=== PATIENT | female | born 1935 | race Caucasian/White ===

== ENCOUNTER → 2018-06-16 14:43 | Outpatient (CLI) | payer MEDICARE, SELFPAY ==
[2018-06-23 20:09] LABS: QNTFERON TB Ag Minus Nil Value < 0 IU/mL (.); QNTFERON TB Ag Value 0.05 IU/mL (.); QNTFERON TB Mitogen Value > 10.00 IU/mL (.); QNTFERON TB Nil Value 0.07 IU/mL (.)
[2018-06-24 11:32] LABS: QNTIFERON TB Gold Negative (Negative)
== END ==
PROVIDERS: Family Provider Internal Medicine; PCP Internal Medicine; Visit Provider Nurse Practitioner Family
DX: L40.0 Psoriasis vulgaris (principal); Z79.899 Other long term (current) drug therapy
CPT/HCPCS: 36415; 86480

== ENCOUNTER → 2020-09-06 10:15 | Outpatient (CLI) | payer MEDICARE, SELFPAY ==
[2020-09-06 12:19] LABS: Erythrocyte Sedimentation Rate 29 mm/hr (0-30)
[2020-09-06 12:22] LABS: Absolute Lymphocyte Count 2.05 X10^3/uL (0.83-4.51); Absolute Neutrophil Count 5.8 X10^3/uL (2.0-7.7); Basophil# 0.03 X10^3/uL; Basophil% 0.3 % (0-1); Eosinophils% 2.2 % (0-5); Hematocrit 39.9 % (37-47); Hemoglobin 12.1 g/dL (12.0-15.0); Lymphocyte # 2.05 X10^3/ul (4.0); Lymphocyte % 22.7 % (19-41); Mean Corp Hgb Conc 30.3 g/dL (32-36); Mean Corpuscular Hgb 28.1 pg (27.0-32.0); Mean Corpuscular Volume 92.8 fL (81-99); Mean Platelet Vol. 10.1 fl (6.2-12.0); Monocyte# 0.97 X10^3/uL; Monocyte% 10.8 % (0-10); NRBC Flagged by Analyzer 0 % (0-5); Neutrophil # 5.75 X10^3/uL (2.7-7.7); Neutrophil % 63.8 % (47-70); Platelet Count 338 K/mm3 (150-450); RBC Distribution Width CV 13.8 % (11.6-14.6); RBC Distribution Width SD 46.5 fl (35.1-43.9)
[2020-09-06 12:31] LABS: ALB/GLOB Ratio 0.7 RATIO (0.9-2.4); AST(SGOT) 11 U/L (15-37); Alanine Aminotransfer ALT/SGPT 15 U/L (13-56); Albumin, Serum 3.4 g/dL (3.2-5.0); Alkaline Phosphatase 86 U/L (45-117); Anion Gap 6 (5-15); BUN 16 mg/dL (7-18); BUN/Creat Ratio 21.1 RATIO (10-20); Chloride 98 mmol/L (98-107); Creatinine, Serum 0.76 mg/dL (0.55-1.02); EST Glomerular Filtration Rate 77 mL/min (>60); Est Glom Filt Rate - Afr Amer 93 mL/min (>60); Globulin 4.6 g/dL (2.2-4.2); Glucose 127 mg/dL (74-106); Potassium 4.5 mmol/L (3.5-5.1); Rheumatoid Factor < 10.0 IU/mL (<15); Sodium Level 133 mmol/L (136-145)
[2020-09-06 13:15] LABS: Hepatitis B Surface Antibody Non-Reactive; Hepatitis B Surface Antigen Non-Reactive (Nonreactive); Hepatitis C Antibody Non-Reactive (Nonreactive)
[2020-09-09 10:48] LABS: CCP IgG Antibodies 3 units (0-19); Hepatitis B Core AB IgM Negative (Negative)
[2020-09-09 12:51] LABS: ANTINUCLEAR ANTIBODIES DIRECT Negative (Negative)
== END ==
PROVIDERS: PCP Internal Medicine; Referring Provider Internal Medicine Rheumatology; Visit Provider Internal Medicine Rheumatology
DX: L40.59 Other psoriatic arthropathy (principal); L40.8 Other psoriasis; M19.041 Primary osteoarthritis, right hand; M21.41 Flat foot [pes planus] (acquired), right foot; I10 Essential (primary) hypertension; E11.9 Type 2 diabetes mellitus without complications; E78.5 Hyperlipidemia, unspecified
CPT/HCPCS: 36415; 80053; 85025; 85652; 86038; 86140; 86200; 86431; 86705; 86706; 86803; 87340

== ENCOUNTER → 2020-09-09 17:00 | Outpatient (CLI) | payer MEDICARE, SELFPAY ==
[2020-09-10 11:36] LABS: Pathologist Comment May follow
[2020-09-10 11:43] LABS: Synovial Fld Mononuclear WBC % 16.7 %; Synovial Fld Polynuclear WBC # 15.732 10^3/uL; Synovial Fld Polynuclear WBC % 83.3 %
[2020-09-10 11:51] LABS: RBC /Synovial Fluid 0.003 10^6/uL (0)
[2020-09-10 11:52] LABS: AUTO B FLUID DILUENT BKGD CT WBC <0.1 RBC <0.01 (W<.1,R<.01)
[2020-09-10 11:53] LABS: Appearance /Synovial Fluid Sl Cl (CLEAR); Color / Synovial Fluid Yellow (Pale Yellow); Source / Synovial Fluid KNEE; Source- Body Fluid SYNOVIAL
[2020-09-10 11:54] LABS: Lymph 2 %; Neutrophil 73 % (0-25); Other Cell /Synovial Fluid 25 %
[2020-09-11 13:38] LABS: Pathologist Review Reviewed
== END ==
PROVIDERS: PCP Internal Medicine; Visit Provider Internal Medicine Rheumatology
DX: L40.59 Other psoriatic arthropathy (principal); L40.8 Other psoriasis; M19.041 Primary osteoarthritis, right hand; M25.562 Pain in left knee; M17.0 Bilateral primary osteoarthritis of knee; M21.41 Flat foot [pes planus] (acquired), right foot; I10 Essential (primary) hypertension; E11.9 Type 2 diabetes mellitus without complications; E78.5 Hyperlipidemia, unspecified
CPT/HCPCS: 87070; 87075; 87205; 89050; 89051; 89060

== ENCOUNTER → 2020-11-05 12:22 | Outpatient (CLI) | payer MEDICARE, SELFPAY ==
[2020-11-05 15:32] LABS: Absolute Lymphocyte Count 2.07 X10^3/uL (0.83-4.51); Absolute Neutrophil Count 4.2 X10^3/uL (2.0-7.7); Basophil# 0.03 X10^3/uL; Basophil% 0.4 % (0-1); Eosinophil# 0.23 X10^3/uL; Eosinophils% 3.2 % (0-5); Hematocrit 37.7 % (37-47); Hemoglobin 11.5 g/dL (12.0-15.0); Lymphocyte # 2.07 X10^3/ul (4.0); Lymphocyte % 28.4 % (19-41); Mean Corp Hgb Conc 30.5 g/dL (32-36); Mean Corpuscular Hgb 28.3 pg (27.0-32.0); Mean Corpuscular Volume 92.9 fL (81-99); Mean Platelet Vol. 10.2 fl (6.2-12.0); Monocyte# 0.74 X10^3/uL; Monocyte% 10.2 % (0-10); NRBC Flagged by Analyzer 0 % (0-5); Neutrophil # 4.18 X10^3/uL (2.7-7.7); Neutrophil % 57.4 % (47-70); Platelet Count 335 K/mm3 (150-450); RBC Distribution Width CV 15.6 % (11.6-14.6); RBC Distribution Width SD 52.1 fl (35.1-43.9); Red Blood Count 4.06 M/mm3 (4.2-5.4); White Blood Count 7.3 K/mm3 (4.4-11.0)
[2020-11-05 15:43] LABS: ALB/GLOB Ratio 0.8 RATIO (0.9-2.4); AST(SGOT) 10 U/L (15-37); Alanine Aminotransfer ALT/SGPT 18 U/L (13-56); Albumin, Serum 3.4 g/dL (3.2-5.0); Alkaline Phosphatase 80 U/L (45-117); Anion Gap 2 (5-15); BUN 17 mg/dL (7-18); BUN/Creat Ratio 24.1 RATIO (10-20); Calcium,Total 10.2 mg/dL (8.5-10.1); Chloride 103 mmol/L (98-107); Creatinine, Serum 0.71 mg/dL (0.55-1.02); EST Glomerular Filtration Rate 84 mL/min (>60); Est Glom Filt Rate - Afr Amer 101 mL/min (>60); Globulin 4.3 g/dL (2.2-4.2); Glucose 69 mg/dL (74-106); Potassium 3.9 mmol/L (3.5-5.1); Protein, Total 7.7 g/dL (6.4-8.2); Sodium Level 136 mmol/L (136-145)
== END ==
PROVIDERS: PCP Internal Medicine; Referring Provider Internal Medicine Rheumatology; Visit Provider Internal Medicine Rheumatology
DX: L40.59 Other psoriatic arthropathy (principal); L40.8 Other psoriasis; M19.041 Primary osteoarthritis, right hand; M25.562 Pain in left knee; M17.0 Bilateral primary osteoarthritis of knee; M21.41 Flat foot [pes planus] (acquired), right foot; I10 Essential (primary) hypertension; E11.9 Type 2 diabetes mellitus without complications; E78.5 Hyperlipidemia, unspecified; Z79.899 Other long term (current) drug therapy
CPT/HCPCS: 36415; 80053; 85025

== ENCOUNTER → 2021-01-31 13:31 | Outpatient (CLI) | payer MEDICARE, SELFPAY ==
[2021-01-31 15:25] LABS: Absolute Lymphocyte Count 1.59 X10^3/uL (0.83-4.51); Absolute Neutrophil Count 4.5 X10^3/uL (2.0-7.7); Basophil# 0.03 X10^3/uL; Basophil% 0.4 % (0-1); Eosinophil# 0.18 X10^3/uL; Eosinophils% 2.7 % (0-5); Hematocrit 38.1 % (37-47); Hemoglobin 11.3 g/dL (12.0-15.0); Lymphocyte # 1.59 X10^3/ul (4.0); Lymphocyte % 23.8 % (19-41); Mean Corp Hgb Conc 29.7 g/dL (32-36); Mean Corpuscular Hgb 28.5 pg (27.0-32.0); Mean Corpuscular Volume 96.2 fL (81-99); Mean Platelet Vol. 9.9 fl (6.2-12.0); Monocyte# 0.37 X10^3/uL; Monocyte% 5.5 % (0-10); NRBC Flagged by Analyzer 0 % (0-5); Neutrophil # 4.48 X10^3/uL (2.7-7.7); Neutrophil % 67.3 % (47-70); Platelet Count 385 K/mm3 (150-450); RBC Distribution Width CV 14.6 % (11.6-14.6); RBC Distribution Width SD 51.4 fl (35.1-43.9); Red Blood Count 3.96 M/mm3 (4.2-5.4); White Blood Count 6.7 K/mm3 (4.4-11.0)
[2021-01-31 15:40] LABS: ALB/GLOB Ratio 0.8 RATIO (0.9-2.4); AST(SGOT) 13 U/L (15-37); Alanine Aminotransfer ALT/SGPT 17 U/L (13-56); Albumin, Serum 3.4 g/dL (3.2-5.0); Alkaline Phosphatase 88 U/L (45-117); Anion Gap 7 (5-15); BUN 16 mg/dL (7-18); BUN/Creat Ratio 20.5 RATIO (10-20); Calcium,Total 9.8 mg/dL (8.5-10.1); Chloride 99 mmol/L (98-107); Creatinine, Serum 0.78 mg/dL (0.55-1.02); EST Glomerular Filtration Rate 75 mL/min (>60); Est Glom Filt Rate - Afr Amer 90 mL/min (>60); Globulin 4.3 g/dL (2.2-4.2); Glucose 156 mg/dL (74-106); Potassium 3.9 mmol/L (3.5-5.1); Protein, Total 7.7 g/dL (6.4-8.2); Sodium Level 135 mmol/L (136-145)
== END ==
PROVIDERS: PCP Internal Medicine; Referring Provider Internal Medicine Rheumatology; Visit Provider Internal Medicine Rheumatology
DX: L40.59 Other psoriatic arthropathy (principal); L40.8 Other psoriasis; M19.041 Primary osteoarthritis, right hand; M17.0 Bilateral primary osteoarthritis of knee; M21.41 Flat foot [pes planus] (acquired), right foot; I10 Essential (primary) hypertension; E11.9 Type 2 diabetes mellitus without complications; E78.5 Hyperlipidemia, unspecified; Z79.899 Other long term (current) drug therapy
CPT/HCPCS: 36415; 80053; 85025

== ENCOUNTER → 2021-04-01 14:05 | Outpatient (CLI) | payer MEDICARE, SELFPAY ==
[2021-04-01 15:27] LABS: Absolute Lymphocyte Count 1.99 X10^3/uL (0.83-4.51); Absolute Neutrophil Count 3.5 X10^3/uL (2.0-7.7); Basophil# 0.03 X10^3/uL; Basophil% 0.4 % (0-1); Eosinophil# 0.31 X10^3/uL; Eosinophils% 4.6 % (0-5); Hematocrit 37.1 % (37-47); Hemoglobin 11.3 g/dL (12.0-15.0); Lymphocyte # 1.99 X10^3/ul (0.83-4.51); Lymphocyte % 29.4 % (19-41); Mean Corp Hgb Conc 30.5 g/dL (32-36); Mean Corpuscular Volume 95.1 fL (81-99); Mean Platelet Vol. 10.3 fl (6.2-12.0); Monocyte% 13.3 % (0-10); NRBC Flagged by Analyzer 0 % (0-5); Neutrophil # 3.53 X10^3/uL (2.7-7.7); Platelet Count 318 K/mm3 (150-450); RBC Distribution Width CV 14.9 % (11.6-14.6); RBC Distribution Width SD 50.6 fl (35.1-43.9); White Blood Count 6.8 K/mm3 (4.4-11.0)
[2021-04-01 16:08] LABS: ALB/GLOB Ratio 0.8 RATIO (0.9-2.4); AST(SGOT) 13 U/L (15-37); Alanine Aminotransfer ALT/SGPT 18 U/L (13-56); Albumin, Serum 3.4 g/dL (3.2-5.0); Alkaline Phosphatase 77 U/L (45-117); Anion Gap 6 (5-15); BUN 18 mg/dL (7-18); Chloride 101 mmol/L (98-107); Creatinine, Serum 0.78 mg/dL (0.55-1.02); EST Glomerular Filtration Rate 74 mL/min (>60); Est Glom Filt Rate - Afr Amer 90 mL/min (>60); Globulin 4.4 g/dL (2.2-4.2); Glucose 79 mg/dL (74-106); Potassium 4.4 mmol/L (3.5-5.1); Protein, Total 7.8 g/dL (6.4-8.2); Sodium Level 134 mmol/L (136-145)
== END ==
PROVIDERS: PCP Internal Medicine; Referring Provider Internal Medicine Rheumatology; Visit Provider Internal Medicine Rheumatology
DX: L40.59 Other psoriatic arthropathy (principal); L40.8 Other psoriasis; M19.041 Primary osteoarthritis, right hand; M17.0 Bilateral primary osteoarthritis of knee; M21.41 Flat foot [pes planus] (acquired), right foot; I10 Essential (primary) hypertension; E11.9 Type 2 diabetes mellitus without complications; E78.5 Hyperlipidemia, unspecified; Z79.899 Other long term (current) drug therapy
CPT/HCPCS: 36415; 80053; 85025

== ENCOUNTER → 2021-06-17 14:41 | Outpatient (CLI) | payer MEDICARE, SELFPAY ==
[2021-06-17 17:49] LABS: Absolute Lymphocyte Count 1.94 X10^3/uL (0.83-4.51); Absolute Neutrophil Count 2.9 X10^3/uL (2.0-7.7); Basophil# 0.04 X10^3/uL; Basophil% 0.7 % (0-1); Eosinophil# 0.17 X10^3/uL; Hematocrit 35.3 % (37-47); Hemoglobin 10.7 g/dL (12.0-15.0); Lymphocyte # 1.94 X10^3/ul (0.83-4.51); Lymphocyte % 34.6 % (19-41); Mean Corp Hgb Conc 30.3 g/dL (32-36); Mean Corpuscular Hgb 29.2 pg (27.0-32.0); Mean Corpuscular Volume 96.4 fL (81-99); Mean Platelet Vol. 9.8 fl (6.2-12.0); Monocyte# 0.59 X10^3/uL; Monocyte% 10.5 % (0-10); NRBC Flagged by Analyzer 0 % (0-5); Neutrophil # 2.85 X10^3/uL (2.7-7.7); Platelet Count 321 K/mm3 (150-450); RBC Distribution Width CV 15.6 % (11.6-14.6); RBC Distribution Width SD 55.2 fl (35.1-43.9); Red Blood Count 3.66 M/mm3 (4.2-5.4); White Blood Count 5.6 K/mm3 (4.4-11.0)
[2021-06-17 18:28] LABS: ALB/GLOB Ratio 0.9 RATIO (0.9-2.4); AST(SGOT) 21 U/L (15-37); Alanine Aminotransfer ALT/SGPT 26 U/L (13-56); Albumin, Serum 3.5 g/dL (3.2-5.0); Alkaline Phosphatase 66 U/L (45-117); Anion Gap 6 (5-15); BUN 19 mg/dL (7-18); Calcium,Total 9.9 mg/dL (8.5-10.1); Chloride 102 mmol/L (98-107); Creatinine, Serum 0.76 mg/dL (0.55-1.02); EST Glomerular Filtration Rate 77 mL/min (>60); Est Glom Filt Rate - Afr Amer 93 mL/min (>60); Globulin 3.7 g/dL (2.2-4.2); Glucose 95 mg/dL (74-106); Potassium 4.1 mmol/L (3.5-5.1); Protein, Total 7.2 g/dL (6.4-8.2); Sodium Level 137 mmol/L (136-145)
== END ==
PROVIDERS: PCP Internal Medicine; Referring Provider Internal Medicine Rheumatology; Visit Provider Internal Medicine Rheumatology
DX: L40.59 Other psoriatic arthropathy (principal); L40.8 Other psoriasis; M19.041 Primary osteoarthritis, right hand; M17.0 Bilateral primary osteoarthritis of knee; M21.41 Flat foot [pes planus] (acquired), right foot; Z79.899 Other long term (current) drug therapy
CPT/HCPCS: 36415; 80053; 85025

== ENCOUNTER → 2021-09-26 12:15 | Outpatient (CLI) | payer MEDICARE, SELFPAY ==
[2021-09-26 15:03] LABS: Absolute Lymphocyte Count 1.72 X10^3/uL (0.83-4.51); Absolute Neutrophil Count 4.7 X10^3/uL (2.0-7.7); Basophil# 0.02 X10^3/uL; Basophil% 0.3 % (0-1); Eosinophil# 0.13 X10^3/uL; Eosinophils% 1.8 % (0-5); Hematocrit 36.5 % (37-47); Hemoglobin 10.9 g/dL (12.0-15.0); Lymphocyte # 1.72 X10^3/ul (0.83-4.51); Lymphocyte % 23.2 % (19-41); Mean Corp Hgb Conc 29.9 g/dL (32-36); Mean Corpuscular Hgb 28.9 pg (27.0-32.0); Mean Corpuscular Volume 96.8 fL (81-99); Mean Platelet Vol. 10.8 fl (6.2-12.0); Monocyte# 0.79 X10^3/uL; Monocyte% 10.7 % (0-10); NRBC Flagged by Analyzer 0 % (0-5); Neutrophil # 4.72 X10^3/uL (2.7-7.7); Neutrophil % 63.7 % (47-70); POSITIVE COUNT YES; Platelet Count 200 K/mm3 (150-450); RBC Distribution Width CV 14.8 % (11.6-14.6); RBC Distribution Width SD 51.2 fl (35.1-43.9); Red Blood Count 3.77 M/mm3 (4.2-5.4); White Blood Count 7.4 K/mm3 (4.4-11.0)
[2021-09-26 15:15] LABS: ALB/GLOB Ratio 0.7 RATIO (0.9-2.4); AST(SGOT) 15 U/L (15-37); Alanine Aminotransfer ALT/SGPT 17 U/L (13-56); Alkaline Phosphatase 74 U/L (45-117); Anion Gap 4 (5-15); BUN 23 mg/dL (7-18); BUN/Creat Ratio 28.3 RATIO (10-20); Calcium,Total 9.6 mg/dL (8.5-10.1); Chloride 101 mmol/L (98-107); Creatinine, Serum 0.81 mg/dL (0.55-1.02); EST Glomerular Filtration Rate 71 mL/min (>60); Est Glom Filt Rate - Afr Amer 86 mL/min (>60); Globulin 4.1 g/dL (2.2-4.2); Glucose 119 mg/dL (74-106); Potassium 4.6 mmol/L (3.5-5.1); Protein, Total 7.1 g/dL (6.4-8.2); Sodium Level 132 mmol/L (136-145)
[2021-09-26 15:25] LABS: Differential Indicated SCAN CRITERIA MET
[2021-09-26 15:26] LABS: Platelet Estimate ADEQUATE (ADEQ); Red Cell Morphology NORM C+C NORMAL (NORM C&C)
== END ==
PROVIDERS: PCP Internal Medicine; Referring Provider Internal Medicine Rheumatology; Visit Provider Internal Medicine Rheumatology
DX: L40.59 Other psoriatic arthropathy (principal); L40.8 Other psoriasis; M19.041 Primary osteoarthritis, right hand; M17.0 Bilateral primary osteoarthritis of knee; M21.41 Flat foot [pes planus] (acquired), right foot; I10 Essential (primary) hypertension; E11.9 Type 2 diabetes mellitus without complications; E78.5 Hyperlipidemia, unspecified; Z79.899 Other long term (current) drug therapy
CPT/HCPCS: 36415; 80053; 85025

== ENCOUNTER 2021-12-05 14:29 | Outpatient (CLI) | payer MEDICARE, SELFPAY ==
[2021-12-05 17:27] LABS: Absolute Lymphocyte Count 1.59 X10^3/uL (0.83-4.51); Absolute Neutrophil Count 2.2 X10^3/uL (2.0-7.7); Basophil# 0.03 X10^3/uL; Basophil% 0.6 % (0-1); Eosinophil# 0.13 X10^3/uL; Eosinophils% 2.7 % (0-5); Hematocrit 42.6 % (37-47); Hemoglobin 12.9 g/dL (12.0-15.0); Lymphocyte # 1.59 X10^3/ul (0.83-4.51); Lymphocyte % 33.1 % (19-41); Mean Corp Hgb Conc 30.3 g/dL (32-36); Mean Corpuscular Hgb 29.2 pg (27.0-32.0); Mean Corpuscular Volume 96.4 fL (81-99); Mean Platelet Vol. 10.1 fl (6.2-12.0); Monocyte# 0.81 X10^3/uL; Monocyte% 16.8 % (0-10); NRBC Flagged by Analyzer 0 % (0-5); Neutrophil # 2.23 X10^3/uL (2.7-7.7); Neutrophil % 46.4 % (47-70); Platelet Count 305 K/mm3 (150-450); RBC Distribution Width CV 14.8 % (11.6-14.6); RBC Distribution Width SD 52.3 fl (35.1-43.9); Red Blood Count 4.42 M/mm3 (4.2-5.4); White Blood Count 4.8 K/mm3 (4.4-11.0)
[2021-12-05 17:45] LABS: ALB/GLOB Ratio 0.8 RATIO (0.9-2.4); AST(SGOT) 15 U/L (15-37); Alanine Aminotransfer ALT/SGPT 17 U/L (13-56); Albumin, Serum 3.7 g/dL (3.2-5.0); Alkaline Phosphatase 85 U/L (45-117); Anion Gap 5 (5-15); BUN 20 mg/dL (7-18); BUN/Creat Ratio 25.2 RATIO (10-20); Calcium,Total 10.3 mg/dL (8.5-10.1); Chloride 101 mmol/L (98-107); Creatinine, Serum 0.79 mg/dL (0.55-1.02); EST Glomerular Filtration Rate 73 mL/min (>60); Est Glom Filt Rate - Afr Amer 88 mL/min (>60); Globulin 4.4 g/dL (2.2-4.2); Glucose 79 mg/dL (74-106); Potassium 4.5 mmol/L (3.5-5.1); Protein, Total 8.1 g/dL (6.4-8.2); Sodium Level 133 mmol/L (136-145)
== END 2021-12-05 23:59 | disposition short-term general hospital (02) ==
LOC: MTLAB 14:30
PROVIDERS: PCP Internal Medicine; Referring Provider Internal Medicine Rheumatology; Visit Provider Internal Medicine Rheumatology
DX: L40.59 Other psoriatic arthropathy (principal); E11.9 Type 2 diabetes mellitus without complications; L40.8 Other psoriasis; M19.041 Primary osteoarthritis, right hand; M17.0 Bilateral primary osteoarthritis of knee; M21.41 Flat foot [pes planus] (acquired), right foot; M21.42 Flat foot [pes planus] (acquired), left foot; I10 Essential (primary) hypertension; E78.5 Hyperlipidemia, unspecified; Z79.899 Other long term (current) drug therapy
CPT/HCPCS: 36415; 80053; 85025

== ENCOUNTER 2022-02-23 12:34 | Outpatient (CLI) | payer MEDICARE, SELFPAY ==
[2022-02-23 15:00] LABS: Absolute Lymphocyte Count 1.94 X10^3/uL (0.83-4.51); Absolute Neutrophil Count 3.7 X10^3/uL (2.0-7.7); Basophil# 0.04 X10^3/uL; Basophil% 0.6 % (0-1); Eosinophil# 0.14 X10^3/uL; Eosinophils% 2.2 % (0-5); Hematocrit 37.6 % (37-47); Hemoglobin 11.8 g/dL (12.0-15.0); Lymphocyte # 1.94 X10^3/ul (0.83-4.51); Lymphocyte % 29.8 % (19-41); Mean Corp Hgb Conc 31.4 g/dL (32-36); Mean Corpuscular Hgb 30.6 pg (27.0-32.0); Mean Corpuscular Volume 97.4 fL (81-99); Mean Platelet Vol. 9.9 fl (6.2-12.0); Monocyte# 0.66 X10^3/uL; Monocyte% 10.1 % (0-10); NRBC Flagged by Analyzer 0 % (0-5); Neutrophil # 3.71 X10^3/uL (2.7-7.7); Platelet Count 260 K/mm3 (150-450); RBC Distribution Width CV 15.3 % (11.6-14.6); RBC Distribution Width SD 54.6 fl (35.1-43.9); Red Blood Count 3.86 M/mm3 (4.2-5.4); White Blood Count 6.5 K/mm3 (4.4-11.0)
[2022-02-23 15:46] LABS: AST(SGOT) 14 U/L (15-37); Alanine Aminotransfer ALT/SGPT 20 U/L (13-56); Albumin, Serum 3.7 g/dL (3.2-5.0); Alkaline Phosphatase 76 U/L (45-117); Anion Gap 4 (5-15); BUN 22 mg/dL (7-18); BUN/Creat Ratio 28.4 RATIO (10-20); Calcium,Total 9.5 mg/dL (8.5-10.1); Chloride 101 mmol/L (98-107); Creatinine, Serum 0.78 mg/dL (0.55-1.02); EST Glomerular Filtration Rate 75 mL/min (>60); Est Glom Filt Rate - Afr Amer 91 mL/min (>60); Globulin 3.8 g/dL (2.2-4.2); Glucose 86 mg/dL (74-106); Potassium 4.4 mmol/L (3.5-5.1); Protein, Total 7.5 g/dL (6.4-8.2); Sodium Level 135 mmol/L (136-145)
== END 2022-02-23 23:59 | disposition home or self-care (01) ==
LOC: MTLAB 12:35
PROVIDERS: PCP Internal Medicine; Referring Provider Internal Medicine Rheumatology; Visit Provider Internal Medicine Rheumatology
DX: L40.59 Other psoriatic arthropathy (principal); E11.9 Type 2 diabetes mellitus without complications; L40.8 Other psoriasis; M19.041 Primary osteoarthritis, right hand; M17.0 Bilateral primary osteoarthritis of knee; M21.41 Flat foot [pes planus] (acquired), right foot; I10 Essential (primary) hypertension; Z79.899 Other long term (current) drug therapy
CPT/HCPCS: 36415; 80053; 85025

== ENCOUNTER → 2022-05-27 | Outpatient (CLI) | payer MEDICARE, SELFPAY ==
[2022-05-27 15:25] LABS: Absolute Lymphocyte Count 1.43 X10^3/uL (0.83-4.51); Absolute Neutrophil Count 4.3 X10^3/uL (2.0-7.7); Basophil# 0.03 X10^3/uL; Basophil% 0.4 % (0-1); Eosinophil# 0.15 X10^3/uL; Eosinophils% 2.2 % (0-5); Hematocrit 37.8 % (37-47); Hemoglobin 11.6 g/dL (12.0-15.0); Lymphocyte # 1.43 X10^3/ul (0.83-4.51); Lymphocyte % 21.1 % (19-41); Mean Corp Hgb Conc 30.7 g/dL (32-36); Mean Corpuscular Hgb 31.9 pg (27.0-32.0); Mean Corpuscular Volume 103.8 fL (81-99); Mean Platelet Vol. 10.2 fl (6.2-12.0); Monocyte# 0.81 X10^3/uL; NRBC Flagged by Analyzer 0 % (0-5); Neutrophil # 4.33 X10^3/uL (2.7-7.7); Platelet Count 255 K/mm3 (150-450); RBC Distribution Width CV 13.4 % (11.6-14.6); RBC Distribution Width SD 51.5 fl (35.1-43.9); Red Blood Count 3.64 M/mm3 (4.2-5.4); White Blood Count 6.8 K/mm3 (4.4-11.0)
[2022-05-27 16:04] LABS: AST(SGOT) 14 U/L (15-37); Alanine Aminotransfer ALT/SGPT 17 U/L (13-56); Albumin, Serum 3.6 g/dL (3.2-5.0); Alkaline Phosphatase 91 U/L (45-117); Anion Gap 4 (5-15); BUN 14 mg/dL (7-18); BUN/Creat Ratio 18.3 RATIO (10-20); Calcium,Total 9.7 mg/dL (8.5-10.1); Chloride 101 mmol/L (98-107); Creatinine, Serum 0.76 mg/dL (0.55-1.02); EST Glomerular Filtration Rate 76 mL/min (>60); Est Glom Filt Rate - Afr Amer 92 mL/min (>60); Globulin 3.6 g/dL (2.2-4.2); Glucose 81 mg/dL (74-106); Potassium 4.4 mmol/L (3.5-5.1); Protein, Total 7.2 g/dL (6.4-8.2); Sodium Level 133 mmol/L (136-145)
== END | disposition home or self-care (01) ==
LOC: MTLAB 13:26
PROVIDERS: PCP Internal Medicine; Referring Provider Internal Medicine Rheumatology; Visit Provider Internal Medicine Rheumatology
DX: L40.59 Other psoriatic arthropathy (principal); E11.9 Type 2 diabetes mellitus without complications; L40.8 Other psoriasis; M19.041 Primary osteoarthritis, right hand; M17.0 Bilateral primary osteoarthritis of knee; M21.41 Flat foot [pes planus] (acquired), right foot; I10 Essential (primary) hypertension; E78.5 Hyperlipidemia, unspecified; Z79.899 Other long term (current) drug therapy
CPT/HCPCS: 36415; 80053; 85025

== ENCOUNTER → 2022-06-01 | Outpatient (CLI) | payer MEDICARE, SELFPAY ==
[2022-06-01 19:06] LABS: Vitamin B12 215 pg/mL (211-911)
[2022-06-01 21:39] LABS: Ferritin 67 ng/mL (8-252); Iron 58 ug/dL (50-170); Thyroid Stim Hormone (TSH) 2.34 uIU/mL (0.358-3.74)
[2022-06-01 23:31] LABS: Folates, (Folic Acid) > 100.00 ng/mL (3.1-55.4)
[2022-06-05 07:56] LABS: Vitamin D 1,25-Dihydroxy 61.5 pg/mL (24.8-81.5)
[2022-06-08 07:07] LABS: Vitamin B1, Thiamine 112.2 nmol/L (66.5-200.0)
[2022-06-08 08:32] LABS: KEPPRA (LEVETIRACETAM) <1.0 ug/mL (10.0-40.0)
== END | disposition home or self-care (01) ==
PROVIDERS: PCP Internal Medicine; Referring Provider Psychiatry & Neurology Neurology; Visit Provider Psychiatry & Neurology Neurology
DX: Z86.2 Personal history of diseases of the blood and blood-forming organs and certain disorders involving the immune mechanism (principal); E55.9 Vitamin D deficiency, unspecified; G62.9 Polyneuropathy, unspecified
CPT/HCPCS: 36415; 80177; 82607; 82652; 82728; 82746; 83540; 84425; 84443

== ENCOUNTER → 2022-06-12 | Outpatient (CLI) | payer MEDICARE, SELFPAY ==
--- NOTE | 2022-06-12 15:28 | MRI_ITS ---
STUDY: MRI BRAIN WITH AND WITHOUT CONTRAST REASON FOR EXAM: Female, 86 years old. Evaluate for normal pressure hydrocephalus TECHNIQUE: Standardized multiplanar fat and water weighted pulse sequences were obtained. 13CC IV DOTAREM was administered for the contrast portion of the examination. COMPARISON: None. FINDINGS: No intracranial mass, mass effect or midline shift. No hemorrhage, territorial infarct or acute ischemia. There is mild cerebral atrophy with widening of the extra-axial spaces and ventricular dilatation. There are a limited number of small white matter hyperintensities, distributed throughout the deep white matter tracts of the cerebral hemispheres, consistent with mild chronic white matter ischemic changes. Normal bilateral basal ganglia. Normal thalami. There is no extra-axial fluid accumulation. Normal flow voids within the major intracranial circulation suggesting patency by spin echo criteria. There is no enhancing intra-axial or extra-axial abnormality. Normal sella turcica, pituitary gland, infundibular stalk, optic chiasm and hypothalamus. Normal midbrain, olga lidia and medulla. Normal cerebellum. Normal basal cisterns. Normal bilateral temporal bones. Normal bilateral internal auditory canals. Mild mucosal thickening in the maxillary sinuses. Normal calvarium and skull base. Normal visualized soft tissue structures. MRI/Brain W/WO Contrast IMPRESSION: No acute findings. No evidence of normal pressure hydrocephalus. Mild microvascular ischemic changes. Involutional changes consistent with the patient''s age. Electronically Signed: Kasandra Howard MD at 23:34 EDT Reading Location ID and State: [id number] / Tel , Service support ,
== END | disposition home or self-care (01) ==
LOC: MRI 15:28
PROVIDERS: PCP Internal Medicine; Visit Provider Psychiatry & Neurology Neurology
DX: R26.9 Unspecified abnormalities of gait and mobility (principal); G31.84 Mild cognitive impairment of uncertain or unknown etiology
CPT/HCPCS: 70553; A9575

== ENCOUNTER → 2022-08-24 | Outpatient (CLI) | payer MEDICARE, SELFPAY ==
[2022-08-24 15:44] LABS: Absolute Lymphocyte Count 1.68 X10^3/uL (0.83-4.51); Absolute Neutrophil Count 2.9 X10^3/uL (2.0-7.7); Basophil# 0.02 X10^3/uL; Basophil% 0.4 % (0-1); Hematocrit 37.8 % (37-47); Hemoglobin 11.6 g/dL (12.0-15.0); Lymphocyte # 1.68 X10^3/ul (0.83-4.51); Mean Corp Hgb Conc 30.7 g/dL (32-36); Mean Corpuscular Hgb 31.3 pg (27.0-32.0); Mean Corpuscular Volume 101.9 fL (81-99); Mean Platelet Vol. 9.9 fl (6.2-12.0); Monocyte# 0.42 X10^3/uL; Monocyte% 8.3 % (0-10); NRBC Flagged by Analyzer 0 % (0-5); Neutrophil # 2.86 X10^3/uL (2.7-7.7); Neutrophil % 56.1 % (47-70); Platelet Count 278 K/mm3 (150-450); RBC Distribution Width CV 14.4 % (11.6-14.6); RBC Distribution Width SD 51.7 fl (35.1-43.9); Red Blood Count 3.71 M/mm3 (4.2-5.4); White Blood Count 5.1 K/mm3 (4.4-11.0)
[2022-08-24 16:48] LABS: ALB/GLOB Ratio 0.9 RATIO (0.9-2.4); AST(SGOT) 37 U/L (15-37); Alanine Aminotransfer ALT/SGPT 39 U/L (13-56); Albumin, Serum 3.7 g/dL (3.2-5.0); Alkaline Phosphatase 82 U/L (45-117); Anion Gap 4 (5-15); BUN 17 mg/dL (7-18); BUN/Creat Ratio 23.6 RATIO (10-20); Calcium,Total 11.1 mg/dL (8.5-10.1); Chloride 102 mmol/L (98-107); Creatinine, Serum 0.72 mg/dL (0.55-1.02); EST Glomerular Filtration Rate 82 mL/min (>60); Est Glom Filt Rate - Afr Amer 99 mL/min (>60); Globulin 3.9 g/dL (2.2-4.2); Glucose 86 mg/dL (74-106); Potassium 4.1 mmol/L (3.5-5.1); Protein, Total 7.6 g/dL (6.4-8.2); Sodium Level 135 mmol/L (136-145)
== END | disposition home or self-care (01) ==
LOC: MTLAB 13:29
PROVIDERS: PCP Internal Medicine; Referring Provider Internal Medicine Rheumatology; Visit Provider Internal Medicine Rheumatology
DX: L40.59 Other psoriatic arthropathy (principal); E11.9 Type 2 diabetes mellitus without complications; L40.8 Other psoriasis; M19.041 Primary osteoarthritis, right hand; M17.0 Bilateral primary osteoarthritis of knee; M21.41 Flat foot [pes planus] (acquired), right foot; I10 Essential (primary) hypertension; E78.5 Hyperlipidemia, unspecified; Z79.899 Other long term (current) drug therapy
CPT/HCPCS: 36415; 80053; 85025

== ENCOUNTER → 2022-12-24 | Outpatient (CLI) | payer MEDICARE, SELFPAY ==
[2022-12-24 15:17] LABS: Absolute Neutrophil Count 3.6 X10^3/uL (2.0-7.7); Basophil# 0.04 X10^3/uL; Basophil% 0.6 % (0-1); Eosinophil# 0.12 X10^3/uL; Eosinophils% 1.9 % (0-5); Hematocrit 41.4 % (37-47); Hemoglobin 12.8 g/dL (12.0-15.0); Lymphocyte % 28.4 % (19-41); Mean Corp Hgb Conc 30.9 g/dL (32-36); Mean Corpuscular Hgb 31.1 pg (27.0-32.0); Mean Corpuscular Volume 100.5 fL (81-99); Mean Platelet Vol. 10.6 fl (6.2-12.0); Monocyte# 0.75 X10^3/uL; Monocyte% 11.8 % (0-10); NRBC Flagged by Analyzer 0 % (0-5); Neutrophil # 3.61 X10^3/uL (2.7-7.7); Neutrophil % 57.1 % (47-70); Platelet Count 275 K/mm3 (150-450); RBC Distribution Width CV 12.7 % (11.6-14.6); RBC Distribution Width SD 46.7 fl (35.1-43.9); Red Blood Count 4.12 M/mm3 (4.2-5.4); White Blood Count 6.3 K/mm3 (4.4-11.0)
[2022-12-24 15:44] LABS: AST(SGOT) 17 U/L (15-37); Alanine Aminotransfer ALT/SGPT 15 U/L (13-56); Albumin, Serum 3.8 g/dL (3.2-5.0); Alkaline Phosphatase 86 U/L (45-117); Anion Gap 7 (5-15); BUN 23 mg/dL (7-18); BUN/Creat Ratio 28.3 RATIO (10-20); Calcium,Total 9.9 mg/dL (8.5-10.1); Chloride 100 mmol/L (98-107); Creatinine, Serum 0.81 mg/dL (0.55-1.02); EST Glomerular Filtration Rate 71 mL/min (>60); Est Glom Filt Rate - Afr Amer 86 mL/min (>60); Globulin 3.7 g/dL (2.2-4.2); Glucose 91 mg/dL (74-106); Potassium 4.3 mmol/L (3.5-5.1); Protein, Total 7.5 g/dL (6.4-8.2); Sodium Level 135 mmol/L (136-145)
== END | disposition home or self-care (01) ==
LOC: MTLAB 12:54
PROVIDERS: PCP Internal Medicine; Referring Provider Internal Medicine Rheumatology; Visit Provider Internal Medicine Rheumatology
DX: L40.59 Other psoriatic arthropathy (principal); E11.9 Type 2 diabetes mellitus without complications; I10 Essential (primary) hypertension; E78.5 Hyperlipidemia, unspecified; Z79.899 Other long term (current) drug therapy
CPT/HCPCS: 36415; 80053; 85025

== ENCOUNTER → 2023-02-02 | Outpatient (CLI) | payer MEDICARE, SELFPAY ==
[2023-02-04 17:07] LABS: Free Kappa Light Chains 49.4 mg/L (3.3-19.4)
== END | disposition home or self-care (01) ==
LOC: MTLAB 16:21
PROVIDERS: PCP Internal Medicine; Referring Provider Psychiatry & Neurology Neurology; Visit Provider Psychiatry & Neurology Neurology
DX: G62.9 Polyneuropathy, unspecified (principal)
CPT/HCPCS: 36415; 83883

== ENCOUNTER → 2023-03-15 | Outpatient (CLI) | payer MEDICARE, SELFPAY ==
[2023-03-15 15:14] LABS: Absolute Lymphocyte Count 1.76 X10^3/uL (0.83-4.51); Absolute Neutrophil Count 2.9 X10^3/uL (2.0-7.7); Basophil# 0.04 X10^3/uL; Basophil% 0.7 % (0-1); Eosinophil# 0.15 X10^3/uL; Eosinophils% 2.7 % (0-5); Hematocrit 40.1 % (37-47); Hemoglobin 12.4 g/dL (12.0-15.0); Lymphocyte # 1.76 X10^3/ul (0.83-4.51); Lymphocyte % 32.2 % (19-41); Mean Corp Hgb Conc 30.9 g/dL (32-36); Mean Corpuscular Hgb 31.2 pg (27.0-32.0); Mean Platelet Vol. 10.3 fl (6.2-12.0); Monocyte# 0.62 X10^3/uL; Monocyte% 11.4 % (0-10); NRBC Flagged by Analyzer 0 % (0-5); Neutrophil # 2.88 X10^3/uL (2.7-7.7); Neutrophil % 52.8 % (47-70); Platelet Count 235 K/mm3 (150-450); RBC Distribution Width CV 13.6 % (11.6-14.6); RBC Distribution Width SD 49.8 fl (35.1-43.9); Red Blood Count 3.97 M/mm3 (4.2-5.4); White Blood Count 5.5 K/mm3 (4.4-11.0)
[2023-03-15 15:35] LABS: ALB/GLOB Ratio 0.9 RATIO (0.9-2.4); AST(SGOT) 18 U/L (15-37); Alanine Aminotransfer ALT/SGPT 17 U/L (13-56); Albumin, Serum 3.5 g/dL (3.2-5.0); Alkaline Phosphatase 84 U/L (45-117); Anion Gap 5 (5-15); BUN 18 mg/dL (7-18); BUN/Creat Ratio 24.4 RATIO (10-20); Calcium,Total 9.8 mg/dL (8.5-10.1); Chloride 103 mmol/L (98-107); Creatinine, Serum 0.74 mg/dL (0.55-1.02); EST Glomerular Filtration Rate 79 mL/min (>60); Est Glom Filt Rate - Afr Amer 96 mL/min (>60); Globulin 3.7 g/dL (2.2-4.2); Glucose 91 mg/dL (74-106); Potassium 4.5 mmol/L (3.5-5.1); Protein, Total 7.2 g/dL (6.4-8.2); Sodium Level 135 mmol/L (136-145)
== END | disposition home or self-care (01) ==
LOC: MTLAB 12:45
PROVIDERS: PCP Internal Medicine; Referring Provider Internal Medicine Rheumatology; Visit Provider Internal Medicine Rheumatology
DX: L40.59 Other psoriatic arthropathy (principal); Z79.899 Other long term (current) drug therapy
CPT/HCPCS: 36415; 80053; 85025

== ENCOUNTER → 2023-06-08 | Outpatient (CLI) | payer MEDICARE, SELFPAY ==
[2023-06-11 10:09] LABS: Alpha-1-Globulins 0.2 g/dL (0.0-0.4); Alpha-2-Globulins 0.9 g/dL (0.4-1.0); Gamma Globulin 1.2 g/dL (0.4-1.8); Immunoglobulin A 204 mg/dL (64-422); Immunoglobulin G 1225 mg/dL (586-1602); Immunoglobulin M 120 mg/dL (26-217); PROEL- TOTAL PROTEIN 7.1 g/dL (6.0-8.5)
== END | disposition home or self-care (01) ==
LOC: MTLAB 14:46
PROVIDERS: PCP Internal Medicine; Referring Provider Psychiatry & Neurology Neurology; Visit Provider Psychiatry & Neurology Neurology
DX: G62.9 Polyneuropathy, unspecified (principal)
CPT/HCPCS: 36415; 82784; 84165; 86334; 86335

== ENCOUNTER → 2023-07-16 | Outpatient (CLI) | payer MEDICARE, SELFPAY ==
[2023-07-16 15:07] LABS: Absolute Lymphocyte Count 1.94 X10^3/uL (0.83-4.51); Absolute Neutrophil Count 3.5 X10^3/uL (2.0-7.7); Basophil# 0.05 X10^3/uL; Basophil% 0.8 % (0-1); Eosinophils% 3.1 % (0-5); Hemoglobin 13.1 g/dL (12.0-15.0); Lymphocyte # 1.94 X10^3/ul (0.83-4.51); Mean Corp Hgb Conc 30.5 g/dL (32-36); Mean Corpuscular Hgb 30.5 pg (27.0-32.0); Mean Platelet Vol. 10.4 fl (6.2-12.0); Monocyte# 0.79 X10^3/uL; Monocyte% 12.2 % (0-10); NRBC Flagged by Analyzer 0 % (0-5); Neutrophil # 3.45 X10^3/uL (2.7-7.7); Neutrophil % 53.4 % (47-70); Platelet Count 298 K/mm3 (150-450); RBC Distribution Width SD 47.9 fl (35.1-43.9); White Blood Count 6.5 K/mm3 (4.4-11.0)
[2023-07-16 15:22] LABS: AST(SGOT) 16 U/L (15-37); Alanine Aminotransfer ALT/SGPT 21 U/L (13-56); Albumin, Serum 3.9 g/dL (3.2-5.0); Alkaline Phosphatase 86 U/L (45-117); Anion Gap 4 (5-15); BUN 20 mg/dL (7-18); BUN/Creat Ratio 25.3 RATIO (10-20); Calcium,Total 10.1 mg/dL (8.5-10.1); Chloride 100 mmol/L (98-107); Creatinine, Serum 0.79 mg/dL (0.55-1.02); EST Glomerular Filtration Rate 73 mL/min (>60); Est Glom Filt Rate - Afr Amer 89 mL/min (>60); Glucose 97 mg/dL (74-106); Potassium 5.1 mmol/L (3.5-5.1); Protein, Total 7.9 g/dL (6.4-8.2); Sodium Level 133 mmol/L (136-145)
== END | disposition home or self-care (01) ==
LOC: MTLAB 12:34
PROVIDERS: PCP Internal Medicine; Referring Provider Internal Medicine Rheumatology; Visit Provider Internal Medicine Rheumatology
DX: L40.59 Other psoriatic arthropathy (principal); Z79.899 Other long term (current) drug therapy
CPT/HCPCS: 36415; 80053; 85025

== ENCOUNTER → 2023-10-14 | Outpatient (CLI) | payer MEDICARE, SELFPAY ==
[2023-10-14 15:26] LABS: Absolute Lymphocyte Count 1.79 X10^3/uL (0.83-4.51); Absolute Neutrophil Count 4.8 X10^3/uL (2.0-7.7); Basophil# 0.04 X10^3/uL; Basophil% 0.5 % (0-1); Eosinophils% 2.6 % (0-5); Hematocrit 40.5 % (37-47); Hemoglobin 12.4 g/dL (12.0-15.0); Lymphocyte # 1.79 X10^3/ul (0.83-4.51); Lymphocyte % 23.5 % (19-41); Mean Corp Hgb Conc 30.6 g/dL (32-36); Mean Corpuscular Hgb 30.5 pg (27.0-32.0); Mean Corpuscular Volume 99.5 fL (81-99); Mean Platelet Vol. 10.2 fl (6.2-12.0); Monocyte# 0.83 X10^3/uL; Monocyte% 10.9 % (0-10); NRBC Flagged by Analyzer 0 % (0-5); Neutrophil # 4.75 X10^3/uL (2.7-7.7); Neutrophil % 62.2 % (47-70); Platelet Count 259 K/mm3 (150-450); RBC Distribution Width CV 14.1 % (11.6-14.6); RBC Distribution Width SD 51.2 fl (35.1-43.9); Red Blood Count 4.07 M/mm3 (4.2-5.4); White Blood Count 7.6 K/mm3 (4.4-11.0)
[2023-10-14 15:41] LABS: ALB/GLOB Ratio 0.9 RATIO (0.9-2.4); AST(SGOT) 19 U/L (15-37); Alanine Aminotransfer ALT/SGPT 24 U/L (13-56); Albumin, Serum 3.7 g/dL (3.2-5.0); Alkaline Phosphatase 74 U/L (45-117); Anion Gap 7 (5-15); BUN 21 mg/dL (7-18); BUN/Creat Ratio 25.9 RATIO (10-20); Calcium,Total 9.4 mg/dL (8.5-10.1); Chloride 102 mmol/L (98-107); Creatinine, Serum 0.81 mg/dL (0.55-1.02); EST Glomerular Filtration Rate 71 mL/min (>60); Est Glom Filt Rate - Afr Amer 86 mL/min (>60); Globulin 3.9 g/dL (2.2-4.2); Glucose 94 mg/dL (74-106); Potassium 4.6 mmol/L (3.5-5.1); Protein, Total 7.6 g/dL (6.4-8.2); Sodium Level 137 mmol/L (136-145)
== END | disposition home or self-care (01) ==
LOC: MTLAB 12:35
PROVIDERS: PCP Internal Medicine; Visit Provider Internal Medicine Rheumatology
DX: L40.59 Other psoriatic arthropathy (principal); L40.8 Other psoriasis; Z79.899 Other long term (current) drug therapy
CPT/HCPCS: 36415; 80053; 85025

== ENCOUNTER → 2024-01-20 | Outpatient (CLI) | payer MEDICARE, SELFPAY ==
[2024-01-20 15:35] LABS: Absolute Lymphocyte Count 1.92 X10^3/uL (0.83-4.51); Basophil# 0.04 X10^3/uL; Basophil% 0.6 % (0-1); Eosinophil# 0.15 X10^3/uL; Eosinophils% 2.2 % (0-5); Hemoglobin 12.2 g/dL (12.0-15.0); Lymphocyte # 1.92 X10^3/ul (0.83-4.51); Lymphocyte % 27.6 % (19-41); Mean Corp Hgb Conc 30.5 g/dL (32-36); Mean Corpuscular Hgb 30.7 pg (27.0-32.0); Mean Corpuscular Volume 100.8 fL (81-99); Mean Platelet Vol. 10.5 fl (6.2-12.0); Monocyte# 0.87 X10^3/uL; Monocyte% 12.5 % (0-10); NRBC Flagged by Analyzer 0 % (0-5); Neutrophil # 3.96 X10^3/uL (2.7-7.7); Neutrophil % 56.8 % (47-70); Platelet Count 270 K/mm3 (150-450); RBC Distribution Width CV 13.2 % (11.6-14.6); RBC Distribution Width SD 48.4 fl (35.1-43.9); Red Blood Count 3.97 M/mm3 (4.2-5.4)
[2024-01-20 16:04] LABS: AST(SGOT) 15 U/L (15-37); Alanine Aminotransfer ALT/SGPT 22 U/L (13-56); Albumin, Serum 3.7 g/dL (3.2-5.0); Alkaline Phosphatase 72 U/L (45-117); Anion Gap 6 (5-15); BUN 24 mg/dL (7-18); BUN/Creat Ratio 28.8 RATIO (10-20); Calcium,Total 9.9 mg/dL (8.5-10.1); Chloride 101 mmol/L (98-107); Creatinine, Serum 0.83 mg/dL (0.55-1.02); EST Glomerular Filtration Rate 69 mL/min (>60); Est Glom Filt Rate - Afr Amer 83 mL/min (>60); Globulin 3.7 g/dL (2.2-4.2); Glucose 96 mg/dL (74-106); Protein, Total 7.4 g/dL (6.4-8.2); Sodium Level 135 mmol/L (136-145)
== END | disposition home or self-care (01) ==
LOC: MTLAB 12:42
PROVIDERS: PCP Internal Medicine; Referring Provider Internal Medicine Rheumatology; Visit Provider Internal Medicine Rheumatology
DX: L40.59 Other psoriatic arthropathy (principal); Z79.899 Other long term (current) drug therapy
CPT/HCPCS: 36415; 80053; 85025

== ENCOUNTER → 2024-05-05 | Outpatient (CLI) | payer MEDICARE, SELFPAY ==
[2024-05-05 15:16] LABS: Absolute Lymphocyte Count 1.66 X10^3/uL (0.83-4.51); Absolute Neutrophil Count 4.3 X10^3/uL (2.0-7.7); Basophil# 0.03 X10^3/uL; Basophil% 0.4 % (0-1); Eosinophil# 0.13 X10^3/uL; Eosinophils% 1.9 % (0-5); Hematocrit 38.8 % (37-47); Lymphocyte # 1.66 X10^3/ul (0.83-4.51); Lymphocyte % 24.6 % (19-41); Mean Corp Hgb Conc 30.9 g/dL (32-36); Mean Corpuscular Hgb 30.6 pg (27.0-32.0); Mean Platelet Vol. 10.2 fl (6.2-12.0); Monocyte# 0.66 X10^3/uL; Monocyte% 9.8 % (0-10); NRBC Flagged by Analyzer 0 % (0-5); Neutrophil # 4.25 X10^3/uL (2.7-7.7); Neutrophil % 63.2 % (47-70); Platelet Count 290 K/mm3 (150-450); RBC Distribution Width CV 13.6 % (11.6-14.6); RBC Distribution Width SD 48.4 fl (35.1-43.9); Red Blood Count 3.92 M/mm3 (4.2-5.4); White Blood Count 6.7 K/mm3 (4.4-11.0)
[2024-05-05 15:59] LABS: ALB/GLOB Ratio 0.9 RATIO (0.9-2.4); AST(SGOT) 21 U/L (15-37); Alanine Aminotransfer ALT/SGPT 24 U/L (13-56); Albumin, Serum 3.7 g/dL (3.2-5.0); Alkaline Phosphatase 76 U/L (45-117); Anion Gap 9 (5-15); BUN 19 mg/dL (7-18); BUN/Creat Ratio 24.6 RATIO (10-20); Calcium,Total 9.7 mg/dL (8.5-10.1); Chloride 97 mmol/L (98-107); Creatinine, Serum 0.77 mg/dL (0.55-1.02); EST Glomerular Filtration Rate 75 mL/min (>60); Est Glom Filt Rate - Afr Amer 91 mL/min (>60); Globulin 3.9 g/dL (2.2-4.2); Glucose 99 mg/dL (74-106); Potassium 4.2 mmol/L (3.5-5.1); Protein, Total 7.6 g/dL (6.4-8.2); Sodium Level 133 mmol/L (136-145)
== END | disposition home or self-care (01) ==
LOC: MTLAB 13:42
PROVIDERS: PCP Internal Medicine; Referring Provider Internal Medicine Rheumatology; Visit Provider Internal Medicine Rheumatology
DX: L40.59 Other psoriatic arthropathy (principal); Z79.899 Other long term (current) drug therapy
CPT/HCPCS: 36415; 80053; 85025

== ENCOUNTER → 2024-08-02 | Outpatient (CLI) | payer MEDICARE, SELFPAY ==
[2024-08-02 17:39] LABS: Absolute Lymphocyte Count 1.94 X10^3/uL (0.83-4.51); Absolute Neutrophil Count 3.4 X10^3/uL (2.0-7.7); Basophil# 0.04 X10^3/uL; Basophil% 0.6 % (0-1); Eosinophil# 0.21 X10^3/uL; Eosinophils% 3.3 % (0-5); Hematocrit 38.7 % (37-47); Hemoglobin 11.9 g/dL (12.0-15.0); Lymphocyte # 1.94 X10^3/ul (0.83-4.51); Lymphocyte % 30.6 % (19-41); Mean Corp Hgb Conc 30.7 g/dL (32-36); Mean Corpuscular Hgb 30.4 pg (27.0-32.0); Mean Platelet Vol. 10.1 fl (6.2-12.0); Monocyte# 0.78 X10^3/uL; Monocyte% 12.3 % (0-10); NRBC Flagged by Analyzer 0 % (0-5); Neutrophil # 3.35 X10^3/uL (2.7-7.7); Neutrophil % 52.7 % (47-70); Platelet Count 266 K/mm3 (150-450); RBC Distribution Width CV 14.2 % (11.6-14.6); RBC Distribution Width SD 50.8 fl (35.1-43.9); Red Blood Count 3.91 M/mm3 (4.2-5.4); White Blood Count 6.4 K/mm3 (4.4-11.0)
[2024-08-02 17:55] LABS: AST(SGOT) 16 U/L (15-37); Alanine Aminotransfer ALT/SGPT 19 U/L (13-56); Albumin, Serum 3.7 g/dL (3.2-5.0); Alkaline Phosphatase 76 U/L (45-117); Anion Gap 6 (5-15); BUN 16 mg/dL (7-18); BUN/Creat Ratio 20.1 RATIO (10-20); Calcium,Total 9.9 mg/dL (8.5-10.1); Chloride 98 mmol/L (98-107); EST Glomerular Filtration Rate 72 mL/min (>60); Est Glom Filt Rate - Afr Amer 87 mL/min (>60); Globulin 3.6 g/dL (2.2-4.2); Glucose 63 mg/dL (74-106); Protein, Total 7.3 g/dL (6.4-8.2); Sodium Level 131 mmol/L (136-145)
== END | disposition home or self-care (01) ==
LOC: MTLAB 14:15
PROVIDERS: PCP Internal Medicine; Referring Provider Internal Medicine Rheumatology; Visit Provider Internal Medicine Rheumatology
DX: L40.59 Other psoriatic arthropathy (principal); Z79.899 Other long term (current) drug therapy
CPT/HCPCS: 36415; 80053; 85025

== ENCOUNTER → 2024-10-17 | Outpatient (CLI) | payer MEDICARE, SELFPAY ==
[2024-10-17 15:31] LABS: Absolute Lymphocyte Count 1.73 X10^3/uL (0.83-4.51); Absolute Neutrophil Count 3.7 X10^3/uL (2.0-7.7); Basophil# 0.04 X10^3/uL; Basophil% 0.6 % (0-1); Hematocrit 39.6 % (37-47); Lymphocyte # 1.73 X10^3/ul (0.83-4.51); Mean Corp Hgb Conc 30.3 g/dL (32-36); Mean Corpuscular Hgb 29.9 pg (27.0-32.0); Mean Corpuscular Volume 98.8 fL (81-99); Mean Platelet Vol. 10.3 fl (6.2-12.0); Monocyte# 0.93 X10^3/uL; NRBC Flagged by Analyzer 0 % (0-5); Neutrophil # 3.74 X10^3/uL (2.7-7.7); Neutrophil % 56.1 % (47-70); Platelet Count 316 K/mm3 (150-450); RBC Distribution Width CV 13.6 % (11.6-14.6); RBC Distribution Width SD 48.4 fl (35.1-43.9); Red Blood Count 4.01 M/mm3 (4.2-5.4); White Blood Count 6.7 K/mm3 (4.4-11.0)
[2024-10-17 15:50] LABS: ALB/GLOB Ratio 0.9 RATIO (0.9-2.4); AST(SGOT) 13 U/L (15-37); Alanine Aminotransfer ALT/SGPT 19 U/L (13-56); Albumin, Serum 3.6 g/dL (3.2-5.0); Alkaline Phosphatase 90 U/L (45-117); Anion Gap 7 (5-15); BUN 19 mg/dL (7-18); BUN/Creat Ratio 24.7 RATIO (10-20); Calcium,Total 10.1 mg/dL (8.5-10.1); Chloride 97 mmol/L (98-107); Creatinine, Serum 0.77 mg/dL (0.55-1.02); EST Glomerular Filtration Rate 75 mL/min (>60); Est Glom Filt Rate - Afr Amer 91 mL/min (>60); Globulin 4.2 g/dL (2.2-4.2); Glucose 84 mg/dL (74-106); Potassium 4.2 mmol/L (3.5-5.1); Protein, Total 7.8 g/dL (6.4-8.2); Sodium Level 130 mmol/L (136-145)
== END | disposition home or self-care (01) ==
LOC: MTLAB 12:34
PROVIDERS: PCP Internal Medicine; Referring Provider Internal Medicine Rheumatology; Visit Provider Internal Medicine Rheumatology
DX: L40.59 Other psoriatic arthropathy (principal); Z79.899 Other long term (current) drug therapy
CPT/HCPCS: 36415; 80053; 85025

== ENCOUNTER → 2025-01-19 | Outpatient (CLI) | payer MEDICARE, SELFPAY ==
[2025-01-19 15:39] LABS: Absolute Lymphocyte Count 1.63 X10^3/uL (0.83-4.51); Absolute Neutrophil Count 4.3 X10^3/uL (2.0-7.7); Basophil# 0.03 X10^3/uL; Basophil% 0.4 % (0-1); Eosinophil# 0.12 X10^3/uL; Eosinophils% 1.7 % (0-5); Hematocrit 38.7 % (37-47); Lymphocyte # 1.63 X10^3/ul (0.83-4.51); Lymphocyte % 23.7 % (19-41); Mean Corpuscular Hgb 30.9 pg (27.0-32.0); Mean Corpuscular Volume 99.7 fL (81-99); Mean Platelet Vol. 10.5 fl (6.2-12.0); Monocyte# 0.74 X10^3/uL; Monocyte% 10.8 % (0-10); NRBC Flagged by Analyzer 0 % (0-5); Neutrophil # 4.33 X10^3/uL (2.7-7.7); Platelet Count 294 K/mm3 (150-450); RBC Distribution Width CV 13.7 % (11.6-14.6); RBC Distribution Width SD 49.4 fl (35.1-43.9); Red Blood Count 3.88 M/mm3 (4.2-5.4); White Blood Count 6.9 K/mm3 (4.4-11.0)
[2025-01-19 16:19] LABS: ALB/GLOB Ratio 1.3 RATIO (0.9-2.4); AST(SGOT) 21 U/L (<=31); Alanine Aminotransfer ALT/SGPT 10 U/L (<=34); Albumin, Serum 4.1 g/dL (3.4-4.8); Alkaline Phosphatase 90 U/L (35-104); Anion Gap 11 (5-15); BUN 18 mg/dL (4-19); BUN/Creat Ratio 23.5 RATIO (10-20); Carbon Dioxide 23.6 mmol/L (21.0-32.0); Chloride 96 mmol/L (98-108); Creatinine, Serum 0.76 mg/dL (0.70-1.20); EST Glomerular Filtration Rate 75 (>60); Globulin 3.1 g/dL (2.2-4.2); Glucose 110 mg/dL (70-99); Potassium 4.2 mmol/L (3.3-5.1); Protein, Total 7.2 g/dL (5.9-8.4); Sodium Level 131 mmol/L (133-145); Total Bilirubin 0.35 mg/dL (0.00-1.30)
== END | disposition home or self-care (01) ==
LOC: MTLAB 12:49
PROVIDERS: PCP Internal Medicine; Referring Provider Internal Medicine Rheumatology; Visit Provider Internal Medicine Rheumatology
DX: L40.59 Other psoriatic arthropathy (principal); L40.8 Other psoriasis; Z79.899 Other long term (current) drug therapy
CPT/HCPCS: 36415; 80053; 85025

== ENCOUNTER → 2025-04-17 | Outpatient (CLI) | payer MEDICARE, SELFPAY ==
[2025-04-17 17:48] LABS: Absolute Neutrophil Count 3.4 X10^3/uL (2.0-7.7); Basophil# 0.04 X10^3/uL; Basophil% 0.7 % (0-1); Eosinophil# 0.15 X10^3/uL; Eosinophils% 2.6 % (0-5); Hematocrit 38.3 % (37-47); Lymphocyte % 27.9 % (19-41); Mean Corp Hgb Conc 31.3 g/dL (32-36); Mean Corpuscular Hgb 31.4 pg (27.0-32.0); Mean Corpuscular Volume 100.3 fL (81-99); Mean Platelet Vol. 10.5 fl (6.2-12.0); Monocyte# 0.58 X10^3/uL; Monocyte% 10.1 % (0-10); NRBC Flagged by Analyzer 0 % (0-5); Neutrophil # 3.35 X10^3/uL (2.7-7.7); Neutrophil % 58.5 % (47-70); Platelet Count 250 K/mm3 (150-450); RBC Distribution Width CV 13.9 % (11.6-14.6); RBC Distribution Width SD 50.2 fl (35.1-43.9); Red Blood Count 3.82 M/mm3 (4.2-5.4); White Blood Count 5.7 K/mm3 (4.4-11.0)
[2025-04-17 18:29] LABS: ALB/GLOB Ratio 1.3 RATIO (0.9-2.4); AST(SGOT) 20 U/L (<=31); Alanine Aminotransfer ALT/SGPT 12 U/L (<=34); Alkaline Phosphatase 78 U/L (35-104); Anion Gap 11 (5-15); BUN 22 mg/dL (4-19); BUN/Creat Ratio 27.9 RATIO (10-20); Carbon Dioxide 21.9 mmol/L (21.0-32.0); Chloride 99 mmol/L (98-108); Creatinine, Serum 0.79 mg/dL (0.70-1.20); EST Glomerular Filtration Rate 71 (>60); Globulin 3.2 g/dL (2.2-4.2); Glucose 122 mg/dL (70-99); Potassium 4.4 mmol/L (3.3-5.1); Protein, Total 7.2 g/dL (5.9-8.4); Sodium Level 131 mmol/L (133-145); Total Bilirubin 0.24 mg/dL (0.00-1.30)
== END | disposition home or self-care (01) ==
LOC: MTLAB 14:33
PROVIDERS: PCP Internal Medicine; Referring Provider Internal Medicine Rheumatology; Visit Provider Internal Medicine Rheumatology
DX: L40.59 Other psoriatic arthropathy (principal); L40.8 Other psoriasis; Z79.899 Other long term (current) drug therapy
CPT/HCPCS: 36415; 80053; 85025

== ENCOUNTER 2025-05-10 17:35 | Inpatient (IN) | payer MEDICARE, SELFPAY ==
[2025-05-10] VITALS (8 sets, daily range): BP systolic 108–145; BP diastolic 44–78; PULSE 75–96; RESP 16–24; TEMP 36.9–37.2; O2SAT 93–100; BMI 23.8; BMI 23.9
[2025-05-10 18:40] LABS: Absolute Lymphocyte Count 0.74 X10^3/uL (0.83-4.51); Absolute Neutrophil Count 13.2 X10^3/uL (2.0-7.7); Basophil# 0.02 X10^3/uL; Basophil% 0.1 % (0-1); Eosinophil# 0.01 X10^3/uL; Eosinophils% 0.1 % (0-5); Hematocrit 37.4 % (37-47); Hemoglobin 12.1 g/dL (12.0-15.0); Lymphocyte # 0.74 X10^3/ul (0.83-4.51); Mean Corp Hgb Conc 32.4 g/dL (32-36); Mean Corpuscular Hgb 31.7 pg (27.0-32.0); Mean Corpuscular Volume 97.9 fL (81-99); Mean Platelet Vol. 10.1 fl (6.2-12.0); Monocyte# 0.81 X10^3/uL; Monocyte% 5.4 % (0-10); NRBC Flagged by Analyzer 0 % (0-5); Neutrophil # 13.24 X10^3/uL (2.7-7.7); Neutrophil % 88.8 % (47-70); Platelet Count 226 K/mm3 (150-450); RBC Distribution Width CV 13.9 % (11.6-14.6); RBC Distribution Width SD 48.8 fl (35.1-43.9); Red Blood Count 3.82 M/mm3 (4.2-5.4); White Blood Count 14.9 K/mm3 (4.4-11.0)
--- NOTE | 2025-05-10 18:45 | RAD_ITS ---
EXAM: XR Chest, 2 Views CLINICAL INDICATION: WEAKNESS TECHNIQUE: Frontal and lateral views of the chest. COMPARISON: No relevant prior studies available. FINDINGS: LUNGS AND PLEURAL SPACES: Unremarkable. No consolidation. No pneumothorax. HEART: Unremarkable. No cardiomegaly. MEDIASTINUM: Unremarkable. Normal mediastinal contour. BONES/JOINTS: Unremarkable. No acute fracture. RAD/Chest PA and Lateral IMPRESSION: No acute cardiopulmonary process. Reading Location: [id number]
[2025-05-10 18:47] LABS: ALB/GLOB Ratio 1.3 RATIO (0.9-2.4); AST(SGOT) 19 U/L (<=31); Alanine Aminotransfer ALT/SGPT 14 U/L (<=34); Albumin, Serum 4.2 g/dL (3.4-4.8); Alkaline Phosphatase 74 U/L (35-104); Anion Gap 14 (5-15); BUN 20 mg/dL (4-19); BUN/Creat Ratio 22.7 RATIO (10-20); Carbon Dioxide 21.6 mmol/L (21.0-32.0); Chloride 94 mmol/L (98-108); Creatinine, Serum 0.89 mg/dL (0.70-1.20); EST Glomerular Filtration Rate 62 (>60); Globulin 3.3 g/dL (2.2-4.2); Glucose 201 mg/dL (70-99); Potassium 4.2 mmol/L (3.3-5.1); Protein, Total 7.5 g/dL (5.9-8.4); Sodium Level 129 mmol/L (133-145); Total Bilirubin 0.71 mg/dL (0.00-1.30)
[2025-05-10 19:00] LABS: Lactic Acid 1.9 mmol/L (0.0-2.0)
--- NOTE | 2025-05-10 19:06 | EX.ED.VISEXT ---
HPI History of Present Illness Chief Complaint: Bite Informant: patient and family Narrative Narrative: Patient is an 89-year-old female with a history of mild cognitive impairment and polyneuropathy presenting with family for nausea, vomiting, weakness in the setting of a cat bite that occurred yesterday. They have an outdoor cat and the patient accidentally stepped on the cat's tail yesterday. The cat bit and scratched her right leg (bite wounds of the right calf). They went to urgent care and she was started on Augmentin. She took 2 doses but has been vomiting. She is not able to keep it down. She is having worsening redness and no streaking going up the leg. No report of any fevers. She currently denies any abdominal pain. She was at home alone (does live with family members who are at the bedside) when she threw up and then lowered her self to the ground in the kitchen. Family states she was on the ground for at least an hour. Patient states that she did not hit her head. Patient is acting appropriately and does not any signs of head trauma. She is on methotrexate weekly and does have a history of diabetes as well. States that she is been having her regular bowel movements. Denies any urinary symptoms. No other complaints or concerns at this time. [facility] ED Constitutional Constitutional ED: Denies chills or fever(s) Respiratory/Chest Respiratory/Chest: Reports dyspnea and other Details: Patient has chronic shortness of breath and there is on exertion, unchanged ; Denies cough Gastrointestinal Gastrointestinal: Reports nausea and vomiting; Denies abdominal pain or diarrhea Genitourinary Genitourinary ED: Denies dysuria Musculoskeletal Musculoskeletal: Reports other Details: Right calf and lower leg pain ; Denies arthralgias Integumentary Reports Abrasions, rash and other Details: Cat bite to the left lower leg Psychiatric Psychiatric: Denies anxiety Hematologic/Lymphatic Hematologic/Lymphatic: Denies easy bleeding or easy bruising [facility] Medical History Hypercalcemia Vision problem Irritable bowel syndrome (IBS) Hives High triglycerides High cholesterol History of high blood pressure Migraines Headache Glaucoma Diabetes mellitus Cataracts, bilateral Arthritis Home Medications ?Medication ?Instructions ?Recorded ?Last Taken ?Type aspirin 81 mg tablet,delayed 81 mg PO DAILY 06/01/22 Unknown History release (Adult Low Dose Aspirin) atorvastatin 10 mg tablet 10 mg PO QHS 06/01/22 Unknown History metformin 500 mg tablet 500 mg PO BID 06/01/22 Unknown History ferrous sulfate 27 mg iron tablet 65 mg PO DAILY 10/29/22 Unknown History folic acid 1 mg tablet 1 mg PO DAILY 10/29/22 Unknown History glipizide 2.5 mg tablet, extended 2.5 mg PO DAILY 10/29/22 Unknown History release 24 hr losartan 25 mg tablet 25 mg PO DAILY 10/29/22 Unknown History methotrexate sodium 2.5 mg tablet 2.5 mg PO QWEEK 10/29/22 Unknown History cyanocobalamin (vitamin B-12) 1,000 mcg PO DAILY #30 tabs 06/08/24 Unknown Rx 1,000 mcg tablet mirabegron 25 mg tablet,extended 25 mg PO QHS #30 tabs 04/17/25 Unknown Rx release 24 hr (Myrbetriq) Allergy/AdvReac Type Severity Reaction Status Date / Time Sulfa (Sulfonamide AdvReac Intermediate Hives Verified 05/10/25 17:38 Antibiotics) Family History Father Gallstones Surgical History History of bladder repair surgery Social History Smoking Status: Former smoker alcohol intake: never substance use type: does not use caffeine: Yes Type: coffee Number of servings: 1 what type of physical activity do you participate in: none rancho/catholic: Sabianist seatbelt use: always EXAM Physical Exam Const Vital Signs: 05/10/25 17:37 05/10/25 17:43 05/10/25 18:43 Temperature 98.5 F 98.5 F 98.5 F Temperature Source Oral Oral Oral Pulse Rate 96 95 90 Respiratory Rate 16 19 H 16 Blood Pressure 108/44 L 108/44 L 128/61 H Blood Pressure Mean 65 65 83 Pulse Ox 99 96 100 Oxygen Delivery Method Room Air Room Air Room Air Positive well nourished and well developed General Appearance ED: well developed and NAD HEENT Reports moist mucous membranes Neck full ROM Resp normal respiratory effort and clear to auscultation bilaterally Cardio regular rate, regular rhythm and no murmurs Cardio Narrative: 2+ DP pulses, 2+ radial pulses GI non-tender and non-distended Inspection: Negative for abdominal distention Auscultation: normoactive bowel sounds Palpation: soft; Negative for tender Extremity Extremity Narrative: Nonpitting edema of the right lower extremity with associated erythema centered around the mid calf. She has what appears to be 4 puncture wounds on the posterior right calf consistent with a cat bite. No associated fluctuance. In addition she has some scattered skin tears consistent with cat scratches. There is lymphangitic streaking of skin of the anterior aspect of the leg just past the knee. No associated crepitus. No pain on proportion or significant tenderness. Compartments are soft. Neuro oriented x3 Sensorium / Orientation: alert Motor Exam: muscle tone normal throughout Psych mental status grossly normal and thought process normal Skin Skin Narrative: Scattered abrasions and cat bite with surrounding erythema, warmth and lymphangitic streaking to the right lower leg consistent with an infected cat bite. No area of fluctuance or purulence appreciated MDM MDM MDM Narrative Medical decision making narrative: Patient evaluated for nausea and vomiting after being started on Augmentin for cat bite to her right lower leg. Patient appears to have cellulitis secondary to this on exam with associated lymphangitic streaking. Sepsis workup obtained. In addition she was on the ground for at least an hour or so differential is also include rhabdomyolysis. She is not currently having nausea, vomiting or abdominal pain. Low suspicion for acute pancreatitis or acute biliary pathology but will obtain belly labs. Sepsis workup is obtained. Patient is a leukocytosis of 14.9. Hemoglobin is normal. CMP shows a mild hyponatremia with a sodium of 129, normal anion gap, normal BUN and creatinine and normal liver enzymes. Lactate is normal at 1.9. She has a significantly elevated CRP of 163. Chest x-ray viewed by myself as well as radiology due to her report of shortness of breath is negative. The shortness of breath is more chronic. I do not appreciate crepitus and low suspicion for necrotizing fasciitis of the leg. This is highly consistent with infection I do not think this is a PE/DVT. Patient is on IV Unasyn. Is given gentle IV fluids. Cultures are pending. Will discuss admission with hospitalist. Tetanus is also ordered. Patient is hyponatremic and start on gentle IV fluids in the emergency room. History & Record Review Discussion w/independent historian: Patient and Family Lab Data Attestation: I reviewed the patient's lab results. Labs: Laboratory Results - last 24 hr 05/10/25 05/10/25 17:45 18:20 WBC 14.9 H RBC 3.82 L Hgb 12.1 Hct 37.4 MCV 97.9 MCH 31.7 MCHC 32.4 RDW Std Deviation 48.8 H RDW Coeff of Swapnil 13.9 Plt Count 226 MPV 10.1 Immature Gran % (Auto) 0.600 Neut % (Auto) 88.8 H Lymph % (Auto) 5.0 L [place] % (Auto) 5.4 Eos % (Auto) 0.1 Baso % (Auto) 0.1 Absolute Neuts (auto) 13.2 H Absolute Lymphs (auto) 0.74 L Nucleated RBC % 0 Sodium 129 L Potassium 4.2 Chloride 94 L Carbon Dioxide 21.6 Anion Gap 14 BUN 20 H Creatinine 0.89 Estim Creat Clear Calc 37.00 L Est GFR (MDRD) Non-Af 62 BUN/Creatinine Ratio 22.7 H Glucose 201 H Lactic Acid 1.9 Calcium 10.0 Total Bilirubin 0.71 AST 19 ALT 14 Alkaline Phosphatase 74 C-React Prot Ext Range 163.00 H Total Protein 7.5 Albumin 4.2 Globulin 3.3 Albumin/Globulin Ratio 1.3 Radiography Chest X-Ray - ED: 2 View, Read by ED Physician, Read by Radiologist and No Acute Disease Diagnostic Testing: Clinical Impression(s) from Imaging Studies Chest X-Ray 05/10/25 18:45 IMPRESSION: No acute cardiopulmonary process. Reading Location: [facility] Rhythm Strip Rhythm Strip: Sinus Rhythm Rate: 86 Ectopy: None EKG Initial EKG: Attestation: I personally reviewed and interpreted this EKG as follows: Interpretation: Sinus Rhythm Comments: Normal sinus rhythm at a rate of 86 bpm Normal axis Normal intervals Normal ST segments Management Discussion w/another healthcare provider: Hospitalist Discharge Plan Triage Chief Complaint: Bite Other Complaint: Nausea/Vomiting ED Provider: Josseline Araujo Dx/Rx/DC Orders Clinical Impression: Cat bite of right lower leg with infection, Fatigue, Cellulitis, Nausea and vomiting, Leukocytosis, Acute hyponatremia Prescriptions: No Action aspirin [Adult Low Dose Aspirin] 81 mg tablet,delayed release (DR/EC) 81 mg PO DAILY atorvastatin 10 mg tablet 10 mg PO QHS metformin 500 mg tablet 500 mg PO BID ferrous sulfate 27 mg iron tablet 65 mg PO DAILY losartan 25 mg tablet 25 mg PO DAILY methotrexate sodium 2.5 mg tablet 2.5 mg PO QWEEK glipizide 2.5 mg tablet extended release 24hr 2.5 mg PO DAILY folic acid 1 mg tablet 1 mg PO DAILY mirabegron [Myrbetriq] 25 mg tablet extended release 24 hr 25 mg PO QHS Qty: 30 6RF cyanocobalamin (vitamin B-12) 1,000 mcg tablet 1,000 mcg PO DAILY Qty: 30 10RF Primary Care Provider: Fitz Walters Referrals: Fitz Walters MD [Primary Care Provider] - Print Language: Wolof Disposition Disposition: Acute Care Hospital [facility]
--- NOTE | 2025-05-10 19:17 | PCM.HP.STD ---
HPI - General General Date of Service: 05/10/25 Chief Complaint: Worsening cat bite appearance, N/V HPI Narrative The patient is an 89 y/o F w/ PMHx: Glaucoma of unclear type, IBS, HTN, HLD, Diabetes mellitus type II with chronic neuropathy, Chronic Fe deficiency anemia, RA, Former tobacco use, Chronic cognitive impairment who presents to the [facility] ED on 05/10/25 with history of fatigue, malaise, recent onset of nausea and emesis following a cat bite that occurred the day prior noted to be an outdoor cat and unfortunately she had stepped on its tail prompting her to scratch and bite her to the right calf with urgent care evaluation placed on Augmentin with administration of 2 doses however she since then she has been having issues with nausea and emesis unable to even to keep her medications down with worsening redness to the right calf but no streaking and no fevers or chills eventually prompting ED evaluation. Patient had also of note in her kitchen and became very weak and fatigued when she was throwing up lowering her self to the ground with no loss of consciousness or head trauma. She notes the RLE has become more uncomfortable primarily with ambulation, aching, 3-4/10 in severity with notable increased swelling. Workup in the ED included T98.5, heart rate 96, BP 108/44, respiratory rate 16, 99% on room air with most recent repeat vitals T90.5, heart 90, BP 120/61, respiratory rate 16, 100% on room air, CBC with WBC 14.9, hemoglobin 12.1, platelet 226 with left shift and lymphopenia, CMP with sodium 129, chloride 94, BUN/creat 20/0.9, GFR 62, glucose 201, lactic acid 1.9, hepatic profile not marked appearing, CRP 163, chest x-ray with no acute cardiopulmonary findings. In the ED patient ministered maintenance IV fluids, Unasyn 1500 g IV x 1, tetanus update. [facility] Medical History (Updated 05/10/25 @ 19:[address] Misty Blanco MD) Rheumatoid arthritis Former tobacco use HTN (hypertension) HLD (hyperlipidemia) Irritable bowel syndrome (IBS) Hives High triglycerides Migraines Glaucoma Diabetes mellitus Cataracts, bilateral Arthritis Home Medications ?Medication ?Instructions ?Recorded ?Last Taken ?Type aspirin 81 mg tablet,delayed 81 mg PO DAILY 06/01/22 05/10/25 History release (Adult Low Dose Aspirin) atorvastatin 10 mg tablet 10 mg PO DAILY 06/01/22 05/10/25 History metformin 500 mg tablet 500 mg PO BID 06/01/22 05/10/25 History ferrous sulfate 27 mg iron tablet 65 mg PO DAILY 10/29/22 05/10/25 History folic acid 1 mg tablet 2 mg PO DAILY 10/29/22 05/10/25 History losartan 25 mg tablet 25 mg PO DAILY 10/29/22 05/10/25 History methotrexate sodium 2.5 mg tablet 15 mg PO QWEEK 10/29/22 05/09/25 History cyanocobalamin (vitamin B-12) 1,000 mcg PO DAILY #30 tabs 06/08/24 05/10/25 Rx 1,000 mcg tablet mirabegron 25 mg tablet,extended 25 mg PO QHS #30 tabs 04/17/25 05/09/25 Rx release 24 hr (Myrbetriq) amoxicillin 875 mg-potassium 1 tab PO BID 05/10/25 05/10/25 History clavulanate 125 mg tablet dorzolamide 22.3 mg-timolol 6.8 1 drp ophthalmic (eye) BID 05/10/25 05/10/25 History mg/mL eye drops netarsudil 0.02 %-latanoprost 1 drp ophthalmic (eye) QHS 05/10/25 05/09/25 History 0.005 % eye drops (Rocklatan) Allergy/AdvReac Type Severity Reaction Status Date / Time Sulfa (Sulfonamide AdvReac Intermediate Hives Verified 05/10/25 17:38 Antibiotics) Family History (Updated 05/10/25 @ 20:[address] Misty Blanco MD) Father Gallstones BPH (benign prostatic hyperplasia) Mother Alzheimer dementia Surgical History (Updated 05/10/25 @ 19:[address] Misty Blanco MD) History of bilateral tubal ligation History of bladder repair surgery Social History (Updated 05/10/25 @ 19:[address] Misty Blanco MD) household members: family Smoking Status: Former smoker how long ago did patient quit smoking: Smoked 40 years, started 19 until quit, ~ 1 ppd. alcohol intake: never substance use type: does not use caffeine: Yes Type: coffee Number of servings: 1 what type of physical activity do you participate in: none rancho/sikhism: Bahai seatbelt use: always ROS ROS Narrative Admission Review of Systems: CONSTITUTIONAL: No weight loss, fever, chills, + weakness or fatigue. HEENT: Eyes: No visual loss, blurred vision, double vision or yellow sclerae. Ears, Nose, Throat: No hearing loss, sneezing, congestion, runny nose or sore throat. SKIN: No rash or itching, lesions except + significant right lower extremity cat bites with erythema with no induration or drainage, associated right lower extremity swelling, occasional stage ecchymoses, abrasion. CARDIOVASCULAR: No chest pain, chest pressure or chest discomfort, palpitations, edema, orthopnea, syncopal events. RESPIRATORY: No shortness of breath, cough or sputum, wheezing, hemoptysis. GASTROINTESTINAL: + anorexia, nausea, vomiting, chronic IBS history. No persistent diarrhea, abdominal pain, melena, BRBPR. GENITOURINARY: No dysuria, frequency, urgency or retention. NEUROLOGICAL: + General debility/weakness. No headache, dizziness, syncope, paralysis, ataxia, numbness or tingling in the extremities, focal weakness, change in bowel or bladder control, seizure. MUSCULOSKELETAL: + muscle, back pain, joint pain or stiffness. HEMATOLOGIC: + Chronic anemia, easy bleeding/bruising. LYMPHATICS: No enlarged nodes. No history of splenectomy. PSYCHIATRIC: No history of depression or anxiety. ENDOCRINOLOGIC: No reports of sweating, cold or heat intolerance. No polyuria or polydipsia. ALLERGIES: + History of hives. Vital Signs Vital Signs Vital Signs: 05/10/25 17:37 05/10/25 17:43 05/10/25 18:43 Temperature 98.5 F 98.5 F 98.5 F Temperature Source Oral Oral Oral Pulse Rate 96 95 90 Respiratory Rate 16 19 H 16 Blood Pressure 108/44 L 108/44 L 128/61 H Blood Pressure Mean 65 65 83 Pulse Ox 99 96 100 Oxygen Delivery Method Room Air Room Air Room Air Weight Weight: 139 lb Body Mass Index (BMI) 23.8 Physical Exam Narrative Physical Examination: General: Awake, alert, oriented x 3, significantly hard of hearing but is longer standing closely patient appropriately understanding, currently given she is off her right lower extremity and not ambulating denies any severe pain. Skin: Normal color, normal turgor, no icterus, no cyanosis except notable right lower extremity various cat bites with no induration or specific drainage but notable erythema around the bites as well as significant swelling primarily to the right foot/ankle up to the proximal calf, occasional very stage ecchymoses, abrasion. HEENT: AT/NC, EOMI, PERRLA, mildly dry MM, no carotid bruits or JVD noted. Lungs: Mildly diminished, greater bases, poor effort, no rales, ronchi or wheezing. Heart: Regular rate and rhythm; no gallop, rub audible. Abdomen: Soft, NTTP, ND, mildly hyperactive BS, no HSM. Extremities: No cyanosis, no clubbing, noted right lower extremity swelling with associated cat bite, see skin. Neurological: Patient awake, alert, oriented as noted, hard of hearing, cognitive function decreased baseline with underlying cognitive impairment but currently baseline intact per family; pupils equally reactive to light and accommodation, cranial nerves grossly normal, moving all 4 extremities, no focal deficits, strength moderately to severely globally decreased Psychiatric: Affect appears fatigued otherwise normal, no acute evidence of depressive or anxiety feelings. Results Lab / Micro Data 05/10/25 17:45 05/10/25 17:45 Labs: Laboratory Results - last 24 hr 05/10/25 17:45: WBC 14.9 H, RBC 3.82 L, Hgb 12.1, Hct 37.4, MCV 97.9, MCH 31.7, MCHC 32.4, RDW Std Deviation 48.8 H, RDW Coeff of Swapnil 13.9, Plt Count 226, MPV 10.1, Immature Gran % (Auto) 0.600, Neut % (Auto) 88.8 H, Lymph % (Auto) 5.0 L, Monona % (Auto) 5.4, Eos % (Auto) 0.1, Baso % (Auto) 0.1, Absolute Neuts (auto) 13.2 H, Absolute Lymphs (auto) 0.74 L, Nucleated RBC % 0, Sodium 129 L, Potassium 4.2, Chloride 94 L, Carbon Dioxide 21.6, Anion Gap 14, BUN 20 H, Creatinine 0.89, Estim Creat Clear Calc 37.00 L, Est GFR (MDRD) Non-Af 62, BUN/Creatinine Ratio 22.7 H, Glucose 201 H, Calcium 10.0, Total Bilirubin 0.71, AST 19, ALT 14, Alkaline Phosphatase 74, C-React Prot Ext Range 163.00 H, Total Protein 7.5, Albumin 4.2, Globulin 3.3, Albumin/Globulin Ratio 1.3 05/10/25 18:20: Lactic Acid 1.9 Rhythm Strip Rhythm Strip: Sinus Rhythm Rate: 86 Ectopy: None Imaging Radiology Impression Chest X-Ray 05/10/25 18:45 IMPRESSION: No acute cardiopulmonary process. Reading Location: [facility] Assessment & Plan Assessment/Plan (1) Cellulitis: (2) Cat bite of right lower leg with infection: PLAN: Plan The patient is an 89 y/o F w/ PMHx: Glaucoma of unclear type, IBS, HTN, HLD, Diabetes mellitus type II with chronic neuropathy, Chronic Fe deficiency anemia, RA, Former tobacco use, Chronic cognitive impairment who presents to the [facility] ED on 05/10/25 with history of fatigue, malaise, recent onset of nausea and emesis following a cat bite that occurred the day prior noted to be an outdoor cat and unfortunately she had stepped on its tail prompting her to scratch and bite her to the right calf with urgent care evaluation placed on Augmentin with administration of 2 doses however she since then she has been having issues with nausea and emesis unable to even to keep her medications down with worsening redness to the right calf but no streaking and no fevers or chills eventually prompting ED evaluation. #1. Intractable nausea, emesis, debility with adult failure to thrive secondary to acutely infected feline bite with right lower extremity cellulitis, several Bite wounds with no obvious current abscess, failed outpatient antibiotic therapies: Will admit to [facility] given stable vital signs, maintain on IV Unasyn, wound RN consulted, continue dry dressings to the region, plan repeat CBC in AM, continue affected extremity elevation above heart when seated and in bed, monitor erythema outline with VS checks, low threshold to obtain duplex US to assure no DVT concurrently if persistent swelling despite treatment of infection as noted. Will maintain on clear liquids with Accu-Cheks every 6 hours until patient has resolution of nausea and there is no episodes of emesis with IV PPI. PT/OT/case management consulted for discharge planning. #2. Acute hyponatremia, hypochloremia, suspected hypovolemic presentation given GI losses as noted associate with #1: Admission sodium 129, chloride 94, will continue judicious hydration and repeat CMP in AM. #3. Possible Chronic Kidney Disease Stage III, unclear subtype however no comparisons thus uncertain: Admission BUN/Cr 20/0.89, GFR 37, baseline renal function unknown, will repeat CMP in a.m. to further elucidate. #4. Chronic cognitive impairments: Possibly confounded also by significant hearing deficits, living with family and per their report doing rather well until current presentation, will maintain on fall precautions, PT/OT/case management consult for discharge planning. #5. #2. Diabetes mellitus type II with chronic neuropathy: Hold oral home regimen, given intractable nausea and emesis with #1 will temporarily maintain on clears, while on clears will maintain every 6 hours accu checks w/ ISS. Will transition diet once clinically improving. #6. Rheumatoid arthritis: Following with rheumatology in [place] [facility], on methotrexate with folic acid supplementation, will temporarily hold while inpatient, encourage continued follow-up outpatient with rheumatology as previously arranged. #7. Chronic iron deficiency anemia: Admission CBC with hemoglobin 12.1, MCV 97.9, baseline hemoglobin primarily 11-12, stable, will continue to trend CBC, continue iron supplementation. #8. Glaucoma, unclear type: Will continue patient home eyedrop regimen. #9. Hypertension: Continue home regimen including losartan with hold parameters as needed, PRN hydralazine. #10. Hyperlipidemia: Will continue patient on statin therapy. #11. Former tobacco use: Encourage continued tobacco cessation. #12. DVT prophylaxis: Lovenox. #13. CODE status: Patient MATTIE is her daughter who is present and living will is currently in place. Discussed CODE status at length including difference between FULL code, DNR-CCA and DNR-CC status. Following discussions about the differences in these status, requested DNR CCA with allowance of short-term intubation. Discussed several different scenarios to assure DNR-CCA allowance of short-term intubation status and confirmed. Advanced Care Planning Face to Face Time: 16 minutes. Charges/Coding Visit Charges Inpatient E&M: 48688 Init Hosp L3 Procedures Hospitalists Procedures: 72954 Advncd Care Plan 30 Min
[2025-05-10 19:33] LABS: Mucous, Urine 0 SEEN /hpf (<or=2+)
[2025-05-10] MEDS: Ampicillin/Sulbactam 1,500 MG in 0.9% Normal Saline (50mL MB+) 50 ML 100 MG IV (19:36)
[2025-05-10] MEDS: 0.9% Normal Saline (1000mL) 1,000 ML 100 ML IV (19:36)
[2025-05-10 19:50] LABS: Color, Urine Straw (Yellow); Glucose, Dipstick 50 mg/dl (Normal); Ketone-Dipstick 15 mg/dl (Negative); Leukocyte Esterase-Dipstick 500 /ul (Negative); Nitrite-Dipstick Negative (Negative); Occult Blood-Urine 150 /ul (Negative); Protein-Dipstick 30 mg/dl (Negative); Specific Gravity, Urine 1.015 (1.002-1.030); Urine Bilirubin Dipstick Negative (Negative); Urine Clarity Cloudy (Clear); Urine Urobilinogen 1 mg/dl (Normal); Urine pH 6.5 (5.0 - 8.0)
[2025-05-10 20:00] LABS: Bacteria 1+ /hpf (None Seen); Red Blood Cells-Urine 0-5 SEEN /hpf (0-5); Squamous Epithelial Cells - UA 0-5 SEEN /hpf (5-10); White Blood Cells 25-50 SEEN /hpf (0-5)
[2025-05-10 20:01] LABS: Amorphous Sediment 1+
[2025-05-10] MEDS: Acetaminophen 325 MG Tablet 650 MG PO (22:07)
--- OUTSIDE RECORDS SUMMARY | 2025-05-10 22:12 | XMS RPT_ITS | CCD ---
Author Organization [facility] Care Team Providers Care Rough Patcher Name Role Phone Fitz Walters MD Primary Care Provider Dr. Fitz Walters Primary Care Provider Dr. Fitz Walters Referring Provider Alondra, Dr. Schwarz Attending Provider Fitz Walters MD Primary Care Provider Fitz Walters MD Primary Care Provider Dr. Fitz Walters Primary Care Provider Dr. Fitz Walters Referring Provider Dr. Chong Cantu Attending Provider Dr. Chong Cantu Referring Provider Dr. Fitz Walters Referring Provider Dr. Liban Leiva Attending Provider Dr. Fitz Walters Primary Care Provider Dr. Chong Cantu Attending Provider Dr. Chong Cantu Referring Provider Dr. Fitz Walters Primary Care Provider Dr. Fitz Walters Referring Provider Alondra, Dr. Schwarz Attending Provider Fitz Walters MD Primary Care Provider Corin MANAGEMENT DEVELOPMENT SPECIALIST.MEDICAL RESEARCH ASSISTANT, Sandra M Unavailable WALTERS, KAREN Primary Care Unavailable TESTRAKE, ANGELINA Referring Unavailable TESTRAKE, ANGELINA Attending Unavailable WALTERS, KAREN Primary Care Unavailable SELF Referring Unavailable TESTRAKE, ANGELINA Attending Unavailable WALTERS, KAREN Primary Care Unavailable CORIN, SANDRA M Referring Unavailable CORIN, SANDRA M Attending Unavailable WALTERS, KAREN Primary Care Unavailable WALTERS, KAREN Referring Unavailable WALTERS, KAREN Attending Unavailable WALTERS, KAREN Primary Care Unavailable Romeo RITCHIE, Dr. Byrnes Primary Care Provider Lizet RITCHIE, Dr. Dang Attending Provider Lizet RITCHIE, Dr. Dang Referring Provider Romeo RITCHIE, Dr. Byrnes Primary Care Provider Lizet RITCHIE, Dr. Dang Attending Provider Lizet RITCHIE, Dr. Dang Referring Provider Romeo RITCHIE, Dr. Byrnes Referring Provider [phone] Alondra RITCHIE, Dr. Schwarz Attending Provider Lizet, Laurence Referring Unavailable Vellanki, Laurence Attending Unavailable Walters, Fizt Primary Care Unavailable Walters, Fitz Primary Care Unavailable Chong Cantu Attending Unavailable Walters, Fitz Referring Unavailable Walters, Fitz Primary Care Unavailable Vellanki, Laurence Attending Unavailable Vellanki, Laurence Referring Unavailable Vellanki, Laurence Referring Unavailable Vellanki, Laurence Attending Unavailable Walters, Fitz Primary Care Unavailable Vellanki, Laurence Attending Unavailable Vellanki, Laurence Referring Unavailable Walters, Fitz Primary Care Unavailable Vellanki, Laurence Attending Unavailable Vellanki, Laurence Referring Unavailable Walters, Fitz Primary Care Unavailable Allergies Allergy Classification Reported Allergen(s) Allergy Type Date of Onset Reaction(s) Facility Sulfur (1 source) Sulfur Drug Allergy 7 [facility] (20 sources) Sulfur; Translations: [SULFUR] Drug Allergy 7 [facility] (12 sources) Sulfonamides (Antibiotic); Translations: [Sulfa (Sulfonamide Antibiotics)] Propensity to adverse reactions 2 [facility] Medications Current Medications Medication Drug Class(es) Dates Sig (Normalized) Sig (Original) aspirin 81 mg delayed release oral tablet (20 sources) Platelet Aggregation Inhibitor, Nonsteroidal Anti-inflammatory Drug Start: 06-01-2022 Aspirin (Adult Low Dose Aspirin) 81 mg tablet,delayed release (DR/EC) Active 81 mg PO DAILY June 01, 2022 12:00am Start: 08-10-2006 ASPIRIN 81 MG TAB Indications: Type II or unspecified type diabetes mellitus without mention of complication, not stated as uncontrolled Take one (1) tablet daily . 0 08/10/2006 Active Comment on above: Take one (1) tablet daily . atorvastatin 10 mg oral tablet (20 sources) HMG-CoA Reductase Inhibitor Start: 2 End: 5 take 1 tablet by mouth at bedtime Atorvastatin 10 mg tablet Active 10 mg PO AT BEDTIME June 01, 2022 12:00am Comment on above: Take 1 tablet by annette th once daily. cyanocobalamin, vitamin B-12, (VITAMIN B12 ORAL) (11 sources) take 1 tablet by mouth once daily cyanocobalamin, vitamin B-12, (VITAMIN B12 ORAL) Take 1 tablet by mouth once daily. Active cyanocobalamin, vitamin B-12, (VITAMIN B12 ORAL) Take by mouth. Active cyanocobalamin, vitamin B-12, (VITAMIN B12 ORAL) Take by mouth. 0 Active Comment on above: Take by mouth. dorzolamide 20 mg/ml / timolol 5 mg/ml ophthalmic solution (15 sources) Carbonic Anhydrase Inhibitor, beta-Adrenergic Shalonda Start: 02-23-2023 take 1 drop(s) into the eye(s) twice daily dorzolamide-timolol (COSOPT) 22.3-6.8 mg/mL ophthalmic solution Use 1 Drop in both eyes twice daily. 02/23/2023 Active Start: 02-23-2023 take 1 drop(s) into the eye(s) twice daily dorzolamide-timolol (COSOPT) 22.3-6.8 mg/mL ophthalmic solution Use 1 Drop in both eyes twice daily. 0 02/23/2023 Active Comment on above: Use 1 Drop in both e yes twice daily. ferrous sulfate 134 mg oral tablet (20 sources) Start: 10-29-2022 Ferrous Sulfate 27 mg iron tablet Active 65 mg PO DAILY October 29, 2022 1:00am Start: 10-29-2022 take 65 mg by mouth once daily Ferrous Sulfate Active 65 MG PO DAILY October 29, 2022 1:00am Start: 10-31-2021 take 1 tablet by annette th once daily at breakfast ferrous sulfate 325 mg (65 mg iron) tablet Take 1 tablet by mouth daily with breakfast. 10/31/2021 Active Comment on above: Take 1 tablet by annette th daily with breakfast. folic acid 1 mg oral tablet (20 sources) Start: 10-29-2022 take 1 tablet by mouth once daily Folic Acid 1 mg tablet Active 1 mg PO DAILY October 29, 2022 1:00am take 2 tablets by mouth once zack ly folic acid 1 mg tablet Take 2 mg by mouth once daily. Active Comment on above: Take 2 mg by mouth o nce daily. glipiZIDE er 2.5 mg 24 hr extended release oral tablet (20 sources) Sulfonylurea Start: 01-20-20 End: 11-27-19 take 1 tablet by mouth once daily Glipizide 2.5 mg tablet extended release 24hr Active 2.5 mg PO DAILY October 29, 2022 1:00am Comment on above: Take 1 tablet by annette th daily with breakfast. latanoprost 0.05 mg/ml / netarsudil 0.2 mg/ml ophthalmic solution (4 sources) Prostaglandin Analog, Rho Kinase Inhibitor Start: 11-25-19 take 1 drop(s) into the eye(s) once daily at bedtime ROCKLATAN 0.02-0.005 % ophthalmic solution Use 1 Drop in both eyes daily at bedtime. 11/25/2024 Active losartan potassium 25 mg oral tablet (20 sources) Angiotensin 2 Receptor Shalonda Start: 01-20-20 End: 04-17-20 take 1 tablet by mouth once daily Losartan 25 mg tablet Active 25 mg PO DAILY October 29, 2022 1:00am Comment on above: Take 1 tablet by annette th once daily. For high blood pressure. metFORMIN hydrochloride 500 mg oral tablet (20 sources) Biguanide Start: 01-20-20 End: 02-06-20 take 1 tablet by mouth twice daily Metformin 500 mg tablet Active 500 mg PO TWICE A DAY June 01, 2022 12:00am Comment on above: Take 1 tablet by annette th twice daily with meals. Take 1 tablet by annette th two times a day with meals. methotrexate 2.5 mg oral tablet (20 sources) Folate Analog Metabolic Inhibitor Start: 10-29-20 take 1 tablet by mouth every week Methotrexate Sodium 2.5 mg tablet Active 2.5 mg PO EVERY WEEK October 29, 2022 1:00am Start: 10-31-2021 methotrexate 2 .5 mg tablet 6 tabs once weekly 10/31/2021 Active Comment on above: 6 tabs once weekly 24 hr mirabegron 25 mg extended release oral tablet (2 sources) beta3-Adrenergic Agonist Start: take 1 tablet by mouth every twenty-four hours at bedtime Mirabegron (Myrbetriq) 25 mg tablet extended release 24 hr Active 25 mg PO AT BEDTIME April 17, 2025 12:00am nitrofurantoin, macrocrystals 25 mg / nitrofurantoin, monohydrate 75 mg oral capsule (4 sources) Nitrofuran Antibacterial Start: 023 End: 023 take 1 capsule by mouth twice daily at mealtime nitrofurantoin monohydrate and macrocrystal (MACROBID) 100 mg capsule Take 1 capsule by mouth twice daily with meals for 7 days. 14 capsule 0 05/22/2023 05/29/2023 Active Start: 02-10-2023 End: 02-17-2023 take 1 capsule by mouth twice daily at mealtime nitrofurantoin monohydrate and macrocrystal (MACROBID) 100 mg capsule Take 1 capsule by mouth twice daily with meals for 7 days. 14 capsule 0 02/10/2023 02/17/2023 Active Start: 07-16-2022 End: 07-23-2022 take 1 capsule by mouth twice daily at mealtime nitrofurantoin monohydrate and macrocrystal (MACROBID) 100 mg capsule Indications: Dysuria Take 1 capsule by mouth twice daily with meals for 7 days. 14 capsule 0 07/16/2022 07/23/2022 Active Comment on above: Take 1 capsule by mo [facility] twice daily with meals for 7 days. tacrolimus 0.001 mg/mg topical ointment (20 sources) Calcineurin Inhibitor Immunosuppressant Start: 05-03-2014 tacrolimus (PROTOPIC) 0.1 % ointment Apply 1 application to affected area as needed. 05/03/2014 Active Comment on above: Apply 1 application to affected area as needed. Completed/Discontinued Medications Medication Drug Class(es) Dates Sig (Normalized) Sig (Original) calcium carbonate 600 mg / cholecalciferol 125 unt oral tablet (4 sources) Vitamin D Start: 12-10-2016 End: 05-07-2022 take 1 tablet by mouth twice daily Calcium-Cholecalc iferol, D3, (CALCIUM 600 + D) 600-125 mg-unit tab Take 1 tablet by mouth twice daily. For bone health. 180 tablet 3 12/10/2016 05/07/2022 Discontinued Comment on above: Take 1 tablet by annette twice daily. For bone health. doxycycline hyclate 100 mg oral capsule (4 sources) Tetracycline-class Drug Start: 01-15-2022 End: 05-07-2022 take 1 capsule by mouth twice daily doxycycline hyclate (VIBRAMYCIN) 100 mg capsule Indications: Diabetic ulcer of left midfoot associated with type 2 diabetes mellitus, 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) Take 1 capsule by mouth twice daily. 14 capsule 0 01/15/2022 05/07/2022 Discontinued Comment on above: Take 1 capsule by mo [facility] twice daily. latanoprost 0.05 mg/ml ophthalmic solution (12 sources) Prostaglandin Analog Start: 02-23-2023 End: 11-27-2024 take 1 drop(s) into the eye(s) once daily latanoprost (XALATAN) 0.005 % ophthalmic solution Use 1 Drop in both eyes once daily. 02/23/2023 11/27/2024 Discontinued Start: 02-23-2023 take 1 drop(s) into the eye(s) once daily latanoprost (XALATAN) 0.005 % ophthalmic solution Use 1 Drop in both eyes once daily. 0 02/23/2023 Active Comment on above: Use 1 Drop in both e yes once daily. lisinopril 10 mg oral tablet (11 sources) Angiotensin Converting Enzyme Inhibitor Start: 2 End: 2 take 1 tablet by mouth once daily Lisinopril 10 mg tablet Discontinued 10 mg PO DAILY June 01, 2022 12:00am October 29, 2022 5:41pm solifenacin succinate 10 mg oral tablet (7 sources) Cholinergic Muscarinic Antagonist Start: 2 End: 2 take 1 tablet by mouth once daily solifenacin 10 mg tablet Indications: Urge incontinence of urine , Nocturia Take 1 tablet by mouth once daily. 90 tablet 1 06/03/2022 07/09/2022 Discontinued (Side Effects) Start: 05-07-2022 End: 06-06-2022 take 1 tablet by mouth once daily solifenacin (VESICARE) 5 mg tablet Indications: Urge incontinence of urine , Nocturia Take 1 tablet by mouth once daily. 30 tablet 0 05/07/2022 06/03/2022 Discontinued Comment on above: Take 1 tablet by annette th once daily. tamsulosin hydrochloride 0.4 mg oral capsule (15 sources) alpha-Adrenergic Shalonda Start: 3 End: 3 take 1 capsule by mouth at bedtime Tamsulosin 0.4 mg capsule Discontinued 0.4 mg PO AT BEDTIME February 02, 2023 12:00am February 16, 2023 3:27pm Comment on above: Take by mouth. 12 hr timolol 5 mg/ml ophthalmic solution (20 sources) beta-Adrenergic Shalonda Start: 4 timolol maleate (TIMOPTIC) 0.5 % ophthalmic solution Use 1 Drop in both eyes twice daily. 0 10/09/2014 Active Start: 10-09-2014 timolol maleat e (TIMOPTIC) 0.5 % ophthalmic solution Use 1 Drop in both eyes twice daily. 0 10/09/2014 Active Comment on above: Use 1 Drop in both e yes twice daily. vitamin b12 1 mg oral tablet (15 sources) Vitamin B12 Start: 02-02-2023 End: 06-08-2024 take 1 tablet by mouth once daily Cyanocobalamin (Vitamin B-12) 1,000 mcg tablet Discontinued 1000 ug PO DAILY August 16, 2023 5:41pm June 08, 2024 4:31pm Problems Active Problems Problem Classification Problem Date Documented Date Episodic/Chronic Acquired foot deformities (1 source) Hammer toe; Translations: [Other hammer toe(s) (acquired), right foot] Chronic Complications of surgical procedures or medical care (1 source) Drug therapy finding; Translations: [Unspecified adverse effect of drug or medicament, initial encounter] Episodic Deficiency and other anemia (11 sources) Anemia; Translations: [Anemia, unspecified] 06-01-2022 Episodic Deficiency and other anemia (2 sources) Anemia, unspecified; Translations: [Anemia, unspecified] Episodic Diabetes mellitus with complications (20 sources) Type 2 diabetes mellitus; Translations: [Type 2 diabetes mellitus with diabetic polyneuropathy] Onset: 10-23-2010 Resolved: 11-01-2013 09-11-2015 Chronic Disorders of lipid metabolism (20 sources) Hyperlipidemia; Translations: [Hyperlipidemia, unspecified] Onset: 07-13-2007 03-12-2016 Chronic Essential hypertension (20 sources) Essential hypertension; Translations: [Essential (primary) hypertension] Onset: 09-11-2015 09-11-2015 Chronic Fluid and electrolyte disorders (1 source) Hyperkalemia; Translations: [Hyperkalemia] Episodic Genitourinary symptoms and ill-defined conditions (20 sources) Urge incontinence of urine; Translations: [Urge incontinence] Onset: 08-10-2006 Resolved: 09-11-2015 06-16-2016 Chronic Genitourinary symptoms and ill-defined conditions (20 sources) Nocturia; Translations: [Nocturia] Onset: 03-12-2016 03-12-2016 Episodic Glaucoma (5 sources) Glaucoma; Translations: [Unspecified glaucoma] Onset: 02-23-2023 05-25-2024 Chronic Immunizations and screening for infectious disease (4 sources) Vaccination needed; Translations: [Encounter for immunization] Onset: 11-27-2024 Episodic Malaise and fatigue (12 sources) Fatigue; Translations: [Other fatigue] 02-02-2023 Episodic Nutritional deficiencies (20 sources) Vitamin D deficiency; Translations: [Vitamin D deficiency, unspecified] Onset: 03-27-2011 03-27-2011 Chronic Osteoarthritis (20 sources) Degenerative joint disease involving multiple joints; Translations: [Polyosteoarthritis, unspecified] Onset: 05-20-2004 Resolved: 11-01-2013 03-12-2016 Chronic Other congenital anomalies (20 sources) Congenital pes planus; Translations: [Congenital pes planus, unspecified foot] Onset: 10-23-2010 10-23-2010 Chronic Other connective tissue disease (4 sources) Pain of toe of right foot; Translations: [Pain in right toe(s)] Episodic Other connective tissue disease (4 sources) Pain of toe of left foot; Translations: [Pain in left toe(s)] Episodic Other connective tissue disease (2 sources) Dysfunction of posterior tibial tendon of right foot; Translations: [Posterior tibial tendinitis, right leg] Episodic Other hereditary and degenerative nervous system conditions (13 sources) Impaired cognition; Translations: [Mild cognitive impairment, so stated] 06-01-2022 Chronic Other hereditary and degenerative nervous system conditions (4 sources) Mild cognitive impairment, so stated; Translations: [Mild cognitive impairment, so stated] Chronic Other inflammatory condition of skin (20 sources) Psoriasis; Translations: [Other psoriasis] 09-08-2005 Chronic Other inflammatory condition of skin (1 source) Other psoriatic arthropathy; Translations: [Other psoriatic arthropathy] Onset: 04-20-2025 Chronic Other nervous system disorders (13 sources) Polyneuropathy; Translations: [Polyneuropathy, unspecified] 06-01-2022 Chronic Other nervous system disorders (8 sources) Polyneuropathy, unspecified; Translations: [Unspecified hereditary and idiopathic peripheral neuropathy] Chronic Other nervous system disorders (14 sources) Abnormal gait; Translations: [Unsteadiness on feet] Episodic Other nervous system disorders (6 sources) Unspecified abnormalities of gait and mobility; Translations: [Abnormality of gait] Episodic Other nutritional; endocrine; and metabolic disorders (10 sources) Hypercalcemia; Translations: [Hypercalcemia] Chronic Other nutritional; endocrine; and metabolic disorders (2 sources) Hypercalcemia; Translations: [Hypercalcemia] 02-16-2023 Chronic Other skin disorders (2 sources) Foot callus; Translations: [Corns and callosities] 01-13-2024 Episodic Retinal detachments; defects; vascular occlusion; and retinopathy (6 sources) Exudative age-related macular degeneration; Translations: [Exudative age-related macular degeneration, bilateral, with active choroidal neovascularization] Onset: 2023 05-25-2024 Chronic Urinary tract infections (1 source) Acute cystitis; Translations: [Acute cystitis with hematuria] Episodic Past or Other Problems Problem Classification Problem Date Documented Da te Episodic/Chronic Acquired foot deformities (12 sources) Acquired deformity of toe; Translations: [Other deformities of toe(s) (acquired), unspecified foot] Onset: 0 Resolved: 5 11-01-2013 Episodic Adjustment disorders (6 sources) 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ssed mood; Translations: [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ssed mood] Onset: 6 Resolved: 1 10-31-2021 Chronic Gastrointestinal hemorrhage (6 sources) Lower gastrointestinal hemorrhage; Translations: [Gastrointestinal hemorrhage, unspecified] Onset: 4 Resolved: 5 09-11-2015 Episodic Mycoses (20 sources) Onychomycosis due to dermatophyte ; Translations: [Tinea unguium] Onset: 1 09-07-2011 Episodic Other connective tissue disease (6 sources) Pain in limb; Translations: [Pain in unspecified limb] Onset: 5 Resolved: 6 08-10-2006 Episodic Other connective tissue disease (6 sources) Nontraumatic rupture of extensor tendon of hand and wrist; Translations: [Spontaneous rupture of extensor tendons, unspecified hand] Onset: 5 Resolved: 6 08-10-2006 Episodic Other ear and sense organ disorders (6 sources) Tinnitus; Translations: [Tinnitus] Onset: 7 Resolved: 2 04-07-2012 Episodic Other nervous system disorders (6 sources) Neuropathy; Translations: [Polyneuropathy, unspecified] Onset: 0 Resolved: 5 09-11-2015 Chronic Skin and subcutaneous tissue infections (6 sources) Cellulitis and abscess of toe; Translations: [Cellulitis of unspecified toe] Onset: 1 Resolved: 1 10-06-2011 Episodic Results Test Name Value Interpretation Reference Range Facility Absolute lymphocyte countOrd ered By: Laurence Hinds on 04-17-2025 Lymphocytes Auto (Unsp spec) [#/Vol] 1.60 10*3/uL 0.83-4.51 [facility] Absolute neutrophil countOrd ered By: Laurence Hinds on 04-17-2025 Neutrophils (Bld) [#/Vol] 3.4 10*3/uL 2.0-7.7 [facility] Anion gap in Serum or Plasma Ordered By: Laurence Hinds on 04-17-2025 Anion gap [Moles/Vol] 11 mmol/L 5- [facility] Automated lymphocyte count a s percentage of total leukocytesOrdered By: Laurence Hinds on 04-17-2025 Lymphocytes/100 WBC Auto (Unsp spec) 27.9 % 19- [facility] BUN/creatinine ratioOrdered By: Laurence Hinds on 04-17-2025 Urea nitrogen/Creatinine [Mass ratio] 27.9 mg/mg High 10- [facility] Basophil percentageOrdered B y: Laurence Hinds on 04-17-2025 Basophils/100 WBC (Bld) 0.7 % 0-1 [facility] Bilirubin, totalOrdered By: Laurence Hinds on 04-17-2025 Bilirubin [Mass/Vol] 0.24 mg/dL 0.00-1.30 [facility] CBC W/Diff, Automatedon Absolute Lymph 1.60 X10 3/uL Normal 0.83-4.51 [facility] Comment on above: Performed By: #### L 100.0100, L500.4050 #### [facility] [address] [place], [address] Absolute Neut 3.4 X10 3/uL Normal 2.0-7.7 [facility] Comment on above: Performed By: #### L 100.0100, [id number] #### [facility] [address] [place], [address] Basophils/100 WBC (Bld) 0.7 % Normal 0-1 [facility] Comment on above: Performed By: #### L 100.0100, [id number] #### [facility] [address] [place], [address] Eosinophils/100 WBC (Bld) 2.6 % Normal 0-5 [facility] Comment on above: Performed By: #### L 100.0100, [id number] #### [facility] [address] [place], [address] Erythrocyte distribution width (RBC) [Ratio] 13.9 % Normal 11.6-14.6 [facility] Comment on above: Performed By: #### L 100.0100, [id number] #### [facility] [address] [place], [address] Hematocrit (Bld) [Volume fraction] 38.3 % Normal 37-47 [facility] Comment on above: Performed By: #### L 100.0100, [id number] #### [facility] [address] [place], [address] Hemoglobin (Bld) [Mass/Vol] 12.0 g/dL Normal 12.0-15.0 [facility] Comment on above: Performed By: #### L 100.0100, [id number] #### [facility] [address] [place], [address] IG% 0.200 Normal 0.0-0.9 [facility] Comment on above: Result Comment: IG% - Immature Granulocytes (promyelocytes, myelocytes and metamyelocytes) > 1% indicates that a LEFT SHIFT is Present. Performed By: #### L 100.0100, [id number] #### [facility] [address] [place], [address] Lymphocytes/100 WBC (Bld) 27.9 % Normal 19-41 [facility] Comment on above: Performed By: #### L 100.0100, [id number] #### [facility] [address] [place], [address] MCH (RBC) [Entitic mass] 31.4 pg Normal 27.0-32.0 [facility] Comment on above: Performed By: #### L 100.0100, [id number] #### [facility] [address] [place], [address] MCHC (RBC) [Mass/Vol] 31.3 g/dL Low 32-36 [facility] Comment on above: Performed By: #### L 100.0100, [id number] #### [facility] [address] [place], [address] MCV (RBC) [Entitic vol] 100.3 fL High 81-99 [facility] Comment on above: Performed By: #### L 100.0100, [id number] #### [facility] [address] [place], [address] Monocytes/100 WBC (Bld) 10.1 % High 0-10 [facility] Comment on above: Performed By: #### L 100.0100, [id number] #### [facility] [address] [place], [address] Neutrophils/100 WBC (Bld) 58.5 % Normal 47-70 [facility] Comment on above: Performed By: #### L 100.0100, [id number] #### [facility] [address] [place], [address] Nucleated RBC (Bld) [#/Vol] 0 10*3/uL Normal 0-5 [facility] Comment on above: Performed By: #### L 100.0100, [id number] #### [facility] [address] [place], [address] Platelet mean volume (Bld) [Entitic vol] 10.5 fL Normal 6.2-12.0 [facility] Comment on above: Performed By: #### L 100.0100, [id number] #### [facility] [address] [place], [address] Platelets (Bld) [#/Vol] 250 10*3/uL Normal 150-450 [facility] Comment on above: Performed By: #### L 100.0100, [id number] #### [facility] [address] [place], [address] RBC (Bld) [#/Vol] 3.82 10*6/uL Low 4.2-5.4 [facility] Comment on above: Performed By: #### L 100.0100, [id number] #### [facility] [address] [place], [address] RDW SD 50.2 fl High 35.1-43.9 [facility] Comment on above: Performed By: #### L 100.0100, [id number] #### [facility] [address] [place], [address] WBC (Bld) [#/Vol] 5.7 10*3/uL Normal 4.4-11.0 [facility] Comment on above: Performed By: #### L 100.0100, [id number] #### [facility] [address] [place], [address] Carbon dioxide, total [Moles /volume] in Central venous bloodOrdered By: Laurence Hinds on 04-17-2025 CO2 [Moles/Vol] 21.9 mmol/L 21.0-32.0 [facility] Chloride assayOrdered By: Lucien Hinds on 04-17-2025 Chloride [Moles/Vol] 99 mmol/L 98-108 [facility] Comprehensive Metabolic Prof ilon 04-17-2025 Albumin [Mass/Vol] 4.0 g/dL Normal 3.4-4.8 [facility] Comment on above: Performed By: #### L 500.4050, L100.0100 #### [facility] [address] [place], [address] Albumin/Globulin [Mass ratio] 1.3 {ratio} Normal 0.9-2.4 [facility] Comment on above: Performed By: #### L 500.4050, L100.0100 #### [facility] [address] [place], [address] ALK PHOS 78 U/L Normal 35-104 [facility] Comment on above: Performed By: #### L 500.4050, L100.0100 #### [facility] [address] [place], [address] ALT [Catalytic activity/Vol] 12 U/L Normal <=34 [facility] Comment on above: Performed By: #### L 500.4050, L100.0100 #### [facility] [address] [place], [address] AST [Catalytic activity/Vol] 20 U/L Normal <=31 [facility] Comment on above: Performed By: #### L 500.4050, L100.0100 #### [facility] [address] [place], [address] Bilirubin [Mass/Vol] 0.24 mg/dL Normal 0.00-1.30 [facility] Comment on above: Performed By: #### L 500.4050, L100.0100 #### [facility] [address] [place], [address] BUN/CRE 27.9 RATIO High 10-20 [facility] Comment on above: Performed By: #### L 500.4050, L100.0100 #### [facility] [address] [place], [address] Calcium [Mass/Vol] 10.0 mg/dL Normal 7.6-11.0 [facility] Comment on above: Performed By: #### L 500.4050, L100.0100 #### [facility] [address] [place], [address] Chloride [Moles/Vol] 99 mmol/L Normal 98-108 [facility] Comment on above: Performed By: #### L 500.4050, L100.0100 #### [facility] [address] [place], [address] CO2 [Moles/Vol] 21.9 mmol/L Normal 21.0-32.0 [facility] Comment on above: Performed By: #### L 500.4050, L100.0100 #### [facility] [address] [place], [address] Creatinine [Mass/Vol] 0.79 mg/dL Normal 0.70-1.20 [facility] Comment on above: Performed By: #### L 500.4050, L100.0100 #### [facility] [address] [place], [address] GAP 11 Normal 5-15 [facility] Comment on above: Performed By: #### L 500.4050, L100.0100 #### [facility] [address] [place], [address] GFR/1.73 sq M.predicted among non-blacks MDRD (S/P/Bld) [Vol rate/Area] 71 mL/min/{1.73_m2} Normal >60 [facility] Comment on above: Result Comment: mL/m in/1.73m2 CKD-EPI Creatinine Equation (2020) Performed By: #### L 500.4050, L100.0100 #### [facility] [address] [place], [address] Globulin (S) [Mass/Vol] 3.2 g/dL Normal 2.2-4.2 [facility] Comment on above: Performed By: #### L 500.4050, L100.0100 #### [facility] [address] [place], [address] Glucose [Mass/Vol] 122 mg/dL High 70-99 [facility] Comment on above: Performed By: #### L 500.4050, L100.0100 #### [facility] [address] [place], [address] Potassium [Moles/Vol] 4.4 mmol/L Normal 3.3-5.1 [facility] Comment on above: Performed By: #### L 500.4050, L100.0100 #### [facility] [address] [place], [address] Sodium [Moles/Vol] 131 mmol/L Low 133-145 [facility] Comment on above: Performed By: #### L 500.4050, L100.0100 #### [facility] [address] [place], [address] T PROT 7.2 g/dL Normal 5.9-8.4 [facility] Comment on above: Performed By: #### L 500.4050, L100.0100 #### [facility] [address] [place], [address] Urea nitrogen [Mass/Vol] 22 mg/dL High 4-19 [facility] Comment on above: Performed By: #### L 500.4050, L100.0100 #### [facility] [address] [place], [address] Eosinophil percentageOrdered By: Laurence Hinds on 04-17-2025 Eosinophils/100 WBC (Bld) 2.6 % 0-5 [facility] Erythrocyte distribution wid th ratioOrdered By: Laurence Hinds on 04-17-2025 Erythrocyte distribution width (RBC) [Ratio] 13.9 % 11.6-14.6 [facility] Erythrocyte distribution wid th standard deviationOrdered By: Laurence Hinds on 04-17-2025 Erythrocyte distribution width (RBC) [Ratio] 50.2 fl High 35.1-43.9 [facility] Glomerular filtration rate ( GFR) estimation/1.73 sq m using serum, plasma, or whole bOrdered By: Laurence Hinds on 04-17-2025 GFR/1.73 sq M.predicted among non-blacks MDRD (S/P/Bld) [Vol rate/Area] 71 mL/min/{1.73_m2} >60 [facility] Comment on above: mL/min/1.73m2 CKD-EP I Creatinine Equation (2020) Hematocrit Auto (Bld) [Volum e fraction]Ordered By: Laurence Hinds on 04-17-2025 Hematocrit (Bld) [Volume fraction] 38.3 % 37-47 [facility] Hemoglobin measurementOrdere d By: Laurence Hinds on 04-17-2025 Hemoglobin (Bld) [Mass/Vol] 12.0 g/dL 12.0-15.0 [facility] Immature granulocytes/100 WB C Auto (Bld)Ordered By: Laurenceshelley Hinds on 04-17-2025 Immature granulocytes/100 WBC (Bld) 0.200 % 0.0-0.9 [facility] Comment on above: IG% - Immature Granu locytes (promyelocytes, myelocytes and metamyelocytes) > 1% indicates that a LEFT SHIFT is Present. Laboratory - Chemistry and C hemistry - challengeOrdered By: Laurence Hinds on 04-17-2025 AST [Catalytic activity/Vol] 20 U/L <32 [facility] MCV (mean corpuscular volume ) determinationOrdered By: Laurence Hinds on 04-17-2025 MCV (RBC) [Entitic vol] 100.3 fL High 81-99 [facility] Mean corpuscular hemoglobin (MCH) determinationOrdered By: Laurence Hinds on 04-17-2025 MCH (RBC) [Entitic mass] 31.4 pg 27.0-32.0 [facility] Mean corpuscular hemoglobin concentration (MCHC) determinationOrdered By: Laurence Hinds on 04-17-2025 MCHC (RBC) [Mass/Vol] 31.3 g/dL Low 32-36 [facility] Mean platelet volume determi nationOrdered By: Laurence Hinds on 04-17-2025 Platelet mean volume (Bld) [Entitic vol] 10.5 fL 6.2-12.0 [facility] Monocyte percentageOrdered B y: Laurence Hinds on 04-17-2025 Monocytes/100 WBC (Bld) 10.1 % High 0-10 [facility] Neurology Visit Reporton Neurology Visit Report [facility] [address], [address] [place] [address] OFFICE VISIT Date of Service: 04/17/25 MR#: [id number] Acct: [id number] Name: YANN ADAIR Rep #: [id number] : 1935 Provider: Dr. Chong cordova MD Age/Sex: 89/F Location: [facility]. Status: Signed [facility] Chief Complaint: Details: Interim History: Yann returns for follow-up visit. She has a history of hypertension, diabetes mellitus, psoriatic arthritis and hyperlipidemia. She has been having gait imbalance since the beginning of 2021. Her gait has become slow and unsteady and her steps have become shorter. Her gait unsteadiness has slightly worsened further over the past year. She, at times, needs furniture support to ambulate but generally is able to ambulate independently. She uses a walking stick when walking on uneven surfaces, such as outdoors or in her barn. She denied having focal weakness in the lower extremities or upper extremities. She has numbness and mild tingling pain in the feet. She denies having neck pain or low back pain. She has some blurring of vision and has had bilateral cataract surgery and is being treated for glaucoma. She has chronic hearing loss. She denied having tinnitus. She denied having lightheadedness or dizziness. She presents to the office alone today. She denies having any significant memory difficulty. She is independent in her daily activities. Records indicate a history of vitamin D deficiency. She has been prescribed methotrexate for psoriatic arthritis. She has taken a folate supplement. Vesicare and tamsulosin were not of benefit for her urinary frequency/incontinenc e. The patient's mother had Alzheimer's disease. Mini-Mental status exam score was 24/30 in May 2022. She denied having fatigue. Her B12 level was near the low end of the normal range. A B12 injection was not of benefit for fatigue. Laboratory evaluation for polyneuropathy revealed an abnormal serum free light chains. A subsequent serum protein electrophoresis, serum immunofixation and urine immunofixation were unremarkable. Physical Exam: Neuro: The patient is awake; she responds appropriately; motor strength is 5/5 in the quadriceps bilaterally and foot dorsiflexors bilaterally; gait is mildly slow; she is able to ambulate independently; she is able to subtract 7 from 100; she is able to spell world backwards; she is disoriented to day of the week; visual shin are full in the right eye; she exhibits a nasal visual field cut in the left eye Neck: No bruits Heart: Regular rate and rhythm On prior examination, she exhibited a nasal visual field cut in the left eye and a left afferent pupillary defect Supplemental Info CBC, CMP (05/27/2022): Hemoglobin 11.6, MCV 103.8, sodium 133 Thiamine, B12, folate, vitamin D, TSH, iron ferritin (06/01/22):???B12 215 (near low end of normal range).??? Head MRI with and without contrast (06/12/2022): FINDINGS: No intracranial mass, mass effect or midline shift. No hemorrhage, territorial infarct or acute ischemia. There is mild cerebral atrophy with widening of the extra-axial spaces and ventricular dilatation. There are a limited number of small white matter hyperintensities, distributed throughout the deep white matter tracts of the cerebral hemispheres, consistent with mild chronic white matter ischemic changes. Normal bilateral basal ganglia. Normal thalami. There is no extra-axial fluid accumulation. Normal flow voids within the major intracranial circulation suggesting patency by spin echo criteria. There is no enhancing intra-axial or extra-axial abnormality. Normal sella turcica, pituitary gland, infundibular stalk, optic chiasm and hypothalamus. Normal midbrain, olga lidia and medulla. Normal cerebellum. Normal basal cisterns. Normal bilateral temporal bones. Normal bilateral internal auditory canals. Mild mucosal thickening in the maxillary sinuses. Normal calvarium and skull base. Normal visualized soft tissue structures. IMPRESSION: No acute findings. No evidence of normal pressure hydrocephalus. Mild microvascular ischemic changes. Involutional changes consistent with the patient''s age. Available noncontrast images were reviewed on 02/02/2023.??? Moderate diffuse cerebral atrophy is noted.??? Mild to moderate bilateral periventricular chronic small vessel ischemic disease is noted. Mild mucosal thickening is noted in both maxillary sinuses. CBC, CMP (08/24/22):???hemoglo bin 11.6 (high), MCV 101.9 (high), sodium 135 (low), calcium 11.1 (high) CBC, CMP (12/24/2022): MCV 100.5 (high), sodium 135 (low), BUN 23 (high), BUN/creatinine ratio 28.3 (high) calcium 9.9 (normal) Serum free light chains (02/02/2023): Free kappa light chains 49.1 (high), free kappa/lambda ratio 2.25 (high) CMP, CBC (03/15/2023): BUN/creatinine ratio 24.4 (high), sodium 135 (low), MCV 101 (high) S (more content not included)... Normal [facility] Neutrophil percentageOrdered By: Laurence Hinds on 04-17-2025 Neutrophils/100 WBC (Bld) 58.5 % 47-70 [facility] Nucleated red blood cell per centageOrdered By: Laurence Hinds on 04-17-2025 Nucleated RBC/100 WBC (Bld) [Ratio] 0 % 0-5 [facility] Platelet countOrdered By: Lucien Hinds on 04-17-2025 Platelets (Bld) [#/Vol] 250 10*3/uL 150-450 [facility] Potassium measurement (mass/ volume)Ordered By: Laurence Hinds on 04-17-2025 Potassium (Unsp spec) [Mass/Vol] 4.4 mmol/L 3.3-5.1 [facility] RBC Auto (Bld) [#/Vol]Ordere d By: Laurence Hinds on 04-17-2025 RBC (Bld) [#/Vol] 3.82 10*6/uL Low 4.2-5.4 [facility] Serum creatinine measurement (mass/volume)Ordered By: Laurence Hinds on 04-17-2025 Creatinine [Mass/Vol] 0.79 mg/dL 0.70-1.20 [facility] Serum globulin measurementOr dered By: Laurence Hinds on 04-17-2025 Globulin (S) [Mass/Vol] 3.2 g/dL 2.2-4.2 [facility] Serum glucose measurement (m ass/volume)Ordered By: Laurence Hinds on 04-17-2025 Glucose [Mass/Vol] 122 mg/dL High 70-99 [facility] Serum or plasma alanine meza otransferase (ALT) measurementOrdered By: Laurence Hinds on 04-17-2025 ALT [Catalytic activity/Vol] 12 U/L <35 [facility] Serum or plasma albumin rhonda urement (mass/volume)Ordered By: Laurence Hinds on 04-17-2025 Albumin [Mass/Vol] 4.0 g/dL 3.4-4.8 [facility] Serum or plasma albumin/glob ulin mass ratioOrdered By: Laurence Hinds on 04-17-2025 Albumin/Globulin [Mass ratio] 1.3 {ratio} 0.9-2.4 [facility] Serum or plasma alkaline yosvany sphatase measurementOrdered By: Laurence Hinds on 04-17-2025 ALP [Catalytic activity/Vol] 78 U/L 35-104 [facility] Serum or plasma calcium rhonda urement (mass/volume)Ordered By: Laurence Hinds on 04-17-2025 Calcium [Mass/Vol] 10.0 mg/dL 7.6-11.0 [facility] Serum or plasma urea nitroge n measurement (mass/volume)Ordered By: Laurence Hinds on 04-17-2025 Urea nitrogen [Mass/Vol] 22 mg/dL High 4-19 [facility] Sodium levelOrdered By: Lesa Hinds on 04-17-2025 Sodium [Moles/Vol] 131 mmol/L Low 133-145 [facility] Total proteinOrdered By: Sergio Hinds on 04-17-2025 Protein [Mass/Vol] 7.2 g/dL 5.9-8.4 [facility] White blood cell (WBC) count Ordered By: Laurence Hinds on 04-17-2025 WBC (Bld) [#/Vol] 5.7 10*3/uL 4.4-11.0 [facility] Absolute lymphocyte countOrd ered By: Laurence Hinds on 01-19-2025 Lymphocytes Auto (Unsp spec) [#/Vol] 1.63 10*3/uL 0.83-4.51 [facility] Absolute neutrophil countOrd ered By: Laurence Hinds on 01-19-2025 Neutrophils (Bld) [#/Vol] 4.3 10*3/uL 2.0-7.7 [facility] Anion gap in Serum or Plasma Ordered By: Laurence Hinds on 01-19-2025 Anion gap [Moles/Vol] 11 mmol/L 5-15 [facility] Automated lymphocyte count a s percentage of total leukocytesOrdered By: Laurenceshelley Hinds on 01-19-2025 Lymphocytes/100 WBC Auto (Unsp spec) 23.7 % 19- [facility] BUN/creatinine ratioOrdered By: Laurenceshelley Hinds on 01-19-2025 Urea nitrogen/Creatinine [Mass ratio] 23.5 mg/mg High 10-20 [facility] Basophil percentageOrdered B y: Laurence Hinds on 01-19-2025 Basophils/100 WBC (Bld) 0.4 % 0-1 [facility] Bilirubin, totalOrdered By: Laurence Hinds on 01-19-2025 Bilirubin [Mass/Vol] 0.35 mg/dL 0.00-1.30 [facility] CBC W/Diff, Automatedon Absolute Lymph 1.63 X10 3/uL Normal 0.83-4.51 [facility] Comment on above: Performed By: #### L 500.4050, L100.0100 #### [facility] [address] [place], [address] Absolute Neut 4.3 X10 3/uL Normal 2.0-7.7 [facility] Comment on above: Performed By: #### L 500.4050, L100.0100 #### [facility] [address] [place], [address] Basophils/100 WBC (Bld) 0.4 % Normal 0-1 [facility] Comment on above: Performed By: #### L 500.4050, L100.0100 #### [facility] [address] [place], [address] Eosinophils/100 WBC (Bld) 1.7 % Normal 0-5 [facility] Comment on above: Performed By: #### L 500.4050, L100.0100 #### [facility] [address] [place], [address] Erythrocyte distribution width (RBC) [Ratio] 13.7 % Normal 11.6-14.6 [facility] Comment on above: Performed By: #### L 500.4050, L100.0100 #### [facility] [address] [place], [address] Hematocrit (Bld) [Volume fraction] 38.7 % Normal 37-47 [facility] Comment on above: Performed By: #### L 500.4050, L100.0100 #### [facility] [address] [place], [address] Hemoglobin (Bld) [Mass/Vol] 12.0 g/dL Normal 12.0-15.0 [facility] Comment on above: Performed By: #### L 500.4050, L100.0100 #### [facility] [address] [place], [address] IG% 0.400 Normal 0.0-0.9 [facility] Comment on above: Result Comment: IG% - Immature Granulocytes (promyelocytes, myelocytes and metamyelocytes) > 1% indicates that a LEFT SHIFT is Present. Performed By: #### L 500.4050, L100.0100 #### [facility] [address] [place], [address] Lymphocytes/100 WBC (Bld) 23.7 % Normal 19-41 [facility] Comment on above: Performed By: #### L 500.4050, L100.0100 #### [facility] [address] [place], [address] MCH (RBC) [Entitic mass] 30.9 pg Normal 27.0-32.0 [facility] Comment on above: Performed By: #### L 500.4050, L100.0100 #### [facility] [address] [place], [address] MCHC (RBC) [Mass/Vol] 31.0 g/dL Low 32-36 [facility] Comment on above: Performed By: #### L 500.4050, L100.0100 #### [facility] [address] [place], [address] MCV (RBC) [Entitic vol] 99.7 fL High 81-99 [facility] Comment on above: Performed By: #### L 500.4050, L100.0100 #### [facility] [address] [place], [address] Monocytes/100 WBC (Bld) 10.8 % High 0-10 [facility] Comment on above: Performed By: #### L 500.4050, L100.0100 #### [facility] [address] [place], [address] Neutrophils/100 WBC (Bld) 63.0 % Normal 47-70 [facility] Comment on above: Performed By: #### L 500.4050, L100.0100 #### [facility] [address] [place], [address] Nucleated RBC (Bld) [#/Vol] 0 10*3/uL Normal 0-5 [facility] Comment on above: Performed By: #### L 500.4050, L100.0100 #### [facility] [address] [place], [address] Platelet mean volume (Bld) [Entitic vol] 10.5 fL Normal 6.2-12.0 [facility] Comment on above: Performed By: #### L 500.4050, L100.0100 #### [facility] [address] [place], [address] Platelets (Bld) [#/Vol] 294 10*3/uL Normal 150-450 [facility] Comment on above: Performed By: #### L 500.4050, L100.0100 #### [facility] [address] [place], [address] RBC (Bld) [#/Vol] 3.88 10*6/uL Low 4.2-5.4 [facility] Comment on above: Performed By: #### L 500.4050, L100.0100 #### [facility] [address] [place], [address] RDW SD 49.4 fl High 35.1-43.9 [facility] Comment on above: Performed By: #### L 500.4050, L100.0100 #### [facility] [address] [place], [address] WBC (Bld) [#/Vol] 6.9 10*3/uL Normal 4.4-11.0 [facility] Comment on above: Performed By: #### L 500.4050, L100.0100 #### [facility] [address] [place], [address] Carbon dioxide, total [Moles /volume] in Central venous bloodOrdered By: Laurence Hinds on 01-19-2025 CO2 [Moles/Vol] 23.6 mmol/L 21.0-32.0 [facility] Chloride assayOrdered By: Lucien Hinds on 01-19-2025 Chloride [Moles/Vol] 96 mmol/L Low 98-108 [facility] Comprehensive Metabolic Prof ilon 01-19-2025 Albumin [Mass/Vol] 4.1 g/dL Normal 3.4-4.8 [facility] Comment on above: Performed By: #### L 500.4050, L100.0100 #### [facility] [address] [place], [address] Albumin/Globulin [Mass ratio] 1.3 {ratio} Normal 0.9-2.4 [facility] Comment on above: Performed By: #### L 500.4050, L100.0100 #### [facility] [address] [place], [address] ALK PHOS 90 U/L Normal 35-104 [facility] Comment on above: Performed By: #### L 500.4050, L100.0100 #### [facility] [address] [place], [address] ALT [Catalytic activity/Vol] 10 U/L Normal <=34 [facility] Comment on above: Performed By: #### L 500.4050, L100.0100 #### [facility] [address] [place], [address] AST [Catalytic activity/Vol] 21 U/L Normal <=31 [facility] Comment on above: Performed By: #### L 500.4050, L100.0100 #### [facility] [address] [place], [address] Bilirubin [Mass/Vol] 0.35 mg/dL Normal 0.00-1.30 [facility] Comment on above: Performed By: #### L 500.4050, L100.0100 #### [facility] [address] [place], [address] BUN/CRE 23.5 RATIO High 10-20 [facility] Comment on above: Performed By: #### L 500.4050, L100.0100 #### [facility] [address] [place], [address] Calcium [Mass/Vol] 10.0 mg/dL Normal 7.6-11.0 [facility] Comment on above: Performed By: #### L 500.4050, L100.0100 #### [facility] [address] [place], [address] Chloride [Moles/Vol] 96 mmol/L Low 98-108 [facility] Comment on above: Performed By: #### L 500.4050, L100.0100 #### [facility] [address] [place], [address] CO2 [Moles/Vol] 23.6 mmol/L Normal 21.0-32.0 [facility] Comment on above: Performed By: #### L 500.4050, L100.0100 #### [facility] [address] [place], [address] Creatinine [Mass/Vol] 0.76 mg/dL Normal 0.70-1.20 [facility] Comment on above: Performed By: #### L 500.4050, L100.0100 #### [facility] [address] [place], [address] GAP 11 Normal 5-15 [facility] Comment on above: Performed By: #### L 500.4050, L100.0100 #### [facility] [address] [place], [address] GFR/1.73 sq M.predicted among non-blacks MDRD (S/P/Bld) [Vol rate/Area] 75 mL/min/{1.73_m2} Normal >60 [facility] Comment on above: Result Comment: mL/m in/1.73m2 CKD-EPI Creatinine Equation (2020) Performed By: #### L 500.4050, L100.0100 #### [facility] [address] [place], [address] Globulin (S) [Mass/Vol] 3.1 g/dL Normal 2.2-4.2 [facility] Comment on above: Performed By: #### L 500.4050, L100.0100 #### [facility] [address] [place], [address] Glucose [Mass/Vol] 110 mg/dL High 70-99 [facility] Comment on above: Performed By: #### L 500.4050, L100.0100 #### [facility] [address] [place], [address] Potassium [Moles/Vol] 4.2 mmol/L Normal 3.3-5.1 [facility] Comment on above: Performed By: #### L 500.4050, L100.0100 #### [facility] [address] [place], [address] Sodium [Moles/Vol] 131 mmol/L Low 133-145 [facility] Comment on above: Performed By: #### L 500.4050, L100.0100 #### [facility] [address] [place], [address] T PROT 7.2 g/dL Normal 5.9-8.4 [facility] Comment on above: Performed By: #### L 500.4050, L100.0100 #### [facility] [address] [place], [address] Urea nitrogen [Mass/Vol] 18 mg/dL Normal 4-19 [facility] Comment on above: Performed By: #### L 500.4050, L100.0100 #### [facility] [address] [place], [address] Eosinophil percentageOrdered By: Laurence Hinds on 01-19-2025 Eosinophils/100 WBC (Bld) 1.7 % 0-5 [facility] Erythrocyte distribution wid th ratioOrdered By: Laurence Hinds on 01-19-2025 Erythrocyte distribution width (RBC) [Ratio] 13.7 % 11.6-14.6 [facility] Erythrocyte distribution wid th standard deviationOrdered By: Laurence Hinds on 01-19-2025 Erythrocyte distribution width (RBC) [Entitic vol] 49.4 fL High 35.1-43.9 [facility] Erythrocyte distribution width (RBC) [Ratio] 49.4 fl High 35.1-43.9 [facility] GFR/1.73 sq M.predicted ortiz g non-blacks MDRD (S/P/Bld) [Vol rate/Area]Ordered By: Laurence Hinds on 01-19-2025 Estimated GFR (MDRD) Non-Af Amer 75 >60 [facility] Comment on above: mL/min/1.73m2 CKD-EP I Creatinine Equation (2020) Glomerular filtration rate ( GFR) estimation/1.73 sq m using serum, plasma, or whole bOrdered By: Laurence Hinds on 01-19-2025 GFR/1.73 sq M.predicted among non-blacks MDRD (S/P/Bld) [Vol rate/Area] 75 mL/min/{1.73_m2} >60 [facility] Comment on above: mL/min/1.73m2 CKD-EP I Creatinine Equation (2020) Hematocrit Auto (Bld) [Volum e fraction]Ordered By: Laurence Hinds on 01-19-2025 Hematocrit (Bld) [Volume fraction] 38.7 % 37-47 [facility] Hemoglobin measurementOrdere d By: Laurence Hinds on 01-19-2025 Hemoglobin (Bld) [Mass/Vol] 12.0 g/dL 12.0-15.0 [facility] Immature granulocytes/100 WB C Auto (Bld)Ordered By: Laurence Hinds on 01-19-2025 Immature granulocytes/100 WBC (Bld) 0.400 % 0.0-0.9 [facility] Comment on above: IG% - Immature Granu locytes (promyelocytes, myelocytes and metamyelocytes) > 1% indicates that a LEFT SHIFT is Present. Laboratory - Chemistry and C hemistry - challengeOrdered By: Laurence Hinds on 01-19-2025 AST [Catalytic activity/Vol] 21 U/L <32 [facility] Lymphocytes Auto (Unsp spec) [#/Vol]Ordered By: Laurence Hinds on 01-19-2025 Lymphocytes (Bld) [#/Vol] 1.63 10*3/uL 0.83-4.5 1 [facility] Lymphocytes/100 WBC Auto (Un sp spec)Ordered By: Laurence Hinds on 01-19-2025 Lymphocytes/100 WBC (Bld) 23.7 % 19-41 [facility] MCV (mean corpuscular volume ) determinationOrdered By: Laurence Hinds on 01-19-2025 MCV (RBC) [Entitic vol] 99.7 fL High 81-99 [facility] Mean corpuscular hemoglobin (MCH) determinationOrdered By: Laurence Hinds on 01-19-2025 MCH (RBC) [Entitic mass] 30.9 pg 27.0-32.0 [facility] Mean corpuscular hemoglobin concentration (MCHC) determinationOrdered By: Laurence Hinds on 01-19-2025 MCHC (RBC) [Mass/Vol] 31.0 g/dL Low 32-36 [facility] Mean platelet volume determi nationOrdered By: Laurence Hinds on 01-19-2025 Platelet mean volume (Bld) [Entitic vol] 10.5 fL 6.2-12.0 [facility] Monocyte percentageOrdered B y: Laurence Hinds on 01-19-2025 Monocytes/100 WBC (Bld) 10.8 % High 0-10 [facility] Neutrophil percentageOrdered By: Laurence Hinds on 01-19-2025 Neutrophils/100 WBC (Bld) 63.0 % 47-70 [facility] Nucleated red blood cell per centageOrdered By: Laurence Hinds on 01-19-2025 Nucleated RBC/100 WBC (Bld) [Ratio] 0 % 0-5 [facility] Platelet countOrdered By: Lucien Hinds on 01-19-2025 Platelets (Bld) [#/Vol] 294 10*3/uL 150-450 [facility] Potassium (Unsp spec) [Mass/ Vol]Ordered By: Laurence Hinds on 01-19-2025 Potassium [Moles/Vol] 4.2 mmol/L 3.3-5.1 [facility] Potassium measurement (mass/ volume)Ordered By: Laurence Hinds on 01-19-2025 Potassium (Unsp spec) [Mass/Vol] 4.2 mmol/L 3.3-5.1 [facility] RBC Auto (Bld) [#/Vol]Ordere d By: Laurence Hinds on 01-19-2025 RBC (Bld) [#/Vol] 3.88 10*6/uL Low 4.2-5.4 [facility] Serum creatinine measurement (mass/volume)Ordered By: Laurence Hinds on 01-19-2025 Creatinine [Mass/Vol] 0.76 mg/dL 0.70-1.20 [facility] Serum globulin measurementOr dered By: Laurence Hinds on 01-19-2025 Globulin (S) [Mass/Vol] 3.1 g/dL 2.2-4.2 [facility] Serum glucose measurement (m ass/volume)Ordered By: Laurence Hinds on 01-19-2025 Glucose [Mass/Vol] 110 mg/dL High 70-99 [facility] Serum or plasma alanine meza otransferase (ALT) measurementOrdered By: Laurence Hinds on 01-19-2025 ALT [Catalytic activity/Vol] 10 U/L <35 [facility] Serum or plasma albumin rhonda urement (mass/volume)Ordered By: Laurence Hinds on 01-19-2025 Albumin [Mass/Vol] 4.1 g/dL 3.4-4.8 [facility] Serum or plasma albumin/glob ulin mass ratioOrdered By: Laurence Hinds on 01-19-2025 Albumin/Globulin [Mass ratio] 1.3 {ratio} 0.9-2.4 [facility] Serum or plasma alkaline yosvany sphatase measurementOrdered By: Laurenec Hinds on 01-19-2025 ALP [Catalytic activity/Vol] 90 U/L 35-104 [facility] Serum or plasma calcium rhonda urement (mass/volume)Ordered By: Laurence Hinds on 01-19-2025 Calcium [Mass/Vol] 10.0 mg/dL 7.6-11.0 [facility] Serum or plasma urea nitroge n measurement (mass/volume)Ordered By: Laurence Hinds on 01-19-2025 Urea nitrogen [Mass/Vol] 18 mg/dL 4-19 [facility] Sodium levelOrdered By: Lesa Hinds on 01-19-2025 Sodium [Moles/Vol] 131 mmol/L Low 133-145 [facility] Total proteinOrdered By: Sergio Hinds on 01-19-2025 Protein [Mass/Vol] 7.2 g/dL 5.9-8.4 [facility] White blood cell (WBC) count Ordered By: Laurence Hinds on 01-19-2025 WBC (Bld) [#/Vol] 6.9 10*3/uL 4.4-11.0 [facility] CNOVon 12-01-2024 CNOV Office Visit (PODIWS ) YANN ADAIR ([id number]) 1935 F Date Time Provider Department 12/01/24 1:40 PM ANGELINA GODWIN PODIWS During your visit today, we recorded the following information about you: Bernice Eason LPN 12/01/2024 1:47 PM Signed Patient presents with: Right Foot - Established Patient, Pain: Nail Care Left Foot - Established Patient, Pain: Nail Care ALMAS Levy Matthew 12/01/2024 1:31 PM Signed Diabetes Foot Care Instructions When you have diabetes, proper foot care is very important. Poor foot care may lead to amputation of a foot or leg. As a person with diabetes, you are more vulnerable to foot problems, because diabetes can damage your nerves and reduce blood flow to your feet. Here are some diabetes foot care tips to follow: Wash and Dry Your Feet Daily Use mild soaps Use warm water Pat your skin dry; do not rub. Thoroughly dry your feet. After washing, use lotion on your feet to prevent cracking. Do not put lotion between your toes. Examine Your Feet Each Day Check the tops and bottoms of your feet. Have someone else look at your feet if you cannot see them. Check for dry, cracked skin. Look for blisters, cuts, scratches, or other sores. Check for redness, increased warmth, or tenderness when touching any area of your feet. Check for ingrown toenails, corns, and calluses. If you get a blister or sore from your shoes, do not pop it. Apply a bandage and wear a different pair of shoes. Take Care of Your Toenails Cut toenails after bathing, when they are soft. Cut toenails straight across and smooth with a nail file. Avoid cutting into the corners of toes. Do not cut cuticles. If you have neuropathy (or decreased sensation in your feet) a transit vehicle inspector should always cut your toenails. Be Careful When Exercising Walk and exercise in comfortable shoes. Do not exercise when you have open sores on your feet. Protect Your Feet With Shoes and Socks Never go barefoot. Always protect your feet by wearing shoes or hard-soled slippers or footwear. Avoid shoes with high heels and pointed toes. Avoid shoes that expose your toes or heels (such as open-toed shoes or sandals). These types of shoes increase your risk for injury and potential infections. Try on new footwear with the type of socks you usually wear. Do not wear new shoes for more than an hour at a time. Change your socks daily. Look and feel inside your shoes before putting them on to make sure there are no foreign objects or rough areas. Avoid tight socks. Wear natural-fiber socks (cotton, wool, or a cotton-wool blend). Wear special shoes if your health care provider recommends them. Wear shoes/boots that will protect your feet from various weather conditions (cold, moisture, etc.). Make sure your shoes fit properly. If you have neuropathy (nerve damage), you may not notice that your shoes are too tight. Perform the footwear test described below. Footwear Test Use this simple test to see if your shoes fit correctly: Stand on a piece of paper. (Make sure you are standing and not sitting, because your foot changes shape when you stand.) Trace the outline of your foot. Trace the outline of your shoe. Compare the tracings: Is the shoe too narrow? Is your foot crammed into the shoe? The shoe should be at least 1/2 inch longer than your longest toe and as wide as your foot. Proper Shoe Choices The following types of shoes are best for people with diabetes Closed toes and heels Leather uppers without a seam inside At least 1/2 inch extra space at the end of your longest toe Inside of shoe should be soft with no rough areas Outer sole should be made of stiff material Shoes should be at least as wide as your feet Tips for Foot Care in Diabetes Don't wait to treat a minor foot problem if you have diabetes. Follow your health care provider's guidelines and first aid guidelines. Report foot injuries and infections to your health care provider immediately. Check water temperature with your elbow, not your foot. Do not use a heating pad on your feet. Do not cross your legs. Do not self-treat your corns, calluses, or other foot problems. Go to your health care provider or transit vehicle inspector to treat these conditions. Angelina Godwin 12/01/2024 1:47 PM Signed Last saw pcp: 11/27/24 Subjective: Patient presents to clinic c/o painful toenails. They state that the nails are especially painful with shoe gear and pressure. Patient states that nails 1-5 b/l are painful. Patient admits to being diabetic. No other pedal complaints at this time. Patient states no change in medications or medical history since last visit. Objective: Patient presents to clinic ambulating in clogs Vasc: DP and PT pulses are nonpalpable bilateral. CFT is less than 5 seconds bilateral. Skin temperature is warm (more content not included)... Normal [facility] CNOVon 11-27-2024 CNOV Office Visit (INTMWS ) YANN ADAIR ([id number]) 1935 F Date Time Provider Department 11/27/24 2:00 PM SANDRA SIGALA INTMWS During your visit today, we recorded the following information about you: Pulse Blood pressure Weight Height 72/minute 110/62 65.9 kg 1.568 m Sandra Sigala APRN.CNP 11/28/2024 11:38 AM Signed Yann Martha Adair is a 89 year old female here for a Medicare wellness visit. Medicare Health Risk Assessment General Health Very good Exercise: Minutes/Day 0 min Exercise: Days/Week 0 days Alcohol: Daily Use Never Alcohol: Drinks/Day Patient does not drink Alcohol: 6 or more drinks Never Feel off balance Yes Concerns: Teeth/Dentures No Concerns: Sexual function No Troubled by feelings None of the above Frequency: Eating healthy diet Nearly every day ADLs requiring help Driving Safety precautions in home/vehicle Yes Smoke, vape, chews tobacco No Difficulty hearing Yes Difficulty seeing Yes Current Providers Specialists: I have reviewed specialist-related care of the patient in the medical record. Current care team: Patient Care Team: Fitz Walters MD as PCP - General Sandra Sigala APRN.CNP as Media Professional (Internal Medicine) Retinal specialist- [facility] Dr. Gould-neurologist Dr. Godwin-transit vehicle inspector Dr. Hinds-rheumatologi st Medical/Family history review Reviewed and updated problem list, medical/surgical/fami ly/social history, medications, and allergies. Opioid use review Opioid Medications (last 90 days) No data to display Anxiety/Depression screening Recommendation: no further intervention at this time Cognitive screening Mini Cog Score: 4 Cognitive screening reviewed and No further action needed (score 3-5). Functional Observation Was the patient's Timed Up AND Go test unsteady or >= 12 seconds? No Advance Care Planning Surrogate decision maker documented and/or advance directives scanned in chart Measurements BP 110/62 Pulse 72 Ht 156.8 cm (5' 1.75) Wt 65.9 kg (145 lb 4.5 oz) SpO2 98% BMI 26.79 kg/m? Vision Screening: Follows with optometry/ophthalmolo gy Assessment/Plan Medicare annual wellness visit, subsequent (Z00.00) - Counseled on healthy diet and regular exercise - Fall avoidance information provided - Personalized prevention plan provided Additional Concerns The following concerns were also discussed with the patient: She is taking medications as prescribed, denies side effects. She does not check her blood sugars at home. She has been feeling like her blood sugar drops a few days a week, symptoms resolve with eating. She does not check her BP at home. PHYSICAL EXAM BP 110/62 Pulse 72 Ht 156.8 cm (5' 1.75) Wt 65.9 kg (145 lb 4.5 oz) SpO2 98% BMI 26.79 kg/m? GENERAL: well appearing, alert, in no acute distress CARDIOVASCULAR: regular rate and rhythm. No murmur, rubs or gallops. PULMONARY: clear to auscultation, no wheezing, rhonchi, or crackles ASSESSMENT/PLAN: 1. Medicare annual wellness visit, subsequent - ICD9: V70.0, ICD10: Z00.00 (primary diagnosis) See medicare wellness plan 2. Type 2 diabetes, controlled, with peripheral neuropathy (HCC) - ICD9: 250.60, 357.2, ICD10: E11.42 - Controlled - Stop glipizide due to frequent hypoglycemic symptoms - continue with Metformin - follow-up in 6 months with labs - ALBUMIN/CREATININE RATIO, URINE - HEMOGLOBIN A1C 3. Essential hypertension - ICD9: 401.9, ICD10: I10 - Controlled - Continue current medications - Recommend home blood pressure monitoring, to bring results to next visit - Encouraged sodium restriction, DASH or Mediterranean diet 4. Hyperlipidemia, unspecified hyperlipidemia type - ICD9: 272.4, ICD10: E78.5 - Controlled - Continue current medications 5. Encounter for immunization - ICD9: V03.89, ICD10: Z23 - INFLUENZA VACCINE, PRSV FREE, AGE 65+ YR, HIGH DOSE, TRIVALENT (FLUZONE HIGH-DOSE) - [employer] COVID-19 VACCINE AGE 12+ YR (COMIRNATY) Sandra Sigala APRN.Sandra Orourke APRN.JAIME 11/27/2024 2:13 PM Addendum Screening schedule The following prevention plan is recommended: RSV Vaccine(1 - 1-dose 75+ series) Never done WHAT YOU CAN DO TO PREVENT FALLS Many falls can be prevented. By making some changes, you can lower your chances of falling. Four things YOU can do to prevent falls for you* and your caregiver 1. Begin a regular exercise program Exercise is one of the most important ways to lower your chances of falling. It makes you stronger and helps you feel better. Exercises that improve balance and coordination (like Fabricio Chi) are the most helpful. Lack of exercise leads to weakness and increases your chances of falling. Ask your doctor or health care provider about the best type of exercise program for you. 2. H (more content not included)... Normal [facility] Basic metabolic 2000 panelon 11-22-2024 Anion gap [Moles/Vol] 9 mmol/L Normal 8-15 [facility] Comment on above: Order Comment: Speci men Type: BLOOD SPECIMEN Ordering Facility: [facility] Address: [address] [place] [address] Performed By: #### 2 432-2, 13210-4 #### [facility] CLIA [id number] [address] [place] [address] [place] Calcium [Mass/Vol] 10.3 mg/dL High 8.5-10.2 [facility] Comment on above: Order Comment: Speci men Type: BLOOD SPECIMEN Ordering Facility: [facility] Address: [address] [place] [address] Performed By: #### 2 432-2, 62443-9 #### [facility] CLIA [id number] [address] [place] [address] [place] Chloride [Moles/Vol] 99 mmol/L Normal 98-[address] [facility] Comment on above: Order Comment: Speci men Type: BLOOD SPECIMEN Ordering Facility: [facility] Address: [address] [place] [address] Performed By: #### 2 432-2, 04957-1 #### [facility] CLIA [id number] [address] [place] [address] [place] CO2 [Moles/Vol] 26 mmol/L Normal 22-30 [facility] Comment on above: Order Comment: Speci men Type: BLOOD SPECIMEN Ordering Facility: [facility] Address: [address] [place] [address] Performed By: #### 2 4321-2, 29452-2 #### [facility] CLIA [id number] [address] [place] [address] [place] Creatinine [Mass/Vol] 0.78 mg/dL Normal 0.58-0.96 [facility] Comment on above: Order Comment: Speci men Type: BLOOD SPECIMEN Ordering Facility: [facility] Address: [address] [place] [address] Performed By: #### 2 432-2, #### [facility] CLIA [id number] [address] [place] [address] [place] Creatinine and Glomerular filtration rate.predicted panel (S/P/Bld) 73 mL/min/1.73m??? Normal >=60 [facility] Comment on above: Order Comment: Speci men Type: BLOOD SPECIMEN Ordering Facility: [facility] Address: [address] [place] [address] Result Comment: Zoila mated Glomerular Filtration Rate (eGFR) is calculated using the 2020 CKD-EPI creatinine equation. This equation utilizes serum creatinine, sex, and age as parameters. The creatinine assay has traceable calibration to isotope dilution-mass spectrometry. Refer to KDIGO guidelines for clinical interpretation. In patients with unstable renal function, e.g. those with acute kidney injury, the eGFR may not accurately reflect actual GFR. Performed By: #### 2 4321-2, 65385-0 #### [facility] CLIA [id number] [address] [place] [address] [place] Glucose [Mass/Vol] 107 mg/dL High 74-99 [facility] Comment on above: Order Comment: Speci men Type: BLOOD SPECIMEN Ordering Facility: [facility] Address: [address] [place] [address] Result Comment: The [place] Diabetes Association (ADA) provides guidance for cutoff values for fasting glucose and random glucose. The ADA defines fasting as no caloric intake for at least 8 hours. Fasting plasma glucose results between 100 to 125 mg/dL indicate increased risk for diabetes (prediabetes). Fasting plasma glucose results greater than or equal to 126 mg/dL meet the criteria for diagnosis of diabetes. In the absence of unequivocal hyperglycemia, results should be confirmed by repeat testing. In a patient with classic symptoms of hyperglycemia or hyperglycemic crisis, random plasma glucose results greater than or equal to 200 mg/dL meet the criteria for diagnosis of diabetes. Reference: Standards of Medical Care in Diabetes 2016, [place] Diabetes Association. Diabetes Care. 2016.39(Suppl 1). Performed By: #### 2 4321-2, 22882-4 #### [facility] CLIA [id number] [address] [place] [address] [place] Potassium [Moles/Vol] 4.6 mmol/L Normal 3.7-5.1 [facility] Comment on above: Order Comment: Speci men Type: BLOOD SPECIMEN Ordering Facility: [facility] Address: [address] [place] [address] Performed By: #### 2 4321-2, 26596-7 #### [facility] CLIA [id number] [address] [place] [address] [place] Sodium [Moles/Vol] 134 mmol/L Low 136-144 [facility] Comment on above: Order Comment: Speci men Type: BLOOD SPECIMEN Ordering Facility: [facility] Address: [address] [place] [address] Performed By: #### 2 4321-2, 52458-1 #### [facility] CLIA [id number] [address] [place] [address] [place] Urea nitrogen [Mass/Vol] 18 mg/dL Normal 7-21 [facility] Comment on above: Order Comment: Speci men Type: BLOOD SPECIMEN Ordering Facility: [facility] Address: [address] [place] [address] Performed By: #### 2 4321-2, 83319-9 #### [facility] CLIA [id number] [address] [place] [address] OF [facility] HbA1c (Bld)on 11-22-2024 Average glucose Estimated from glycated hemoglobin (Bld) [Mass/Vol] 105 mg/dL Normal [facility] Comment on above: Order Comment: Maria Luisa esquivel Type: BLOOD SPECIMEN Ordering Facility: [facility] Address: [address] [place] [address] Result Comment: eAG: (Estimated average glucose) is a calculated value from HgbA1c and is telephone claims representative of the average blood glucose level in the last 2-3 month period. Performed By: #### 5 5454-3 #### [facility] CLIA [id number] [address] [place] [address] HbA1c (Bld) [Mass fraction] 5.3 % Normal 4.3-5.6 [facility] Comment on above: Order Comment: Maria Luisa esquivel Type: BLOOD SPECIMEN Ordering Facility: [facility] Address: [address] [place] [address] Result Comment: [place] Diabetes Association guidelines indicate that patients with HgbA1c in the range 5.7-6.4% are at increased risk for development of diabetes, and intervention by lifestyle modification may be beneficial. HgbA1c greater or equal to 6.5% is considered diagnostic of diabetes. Performed By: #### 5 5454-3 #### [facility] CLIA [id number] [address] [place] [address] [place] Lipid 1996 panelon 5 Cholesterol [Mass/Vol] 132 mg/dL Normal <200 [facility] Comment on above: Order Comment: Maria Luisa esquivel Type: BLOOD SPECIMEN Ordering Facility: [facility] Address: [address] [place] [address] Result Comment: <200 mg/dL, Desirable 200-239 mg/dL, Borderline high >239 mg/dL, High Performed By: #### 2 4321-2, 44065-3 #### [facility] CLIA [id number] [address] [place] Cholesterol in HDL [Mass/Vol] 48 mg/dL Normal >39 [facility] Comment on above: Order Comment: Maria Luisa esquivel Type: BLOOD SPECIMEN Ordering Facility: [facility] Address: [address] [place] [address] Result Comment: 40-5 9 mg/dL, Acceptable >59 mg/dL, High: Negative risk factor for coronary heart disease <40 mg/dL, Low: Positive risk factor for coronary heart disease Performed By: #### 2 4321-2, 69006-3 #### [facility] CLIA [id number] [address] [place] [address] [place] [facility] Cholesterol in LDL [Mass/Vol] 69 mg/dL Normal <100 [facility] Comment on above: Order Comment: Maria Luisa esquivel Type: BLOOD SPECIMEN Ordering Facility: [facility] Address: [address] [place] [address] Result Comment: <100 mg/dL, Optimal 100-129 mg/dL, Near optimal/above optimal 130-159 mg/dL, Borderline high 160-189 mg/dL, High >189 mg/dL, Very high Secondary prevention optimal LDL Cholesterol levels are recommended to be < 70 mg/dL Performed By: #### 2 4321-2, 36325-6 #### [facility] CLIA [id number] [address] [place] [address] OF [facility] Cholesterol in LDL/Cholesterol in HDL [Mass ratio] 1.44 {ratio} Normal <2.54 [facility] Comment on above: Order Comment: Maria Luisa sierra Type: BLOOD SPECIMEN Ordering Facility: [facility] Address: [address] [place] [address] Result Comment: Abdelrahman day: 1. National Cholesterol Education Program ATP III Guideline At-A-Glance Quick Desk Reference: National Heart, Lung, and Blood Heartwell. National Institutes of Health. 2001: NIH Publication No. 01-3305. 2. An International Atherosclerosis Society position paper: global recommendations for the management of dyslipidemia: executive summary, Atherosclerosis. 2014: 232(2):410-413. Performed By: #### 2 4321-2, 11130-5 #### [facility] CLIA [id number] [address] [place] [address] [place] Cholesterol in VLDL [Mass/Vol] 15 mg/dL Normal <30 [facility] Comment on above: Order Comment: Speci men Type: BLOOD SPECIMEN Ordering Facility: [facility] Address: [address] [place] [address] Performed By: #### 2 4321-2, 75253-5 #### [facility] CLIA [id number] [address] [place] [address] [place] Cholesterol non HDL [Mass/Vol] 84 mg/dL Normal <130 [facility] Comment on above: Order Comment: Speci men Type: BLOOD SPECIMEN Ordering Facility: [facility] Address: [address] [place] [address] Result Comment: <130 mg/dL, Optimal 130-159 mg/dL, Near optimal/above optimal 160-189 mg/dL, Borderline high 190-219 mg/dL, High >219 mg/dL, Very high Secondary prevention optimal non HDL Cholesterol levels are recommended to be <100 mg/dL Performed By: #### 2 4321-2, 66610-8 #### [facility] CLIA [id number] [address] [place] [address] [place] Cholesterol.total/Cholest lisa in HDL [Mass ratio] 2.75 {ratio} Normal <5.10 [facility] Comment on above: Order Comment: Speci men Type: BLOOD SPECIMEN Ordering Facility: [facility] Address: [address] [place] [address] Performed By: #### 2 4321-2, 18022-0 #### [facility] CLIA [id number] [address] [place] [address] [place] FASTING TIME 12 hrs Normal [facility] Comment on above: Order Comment: Speci men Type: BLOOD SPECIMEN Ordering Facility: [facility] Address: [address] [place] [address] Performed By: #### 2 4321-2, 40603-0 #### [facility] CLIA [id number] [address] [place] [address] [place] Triglyceride [Mass/Vol] 77 mg/dL Normal <150 [facility] Comment on above: Order Comment: Speci men Type: BLOOD SPECIMEN Ordering Facility: [facility] Address: [address] [place] [address] Result Comment: <150 mg/dL, Normal 150-199 mg/dL, Borderline high 200-499 mg/dL, High >499 mg/dL, Very high Performed By: #### 2 4321-2, 85737-4 #### [facility] CLIA [id number] [address] [place] [address] [place] Absolute neutrophil countOrd ered By: Laurence Hinds on 10-17-2024 Neutrophils (Bld) [#/Vol] 3.7 10*3/uL 2.0-7.7 [facility] Albumin to globulin ratioOrd ered By: Laurence Hinds on 10-17-2024 Albumin/Globulin [Mass ratio] 0.9 {ratio} 0.9-2.4 [facility] Basophil percentageOrdered B y: Laurence Hinds on 10-17-2024 Basophils/100 WBC (Bld) 0.6 % 0-1 [facility] Bilirubin, totalOrdered By: Laurence Hinds on 10-17-2024 Bilirubin [Mass/Vol] 0.50 mg/dL 0.20-1.00 [facility] Comment on above: For patients on eltr ombopag therapy, use of Dimension [place] TBIL is not recommended. Blood urea nitrogen (BUN)/cr eatinine ratioOrdered By: Laurence Hinds on 10-17-2024 Urea nitrogen/Creatinine [Mass ratio] 24.7 mg/mg High 10-20 [facility] CBC W/Diff, Automatedon 12 Absolute Lymph 1.73 X10 3/uL Normal 0.83-4.51 [facility] Comment on above: Performed By: #### L 100.0100, L500.4050 #### [facility] [address] [place], [address] Absolute Neut 3.7 X10 3/uL Normal 2.0-7.7 [facility] Comment on above: Performed By: #### L 100.0100, L500.4050 #### [facility] [address] [place], [address] Basophils/100 WBC (Bld) 0.6 % Normal 0-1 [facility] Comment on above: Performed By: #### L 100.0100, L500.4050 #### [facility] [address] [place], [address] Eosinophils/100 WBC (Bld) 3.0 % Normal 0-5 [facility] Comment on above: Performed By: #### L 100.0100, L500.4050 #### [facility] [address] [place], [address] Erythrocyte distribution width (RBC) [Ratio] 13.6 % Normal 11.6-14.6 [facility] Comment on above: Performed By: #### L 100.0100, L500.4050 #### [facility] [address] [place], [address] Hematocrit (Bld) [Volume fraction] 39.6 % Normal 37-47 [facility] Comment on above: Performed By: #### L 100.0100, L500.4050 #### [facility] [address] [place], [address] Hemoglobin (Bld) [Mass/Vol] 12.0 g/dL Normal 12.0-15.0 [facility] Comment on above: Performed By: #### L 100.0100, L500.4050 #### [facility] [address] [place], [address] IG% 0.300 Normal 0.0-0.9 [facility] Comment on above: Result Comment: IG% - Immature Granulocytes (promyelocytes, myelocytes and metamyelocytes) > 1% indicates that a LEFT SHIFT is Present. Performed By: #### L 100.0100, L500.4050 #### [facility] [address] [place], [address] Lymphocytes/100 WBC (Bld) 26.0 % Normal 19-41 [facility] Comment on above: Performed By: #### L 100.0100, L500.4050 #### [facility] [address] [place], [address] MCH (RBC) [Entitic mass] 29.9 pg Normal 27.0-32.0 [facility] Comment on above: Performed By: #### L 100.0100, L500.4050 #### [facility] [address] [place], [address] MCHC (RBC) [Mass/Vol] 30.3 g/dL Low 32-36 [facility] Comment on above: Performed By: #### L 100.0100, L500.4050 #### [facility] [address] [place], [address] MCV (RBC) [Entitic vol] 98.8 fL Normal 81-99 [facility] Comment on above: Performed By: #### L 100.0100, L500.4050 #### [facility] [address] [place], [address] Monocytes/100 WBC (Bld) 14.0 % High 0-10 [facility] Comment on above: Performed By: #### L 100.0100, L500.4050 #### [facility] [address] [place], [address] Neutrophils/100 WBC (Bld) 56.1 % Normal 47-70 [facility] Comment on above: Performed By: #### L 100.0100, L500.4050 #### [facility] [address] [place], [address] Nucleated RBC (Bld) [#/Vol] 0 10*3/uL Normal 0-5 [facility] Comment on above: Performed By: #### L 100.0100, L500.4050 #### [facility] [address] [place], [address] Platelet mean volume (Bld) [Entitic vol] 10.3 fL Normal 6.2-12.0 [facility] Comment on above: Performed By: #### L 100.0100, L500.4050 #### [facility] [address] [place], [address] Platelets (Bld) [#/Vol] 316 10*3/uL Normal 150-450 [facility] Comment on above: Performed By: #### L 100.0100, L500.4050 #### [facility] [address] [place], [address] RBC (Bld) [#/Vol] 4.01 10*6/uL Low 4.2-5.4 [facility] Comment on above: Performed By: #### L 100.0100, L500.4050 #### [facility] [address] [place], [address] RDW SD 48.4 fl High 35.1-43.9 [facility] Comment on above: Performed By: #### L 100.0100, L500.4050 #### [facility] [address] [place], [address] WBC (Bld) [#/Vol] 6.7 10*3/uL Normal 4.4-11.0 [facility] Comment on above: Performed By: #### L 100.0100, L500.4050 #### [facility] [address] [place], [address] Carbon dioxide measurementOr dered By: Laurence Hinds on 10-17-2024 CO2 [Moles/Vol] 26.0 mmol/L 21.0-32.0 [facility] Chloride measurementOrdered By: Laurence Hinds on 10-17-2024 Chloride [Moles/Vol] 97 mmol/L Low 98-107 [facility] Comprehensive Metabolic Prof ilon 10-17-2024 Albumin [Mass/Vol] 3.6 g/dL Normal 3.2-5.0 [facility] Comment on above: Performed By: #### L 100.0100, L500.4050 #### [facility] [address] [place], [address] Albumin/Globulin [Mass ratio] 0.9 {ratio} Normal 0.9-2.4 [facility] Comment on above: Performed By: #### L 100.0100, L500.4050 #### [facility] [address] [place], [address] ALK P 90 U/L Normal 45-117 [facility] Comment on above: Performed By: #### L 100.0100, L500.4050 #### [facility] [address] [place], [address] ALT [Catalytic activity/Vol] 19 U/L Normal 13-56 [facility] Comment on above: Performed By: #### L 100.0100, L500.4050 #### [facility] [address] [place], [address] AST [Catalytic activity/Vol] 13 U/L Low 15-37 [facility] Comment on above: Performed By: #### L 100.0100, L500.4050 #### [facility] [address] [place], [address] Bilirubin [Mass/Vol] 0.50 mg/dL Normal 0.20-1.00 [facility] Comment on above: Result Comment: For patients on eltrombopag therapy, use of Dimension [place] TBIL is not recommended. Performed By: #### L 100.0100, L500.4050 #### [facility] [address] [place], [address] BUN/CRE 24.7 RATIO High 10-20 [facility] Comment on above: Performed By: #### L 100.0100, L500.4050 #### [facility] [address] [place], [address] CA,Total 10.1 mg/dL Normal 8.5-10.1 [facility] Comment on above: Performed By: #### L 100.0100, L500.4050 #### [facility] [address] [place], [address] Chloride [Moles/Vol] 97 mmol/L Low 98-107 [facility] Comment on above: Performed By: #### L 100.0100, L500.4050 #### [facility] [address], [address] CO2 [Moles/Vol] 26.0 mmol/L Normal 21.0-32.0 [facility] Comment on above: Performed By: #### L 100.0100, L500.4050 #### [facility] [address] [place], [address] Creatinine [Mass/Vol] 0.77 mg/dL Normal 0.55-1.02 [facility] Comment on above: Result Comment: The validity of the calculated GFR GFRAA in patients over 70 years has not been determined. Clinical correlation is essential. Performed By: #### L 100.0100, L500.4050 #### [facility] [address] [place], [address] EST GFR - AA 91 mL/min Normal >60 [facility] Comment on above: Result Comment: Afri can [place] GFR Calc Performed By: #### L 100.0100, L500.4050 #### [facility] [address] [place], [address] GAP 7 Normal 5-15 [facility] Comment on above: Performed By: #### L 100.0100, L500.4050 #### [facility] [address] [place], [address] GFR/1.73 sq M.predicted among non-blacks MDRD (S/P/Bld) [Vol rate/Area] 75 mL/min/{1.73_m2} Normal >60 [facility] Comment on above: Result Comment: Non- GFR Calc Performed By: #### L 100.0100, L500.4050 #### [facility] [address] [place], [address] Globulin (S) [Mass/Vol] 4.2 g/dL Normal 2.2-4.2 [facility] Comment on above: Performed By: #### L 100.0100, L500.4050 #### [facility] [address] [place], [address] Glucose [Mass/Vol] 84 mg/dL Normal 74-106 [facility] Comment on above: Performed By: #### L 100.0100, L500.4050 #### [facility] [address] [place], [address] Potassium [Moles/Vol] 4.2 mmol/L Normal 3.5-5.1 [facility] Comment on above: Performed By: #### L 100.0100, L500.4050 #### [facility] [address] [place], [address] Sodium [Moles/Vol] 130 mmol/L Low 136-145 [facility] Comment on above: Performed By: #### L 100.0100, L500.4050 #### [facility] [address] [place], [address] T PROT 7.8 g/dL Normal 6.4-8.2 [facility] Comment on above: Performed By: #### L 100.0100, L500.4050 #### [facility] [address] [place], [address] Urea nitrogen [Mass/Vol] 19 mg/dL High 7-18 [facility] Comment on above: Performed By: #### L 100.0100, L500.4050 #### [facility] [address] [place], [address] Eosinophil percentageOrdered By: Laurence Hinds on 10-17-2024 Eosinophils/100 WBC (Bld) 3.0 % 0-5 [facility] Erythrocyte distribution wid th ratioOrdered By: Laurence Hinds on 10-17-2024 Erythrocyte distribution width (RBC) [Ratio] 13.6 % 11.6-14.6 [facility] Erythrocyte distribution wid th standard deviationOrdered By: Laurence Hinds on 10-17-2024 Erythrocyte distribution width (RBC) [Entitic vol] 48.4 fL High 35.1-43.9 [facility] Estimated glomerular filtrat ion rate (GFR) AmericanOrdered By: Laurence Hinds on 10-17-2024 Estimated GFR (MDRD) Amer 91 mL/min >60 [facility] Comment on above: GFR Calc Glomerular filtration rate ( GFR) estimationOrdered By: Laurence Hinds on 10-17-2024 Estimated GFR (MDRD) Non-Af Amer 75 mL/min >60 [facility] Comment on above: Non- GFR Calc Glucose measurementOrdered B y: Laurence Hinds on 10-17-2024 Glucose [Mass/Vol] 84 mg/dL 74-106 [facility] Hematocrit Auto (Bld) [Volum e fraction]Ordered By: Laurence Hinds on 10-17-2024 Hematocrit (Bld) [Volume fraction] 39.6 % 37-47 [facility] Hemoglobin measurementOrdere d By: Laurence Hinds on 10-17-2024 Hemoglobin (Bld) [Mass/Vol] 12.0 g/dL 12.0-15.0 [facility] Immature granulocytes/100 WB C Auto (Bld)Ordered By: Laurence Hinds on 10-17-2024 Immature granulocytes/100 WBC (Bld) 0.300 % 0.0-0.9 [facility] Comment on above: IG% - Immature Granu locytes (promyelocytes, myelocytes and metamyelocytes) > 1% indicates that a LEFT SHIFT is Present. Laboratory - Chemistry and C hemistry - challengeOrdered By: Laurence Hinds on 10-17-2024 AST [Catalytic activity/Vol] 13 U/L Low 15-37 [facility] Lymphocytes Auto (Unsp spec) [#/Vol]Ordered By: Laurence Hinds on 10-17-2024 Lymphocytes (Bld) [#/Vol] 1.73 10*3/uL 0.83-4.5 1 [facility] Lymphocytes/100 WBC Auto (Un sp spec)Ordered By: Laurence Hinds on 10-17-2024 Lymphocytes/100 WBC (Bld) 26.0 % 19-41 [facility] MCV (mean corpuscular volume ) determinationOrdered By: Laurence Hinds on 10-17-2024 MCV (RBC) [Entitic vol] 98.8 fL 81-99 [facility] Mean corpuscular hemoglobin (MCH) determinationOrdered By: Laurence Hinds on 10-17-2024 MCH (RBC) [Entitic mass] 29.9 pg 27.0-32.0 [facility] Mean corpuscular hemoglobin concentration (MCHC) determinationOrdered By: Laurence Hinds on 10-17-2024 MCHC (RBC) [Mass/Vol] 30.3 g/dL Low 32-36 [facility] Mean platelet volume determi nationOrdered By: Laurence Hinds on 10-17-2024 Platelet mean volume (Bld) [Entitic vol] 10.3 fL 6.2-12.0 [facility] Monocyte percentageOrdered B y: Laurence Hinds on 10-17-2024 Monocytes/100 WBC (Bld) 14.0 % High 0-10 [facility] Neutrophil percentageOrdered By: Laurence Hinds on 10-17-2024 Neutrophils/100 WBC (Bld) 56.1 % 47-70 [facility] Nucleated red blood cell per centageOrdered By: Laurence Hinds on 10-17-2024 Nucleated RBC/100 WBC (Bld) [Ratio] 0 % 0-5 [facility] Platelet countOrdered By: Lcuien Hinds on 10-17-2024 Platelets (Bld) [#/Vol] 316 10*3/uL 150-450 [facility] Potassium measurementOrdered By: Laurence Hinds on 10-17-2024 Potassium [Moles/Vol] 4.2 mmol/L 3.5-5.1 [facility] RBC Auto (Bld) [#/Vol]Ordere d By: Laurence Hinds on 10-17-2024 RBC (Bld) [#/Vol] 4.01 10*6/uL Low 4.2-5.4 [facility] Serum anion gap measurementO rdered By: Laurence Hinds on 10-17-2024 Anion gap [Moles/Vol] 7 mmol/L 5-15 [facility] Serum globulin measurementOr dered By: Laurence Hinds on 10-17-2024 Globulin (S) [Mass/Vol] 4.2 g/dL 2.2-4.2 [facility] Serum or plasma alanine meza otransferase (ALT) measurementOrdered By: Laurence Hinds on 10-17-2024 ALT [Catalytic activity/Vol] 19 U/L 13-56 [facility] Serum or plasma albumin rhonda urement (mass/volume)Ordered By: Laurence Hinds on 10-17-2024 Albumin [Mass/Vol] 3.6 g/dL 3.2-5.0 [facility] Serum or plasma alkaline yosvany sphatase measurementOrdered By: Laurence Hinds on 10-17-2024 ALP [Catalytic activity/Vol] 90 U/L 45-117 [facility] Serum or plasma calcium rhonda urement (mass/volume)Ordered By: Laurence Hinds on 10-17-2024 Calcium [Mass/Vol] 10.1 mg/dL 8.5-10.1 [facility] Serum or plasma creatinine m easurement (mass/volume)Ordered By: Laurence Hinds on 10-17-2024 Creatinine [Mass/Vol] 0.77 mg/dL 0.55-1.02 [facility] Comment on above: The validity of the calculated GFR & GFRAA in patients over 70 years has not been determined. Clinical correlation is essential. Serum or plasma urea nitroge n measurement (mass/volume)Ordered By: Laurence Hinds on 10-17-2024 Urea nitrogen [Mass/Vol] 19 mg/dL High 7-18 [facility] Sodium levelOrdered By: Lesa Hinds on 10-17-2024 Sodium [Moles/Vol] 130 mmol/L Low 136-145 [facility] Total proteinOrdered By: Sergio Hinds on 10-17-2024 Protein [Mass/Vol] 7.8 g/dL 6.4-8.2 [facility] White blood cell (WBC) count Ordered By: Laurence Hinds on 10-17-2024 WBC (Bld) [#/Vol] 6.7 10*3/uL 4.4-11.0 [facility] CBC W/Diff, Automatedon 07-16 Absolute Lymph 1.94 X10 3/uL Normal 0.83-4.51 [facility] Comment on above: Performed By: #### L 500.4050, L100.0100 #### [facility] [address] [place], [address] Absolute Neut 3.4 X10 3/uL Normal 2.0-7.7 [facility] Comment on above: Performed By: #### L 500.4050, L100.0100 #### [facility] [address] [place], [address] Basophils/100 WBC (Bld) 0.6 % Normal 0-1 [facility] Comment on above: Performed By: #### L 500.4050, L100.0100 #### [facility] [address] [place], [address] Eosinophils/100 WBC (Bld) 3.3 % Normal 0-5 [facility] Comment on above: Performed By: #### L 500.4050, L100.0100 #### [facility] [address] [place], [address] Erythrocyte distribution width (RBC) [Ratio] 14.2 % Normal 11.6-14.6 [facility] Comment on above: Performed By: #### L 500.4050, L100.0100 #### [facility] [address] [place], [address] Hematocrit (Bld) [Volume fraction] 38.7 % Normal 37-47 [facility] Comment on above: Performed By: #### L 500.4050, L100.0100 #### [facility] [address] [place], [address] Hemoglobin (Bld) [Mass/Vol] 11.9 g/dL Low 12.0-15.0 [facility] Comment on above: Performed By: #### L 500.4050, L100.0100 #### [facility] [address] [place], [address] IG% 0.500 Normal 0.0-0.9 [facility] Comment on above: Result Comment: IG% - Immature Granulocytes (promyelocytes, myelocytes and metamyelocytes) > 1% indicates that a LEFT SHIFT is Present. Performed By: #### L 500.4050, L100.0100 #### [facility] [address] [place], [address] Lymphocytes/100 WBC (Bld) 30.6 % Normal 19-41 [facility] Comment on above: Performed By: #### L 500.4050, L100.0100 #### [facility] [address] [place], [address] MCH (RBC) [Entitic mass] 30.4 pg Normal 27.0-32.0 [facility] Comment on above: Performed By: #### L 500.4050, L100.0100 #### [facility] [address] [place], [address] MCHC (RBC) [Mass/Vol] 30.7 g/dL Low 32-36 [facility] Comment on above: Performed By: #### L 500.4050, L100.0100 #### [facility] [address] [place], [address] MCV (RBC) [Entitic vol] 99.0 fL Normal 81-99 [facility] Comment on above: Performed By: #### L 500.4050, L100.0100 #### [facility] [address] [place], [address] Monocytes/100 WBC (Bld) 12.3 % High 0-10 [facility] Comment on above: Performed By: #### L 500.4050, L100.0100 #### [facility] [address] [place], [address] Neutrophils/100 WBC (Bld) 52.7 % Normal 47-70 [facility] Comment on above: Performed By: #### L 500.4050, L100.0100 #### [facility] [address] [place], [address] Nucleated RBC (Bld) [#/Vol] 0 10*3/uL Normal 0-5 [facility] Comment on above: Performed By: #### L 500.4050, L100.0100 #### [facility] [address] [place], [address] Platelet mean volume (Bld) [Entitic vol] 10.1 fL Normal 6.2-12.0 [facility] Comment on above: Performed By: #### L 500.4050, L100.0100 #### [facility] [address] [place], [address] Platelets (Bld) [#/Vol] 266 10*3/uL Normal 150-450 [facility] Comment on above: Performed By: #### L 500.4050, L100.0100 #### [facility] [address] [place], [address] RBC (Bld) [#/Vol] 3.91 10*6/uL Low 4.2-5.4 [facility] Comment on above: Performed By: #### L 500.4050, L100.0100 #### [facility] [address] [place], [address] RDW SD 50.8 fl High 35.1-43.9 [facility] Comment on above: Performed By: #### L 500.4050, L100.0100 #### [facility] [address] [place], [address] WBC (Bld) [#/Vol] 6.4 10*3/uL Normal 4.4-11.0 [facility] Comment on above: Performed By: #### L 500.4050, L100.0100 #### [facility] [address] [place], [address] Comprehensive Metabolic [facility] 08-02-2024 Albumin [Mass/Vol] 3.7 g/dL Normal 3.2-5.0 [facility] Comment on above: Performed By: #### L 500.4050, L100.0100 #### [facility] [address] [place], [address] Albumin/Globulin [Mass ratio] 1.0 {ratio} Normal 0.9-2.4 [facility] Comment on above: Performed By: #### L 500.4050, L100.0100 #### [facility] [address] [place], [address] ALK P 76 U/L Normal 45-117 [facility] Comment on above: Performed By: #### L 500.4050, L100.0100 #### [facility] [address] [place], [address] ALT [Catalytic activity/Vol] 19 U/L Normal 13-56 [facility] Comment on above: Performed By: #### L 500.4050, L100.0100 #### [facility] [address] [place], [address] AST [Catalytic activity/Vol] 16 U/L Normal 15-37 [facility] Comment on above: Performed By: #### L 500.4050, L100.0100 #### [facility] [address] [place], [address] Bilirubin [Mass/Vol] 0.40 mg/dL Normal 0.20-1.00 [facility] Comment on above: Result Comment: For patients on eltrombopag therapy, use of Dimension [place] TBIL is not recommended. Performed By: #### L 500.4050, L100.0100 #### [facility] [address] [place], [address] BUN/CRE 20.1 RATIO High 10-20 [facility] Comment on above: Performed By: #### L 500.4050, L100.0100 #### [facility] [address] [place], [address] CA,Total 9.9 mg/dL Normal 8.5-10.1 [facility] Comment on above: Performed By: #### L 500.4050, L100.0100 #### [facility] [address] [place], [address] Chloride [Moles/Vol] 98 mmol/L Normal 98-107 [facility] Comment on above: Performed By: #### L 500.4050, L100.0100 #### [facility] [address] [place], [address] CO2 [Moles/Vol] 27.0 mmol/L Normal 21.0-32.0 [facility] Comment on above: Performed By: #### L 500.4050, L100.0100 #### [facility] [address] [place], [address] Creatinine [Mass/Vol] 0.80 mg/dL Normal 0.55-1.02 [facility] Comment on above: Result Comment: The validity of the calculated GFR GFRAA in patients over 70 years has not been determined. Clinical correlation is essential. Performed By: #### L 500.4050, L100.0100 #### [facility] [address] [place], [address] EST GFR - AA 87 mL/min Normal >60 [facility] Comment on above: Result Comment: Afri can [place] GFR Calc Performed By: #### L 500.4050, L100.0100 #### [facility] [address] [place], [address] GAP 6 Normal 5-15 [facility] Comment on above: Performed By: #### L 500.4050, L100.0100 #### [facility] [address] [place], [address] GFR/1.73 sq M.predicted among non-blacks MDRD (S/P/Bld) [Vol rate/Area] 72 mL/min/{1.73_m2} Normal >60 [facility] Comment on above: Result Comment: Non- GFR Calc Performed By: #### L 500.4050, L100.0100 #### [facility] [address] [place], [address] Globulin (S) [Mass/Vol] 3.6 g/dL Normal 2.2-4.2 [facility] Comment on above: Performed By: #### L 500.4050, L100.0100 #### [facility] [address] [place], [address] Glucose [Mass/Vol] 63 mg/dL Low 74-106 [facility] Comment on above: Performed By: #### L 500.4050, L100.0100 #### [facility] [address] [place], [address] Potassium [Moles/Vol] 4.0 mmol/L Normal 3.5-5.1 [facility] Comment on above: Performed By: #### L 500.4050, L100.0100 #### [facility] [address] [place], [address] Sodium [Moles/Vol] 131 mmol/L Low 136-145 [facility] Comment on above: Performed By: #### L 500.4050, L100.0100 #### [facility] [address] [place], [address] T PROT 7.3 g/dL Normal 6.4-8.2 [facility] Comment on above: Performed By: #### L 500.4050, L100.0100 #### [facility] [address] [place], [address] Urea nitrogen [Mass/Vol] 16 mg/dL Normal 7-18 [facility] Comment on above: Performed By: #### L 500.4050, L100.0100 #### [facility] [address] [place], [address] CNOVon 05-25-2024 CNOV Office Visit (INTMWS ) YANN ADAIR ([id number]) 1935 F Date Time Provider Department 05/25/24 2:40 PM FITZ WALTERS INTMWS During your visit today, we recorded the following information about you: Temperature Pulse Respiration Blood pressure 97.4 degrees 72/minute 20/minute 126/76 Weight 67.1 kg Fitz Walters MD 05/25/2024 3:19 PM Signed This note was created using [employer]. Subjective Yann Adair is a 88 year old female. Her vision had deteriorated more recently, and she was having difficulty with pills that are similar (methotrexate and folic acid). Hypertension and diabetes mellitus were controlled. Review of Systems Constitutional: Negative for fatigue. Eyes: Positive for visual disturbance. Respiratory: Negative for shortness of breath. Cardiovascular: Negative for chest pain. Gastrointestinal: Negative for abdominal pain. Musculoskeletal: Positive for arthralgias. Neurological: Negative. ACTIVE PROBLEM LIST Generalized Osteoarthrosis Essential Hypertension Type 2 Diabetes, Controlled, With Peripheral Neuropathy (Hcc) Other Psoriasis Hyperlipidemia Congenital Pes Planus Vitamin D Deficiency Dermatophytosis of Nail Arthritis, Midfoot Nocturia Urge Incontinence of Urine Social History Tobacco Use Smoking status: Former Packs/day: 1.00 Years: 15.00 Additional pack years: 0.00 Total pack years: 15.00 Types: Cigarettes Quit date: 09/02/1990 Years since quittin.7 Smokeless tobacco: Never Vaping Use Vaping Use: Never used Substance Use Topics Alcohol use: No Comment: Wine on few occasions a year. Drug use: No Current Outpatient Medications Medication Sig losartan (COZAAR) 25 mg tablet Take 1 tablet by mouth once daily. For high blood pressure. glipiZIDE (GLUCOTROL XL) 2.5 mg 24 hr tablet Take 1 tablet by mouth daily with breakfast. atorvastatin (LIPITOR) 10 mg tablet Take 1 tablet by mouth once daily. metFORMIN (GLUCOPHAGE) 500 mg tablet Take 1 tablet by mouth two times a day with meals. cyanocobalamin, vitamin B-12, (VITAMIN B12 ORAL) Take by mouth. dorzolamide-timolol (COSOPT) 22.3-6.8 mg/mL ophthalmic solution Use 1 Drop in both eyes twice daily. latanoprost (XALATAN) 0.005 % ophthalmic solution Use 1 Drop in both eyes once daily. methotrexate 2.5 mg tablet 6 tabs once weekly ferrous sulfate 325 mg (65 mg iron) tablet Take 1 tablet by mouth daily with breakfast. Lancets (ONETOUCH ULTRASOFT LANCETS) lancets Test blood sugar(s) 1 times daily. Dx: Other DM Code E11.42 , Insulin: No blood sugar diagnostic (ONETOUCH ULTRA TEST) test strip Test blood sugar once daily. Dx: E11.42. Insulin: No. folic acid 1 mg tablet Take 2 mg by mouth once daily. tacrolimus (PROTOPIC) 0.1 % ointment Apply 1 application to affected area as needed. ASPIRIN 81 MG TAB Take one (1) tablet daily . No current facility-administered medications for this visit. Objective BP 126/76 (BP Site: Left Arm, BP Position: Sitting, BP Cuff Size: Large Adult) Pulse 72 Temp 36.3 ?C (97.4 ?F) (Temporal) Resp 20 Wt 67.1 kg (148 lb) BMI 27.07 kg/m? Physical Exam Constitutional: General: She is not in acute distress. Appearance: She is not ill-appearing. Cardiovascular: Rate and Rhythm: Normal rate and regular rhythm. Heart sounds: No murmur heard. No gallop. Pulmonary: Breath sounds: Normal breath sounds. Musculoskeletal: Right lower leg: No edema. Left lower leg: No edema. Neurological: General: No focal deficit present. Mental Status: She is alert. Comments: Ambulatory with cane. Psychiatric: Mood and Affect: Mood normal. Behavioral Health Screening PHQ-2 Score: 0 (Lower risk for depression) YAEL-2 Score: 0 (Lower risk for anxiety) Recommendation: no further intervention at this time Assessment and Plan 1. Type 2 diabetes, controlled, with peripheral neuropathy (HCC) - ICD9: 250.60, 357.2, ICD10: E11.42 (primary diagnosis) - Controlled - Continue current medications - HEMOGLOBIN A1C (POC) - ALBUMIN/CREATININE RATIO, URINE - HEMOGLOBIN A1C - BASIC METABOLIC PANEL 2. Essential hypertension - ICD9: 401.9, ICD10: I10 - Controlled. - Continue current medications 3. Hyperlipidemia, unspecified hyperlipidemia type - ICD9: 272.4, ICD10: E78.5 - Controlled - Continue current medications - LIPID PANEL BASIC 4. 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 Fitz Walters MD Allergies As of Date: 05/25/2024 Noted Allergy Reaction SULFUR 11/07/2007 4 - Hives Date Reviewed: 05/25/2024 Reviewed by: Alee Brown LPN - Fully Assessed Reason for Visit: F/U 6 months [1177] P (more content not included)... Normal [facility] HEMOGLOBIN A1C (POC)on 05-25 HbA1c (Bld) [Mass fraction] 5.6 % 4.3 - 5.6 % [facility] Comment on above: Location:[address], [address] Point of care (POC) Hemoglobin A1c (HGBA1C) testing is intended to assess glucose control and provide a management tool for patients known to have diabetes and their healthcare providers. Target HGBA1C levels may depend on specific clinical circumstances. POC HGBA1C is not intended for use as a diagnostic or screening test; laboratory-based testing should be used for diagnostic purposes. The following information is supplemental and may not be applicable to specific diabetes management situations: The POC device service writer provides a normal range of 4.2% to 6.5% for the HGBA1C POC test. However, the [place] [employer] guidelines indicate that patients with HGBA1C in the range of 5.7% to 6.4% are at increased risk for development of diabetes and that intervention by lifestyle modification may be beneficial. A HGBA1C level greater than or equal to 6.5% is considered diagnostic of diabetes, pending confirmatory testing. Use of HGBA1C testing to evaluate glucose control may not be appropriate for patients with hemoglobin variants or other conditions (e.g. anemia) that alter red blood cell lifespan. [facility] CBC W/Diff, Automatedon 06-2 Absolute Lymph 1.66 X10 3/uL Normal 0.83-4.51 [facility] Comment on above: Performed By: #### L 500.4050, L100.0100 #### [facility] [address] [place], [address] Absolute Neut 4.3 X10 3/uL Normal 2.0-7.7 [facility] Comment on above: Performed By: #### L 500.4050, L100.0100 #### [facility] [address] [place], [address] Basophils/100 WBC (Bld) 0.4 % Normal 0-1 [facility] Comment on above: Performed By: #### L 500.4050, L100.0100 #### [facility] [address] [place], [address] Eosinophils/100 WBC (Bld) 1.9 % Normal 0-5 [facility] Comment on above: Performed By: #### L 500.4050, L100.0100 #### [facility] [address] [place], [address] Erythrocyte distribution width (RBC) [Ratio] 13.6 % Normal 11.6-14.6 [facility] Comment on above: Performed By: #### L 500.4050, L100.0100 #### [facility] [address] [place], [address] Hematocrit (Bld) [Volume fraction] 38.8 % Normal 37-47 [facility] Comment on above: Performed By: #### L 500.4050, L100.0100 #### [facility] [address] [place], [address] Hemoglobin (Bld) [Mass/Vol] 12.0 g/dL Normal 12.0-15.0 [facility] Comment on above: Performed By: #### L 500.4050, L100.0100 #### [facility] [address] [place], [address] IG% 0.100 Normal 0.0-0.9 [facility] Comment on above: Result Comment: IG% - Immature Granulocytes (promyelocytes, myelocytes and metamyelocytes) > 1% indicates that a LEFT SHIFT is Present. Performed By: #### L 500.4050, L100.0100 #### [facility] [address] [place], [address] Lymphocytes/100 WBC (Bld) 24.6 % Normal 19-41 [facility] Comment on above: Performed By: #### L 500.4050, L100.0100 #### [facility] [address] [place], [address] MCH (RBC) [Entitic mass] 30.6 pg Normal 27.0-32.0 [facility] Comment on above: Performed By: #### L 500.4050, L100.0100 #### [facility] [address] [place], [address] MCHC (RBC) [Mass/Vol] 30.9 g/dL Low 32-36 [facility] Comment on above: Performed By: #### L 500.4050, L100.0100 #### [facility] [address] [place], [address] MCV (RBC) [Entitic vol] 99.0 fL Normal 81-99 [facility] Comment on above: Performed By: #### L 500.4050, L100.0100 #### [facility] [address] [place], [address] Monocytes/100 WBC (Bld) 9.8 % Normal 0-10 [facility] Comment on above: Performed By: #### L 500.4050, L100.0100 #### [facility] [address] [place], [address] Neutrophils/100 WBC (Bld) 63.2 % Normal 47-70 [facility] Comment on above: Performed By: #### L 500.4050, L100.0100 #### [facility] [address] [place], [address] Nucleated RBC (Bld) [#/Vol] 0 10*3/uL Normal 0-5 [facility] Comment on above: Performed By: #### L 500.4050, L100.0100 #### [facility] [address] [place], [address] Platelet mean volume (Bld) [Entitic vol] 10.2 fL Normal 6.2-12.0 [facility] Comment on above: Performed By: #### L 500.4050, L100.0100 #### [facility] [address] [place], [address] Platelets (Bld) [#/Vol] 290 10*3/uL Normal 150-450 [facility] Comment on above: Performed By: #### L 500.4050, L100.0100 #### [facility] [address] [place], [address] RBC (Bld) [#/Vol] 3.92 10*6/uL Low 4.2-5.4 [facility] Comment on above: Performed By: #### L 500.4050, L100.0100 #### [facility] [address] [place], [address] RDW SD 48.4 fl High 35.1-43.9 [facility] Comment on above: Performed By: #### L 500.4050, L100.0100 #### [facility] [address] [place], [address] WBC (Bld) [#/Vol] 6.7 10*3/uL Normal 4.4-11.0 [facility] Comment on above: Performed By: #### L 500.4050, L100.0100 #### [facility] [address] [place], [address] Comprehensive Metabolic Prof ilon 05-05-2024 Albumin [Mass/Vol] 3.7 g/dL Normal 3.2-5.0 [facility] Comment on above: Order Comment: C Performed By: #### L 500.4050, L100.0100 #### [facility] [address] [place], [address] Albumin/Globulin [Mass ratio] 0.9 {ratio} Normal 0.9-2.4 [facility] Comment on above: Order Comment: C Performed By: #### L 500.4050, L100.0100 #### [facility] [address] [place], [address] ALK P 76 U/L Normal 45-117 [facility] Comment on above: Order Comment: C Performed By: #### L 500.4050, L100.0100 #### [facility] [address] [place], [address] ALT [Catalytic activity/Vol] 24 U/L Normal 13-56 [facility] Comment on above: Order Comment: C Performed By: #### L 500.4050, L100.0100 #### [facility] [address] [place], [address] AST [Catalytic activity/Vol] 21 U/L Normal 15-37 [facility] Comment on above: Order Comment: C Performed By: #### L 500.4050, L100.0100 #### [facility] [address] [place], [address] Bilirubin [Mass/Vol] 0.40 mg/dL Normal 0.20-1.00 [facility] Comment on above: Order Comment: C Result Comment: For patients on eltrombopag therapy, use of Dimension [place] TBIL is not recommended. Performed By: #### L 500.4050, L100.0100 #### [facility] [address] [place], [address] BUN/CRE 24.6 RATIO High 10-20 [facility] Comment on above: Order Comment: C Performed By: #### L 500.4050, L100.0100 #### [facility] [address] [place], [address] CA,Total 9.7 mg/dL Normal 8.5-10.1 [facility] Comment on above: Order Comment: C Performed By: #### L 500.4050, L100.0100 #### [facility] [address] [place], [address] Chloride [Moles/Vol] 97 mmol/L Low 98-107 [facility] Comment on above: Order Comment: C Performed By: #### L 500.4050, L100.0100 #### [facility] [address] [place], [address] CO2 [Moles/Vol] 27.0 mmol/L Normal 21.0-32.0 [facility] Comment on above: Order Comment: C Performed By: #### L 500.4050, L100.0100 #### [facility] [address] [place], [address] Creatinine [Mass/Vol] 0.77 mg/dL Normal 0.55-1.02 [facility] Comment on above: Order Comment: C Result Comment: The validity of the calculated GFR GFRAA in patients over 70 years has not been determined. Clinical correlation is essential. Performed By: #### L 500.4050, L100.0100 #### [facility] [address] [place], [address] EST GFR - AA 91 mL/min Normal >60 [facility] Comment on above: Order Comment: C Result Comment: Afri can [place] GFR Calc Performed By: #### L 500.4050, L100.0100 #### [facility] [address], [address] GAP 9 Normal 5-15 [facility] Comment on above: Order Comment: C Performed By: #### L 500.4050, L100.0100 #### [facility] [address] [place], [address] GFR/1.73 sq M.predicted among non-blacks MDRD (S/P/Bld) [Vol rate/Area] 75 mL/min/{1.73_m2} Normal >60 [facility] Comment on above: Order Comment: C Result Comment: Non- GFR Calc Performed By: #### L 500.4050, L100.0100 #### [facility] [address] [place], [address] Globulin (S) [Mass/Vol] 3.9 g/dL Normal 2.2-4.2 [facility] Comment on above: Order Comment: C Performed By: #### L 500.4050, L100.0100 #### [facility] [address] [place], [address] Glucose [Mass/Vol] 99 mg/dL Normal 74-106 [facility] Comment on above: Order Comment: C Performed By: #### L 500.4050, L100.0100 #### [facility] [address] [place], [address] Potassium [Moles/Vol] 4.2 mmol/L Normal 3.5-5.1 [facility] Comment on above: Order Comment: C Performed By: #### L 500.4050, L100.0100 #### [facility] [address] [place], [address] Sodium [Moles/Vol] 133 mmol/L Low 136-145 [facility] Comment on above: Order Comment: C Performed By: #### L 500.4050, L100.0100 #### [facility] [address] [place], [address] T PROT 7.6 g/dL Normal 6.4-8.2 [facility] Comment on above: Order Comment: C Performed By: #### L 500.4050, L100.0100 #### [facility] [address] [place], [address] Urea nitrogen [Mass/Vol] 19 mg/dL High 7-18 [facility] Comment on above: Order Comment: C Performed By: #### L 500.4050, L100.0100 #### [facility] [address] [place], [address] Absolute lymphocyte countOrd ered By: Laurence Hinds on 01-20-2024 Lymphocytes Auto (Unsp spec) [#/Vol] 1.92 10*3/uL 0.83-4.51 [facility] Automated lymphocyte count a s percentage of total leukocytesOrdered By: Laurence Hinds on 01-20-2024 Lymphocytes/100 WBC Auto (Unsp spec) 27.6 % 19-41 [facility] Basophil percentageOrdered B y: Laurence Hinds on 01-20-2024 Basophils/100 WBC (Bld) 0.6 % 0-1 [facility] Bilirubin [Mass/Vol] 0.30 mg/dL 0.20-1.00 [facility] Comment on above: For patients on eltr ombopag therapy, use of Dimension [place] TBIL is not recommended. Chloride [Moles/Vol] 101 mmol/L 98-107 [facility] Eosinophils/100 WBC (Bld) 2.2 % 0-5 [facility] Glucose [Mass/Vol] 96 mg/dL 74-106 [facility] Hemoglobin (Bld) [Mass/Vol] 12.2 g/dL 12.0-15.0 [facility] Monocytes/100 WBC (Bld) 12.5 % 0-10 [facility] Neutrophils (Bld) [#/Vol] 4.0 10*3/uL 2.0-7.7 [facility] Neutrophils/100 WBC (Bld) 56.8 % 47-70 [facility] Potassium [Moles/Vol] 4.0 mmol/L 3.5-5.1 [facility] Protein [Mass/Vol] 7.4 g/dL 6.4-8.2 [facility] Sodium [Moles/Vol] 135 mmol/L 136-145 [facility] WBC (Bld) [#/Vol] 7.0 10*3/uL 4.4-11.0 [facility] Determination of erythrocyte mean corpuscular volume (MCV)Ordered By: Laurence Hinds on 01-20-2024 MCV (RBC) [Entitic vol] 100.8 fL 81-99 [facility] Erythrocyte distribution wid th ratioOrdered By: Laurence Hinds on 01-20-2024 Erythrocyte distribution width (RBC) [Ratio] 13.2 % 11.6-14.6 [facility] Erythrocyte distribution wid th standard deviationOrdered By: Laurence Hinds on 01-20-2024 Erythrocyte distribution width (RBC) [Entitic vol] 48.4 fL 35.1-43.9 [facility] Hematocrit Auto (Bld) [Volum e fraction]Ordered By: Laurence Hinds on 01-20-2024 Hematocrit (Bld) [Volume fraction] 40.0 % 37-47 [facility] Immature granulocytes/100 WB C Auto (Bld)Ordered By: Laurence Hinds on 01-20-2024 Immature granulocytes/100 WBC (Bld) 0.300 % 0.0-0.9 [facility] Comment on above: IG% - Immature Granu locytes (promyelocytes, myelocytes and metamyelocytes) > 1% indicates that a LEFT SHIFT is Present. Laboratory - Chemistry and C hemistry - challengeOrdered By: Laurence Hinds on 01-20-2024 Albumin/Globulin [Mass ratio] 1.0 {ratio} 0.9-2.4 [facility] ALP [Catalytic activity/Vol] 72 U/L 45-117 [facility] ALT [Catalytic activity/Vol] 22 U/L 13-56 [facility] CO2 [Moles/Vol] 28.0 mmol/L 21.0-32.0 [facility] Globulin (S) [Mass/Vol] 3.7 g/dL 2.2-4.2 [facility] Urea nitrogen/Creatinine [Mass ratio] 28.8 mg/mg 10-20 [facility] - Hematology and Cell countsOrdered By: Laurence Hinds on 01-20-2024 MCH (RBC) [Entitic mass] 30.7 pg 27.0-32.0 [facility] MCHC (RBC) [Mass/Vol] 30.5 g/dL 32-36 [facility] [facility] Nucleated RBC/100 WBC (Bld) [Ratio] 0 % 0-5 [facility] Platelet mean volume (Bld) [Entitic vol] 10.5 fL 6.2-12.0 [facility] Platelets (Bld) [#/Vol] 270 10*3/uL 150-450 [facility] No Panel InformationOrdered By: Laurence Hinds on 01-20-2024 Estimated GFR (MDRD) Amer 83 mL/min >60 [facility] Comment on above: GFR Calc Estimated GFR (MDRD) Non-Af Amer 69 mL/min >60 [facility] Comment on above: Non- GFR Calc RBC Auto (Bld) [#/Vol]Ordere d By: Laurence Hinds on 01-20-2024 RBC (Bld) [#/Vol] 3.97 10*6/uL 4.2-5.4 [facility] Serum or plasma calcium rhonda urement (mass/volume)Ordered By: Laurence Hinds on 01-20-2024 Calcium [Mass/Vol] 9.9 mg/dL 8.5-10.1 [facility] Serum or plasma creatinine m easurement (mass/volume)Ordered By: Laurence Hinds on 01-20-2024 Creatinine [Mass/Vol] 0.83 mg/dL 0.55-1.02 [facility] Comment on above: The validity of the calculated GFR & GFRAA in patients over 70 years has not been determined. Clinical correlation is essential. Serum or plasma urea nitroge n measurement (mass/volume)Ordered By: Laurence Hinds on 03-07-2024 Urea nitrogen [Mass/Vol] 24 mg/dL 7-18 [facility] Thin prep Papanicolaou smear with manual screeningOrdered By: Laurence Hinds on 01-20-2024 Thin prep Papanicolaou smear with manual screening 3.7 g/dL 3.2-5.0 [facility] Thin prep Papanicolaou smear with manual screening 15 U/L 15-37 [facility] Thin prep Papanicolaou smear with manual screening 6 5-15 [facility] CNOVon 01-13-2024 CNOV Office Visit (PODIWS ) YANN ADAIR ([id number]) 1935 F Date Time Provider Department 01/13/24 2:00 PM ANGELINA GODWIN PODIWS During your visit today, we recorded the following information about you: Angelina Godwin 01/13/2024 2:23 PM Signed Last saw pcp: 11/23/23 Subjective: Patient presents to clinic c/o painful toenails. They state that the nails are especially painful with shoe gear and pressure. Patient states that nails 1-5 b/l are painful. Patient admits to being diabetic. No other pedal complaints at this time. Patient states no change in medications or medical history since last visit. Objective: Patient presents to clinic ambulating in [facility] Vasc: DP and PT pulses are faintly palpable bilateral. CFT is less than 5 seconds bilateral. Skin temperature is warm to cool proximal to distal bilateral. There is moderate edema or varicosities noted. Neuro: Protective sensation is decreased to the foot and toes when tested with the 5.07 SWM bilateral. Vibratory sensation is absent at the hallux IPJ bilateral. The hallux is downgoing bilateral. Derm: Nails 1-5 b/l are painful, discolored-yellow, thick, crumbly, dystrophic and with subungal debris. Skin is of normal turgor, texture and hair growth is absent bilateral. There are callus to left medial arch. No ulcerations, scars, verruca or other lesions noted. Ortho: Muscle strength is 5/5 for all pedal groups tested. Ankle joint DF is decreased with the knee extended with no pain or crepitus noted. 1st MPJ ROM is decreased bilateral. Assessment: (B35.1) Onychomycosis (primary encounter diagnosis) (M79.674) Pain in toe of right foot (M79.675) Pain in toe of left foot (E11.42) Type 2 diabetes, controlled, with peripheral neuropathy (HCC) (L84) Callus of foot Plan: Patient was seen and evaluated. Nails 1-5 bilateral were debrided in length and thickness. Small bleed to left 2nd toe. Callus of left medial arch reduced with dremmel. Continue with lambs wool between toes. Patient was instructed on the continued importance of diabetic foot care along with proper diet and keeping their blood sugar under control to prevent complications. Patient is to RTC in 3-4 months. Angelina Godwin DPM Referring Provider: ANGELINA GODWIN [[id number]] Allergies As of Date: 01/13/2024 Noted Allergy Reaction SULFUR 11/07/2007 4 - Hives Date Reviewed: 01/13/2024 Reviewed by: Angie Verdugo RN - Fully Assessed Reason for Visit: Established Patient [175] Diabetic Foot Care [916] Established Patient [175] Diabetic Foot Care [916] Primary Visit Diagnosis:Onychomycos is [B35.1] Other Visit Diagnoses:Pain in toe of right foot [M79.674] Pain in toe of left foot [M79.675] Type 2 diabetes, controlled, with peripheral neuropathy (HCC) [E11.42] Callus of foot [L84] Prescriptions as of 01/13/2024 - cyanocobalamin, vitamin B-12, (VITAMIN B12 ORAL) Take by mouth. - glipiZIDE (GLUCOTROL XL) 2.5 mg 24 hr tablet Take 1 tablet by mouth daily with breakfast. - losartan (COZAAR) 25 mg tablet Take 1 tablet by mouth once daily. For high blood pressure. - atorvastatin (LIPITOR) 10 mg tablet Take 1 tablet by mouth once daily. - dorzolamide-timolol (COSOPT) 22.3-6.8 mg/mL ophthalmic solution Use 1 Drop in both eyes twice daily. - latanoprost (XALATAN) 0.005 % ophthalmic solution Use 1 Drop in both eyes once daily. - metFORMIN (GLUCOPHAGE) 500 mg tablet Take 1 tablet by mouth twice daily with meals. - methotrexate 2.5 mg tablet 6 tabs once weekly - ferrous sulfate 325 mg (65 mg iron) tablet Take 1 tablet by mouth daily with breakfast. - Lancets (ONETOUCH ULTRASOFT LANCETS) lancets Test blood sugar(s) 1 times daily. Dx: Other DM Code E11.42 , Insulin: No - blood sugar diagnostic (ONETOUCH ULTRA TEST) test strip Test blood sugar once daily. Dx: E11.42. Insulin: No. - folic acid 1 mg tablet Take 2 mg by mouth once daily. - tacrolimus (PROTOPIC) 0.1 % ointment Apply 1 application to affected area as needed. - ASPIRIN 81 MG TAB Take one (1) tablet daily . 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 Normal [facility] Absolute lymphocyte countOrd ered By: Laurence Hinds on 10-14-2023 Lymphocytes Auto (Unsp spec) [#/Vol] 1.79 10*3/uL 0.83-4.51 [facility] Basophil percentageOrdered B y: Laurence Hinds on 10-14-2023 Basophils/100 WBC (Bld) 0.5 % 0-1 [facility] Bilirubin [Mass/Vol] 0.40 mg/dL 0.20-1.00 [facility] Comment on above: For patients on eltr ombopag therapy, use of Dimension [place] TBIL is not recommended. Chloride [Moles/Vol] 102 mmol/L 98-107 [facility] Eosinophils/100 WBC (Bld) 2.6 % 0-5 [facility] Glucose [Mass/Vol] 94 mg/dL 74-106 [facility] Neutrophils (Bld) [#/Vol] 4.8 10*3/uL 2.0-7.7 [facility] Neutrophils/100 WBC (Bld) 62.2 % 47-70 [facility] Potassium [Moles/Vol] 4.6 mmol/L 3.5-5.1 [facility] Protein [Mass/Vol] 7.6 g/dL 6.4-8.2 [facility] Sodium [Moles/Vol] 137 mmol/L 136-145 [facility] WBC (Bld) [#/Vol] 7.6 10*3/uL 4.4-11.0 [facility] Blood erythrocytes count (nu mber/volume)Ordered By: Laurence Hinds on 10-14-2023 RBC (Bld) [#/Vol] 4.07 10*6/uL 4.2-5.4 [facility] Blood hemoglobin measurement (mass/volume)Ordered By: Laurence Hinds on 10-14-2023 Hemoglobin (Bld) [Mass/Vol] 12.4 g/dL 12.0-15.0 [facility] Blood lymphocytes/100 leukoc ytesOrdered By: Laurence Hinds on 10-14-2023 Lymphocytes/100 WBC (Bld) 23.5 % 19-41 [facility] Blood monocytes/100 leukocyt esOrdered By: Laurence Hinds on 10-14-2023 Monocytes/100 WBC (Bld) 10.9 % 0-10 [facility] Blood platelet mean volumeOr dered By: Laurence Hinds on 10-14-2023 Platelet mean volume (Bld) [Entitic vol] 10.2 fL 6.2-12.0 [facility] Determination of erythrocyte mean corpuscular volume (MCV)Ordered By: Laurence Hinds on 10-14-2023 MCV (RBC) [Entitic vol] 99.5 fL 81-99 [facility] Hematocrit Auto (Bld) [Volum e fraction]Ordered By: [facility] Lizet on 10-14-2023 Hematocrit (Bld) [Volume fraction] 40.5 % 37-47 [facility] Laboratory - Chemistry and C hemistry - challengeOrdered By: [facility] Lizet on 10-14-2023 ALP [Catalytic activity/Vol] 74 U/L 45-117 [facility] ALT [Catalytic activity/Vol] 24 U/L 13-56 [facility] CO2 [Moles/Vol] 28.0 mmol/L 21.0-32.0 [facility] Globulin (S) [Mass/Vol] 3.9 g/dL 2.2-4.2 [facility] Urea nitrogen/Creatinine [Mass ratio] 25.9 mg/mg 10-20 [facility] Laboratory - Hematology and Cell countsOrdered By: [facility] on 10-14-2023 Erythrocyte distribution width (RBC) [Entitic vol] 51.2 fL 35.1-43.9 [facility] Erythrocyte distribution width (RBC) [Ratio] 14.1 % 11.6-14.6 [facility] Immature granulocytes/100 WBC (Bld) 0.300 % 0.0-0.9 [facility] Comment on above: IG% - Immature Granu locytes (promyelocytes, myelocytes and metamyelocytes) > 1% indicates that a LEFT SHIFT is Present. MCH (RBC) [Entitic mass] 30.5 pg 27.0-32.0 [facility] Nucleated RBC/100 WBC (Bld) [Ratio] 0 % 0-5 [facility] MCHC Auto (RBC) [Mass/Vol]Or dered By: Laurenceshelley Hinds on 10-14-2023 MCHC (RBC) [Mass/Vol] 30.6 g/dL 32-36 [facility] No Panel InformationOrdered By: Laurence Hinds on 10-14-2023 Estimated GFR (MDRD) Amer 86 mL/min >60 [facility] Comment on above: GFR Calc Estimated GFR (MDRD) Non-Af Amer 71 mL/min >60 [facility] Comment on above: Non- GFR Calc Platelets bldOrdered By: Sergio Hinds on 10-14-2023 Platelets (Bld) [#/Vol] 259 10*3/uL 150-450 [facility] Serum or plasma albumin rhonda urement (mass/volume)Ordered By: Laurence Hinds on 10-14-2023 Albumin [Mass/Vol] 3.7 g/dL 3.2-5.0 [facility] Serum or plasma albumin/glob ulin mass ratioOrdered By: Laurence Hinds on 10-14-2023 Albumin/Globulin [Mass ratio] 0.9 {ratio} 0.9-2.4 [facility] Serum or plasma calcium rhonda urement (mass/volume)Ordered By: Laurence Hinds on 10-14-2023 Calcium [Mass/Vol] 9.4 mg/dL 8.5-10.1 [facility] Serum or plasma creatinine m easurement (mass/volume)Ordered By: Laurence Hinds on 10-14-2023 Creatinine [Mass/Vol] 0.81 mg/dL 0.55-1.02 [facility] Comment on above: The validity of the calculated GFR & GFRAA in patients over 70 years has not been determined. Clinical correlation is essential. Serum or plasma urea nitroge n measurement (mass/volume)Ordered By: Laurence Hinds on 10-14-2023 Urea nitrogen [Mass/Vol] 21 mg/dL 7-18 [facility] Thin prep Papanicolaou smear with manual screeningOrdered By: Laurence Hinds on 10-14-2023 Thin prep Papanicolaou smear with manual screening 19 U/L 15-37 [facility] Thin prep Papanicolaou smear with manual screening 7 5-15 [facility] Absolute lymphocyte countOrd ered By: Laurence Hinds on 07-16-2023 Lymphocytes Auto (Unsp spec) [#/Vol] 1.94 10*3/uL 0.83-4.51 [facility] Basophil percentageOrdered B y: Laurence Hinds on 07-16-2023 Basophils/100 WBC (Bld) 0.8 % 0-1 [facility] Bilirubin [Mass/Vol] 0.40 mg/dL 0.20-1.00 [facility] Comment on above: For patients on eltr ombopag therapy, use of Dimension [place] TBIL is not recommended. Chloride [Moles/Vol] 100 mmol/L 98-107 [facility] Eosinophils/100 WBC (Bld) 3.1 % 0-5 [facility] Glucose [Mass/Vol] 97 mg/dL 74-106 [facility] Neutrophils (Bld) [#/Vol] 3.5 10*3/uL 2.0-7.7 [facility] Neutrophils/100 WBC (Bld) 53.4 % 47-70 [facility] Potassium [Moles/Vol] 5.1 mmol/L 3.5-5.1 [facility] Protein [Mass/Vol] 7.9 g/dL 6.4-8.2 [facility] Sodium [Moles/Vol] 133 mmol/L 136-145 [facility] WBC (Bld) [#/Vol] 6.5 10*3/uL 4.4-11.0 [facility] Blood erythrocytes count (nu mber/volume)Ordered By: Laurence Hinds on 07-16-2023 RBC (Bld) [#/Vol] 4.30 10*6/uL 4.2-5.4 [facility] Blood hemoglobin measurement (mass/volume)Ordered By: Laurence Hinds on 07-16-2023 Hemoglobin (Bld) [Mass/Vol] 13.1 g/dL 12.0-15.0 [facility] Blood lymphocytes/100 leukoc ytesOrdered By: Laurence Hinds on 07-16-2023 Lymphocytes/100 WBC (Bld) 30.0 % 19-41 [facility] Blood monocytes/100 leukocyt esOrdered By: Laurence Hinds on 07-16-2023 Monocytes/100 WBC (Bld) 12.2 % 0-10 [facility] Blood platelet mean volumeOr dered By: Laurence Hinds on 07-16-2023 Platelet mean volume (Bld) [Entitic vol] 10.4 fL 6.2-12.0 [facility] Determination of erythrocyte mean corpuscular volume (MCV)Ordered By: Laurence Hinds on 07-16-2023 MCV (RBC) [Entitic vol] 100.0 fL 81-99 [facility] Hematocrit Auto (Bld) [Volum e fraction]Ordered By: Laurence Hinds on 07-16-2023 Hematocrit (Bld) [Volume fraction] 43.0 % 37-47 [facility] Laboratory - Chemistry and C hemistry - challengeOrdered By: Laurence Hinds on 07-16-2023 ALP [Catalytic activity/Vol] 86 U/L 45-117 [facility] ALT [Catalytic activity/Vol] 21 U/L 13-56 [facility] CO2 [Moles/Vol] 29.0 mmol/L 21.0-32.0 [facility] Globulin (S) [Mass/Vol] 4.0 g/dL 2.2-4.2 [facility] Urea nitrogen/Creatinine [Mass ratio] 25.3 mg/mg 10-20 [facility] Laboratory - Hematology and Cell countsOrdered By: Laurence Hinds on 07-16-2023 Erythrocyte distribution width (RBC) [Entitic vol] 47.9 fL 35.1-43.9 [facility] Erythrocyte distribution width (RBC) [Ratio] 13.0 % 11.6-14.6 [facility] Immature granulocytes/100 WBC (Bld) 0.500 % 0.0-0.9 [facility] Comment on above: IG% - Immature Granu locytes (promyelocytes, myelocytes and metamyelocytes) > 1% indicates that a LEFT SHIFT is Present. MCH (RBC) [Entitic mass] 30.5 pg 27.0-32.0 [facility] Nucleated RBC/100 WBC (Bld) [Ratio] 0 % 0-5 [facility] MCHC Auto (RBC) [Mass/Vol]Or dered By: Laurenceshelley Hinds on 07-16-2023 MCHC (RBC) [Mass/Vol] 30.5 g/dL 32-36 [facility] No Panel InformationOrdered By: Laurence Hinds on 07-16-2023 Estimated GFR (MDRD) Amer 89 mL/min >60 [facility] Comment on above: GFR Calc Estimated GFR (MDRD) Non-Af Amer 73 mL/min >60 [facility] Comment on above: Non- GFR Calc Platelets bldOrdered By: Sergio Hinds on 07-16-2023 Platelets (Bld) [#/Vol] 298 10*3/uL 150-450 [facility] Serum or plasma albumin rhonda urement (mass/volume)Ordered By: Laurence Hinds on 07-16-2023 Albumin [Mass/Vol] 3.9 g/dL 3.2-5.0 [facility] Serum or plasma albumin/glob ulin mass ratioOrdered By: Laurence Hinds on 07-16-2023 Albumin/Globulin [Mass ratio] 1.0 {ratio} 0.9-2.4 [facility] Serum or plasma calcium rhonda urement (mass/volume)Ordered By: Laurence Hinds on 07-16-2023 Calcium [Mass/Vol] 10.1 mg/dL 8.5-10.1 [facility] Serum or plasma creatinine m easurement (mass/volume)Ordered By: Laurence Hinds on 07-16-2023 Creatinine [Mass/Vol] 0.79 mg/dL 0.55-1.02 [facility] Comment on above: The validity of the calculated GFR & GFRAA in patients over 70 years has not been determined. Clinical correlation is essential. Serum or plasma urea nitroge n measurement (mass/volume)Ordered By: Laurence Hinds on 07-16-2023 Urea nitrogen [Mass/Vol] 20 mg/dL 7-18 [facility] Thin prep Papanicolaou smear with manual screeningOrdered By: Laurence Hinds on 07-16-2023 Thin prep Papanicolaou smear with manual screening 16 U/L 15-37 [facility] Thin prep Papanicolaou smear with manual screening 4 5-15 [facility] Albumin Elph [Mass/Vol]Order ed By: Chong Cantu on 07-25-2023 Albumin [Mass/Vol] 4.0 g/dL 2.9-4.4 [facility] Basophil percentageOrdered B y: Chong Cantu on 06-08-2023 Basophil percentage Comment . [facility] Comment on above: No monoclonality det ected.Performed at: [facility] [id number] [place], [place] [id number] Director: Rodrigo Hawley PhD, Phone: [phone] Interpretation of serum or p lasma protein pattern by immunofixation (narrative resultOrdered By: Chong Cantu on 06-08-2023 Protein Fractions Immunofixation Devendra [Interp] See comment [facility] Comment on above: Result: Not Observed No Panel InformationOrdered By: Chong Cantu on 06-08-2023 Addendum Document Comment . [facility] Comment on above: Protein electrophore sis scan will follow via computer,mail, or linen room custodian delivery. Serum [id number] measu rement by electrophoresisOrdered By: Chong Cantu on 06-08-2023 Alpha 1 globulin Elph [Mass/Vol] 0.2 g/dL 0.0-0.4 [facility] Alpha 1 globulin Elph [Mass/Vol] 0.9 g/dL 0.4-1.0 [facility] Serum globulin measurement ( mass/volume)Ordered By: Chong Cantu on 06-08-2023 Globulin (S) [Mass/Vol] 3.1 g/dL 2.2-3.9 [facility] Serum or plasma IgA measurem ent (mass/volume)Ordered By: Chong Cantu on 06-08-2023 IgA [Mass/Vol] 204 mg/dL 64-422 [facility] Serum or plasma IgG measurem ent (mass/volume)Ordered By: Chong Cantu on 06-08-2023 IgG [Mass/Vol] 1225 mg/dL [id number] [facility] Serum or plasma IgM measurem ent (mass/volume)Ordered By: Chong Cantu on 06-08-2023 IgM [Mass/Vol] 120 mg/dL 26-217 [facility] Serum or plasma beta globuli n measurement by electrophoresis (mass/volume)Ordered By: Chong Cantu on 06-08-2023 Beta globulin Elph [Mass/Vol] 0.9 g/dL 0.7-1.3 [facility] Serum or plasma gamma globul in measurement by electrophoresis (mass/volume)Ordered By: Chong Robmiguel ángel on 06-08-2023 Gamma globulin Elph [Mass/Vol] 1.2 g/dL 0.4-1.8 [facility] Serum or plasma immunoelectr ophoresis interpretation (nominal result)Ordered By: Chong Cantu on 06-08-2023 Interpretation IEP [Interp] Comment . [facility] Comment on above: No monoclonality det ected. Thin prep Papanicolaou smear with manual screeningOrdered By: Chong Cantu on 06-08-2023 Thin prep Papanicolaou smear with manual screening 1.3 0.7-1.7 [facility] Total protein bloodOrdered B y: Chong Cantu on 06-08-2023 Protein [Mass/Vol] 7.1 g/dL 6.0-8.5 [facility] UA DIP, URINE (POC)on 2022 BILIRUBIN UA (POCT) Negative Negative [facility] CLARITY UA (POCT) Clear [facility] COLOR UA (POCT) Light yellow [facility] GLUCOSE UA (POCT) Negative Negative mg/dL [facility] HEMOGLOBIN/BLOOD UA (POCT) Small Abnormal Negative [facility] KETONE UA (POCT) Negative Negative mg/dL [facility] LEUKOCYTES UA (POCT) Small Abnormal Negative [facility] NITRITE UA (POCT) Negative Negative [facility] PH UA (POCT) 5.5 4.5 - 8.0 [facility] Protein Ql (U) Negative Negative mg/dL [facility] SPECIFIC GRAVITY UA (POCT) 1.015 1.005 - 1.030 [facility] UROBILINOGEN UA (POCT) 0.2 E.U./dL Radha l E.U./dL [facility] Absolute lymphocyte countOrd ered By: Dr. Hinds on 03-15-2023 Lymphocytes Auto (Unsp spec) [#/Vol] 1.76 10*3/uL 0.83-4.51 [facility] Basophil percentageOrdered B y: Dr. Hinds on 03-15-2023 Basophils/100 WBC (Bld) 0.7 % 0-1 [facility] Bilirubin [Mass/Vol] 0.30 mg/dL 0.20-1.00 [facility] Comment on above: For patients on eltr ombopag therapy, use of Dimension [place] TBIL is not recommended. Chloride [Moles/Vol] 103 mmol/L 98-107 [facility] Eosinophils/100 WBC (Bld) 2.7 % 0-5 [facility] Glucose [Mass/Vol] 91 mg/dL 74-106 [facility] Neutrophils (Bld) [#/Vol] 2.9 10*3/uL 2.0-7.7 [facility] Neutrophils/100 WBC (Bld) 52.8 % 47-70 [facility] Potassium [Moles/Vol] 4.5 mmol/L 3.5-5.1 [facility] Protein [Mass/Vol] 7.2 g/dL 6.4-8.2 [facility] Sodium [Moles/Vol] 135 mmol/L 136-145 [facility] WBC (Bld) [#/Vol] 5.5 10*3/uL 4.4-11.0 [facility] Blood erythrocytes count (nu mber/volume)Ordered By: Dr. Hinds on 03-15-2023 RBC (Bld) [#/Vol] 3.97 10*6/uL 4.2-5.4 [facility] Blood hemoglobin measurement (mass/volume)Ordered By: Dr. Hinds on 03-15-2023 Hemoglobin (Bld) [Mass/Vol] 12.4 g/dL 12.0-15.0 [facility] Blood lymphocytes/100 leukoc ytesOrdered By: Dr. Hinds on 03-15-2023 Lymphocytes/100 WBC (Bld) 32.2 % 19-41 [facility] Blood monocytes/100 leukocyt esOrdered By: Dr. Hinds on 03-15-2023 Monocytes/100 WBC (Bld) 11.4 % 0-10 [facility] Blood platelet mean volumeOr dered By: Dr. Hinds on 03-15-2023 Platelet mean volume (Bld) [Entitic vol] 10.3 fL 6.2-12.0 [facility] Determination of erythrocyte mean corpuscular volume (MCV)Ordered By: Dr. Hinds on 03-15-2023 MCV (RBC) [Entitic vol] 101.0 fL 81-99 [facility] Hematocrit Auto (Bld) [Volum e fraction]Ordered By: Dr. Hinds on 03-15-2023 Hematocrit (Bld) [Volume fraction] 40.1 % 37-47 [facility] Laboratory - Chemistry and C hemistry - challengeOrdered By: Dr. Hinds on 03-15-2023 ALP [Catalytic activity/Vol] 84 U/L 45-117 [facility] ALT [Catalytic activity/Vol] 17 U/L 13-56 [facility] CO2 [Moles/Vol] 27.0 mmol/L 21.0-32.0 [facility] Globulin (S) [Mass/Vol] 3.7 g/dL 2.2-4.2 [facility] Urea nitrogen/Creatinine [Mass ratio] 24.4 mg/mg 10-20 [facility] Laboratory - Hematology and Cell countsOrdered By: Dr. Hinds on 03-15-2023 Erythrocyte distribution width (RBC) [Entitic vol] 49.8 fL 35.1-43.9 [facility] Erythrocyte distribution width (RBC) [Ratio] 13.6 % 11.6-14.6 [facility] Immature granulocytes/100 WBC (Bld) 0.200 % 0.0-0.9 [facility] Comment on above: IG% - Immature Granu locytes (promyelocytes, myelocytes and metamyelocytes) > 1% indicates that a LEFT SHIFT is Present. MCH (RBC) [Entitic mass] 31.2 pg 27.0-32.0 [facility] Nucleated RBC/100 WBC (Bld) [Ratio] 0 % 0-5 [facility] MCHC Auto (RBC) [Mass/Vol]Or dered By: Dr. Hinds on 03-15-2023 MCHC (RBC) [Mass/Vol] 30.9 g/dL 32-36 [facility] No Panel InformationOrdered By: Dr. Hinds on 03-15-2023 Estimated GFR (MDRD) Amer 96 mL/min >60 [facility] Comment on above: GFR Calc Estimated GFR (MDRD) Non-Af Amer 79 mL/min >60 [facility] Comment on above: Non- GFR Calc Platelets bldOrdered By: Dr. Hinds on 03-15-2023 Platelets (Bld) [#/Vol] 235 10*3/uL 150-450 [facility] Serum or plasma albumin rhonda urement (mass/volume)Ordered By: Dr. Hinds on 03-15-2023 Albumin [Mass/Vol] 3.5 g/dL 3.2-5.0 [facility] Serum or plasma albumin/glob ulin mass ratioOrdered By: Dr. Hinds on 03-15-2023 Albumin/Globulin [Mass ratio] 0.9 {ratio} 0.9-2.4 [facility] Serum or plasma calcium rhonda urement (mass/volume)Ordered By: Dr. Hinds on 03-15-2023 Calcium [Mass/Vol] 9.8 mg/dL 8.5-10.1 [facility] Serum or plasma creatinine m easurement (mass/volume)Ordered By: Dr. Hinds on 03-15-2023 Creatinine [Mass/Vol] 0.74 mg/dL 0.55-1.02 [facility] Comment on above: The validity of the calculated GFR & GFRAA in patients over 70 years has not been determined. Clinical correlation is essential. Serum or plasma urea nitroge n measurement (mass/volume)Ordered By: Dr. Hinds on 03-15-2023 Urea nitrogen [Mass/Vol] 18 mg/dL 7-18 [facility] Thin prep Papanicolaou smear with manual screeningOrdered By: Dr. Hinds on 03-15-2023 Thin prep Papanicolaou smear with manual screening 18 U/L 15-37 [facility] Thin prep Papanicolaou smear with manual screening 5 5-15 [facility] UA DIP, URINE (POC)on 2022 BILIRUBIN UA (POCT) Negative Negative [facility] CLARITY UA (POCT) Slightly Cloudy Cl [facility] COLOR UA (POCT) Yellow [facility] GLUCOSE UA (POCT) Negative Negative mg/dL [facility] HEMOGLOBIN/BLOOD UA (POCT) Moderate Abnormal Negative [facility] KETONE UA (POCT) Negative Negative mg/dL [facility] LEUKOCYTES UA (POCT) Small Abnormal Negative [facility] NITRITE UA (POCT) Negative Negative [facility] PH UA (POCT) 6.5 4.5 - 8.0 [facility] Protein Ql (U) Negative Negative mg/dL [facility] SPECIFIC GRAVITY UA (POCT) 1.015 1.005 - 1.030 [facility] UROBILINOGEN UA (POCT) 0.2 E.U./dL Radha l E.U./dL [facility] No Panel InformationOrdered By: Dr. Cantu on 02-02-2023 Free Lambda Light Chains, Quant 22.0 mg/L 5.7-26.3 [facility] Serum immunoglobulin kappa l ight chains/immunoglobulin lambda light chains mass ratioOrdered By: Dr. Cantu on 02-02-2023 Immunoglobulin light chains.kappa/Immunoglobul in light chains.lambda (S) [Mass ratio] 2.25 0.26-1.65 [facility] Comment on above: Performed at: [place] [id number] Director: Rodrigo Hawley PhD, Phone: [phone] Serum or plasma immunoglobul in kappa light chains measurement (mass/volume)Ordered By: Dr. Cantu on 02-02-2023 Immunoglobulin light chains.kappa [Mass/Vol] 49.4 mg/L 3.3-19.4 [facility] Absolute lymphocyte countOrd ered By: Dr. Hinds on 12-24-2022 Lymphocytes Auto (Unsp spec) [#/Vol] 1.80 10*3/uL 0.83-4.51 [facility] Basophil percentageOrdered B y: Dr. Hinds on 12-24-2022 Basophils/100 WBC (Bld) 0.6 % 0-1 [facility] Bilirubin [Mass/Vol] 0.40 mg/dL 0.20-1.00 [facility] Comment on above: For patients on eltr ombopag therapy, use of [place]ension [place] TBIL is not recommended. Chloride [Moles/Vol] 100 mmol/L 98-107 [facility] Eosinophils/100 WBC (Bld) 1.9 % 0-5 [facility] Glucose [Mass/Vol] 91 mg/dL 74-106 [facility] Neutrophils (Bld) [#/Vol] 3.6 10*3/uL 2.0-7.7 [facility] Neutrophils/100 WBC (Bld) 57.1 % 47-70 [facility] Potassium [Moles/Vol] 4.3 mmol/L 3.5-5.1 [facility] Protein [Mass/Vol] 7.5 g/dL 6.4-8.2 [facility] Sodium [Moles/Vol] 135 mmol/L 136-145 [facility] WBC (Bld) [#/Vol] 6.3 10*3/uL 4.4-11.0 [facility] Blood erythrocytes count (nu mber/volume)Ordered By: Dr. Hinds on 12-24-2022 RBC (Bld) [#/Vol] 4.12 10*6/uL 4.2-5.4 [facility] Blood hemoglobin measurement (mass/volume)Ordered By: Dr. Hinds on 12-24-2022 Hemoglobin (Bld) [Mass/Vol] 12.8 g/dL 12.0-15.0 [facility] Blood lymphocytes/100 leukoc ytesOrdered By: Dr. Hinds on 12-24-2022 Lymphocytes/100 WBC (Bld) 28.4 % 19-41 [facility] Blood monocytes/100 leukocyt esOrdered By: Dr. Hinds on 12-24-2022 Monocytes/100 WBC (Bld) 11.8 % 0-10 [facility] Blood platelet mean volumeOr dered By: Dr. Hinds on 12-24-2022 Platelet mean volume (Bld) [Entitic vol] 10.6 fL 6.2-12.0 [facility] Determination of erythrocyte mean corpuscular volume (MCV)Ordered By: Dr. Hinds on 12-24-2022 MCV (RBC) [Entitic vol] 100.5 fL 81-99 [facility] Hematocrit Auto (Bld) [Volum e fraction]Ordered By: Dr. Hinds on 02-09-2023 Hematocrit (Bld) [Volume fraction] 41.4 % 37-47 [facility] Laboratory - Chemistry and C hemistry - challengeOrdered By: Dr. Hinds on 12-24-2022 ALP [Catalytic activity/Vol] 86 U/L 45-117 [facility] ALT [Catalytic activity/Vol] 15 U/L 13-56 [facility] CO2 [Moles/Vol] 28.0 mmol/L 21.0-32.0 [facility] Globulin (S) [Mass/Vol] 3.7 g/dL 2.2-4.2 [facility] Urea nitrogen/Creatinine [Mass ratio] 28.3 mg/mg 10-20 [facility] Laboratory - Hematology and Cell countsOrdered By: Dr. Hinds on 12-24-2022 Erythrocyte distribution width (RBC) [Entitic vol] 46.7 fL 35.1-43.9 [facility] Erythrocyte distribution width (RBC) [Ratio] 12.7 % 11.6-14.6 [facility] Immature granulocytes/100 WBC (Bld) 0.200 % 0.0-0.9 [facility] Comment on above: IG% - Immature Granu locytes (promyelocytes, myelocytes and metamyelocytes) > 1% indicates that a LEFT SHIFT is Present. MCH (RBC) [Entitic mass] 31.1 pg 27.0-32.0 [facility] Nucleated RBC/100 WBC (Bld) [Ratio] 0 % 0-5 [facility] MCHC Auto (RBC) [Mass/Vol]Or dered By: Dr. Hinds on 12-24-2022 MCHC (RBC) [Mass/Vol] 30.9 g/dL 32-36 [facility] No Panel InformationOrdered By: Dr. Hinds on 12-24-2022 Estimated GFR (MDRD) Amer 86 mL/min >60 [facility] Comment on above: GFR Calc Estimated GFR (MDRD) Non-Af Amer 71 mL/min >60 [facility] Comment on above: Non- GFR Calc Platelets bldOrdered By: Dr. Hinds on 12-24-2022 Platelets (Bld) [#/Vol] 275 10*3/uL 150-450 [facility] Serum or plasma albumin rhonda urement (mass/volume)Ordered By: Dr. Hinds on 12-24-2022 Albumin [Mass/Vol] 3.8 g/dL 3.2-5.0 [facility] Serum or plasma albumin/glob ulin mass ratioOrdered By: Dr. Hinds on 12-24-2022 Albumin/Globulin [Mass ratio] 1.0 {ratio} 0.9-2.4 [facility] Serum or plasma calcium rhonda urement (mass/volume)Ordered By: Dr. Hinds on 12-24-2022 Calcium [Mass/Vol] 9.9 mg/dL 8.5-10.1 [facility] Serum or plasma creatinine m easurement (mass/volume)Ordered By: Dr. Hinds on 12-24-2022 Creatinine [Mass/Vol] 0.81 mg/dL 0.55-1.02 [facility] Comment on above: The validity of the calculated GFR & GFRAA in patients over 70 years has not been determined. Clinical correlation is essential. Serum or plasma urea nitroge n measurement (mass/volume)Ordered By: Dr. Hinds on 12-24-2022 Urea nitrogen [Mass/Vol] 23 mg/dL 7-18 [facility] Thin prep Papanicolaou smear with manual screeningOrdered By: Dr. Hinds on 12-24-2022 Thin prep Papanicolaou smear with manual screening 17 U/L 15-37 [facility] Thin prep Papanicolaou smear with manual screening 7 5-15 [facility] Absolute lymphocyte counton 08-24-2022 Lymphocytes Auto (Unsp spec) [#/Vol] 1.68 10*3/uL 0.83-4.51 [facility] Work Phone: Basophil percentageon 2021 Basophils/100 WBC (Bld) 0.4 % 0-1 [facility] Work Phone: Bilirubin [Mass/Vol] 0.40 mg/dL 0.20-1.00 [facility] Work Phone: Comment on above: For patients on eltr ombopag therapy, use of [place]ension [place] TBIL is not recommended. Chloride [Moles/Vol] 102 mmol/L 98-107 [facility] Work Phone: Eosinophils/100 WBC (Bld) 2.0 % 0-5 [facility] Work Phone: Glucose [Mass/Vol] 86 mg/dL 74-106 [facility] Work Phone: Neutrophils (Bld) [#/Vol] 2.9 10*3/uL 2.0-7.7 [facility] Work Phone: Neutrophils/100 WBC (Bld) 56.1 % 47-70 [facility] Work Phone: Potassium [Moles/Vol] 4.1 mmol/L 3.5-5.1 [facility] Work Phone: Protein [Mass/Vol] 7.6 g/dL 6.4-8.2 [facility] Work Phone: Sodium [Moles/Vol] 135 mmol/L 136-145 [facility] Work Phone: WBC (Bld) [#/Vol] 5.1 10*3/uL 4.4-11.0 [facility] Work Phone: Blood erythrocytes count (nu mber/volume)on 08-24-2022 RBC (Bld) [#/Vol] 3.71 10*6/uL 4.2-5.4 [facility] Work Phone: Blood hemoglobin measurement (mass/volume)on 08-24-2022 Hemoglobin (Bld) [Mass/Vol] 11.6 g/dL 12.0-15.0 [facility] Work Phone: Blood lymphocytes/100 leukoc yteson 08-24-2022 Lymphocytes/100 WBC (Bld) 33.0 % 19-41 [facility] Work Phone: Blood monocytes/100 leukocyt eson 08-24-2022 Monocytes/100 WBC (Bld) 8.3 % 0-10 [facility] Work Phone: Blood platelet mean volumeon 08-24-2022 Platelet mean volume (Bld) [Entitic vol] 9.9 fL 6.2-12.0 [facility] Work Phone: [phone] Determination of erythrocyte mean corpuscular volume (MCV)on 08-24-2022 MCV (RBC) [Entitic vol] 101.9 fL 81-99 [facility] Work Phone: [phone] Hematocrit Auto (Bld) [Volum e fraction]on 08-24-2022 Hematocrit (Bld) [Volume fraction] 37.8 % 37-47 [facility] Work Phone: Laboratory - Chemistry and C hemistry - challengeon 08-24-2022 ALP [Catalytic activity/Vol] 82 U/L 45-117 [facility] Work Phone: [phone] ALT [Catalytic activity/Vol] 39 U/L 13-56 [facility] Work Phone: [phone] CO2 [Moles/Vol] 29.0 mmol/L 21.0-32.0 [facility] Work Phone: [phone] Globulin (S) [Mass/Vol] 3.9 g/dL 2.2-4.2 [facility] Work Phone: [phone] Urea nitrogen/Creatinine [Mass ratio] 23.6 mg/mg 10-20 [facility] Work Phone: [phone] Laboratory - Hematology and Cell countson 08-24-2022 Erythrocyte distribution width (RBC) [Entitic vol] 51.7 fL 35.1-43.9 [facility] Work Phone: [phone] Erythrocyte distribution width (RBC) [Ratio] 14.4 % 11.6-14.6 [facility] Work Phone: [phone] Immature granulocytes/100 WBC (Bld) 0.200 % 0.0-0.9 [facility] Work Phone: [phone] Comment on above: IG% - Immature Granu locytes (promyelocytes, myelocytes and metamyelocytes) > 1% indicates that a LEFT SHIFT is Present. MCH (RBC) [Entitic mass] 31.3 pg 27.0-32.0 [facility] Work Phone: Nucleated RBC/100 WBC (Bld) [Ratio] 0 % 0-5 [facility] Work Phone: MCHC Auto (RBC) [Mass/Vol]on 08-24-2022 MCHC (RBC) [Mass/Vol] 30.7 g/dL 32-36 [facility] Work Phone: No Panel Informationon 08-24 Estimated GFR (MDRD) Amer 99 mL/min >60 [facility] Work Phone: Comment on above: GFR Calc Estimated GFR (MDRD) Non-Af Amer 82 mL/min >60 [facility] Work Phone: Comment on above: Non- GFR Calc Platelets bldon 08-24-2022 Platelets (Bld) [#/Vol] 278 10*3/uL 150-450 [facility] Work Phone: Serum or plasma albumin rhonda urement (mass/volume)on 08-24-2022 Albumin [Mass/Vol] 3.7 g/dL 3.2-5.0 [facility] Work Phone: Serum or plasma albumin/glob ulin mass ratioon 08-24-2022 Albumin/Globulin [Mass ratio] 0.9 {ratio} 0.9-2.4 [facility] Work Phone: Serum or plasma calcium rhonda urement (mass/volume)on 08-24-2022 Calcium [Mass/Vol] 11.1 mg/dL 8.5-10.1 [facility] Work Phone: Serum or plasma creatinine m easurement (mass/volume)on 08-24-2022 Creatinine [Mass/Vol] 0.72 mg/dL 0.55-1.02 [facility] Work Phone: Comment on above: The validity of the calculated GFR & GFRAA in patients over 70 years has not been determined. Clinical correlation is essential. Serum or plasma urea nitroge n measurement (mass/volume)on 08-24-2022 Urea nitrogen [Mass/Vol] 17 mg/dL 7-18 [facility] Work Phone: [phone] Thin prep Papanicolaou smear with manual screeningon 08-24-2022 Thin prep Papanicolaou smear with manual screening 37 U/L 15-37 [facility] Work Phone: [phone] Thin prep Papanicolaou smear with manual screening 4 5-15 [facility] Work Phone: [phone] UA DIP, URINE (POC)on 2021 BILIRUBIN UA (POCT) Negative Negative [facility] CLARITY UA (POCT) [facility] COLOR UA (POCT) Light yellow [facility] GLUCOSE UA (POCT) Negative Negative mg/dL [facility] HEMOGLOBIN/BLOOD UA (POCT) Small Abnormal Negative [facility] KETONE UA (POCT) Negative Negative mg/dL [facility] LEUKOCYTES UA (POCT) Moderate Abnormal Negative [facility] NITRITE UA (POCT) Positive Abnormal Negative [facility] PH UA (POCT) 6.5 4.5 - 8.0 [facility] Protein Ql (U) Negative Negative mg/dL [facility] SPECIFIC GRAVITY UA (POCT) 1.020 1.005 - 1.030 [facility] UROBILINOGEN UA (POCT) 0.2 E.U./dL Radha l E.U./dL [facility] Iron measurement (mass/mass) on 06-01-2022 Iron (Unsp spec) [Mass/Mass] 58 ug/dL 50-170 [facility] Work Phone: [phone] Laboratory - Chemistry and C hemistry - challengeon 06-01-2022 Cobalamin (Vitamin B12) [Mass/Vol] 215 pg/mL 211-911 [facility] Work Phone: [phone] Panel Informationon 06-01 Levetiracetam (Keppra) Level <1.0 ug/mL 10.0-40.0 [facility] Work Phone: [phone] Comment on above: Performed at: [address] [id number] Director: Panda Johnson MD, Phone: [phone] Thyroid Stimulating Hormone (TSH) 2.34 uIU/mL 0.358-3.74 [facility] Work Phone: Whole Blood Vitamin B1 Level 112.2 nmol/L 66.5-200.0 [facility] Work Phone: [phone] Serum or plasma calcitriol m easurement (mass/volume)on 06-01-2022 1,25-dihydroxyvitamin D3 [Mass/Vol] 61.5 pg/mL 24.8-81.5 [facility] Work Phone: Comment on above: Please note refere nce interval changePerformed at: [facility] [id number] Director: Panda Johnson MD, Phone: [phone] Serum or plasma ferritin savana surement (mass/volume)on 06-01-2022 Ferritin [Mass/Vol] 67 ng/mL 8-252 [facility] Work Phone: [phone] Serum or plasma folate measu rement (mass/volume)on 06-01-2022 Folate [Mass/Vol] ng/mL 3.1-55.4 [facility] Work Phone: [phone] Absolute lymphocyte counton 05-27-2022 Lymphocytes Auto (Unsp spec) [#/Vol] 1.43 10*3/uL 0.83-4.51 [facility] Work Phone: [phone] Basophil percentageon 2021 Basophils/100 WBC (Bld) 0.4 % 0-1 [facility] Work Phone: [phone] Bilirubin [Mass/Vol] 0.30 mg/dL 0.20-1.00 [facility] Work Phone: [phone] Comment on above: For patients on eltr ombopag therapy, use of [place]ension [place] TBIL is not recommended. Chloride [Moles/Vol] 101 mmol/L 98-107 [facility] Work Phone: Eosinophils/100 WBC (Bld) 2.2 % 0-5 [facility] Work Phone: [phone] Glucose [Mass/Vol] 81 mg/dL 74-106 [facility] Work Phone: Neutrophils (Bld) [#/Vol] 4.3 10*3/uL 2.0-7.7 [facility] Work Phone: Neutrophils/100 WBC (Bld) 64.0 % 47-70 [facility] Work Phone: Potassium [Moles/Vol] 4.4 mmol/L 3.5-5.1 [facility] Work Phone: Protein [Mass/Vol] 7.2 g/dL 6.4-8.2 [facility] Work Phone: Sodium [Moles/Vol] 133 mmol/L 136-145 [facility] Work Phone: WBC (Bld) [#/Vol] 6.8 10*3/uL 4.4-11.0 [facility] Work Phone: Blood erythrocytes count (nu mber/volume)on 05-27-2022 RBC (Bld) [#/Vol] 3.64 10*6/uL 4.2-5.4 [facility] Work Phone: Blood hemoglobin measurement (mass/volume)on 05-27-2022 Hemoglobin (Bld) [Mass/Vol] 11.6 g/dL 12.0-15.0 [facility] Work Phone: Blood lymphocytes/100 leukoc yteson 05-27-2022 Lymphocytes/100 WBC (Bld) 21.1 % 19-41 [facility] Work Phone: Blood monocytes/100 leukocyt eson 05-27-2022 Monocytes/100 WBC (Bld) 12.0 % 0-10 [facility] Work Phone: Blood platelet mean volumeon 05-27-2022 Platelet mean volume (Bld) [Entitic vol] 10.2 fL 6.2-12.0 [facility] Work Phone: Determination of erythrocyte mean corpuscular volume (MCV)on 05-27-2022 MCV (RBC) [Entitic vol] 103.8 fL 81-99 [facility] Work Phone: [phone] Hematocrit Auto (Bld) [Volum e fraction]on 05-27-2022 Hematocrit (Bld) [Volume fraction] 37.8 % 37-47 [facility] Work Phone: [phone] Laboratory - Chemistry and C hemistry - challengeon 05-27-2022 ALP [Catalytic activity/Vol] 91 U/L 45-117 [facility] Work Phone: [phone] ALT [Catalytic activity/Vol] 17 U/L 13-56 [facility] Work Phone: [phone] CO2 [Moles/Vol] 28.0 mmol/L 21.0-32.0 [facility] Work Phone: [phone] Globulin (S) [Mass/Vol] 3.6 g/dL 2.2-4.2 [facility] Work Phone: [phone] Urea nitrogen/Creatinine [Mass ratio] 18.3 mg/mg 10-20 [facility] Work Phone: [phone] Laboratory - Hematology and Cell countson 05-27-2022 Erythrocyte distribution width (RBC) [Entitic vol] 51.5 fL 35.1-43.9 [facility] Work Phone: [phone] Erythrocyte distribution width (RBC) [Ratio] 13.4 % 11.6-14.6 [facility] Work Phone: [phone] Immature granulocytes/100 WBC (Bld) 0.300 % 0.0-0.9 [facility] Work Phone: [phone] Comment on above: IG% - Immature Granu locytes (promyelocytes, myelocytes and metamyelocytes) > 1% indicates that a LEFT SHIFT is Present. MCH (RBC) [Entitic mass] 31.9 pg 27.0-32.0 [facility] Work Phone: [phone] Nucleated RBC/100 WBC (Bld) [Ratio] 0 % 0-5 [facility] Work Phone: [phone] MCHC Auto (RBC) [Mass/Vol]on 05-27-2022 MCHC (RBC) [Mass/Vol] 30.7 g/dL 32-36 [facility] Work Phone: No Panel Informationon 05-27 Estimated GFR (MDRD) Amer 92 mL/min >60 [facility] Work Phone: Comment on above: GFR Calc Estimated GFR (MDRD) Non-Af Amer 76 mL/min >60 [facility] Work Phone: Comment on above: Non- GFR Calc Platelets bldon 05-27-2022 Platelets (Bld) [#/Vol] 255 10*3/uL 150-450 [facility] Work Phone: Serum or plasma albumin rhonda urement (mass/volume)on 05-27-2022 Albumin [Mass/Vol] 3.6 g/dL 3.2-5.0 [facility] Work Phone: Serum or plasma albumin/glob ulin mass ratioon 05-27-2022 Albumin/Globulin [Mass ratio] 1.0 {ratio} 0.9-2.4 [facility] Work Phone: Serum or plasma calcium rhonda urement (mass/volume)on 05-27-2022 Calcium [Mass/Vol] 9.7 mg/dL 8.5-10.1 [facility] Work Phone: Serum or plasma creatinine m easurement (mass/volume)on 05-27-2022 Creatinine [Mass/Vol] 0.76 mg/dL 0.55-1.02 [facility] Work Phone: Comment on above: The validity of the calculated GFR & GFRAA in patients over 70 years has not been determined. Clinical correlation is essential. Serum or plasma urea nitroge n measurement (mass/volume)on 05-27-2022 Urea nitrogen [Mass/Vol] 14 mg/dL 7-18 [facility] Work Phone: Thin prep Papanicolaou smear with manual screeningon 05-27-2022 Thin prep Papanicolaou smear with manual screening 14 U/L 15-37 [facility] Work Phone: Thin prep Papanicolaou smear with manual screening 4 5-15 [facility] Work Phone: Absolute lymphocyte counton 02-23-2022 Lymphocytes Auto (Unsp spec) [#/Vol] 1.94 10*3/uL 0.83-4.51 [facility] Work Phone: Basophil percentageon 2021 Basophils/100 WBC (Bld) 0.6 % 0-1 [facility] Work Phone: Bilirubin [Mass/Vol] 0.40 mg/dL 0.20-1.00 [facility] Work Phone: Comment on above: For patients on eltr ombopag therapy, use of Dimension [place] TBIL is not recommended. Chloride [Moles/Vol] 101 mmol/L 98-107 [facility] Work Phone: Eosinophils/100 WBC (Bld) 2.2 % 0-5 [facility] Work Phone: Glucose [Mass/Vol] 86 mg/dL 74-106 [facility] Work Phone: Neutrophils (Bld) [#/Vol] 3.7 10*3/uL 2.0-7.7 [facility] Work Phone: Neutrophils/100 WBC (Bld) 57.0 % 47-70 [facility] Work Phone: Potassium [Moles/Vol] 4.4 mmol/L 3.5-5.1 [facility] Work Phone: Protein [Mass/Vol] 7.5 g/dL 6.4-8.2 [facility] Work Phone: Sodium [Moles/Vol] 135 mmol/L 136-145 [facility] Work Phone: WBC (Bld) [#/Vol] 6.5 10*3/uL 4.4-11.0 [facility] Work Phone: Blood erythrocytes count (nu mber/volume)on 02-23-2022 RBC (Bld) [#/Vol] 3.86 10*6/uL 4.2-5.4 [facility] Work Phone: [phone] Blood hemoglobin measurement (mass/volume)on 02-23-2022 Hemoglobin (Bld) [Mass/Vol] 11.8 g/dL 12.0-15.0 [facility] Work Phone: [phone] Blood lymphocytes/100 leukoc yteson 02-23-2022 Lymphocytes/100 WBC (Bld) 29.8 % 19-41 [facility] Work Phone: [phone] Blood monocytes/100 leukocyt eson 02-23-2022 Monocytes/100 WBC (Bld) 10.1 % 0-10 [facility] Work Phone: [phone] Blood platelet mean volumeon 02-23-2022 Platelet mean volume (Bld) [Entitic vol] 9.9 fL 6.2-12.0 [facility] Work Phone: [phone] Determination of erythrocyte mean corpuscular volume (MCV)on 02-23-2022 MCV (RBC) [Entitic vol] 97.4 fL 81-99 [facility] Work Phone: [phone] Hematocrit Auto (Bld) [Volum e fraction]on 02-23-2022 Hematocrit (Bld) [Volume fraction] 37.6 % 37-47 [facility] Work Phone: [phone] Laboratory - Chemistry and C hemistry - challengeon 02-23-2022 ALP [Catalytic activity/Vol] 76 U/L 45-117 [facility] Work Phone: [phone] ALT [Catalytic activity/Vol] 20 U/L 13-56 [facility] Work Phone: [phone] CO2 [Moles/Vol] 30.0 mmol/L 21.0-32.0 [facility] Work Phone: [phone] Globulin (S) [Mass/Vol] 3.8 g/dL 2.2-4.2 [facility] Work Phone: [phone] Urea nitrogen/Creatinine [Mass ratio] 28.4 mg/mg 10-20 [facility] Work Phone: [phone] Laboratory - Hematology and Cell countson 02-23-2022 Erythrocyte distribution width (RBC) [Entitic vol] 54.6 fL 35.1-43.9 [facility] Work Phone: [phone] Erythrocyte distribution width (RBC) [Ratio] 15.3 % 11.6-14.6 [facility] Work Phone: [phone] Immature granulocytes/100 WBC (Bld) 0.300 % 0.0-0.9 [facility] Work Phone: [phone] Comment on above: IG% - Immature Granu locytes (promyelocytes, myelocytes and metamyelocytes) > 1% indicates that a LEFT SHIFT is Present. MCH (RBC) [Entitic mass] 30.6 pg 27.0-32.0 [facility] Work Phone: [phone] Nucleated RBC/100 WBC (Bld) [Ratio] 0 % 0-5 [facility] Work Phone: [phone] MCHC Auto (RBC) [Mass/Vol]on 02-23-2022 MCHC (RBC) [Mass/Vol] 31.4 g/dL 32-36 [facility] Work Phone: [phone] Panel Informationon 02-23 Estimated GFR (MDRD) Amer 91 mL/min >60 [facility] Work Phone: [phone] Comment on above: GFR Calc Estimated GFR (MDRD) Non-Af Amer 75 mL/min >60 [facility] Work Phone: [phone] Comment on above: Non- GFR Calc Platelets bldon 02-23-2022 Platelets (Bld) [#/Vol] 260 10*3/uL 150-450 [facility] Work Phone: [phone] Serum or plasma albumin rhonda urement (mass/volume)on 02-23-2022 Albumin [Mass/Vol] 3.7 g/dL 3.2-5.0 [facility] Work Phone: [phone] Serum or plasma albumin/glob ulin mass ratioon 02-23-2022 Albumin/Globulin [Mass ratio] 1.0 {ratio} 0.9-2.4 [facility] Work Phone: Serum or plasma calcium rhonda urement (mass/volume)on 02-23-2022 Calcium [Mass/Vol] 9.5 mg/dL 8.5-10.1 [facility] Work Phone: Serum or plasma creatinine m easurement (mass/volume)on 02-23-2022 Creatinine [Mass/Vol] 0.78 mg/dL 0.55-1.02 [facility] Work Phone: Comment on above: The validity of the calculated GFR & GFRAA in patients over 70 years has not been determined. Clinical correlation is essential. Serum or plasma urea nitroge n measurement (mass/volume)on 02-23-2022 Urea nitrogen [Mass/Vol] 22 mg/dL 7-18 [facility] Work Phone: Thin prep Papanicolaou smear with manual screeningon 02-23-2022 Thin prep Papanicolaou smear with manual screening 14 U/L 15-37 [facility] Work Phone: Thin prep Papanicolaou smear with manual screening 4 5-15 [facility] Work Phone: Vital Signs Date Time Vital Sign Value Performing Clinician Faci lity 04-17-2025 13:55-0400 Body temperature 97.8 [degF] Dr. Fitz Walters MD Work Phone: [facility] 04-17-2025 13:55-0400 Body weight 64.[address] Fitz Walters MD Work Phone: [facility] 04-17-2025 13:55-0400 Diastolic blood pressure 70 mm[Hg] Dr. Fitz Walters MD Work Phone: [facility] 04-17-2025 13:55-0400 Heart rate 80 /min Dr. Fitz Walters MD Work Phone: [facility] 04-17-2025 13:55-0400 Respiratory rate 17 /min Dr. Fitz Walters MD Work Phone: [facility] 04-17-2025 13:55-0400 SaO2% (BldA) [Mass fraction] 96 % Dr. Fitz Walters MD Work Phone: [facility] 04-17-2025 13:55-0400 Systolic blood pressure 122 mm[Hg] Dr. Fitz Walters MD Work Phone: [facility] 11-27-2024 13:35-0500 Body height 156.8 cm Sandra Corin MANAGEMENT DEVELOPMENT SPECIALIST.MEDICAL RESEARCH ASSISTANT Work Phone: [facility] 11-27-2024 13:35-0500 Body mass index (BMI) [Ratio] 26.79 kg/m2 Sandra Corin MANAGEMENT DEVELOPMENT SPECIALIST.MEDICAL RESEARCH ASSISTANT Work Phone: [facility] 11-27-2024 13:35-0500 Body weight 65.9 kg Sandra Corin MANAGEMENT DEVELOPMENT SPECIALIST.MEDICAL RESEARCH ASSISTANT Work Phone: [facility] 11-27-2024 13:35-0500 Diastolic blood pressure 62 mm[Hg] Sandra Corin MANAGEMENT DEVELOPMENT SPECIALIST.MEDICAL RESEARCH ASSISTANT Work Phone: [facility] 11-27-2024 13:35-0500 Heart rate 72 /min Sandra Corin MANAGEMENT DEVELOPMENT SPECIALIST.MEDICAL RESEARCH ASSISTANT Work Phone: [facility] 11-27-2024 13:35-0500 SaO2% (BldA) [Mass fraction] 98 % Sandra Corin MANAGEMENT DEVELOPMENT SPECIALIST.MEDICAL RESEARCH ASSISTANT Work Phone: [facility] 11-27-2024 13:35-0500 Systolic blood pressure 110 mm[Hg] Sandra Corin MANAGEMENT DEVELOPMENT SPECIALIST.MEDICAL RESEARCH ASSISTANT Work Phone: [facility] 05-25-2024 14:42-0400 Body mass index (BMI) [Ratio] 27.07 kg/m2 Fitz Walters MD Work Phone: [facility] 05-25-2024 14:42-0400 Body temperature 97.39 [degF] Fitz Walters MD Work Phone: [facility] 05-25-2024 14:42-0400 Body weight 67.13 kg Fitz Walters MD Work Phone: [facility] 05-25-2024 14:42-0400 Diastolic blood pressure 76 mm[Hg] Fitz Walters MD Work Phone: [facility] 05-25-2024 14:42-0400 Heart rate 72 /min Fitz Walters MD Work Phone: [facility] 05-25-2024 14:42-0400 Respiratory rate 20 /min Fitz Walters MD Work Phone: [facility] 05-25-2024 14:42-0400 Systolic blood pressure 126 mm[Hg] Fitz Walters MD Work Phone: [facility] 06-08-2023 13:43-0400 Body height 162.[address] Fitz Walters Work Phone: [facility] 06-08-2023 13:43-0400 Body mass index (BMI) [Ratio] 25.4 kg/m2 Dr. Fitz Walters Work Phone: 6(025)035-601264 [place] [address] 06-08-2023 13:43-0400 Body temperature 97.9 [degF] Dr. Fitz Walters Work Phone: 0(974)419-437064 [place] [address] 06-08-2023 13:43-0400 Body weight 67.[address] Fitz Walters Work Phone: [facility] 06-08-2023 13:43-0400 Diastolic blood pressure 78 mm[Hg] Dr. Fitz Walters Work Phone: [facility] 06-08-2023 13:43-0400 Heart rate 68 /min Dr. Fitz Walters Work Phone: [facility] 06-08-2023 13:43-0400 Respiratory rate 16 /min Dr. Fitz Walters Work Phone: [facility] 06-08-2023 13:43-0400 SaO2% (BldA) [Mass fraction] 99 % Dr. Fitz Walters Work Phone: [facility] 06-08-2023 13:43-0400 Systolic blood pressure 112 mm[Hg] Dr. Fitz Walters Work Phone: [facility] 05-17-2023 14:44-0400 Body weight 66.22 kg Fitz Walters MD Work Phone: [facility] 05-17-2023 14:44-0400 Diastolic blood pressure 68 mm[Hg] Fitz Walters MD Work Phone: [facility] 05-17-2023 14:44-0400 Heart rate 64 /min Fitz Walters MD Work Phone: [facility] 05-17-2023 14:44-0400 Respiratory rate 18 /min Fitz Walters MD Work Phone: [facility] 05-17-2023 14:44-0400 Systolic blood pressure 126 mm[Hg] Fitz Walters MD Work Phone: [facility] 03-08-2023 13:13-0400 Body height 162.[address] Fitz Walters Work Phone: [facility] 03-08-2023 13:13-0400 Body mass index (BMI) [Ratio] 24.9 kg/m2 Dr. Fitz Walters Work Phone: [facility] 03-08-2023 13:13-0400 Body temperature 98 [degF] Dr. Fitz Walters Work Phone: 5(848)492-672464 [place] [address] 03-08-2023 13:13-0400 Body weight 65.[address] Fitz Walters Work Phone: [facility] 03-08-2023 13:13-0400 Diastolic blood pressure 70 mm[Hg] Dr. Fitz Walters Work Phone: 3(866)452-955864 [place] [address] 03-08-2023 13:13-0400 Heart rate 61 /min Dr. Fitz Walters Work Phone: 0(955)955-899464 [place] [address] 03-08-2023 13:13-0400 Respiratory rate 17 /min Dr. Fitz Walters Work Phone: 6(559)357-223664 [place] [address] 03-08-2023 13:13-0400 SaO2% (BldA) [Mass fraction] 99 % Dr. Fitz Walters Work Phone: 8(155)445-697164 [place] [address] 03-08-2023 13:13-0400 Systolic blood pressure 128 mm[Hg] Dr. Fitz Walters Work Phone: 0(640)783-752397 [place] [address] 02-16-2023 15:18-0400 Body mass index (BMI) [Ratio] 24.5 kg/m2 Dr. Fitz Walters Work Phone: 5(641)015-560497 [place] [address] 02-16-2023 15:18-0400 Body temperature 98.2 [degF] Dr. Fitz Walters Work Phone: 3(132)021-784597 [place] [address] 02-16-2023 15:18-0400 Body weight 64.[address] Fitz Walters Work Phone: 5(413)403-068797 [place] [address] 02-16-2023 15:18-0400 Diastolic blood pressure 81 mm[Hg] Dr. Fitz Walters Work Phone: 9(639)823-511897 [place] [address] 02-16-2023 15:18-0400 Heart rate 67 /min Dr. Fitz Walters Work Phone: 5(133)124-056364 [place] [address] 02-16-2023 15:18-0400 Respiratory rate 20 /min Dr. Fitz Walters Work Phone: 7(094)438-041097 [place] [address] 02-16-2023 15:18-0400 SaO2% (BldA) [Mass fraction] 94 % Dr. Fitz Walters Work Phone: 4(593)185-810264 [place] [address] 02-16-2023 15:18-0400 Systolic blood pressure 129 mm[Hg] Dr. Fitz Walters Work Phone: 1(131)424-631397 [place] [address] 02-10-2023 11:54-0400 Body temperature 98.01 [degF] Milagros Sidney MANAGEMENT DEVELOPMENT SPECIALIST.MEDICAL RESEARCH ASSISTANT Work Phone: [facility] 02-10-2023 11:54-0400 Body weight 64.14 kg Milagros Sidney MANAGEMENT DEVELOPMENT SPECIALIST.MEDICAL RESEARCH ASSISTANT Work Phone: [facility] 02-10-2023 11:54-0400 Diastolic blood pressure 64 mm[Hg] Milagros Sidney MANAGEMENT DEVELOPMENT SPECIALIST.MEDICAL RESEARCH ASSISTANT Work Phone: [facility] 02-10-2023 11:54-0400 Heart rate 65 /min Milagros Sidney MANAGEMENT DEVELOPMENT SPECIALIST.MEDICAL RESEARCH ASSISTANT Work Phone: [facility] 02-10-2023 11:54-0400 Respiratory rate 18 /min Milagros Sidney MANAGEMENT DEVELOPMENT SPECIALIST.MEDICAL RESEARCH ASSISTANT Work Phone: [facility] 02-10-2023 11:54-0400 SaO2% (BldA) [Mass fraction] 96 % Milagros Sidney MANAGEMENT DEVELOPMENT SPECIALIST.MEDICAL RESEARCH ASSISTANT Work Phone: [facility] 02-10-2023 11:54-0400 Systolic blood pressure 128 mm[Hg] Milagros Avila MANAGEMENT DEVELOPMENT SPECIALIST.MEDICAL RESEARCH ASSISTANT Work Phone: [facility] 02-02-2023 15:18-0400 Body height 162.[address] Fitz Walters Work Phone: [facility] 02-02-2023 15:18-0400 Body mass index (BMI) [Ratio] 24.7 kg/m2 Dr. Fitz Walters Work Phone: [facility] 02-02-2023 15:18-0400 Body temperature 98 [degF] Dr. Fitz Walters Work Phone: [facility] 02-02-2023 15:18-0400 Body weight 65.[address] Fitz Walters Work Phone: [facility] 02-02-2023 15:18-0400 Diastolic blood pressure 80 mm[Hg] Dr. Fitz Walters Work Phone: [facility] 02-02-2023 15:18-0400 Heart rate 75 /min Dr. Fitz Walters Work Phone: [facility] 02-02-2023 15:18-0400 Respiratory rate 16 /min Dr. Fitz Walters Work Phone: [facility] 02-02-2023 15:18-0400 SaO2% (BldA) [Mass fraction] 98 % Dr. Fitz Walters Work Phone: [facility] 02-02-2023 15:18-0400 Systolic blood pressure 124 mm[Hg] Dr. Fitz Walters Work Phone: [facility] 11-10-2022 13:12-0500 Body height 159.4 cm Sandra Older MANAGEMENT DEVELOPMENT SPECIALIST.MEDICAL RESEARCH ASSISTANT Work Phone: [facility] 11-10-2022 13:12-0500 Body weight 64.41 kg Sandra Older MANAGEMENT DEVELOPMENT SPECIALIST.MEDICAL RESEARCH ASSISTANT Work Phone: [facility] 11-10-2022 13:12-0500 Diastolic blood pressure 79 mm[Hg] Sandra Older MANAGEMENT DEVELOPMENT SPECIALIST.MEDICAL RESEARCH ASSISTANT Work Phone: [facility] 11-10-2022 13:12-0500 Heart rate 81 /min Sandra Older MANAGEMENT DEVELOPMENT SPECIALIST.MEDICAL RESEARCH ASSISTANT Work Phone: [facility] 11-10-2022 13:12-0500 Respiratory rate 18 /min Sandra Older MANAGEMENT DEVELOPMENT SPECIALIST.MEDICAL RESEARCH ASSISTANT Work Phone: [facility] 11-10-2022 13:12-0500 Systolic blood pressure 123 mm[Hg] Sandra Older MANAGEMENT DEVELOPMENT SPECIALIST.MEDICAL RESEARCH ASSISTANT Work Phone: [facility] 07-09-2022 14:02-0400 Body temperature 96.8 [degF] Fitz Walters MD Work Phone: [facility] 07-09-2022 14:02-0400 Body weight 63.96 kg Fitz Walters MD Work Phone: [facility] 07-09-2022 14:02-0400 Diastolic blood pressure 73 mm[Hg] Fitz Walters MD Work Phone: [facility] 07-09-2022 14:02-0400 Heart rate 68 /min Fitz Walters MD Work Phone: [facility] 07-09-2022 14:02-0400 Respiratory rate 20 /min Fitz Walters MD Work Phone: [facility] 07-09-2022 14:02-0400 Systolic blood pressure 118 mm[Hg] Fitz Walters MD Work Phone: [facility] 06-01-2022 11:28-0400 Body height 162.[address] Fitz Walters Work Phone: [facility] Work Phone: 06-01-2022 11:28-0400 Diastolic blood pressure 81 mm[Hg] Dr. Fitz Walters Work Phone: [facility] Work Phone: 06-01-2022 11:28-0400 Respiratory rate 16 /min Dr. Fitz Walters Work Phone: [facility] Work Phone: 06-01-2022 11:28-0400 Systolic blood pressure 130 mm[Hg] Dr. Fitz Walters Work Phone: [facility] Work Phone: 06-01-2022 10:07-0400 Body mass index (BMI) [Ratio] 24.7 kg/m2 Dr. Fitz Walters Work Phone: [facility] Work Phone: 06-01-2022 10:07-0400 Body temperature 98.2 [degF] Dr. Fitz Walters Work Phone: [facility] Work Phone: 06-01-2022 10:07-0400 Body weight 65.[address] Fitz Walters Work Phone: [facility] Work Phone: 06-01-2022 10:07-0400 Heart rate 64 /min Dr. Fitz Walters Work Phone: [facility] Work Phone: 06-01-2022 10:07-0400 SaO2% (BldA) [Mass fraction] 97 % Dr. Fitz Walters Work Phone: [facility] Work Phone: 05-07-2022 13:41-0400 Body temperature 96.91 [degF] Fitz Walters MD Work Phone: [facility] 05-07-2022 13:41-0400 Body weight 65.32 kg Fitz Walters MD Work Phone: [facility] 05-07-2022 13:41-0400 Diastolic blood pressure 58 mm[Hg] Fitz Walters MD Work Phone: [facility] 05-07-2022 13:41-0400 Heart rate 68 /min Fitz Walters MD Work Phone: [facility] 05-07-2022 13:41-0400 Respiratory rate 12 /min Fitz Walters MD Work Phone: [facility] 05-07-2022 13:41-0400 Systolic blood pressure 110 mm[Hg] Fitz Walters MD Work Phone: [facility] Encounters Encounter Date Encounter Type Care Provider Facility Start: 04-17-2025 End: 04-17-[address] Chong Cantu MD [facility] Work Phone: Start: 04-17-2025 End: 04-17-[address] Fitz Walters MD Work Phone: [facility] Work Phone: Start: 04-17-2025 End: 04-17-2025 ambulatory Fitz Walters Facility:[facility] Start: 04-02-2025 End: 04-02-2025 Refill Sandra Sigala APRN.MEDICAL RESEARCH ASSISTANT Work Phone: [facility] [place] Comment on above: Refill Request Start: 02-05-2025 End: 02-05-2025 Refill Fitz Walters MD Work Phone: [facility] [place] Comment on above: Refill Request Start: 01-19-2025 End: 01-19-[address] Fitz Walters MD Work Phone: [facility] Work Phone: Start: 01-19-2025 End: 01-19-[address] Laurence Hinds MD -Laboratory, [place] Work Phone: Start: 01-19-2025 End: 01-19-2025 ambulatory Laurence Hinds Facility:[facility] Start: 12-01-2024 End: 12-01-2024 ambulatory FITZ WALTERS Facility:[facility] Start: 12-01-2024 End: 12-01-2024 Patient encounter procedure Angelina Godwin Work Phone: Podiatry Comment on above: Onychomycosis (Prima ry Dx); Pain in toe of right foot; Pain in toe of left foot; Type 2 diabetes, controlled, with peripheral neuropathy (HCC); Callus of foot Start: 11-27-2024 End: 11-27-2024 ambulatory FITZ WALTERS Facility:[facility] Start: 11-27-2024 End: 11-27-2024 Patient encounter procedure Sandra Sigala APRN.MEDICAL RESEARCH ASSISTANT Work Phone: [facility] [place] Comment on above: Medicare annual well ness visit, subsequent (Primary Dx); Type 2 diabetes, controlled, with peripheral neuropathy (HCC); Essential hypertension; Hyperlipidemia, unspecified hyperlipidemia type; Encounter for immunization Start: 11-22-2024 End: 11-22-2024 ambulatory FITZ WALTERS Facility:[facility] Start: 10-17-2024 End: 10-17-[address] Laurence Hinds MD -Labor[facility], [place] Work Phone: Start: 10-17-2024 End: 10-17-2024 ambulatory [facility] Facility:[facility] Start: 08-02-2024 End: 08-02-2024 ambulatory [facility] Facility:[facility] Start: 05-25-2024 End: 05-25-2024 ambulatory FITZ WALTERS Facility:[facility] Start: 05-25-2024 End: 05-25-2024 Office outpatient visit 15 minutes Fitz Walters MD Work Phone: [facility] [place] Comment on above: Type 2 diabetes, con trolled, with peripheral neuropathy (HCC) (Primary Dx); Essential hypertension; Hyperlipidemia, unspecified hyperlipidemia type; 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) Start: 05-05-2024 End: 05-05-2024 ambulatory [facility] Facility:[facility] Start: 04-17-2024 Refill Fitz ham MD Work Phone: [facility] [place] Comment on above: Refill Request Start: 02-24-2024 Refill Fitz ham MD Work Phone: [facility] [place] Comment on above: Refill Request Start: 02-18-2024 Refill Fitz ham MD Work Phone: [facility] [place] Comment on above: Refill Request Start: 01-20-2024 End: 01-20-2024 ambulatory [facility] Work Phone: Start: 01-20-2024 End: 01-20-2024 Patient encounter procedure [facility] [place] Work Phone: Start: 01-13-2024 End: 01-13-2024 ambulatory FITZ WALTERS Facility:[facility] Start: 01-13-2024 End: 01-13-2024 Patient encounter procedure Angelina Godwin Work Phone: Podiatry Comment on above: Onychomycosis (Prima ry Dx); Pain in toe of right foot; Pain in toe of left foot; Type 2 diabetes, controlled, with peripheral neuropathy (HCC); Callus of foot Start: 01-03-2024 ambulatory Fitz ham MD Work Phone: [facility] [place] Comment on above: Epistaxis Start: 10-14-2023 End: 10-14-2023 Patient encounter procedure [facility] Work Phone: Start: 09-17-2023 End: 09-17-2023 Patient encounter procedure Angelina Godwin Work Phone: Podiatry Comment on above: Onychomycosis (Prima ry Dx); Pain in toe of right foot; Pain in toe of left foot; Type 2 diabetes, controlled, with peripheral neuropathy (HCC) Start: 07-16-2023 End: 07-16-[address] Fitz Walters Work Phone: [facility] Work Phone: Start: 07-16-2023 End: 07-16-[address] Fitz Walters Work Phone: [facility] Work Phone: Start: 06-08-2023 End: 06-08-[address] Fitz Walters Work Phone: [facility] Work Phone: Start: 06-08-2023 End: 06-08-[address] Fitz Walters Work Phone: [facility] Work Phone: Start: 06-08-2023 End: 06-08-[address] Fitz Walters Work Phone: [facility] Work Phone: Start: 05-24-2023 Telephone encounter Fitz stephens MD Work Phone: [facility] [place] Comment on above: Results Start: 05-17-2023 End: 05-17-2023 Patient encounter procedure Fitz Walters MD Work Phone: [facility] [place] Comment on above: Type 2 diabetes, con trolled, with peripheral neuropathy (HCC) (Primary Dx); Essential hypertension; Dysuria; Generalized osteoarthrosis Start: 05-05-2023 Telephone encounter Fitz stephens MD Work Phone: [facility] [place] Comment on above: Orders Start: 04-14-2023 Refill Fitz ham MD Work Phone: [facility] [place] Comment on above: Refill Request Start: 03-15-2023 End: 03-15-[address] Fitz Walters Work Phone: [facility] Work Phone: Start: 03-15-2023 End: 03-15-[address] Fitz Walters Work Phone: [facility] Start: 03-08-2023 End: 03-08-[address] Fitz Walters Work Phone: [facility] Start: 02-16-2023 End: 02-16-[address] Fitz Walters Work Phone: [facility] Start: 02-12-2023 Telephone encounter Lisa [place] APRN.MEDICAL RESEARCH ASSISTANT Work Phone: [facility] Comment on above: Results Start: 02-10-2023 End: 02-10-2023 Patient encounter procedure Milagros Gramajo APRN.MEDICAL RESEARCH ASSISTANT Work Phone: [facility] Comment on above: Urinary frequency (P rimary Dx); Acute cystitis with hematuria Start: 02-09-2023 Telephone encounter Fitz stephens MD Work Phone: [facility] [place] Comment on above: Patient Update Start: 02-03-2023 Refill Fitz ham MD Work Phone: [facility] Comment on above: Refill Request Start: 02-02-2023 End: 02-02-[address] Fitz Walters Work Phone: [facility] Work Phone: Start: 02-02-2023 End: 02-02-[address] Fitz Walters Work Phone: [facility] Start: 02-02-2023 End: 02-02-[address] Fitz Walters Work Phone: [facility] Start: 12-24-2022 End: 12-24-2022 ambulatory [facility] Work Phone: Start: 12-24-2022 End: 12-24-2022 Patient encounter procedure [facility] Start: 11-10-2022 End: 11-10-2022 Patient encounter procedure Sandra Older MANAGEMENT DEVELOPMENT SPECIALIST.MEDICAL RESEARCH ASSISTANT Work Phone: [facility] [place] Comment on above: Medicare annual well ness visit, subsequent (Primary Dx); Encounter for immunization Start: 09-17-2022 Telephone encounter Fitz stephens MD Work Phone: [facility] [place] Comment on above: [facility] requesting records Start: 09-14-2022 Telephone encounter Sandra Older MANAGEMENT DEVELOPMENT SPECIALIST.MEDICAL RESEARCH ASSISTANT Work Phone: [facility] [place] Comment on above: Results Start: 08-28-2022 Telephone encounter Sandra Older MANAGEMENT DEVELOPMENT SPECIALIST.MEDICAL RESEARCH ASSISTANT Work Phone: [facility] [place] Comment on above: Results Start: 08-25-2022 Telephone encounter Fitz stephens MD Work Phone: [facility] [place] Comment on above: Results Start: 08-24-2022 End: 08-24-[address] Fitz Walters Work Phone: [facility] Work Phone: Start: 08-24-2022 End: 08-24-[address] Fitz Walters Work Phone: [facility] Start: 08-10-2022 Orders Only Angelina del angel Work Phone: Podiatry Comment on above: Type 2 diabetes, con trolled, with peripheral neuropathy (HCC) (Primary Dx); Posterior tibial tendon dysfunction (PTTD) of right lower extremity Start: 07-31-2022 End: 07-31-2022 Patient encounter procedure Angelina Godwin Work Phone: Podiatry Comment on above: Onychomycosis (Prima ry Dx); Type 2 diabetes, controlled, with peripheral neuropathy (HCC); Pain in toe of right foot; Pain in toe of left foot; Posterior tibial tendon dysfunction (PTTD) of right lower extremity; Diabetic ulcer of left midfoot associated with type 2 diabetes mellitus, 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); Hammer toes of both feet Start: 07-16-2022 Telephone encounter Fitz stephens MD Work Phone: [facility] [place] Comment on above: urine culture result s Start: 07-09-2022 End: 07-09-2022 Patient encounter procedure Fitz Walters MD Work Phone: [facility] [place] Comment on above: Urge incontinence of urine (Primary Dx); Nocturia; Medication side effects; Dysuria; Need for COVID-19 vaccine Start: 07-08-2022 ambulatory Fitz ham MD Work Phone: [facility] [place] Comment on above: Medication Problem Start: 06-12-2022 End: 06-12-[address] Fitz Walters Work Phone: [facility] Start: 06-05-2022 Telephone encounter Fitz stephens MD Work Phone: [facility] [place] Comment on above: Insurance Authorizat ion Start: 06-03-2022 Refill Fitz ham MD Work Phone: Internal [facility] [place] Comment on above: Refill Request Start: 06-01-2022 Telephone encounter Fitz stephens MD Work Phone: [facility] [place] Comment on above: patient information Start: 06-01-2022 End: 06-01-[address] Fitz Walters Work Phone: [facility] Start: 06-01-2022 End: 06-01-[address] Fitz Walters Work Phone: [facility] Start: 05-27-2022 End: 05-27-2022 Patient encounter procedure [facility] Start: 05-07-2022 End: 05-07-2022 Patient encounter procedure Fitz Walters MD Work Phone: [facility] [place] Comment on above: Type 2 diabetes, con trolled, with peripheral neuropathy (HCC) (Primary Dx); Unsteady gait; Urge incontinence of urine; Nocturia; Hyperkalemia Start: 04-15-2022 Refill Fitz ham MD Work Phone: [facility] [place] Comment on above: Prescription Refills Start: 03-17-2022 Telephone encounter Fitz stephens MD Work Phone: [facility] [place] Comment on above: Opened In Error Start: 03-11-2022 Telephone encounter Sandra Mahoney APRN.MEDICAL RESEARCH ASSISTANT Work Phone: [facility] [place] Comment on above: Patient Question Start: 02-23-2022 End: 02-23-2022 Patient encounter procedure [facility] Procedures Date Procedure Procedure Detail Performing Clinician Start: 11-27-2024 PFIZER-TXCOM COVI D-19 VACCINE AGE 12+ YR (COMIRNATY) Sandra Sigala APRN.CNP Work Phone: Start: 05-25-2024 Hemoglobin A1c/Hemoglobin.total in Blood Fitz Walters MD Work Phone: Start: 05-25-2024 Adult depression scr eening assessment Sandra Sigala MANAGEMENT DEVELOPMENT SPECIALIST.MEDICAL RESEARCH ASSISTANT Work Phone: Start: 05-17-2023 Urnls dip stick/tabl et rgnt auto w/o microscopy Fitz Walters MD Work Phone: Start: 02-10-2023 Urnls dip stick/tabl et rgnt auto w/o microscopy Ashley Dawkins MANAGEMENT DEVELOPMENT SPECIALIST.MEDICAL RESEARCH ASSISTANT Work Phone: Start: 11-10-2022 INFLUENZA SEASONAL QUADRIVALENT HIGH DOSE AGE 65+ Sandra Older MANAGEMENT DEVELOPMENT SPECIALIST.MEDICAL RESEARCH ASSISTANT Work Phone: Start: 11-10-2022 PFIZER-BIONTECH COVI D-19 BIVALENT BOOSTER VACCINE, AGE 12+ YR Sandra Older MANAGEMENT DEVELOPMENT SPECIALIST.MEDICAL RESEARCH ASSISTANT Work Phone: Start: 07-09-2022 PFIZER-BIONTECH COVI D-19 VACCINE, AGE 12+ YR (REYES TOP) Fitz Walters MD Work Phone: Start: 07-09-2022 Urnls dip stick/tabl et rgnt auto w/o microscopy Fitz Walters MD Work Phone: Start: 06-12-2022 MRI of brain with contrast Dr. Fitz Walters Work Phone: Plan of Treatment Date Care Activity Detail Author Start: 02-06-2026 Glaucoma screening Dilated Retinal E xam [facility] Start: 11-28-2025 End: 11-28-2025 Patient encounter procedure 11/28/2025 1:00 PM EST Office Visit [facility] [place] [address] [place], [place] [id number] Sandra Sigala M, MANAGEMENT DEVELOPMENT SPECIALIST.MEDICAL RESEARCH ASSISTANT [address] [facility] [place] [id number] Medicare Wellness Exam [facility] [place] Comment on above: Medicare Wellness Ex am Start: 11-27-2025 RSV Vaccine (1 - 1-d ose 75+ series) RSV Vaccine (1 - 1-dose 75+ series) [facility] Comment on above: Postponed from 11/19 (Declined at this time) Start: 11-22-2025 Hepatitis B surface antibody level LDL Cholesterol [facility] Start: 09-12-2025 Urine microalbumin profile [facility] Comment on above: Postponed from 09/12 (Postponed To Appropriate Date) Start: 05-27-2025 Covid-19 Vaccine (7 - Pfizer risk ) Covid-19 Vaccine (7 - Pfizer risk ) [facility] Start: 05-27-2025 End: 08-26-2025 Hemoglobin A1c in Blood HEMOGLOBIN A1C Lab Routine Type 2 diabetes, controlled, with peripheral neuropathy (HCC) Expected: 05/27/2025 (Approximate), Expires: 08/26/2025 [facility] Comment on above: Expected: 05/27/2025 (Approximate), Expires: 08/26/2025 Start: 05-27-2025 End: 08-26-2025 Microalbumin/Creatinine [Mass Ratio] in Urine ALBUMIN/CREATININE RATIO, URINE Lab Routine Type 2 diabetes, controlled, with peripheral neuropathy (HCC) Expected: 05/27/2025 (Approximate), Expires: 08/26/2025 [facility] Work Phone: Comment on above: Expected: 05/27/2025 (Approximate), Expires: 08/26/2025 Start: 05-25-2025 Anxiety Screening Anxiety Screening [facility] Start: 05-25-2025 Depression Screening Depression Scre [facility] Start: 05-24-2025 End: 05-24-2025 Patient encounter procedure 05/24/2025 3:20 PM EDT Office Visit [facility] [address] [place], [place] [id number] Fitz Walters MD [address] [place], [place] [address] 6 month follow-up [facility] Comment on above: 6 month follow-up Start: 05-22-2025 Hemoglobin A1c measurement HbA1C [facility] Start: 03-02-2025 End: 03-02-2025 Patient encounter procedure Podiatry Comment on above: 3 month follow up na nm care Start: 02-14-2025 Glaucoma screening Dilated Retinal E xam [facility] Start: 01-22-2025 Covid-19 Vaccine ( season) Covid-19 Vaccine () [facility] Start: 01-12-2025 Diabetic foot examination Diabetic F oot Exam [facility] Start: 12-01-2024 End: 12-01-2024 Patient encounter procedure 12/01/2024 1:40 PM EST Office Visit Podiatry [address] [place] [address] Angelina Godwin [address] [address] [facility] F[facility]U Podiatry Comment on above: NAILCARE F/U Start: 11-27-2024 End: 11-27-2024 Patient encounter procedure 11/27/2024 2:00 PM EST Office Visit [facility] [address] [place], [place] [id number] Sandra Sigala, MANAGEMENT DEVELOPMENT SPECIALIST.MEDICAL RESEARCH ASSISTANT [address] [place] [address] Annual Medicare Wellness/6 month follow-up [facility] [place] Comment on above: Annual Medicare Well ness/6 month follow-up Start: 11-25-2024 End: 02-24-2025 Basic metabolic 2000 panel - Serum or Plasma BASIC METABOLIC PANEL Lab Routine Type 2 diabetes, controlled, with peripheral neuropathy (HCC) Expected: 11/25/2024, Expires: 02/24/2025 [facility] Comment on above: Expected: 11/25/2024 , Expires: 02/24/2025 Start: 11-25-2024 End: 02-24-2025 Hemoglobin A1c in Blood HEMOGLOBIN A1C Lab Routine Type 2 diabetes, controlled, with peripheral neuropathy (HCC) Expected: 11/25/2024, Expires: 02/24/2025 [facility] Comment on above: Expected: 11/25/2024 , Expires: 02/24/2025 Start: 11-25-2024 Hemoglobin A1c measurement HbA1C [facility] Start: 11-25-2024 End: 02-24-2025 Lipid 1996 panel - Serum or Plasma LIPID PANEL BASIC Lab Routine Hyperlipidemia, unspecified hyperlipidemia type Expected: 11/25/2024, Expires: 02/24/2025 [facility] Comment on above: Expected: 11/25/2024 , Expires: 02/24/2025 Start: 11-23-2024 Covid-19 Vaccine () Covid-19 Vaccine () [facility] Comment on above: Postponed from 11/16 (Declined at this time) Start: 11-23-2024 RSV Vaccine (1 - 1-d ose 60+ series) RSV Vaccine (1 - 1-dose 60+ series) [facility] Comment on above: Postponed from 11/19 (Declined at this time) Start: 2024 Hepatitis B surface antibody level LDL Cholesterol [facility] Start: 09-17-2024 3 comp foot exam completed Diabetic Foot Exam [facility] Start: 09-17-2024 Diabetic foot examination Diabetic F oot Exam [facility] Start: 07-16-2024 Influenza vaccination Influenza Vacc ine (#1) [facility] Start: 05-25-2024 End: 05-25-2024 Patient encounter procedure 05/25/2024 2:40 PM EDT Office Visit [facility] [address] [place], [place] [id number] Fitz Walters MD [address] [place], [place] [phone] 6 month follow-up [facility] Comment on above: 6 month follow-up Start: 05-25-2024 End: 08-24-2024 Microalbumin/Creatinine [Mass Ratio] in Urine ALBUMIN/CREATININE RATIO, URINE Lab Routine Type 2 diabetes, controlled, with peripheral neuropathy (HCC) Expected: 05/25/2024, Expires: 08/24/2024 [facility] Work Phone: Comment on above: Expected: 05/25/2024 , Expires: 08/24/2024 Start: 05-19-2024 Hemoglobin A1c measurement HbA1C [facility] Start: 04-28-2024 End: 04-28-2024 Patient encounter procedure 04/28/2024 1:00 PM EDT Office Visit Podiatry [address] [place] [address] Angelina Godwin [address] [place] [address] 3 MONTH FOLLOW UP [facility] Podiatry Comment on above: [address] [facility] Start: 01-20-2024 Glaucoma screening Dilated Retinal E xam [facility] Start: 01-20-2024 Hepatitis C antibody , confirmatory test DILATED RETINAL EXAM [facility] Start: 11-17-2023 End: 01-17-2024 ALBUMIN/CREAT RATIO RND UR ALBUMIN/CREAT RATIO RND UR Lab Routine Type 2 diabetes, controlled, with peripheral neuropathy (HCC) Expected: 11/17/2023, Expires: 01/17/2024 [facility] Work Phone: Comment on above: Expected: 11/17/2023 , Expires: 01/17/2024 Start: 11-17-2023 End: 01-17-2024 Comprehensive metabolic 2000 panel - Serum or Plasma COMP METABOLIC PANEL Lab Routine Type 2 diabetes, controlled, with peripheral neuropathy (HCC) Expected: 11/17/2023, Expires: 01/17/2024 [facility] Work Phone: Comment on above: Expected: 11/17/2023 , Expires: 01/17/2024 Start: 11-17-2023 End: 01-17-2024 Hemoglobin A1c in Blood HGB A1C Lab Routine Type 2 diabetes, controlled, with peripheral neuropathy (HCC) Expected: 11/17/2023, Expires: 01/17/2024 [facility] Work Phone: Comment on above: Expected: 11/17/2023 , Expires: 01/17/2024 Start: 11-17-2023 End: 01-17-2024 Lipid 1996 panel - Serum or Plasma LIPID PANEL BASIC Lab Routine Type 2 diabetes, controlled, with peripheral neuropathy (HCC) Expected: 11/17/2023, Expires: 01/17/2024 [facility] Work Phone: Comment on above: Expected: 11/17/2023 , Expires: 01/17/2024 Start: 11-15-2023 Behavioral Health Screening Behavioral Health Screening [facility] Start: 11-13-2023 Hemoglobin A1c/Hemoglobin.total in Blood HBA1C [facility] Start: 10-29-2023 Hepatitis B screening URINE ALBUMIN:CREATININE RATIO [facility] Start: 10-29-2023 Hepatitis B surface antibody level LDL CHOLESTEROL [facility] Start: 07-29-2023 3 comp foot exam completed DIABETIC FOOT EXAM [facility] Start: 07-16-2023 Covid-19 Vaccine () Covid-19 Vaccine () [facility] Start: 07-16-2023 Influenza vaccination C [facility] Start: 05-21-2023 Hepatitis C antibody , confirmatory test DILATED RETINAL EXAM [facility] Start: 05-05-2023 End: 07-05-2023 Hemoglobin A1c in Blood HGB A1C Lab Routine Type 2 diabetes, controlled, with peripheral neuropathy (HCC) Expected: 05/05/2023, Expires: 07/05/2023 [facility] Work Phone: Comment on above: Expected: 05/05/2023 , Expires: 07/05/2023 Start: 04-29-2023 Hemoglobin A1c/Hemoglobin.total in Blood HBA1C [facility] Start: 11-15-2022 ADVANCE DIRECTIVE DISCUSSION ADVANCE DIRECTIVE DISCUSSION [facility] Start: 11-15-2022 DEPRESSION ASSESSMENT DEPRESSION ASS ESSMENT [facility] Start: 11-06-2022 End: 01-06-2023 ALBUMIN/CREAT RATIO RND UR ALBUMIN/CREAT RATIO RND UR Lab Routine Type 2 diabetes, controlled, with peripheral neuropathy (HCC) Expected: 11/06/2022, Expires: 01/06/2023 [facility] Work Phone: Comment on above: Expected: 11/06/2022 , Expires: 01/06/2023 Start: 11-06-2022 End: 01-06-2023 Comprehensive metabolic 2000 panel - Serum or Plasma COMP METABOLIC PANEL Lab Routine Type 2 diabetes, controlled, with peripheral neuropathy (HCC) Expected: 11/06/2022, Expires: 01/06/2023 [facility] Work Phone: Comment on above: Expected: 11/06/2022 , Expires: 01/06/2023 Start: 11-06-2022 End: 01-06-2023 Hemoglobin A1c in Blood HGB A1C Lab Routine Type 2 diabetes, controlled, with peripheral neuropathy (HCC) Expected: 11/06/2022, Expires: 01/06/2023 [facility] Work Phone: Comment on above: Expected: 11/06/2022 , Expires: 01/06/2023 Start: 11-06-2022 End: 01-06-2023 Lipid 1996 panel - Serum or Plasma LIPID PANEL BASIC Lab Routine Type 2 diabetes, controlled, with peripheral neuropathy (HCC) Expected: 11/06/2022, Expires: 01/06/2023 [facility] Work Phone: Comment on above: Expected: 11/06/2022 , Expires: 01/06/2023 Start: 10-31-2022 3 comp foot exam completed DIABETIC FOOT EXAM [facility] Start: 10-30-2022 Hemoglobin A1c/Hemoglobin.total in Blood HBA1C [facility] Start: 10-28-2022 Hepatitis B screening URINE ALBUMIN:CREATININE RATIO [facility] Start: 10-28-2022 Hepatitis B surface antibody level LDL CHOLESTEROL [facility] Start: 10-01-2022 COVID-19 VACCINE (4 - Booster for Pfizer series) COVID-19 VACCINE (4 - Booster for Pfizer series) [facility] Start: 09-03-2022 COVID-19 VACCINE (4 - Booster for Pfizer series) COVID-19 VACCINE (4 - Booster for Pfizer series) [facility] Start: 08-28-2022 End: 10-28-2022 25-hydroxyvitamin D3 [Mass/volume] in Serum or Plasma VITAMIN D 25 HYDROXY Lab Routine Hypercalcemia Expected: 08/28/2022, Expires: 10/28/2022 [facility] Work Phone: Comment on above: Expected: 08/28/2022 , Expires: 10/28/2022 Start: 08-28-2022 End: 10-28-2022 Calcium.ionized [Moles/volume] in Blood CALCIUM IONIZED BLOOD Lab Routine Hypercalcemia Expected: 08/28/2022, Expires: 10/28/2022 [facility] Work Phone: Comment on above: Expected: 08/28/2022 , Expires: 10/28/2022 Start: 08-28-2022 End: 10-28-2022 Parathyrin.intact [Mass/volume] in Serum or Plasma PTH INTACT BLD Lab Routine Hypercalcemia Expected: 08/28/2022, Expires: 10/28/2022 [facility] Work Phone: Comment on above: Expected: 08/28/2022 , Expires: 10/28/2022 Start: 08-25-2022 End: 10-25-2022 Calcium.ionized [Moles/volume] in Blood CALCIUM IONIZED BLOOD Lab Routine Hypercalcemia Expected: 08/25/2022, Expires: 10/25/2022 [facility] Work Phone: Comment on above: Expected: 08/25/2022 , Expires: 10/25/2022 Start: 08-25-2022 End: 10-25-2022 Parathyrin.intact [Mass/volume] in Serum or Plasma PTH INTACT BLD Lab Routine Hypercalcemia Expected: 08/25/2022, Expires: 10/25/2022 [facility] Work Phone: Comment on above: Expected: 08/25/2022 , Expires: 10/25/2022 Start: 07-16-2022 Influenza vaccination INFLUENZA (#1) [facility] Start: 07-01-2022 Hepatitis C antibody , confirmatory test DILATED RETINAL EXAM [facility] Start: 06-01-2022 Measurement of substance [facility] Work Phone: Start: 06-01-2022 Thiamine measurement [facility] Work Phone: Start: 06-01-2022 Vitamin D, 1,25-dihy droxy measurement [facility] Work Phone: Start: 04-28-2022 Hemoglobin A1c/Hemoglobin.total in Blood HBA1C [facility] Start: 11-15-2021 ADVANCE DIRECTIVE DISCUSSION ADVANCE DIRECTIVE DISCUSSION [facility] Start: 11-15-2021 DEPRESSION ASSESSMENT DEPRESSION ASS ESSMENT [facility] Start: 04-24-2021 COVID-19 VACCINE (3 - Pfizer risk 4-dose series) [facility] Start: 04-24-2021 COVID-19 VACCINE (3 - Pfizer risk series) COVID-19 VACCINE (3 - Pfizer risk series) [facility] Start: 1995 Hepatitis B Vaccine (1 of 3 - Risk 3-dose series) Hepatitis B Vaccine (1 of 3 - Risk 3-dose series) [facility] Start: 1995 RSV Vaccine (1 - 1-d ose 60+ series) RSV Vaccine (1 - 1-dose 60+ series) [facility] Alanine aminotransfe rase [Enzymatic activity/volume] in Serum or Plasma [facility] Albumin [Mass/volume ] in Serum or Plasma [facility] Alkaline phosphatase [Enzymatic activity/volume] in Serum or Plasma [facility] Anion gap in Serum o r Plasma [facility] Bacteria identified in Urine by Culture URINE CULTURE Microbiology Routine Dysuria 07/09/2022 4:03 PM EDT [facility] Work Phone: Bacteria identified in Urine by Culture URINE CULTURE Microbiology Routine Urinary frequency Ordered: 02/10/2023 [facility] Work Phone: Comment on above: Ordered: 02/10/2023 Bacteria identified in Urine by Culture URINE CULTURE Microbiology Routine Dysuria 05/17/2023 3:39 PM EDT [facility] Work Phone: Bilirubin, total measurement [facility] BUN/Creatinine ratio [facility] Calcium [Mass/volume ] in Serum or Plasma [facility] Carbon dioxide, tota l [Moles/volume] in Central venous blood [facility] Creatinine [Mass/vol ume] in Serum or Plasma [facility] Erythrocyte mean corpuscular volume determination [facility] Glucose [Mass/volume ] in Serum or Plasma [facility] Hematocrit [Volume Fraction] of Blood [facility] Hemoglobin [Mass/vol ume] in Blood [facility] [place] and lambda lig ht chains [facility] Work Phone: Leukocytes [#/volume ] in Blood [facility] Mean corpuscular hemoglobin concentration determination [facility] Mean corpuscular hemoglobin determination [facility] Measurement of renal function [facility] Measurement of substance [facility] Work Phone: MR Brain WO and W co ntrast IV [facility] Work Phone: Neutrophil count [facility] Neutrophil percent differential count [facility] Platelets [#/volume] in Blood [facility] Potassium measurement [facility] Red blood cell count [facility] Red cell distributio n width determination [facility] Serum chloride measurement [facility] Sodium measurement [facility] Thiamine measurement [facility] Work Phone: Total protein measurement [facility] Urea nitrogen [Mass/volume] in Serum or Plasma [facility] Vitamin D, 1,25-dihy droxy measurement [facility] Work Phone: [facility] Immunizations Immunization Date Immunization Notes Care Provider [facility] 11-27-2024 COVID-19 vaccine, ag e 12+ yr (PFIZER-BIONTECH COMIRNATY) Sandra Sigala MANAGEMENT DEVELOPMENT SPECIALIST.MEDICAL RESEARCH ASSISTANT Work Phone: [facility] 11-27-2024 influenza, high dose seasonal, preservative-free Sandra Sigala MANAGEMENT DEVELOPMENT SPECIALIST.MEDICAL RESEARCH ASSISTANT Work Phone: [facility] 09-21-2023 COVID-19 vaccine, ag e 12+ yr, bivalent (PFIZER-BIONTECH) Fitz Walters MD Work Phone: [facility] Work Phone: 09-21-2023 influenza, high dose seasonal, preservative-free Fitz Walters MD Work Phone: [facility] Work Phone: 09-21-2023 influenza virus vaccine, unspecified formulation Fitz Walters MD Work Phone: [facility] 11-10-2022 COVID-19 booster vaccine, age 12+ yr, bivalent (PFIZER-BIONTECH) Sandra Older MANAGEMENT DEVELOPMENT SPECIALIST.MEDICAL RESEARCH ASSISTANT Work Phone: [facility] 11-10-2022 influenza, high-dose , quadrivalent vaccine (FLUZONE HIGH DOSE QUADRIVALENT) Sandra Older MANAGEMENT DEVELOPMENT SPECIALIST.MEDICAL RESEARCH ASSISTANT Work Phone: [facility] 11-10-2022 influenza virus vaccine, unspecified formulation Angelina Arnoldmer Work Phone: [facility] 07-09-2022 COVID-19 vaccine, ag e 12+ yr (PFIZER-BIONTECH - REYES TOP) Fitz Walters MD Work Phone: [facility] Work Phone: 09-29-2021 influenza, high-dose , quadrivalent vaccine (FLUZONE HIGH DOSE QUADRIVALENT) Sandra Older MANAGEMENT DEVELOPMENT SPECIALIST.MEDICAL RESEARCH ASSISTANT Work Phone: [facility] Work Phone: 07-31-2020 influenza, high-dose , quadrivalent vaccine (FLUZONE HIGH DOSE QUADRIVALENT) Sandra Older MANAGEMENT DEVELOPMENT SPECIALIST.MEDICAL RESEARCH ASSISTANT Work Phone: [facility] Work Phone: 06-29-2020 zoster vaccine recombinant Sandra Older MANAGEMENT DEVELOPMENT SPECIALIST.MEDICAL RESEARCH ASSISTANT Work Phone: [facility] Work Phone: 09-25-2019 zoster vaccine recombinant Sandra Older MANAGEMENT DEVELOPMENT SPECIALIST.MEDICAL RESEARCH ASSISTANT Work Phone: [facility] Work Phone: 09-13-2019 influenza, high dose seasonal, preservative-free Sandra Older MANAGEMENT DEVELOPMENT SPECIALIST.MEDICAL RESEARCH ASSISTANT Work Phone: [facility] Work Phone: 09-13-2019 pneumococcal polysaccharide vaccine, 23 valent Sandra Older MANAGEMENT DEVELOPMENT SPECIALIST.MEDICAL RESEARCH ASSISTANT Work Phone: [facility] Work Phone: 09-08-2018 influenza, high dose seasonal, preservative-free Sandra Older MANAGEMENT DEVELOPMENT SPECIALIST.MEDICAL RESEARCH ASSISTANT Work Phone: [facility] 10-28-2017 influenza, seasonal, injectable Sandra Older MANAGEMENT DEVELOPMENT SPECIALIST.MEDICAL RESEARCH ASSISTANT Work Phone: [facility] Work Phone: 10-20-2016 influenza, high dose seasonal, preservative-free Sandra Older MANAGEMENT DEVELOPMENT SPECIALIST.MEDICAL RESEARCH ASSISTANT Work Phone: [facility] 11-02-2015 pneumococcal conjuga te vaccine, 13 valent Sandra Older MANAGEMENT DEVELOPMENT SPECIALIST.MEDICAL RESEARCH ASSISTANT Work Phone: [facility] Work Phone: 10-08-2015 zoster vaccine, live Sandra Old er MANAGEMENT DEVELOPMENT SPECIALIST.MEDICAL RESEARCH ASSISTANT Work Phone: [facility] 09-11-2015 influenza, high dose seasonal, preservative-free Sandra Older MANAGEMENT DEVELOPMENT SPECIALIST.MEDICAL RESEARCH ASSISTANT Work Phone: [facility] 09-11-2015 tetanus and diphther ia toxoids, adsorbed, preservative free, for adult use (5 Lf of tetanus toxoid and 2 Lf of diphtheria toxoid) Sandra Older MANAGEMENT DEVELOPMENT SPECIALIST.MEDICAL RESEARCH ASSISTANT Work Phone: [facility] 09-04-2014 influenza, seasonal, injectable Sandra Older MANAGEMENT DEVELOPMENT SPECIALIST.MEDICAL RESEARCH ASSISTANT Work Phone: [facility] 11-01-2013 influenza virus vaccine, unspecified formulation Sandra Older MANAGEMENT DEVELOPMENT SPECIALIST.MEDICAL RESEARCH ASSISTANT Work Phone: [facility] 10-28-2012 influenza virus vaccine, unspecified formulation Sandra Older MANAGEMENT DEVELOPMENT SPECIALIST.MEDICAL RESEARCH ASSISTANT Work Phone: [facility] Work Phone: 10-06-2011 influenza virus vaccine, unspecified formulation Sandra Older MANAGEMENT DEVELOPMENT SPECIALIST.MEDICAL RESEARCH ASSISTANT Work Phone: [facility] Work Phone: 03-31-2011 tuberculin skin test ; purified protein derivative solution, intradermal Sandra Corin MANAGEMENT DEVELOPMENT SPECIALIST.MEDICAL RESEARCH ASSISTANT Work Phone: [facility] 09-25-2010 influenza virus vaccine, unspecified formulation Sandra Older MANAGEMENT DEVELOPMENT SPECIALIST.MEDICAL RESEARCH ASSISTANT Work Phone: [facility] Work Phone: 07-22-2010 tuberculin skin test ; purified protein derivative solution, intradermal Sandra Corin MANAGEMENT DEVELOPMENT SPECIALIST.MEDICAL RESEARCH ASSISTANT Work Phone: [facility] Work Phone: 10-08-2009 influenza virus vaccine, unspecified formulation Sandra Older MANAGEMENT DEVELOPMENT SPECIALIST.MEDICAL RESEARCH ASSISTANT Work Phone: [facility] Work Phone: 09-20-2007 influenza virus vaccine, unspecified formulation Sandra Older MANAGEMENT DEVELOPMENT SPECIALIST.MEDICAL RESEARCH ASSISTANT Work Phone: [facility] Work Phone: 09-08-2005 influenza virus vaccine, unspecified formulation Sandra Older MANAGEMENT DEVELOPMENT SPECIALIST.MEDICAL RESEARCH ASSISTANT Work Phone: [facility] Work Phone: Payers Date Payer Category Payer Self-pay [id number] 2006 Medicare [employer] [facility]ICARE [facility] [place] [id number] 2006-Present [phone] [address] [place] [address] [facility] [place] [id number] 2006 Medicare [employer]AN MEDICARE [facility] [place] [id number] 2006-Present [phone] [address] [place] [address] [facility] [place] [id number] 2006 Medicare (Managed Care) THP SECU RECARE [facility] [place] [facility] [place] Address: [address] [place] [address] [id number] 2006 Medicare [id number] Unknown [id number] Unknown [id number] Unknown [id number] Unknown [id number] Unknown [id number] Unknown [id number] Social History Date Type Detail Facility Start: 05-11-2013 End: 03-08-2023 Tobacco smoking status NHIS Ex-smoker [facility] Work Phone: Start: 09-02-1975 End: 09-02-1990 History of tobacco use Current smoker [facility] Work Phone: Start: 01-29-2022 End: 11-27-2024 Alcohol intake Current non-drinker of alcohol (finding) [facility] Start: 05-11-2013 History SDOH Alcohol Comment Wine on few occasions a year. [facility] Start: 1935 Sex Assigned At Female [facility] Start: 04-27-2022 End: 07-31-2022 Exposure to SARS-CoV-2 (event) Not sure [facility] Work Phone: Start: 06-01-2022 End: 03-08-2023 Tobacco smoking status GAIS Unknown if ever smoked [facility] Start: 09-02-1975 End: 09-02-1990 History of tobacco use Cigarette Smoker [facility] Work Phone: Start: 05-11-2013 End: 05-17-2023 Cigarettes smoked current (pack per day) - Reported 1 [facility] Work Phone: Start: 05-11-2013 End: 11-27-2024 Tobacco use and exposure Smokeless tobacco non-user [facility] Work Phone: Start: 05-17-2023 End: 11-27-2024 Tobacco use panel [facility] Work Phone: Adult Depression Screening Assessment 0 [facility] Work Phone: Start: 07-08-2020 Gender identity Identifies as female gender (finding) [facility] Start: 07-08-2020 Sexual orientation Heterosexual (fin ding) [facility] How often to you hav e a drink containing alcohol? Never [facility] Work Phone: Start: 12-01-2024 Alcoholic beverage intake Ex-drinker (finding) [facility] Start: 02-01-2025 Sex Female (finding) [facility] Equipment Procedure Code Equipment Code Equipment Origin al Text Equipment Identifier Dates [id number], [id number] Start: 10-31-2021 Comment on above: Test blood sugar onc e daily. Dx: E11.42. Insulin: No. Test blood sugar(s) 1 times daily. Dx: Other DM Code E11.42 , Insulin: No Functional Status Date Assessment Result Facility 06-05-2015 Are you deaf, or do you have serious difficulty hearing No 06/05/2015 2:35 PM Valerie cMkinney RN [facility] 06-05-2015 Are you blind, or do you have serious difficulty seeing, even when wearing glasses No 06/05/2015 2:35 PM Valerie Mckinney RN No [facility] 06-05-2015 Do you have serious difficulty walking or climbing stairs No 06/05/2015 2:35 PM Valerie Mckinney RN No [facility] 06-05-2015 Do you have difficul ty dressing or bathing No 06/05/2015 2:35 PM Valerie Mckinney RN No [facility] 06-05-2015 Because of a physica l, mental, or emotional condition, do you have difficulty doing errands alone such as visiting a physician's office or shopping No 06/05/2015 2:35 PM Valerie Mckinney RN No [facility] Mental Status Date Assessment Result Facility 06-05-2015 Because of a physica l, mental, or emotional condition, do you have serious difficulty concentrating, remembering, or making decisions No 06/05/2015 2:35 PM EDT Valerie Godwin RN No [facility] Clinical Notes 03-12-2016 to 04-17-2025 Note Date & Type Note Facility 04-17-2025 Evaluation note Diagnosis Onset Date Resolution Abnormality of gait and mobility chronic April 17, 2025 1:52pm Mild cognitive impairment chronic April 17, 2025 1:52pm Polyneuropathy chronic April 17, 2025 1:52pm Urinary frequency chronic April 1:52pm [facility] Work Phone: [phone] 549-440905-19-2025 Telephone encounter Note* Telephone Encounter - Alee Brown LPN - 04/02/2025 12:37 PM EDT Patient notified, she has refills remaining for Atorvastatin (Lipitor), written 01/16/2025 at [facility]. Alee Brown LPN [facility]05-19-2025 Miscellaneous Notes* Telephone Encounter - Alee Brown LPN - 04/02/2025 12:37 PM EDT Patient notified, she has refills remaining for Atorvastatin (Lipitor), written 01/16/2025 at [facility]. Alee Brown LPN documented [facility] Telephone encounter Note * Telephone Encounter - Yany Bush - 02/05/2025 9:14 AM EDT Prescription Refill Information The patient has been identified by name and date of : Yes Caregiver verified no other encounters exist for this prescription request: Yes Caregiver confirmed with patient/requestor that no other refills are due, in the near future, with this provider at this time: Yes The last office visit in the department: 11/27/24 Does the patient have a future office visit with this provider/department: Yes Requested Prescriptions Pending Prescriptions Disp Refills atorvastatin (LIPITOR) 10 mg tablet 90 tablet 3 Sig: Take 1 tablet by mouth once daily. metFORMIN (GLUCOPHAGE) 500 mg tablet 180 tablet 3 Sig: Take 1 tablet by mouth two times a day with meals. Yany Segovia [facility] February 05, 2025 9:14 AM [facility]03-24-2025 Miscellaneous Notes* Telephone Encounter - [place] Yany Matamoros - 02/05/2025 9:14 AM EDT Prescription Refill Information The patient has been identified by name and date of : Yes Caregiver verified no other encounters exist for this prescription request: Yes Caregiver confirmed with patient/requestor that no other refills are due, in the near future, with this provider at this time: Yes The last office visit in the department: 11/27/24 Does the patient have a future office visit with this provider/department: Yes Requested Prescriptions Pending Prescriptions Disp Refills atorvastatin (LIPITOR) 10 mg tablet 90 tablet 3 Sig: Take 1 tablet by mouth once daily. metFORMIN (GLUCOPHAGE) 500 mg tablet 180 tablet 3 Sig: Take 1 tablet by mouth two times a day with meals. Yany Segovia [facility] February 05, 2025 9:14 AM documented in this encounterRiver[facility] Institute01-17-2025 NoteHNO ID: [id number] Author: ANGELINA GODWIN, ? Service: ? Author Type: Physician Type: Progress Notes Filed: 12/01/2024 13:47 Note Text: Last saw pcp: 11/27/24 Subjective: Patient presents to clinic c/o painful toenails. They state that the nails are especially painful with shoe gear and pressure. Patient states that nails 1-5 b/l are painful. Patient admits to being diabetic. No other pedal complaints at this time. Patient states no change in medications or medical history since last visit. Objective: Patient presents to clinic ambulating in clogs Vasc: DP and PT pulses are nonpalpable bilateral. CFT is less than 5 seconds bilateral. Skin temperature is warm to cool proximal to distal bilateral. There is no edema or varicosities noted. Neuro: Protective sensation is intact to the foot and toes when tested with the 5.07 SWM bilateral. Vibratory sensation is absent at the hallux IPJ bilateral. The hallux is downgoing bilateral. Derm: Nails 1-5 b/l are painful, discolored-yellow, thick, crumbly, dystrophic and with subungal debris. Skin is of normal turgor, texture and hair growth is present bilateral. There are callus to left medial instep and left 5th toe. No ulcerations, scars, verruca or other lesions noted. Ortho: Muscle strength is 5/5 for all pedal groups tested. Ankle joint DF is decreased with the knee extended with no pain or crepitus noted. 1st MPJ ROM is decreased bilateral. Hammertoes are presetn 2-5 b/l. Flatfoot is noted b/l L>R Assessment: (B35.1) Onychomycosis (primary encounter diagnosis) (M79.674) Pain in toe of right foot (M79.675) Pain in toe of left foot (E11.42) Type 2 diabetes, controlled, with peripheral neuropathy (HCC) (L84) Callus of foot Plan: Patient was seen and evaluated. Nails 1-5 bilateral were debrided in length and thickness. Callus reduced with dremmel to left 5th toe and left medial instep Patient was instructed on the continued importance of diabetic foot care along with proper diet and keeping their blood sugar under control to prevent complications. Patient recommended to wear good supportive shoes, avoid barefoot walking and to inspect her feet for any open sores. 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 Angelina Godwin [facility]01-17-2025 History of Present illness Narrative* Angelina Godwin - 12/01/2024 1:31 PM EST Last saw pcp: 11/27/24 Subjective: Patient presents to clinic c/o painful toenails. They state that the nails are especially painful with shoe gear and pressure. Patient states that nails 1-5 b/l are painful. Patient admits to being diabetic. No other pedal complaints at this time. Patient states no change in medications or medical history since last visit. Objective: Patient presents to clinic ambulating in clogs Vasc: DP and PT pulses are nonpalpable bilateral. CFT is less than 5 seconds bilateral. Skin temperature is warm to cool proximal to distal bilateral. There is no edema or varicosities noted. Neuro: Protective sensation is intact to the foot and toes when tested with the 5.07 SWM bilateral.Vibratory sensation is absent at the hallux IPJ bilateral. The hallux is downgoing bilateral. Derm: Nails 1-5 b/l are painful, discolored-yellow, thick, crumbly, dystrophic and with subungal debris. Skin is of normal turgor, texture and hair growth is present bilateral. There are callus to left medial instep and left 5th toe. No ulcerations, scars, verruca or other lesions noted. Ortho: Muscle strength is 5/5 for all pedal groups tested. Ankle joint DF is decreased with the knee extended with no pain or crepitus noted. 1st MPJ ROM is decreased bilateral. Hammertoes are presetn 2-5 b/l. Flatfoot is noted b/l L>R Assessment: (B35.1) Onychomycosis (primary encounter diagnosis) (M79.674) Pain in toe of right foot (M79.675) Pain in toe of left foot (E11.42) Type 2 diabetes, controlled, with peripheral neuropathy (HCC) (L84) Callus of foot Plan: Patient was seen and evaluated. Nails 1-5 bilateral were debrided in length and thickness. Callus reduced with dremmel to left 5th toe and left medial instep Patient was instructed on the continued importance of diabetic foot care along with proper diet andkeeping their blood sugar under control to prevent complications. Patient recommended to wear good supportive shoes, avoid barefoot walking and to inspect her feet for any open sores. 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 Angelina Godwin DPM * Bernice Eason LPN - 12/01/2024 1:20 PM EST Patient presents with: Right Foot - Established Patient, Pain: Nail Care Left Foot - Established Patient, Pain: Nail Care Bernice Eason LPN documented in this encounterRiver[facility] Institute01-17-2025 Instructions* Patient Instructions* Angelina Godwin - 12/01/2024 1:31 PM EST Diabetes Foot Care Instructions When you have diabetes, proper foot care is very important. Poor foot care may lead to amputation of a foot or leg. As a person with diabetes, you are more vulnerable to foot problems, because diabetes can damage your nerves and reduce blood flow to your feet. Here are some diabetes foot care tips to follow: Wash and Dry Your Feet Daily Use mild soaps Use warm water Pat your skin dry; do not rub. Thoroughly dry your feet. After washing, use lotion on your feet to prevent cracking. Do not put lotion between your toes. Examine Your Feet Each Day Check the tops and bottoms of your feet. Have someone else look at your feet if you cannot see them. Check for dry, cracked skin. Look for blisters, cuts, scratches, or other sores. Check for redness, increased warmth, or tenderness when touching any area of your feet. Check for ingrown toenails, corns, and calluses. If you get a blister or sore from your shoes, do not pop it. Apply a bandage and wear a differentpair of shoes. Take Care of Your Toenails Cut toenails after bathing, when they are soft. Cut toenails straight across and smooth with a nail file. Avoid cutting into the corners of toes. Do not cut cuticles. If you have neuropathy (or decreased sensation in your feet) a transit vehicle inspector should always cut your toenails. Be Careful When Exercising Walk and exercise in comfortable shoes. Do not exercise when you have open sores on your feet. Protect Your Feet With Shoes and Socks Never go barefoot. Always protect your feet by wearing shoes or hard-soled slippers or footwear. Avoid shoes with high heels and pointed toes. Avoid shoes that expose your toes or heels (such as open-toed shoes or sandals). These types of shoes increase your risk for injury and potential infections. Try on new footwear with the type of socks you usually wear. Do not wear new shoes for more than an hour at a time. Change your socks daily. Look and feel inside your shoes before putting them on to make sure there are no foreign objects orrough areas. Avoid tight socks. Wear natural-fiber socks (cotton, wool, or a cotton-wool blend). Wear special shoes if your health care provider recommends them. Wear shoes/boots that will protect your feet from various weather conditions (cold, moisture, etc.). Make sure your shoes fit properly. If you have neuropathy (nerve damage), you may not notice that your shoes are too tight. Perform the footwear test described below. Footwear Test Use this simple test to see if your shoes fit correctly: Stand on a piece of paper. (Make sure you are standing and not sitting, because your foot changes shape when you stand.) Trace the outline of your foot. Trace the outline of your shoe. Compare the tracings: Is the shoe too narrow? Is your foot crammed into the shoe? The shoe should be at least 1/2 inch longer than your longest toe and as wide as your foot. Proper Shoe Choices The following types of shoes are best for people with diabetes Closed toes and heels Leather uppers without a seam inside At least 1/2 inch extra space at the end of your longest toe Inside of shoe should be soft with no rough areas Outer sole should be made of stiff material Shoes should be at least as wide as your feet Tips for Foot Care in Diabetes Don't wait to treat a minor foot problem if you have diabetes. Follow your health care provider's guidelines and first aid guidelines. Report foot injuries and infections to your health care provider immediately. Check water temperature with your elbow, not your foot. Do not use a heating pad on your feet. Do not cross your legs. Do not self-treat your corns, calluses, or other foot problems. Go to your health care provider or transit vehicle inspector to treat these conditions. documented in this encounterRiverview Health Institute01-17-2025 NoteHNO ID: [id number] Author: BERNICE EASON LPN Service: ? Author Type: LICENSED NURSE Type: Progress Notes Filed: 12/01/2024 13:47 Note Text: Patient presents with: Right Foot - Established Patient, Pain: Nail Care Left Foot - Established Patient, Pain: Nail Care [facility] Instructions* Patient Instructions* Sandra Sigala, RO.MEDICAL RESEARCH ASSISTANT - 11/27/2024 2:05 PM EST Screening schedule The following prevention plan is recommended: RSV Vaccine(1 - 1-dose 75+ series) Never done WHAT YOU CAN DO TO PREVENT FALLS Many falls can be prevented. By making some changes, you can lower your chances of falling. Four things YOU can do to prevent falls for you* and your caregiver 1. Begin a regular exercise program Exercise is one of the most important ways to lower your chances of falling. It makes you stronger and helps you feel better. Exercises that improve balance and coordination (like Fabricio Chi) are the most helpful. Lack of exercise leads to weakness and increases your chances of falling. Ask your doctor or health care provider about the best type of exercise program for you. 2. Have your health care provider review your medicines Have your doctor or pharmacist review all the medicines you take, even [id number] medicines. As you get older, the way medicines work in your body can change. Some medicines, or combinations of medicines, can make you sleepy or dizzy andcan cause you to fall. 3. Have your vision checked Have your eyes checked by an eye doctor at least once a year. You may be wearing the wrong glasses or have a condition like glaucoma or cataracts that limits your vision. Poor vision can increase your chances of falling. 4. Make your home safer About half of all falls happen at home. To make your home safer: Remove things you can trip over (like papers, books, clothes, and shoes) from stairs and places where you walk. Remove small throw rugs or use double-sided tape to keep the rugs from slipping. Keep items you use often in cabinets you can reach easily without using a step stool. Have grab bars put in next to your toilet and in the tub or shower. Use non-slip mats in the bathtub and on shower floors. Improve the lighting in your home. As you get older, you need brighter lights to see well. Hang light-weight curtains or shades to reduce glare. Have handrails and lights put in on all staircases. Wear shoes both inside and outside the house. Avoid going barefoot or wearing slippers. For more information, contact: Centers for Disease Control and Prevention www.cdc.gov/injury * This information may not apply if you have certain medical conditions. documented in this encounterRiverview Health Institute01-13-2025 NoteHNO ID: [id number] Author: SANDRA SIGALA APRN.CNP Service: ? Author Type: Nurse Practitioner Type: Progress Notes Filed: 11/28/2024 11:38 Note Text: Yann Adair is a 89 year old female here for a Medicare wellness visit. Medicare Health Risk Assessment General Health Very good Exercise: Minutes/Day 0 min Exercise: Days/Week 0 days Alcohol: Daily Use Never Alcohol: Drinks/Day Patient does not drink Alcohol: 6 or more drinks Never Feel off balance Yes Concerns: Teeth/Dentures No Concerns: Sexual function No Troubled by feelings None of the above Frequency: Eating healthy diet Nearly every day ADLs requiring help Driving Safety precautions in home/vehicle Yes Smoke, vape, chews tobacco No Difficulty hearing Yes Difficulty seeing Yes Current Providers Specialists: I have reviewed specialist-related care of the patient in the medical record. Current care team: Patient Care Team: Fitz Walters MD as PCP - General Sandra Sigala APRN.CNP as Media Professional (Internal Medicine) Retinal specialist- [facility] Dr. Gould-neurologist Dr. Godwin-transit vehicle inspector Dr. Hinds-textile colorist dyer Medical/Family history review Reviewed and updated problem list, medical/surgical/family/social history, medications, and allergies. Opioid use review Opioid Medications (last 90 days) No data to display Anxiety/Depression screening Recommendation: no further intervention at this time Cognitive screening Mini Cog Score: 4 Cognitive screening reviewed and No further action needed (score 3-5). Functional Observation Was the patient's Timed Up AND Go test unsteady or >= 12 seconds? No Advance Care Planning Surrogate decision maker documented and/or advance directives scanned in chart Measurements BP 110/62 Pulse 72 Ht 156.8 cm (5' 1.75) Wt 65.9 kg (145 lb 4.5 oz) SpO2 98% BMI 26.79 kg/m? Vision Screening: Follows with optometry/ophthalmology Assessment/Plan Medicare annual wellness visit, subsequent () - Counseled on healthy diet and regular exercise - Fall avoidance information provided - Personalized prevention plan provided Additional Concerns The following concerns were also discussed with the patient: She is taking medications as prescribed, denies side effects. She does not check her blood sugars at home. She has been feeling like her blood sugar drops a few days a week, symptoms resolve with eating. She does not check her BP at home. PHYSICAL EXAM BP 110/62 Pulse 72 Ht 156.8 cm (5' 1.75) Wt 65.9 kg (145 lb 4.5 oz) SpO2 98% BMI 26.79 kg/m? GENERAL: well appearing, alert, in no acute distress CARDIOVASCULAR: regular rate and rhythm. No murmur, rubs or gallops. PULMONARY: clear to auscultation, no wheezing, rhonchi, or crackles ASSESSMENT/PLAN: 1. Medicare annual wellness visit, subsequent - ICD9: V70.0, ICD10: Z00.00 (primary diagnosis) See medicare wellness plan 2. Type 2 diabetes, controlled, with peripheral neuropathy (HCC) - ICD9: 250.60, 357.2, ICD10: E11.42 - Controlled - Stop glipizide due to frequent hypoglycemic symptoms - continue with Metformin - follow-up in 6 months with labs - ALBUMIN/CREATININE RATIO, URINE - HEMOGLOBIN A1C 3. Essential hypertension - ICD9: 401.9, ICD10: I10 - Controlled - Continue current medications - Recommend home blood pressure monitoring, to bring results to next visit - Encouraged sodium restriction, DASH or Mediterranean diet 4. Hyperlipidemia, unspecified hyperlipidemia type - ICD9: 272.4, ICD10: E78.5 - Controlled - Continue current medications 5. Encounter for immunization - ICD9: V03.89, ICD10: Z23 - INFLUENZA VACCINE, PRSV FREE, AGE 65+ YR, HIGH DOSE, TRIVALENT (FLUZONE HIGH-DOSE) - PFIZER-TXCOM COVID-19 VACCINE AGE 12+ YR (COMIRNATY) Sandra Sigala [facility] History of Present illness Narrative* Sandra Sigala APRN.JAIME - 11/27/2024 1:59 PM EST Images from the original note were not included. Yann Adair is a 89 year old female here for a Medicare wellness visit. Medicare Health Risk Assessment General Health Very good Exercise: Minutes/Day 0 min Exercise: Days/Week 0 days Alcohol: Daily Use Never Alcohol: Drinks/Day Patient does not drink Alcohol: 6 or more drinks Never Feel off balance Yes Concerns: Teeth/Dentures No Concerns: Sexual function No Troubled by feelings None of the above Frequency: Eating healthy diet Nearly every day ADLs requiring help Driving Safety precautions in home/vehicle Yes Smoke, vape, chews tobacco No Difficulty hearing Yes Difficulty seeing Yes Current Providers Specialists: I have reviewed specialist-related care of the patient in the medical record. Current care team: Patient Care Team: Fitz Walters MD as PCP - General Sandra Sigala APRN.CNP as Media Professional (Internal Medicine) Retinal specialist- [facility] Dr. Gould-neurologist Dr. Godwin-transit vehicle inspector Dr. Hinds-textile colorist dyer Medical/Family history review Reviewed and updated problem list, medical/surgical/family/social history, medications, and allergies. Opioid use review Opioid Medications (last 90 days) No data to display Anxiety/Depression screening Recommendation: no further intervention at this time Cognitive screening Mini Cog Score: 4 Cognitive screening reviewed and No further action needed (score 3-5). Functional Observation Was the patient's Timed Up & Go test unsteady or >= 12 seconds? No Advance Care Planning Surrogate decision maker documented and/or advance directives scanned in chart Measurements BP 110/62 Pulse 72 Ht 156.8 cm (5' 1.75) Wt 65.9 kg (145 lb 4.5 oz) SpO2 98% BMI 26.79 kg/m Vision Screening: Follows with optometry/ophthalmology Assessment/Plan Medicare annual wellness visit, subsequent (Z00.00) - Counseled on healthy diet and regular exercise - Fall avoidance information provided - Personalized prevention plan provided Additional Concerns The following concerns were also discussed with the patient: She is taking medications as prescribed, denies side effects. She does not check her blood sugars at home. She has been feeling like her blood sugar drops a few days a week, symptoms resolve with eating. She does not check her BP at home. PHYSICAL EXAM BP 110/62 Pulse 72 Ht 156.8 cm (5' 1.75) Wt 65.9 kg (145 lb 4.5 oz) SpO2 98% BMI 26.79 kg/m GENERAL: well appearing, alert, in no acute distress CARDIOVASCULAR: regular rate and rhythm. No murmur, rubs or gallops. PULMONARY: clear to auscultation, no wheezing, rhonchi, or crackles ASSESSMENT/PLAN: 1. Medicare annual wellness visit, subsequent - ICD9: V70.0, ICD10: Z00.00 (primary diagnosis) See medicare wellness plan 2. Type 2 diabetes, controlled, with peripheral neuropathy (HCC) - ICD9: 250.60, 357.2, ICD10: E11.42 - Controlled - Stop glipizide due to frequent hypoglycemic symptoms - continue with Metformin - follow-up in 6 months with labs - ALBUMIN/CREATININE RATIO, URINE - HEMOGLOBIN A1C 3. Essential hypertension - ICD9: 401.9, ICD10: I10 - Controlled - Continue current medications - Recommend home blood pressure monitoring, to bring results to next visit - Encouraged sodium restriction, DASH or Mediterranean diet 4. Hyperlipidemia, unspecified hyperlipidemia type - ICD9: 272.4, ICD10: E78.5 - Controlled - Continue current medications 5. Encounter for immunization - ICD9: V03.89, ICD10: Z23 - INFLUENZA VACCINE, PRSV FREE, AGE 65+ YR, HIGH DOSE, TRIVALENT (FLUZONE HIGH-DOSE) - [employer] COVID-19 VACCINE AGE 12+ YR (COM[place]NAT[place]) Sandra Sigala APRN.MEDICAL RESEARCH ASSISTANT documented in this encounterRiverview Health Institute07-11-2024 NoteHNO ID: [id number] Author: FITZ WALTERS MD Service: ? Author Type: Physician Type: Progress Notes Filed: 05/25/2024 15:19 Note Text: This note was created using [email or web address]. Subjective Yann Adair is a 88 year old female. Her vision had deteriorated more recently, and she was having difficulty with pills that are similar (methotrexate and folic acid). Hypertension and diabetes mellitus were controlled. Review of Systems Constitutional: Negative for fatigue. Eyes: Positive for visual disturbance. Respiratory: Negative for shortness of breath. Cardiovascular: Negative for chest pain. Gastrointestinal: Negative for abdominal pain. Musculoskeletal: Positive for arthralgias. Neurological: Negative. ACTIVE PROBLEM LIST Generalized Osteoarthrosis Essential Hypertension Type 2 Diabetes, Controlled, With Peripheral Neuropathy (Hcc) Other Psoriasis Hyperlipidemia Congenital Pes Planus Vitamin D Deficiency Dermatophytosis of Nail Arthritis, Midfoot Nocturia Urge Incontinence of Urine Social History Tobacco Use Smoking status: Former Packs/day: 1.00 Years: 15.00 Additional pack years: 0.00 Total pack years: 15.00 Types: Cigarettes Quit date: 09/02/1990 Years since quittin.7 Smokeless tobacco: Never Vaping Use Vaping Use: Never used Substance Use Topics Alcohol use: No Comment: Wine on few occasions a year. Drug use: No Current Outpatient Medications Medication Sig losartan (COZAAR) 25 mg tablet Take 1 tablet by mouth once daily. For high blood pressure. glipiZIDE (GLUCOTROL XL) 2.5 mg 24 hr tablet Take 1 tablet by mouth daily with breakfast. atorvastatin (LIPITOR) 10 mg tablet Take 1 tablet by mouth once daily. metFORMIN (GLUCOPHAGE) 500 mg tablet Take 1 tablet by mouth two times a day with meals. cyanocobalamin, vitamin B-12, (VITAMIN B12 ORAL) Take by mouth. dorzolamide-timolol (COSOPT) 22.3-6.8 mg/mL ophthalmic solution Use 1 Drop in both eyes twice daily. latanoprost (XALATAN) 0.005 % ophthalmic solution Use 1 Drop in both eyes once daily. methotrexate 2.5 mg tablet 6 tabs once weekly ferrous sulfate 325 mg (65 mg iron) tablet Take 1 tablet by mouth daily with breakfast. Lancets ([employer] ULTRASOFT LANCETS) lancets Test blood sugar(s) 1 times daily. Dx: Other DM Code E11.42 , Insulin: No blood sugar diagnostic (ONETOUCH ULTRA TEST) test strip Test blood sugar once daily. Dx: E11.42. Insulin: No. folic acid 1 mg tablet Take 2 mg by mouth once daily. tacrolimus (PROTOPIC) 0.1 % ointment Apply 1 application to affected area as needed. ASPIRIN 81 MG TAB Take one (1) tablet daily . No current facility-administered medications for this visit. Objective BP 126/76 (BP Site: Left Arm, BP Position: Sitting, BP Cuff Size: Large Adult) Pulse 72 Temp 36.3 ?C (97.4 ?F) (Temporal) Resp 20 Wt 67.1 kg (148 lb) BMI 27.07 kg/m? Physical Exam Constitutional: General: She is not in acute distress. Appearance: She is not ill-appearing. Cardiovascular: Rate and Rhythm: Normal rate and regular rhythm. Heart sounds: No murmur heard. No gallop. Pulmonary: Breath sounds: Normal breath sounds. Musculoskeletal: Right lower leg: No edema. Left lower leg: No edema. Neurological: General: No focal deficit present. Mental Status: She is alert. Comments: Ambulatory with cane. Psychiatric: Mood and Affect: Mood normal. Behavioral Health Screening PHQ-2 Score: 0 (Lower risk for depression) YAEL-2 Score: 0 (Lower risk for anxiety) Recommendation: no further intervention at this time Assessment and Plan 1. Type 2 diabetes, controlled, with peripheral neuropathy (HCC) - ICD9: 250.60, 357.2, ICD10: E11.42 (primary diagnosis) - Controlled - Continue current medications - HEMOGLOBIN A1C (POC) - ALBUMIN/CREATININE RATIO, URINE - HEMOGLOBIN A1C - BASIC METABOLIC PANEL 2. Essential hypertension - ICD9: 401.9, ICD10: I10 - Controlled. - Continue current medications 3. Hyperlipidemia, unspecified hyperlipidemia type - ICD9: 272.4, ICD10: E78.5 - Controlled - Continue current medications - LIPID PANEL BASIC 4. 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 Fitz Walters, [facility]07-11-2024 History of Present illness Narrative* Fitz Walters MD - 05/25/2024 2:57 PM EDT This note was created using [email or web address]. Subjective Yann Adair is a 88 year old female. Her vision had deteriorated more recently, and she was having difficulty with pills that are similar (methotrexate and folic acid). Hypertension and diabetes mellitus were controlled. Review of Systems Constitutional: Negative for fatigue. Eyes: Positive for visual disturbance. Respiratory: Negative for shortness of breath. Cardiovascular: Negative for chest pain. Gastrointestinal: Negative for abdominal pain. Musculoskeletal: Positive for arthralgias. Neurological: Negative. ACTIVE PROBLEM LIST Generalized Osteoarthrosis Essential Hypertension Type 2 Diabetes, Controlled, With Peripheral Neuropathy (Hcc) Other Psoriasis Hyperlipidemia Congenital Pes Planus Vitamin D Deficiency Dermatophytosis of Nail Arthritis, Midfoot Nocturia Urge Incontinence of Urine Social History Tobacco Use Smoking status: Former Packs/day: 1.00 Years: 15.00 Additional pack years: 0.00 Total pack years: 15.00 Types: Cigarettes Quit date: 09/02/1990 Years since quittin.7 Smokeless tobacco: Never Vaping Use Vaping Use: Never used Substance Use Topics Alcohol use: No Comment: Wine on few occasions a year. Drug use: No Current Outpatient Medications Medication Sig losartan (COZAAR) 25 mg tablet Take 1 tablet by mouth once daily. For high blood pressure. glipiZIDE (GLUCOTROL XL) 2.5 mg 24 hr tablet Take 1 tablet by mouth daily with breakfast. atorvastatin (LIPITOR) 10 mg tablet Take 1 tablet by mouth once daily. metFORMIN (GLUCOPHAGE) 500 mg tablet Take 1 tablet by mouth two times a day with meals. cyanocobalamin, vitamin B-12, (VITAMIN B12 ORAL) Take by mouth. dorzolamide-timolol (COSOPT) 22.3-6.8 mg/mL ophthalmic solution Use 1 Drop in both eyes twice daily. latanoprost (XALATAN) 0.005 % ophthalmic solution Use 1 Drop in both eyes once daily. methotrexate 2.5 mg tablet 6 tabs once weekly ferrous sulfate 325 mg (65 mg iron) tablet Take 1 tablet by mouth daily with breakfast. Lancets ([employer] ULTRASOFT LANCETS) lancets Test blood sugar(s) 1 times daily. Dx: Other DM Code E11.42 , Insulin: No blood sugar diagnostic (ONETOUCH ULTRA TEST) test strip Test blood sugar once daily. Dx: E11.42. Insulin: No. folic acid 1 mg tablet Take 2 mg by mouth once daily. tacrolimus (PROTOPIC) 0.1 % ointment Apply 1 application to affected area as needed. ASPIRIN 81 MG TAB Take one (1) tablet daily . No current facility-administered medications for this visit. Objective BP 126/76 (BP Site: Left Arm, BP Position: Sitting, BP Cuff Size: Large Adult) Pulse 72 Temp 36.3 C (97.4 F) (Temporal) Resp 20 Wt 67.1 kg (148 lb) BMI 27.07 kg/m Physical Exam Constitutional: General: She is not in acute distress. Appearance: She is not ill-appearing. Cardiovascular: Rate and Rhythm: Normal rate and regular rhythm. Heart sounds: No murmur heard. No gallop. Pulmonary: Breath sounds: Normal breath sounds. Musculoskeletal: Right lower leg: No edema. Left lower leg: No edema. Neurological: General: No focal deficit present. Mental Status: She is alert. Comments: Ambulatory with cane. Psychiatric: Mood and Affect: Mood normal. Behavioral Health Screening PHQ-2 Score: 0 (Lower risk for depression) YAEL-2 Score: 0 (Lower risk for anxiety) Recommendation: no further intervention at this time Assessment and Plan 1. Type 2 diabetes, controlled, with peripheral neuropathy (HCC) - ICD9: 250.60, 357.2, ICD10: E11.42 (primary diagnosis) - Controlled - Continue current medications - HEMOGLOBIN A1C (POC) - ALBUMIN/CREATININE RATIO, URINE - HEMOGLOBIN A1C - BASIC METABOLIC PANEL 2. Essential hypertension - ICD9: 401.9, ICD10: I10 - Controlled. - Continue current medications 3. Hyperlipidemia, unspecified hyperlipidemia type - ICD9: 272.4, ICD10: E78.5 - Controlled - Continue current medications - LIPID PANEL BASIC 4. 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 Fitz Walters MD documented in this encounterRiver[facility] Institute06-03-2024 Telephone encounter Note * Telephone Encounter - Karolina Smith LPN - 04/17/2024 11:08 AM EDT Patient has been identified by name and date of : Yes, Patient phones for refill(s): Requested Prescriptions Pending Prescriptions Disp Refills losartan (COZAAR) 25 mg tablet 90 tablet 3 Sig: Take 1 tablet by mouth once daily. For high blood pressure. glipiZIDE XL (GLUCOTROL XL) 2.5 mg 24 hr tablet 90 tablet 3 Sig: Take 1 tablet by mouth daily with breakfast. Date of last office visit in primary care: 11/23/2023 Date of next office visit in primary care: 05/25/2024 Please advise. Thank you. Karolina Smith LPN. [facility]06-03-2024 Miscellaneous Notes* Telephone Encounter - Karolina Smith LPN - 04/17/2024 11:08 AM EDT Patient has been identified by name and date of : Yes, Patient phones for refill(s): Requested Prescriptions Pending Prescriptions Disp Refills losartan (COZAAR) 25 mg tablet 90 tablet 3 Sig: Take 1 tablet by mouth once daily. For high blood pressure. glipiZIDE XL (GLUCOTROL XL) 2.5 mg 24 hr tablet 90 tablet 3 Sig: Take 1 tablet by mouth daily with breakfast. Date of last office visit in primary care: 11/23/2023 Date of next office visit in primary care: 05/25/2024 Please advise. Thank you. Karolina Smith LPN. documented in this encounterRiverview [facility] Institute04-11-2024 Miscellaneous Notes* Telephone Encounter - Alee Brown LPN - 02/24/2024 2:56 PM EDT Patient has been identified by name and date of : Yes Patient phones for refill(s): Requested Prescriptions Pending Prescriptions Disp Refills atorvastatin (LIPITOR) 10 mg tablet 90 tablet 3 Sig: Take 1 tablet by mouth once daily. Date of last office visit in primary care: 11/23/2023 Date of next office visit in primary care: 05/25/2024 Please advise. Thank you. Alee Brown LPN. * Telephone Encounter - Shavon Flannery - 02/24/2024 2:37 PM EDT Patient has been identified by name and date of : Yes Requested Prescriptions Pending Prescriptions Disp Refills atorvastatin (LIPITOR) 10 mg tablet 90 tablet 3 Sig: Take 1 tablet by mouth once daily. RX INSTRUCTIONS: Patient aware RX will be sent to pharmacy. No need to notify patient. Shavon Flannery documented in this encounterRiverview [facility] Institute04-05-2024 Miscellaneous Notes* Telephone Encounter - Linda Roque - 02/18/2024 3:04 PM EDT Patient has been identified by name and date of : Yes, Patient phones for refill(s): Requested Prescriptions Pending Prescriptions Disp Refills metFORMIN (GLUCOPHAGE) 500 mg tablet 180 tablet 3 Sig: Take 1 tablet by mouth two times a day with meals. Date of last office visit in primary care: 11/23/2023 Date of next office visit in primary care: 05/25/2024 Please advise. Thank you. Linda Roque. documented in this encounterRiverview Health Institute02-29-2024 NoteHNO ID: [id number] Author: ANGELINA GODWIN, ? Service: ? Author Type: Physician Type: Progress Notes Filed: 01/13/2024 14:23 Note Text: Last saw pcp: 11/23/23 Subjective: Patient presents to clinic c/o painful toenails. They state that the nails are especially painful with shoe gear and pressure. Patient states that nails 1-5 b/l are painful. Patient admits to being diabetic. No other pedal complaints at this time. Patient states no change in medications or medical history since last visit. Objective: Patient presents to clinic ambulating in [facility] Vasc: DP and PT pulses are faintly palpable bilateral. CFT is less than 5 seconds bilateral. Skin temperature is warm to cool proximal to distal bilateral. There is moderate edema or varicosities noted. Neuro: Protective sensation is decreased to the foot and toes when tested with the 5.07 SWM bilateral. Vibratory sensation is absent at the hallux IPJ bilateral. The hallux is downgoing bilateral. Derm: Nails 1-5 b/l are painful, discolored-yellow, thick, crumbly, dystrophic and with subungal debris. Skin is of normal turgor, texture and hair growth is absent bilateral. There are callus to left medial arch. No ulcerations, scars, verruca or other lesions noted. Ortho: Muscle strength is 5/5 for all pedal groups tested. Ankle joint DF is decreased with the knee extended with no pain or crepitus noted. 1st MPJ ROM is decreased bilateral. Assessment: (B35.1) Onychomycosis (primary encounter diagnosis) (M79.674) Pain in toe of right foot (M79.675) Pain in toe of left foot (E11.42) Type 2 diabetes, controlled, with peripheral neuropathy (HCC) (L84) Callus of foot Plan: Patient was seen and evaluated. Nails 1-5 bilateral were debrided in length and thickness. Small bleed to left 2nd toe. Callus of left medial arch reduced with dremmel. Continue with lambs wool between toes. Patient was instructed on the continued importance of diabetic foot care along with proper diet and keeping their blood sugar under control to prevent complications. Patient is to RTC in 3-4 months. Angelina Godwin [facility]02-29-2024 History of Present illness Narrative* Angelina Godwin - 01/13/2024 2:11 PM EST Last saw pcp: 11/23/23 Subjective: Patient presents to clinic c/o painful toenails. They state that the nails are especially painful with shoe gear and pressure. Patient states that nails 1-5 b/l are painful. Patient admits to being diabetic. No other pedal complaints at this time. Patient states no change in medications or medical history since last visit. Objective: Patient presents to clinic ambulating in [facility] Vasc: DP and PT pulses are faintly palpable bilateral. CFT is less than 5 seconds bilateral. Skin temperature is warm to cool proximal to distal bilateral. There is moderate edema or varicosities noted. Neuro: Protective sensation is decreased to the foot and toes when tested with the 5.07 SWM bilateral. Vibratory sensation is absent at the hallux IPJ bilateral. The hallux is downgoing bilateral. Derm: Nails 1-5 b/l are painful, discolored-yellow, thick, crumbly, dystrophic and with subungal debris. Skin is of normal turgor, texture and hair growth is absent bilateral. There are callus to left medial arch. No ulcerations, scars, verruca or other lesions noted. Ortho: Muscle strength is 5/5 for all pedal groups tested. Ankle joint DF is decreased with the knee extended with no pain or crepitus noted. 1st MPJ ROM is decreased bilateral. Assessment: (B35.1) Onychomycosis (primary encounter diagnosis) (M79.674) Pain in toe of right foot (M79.675) Pain in toe of left foot (E11.42) Type 2 diabetes, controlled, with peripheral neuropathy (HCC) (L84) Callus of foot Plan: Patient was seen and evaluated. Nails 1-5 bilateral were debrided in length and thickness. Small bleed to left 2nd toe. Callus of left medial arch reduced with dremmel. Continue with lambs wool between toes. Patient was instructed on the continued importance of diabetic foot care along with proper diet andkeeping their blood sugar under control to prevent complications. Patient is to RTC in 3-4 months. Angelina Godwin DPM documented in this encounterRiverview [facility] Institute02-19-2024 Miscellaneous Notes* Telephone Encounter - Beverley Nick RN - 01/03/2024 3:26 PM EST Patient calls to report 3 nose bleeds in approximately a month. Nurse triage completed. Protocol recommends home care. Reviewed care advice. Patient to try care advice and call back if any further problems. Reason for Disposition [1] Mild-moderate nosebleed AND [2] bleeding stopped now Answer Assessment - Initial Assessment Questions 1. AMOUNT OF BLEEDING: - MODERATE: needed many tissues 2. ONSET: Patient reports three in the last month 3. FREQUENCY: One in the past 24 hours 4. RECURRENT SYMPTOMS: Patient reports in the last month a few nose bleeds that take between 3-5 minutes to stop the bleeding. 5. CAUSE: Patient not certain. She does report that air in home is dry. 6. LOCAL FACTORS: No cold symptoms and no rubbing or picking. 7. SYSTEMIC FACTORS: HX of HTN. BP controlled. 8. BLOOD THINNERS: A Baby Aspirin every day 9. OTHER SYMPTOMS:Denies light-headedness Protocols used: [id number] documented in this encounterRiverview Health Institute11-03-2023 History of Present illness Narrative* Lonnie Angelina - 09/17/2023 2:42 PM EDT Last saw pcp: 05/17/23 Subjective: Patient presents to clinic c/o painful toenails. They state that the nails are especially painful with shoe gear and pressure. Patient states that nails 1-5 b/l are painful. Patient admits to being diabetic . No other pedal complaints at this time. Patient states no change in medications or medical history since last visit. Objective: Patient presents to clinic ambulating in read tennis shoes Vasc: DP and PT pulses are nonpalpable bilateral. CFT is less than 5 seconds bilateral. Skin temperature is warm to cool proximal to distal bilateral. There is mild edema or varicosities noted. Neuro: Protective sensation is intact to the foot and toes when tested with the 5.07 SWM bilateral.Vibratory sensation is absent at the hallux IPJ bilateral. The hallux is downgoing bilateral. Derm: Nails 1-5 b/l are painful, discolored-yellow, thick, crumbly, dystrophic and with subungal debris. Skin is of normal turgor, texture and hair growth is absent bilateral. There are callus to medial instep of left foot. no ulcerations, scars, verruca or other lesions noted. Ortho: Muscle strength is 5/5 for all pedal groups tested. Ankle joint DF is decreased with the knee extended with no pain or crepitus noted. 1st MPJ ROM is decreased bilateral. Severe flatfoot is noted b/l. Assessment: (B35.1) Onychomycosis (primary encounter diagnosis) (M79.674) Pain in toe of right foot (M79.675) Pain in toe of left foot (E11.42) Type 2 diabetes, controlled, with peripheral neuropathy (HCC) callus Plan: Patient was seen and evaluated. Nails 1-5 bilateral were debrided in length and thickness. Callus to left foot was filed down with shekharmmel Continue with good supportive shoes for flatfoot Patient was instructed on the continued importance of diabetic foot care along with proper diet andkeeping their blood sugar under control to prevent complications. Patient is to RTC in 3-4 months. Angelina Godwin DPM * SHELLEY Sousa Laurie - 09/17/2023 2:09 PM EDT AMB ROOMING INTAKE FLOWSHEET DATA Nail care. No specific issues. Diabetic foot check. documented in this encounterRiverview Health Institute11-03-2023 Instructions* Patient Instructions* Angelina Godwin - 09/17/2023 2:42 PM EDT Diabetes Foot Care Instructions When you have diabetes, proper foot care is very important. Poor foot care may lead to amputation of a foot or leg. As a person with diabetes, you are more vulnerable to foot problems, because diabetes can damage your nerves and reduce blood flow to your feet. Here are some diabetes foot care tips to follow: Wash and Dry Your Feet Daily Use mild soaps Use warm water Pat your skin dry; do not rub. Thoroughly dry your feet. After washing, use lotion on your feet to prevent cracking. Do not put lotion between your toes. Examine Your Feet Each Day Check the tops and bottoms of your feet. Have someone else look at your feet if you cannot see them. Check for dry, cracked skin. Look for blisters, cuts, scratches, or other sores. Check for redness, increased warmth, or tenderness when touching any area of your feet. Check for ingrown toenails, corns, and calluses. If you get a blister or sore from your shoes, do not pop it. Apply a bandage and wear a differentpair of shoes. Take Care of Your Toenails Cut toenails after bathing, when they are soft. Cut toenails straight across and smooth with a nail file. Avoid cutting into the corners of toes. Do not cut cuticles. If you have neuropathy (or decreased sensation in your feet) a transit vehicle inspector should always cut your toenails. Be Careful When Exercising Walk and exercise in comfortable shoes. Do not exercise when you have open sores on your feet. Protect Your Feet With Shoes and Socks Never go barefoot. Always protect your feet by wearing shoes or hard-soled slippers or footwear. Avoid shoes with high heels and pointed toes. Avoid shoes that expose your toes or heels (such as open-toed shoes or sandals). These types of shoes increase your risk for injury and potential infections. Try on new footwear with the type of socks you usually wear. Do not wear new shoes for more than an hour at a time. Change your socks daily. Look and feel inside your shoes before putting them on to make sure there are no foreign objects orrough areas. Avoid tight socks. Wear natural-fiber socks (cotton, wool, or a cotton-wool blend). Wear special shoes if your health care provider recommends them. Wear shoes/boots that will protect your feet from various weather conditions (cold, moisture, etc.). Make sure your shoes fit properly. If you have neuropathy (nerve damage), you may not notice that your shoes are too tight. Perform the footwear test described below. Footwear Test Use this simple test to see if your shoes fit correctly: Stand on a piece of paper. (Make sure you are standing and not sitting, because your foot changes shape when you stand.) Trace the outline of your foot. Trace the outline of your shoe. Compare the tracings: Is the shoe too narrow? Is your foot crammed into the shoe? The shoe should be at least 1/2 inch longer than your longest toe and as wide as your foot. Proper Shoe Choices The following types of shoes are best for people with diabetes Closed toes and heels Leather uppers without a seam inside At least 1/2 inch extra space at the end of your longest toe Inside of shoe should be soft with no rough areas Outer sole should be made of stiff material Shoes should be at least as wide as your feet Tips for Foot Care in Diabetes Don't wait to treat a minor foot problem if you have diabetes. Follow your health care provider's guidelines and first aid guidelines. Report foot injuries and infections to your health care provider immediately. Check water temperature with your elbow, not your foot. Do not use a heating pad on your feet. Do not cross your legs. Do not self-treat your corns, calluses, or other foot problems. Go to your health care provider or transit vehicle inspector to treat these conditions. documented in this encounterRiver[facility] Institute07-10-2023 Miscellaneous Notes* Telephone Encounter - Alee Brown LPN - 05/24/2023 6:35 PM EDT Patient notified of below results/recommendation. Alee Brown LPN * Telephone Encounter - Liban Wu Ma - 05/24/2023 4:16 PM EDT Left message to call office. 05/24/2023 4:16 PM * Telephone Encounter - Liban Wu Ma - 05/24/2023 4:16 PM EDT ----- Message from Fitz Walters MD sent at 05/22/2023 1:12 PM EDT ----- urinary tract infection. Macrobid Take one(1) tablet two(2) times daily x 7 days sent. Fluids. documented in this encounterRiverview Health Institute07-03-2023 Instructions* Patient Instructions* Fitz Walters MD - 05/17/2023 3:37 PM EDT WE WILL CALL WITH URINE CULTURE RESULTS IN 2-3 DAYS. FASTING BLOOD WORK IN 6 MONTHS. documented in this encounterRiverview Health Institute07-03-2023 History of Present illness Narrative* Fitz Walters MD - 05/17/2023 3:16 PM EDT This note was created using [employer]. Subjective Yann Adair is a 87 year old female. She had urinary tract infection 3 months ago. She continued with intermittent dysuria for which shedrank fluids and cranberry juice. Symptoms started again 1 week ago, and seemed to be resolving. Her osteoarthritis was impairing her mobility and she requested handicap parking. She still kept busy caring for 8 horses, and they have helped her deal with being 18 months ago. Hypertensionand diabetes mellitus were controlled. Review of Systems Constitutional: Negative for appetite change, chills and fever. HENT: Negative for trouble swallowing. Respiratory: Negative for cough and shortness of breath. Cardiovascular: Negative for chest pain, palpitations and leg swelling. Gastrointestinal: Negative for abdominal pain, nausea and vomiting. Genitourinary: Positive for dysuria. Negative for hematuria. ACTIVE PROBLEM LIST Generalized Osteoarthrosis Essential Hypertension Type 2 Diabetes, Controlled, With Peripheral Neuropathy (Hcc) Other Psoriasis Hyperlipidemia Congenital Pes Planus Vitamin D Deficiency Dermatophytosis of Nail Arthritis, Midfoot Nocturia Urge Incontinence of Urine Current Outpatient Medications Medication Sig glipiZIDE (GLUCOTROL XL) 2.5 mg 24 hr tablet Take 1 tablet by mouth daily with breakfast. losartan (COZAAR) 25 mg tablet Take 1 tablet by mouth once daily. For high blood pressure. atorvastatin (LIPITOR) 10 mg tablet Take 1 tablet by mouth once daily. dorzolamide-timolol (COSOPT) 22.3-6.8 mg/mL ophthalmic solution Use 1 Drop in both eyes twice daily. latanoprost (XALATAN) 0.005 % ophthalmic solution Use 1 Drop in both eyes once daily. metFORMIN (GLUCOPHAGE) 500 mg tablet Take 1 tablet by mouth twice daily with meals. methotrexate 2.5 mg tablet 6 tabs once weekly ferrous sulfate 325 mg (65 mg iron) tablet Take 1 tablet by mouth daily with breakfast. folic acid 1 mg tablet Take 2 mg by mouth once daily. timolol maleate (TIMOPTIC) 0.5 % ophthalmic solution Use 1 Drop in both eyes twice daily. tacrolimus (PROTOPIC) 0.1 % ointment Apply 1 application to affected area as needed. ASPIRIN 81 MG TAB Take one (1) tablet daily . tamsulosin (FLOMAX) 0.4 mg Take by mouth. (Patient not taking: No sig reported) Lancets (ONETOUCH ULTRASOFT LANCETS) lancets Test blood sugar(s) 1 times daily. Dx: Other DM Code E11.42 , Insulin: No (Patient not taking: Reported on 05/17/2023) blood sugar diagnostic (ONETOUCH ULTRA TEST) test strip Test blood sugar once daily. Dx: E11.42. Insulin: No. (Patient not taking: Reported on 05/17/2023) No current facility-administered medications for this visit. Objective BP 126/68 (BP Site: Left Arm, BP Position: Sitting, BP Cuff Size: Large Adult) Pulse 64 Resp 18 Wt 66.2 kg (146 lb) BMI 26.07 kg/m Physical Exam Cardiovascular: Rate and Rhythm: Normal rate and regular rhythm. Heart sounds: No murmur heard. No gallop. Pulmonary: Breath sounds: Normal breath sounds. Abdominal: Palpations: Abdomen is soft. Tenderness: There is no abdominal tenderness. There is no right CVA tenderness or left CVA tenderness. Musculoskeletal: Right lower leg: No edema. Left lower leg: No edema. Neurological: Mental Status: She is alert. Gait: Gait normal. Psychiatric: Mood and Affect: Mood normal. Component Latest Ref Rng & Units 05/14/2023 Hemoglobin A1C 4.3 - 5.6 % 5.4 Estimated Average Glucose mg/dL 108 Component Latest Ref Rng & Units 05/17/2023 GLUCOSE UA (POCT) Negative mg/dL Negative BILIRUBIN UA (POCT) Negative Negative KETONE UA (POCT) Negative mg/dL Negative SPECIFIC GRAVITY UA (POCT) 1.005 - 1.030 1.015 HEMOGLOBIN/BLOOD UA (POCT) Negative Small (A) PH UA (POCT) 4.5 - 8.0 5.5 PROTEIN UA (POCT) Negative mg/dL Negative UROBILINOGEN UA (POCT) Normal E.U./dL 0.2 NITRITE UA (POCT) Negative Negative LEUKOCYTES UA (POCT) Negative Small (A) COLOR UA (POCT) Light yellow CLARITY UA (POCT) Clear Assessment and Plan 1. Type 2 diabetes, controlled, with peripheral neuropathy (HCC) - ICD9: 250.60, 357.2, ICD10: E11.42 (primary diagnosis) - Controlled - Continue current medications - COMP METABOLIC PANEL - LIPID PANEL BASIC - HGB A1C - ALBUMIN/CREAT RATIO RND UR 2. Essential hypertension - ICD9: 401.9, ICD10: I10 - Controlled - Continue current medications 3. Dysuria - ICD9: 788.1, ICD10: R30.0 recurrent - Patient education for prevention given. Further recommendations will be made with culture resultsin 2-3 days. - UA DIP, URINE (POC) - URINE CULTURE 4. Generalized osteoarthrosis - ICD9: 715.00, ICD10: M15.9 Handicap parking. Fitz Walters MD documented in this encounterRiverview [facility] Institute06-21-2023 Miscellaneous Notes* Telephone Encounter - Dhara Jimenez RN - 05/05/2023 12:52 PM EDT Pt called and is notified of providers instructions. Pt voices understanding. Dhara Jimenez RN * Telephone Encounter - Angela Saucedo Pss - 05/05/2023 10:15 AM EDT Patient calling askng if she needs labs drawn prior to May 17 office visit. Please advise and call patient. documented in this encounterRiverview Health Institute05-31-2023 Miscellaneous Notes* Telephone Encounter - Alee Brown LPN - 04/14/2023 11:41 AM EDT Patient has been identified by name and date of : Yes, Patient phones for refill(s): Requested Prescriptions Pending Prescriptions Disp Refills glipiZIDE XL (GLUCOTROL XL) 2.5 mg 24 hr tablet 90 tablet 3 Sig: Take 1 tablet by mouth daily with breakfast. losartan (COZAAR) 25 mg tablet 90 tablet 3 Sig: Take 1 tablet by mouth once daily. For high blood pressure. Date of last office visit in primary care: 02/02/2023 6 month follow-up: 05/07/2023 Last 2 Encounter Wt Readings: Date: Wt: 02/10/2023 64.1 kg (141 lb 6.4 oz) 11/10/2022 64.4 kg (142 lb) Previous labs/tests for medication: Diabetes: Hemoglobin A1C (%) Date Value 10/29/2022 5.1 04/30/2022 5.7 10/28/2021 5.9 07/09/2020 6.4 Hemoglobin A1C (POCT) (%) Date Value 01/16/2021 5.9 Blood Pressure: BUN (mg/dL) Date Value 10/29/2022 18 10/28/2021 19 Sodium (mmol/L) Date Value 10/29/2022 133 10/28/2021 134 Last 1 Encounter BP Readings: Date: BP: 02/10/2023 128/64 Please advise. Thank you. Alee Brown LPN * Telephone Encounter - Eli Cornell Pss - 04/14/2023 11:00 AM EDT Patient has been identified by name and date of : Yes Requested Prescriptions Pending Prescriptions Disp Refills glipiZIDE XL (GLUCOTROL XL) 2.5 mg 24 hr tablet 90 tablet 3 Sig: Take 1 tablet by mouth daily with breakfast. losartan (COZAAR) 25 mg tablet 90 tablet 3 Sig: Take 1 tablet by mouth once daily. For high blood pressure. RX INSTRUCTIONS: Patient aware RX will be sent to pharmacy. No need to notify patient. Eli Cornell Pss documented in this encounterRiverview Health Institute03-31-2023 Miscellaneous Notes* Telephone Encounter - Lynette Kennedy MA - 02/12/2023 10:31 AM EDT All listed contact unavailable with boxes full, will send letter to listed address today. Lynette Kennedy MA * Telephone Encounter - Lynette Kennedy MA - 02/12/2023 10:30 AM EDT ----- Message from Lisa Wilson APRN.CNP sent at 02/11/2023 6:19 PM EDT ----- Urine culture did not show clear evidence of infection. She may continue to take antibiotic if it has been helpful. Recommend follow up with PCP to ensure hematuria has resolved. Lisa Wilson CNP documented in this encounterRiverview Health Institute03-29-2023 History of Present illness Narrative* Milagros Gramajo APRN.CNP - 02/10/2023 12:02 PM EDT This note was created using [email or web address]. Subjective Yann Adair is a 87 year old female. HPI pt states that she started with burning, frequency, and urgency with some incontinence. She denies seeing any blood in the urine or fevers. Review of Systems Genitourinary: Positive for dysuria, frequency and urgency. Objective BP 128/64 Pulse 65 Temp 36.7 C (98 F) Resp 18 Wt 64.1 kg (141 lb 6.4 oz) SpO2 96% BMI 25.25 kg/m Physical Exam Pulmonary: Effort: Pulmonary effort is normal. Neurological: Mental Status: She is alert. ASSESSMENT/PLAN: 1. Urinary frequency - ICD9: 788.41, ICD10: R35.0 (primary diagnosis) acute - UA positive for neri esterase and hematuria - Send urine for culture - Begin treatment with Macrobid 100 mg BID for 7 days - Patient education for prevention given - UA DIP, URINE (POC) - URINE CULTURE 2. Acute cystitis with hematuria - ICD9: 595.0, ICD10: N30.01 Milagros Gramajo APRN.CNP Medical Decision Making: Problems: Low: Acute, uncomplicated illness or injury Data: Unique test(s) ordered: 2 Risk: Low: Low risk from testing/treatment Moderate: Drug management Medical Decision Making Level: 3 - Low documented in this encounterRiverview Health Institute03-28-2023 Miscellaneous Notes* Telephone Encounter - Sandra Mahoney APRN.CNP - 02/09/2023 3:01 PM EDT Noted and agree Sandra Mahoney APRN.CNP * Telephone Encounter - Evelyne Moe RN - 02/09/2023 2:07 PM EDT Patient calls and states that she has been seen Dr. Cantu for urinary frequency at night and dribbling when she urinates. Patient states that on 02/02/2023 Dr. Cantu had prescribed Tamsulosin 04 mg for patient. Patient reports that medication opened her up and she was going too much. Patient reports that yesterday she started having burning with urination. Patient states that she started drinking apple juice to help with this since she does not have any cranberry juice. Patient reports that she had a glob of mucous on her pad today.. Patient reports that she called Dr. Cantu's office due to not wanting to take medication anymore and to report her symptom of burning with urination. Patient states that office had told her to callher PCP about symptoms. Patient reports that she does not have anymore burning with urination so that she really does not think she has a urinary tract infection. Advised patient that if she has urinary symptoms that she needs to come into office to be evaluatedor she could go to express care to be evaluated. Patient voiced understanding. Evelyne Moe RN documented in this encounterRiverview Health Institute03-22-2023 Miscellaneous Notes* Telephone Encounter - Felecia Cruz LPN - 02/03/2023 3:44 PM EDT Pt last seen 11/10/22. Next appt with pcp in April. * Telephone Encounter - Magnolia [facility] - 02/03/2023 1:01 PM EDT Patient has been identified by name and date of : Yes Requested Prescriptions Pending Prescriptions Disp Refills metFORMIN (GLUCOPHAGE) 500 mg tablet 180 tablet 3 Sig: Take 1 tablet by mouth twice daily with meals. RX INSTRUCTIONS: Patient aware RX will be sent to pharmacy. No need to notify patient. [facility] [employer] [facility] documented in this encounterRiverview Health Institute12-27-2022 History of Present illness Narrative* Sandra Mahoney APRN.JAIME - 11/10/2022 1:19 PM EST Yann Adair is a 86 year old female here for a Medicare Subsequent Annual Wellness Visit Health Risk Assessment In general, health is: Very good Concerns with balance:Not at all Concerns with teeth or dentures:Not at all Concerns with sexual function:na Brady anxious, stressed, angry, irritable, lonely, isolated, or had thoughts of hurting themself: Not at all Has little interest or pleasure in doing things: Not at all Bothered by feeling down, depressed, or hopeless: Not at all Needs help with grocery shopping, cooking, housework, bathing, grooming, dressing, eating, sitting or standing, walking, using the toilet, handling finances, taking medications, using the telephone, or driving: No Following safety precautions in the home environment and vehicle: removed throw rugs from floors, installed grab bars in the bathroom, handrails in stairwells, having adequate lighting, wearing seatbelt at all times?: Yes Smokes cigarettes, vapes, or chew tobacco: No Eats healthy foods including fruits, vegetables, whole grains, and fiber-rich foods: Nearly every day Number of days per week engages in exercise: denies regular aerobic exercise however 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 Current care team: Patient Care Team: Fitz Walters MD as PCP - General Dr. Godwin- Podiatry Outside specialists seen: Neurologist- Dr. Cantu Caustic Plant Worker- Dr. Hinds Welding Machine Operator Electro Gas- Dr. Liban Leiva Automation Lead- Dr. Finley Medical/Family history review Reviewed and updated problem list, medical/surgical/family/social history, medications, and allergies. Opioid use review Patient is not currently using opioids. Depression screening Depression Screening PHQ-2 Score 11/10/2022 0 Depression screening tool completed and reviewed. Based on score and interview, patient is not at risk for depression. Screening tool discussed with patient, and I recommended no further interventionat this time. Cognitive screening Mini Cog Score: 4 Cognitive screening reviewed and no further action needed (score 3-5) Functional Observation Was the patient's timed Up & Go test unsteady or ? 12 seconds? No Advance Care Planning End of Life planning discussed, including patient's advanced directive wishes: Yes Measurements BP 123/79 Pulse 81 Resp 18 Ht 5' 2.75 (1.59m) Wt 142 lb (64.4kg) BMI 25.35 kg/(m^2). Visual acuity (required for Welcome to Medicare): follows with optometry/ophthalmology Hearing Evaluation: hard of hearing ASSESSMENT/PLAN: 1. Medicare annual wellness visit, subsequent - ICD9: V70.0, ICD10: Z00.00 (primary diagnosis) The following prevention plan was discussed during the office visit and provided to the patient: - fall risk reduction - Counseled on healthy diet and regular exercise - Calcium intake with supplements or by diet of 1000 mg/day for under 50, 1200- 1500 mg/day for 50+ - Depression screening tool completed and reviewed with patient. Based on score and interview, patient is not at risk for depression and recommended no further intervention at this time. - Patient was counseled [id number] by myself (the billing provider) for the following immunizations and vaccine components, including side effects: COVID-19 and Influenza. Patient consents for immunization and understands risks and benefits. A VIS sheet on each immunization was given to the patient. - follow-up for medicare annual exam in one year 2. Encounter for immunization - ICD9: V03.89, ICD10: Z23 - PFIZER-BIONTECH COVID-19 BIVALENT BOOSTER VACCINE, AGE 12+ YR - INFLUENZA SEASONAL QUADRIVALENT HIGH DOSE AGE 65+ Sandra Mahoney APRN.CNP documented in this encounterRiverview Health Institute12-27-2022 Instructions* Patient Instructions* Sandra Mahoney APRN.CNP - 11/10/2022 1:19 PM EST Screening schedule The following prevention plan is recommended: ADVANCE DIRECTIVE DISCUSSION Never done DEPRESSION ASSESSMENT Never done INFLUENZA(1) due on 07/16/2022 COVID-19 VACCINE(4 - Booster for Pfizer series) due on 09/03/2022 DIABETIC FOOT EXAM due on 10/31/2022 WHAT YOU CAN DO TO PREVENT FALLS Many falls can be prevented. By making some changes, you can lower your chances of falling. Four things YOU can do to prevent falls for you* and your caregiver 1. Begin a regular exercise program Exercise is one of the most important ways to lower your chances of falling. It makes you stronger and helps you feel better. Exercises that improve balance and coordination (like Fabricio Chi) are the most helpful. Lack of exercise leads to weakness and increases your chances of falling. Ask your doctor or health care provider about the best type of exercise program for you. 2. Have your health care provider review your medicines Have your doctor or pharmacist review all the medicines you take, even [id number] medicines. As you get older, the way medicines work in your body can change. Some medicines, or combinations of medicines, can make you sleepy or dizzy andcan cause you to fall. 3. Have your vision checked Have your eyes checked by an eye doctor at least once a year. You may be wearing the wrong glasses or have a condition like glaucoma or cataracts that limits your vision. Poor vision can increase your chances of falling. 4. Make your home safer About half of all falls happen at home. To make your home safer: Remove things you can trip over (like papers, books, clothes, and shoes) from stairs and places where you walk. Remove small throw rugs or use double-sided tape to keep the rugs from slipping. Keep items you use often in cabinets you can reach easily without using a step stool. Have grab bars put in next to your toilet and in the tub or shower. Use non-slip mats in the bathtub and on shower floors. Improve the lighting in your home. As you get older, you need brighter lights to see well. Hang light-weight curtains or shades to reduce glare. Have handrails and lights put in on all staircases. Wear shoes both inside and outside the house. Avoid going barefoot or wearing slippers. For more information, contact: Centers for Disease Control and Prevention www.cdc.gov/injury * This information may not apply if you have certain medical conditions. documented in this encounterRiverview Health Institute11-03-2022 Miscellaneous Notes* Telephone Encounter - Ne Shen LPN - 09/17/2022 2:53 PM EDT Gail from [facility] calling asking for copy of patients bone density be faxed to [phone]. Printed from 04/2013 and faxed as requested. documented in this encounterRiverview Health Institute11-01-2022 Miscellaneous Notes* Telephone Encounter - Liban Wu Ma - 09/15/2022 1:11 PM EDT Patient notified, verbalized understanding and transferred to camp nurse. * Telephone Encounter - Liban Wu Ma - 09/14/2022 11:45 AM EDT Left message to call office. 09/14/2022 11:45 AM * Telephone Encounter - Sandra Mahoney APRN.CNP - 09/14/2022 8:45 AM EDT Calcium is still elevated, patient needs to see endocrinology Sandra Mahoney APRN.CNP documented in this encounterRiverview Health Institute10-14-2022 Miscellaneous Notes* Telephone Encounter - Liban Wu Ma - 08/28/2022 2:52 PM EDT Patient notified, verbalized understanding. * Telephone Encounter - Sandra Mahoney APRN.CNP - 08/28/2022 2:15 PM EDT Please let the patient know the lab test showed minimal elevation. Recommend rechecking in a coupleweeks and if it is still elevated will refer her to mutuel department manager. In the meantime make sure she is not taking any calcium supplements. She does not need to limit the calcium in her diet however. Sandra Mahoney APRN.CNP documented in this encounterRiverview Health Institute10-11-2022 Miscellaneous Notes* Telephone Encounter - Marlene Austin LPN - 08/25/2022 3:10 PM EDT Patient notified of providers message and verbalized understanding. * Telephone Encounter - Sandra Mahoney APRN.CNP - 08/25/2022 2:56 PM EDT Needs further evaluation with more blood work. Come in at her convenience to have done. Sandra Mahoney APRN.CNP * Telephone Encounter - Alee Brown LPN - 08/25/2022 1:44 PM EDT Lab results printed from [facility], given to SCHOOL BUS DISPATCHER. Alee Brown LPN * Telephone Encounter - Sandra Mahoney APRN.CNP - 08/25/2022 12:35 PM EDT Please get lab results from [facility] Sandra Mahoney APRN.CNP * Telephone Encounter - Evelyne Moe RN - 08/25/2022 9:53 AM EDT Patient calls and states that she had labs done at Dr. Hinds's office yesterday. Patient states that she was told that her calcium was 11. Patient states that she was suppose to call PCP in regards to this. Please review and advise, Evelyne Moe RN documented in this encounterRiverview Health Institute09-16-2022 History of Present illness Narrative* Angelina Godwin - 07/31/2022 1:27 PM EDT Last saw Dr. Walters: 07/09/22 Subjective: Patient presents to clinic c/o painful toenails. They state that the nails are especially painful with shoe gear and pressure. Patient states that nails 1-5 b/l are painful. No other pedal complaints at this time. Patient states no change in medications or medical history since last visit. Objective: Patient presents to clinic ambulating in dress shoes Vasc: DP and PT pulses are faintly palpable bilateral. CFT is less than 5 seconds bilateral. Skin temperature is warm to cool proximal to distal bilateral. There is no edema or varicosities noted. Neuro: Protective sensation is intact to the foot and toes when tested with the 5.07 SWM bilateral.Vibratory sensation is absent at the hallux IPJ bilateral. The hallux is downgoing bilateral. Derm: Nails 1-5 b/l are painful, discolored-yellow, thick, crumbly, dystrophic and with subungal debris. Skin is of normal turgor, texture and hair growth is decreased bilateral. There are callus to left 3rd and left 4th toe dorsally and along the plantar arch left foot. Dry blood eschar of left medial arch but no ulcerations, scars, verruca or other lesions noted. Ortho: Muscle strength is 5/5 for all pedal groups tested. Ankle joint DF is decreased with the knee extended with no pain or crepitus noted. 1st MPJ ROM is decreased bilateral. Hammertoes are present 2-5 b/l. Flatfoot is present b/l. Assessment: (B35.1) Onychomycosis (primary encounter diagnosis) (E11.42) Type 2 diabetes, controlled, with peripheral neuropathy (HCC (M79.674) Pain in toe of right foot (M79.675) Pain in toe of left foot (M76.821) Posterior tibial tendon dysfunction (PTTD) of right lower extremity (E11.621, L97.421) Diabetic ulcer of left midfoot associated with type 2 diabetes mellitus, limitedto breakdown of skin (HCC) (M20.41, M20.42) Hammer toes of both feet Plan: Patient was seen and evaluated. Nails 1-5 bilateral were debrided in length and thickness. Bleeding present to b/l 2nd toe. Band aide applied. Callus reduced with dremmel to left 3rd and 4th toe. Small blood blister debrided to left medial arch. No ulceration present. In order to perform a complete physical exam, limited shaving of callus area was performed. This incidental service is integral to the evaluation and management visit in order to appropriately manage and treat the patient (for their complaint or for this visit). Diabetic shoes ordered Recommend lambs wool for hammertoes Patient was instructed on the continued importance of diabetic foot care along with proper diet andkeeping their blood sugar under control to prevent complications. Patient is to RTC in 3-4 months. Angelina Godwin DPM * Hilary Skaggs LPN - 07/31/2022 1:06 PM EDT AMB ROOMING INTAKE FLOWSHEET DATA Risk Screening Do you have concerns about personal safety or safety in the home?: No Patient presents with: Left Foot - Established Patient, Follow Up, Diabetic Foot Care Right Foot - Established Patient, Follow Up, Diabetic Foot Care Hilary Skaggs LPN documented in this encounterRiverview Health Institute09-16-2022 Instructions* Patient Instructions* Angelina Godwin - 07/31/2022 1:27 PM EDT Diabetes Foot Care Instructions When you have diabetes, proper foot care is very important. Poor foot care may lead to amputation of a foot or leg. As a person with diabetes, you are more vulnerable to foot problems, because diabetes can damage your nerves and reduce blood flow to your feet. Here are some diabetes foot care tips to follow: Wash and Dry Your Feet Daily Use mild soaps Use warm water Pat your skin dry; do not rub. Thoroughly dry your feet. After washing, use lotion on your feet to prevent cracking. Do not put lotion between your toes. Examine Your Feet Each Day Check the tops and bottoms of your feet. Have someone else look at your feet if you cannot see them. Check for dry, cracked skin. Look for blisters, cuts, scratches, or other sores. Check for redness, increased warmth, or tenderness when touching any area of your feet. Check for ingrown toenails, corns, and calluses. If you get a blister or sore from your shoes, do not pop it. Apply a bandage and wear a differentpair of shoes. Take Care of Your Toenails Cut toenails after bathing, when they are soft. Cut toenails straight across and smooth with a nail file. Avoid cutting into the corners of toes. Do not cut cuticles. If you have neuropathy (or decreased sensation in your feet) a transit vehicle inspector should always cut your toenails. Be Careful When Exercising Walk and exercise in comfortable shoes. Do not exercise when you have open sores on your feet. Protect Your Feet With Shoes and Socks Never go barefoot. Always protect your feet by wearing shoes or hard-soled slippers or footwear. Avoid shoes with high heels and pointed toes. Avoid shoes that expose your toes or heels (such as open-toed shoes or sandals). These types of shoes increase your risk for injury and potential infections. Try on new footwear with the type of socks you usually wear. Do not wear new shoes for more than an hour at a time. Change your socks daily. Look and feel inside your shoes before putting them on to make sure there are no foreign objects orrough areas. Avoid tight socks. Wear natural-fiber socks (cotton, wool, or a cotton-wool blend). Wear special shoes if your health care provider recommends them. Wear shoes/boots that will protect your feet from various weather conditions (cold, moisture, etc.). Make sure your shoes fit properly. If you have neuropathy (nerve damage), you may not notice that your shoes are too tight. Perform the footwear test described below. Footwear Test Use this simple test to see if your shoes fit correctly: Stand on a piece of paper. (Make sure you are standing and not sitting, because your foot changes shape when you stand.) Trace the outline of your foot. Trace the outline of your shoe. Compare the tracings: Is the shoe too narrow? Is your foot crammed into the shoe? The shoe should be at least 1/2 inch longer than your longest toe and as wide as your foot. Proper Shoe Choices The following types of shoes are best for people with diabetes Closed toes and heels Leather uppers without a seam inside At least 1/2 inch extra space at the end of your longest toe Inside of shoe should be soft with no rough areas Outer sole should be made of stiff material Shoes should be at least as wide as your feet Tips for Foot Care in Diabetes Don't wait to treat a minor foot problem if you have diabetes. Follow your health care provider's guidelines and first aid guidelines. Report foot injuries and infections to your health care provider immediately. Check water temperature with your elbow, not your foot. Do not use a heating pad on your feet. Do not cross your legs. Do not self-treat your corns, calluses, or other foot problems. Go to your health care provider or transit vehicle inspector to treat these conditions. documented in this encounterRiver[facility] Institute09-01-2022 Miscellaneous Notes* Telephone Encounter - Miley Paredes RN - 07/16/2022 7:04 PM EDT Spoke with patient. Given message from provider's office. Patient verbalizes understanding. Miley Paredes RN * Telephone Encounter - Fitz Walters MD - 07/16/2022 6:58 PM EDT urinary tract infection. Stress fluids. Take antibiotic. Requested Prescriptions Signed Prescriptions Disp Refills nitrofurantoin monohydrate and macrocrystal (MACROBID) 100 mg capsule 14 capsule 0 Sig: Take 1 capsule by mouth twice daily with meals for 7 days. Authorizing Provider: FITZ WALTERS Order entered - please phone pharmacy and notify patient. Fitz Walters MD * Telephone Encounter - Evelyne Moe RN - 07/16/2022 1:09 PM EDT Patient calls and is asking about her urine culture results. Patient's pharmacy is [facility]. Please review and advise, Evelyne Moe RN documented in this encounterRiverview Health Institute08-25-2022 Instructions* Patient Instructions* Fitz Walters MD - 07/09/2022 2:56 PM EDT STOP VESICARE. URINE CULTURE SENT AND WILL DETERMINE IF ANTIBIOTIC IS NEEDED. documented in this encounterRiverview Health Institute08-25-2022 History of Present illness Narrative* Fitz Walters MD - 07/09/2022 2:23 PM EDT This note was created using [email or web address]. Subjective Yann Adair is a 86 year old female here with her daughter. We started a trial of Vesicare 5 mgdaily. She did not feel benefit so she called for a dose increase 2 months ago. Since the dose increase, she noted hoarseness, dry mouth, dysphagia, blurry vision as indicated in the package insert. She called here with concerns and was scheduled today. She stopped the medication yesterday. Review of Systems Constitutional: Negative for appetite change, chills and fever. HENT: Positive for trouble swallowing. Eyes: Positive for visual disturbance. Respiratory: Negative. Gastrointestinal: Negative. Genitourinary: Positive for dysuria, frequency and urgency. ACTIVE PROBLEM LIST Generalized Osteoarthrosis Essential Hypertension Type 2 Diabetes, Controlled, With Peripheral Neuropathy (Hcc) Other Psoriasis Hyperlipidemia Congenital Pes Planus Vitamin D Deficiency Dermatophytosis of Nail Arthritis, Midfoot Nocturia Urge Incontinence of Urine Current Outpatient Medications Medication Sig atorvastatin (LIPITOR) 10 mg tablet Take 1 tablet by mouth once daily. glipiZIDE (GLUCOTROL XL) 2.5 mg 24 hr tablet Take 1 tablet by mouth daily with breakfast. losartan (COZAAR) 25 mg tablet Take 1 tablet by mouth once daily. For high blood pressure. metFORMIN (GLUCOPHAGE) 500 mg tablet Take 1 tablet by mouth twice daily with meals. methotrexate 2.5 mg tablet 6 tabs once weekly ferrous sulfate 325 mg (65 mg iron) tablet Take 1 tablet by mouth daily with breakfast. Lancets (ONETOUCH ULTRASOFT LANCETS) lancets Test blood sugar(s) 1 times daily. Dx: Other DM Code E11.42 , Insulin: No blood sugar diagnostic (ONETOUCH ULTRA TEST) test strip Test blood sugar once daily. Dx: E11.42. Insulin: No. folic acid 1 mg tablet Take 2 mg by mouth once daily. timolol maleate (TIMOPTIC) 0.5 % ophthalmic solution Use 1 Drop in both eyes twice daily. tacrolimus (PROTOPIC) 0.1 % ointment Apply 1 application to affected area as needed. ASPIRIN 81 MG TAB Take one (1) tablet daily . solifenacin 10 mg tablet Take 1 tablet by mouth once daily. (Patient not taking: Reported on 07/09/2022) No current facility-administered medications for this visit. Objective BP 118/73 (BP Site: Right Arm, BP Position: Sitting, BP Cuff Size: Large Adult) Pulse 68 Temp 36 C (96.8 F) (Temporal) Resp 20 Wt 64 kg (141 lb) BMI 24.20 kg/m Physical Exam Constitutional: General: She is not in acute distress. Appearance: She is not ill-appearing. HENT: Mouth/Throat: Mouth: Mucous membranes are moist. Pharynx: Oropharynx is clear. Eyes: Extraocular Movements: Extraocular movements intact. Conjunctiva/sclera: Conjunctivae normal. Cardiovascular: Rate and Rhythm: Normal rate and regular rhythm. Pulmonary: Breath sounds: Normal breath sounds. Abdominal: Tenderness: There is no abdominal tenderness. Lymphadenopathy: Cervical: No cervical adenopathy. Neurological: General: No focal deficit present. Mental Status: She is alert. Assessment and Plan 1. Urge incontinence of urine - ICD9: 788.31, ICD10: N39.41 (primary diagnosis) Discontinue medication Vesicare. Other medications had been tried previously. No other medication for now. 2. Nocturia - ICD9: 788.43, ICD10: R35.1 See #1. 3. Medication side effects - ICD9: 995.20, ICD10: T88.7XXA Expect improvement. 4. Dysuria - ICD9: 788.1, ICD10: R30.0 - UA DIP, URINE (POC) - URINE CULTURE 5. Need for COVID-19 vaccine - ICD9: V04.89, ICD10: Z23 - PFIZER-BIONTECH COVID-19 VACCINE, AGE 12+ YR ([place]) Fitz Walters MD documented in this encounterRiverview [facility] Institute08-24-2022 Miscellaneous Notes* Telephone Encounter - Dhara Jimenez RN - 07/08/2022 1:01 PM EDT Pt called and is notified of providers message and instructions. Pt voices understanding. Dhara Jimenez RN * Telephone Encounter - Fitz Walters MD - 07/08/2022 12:14 PM EDT Hold solifenacin till evaluated. * Telephone Encounter - Thi Ash RN - 07/08/2022 11:19 AM EDT Protocol Recommends: Call PCP now. Patient unable to get transportation to appt today and does not prefer to go to ER if needed. Appt made with Dr. Walters for 2pm tomorrow. Please call patient if other advise is advised. Thank you. Reason for Disposition [1] Caller has URGENT medicine question about med that PCP or specialist prescribed AND [2] triagerunable to answer question Answer Assessment - Initial Assessment Questions 1. NAME of MEDICATION: solifenacin 10 mg daily 2. QUESTION: Patient states shortly after medication was increased she started to experience multiple symptoms and believes it may be from the medication 3. PRESCRIBING HCP: Sandra Mahoney 4. SYMPTOMS: Reports about 10-15 days ago she started to experience a tightness in her throat. States it feels like she has a lump in her throat and if eats a bit too much she feels like she's going to vomit. Also experiencing dry mouth, urinary frequency and burning with urination. She states she has other symptoms that she does not think are related to the medication which include blurred vision and thinks it's from her bifocals. Also states has been more unsteady on her feet and forgetful attimes. 5. SEVERITY: Mild-states it's not that bad. Does not want to go to ER. 6. : no Protocols used: Medication Question [id number] documented in this encounterRiverview Health Institute07-23-2022 Miscellaneous Notes* Telephone Encounter - Felecia Anthony COBURN - 06/06/2022 8:42 AM EDT Images from the original note were not included. Prior authorization approved Payer: [employer] [phone] CaseId:[id number];Status:Approved;Review Type:Prior Auth;Coverage Start Date:05/22/2022;Coverage End Date:06/05/2023; Approval Details Authorized from May 22, 2022 to June 05, 2023 Pharmacy notified. * Telephone Encounter - Felecia Cruz LPN - 06/05/2022 2:41 PM EDT Electronic PA completed for solifenacin. documented in this encounterRiverview Health Institute07-20-2022 Miscellaneous Notes* Telephone Encounter - Alee Brown LPN - 06/03/2022 10:52 AM EDT Per Yann, she is still getting up every 90 minutes through the night, she is wanting to increase to see if it will help. Alee Brown LPN * Telephone Encounter - Sandra Mahoney APRN.CNP - 06/03/2022 10:[address] Walters note 05/07/22: Urge incontinence of urine - ICD9: 788.31, ICD10: N39.41 Shared medical decision making was done. Discussed medication dosage, usage, goals of therapy, and side effects. If effective, call for 10 MG daily. - SOLIFENACIN 5 MG TABLET Please ask patient if okay to increase to 10 mg daily Sandra Mahoney APRN.CNP * Telephone Encounter - Alee Brown LPN - 06/03/2022 10:31 AM EDT Patient has been identified by name and date of : Yes Patient phones for refill(s): Pending Prescriptions Disp Refills SOLIFENACIN 5 MG TABLET 30 tablet 5 Sig: Take 1 tablet by mouth once daily. FADUMO: No Date of last office visit in primary care: 05/07/2022 Annual Medicare: 11/10/2022 Last 2 Encounter Wt Readings: Date: Wt: 05/07/2022 65.3 kg (144 lb) 10/31/2021 65.9 kg (145 lb 3.2 oz) Previous labs/tests for medication: Not applicable Please advise. Thank you. Alee Brown LPN * Telephone Encounter - Shavon Flannery - 06/03/2022 10:03 AM EDT Patient has been identified by name and date of : Yes Pending Prescriptions Disp Refills SOLIFENACIN 5 MG TABLET 30 tablet 0 Sig: Take 1 tablet by mouth once daily. FADUMO: No RX INSTRUCTIONS: Patient aware RX will be sent to pharmacy Shavon Flannery documented in this encounterRiverview [facility] Institute07-18-2022 Miscellaneous Notes* Telephone Encounter - Patsy Guthrie LPN - 06/01/2022 10:25 AM EDT [facility] calls to request pt's last OV notes to confirm why pt is requesting an appt with their office. OV notes faxed to: [phone] as requested. Patsy Guthrie LPN documented in this encounterRiverview Health Institute06-23-2022 History of Present illness Narrative* Fitz Walters MD - 05/07/2022 2:06 PM EDT This note was created using [email or web address]. Subjective Yann Adair is a 86 year old female. She was getting more unsteady on her feet. She self referred to a neuropathy doctor (Dr. Cantu?). Diabetes was controlled. Her main complaint was urinary frequency, urgency, and nocturia. Review of Systems Constitutional: Negative. Respiratory: Negative. Cardiovascular: Negative. Gastrointestinal: Negative. Genitourinary: Negative for difficulty urinating and dysuria. Neurological: Positive for weakness and numbness. ACTIVE PROBLEM LIST Generalized Osteoarthrosis Essential Hypertension Type 2 Diabetes, Controlled, With Peripheral Neuropathy (Hcc) Other Psoriasis Hyperlipidemia Congenital Pes Planus Vitamin D Deficiency Dermatophytosis of Nail Arthritis, Midfoot Nocturia Urge Incontinence of Urine Current Outpatient Medications Medication Sig atorvastatin (LIPITOR) 10 mg tablet Take 1 tablet by mouth once daily. glipiZIDE (GLUCOTROL XL) 2.5 mg 24 hr tablet Take 1 tablet by mouth daily with breakfast. losartan (COZAAR) 25 mg tablet Take 1 tablet by mouth once daily. For high blood pressure. metFORMIN (GLUCOPHAGE) 500 mg tablet Take 1 tablet by mouth twice daily with meals. methotrexate 2.5 mg tablet 6 tabs once weekly ferrous sulfate 325 mg (65 mg iron) tablet Take 1 tablet by mouth daily with breakfast. Lancets (GlomeraTOUCH ULTRASOFT LANCETS) lancets Test blood sugar(s) 1 times daily. Dx: Other DM Code E11.42 , Insulin: No blood sugar diagnostic (ONETOUCH ULTRA TEST) test strip Test blood sugar once daily. Dx: E11.42. Insulin: No. folic acid 1 mg tablet Take 2 mg by mouth once daily. timolol maleate (TIMOPTIC) 0.5 % ophthalmic solution Use 1 Drop in both eyes twice daily. tacrolimus (PROTOPIC) 0.1 % ointment Apply 1 application to affected area as needed. ASPIRIN 81 MG TAB Take one (1) tablet daily . No current facility-administered medications for this visit. Objective BP 110/58 (BP Site: Right Arm, BP Position: Sitting, BP Cuff Size: Large Adult) Pulse 68 Temp 36.1 C (96.9 F) (Temporal Artery) Resp 12 Wt 65.3 kg (144 lb) BMI 24.72 kg/m Physical Exam Constitutional: General: She is not in acute distress. Cardiovascular: Rate and Rhythm: Normal rate and regular rhythm. Heart sounds: No murmur heard. No gallop. Pulmonary: Breath sounds: Normal breath sounds. Abdominal: Palpations: Abdomen is soft. Tenderness: There is no abdominal tenderness. Musculoskeletal: Right lower leg: No edema. Left lower leg: No edema. Neurological: General: No focal deficit present. Mental Status: She is alert. Motor: Weakness present. Gait: Gait abnormal. Comments: Proximal leg weakness. Psychiatric: Mood and Affect: Mood normal. Component Latest Ref Rng & Units 04/30/2022 Glucose 74 - 99 mg/dL 90 BUN 7 - 21 mg/dL 21 Creatinine 0.58 - 0.96 mg/dL 0.80 Sodium 136 - 144 mmol/L 134 (L) Potassium 3.7 - 5.1 mmol/L 5.4 (H) Chloride 97 - 105 mmol/L 98 CO2 22 - 30 mmol/L 24 Anion Gap 9 - 18 mmol/L 12 Calcium 8.5 - 10.2 mg/dL 10.7 (H) eGFR >=60 mL/min/1.73m 72 Hemoglobin A1C 4.3 - 5.6 % 5.7 (H) Estimated Average Glucose mg/dL 117 Assessment and Plan 1. Type 2 diabetes, controlled, with peripheral neuropathy (HCC) - ICD9: 250.60, 357.2, ICD10: E11.42 (primary diagnosis) Controlled. - Continue current medications - COMP METABOLIC PANEL - LIPID PANEL BASIC - HGB A1C - ALBUMIN/CREAT RATIO RND UR 2. Unsteady gait - ICD9: 781.2, ICD10: R26.81 I offered referral for PT. She preferred to see NEUROLOGY first. 3. Urge incontinence of urine - ICD9: 788.31, ICD10: N39.41 Shared medical decision making was done. Discussed medication dosage, usage, goals of therapy, and side effects. If effective, call for 10 MG daily. - SOLIFENACIN 5 MG TABLET 4. Nocturia - ICD9: 788.43, ICD10: R35.1 See above. - SOLIFENACIN 5 MG TABLET 5. Hyperkalemia - ICD9: 276.7, ICD10: E87.5 We reviewed her dietary measures. Her renal function was normal. Fitz Walters MD documented in this encounterRiverview Health Institute06-01-2022 Miscellaneous Notes* Telephone Encounter - Alee Brown LPN - 04/15/2022 1:00 PM EDT Spoke to Patient, meds were escripted to [facility] 01/19/2022 for 1 year. Patient will check with pharmacy. Alee Brown LPN * Telephone Encounter - Eli Cornell Pss - 04/15/2022 11:30 AM EDT Patient has been identified by name and date of : Yes Pending Prescriptions Disp Refills METFORMIN 500 MG TABLET 180 tablet 3 Sig: Take 1 tablet by mouth twice daily with meals. FADUMO: No LOSARTAN 25 MG TABLET 90 tablet 3 Sig: Take 1 tablet by mouth once daily. For high blood pressure. FADUMO: No ATORVASTATIN 10 MG TABLET 90 tablet 3 Sig: Take 1 tablet by mouth once daily. FADUMO: No GLIPIZIDE ER 2.5 MG TABLET, EXTENDED RELEASE 24 HR 90 tablet 3 Sig: Take 1 tablet by mouth daily with breakfast. FADUMO: No RX INSTRUCTIONS: Patient requesting a call when RX is approved and sent to the pharmacy. Please call patient at: [phone]. Eli Cornell Pss documented in this encounterRiverview Health Institute04-27-2022 Miscellaneous Notes* Telephone Encounter - Liban Wu Ma - 03/11/2022 2:21 PM EDT Patient notified. Verbalized understanding. Liban Wu Ma * Telephone Encounter - Sandra Mahoney APRN.CNP - 03/11/2022 1:59 PM EDT She can try Tylenol or NSAID. If the pain doesn't improve with this or worsens she will need to be evaluated Sandra Mahoney APRN.JAIME * Telephone Encounter - Ne Shen LPN - 03/11/2022 11:25 AM EDT Patient calling having right hip pain radiates down her right leg. Patient said pain has been getting worse past several days. Patient daughter is out of town until Wednesday evening, no transportation to come in to urgent care. Patient asking what can she take for pain to help? She is aware can not get stronger pill rx unless she is seen. Patient said she has to lay down to take the pressure off the right hip, leg. Please advise documented in this encounterRiverview Health Institute04-28-2016 History of Past illness Narrative* Problem Noted Date Resolved Date 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 ssed mood 03/12/2016 10/31/2021 Pes planus of both feet 06/23/2015 06/23/20 15 LGI bleed 10/24/2014 09/11/2015 Cellulitis and abscess of toe, unspecified 09/0710/06/2011 Other acquired deformity of toe 10/23/2010 11/01/2013 Type II or unspecified type diabetes mellitus with neurological manifestations, not stated as uncontrolled(250.60) 10/23/2010 11/01/2013 Neuropathy 09/25/2010 09/11/2015 Tinnitus 07/20/2007 04/07/2012 Unspecified urinary incontinence 08/10/2006 09/11/2015 Pain in limb 10/05/2005 08/10/2006 Generalized osteoarthrosis, involving hand 10/0511/01/2013 Nontraumatic rupture of extensor tendons of hand and wrist 10/05/2005 08/10/2006 documented as of this encounter (statuses as of 03/11/2022) [facility]04[facility] History of Past illness Narrative* Problem Noted Date Resolved Date 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 ssed mood 03/12/2016 10/31/2021 Pes planus of both feet 06/23/2015 06/23/20 15 LGI bleed 10/24/2014 09/11/2015 Cellulitis and abscess of toe, unspecified 09/0710/06/2011 Other acquired deformity of toe 10/23/2010 11/01/2013 Type II or unspecified type diabetes mellitus with neurological manifestations, not stated as uncontrolled(250.60) 10/23/2010 11/01/2013 Neuropathy 09/25/2010 09/11/2015 Tinnitus 07/20/2007 04/07/2012 Unspecified urinary incontinence 08/10/2006 09/11/2015 Pain in limb 10/05/2005 08/10/2006 Generalized osteoarthrosis, involving hand 10/0511/01/2013 Nontraumatic rupture of extensor tendons of hand and wrist 10/05/2005 08/10/2006 documented as of this encounter (statuses as of 03/17/2022) [facility] of Past illness Narrative* Problem Noted Date Resolved Date 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 ssed mood 03/12/2016 10/31/2021 Pes planus of both feet 06/23/2015 06/23/20 15 LGI bleed 10/24/2014 09/11/2015 Cellulitis and abscess of toe, unspecified 09/0710/06/2011 Other acquired deformity of toe 10/23/2010 11/01/2013 Type II or unspecified type diabetes mellitus with neurological manifestations, not stated as uncontrolled(250.60) 10/23/2010 11/01/2013 Neuropathy 09/25/2010 09/11/2015 Tinnitus 07/20/2007 04/07/2012 Unspecified urinary incontinence 08/10/2006 09/11/2015 Pain in limb 10/05/2005 08/10/2006 Generalized osteoarthrosis, involving hand 10/0511/01/2013 Nontraumatic rupture of extensor tendons of hand and wrist 10/05/2005 08/10/2006 documented as of this encounter (statuses as of 04/15/2022) [facility] of Past illness Narrative* Problem Noted Date Resolved Date 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 ssed mood 03/12/2016 10/31/2021 Pes planus of both feet 06/23/2015 06/23/20 15 LGI bleed 10/24/2014 09/11/2015 Cellulitis and abscess of toe, unspecified 09/0710/06/2011 Other acquired deformity of toe 10/23/2010 11/01/2013 Type II or unspecified type diabetes mellitus with neurological manifestations, not stated as uncontrolled(250.60) 10/23/2010 11/01/2013 Neuropathy 09/25/2010 09/11/2015 Tinnitus 07/20/2007 04/07/2012 Unspecified urinary incontinence 08/10/2006 09/11/2015 Pain in limb 10/05/2005 08/10/2006 Generalized osteoarthrosis, involving hand 10/0511/01/2013 Nontraumatic rupture of extensor tendons of hand and wrist 10/05/2005 08/10/2006 documented as of this encounter (statuses as of 05/07/2022) [facility] of Past illness Narrative* Problem Noted Date Resolved Date 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 ssed mood 03/12/2016 10/31/2021 Pes planus of both feet 06/23/2015 06/23/20 15 LGI bleed 10/24/2014 09/11/2015 Cellulitis and abscess of toe, unspecified 09/0710/06/2011 Other acquired deformity of toe 10/23/2010 11/01/2013 Type II or unspecified type diabetes mellitus with neurological manifestations, not stated as uncontrolled(250.60) 10/23/2010 11/01/2013 Neuropathy 09/25/2010 09/11/2015 Tinnitus 07/20/2007 04/07/2012 Unspecified urinary incontinence 08/10/2006 09/11/2015 Pain in limb 10/05/2005 08/10/2006 Generalized osteoarthrosis, involving hand 10/0511/01/2013 Nontraumatic rupture of extensor tendons of hand and wrist 10/05/2005 08/10/2006 documented as of this encounter (statuses as of 06/01/2022) [facility] of Past illness Narrative* Problem Noted Date Resolved Date 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 ssed mood 03/12/2016 10/31/2021 Pes planus of both feet 06/23/2015 06/23/20 15 LGI bleed 10/24/2014 09/11/2015 Cellulitis and abscess of toe, unspecified 09/0710/06/2011 Other acquired deformity of toe 10/23/2010 11/01/2013 Type II or unspecified type diabetes mellitus with neurological manifestations, not stated as uncontrolled(250.60) 10/23/2010 11/01/2013 Neuropathy 09/25/2010 09/11/2015 Tinnitus 07/20/2007 04/07/2012 Unspecified urinary incontinence 08/10/2006 09/11/2015 Pain in limb 10/05/2005 08/10/2006 Generalized osteoarthrosis, involving hand 10/0511/01/2013 Nontraumatic rupture of extensor tendons of hand and wrist 10/05/2005 08/10/2006 documented as of this encounter (statuses as of 06/03/2022) [facility] illness Narrative* Problem Noted Date Resolved Date 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 ssed mood 03/12/2016 10/31/2021 Pes planus of both feet 06/23/2015 06/23/20 15 LGI bleed 10/24/2014 09/11/2015 Cellulitis and abscess of toe, unspecified 09/0710/06/2011 Other acquired deformity of toe 10/23/2010 11/01/2013 Type II or unspecified type diabetes mellitus with neurological manifestations, not stated as uncontrolled(250.60) 10/23/2010 11/01/2013 Neuropathy 09/25/2010 09/11/2015 Tinnitus 07/20/2007 04/07/2012 Unspecified urinary incontinence 08/10/2006 09/11/2015 Pain in limb 10/05/2005 08/10/2006 Generalized osteoarthrosis, involving hand 10/0511/01/2013 Nontraumatic rupture of extensor tendons of hand and wrist 10/05/2005 08/10/2006 documented as of this encounter (statuses as of 06/06/2022) [facility] History of Past illness Narrative* Problem Noted Date Resolved Date 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 ssed mood 03/12/2016 10/31/2021 Pes planus of both feet 06/23/2015 06/23/20 15 LGI bleed 10/24/2014 09/11/2015 Cellulitis and abscess of toe, unspecified 09/0710/06/2011 Other acquired deformity of toe 10/23/2010 11/01/2013 Type II or unspecified type diabetes mellitus with neurological manifestations, not stated as uncontrolled(250.60) 10/23/2010 11/01/2013 Neuropathy 09/25/2010 09/11/2015 Tinnitus 07/20/2007 04/07/2012 Unspecified urinary incontinence 08/10/2006 09/11/2015 Pain in limb 10/05/2005 08/10/2006 Generalized osteoarthrosis, involving hand 10/0511/01/2013 Nontraumatic rupture of extensor tendons of hand and wrist 10/05/2005 08/10/2006 documented as of this encounter (statuses as of 07/08/2022) [facility] History of Past illness Narrative* Problem Noted Date Resolved Date 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 ssed mood 03/12/2016 10/31/2021 Pes planus of both feet 06/23/2015 06/23/20 15 LGI bleed 10/24/2014 09/11/2015 Cellulitis and abscess of toe, unspecified 09/0710/06/2011 Other acquired deformity of toe 10/23/2010 11/01/2013 Type II or unspecified type diabetes mellitus with neurological manifestations, not stated as uncontrolled(250.60) 10/23/2010 11/01/2013 Neuropathy 09/25/2010 09/11/2015 Tinnitus 07/20/2007 04/07/2012 Unspecified urinary incontinence 08/10/2006 09/11/2015 Pain in limb 10/05/2005 08/10/2006 Generalized osteoarthrosis, involving hand 10/0511/01/2013 Nontraumatic rupture of extensor tendons of hand and wrist 10/05/2005 08/10/2006 documented as of this encounter (statuses as of 07/09/2022) [facility] History of Past illness Narrative* Problem Noted Date Resolved Date 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 ssed mood 03/12/2016 10/31/2021 Pes planus of both feet 06/23/2015 06/23/20 15 LGI bleed 10/24/2014 09/11/2015 Cellulitis and abscess of toe, unspecified 09/0710/06/2011 Other acquired deformity of toe 10/23/2010 11/01/2013 Type II or unspecified type diabetes mellitus with neurological manifestations, not stated as uncontrolled(250.60) 10/23/2010 11/01/2013 Neuropathy 09/25/2010 09/11/2015 Tinnitus 07/20/2007 04/07/2012 Unspecified urinary incontinence 08/10/2006 09/11/2015 Pain in limb 10/05/2005 08/10/2006 Generalized osteoarthrosis, involving hand 10/0511/01/2013 Nontraumatic rupture of extensor tendons of hand and wrist 10/05/2005 08/10/2006 documented as of this encounter (statuses as of 07/16/2022) [facility] History of Past illness Narrative* Problem Noted Date Resolved Date 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 ssed mood 03/12/2016 10/31/2021 Pes planus of both feet 06/23/2015 06/23/20 15 LGI bleed 10/24/2014 09/11/2015 Cellulitis and abscess of toe, unspecified 09/0710/06/2011 Other acquired deformity of toe 10/23/2010 11/01/2013 Type II or unspecified type diabetes mellitus with neurological manifestations, not stated as uncontrolled(250.60) 10/23/2010 11/01/2013 Neuropathy 09/25/2010 09/11/2015 Tinnitus 07/20/2007 04/07/2012 Unspecified urinary incontinence 08/10/2006 09/11/2015 Pain in limb 10/05/2005 08/10/2006 Generalized osteoarthrosis, involving hand 10/0511/01/2013 Nontraumatic rupture of extensor tendons of hand and wrist 10/05/2005 08/10/2006 documented as of this encounter (statuses as of 07/31/2022) [facility] History of Past illness Narrative* Problem Noted Date Resolved Date 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 ssed mood 03/12/2016 10/31/2021 Pes planus of both feet 06/23/2015 06/23/20 15 LGI bleed 10/24/2014 09/11/2015 Cellulitis and abscess of toe, unspecified 09/0710/06/2011 Other acquired deformity of toe 10/23/2010 11/01/2013 Type II or unspecified type diabetes mellitus with neurological manifestations, not stated as uncontrolled(250.60) 10/23/2010 11/01/2013 Neuropathy 09/25/2010 09/11/2015 Tinnitus 07/20/2007 04/07/2012 Unspecified urinary incontinence 08/10/2006 09/11/2015 Pain in limb 10/05/2005 08/10/2006 Generalized osteoarthrosis, involving hand 10/0511/01/2013 Nontraumatic rupture of extensor tendons of hand and wrist 10/05/2005 08/10/2006 documented as of this encounter (statuses as of 08/10/2022) [facility] History of Past illness Narrative* Problem Noted Date Resolved Date 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 ssed mood 03/12/2016 10/31/2021 Pes planus of both feet 06/23/2015 06/23/20 15 LGI bleed 10/24/2014 09/11/2015 Cellulitis and abscess of toe, unspecified 09/0710/06/2011 Other acquired deformity of toe 10/23/2010 11/01/2013 Type II or unspecified type diabetes mellitus with neurological manifestations, not stated as uncontrolled(250.60) 10/23/2010 11/01/2013 Neuropathy 09/25/2010 09/11/2015 Tinnitus 07/20/2007 04/07/2012 Unspecified urinary incontinence 08/10/2006 09/11/2015 Pain in limb 10/05/2005 08/10/2006 Generalized osteoarthrosis, involving hand 10/0511/01/2013 Nontraumatic rupture of extensor tendons of hand and wrist 10/05/2005 08/10/2006 documented as of this encounter (statuses as of 08/25/2022) [facility] History of Past illness Narrative* Problem Noted Date Resolved Date 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 ssed mood 03/12/2016 10/31/2021 Pes planus of both feet 06/23/2015 06/23/20 15 LGI bleed 10/24/2014 09/11/2015 Cellulitis and abscess of toe, unspecified 09/0710/06/2011 Other acquired deformity of toe 10/23/2010 11/01/2013 Type II or unspecified type diabetes mellitus with neurological manifestations, not stated as uncontrolled(250.60) 10/23/2010 11/01/2013 Neuropathy 09/25/2010 09/11/2015 Tinnitus 07/20/2007 04/07/2012 Unspecified urinary incontinence 08/10/2006 09/11/2015 Pain in limb 10/05/2005 08/10/2006 Generalized osteoarthrosis, involving hand 10/0511/01/2013 Nontraumatic rupture of extensor tendons of hand and wrist 10/05/2005 08/10/2006 documented as of this encounter (statuses as of 08/28/2022) [place] [id number] History of Past illness Narrative* Problem Noted Date Resolved Date 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 ssed mood 03/12/2016 10/31/2021 Pes planus of both feet 06/23/2015 06/23/20 15 LGI bleed 10/24/2014 09/11/2015 Cellulitis and abscess of toe, unspecified 09/0710/06/2011 Other acquired deformity of toe 10/23/2010 11/01/2013 Type II or unspecified type diabetes mellitus with neurological manifestations, not stated as uncontrolled(250.60) 10/23/2010 11/01/2013 Neuropathy 09/25/2010 09/11/2015 Tinnitus 07/20/2007 04/07/2012 Unspecified urinary incontinence 08/10/2006 09/11/2015 Pain in limb 10/05/2005 08/10/2006 Generalized osteoarthrosis, involving hand 10/0511/01/2013 Nontraumatic rupture of extensor tendons of hand and wrist 10/05/2005 08/10/2006 documented as of this encounter (statuses as of 09/15/2022) [facility] History of Past illness Narrative* Problem Noted Date Resolved Date 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 ssed mood 03/12/2016 10/31/2021 Pes planus of both feet 06/23/2015 06/23/20 15 LGI bleed 10/24/2014 09/11/2015 Cellulitis and abscess of toe, unspecified 09/0710/06/2011 Other acquired deformity of toe 10/23/2010 11/01/2013 Type II or unspecified type diabetes mellitus with neurological manifestations, not stated as uncontrolled(250.60) 10/23/2010 11/01/2013 Neuropathy 09/25/2010 09/11/2015 Tinnitus 07/20/2007 04/07/2012 Unspecified urinary incontinence 08/10/2006 09/11/2015 Pain in limb 10/05/2005 08/10/2006 Generalized osteoarthrosis, involving hand 10/0511/01/2013 Nontraumatic rupture of extensor tendons of hand and wrist 10/05/2005 08/10/2006 documented as of this encounter (statuses as of 09/17/2022) [facility] History of Past illness Narrative* Problem Noted Date Resolved Date 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 ssed mood 03/12/2016 10/31/2021 Pes planus of both feet 06/23/2015 06/23/20 15 LGI bleed 10/24/2014 09/11/2015 Cellulitis and abscess of toe, unspecified 09/0710/06/2011 Other acquired deformity of toe 10/23/2010 11/01/2013 Type II or unspecified type diabetes mellitus with neurological manifestations, not stated as uncontrolled(250.60) 10/23/2010 11/01/2013 Neuropathy 09/25/2010 09/11/2015 Tinnitus 07/20/2007 04/07/2012 Unspecified urinary incontinence 08/10/2006 09/11/2015 Pain in limb 10/05/2005 08/10/2006 Generalized osteoarthrosis, involving hand 10/0511/01/2013 Nontraumatic rupture of extensor tendons of hand and wrist 10/05/2005 08/10/2006 documented as of this encounter (statuses as of 11/16/2022) [facility] History of Past illness Narrative* Problem Noted Date Resolved Date 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 ssed mood 03/12/2016 10/31/2021 Pes planus of both feet 06/23/2015 06/23/20 15 LGI bleed 10/24/2014 09/11/2015 Cellulitis and abscess of toe, unspecified 09/0710/06/2011 Other acquired deformity of toe 10/23/2010 11/01/2013 Type II or unspecified type diabetes mellitus with neurological manifestations, not stated as uncontrolled(250.60) 10/23/2010 11/01/2013 Neuropathy 09/25/2010 09/11/2015 Tinnitus 07/20/2007 04/07/2012 Unspecified urinary incontinence 08/10/2006 09/11/2015 Pain in limb 10/05/2005 08/10/2006 Generalized osteoarthrosis, involving hand 10/0511/01/2013 Nontraumatic rupture of extensor tendons of hand and wrist 10/05/2005 08/10/2006 documented as of this encounter (statuses as of 02/04/2023) [facility] History of Past illness Narrative* Problem Noted Date Resolved Date 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 ssed mood 03/12/2016 10/31/2021 Pes planus of both feet 06/23/2015 06/23/20 15 LGI bleed 10/24/2014 09/11/2015 Cellulitis and abscess of toe, unspecified 09/0710/06/2011 Other acquired deformity of toe 10/23/2010 11/01/2013 Type II or unspecified type diabetes mellitus with neurological manifestations, not stated as uncontrolled(250.60) 10/23/2010 11/01/2013 Neuropathy 09/25/2010 09/11/2015 Tinnitus 07/20/2007 04/07/2012 Unspecified urinary incontinence 08/10/2006 09/11/2015 Pain in limb 10/05/2005 08/10/2006 Generalized osteoarthrosis, involving hand 10/0511/01/2013 Nontraumatic rupture of extensor tendons of hand and wrist 10/05/2005 08/10/2006 documented as of this encounter (statuses as of 02/09/2023) [facility] History of Past illness Narrative* Problem Noted Date Resolved Date 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 ssed mood 03/12/2016 10/31/2021 Pes planus of both feet 06/23/2015 06/23/20 15 LGI bleed 10/24/2014 09/11/2015 Cellulitis and abscess of toe, unspecified 09/0710/06/2011 Other acquired deformity of toe 10/23/2010 11/01/2013 Type II or unspecified type diabetes mellitus with neurological manifestations, not stated as uncontrolled(250.60) 10/23/2010 11/01/2013 Neuropathy 09/25/2010 09/11/2015 Tinnitus 07/20/2007 04/07/2012 Unspecified urinary incontinence 08/10/2006 09/11/2015 Pain in limb 10/05/2005 08/10/2006 Generalized osteoarthrosis, involving hand 10/0511/01/2013 Nontraumatic rupture of extensor tendons of hand and wrist 10/05/2005 08/10/2006 documented as of this encounter (statuses as of 02/10/2023) [facility] History of Past illness Narrative* Problem Noted Date Resolved Date 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 ssed mood 03/12/2016 10/31/2021 Pes planus of both feet 06/23/2015 06/23/20 15 LGI bleed 10/24/2014 09/11/2015 Cellulitis and abscess of toe, unspecified 09/0710/06/2011 Other acquired deformity of toe 10/23/2010 11/01/2013 Type II or unspecified type diabetes mellitus with neurological manifestations, not stated as uncontrolled(250.60) 10/23/2010 11/01/2013 Neuropathy 09/25/2010 09/11/2015 Tinnitus 07/20/2007 04/07/2012 Unspecified urinary incontinence 08/10/2006 09/11/2015 Pain in limb 10/05/2005 08/10/2006 Generalized osteoarthrosis, involving hand 10/0511/01/2013 Nontraumatic rupture of extensor tendons of hand and wrist 10/05/2005 08/10/2006 documented as of this encounter (statuses as of 02/12/2023) [facility] History of Past illness Narrative* Problem Noted Date Resolved Date 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 ssed mood 03/12/2016 10/31/2021 Pes planus of both feet 06/23/2015 06/23/20 15 LGI bleed 10/24/2014 09/11/2015 Cellulitis and abscess of toe, unspecified 09/0710/06/2011 Other acquired deformity of toe 10/23/2010 11/01/2013 Type II or unspecified type diabetes mellitus with neurological manifestations, not stated as uncontrolled(250.60) 10/23/2010 11/01/2013 Neuropathy 09/25/2010 09/11/2015 Tinnitus 07/20/2007 04/07/2012 Unspecified urinary incontinence 08/10/2006 09/11/2015 Pain in limb 10/05/2005 08/10/2006 Generalized osteoarthrosis, involving hand 10/0511/01/2013 Nontraumatic rupture of extensor tendons of hand and wrist 10/05/2005 08/10/2006 documented as of this encounter (statuses as of 04/14/2023) [facility] History of Past illness Narrative* Problem Noted Date Resolved Date 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 ssed mood 03/12/2016 10/31/2021 Pes planus of both feet 06/23/2015 06/23/20 15 LGI bleed 10/24/2014 09/11/2015 Cellulitis and abscess of toe, unspecified 09/0710/06/2011 Other acquired deformity of toe 10/23/2010 11/01/2013 Type II or unspecified type diabetes mellitus with neurological manifestations, not stated as uncontrolled(250.60) 10/23/2010 11/01/2013 Neuropathy 09/25/2010 09/11/2015 Tinnitus 07/20/2007 04/07/2012 Unspecified urinary incontinence 08/10/2006 09/11/2015 Pain in limb 10/05/2005 08/10/2006 Generalized osteoarthrosis, involving hand 10/0511/01/2013 Nontraumatic rupture of extensor tendons of hand and wrist 10/05/2005 08/10/2006 documented as of this encounter (statuses as of 05/05/2023) [facility] History of Past illness Narrative* Problem Noted Date Resolved Date 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 ssed mood 03/12/2016 10/31/2021 Pes planus of both feet 06/23/2015 06/23/20 15 LGI bleed 10/24/2014 09/11/2015 Cellulitis and abscess of toe, unspecified 09/0710/06/2011 Other acquired deformity of toe 10/23/2010 11/01/2013 Type II or unspecified type diabetes mellitus with neurological manifestations, not stated as uncontrolled(250.60) 10/23/2010 11/01/2013 Neuropathy 09/25/2010 09/11/2015 Tinnitus 07/20/2007 04/07/2012 Unspecified urinary incontinence 08/10/2006 09/11/2015 Pain in limb 10/05/2005 08/10/2006 Generalized osteoarthrosis, involving hand 10/0511/01/2013 Nontraumatic rupture of extensor tendons of hand and wrist 10/05/2005 08/10/2006 documented as of this encounter (statuses as of 05/18/2023) [facility] History of Past illness Narrative* Problem Noted Date Diagnosed Date Resolved Date Adjustment disorder with mix ed anxiety and depressed mood 03/12/2016 10/31/2021 Pes planus of both feet 06/23/2015 08/07/2015 LGI bleed 10/24/2014 09/11/2015 Cellulitis and abscess of toe, unspecified 09/07/2011 10/06/2011 Other acquired deformity of toe 10/23/2010 11/01/2013 Type II or unspecified type diabetes mellitus with neurological manifestations, not stated as uncontrolled(250.60) 10/23/2010 11/01/2013 Neuropathy 09/25/2010 09/11/2015 Tinnitus 07/20/2007 04/07/2012 Unspecified urinary incontinence 08/10/2006 09/11/2015 Pain in limb 10/05/2005 08/10/2006 Generalized osteoarthrosis, involving hand 10/05/2005 11/01/2013 Nontraumatic rupture of exte nsor tendons of hand and wrist 10/05/2005 08/10/2006 documented as of this encounter (statuses as of 05/25/2023) [facility] History of Past illness Narrative* Problem Noted Date Diagnosed Date Resolved Date Adjustment disorder with mix ed anxiety and depressed mood 03/12/2016 10/31/2021 Pes planus of both feet 06/23/20150 07/2015 LGI bleed 10/24/2014 09/11/2015 Cellulitis and abscess of toe, unspecified 09/07/2011 10/06/2011 Other acquired deformity of toe 10/23/2010 11/01/2013 Type II or unspecified type diabetes mellitus with neurological manifestations, not stated as uncontrolled(250.60) 10/23/2010 11/01/2013 Neuropathy 09/25/2010 09/11/2015 Tinnitus 07/20/2007 04/07/2012 Unspecified urinary incontinence 08/10/2006 09/11/2015 Pain in limb 10/05/2005 08/10/2006 Generalized osteoarthrosis, involving hand 10/05/2005 11/01/2013 Nontraumatic rupture of exte nsor tendons of hand and wrist 10/05/2005 08/10/2006 documented as of this encounter (statuses as of 09/18/2023) [facility] History of Past illness Narrative* Problem Noted Date Diagnosed Date Resolved Date Adjustment disorder with mix ed anxiety and depressed mood 03/12/2016 10/31/2021 Pes planus of both feet 06/23/2015 08/0 07/2015 LGI bleed 10/24/2014 09/11/2015 Cellulitis and abscess of toe, unspecified 09/07/2011 10/06/2011 Other acquired deformity of toe 10/23/2010 11/01/2013 Type II or unspecified type diabetes mellitus with neurological manifestations, not stated as uncontrolled(250.60) 10/23/2010 11/01/2013 Neuropathy 09/25/2010 09/11/2015 Tinnitus 07/20/2007 04/07/2012 Unspecified urinary incontinence 08/10/2006 09/11/2015 Pain in limb 10/05/2005 08/10/2006 Generalized osteoarthrosis, involving hand 10/05/2005 11/01/2013 Nontraumatic rupture of exte nsor tendons of hand and wrist 10/05/2005 08/10/2006 documented as of this encounter (statuses as of 01/03/2024) [facility] History of Past illness Narrative* Problem Noted Date Diagnosed Date Resolved Date Adjustment disorder with mix ed anxiety and depressed mood 03/12/2016 10/31/2021 Pes planus of both feet 06/23/2015 080 07/2015 LGI bleed 10/24/2014 09/11/2015 Cellulitis and abscess of toe, unspecified 09/07/2011 10/06/2011 Other acquired deformity of toe 10/23/2010 11/01/2013 Type II or unspecified type diabetes mellitus with neurological manifestations, not stated as uncontrolled(250.60) 10/23/2010 11/01/2013 Neuropathy 09/25/2010 09/11/2015 Tinnitus 07/20/2007 04/07/2012 Unspecified urinary incontinence 08/10/2006 09/11/2015 Pain in limb 10/05/2005 08/10/2006 Generalized osteoarthrosis, involving hand 10/05/2005 11/01/2013 Nontraumatic rupture of exte nsor tendons of hand and wrist 10/05/2005 08/10/2006 documented as of this encounter (statuses as of 01/14/2024) [facility] History of Past illness Narrative* Problem Noted Date Diagnosed Date Resolved Date Adjustment disorder with mix ed anxiety and depressed mood 03/12/2016 10/31/2021 Pes planus of both feet 06/23/2015 08/0 07/2015 LGI bleed 10/24/2014 09/11/2015 Cellulitis and abscess of toe, unspecified 09/07/2011 10/06/2011 Other acquired deformity of toe 10/23/2010 11/01/2013 Type II or unspecified type diabetes mellitus with neurological manifestations, not stated as uncontrolled(250.60) 10/23/2010 11/01/2013 Neuropathy 09/25/2010 09/11/2015 Tinnitus 07/20/2007 04/07/2012 Unspecified urinary incontinence 08/10/2006 09/11/2015 Pain in limb 10/05/2005 08/10/2006 Generalized osteoarthrosis, involving hand 10/05/2005 11/01/2013 Nontraumatic rupture of exte nsor tendons of hand and wrist 10/05/2005 08/10/2006 documented as of this encounter (statuses as of 02/19/2024) [facility] History of Past illness Narrative* Problem Noted Date Diagnosed Date Resolved Date Adjustment disorder with mix ed anxiety and depressed mood 03/12/2016 10/31/2021 Pes planus of both feet 06/23/2015 08/0 07/2015 LGI bleed 10/24/2014 09/11/2015 Cellulitis and abscess of toe, unspecified 09/07/2011 10/06/2011 Other acquired deformity of toe 10/23/2010 11/01/2013 Type II or unspecified type diabetes mellitus with neurological manifestations, not stated as uncontrolled(250.60) 10/23/2010 11/01/2013 Neuropathy 09/25/2010 09/11/2015 Tinnitus 07/20/2007 04/07/2012 Unspecified urinary incontinence 08/10/2006 09/11/2015 Pain in limb 10/05/2005 08/10/2006 Generalized osteoarthrosis, involving hand 10/05/2005 11/01/2013 Nontraumatic rupture of exte nsor tendons of hand and wrist 10/05/2005 08/10/2006 documented as of this encounter (statuses as of 02/25/2024) [facility] Type 2 diabetes, controlled, with peripheral neuropathy (HCC) Type II or unspecified type diabetes mellitus with neurological manifestations, not stated as uncontrolled Essential hypertension Unspecified essential hypertension Hyperlipidemia, unspecified hyperlipidemia type [facility] in this encounter [facility] Diagnosis Type 2 diabetes, controlled, with peripheral neuropathy (HCC)- Primary Type II or unspecified type diabetes mellitus with neurological manifestations, not stated as uncontrolled Unsteady gait Abnormality of gait Urge incontinence of urine Urge incontinence Nocturia Hyperkalemia Hyperpotassemia documented in this encounter [facility] noteNo assessment information availableWTriHealth [facility] Work Phone: Evaluation note* Diagnosis Onset Date Resolution Status Abnormality of gait and mobility chronic Anemia chronic Mild cognitive impairment ch ronic Polyneuropathy chronic Vitamin d deficiency chronic Neuropathy noneactive [facility] Work Phone: Evaluation note* Diagnosis Urge incontinence of urine Urge incontinence Nocturia [facility] Diagnosis Urge incontinence of urine- Primary Urge incontinence Nocturia Medication side effects Unspecified adverse effect of unspecified drug, medicinal and biological substance Dysuria Need for COVID-19 vaccine documented in this encounter [facility]* Diagnosis Hyperlipidemia, unspecified hyperlipidemia type Dysuria documented in this [facility]* Diagnosis Onychomycosis- Primary Dermatophytosis of nail Type 2 diabetes, controlled, with peripheral neuropathy (HCC) Type II or unspecified type diabetes mellitus with neurological manifestations, not stated as uncontrolled Pain in toe of right foot Pain in limb Pain in toe of left foot Pain in limb Posterior tibial tendon dysfunction (PTTD) of right lower extremity Diabetic ulcer of left midfoot associated with type 2 diabetes mellitus, 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) Hammer toes of both feet documented [facility] this [facility]* Diagnosis Type 2 diabetes, controlled, with peripheral neuropathy (HCC)- Primary Type II or unspecified type diabetes mellitus with neurological manifestations, not stated as uncontrolled Posterior tibial tendon dysfunction (PTTD) of right lower extremity [facility]* Diagnosis Hypercalcemia- Primary [facility]* Diagnosis Hypercalcemia- Primary [facility]* Diagnosis Hypercalcemia- Primary [facility]* Diagnosis Medicare annual wellness visit, subsequent- Primary Routine general medical examination at a health care facility Encounter for immunization Need for other specified prophylactic vaccination against single bacterial disease [facility] Diagnosis Type 2 diabetes, controlled, with peripheral neuropathy (HCC) Type II or unspecified type diabetes mellitus with neurological manifestations, not stated as uncontrolled [facility]* Diagnosis Onset Date Resolution Status Fatigue acute Abnormality of gait and mobility chronic Mild cognitive impairment ch ronic Polyneuropathy chronic Urinary frequency chronic [facility] Work Phone: Evaluation note* Diagnosis Urinary frequency- Primary Acute cystitis with hematuria Acute cystitis [facility] Diagnosis Onset Date Resolution Status Fatigue acute Abnormality of gait and mobility chronic Mild cognitive impairment ch ronic Polyneuropathy chronic Urinary frequency chronic Hypercalcemia acute Fatigue acute [facility] Work Phone: Evaluation note* Diagnosis Type 2 diabetes, controlled, with peripheral neuropathy (HCC) Type II or unspecified type diabetes mellitus with neurological manifestations, not stated as uncontrolled Essential hypertension Unspecified essential hypertension [facility]* Diagnosis Type 2 diabetes, controlled, with peripheral neuropathy (HCC)- Primary Type II or unspecified type diabetes mellitus with neurological manifestations, not stated as uncontrolled [facility] Diagnosis Type 2 diabetes, controlled, with peripheral neuropathy (HCC)- Primary Type II or unspecified type diabetes mellitus with neurological manifestations, not stated as uncontrolled Essential hypertension Unspecified essential hypertension Dysuria Generalized osteoarthrosis Generalized osteoarthrosis, unspecified site [facility] Diagnosis Onset Date Resolution Status Hypercalcemia acute Fatigue acute Abnormality of gait and mobility chronic Polyneuropathy chronic [facility] Work Phone: Evaluation note* Diagnosis Onset Date Resolution Status Abnormality of gait and mobility chronic Polyneuropathy chronic [facility] Work Phone: Evaluation note* Diagnosis Onychomycosis- Primary Dermatophytosis of nail Pain in toe of right foot Pain in limb Pain in toe of left foot Pain in limb Type 2 diabetes, controlled, with peripheral neuropathy (HCC) Type II or unspecified type diabetes mellitus with neurological manifestations, not stated as uncontrolled [facility]* Diagnosis Onychomycosis- Primary Dermatophytosis of nail Pain in toe of right foot Pain in limb Pain in toe of left foot Pain in limb Type 2 diabetes, controlled, with peripheral neuropathy (HCC) Type II or unspecified type diabetes mellitus with neurological manifestations, not stated as uncontrolled Callus of foot Corns and callosities documented in this encounter [facility] note* Diagnosis Type 2 diabetes, controlled, with peripheral neuropathy (HCC) Type II or unspecified type diabetes mellitus with neurological manifestations, not stated as uncontrolled [facility]* Diagnosis Hyperlipidemia, unspecified hyperlipidemia type [facility]* Diagnosis Essential hypertension Unspecified essential hypertension Type 2 diabetes, controlled, with peripheral neuropathy (HCC) Type II or unspecified type diabetes mellitus with neurological manifestations, not stated as uncontrolled [facility]* Diagnosis Type 2 diabetes, controlled, with peripheral neuropathy (HCC)- Primary Type II or unspecified type diabetes mellitus with neurological manifestations, not stated as uncontrolled Essential hypertension Unspecified essential hypertension Hyperlipidemia, unspecified hyperlipidemia type 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) documented [facility]* Diagnosis Medicare annual wellness visit, subsequent- Primary Routine general medical examination at a health care facility Type 2 diabetes, controlled, with peripheral neuropathy (HCC) Type II or unspecified type diabetes mellitus with neurological manifestations, not stated as uncontrolled Essential hypertension Unspecified essential hypertension Hyperlipidemia, unspecified hyperlipidemia type Encounter for immunization Need for other specified prophylactic vaccination against single bacterial disease [facility]* Diagnosis Onychomycosis- Primary Dermatophytosis of nail Pain in toe of right foot Pain in limb Pain in toe of left foot Pain in limb Type 2 diabetes, controlled, with peripheral neuropathy (HCC) Type II or unspecified type diabetes mellitus with neurological manifestations, not stated as uncontrolled Callus of foot Corns and callosities [facility]* Diagnosis Hyperlipidemia, unspecified hyperlipidemia type Type 2 diabetes, controlled, with peripheral neuropathy (HCC) Type II or unspecified type diabetes mellitus with neurological manifestations, not stated as uncontrolled [facility]* Diagnosis Hyperlipidemia, unspecified hyperlipidemia type [facility]* Diagnosis Onset Date Resolution Status Admit Date Abnormality of gait and mobility chr onic April 17, 2025 1:52pm Mild cognitive impairment chronic April 17, 2025 1:52pm Polyneuropathy chronic April 17, 2025 1:52pm [facility] Work Phone: Reason for referral (narrative)No reason for referral [facility]: Advance Directives Documents on File Type Date Recorded Patient Printing Grey Cloth Tender Expl anation Advance Directive(s) 01/09/2015 10:48 AM Advance Directive(s) 01/09/2015 10:52 AM Documents on File Type Date Recorded Patient Printing Grey Cloth Tender Expl anation Advance Directive(s) 01/09/2015 10:48 AM Advance Directive(s) 01/09/2015 10:52 AM Documents on File Type Date Recorded Patient Printing Grey Cloth Tender Expl anation Advance Directive(s) 01/09/2015 10:52 AM Advance Directive(s) 01/09/2015 10:48 AM Chief Complaint and Reason for Visit Chief Complaint PAIN- COPY PCP Chief Complaint PAIN- COPY PCP Neuropathy EORDER Reason for Visit Abnormality of gait and mobility Anemia Mild cognitive impairment Polyneuropathy Vitamin d deficiency Neuropathy Chief Complaint PAIN- COPY PCP Neuropathy EORDER MILD CONGNITIVE IMPAIRMENT Reason for Visit Abnormality of gait and mobility Anemia Mild cognitive impairment Polyneuropathy Vitamin d deficiency Neuropathy Chief Complaint PAIN- COPY PCP 4 M FU EORDER Reason for Visit Fatigue Abnormality of gait and mobility Mild cognitive impairment Polyneuropathy Urinary frequency Chief Complaint PAIN- COPY PCP 4 M FU EORDER Hypercalcemia B12 inject PAIN- COPY PCP Reason for Visit Fatigue Abnormality of gait and mobility Mild cognitive impairment Polyneuropathy Urinary frequency Hypercalcemia Fatigue Chief Complaint Hypercalcemia B12 inject PAIN- COPY PCP 4 M FU EORDER Reason for Visit Hypercalcemia Fatigue Abnormality of gait and mobility Polyneuropathy Chief Complaint 4 M FU EORDER PAIN- COPY PCP Reason for Visit Abnormality of gait and mobility Polyneuropathy Chief Complaint LABWORK PAIN- COPY PCP Chief Complaint Admit Date PAIN- COPY PCP October 17, 2024 1 2:33pm PAIN- COPY PCP January 19, 2025 12:4 7pm Chief Complaint Admit Date PAIN- COPY PCP January 19, 2025 12:4 7pm 1 Y FU April 17, 2025 1:52p m Reason for Visit Admit Date Abnormality of gait and mobility April 1:52pm Mild cognitive impairment April 17, 2025 1:52pm Polyneuropathy April 17, 2025 1:52p m Urinary frequency April 17, 2025 1:52p m Reason for Visit Admit Date Abnormality of gait and mobility April 1:52pm Mild cognitive impairment April 17, 2025 1:52pm Polyneuropathy April 17, 2025 1:52p m Reason for Referral Specialty Diagnoses / Procedures Referred By Contac t Referred To Contact Endocrinology Diagnoses Hypercalcemia Procedures CONSULT TO ENDOCRINOLOGY OFFICE/OUTPATIENT NEW HIGH MDM 60-74 MINUTES Older, Sandra, MANAGEMENT DEVELOPMENT SPECIALIST.MEDICAL RESEARCH ASSISTANT [address] [place] [address] Referral ID Status Reason Start Date Expiration Date Visits Requested Visits Authorized [id number] Authorized PCP Requested Referral 2 09/14/2023 1 1 Summary Purpose Family History No Family History Records Found Additional Source Comments Source Comments (unrecognize d section and content) In the event this informatio n is protected by the Federal Confidentiality of Alcohol and Drug Abuse Patient Records regulations: The Federal rules restrict any use of the information to criminally investigate or prosecute any alcohol or drug abuse patient.[facility] event this information is protected by the Federal Confidentiality of Alcohol and Drug Abuse Patient Records regulations: The Federal rules restrict any use of the information to criminally investigate or prosecute any alcohol or drug abuse patient.[facility] the event this information is protected by the Federal Confidentiality of Alcohol and Drug Abuse Patient Records regulations: The Federal rules restrict any use of the information to criminally investigate or prosecute any alcohol or drug abuse patient.[facility] the event this information is protected by the Federal Confidentiality of Alcohol and Drug Abuse Patient Records regulations: The Federal rules restrict any use of the information to criminally investigate or prosecute any alcohol or drug abuse patient.[facility] the event this information is protected by the Federal Confidentiality of Alcohol and Drug Abuse Patient Records regulations: The Federal rules restrict any use of the information to criminally investigate or prosecute any alcohol or drug abuse patient.[facility] the event this information is protected by the Federal Confidentiality of Alcohol and Drug Abuse Patient Records regulations: The Federal rules restrict any use of the information to criminally investigate or prosecute any alcohol or drug abuse patient.[facility] the event this information is protected by the Federal Confidentiality of Alcohol and Drug Abuse Patient Records regulations: The Federal rules restrict any use of the information to criminally investigate or prosecute any alcohol or drug abuse patient.[facility] the event this information is protected by the Federal Confidentiality of Alcohol and Drug Abuse Patient Records regulations: The Federal rules restrict any use of the information to criminally investigate or prosecute any alcohol or drug abuse patient.[facility] the event this information is protected by the Federal Confidentiality of Alcohol and Drug Abuse Patient Records regulations: The Federal rules restrict any use of the information to criminally investigate or prosecute any alcohol or drug abuse patient.[facility] the event this information is protected by the Federal Confidentiality of Alcohol and Drug Abuse Patient Records regulations: The Federal rules restrict any use of the information to criminally investigate or prosecute any alcohol or drug abuse patient.[facility] the event this information is protected by the Federal Confidentiality of Alcohol and Drug Abuse Patient Records regulations: The Federal rules restrict any use of the information to criminally investigate or prosecute any alcohol or drug abuse patient.[facility] the event this information is protected by the Federal Confidentiality of Alcohol and Drug Abuse Patient Records regulations: The Federal rules restrict any use of the information to criminally investigate or prosecute any alcohol or drug abuse patient.[facility] the event this information is protected by the Federal Confidentiality of Alcohol and Drug Abuse Patient Records regulations: The Federal rules restrict any use of the information to criminally investigate or prosecute any alcohol or drug abuse patient.[facility] the event this information is protected by the Federal Confidentiality of Alcohol and Drug Abuse Patient Records regulations: The Federal rules restrict any use of the information to criminally investigate or prosecute any alcohol or drug abuse patient.[facility] the event this information is protected by the Federal Confidentiality of Alcohol and Drug Abuse Patient Records regulations: The Federal rules restrict any use of the information to criminally investigate or prosecute any alcohol or drug abuse patient.[facility] the event this information is protected by the Federal Confidentiality of Alcohol and Drug Abuse Patient Records regulations: The Federal rules restrict any use of the information to criminally investigate or prosecute any alcohol or drug abuse patient.[facility] the event this information is protected by the Federal Confidentiality of Alcohol and Drug Abuse Patient Records regulations: The Federal rules restrict any use of the information to criminally investigate or prosecute any alcohol or drug abuse patient.[facility] the event this information is protected by the Federal Confidentiality of Alcohol and Drug Abuse Patient Records regulations: The Federal rules restrict any use of the information to criminally investigate or prosecute any alcohol or drug abuse patient.[facility] the event this information is protected by the Federal Confidentiality of Alcohol and Drug Abuse Patient Records regulations: The Federal rules restrict any use of the information to criminally investigate or prosecute any alcohol or drug abuse patient.[facility] the event this information is protected by the Federal Confidentiality of Alcohol and Drug Abuse Patient Records regulations: The Federal rules restrict any use of the information to criminally investigate or prosecute any alcohol or drug abuse patient.[facility] the event this information is protected by the Federal Confidentiality of Alcohol and Drug Abuse Patient Records regulations: The Federal rules restrict any use of the information to criminally investigate or prosecute any alcohol or drug abuse patient.[facility] the event this information is protected by the Federal Confidentiality of Alcohol and Drug Abuse Patient Records regulations: The Federal rules restrict any use of the information to criminally investigate or prosecute any alcohol or drug abuse patient.[facility] Institute[facility] the event this information is protected by the Federal Confidentiality of Alcohol and Drug Abuse Patient Records regulations: The Federal rules restrict any use of the information to criminally investigate or prosecute any alcohol or drug abuse patient.[facility] the event this information is protected by the Federal Confidentiality of Alcohol and Drug Abuse Patient Records regulations: The Federal rules restrict any use of the information to criminally investigate or prosecute any alcohol or drug abuse patient.[facility] Institute[facility] the event this information is protected by the Federal Confidentiality of Alcohol and Drug Abuse Patient Records regulations: The Federal rules restrict any use of the information to criminally investigate or prosecute any alcohol or drug abuse patient.[facility] InstituteIn the event this information is protected by the Federal Confidentiality of Alcohol and Drug Abuse Patient Records regulations: The Federal rules restrict any use of the information to criminally investigate or prosecute any alcohol or drug abuse patient.[facility] the event this information is protected by the Federal Confidentiality of Alcohol and Drug Abuse Patient Records regulations: The Federal rules restrict any use of the information to criminally investigate or prosecute any alcohol or drug abuse patient.[facility] InstituteIn the event this information is protected by the Federal Confidentiality of Alcohol and Drug Abuse Patient Records regulations: The Federal rules restrict any use of the information to criminally investigate or prosecute any alcohol or drug abuse patient.[facility] InstituteIn the event this information is protected by the Federal Confidentiality of Alcohol and Drug Abuse Patient Records regulations: The Federal rules restrict any use of the information to criminally investigate or prosecute any alcohol or drug abuse patient.[facility] InstituteIn the event this information is protected by the Federal Confidentiality of Alcohol and Drug Abuse Patient Records regulations: The Federal rules restrict any use of the information to criminally investigate or prosecute any alcohol or drug abuse patient.[facility] InstituteIn the event this information is protected by the Federal Confidentiality of Alcohol and Drug Abuse Patient Records regulations: The Federal rules restrict any use of the information to criminally investigate or prosecute any alcohol or drug abuse patient.[facility] InstituteIn the event this information is protected by the Federal Confidentiality of Alcohol and Drug Abuse Patient Records regulations: The Federal rules restrict any use of the information to criminally investigate or prosecute any alcohol or drug abuse patient.[facility]In the event this information is protected by the Federal Confidentiality of Alcohol and Drug Abuse Patient Records regulations: The Federal rules restrict any use of the information to criminally investigate or prosecute any alcohol or drug abuse patient.[facility]In the event this information is protected by the Federal Confidentiality of Alcohol and Drug Abuse Patient Records regulations: The Federal rules restrict any use of the information to criminally investigate or prosecute any alcohol or drug abuse patient.[facility] InstituteIn the event this information is protected by the Federal Confidentiality of Alcohol and Drug Abuse Patient Records regulations: The Federal rules restrict any use of the information to criminally investigate or prosecute any alcohol or drug abuse patient.[facility] InstituteIn the event this information is protected by the Federal Confidentiality of Alcohol and Drug Abuse Patient Records regulations: The Federal rules restrict any use of the information to criminally investigate or prosecute any alcohol or drug abuse patient.[facility] Reason for Visit (unrecogniz ed section and content) Reason Comments Patient Question Reason Comments Opened In Error Reason Comments Prescription Refills Reason Comments F/U 6 months Reason Comments patient information Reason Onset Date Comments Refill Request 06/03/2022 Reason Comments Insurance Authorization Reason Comments Medication Problem Reason Comments Medication Follow-up Reason Comments urine culture results Reason Comments Established Patient Follow Up Diabetic Foot Care Reason Comments Results Reason Comments Results Reason Comments Beauty Endocrinology requesting rec ords Reason Comments Medicare Wellness Exam Specialty Diagnoses / Procedures Referred By Contac t Referred To Contact Internal Medicine / INTERNAL MEDICINE Diagnoses Follow-up exam, 3-6 months since previous exam Annual Medicare Wellness w/6 month follow-up Procedures OFFICE/OUTPATIENT ESTABLISHED MOD MDM 30-39 MIN 4C EST WELL Fitz Walters MD [address] [place] [address] Sandra Mahoney, MANAGEMENT DEVELOPMENT SPECIALIST.MEDICAL RESEARCH ASSISTANT [address] [place] [address] Referral ID Status Reason Start Date Expiration Date V isits Requested Visits Authorized [id number] Authorized 11/10/2022 02/08/2023 3 3 Reason Comments Refill Request Reason Comments Patient Update Reason Comments Urinary Frequency With burning x2 days Reason Comments Orders Reason Comments Follow Up Nail care Diabetic Foot Check Reason Comments Epistaxis Reason Comments Established Patient Diabetic Foot Care Reason Onset Date Comments Refill Request 02/18/2024 Reason Onset Date Comments Refill Request 02/24/2024 Reason Onset Date Comments Refill Request 04/17/2024 Reason Comments Medicare Wellness Exam F/U 6 months Specialty Diagnoses / Procedures Referred By Lucille vasquez Referred To Contact Internal Medicine / INTERNAL MEDICINE Diagnoses Follow-up exam, 3-6 months since previous exam Annual Medicare Wellness/6 month follow-up Procedures OFFICE/OUTPATIENT ESTABLISHED HIGH MDM 40 MIN 4C EST WELL Sandra Sigala, MANAGEMENT DEVELOPMENT SPECIALIST.MEDICAL RESEARCH ASSISTANT [address] [place] [address] Sandra Sigala, MANAGEMENT DEVELOPMENT SPECIALIST.MEDICAL RESEARCH ASSISTANT [address] [place] [address] Referral ID Status Reason Start Date Expiration Date V isits Requested Visits Authorized [id number] Authorized 11/14/2024 11/14/2025 99 99 Reason Comments Established Patient Nail Care Pain Nail Care Reason Onset Date Comments Refill Request 02/05/2025 Reason Onset Date Comments Refill Request 04/02/2025 Care Teams (unrecognized sec tion and content) Rough Patcher Relationship Specialty Start Date End Date Fitz Walters MD [address] [place] [address] PCP - General 09/08/02 Rough Patcher Relationship Specialty Start Date End Date Fitz Walters MD [address] [place] [id number] PCP - General 09/08/02 Rough Patcher Relationship Specialty Start Date End Date Fitz Walters MD [address] [place] [address] PCP - General 09/08/02 Rough Patcher Relationship Specialty Start Date End Date Fitz Walters MD [address] [place] [address] PCP - General 09/08/02 Rough Patcher Relationship Specialty Start Date End Date Fitz Walters MD [address] [place] [address] PCP - General 09/08/02 Rough Patcher Relationship Specialty Start Date End Date Fitz Walters MD [address] [place] [address], [place] [address] PCP - General 09/08/02 Rough Patcher Relationship Specialty Start Date End Date Fitz Walters MD [address] [place] [address], [place] [address] PCP - General 09/08/02 Rough Patcher Relationship Specialty Start Date End Date Fitz Walters MD [facility] [place] [address] PCP - General 09/08/02 Rough Patcher Relationship Specialty Start Date End Date Fitz Walters MD [address] [place] [address] [place] [address] PCP - General 09/08/02 Rough Patcher Relationship Specialty Start Date End Date Fitz Walters MD [facility] [place] [address] PCP - General 09/08/02 Rough Patcher Relationship Specialty Start Date End Date Fitz Walters MD [address] [place] [address], [place] [address] PCP - General 09/08/02 Rough Patcher Relationship Specialty Start Date End Date Fitz Walters MD [address] [place] [address], [place] [address] PCP - General 09/08/02 Team Status: Active Member Role Status Dates Dr. Fitz Walters MD Family Provider Active Dr. Fitz Walters MD Primary Care Provider Active Team Status: Inactive Member Role Status Dates Dr. Fitz Walters MD Primary Care Provider Active Dr. Laurence Hinds MD Attending Provider, Referring Provider Active Team Status: Inactive Member Role Status Dates Dr. Fitz Walters MD Primary Care Provider, Refer ring Provider Active Dr. Chong Cantu MD Attending Provider Active Team Status: Inactive Member Role Status Dates Dr. Fitz Walters MD Primary Care Provider Active Dr. Chong Cantu MD Attending Provider, Referring Provider Active Rough Patcher Relationship Specialty Start Date End Date Fitz Walters MD [address] [place] [address] PCP - General 09/08/02 Team Status: Inactive Member Role Status Dates Dr. Fitz Walters MD Primary Care Provider, Refer ring Provider Active Dr. Liban Leiva MD Attending Provider Active Rough Patcher Relationship Specialty Start Date End Date Fitz Walters MD [address] [place] [address] PCP - General 09/08/02 Rough Patcher Relationship Specialty Start Date End Date Fitz Walters MD [address] [place] [address] PCP - General 09/08/02 Rough Patcher Relationship Specialty Start Date End Date Fitz Walters MD [address] [place] [address] PCP - General 09/08/02 Rough Patcher Relationship Specialty Start Date End Date Fitz Walters MD [address] [place] [address] PCP - General 09/08/02 Rough Patcher Relationship Specialty Start Date End Date Fitz Walters MD [address] [place] [address] PCP - General 09/08/02 Rough Patcher Relationship Specialty Start Date End Date Fitz Walters MD [address] [place] [address] PCP - General 09/08/02 Team Status: Inactive Member Role Status Dates Dr. Fitz Walters MD Primary Care Provider Active Dr. Laurence Hinds MD Attending Provider Active Rough Patcher Relationship Specialty Start Date End Date Fitz Walters MD [address] [place] [address] PCP - General 09/08/02 Rough Patcher Relationship Specialty Start Date End Date Fitz Walters MD [address] [place] [address] PCP - General 09/08/02 Rough Patcher Relationship Specialty Start Date End Date Fitz Walters MD [address] [place] [address] PCP - General 09/08/02 Rough Patcher Relationship Specialty Start Date End Date Fitz Walters MD [address] [facility] [place] [address] PCP - General 09/08/02 Sandra Sigala, MANAGEMENT DEVELOPMENT SPECIALIST.MEDICAL RESEARCH ASSISTANT [address] [facility] [place] [address] [employer] [facility] 10/23/24 Rough Patcher Relationship Specialty Start Date End Date Fitz Walters MD [address] [facility] [place], [place] [id number] PCP - General 09/08/02 Sandra Sigala, MANAGEMENT DEVELOPMENT SPECIALIST.MEDICAL RESEARCH ASSISTANT [address] [facility] [place], [place] [id number] [employer] [facility] 10/23/24 Rough Patcher Relationship Specialty Start Date End Date Fitz Walters MD [address] [facility] [place], [place] [address] PCP - General 09/08/02 Sandra Sigala, MANAGEMENT DEVELOPMENT SPECIALIST.MEDICAL RESEARCH ASSISTANT [address] [facility] [place], [place] [address] [facility] Internal Medicine 10/23/24 Team Status: Inactive Member Role Status Dates Dr. Fitz Walters MD Primary Care Provider Active Start: October 17, 2024 End: October 17, 2024 Dr. Laurence Hinds MD Attending Provider Active Start: October 17, 2024 End: October 17, 2024 Dr. Laurence Hinds MD Referring Provider Active Start: October 17, 2024 End: October 17, 2024 Team Status: Inactive Member Role Status Dates Dr. Fitz Walters MD Primary Care Provider Active Start: January 19, 2025 End: January 19, 2025 Dr. Laurence Hinds MD Attending Provider Active Start: January 19, 2025 End: January 19, 2025 Dr. Laurence Hinds MD Referring Provider Active Start: January 19, 2025 End: January 19, 2025 Rough Patcher Relationship Specialty Start Date End Date Fitz Walters MD [address] [facility] [place], [place] [address] PCP - General 09/08/02 Sandra Sigala, MANAGEMENT DEVELOPMENT SPECIALIST.MEDICAL RESEARCH ASSISTANT [address] [place] [address] [employer] [facility] 10/23/24 Team Status: Active Member Role Status Dates Dr. Fitz Walters MD Primary Care Provider Active Team Status: Inactive Member Role Status Dates Dr. Fitz Walters MD Primary Care Provider Active Start: April 17, 2025 End: April 17, 2025 Dr. Fitz Walters MD Referring Provider Active Start: April 17, 2025 End: April 17, 2025 Dr. Chong Cantu MD Attending Provider Active Start: April 17, 2025 End: April 17, 2025 Team Status: Inactive Member Role Status Dates Dr. Fitz Walters MD Primary Care Provider Active Start: April 17, 2025 End: April 17, 2025 Dr. Laurence Hinds MD Attending Provider Active Start: April 17, 2025 End: April 17, 2025 Dr. Laurence Hinds MD Referring Provider Active Start: April 17, 2025 End: April 17, 2025 Team Status: Active Member Role Status Dates Dr. Fitz Walters MD Primary Care Provider Active Start: April 17, 2025 Dr. Laurence Hinds MD Attending Provider Active Start: April 17, 2025 Dr. Laurence Hinds MD Referring Provider Active Start: April 17, 2025 Goals (unrecognized section and content) Goals may be documented in a n alternate sectionGoals may be documented in an alternate sectionGoals may be documented in an alternate sectionGoals may be documented in an alternate sectionGoals may be documented in an alternate sectionGoals may be documented in an alternate sectionGoals may be documented in an alternate sectionGoals may be documented in an alternate sectionGoals may be documented in an alternate sectionGoals may be documented in an alternate sectionGoals may be documented in an alternate sectionGoals may be documented in an alternate section INFORMATION SOURCE (unrecogn ized section and content) DATE CREATED AUTHOR 12/01/2024 [facility] DATE CREATED AUTHOR AUTHOR'S DEL RAMAN 04/21/2025 [facility] FOR RECORDS PERTAINING TO PATIENTS WHO ARE OR HAVE BEEN ENROLLED IN A CHEMICAL DEPENDENCY/SUBSTANCEABUSE PROGRAM, SOME INFORMATION MAY BE OMITTED. This clinical summary was aggregated from multiple sources. Caution should be exercised in using it in the provision of clinical care. This summary normalizes information from multiple sources, and as a consequence, information in this document may materially change the coding, format and clinical context of patient data. In addition, data may be omitted in some cases. CLINICAL DECISIONS SHOULD BE BASED ON THE PRIMARY CLINICAL RECORDS. [employer] [facility]. provides no warranty or guarantee of the accuracy or completeness of information in this document.
--- OUTSIDE RECORDS SUMMARY | 2025-05-10 22:29 | XMS RPT_ITS | CCD ---
Author Organization [facility] Care Team Providers Care Glove Tagger Name Role Phone Fitz Walters MD Primary [...] Fitz Walters MD Primary Care Provider Corin CRIMINOLOGY TEACHER.BOBBIN SORTER, Sandra M Unavailable WALTERS, KAREN Primary Care Unavailable TESTRAKE, ANGELINA Referring Unavailable TESTRAKE, ANGELINA Attending Unavailable WALTERS, KAREN Primary Care Unavailable SELF Referring Unavailable TESTRAKE, ANGELINA Attending Unavailable WALTERS, KAREN Primary Care Unavailable CORIN, SNADRA M Referring Unavailable CORIN, SANDRA M Attending [...] Romeo RITCHIE, Dr. Byrnes Referring Provider [phone] Alondra RITCHIE, Dr. Schwarz Attending Provider Lizet, Laurence Referring Unavailable Vellanki, Laurence Attending Unavailable Walters, Fitz Primary Care Unavailable Walters, Fitz Primary Care Unavailable Chong Cantu Attending Unavailable Walters, Fitz Referring Unavailable Walters, Fitz Primary Care Unavailable Vellanki, Laurence Attending Unavailable Vellanki, Laurence Referring Unavailable Vellanki, Laurence Referring Unavailable Vellanki, Luarence Attending Unavailable Walters, Fitz Primary Care Unavailable Vellanki, Laurence Attending Unavailable Vellanki, Laurence Referring Unavailable Walters, Fitz Primary Care Unavailable Vellanki, Laurence Attending Unavailable Vellanki, Laurence Referring Unavailable Walters, Fitz Primary Care Unavailable Allergies Allergy Classification Reported Allergen(s) Allergy Type Date of Onset Reaction(s) Facility Sulfur (1 source) Sulfur Drug Allergy 7 [facility] (20 sources) Sulfur; Translations: [SULFUR] Drug Allergy 7 [facility] (12 sources) Sulfonamides (Antibiotic); Translations: [Sulfa (Sulfonamide Antibiotics)] Propensity to adverse reactions 2 [facility] Medications Current Medications Medication Drug Class(es) Dates [...] on above: Take 1 capsule by mo [facility] twice daily with meals for 7 days. [...] on above: Take 1 capsule by mo [facility] twice daily. latanoprost 0.05 mg/ml ophthalmic solution [...] Auto (Unsp spec) [#/Vol] 1.60 10*3/uL 0.83-4.51 [facility] Absolute neutrophil countOrd ered By: Laurence Hinds on 04-17-2025 Neutrophils (Bld) [#/Vol] 3.4 10*3/uL 2.0-7.7 [facility] Anion gap in Serum or Plasma Ordered By: Laurence Hinds on 04-17-2025 Anion gap [Moles/Vol] 11 mmol/L 5- [facility] Automated lymphocyte count a s percentage of total leukocytesOrdered By: Laurence Hinds on 04-17-2025 Lymphocytes/100 WBC Auto (Unsp spec) 27.9 % 19- [facility] BUN/creatinine ratioOrdered By: Laurence Hinds on 04-17-2025 Urea nitrogen/Creatinine [Mass ratio] 27.9 mg/mg High 10- [facility] Basophil percentageOrdered B y: Laurence Hinds on 04-17-2025 Basophils/100 WBC (Bld) 0.7 % 0-1 [facility] Bilirubin, totalOrdered By: Laurence Hinds on 04-17-2025 Bilirubin [Mass/Vol] 0.24 mg/dL 0.00-1.30 [facility] CBC W/Diff, Automatedon Absolute Lymph 1.60 X10 3/uL Normal 0.83-4.51 [facility] Comment on above: Performed By: #### L 100.0100, L500.4050 #### [facility] Laboratory [address] [place], [address] Absolute Neut 3.4 X10 3/uL Normal 2.0-7.7 [facility] Comment on above: Performed By: #### L 100.0100, L500.4050 #### [facility] Laboratory [address] [place], [address] Basophils/100 WBC (Bld) 0.7 % Normal 0-1 [facility] Comment on above: Performed By: #### L 100.0100, L500.4050 #### [facility] Laboratory [address] [place], [address] Eosinophils/100 WBC (Bld) 2.6 % Normal 0-5 [facility] Comment on above: Performed By: #### L 100.0100, L500.4050 #### [facility] Laboratory [address] [place], [address] Erythrocyte distribution width (RBC) [Ratio] 13.9 % Normal 11.6-14.6 [facility] Comment on above: Performed By: #### L 100.0100, L500.4050 #### [facility] Laboratory [address] [place], [address] Hematocrit (Bld) [Volume fraction] 38.3 % Normal 37-47 [facility] Comment on above: Performed By: #### L 100.0100, L500.4050 #### [facility] [address] [place], [address] Hemoglobin (Bld) [Mass/Vol] 12.0 g/dL Normal 12.0-15.0 [facility] Comment on above: Performed By: #### L 100.0100, L500.4050 #### [facility] Laboratory [address] [place], [address] IG% 0.200 Normal 0.0-0.9 [facility] Comment on above: Result Comment: IG% - Immature Granulocytes (promyelocytes, myelocytes and metamyelocytes) > 1% indicates that a LEFT SHIFT is Present. Performed By: #### L 100.0100, L500.4050 #### [facility] [address] [place], [address] Lymphocytes/100 WBC (Bld) 27.9 % Normal 19-41 [facility] Comment on above: Performed By: #### L 100.0100, L500.4050 #### [facility] [address] [place], [address] MCH (RBC) [Entitic mass] 31.4 pg Normal 27.0-32.0 [facility] Comment on above: Performed By: #### L 100.0100, L500.4050 #### [facility] [address] [place], [address] MCHC (RBC) [Mass/Vol] 31.3 g/dL Low 32-36 [facility] Comment on above: Performed By: #### L 100.0100, L500.4050 #### [facility] [address] [place], [address] MCV (RBC) [Entitic vol] 100.3 fL High 81-99 [facility] Comment on above: Performed By: #### L 100.0100, L500.4050 #### [facility] [address] [place], [address] Monocytes/100 WBC (Bld) 10.1 % High 0-10 [facility] Comment on above: Performed By: #### L 100.0100, L500.4050 #### [facility] [address] [place], [address] Neutrophils/100 WBC (Bld) 58.5 % Normal 47-70 [facility] Comment on above: Performed By: #### L 100.0100, L500.4050 #### [facility] Laboratory [address] [place], [address] Nucleated RBC (Bld) [#/Vol] 0 10*3/uL Normal 0-5 [facility] Comment on above: Performed By: #### L 100.0100, L500.4050 #### [facility] [address] [place], [address] Platelet mean volume (Bld) [Entitic vol] 10.5 fL Normal 6.2-12.0 [facility] Comment on above: Performed By: #### L 100.0100, L500.4050 #### [facility] Laboratory [address] [place], [address] Platelets (Bld) [#/Vol] 250 10*3/uL Normal 150-450 [facility] Comment on above: Performed By: #### L 100.0100, L500.4050 #### [facility] [address] [place], [address] RBC (Bld) [#/Vol] 3.82 10*6/uL Low 4.2-5.4 [facility] Comment on above: Performed By: #### L 100.0100, L500.4050 #### [facility] Laboratory [address] [place], [address] RDW SD 50.2 fl High 35.1-43.9 [facility] Comment on above: Performed By: #### L 100.0100, L500.4050 #### [facility] Laboratory [address] [place], [address] WBC (Bld) [#/Vol] 5.7 10*3/uL Normal 4.4-11.0 [facility] Comment on above: Performed By: #### L 100.0100, L500.4050 #### [facility] [address] [place], [address] Carbon dioxide, total [Moles /volume] in Central venous bloodOrdered By: Laurence Hinds on 04-17-2025 CO2 [Moles/Vol] 21.9 mmol/L 21.0-32.0 [facility] Chloride assayOrdered By: Lucien Hinds on 04-17-2025 Chloride [Moles/Vol] 99 mmol/L 98-108 [facility] Comprehensive Metabolic Prof ilon 04-17-2025 Albumin [Mass/Vol] 4.0 g/dL Normal 3.4-4.8 [facility] Comment on above: Performed By: #### L 500.4050, L100.0100 #### [facility] Laboratory [address] [place], [address] Albumin/Globulin [Mass ratio] 1.3 {ratio} Normal 0.9-2.4 [facility] Comment on above: Performed By: #### L 500.4050, L100.0100 #### [facility] Laboratory [address] [place], [address] ALK PHOS 78 U/L Normal 35-104 [facility] Comment on above: Performed By: #### L 500.4050, L100.0100 #### [facility] Laboratory [address] [place], [address] ALT [Catalytic activity/Vol] 12 U/L Normal <=34 [facility] Comment on above: Performed By: #### L 500.4050, L100.0100 #### [facility] Laboratory [address] [place], [address] AST [Catalytic activity/Vol] 20 U/L Normal <=31 [facility] Comment on above: Performed By: #### L 500.4050, L100.0100 #### [facility] Laboratory [address] [place], [address] Bilirubin [Mass/Vol] 0.24 mg/dL Normal 0.00-1.30 [facility] Comment on above: Performed By: #### L 500.4050, L100.0100 #### [facility] [address] [place], [address] BUN/CRE 27.9 RATIO High 10-20 [facility] Comment on above: Performed By: #### L 500.4050, L100.0100 #### [facility] Laboratory [address] [place], [address] Calcium [Mass/Vol] 10.0 mg/dL Normal 7.6-11.0 [facility] Comment on above: Performed By: #### L 500.4050, L100.0100 #### [facility] Laboratory [address] [place], [address] Chloride [Moles/Vol] 99 mmol/L Normal 98-108 [facility] Comment on above: Performed By: #### L 500.4050, L100.0100 #### [facility] Laboratory [address] [place], [address] CO2 [Moles/Vol] 21.9 mmol/L Normal 21.0-32.0 [facility] Comment on above: Performed By: #### L 500.4050, L100.0100 #### [facility] Laboratory [address] [place], [address] Creatinine [Mass/Vol] 0.79 mg/dL Normal 0.70-1.20 [facility] Comment on above: Performed By: #### L 500.4050, L100.0100 #### [facility] [address] [place], [address] GAP 11 Normal 5-15 [facility] Comment on above: Performed By: #### L 500.4050, L100.0100 #### [facility] Laboratory [address] [place], [address] GFR/1.73 sq M.predicted among non-blacks MDRD (S/P/Bld) [Vol rate/Area] 71 mL/min/{1.73_m2} Normal >60 [facility] Comment on above: Result Comment: mL/m in/1.73m2 CKD-EPI Creatinine Equation (2020) Performed By: #### L 500.4050, L100.0100 #### [facility] Laboratory [address] [place], [address] Globulin (S) [Mass/Vol] 3.2 g/dL Normal 2.2-4.2 [facility] Comment on above: Performed By: #### L 500.4050, L100.0100 #### [facility] Laboratory [address] [place], [address] Glucose [Mass/Vol] 122 mg/dL High 70-99 [facility] Comment on above: Performed By: #### L 500.4050, L100.0100 #### [facility] Laboratory [address] [place], [address] Potassium [Moles/Vol] 4.4 mmol/L Normal 3.3-5.1 [facility] Comment on above: Performed By: #### L 500.4050, L100.0100 #### [facility] [address] [place], [address] Sodium [Moles/Vol] 131 mmol/L Low 133-145 [facility] Comment on above: Performed By: #### L 500.4050, L100.0100 #### [facility] [address] [place], [address] T PROT 7.2 g/dL Normal 5.9-8.4 [facility] Comment on above: Performed By: #### L 500.4050, L100.0100 #### [facility] Laboratory [address] [place], [address] Urea nitrogen [Mass/Vol] 22 mg/dL High 4-19 [facility] Comment on above: Performed By: #### L 500.4050, L100.0100 #### [facility] Laboratory [address] [place], [address] Eosinophil percentageOrdered By: Laurence Hinds on 04-17-2025 Eosinophils/100 WBC (Bld) 2.6 % 0-5 [facility] Erythrocyte distribution wid th ratioOrdered By: Laurence Hinds on 04-17-2025 Erythrocyte distribution width (RBC) [Ratio] 13.9 % 11.6-14.6 [facility] Erythrocyte distribution wid th standard deviationOrdered By: Laurence Hinds on 04-17-2025 Erythrocyte distribution width (RBC) [Ratio] 50.2 fl High 35.1-43.9 [facility] Glomerular filtration rate ( GFR) estimation/1.73 sq m using serum, plasma, or whole bOrdered By: Laurence Hinds on 04-17-2025 GFR/1.73 sq M.predicted among non-blacks MDRD (S/P/Bld) [Vol rate/Area] 71 mL/min/{1.73_m2} >60 [facility] Comment on above: mL/min/1.73m2 CKD-EP I Creatinine Equation (2020) Hematocrit Auto (Bld) [Volum e fraction]Ordered By: Laurence Hinds on 04-17-2025 Hematocrit (Bld) [Volume fraction] 38.3 % 37-47 [facility] Hemoglobin measurementOrdere d By: Laurence Hinds on 04-17-2025 Hemoglobin (Bld) [Mass/Vol] 12.0 g/dL 12.0-15.0 [facility] Immature granulocytes/100 WB C Auto (Bld)Ordered By: Laurenceshelley Hinds on 04-17-2025 Immature granulocytes/100 WBC (Bld) 0.200 % 0.0-0.9 [facility] Comment on above: IG% - Immature Granu locytes (promyelocytes, myelocytes and metamyelocytes) > 1% indicates that a LEFT SHIFT is Present. Laboratory - Chemistry and C hemistry - challengeOrdered By: Laurence Hinds on 04-17-2025 AST [Catalytic activity/Vol] 20 U/L <32 [facility] MCV (mean corpuscular volume ) determinationOrdered By: Laurence Hinds on 04-17-2025 MCV (RBC) [Entitic vol] 100.3 fL High 81-99 [facility] Mean corpuscular hemoglobin (MCH) determinationOrdered By: Laurence Hinds on 04-17-2025 MCH (RBC) [Entitic mass] 31.4 pg 27.0-32.0 [facility] Mean corpuscular hemoglobin concentration (MCHC) determinationOrdered By: Laurence Hinds on 04-17-2025 MCHC (RBC) [Mass/Vol] 31.3 g/dL Low 32-36 [facility] Mean platelet volume determi nationOrdered By: Laurence Hinds on 04-17-2025 Platelet mean volume (Bld) [Entitic vol] 10.5 fL 6.2-12.0 [facility] Monocyte percentageOrdered B y: Laurence Hinds on 04-17-2025 Monocytes/100 WBC (Bld) 10.1 % High 0-10 [facility] Neurology Visit Reporton Neurology Visit Report [facility] [address] [place] [address] OFFICE VISIT Date of Service: 04/17/25 MR#: [id number] Acct: [id number] Name: YANN ADAIR Rep #: [id number] : 1935 Provider: Dr. Chong cordova MD Age/Sex: 89/F [place] [facility] [place] Signed [facility] Chief Complaint: Details: Interim History: Yann [...] (high) S (more content not included)... Normal [facility] Neutrophil percentageOrdered By: Laurence Hinds on 04-17-2025 Neutrophils/100 WBC (Bld) 58.5 % 47-70 [facility] Nucleated red blood cell per centageOrdered By: Laurence Hinds on 04-17-2025 Nucleated RBC/100 WBC (Bld) [Ratio] 0 % 0-5 [facility] Platelet countOrdered By: Lucien Hinds on 04-17-2025 Platelets (Bld) [#/Vol] 250 10*3/uL 150-450 [facility] Potassium measurement (mass/ volume)Ordered By: Laurence Hinds on 04-17-2025 Potassium (Unsp spec) [Mass/Vol] 4.4 mmol/L 3.3-5.1 [facility] RBC Auto (Bld) [#/Vol]Ordere d By: Laurence Hinds on 04-17-2025 RBC (Bld) [#/Vol] 3.82 10*6/uL Low 4.2-5.4 [facility] Serum creatinine measurement (mass/volume)Ordered By: Laurence Hinds on 04-17-2025 Creatinine [Mass/Vol] 0.79 mg/dL 0.70-1.20 [facility] Serum globulin measurementOr dered By: Laurence Hinds on 04-17-2025 Globulin (S) [Mass/Vol] 3.2 g/dL 2.2-4.2 [facility] Serum glucose measurement (m ass/volume)Ordered By: Laurence Hinds on 04-17-2025 Glucose [Mass/Vol] 122 mg/dL High 70-99 [facility] Serum or plasma alanine meza otransferase (ALT) measurementOrdered By: Laurence Hinds on 04-17-2025 ALT [Catalytic activity/Vol] 12 U/L <35 [facility] Serum or plasma albumin rhonda urement (mass/volume)Ordered By: Laurence Hinds on 04-17-2025 Albumin [Mass/Vol] 4.0 g/dL 3.4-4.8 [facility] Serum or plasma albumin/glob ulin mass ratioOrdered By: Laurence Hinds on 04-17-2025 Albumin/Globulin [Mass ratio] 1.3 {ratio} 0.9-2.4 [facility] Serum or plasma alkaline yosvany sphatase measurementOrdered By: Laurence Hinds on 04-17-2025 ALP [Catalytic activity/Vol] 78 U/L 35-104 [facility] Serum or plasma calcium rhonda urement (mass/volume)Ordered By: Laurence Hinds on 04-17-2025 Calcium [Mass/Vol] 10.0 mg/dL 7.6-11.0 [facility] Serum or plasma urea nitroge n measurement (mass/volume)Ordered By: Laurence Hinds on 04-17-2025 Urea nitrogen [Mass/Vol] 22 mg/dL High 4-19 [facility] Sodium levelOrdered By: Lesa Hinds on 04-17-2025 Sodium [Moles/Vol] 131 mmol/L Low 133-145 [facility] Total proteinOrdered By: Sergio Hinds on 04-17-2025 Protein [Mass/Vol] 7.2 g/dL 5.9-8.4 [facility] White blood cell (WBC) count Ordered By: Laurence Hinds on 04-17-2025 WBC (Bld) [#/Vol] 5.7 10*3/uL 4.4-11.0 [facility] Absolute lymphocyte countOrd ered By: Laurence Hinds on 01-19-2025 Lymphocytes Auto (Unsp spec) [#/Vol] 1.63 10*3/uL 0.83-4.51 [facility] Absolute neutrophil countOrd ered By: Laurence Hinds on 01-19-2025 Neutrophils (Bld) [#/Vol] 4.3 10*3/uL 2.0-7.7 [facility] Anion gap in Serum or Plasma Ordered By: Laurence Hinds on 01-19-2025 Anion gap [Moles/Vol] 11 mmol/L 5-15 [facility] Automated lymphocyte count a s percentage of total leukocytesOrdered By: Laurenceshelley Hinds on 01-19-2025 Lymphocytes/100 WBC Auto (Unsp spec) 23.7 % 19- [facility] BUN/creatinine ratioOrdered By: Laurenceshelley Hinds on 01-19-2025 Urea nitrogen/Creatinine [Mass ratio] 23.5 mg/mg High 10-20 [facility] Basophil percentageOrdered B y: Laurence Hinds on 01-19-2025 Basophils/100 WBC (Bld) 0.4 % 0-1 [facility] Bilirubin, totalOrdered By: Laurence Hinds on 01-19-2025 Bilirubin [Mass/Vol] 0.35 mg/dL 0.00-1.30 [facility] CBC W/Diff, Automatedon Absolute Lymph 1.63 X10 3/uL Normal 0.83-4.51 [facility] Comment on above: Performed By: #### L 500.4050, L100.0100 #### [facility] Laboratory [address] [place], [address] Absolute Neut 4.3 X10 3/uL Normal 2.0-7.7 [facility] Comment on above: Performed By: #### L 500.4050, L100.0100 #### [facility] [address] [place], [address] Basophils/100 WBC (Bld) 0.4 % Normal 0-1 [facility] Comment on above: Performed By: #### L 500.4050, L100.0100 #### [facility] [address] [place], [address] Eosinophils/100 WBC (Bld) 1.7 % Normal 0-5 [facility] Comment on above: Performed By: #### L 500.4050, L100.0100 #### [facility] [address] [place], [address] Erythrocyte distribution width (RBC) [Ratio] 13.7 % Normal 11.6-14.6 [facility] Comment on above: Performed By: #### L 500.4050, L100.0100 #### [facility] [address] [place], [address] Hematocrit (Bld) [Volume fraction] 38.7 % Normal 37-47 [facility] Comment on above: Performed By: #### L 500.4050, L100.0100 #### [facility] [address] [place], [address] Hemoglobin (Bld) [Mass/Vol] 12.0 g/dL Normal 12.0-15.0 [facility] Comment on above: Performed By: #### L 500.4050, L100.0100 #### [facility] [address] [place], [address] IG% 0.400 Normal 0.0-0.9 [facility] Comment on above: Result Comment: IG% - Immature Granulocytes (promyelocytes, myelocytes and metamyelocytes) > 1% indicates that a LEFT SHIFT is Present. Performed By: #### L 500.4050, L100.0100 #### [facility] [address] [place], [address] Lymphocytes/100 WBC (Bld) 23.7 % Normal 19-41 [facility] Comment on above: Performed By: #### L 500.4050, L100.0100 #### [facility] Laboratory [address] [place], [address] MCH (RBC) [Entitic mass] 30.9 pg Normal 27.0-32.0 [facility] Comment on above: Performed By: #### L 500.4050, L100.0100 #### [facility] [address] [place], [address] MCHC (RBC) [Mass/Vol] 31.0 g/dL Low 32-36 [facility] Comment on above: Performed By: #### L 500.4050, L100.0100 #### [facility] [address] [place], [address] MCV (RBC) [Entitic vol] 99.7 fL High 81-99 [facility] Comment on above: Performed By: #### L 500.4050, L100.0100 #### [facility] [address] [place], [address] Monocytes/100 WBC (Bld) 10.8 % High 0-10 [facility] Comment on above: Performed By: #### L 500.4050, L100.0100 #### [facility] [address] [place], [address] Neutrophils/100 WBC (Bld) 63.0 % Normal 47-70 [facility] Comment on above: Performed By: #### L 500.4050, L100.0100 #### [facility] [address] [place], [address] Nucleated RBC (Bld) [#/Vol] 0 10*3/uL Normal 0-5 [facility] Comment on above: Performed By: #### L 500.4050, L100.0100 #### [facility] [address] [place], [address] Platelet mean volume (Bld) [Entitic vol] 10.5 fL Normal 6.2-12.0 [facility] Comment on above: Performed By: #### L 500.4050, L100.0100 #### [facility] [address] [place], [address] Platelets (Bld) [#/Vol] 294 10*3/uL Normal 150-450 [facility] Comment on above: Performed By: #### L 500.4050, L100.0100 #### [facility] [address] [place], [address] RBC (Bld) [#/Vol] 3.88 10*6/uL Low 4.2-5.4 [facility] Comment on above: Performed By: #### L 500.4050, L100.0100 #### [facility] [address] [place], [address] RDW SD 49.4 fl High 35.1-43.9 [facility] Comment on above: Performed By: #### L 500.4050, L100.0100 #### [facility] [address] [place], [address] WBC (Bld) [#/Vol] 6.9 10*3/uL Normal 4.4-11.0 [facility] Comment on above: Performed By: #### L 500.4050, L100.0100 #### [facility] [address] [place], [address] Carbon dioxide, total [Moles /volume] in Central venous bloodOrdered By: Laurence Hinds on 01-19-2025 CO2 [Moles/Vol] 23.6 mmol/L 21.0-32.0 [facility] Chloride assayOrdered By: Lucien Hinds on 01-19-2025 Chloride [Moles/Vol] 96 mmol/L Low 98-108 [facility] Comprehensive Metabolic Prof ilon 01-19-2025 Albumin [Mass/Vol] 4.1 g/dL Normal 3.4-4.8 [facility] Comment on above: Performed By: #### L 500.4050, L100.0100 #### [facility] [address] [place], [address] Albumin/Globulin [Mass ratio] 1.3 {ratio} Normal 0.9-2.4 [facility] Comment on above: Performed By: #### L 500.4050, L100.0100 #### [facility] [address] [place], [address] ALK PHOS 90 U/L Normal 35-104 [facility] Comment on above: Performed By: #### L 500.4050, L100.0100 #### [facility] [address] [place], [address] ALT [Catalytic activity/Vol] 10 U/L Normal <=34 [facility] Comment on above: Performed By: #### L 500.4050, L100.0100 #### [facility] [address] [place], [address] AST [Catalytic activity/Vol] 21 U/L Normal <=31 [facility] Comment on above: Performed By: #### L 500.4050, L100.0100 #### [facility] [address] [place], [address] Bilirubin [Mass/Vol] 0.35 mg/dL Normal 0.00-1.30 [facility] Comment on above: Performed By: #### L 500.4050, L100.0100 #### [facility] [address] [place], [address] BUN/CRE 23.5 RATIO High 10-20 [facility] Comment on above: Performed By: #### L 500.4050, L100.0100 #### [facility] [address] [place], [address] Calcium [Mass/Vol] 10.0 mg/dL Normal 7.6-11.0 [facility] Comment on above: Performed By: #### L 500.4050, L100.0100 #### [facility] [address] [place], [address] Chloride [Moles/Vol] 96 mmol/L Low 98-108 [facility] Comment on above: Performed By: #### L 500.4050, L100.0100 #### [facility] [address] [place], [address] CO2 [Moles/Vol] 23.6 mmol/L Normal 21.0-32.0 [facility] Comment on above: Performed By: #### L 500.4050, L100.0100 #### [facility] [address] [place], [address] Creatinine [Mass/Vol] 0.76 mg/dL Normal 0.70-1.20 [facility] Comment on above: Performed By: #### L 500.4050, L100.0100 #### [facility] [address] [place], [address] GAP 11 Normal 5-15 [facility] Comment on above: Performed By: #### L 500.4050, L100.0100 #### [facility] [address] [place], [address] GFR/1.73 sq M.predicted among non-blacks MDRD (S/P/Bld) [Vol rate/Area] 75 mL/min/{1.73_m2} Normal >60 [facility] Comment on above: Result Comment: mL/m in/1.73m2 CKD-EPI Creatinine Equation (2020) Performed By: #### L 500.4050, L100.0100 #### [facility] [address] [place], [address] Globulin (S) [Mass/Vol] 3.1 g/dL Normal 2.2-4.2 [facility] Comment on above: Performed By: #### L 500.4050, L100.0100 #### [facility] [address] [place], [address] Glucose [Mass/Vol] 110 mg/dL High 70-99 [facility] Comment on above: Performed By: #### L 500.4050, L100.0100 #### [facility] [address] [place], [address] Potassium [Moles/Vol] 4.2 mmol/L Normal 3.3-5.1 [facility] Comment on above: Performed By: #### L 500.4050, L100.0100 #### [facility] [address] [place], [address] Sodium [Moles/Vol] 131 mmol/L Low 133-145 [facility] Comment on above: Performed By: #### L 500.4050, L100.0100 #### [facility] [address] [place], [address] T PROT 7.2 g/dL Normal 5.9-8.4 [facility] Comment on above: Performed By: #### L 500.4050, L100.0100 #### [facility] [address] [place], [address] Urea nitrogen [Mass/Vol] 18 mg/dL Normal 4-19 [facility] Comment on above: Performed By: #### L 500.4050, L100.0100 #### [facility] [address] [place], [address] Eosinophil percentageOrdered By: Laurence Hinds on 01-19-2025 Eosinophils/100 WBC (Bld) 1.7 % 0-5 [facility] Erythrocyte distribution wid th ratioOrdered By: Laurence Hinds on 01-19-2025 Erythrocyte distribution width (RBC) [Ratio] 13.7 % 11.6-14.6 [facility] Erythrocyte distribution wid th standard deviationOrdered By: Laurence Hinds on 01-19-2025 Erythrocyte distribution width (RBC) [Entitic vol] 49.4 fL High 35.1-43.9 [facility] Erythrocyte distribution width (RBC) [Ratio] 49.4 fl High 35.1-43.9 [facility] GFR/1.73 sq M.predicted ortiz g non-blacks MDRD (S/P/Bld) [Vol rate/Area]Ordered By: Laurence Hinds on 01-19-2025 Estimated GFR (MDRD) Non-Af Amer 75 >60 [facility] Comment on above: mL/min/1.73m2 CKD-EP I Creatinine Equation (2020) Glomerular filtration rate ( GFR) estimation/1.73 sq m using serum, plasma, or whole bOrdered By: Laurence Hinds on 01-19-2025 GFR/1.73 sq M.predicted among non-blacks MDRD (S/P/Bld) [Vol rate/Area] 75 mL/min/{1.73_m2} >60 [facility] Comment on above: mL/min/1.73m2 CKD-EP I Creatinine Equation (2020) Hematocrit Auto (Bld) [Volum e fraction]Ordered By: Laurence Hinds on 01-19-2025 Hematocrit (Bld) [Volume fraction] 38.7 % 37-47 [facility] Hemoglobin measurementOrdere d By: Laurence Hinds on 01-19-2025 Hemoglobin (Bld) [Mass/Vol] 12.0 g/dL 12.0-15.0 [facility] Immature granulocytes/100 WB C Auto (Bld)Ordered By: Laurence Hinds on 01-19-2025 Immature granulocytes/100 WBC (Bld) 0.400 % 0.0-0.9 [facility] Comment on above: IG% - Immature Granu locytes (promyelocytes, myelocytes and metamyelocytes) > 1% indicates that a LEFT SHIFT is Present. Laboratory - Chemistry and C hemistry - challengeOrdered By: Laurence Hinds on 01-19-2025 AST [Catalytic activity/Vol] 21 U/L <32 [facility] Lymphocytes Auto (Unsp spec) [#/Vol]Ordered By: Laurence Hinds on 01-19-2025 Lymphocytes (Bld) [#/Vol] 1.63 10*3/uL 0.83-4.5 1 [facility] Lymphocytes/100 WBC Auto (Un sp spec)Ordered By: Laurence Hinds on 01-19-2025 Lymphocytes/100 WBC (Bld) 23.7 % 19-41 [facility] MCV (mean corpuscular volume ) determinationOrdered By: Laurence Hinds on 01-19-2025 MCV (RBC) [Entitic vol] 99.7 fL High 81-99 [facility] Mean corpuscular hemoglobin (MCH) determinationOrdered By: Laurence Hinds on 01-19-2025 MCH (RBC) [Entitic mass] 30.9 pg 27.0-32.0 [facility] Mean corpuscular hemoglobin concentration (MCHC) determinationOrdered By: Laurence Hinds on 01-19-2025 MCHC (RBC) [Mass/Vol] 31.0 g/dL Low 32-36 [facility] Mean platelet volume determi nationOrdered By: Laurence Hinds on 01-19-2025 Platelet mean volume (Bld) [Entitic vol] 10.5 fL 6.2-12.0 [facility] Monocyte percentageOrdered B y: Laurence Hinds on 01-19-2025 Monocytes/100 WBC (Bld) 10.8 % High 0-10 [facility] Neutrophil percentageOrdered By: Laurence Hinds on 01-19-2025 Neutrophils/100 WBC (Bld) 63.0 % 47-70 [facility] Nucleated red blood cell per centageOrdered By: Laurence Hinds on 01-19-2025 Nucleated RBC/100 WBC (Bld) [Ratio] 0 % 0-5 [facility] Platelet countOrdered By: Lucien Hinds on 01-19-2025 Platelets (Bld) [#/Vol] 294 10*3/uL 150-450 [facility] Potassium (Unsp spec) [Mass/ Vol]Ordered By: Laurence Hinds on 01-19-2025 Potassium [Moles/Vol] 4.2 mmol/L 3.3-5.1 [facility] Potassium measurement (mass/ volume)Ordered By: Laurence Hinds on 01-19-2025 Potassium (Unsp spec) [Mass/Vol] 4.2 mmol/L 3.3-5.1 [facility] RBC Auto (Bld) [#/Vol]Ordere d By: Laurence Hinds on 01-19-2025 RBC (Bld) [#/Vol] 3.88 10*6/uL Low 4.2-5.4 [facility] Serum creatinine measurement (mass/volume)Ordered By: Laurence Hinds on 01-19-2025 Creatinine [Mass/Vol] 0.76 mg/dL 0.70-1.20 [facility] Serum globulin measurementOr dered By: Laurence Hinds on 01-19-2025 Globulin (S) [Mass/Vol] 3.1 g/dL 2.2-4.2 [facility] Serum glucose measurement (m ass/volume)Ordered By: Laurence Hinds on 01-19-2025 Glucose [Mass/Vol] 110 mg/dL High 70-99 [facility] Serum or plasma alanine meza otransferase (ALT) measurementOrdered By: Laurence Hinds on 01-19-2025 ALT [Catalytic activity/Vol] 10 U/L <35 [facility] Serum or plasma albumin rhonda urement (mass/volume)Ordered By: Laurence Hinds on 01-19-2025 Albumin [Mass/Vol] 4.1 g/dL 3.4-4.8 [facility] Serum or plasma albumin/glob ulin mass ratioOrdered By: Laurence Hinds on 01-19-2025 Albumin/Globulin [Mass ratio] 1.3 {ratio} 0.9-2.4 [facility] Serum or plasma alkaline yosvany sphatase measurementOrdered By: Laurence Hinds on 01-19-2025 ALP [Catalytic activity/Vol] 90 U/L 35-104 [facility] Serum or plasma calcium rhonda urement (mass/volume)Ordered By: Laurence Hinds on 01-19-2025 Calcium [Mass/Vol] 10.0 mg/dL 7.6-11.0 [facility] Serum or plasma urea nitroge n measurement (mass/volume)Ordered By: Laurence Hinds on 01-19-2025 Urea nitrogen [Mass/Vol] 18 mg/dL 4-19 [facility] Sodium levelOrdered By: Lesa Hinds on 01-19-2025 Sodium [Moles/Vol] 131 mmol/L Low 133-145 [facility] Total proteinOrdered By: Sergio Hinds on 01-19-2025 Protein [Mass/Vol] 7.2 g/dL 5.9-8.4 [facility] White blood cell (WBC) count Ordered By: Laurence Hinds on 01-19-2025 WBC (Bld) [#/Vol] 6.9 10*3/uL 4.4-11.0 [facility] CNOVon 12-01-2024 CNOV Office Visit (PODIWS ) YANN ADAIR ([id number]) 1935 F Date Time Provider Department 12/01/24 [...] (or decreased sensation in your feet) a quarter supervisor should always cut your toenails. Be Careful [...] Go to your health care provider or quarter supervisor to treat these conditions. Angelina Godwin 12/01/2024 [...] is warm (more content not included)... Normal [facility] CNOVon 11-27-2024 CNOV Office Visit (INTMWS ) YANN ADAIR ([id number]) 1935 F Date Time Provider Department 11/27/24 [...] PCP - General Sandra Sigala APRN.CNP as Icu Rn (Internal Medicine) Retinal specialist- [facility] Dr. Gould-neurologist Dr. Godwin-quarter supervisor Dr. Hinds-rheumatologi st Medical/Family history review Reviewed [...] YR, HIGH DOSE, TRIVALENT (FLUZONE HIGH-DOSE) - Fin [employer]iver COVID-19 VACCINE AGE 12+ YR (COMIRNATY) Sandra [...] 2. H (more content not included)... Normal [facility] Basic metabolic 2000 panelon 11-22-2024 Anion gap [Moles/Vol] 9 mmol/L Normal 8-15 [facility] Comment on above: Order Comment: Speci men Type: BLOOD SPECIMEN Ordering Facility: [facility] Address: [address] [place] [address] Performed By: #### 2 432-2, 28446-0 #### [facility] CLIA [id number] [address] [place] [address] [place] Calcium [Mass/Vol] 10.3 mg/dL High 8.5-10.2 [facility] Comment on above: Order Comment: Speci men Type: BLOOD SPECIMEN Ordering Facility: [facility] Address: [address] [place] [address] Performed By: #### 2 432-2, 38127-0 #### [facility] CLIA [id number] [address] [place] [address] [place] Chloride [Moles/Vol] 99 mmol/L Normal 98-107 [facility] Comment on above: Order Comment: Speci men Type: BLOOD SPECIMEN Ordering Facility: [facility] Address: [address] [place] [address] Performed By: #### 2 432-2, 71685-5 #### [facility] CLIA [id number] [address] [place] [address] [place] CO2 [Moles/Vol] 26 mmol/L Normal 22-30 [facility] Comment on above: Order Comment: Speci men Type: BLOOD SPECIMEN Ordering Facility: [facility] Address: [address] [place] [address] Performed By: #### 2 4321-2, 23369-9 #### [facility] CLIA [id number] [address] [place] [address] [place] Creatinine [Mass/Vol] 0.78 mg/dL Normal 0.58-0.96 [facility] Comment on above: Order Comment: Speci men Type: BLOOD SPECIMEN Ordering Facility: [facility] Address: [address] [place] [address] Performed By: #### 2 432-2, #### [facility] CLIA [id number] [address] [place] [address] [place] Creatinine and Glomerular filtration rate.predicted panel (S/P/Bld) 73 mL/min/1.73m??? Normal >=60 [facility] Comment on above: Order Comment: Speci men Type: BLOOD SPECIMEN Ordering Facility: [facility] Address: [address] [place] [address] Result Comment: Zoila mated Glomerular Filtration Rate [...] actual GFR. Performed By: #### 2 4321-2, 02402-3 #### [facility] CLIA [id number] [address] [place] [address] [place] Glucose [Mass/Vol] 107 mg/dL High 74-99 [facility] Comment on above: Order Comment: Speci men Type: BLOOD SPECIMEN Ordering Facility: [facility] Address: [address] [place] [address] Result Comment: The [place] Diabetes Association (ADA) provides guidance for cutoff [...] Standards of Medical Care in Diabetes 2016, [place] [employer] Association. Diabetes Care. 2016.39(Suppl 1). Performed By: #### 2 4321-2, 07832-7 #### [facility] CLIA [id number] [address] [place] [address] [place] Potassium [Moles/Vol] 4.6 mmol/L Normal 3.7-5.1 [facility] Comment on above: Order Comment: Speci men Type: BLOOD SPECIMEN Ordering Facility: [facility] Address: [address] [place] [address] Performed By: #### 2 4321-2, 73778-5 #### [facility] CLIA [id number] [address] [place] [address] [place] Sodium [Moles/Vol] 134 mmol/L Low 136-144 [facility] Comment on above: Order Comment: Speci men Type: BLOOD SPECIMEN Ordering Facility: [facility] Address: [address] [place] [address] Performed By: #### 2 4321-2, 29163-7 #### [facility] CLIA [id number] [address] [place] [address] [place] Urea nitrogen [Mass/Vol] 18 mg/dL Normal 7-21 [facility] Comment on above: Order Comment: Speci men Type: BLOOD SPECIMEN Ordering Facility: [facility] Address: [address] [place] [address] Performed By: #### 2 4321-2, 14544-0 #### [facility] CLIA [id number] [address] [place] [address] OF [facility] HbA1c (Bld)on 11-22-2024 Average glucose Estimated from glycated hemoglobin (Bld) [Mass/Vol] 105 mg/dL Normal [facility] Comment on above: Order Comment: Maria Luisa esquivel Type: BLOOD SPECIMEN Ordering Facility: [facility] Address: [address] [place] [address] Result Comment: eAG: (Estimated average glucose) is a calculated value from HgbA1c and is loan servicing representative of the average blood glucose level in the last 2-3 month period. Performed By: #### 5 5454-3 #### [facility] CLIA [id number] [address] [place] [address] HbA1c (Bld) [Mass fraction] 5.3 % Normal 4.3-5.6 [facility] Comment on above: Order Comment: Maria Luisa esquivel Type: BLOOD SPECIMEN Ordering Facility: [facility] Address: [address] [place] [address] Result Comment: [place] Diabetes Association guidelines indicate that patients with HgbA1c in the range 5.7-6.4% are at increased risk for development of diabetes, and intervention by lifestyle modification may be beneficial. HgbA1c greater or equal to 6.5% is considered diagnostic of diabetes. Performed By: #### 5 5454-3 #### [facility] CLIA [id number] [address] [place] [address] [place] Lipid 1996 panelon 5 Cholesterol [Mass/Vol] 132 mg/dL Normal <200 [facility] Comment on above: Order Comment: Maria Luisa esquivel Type: BLOOD SPECIMEN Ordering Facility: [facility] Address: [address] [place] [address] Result Comment: <200 mg/dL, Desirable 200-239 mg/dL, Borderline high >239 mg/dL, High Performed By: #### 2 4321-2, 78956-7 #### [facility] CLIA [id number] [address] [place] Cholesterol in HDL [Mass/Vol] 48 mg/dL Normal >39 [facility] Comment on above: Order Comment: Maria Luisa esquivel Type: BLOOD SPECIMEN Ordering Facility: [facility] Address: [address] [place] [address] Result Comment: 40-5 9 mg/dL, Acceptable >59 mg/dL, High: Negative risk factor for coronary heart disease <40 mg/dL, Low: Positive risk factor for coronary heart disease Performed By: #### 2 4321-2, 59094-1 #### [facility] CLIA [id number] [address] [place] [address] [place] [facility] Cholesterol in LDL [Mass/Vol] 69 mg/dL Normal <100 [facility] Comment on above: Order Comment: Maria Luisa esquivel Type: BLOOD SPECIMEN Ordering Facility: [facility] Address: [address] [place] [address] Result Comment: <100 mg/dL, Optimal 100-129 mg/dL, Near optimal/above optimal 130-159 mg/dL, Borderline high 160-189 mg/dL, High >189 mg/dL, Very high Secondary prevention optimal LDL Cholesterol levels are recommended to be < 70 mg/dL Performed By: #### 2 4321-2, 86617-5 #### [facility] CLIA [id number] [address] [place] [address] OF [facility] Cholesterol in LDL/Cholesterol in HDL [Mass ratio] 1.44 {ratio} Normal <2.54 [facility] Comment on above: Order Comment: Maria Luisa sierra Type: BLOOD SPECIMEN Ordering Facility: [facility] Address: [address] [place] [address] Result Comment: Abdelrahman day: 1. National Cholesterol Education Program ATP III Guideline At-A-Glance Quick Desk Reference: National Heart, Lung, and Blood [place]. National Institutes of Health. 2001: NIH Publication No. 01-3305. 2. An International Atherosclerosis Society position paper: global recommendations for the management of dyslipidemia: executive summary, Atherosclerosis. 2014: 232(2):410-413. Performed By: #### 2 4321-2, 52972-9 #### [facility] CLIA [id number] [address] [place] [address] [place] Cholesterol in VLDL [Mass/Vol] 15 mg/dL Normal <30 [facility] Comment on above: Order Comment: Speci men Type: BLOOD SPECIMEN Ordering Facility: [facility] Address: [address] [place] [address] Performed By: #### 2 4321-2, 55177-2 #### [facility] CLIA [id number] [address] [place] [address] [place] Cholesterol non HDL [Mass/Vol] 84 mg/dL Normal <130 [facility] Comment on above: Order Comment: Speci men Type: BLOOD SPECIMEN Ordering Facility: [facility] Address: [address] [place] [address] Result Comment: <130 mg/dL, Optimal 130-159 mg/dL, Near optimal/above optimal 160-189 mg/dL, Borderline high 190-219 mg/dL, High >219 mg/dL, Very high Secondary prevention optimal non HDL Cholesterol levels are recommended to be <100 mg/dL Performed By: #### 2 4321-2, 22146-8 #### [facility] CLIA [id number] [address] [place] [address] [place] Cholesterol.total/Cholest lisa in HDL [Mass ratio] 2.75 {ratio} Normal <5.10 [facility] Comment on above: Order Comment: Speci men Type: BLOOD SPECIMEN Ordering Facility: [facility] Address: [address] [place] [address] Performed By: #### 2 4321-2, 47756-2 #### [facility] CLIA [id number] [address] [place] [address] [place] FASTING TIME 12 hrs Normal [facility] Comment on above: Order Comment: Speci men Type: BLOOD SPECIMEN Ordering Facility: [facility] Address: [address] [place] [address] Performed By: #### 2 4321-2, 79566-9 #### [facility] CLIA [id number] [address] [place] [address] [place] Triglyceride [Mass/Vol] 77 mg/dL Normal <150 [facility] Comment on above: Order Comment: Speci men Type: BLOOD SPECIMEN Ordering Facility: [facility] Address: [address] [place] [address] Result Comment: <150 mg/dL, Normal 150-199 mg/dL, Borderline high 200-499 mg/dL, High >499 mg/dL, Very high Performed By: #### 2 4321-2, 84356-0 #### [facility] CLIA [id number] [address] [place] [address] [place] Absolute neutrophil countOrd ered By: Laurence Hinds on 10-17-2024 Neutrophils (Bld) [#/Vol] 3.7 10*3/uL 2.0-7.7 [facility] Albumin to globulin ratioOrd ered By: Laurence Hinds on 10-17-2024 Albumin/Globulin [Mass ratio] 0.9 {ratio} 0.9-2.4 [facility] Basophil percentageOrdered B y: Laurence Hinds on 10-17-2024 Basophils/100 WBC (Bld) 0.6 % 0-1 [facility] Bilirubin, totalOrdered By: Laurence Hinds on 10-17-2024 Bilirubin [Mass/Vol] 0.50 mg/dL 0.20-1.00 [facility] Comment on above: For patients on eltr ombopag therapy, use of Dimension [place] TBIL is not recommended. Blood urea nitrogen (BUN)/cr eatinine ratioOrdered By: Laurence Hinds on 10-17-2024 Urea nitrogen/Creatinine [Mass ratio] 24.7 mg/mg High 10-20 [facility] CBC W/Diff, Automatedon 12 Absolute Lymph 1.73 X10 3/uL Normal 0.83-4.51 [facility] Comment on above: Performed By: #### L 100.0100, L500.4050 #### [facility] [address] [place], [address] Absolute Neut 3.7 X10 3/uL Normal 2.0-7.7 [facility] Comment on above: Performed By: #### L 100.0100, L500.4050 #### [facility] [address] [place], [address] Basophils/100 WBC (Bld) 0.6 % Normal 0-1 [facility] Comment on above: Performed By: #### L 100.0100, L500.4050 #### [facility] [address] [place], [address] Eosinophils/100 WBC (Bld) 3.0 % Normal 0-5 [facility] Comment on above: Performed By: #### L 100.0100, L500.4050 #### [facility] [address] [place], [address] Erythrocyte distribution width (RBC) [Ratio] 13.6 % Normal 11.6-14.6 [facility] Comment on above: Performed By: #### L 100.0100, L500.4050 #### [facility] [address] [place], [address] Hematocrit (Bld) [Volume fraction] 39.6 % Normal 37-47 [facility] Comment on above: Performed By: #### L 100.0100, L500.4050 #### [facility] [address] [place], [address] Hemoglobin (Bld) [Mass/Vol] 12.0 g/dL Normal 12.0-15.0 [facility] Comment on above: Performed By: #### L 100.0100, L500.4050 #### [facility] [address] [place], [address] IG% 0.300 Normal 0.0-0.9 [facility] Comment on above: Result Comment: IG% - Immature Granulocytes (promyelocytes, myelocytes and metamyelocytes) > 1% indicates that a LEFT SHIFT is Present. Performed By: #### L 100.0100, L500.4050 #### [facility] [address] [place], [address] Lymphocytes/100 WBC (Bld) 26.0 % Normal 19-41 [facility] Comment on above: Performed By: #### L 100.0100, L500.4050 #### [facility] [address] [place], [address] MCH (RBC) [Entitic mass] 29.9 pg Normal 27.0-32.0 [facility] Comment on above: Performed By: #### L 100.0100, L500.4050 #### [facility] [address] [place], [address] MCHC (RBC) [Mass/Vol] 30.3 g/dL Low 32-36 [facility] Comment on above: Performed By: #### L 100.0100, L500.4050 #### [facility] [address] [place], [address] MCV (RBC) [Entitic vol] 98.8 fL Normal 81-99 [facility] Comment on above: Performed By: #### L 100.0100, L500.4050 #### [facility] [address] [place], [address] Monocytes/100 WBC (Bld) 14.0 % High 0-10 [facility] Comment on above: Performed By: #### L 100.0100, L500.4050 #### [facility] [address] [place], [address] Neutrophils/100 WBC (Bld) 56.1 % Normal 47-70 [facility] Comment on above: Performed By: #### L 100.0100, L500.4050 #### [facility] [address] [place], [address] Nucleated RBC (Bld) [#/Vol] 0 10*3/uL Normal 0-5 [facility] Comment on above: Performed By: #### L 100.0100, L500.4050 #### [facility] [address] [place], [address] Platelet mean volume (Bld) [Entitic vol] 10.3 fL Normal 6.2-12.0 [facility] Comment on above: Performed By: #### L 100.0100, L500.4050 #### [facility] [address] [place], [address] Platelets (Bld) [#/Vol] 316 10*3/uL Normal 150-450 [facility] Comment on above: Performed By: #### L 100.0100, L500.4050 #### [facility] [address] [place], [address] RBC (Bld) [#/Vol] 4.01 10*6/uL Low 4.2-5.4 [facility] Comment on above: Performed By: #### L 100.0100, L500.4050 #### [facility] [address] [place], [address] RDW SD 48.4 fl High 35.1-43.9 [facility] Comment on above: Performed By: #### L 100.0100, L500.4050 #### [facility] [address] [place], [address] WBC (Bld) [#/Vol] 6.7 10*3/uL Normal 4.4-11.0 [facility] Comment on above: Performed By: #### L 100.0100, L500.4050 #### [facility] [address] [place], [address] Carbon dioxide measurementOr dered By: Laurence Hinds on 10-17-2024 CO2 [Moles/Vol] 26.0 mmol/L 21.0-32.0 [facility] Chloride measurementOrdered By: Laurence Hinds on 10-17-2024 Chloride [Moles/Vol] 97 mmol/L Low 98-107 [facility] Comprehensive Metabolic Prof ilon 10-17-2024 Albumin [Mass/Vol] 3.6 g/dL Normal 3.2-5.0 [facility] Comment on above: Performed By: #### L 100.0100, L500.4050 #### [facility] [address] [place], [address] Albumin/Globulin [Mass ratio] 0.9 {ratio} Normal 0.9-2.4 [facility] Comment on above: Performed By: #### L 100.0100, L500.4050 #### [facility] [address] [place], [address] ALK P 90 U/L Normal 45-117 [facility] Comment on above: Performed By: #### L 100.0100, L500.4050 #### [facility] [address] [place], [address] ALT [Catalytic activity/Vol] 19 U/L Normal 13-56 [facility] Comment on above: Performed By: #### L 100.0100, L500.4050 #### [facility] [address] [place], [address] AST [Catalytic activity/Vol] 13 U/L Low 15-37 [facility] Comment on above: Performed By: #### L 100.0100, L500.4050 #### [facility] [address] [place], [address] Bilirubin [Mass/Vol] 0.50 mg/dL Normal 0.20-1.00 [facility] Comment on above: Result Comment: For patients on eltrombopag therapy, use of Dimension [place] TBIL is not recommended. Performed By: #### L 100.0100, L500.4050 #### [facility] [address] [place], [address] BUN/CRE 24.7 RATIO High 10-20 [facility] Comment on above: Performed By: #### L 100.0100, L500.4050 #### [facility] [address] [place], [address] CA,Total 10.1 mg/dL Normal 8.5-10.1 [facility] Comment on above: Performed By: #### L 100.0100, L500.4050 #### [facility] [address] [place], [address] Chloride [Moles/Vol] 97 mmol/L Low 98-107 [facility] Comment on above: Performed By: #### L 100.0100, L500.4050 #### [facility] [address] [place], [address] CO2 [Moles/Vol] 26.0 mmol/L Normal 21.0-32.0 [facility] Comment on above: Performed By: #### L 100.0100, L500.4050 #### [facility] [address] [place], [address] Creatinine [Mass/Vol] 0.77 mg/dL Normal 0.55-1.02 [facility] Comment on above: Result Comment: The validity of the calculated GFR GFRAA in patients over 70 years has not been determined. Clinical correlation is essential. Performed By: #### L 100.0100, L500.4050 #### [facility] [address] [place], [address] EST GFR - AA 91 mL/min Normal >60 [facility] Comment on above: Result Comment: Afri can Bangl[place] GFR Calc Performed By: #### L 100.0100, L500.4050 #### [facility] [address] [place], [address] GAP 7 Normal 5-15 [facility] Comment on above: Performed By: #### L 100.0100, L500.4050 #### [facility] [address] [place], [address] GFR/1.73 sq M.predicted among non-blacks MDRD (S/P/Bld) [Vol rate/Area] 75 mL/min/{1.73_m2} Normal >60 [facility] Comment on above: Result Comment: Non- GFR Calc Performed By: #### L 100.0100, L500.4050 #### [facility] [address] [place], [address] Globulin (S) [Mass/Vol] 4.2 g/dL Normal 2.2-4.2 [facility] Comment on above: Performed By: #### L 100.0100, L500.4050 #### [facility] [address] [place], [address] Glucose [Mass/Vol] 84 mg/dL Normal 74-106 [facility] Comment on above: Performed By: #### L 100.0100, L500.4050 #### [facility] [address] [place], [address] Potassium [Moles/Vol] 4.2 mmol/L Normal 3.5-5.1 [facility] Comment on above: Performed By: #### L 100.0100, L500.4050 #### [facility] [address] [place], [address] Sodium [Moles/Vol] 130 mmol/L Low 136-145 [facility] Comment on above: Performed By: #### L 100.0100, L500.4050 #### [facility] [address] [place], [address] T PROT 7.8 g/dL Normal 6.4-8.2 [facility] Comment on above: Performed By: #### L 100.0100, L500.4050 #### [facility] [address] [place], [address] Urea nitrogen [Mass/Vol] 19 mg/dL High 7-18 [facility] Comment on above: Performed By: #### L 100.0100, L500.4050 #### [facility] [address] [place], [address] Eosinophil percentageOrdered By: Laurence Hinds on 10-17-2024 Eosinophils/100 WBC (Bld) 3.0 % 0-5 [facility] Erythrocyte distribution wid th ratioOrdered By: Laurence Hinds on 10-17-2024 Erythrocyte distribution width (RBC) [Ratio] 13.6 % 11.6-14.6 [facility] Erythrocyte distribution wid th standard deviationOrdered By: Laurence Hinds on 10-17-2024 Erythrocyte distribution width (RBC) [Entitic vol] 48.4 fL High 35.1-43.9 [facility] Estimated glomerular filtrat ion rate (GFR) AmericanOrdered By: Laurence Hinds on 10-17-2024 Estimated GFR (MDRD) Amer 91 mL/min >60 [facility] Comment on above: GFR Calc Glomerular filtration rate ( GFR) estimationOrdered By: Laurence Hinds on 10-17-2024 Estimated GFR (MDRD) Non-Af Amer 75 mL/min >60 [facility] Comment on above: Non- GFR Calc Glucose measurementOrdered B y: Laurence Hinds on 10-17-2024 Glucose [Mass/Vol] 84 mg/dL 74-106 [facility] Hematocrit Auto (Bld) [Volum e fraction]Ordered By: Laurence Hinds on 10-17-2024 Hematocrit (Bld) [Volume fraction] 39.6 % 37-47 [facility] Hemoglobin measurementOrdere d By: Laurence Hinds on 10-17-2024 Hemoglobin (Bld) [Mass/Vol] 12.0 g/dL 12.0-15.0 [facility] Immature granulocytes/100 WB C Auto (Bld)Ordered By: Laurence Hinds on 10-17-2024 Immature granulocytes/100 WBC (Bld) 0.300 % 0.0-0.9 [facility] Comment on above: IG% - Immature Granu locytes (promyelocytes, myelocytes and metamyelocytes) > 1% indicates that a LEFT SHIFT is Present. Laboratory - Chemistry and C hemistry - challengeOrdered By: Laurence Hinds on 10-17-2024 AST [Catalytic activity/Vol] 13 U/L Low 15-37 [facility] Lymphocytes Auto (Unsp spec) [#/Vol]Ordered By: Laurence Hinds on 10-17-2024 Lymphocytes (Bld) [#/Vol] 1.73 10*3/uL 0.83-4.5 1 [facility] Lymphocytes/100 WBC Auto (Un sp spec)Ordered By: Laurence Hinds on 10-17-2024 Lymphocytes/100 WBC (Bld) 26.0 % 19-41 [facility] MCV (mean corpuscular volume ) determinationOrdered By: Laurence Hinds on 10-17-2024 MCV (RBC) [Entitic vol] 98.8 fL 81-99 [facility] Mean corpuscular hemoglobin (MCH) determinationOrdered By: Laurence Hinds on 10-17-2024 MCH (RBC) [Entitic mass] 29.9 pg 27.0-32.0 [facility] Mean corpuscular hemoglobin concentration (MCHC) determinationOrdered By: Laurence Hinds on 10-17-2024 MCHC (RBC) [Mass/Vol] 30.3 g/dL Low 32-36 [facility] Mean platelet volume determi nationOrdered By: Laurence Hinds on 10-17-2024 Platelet mean volume (Bld) [Entitic vol] 10.3 fL 6.2-12.0 [facility] Monocyte percentageOrdered B y: Laurence Hinds on 10-17-2024 Monocytes/100 WBC (Bld) 14.0 % High 0-10 [facility] Neutrophil percentageOrdered By: Laurence Hinds on 10-17-2024 Neutrophils/100 WBC (Bld) 56.1 % 47-70 [facility] Nucleated red blood cell per centageOrdered By: Laurence Hinds on 10-17-2024 Nucleated RBC/100 WBC (Bld) [Ratio] 0 % 0-5 [facility] Platelet countOrdered By: Lucien Hinds on 10-17-2024 Platelets (Bld) [#/Vol] 316 10*3/uL 150-450 [facility] Potassium measurementOrdered By: Laurence Hinds on 10-17-2024 Potassium [Moles/Vol] 4.2 mmol/L 3.5-5.1 [facility] RBC Auto (Bld) [#/Vol]Ordere d By: Laurence Hinds on 10-17-2024 RBC (Bld) [#/Vol] 4.01 10*6/uL Low 4.2-5.4 [facility] Serum anion gap measurementO rdered By: Laurence Hinds on 10-17-2024 Anion gap [Moles/Vol] 7 mmol/L 5-15 [facility] Serum globulin measurementOr dered By: Laurence Hinds on 10-17-2024 Globulin (S) [Mass/Vol] 4.2 g/dL 2.2-4.2 [facility] Serum or plasma alanine meza otransferase (ALT) measurementOrdered By: Laurence Hinds on 10-17-2024 ALT [Catalytic activity/Vol] 19 U/L 13-56 [facility] Serum or plasma albumin rhonda urement (mass/volume)Ordered By: Laurence Hinds on 10-17-2024 Albumin [Mass/Vol] 3.6 g/dL 3.2-5.0 [facility] Serum or plasma alkaline yosvany sphatase measurementOrdered By: Laurence Hinds on 10-17-2024 ALP [Catalytic activity/Vol] 90 U/L 45-117 [facility] Serum or plasma calcium rhonda urement (mass/volume)Ordered By: Laurence Hinds on 10-17-2024 Calcium [Mass/Vol] 10.1 mg/dL 8.5-10.1 [facility] Serum or plasma creatinine m easurement (mass/volume)Ordered By: Laurence Hinds on 10-17-2024 Creatinine [Mass/Vol] 0.77 mg/dL 0.55-1.02 [facility] Comment on above: The validity of the calculated GFR & GFRAA in patients over 70 years has not been determined. Clinical correlation is essential. Serum or plasma urea nitroge n measurement (mass/volume)Ordered By: Laurence Hinds on 10-17-2024 Urea nitrogen [Mass/Vol] 19 mg/dL High 7-18 [facility] Sodium levelOrdered By: Lesa Hinds on 10-17-2024 Sodium [Moles/Vol] 130 mmol/L Low 136-145 [facility] Total proteinOrdered By: Sergio Hinds on 10-17-2024 Protein [Mass/Vol] 7.8 g/dL 6.4-8.2 [facility] White blood cell (WBC) count Ordered By: Laurence Hinds on 10-17-2024 WBC (Bld) [#/Vol] 6.7 10*3/uL 4.4-11.0 [facility] CBC W/Diff, Automatedon 07-16 Absolute Lymph 1.94 X10 3/uL Normal 0.83-4.51 [facility] Comment on above: Performed By: #### L 500.4050, L100.0100 #### [facility] [address] [place], [address] Absolute Neut 3.4 X10 3/uL Normal 2.0-7.7 [facility] Comment on above: Performed By: #### L 500.4050, L100.0100 #### [facility] [address] [place], [address] Basophils/100 WBC (Bld) 0.6 % Normal 0-1 [facility] Comment on above: Performed By: #### L 500.4050, L100.0100 #### [facility] [address] [place], [address] Eosinophils/100 WBC (Bld) 3.3 % Normal 0-5 [facility] Comment on above: Performed By: #### L 500.4050, L100.0100 #### [facility] [address] [place], [address] Erythrocyte distribution width (RBC) [Ratio] 14.2 % Normal 11.6-14.6 [facility] Comment on above: Performed By: #### L 500.4050, L100.0100 #### [facility] [address], [address] Hematocrit (Bld) [Volume fraction] 38.7 % Normal 37-47 [facility] Comment on above: Performed By: #### L 500.4050, L100.0100 #### [facility] [address] [place], [address] Hemoglobin (Bld) [Mass/Vol] 11.9 g/dL Low 12.0-15.0 [facility] Comment on above: Performed By: #### L 500.4050, L100.0100 #### [facility] [address] [place], [address] IG% 0.500 Normal 0.0-0.9 [facility] Comment on above: Result Comment: IG% - Immature Granulocytes (promyelocytes, myelocytes and metamyelocytes) > 1% indicates that a LEFT SHIFT is Present. Performed By: #### L 500.4050, L100.0100 #### [facility] [address] [place], [address] Lymphocytes/100 WBC (Bld) 30.6 % Normal 19-41 [facility] Comment on above: Performed By: #### L 500.4050, L100.0100 #### [facility] [address] [place], [address] MCH (RBC) [Entitic mass] 30.4 pg Normal 27.0-32.0 [facility] Comment on above: Performed By: #### L 500.4050, L100.0100 #### [facility] [address] [place], [address] MCHC (RBC) [Mass/Vol] 30.7 g/dL Low 32-36 [facility] Comment on above: Performed By: #### L 500.4050, L100.0100 #### [facility] [address] [place], [address] MCV (RBC) [Entitic vol] 99.0 fL Normal 81-99 [facility] Comment on above: Performed By: #### L 500.4050, L100.0100 #### [facility] [address] [place], [address] Monocytes/100 WBC (Bld) 12.3 % High 0-10 [facility] Comment on above: Performed By: #### L 500.4050, L100.0100 #### [facility] [address] [place], [address] Neutrophils/100 WBC (Bld) 52.7 % Normal 47-70 [facility] Comment on above: Performed By: #### L 500.4050, L100.0100 #### [facility] [address] [place], [address] Nucleated RBC (Bld) [#/Vol] 0 10*3/uL Normal 0-5 [facility] Comment on above: Performed By: #### L 500.4050, L100.0100 #### [facility] [address] [place], [address] Platelet mean volume (Bld) [Entitic vol] 10.1 fL Normal 6.2-12.0 [facility] Comment on above: Performed By: #### L 500.4050, L100.0100 #### [facility] [address] [place], [address] Platelets (Bld) [#/Vol] 266 10*3/uL Normal 150-450 [facility] Comment on above: Performed By: #### L 500.4050, L100.0100 #### [facility] [address] [place], [address] RBC (Bld) [#/Vol] 3.91 10*6/uL Low 4.2-5.4 [facility] Comment on above: Performed By: #### L 500.4050, L100.0100 #### [facility] [address] [place], [address] RDW SD 50.8 fl High 35.1-43.9 [facility] Comment on above: Performed By: #### L 500.4050, L100.0100 #### [facility] [address] [place], [address] WBC (Bld) [#/Vol] 6.4 10*3/uL Normal 4.4-11.0 [facility] Comment on above: Performed By: #### L 500.4050, L100.0100 #### [facility] [address] [place], [address] Comprehensive Metabolic [facility] 08-02-2024 Albumin [Mass/Vol] 3.7 g/dL Normal 3.2-5.0 [facility] Comment on above: Performed By: #### L 500.4050, L100.0100 #### [facility] [address] [place], [address] Albumin/Globulin [Mass ratio] 1.0 {ratio} Normal 0.9-2.4 [facility] Comment on above: Performed By: #### L 500.4050, L100.0100 #### [facility] [address] [place], [address] ALK P 76 U/L Normal 45-117 [facility] - [facility] Comment on above: Performed By: #### L 500.4050, L100.0100 #### [facility] [address] [place], [address] ALT [Catalytic activity/Vol] 19 U/L Normal 13-56 [facility] Comment on above: Performed By: #### L 500.4050, L100.0100 #### [facility] [address] [place], [address] AST [Catalytic activity/Vol] 16 U/L Normal 15-37 [facility] Comment on above: Performed By: #### L 500.4050, L100.0100 #### [facility] [address] [place], [address] Bilirubin [Mass/Vol] 0.40 mg/dL Normal 0.20-1.00 [facility] Comment on above: Result Comment: For patients on eltrombopag therapy, use of Dimension [place] TBIL is not recommended. Performed By: #### L 500.4050, L100.0100 #### [facility] [address] [place], [address] BUN/CRE 20.1 RATIO High 10-20 [facility] Comment on above: Performed By: #### L 500.4050, L100.0100 #### [facility] [address] [place], [address] CA,Total 9.9 mg/dL Normal 8.5-10.1 [facility] Comment on above: Performed By: #### L 500.4050, L100.0100 #### [facility] [address] [place], [address] Chloride [Moles/Vol] 98 mmol/L Normal 98-107 [facility] Comment on above: Performed By: #### L 500.4050, L100.0100 #### [facility] [address] [place], [address] CO2 [Moles/Vol] 27.0 mmol/L Normal 21.0-32.0 [facility] Comment on above: Performed By: #### L 500.4050, L100.0100 #### [facility] [address] [place], [address] Creatinine [Mass/Vol] 0.80 mg/dL Normal 0.55-1.02 [facility] Comment on above: Result Comment: The validity of the calculated GFR GFRAA in patients over 70 years has not been determined. Clinical correlation is essential. Performed By: #### L 500.4050, L100.0100 #### [facility] [address] [place], [address] EST GFR - AA 87 mL/min Normal >60 [facility] Comment on above: Result Comment: Afri can Bangladeshi GFR Calc Performed By: #### L 500.4050, L100.0100 #### [facility] [address] [place], [address] GAP 6 Normal 5-15 [facility] Comment on above: Performed By: #### L 500.4050, L100.0100 #### [facility] [address] [place], [address] GFR/1.73 sq M.predicted among non-blacks MDRD (S/P/Bld) [Vol rate/Area] 72 mL/min/{1.73_m2} Normal >60 [facility] Comment on above: Result Comment: Non- GFR Calc Performed By: #### L 500.4050, L100.0100 #### [facility] [address] [place], [address] Globulin (S) [Mass/Vol] 3.6 g/dL Normal 2.2-4.2 [facility] Comment on above: Performed By: #### L 500.4050, L100.0100 #### [facility] [address] [place], [address] Glucose [Mass/Vol] 63 mg/dL Low 74-106 [facility] Comment on above: Performed By: #### L 500.4050, L100.0100 #### [facility] [address] [place], [address] Potassium [Moles/Vol] 4.0 mmol/L Normal 3.5-5.1 [facility] Comment on above: Performed By: #### L 500.4050, L100.0100 #### [facility] [address] [place], [address] Sodium [Moles/Vol] 131 mmol/L Low 136-145 [facility] Comment on above: Performed By: #### L 500.4050, L100.0100 #### [facility] [address] [place], [address] T PROT 7.3 g/dL Normal 6.4-8.2 [facility] Comment on above: Performed By: #### L 500.4050, L100.0100 #### [facility] [address] [place], [address] Urea nitrogen [Mass/Vol] 16 mg/dL Normal 7-18 [facility] Comment on above: Performed By: #### L 500.4050, L100.0100 #### [facility] [address] [place], [address] CNOVon 05-25-2024 CNOV Office Visit (INTMWS ) YANN ADAIR ([id number]) 1935 F Date Time Provider Department 05/25/24 2:40 PM FITZ WALTERS INTMWS During your visit today, we recorded the following information about you: Temperature Pulse Respiration Blood pressure 97.4 degrees 72/minute 20/minute 126/76 Weight 67.1 kg Fitz Walters MD 05/25/2024 3:19 PM Signed This note was created using [employer]. Subjective Yann Adair is a 88 year [...] [1177] P (more content not included)... Normal [facility] HEMOGLOBIN A1C (POC)on 05-25 HbA1c (Bld) [Mass fraction] 5.6 % 4.3 - 5.6 % [facility] Comment on above: Location:[address], [address] Point of care (POC) Hemoglobin A1c (HGBA1C) [...] specific diabetes management situations: The POC device cafeteria monitor provides a normal range of 4.2% to 6.5% for the HGBA1C POC test. However, the [place] [employer] guidelines indicate that patients with [...] anemia) that alter red blood cell lifespan. [facility] CBC W/Diff, Automatedon 06-2 Absolute Lymph 1.66 X10 3/uL Normal 0.83-4.51 [facility] Comment on above: Performed By: #### L 500.4050, L100.0100 #### [facility] [address] [place], [address] Absolute Neut 4.3 X10 3/uL Normal 2.0-7.7 [facility] Comment on above: Performed By: #### L 500.4050, L100.0100 #### [facility] [address] [place], [address] Basophils/100 WBC (Bld) 0.4 % Normal 0-1 [facility] Comment on above: Performed By: #### L 500.4050, L100.0100 #### [facility] [address] [place], [address] Eosinophils/100 WBC (Bld) 1.9 % Normal 0-5 [facility] Comment on above: Performed By: #### L 500.4050, L100.0100 #### [facility] [address] [place], [address] Erythrocyte distribution width (RBC) [Ratio] 13.6 % Normal 11.6-14.6 [facility] Comment on above: Performed By: #### L 500.4050, L100.0100 #### [facility] [address] [place], [address] Hematocrit (Bld) [Volume fraction] 38.8 % Normal 37-47 [facility] Comment on above: Performed By: #### L 500.4050, L100.0100 #### [facility] [address] [place], [address] Hemoglobin (Bld) [Mass/Vol] 12.0 g/dL Normal 12.0-15.0 [facility] Comment on above: Performed By: #### L 500.4050, L100.0100 #### [facility] [address] [place], [address] IG% 0.100 Normal 0.0-0.9 [facility] Comment on above: Result Comment: IG% - Immature Granulocytes (promyelocytes, myelocytes and metamyelocytes) > 1% indicates that a LEFT SHIFT is Present. Performed By: #### L 500.4050, L100.0100 #### [facility] [address] [place], [address] Lymphocytes/100 WBC (Bld) 24.6 % Normal 19-41 [facility] Comment on above: Performed By: #### L 500.4050, L100.0100 #### [facility] [address] [place], [address] MCH (RBC) [Entitic mass] 30.6 pg Normal 27.0-32.0 [facility] Comment on above: Performed By: #### L 500.4050, L100.0100 #### [facility] [address] [place], [address] MCHC (RBC) [Mass/Vol] 30.9 g/dL Low 32-36 [facility] Comment on above: Performed By: #### L 500.4050, L100.0100 #### [facility] [address] [place], [address] MCV (RBC) [Entitic vol] 99.0 fL Normal 81-99 [facility] Comment on above: Performed By: #### L 500.4050, L100.0100 #### [facility] [address] [place], [address] Monocytes/100 WBC (Bld) 9.8 % Normal 0-10 [facility] Comment on above: Performed By: #### L 500.4050, L100.0100 #### [facility] [address] [place], [address] Neutrophils/100 WBC (Bld) 63.2 % Normal 47-70 [facility] Comment on above: Performed By: #### L 500.4050, L100.0100 #### [facility] [address] [place], [address] Nucleated RBC (Bld) [#/Vol] 0 10*3/uL Normal 0-5 [facility] Comment on above: Performed By: #### L 500.4050, L100.0100 #### [facility] [address] [place], [address] Platelet mean volume (Bld) [Entitic vol] 10.2 fL Normal 6.2-12.0 [facility] Comment on above: Performed By: #### L 500.4050, L100.0100 #### [facility] [address] [place], [address] Platelets (Bld) [#/Vol] 290 10*3/uL Normal 150-450 [facility] Comment on above: Performed By: #### L 500.4050, L100.0100 #### [facility] [address] [place], [address] RBC (Bld) [#/Vol] 3.92 10*6/uL Low 4.2-5.4 [facility] Comment on above: Performed By: #### L 500.4050, L100.0100 #### [facility] [address] [place], [address] RDW SD 48.4 fl High 35.1-43.9 [facility] Comment on above: Performed By: #### L 500.4050, L100.0100 #### [facility] [address] [place], [address] WBC (Bld) [#/Vol] 6.7 10*3/uL Normal 4.4-11.0 [facility] Comment on above: Performed By: #### L 500.4050, L100.0100 #### [facility] [address] [place], [address] Comprehensive Metabolic Prof ilon 05-05-2024 Albumin [Mass/Vol] 3.7 g/dL Normal 3.2-5.0 [facility] Comment on above: Order Comment: C Performed By: #### L 500.4050, L100.0100 #### [facility] [address] [place], [address] Albumin/Globulin [Mass ratio] 0.9 {ratio} Normal 0.9-2.4 [facility] Comment on above: Order Comment: C Performed By: #### L 500.4050, L100.0100 #### [facility] [address] [place], [address] ALK P 76 U/L Normal 45-117 [facility] Comment on above: Order Comment: C Performed By: #### L 500.4050, L100.0100 #### [facility] [address] [place], [address] ALT [Catalytic activity/Vol] 24 U/L Normal 13-56 [facility] Comment on above: Order Comment: C Performed By: #### L 500.4050, L100.0100 #### [facility] [address] [place], [address] AST [Catalytic activity/Vol] 21 U/L Normal 15-37 [facility] Comment on above: Order Comment: C Performed By: #### L 500.4050, L100.0100 #### [facility] [address] [place], [address] Bilirubin [Mass/Vol] 0.40 mg/dL Normal 0.20-1.00 [facility] Comment on above: Order Comment: C Result Comment: For patients on eltrombopag therapy, use of Dimension [place] TBIL is not recommended. Performed By: #### L 500.4050, L100.0100 #### [facility] [address] [place], [address] BUN/CRE 24.6 RATIO High 10-20 [facility] Comment on above: Order Comment: C Performed By: #### L 500.4050, L100.0100 #### [facility] [address] [place], [address] CA,Total 9.7 mg/dL Normal 8.5-10.1 [facility] Comment on above: Order Comment: C Performed By: #### L 500.4050, L100.0100 #### [facility] [address] [place], [address] Chloride [Moles/Vol] 97 mmol/L Low 98-107 [facility] Comment on above: Order Comment: C Performed By: #### L 500.4050, L100.0100 #### [facility] [address] [place], [address] CO2 [Moles/Vol] 27.0 mmol/L Normal 21.0-32.0 [facility] Comment on above: Order Comment: C Performed By: #### L 500.4050, L100.0100 #### [facility] [address] [place], [address] Creatinine [Mass/Vol] 0.77 mg/dL Normal 0.55-1.02 [facility] Comment on above: Order Comment: C Result Comment: The validity of the calculated GFR GFRAA in patients over 70 years has not been determined. Clinical correlation is essential. Performed By: #### L 500.4050, L100.0100 #### [facility] [address] [place], [address] EST GFR - AA 91 mL/min Normal >60 [facility] Comment on above: Order Comment: C Result Comment: Afri can Bangl[place] GFR Calc Performed By: #### L 500.4050, L100.0100 #### [facility] [address] [place], [address] GAP 9 Normal 5-15 [facility] Comment on above: Order Comment: C Performed By: #### L 500.4050, L100.0100 #### [facility] [address] [place], [address] GFR/1.73 sq M.predicted among non-blacks MDRD (S/P/Bld) [Vol rate/Area] 75 mL/min/{1.73_m2} Normal >60 [facility] Comment on above: Order Comment: C Result Comment: Non- GFR Calc Performed By: #### L 500.4050, L100.0100 #### [facility] [address] [place], [address] Globulin (S) [Mass/Vol] 3.9 g/dL Normal 2.2-4.2 [facility] Comment on above: Order Comment: C Performed By: #### L 500.4050, L100.0100 #### [facility] [address] [place], [address] Glucose [Mass/Vol] 99 mg/dL Normal 74-106 [facility] Comment on above: Order Comment: C Performed By: #### L 500.4050, L100.0100 #### [facility] [address] [place], [address] Potassium [Moles/Vol] 4.2 mmol/L Normal 3.5-5.1 [facility] Comment on above: Order Comment: C Performed By: #### L 500.4050, L100.0100 #### [facility] [address] [place], [address] Sodium [Moles/Vol] 133 mmol/L Low 136-145 [facility] Comment on above: Order Comment: C Performed By: #### L 500.4050, L100.0100 #### [facility] [address] [place], [address] T PROT 7.6 g/dL Normal 6.4-8.2 [facility] Comment on above: Order Comment: C Performed By: #### L 500.4050, L100.0100 #### [facility] [address] [place], [address] Urea nitrogen [Mass/Vol] 19 mg/dL High 7-18 [facility] Comment on above: Order Comment: C Performed By: #### L 500.4050, L100.0100 #### [facility] [address] [place], [address] Absolute lymphocyte countOrd ered By: Laurence Hinds on 01-20-2024 Lymphocytes Auto (Unsp spec) [#/Vol] 1.92 10*3/uL 0.83-4.51 [facility] Automated lymphocyte count a s percentage of total leukocytesOrdered By: Laurence Hinds on 01-20-2024 Lymphocytes/100 WBC Auto (Unsp spec) 27.6 % 19-41 [facility] Basophil percentageOrdered B y: Laurence Hinds on 01-20-2024 Basophils/100 WBC (Bld) 0.6 % 0-1 [facility] Bilirubin [Mass/Vol] 0.30 mg/dL 0.20-1.00 [facility] Comment on above: For patients on eltr ombopag therapy, use of Dimension [place] TBIL is not recommended. Chloride [Moles/Vol] 101 mmol/L 98-107 [facility] Eosinophils/100 WBC (Bld) 2.2 % 0-5 [facility] Glucose [Mass/Vol] 96 mg/dL 74-106 [facility] Hemoglobin (Bld) [Mass/Vol] 12.2 g/dL 12.0-15.0 [facility] Monocytes/100 WBC (Bld) 12.5 % 0-10 [facility] Neutrophils (Bld) [#/Vol] 4.0 10*3/uL 2.0-7.7 [facility] Neutrophils/100 WBC (Bld) 56.8 % 47-70 [facility] Potassium [Moles/Vol] 4.0 mmol/L 3.5-5.1 [facility] Protein [Mass/Vol] 7.4 g/dL 6.4-8.2 [facility] Sodium [Moles/Vol] 135 mmol/L 136-145 [facility] WBC (Bld) [#/Vol] 7.0 10*3/uL 4.4-11.0 [facility] Determination of erythrocyte mean corpuscular volume (MCV)Ordered By: Laurence Hinds on 01-20-2024 MCV (RBC) [Entitic vol] 100.8 fL 81-99 [facility] Erythrocyte distribution wid th ratioOrdered By: Laurence Hinds on 01-20-2024 Erythrocyte distribution width (RBC) [Ratio] 13.2 % 11.6-14.6 [facility] Erythrocyte distribution wid th standard deviationOrdered By: Laurence Hinds on 01-20-2024 Erythrocyte distribution width (RBC) [Entitic vol] 48.4 fL 35.1-43.9 [facility] Hematocrit Auto (Bld) [Volum e fraction]Ordered By: Laurence Hinds on 01-20-2024 Hematocrit (Bld) [Volume fraction] 40.0 % 37-47 [facility] Immature granulocytes/100 WB C Auto (Bld)Ordered By: Laurence Hinds on 01-20-2024 Immature granulocytes/100 WBC (Bld) 0.300 % 0.0-0.9 [facility] Comment on above: IG% - Immature Granu locytes (promyelocytes, myelocytes and metamyelocytes) > 1% indicates that a LEFT SHIFT is Present. Laboratory - Chemistry and C hemistry - challengeOrdered By: Laurence Hinds on 01-20-2024 Albumin/Globulin [Mass ratio] 1.0 {ratio} 0.9-2.4 [facility] ALP [Catalytic activity/Vol] 72 U/L 45-117 [facility] ALT [Catalytic activity/Vol] 22 U/L 13-56 [facility] CO2 [Moles/Vol] 28.0 mmol/L 21.0-32.0 [facility] Globulin (S) [Mass/Vol] 3.7 g/dL 2.2-4.2 [facility] Urea nitrogen/Creatinine [Mass ratio] 28.8 mg/mg 10-20 [facility] - Hematology and Cell countsOrdered By: Laurence Hinds on 01-20-2024 MCH (RBC) [Entitic mass] 30.7 pg 27.0-32.0 [facility] MCHC (RBC) [Mass/Vol] 30.5 g/dL 32-36 [facility] Nucleated RBC/100 WBC (Bld) [Ratio] 0 % 0-5 [facility] Platelet mean volume (Bld) [Entitic vol] 10.5 fL 6.2-12.0 [facility] Platelets (Bld) [#/Vol] 270 10*3/uL 150-450 [facility] No Panel InformationOrdered By: Laurence Hinds on 01-20-2024 Estimated GFR (MDRD) Amer 83 mL/min >60 [facility] Comment on above: GFR Calc Estimated GFR (MDRD) Non-Af Amer 69 mL/min >60 [facility] Comment on above: Non- GFR Calc RBC Auto (Bld) [#/Vol]Ordere d By: Laurence Hinds on 01-20-2024 RBC (Bld) [#/Vol] 3.97 10*6/uL 4.2-5.4 [facility] Serum or plasma calcium rhonda urement (mass/volume)Ordered By: Laurence Hinds on 01-20-2024 Calcium [Mass/Vol] 9.9 mg/dL 8.5-10.1 [facility] Serum or plasma creatinine m easurement (mass/volume)Ordered By: Laurence Hinds on 01-20-2024 Creatinine [Mass/Vol] 0.83 mg/dL 0.55-1.02 [facility] Comment on above: The validity of the calculated GFR & GFRAA in patients over 70 years has not been determined. Clinical correlation is essential. Serum or plasma urea nitroge n measurement (mass/volume)Ordered By: Laurence Hinds on 03-07-2024 Urea nitrogen [Mass/Vol] 24 mg/dL 7-18 [facility] Thin prep Papanicolaou smear with manual screeningOrdered By: Laurence Hidns on 01-20-2024 Thin prep Papanicolaou smear with manual screening 3.7 g/dL 3.2-5.0 [facility] Thin prep Papanicolaou smear with manual screening 15 U/L 15-37 [facility] Thin prep Papanicolaou smear with manual screening 6 5-15 [facility] CNOVon 01-13-2024 CNOV Office Visit (PODIWS ) YANN ADAIR ([id number]) 1935 F Date Time Provider Department 01/13/24 [...] Objective: Patient presents to clinic ambulating in [facility] Vasc: DP and PT pulses [...] Angelina Godwin DPM Referring Provider: ANGELINA GODWIN [[id number]] Allergies As of Date: 01/13/2024 Noted Allergy [...] D deficiency (more content not included)... Normal [facility] Absolute lymphocyte countOrd ered By: Laurence Hinds on 10-14-2023 Lymphocytes Auto (Unsp spec) [#/Vol] 1.79 10*3/uL 0.83-4.51 [facility] Basophil percentageOrdered B y: Laurence Hinds on 10-14-2023 Basophils/100 WBC (Bld) 0.5 % 0-1 [facility] Bilirubin [Mass/Vol] 0.40 mg/dL 0.20-1.00 [facility] Comment on above: For patients on eltr ombopag therapy, use of Dimension [place] TBIL is not recommended. Chloride [Moles/Vol] 102 mmol/L 98-107 [facility] Eosinophils/100 WBC (Bld) 2.6 % 0-5 [facility] Glucose [Mass/Vol] 94 mg/dL 74-106 [facility] Neutrophils (Bld) [#/Vol] 4.8 10*3/uL 2.0-7.7 [facility] Neutrophils/100 WBC (Bld) 62.2 % 47-70 [facility] Potassium [Moles/Vol] 4.6 mmol/L 3.5-5.1 [facility] Protein [Mass/Vol] 7.6 g/dL 6.4-8.2 [facility] Sodium [Moles/Vol] 137 mmol/L 136-145 [facility] WBC (Bld) [#/Vol] 7.6 10*3/uL 4.4-11.0 [facility] Blood erythrocytes count (nu mber/volume)Ordered By: Laurence Hinds on 10-14-2023 RBC (Bld) [#/Vol] 4.07 10*6/uL 4.2-5.4 [facility] Blood hemoglobin measurement (mass/volume)Ordered By: Laurence Hinds on 10-14-2023 Hemoglobin (Bld) [Mass/Vol] 12.4 g/dL 12.0-15.0 [facility] Blood lymphocytes/100 leukoc ytesOrdered By: Laurence Hinds on 10-14-2023 Lymphocytes/100 WBC (Bld) 23.5 % 19-41 [facility] Blood monocytes/100 leukocyt esOrdered By: Laurence Hinds on 10-14-2023 Monocytes/100 WBC (Bld) 10.9 % 0-10 [facility] Blood platelet mean volumeOr dered By: Laurence Hinds on 10-14-2023 Platelet mean volume (Bld) [Entitic vol] 10.2 fL 6.2-12.0 [facility] Determination of erythrocyte mean corpuscular volume (MCV)Ordered By: Laurence Hinds on 10-14-2023 MCV (RBC) [Entitic vol] 99.5 fL 81-99 [facility] Hematocrit Auto (Bld) [Volum e fraction]Ordered By: [facility] Lizet on 10-14-2023 Hematocrit (Bld) [Volume fraction] 40.5 % 37-47 [facility] Laboratory - Chemistry and C hemistry - challengeOrdered By: [facility] Lizet on 10-14-2023 ALP [Catalytic activity/Vol] 74 U/L 45-117 [facility] ALT [Catalytic activity/Vol] 24 U/L 13-56 [facility] CO2 [Moles/Vol] 28.0 mmol/L 21.0-32.0 [facility] Globulin (S) [Mass/Vol] 3.9 g/dL 2.2-4.2 [facility] Urea nitrogen/Creatinine [Mass ratio] 25.9 mg/mg 10-20 [facility] Laboratory - Hematology and Cell countsOrdered By: [facility] Lizet on 10-14-2023 Erythrocyte distribution width (RBC) [Entitic vol] 51.2 fL 35.1-43.9 [facility] Erythrocyte distribution width (RBC) [Ratio] 14.1 % 11.6-14.6 [facility] Immature granulocytes/100 WBC (Bld) 0.300 % 0.0-0.9 [facility] Comment on above: IG% - Immature Granu locytes (promyelocytes, myelocytes and metamyelocytes) > 1% indicates that a LEFT SHIFT is Present. MCH (RBC) [Entitic mass] 30.5 pg 27.0-32.0 [facility] Nucleated RBC/100 WBC (Bld) [Ratio] 0 % 0-5 [facility] MCHC Auto (RBC) [Mass/Vol]Or dered By: Laurenceshelley Hinds on 10-14-2023 MCHC (RBC) [Mass/Vol] 30.6 g/dL 32-36 [facility] No Panel InformationOrdered By: Laurence Hinds on 10-14-2023 Estimated GFR (MDRD) Amer 86 mL/min >60 [facility] Comment on above: GFR Calc Estimated GFR (MDRD) Non-Af Amer 71 mL/min >60 [facility] Comment on above: Non- GFR Calc Platelets bldOrdered By: Sergio Hinds on 10-14-2023 Platelets (Bld) [#/Vol] 259 10*3/uL 150-450 [facility] Serum or plasma albumin rhonda urement (mass/volume)Ordered By: Laurence Hinds on 10-14-2023 Albumin [Mass/Vol] 3.7 g/dL 3.2-5.0 [facility] Serum or plasma albumin/glob ulin mass ratioOrdered By: Laurence Hinds on 10-14-2023 Albumin/Globulin [Mass ratio] 0.9 {ratio} 0.9-2.4 [facility] Serum or plasma calcium rhonda urement (mass/volume)Ordered By: Laurence Hinds on 10-14-2023 Calcium [Mass/Vol] 9.4 mg/dL 8.5-10.1 [facility] Serum or plasma creatinine m easurement (mass/volume)Ordered By: Laurence Hinds on 10-14-2023 Creatinine [Mass/Vol] 0.81 mg/dL 0.55-1.02 [facility] Comment on above: The validity of the calculated GFR & GFRAA in patients over 70 years has not been determined. Clinical correlation is essential. Serum or plasma urea nitroge n measurement (mass/volume)Ordered By: Laurence Hinds on 10-14-2023 Urea nitrogen [Mass/Vol] 21 mg/dL 7-18 [facility] Thin prep Papanicolaou smear with manual screeningOrdered By: Laurence Hinds on 10-14-2023 Thin prep Papanicolaou smear with manual screening 19 U/L 15-37 [facility] Thin prep Papanicolaou smear with manual screening 7 5-15 [facility] Absolute lymphocyte countOrd ered By: Laurence Hinds on 07-16-2023 Lymphocytes Auto (Unsp spec) [#/Vol] 1.94 10*3/uL 0.83-4.51 [facility] Basophil percentageOrdered B y: Laurence Hinds on 07-16-2023 Basophils/100 WBC (Bld) 0.8 % 0-1 [facility] Bilirubin [Mass/Vol] 0.40 mg/dL 0.20-1.00 [facility] Comment on above: For patients on eltr ombopag therapy, use of Dimension [place] TBIL is not recommended. Chloride [Moles/Vol] 100 mmol/L 98-107 [facility] Eosinophils/100 WBC (Bld) 3.1 % 0-5 [facility] Glucose [Mass/Vol] 97 mg/dL 74-106 [facility] Neutrophils (Bld) [#/Vol] 3.5 10*3/uL 2.0-7.7 [facility] Neutrophils/100 WBC (Bld) 53.4 % 47-70 [facility] Potassium [Moles/Vol] 5.1 mmol/L 3.5-5.1 [facility] Protein [Mass/Vol] 7.9 g/dL 6.4-8.2 [facility] Sodium [Moles/Vol] 133 mmol/L 136-145 [facility] WBC (Bld) [#/Vol] 6.5 10*3/uL 4.4-11.0 [facility] Blood erythrocytes count (nu mber/volume)Ordered By: Laurence Hinds on 07-16-2023 RBC (Bld) [#/Vol] 4.30 10*6/uL 4.2-5.4 [facility] Blood hemoglobin measurement (mass/volume)Ordered By: Laurence Hinds on 07-16-2023 Hemoglobin (Bld) [Mass/Vol] 13.1 g/dL 12.0-15.0 [facility] Blood lymphocytes/100 leukoc ytesOrdered By: Laurence Hinds on 07-16-2023 Lymphocytes/100 WBC (Bld) 30.0 % 19-41 [facility] Blood monocytes/100 leukocyt esOrdered By: Laurence Hinds on 07-16-2023 Monocytes/100 WBC (Bld) 12.2 % 0-10 [facility] Blood platelet mean volumeOr dered By: Laurence Hinds on 07-16-2023 Platelet mean volume (Bld) [Entitic vol] 10.4 fL 6.2-12.0 [facility] Determination of erythrocyte mean corpuscular volume (MCV)Ordered By: Laurence Hinds on 07-16-2023 MCV (RBC) [Entitic vol] 100.0 fL 81-99 [facility] Hematocrit Auto (Bld) [Volum e fraction]Ordered By: Laurence Hinds on 07-16-2023 Hematocrit (Bld) [Volume fraction] 43.0 % 37-47 [facility] Laboratory - Chemistry and C hemistry - challengeOrdered By: Laurence Hinds on 07-16-2023 ALP [Catalytic activity/Vol] 86 U/L 45-117 [facility] ALT [Catalytic activity/Vol] 21 U/L 13-56 [facility] CO2 [Moles/Vol] 29.0 mmol/L 21.0-32.0 [facility] Globulin (S) [Mass/Vol] 4.0 g/dL 2.2-4.2 [facility] Urea nitrogen/Creatinine [Mass ratio] 25.3 mg/mg 10-20 [facility] Laboratory - Hematology and Cell countsOrdered By: Laurence Hinds on 07-16-2023 Erythrocyte distribution width (RBC) [Entitic vol] 47.9 fL 35.1-43.9 [facility] Erythrocyte distribution width (RBC) [Ratio] 13.0 % 11.6-14.6 [facility] Immature granulocytes/100 WBC (Bld) 0.500 % 0.0-0.9 [facility] Comment on above: IG% - Immature Granu locytes (promyelocytes, myelocytes and metamyelocytes) > 1% indicates that a LEFT SHIFT is Present. MCH (RBC) [Entitic mass] 30.5 pg 27.0-32.0 [facility] Nucleated RBC/100 WBC (Bld) [Ratio] 0 % 0-5 [facility] MCHC Auto (RBC) [Mass/Vol]Or dered By: Laurenceshelley Hinds on 07-16-2023 MCHC (RBC) [Mass/Vol] 30.5 g/dL 32-36 [facility] No Panel InformationOrdered By: Laurence Hinds on 07-16-2023 Estimated GFR (MDRD) Amer 89 mL/min >60 [facility] Comment on above: GFR Calc Estimated GFR (MDRD) Non-Af Amer 73 mL/min >60 [facility] Comment on above: Non- GFR Calc Platelets bldOrdered By: Sergio Hinds on 07-16-2023 Platelets (Bld) [#/Vol] 298 10*3/uL 150-450 [facility] Serum or plasma albumin rhonda urement (mass/volume)Ordered By: Laurence Hinds on 07-16-2023 Albumin [Mass/Vol] 3.9 g/dL 3.2-5.0 [facility] Serum or plasma albumin/glob ulin mass ratioOrdered By: Laurence Hinds on 07-16-2023 Albumin/Globulin [Mass ratio] 1.0 {ratio} 0.9-2.4 [facility] Serum or plasma calcium rhonda urement (mass/volume)Ordered By: Laurence Hinds on 07-16-2023 Calcium [Mass/Vol] 10.1 mg/dL 8.5-10.1 [facility] Serum or plasma creatinine m easurement (mass/volume)Ordered By: Laurence Hinds on 07-16-2023 Creatinine [Mass/Vol] 0.79 mg/dL 0.55-1.02 [facility] Comment on above: The validity of the calculated GFR & GFRAA in patients over 70 years has not been determined. Clinical correlation is essential. Serum or plasma urea nitroge n measurement (mass/volume)Ordered By: Laurence Hinds on 07-16-2023 Urea nitrogen [Mass/Vol] 20 mg/dL 7-18 [facility] Thin prep Papanicolaou smear with manual screeningOrdered By: Laurence Hinds on 07-16-2023 Thin prep Papanicolaou smear with manual screening 16 U/L 15-37 [facility] Thin prep Papanicolaou smear with manual screening 4 5-15 [facility] Albumin Elph [Mass/Vol]Order ed By: Chong Cantu on 07-25-2023 Albumin [Mass/Vol] 4.0 g/dL 2.9-4.4 [facility] Basophil percentageOrdered B y: Chong Cantu on 06-08-2023 Basophil percentage Comment . [facility] Comment on above: No monoclonality det ected.Performed at: [facility] [id number] [place], [place] [id number] Director: Rodrigo Hawley PhD, Phone: [phone] Interpretation of serum or p lasma protein pattern by immunofixation (narrative resultOrdered By: Chong Cantu on 06-08-2023 Protein Fractions Immunofixation Devendra [Interp] See comment [facility] Comment on above: Result: Not Observed No Panel InformationOrdered By: Chong Cantu on 06-08-2023 Addendum Document Comment . [facility] Comment on above: Protein electrophore sis scan will follow via computer,mail, or mapping editor delivery. Serum [id number] measu rement by electrophoresisOrdered By: Chong Cantu on 06-08-2023 Alpha 1 globulin Elph [Mass/Vol] 0.2 g/dL 0.0-0.4 [facility] Alpha 1 globulin Elph [Mass/Vol] 0.9 g/dL 0.4-1.0 [facility] Serum globulin measurement ( mass/volume)Ordered By: Chong Cantu on 06-08-2023 Globulin (S) [Mass/Vol] 3.1 g/dL 2.2-3.9 [facility] Serum or plasma IgA measurem ent (mass/volume)Ordered By: Chong Cantu on 06-08-2023 IgA [Mass/Vol] 204 mg/dL 64-422 [facility] Serum or plasma IgG measurem ent (mass/volume)Ordered By: Chong Cantu on 06-08-2023 IgG [Mass/Vol] 1225 mg/dL [phone] [facility] Serum or plasma IgM measurem ent (mass/volume)Ordered By: Chong Cantu on 06-08-2023 IgM [Mass/Vol] 120 mg/dL 26-217 [facility] Serum or plasma beta globuli n measurement by electrophoresis (mass/volume)Ordered By: Chong Cantu on 06-08-2023 Beta globulin Elph [Mass/Vol] 0.9 g/dL 0.7-1.3 [facility] Serum or plasma gamma globul in measurement by electrophoresis (mass/volume)Ordered By: Chong Robmiguel ángel on 06-08-2023 Gamma globulin Elph [Mass/Vol] 1.2 g/dL 0.4-1.8 [facility] Serum or plasma immunoelectr ophoresis interpretation (nominal result)Ordered By: Chong Cantu on 06-08-2023 Interpretation IEP [Interp] Comment . [facility] Comment on above: No monoclonality det ected. Thin prep Papanicolaou smear with manual screeningOrdered By: Chong Cantu on 06-08-2023 Thin prep Papanicolaou smear with manual screening 1.3 0.7-1.7 [facility] Total protein bloodOrdered B y: Chong Cantu on 06-08-2023 Protein [Mass/Vol] 7.1 g/dL 6.0-8.5 [facility] UA DIP, URINE (POC)on 2022 BILIRUBIN UA (POCT) Negative Negative [facility] CLARITY UA (POCT) Clear [facility] COLOR UA (POCT) Light yellow [facility] GLUCOSE UA (POCT) Negative Negative mg/dL [facility] HEMOGLOBIN/BLOOD UA (POCT) Small Abnormal Negative [facility] KETONE UA (POCT) Negative Negative mg/dL [facility] LEUKOCYTES UA (POCT) Small Abnormal Negative [facility] NITRITE UA (POCT) Negative Negative [facility] [place] PH UA (POCT) 5.5 4.5 - 8.0 [facility] Protein Ql (U) Negative Negative mg/dL [facility] SPECIFIC GRAVITY UA (POCT) 1.015 1.005 - 1.030 [facility] UROBILINOGEN UA (POCT) 0.2 E.U./dL Radha l E.U./dL [facility] Absolute lymphocyte countOrd ered By: Dr. Hinds on 03-15-2023 Lymphocytes Auto (Unsp spec) [#/Vol] 1.76 10*3/uL 0.83-4.51 [facility] Basophil percentageOrdered B y: Dr. Hinds on 03-15-2023 Basophils/100 WBC (Bld) 0.7 % 0-1 [facility] Bilirubin [Mass/Vol] 0.30 mg/dL 0.20-1.00 [facility] Comment on above: For patients on eltr ombopag therapy, use of Dimension [place] TBIL is not recommended. Chloride [Moles/Vol] 103 mmol/L 98-107 [facility] Eosinophils/100 WBC (Bld) 2.7 % 0-5 [facility] Glucose [Mass/Vol] 91 mg/dL 74-106 [facility] Neutrophils (Bld) [#/Vol] 2.9 10*3/uL 2.0-7.7 [facility] Neutrophils/100 WBC (Bld) 52.8 % 47-70 [facility] Potassium [Moles/Vol] 4.5 mmol/L 3.5-5.1 [facility] Protein [Mass/Vol] 7.2 g/dL 6.4-8.2 [facility] Sodium [Moles/Vol] 135 mmol/L 136-145 [facility] WBC (Bld) [#/Vol] 5.5 10*3/uL 4.4-11.0 [facility] Blood erythrocytes count (nu mber/volume)Ordered By: Dr. Hinds on 03-15-2023 RBC (Bld) [#/Vol] 3.97 10*6/uL 4.2-5.4 [facility] Blood hemoglobin measurement (mass/volume)Ordered By: Dr. Hinds on 03-15-2023 Hemoglobin (Bld) [Mass/Vol] 12.4 g/dL 12.0-15.0 [facility] Blood lymphocytes/100 leukoc ytesOrdered By: Dr. Hinds on 03-15-2023 Lymphocytes/100 WBC (Bld) 32.2 % 19-41 [facility] Blood monocytes/100 leukocyt esOrdered By: Dr. Hidns on 03-15-2023 Monocytes/100 WBC (Bld) 11.4 % 0-10 [facility] Blood platelet mean volumeOr dered By: Dr. Hinds on 03-15-2023 Platelet mean volume (Bld) [Entitic vol] 10.3 fL 6.2-12.0 [facility] Determination of erythrocyte mean corpuscular volume (MCV)Ordered By: Dr. Hinds on 03-15-2023 MCV (RBC) [Entitic vol] 101.0 fL 81-99 [facility] Hematocrit Auto (Bld) [Volum e fraction]Ordered By: Dr. Hinds on 03-15-2023 Hematocrit (Bld) [Volume fraction] 40.1 % 37-47 [facility] Laboratory - Chemistry and C hemistry - challengeOrdered By: Dr. Hinds on 03-15-2023 ALP [Catalytic activity/Vol] 84 U/L 45-117 [facility] ALT [Catalytic activity/Vol] 17 U/L 13-56 [facility] CO2 [Moles/Vol] 27.0 mmol/L 21.0-32.0 [facility] Globulin (S) [Mass/Vol] 3.7 g/dL 2.2-4.2 [facility] Urea nitrogen/Creatinine [Mass ratio] 24.4 mg/mg 10-20 [facility] Laboratory - Hematology and Cell countsOrdered By: Dr. Hinds on 03-15-2023 Erythrocyte distribution width (RBC) [Entitic vol] 49.8 fL 35.1-43.9 [facility] Erythrocyte distribution width (RBC) [Ratio] 13.6 % 11.6-14.6 [facility] Immature granulocytes/100 WBC (Bld) 0.200 % 0.0-0.9 [facility] Comment on above: IG% - Immature Granu locytes (promyelocytes, myelocytes and metamyelocytes) > 1% indicates that a LEFT SHIFT is Present. MCH (RBC) [Entitic mass] 31.2 pg 27.0-32.0 [facility] Nucleated RBC/100 WBC (Bld) [Ratio] 0 % 0-5 [facility] MCHC Auto (RBC) [Mass/Vol]Or dered By: Dr. Hinds on 03-15-2023 MCHC (RBC) [Mass/Vol] 30.9 g/dL 32-36 [facility] No Panel InformationOrdered By: Dr. Hinds on 03-15-2023 Estimated GFR (MDRD) Amer 96 mL/min >60 [facility] Comment on above: GFR Calc Estimated GFR (MDRD) Non-Af Amer 79 mL/min >60 [facility] Comment on above: Non- GFR Calc Platelets bldOrdered By: Dr. Hinds on 03-15-2023 Platelets (Bld) [#/Vol] 235 10*3/uL 150-450 [facility] Serum or plasma albumin rhonda urement (mass/volume)Ordered By: Dr. Hidns on 03-15-2023 Albumin [Mass/Vol] 3.5 g/dL 3.2-5.0 [facility] Serum or plasma albumin/glob ulin mass ratioOrdered By: Dr. Hinds on 03-15-2023 Albumin/Globulin [Mass ratio] 0.9 {ratio} 0.9-2.4 [facility] Serum or plasma calcium rhonda urement (mass/volume)Ordered By: Dr. Hinds on 03-15-2023 Calcium [Mass/Vol] 9.8 mg/dL 8.5-10.1 [facility] Serum or plasma creatinine m easurement (mass/volume)Ordered By: Dr. Hinds on 03-15-2023 Creatinine [Mass/Vol] 0.74 mg/dL 0.55-1.02 [facility] Comment on above: The validity of the calculated GFR & GFRAA in patients over 70 years has not been determined. Clinical correlation is essential. Serum or plasma urea nitroge n measurement (mass/volume)Ordered By: Dr. Hinds on 03-15-2023 Urea nitrogen [Mass/Vol] 18 mg/dL 7-18 [facility] Thin prep Papanicolaou smear with manual screeningOrdered By: Dr. Hinds on 03-15-2023 Thin prep Papanicolaou smear with manual screening 18 U/L 15-37 [facility] Thin prep Papanicolaou smear with manual screening 5 5-15 [facility] UA DIP, URINE (POC)on 2022 BILIRUBIN UA (POCT) Negative Negative [facility] CLARITY UA (POCT) Slightly Cloudy Cl [facility] COLOR UA (POCT) Yellow [facility] GLUCOSE UA (POCT) Negative Negative mg/dL [facility] HEMOGLOBIN/BLOOD UA (POCT) Moderate Abnormal Negative [facility] KETONE UA (POCT) Negative Negative mg/dL [facility] LEUKOCYTES UA (POCT) Small Abnormal [facility] NITRITE UA (POCT) Negative [facility] PH UA (POCT) 6.5 4.5 - 8.0 [facility] Protein Ql (U) Negative Negative mg/dL [facility] SPECIFIC GRAVITY UA (POCT) 1.015 1.005 - 1.030 [facility] UROBILINOGEN UA (POCT) 0.2 E.U./dL Radha l E.U./dL [facility] No Panel InformationOrdered By: Dr. Cantu on 02-02-2023 Free Lambda Light Chains, Quant 22.0 mg/L 5.7-26.3 [facility] Serum immunoglobulin kappa l ight chains/immunoglobulin lambda light chains mass ratioOrdered By: Dr. Cantu on 02-02-2023 Immunoglobulin light chains.kappa/Immunoglobul in light chains.lambda (S) [Mass ratio] 2.25 0.26-1.65 [facility] Comment on above: Performed at: [place] [id number] Director: Rodrigo Hawley PhD, Phone: [phone] Serum or plasma immunoglobul in kappa light chains measurement (mass/volume)Ordered By: Dr. Cantu on 02-02-2023 Immunoglobulin light chains.kappa [Mass/Vol] 49.4 mg/L 3.3-19.4 [facility] Absolute lymphocyte countOrd ered By: Dr. Hinds on 12-24-2022 Lymphocytes Auto (Unsp spec) [#/Vol] 1.80 10*3/uL 0.83-4.51 [facility] Basophil percentageOrdered B y: Dr. Hinds on 12-24-2022 Basophils/100 WBC (Bld) 0.6 % 0-1 [facility] Bilirubin [Mass/Vol] 0.40 mg/dL 0.20-1.00 [facility] Comment on above: For patients on eltr ombopag therapy, use of Dimension [place] TBIL is not recommended. Chloride [Moles/Vol] 100 mmol/L 98-107 [facility] Eosinophils/100 WBC (Bld) 1.9 % 0-5 [facility] Glucose [Mass/Vol] 91 mg/dL 74-106 [facility] Neutrophils (Bld) [#/Vol] 3.6 10*3/uL 2.0-7.7 [facility] Neutrophils/100 WBC (Bld) 57.1 % 47-70 [facility] Potassium [Moles/Vol] 4.3 mmol/L 3.5-5.1 [facility] Protein [Mass/Vol] 7.5 g/dL 6.4-8.2 [facility] Sodium [Moles/Vol] 135 mmol/L 136-145 [facility] WBC (Bld) [#/Vol] 6.3 10*3/uL 4.4-11.0 [facility] Blood erythrocytes count (nu mber/volume)Ordered By: Dr. Hinds on 12-24-2022 RBC (Bld) [#/Vol] 4.12 10*6/uL 4.2-5.4 [facility] Blood hemoglobin measurement (mass/volume)Ordered By: Dr. Hinds on 12-24-2022 Hemoglobin (Bld) [Mass/Vol] 12.8 g/dL 12.0-15.0 [facility] Blood lymphocytes/100 leukoc ytesOrdered By: Dr. Hinds on 12-24-2022 Lymphocytes/100 WBC (Bld) 28.4 % 19-41 [facility] Blood monocytes/100 leukocyt esOrdered By: Dr. Hinds on 12-24-2022 Monocytes/100 WBC (Bld) 11.8 % 0-10 [facility] Blood platelet mean volumeOr dered By: Dr. Hinds on 12-24-2022 Platelet mean volume (Bld) [Entitic vol] 10.6 fL 6.2-12.0 [facility] Determination of erythrocyte mean corpuscular volume (MCV)Ordered By: Dr. Hinds on 12-24-2022 MCV (RBC) [Entitic vol] 100.5 fL 81-99 [facility] Hematocrit Auto (Bld) [Volum e fraction]Ordered By: Dr. Hinds on 02-09-2023 Hematocrit (Bld) [Volume fraction] 41.4 % 37-47 [facility] Laboratory - Chemistry and C hemistry - challengeOrdered By: Dr. Hinds on 12-24-2022 ALP [Catalytic activity/Vol] 86 U/L 45-117 [facility] ALT [Catalytic activity/Vol] 15 U/L 13-56 [facility] CO2 [Moles/Vol] 28.0 mmol/L 21.0-32.0 [facility] Globulin (S) [Mass/Vol] 3.7 g/dL 2.2-4.2 [facility] Urea nitrogen/Creatinine [Mass ratio] 28.3 mg/mg 10-20 [facility] Laboratory - Hematology and Cell countsOrdered By: Dr. Hinds on 12-24-2022 Erythrocyte distribution width (RBC) [Entitic vol] 46.7 fL 35.1-43.9 [facility] Erythrocyte distribution width (RBC) [Ratio] 12.7 % 11.6-14.6 [facility] Immature granulocytes/100 WBC (Bld) 0.200 % 0.0-0.9 [facility] Comment on above: IG% - Immature Granu locytes (promyelocytes, myelocytes and metamyelocytes) > 1% indicates that a LEFT SHIFT is Present. MCH (RBC) [Entitic mass] 31.1 pg 27.0-32.0 [facility] Nucleated RBC/100 WBC (Bld) [Ratio] 0 % 0-5 [facility] MCHC Auto (RBC) [Mass/Vol]Or dered By: Dr. Hinds on 12-24-2022 MCHC (RBC) [Mass/Vol] 30.9 g/dL 32-36 [facility] No Panel InformationOrdered By: Dr. Hinds on 12-24-2022 Estimated GFR (MDRD) Amer 86 mL/min >60 [facility] Comment on above: GFR Calc Estimated GFR (MDRD) Non-Af Amer 71 mL/min >60 [facility] Comment on above: Non- GFR Calc Platelets bldOrdered By: Dr. Hinds on 12-24-2022 Platelets (Bld) [#/Vol] 275 10*3/uL 150-450 [facility] Serum or plasma albumin rhonda urement (mass/volume)Ordered By: Dr. Hinds on 12-24-2022 Albumin [Mass/Vol] 3.8 g/dL 3.2-5.0 [facility] Serum or plasma albumin/glob ulin mass ratioOrdered By: Dr. Hinds on 12-24-2022 Albumin/Globulin [Mass ratio] 1.0 {ratio} 0.9-2.4 [facility] Serum or plasma calcium rhonda urement (mass/volume)Ordered By: Dr. Hinds on 12-24-2022 Calcium [Mass/Vol] 9.9 mg/dL 8.5-10.1 [facility] Serum or plasma creatinine m easurement (mass/volume)Ordered By: Dr. Hinds on 12-24-2022 Creatinine [Mass/Vol] 0.81 mg/dL 0.55-1.02 [facility] Comment on above: The validity of the calculated GFR & GFRAA in patients over 70 years has not been determined. Clinical correlation is essential. Serum or plasma urea nitroge n measurement (mass/volume)Ordered By: Dr. Hinds on 12-24-2022 Urea nitrogen [Mass/Vol] 23 mg/dL 7-18 [facility] Thin prep Papanicolaou smear with manual screeningOrdered By: Dr. Hinds on 12-24-2022 Thin prep Papanicolaou smear with manual screening 17 U/L 15-37 [facility] Thin prep Papanicolaou smear with manual screening 7 5-15 [facility] Absolute lymphocyte counton 08-24-2022 Lymphocytes Auto (Unsp spec) [#/Vol] 1.68 10*3/uL 0.83-4.51 [facility] Work Phone: Basophil percentageon 2021 Basophils/100 WBC (Bld) 0.4 % 0-1 [facility] Work Phone: Bilirubin [Mass/Vol] 0.40 mg/dL 0.20-1.00 [facility] Work Phone: Comment on above: For patients on eltr ombopag therapy, use of Dimension [place] TBIL is not recommended. Chloride [Moles/Vol] 102 mmol/L 98-107 [facility]: Eosinophils/100 WBC (Bld) 2.0 % 0-5 [facility] Work Phone: Glucose [Mass/Vol] 86 mg/dL 74-106 [facility] Work Phone: Neutrophils (Bld) [#/Vol] 2.9 10*3/uL 2.0-7.7 [facility] Work Phone: Neutrophils/100 WBC (Bld) 56.1 % 47-70 [facility] Work Phone: Potassium [Moles/Vol] 4.1 mmol/L 3.5-5.1 [facility] Work Phone: Protein [Mass/Vol] 7.6 g/dL 6.4-8.2 [facility] Work Phone: Sodium [Moles/Vol] 135 mmol/L 136-145 [facility] Work Phone: WBC (Bld) [#/Vol] 5.1 10*3/uL 4.4-11.0 [facility] Work Phone: Blood erythrocytes count (nu mber/volume)on 08-24-2022 RBC (Bld) [#/Vol] 3.71 10*6/uL 4.2-5.4 [facility] Work Phone: Blood hemoglobin measurement (mass/volume)on 08-24-2022 Hemoglobin (Bld) [Mass/Vol] 11.6 g/dL 12.0-15.0 [facility] Work Phone: Blood lymphocytes/100 leukoc yteson 08-24-2022 Lymphocytes/100 WBC (Bld) 33.0 % 19-41 [facility] Work Phone: Blood monocytes/100 leukocyt eson 08-24-2022 Monocytes/100 WBC (Bld) 8.3 % 0-10 [facility] Work Phone: Blood platelet mean volumeon 08-24-2022 Platelet mean volume (Bld) [Entitic vol] 9.9 fL 6.2-12.0 [facility] Work Phone: [phone] Determination of erythrocyte mean corpuscular volume (MCV)on 08-24-2022 MCV (RBC) [Entitic vol] 101.9 fL 81-99 [facility] Work Phone: [phone] Hematocrit Auto (Bld) [Volum e fraction]on 08-24-2022 Hematocrit (Bld) [Volume fraction] 37.8 % 37-47 [facility] Work Phone: Laboratory - Chemistry and C hemistry - challengeon 08-24-2022 ALP [Catalytic activity/Vol] 82 U/L 45-117 [facility] Work Phone: [phone] ALT [Catalytic activity/Vol] 39 U/L 13-56 [facility] Work Phone: [phone] CO2 [Moles/Vol] 29.0 mmol/L 21.0-32.0 [facility] Work Phone: [phone] Globulin (S) [Mass/Vol] 3.9 g/dL 2.2-4.2 [facility] Work Phone: [phone] Urea nitrogen/Creatinine [Mass ratio] 23.6 mg/mg 10-20 [facility] Work Phone: [phone] Laboratory - Hematology and Cell countson 08-24-2022 Erythrocyte distribution width (RBC) [Entitic vol] 51.7 fL 35.1-43.9 [facility] Work Phone: [phone] Erythrocyte distribution width (RBC) [Ratio] 14.4 % 11.6-14.6 [facility] Work Phone: [phone] Immature granulocytes/100 WBC (Bld) 0.200 % 0.0-0.9 [facility] Work Phone: [phone] Comment on above: IG% - Immature Granu locytes (promyelocytes, myelocytes and metamyelocytes) > 1% indicates that a LEFT SHIFT is Present. MCH (RBC) [Entitic mass] 31.3 pg 27.0-32.0 [facility] Work Phone: Nucleated RBC/100 WBC (Bld) [Ratio] 0 % 0-5 [facility] Work Phone: MCHC Auto (RBC) [Mass/Vol]on 08-24-2022 MCHC (RBC) [Mass/Vol] 30.7 g/dL 32-36 [facility] Work Phone: No Panel Informationon 08-24 Estimated GFR (MDRD) Amer 99 mL/min >60 [facility] Work Phone: Comment on above: GFR Calc Estimated GFR (MDRD) Non-Af Amer 82 mL/min >60 [facility] Work Phone: Comment on above: Non- GFR Calc Platelets bldon 08-24-2022 Platelets (Bld) [#/Vol] 278 10*3/uL 150-450 [facility] Work Phone: Serum or plasma albumin rhonda urement (mass/volume)on 08-24-2022 Albumin [Mass/Vol] 3.7 g/dL 3.2-5.0 [facility] Work Phone: Serum or plasma albumin/glob ulin mass ratioon 08-24-2022 Albumin/Globulin [Mass ratio] 0.9 {ratio} 0.9-2.4 [facility] Work Phone: Serum or plasma calcium rhonda urement (mass/volume)on 08-24-2022 Calcium [Mass/Vol] 11.1 mg/dL 8.5-10.1 [facility] Work Phone: Serum or plasma creatinine m easurement (mass/volume)on 08-24-2022 Creatinine [Mass/Vol] 0.72 mg/dL 0.55-1.02 [facility] Work Phone: Comment on above: The validity of the calculated GFR & GFRAA in patients over 70 years has not been determined. Clinical correlation is essential. Serum or plasma urea nitroge n measurement (mass/volume)on 08-24-2022 Urea nitrogen [Mass/Vol] 17 mg/dL 7-18 [facility] Work Phone: [phone] Thin prep Papanicolaou smear with manual screeningon 08-24-2022 Thin prep Papanicolaou smear with manual screening 37 U/L 15-37 [facility] Work Phone: [phone] Thin prep Papanicolaou smear with manual screening 4 5-15 [facility] Work Phone: [phone] UA DIP, URINE (POC)on 2021 BILIRUBIN UA (POCT) Negative Negative [facility] CLARITY UA (POCT) Cloudy [facility] COLOR UA (POCT) Light yellow [facility] GLUCOSE UA (POCT) Negative Negative mg/dL [facility] HEMOGLOBIN/BLOOD UA (POCT) Small Abnormal Negative [facility] KETONE UA (POCT) Negative Negative mg/dL [facility] LEUKOCYTES UA (POCT) Moderate Abnormal Negative [facility] NITRITE UA (POCT) Positive Abnormal Negative [facility] PH UA (POCT) 6.5 4.5 - 8.0 [facility] Protein Ql (U) Negative Negative mg/dL [facility] SPECIFIC GRAVITY UA (POCT) 1.020 1.005 - 1.030 [facility] UROBILINOGEN UA (POCT) 0.2 E.U./dL Radha l E.U./dL [facility] Iron measurement (mass/mass) on 06-01-2022 Iron (Unsp spec) [Mass/Mass] 58 ug/dL 50-170 [facility] Work Phone: [phone] Laboratory - Chemistry and C hemistry - challengeon 06-01-2022 Cobalamin (Vitamin B12) [Mass/Vol] 215 pg/mL 211-911 [facility] Work Phone: [phone] Panel Informationon 06-01 Levetiracetam (Keppra) Level <1.0 ug/mL 10.0-40.0 [facility] Work Phone: [phone] Comment on above: Performed at: [address] [id number] Director: Panda Johnson MD, Phone: [phone] Thyroid Stimulating Hormone (TSH) 2.34 uIU/mL 0.358-3.74 [facility] Work Phone: Whole Blood Vitamin B1 Level 112.2 nmol/L 66.5-200.0 [facility] Work Phone: [phone] Serum or plasma calcitriol m easurement (mass/volume)on 06-01-2022 1,25-dihydroxyvitamin D3 [Mass/Vol] 61.5 pg/mL 24.8-81.5 [facility] Work Phone: Comment on above: Please note refere nce interval changePerformed at: [employer] [facility] [id number] Director: Panda Johnson MD, Phone: [phone] Serum or plasma ferritin savana surement (mass/volume)on 06-01-2022 Ferritin [Mass/Vol] 67 ng/mL 8-252 [facility] Work Phone: [phone] Serum or plasma folate measu rement (mass/volume)on 06-01-2022 Folate [Mass/Vol] ng/mL 3.1-55.4 [facility] Work Phone: [phone] Absolute lymphocyte counton 05-27-2022 Lymphocytes Auto (Unsp spec) [#/Vol] 1.43 10*3/uL 0.83-4.51 [facility] Work Phone: [phone] Basophil percentageon 2021 Basophils/100 WBC (Bld) 0.4 % 0-1 [facility] Work Phone: [phone] Bilirubin [Mass/Vol] 0.30 mg/dL 0.20-1.00 [facility] Work Phone: [phone] Comment on above: For patients on eltr ombopag therapy, use of Dimension [place] TBIL is not recommended. Chloride [Moles/Vol] 101 mmol/L 98-107 [facility] Work Phone: Eosinophils/100 WBC (Bld) 2.2 % 0-5 [facility] Work Phone: [phone] Glucose [Mass/Vol] 81 mg/dL 74-106 [facility] Work Phone: Neutrophils (Bld) [#/Vol] 4.3 10*3/uL 2.0-7.7 [facility] Work Phone: Neutrophils/100 WBC (Bld) 64.0 % 47-70 [facility] Work Phone: Potassium [Moles/Vol] 4.4 mmol/L 3.5-5.1 [facility] Work Phone: Protein [Mass/Vol] 7.2 g/dL 6.4-8.2 [facility] Work Phone: Sodium [Moles/Vol] 133 mmol/L 136-145 [facility] Work Phone: WBC (Bld) [#/Vol] 6.8 10*3/uL 4.4-11.0 [facility] Work Phone: Blood erythrocytes count (nu mber/volume)on 05-27-2022 RBC (Bld) [#/Vol] 3.64 10*6/uL 4.2-5.4 [facility] Work Phone: Blood hemoglobin measurement (mass/volume)on 05-27-2022 Hemoglobin (Bld) [Mass/Vol] 11.6 g/dL 12.0-15.0 [facility] Work Phone: Blood lymphocytes/100 leukoc yteson 05-27-2022 Lymphocytes/100 WBC (Bld) 21.1 % 19-41 [facility] Work Phone: Blood monocytes/100 leukocyt eson 05-27-2022 Monocytes/100 WBC (Bld) 12.0 % 0-10 [facility] Work Phone: Blood platelet mean volumeon 05-27-2022 Platelet mean volume (Bld) [Entitic vol] 10.2 fL 6.2-12.0 [facility] Work Phone: Determination of erythrocyte mean corpuscular volume (MCV)on 05-27-2022 MCV (RBC) [Entitic vol] 103.8 fL 81-99 [facility] Work Phone: [phone] Hematocrit Auto (Bld) [Volum e fraction]on 05-27-2022 Hematocrit (Bld) [Volume fraction] 37.8 % 37-47 [facility] Work Phone: [phone] Laboratory - Chemistry and C hemistry - challengeon 05-27-2022 ALP [Catalytic activity/Vol] 91 U/L 45-117 [facility] Work Phone: [phone] ALT [Catalytic activity/Vol] 17 U/L 13-56 [facility] Work Phone: [phone] CO2 [Moles/Vol] 28.0 mmol/L 21.0-32.0 [facility] Work Phone: [phone] Globulin (S) [Mass/Vol] 3.6 g/dL 2.2-4.2 [facility] Work Phone: [phone] Urea nitrogen/Creatinine [Mass ratio] 18.3 mg/mg 10-20 [facility] Work Phone: [phone] Laboratory - Hematology and Cell countson 05-27-2022 Erythrocyte distribution width (RBC) [Entitic vol] 51.5 fL 35.1-43.9 [facility] Work Phone: [phone] Erythrocyte distribution width (RBC) [Ratio] 13.4 % 11.6-14.6 [facility] Work Phone: [phone] Immature granulocytes/100 WBC (Bld) 0.300 % 0.0-0.9 [facility] Work Phone: [phone] Comment on above: IG% - Immature Granu locytes (promyelocytes, myelocytes and metamyelocytes) > 1% indicates that a LEFT SHIFT is Present. MCH (RBC) [Entitic mass] 31.9 pg 27.0-32.0 [facility] Work Phone: [phone] Nucleated RBC/100 WBC (Bld) [Ratio] 0 % 0-5 [facility] Work Phone: [phone] MCHC Auto (RBC) [Mass/Vol]on 05-27-2022 MCHC (RBC) [Mass/Vol] 30.7 g/dL 32-36 [facility] Work Phone: No Panel Informationon 05-27 Estimated GFR (MDRD) Amer 92 mL/min >60 [facility] Work Phone: Comment on above: GFR Calc Estimated GFR (MDRD) Non-Af Amer 76 mL/min >60 [facility] Work Phone: Comment on above: Non- GFR Calc Platelets bldon 05-27-2022 Platelets (Bld) [#/Vol] 255 10*3/uL 150-450 [facility] Work Phone: Serum or plasma albumin rhonda urement (mass/volume)on 05-27-2022 Albumin [Mass/Vol] 3.6 g/dL 3.2-5.0 [facility] Work Phone: Serum or plasma albumin/glob ulin mass ratioon 05-27-2022 Albumin/Globulin [Mass ratio] 1.0 {ratio} 0.9-2.4 [facility] Work Phone: Serum or plasma calcium rhonda urement (mass/volume)on 05-27-2022 Calcium [Mass/Vol] 9.7 mg/dL 8.5-10.1 [facility] Work Phone: Serum or plasma creatinine m easurement (mass/volume)on 05-27-2022 Creatinine [Mass/Vol] 0.76 mg/dL 0.55-1.02 [facility] Work Phone: Comment on above: The validity of the calculated GFR & GFRAA in patients over 70 years has not been determined. Clinical correlation is essential. Serum or plasma urea nitroge n measurement (mass/volume)on 05-27-2022 Urea nitrogen [Mass/Vol] 14 mg/dL 7-18 [facility] Work Phone: Thin prep Papanicolaou smear with manual screeningon 05-27-2022 Thin prep Papanicolaou smear with manual screening 14 U/L 15-37 [facility] Work Phone: Thin prep Papanicolaou smear with manual screening 4 5-15 [facility] Work Phone: Absolute lymphocyte counton 02-23-2022 Lymphocytes Auto (Unsp spec) [#/Vol] 1.94 10*3/uL 0.83-4.51 [facility] Work Phone: Basophil percentageon 2021 Basophils/100 WBC (Bld) 0.6 % 0-1 [facility] Work Phone: Bilirubin [Mass/Vol] 0.40 mg/dL 0.20-1.00 [facility] Work Phone: Comment on above: For patients on eltr ombopag therapy, use of Dimension [place] TBIL is not recommended. Chloride [Moles/Vol] 101 mmol/L 98-107 [facility] Work Phone: Eosinophils/100 WBC (Bld) 2.2 % 0-5 [facility] Work Phone: Glucose [Mass/Vol] 86 mg/dL 74-106 [facility] Work Phone: Neutrophils (Bld) [#/Vol] 3.7 10*3/uL 2.0-7.7 [facility] Work Phone: Neutrophils/100 WBC (Bld) 57.0 % 47-70 [facility] Work Phone: Potassium [Moles/Vol] 4.4 mmol/L 3.5-5.1 [facility] Work Phone: Protein [Mass/Vol] 7.5 g/dL 6.4-8.2 [facility] Work Phone: Sodium [Moles/Vol] 135 mmol/L 136-145 [facility] Work Phone: WBC (Bld) [#/Vol] 6.5 10*3/uL 4.4-11.0 [facility] Work Phone: Blood erythrocytes count (nu mber/volume)on 02-23-2022 RBC (Bld) [#/Vol] 3.86 10*6/uL 4.2-5.4 [facility] Work Phone: [phone] Blood hemoglobin measurement (mass/volume)on 02-23-2022 Hemoglobin (Bld) [Mass/Vol] 11.8 g/dL 12.0-15.0 [facility] Work Phone: [phone] Blood lymphocytes/100 leukoc yteson 02-23-2022 Lymphocytes/100 WBC (Bld) 29.8 % 19-41 [facility] Work Phone: [phone] Blood monocytes/100 leukocyt eson 02-23-2022 Monocytes/100 WBC (Bld) 10.1 % 0-10 [facility] Work Phone: [phone] Blood platelet mean volumeon 02-23-2022 Platelet mean volume (Bld) [Entitic vol] 9.9 fL 6.2-12.0 [facility] Work Phone: [phone] Determination of erythrocyte mean corpuscular volume (MCV)on 02-23-2022 MCV (RBC) [Entitic vol] 97.4 fL 81-99 [facility] Work Phone: [phone] Hematocrit Auto (Bld) [Volum e fraction]on 02-23-2022 Hematocrit (Bld) [Volume fraction] 37.6 % 37-47 [facility] Work Phone: [phone] Laboratory - Chemistry and C hemistry - challengeon 02-23-2022 ALP [Catalytic activity/Vol] 76 U/L 45-117 [facility] Work Phone: [phone] ALT [Catalytic activity/Vol] 20 U/L 13-56 [facility] Work Phone: [phone] CO2 [Moles/Vol] 30.0 mmol/L 21.0-32.0 [facility] Work Phone: [phone] Globulin (S) [Mass/Vol] 3.8 g/dL 2.2-4.2 [facility] Work Phone: [phone] Urea nitrogen/Creatinine [Mass ratio] 28.4 mg/mg 10-20 [facility] Work Phone: [phone] Laboratory - Hematology and Cell countson 02-23-2022 Erythrocyte distribution width (RBC) [Entitic vol] 54.6 fL 35.1-43.9 [facility] Work Phone: [phone] Erythrocyte distribution width (RBC) [Ratio] 15.3 % 11.6-14.6 [facility] Work Phone: [phone] Immature granulocytes/100 WBC (Bld) 0.300 % 0.0-0.9 [facility] Work Phone: [phone] Comment on above: IG% - Immature Granu locytes (promyelocytes, myelocytes and metamyelocytes) > 1% indicates that a LEFT SHIFT is Present. MCH (RBC) [Entitic mass] 30.6 pg 27.0-32.0 [facility] Work Phone: [phone] Nucleated RBC/100 WBC (Bld) [Ratio] 0 % 0-5 [facility] Work Phone: [phone] MCHC Auto (RBC) [Mass/Vol]on 02-23-2022 MCHC (RBC) [Mass/Vol] 31.4 g/dL 32-36 [facility] Work Phone: [phone] No Panel Informationon 02-23 Estimated GFR (MDRD) Amer 91 mL/min >60 [facility] Work Phone: [phone] Comment on above: GFR Calc Estimated GFR (MDRD) Non-Af Amer 75 mL/min >60 [facility] Work Phone: [phone] Comment on above: Non- GFR Calc Platelets bldon 02-23-2022 Platelets (Bld) [#/Vol] 260 10*3/uL 150-450 [facility] Work Phone: [phone] Serum or plasma albumin rhonda urement (mass/volume)on 02-23-2022 Albumin [Mass/Vol] 3.7 g/dL 3.2-5.0 [facility] Work Phone: [phone] Serum or plasma albumin/glob ulin mass ratioon 02-23-2022 Albumin/Globulin [Mass ratio] 1.0 {ratio} 0.9-2.4 [facility] Work Phone: Serum or plasma calcium rhonda urement (mass/volume)on 02-23-2022 Calcium [Mass/Vol] 9.5 mg/dL 8.5-10.1 [facility] Work Phone: Serum or plasma creatinine m easurement (mass/volume)on 02-23-2022 Creatinine [Mass/Vol] 0.78 mg/dL 0.55-1.02 [facility] Work Phone: Comment on above: The validity of the calculated GFR & GFRAA in patients over 70 years has not been determined. Clinical correlation is essential. Serum or plasma urea nitroge n measurement (mass/volume)on 02-23-2022 Urea nitrogen [Mass/Vol] 22 mg/dL 7-18 [facility] Work Phone: Thin prep Papanicolaou smear with manual screeningon 02-23-2022 Thin prep Papanicolaou smear with manual screening 14 U/L 15-37 [facility] Work Phone: Thin prep Papanicolaou smear with manual screening 4 5-15 [facility] Work Phone: Vital Signs Date Time Vital Sign Value Performing Clinician Faci lity 04-17-2025 13:55-0400 Body temperature 97.8 [degF] Dr. Fitz Walters MD Work Phone: [facility] 04-17-2025 13:55-0400 Body weight 64.[address] Fizt Walters MD Work Phone: [facility] 04-17-2025 13:55-0400 Diastolic blood pressure 70 mm[Hg] Dr. Fitz Walters MD Work Phone: [facility] 04-17-2025 13:55-0400 Heart rate 80 /min Dr. Fitz Walters MD Work Phone: [facility] 04-17-2025 13:55-0400 Respiratory rate 17 /min Dr. Fitz Walters MD Work Phone: [facility] 04-17-2025 13:55-0400 SaO2% (BldA) [Mass fraction] 96 % Dr. Fitz Walters MD Work Phone: [facility] 04-17-2025 13:55-0400 Systolic blood pressure 122 mm[Hg] Dr. Fitz Walters MD Work Phone: [facility] 11-27-2024 13:35-0500 Body height 156.8 cm Sandra Corin CRIMINOLOGY TEACHER.BOBBIN SORTER Work Phone: [facility] 11-27-2024 13:35-0500 Body mass index (BMI) [Ratio] 26.79 kg/m2 Sandra Corin CRIMINOLOGY TEACHER.BOBBIN SORTER Work Phone: [facility] 11-27-2024 13:35-0500 Body weight 65.9 kg Sandra Corin CRIMINOLOGY TEACHER.BOBBIN SORTER Work Phone: [facility] 11-27-2024 13:35-0500 Diastolic blood pressure 62 mm[Hg] Sandra Corin CRIMINOLOGY TEACHER.BOBBIN SORTER Work Phone: [facility] 11-27-2024 13:35-0500 Heart rate 72 /min Sandra Corin CRIMINOLOGY TEACHER.BOBBIN SORTER Work Phone: [facility] 11-27-2024 13:35-0500 SaO2% (BldA) [Mass fraction] 98 % Sandra Corin CRIMINOLOGY TEACHER.BOBBIN SORTER Work Phone: [facility] 11-27-2024 13:35-0500 Systolic blood pressure 110 mm[Hg] Sandra Corin CRIMINOLOGY TEACHER.BOBBIN SORTER Work Phone: [facility] 05-25-2024 14:42-0400 Body mass index (BMI) [Ratio] 27.07 kg/m2 Fitz Walters MD Work Phone: [facility] 05-25-2024 14:42-0400 Body temperature 97.39 [degF] Fitz Walters MD Work Phone: [facility] 05-25-2024 14:42-0400 Body weight 67.13 kg Fitz Walters MD Work Phone: [facility] 05-25-2024 14:42-0400 Diastolic blood pressure 76 mm[Hg] Fitz Walters MD Work Phone: [facility] 05-25-2024 14:42-0400 Heart rate 72 /min Fitz Walters MD Work Phone: [facility] 05-25-2024 14:42-0400 Respiratory rate 20 /min Fitz Walters MD Work Phone: [facility] [facility]24 14:42-0400 Systolic blood pressure 126 mm[Hg] Fitz Walters MD Work Phone: [facility] 06-08-2023 13:43-0400 Body height 162.[address] Fitz Walters Work Phone: [facility] 06-08-2023 13:43-0400 Body mass index (BMI) [Ratio] 25.4 kg/m2 Dr. Fitz Walters Work Phone: 9(615)226-384782 [place] [address] 06-08-2023 13:43-0400 Body temperature 97.9 [degF] Dr. Fitz Walters Work Phone: 8(822)497-299782 [place] [address] 06-08-2023 13:43-0400 Body weight 67.[address] Fitz Walters Work Phone: [facility] 06-08-2023 13:43-0400 Diastolic blood pressure 78 mm[Hg] Dr. Fitz Walters Work Phone: [facility] 06-08-2023 13:43-0400 Heart rate 68 /min Dr. Fitz Walters Work Phone: [facility] 06-08-2023 13:43-0400 Respiratory rate 16 /min Dr. Fitz Walters Work Phone: [facility] 06-08-2023 13:43-0400 SaO2% (BldA) [Mass fraction] 99 % Dr. Fitz Walters Work Phone: [facility] 06-08-2023 13:43-0400 Systolic blood pressure 112 mm[Hg] Dr. Fitz Walters Work Phone: [facility] 05-17-2023 14:44-0400 Body weight 66.22 kg Fitz Walters MD Work Phone: [facility] 05-17-2023 14:44-0400 Diastolic blood pressure 68 mm[Hg] Fitz Walters MD Work Phone: [facility] 05-17-2023 14:44-0400 Heart rate 64 /min Fitz Walters MD Work Phone: [facility] 05-17-2023 14:44-0400 Respiratory rate 18 /min Fitz Walters MD Work Phone: [facility] 05-17-2023 14:44-0400 Systolic blood pressure 126 mm[Hg] Fitz Walters MD Work Phone: [facility] 03-08-2023 13:13-0400 Body height 162.[address] Fitz Walters Work Phone: [facility] 03-08-2023 13:13-0400 Body mass index (BMI) [Ratio] 24.9 kg/m2 Dr. Fitz Walters Work Phone: [facility] 03-08-2023 13:13-0400 Body temperature 98 [degF] Dr. Fitz Walters Work Phone: 9(780)190-284682 [place] [address] 03-08-2023 13:13-0400 Body weight 65.[address] Fitz Walters Work Phone: [facility] 03-08-2023 13:13-0400 Diastolic blood pressure 70 mm[Hg] Dr. Fitz Walters Work Phone: 0(523)452-882282 [place] [address] 03-08-2023 13:13-0400 Heart rate 61 /min Dr. Fitz Walters Work Phone: 8(618)897-845482 [place] [address] 03-08-2023 13:13-0400 Respiratory rate 17 /min Dr. Fitz Walters Work Phone: 3(345)449-908482 [place] [address] 03-08-2023 13:13-0400 SaO2% (BldA) [Mass fraction] 99 % Dr. Fitz Walters Work Phone: 0(964)294-104182 [place] [address] 03-08-2023 13:13-0400 Systolic blood pressure 128 mm[Hg] Dr. Fitz Walters Work Phone: 0(422)034-176358 [place] [address] 02-16-2023 15:18-0400 Body mass index (BMI) [Ratio] 24.5 kg/m2 Dr. Fitz Walters Work Phone: 7(754)075-323658 [place] [address] 02-16-2023 15:18-0400 Body temperature 98.2 [degF] Dr. Fitz Walters Work Phone: 7(494)950-158358 [place] [address] 02-16-2023 15:18-0400 Body weight 64.[address] Fitz Walters Work Phone: 0(660)111-048558 [place] [address] 02-16-2023 15:18-0400 Diastolic blood pressure 81 mm[Hg] Dr. Fitz Walters Work Phone: 8(612)439-813958 [place] [address] 02-16-2023 15:18-0400 Heart rate 67 /min Dr. Fitz Walters Work Phone: 8(509)828-821382 [place] [address] 02-16-2023 15:18-0400 Respiratory rate 20 /min Dr. Fitz Walters Work Phone: 9(341)604-055958 [place] [address] 02-16-2023 15:18-0400 SaO2% (BldA) [Mass fraction] 94 % Dr. Fitz Walters Work Phone: 1(859)021-627682 [place] [address] 02-16-2023 15:18-0400 Systolic blood pressure 129 mm[Hg] Dr. Fitz Walters Work Phone: 4(272)250-974758 [place] [address] 02-10-2023 11:54-0400 Body temperature 98.01 [degF] Milagros Annawan CRIMINOLOGY TEACHER.BOBBIN SORTER Work Phone: [facility] 02-10-2023 11:54-0400 Body weight 64.14 kg Milagros Annawan CRIMINOLOGY TEACHER.BOBBIN SORTER Work Phone: [facility] 02-10-2023 11:54-0400 Diastolic blood pressure 64 mm[Hg] Milagros Annawan CRIMINOLOGY TEACHER.BOBBIN SORTER Work Phone: [facility] 02-10-2023 11:54-0400 Heart rate 65 /min Milagros Annawan CRIMINOLOGY TEACHER.BOBBIN SORTER Work Phone: [facility] 02-10-2023 11:54-0400 Respiratory rate 18 /min Milagros Annawan CRIMINOLOGY TEACHER.BOBBIN SORTER Work Phone: [facility] 02-10-2023 11:54-0400 SaO2% (BldA) [Mass fraction] 96 % Milagros Annawan CRIMINOLOGY TEACHER.BOBBIN SORTER Work Phone: [facility] 02-10-2023 11:54-0400 Systolic blood pressure 128 mm[Hg] Milagros Avila CRIMINOLOGY TEACHER.BOBBIN SORTER Work Phone: [facility] 02-02-2023 15:18-0400 Body height 162.[address] Fitz Walters Work Phone: [facility] 02-02-2023 15:18-0400 Body mass index (BMI) [Ratio] 24.7 kg/m2 Dr. Fitz Walters Work Phone: [facility] 02-02-2023 15:18-0400 Body temperature 98 [degF] Dr. Fitz Walters Work Phone: [facility] 02-02-2023 15:18-0400 Body weight 65.[address] Fitz Walters Work Phone: [facility] 02-02-2023 15:18-0400 Diastolic blood pressure 80 mm[Hg] Dr. Fitz Walters Work Phone: [facility] 02-02-2023 15:18-0400 Heart rate 75 /min Dr. Fitz Walters Work Phone: [facility] 02-02-2023 15:18-0400 Respiratory rate 16 /min Dr. Fitz Walters Work Phone: [facility] 02-02-2023 15:18-0400 SaO2% (BldA) [Mass fraction] 98 % Dr. Fitz Walters Work Phone: [facility] 02-02-2023 15:18-0400 Systolic blood pressure 124 mm[Hg] Dr. Fitz Walters Work Phone: [facility] 11-10-2022 13:12-0500 Body height 159.4 cm Sandra Older CRIMINOLOGY TEACHER.BOBBIN SORTER Work Phone: [facility] 11-10-2022 13:12-0500 Body weight 64.41 kg Sandra Older CRIMINOLOGY TEACHER.BOBBIN SORTER Work Phone: [facility] 11-10-2022 13:12-0500 Diastolic blood pressure 79 mm[Hg] Sandra Older CRIMINOLOGY TEACHER.BOBBIN SORTER Work Phone: [facility] 11-10-2022 13:12-0500 Heart rate 81 /min Sandra Older CRIMINOLOGY TEACHER.BOBBIN SORTER Work Phone: [facility] 11-10-2022 13:12-0500 Respiratory rate 18 /min Sandra Older CRIMINOLOGY TEACHER.BOBBIN SORTER Work Phone: [facility] 11-10-2022 13:12-0500 Systolic blood pressure 123 mm[Hg] Sandra Older CRIMINOLOGY TEACHER.BOBBIN SORTER Work Phone: [facility] 07-09-2022 14:02-0400 Body temperature 96.8 [degF] Fitz Walters MD Work Phone: [facility] 07-09-2022 14:02-0400 Body weight 63.96 kg Fitz Walters MD Work Phone: [facility] 07-09-2022 14:02-0400 Diastolic blood pressure 73 mm[Hg] Fitz Walters MD Work Phone: [facility] 07-09-2022 14:02-0400 Heart rate 68 /min Fitz Walters MD Work Phone: [facility] 07-09-2022 14:02-0400 Respiratory rate 20 /min Fitz Walters MD Work Phone: [facility] 07-09-2022 14:02-0400 Systolic blood pressure 118 mm[Hg] Fitz Walters MD Work Phone: [facility] 06-01-2022 11:28-0400 Body height 162.[address] Fitz Walters Work Phone: [facility] Work Phone: 06-01-2022 11:28-0400 Diastolic blood pressure 81 mm[Hg] Dr. Fitz Walters Work Phone: [facility] Work Phone: 06-01-2022 11:28-0400 Respiratory rate 16 /min Dr. Fitz Walters Work Phone: [facility] Work Phone: 06-01-2022 11:28-0400 Systolic blood pressure 130 mm[Hg] Dr. Fitz Walters Work Phone: [facility] Work Phone: 06-01-2022 10:07-0400 Body mass index (BMI) [Ratio] 24.7 kg/m2 Dr. Fitz Walters Work Phone: [facility] Work Phone: 06-01-2022 10:07-0400 Body temperature 98.2 [degF] Dr. Fitz Walters Work Phone: [facility] Work Phone: 06-01-2022 10:07-0400 Body weight 65.[address] Fitz Walters Work Phone: [facility] Work Phone: 06-01-2022 10:07-0400 Heart rate 64 /min Dr. Fitz Walters Work Phone: [facility] Work Phone: 06-01-2022 10:07-0400 SaO2% (BldA) [Mass fraction] 97 % Dr. Fitz Walters Work Phone: [facility] Work Phone: 05-07-2022 13:41-0400 Body temperature 96.91 [degF] Fitz Walters MD Work Phone: [facility] 05-07-2022 13:41-0400 Body weight 65.32 kg Fitz Walters MD Work Phone: [facility] 05-07-2022 13:41-0400 Diastolic blood pressure 58 mm[Hg] Fitz Walters MD Work Phone: [facility] 05-07-2022 13:41-0400 Heart rate 68 /min Fitz Walters MD Work Phone: [facility] 05-07-2022 13:41-0400 Respiratory rate 12 /min Fitz Walters MD Work Phone: [facility] 05-07-2022 13:41-0400 Systolic blood pressure 110 mm[Hg] Fitz Walters MD Work Phone: [facility] Encounters Encounter Date Encounter Type Care Provider Facility Start: 04-17-2025 End: 04-17-[address] Chong Cantu MD -[facility] Work Phone: Start: 04-17-2025 End: 04-17-[address] Fitz Walters MD Work Phone: [facility] Work Phone: Start: 04-17-2025 End: 04-17-2025 ambulatory Fitz Walters Facility:[facility] Start: 04-02-2025 End: 04-02-2025 Refill Sandra Sigala APRN.BOBBIN SORTER Work Phone: [facility] Comment on above: Refill Request Start: 02-05-2025 End: 02-05-2025 Refill Fitz Walters MD Work Phone: [facility] Comment on above: Refill Request Start: 01-19-2025 End: 01-19-[address] Fitz Walters MD Work Phone: [facility] Work Phone: Start: 01-19-2025 End: 01-19-[address] Laurence Hinds MD -[facility] [place] Work Phone: Start: 01-19-2025 End: 01-19-2025 ambulatory Laurence Hinds Facility:[facility] Start: 12-01-2024 End: 12-01-2024 ambulatory FITZ WALTERS Facility:[facility] Start: 12-01-2024 End: 12-01-2024 Patient encounter procedure Angelina Godwin Work Phone: Podiatry Comment on above: Onychomycosis (Prima ry Dx); Pain in toe of right foot; Pain in toe of left foot; Type 2 diabetes, controlled, with peripheral neuropathy (HCC); Callus of foot Start: 11-27-2024 End: 11-27-2024 ambulatory FITZ WALTERS Facility:[facility] Start: 11-27-2024 End: 11-27-2024 Patient encounter procedure Sandra Sigala APRN.BOBBIN SORTER Work Phone: [facility] Comment on above: Medicare annual well ness visit, subsequent (Primary Dx); Type 2 diabetes, controlled, with peripheral neuropathy (HCC); Essential hypertension; Hyperlipidemia, unspecified hyperlipidemia type; Encounter for immunization Start: 11-22-2024 End: 11-22-2024 ambulatory FITZ WALTERS Facility:[facility] Start: 10-17-2024 End: 10-17-[address] Laurence Hinds MD -[facility], [place] Work Phone: Start: 10-17-2024 End: 10-17-2024 [facility] Start: 08-02-2024 End: 08-02-2024 ambulatory [facility] Facility:[facility] Start: 05-25-2024 End: 05-25-2024 ambulatory FITZ WALTERS Facility:[facility] Start: 05-25-2024 End: 05-25-2024 Office outpatient visit 15 minutes Fitz Walters MD Work Phone: [facility] Comment on above: Type 2 diabetes, con trolled, with peripheral neuropathy (HCC) (Primary Dx); Essential hypertension; Hyperlipidemia, unspecified hyperlipidemia type; 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) Start: 05-05-2024 End: 05-05-2024 ambulatory [facility] Facility:[facility] Start: 04-17-2024 Refill Fitz ham MD Work Phone: [facility] Comment on above: Refill Request Start: 02-24-2024 Refill Fitz ham MD Work Phone: [facility] Comment on above: Refill Request Start: 02-18-2024 Refill Fitz ham MD Work Phone: [facility] Comment on above: Refill Request Start: 01-20-2024 End: 01-20-2024 ambulatory [facility] Work Phone: Start: 01-20-2024 End: 01-20-[address] [facility] [place] Work Phone: Start: 01-13-2024 End: 01-13-2024 ambulatory FITZ WALTERS Facility:[facility] Start: 01-13-2024 End: 01-13-2024 Patient encounter procedure Angelina Godwin Work Phone: Podiatry Comment on above: Onychomycosis (Prima ry Dx); Pain in toe of right foot; Pain in toe of left foot; Type 2 diabetes, controlled, with peripheral neuropathy (HCC); Callus of foot Start: 01-03-2024 ambulatory Fitz ham MD Work Phone: [facility] Comment on above: Epistaxis Start: 10-14-2023 End: 10-14-2023 Patient encounter procedure [facility] Work Phone: Start: 09-17-2023 End: 09-17-2023 Patient encounter procedure Angelina Godwin Work Phone: Podiatry Comment on above: Onychomycosis (Prima ry Dx); Pain in toe of right foot; Pain in toe of left foot; Type 2 diabetes, controlled, with peripheral neuropathy (HCC) Start: 07-16-2023 End: 07-16-[address] Fitz Walters Work Phone: [facility] Work Phone: Start: 07-16-2023 End: 07-16-[address] Fitz Walters Work Phone: [facility] Work Phone: Start: 06-08-2023 End: 06-08-[address] Fitz Walters Work Phone: [facility] Work Phone: Start: 06-08-2023 End: 06-08-[address] Fitz Walters Work Phone: [facility] Work Phone: Start: 06-08-2023 End: 06-08-[address] Fitz Walters Work Phone: [facility] Work Phone: Start: 05-24-2023 Telephone encounter Fitz stephens MD Work Phone: [facility] Comment on above: Results Start: 05-17-2023 End: 05-17-2023 Patient encounter procedure Fitz Walters MD Work Phone: [facility] Comment on above: Type 2 diabetes, con trolled, with peripheral neuropathy (HCC) (Primary Dx); Essential hypertension; Dysuria; Generalized osteoarthrosis Start: 05-05-2023 Telephone encounter Fitz stephens MD Work Phone: [facility] Comment on above: Orders Start: 04-14-2023 Refill Fitz ham MD Work Phone: [facility] Comment on above: Refill Request Start: 03-15-2023 End: 03-15-[address] Fitz Walters Work Phone: [facility] Work Phone: Start: 03-15-2023 End: 03-15-[address] Fitz Walters Work Phone: [facility] Start: 03-08-2023 End: 03-08-[address] Fitz Walters Work Phone: [facility] Start: 02-16-2023 End: 02-16-[address] Fitz Walters Work Phone: [facility] Start: 02-12-2023 Telephone encounter Lisa Jackson APRN.BOBBIN SORTER Work Phone: [facility] Comment on above: Results Start: 02-10-2023 End: 02-10-2023 Patient encounter procedure Milagros Gramajo APRN.BOBBIN SORTER Work Phone: [facility] Comment on above: Urinary frequency (P rimary Dx); Acute cystitis with hematuria Start: 02-09-2023 Telephone encounter Fitz stephens MD Work Phone: [facility] Comment on above: Patient Update Start: 02-03-2023 Refill Fitz ham MD Work Phone: [facility] Comment on above: Refill Request Start: 02-02-2023 End: 02-02-[address] Fitz Walters Work Phone: [facility] Work Phone: Start: 02-02-2023 End: 02-02-[address] Fitz Walters Work Phone: [facility] Start: 02-02-2023 End: 02-02-[address] Fitz Walters Work Phone: [facility] Start: 12-24-2022 End: 12-24-2022 ambulatory [facility] Work Phone: Start: 12-24-2022 End: 12-24-2022 Patient encounter procedure [facility] Start: 11-10-2022 End: 11-10-2022 Patient encounter procedure Sandra Older CRIMINOLOGY TEACHER.BOBBIN SORTER Work Phone: [facility] Comment on above: Medicare annual well ness visit, subsequent (Primary Dx); Encounter for immunization Start: 09-17-2022 Telephone encounter Fitz stephens MD Work Phone: [facility] Comment on above: [facility] requesting records Start: 09-14-2022 Telephone encounter Sandra Older CRIMINOLOGY TEACHER.BOBBIN SORTER Work Phone: [facility] Comment on above: Results Start: 08-28-2022 Telephone encounter Sandra Older CRIMINOLOGY TEACHER.BOBBIN SORTER Work Phone: [facility] Comment on above: Results Start: 08-25-2022 Telephone encounter Fitz stephens MD Work Phone: [facility] Comment on above: Results Start: 08-24-2022 End: 08-24-[address] Fitz Walters Work Phone: [facility] Work Phone: Start: 08-24-2022 End: 08-24-[address] Fitz Walters Work Phone: [facility] Start: 08-10-2022 Orders Only Angelina del angel [...] Fitz stephens MD Work Phone: [facility] Comment on above: urine culture result s Start: 07-09-2022 End: 07-09-2022 Patient encounter procedure Fitz Walters MD Work Phone: [facility] Comment on above: Urge incontinence of urine (Primary Dx); Nocturia; Medication side effects; Dysuria; Need for COVID-19 vaccine Start: 07-08-2022 ambulatory Fitz ham MD Work Phone: [facility] Comment on above: Medication Problem Start: 06-12-2022 End: 06-12-[address] Fitz Walters Work Phone: [facility] Start: 06-05-2022 Telephone encounter Fitz stephens MD Work Phone: [facility] Comment on above: Insurance Authorizat ion Start: 06-03-2022 Refill Fitz ham MD Work Phone: [facility] Comment on above: Refill Request Start: 06-01-2022 Telephone encounter Fitz stephens MD Work Phone: [facility] Comment on above: patient information Start: 06-01-2022 End: 06-01-[address] Fitz Walters Work Phone: [facility] Start: 06-01-2022 End: 06-01-[address] Fitz Walters Work Phone: [facility] Start: 05-27-2022 End: 05-27-2022 Patient encounter procedure [facility] Start: 05-07-2022 End: 05-07-2022 Patient encounter procedure Fitz Walters MD Work Phone: [facility] Comment on above: Type 2 diabetes, con trolled, with peripheral neuropathy (HCC) (Primary Dx); Unsteady gait; Urge incontinence of urine; Nocturia; Hyperkalemia Start: 04-15-2022 Refill Fitz ham MD Work Phone: [facility] Comment on above: Prescription Refills Start: 03-17-2022 Telephone encounter Fitz stephens MD Work Phone: [facility] Comment on above: Opened In Error Start: 03-11-2022 Telephone encounter Sandra Mhaoney APRN.BOBBIN SORTER Work Phone: [facility] Comment on above: Patient Question Start: 02-23-2022 End: 02-23-2022 Patient encounter procedure [facility] Procedures Date Procedure Procedure Detail Performing Clinician Start: 11-27-2024 [email or web address] COVI D-19 VACCINE AGE 12+ YR (COMIRNATY) Sandra Sigala APRN.CNP Work Phone: Start: 05-25-2024 Hemoglobin A1c/Hemoglobin.total in Blood Fitz Walters MD Work Phone: Start: 05-25-2024 Adult depression scr eening assessment Sandra Sigala CRIMINOLOGY TEACHER.BOBBIN SORTER Work Phone: Start: 05-17-2023 Urnls dip stick/tabl et rgnt auto w/o microscopy Fitz Walters MD Work Phone: Start: 02-10-2023 Urnls dip stick/tabl et rgnt auto w/o microscopy Ashley Dawkins CRIMINOLOGY TEACHER.BOBBIN SORTER Work Phone: Start: 11-10-2022 INFLUENZA SEASONAL QUADRIVALENT HIGH DOSE AGE 65+ Sandra Older CRIMINOLOGY TEACHER.BOBBIN SORTER Work Phone: Start: 11-10-2022 [employer] COVI D-19 BIVALENT BOOSTER VACCINE, AGE 12+ YR Sandra Older CRIMINOLOGY TEACHER.BOBBIN SORTER Work Phone: Start: 07-09-2022 [employer] COVI D-19 VACCINE, AGE 12+ YR (REYES TOP) Fitz Walters MD Work Phone: Start: 07-09-2022 Urnls dip stick/tabl et rgnt auto w/o microscopy iFtz Walters MD Work Phone: Start: 06-12-2022 MRI of brain with contrast Dr. Fitz Walters Work Phone: Plan of Treatment Date Care Activity Detail Author Start: 02-06-2026 Glaucoma screening Dilated Retinal E xam [facility] Start: 11-28-2025 End: 11-28-2025 Patient encounter procedure 11/28/2025 1:00 PM EST Office Visit [facility] [address] [place], [place] [id number] Sandra Sigala M, CRIMINOLOGY TEACHER.BOBBIN SORTER [address] [facility] [place] [id number] Medicare Wellness Exam [facility] Comment on above: Medicare Wellness Ex am Start: 11-27-2025 RSV Vaccine (1 - 1-d ose 75+ series) RSV Vaccine (1 - 1-dose 75+ series) [facility] Comment on above: Postponed from 11/19 (Declined at this time) Start: 11-22-2025 Hepatitis B surface antibody level LDL Cholesterol [facility] Start: 09-12-[address] [facility] Comment on above: Postponed from 09/12 (Postponed To Appropriate Date) Start: 05-27-2025 Covid-19 Vaccine (7 - Pfizer risk ) Covid-19 Vaccine (7 - Pfizer risk ) [facility] Start: 05-27-2025 End: 08-26-2025 Hemoglobin A1c in Blood HEMOGLOBIN A1C Lab Routine Type 2 diabetes, controlled, with peripheral neuropathy (HCC) Expected: 05/27/2025 (Approximate), Expires: 08/26/2025 [facility] Comment on above: Expected: 05/27/2025 (Approximate), Expires: 08/26/2025 Start: 05-27-2025 End: 08-26-2025 Microalbumin/Creatinine [Mass Ratio] in Urine ALBUMIN/CREATININE RATIO, URINE Lab Routine Type 2 diabetes, controlled, with peripheral neuropathy (HCC) Expected: 05/27/2025 (Approximate), Expires: 08/26/[address] [facility] Work Phone: Comment on above: Expected: 05/27/2025 (Approximate), Expires: 08/26/2025 Start: 05-25-2025 Anxiety Screening Anxiety Screening [facility] Start: 05-25-2025 Depression Screening Depression Scre [facility] Start: 05-24-2025 End: 05-24-2025 Patient encounter procedure 05/24/2025 3:20 PM EDT Office Visit [facility] [address] [place], [place] [id number] Fitz Walters MD [address] [place], [place] [id number] 6 month follow-up [facility] Comment on above: 6 month follow-up Start: 05-22-2025 Hemoglobin A1c measurement HbA1C [facility] Start: 03-02-2025 End: 03-02-2025 Patient encounter procedure Podiatry Comment on above: 3 month follow up [facility] Start: 02-14-2025 Glaucoma screening Dilated Retinal E xam [facility] Start: 01-22-2025 Covid-19 Vaccine ( season) Covid-19 Vaccine () [facility] [facility] Start: 01-12-2025 Diabetic foot examination Diabetic F oot Exam [facility] Start: 12-01-2024 End: 12-01-2024 Patient encounter procedure 12/01/2024 1:40 PM EST Office Visit Podiatry [address] [place] [address] Angelina Godwin [address] [address] [facility] Podiat[facility] Comment on above: [facility] F/U Start: 11-27-2024 End: 11-27-2024 Patient encounter procedure 11/27/2024 2:00 PM EST Office Visit Internal Medicine [facility] [address] [place], [place] [id number] Sandra Sigala, CRIMINOLOGY TEACHER.BOBBIN SORTER [address] [place] [address] Annual Medicare Wellness/6 month follow-up Internal Medicine [facility] Comment on above: Annual Medicare Well ness/6 month follow-up Start: 11-25-2024 End: 02-24-2025 Basic metabolic 2000 panel - Serum or Plasma BASIC METABOLIC PANEL Lab Routine Type 2 diabetes, controlled, with peripheral neuropathy (HCC) Expected: 11/25/2024, Expires: 02/24/2025 [facility] Comment on above: Expected: 11/25/2024 , Expires: 02/24/2025 Start: 11-25-2024 End: 02-24-2025 Hemoglobin A1c in Blood HEMOGLOBIN A1C Lab Routine Type 2 diabetes, controlled, with peripheral neuropathy (HCC) Expected: 11/25/2024, Expires: 02/24/2025 [facility] Comment on above: Expected: 11/25/2024 , Expires: 02/24/2025 Start: 11-25-2024 Hemoglobin A1c measurement HbA1C [facility] Start: 11-25-2024 End: 02-24-2025 Lipid 1996 panel - Serum or Plasma LIPID PANEL BASIC Lab Routine Hyperlipidemia, unspecified hyperlipidemia type Expected: 11/25/2024, Expires: 02/24/2025 [facility] Comment on above: Expected: 11/25/2024 , Expires: 02/24/2025 Start: 11-23-2024 Covid-19 Vaccine () Covid-19 Vaccine () [facility] Comment on above: Postponed from 11/16 (Declined at this time) Start: 11-23-2024 RSV Vaccine (1 - 1-d ose 60+ series) RSV Vaccine (1 - 1-dose 60+ series) [facility] Comment on above: Postponed from 11/19 (Declined at this time) Start: 2024 Hepatitis B surface antibody level LDL Cholesterol [facility] Start: 09-17-2024 3 comp foot exam completed Diabetic Foot Exam [facility] Start: 09-17-2024 Diabetic foot examination Diabetic F oot Exam [facility] Start: 07-16-2024 Influenza vaccination Influenza Vacc ine (#1) [facility] Start: 05-25-2024 End: 05-25-2024 Patient encounter procedure 05/25/2024 2:40 PM EDT Office Visit Internal Medicine [facility] [address] [place], [place] [id number] Fitz Walters MD [address] [place], [place] [address] 6 month follow-up [facility] Comment on above: 6 month follow-up Start: 05-25-2024 End: 08-24-2024 Microalbumin/Creatinine [Mass Ratio] in Urine ALBUMIN/CREATININE RATIO, URINE Lab Routine Type 2 diabetes, controlled, with peripheral neuropathy (HCC) Expected: 05/25/2024, Expires: 08/24/[address] [facility] Work Phone: Comment on above: Expected: 05/25/2024 , Expires: 08/24/2024 Start: 05-19-2024 Hemoglobin A1c measurement HbA1C [facility] Start: 04-28-2024 End: 04-28-2024 Patient encounter procedure 04/28/2024 1:00 PM EDT Office Visit Podiatry [address] [place] [address] Angelina Godwin [address] [place] [address] 3 MONTH FOLLOW UP [facility] Podiatry Comment on above: 3 MONTH FOLLOW UP NA [facility] Start: 01-20-2024 Glaucoma screening Dilated Retinal E xam [facility] Start: 01-20-2024 Hepatitis C antibody , confirmatory test DILATED RETINAL EXAM [facility] Start: 11-17-2023 End: 01-17-2024 ALBUMIN/CREAT RATIO RND UR ALBUMIN/CREAT RATIO RND UR Lab Routine Type 2 diabetes, controlled, with peripheral neuropathy (HCC) Expected: 11/17/2023, Expires: 01/17/[address] [facility] Work Phone: Comment on above: Expected: 11/17/2023 , Expires: 01/17/2024 Start: 11-17-2023 End: 01-17-2024 Comprehensive metabolic 2000 panel - Serum or Plasma COMP METABOLIC PANEL Lab Routine Type 2 diabetes, controlled, with peripheral neuropathy (HCC) Expected: 11/17/2023, Expires: 01/17/[address] [facility] Work Phone: Comment on above: Expected: 11/17/2023 , Expires: 01/17/2024 Start: 11-17-2023 End: 01-17-2024 Hemoglobin A1c in Blood HGB A1C Lab Routine Type 2 diabetes, controlled, with peripheral neuropathy (HCC) Expected: 11/17/2023, Expires: 01/17/[address] [facility] Work Phone: Comment on above: Expected: 11/17/2023 , Expires: 01/17/2024 Start: 11-17-2023 End: 01-17-2024 Lipid 1996 panel - Serum or Plasma LIPID PANEL BASIC Lab Routine Type 2 diabetes, controlled, with peripheral neuropathy (HCC) Expected: 11/17/2023, Expires: 01/17/[address] [facility] Work Phone: Comment on above: Expected: 11/17/2023 , Expires: 01/17/2024 Start: 11-15-2023 Behavioral Health Screening Behavioral Health Screening [facility] Start: 11-13-2023 Hemoglobin A1c/Hemoglobin.total in Blood HBA1C [facility] Start: 10-29-2023 Hepatitis B screening URINE ALBUMIN:CREATININE RATIO [facility] Start: 10-29-2023 Hepatitis B surface antibody level LDL CHOLESTEROL [facility] Start: 07-29-2023 3 comp foot exam completed DIABETIC FOOT EXAM [facility] Start: 07-16-2023 Covid-19 Vaccine () Covid-19 Vaccine () [facility] Start: 07-16-2023 Influenza vaccination [facility] Start: 05-21-2023 Hepatitis C antibody , confirmatory test DILATED RETINAL EXAM [facility] Start: 05-05-2023 End: 07-05-2023 Hemoglobin A1c in Blood HGB A1C Lab Routine Type 2 diabetes, controlled, with peripheral neuropathy (HCC) Expected: 05/05/2023, Expires: 07/05/[address] [facility] Work Phone: Comment on above: Expected: 05/05/2023 , Expires: 07/05/2023 Start: 04-29-2023 Hemoglobin A1c/Hemoglobin.total in Blood HBA1C [facility] Start: 11-15-2022 ADVANCE DIRECTIVE DISCUSSION ADVANCE DIRECTIVE DISCUSSION [facility] Start: 11-15-2022 DEPRESSION ASSESSMENT DEPRESSION ASS ESSMENT [facility] Start: 11-06-2022 End: 01-06-2023 ALBUMIN/CREAT RATIO RND UR ALBUMIN/CREAT RATIO RND UR Lab Routine Type 2 diabetes, controlled, with peripheral neuropathy (HCC) Expected: 11/06/2022, Expires: 01/06/[address] [facility] Work Phone: Comment on above: Expected: 11/06/2022 , Expires: 01/06/2023 Start: 11-06-2022 End: 01-06-2023 Comprehensive metabolic 2000 panel - Serum or Plasma COMP METABOLIC PANEL Lab Routine Type 2 diabetes, controlled, with peripheral neuropathy (HCC) Expected: 11/06/2022, Expires: 01/06/[address] [facility] Work Phone: Comment on above: Expected: 11/06/2022 , Expires: 01/06/2023 Start: 11-06-2022 End: 01-06-2023 Hemoglobin A1c in Blood HGB A1C Lab Routine Type 2 diabetes, controlled, with peripheral neuropathy (HCC) Expected: 11/06/2022, Expires: 01/06/[address] [facility] Work Phone: Comment on above: Expected: 11/06/2022 , Expires: 01/06/2023 Start: 11-06-2022 End: 01-06-2023 Lipid 1996 panel - Serum or Plasma LIPID PANEL BASIC Lab Routine Type 2 diabetes, controlled, with peripheral neuropathy (HCC) Expected: 11/06/2022, Expires: 01/06/[address] [facility] Work Phone: Comment on above: Expected: 11/06/2022 , Expires: 01/06/2023 Start: 10-31-2022 3 comp foot exam completed DIABETIC FOOT EXAM [facility] Start: 10-30-2022 Hemoglobin A1c/Hemoglobin.total in Blood HBA1C [facility] Start: 10-28-2022 Hepatitis B screening URINE ALBUMIN:CREATININE RATIO [facility] Start: 10-28-2022 Hepatitis B surface antibody level LDL CHOLESTEROL [facility] Start: 10-01-2022 COVID-19 VACCINE (4 - Booster for Pfizer series) COVID-19 VACCINE (4 - Booster for Pfizer series) [facility] Start: 09-03-2022 COVID-19 VACCINE (4 - Booster for Pfizer series) COVID-19 VACCINE (4 - Booster for Pfizer series) [facility] Start: 08-28-2022 End: 10-28-2022 25-hydroxyvitamin D3 [Mass/volume] in Serum or Plasma VITAMIN D 25 HYDROXY Lab Routine Hypercalcemia Expected: 08/28/2022, Expires: 10/28/[address] [facility] Work Phone: Comment on above: Expected: 08/28/2022 , Expires: 10/28/2022 Start: 08-28-2022 End: 10-28-2022 Calcium.ionized [Moles/volume] in Blood CALCIUM IONIZED BLOOD Lab Routine Hypercalcemia Expected: 08/28/2022, Expires: 10/28/[address] [facility] Work Phone: Comment on above: Expected: 08/28/2022 , Expires: 10/28/2022 Start: 08-28-2022 End: 10-28-2022 Parathyrin.intact [Mass/volume] in Serum or Plasma PTH INTACT BLD Lab Routine Hypercalcemia Expected: 08/28/2022, Expires: 10/28/[address] [facility] Work Phone: Comment on above: Expected: 08/28/2022 , Expires: 10/28/2022 Start: 08-25-2022 End: 10-25-2022 Calcium.ionized [Moles/volume] in Blood CALCIUM IONIZED BLOOD Lab Routine Hypercalcemia Expected: 08/25/2022, Expires: 10/25/[address] [facility] Work Phone: Comment on above: Expected: 08/25/2022 , Expires: 10/25/2022 Start: 08-25-2022 End: 10-25-2022 Parathyrin.intact [Mass/volume] in Serum or Plasma PTH INTACT BLD Lab Routine Hypercalcemia Expected: 08/25/2022, Expires: 10/25/[address] [facility] Work Phone: Comment on above: Expected: 08/25/2022 , Expires: 10/25/2022 Start: 07-16-2022 Influenza vaccination INFLUENZA (#1) [facility] Start: 07-01-2022 Hepatitis C antibody , confirmatory test DILATED RETINAL EXAM [facility] Start: 06-01-2022 Measurement of substance [facility] Work Phone: Start: 06-01-2022 Thiamine measurement [facility] Work Phone: Start: 06-01-2022 Vitamin D, 1,25-dihy droxy measurement [facility] Work Phone: Start: 04-28-2022 Hemoglobin A1c/Hemoglobin.total in Blood HBA1C [facility] Start: 11-15-2021 ADVANCE DIRECTIVE DISCUSSION ADVANCE DIRECTIVE DISCUSSION [facility] Start: 11-15-2021 DEPRESSION ASSESSMENT DEPRESSION ASS ESSMENT [facility] Start: 04-24-2021 COVID-19 VACCINE (3 - Pfizer risk 4-dose series) [facility] Start: 04-24-2021 COVID-19 VACCINE (3 - Pfizer risk series) COVID-19 VACCINE (3 - Pfizer risk series) [facility] Start: 1995 Hepatitis B Vaccine (1 of 3 - Risk 3-dose series) Hepatitis B Vaccine (1 of 3 - Risk 3-dose series) [facility] Start: 1995 RSV Vaccine (1 - 1-d ose 60+ series) RSV Vaccine (1 - 1-dose 60+ series) [facility] Alanine aminotransfe rase [Enzymatic activity/volume] in Serum or Plasma [facility] Albumin [Mass/volume ] in Serum or Plasma [facility] Alkaline phosphatase [Enzymatic activity/volume] in Serum or Plasma [facility] Anion gap in Serum o r Plasma [facility] Bacteria identified in Urine by Culture URINE CULTURE Microbiology Routine Dysuria 07/09/2022 4:03 PM EDT [facility] Work Phone: Bacteria identified in Urine by Culture URINE CULTURE Microbiology Routine Urinary frequency Ordered: 02/10/[address] [facility] Work Phone: Comment on above: Ordered: 02/10/2023 Bacteria identified in Urine by Culture URINE CULTURE Microbiology Routine Dysuria 05/17/2023 3:39 PM EDT [facility] Work Phone: Bilirubin, total measurement [facility] BUN/Creatinine ratio [facility] Calcium [Mass/volume ] in Serum or Plasma [facility] Carbon dioxide, tota l [Moles/volume] in Central venous blood [facility] Creatinine [Mass/vol ume] in Serum or Plasma [facility] Erythrocyte mean corpuscular volume determination [facility] Glucose [Mass/volume ] in Serum or Plasma [facility] Hematocrit [Volume Fraction] of Blood [facility] Hemoglobin [Mass/vol ume] in Blood [facility] Sturgeon and lambda lig ht chains [facility] Work Phone: Leukocytes [#/volume ] in Blood [facility] Mean corpuscular hemoglobin concentration determination [facility] Mean corpuscular hemoglobin determination [facility] Measurement of renal function [facility] Measurement of substance [facility] Work Phone: MR Brain WO and W co ntrast IV [facility] Work Phone: Neutrophil count [facility] Neutrophil percent differential count [facility] Platelets [#/volume] in Blood [facility] Potassium measurement [facility] Red blood cell count [facility] Red cell distributio n width determination [facility] Serum chloride measurement [facility] Sodium measurement [facility] Thiamine measurement [facility] Work Phone: Total protein measurement [facility] Urea nitrogen [Mass/volume] in Serum or Plasma [facility] Vitamin D, 1,25-dihy droxy measurement [facility] Work Phone: [facility] Immunizations Immunization Date Immunization Notes Care Provider [facility] 11-27-2024 COVID-19 vaccine, ag e 12+ yr (PFIZER-BIONTECH COMIRNATY) Sandra Sigala CRIMINOLOGY TEACHER.BOBBIN SORTER Work Phone: [facility] 11-27-2024 influenza, high dose seasonal, preservative-free Sandra Sigala CRIMINOLOGY TEACHER.BOBBIN SORTER Work Phone: [facility] 09-21-2023 COVID-19 vaccine, ag e 12+ yr, bivalent (PFIZER-BIONTECH) Fitz Walters MD Work Phone: [facility] Work Phone: 09-21-2023 influenza, high dose seasonal, preservative-free Fitz Walters MD Work Phone: [facility] Work Phone: 09-21-2023 influenza virus vaccine, unspecified formulation Fitz Walters MD Work Phone: [facility] 11-10-2022 COVID-19 booster vaccine, age 12+ yr, bivalent (PFIZER-BIONTECH) Sandra Older CRIMINOLOGY TEACHER.BOBBIN SORTER Work Phone: [facility] 11-10-2022 influenza, high-dose , quadrivalent vaccine (FLUZONE HIGH DOSE QUADRIVALENT) Sandra Older CRIMINOLOGY TEACHER.BOBBIN SORTER Work Phone: [facility] 11-10-2022 influenza virus vaccine, unspecified formulation Angelina Arnoldmer Work Phone: [facility] 07-09-2022 COVID-19 vaccine, ag e 12+ yr (PFIZER-BIONTECH - REYES TOP) Fitz Walters MD Work Phone: [facility] Work Phone: 09-29-2021 influenza, high-dose , quadrivalent vaccine (FLUZONE HIGH DOSE QUADRIVALENT) Sandra Older CRIMINOLOGY TEACHER.BOBBIN SORTER Work Phone: [facility] Work Phone: 07-31-2020 influenza, high-dose , quadrivalent vaccine (FLUZONE HIGH DOSE QUADRIVALENT) Sandra Older CRIMINOLOGY TEACHER.BOBBIN SORTER Work Phone: [facility] Work Phone: 06-29-2020 zoster vaccine recombinant Sandra Older CRIMINOLOGY TEACHER.BOBBIN SORTER Work Phone: [facility] Work Phone: 09-25-2019 zoster vaccine recombinant Sandra Older CRIMINOLOGY TEACHER.BOBBIN SORTER Work Phone: [facility] Work Phone: 09-13-2019 influenza, high dose seasonal, preservative-free Sandra Older CRIMINOLOGY TEACHER.BOBBIN SORTER Work Phone: [facility] Work Phone: 09-13-2019 pneumococcal polysaccharide vaccine, 23 valent Sandra Older CRIMINOLOGY TEACHER.BOBBIN SORTER Work Phone: [facility] Work Phone: 09-08-2018 influenza, high dose seasonal, preservative-free Sandra Older CRIMINOLOGY TEACHER.BOBBIN SORTER Work Phone: [facility] 10-28-2017 influenza, seasonal, injectable Sandra Older CRIMINOLOGY TEACHER.BOBBIN SORTER Work Phone: [facility] Work Phone: 10-20-2016 influenza, high dose seasonal, preservative-free Sandra Older CRIMINOLOGY TEACHER.BOBBIN SORTER Work Phone: [facility] 11-02-2015 pneumococcal conjuga te vaccine, 13 valent Sandra Older CRIMINOLOGY TEACHER.BOBBIN SORTER Work Phone: [facility] Work Phone: 10-08-2015 zoster vaccine, live Sandra Old er CRIMINOLOGY TEACHER.BOBBIN SORTER Work Phone: [facility] 09-11-2015 influenza, high dose seasonal, preservative-free Sandra Older CRIMINOLOGY TEACHER.BOBBIN SORTER Work Phone: [facility] 09-11-2015 tetanus and diphther ia toxoids, adsorbed, preservative free, for adult use (5 Lf of tetanus toxoid and 2 Lf of diphtheria toxoid) Sandra Older CRIMINOLOGY TEACHER.BOBBIN SORTER Work Phone: [facility] 09-04-2014 influenza, seasonal, injectable Sandra Older CRIMINOLOGY TEACHER.BOBBIN SORTER Work Phone: [facility] 11-01-2013 influenza virus vaccine, unspecified formulation Sandra Older CRIMINOLOGY TEACHER.BOBBIN SORTER Work Phone: [facility] 10-28-2012 influenza virus vaccine, unspecified formulation Sandra Older CRIMINOLOGY TEACHER.BOBBIN SORTER Work Phone: [facility] Work Phone: 10-06-2011 influenza virus vaccine, unspecified formulation Sandra Older CRIMINOLOGY TEACHER.BOBBIN SORTER Work Phone: [facility] Work Phone: 03-31-2011 tuberculin skin test ; purified protein derivative solution, intradermal Sandra Corin CRIMINOLOGY TEACHER.BOBBIN SORTER Work Phone: [facility] 09-25-2010 influenza virus vaccine, unspecified formulation Sandra Older CRIMINOLOGY TEACHER.BOBBIN SORTER Work Phone: [facility] Work Phone: 07-22-2010 tuberculin skin test ; purified protein derivative solution, intradermal Sandra Corin CRIMINOLOGY TEACHER.BOBBIN SORTER Work Phone: [facility] Work Phone: 10-08-2009 influenza virus vaccine, unspecified formulation Sandra Older CRIMINOLOGY TEACHER.BOBBIN SORTER Work Phone: [facility] Work Phone: 09-20-2007 influenza virus vaccine, unspecified formulation Sandra Older CRIMINOLOGY TEACHER.BOBBIN SORTER Work Phone: [facility] Work Phone: 09-08-2005 influenza virus vaccine, unspecified formulation Sandra Older CRIMINOLOGY TEACHER.BOBBIN SORTER Work Phone: [facility] Work Phone: Payers Date Payer Category Payer Self-pay [id number] 2006 Medicare [employer] MEDICARE THP [facility] [id number] 2006-Present [phone] [id number] [place] [address] [facility] [id number] 2006 Medicare [employer] MEDICARE THP [facility] O [id number] 2006-Present [phone] [address] [place] [address] [facility] [id number] 2006 Medicare (Managed Care) THP [facility] [id number] 2006 Medicare [id number] Unknown [id number] Unknown [id number] Unknown [id number] Unknown [id number] Unknown [id number] Unknown [id number] Social History Date Type Detail Facility Start: 05-11-2013 End: 03-08-2023 Tobacco smoking status NHIS Ex-smoker [facility] Work Phone: Start: 09-02-1975 End: 09-02-1990 History of tobacco use Current smoker [facility] Work Phone: Start: 01-29-2022 End: 11-27-2024 Alcohol intake Current non-drinker of alcohol (finding) [facility] Start: 05-11-2013 History SDOH Alcohol Comment Wine on few occasions a year. [facility] Start: 1935 Sex Assigned At Female [facility] Start: 04-27-2022 End: 07-31-2022 Exposure to SARS-CoV-2 (event) Not sure [facility] Work Phone: Start: 06-01-2022 End: 03-08-2023 Tobacco smoking status WIIS Unknown if ever smoked [facility] Start: 09-02-1975 End: 09-02-1990 History of tobacco use Cigarette Smoker [facility] Work Phone: Start: 05-11-2013 End: 05-17-2023 Cigarettes smoked current (pack per day) - Reported 1 [facility] Work Phone: Start: 05-11-2013 End: 11-27-2024 Tobacco use and exposure Smokeless tobacco non-user [facility] Work Phone: Start: 05-17-2023 End: 11-27-[address] [facility] Work Phone: Adult Depression Screening Assessment 0 [facility] Work Phone: Start: 07-08-2020 Gender identity Identifies as female gender (finding) [facility] Start: 07-08-2020 Sexual orientation Heterosexual (fin ding) [facility] How often to you hav e a drink containing alcohol? Never [facility] Work Phone: Start: 12-01-2024 Alcoholic beverage intake Ex-drinker (finding) [facility] Start: 02-01-2025 Sex Female (finding) Dominic r [facility] Medical Equipment Procedure Code Equipment Code Equipment Origin al Text Equipment Identifier Dates [id number], [id number] Start: 10-31-2021 Comment on above: Test blood sugar onc e daily. Dx: E11.42. Insulin: No. Test blood sugar(s) 1 times daily. Dx: Other DM Code E11.42 , Insulin: No Functional Status Date Assessment Result Facility 06-05-2015 Are you deaf, or do you have serious difficulty hearing No 06/05/2015 2:35 PM Valerie Mckinney RN [facility] 06-05-2015 Are you blind, or do you have serious difficulty seeing, even when wearing glasses No 06/05/2015 2:35 PM Valerie Mckinney RN No [facility] 06-05-2015 Do you have serious difficulty walking or climbing stairs No 06/05/2015 2:35 PM Valerie Mckinney RN No [facility] 06-05-2015 Do you have difficul ty dressing or bathing No 06/05/2015 2:35 PM Valerie Mckinney RN No [facility] 06-05-2015 Because of a physica l, mental, or emotional condition, do you have difficulty doing errands alone such as visiting a physician's office or shopping No 06/05/2015 2:35 PM Valerie Mckinney RN No [facility] Mental Status Date Assessment Result Facility 06-05-2015 Because of a physica l, mental, or emotional condition, do you have serious difficulty concentrating, remembering, or making decisions No 06/05/2015 2:35 PM EDT Valerie Godwin RN No [facility] Clinical Notes 03-12-2016 to 04-17-2025 Note Date & Type Note Facility 04-17-2025 Evaluation note Diagnosis Onset Date Resolution Abnormality of gait and mobility chronic April 17, 2025 1:52pm Mild cognitive impairment chronic April 17, 2025 1:52pm Polyneuropathy chronic April 17, 2025 1:52pm Urinary frequency chronic April 1:52pm [facility] Work Phone: [phone] 496-449705-19-2025 Telephone encounter Note* Telephone Encounter - Alee Brown LPN - 04/02/2025 12:37 PM EDT Patient notified, she has refills remaining for Atorvastatin (Lipitor), written 01/16/2025 at [facility]. Alee Brown LPN [facility]05-19-2025 Miscellaneous Notes* Telephone Encounter - Alee Brown LPN - 04/02/2025 12:37 PM EDT Patient notified, she has refills remaining for Atorvastatin (Lipitor), written 01/16/2025 at [facility]. Alee Brown LPN documented in this encounterSt. Mary'S [facility]03-24-2025 Telephone encounter Note * Telephone Encounter - [...] times a day with meals. Yany Segovia [facility] February 05, 2025 9:[address] [facility]03-24-[facility]25 Miscellaneous Notes* Telephone Encounter - Keller Yany Matamoros - 02/05/2025 9:14 AM EDT [...] times a day with meals. Yany Segovia [facility] February 05, 2025 9:14 AM documented in this encounterSt. Mary'S Medical Center01-17-2025 NoteHNO ID: [id number] Author: ANGELINA GODWIN, ? Service: ? Author [...] Care Bernice Eason LPN documented in this encounterSt. Mary'S Medical Center01-17-2025 Instructions* Patient Instructions* Angelina Godwin - 12/01/2024 [...] (or decreased sensation in your feet) a quarter supervisor should always cut your toenails. Be Careful [...] Go to your health care provider or quarter supervisor to treat these conditions. documented in this encounterSt. Mary'S Medical Center01-17-2025 NoteHNO ID: [id number] Author: BERNICE EASON LPN Service: ? Author Type: LICENSED NURSE Type: Progress Notes Filed: 12/01/2024 13:47 Note Text: Patient presents with: Right Foot - Established Patient, Pain: Nail Care Left Foot - Established Patient, Pain: Nail Care BRA[facility] Instructions* Patient Instructions* Sandra Sigala, RO.BOBBIN SORTER - 11/27/2024 2:05 PM EST Screening schedule [...] review all the medicines you take, even wahp-zid-hexdnuf medicines. As you get older, the way [...] have certain medical conditions. documented in this encounterSt. Mary'S Medical Center01-13-2025 NoteHNO ID: [id number] Author: SANDRA SIGALA APRN.CNP Service: ? Author [...] PCP - General Sandra Sigala APRN.CNP as Icu Rn (Internal Medicine) Retinal specialist- [facility] Dr. Gould-neurologist Dr. Godwin-quarter supervisor Dr. Hinds-property investor Medical/Family history review Reviewed and updated problem [...] YR, HIGH DOSE, TRIVALENT (FLUZONE HIGH-DOSE) - [email or web address] COVID-19 VACCINE AGE 12+ YR (COMIRNATY) Sandra Sigala [facility] History of Present illness Narrative* Sandra [...] PCP - General Sandra Sigala APRN.CNP as Icu Rn (Internal Medicine) Retinal specialist- [facility] Dr. Gould-neurologist Dr. Godwin-quarter supervisor Dr. Hinds-property investor Medical/Family history review Reviewed and updated problem [...] YR, HIGH DOSE, TRIVALENT (FLUZONE HIGH-DOSE) - Fin [employer] COVID-19 VACCINE AGE 12+ YR (COMIRNATY) Sandra Sigala APRN.BOBBIN SORTER documented in this encounterSt. Mary'S Medical Center07-11-2024 NoteHNO ID: [id number] Author: FITZ WALTERS MD Service: ? Author Type: Physician Type: Progress Notes Filed: 05/25/2024 15:19 Note Text: This note was created using Playcezriter. Subjective Yann Adair is a 88 year [...] tablet by mouth daily with breakfast. Lancets (GlucoTec ULTRASOFT LANCETS) lancets Test blood sugar(s) 1 [...] about pharmacy pre packaging medications. Fitz Walters, [facility]07-11-2024 History of Present illness Narrative* Fitz Walters MD - 05/25/2024 2:57 PM EDT This note was created using Playcezriter. Subjective Yann Adair is a 88 year [...] tablet by mouth daily with breakfast. Lancets (Movius InteractiveUCH ULTRASOFT LANCETS) lancets Test blood sugar(s) 1 [...] medications. Fitz Walters MD documented in this encounterSt. Mary'S Medical Center06-03-2024 Telephone encounter Note * Telephone Encounter - [...] Please advise. Thank you. Karolina Smith LPN. [facility]06-03-2024 Miscellaneous Notes* Telephone Encounter - Karolina Smith [...] you. Karolina Smith LPN. documented in this encounterSt. Mary'S Medical Center04-11-2024 Miscellaneous Notes* Telephone Encounter - Alee Brown [...] notify patient. Shavon Flannery documented in this encounterSt. Mary'S Medical Center04-05-2024 Miscellaneous Notes* Telephone Encounter - Linda Roque [...] Thank you. Linda Roque. documented in this encounterSt. Mary'S Medical Center02-29-2024 NoteHNO ID: [id number] Author: ANGELINA GODWIN, ? Service: ? Author [...] Objective: Patient presents to clinic ambulating in [facility] Vasc: DP and PT pulses [...] Objective: Patient presents to clinic ambulating in [facility] Vasc: DP and PT pulses [...] months. Angelina Godwin DPM documented in this encounterSt. Mary'S Medical Center02-19-2024 Miscellaneous Notes* Telephone Encounter - Beverley Nick [...] day 9. OTHER SYMPTOMS:Denies light-headedness Protocols used: [id number] documented in this encounterSt. Mary'S Medical Center11-03-2023 History of Present illness Narrative* Lonnie Angelina [...] issues. Diabetic foot check. documented in this encounterSt. Mary'S Medical Center11-03-2023 Instructions* Patient Instructions* Angelina Godwin - 09/17/2023 [...] (or decreased sensation in your feet) a quarter supervisor should always cut your toenails. Be Careful [...] Go to your health care provider or quarter supervisor to treat these conditions. documented in this encounterSt. Mary'S Medical Center07-10-2023 Miscellaneous Notes* Telephone Encounter - Alee Brown [...] 7 days sent. Fluids. documented in this encounterSt. Mary'S Medical Center07-03-2023 Instructions* Patient Instructions* Fitz Walters MD - 05/17/2023 3:37 PM EDT WE WILL CALL WITH URINE CULTURE RESULTS IN 2-3 DAYS. FASTING BLOOD WORK IN 6 MONTHS. documented in this encounterSt. Mary'S Medical Center07-03-2023 History of Present illness Narrative* Fitz Walters MD - 05/17/2023 3:16 PM EDT This note was created using Bigvest. Subjective Yann Adair is a 87 year [...] parking. Fitz Walters MD documented in this encounterSt. Mary'S Medical Center06-21-2023 Miscellaneous Notes* Telephone Encounter - Dhara Jimenez RN - 05/05/2023 12:52 PM EDT Pt called and is notified of providers instructions. Pt voices understanding. Dhara Jimenez RN * Telephone Encounter - Angela Saucedo Pss - 05/05/2023 10:15 AM EDT Patient calling askng if she needs labs drawn prior to May 17 office visit. Please advise and call patient. documented in this encounterSt. Mary'S Medical Center05-31-2023 Miscellaneous Notes* Telephone Encounter - Alee Brown [...] patient. Eli Cornell Pss documented in this encounterSt. Mary'S Medical Center03-31-2023 Miscellaneous Notes* Telephone Encounter - Lynette Kennedy [...] resolved. Lisa Wilson CNP documented in this encounterSt. Mary'S Medical Center03-29-2023 History of Present illness Narrative* Milagros Gramajo APRN.CNP - 02/10/2023 12:02 PM EDT This note was created using Playcezriter. Subjective Yann Adair is a 87 year [...] Level: 3 - Low documented in this encounterSt. Mary'S Medical Center03-28-2023 Miscellaneous Notes* Telephone Encounter - Sandra Mahoney [...] understanding. Evelyne Moe RN documented in this encounterSt. Mary'S Medical Center03-22-2023 Miscellaneous Notes* Telephone Encounter - Felecia Cruz [...] pharmacy. No need to notify patient. [employer] documented in this encounterSt. Mary'S Medical Center12-27-2022 History of Present illness Narrative* Sandra Mahoney APRN.JAIME - 11/10/2022 1:19 PM EST Yann Adair is a 86 year old female here for a Medicare Subsequent Annual Wellness Visit Health Risk Assessment In general, health is: Very good Concerns with balance:Not at all Concerns with teeth or dentures:Not at all Concerns with sexual function:na [place] anxious, stressed, angry, irritable, lonely, isolated, or [...] Podiatry Outside specialists seen: Neurologist- Dr. Cantu Shop Coordinator- Dr. Hinds Die Sinking Machine Operator- Dr. Liban Leiva Counter Professional- Dr. Finley Medical/Family history review Reviewed and [...] at this time. - Patient was counseled ruon-pk-qqaf by myself (the billing provider) for the [...] 65+ Sandra Mahoney APRN.CNP documented in this encounterSt. Mary'S Medical Center12-27-2022 Instructions* Patient Instructions* Sandra Mahoney APRN.CNP - [...] review all the medicines you take, even sjjm-nfp-qisbagp medicines. As you get older, the way [...] have certain medical conditions. documented in this encounterSt. Mary'S Medical Center11-03-2022 Miscellaneous Notes* Telephone Encounter - Ne Shen LPN - 09/17/2022 2:53 PM EDT Gail from [facility] calling asking for copy of patients bone density be faxed to [phone]. Printed from 04/2013 and faxed as requested. documented in this encounterSt. Mary'S Medical Center11-01-2022 Miscellaneous Notes* Telephone Encounter - Liban Wu Ma - 09/15/2022 1:11 PM EDT Patient notified, verbalized understanding and transferred to top and seat cover fitter. * Telephone Encounter - Liban Wu Ma - 09/14/2022 11:45 AM EDT Left message to call office. 09/14/2022 11:45 AM * Telephone Encounter - Sandra Mahoney APRN.CNP - 09/14/2022 8:45 AM EDT Calcium is still elevated, patient needs to see endocrinology Sandra Mahoney APRN.CNP documented in this encounterSt. Mary'S Medical Center10-14-2022 Miscellaneous Notes* Telephone Encounter - Liban Wu Ma - 08/28/2022 2:52 PM EDT Patient notified, verbalized understanding. * Telephone Encounter - Sandra Mahoney APRN.CNP - 08/28/2022 2:15 PM EDT Please let the patient know the lab test showed minimal elevation. Recommend rechecking in a coupleweeks and if it is still elevated will refer her to dust box worker. In the meantime make sure she is not taking any calcium supplements. She does not need to limit the calcium in her diet however. Sandra Mahoney APRN.CNP documented in this encounterSt. Mary'S Medical Center10-11-2022 Miscellaneous Notes* Telephone Encounter - Marlene Austin [...] 1:44 PM EDT Lab results printed from [employer], given to [employer]EL[employer] FIRST [employer]. Alee Brown LPN * Telephone Encounter - Sandra Mahoney APRN.CNP - 08/25/2022 12:35 PM EDT Please get lab results from [employer] Sandra Mahoney APRN.CNP * Telephone Encounter - Evelyne Moe RN - 08/25/2022 9:53 AM EDT Patient calls and states that she had labs done at Dr. Hinds's office yesterday. Patient states that she was told that her calcium was 11. Patient states that she was suppose to call PCP in regards to this. Please review and advise, Evelyne Moe RN documented in this encounterSt. Mary'S Medical Center09-16-2022 History of Present illness Narrative* Angelina Godwin [...] Care Hilary Skaggs LPN documented in this encounterSt. Mary'S Medical Center09-16-2022 Instructions* Patient Instructions* Angelina Godwin - 07/31/2022 [...] (or decreased sensation in your feet) a quarter supervisor should always cut your toenails. Be Careful [...] Go to your health care provider or quarter supervisor to treat these conditions. documented in this encounterSt. Mary'S Medical Center09-01-2022 Miscellaneous Notes* Telephone Encounter - Miley Paredes [...] her urine culture results. Patient's pharmacy is [facility]. Please review and advise, Evelyne Moe RN documented in this encounterSt. Mary'S Medical Center08-25-2022 Instructions* Patient Instructions* Fitz Walters MD - 07/09/2022 2:56 PM EDT STOP [facility]. URINE CULTURE SENT AND WILL DETERMINE IF ANTIBIOTIC IS NEEDED. documented in this encounterSt. Mary'S Medical Center08-25-2022 History of Present illness Narrative* Fitz Walters MD - 07/09/2022 2:23 PM EDT This note was created using Playcezriter. Subjective Yann Adair is a 86 year [...] TOP) Fitz Walters MD documented in this encounterSt. Mary'S Medical Center08-24-2022 Miscellaneous Notes* Telephone Encounter - Dhara Jimenez [...] 6. : no Protocols used: Medication Question [id number] documented in this encounterSt. Mary'S Medical Center07-23-2022 Miscellaneous Notes* Telephone Encounter - Felecia Anthony COBURN - 06/06/2022 8:42 AM EDT Images from the original note were not included. Prior authorization approved Payer: [employer]IVERY [phone] CaseId:[id number];Status:Approved;Review Type:Prior Auth;Coverage Start Date:05/22/2022;Coverage End Date:06/05/2023; Approval Details Authorized from May 22, 2022 to June 05, 2023 Pharmacy notified. * Telephone Encounter - Felecia Cruz LPN - 06/05/2022 2:41 PM EDT Electronic PA completed for solifenacin. documented in this encounterSt. Mary'S Medical Center07-20-2022 Miscellaneous Notes* Telephone Encounter - Alee Brown [...] to pharmacy Shavon Flannery documented in this encounterSt. Mary'S Medical Center07-18-2022 Miscellaneous Notes* Telephone Encounter - Patsy Guthrie LPN - 06/01/2022 10:25 AM EDT Summer with [facility] calls to request pt's last OV notes to confirm why pt is requesting an appt with their office. OV notes faxed to: [phone] as requested. Patsy Guthrie LPN documented in this encounterSt. Mary'S Medical Center06-23-2022 History of Present illness Narrative* Fitz Walters MD - 05/07/2022 2:06 PM EDT This note was created using Playcezriter. Subjective Yann Adair is a 86 year [...] tablet by mouth daily with breakfast. Lancets (Synapse BiomedicalTOUCH ULTRASOFT LANCETS) lancets Test blood sugar(s) 1 [...] normal. Fitz Walters MD documented in this encounterSt. Mary'S Medical Center06-01-2022 Miscellaneous Notes* Telephone Encounter - Alee Brown LPN - 04/15/2022 1:00 PM EDT Spoke to Patient, meds were escripted to [facility], 01/19/2022 for 1 year. Patient will check [...] to the pharmacy. Please call patient at: [phone]. Eli Cornell Pss documented in this encounterSt. Mary'S Medical Center04-27-2022 Miscellaneous Notes* Telephone Encounter - Liban Wu [...] hip, leg. Please advise documented in this encounterSt. Mary'S Medical Center04-28-2016 History of Past illness Narrative* Problem Noted [...] of this encounter (statuses as of 03/11/2022) [facility] of Past illness Narrative* Problem Noted [...] of this encounter (statuses as of 03/17/2022) [facility] illness Narrative* Problem Noted [...] of this encounter (statuses as of 04/15/2022) [facility] of Past illness Narrative* Problem Noted [...] of this encounter (statuses as of 05/07/2022) [facility] Past illness Narrative* Problem Noted [...] of this encounter (statuses as of 06/01/2022) [facility] of Past illness Narrative* Problem Noted [...] of this encounter (statuses as of 06/03/2022) [facility] Narrative* Problem Noted [...] of this encounter (statuses as of 06/06/2022) [facility] Narrative* Problem Noted [...] of this encounter (statuses as of 07/08/2022) [facility] Narrative* Problem Noted [...] of this encounter (statuses as of 07/09/2022) [facility] Narrative* Problem Noted [...] of this encounter (statuses as of 07/16/2022) [facility] Narrative* Problem Noted [...] of this encounter (statuses as of 07/31/2022) [facility] Narrative* Problem Noted [...] of this encounter (statuses as of 08/10/2022) [facility] Narrative* Problem Noted [...] of this encounter (statuses as of 08/25/2022) [facility] Narrative* Problem Noted [...] of this encounter (statuses as of 08/28/2022) [place] [id number] History of Past illness Narrative* Problem Noted [...] of this encounter (statuses as of 09/15/2022) [facility] Narrative* Problem Noted [...] of this encounter (statuses as of 09/17/2022) [facility] Narrative* Problem Noted [...] of this encounter (statuses as of 11/16/2022) [facility] Narrative* Problem Noted [...] of this encounter (statuses as of 02/04/2023) [facility] Narrative* Problem Noted [...] of this encounter (statuses as of 02/09/2023) [facility] Narrative* Problem Noted [...] of this encounter (statuses as of 02/10/2023) [facility] Narrative* Problem Noted [...] of this encounter (statuses as of 02/12/2023) [facility] Narrative* Problem Noted [...] of this encounter (statuses as of 04/14/2023) [facility] Narrative* Problem Noted [...] of this encounter (statuses as of 05/05/2023) [facility] Narrative* Problem Noted [...] of this encounter (statuses as of 05/18/2023) [facility] Narrative* Problem Noted [...] of this encounter (statuses as of 05/25/2023) [facility] Narrative* Problem Noted [...] of this encounter (statuses as of 09/18/2023) [facility] Narrative* Problem Noted [...] of this encounter (statuses as of 01/03/2024) [facility] Narrative* Problem Noted [...] of this encounter (statuses as of 01/14/2024) [facility] N[facility]* Problem Noted [...] of this encounter (statuses as of 02/19/2024) [facility] Narrative* Problem Noted [...] of this encounter (statuses as of 02/25/2024) [facility]* Diagnosis Type 2 diabetes, controlled, with peripheral neuropathy (HCC) Type II or unspecified type diabetes mellitus with neurological manifestations, not stated as uncontrolled Essential hypertension Unspecified essential hypertension Hyperlipidemia, unspecified hyperlipidemia type [facility] this [facility]* Diagnosis Type 2 diabetes, controlled, with peripheral neuropathy (HCC)- Primary Type II or unspecified type diabetes mellitus with neurological manifestations, not stated as uncontrolled Unsteady gait Abnormality of gait Urge incontinence of urine Urge incontinence Nocturia Hyperkalemia Hyperpotassemia documented [facility] this encounter [facility] CenterEvalum[facility] noteNo assessment information availableWCommunity Memorial Hospital Work Phone: Evaluation note* Diagnosis Onset Date Resolution Status Abnormality of gait and mobility chronic Anemia chronic Mild cognitive impairment ch ronic Polyneuropathy chronic Vitamin d deficiency chronic Neuropathy noneactive [facility] Work Phone: Evaluation note* Diagnosis Urge incontinence of urine Urge incontinence Nocturia documented [facility]* Diagnosis Urge incontinence of urine- Primary Urge incontinence Nocturia Medication side effects Unspecified adverse effect of unspecified drug, medicinal and biological substance Dysuria Need for COVID-19 vaccine documented [facility] this [facility]* Diagnosis Hyperlipidemia, unspecified hyperlipidemia type Dysuria documented in this [facility]* Diagnosis Onychomycosis- Primary Dermatophytosis of nail [...] of both feet documented [facility] this [facility]* Diagnosis Type 2 diabetes, controlled, with peripheral neuropathy (HCC)- Primary Type II or unspecified type diabetes mellitus with neurological manifestations, not stated as uncontrolled Posterior tibial tendon dysfunction (PTTD) of right lower extremity documented [facility] this [facility]* Diagnosis Hypercalcemia- Primary documented in this [facility]* Diagnosis Hypercalcemia- Primary documented in this [facility]* Diagnosis Hypercalcemia- Primary documented in this [facility]* Diagnosis Medicare annual wellness visit, subsequent- Primary Routine general medical examination at a health care facility Encounter for immunization Need for other specified prophylactic vaccination against single bacterial disease documented [facility] this [facility]* Diagnosis Type 2 diabetes, controlled, with peripheral neuropathy (HCC) Type II or unspecified type diabetes mellitus with neurological manifestations, not stated as uncontrolled documented [facility] this [facility]* Diagnosis Onset Date Resolution Status Fatigue acute Abnormality of gait and mobility chronic Mild cognitive impairment ch ronic Polyneuropathy chronic Urinary frequency chronic [facility] Work Phone: Evaluation note* Diagnosis Urinary frequency- Primary Acute cystitis with hematuria Acute cystitis [facility]* Diagnosis Onset Date Resolution Status Fatigue acute Abnormality of gait and mobility chronic Mild cognitive impairment ch ronic Polyneuropathy chronic Urinary frequency chronic Hypercalcemia acute Fatigue acute [facility] Work Phone: Evaluation note* Diagnosis Type 2 diabetes, controlled, with peripheral neuropathy (HCC) Type II or unspecified type diabetes mellitus with neurological manifestations, not stated as uncontrolled Essential hypertension Unspecified essential hypertension documented [facility] this [facility]* Diagnosis Type 2 diabetes, controlled, with peripheral neuropathy (HCC)- Primary Type II or unspecified type diabetes mellitus with neurological manifestations, not stated as uncontrolled [facility] this [facility]* Diagnosis Type 2 diabetes, controlled, with peripheral neuropathy (HCC)- Primary Type II or unspecified type diabetes mellitus with neurological manifestations, not stated as uncontrolled Essential hypertension Unspecified essential hypertension Dysuria Generalized osteoarthrosis Generalized osteoarthrosis, unspecified site [facility] this [facility]* Diagnosis Onset Date Resolution Status Hypercalcemia acute Fatigue acute Abnormality of gait and mobility chronic Polyneuropathy chronic [facility] Work Phone: Evaluation note* Diagnosis Onset Date Resolution Status Abnormality of gait and mobility chronic Polyneuropathy chronic [facility] Work Phone: Evaluation note* Diagnosis Onychomycosis- Primary Dermatophytosis of nail Pain in toe of right foot Pain in limb Pain in toe of left foot Pain in limb Type 2 diabetes, controlled, with peripheral neuropathy (HCC) Type II or unspecified type diabetes mellitus with neurological manifestations, not stated as uncontrolled [facility] this [facility]* Diagnosis Onychomycosis- Primary Dermatophytosis of nail Pain in toe of right foot Pain in limb Pain in toe of left foot Pain in limb Type 2 diabetes, controlled, with peripheral neuropathy (HCC) Type II or unspecified type diabetes mellitus with neurological manifestations, not stated as uncontrolled Callus of foot Corns and callosities documented in this encounter [facility] note* Diagnosis Type 2 diabetes, controlled, with peripheral neuropathy (HCC) Type II or unspecified type diabetes mellitus with neurological manifestations, not stated as uncontrolled [facility] Diagnosis Hyperlipidemia, unspecified hyperlipidemia type [facility] Diagnosis Essential hypertension Unspecified essential hypertension Type 2 diabetes, controlled, with peripheral neuropathy (HCC) Type II or unspecified type diabetes mellitus with neurological manifestations, not stated as uncontrolled 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 Diagnosis Medicare annual wellness visit, subsequent- [...] single bacterial disease [facility]* Diagnosis Onychomycosis- Primary Dermatophytosis of nail Pain in toe of right foot Pain in limb Pain in toe of left foot Pain in limb Type 2 diabetes, controlled, with peripheral neuropathy (HCC) Type II or unspecified type diabetes mellitus with neurological manifestations, not stated as uncontrolled Callus of foot Corns and callosities [facility] Diagnosis Hyperlipidemia, unspecified hyperlipidemia type Type 2 diabetes, controlled, with peripheral neuropathy (HCC) Type II or unspecified type diabetes mellitus with neurological manifestations, not stated as uncontrolled documented [facility] Diagnosis Hyperlipidemia, unspecified hyperlipidemia type 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 Advance Directive(s) 01/09/2015 10:48 AM Advance Directive(s) 01/09/2015 10:52 AM Documents on File Type Date Recorded Patient Window Cleaner Expl anation Advance Directive(s) 01/09/2015 10:48 AM Advance Directive(s) 01/09/2015 10:52 AM Documents on File Type Date Recorded Patient Window 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 the event this information is protected by the Federal Confidentiality of Alcohol and Drug Abuse Patient Records regulations: The Federal rules restrict any use of the information to criminally investigate or prosecute any alcohol or drug abuse patient.[facility] the event this information is protected by the Federal Confidentiality of Alcohol and Drug Abuse Patient Records regulations: The Federal rules restrict any use of the information to criminally investigate or prosecute any alcohol or drug abuse patient.[facility] the event this information is protected by the Federal Confidentiality of Alcohol and Drug Abuse Patient Records regulations: The Federal rules restrict any use of the information to criminally investigate or prosecute any alcohol or drug abuse patient.[facility] the event this information is protected by the Federal Confidentiality of Alcohol and Drug Abuse Patient Records regulations: The Federal rules restrict any use of the information to criminally investigate or prosecute any alcohol or drug abuse patient.[facility] the event this information is protected by the Federal Confidentiality of Alcohol and Drug Abuse Patient Records regulations: The Federal rules restrict any use of the information to criminally investigate or prosecute any alcohol or drug abuse patient.[facility] the event this information is protected by the Federal Confidentiality of Alcohol and Drug Abuse Patient Records regulations: The Federal rules restrict any use of the information to criminally investigate or prosecute any alcohol or drug abuse patient.[facility] Center[facility] the event this information is protected by the Federal Confidentiality of Alcohol and Drug Abuse Patient Records regulations: The Federal rules restrict any use of the information to criminally investigate or prosecute any alcohol or drug abuse patient.[facility] Center[facility] the event this information is protected by the Federal Confidentiality of Alcohol and Drug Abuse Patient Records regulations: The Federal rules restrict any use of the information to criminally investigate or prosecute any alcohol or drug abuse patient.[facility] Center[facility] the event this information is protected by the Federal Confidentiality of Alcohol and Drug Abuse Patient Records regulations: The Federal rules restrict any use of the information to criminally investigate or prosecute any alcohol or drug abuse patient.[facility] Center[facility] the event this information is protected by the Federal Confidentiality of Alcohol and Drug Abuse Patient Records regulations: The Federal rules restrict any use of the information to criminally investigate or prosecute any alcohol or drug abuse patient.[facility] Center[facility] the event this information is protected by the Federal Confidentiality of Alcohol and Drug Abuse Patient Records regulations: The Federal rules restrict any use of the information to criminally investigate or prosecute any alcohol or drug abuse patient.[facility] Center[facility] the event this information is protected by the Federal Confidentiality of Alcohol and Drug Abuse Patient Records regulations: The Federal rules restrict any use of the information to criminally investigate or prosecute any alcohol or drug abuse patient.[facility] the event this information is protected by the Federal Confidentiality of Alcohol and Drug Abuse Patient Records regulations: The Federal rules restrict any use of the information to criminally investigate or prosecute any alcohol or drug abuse patient.[facility] Center[facility] the event this information is protected by the Federal Confidentiality of Alcohol and Drug Abuse Patient Records regulations: The Federal rules restrict any use of the information to criminally investigate or prosecute any alcohol or drug abuse patient.[facility] Center[facility] the event this information is protected by the Federal Confidentiality of Alcohol and Drug Abuse Patient Records regulations: The Federal rules restrict any use of the information to criminally investigate or prosecute any alcohol or drug abuse patient.[facility] CenterIn the event this information is protected by the Federal Confidentiality of Alcohol and Drug Abuse Patient Records regulations: The Federal rules restrict any use of the information to criminally investigate or prosecute any alcohol or drug abuse patient.[facility] CenterIn the event this information is protected by the Federal Confidentiality of Alcohol and Drug Abuse Patient Records regulations: The Federal rules restrict any use of the information to criminally investigate or prosecute any alcohol or drug abuse patient.[facility] CenterIn the event this information is protected by the Federal Confidentiality of Alcohol and Drug Abuse Patient Records regulations: The Federal rules restrict any use of the information to criminally investigate or prosecute any alcohol or drug abuse patient.[facility] CenterIn the event this information is protected by the Federal Confidentiality of Alcohol and Drug Abuse Patient Records regulations: The Federal rules restrict any use of the information to criminally investigate or prosecute any alcohol or drug abuse patient.[facility] Center[facility] the event this information is protected by the Federal Confidentiality of Alcohol and Drug Abuse Patient Records regulations: The Federal rules restrict any use of the information to criminally investigate or prosecute any alcohol or drug abuse patient.[facility] CenterIn the event this information is protected by the Federal Confidentiality of Alcohol and Drug Abuse Patient Records regulations: The Federal rules restrict any use of the information to criminally investigate or prosecute any alcohol or drug abuse patient.[facility] CenterIn the event this information is protected by the Federal Confidentiality of Alcohol and Drug Abuse Patient Records regulations: The Federal rules restrict any use of the information to criminally investigate or prosecute any alcohol or drug abuse patient.[facility] CenterIn the event this information is protected by the Federal Confidentiality of Alcohol and Drug Abuse Patient Records regulations: The Federal rules restrict any use of the information to criminally investigate or prosecute any alcohol or drug abuse patient.[facility] CenterIn the event this information is protected by the Federal Confidentiality of Alcohol and Drug Abuse Patient Records regulations: The Federal rules restrict any use of the information to criminally investigate or prosecute any alcohol or drug abuse patient.[facility] Center[facility] the event this information is protected by the Federal Confidentiality of Alcohol and Drug Abuse Patient Records regulations: The Federal rules restrict any use of the information to criminally investigate or prosecute any alcohol or drug abuse patient.[facility] CenterIn the event this information is protected by the Federal Confidentiality of Alcohol and Drug Abuse Patient Records regulations: The Federal rules restrict any use of the information to criminally investigate or prosecute any alcohol or drug abuse patient.[facility] CenterIn the event this information is protected by the Federal Confidentiality of Alcohol and Drug Abuse Patient Records regulations: The Federal rules restrict any use of the information to criminally investigate or prosecute any alcohol or drug abuse patient.[facility] CenterIn the event this information is protected by the Federal Confidentiality of Alcohol and Drug Abuse Patient Records regulations: The Federal rules restrict any use of the information to criminally investigate or prosecute any alcohol or drug abuse patient.[facility] CenterIn the event this information is protected by the Federal Confidentiality of Alcohol and Drug Abuse Patient Records regulations: The Federal rules restrict any use of the information to criminally investigate or prosecute any alcohol or drug abuse patient.[facility] CenterIn the event this information is protected by the Federal Confidentiality of Alcohol and Drug Abuse Patient Records regulations: The Federal rules restrict any use of the information to criminally investigate or prosecute any alcohol or drug abuse patient.[facility] CenterIn the event this information is protected by the Federal Confidentiality of Alcohol and Drug Abuse Patient Records regulations: The Federal rules restrict any use of the information to criminally investigate or prosecute any alcohol or drug abuse patient.[facility] CenterIn the event this information is protected by the Federal Confidentiality of Alcohol and Drug Abuse Patient Records regulations: The Federal rules restrict any use of the information to criminally investigate or prosecute any alcohol or drug abuse patient.[facility] CenterIn the event this information is protected by the Federal Confidentiality of Alcohol and Drug Abuse Patient Records regulations: The Federal rules restrict any use of the information to criminally investigate or prosecute any alcohol or drug abuse patient.[facility] CenterIn the event this information is protected by the Federal Confidentiality of Alcohol and Drug Abuse Patient Records regulations: The Federal rules restrict any use of the information to criminally investigate or prosecute any alcohol or drug abuse patient.[facility] CenterIn the event this information is protected by the Federal Confidentiality of Alcohol and Drug Abuse Patient Records regulations: The Federal rules restrict any use of the information to criminally investigate or prosecute any alcohol or drug abuse patient.[facility] Reason for Visit (unrecogniz ed section and [...] Comments Results Reason Comments Results Reason Comments [facility] requesting rec ords Reason Comments Medicare Wellness Exam Specialty Diagnoses / Procedures Referred By Contac t Referred To Contact Internal Medicine / INTERNAL MEDICINE Diagnoses Follow-up exam, 3-6 months since previous exam Annual Medicare Wellness w/6 month follow-up Procedures OFFICE/OUTPATIENT ESTABLISHED MOD MDM 30-39 MIN 4C EST WELL Fitz Walters MD [address] [place] [address] Sandra Mahoney, CRIMINOLOGY TEACHER.BOBBIN SORTER [address] [place] [address] Referral ID Status Reason Start Date Expiration Date V isits Requested Visits Authorized [id number] Authorized 11/10/2022 02/08/2023 3 3 Reason Comments [...] 40 MIN 4C EST WELL Sandra Sigala, CRIMINOLOGY TEACHER.BOBBIN SORTER [address] [place] [address] Sandra Sigala, CRIMINOLOGY TEACHER.BOBBIN SORTER [address] [place] [address] Referral ID Status Reason Start Date Expiration Date V isits Requested Visits Authorized [id number] Authorized 11/14/2024 11/14/2025 99 99 Reason Comments Established Patient Nail Care Pain Nail Care Reason Onset Date Comments Refill Request 02/05/2025 Reason Onset Date Comments Refill Request 04/02/2025 Care Teams (unrecognized sec tion and content) Glove Tagger Relationship Specialty Start Date End Date Fitz Walters MD [address] [place] [address] PCP - General 09/08/02 Glove Tagger Relationship Specialty Start Date End Date Fitz Walters MD [address] [place] [address] PCP - General 09/08/02 Glove Tagger Relationship Specialty Start Date End Date Fitz Walters MD [address] [place] [address] PCP - General 09/08/02 Glove Tagger Relationship Specialty Start Date End Date Fitz Walters MD [address] [facility] [place] [address] PCP - General 09/08/02 Glove Tagger Relationship Specialty Start Date End Date Fitz Walters MD [address] [facility] [place] [address] PCP - General 09/08/02 Glove Tagger Relationship Specialty Start Date End Date Fitz Walters MD [address] [place] [address], [place] [address] PCP - General 09/08/02 Glove Tagger Relationship Specialty Start Date End Date Fitz Walters MD [address] [place] [address], [place] [address] PCP - General 09/08/02 Glove Tagger Relationship Specialty Start Date End Date Fitz Walters MD [facility] [place] [address] PCP - General 09/08/02 Glove Tagger Relationship Specialty Start Date End Date Fitz Walters MD [address] [place] [address] [place] [address] PCP - General 09/08/02 Glove Tagger Relationship Specialty Start Date End Date Fitz Walters MD [facility] [place] [address] PCP - General 09/08/02 Glove Tagger Relationship Specialty Start Date End Date Fitz Walters MD [address] [place] [address], [place] [address] PCP - General 09/08/02 Glove Tagger Relationship Specialty Start Date End Date Fitz Walters MD [address] [place] [address], [place] [address] PCP - General 09/08/02 Team Status: Active [...] Cantu MD Attending Provider, Referring Provider Active Glove Tagger Relationship Specialty Start Date End Date Fitz Walters MD [address] [place] [address] PCP - General 09/08/02 Team Status: Inactive Member Role Status Dates Dr. Fitz Walters MD Primary Care Provider, Refer ring Provider Active Dr. Liban Leiva MD Attending Provider Active Glove Tagger Relationship Specialty Start Date End Date Fitz Walters MD [address] [place] [address] PCP - General 09/08/02 Glove Tagger Relationship Specialty Start Date End Date Fitz Walters MD [address] [place] [address] PCP - General 09/08/02 Glove Tagger Relationship Specialty Start Date End Date Fitz Walters MD [address] [place] [address] PCP - General 09/08/02 Glove Tagger Relationship Specialty Start Date End Date Fitz Walters MD [address] [place] [address] PCP - General 09/08/02 Glove Tagger Relationship Specialty Start Date End Date Fitz Walters MD [address] [facility] [place] [address] PCP - General 09/08/02 Glove Tagger Relationship Specialty Start Date End Date Fitz Walters MD [address] [place] [address] PCP - General 09/08/02 Team Status: Inactive Member Role Status Dates Dr. Fitz Walters MD Primary Care Provider Active Dr. Laurence Hinds MD Attending Provider Active Glove Tagger Relationship Specialty Start Date End Date Fitz Walters MD [address] [place] [address] PCP - General 09/08/02 Glove Tagger Relationship Specialty Start Date End Date Fitz Walters MD [address] [place] [address] PCP - General 09/08/02 Glove Tagger Relationship Specialty Start Date End Date Fitz Walters MD [address] [place] [address] PCP - General 09/08/02 Glove Tagger Relationship Specialty Start Date End Date Fitz Walters MD [address] [facility] [place] [address] PCP - General 09/08/02 Sandra Sigala, CRIMINOLOGY TEACHER.BOBBIN SORTER [address] [facility] [place] [address] Icu Rn Internal Medicine 10/23/24 Glove Tagger Relationship Specialty Start Date End Date Fitz Walters MD [address] [facility] [place], [place] [address] PCP - General 09/08/02 Sandra Sigala, CRIMINOLOGY TEACHER.BOBBIN SORTER [address] [facility] [place], [place] [address] Icu Rn Internal Medicine 10/23/24 Glove Tagger Relationship Specialty Start Date End Date Fitz Walters MD [address] [facility] [place], [place] [address] PCP - General 09/08/02 Sandra Sigala, CRIMINOLOGY TEACHER.BOBBIN SORTER [address] [facility] [place], [place] [address] [facility] Internal Medicine 10/23/24 Team Status: Inactive Member Role Status Dates Dr. Fitz Walters MD Primary Care Provider Active Start: October 17, 2024 End: October 17, 2024 Dr. Laurence Hinds MD Attending Provider Active Start: October 17, 2024 End: October 17, 2024 Dr. Laurenec Hinds MD Referring Provider Active Start: October [...] January 19, 2025 End: January 19, 2025 Glove Tagger Relationship Specialty Start Date End Date Fitz Walters MD [address] [facility] [place], [place] [address] PCP - General 09/08/02 Sandra Sigala, CRIMINOLOGY TEACHER.BOBBIN SORTER [address] [facility] [place] [address] Icu Rn Internal Medicine 10/23/24 Team Status: Active Member [...] section and content) DATE CREATED AUTHOR 12/01/2024 [facility] DATE CREATED AUTHOR AUTHOR'S DEL RAMAN 04/21/2025 [facility] FOR RECORDS PERTAINING TO PATIENTS WHO ARE [...] BE BASED ON THE PRIMARY CLINICAL RECORDS. [facility]. provides no warranty or guarantee of the accuracy or completeness of information in this document.
[2025-05-11] MEDS: Pantoprazole Sodium 40 MG in 0.9% Normal Saline (100mL MB+) 100 ML 330 MG IV (00:49)
[2025-05-11] MEDS: Vibegron 75 MG TABLET PO ×2 (00:50→21:34)
[2025-05-11] MEDS: Ampicillin/Sulbactam 3 GM in 0.9% Normal Saline (100mL MB+) 100 ML IV ×4 (00:50→18:25)
[2025-05-11] MEDS: Atorvastatin Calcium 10 MG Tablet PO ×2 (00:50→21:34)
[2025-05-11] MEDS: Insulin Lispro 100 UNIT/ML INSULN.PEN SC ×3 (00:59→21:35)
[2025-05-11 01:12] LABS: Bedside Glucose 209 mg/dL (74-106)
[2025-05-11 06:23] VITALS: BP 125/77; PULSE 88; RESP 16; TEMP 36.2; O2SAT 94
[2025-05-11 06:48] LABS: Bedside Glucose 125 mg/dL (74-106)
[2025-05-11 06:48] LABS: Absolute Lymphocyte Count 1.12 X10^3/uL (0.83-4.51); Absolute Neutrophil Count 7.5 X10^3/uL (2.0-7.7); Basophil# 0.02 X10^3/uL; Basophil% 0.2 % (0-1); Eosinophil# 0.05 X10^3/uL; Eosinophils% 0.5 % (0-5); Hematocrit 34.4 % (37-47); Hemoglobin 10.9 g/dL (12.0-15.0); Lymphocyte # 1.12 X10^3/ul (0.83-4.51); Lymphocyte % 12.1 % (19-41); Mean Corp Hgb Conc 31.7 g/dL (32-36); Mean Corpuscular Hgb 31.2 pg (27.0-32.0); Mean Corpuscular Volume 98.6 fL (81-99); Mean Platelet Vol. 10.2 fl (6.2-12.0); Monocyte% 5.4 % (0-10); NRBC Flagged by Analyzer 0 % (0-5); Neutrophil % 81.3 % (47-70); Platelet Count 201 K/mm3 (150-450); RBC Distribution Width CV 13.9 % (11.6-14.6); RBC Distribution Width SD 48.8 fl (35.1-43.9); Red Blood Count 3.49 M/mm3 (4.2-5.4); White Blood Count 9.2 K/mm3 (4.4-11.0)
[2025-05-11 07:24] LABS: ALB/GLOB Ratio 1.2 RATIO (0.9-2.4); AST(SGOT) 18 U/L (<=31); Alanine Aminotransfer ALT/SGPT 13 U/L (<=34); Albumin, Serum 3.7 g/dL (3.4-4.8); Alkaline Phosphatase 75 U/L (35-104); Anion Gap 11 (5-15); BUN 15 mg/dL (4-19); BUN/Creat Ratio 20.9 RATIO (10-20); Calcium,Total 9.6 mg/dL (7.6-11.0); Carbon Dioxide 22.7 mmol/L (21.0-32.0); Chloride 101 mmol/L (98-108); Creatinine, Serum 0.71 mg/dL (0.70-1.20); EST Glomerular Filtration Rate 81 (>60); Globulin 3.1 g/dL (2.2-4.2); Glucose 134 mg/dL (70-99); Potassium 3.8 mmol/L (3.3-5.1); Protein, Total 6.8 g/dL (5.9-8.4); Sodium Level 135 mmol/L (133-145); Total Bilirubin 0.66 mg/dL (0.00-1.30)
[2025-05-11 08:44] VITALS: BP 146/59; PULSE 74; RESP 18; TEMP 37.1; O2SAT 97
[2025-05-11] MEDS: Ferrous Sulfate 325 MG Tablet PO (08:46)
[2025-05-11] MEDS: Losartan Potassium 25 MG Tablet PO (08:46)
[2025-05-11] MEDS: Folic Acid 1 MG Tablet PO (08:47)
[2025-05-11] MEDS: Enoxaparin 40 MG/0.4 ML Syringe SC (08:47)
[2025-05-11] MEDS: Menthol/Lanolin/Calamine/Znox 113 GM Tube 1 APPLIC TOPICAL ×2 (08:47→21:30)
[2025-05-11] MEDS: Nystatin Powder 15gm Bottle 1 APPLIC TOPICAL ×2 (08:47→21:32)
[2025-05-11] MEDS: Aspirin E.C. 81 MG Tablet PO (08:47)
--- NOTE | 2025-05-11 10:31 | CASEMGMT ---
KEREN BLANCA Assessment Face to Face with patient for initial transition planning/care coordination assessment. KEREN BLANCA introduced self and role at [facility], pt voices understanding. Pt is A&Ox4 and is resting comfortably in bed and is calm. Care providers, pharmacy, and demographics verified. Admitting dx: Infected Feline Bite, Intractable N/V LACE Strata: 1 PCP: Fitz Walters Specialists: Lizet (Rheumatology), Lonnie (Podiatry), data modeling specialist in [place] (Cannot recall name) Preferred Pharmacy: [facility] Insurance: [employer] Secure Prescription Benefit: Yes LNOK: Elzbieta (Daughter) Living Arrangements: Pt lives with her daughter and VIOLETA in a 2 story home with 2 steps to enter. Pt reports that her bedroom is located in the upper portion of the house and that there is a stair lift to access the upper level. ADLs/IADLs: Pt states that she is indep. Pt daughter and VIOLETA are available to support as needed Transportation: Daughter, VIOLETA DME: Stair lift, grab bars, shower chair, cane, fww HHC/SNF: Denies hx of Pt?s goal: Home Plan: Home with pt daughter and VIOLETA, anticipate no further needs at this time. Pt states that she feels safe returning home with her family @ the time of DC and denies the need for HH or OP Tx. Pt denies further concerns at this time. Report given to RUBINA VELIZ CM. Karla Carter RN, CM
[2025-05-11] MEDS: 0.9% Saline Lock 10 ML Syringe IV ×2 (11:41→23:59)
[2025-05-11 12:02] LABS: Bedside Glucose 157 mg/dL (74-106)
[2025-05-11 14:49] VITALS: BP 127/65; PULSE 79; RESP 18; TEMP 36.9; O2SAT 95
--- NOTE | 2025-05-11 15:13 | CHAPLAIN ---
Type of Pastoral Visit _x__ Initial Visit ___ Follow-up Visit ___ On-call Visit ___ General Patient Visit ___ Spiritual Assessment ___ Family Conference ___ Bereavement ___ Rapid Response ___ Code Blue ___ Other (describe below) Pastoral Care Referral From _x__ Patient ___ Family ___ Nurse ___ Physician ___ Head Mva Reactor Operator ___ Pipeline Controller ___ Other (describe below) Sacrament/Intervention _x__ Active listening ___ Anointing ___ Christian ___ Bereavement ___ Communion ___ Anahi exploration ___ _x__ Life review _x__ Prayer ___ Reconciliation ___ Sacrament of Sick ___ Supportive presence ___ Wedding ___ Other (describe below) Pastoral Comments patient is understanding and being patient at the admission to hospital; pt recognizes what happened with the cat; pt lives with other family members; pt speaks of her living [place] where horses are trained and boarded but also where she feeds many cats and has a special dog; pt is a member of a local baptism and welcomes prayer support
[2025-05-11 16:46] LABS: Bedside Glucose 116 mg/dL (74-106)
--- NOTE | 2025-05-11 18:14 | PCM.PN.HOSP ---
Reason for Visit Reason for Visit: Diagnoses Cellulitis, unspecified (05/10/25) Local infection of the skin and subcutaneous tissue, unspecified (05/10/25) Open bite, right lower leg, initial encounter (05/10/25) Bitten by cat, initial encounter (05/10/25) Subjective Subjective Patient was seen and examined today, her right leg has faint redness today and it is warm to the touch, patient does not appear to be in any distress. Objective Data Objective Data Vital Signs: Vital Signs Temp Pulse Resp BP Pulse Ox O2 Del Method 98.4 F 79 18 127/65 H 95 Room Air 05/11/25 14:49 05/11/25 14:49 05/11/25 14:49 05/11/25 14:49 05/11/25 14:49 05/11/25 14:49 Oxygen Delivery Method Room Air Weight: 65.317 kg Body Mass Index (BMI) 23.9 Intake & Output: Intake and Output for Last 24 Hours 05/09/25 05/10/25 05/11/25 23:59 23:59 23:59 Intake Total 50 / 50 901.67 / 901.67 Output Total 1000 / 1000 Balance 50 / 50 -98.33 / -98.33 Lab / Micro Data 05/11/25 05:29 05/11/25 05:29 Labs: Laboratory Results - last 24 hr 05/10/25 17:45: WBC 14.9 H, RBC 3.82 L, Hgb 12.1, Hct 37.4, MCV 97.9, MCH 31.7, MCHC 32.4, RDW Std Deviation 48.8 H, RDW Coeff of Swapnil 13.9, Plt Count 226, MPV 10.1, Immature Gran % (Auto) 0.600, Neut % (Auto) 88.8 H, Lymph % (Auto) 5.0 L, [place] % (Auto) 5.4, Eos % (Auto) 0.1, Baso % (Auto) 0.1, Absolute Neuts (auto) 13.2 H, Absolute Lymphs (auto) 0.74 L, Nucleated RBC % 0, Sodium 129 L, Potassium 4.2, Chloride 94 L, Carbon Dioxide 21.6, Anion Gap 14, BUN 20 H, Creatinine 0.89, Estim Creat Clear Calc 37.00 L, Est GFR (MDRD) Non-Af 62, BUN/Creatinine Ratio 22.7 H, Glucose 201 H, Calcium 10.0, Total Bilirubin 0.71, AST 19, ALT 14, Alkaline Phosphatase 74, C-React Prot Ext Range 163.00 H, Total Protein 7.5, Albumin 4.2, Globulin 3.3, Albumin/Globulin Ratio 1.3 05/10/25 18:20: Lactic Acid 1.9 05/10/25 19:25: Urine Color Straw 05/10/25 19:25: Urine Color Cancelled, Urine Clarity Cloudy 05/10/25 19:25: Urine Clarity Cancelled, Urine pH 6.5 05/10/25 19:25: Urine pH Cancelled, Ur Specific [place] 1.015 05/10/25 19:25: Ur Specific [place] Cancelled, U Specif Grav (Refrac) Cancelled, Urine Protein 30 H 05/10/25 19:25: Urine Protein Cancelled, Urine Glucose (UA) 50 H 05/10/25 19:25: Urine Glucose (UA) Cancelled, Urine Ketones 15 H 05/10/25 19:25: Urine Ketones Cancelled, Urine Occult Blood 150 H 05/10/25 19:25: Urine Occult Blood Cancelled, Urine Nitrite Negative 05/10/25 19:25: Urine Nitrite Cancelled, Urine Bilirubin Negative 05/10/25 19:25: Urine Bilirubin Cancelled, Urine Urobilinogen 1 H 05/10/25 19:25: Urine Urobilinogen Cancelled, Ur Leukocyte Esterase 500 H 05/10/25 19:25: Ur Leukocyte Esterase Cancelled, Urine RBC 0-5 SEEN 05/10/25 19:25: Urine RBC Cancelled, Urine WBC 25-50 SEEN 05/10/25 19:25: Urine WBC Cancelled, Ur Squamous Epith Cells 0-5 SEEN 05/10/25 19:25: Ur Squamous Epith Cells Cancelled, Ur Transition Epith Cell Cancelled, Ur Renal Epithelial Cell Cancelled, Calcium Oxalate Crystal Cancelled, Uric Acid Crystals Cancelled, Triple Phos Crystals Cancelled, Other Crystals Cancelled, Amorphous Sediment 1+ 05/10/25 19:25: Amorphous Sediment Cancelled, Urine Bacteria 1+ 05/10/25 19:25: Urine Bacteria Cancelled, Hyaline Casts Cancelled, Fine Granular Casts Cancelled, Coarse Granular Casts Cancelled, Waxy Casts Cancelled, RBC Casts Cancelled, WBC Casts Cancelled, Urine Mucus 0 SEEN 05/10/25 19:25: Urine Mucus Cancelled, Urine Trichomonas Cancelled, Urine Yeast Cancelled 05/11/25 00:54: POC Glucose 209 H 05/11/25 05:29: WBC 9.2, RBC 3.49 L, Hgb 10.9 L, Hct 34.4 L, MCV 98.6, MCH 31.2, MCHC 31.7 L, RDW Std Deviation 48.8 H, RDW Coeff of Swapnil 13.9, Plt Count 201, MPV 10.2, Immature Gran % (Auto) 0.500, Neut % (Auto) 81.3 H, Lymph % (Auto) 12.1 L, [place] % (Auto) 5.4, Eos % (Auto) 0.5, Baso % (Auto) 0.2, Absolute Neuts (auto) 7.5, Absolute Lymphs (auto) 1.12, Nucleated RBC % 0, Sodium 135, Potassium 3.8, Chloride 101, Carbon Dioxide 22.7, Anion Gap 11, BUN 15, Creatinine 0.71, Estim Creat Clear Calc 42.90 L, Est GFR (MDRD) Non-Af 81, BUN/Creatinine Ratio 20.9 H, Glucose 134 H, Calcium 9.6, Total Bilirubin 0.66, AST 18, ALT 13, Alkaline Phosphatase 75, Total Protein 6.8, Albumin 3.7, Globulin 3.1, Albumin/Globulin Ratio 1.2 05/11/25 06:21: POC Glucose 125 H 05/11/25 11:35: POC Glucose 157 H 05/11/25 16:27: POC Glucose 116 H Radiography Diagnostic Testing: Radiology Impression Chest X-Ray 05/10/25 18:45 IMPRESSION: No acute cardiopulmonary process. Reading Location: [facility] Rhythm Strip Rhythm Strip: Sinus Rhythm Rate: 86 Ectopy: None Physical Exam Const alert and no apparent distress General Appearance: cooperative, well kempt and well developed Orientation / Consciousness: awake, oriented to person and oriented to place HEENT normocephalic, head/scalp atraumatic and moist oral mucous membranes Eyes PERRL, EOMs intact bilaterally and conjunctivae normal Neck supple, no JVD, thyroid normal and no carotid bruits General: trachea midline Resp normal respiratory effort, no retractions, no use of accessory muscles and clear to auscultation bilaterally Auscultation: Negative for rales, rhonchi or wheezes Cardio regular rate, regular rhythm, S1 normal heart sound, S2 normal heart sound, no murmurs, no rub and no gallops GI normal to inspection, nondistended, normoactive bowel sounds, soft to palpation, non-tender and non-distended Extremity no clubbing, cyanosis or edema Skin Skin Narrative: There is redness noted over the patient's right leg in the area of the right knee and just below the right knee and above the right knee. This area is warm to the touch also Neuro CN's II-XII intact bilaterally, moves all extremities, no focal motor deficits and no sensory deficits noted Sensorium / Orientation: awake, alert, oriented to person and oriented to place Speech: speech normal Psych affect normal Assessment & Plan Assessment/Plan (1) Cat bite of right lower leg with infection: PLAN: Plan 1. Cellulitis of the right leg secondary to cat bite-this area appears improved over the appearance on admission according to what was written in the medical record. Continue Unasyn #2 nausea and vomiting-I suspect this may have been due to the Augmentin she was given for her cat bite infection, patient does not appear nauseous at this time, she is on an 1800-calorie ADA diet #3 chronic cognitive impairment-complicates care, management, recovery, and prognosis #4 type 2 diabetes-patient is on sliding scale insulin and fingerstick blood sugars. #5 hyponatremia-corrected at this time #6 essential hypertension-patient is on losartan Total clinical time spent by myself addressing the patient's medical issues, reviewing all of her data, and collaborating with the patient's care team: 35 minutes Charges/Coding Visit Charges Inpatient E&M: 25579 Subs Hosp L2
[2025-05-11 20:00] VITALS: BP 124/68; PULSE 89; RESP 16; TEMP 37.1; O2SAT 99
[2025-05-11 22:11] LABS: Bedside Glucose 153 mg/dL (74-106)
[2025-05-12] MEDS: Ampicillin/Sulbactam 3 GM in 0.9% Normal Saline (100mL MB+) 100 ML IV ×3 (00:05→12:05)
[2025-05-12] MEDS: Acetaminophen 325 MG Tablet 650 MG PO (01:57)
[2025-05-12] MEDS: 0.9% Saline Lock 10 ML Syringe IV ×3 (02:06→12:05)
[2025-05-12] MEDS: Ondansetron 4 MG/2 ML Vial IV (02:06)
[2025-05-12 02:38] VITALS: BP 135/80; PULSE 80; RESP 16; TEMP 37.1; O2SAT 95
[2025-05-12 02:52] VITALS: O2SAT 95
[2025-05-12 06:00] VITALS: BMI 24.0
[2025-05-12] MEDS: Insulin Lispro 100 UNIT/ML INSULN.PEN SC ×2 (06:26→11:59)
[2025-05-12 06:46] LABS: Bedside Glucose 157 mg/dL (74-106)
[2025-05-12 08:00] VITALS: BP 114/64; PULSE 85; RESP 16; TEMP 36.7; O2SAT 97
[2025-05-12 08:04] VITALS: O2SAT 93
[2025-05-12] MEDS: Losartan Potassium 25 MG Tablet PO (08:10)
[2025-05-12] MEDS: Folic Acid 1 MG Tablet PO (08:10)
[2025-05-12] MEDS: Ferrous Sulfate 325 MG Tablet PO (08:10)
[2025-05-12] MEDS: Enoxaparin 40 MG/0.4 ML Syringe SC (08:11)
[2025-05-12] MEDS: Aspirin E.C. 81 MG Tablet PO (08:11)
[2025-05-12] MEDS: Menthol/Lanolin/Calamine/Znox 113 GM Tube 1 APPLIC TOPICAL (08:12)
[2025-05-12] MEDS: Nystatin Powder 15gm Bottle 1 APPLIC TOPICAL (08:12)
[2025-05-12] MEDS: Senna/Docusate Sodium 1 Tablet 2 TABLET PO (08:17)
--- NOTE | 2025-05-12 10:32 | DCINST_ITS ---
Discharge Instructions Diet Discharge Diet: No restrictions DC O2, CPAP, BIPAP needs Home O2 Discharge instructions: No Dressing / Incision Discharge Activity: Return to Normal Activity Weight Bearing Status: Full weight bearing Follow Up Care Test Results: Test results from this visit will be discussed in further detail at your follow- up appointment, if applicable. Discharge Plan Admission Admit Date/Time: 05/10/25 19:18 Primary Reason for Your Visit: Cellulitis secondary to cat bite Attending Provider: Benny Junior Primary Care Provider: Fitz Walters Consulting Providers: Misty Blanco Discharge Orders/Prescriptions Prescriptions: New cefdinir 300 mg capsule 300 mg PO BID Qty: 10 0RF metronidazole 250 mg tablet 250 mg PO TID Qty: 15 0RF Continued aspirin [Adult Low Dose Aspirin] 81 mg tablet,delayed release (DR/EC) 81 mg PO DAILY atorvastatin 10 mg tablet 10 mg PO DAILY metformin 500 mg tablet 500 mg PO BID ferrous sulfate 27 mg iron tablet 65 mg PO DAILY losartan 25 mg tablet 25 mg PO DAILY methotrexate sodium 2.5 mg tablet 15 mg PO QWEEK Rx Instructions: PT TAKES ON WEDNESDAYS folic acid 1 mg tablet 2 mg PO DAILY mirabegron [Myrbetriq] 25 mg tablet extended release 24 hr 25 mg PO QHS Qty: 30 6RF dorzolamide-timolol 22.3-6.8 mg/mL drops 1 drp ophthalmic (eye) BID [place]lat[place] 0.02-0.005 % drops 1 drp ophthalmic (eye) QHS cyanocobalamin (vitamin B-12) 1,000 mcg tablet 1,000 mcg PO DAILY Qty: 30 10RF Discontinued amoxicillin-pot clavulanate 875-125 mg tablet 1 tab PO BID Patient Comments: PT TOOK TODAY, BUT THIS MADE HER SICK. Referrals / Follow Up: Fitz Walters MD [Primary Care Provider] - In 1 Week Disposition Disposition (needs filled in before D/C Order can be placed): Home, Self Care
--- NOTE | 2025-05-12 10:36 | DS.PCM_ITS ---
Providers Date of Admission: 05/10/25 Date of Discharge: 05/12/25 Primary Care Physician: Dr. Fitz Walters MD Reason For Visit: INFECTED FELINE BITE, INTRACTABLE N/V Diagnosis Discharge Diagnosis (1) Cat bite of right lower leg with infection: Status: Acute Code(s): S81.851A - Open bite, right lower leg, initial encounter; L08.9 - Local infection of the skin and subcutaneous tissue, unspecified; W55.01XA - Bitten by cat, initial encounter Plan 1. Cellulitis of the right leg secondary to cat bite-this area appears improved over the appearance on admission according to what was written in the medical record. Continue Unasyn #2 nausea and vomiting-I suspect this may have been due to the Augmentin she was given for her cat bite infection, patient does not appear nauseous at this time, she is on an 1800-calorie ADA diet #3 chronic cognitive impairment-complicates care, management, recovery, and prognosis #4 type 2 diabetes-patient is on sliding scale insulin and fingerstick blood sugars. #5 hyponatremia-corrected at this time #6 essential hypertension-patient is on losartan Total clinical time spent by myself addressing the patient's medical issues, reviewing all of her data, and collaborating with the patient's care team: 35 minutes Medications at Discharge Home Medications aspirin 81 mg tablet,delayed release (Adult Low Dose Aspirin) 81 mg PO DAILY 06/01/22 atorvastatin 10 mg tablet 10 mg PO DAILY 06/01/22 metformin 500 mg tablet 500 mg PO BID 06/01/22 ferrous sulfate 27 mg iron tablet 65 mg PO DAILY 10/29/22 folic acid 1 mg tablet 2 mg PO DAILY 10/29/22 losartan 25 mg tablet 25 mg PO DAILY 10/29/22 methotrexate sodium 2.5 mg tablet 15 mg PO QWEEK 10/29/22 cyanocobalamin (vitamin B-12) 1,000 mcg tablet 1,000 mcg PO DAILY #30 tabs 06/08/24 mirabegron 25 mg tablet,extended release 24 hr (Myrbetriq) 25 mg PO QHS #30 tabs 04/17/25 dorzolamide 22.3 mg-timolol 6.8 mg/mL eye drops 1 drp ophthalmic (eye) BID 05/10/25 netarsudil 0.02 %-latanoprost 0.005 % eye drops ([facility]) 1 drp ophthalmic (eye) QHS 05/10/25 cefdinir 300 mg capsule 300 mg PO BID #10 caps 05/12/25 metronidazole 250 mg tablet 250 mg PO TID #15 tabs 05/12/25 Hospital Course Operations None Procedures None Summary of Care Provided Minutes Spent on Discharge: 32 Hospital Course: This 89-year-old white female was seen in the emergency room at [facility] with complaints of right leg redness from a cat bite to the area which occurred the day before. Patient also complained of nausea, vomiting, and weakness. The family took the patient to urgent care the day before and she was started on Augmentin, she did take 2 doses but then had vomiting. Examination of the patient's right calf revealed a reddened area which was warm to the touch, patient's white blood cell count was 14.9, sodium was 129, the remainder of the chemistry profile was unremarkable. Patient was admitted to [place] [id number] for cellulitis due to a cat bite on her right calf, the redness of the area improved during the patient's hospitalization. On 05/12/2025, patient was seen and examined:alert and no apparent distress General Appearance: cooperative, well kempt and well developed Orientation / Consciousness: awake, oriented to person and oriented to place HEENT normocephalic, head/scalp atraumatic and moist oral mucous membranes Eyes PERRL, EOMs intact bilaterally and conjunctivae normal Neck supple, no JVD, thyroid normal and no carotid bruits General: trachea midline Resp normal respiratory effort, no retractions, no use of accessory muscles and clear to auscultation bilaterally Auscultation: Negative for rales, rhonchi or wheezes Cardio regular rate, regular rhythm, S1 normal heart sound, S2 normal heart sound, no murmurs, no rub and no gallops GI normal to inspection, nondistended, normoactive bowel sounds, soft to palpation, non-tender and non-distended Extremity no clubbing, cyanosis or edema Skin Skin Narrative: There is redness noted over the patient's right leg in the area of the right knee and just below the right knee and above the right knee. This area is warm to the touch also Neuro CN's II-XII intact bilaterally, moves all extremities, no focal motor deficits and no sensory deficits noted Sensorium / Orientation: awake, alert, oriented to person and oriented to place Speech: speech normal Psych affect normal On 05/12/2025, patient was seen and examined and felt to be in stable condition for discharge home. 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 05/10/25 19:10 Blood Culture (Wb) - Left Forearm Blood Culture - Preliminary No growth in 48 hours. D/C Instructions Discharge Diet: No restrictions Weight Bearing Status: Full weight bearing DC O2, CPAP, BIPAP Needs Home O2 Discharge instructions: No Meaningful Use Info Meaningful Use Meaningful Use Diagnoses (Choose all that apply): None applicable Ischemic Stroke Statin Dosing Therapy Reference: STATIN DOSE THERAPY REFERENCE: * Patients > 75 years receive moderate or high dose statin therapy. * Patients 75 years or YOUNGER should receive HIGH intensity statin dose unless contraindicated. You will be required to document reason for non-treatment if statin daily dose does not meet guidelines. HIGH DOSE STATIN THERAPY DAILY Atorvastatin > than or = to 40 mg Rosuvastatin > than or = to 20 mg Amlodipine + Atorvastatin > than or = to 2.5/40 mg Ezetimibe + Simvastatin 10/80 mg Simvastatin 80mg Discharge Plan Admission Admit Date/Time: 05/10/25 19:18 Primary Reason for Your Visit: Cellulitis secondary to cat bite Attending Provider: Benny Junior Primary Care Provider: Fitz Walters Consulting Providers: Misty Blanco Discharge Orders/Prescriptions Prescriptions: New cefdinir 300 mg capsule 300 mg PO BID Qty: 10 0RF metronidazole 250 mg tablet 250 mg PO TID Qty: 15 0RF Continued aspirin [Adult Low Dose Aspirin] 81 mg tablet,delayed release (DR/EC) 81 mg PO DAILY atorvastatin 10 mg tablet 10 mg PO DAILY metformin 500 mg tablet 500 mg PO BID ferrous sulfate 27 mg iron tablet 65 mg PO DAILY losartan 25 mg tablet 25 mg PO DAILY methotrexate sodium 2.5 mg tablet 15 mg PO QWEEK Rx Instructions: PT TAKES ON WEDNESDAYS folic acid 1 mg tablet 2 mg PO DAILY mirabegron [Myrbetriq] 25 mg tablet extended release 24 hr 25 mg PO QHS Qty: 30 6RF dorzolamide-timolol 22.3-6.8 mg/mL drops 1 drp ophthalmic (eye) BID [place]lat[place] 0.02-0.005 % drops 1 drp ophthalmic (eye) QHS cyanocobalamin (vitamin B-12) 1,000 mcg tablet 1,000 mcg PO DAILY Qty: 30 10RF Discontinued amoxicillin-pot clavulanate 875-125 mg tablet 1 tab PO BID Patient Comments: PT TOOK TODAY, BUT THIS MADE HER SICK. Referrals / Follow Up: Fitz Walters MD [Primary Care Provider] - In 1 Week Disposition Disposition (needs filled in before D/C Order can be placed): Home, Self Care Charges/Coding Visit Charges Inpatient E&M: 57721 Disch Hosp >30min
[2025-05-12 14:00] VITALS: BP 129/57; PULSE 76; RESP 14; TEMP 37; O2SAT 99
[2025-05-12 15:28] LABS: Bedside Glucose 171 mg/dL (74-106)
[2025-05-12 17:01] LABS: Bedside Glucose 135 mg/dL (74-106)
== END 2025-05-12 18:03 | disposition home or self-care (01) | DRG 603 ==
LOC: ED 19:25 → MS3 22:23
PROVIDERS: Admitting Provider Family Medicine; Emergency Provider Emergency Medicine; PCP Internal Medicine; Referring Provider Emergency Medicine; Visit Provider Internal Medicine
DX: L03.115 Cellulitis of right lower limb (principal); E87.1 Hypo-osmolality and hyponatremia; E11.22 Type 2 diabetes mellitus with diabetic chronic kidney disease; D50.9 Iron deficiency anemia, unspecified; S81.851A Open bite, right lower leg, initial encounter; E11.40 Type 2 diabetes mellitus with diabetic neuropathy, unspecified; Z66 Do not resuscitate; N18.30 Chronic kidney disease, stage 3 unspecified; M06.9 Rheumatoid arthritis, unspecified; I12.9 Hypertensive chronic kidney disease with stage 1 through stage 4 chronic kidney disease, or unspecified chronic kidney disease; E78.5 Hyperlipidemia, unspecified; R53.81 Other malaise; H40.9 Unspecified glaucoma; Z79.82 Long term (current) use of aspirin; Z79.899 Other long term (current) drug therapy; Z79.84 Long term (current) use of oral hypoglycemic drugs; Z87.891 Personal history of nicotine dependence; W55.01XA Bitten by cat, initial encounter
CPT/HCPCS: 36415; 71046; 80053; 81001; 82962; 83605; 85025; 86140; 87040; 87086; 87088; 93005; 94668; 97166; 99285; A4216; J0295; J2405

== ENCOUNTER → 2025-07-03 | Outpatient (CLI) | payer MEDICARE, SELFPAY ==
[2025-07-03 15:30] LABS: AST(SGOT) 17 U/L (<=31); Alanine Aminotransfer ALT/SGPT 11 U/L (<=34); Albumin, Serum 4.1 g/dL (3.4-4.8); Alkaline Phosphatase 76 U/L (35-104); Anion Gap 12 (5-15); BUN 21 mg/dL (4-19); BUN/Creat Ratio 30.4 RATIO (10-20); Calcium,Total 10.1 mg/dL (7.6-11.0); Carbon Dioxide 20.6 mmol/L (21.0-32.0); Chloride 98 mmol/L (98-108); Globulin 2.9 g/dL (2.2-4.2); Glucose 110 mg/dL (70-99); Potassium 4.5 mmol/L (3.3-5.1)
[2025-07-03 15:31] LABS: Hematocrit 35.0 % (37-47); Hemoglobin 11.3 g/dL (12.0-15.0); Immature Granulocytes Count 0.020 X10^3/uL (0.0-0.0); Mean Corp Hgb Conc 32.3 g/dL (32-36); Mean Corpuscular Volume 98.3 fL (81-99); Mean Platelet Vol. 10.6 fl (6.2-12.0); NRBC Flagged by Analyzer 0 % (0-5); Platelet Count 222 K/mm3 (150-450); RBC Distribution Width CV 13.2 % (11.6-14.6); RBC Distribution Width SD 47.0 fl (35.1-43.9); Red Blood Count 3.56 M/mm3 (4.2-5.4); White Blood Count 7.4 K/mm3 (4.4-11.0)
== END | disposition home or self-care (01) ==
LOC: MTLAB 12:35
PROVIDERS: PCP Internal Medicine; Referring Provider Internal Medicine Rheumatology; Visit Provider Internal Medicine Rheumatology
DX: L40.59 Other psoriatic arthropathy (principal); L40.8 Other psoriasis; M19.041 Primary osteoarthritis, right hand; M17.0 Bilateral primary osteoarthritis of knee; Z79.899 Other long term (current) drug therapy
CPT/HCPCS: 36415; 80053; 85025

== ENCOUNTER 2025-09-15 09:17 | Emergency (ER) | payer MEDICARE, SELFPAY ==
[2025-09-15 09:17] VITALS: BP 106/62; RESP 20; TEMP 36.5
[2025-09-15 09:19] VITALS: BMI 22.1
--- NOTE | 2025-09-15 09:41 | EX.ED.DYSGE1 ---
HPI History of Present Illness Chief Complaint: Nosebleed Narrative Narrative: Patient is a 89-year-old female presents to the emergency department for an episode of epistaxis. Patient has a past medical history of fatigue, issues with mobility, polyneuropathy, anemia. Patient states she woke up this morning and around 7 AM she started to have bleeding out of her left naris. She is on baby aspirin daily, no oral anticoagulation. Patient states that she does not get frequent nosebleeds. Daughter used Afrin in her nares to try to help stop the bleeding. Denies any lightheadedness, dizziness, shortness of breath. On arrival here patient states that the nosebleed has stopped. [facility] Medical History Campylobacter gastroenteritis Gastritis Enteritis Colitis Hypomagnesemia Acute metabolic encephalopathy Fever Dehydration Hyponatremia Nausea and vomiting Mild cognitive impairment Acute hyponatremia Cellulitis Cat bite of right lower leg with infection Rheumatoid arthritis Former tobacco use HTN (hypertension) HLD (hyperlipidemia) Irritable bowel syndrome (IBS) Hives High triglycerides Migraines Glaucoma Diabetes mellitus Cataracts, bilateral Arthritis Home Medications ?Medication ?Instructions ?Recorded ?Last Taken ?Type aspirin 81 mg tablet,delayed 81 mg PO DAILY heart health 06/01/22 05/10/25 History release (Adult Low Dose Aspirin) atorvastatin 10 mg tablet 10 mg PO DAILY cholesterol 06/01/22 05/10/25 History metformin 500 mg tablet 500 mg PO BID diabetes 06/01/22 05/10/25 History ferrous sulfate 27 mg iron tablet 65 mg PO DAILY supplement 10/29/22 05/10/25 History folic acid 1 mg tablet 2 mg PO DAILY supplement 10/29/22 05/10/25 History losartan 25 mg tablet 25 mg PO DAILY blood pressure 10/29/22 05/10/25 History methotrexate sodium 2.5 mg tablet 15 mg PO QWEEK 10/29/22 05/09/25 History mirabegron 25 mg tablet,extended 25 mg PO QHS bladder #30 tabs 04/17/25 05/09/25 Rx release 24 hr (Myrbetriq) dorzolamide 22.3 mg-timolol 6.8 1 drp ophthalmic (eye) BID eye 05/10/25 05/10/25 History mg/mL eye drops health netarsudil 0.02 %-latanoprost 1 drp ophthalmic (eye) Q eye 05/10/25 05/09/25 History 0.005 % eye drops ([facility]) health cyanocobalamin (vitamin B-12) 1,000 mcg PO DAILY vitamin #30 tabs 07/09/25 Unknown Rx 1,000 mcg tablet pantoprazole 40 mg tablet,delayed 40 mg PO DAILY #30 tabs 07/18/25 Unknown Rx release (Protonix) sodium chloride 1,000 mg soluble 1,000 mg PO TID #90 tabs 07/18/25 Unknown Rx tablet Allergy/AdvReac Type Severity Reaction Status Date / Time Sulfa (Sulfonamide AdvReac Intermediate Hives Verified 09/15/25 09:19 Antibiotics) Family History Father Gallstones BPH (benign prostatic hyperplasia) Mother Alzheimer dementia Surgical History History of bilateral tubal ligation History of bladder repair surgery Social History household members: family Smoking Status: Former smoker how long ago did patient quit smoking: Smoked 40 years, started 19 until quit, ~ 1 ppd. alcohol intake: never substance use type: does not use caffeine: Yes Type: coffee Number of servings: 1 what type of physical activity do you participate in: none rancho/baptist: Zoroastrianism seatbelt use: always ROS ROS ED ROS Narrative see HPI EXAM Physical Exam Narrative Exam Narrative: Vital signs: Reviewed General: Alert and oriented x 3. No acute distress. Hard of hearing. HEENT: Head is normocephalic and atraumatic, sinuses nontender, pupils equal round and reactive. Nares are patent. No septal hematoma. No active bleeding from nares. Oropharynx and throat exams normal. No blood in posterior oropharynx noted. Neck: Supple without lymphadenopathy nontender Cardiovascular: Regular rate and rhythm, no murmurs. No rubs or gallops. Normal S1 and S2 Respiratory: Clear to auscultation bilaterally. No wheezes, rales, rhonchi Abdominal: Soft and nontender. Normal bowel sounds. No guarding or rebound. Nonsurgical abdomen Extremities: No tenderness. No bruising. Normal range of motion. Normal sensation. Skin: No rash or redness. The rest of the physical exam is unremarkable Const Vital Signs: 09/15/25 09:17 Temperature 97.7 F L Temperature Source Oral Respiratory Rate 20 H Blood Pressure 106/62 Blood Pressure Mean 76 Oxygen Delivery Method Room Air MDM MDM MDM Narrative Medical decision making narrative: Patient is a 89-year-old female presenting to the emergency department for an episode of epistaxis. Patient was seen and examined. Vitals are stable. Patient resting in bed comfortably no acute distress. She has no active bleeding on exam. No bleeding from the anterior nares. No blood in the posterior oropharynx. No blood on tissue that was inserted in the left naris. Patient and daughter at bedside were educated on using a humidifier at home in her bedroom or applying Vaseline to her nares to help with moisture during the cold weather. Was also instructed to use Afrin and provided a nose clip if she develops another nosebleed at home. They were instructed to try these measures at home first if she develops another nosebleed and to return to the emergency department if it is unable to be stopped with these measures. Patient discharged from the Emergency Department. I do not feel that the patient's evaluation reveals any acute reason for admission at this time. I instructed them to either follow-up with their primary care physician or promptly return to the Emergency Department for reevaluation should symptoms worsen or new symptoms develop. I explained what symptoms would indicate the need to return to the emergency department. Shared decision making was used. The patient voiced understanding of the treatment plan and is agreeable with it. Clinical impression Epistaxis History & Record Review Discussion w/independent historian: Family Discharge Plan Triage Chief Complaint: Nosebleed ED Provider: Jessica Maharaj Dx/Rx/DC Orders Clinical Impression: Epistaxis Instructions: ED Epistaxis (Adult) Prescriptions: No Action aspirin [Adult Low Dose Aspirin] 81 mg tablet,delayed release (DR/EC) 81 mg PO DAILY atorvastatin 10 mg tablet 10 mg PO DAILY metformin 500 mg tablet 500 mg PO BID ferrous sulfate 27 mg iron tablet 65 mg PO DAILY losartan 25 mg tablet 25 mg PO DAILY methotrexate sodium 2.5 mg tablet 15 mg PO QWEEK Rx Instructions: PT TAKES ON WEDNESDAYS folic acid 1 mg tablet 2 mg PO DAILY mirabegron [Myrbetriq] 25 mg tablet extended release 24 hr 25 mg PO QHS Qty: 30 6RF sodium chloride 1,000 mg Tablet,Soluble 1,000 mg PO TID Qty: 90 0RF pantoprazole [Protonix] 40 mg tablet,delayed release (DR/EC) 40 mg PO DAILY Qty: 30 0RF dorzolamide-timolol 22.3-6.8 mg/mL drops 1 drp ophthalmic (eye) BID Rocklatan 0.02-0.005 % drops 1 drp ophthalmic (eye) QHS cyanocobalamin (vitamin B-12) 1,000 mcg tablet 1,000 mcg PO DAILY Qty: 30 10RF Primary Care Provider: Fitz Walters Referrals: Fitz Walters MD [Primary Care Provider, Internal Medicine] - As soon as possible Activity Restrictions/Additional Instructions: If your nosebleed reoccurs try using 2 squirts of Afrin in your nose and placing a nose clip on the bridge of the nose as discussed. If this does not stop your nosebleed after 20 minutes you need to return to the emergency department immediately. You can try a humidifier for your bedroom at night and try putting Vaseline in the very outer mucosa of your nose to help protect it during the dry cold weather. Your evaluation in the Emergency Department did not reveal any acute reason for admission. However, I want to emphasize that you may be early in the course of a disease process or illness even if it is not present. For this reason you should follow-up within 24 hours for reevaluation with either your primary care physician or if necessary back here in the Emergency Department. You should return to the Emergency Department immediately if your symptoms worsen or new symptoms develop. Print Language: Brazilian Disposition Disposition: Home, Self Care
[2025-09-15 09:50] VITALS: BP 102/71; PULSE 98; RESP 17; TEMP 36.3; O2SAT 92
== END 2025-09-15 09:59 | disposition home or self-care (01) ==
LOC: ED 09:44
PROVIDERS: Emergency Provider Student in an Organized Health Care Education/Training Program; PCP Internal Medicine; Visit Provider Student in an Organized Health Care Education/Training Program
DX: R04.0 Epistaxis (principal); E11.42 Type 2 diabetes mellitus with diabetic polyneuropathy; I10 Essential (primary) hypertension; E78.5 Hyperlipidemia, unspecified; Z79.82 Long term (current) use of aspirin; Z79.84 Long term (current) use of oral hypoglycemic drugs; Z79.899 Other long term (current) drug therapy; Z87.891 Personal history of nicotine dependence
CPT/HCPCS: 99282

== ENCOUNTER 2025-09-17 10:57 | Inpatient (IN) | payer MEDICARE, SELFPAY ==
[2025-09-17] VITALS (22 sets, daily range): BP systolic 99–151; BP diastolic 45–109; PULSE 62–96; RESP 18–24; TEMP 36.1–36.9; O2SAT 85–100; BMI 23.1; BMI 22.6
--- NOTE | 2025-09-17 12:03 | EKG12_ITS ---
Test Reason : SOB
--- NOTE | 2025-09-17 12:03 | RAD_ITS ---
PROCEDURE: RAD/Chest 1 View (Portable)
--- NOTE | 2025-09-17 12:05 | ED.VIS.DYS ---
HPI History of Present Illness Chief Complaint: Shortness of Breath Informant: patient and spouse/S.O. Narrative Narrative: 89-year-old female presenting to the emergency room with chief complaint of dyspnea. Patient states she was seen on Wednesday for epistaxis that had resolved. Family states that she had bled heavily for about 3 hours. Has not had any bleeding since. Patient however has developed dyspnea with exertion. Family states she has a history of anemia. They wonder if she is anemic now. No significant cough or leg swelling. No chest pain. No reported fevers. [facility] Medical History Campylobacter gastroenteritis Gastritis Enteritis Colitis Hypomagnesemia Acute metabolic encephalopathy Fever Dehydration Hyponatremia Nausea and vomiting Mild cognitive impairment Acute hyponatremia Cellulitis Cat bite of right lower leg with infection Rheumatoid arthritis Former tobacco use HTN (hypertension) HLD (hyperlipidemia) Irritable bowel syndrome (IBS) Hives High triglycerides Migraines Glaucoma Diabetes mellitus Cataracts, bilateral Arthritis Home Medications ?Medication ?Instructions ?Recorded ?Last Taken ?Type aspirin 81 mg tablet,delayed 81 mg PO DAILY heart health 06/01/22 05/10/25 History release (Adult Low Dose Aspirin) atorvastatin 10 mg tablet 10 mg PO DAILY cholesterol 06/01/22 05/10/25 History metformin 500 mg tablet 500 mg PO BID diabetes 06/01/22 05/10/25 History ferrous sulfate 27 mg iron tablet 65 mg PO DAILY supplement 10/29/22 05/10/25 History folic acid 1 mg tablet 2 mg PO DAILY supplement 10/29/22 05/10/25 History losartan 25 mg tablet 25 mg PO DAILY blood pressure 10/29/22 05/10/25 History methotrexate sodium 2.5 mg tablet 15 mg PO QWEEK 10/29/22 05/09/25 History mirabegron 25 mg tablet,extended 25 mg PO QHS bladder #30 tabs 04/17/25 05/09/25 Rx release 24 hr (Myrbetriq) dorzolamide 22.3 mg-timolol 6.8 1 drp ophthalmic (eye) BID eye 05/10/25 05/10/25 History mg/mL eye drops health netarsudil 0.02 %-latanoprost 1 drp ophthalmic (eye) QHS eye 05/10/25 05/09/25 History 0.005 % eye drops (RocklatanVitalTrax cyanocobalamin (vitamin B-12) 1,000 mcg PO DAILY vitamin #30 tabs 07/09/25 Unknown Rx 1,000 mcg tablet pantoprazole 40 mg tablet,delayed 40 mg PO DAILY #30 tabs 07/18/25 Unknown Rx release (Protonix) sodium chloride 1,000 mg soluble 1,000 mg PO TID #90 tabs 07/18/25 Unknown Rx tablet Allergy/AdvReac Type Severity Reaction Status Date / Time Sulfa (Sulfonamide AdvReac Intermediate Hives Verified 09/17/25 10:58 Antibiotics) Family History Father Gallstones BPH (benign prostatic hyperplasia) Mother Alzheimer dementia Surgical History History of bilateral tubal ligation History of bladder repair surgery Social History household members: family Smoking Status: Former smoker how long ago did patient quit smoking: Smoked 40 years, started 19 until quit, ~ 1 ppd. alcohol intake: never substance use type: does not use caffeine: Yes Type: coffee Number of servings: 1 what type of physical activity do you participate in: none rancho/zoroastrian: Yazidism seatbelt use: always ROS ROS ED Constitutional Constitutional ED: Denies chills, fever(s) or weight loss Eyes Eyes: Denies change in vision or diplopia ENT ENT ED: Reports other Details: Epistaxis ; Denies ear pain, rhinorrhea or sore throat Cardiovascular Cardiovascular: Denies chest pain, orthopnea, palpitations or racing heartbeat Respiratory/Chest Respiratory/Chest: Reports dyspnea on exertion; Denies cough, dyspnea or orthopnea Gastrointestinal Gastrointestinal: Denies abdominal pain, diarrhea, nausea or vomiting Genitourinary Genitourinary ED: Denies dysuria, hematuria or urinary frequency Musculoskeletal Musculoskeletal: Denies arthralgias or myalgias Integumentary Denies abscess or rash Neurologic Neurologic: Denies headache(s) or weakness Psychiatric Psychiatric: Denies anxiety, depression, suicidal ideation or suicidal thoughts Endocrine Endocrinology: Denies polydipsia, polyphagia or polyuria Allergic/Immunologic Allergic/Immunologic ED: Denies mouth swelling, tongue swelling or urticaria EXAM Physical Exam Const Vital Signs: 09/17/25 10:58 09/17/25 12:53 09/17/25 12:56 Temperature 97.8 F Temperature Source Oral Pulse Rate 62 87 Respiratory Rate 20 H 20 H Respiratory Effort Short of Breath Blood Pressure 113/60 114/55 L Blood Pressure Mean 77 74 Pulse Ox 85 96 Oxygen Delivery Method Room Air Nasal Cannula Nasal Cannula Oxygen Flow Rate (L/min) 2 2 Positive well nourished and well developed General Appearance ED: well developed HEENT Reports normocephalic, head/scalp atraumatic and moist mucous membranes Eyes PERRL and EOMs intact bilaterally General Eye ED: Yes pale conjunctiva Neck no lymphadenopathy, supple and no JVD Resp normal respiratory effort and clear to auscultation bilaterally Cardio regular rate, regular rhythm and no murmurs GI normal to inspection, nondistended, normoactive bowel sounds and non-tender Palpation: soft Back/Spine no CVA tenderness and normal ROM Extremity normal to inspection General Extremety ED: Negative for edema General Extremity: Negative for edema Neuro oriented x3 and CN's II-XII intact bilaterally Sensorium / Orientation: alert Motor Exam: strength 5/5 throughout Psych mental status grossly normal Mood & Affect: Negative for depressed or tearful Skin no rashes or lesions noted and no wounds MDM MDM MDM Narrative Medical decision making narrative: Differential diagnosis includes anemia requiring transfusion acute blood loss anemia dehydration acute kidney injury pleural effusions CHF pneumonia bronchospasm cardiac dysrhythmia EKG on the monitor appears regular this could be sinus with frequent PACs. She is hemodynamically stable. CBC reveals a pancytopenia with a white count of 2.1 hemoglobin of 4.7 and platelet count of 7. BMP shows a glucose of 108 troponin 13. Patient was typed and crossed for 3 units. We will plan on hospitalization. History & Record Review Discussion w/independent historian: Patient and Family Additional record(s) reviewed:: Prior ED visit and Prior labs Lab Data Attestation: I reviewed the patient's lab results. Labs: Laboratory Results - last 24 hr 09/17/25 12:01 WBC 2.1 L RBC 1.56 L Hgb 4.7 L* Hct 14.5 L MCV 92.9 MCH 30.1 MCHC 32.4 RDW Std Deviation 44.7 H RDW Coeff of Swapnil 13.2 Plt Count 7 L* MPV 11.9 Immature Gran % (Auto) 1.400 H Neut % (Auto) 51.4 Lymph % (Auto) 36.4 [place] % (Auto) 10.3 H Eos % (Auto) 0.0 Baso % (Auto) 0.5 Absolute Neuts (auto) 1.1 L Absolute Lymphs (auto) 0.78 L Nucleated RBC % 0 Differential Comment COMMENT Platelet Estimate MKD DEC Sodium 133 Potassium 4.8 Chloride 102 Carbon Dioxide 21.2 Anion Gap 10 BUN 25 H Creatinine 0.72 Estim Creat Clear Calc 44.63 L Est GFR (MDRD) Non-Af 79 BUN/Creatinine Ratio 34.0 H Glucose 108 H Calcium 9.7 Troponin T High Sens 13 D EKG Initial EKG: Attestation: I personally reviewed and interpreted this EKG as follows: Comments: Possible A-fib versus sinus with frequent PACs at a rate of 80 bpm Management Discussion w/another healthcare provider: Hospitalist Discharge Plan Dx/Rx/DC Orders Clinical Impression: Pancytopenia, Acute dyspnea Disposition Disposition: Acute Care [facility]
[2025-09-17 12:12] LABS: Hematocrit 14.5 % (37-47); Immature Granulocytes Count 0.030 X10^3/uL (0.0-0.0); Mean Corp Hgb Conc 32.4 g/dL (32-36); Mean Corpuscular Volume 92.9 fL (81-99); Mean Platelet Vol. 11.9 fl (6.2-12.0); NRBC Flagged by Analyzer 0 % (0-5); POSITIVE COUNT YES; RBC Distribution Width CV 13.2 % (11.6-14.6); RBC Distribution Width SD 44.7 fl (35.1-43.9); Red Blood Count 1.56 M/mm3 (4.2-5.4); White Blood Count 2.1 K/mm3 (4.4-11.0)
[2025-09-17 12:23] LABS: Differential Indicated SCAN CRITERIA MET; Hemoglobin 4.7 g/dL (12.0-15.0); Platelet Count 7 K/mm3 (150-450)
--- NOTE | 2025-09-17 12:23 | ED.RN ---
Critical hgb of 4.7 [address] platelets of 7[address] Awan notified.
[2025-09-17 12:47] LABS: Anion Gap 10 (5-15); BUN 25 mg/dL (4-19); BUN/Creat Ratio 34.0 RATIO (10-20); Calcium,Total 9.7 mg/dL (7.6-11.0); Carbon Dioxide 21.2 mmol/L (21.0-32.0); Chloride 102 mmol/L (98-108); Estimated Creatinine Clearance 44.63 ml/min (50-250); Glucose 108 mg/dL (70-99); Potassium 4.8 mmol/L (3.3-5.1); Troponin T High Sensitivity 13 ng/L (<=14)
--- NOTE | 2025-09-17 13:32 | PCM.HP.STD ---
[facility] - General General Date of Service: 09/17/25 Chief Complaint: weakness. [facility] Narrative YANN BELTRAN, is a 89 F who presents with weakness. Noted by family to be very pale. Was seen here on the first for epistaxis and that resolved spontaneously and was sent home. Presented here due to weakness and it was noted that her white count was 2.1, hemoglobin 4.7 and platelets 7000, and on July 18 (last time we had labs in our system on (, white count was 6.4, hemoglobin 10 and platelets 183,000. Other than that. Epistaxis, patient's had no further bleeding. Patient does kind of bounced off walters when she walks and daughters noted some bruising on her arms. Patient was ordered 3 units of packed red blood cells and the hospital service was contacted for admission. [ ] [facility] Medical History Campylobacter gastroenteritis Gastritis Enteritis Colitis Hypomagnesemia Acute metabolic encephalopathy Fever Dehydration Hyponatremia Nausea and vomiting Mild cognitive impairment Acute hyponatremia Cellulitis Cat bite of right lower leg with infection Rheumatoid arthritis Former tobacco use HTN (hypertension) HLD (hyperlipidemia) Irritable bowel syndrome (IBS) Hives High triglycerides Migraines Glaucoma Diabetes mellitus Cataracts, bilateral Arthritis Home Medications ?Medication ?Instructions ?Recorded ?Last Taken ?Type aspirin 81 mg tablet,delayed 81 mg PO DAILY heart health 06/01/22 05/10/25 History release (Adult Low Dose Aspirin) atorvastatin 10 mg tablet 10 mg PO DAILY cholesterol 06/01/22 05/10/25 History metformin 500 mg tablet 500 mg PO BID diabetes 06/01/22 05/10/25 History ferrous sulfate 27 mg iron tablet 65 mg PO DAILY supplement 10/29/22 05/10/25 History folic acid 1 mg tablet 2 mg PO DAILY supplement 10/29/22 05/10/25 History losartan 25 mg tablet 25 mg PO DAILY blood pressure 10/29/22 05/10/25 History methotrexate sodium 2.5 mg tablet 15 mg PO QWEEK 10/29/22 05/09/25 History mirabegron 25 mg tablet,extended 25 mg PO QHS bladder #30 tabs 04/17/25 05/09/25 Rx release 24 hr (Myrbetriq) dorzolamide 22.3 mg-timolol 6.8 1 drp ophthalmic (eye) BID eye 05/10/25 05/10/25 History mg/mL eye drops health netarsudil 0.02 %-latanoprost 1 drp ophthalmic (eye) QHS eye 05/10/25 05/09/25 History 0.005 % eye drops (Rocklatan) health cyanocobalamin (vitamin B-12) 1,000 mcg PO DAILY vitamin #30 tabs 07/09/25 Unknown Rx 1,000 mcg tablet pantoprazole 40 mg tablet,delayed 40 mg PO DAILY #30 tabs 07/18/25 Unknown Rx release (Protonix) sodium chloride 1,000 mg soluble 1,000 mg PO TID #90 tabs 07/18/25 Unknown Rx tablet Allergy/AdvReac Type Severity Reaction Status Date / Time Sulfa (Sulfonamide AdvReac Intermediate Hives Verified 09/17/25 10:58 Antibiotics) Family History Father Gallstones BPH (benign prostatic hyperplasia) Mother Alzheimer dementia Surgical History History of bilateral tubal ligation History of bladder repair surgery Social History household members: family Smoking Status: Former smoker how long ago did patient quit smoking: Smoked 40 years, started 19 until quit, ~ 1 ppd. alcohol intake: never substance use type: does not use caffeine: Yes Type: coffee Number of servings: 1 what type of physical activity do you participate in: none rancho/muslim: Jehovah'S Witness seatbelt use: always ROS ROS Narrative Chronically blind. Denies melena, hematochezia, hematemesis. Has had infrequent episodes of epistaxis. All review of systems were negative except as mentioned above in the history of present illness and the other review of systems. Vital Signs Vital Signs Vital Signs: 09/17/25 10:58 09/17/25 12:53 09/17/25 12:56 Temperature 36.6 C Temperature Source Oral Pulse Rate 62 87 Respiratory Rate 20 H 20 H Respiratory Effort Short of Breath Blood Pressure 113/60 114/55 L Blood Pressure Mean 77 74 Pulse Ox 85 96 Oxygen Delivery Method Room Air Nasal Cannula Nasal Cannula Oxygen Flow Rate (L/min) 2 2 09/17/25 13:00 Temperature Temperature Source Pulse Rate 88 Respiratory Rate 20 H Respiratory Effort Blood Pressure 115/46 L Blood Pressure Mean 69 Pulse Ox 100 Oxygen Delivery Method Oxygen Flow Rate (L/min) Weight Weight: 64.864 kg Body Mass Index (BMI) 23.1 Physical Exam Const Constitutional Narrative: Pale. Hard of hearing. No respiratory stress. No conversational dyspnea. HEENT normocephalic, head/scalp atraumatic, hearing grossly normal bilaterally and moist oral mucous membranes Resp normal respiratory effort, no retractions, no use of accessory muscles and clear to auscultation bilaterally Cardio regular rate, regular rhythm, S1 normal heart sound and S2 normal heart sound GI normal to inspection, nondistended, normoactive bowel sounds, soft to palpation, non-tender and non-distended Extremity normal to inspection and full ROM Neuro Sensorium / Orientation: awake and alert Results Lab / Micro Data 09/17/25 12:01 09/17/25 12:01 Labs: Laboratory Results - last 24 hr 09/17/25 12:01: WBC 2.1 L, RBC 1.56 L, Hgb 4.7 L*, Hct 14.5 L, MCV 92.9, MCH 30.1, MCHC 32.4, RDW Std Deviation 44.7 H, RDW Coeff of Swapnil 13.2, Plt Count 7 L*, MPV 11.9, Immature Gran % (Auto) 1.400 H, Neut % (Auto) 51.4, Lymph % (Auto) 36.4, [place] % (Auto) 10.3 H, Eos % (Auto) 0.0, Baso % (Auto) 0.5, Absolute Neuts (auto) 1.1 L, Absolute Lymphs (auto) 0.78 L, Nucleated RBC % 0, Differential Comment COMMENT, Platelet Estimate MKD DEC, Sodium 133, Potassium 4.8, Chloride 102, Carbon Dioxide 21.2, Anion Gap 10, BUN 25 H, Creatinine 0.72, Estim Creat Clear Calc 44.63 L, Est GFR (MDRD) Non-Af 79, BUN/Creatinine Ratio 34.0 H, Glucose 108 H, Calcium 9.7, Troponin T High Sens 13 D 09/17/25 13:00: Crossmatch See Detail Imaging Radiology Impression Chest X-Ray 09/17/25 12:03 IMPRESSION: No acute abnormality is seen. Reading Location: [id number] Assessment & Plan Assessment/Plan (1) Pancytopenia: PLAN: Patient was mildly anemic back in July with hemoglobin of 10 but white count and platelets at that time were normal. Now all parameters are low. Unclear as to the cause of this. The patient does take methotrexate baseline so this could be possibly related with bone marrow suppression from methotrexate. Patient ordered 3 units packed red blood cells in the emergency room and will administer 2 units of platelets and evaluate. Patient will need to have routine blood work upon discharge and then have follow-up with hematology. I did attempt to reach out to Dr. Linares, but he was unavailable at that time. Check TSH, B12, folic acid, iron studies PLAN: Plan Hypertension: Continue with medications once is been reconciled Glaucoma: Continue with eyedrops. Rheumatoid arthritis: Hold methotrexate VTE prophylaxis: Low risk observation status and also contraindicated given her anemia and thrombocytopenia. Charges/Coding Visit Charges Inpatient E&M: 29960 Init Hosp L2
[2025-09-17 16:08] LABS: Ferritin 553 ng/mL (22-378); Vitamin B12 799 pg/mL (180-914)
[2025-09-17 16:21] LABS: Iron 225 ug/dL (50-170); Iron Binding Capacity,Unsat < 17 ug/dL (228-428)
[2025-09-17 16:33] LABS: Troponin T High Sens 2 HR 13 ng/L (<=14)
[2025-09-17 17:31] LABS: FOLATES,SERUM (FOLIC ACID) > 40.00 ng/mL (4.60-34.80)
--- NOTE | 2025-09-17 23:52 | NURSING ---
This RN verified platelets with KEREN Mirza at bedside. Platelets hung by gravity and started at 2345 in RAC IV.
[2025-09-18] MEDS: WATER IV ×4 (00:03→17:39)
[2025-09-18] MEDS: LEUCOVORIN IV ×4 (00:03→17:39)
[2025-09-18] MEDS: DEXTROSE 5% IV ×4 (00:03→17:39)
[2025-09-18 05:00] VITALS: BP 137/73; PULSE 75; RESP 16; TEMP 36.6; O2SAT 100
[2025-09-18] MEDS: 0.9% Saline Lock 10 ML Syringe IV (05:14)
[2025-09-18 05:25] LABS: Hematocrit 23.7 % (37-47); Hemoglobin 8.1 g/dL (12.0-15.0); Immature Granulocytes Count 0.020 X10^3/uL (0.0-0.0); Mean Corp Hgb Conc 34.2 g/dL (32-36); Mean Corpuscular Volume 84.9 fL (81-99); Mean Platelet Vol. 8.8 fl (6.2-12.0); NRBC Flagged by Analyzer 0 % (0-5); POSITIVE COUNT YES; RBC Distribution Width CV 15.6 % (11.6-14.6); RBC Distribution Width SD 48.2 fl (35.1-43.9); Red Blood Count 2.79 M/mm3 (4.2-5.4); White Blood Count 2.7 K/mm3 (4.4-11.0)
[2025-09-18 05:29] LABS: Platelet Count 41 K/mm3 (150-450)
[2025-09-18 05:44] LABS: AST(SGOT) 15 U/L (<=31); Alanine Aminotransfer ALT/SGPT 10 U/L (<=34); Albumin, Serum 3.6 g/dL (3.4-4.8); Alkaline Phosphatase 75 U/L (35-104); Anion Gap 9 (5-15); BUN 19 mg/dL (4-19); BUN/Creat Ratio 26.9 RATIO (10-20); Calcium,Total 8.8 mg/dL (7.6-11.0); Carbon Dioxide 23.3 mmol/L (21.0-32.0); Chloride 102 mmol/L (98-108); Estimated Creatinine Clearance 42.90 ml/min (50-250); Globulin 2.0 g/dL (2.2-4.2); Glucose 125 mg/dL (70-99); Potassium 4.0 mmol/L (3.3-5.1)
[2025-09-18 07:37] VITALS: BP 147/80; PULSE 79; RESP 21; TEMP 36.6; O2SAT 100
--- NOTE | 2025-09-18 07:51 | PN.HOSP_ITS ---
Reason for Visit
--- NOTE | 2025-09-18 07:51 | PCM.PN.HOSP ---
Reason for Visit Chief Complaint: weakness. Subjective Subjective Feeling better. Objective Data Objective Data Vital Signs: Vital Signs Temp Pulse Resp BP Pulse Ox O2 Del Method O2 Flow Rate 36.6 C 75 16 137/73 H 100 Room Air 1 09/18/25 05:00 09/18/25 05:00 09/18/25 05:00 09/18/25 05:00 09/18/25 05:00 09/18/25 05:00 09/17/25 23:00 Oxygen Flow Rate (L/min) 1 Oxygen Delivery Method Room Air Weight: 61.643 kg Body Mass Index (BMI) 22.6 Intake & Output: Intake and Output for Last 24 Hours 09/16/25 09/17/25 09/18/25 22:59 23:59 23:59 Intake Total 1440 / 1540 310 / 310 Output Total 200 / 200 550 / 550 Balance 1240 / 1340 -240 / -240 Lab / Micro Data 09/18/25 05:15 09/18/25 05:15 Labs: Laboratory Results - last 24 hr 09/17/25 12:01: WBC 2.1 L, RBC 1.56 L, Hgb 4.7 L*, Hct 14.5 L, MCV 92.9, MCH 30.1, MCHC 32.4, RDW Std Deviation 44.7 H, RDW Coeff of Swapnil 13.2, Plt Count 7 L*, MPV 11.9, Immature Gran % (Auto) 1.400 H, Neut % (Auto) 51.4, Lymph % (Auto) 36.4, [place] % (Auto) 10.3 H, Eos % (Auto) 0.0, Baso % (Auto) 0.5, Absolute Neuts (auto) 1.1 L, Absolute Lymphs (auto) 0.78 L, Nucleated RBC % 0, Differential Comment COMMENT, Platelet Estimate MKD DEC, Sodium 133, Potassium 4.8, Chloride 102, Carbon Dioxide 21.2, Anion Gap 10, BUN 25 H, Creatinine 0.72, Estim Creat Clear Calc 44.63 L, Est GFR (MDRD) Non-Af 79, BUN/Creatinine Ratio 34.0 H, Glucose 108 H, Calcium 9.7, Troponin T High Sens 13 D 09/17/25 13:00: Blood Type B POSITIVE, Antibody Screen NEGATIVE, Crossmatch See Detail 09/17/25 15:10: Iron 225 H, TIBC TNP, Iron Saturation TNP, Unsaturated IBC < 17 L, Ferritin 553 H, Troponin T Hi Sens 2 Hr 13, Vitamin B12 799, Serum Folate > 40.00 H, TSH 2.830 09/18/25 05:15: WBC 2.7 L, RBC 2.79 L, Hgb 8.1 L, Hct 23.7 L, MCV 84.9 D, MCH 29.0, MCHC 34.2 D, RDW Std Deviation 48.2 H, RDW Coeff of Swapnil 15.6 H, Plt Count 41 L*, MPV 8.8, Immature Gran % (Auto) 0.800, Neut % (Auto) 48.8, Lymph % (Auto) 37.2, [place] % (Auto) 12.4 H, Eos % (Auto) 0.4, Baso % (Auto) 0.4, Absolute Neuts (auto) 1.3 L, Absolute Lymphs (auto) 0.99, Nucleated RBC % 0, Sodium 134, Potassium 4.0, Chloride 102, Carbon Dioxide 23.3, Anion Gap 9, BUN 19, Creatinine 0.71, Estim Creat Clear Calc 42.90 L, Est GFR (MDRD) Non-Af 81, BUN/Creatinine Ratio 26.9 H, Glucose 125 H, Calcium 8.8, Total Bilirubin 0.66, AST 15, ALT 10, Alkaline Phosphatase 75, Total Protein 5.7 L, Albumin 3.6, Globulin 2.0 L, Albumin/Globulin Ratio 1.8 Radiography Diagnostic Testing: Radiology Impression Chest X-Ray 09/17/25 12:03 IMPRESSION: No acute abnormality is seen. Reading Location: [facility] Physical Exam Const alert and no apparent distress Constitutional Narrative: up in bed. less pale. HEENT head/scalp atraumatic and moist oral mucous membranes Resp normal respiratory effort, no retractions, no use of accessory muscles and clear to auscultation bilaterally Cardio regular rate, regular rhythm, S1 normal heart sound and S2 normal heart sound GI normal to inspection, nondistended, normoactive bowel sounds, soft to palpation, non-tender and non-distended Extremity normal to inspection, full ROM and no clubbing, cyanosis or edema Neuro Sensorium / Orientation: awake, alert, oriented to person and oriented to place Psych affect normal Assessment & Plan Assessment/Plan (1) Pancytopenia: PLAN: Symptomatic with shortness of breath due to the anemia and spontaneous epistaxis due to thrombocytopenia (this is suspected as labs were not performed during a period of epistaxis) patient was mildly anemic back in July with hemoglobin of 10 but white count and platelets at that time were normal. Now all parameters are low. Unclear as to the cause of this. The patient does take methotrexate baseline so this could be possibly related with bone marrow suppression from methotrexate. Hemoglobin increased to 8.1 after 3 units of packed red blood cells and platelets up to 41 after units of platelets. Patient ordered 3 units packed red blood cells in the emergency room and will administer 2 units of platelets and evaluate. Patient will need to have routine blood work upon discharge and then have follow-up with hematology. I did attempt to reach out to Dr. Linares, but he was unavailable at that time. B12 799, folate greater than 40, TSH 2.8, iron 225, ferritin 553. Still waiting on methotrexate level. Per discussion with Dr. Linares 09/17, concern for methotrexate toxicity and patient has been started on leucovorin 50 mg 4 times daily with plan to continue 20 mg p.o. 4 times daily upon discharge and follow-up with hematology. Will continue leucovorin for another day and monitor labs, if remains stable, should be medically ready for discharge. PLAN: Plan Hypertension: Continue with medications once is been reconciled Glaucoma: Continue with eyedrops. Rheumatoid arthritis: Hold methotrexate VTE prophylaxis: Low risk observation status and also contraindicated given her anemia and thrombocytopenia. Dispositoin: to home pending medically stable. Charges/Coding Visit Charges Inpatient E&M: 59337 Subs Hosp L2
[2025-09-18 07:58] VITALS: O2SAT 94
--- NOTE | 2025-09-18 09:43 | CASEMGMT ---
KEREN BLANCA Assessment Face to Face with patient for initial transition planning/care coordination assessment. KEREN BLANCA introduced self and role at [facility], pt voices understanding. Pt is A&Ox4 and is resting comfortably in the chair and is calm. Care providers, pharmacy, and demographics verified. Admitting dx: Pancytopenia LACE Strata: 3 PCP: Fitz Walters Specialists: Lizet (Rheumatology), Lonnie (Podiatry), water resource specialist in [place] (Cannot recall name), [facility] [place] (Dr Renee) Preferred Pharmacy: [facility] Insurance: [employer] Secure Prescription Benefit: Yes LNOK: Elzbieta (Daughter) Living Arrangements: Pt lives with her daughter and VIOLETA in a 2 story home with 2 steps to enter. Pt reports that her bedroom is located in the upper portion of the house and that there is a stair lift to access the upper level. ADLs/IADLs: Pt states that she is indep at baseline. PT is ordered and pending. Pt daughter and VIOLETA are available to support as needed Transportation: Daughter, VIOLETA DME: Stair lift, grab bars, shower chair, cane, fww, pulse ox. Pt states that she has a POC leftover from the pt's . HHC/SNF: Denies hx of or needs at this time Pt?s goal: Home Plan: Home with pt daughter and VIOLETA, anticipate no further needs at this time. Pt states that she feels safe returning home with her family @ the time of DC and denies the need for HH or OP Tx. However, pt informed that PT will evaluate the pt to see if this is safe. Pt states understanding denies further concerns at this time. Karla Carter RN, CM
--- NOTE | 2025-09-18 10:39 | NURSING ---
Rosa M Ruff( daughter) Stated that she will bring in a current medication list and will bring POA papers. Will follow up
[2025-09-18 12:29] LABS: Hematocrit 27.1 % (37-47); Hemoglobin 9.3 g/dL (12.0-15.0); Immature Granulocytes Count 0.010 X10^3/uL (0.0-0.0); Mean Corp Hgb Conc 34.3 g/dL (32-36); Mean Corpuscular Volume 85.8 fL (81-99); Mean Platelet Vol. 10.2 fl (6.2-12.0); NRBC Flagged by Analyzer 0 % (0-5); POSITIVE COUNT YES; POSITIVE MORPHOLOGY YES; RBC Distribution Width CV 15.9 % (11.6-14.6); RBC Distribution Width SD 49.1 fl (35.1-43.9); Red Blood Count 3.16 M/mm3 (4.2-5.4); White Blood Count 2.4 K/mm3 (4.4-11.0)
[2025-09-18 12:31] LABS: Differential Indicated SCAN CRITERIA MET; Platelet Count 40 K/mm3 (150-450)
[2025-09-18 12:54] LABS: Differential Comment SCANNED
[2025-09-18 12:55] VITALS: BP 143/81; PULSE 76; RESP 16; TEMP 36.4; O2SAT 98
--- NOTE | 2025-09-18 15:54 | CHAPLAIN ---
Type of Pastoral Visit _x__ Initial Visit ___ Follow-up Visit ___ On-call Visit ___ General Patient Visit ___ Spiritual Assessment ___ Family Conference ___ Bereavement ___ Rapid Response ___ Code Blue ___ Other (describe below) Pastoral Care Referral From _x__ Patient ___ Family ___ Nurse ___ Physician ___ X Ray Control Equipment Repairer ___ Traveling Passenger Agent ___ Other (describe below) Sacrament/Intervention _x__ Active listening ___ Anointing ___ Synagogue ___ Bereavement ___ Communion ___ Anahi exploration ___ ___ Life review _x__ Prayer ___ Reconciliation ___ Sacrament of Sick _x__ Supportive presence ___ Wedding ___ Other (describe below) Pastoral Comments
[2025-09-18 17:54] VITALS: BP 148/80; PULSE 79; RESP 16; TEMP 36.4; O2SAT 94
[2025-09-18 21:49] VITALS: BP 151/75; PULSE 72; RESP 18; TEMP 36.5; O2SAT 98
[2025-09-18] MEDS: 0.9% Normal Saline (250mL Bag) 250 ML 15 ML IV (22:38)
[2025-09-19] MEDS: LEUCOVORIN IV ×3 (00:54→11:57)
[2025-09-19] MEDS: WATER IV ×3 (00:54→11:57)
[2025-09-19] MEDS: DEXTROSE 5% IV ×3 (00:54→11:57)
[2025-09-19] MEDS: 0.9% Saline Lock 10 ML Syringe IV ×3 (00:58→11:57)
[2025-09-19 03:37] LABS: Hematocrit 25.6 % (37-47); Hemoglobin 8.8 g/dL (12.0-15.0); Immature Granulocytes Count 0.010 X10^3/uL (0.0-0.0); Mean Corp Hgb Conc 34.4 g/dL (32-36); Mean Corpuscular Volume 86.5 fL (81-99); Mean Platelet Vol. 11.3 fl (6.2-12.0); NRBC Flagged by Analyzer 0 % (0-5); POSITIVE COUNT YES; POSITIVE DIFFERENTIAL YES; RBC Distribution Width CV 15.7 % (11.6-14.6); RBC Distribution Width SD 49.1 fl (35.1-43.9); Red Blood Count 2.96 M/mm3 (4.2-5.4); White Blood Count 2.4 K/mm3 (4.4-11.0)
[2025-09-19 03:41] LABS: Differential Indicated SCAN CRITERIA MET; Platelet Count 25 K/mm3 (150-450)
[2025-09-19 03:57] VITALS: BP 135/79; PULSE 71; RESP 18; TEMP 36.4; O2SAT 94
[2025-09-19 04:02] LABS: Anion Gap 9 (5-15); BUN 17 mg/dL (4-19); BUN/Creat Ratio 25.0 RATIO (10-20); Calcium,Total 9.2 mg/dL (7.6-11.0); Carbon Dioxide 22.5 mmol/L (21.0-32.0); Chloride 103 mmol/L (98-108); Estimated Creatinine Clearance 42.90 ml/min (50-250); Glucose 105 mg/dL (70-99); Potassium 4.5 mmol/L (3.3-5.1)
[2025-09-19 04:06] LABS: Differential Comment SCANNED
[2025-09-19 06:53] VITALS: O2SAT 94
[2025-09-19 08:00] VITALS: BP 136/89; PULSE 63; RESP 14; TEMP 36.6; O2SAT 93
--- NOTE | 2025-09-19 08:01 | PN.HOSP_ITS ---
Reason for Visit
--- NOTE | 2025-09-19 08:01 | PCM.PN.HOSP ---
Reason for Visit Chief Complaint: weakness. Subjective Subjective I had restless legs overnight that impeded her sleep. Otherwise feeling well. Objective Data Objective Data Vital Signs: Vital Signs Temp Pulse Resp BP Pulse Ox O2 Del Method O2 Flow Rate 36.4 C L 71 18 135/79 H 94 Room Air 1 09/19/25 03:57 09/19/25 03:57 09/19/25 03:57 09/19/25 03:57 09/19/25 06:53 09/19/25 06:53 09/17/25 23:00 Oxygen Flow Rate (L/min) 1 Oxygen Delivery Method Room Air Weight: 61.643 kg Body Mass Index (BMI) 22.6 Intake & Output: Intake and Output for Last 24 Hours 09/17/25 09/18/25 09/19/25 23:59 23:59 23:59 Intake Total 1440 / 1540 700.25 / 1020.25 535.75 / 535.75 Output Total 200 / 200 1000 / 1650 650 / 650 Balance 1240 / 1340 -299.75 / -629.75 -114.25 / -114.25 Lab / Micro Data 09/19/25 03:09 09/19/25 03:09 Labs: Laboratory Results - last 24 hr 09/18/25 12:04: WBC 2.4 L, RBC 3.16 L, Hgb 9.3 L, Hct 27.1 L, MCV 85.8, MCH 29.4, MCHC 34.3, RDW Std Deviation 49.1 H, RDW Coeff of Swapnil 15.9 H, Plt Count 40 L*, MPV 10.2, Immature Gran % (Auto) 0.400, Neut % (Auto) 49.0, Lymph % (Auto) 38.1, Ward % (Auto) 12.1 H, Eos % (Auto) 0.4, Baso % (Auto) 0.0, Absolute Neuts (auto) 1.2 L, Absolute Lymphs (auto) 0.91, Nucleated RBC % 0, Differential Comment SCANNED, Platelet Estimate MKD DEC 09/19/25 03:09: WBC 2.4 L, RBC 2.96 L, Hgb 8.8 L, Hct 25.6 L, MCV 86.5, MCH 29.7, MCHC 34.4, RDW Std Deviation 49.1 H, RDW Coeff of Swapnil 15.7 H, Plt Count 25 L*, MPV 11.3, Immature Gran % (Auto) 0.400, Neut % (Auto) 34.1 L, Lymph % (Auto) 50.6 H, Ward % (Auto) 13.6 H, Eos % (Auto) 0.9, Baso % (Auto) 0.4, Absolute Neuts (auto) 0.8 L, Absolute Lymphs (auto) 1.19, Nucleated RBC % 0, Differential Comment SCANNED, Platelet Estimate MKD DEC, Sodium 135, Potassium 4.5, Chloride 103, Carbon Dioxide 22.5, Anion Gap 9, BUN 17, Creatinine 0.66 L, Estim Creat Clear Calc 42.90 L, Est GFR (MDRD) Non-Af 84, BUN/Creatinine Ratio 25.0 H, Glucose 105 H, Calcium 9.2 Physical Exam Const alert and no apparent distress Constitutional Narrative: Blind. Hard of hearing. Pleasant and nontoxic. HEENT head/scalp atraumatic and moist oral mucous membranes Assessment & Plan Assessment/Plan (1) Pancytopenia: PLAN: Symptomatic with shortness of breath due to the anemia and spontaneous epistaxis due to thrombocytopenia (this is suspected as labs were not performed during a period of epistaxis) patient was mildly anemic back in July with hemoglobin of 10 but white count and platelets at that time were normal. Now all parameters are low. Unclear as to the cause of this. The patient does take methotrexate baseline so this could be possibly related with bone marrow suppression from methotrexate. Hemoglobin increased to 8.1 after 3 units of packed red blood cells and platelets up to 41 after units of platelets. Patient ordered 3 units packed red blood cells in the emergency room and will administer 2 units of platelets and evaluate. Patient will need to have routine blood work upon discharge and then have follow-up with hematology. I did attempt to reach out to Dr. Linares, but he was unavailable at that time. B12 799, folate greater than 40, TSH 2.8, iron 225, ferritin 553. Still waiting on methotrexate level. Per discussion with Dr. Linares 09/17, concern for methotrexate toxicity and patient has been started on leucovorin 50 mg 4 times daily with plan to continue 20 mg p.o. 4 times daily upon discharge and follow-up with hematology. Hg down slightyl as well as platelets. Continue leucovorin and have follow up labs and hematology follow up. PLAN: Plan Hypertension: Continue with medications once is been reconciled Glaucoma: Continue with eyedrops. Rheumatoid arthritis: Hold methotrexate VTE prophylaxis: Low risk observation status and also contraindicated given her anemia and thrombocytopenia. Dispositoin: to home
--- NOTE | 2025-09-19 09:34 | PCM.DC.SUM ---
Providers Date of Admission: 09/17/25 Primary Care Physician: Dr. Fitz Walters MD Reason For Visit: PANCYTOPENIA Diagnosis Discharge Diagnosis (1) Pancytopenia: Status: Acute Code(s): D61.818 - Other pancytopenia Plan: Symptomatic with shortness of breath due to the anemia and spontaneous epistaxis due to thrombocytopenia (this is suspected as labs were not performed during a period of epistaxis) patient was mildly anemic back in July with hemoglobin of 10 but white count and platelets at that time were normal. Now all parameters are low. Unclear as to the cause of this. The patient does take methotrexate baseline so this could be possibly related with bone marrow suppression from methotrexate. Hemoglobin increased to 8.1 after 3 units of packed red blood cells and platelets up to 41 after units of platelets. Patient ordered 3 units packed red blood cells in the emergency room and will administer 2 units of platelets and evaluate. Patient will need to have routine blood work upon discharge and then have follow-up with hematology. I did attempt to reach out to Dr. Linares, but he was unavailable at that time. B12 799, folate greater than 40, TSH 2.8, iron 225, ferritin 553. Still waiting on methotrexate level. Per discussion with Dr. Linares 09/17, concern for methotrexate toxicity and patient has been started on leucovorin 50 mg 4 times daily with plan to continue 20 mg p.o. 4 times daily upon discharge and follow-up with hematology. Hg down slightyl as well as platelets. Continue leucovorin and have follow up labs and hematology follow up. Plan Hypertension: Continue with medications once is been reconciled Glaucoma: Continue with eyedrops. Rheumatoid arthritis: Hold methotrexate VTE prophylaxis: Low risk observation status and also contraindicated given her anemia and thrombocytopenia. Dispositoin: to home Medications at Discharge Home Medications atorvastatin 10 mg tablet 10 mg PO DAILY cholesterol 06/01/22 metformin 500 mg tablet 500 mg PO BID diabetes 06/01/22 ferrous sulfate 27 mg iron tablet 65 mg PO DAILY supplement 10/29/22 folic acid 1 mg tablet 1 mg PO BID supplement 10/29/22 losartan 25 mg tablet 25 mg PO DAILY blood pressure 10/29/22 dorzolamide 22.3 mg-timolol 6.8 mg/mL eye drops 1 drp ophthalmic (eye) BID eye health 05/10/25 netarsudil 0.02 %-latanoprost 0.005 % eye drops (Rocklatan) 1 drp ophthalmic (eye) [facility] eye health 05/10/25 cyanocobalamin (vitamin B-12) 1,000 mcg tablet 1,000 mcg PO DAILY vitamin #30 tabs 07/09/25 leucovorin calcium 10 mg tablet 20 mg (2 x 10 mg) PO Q6H 30 days #240 tabs 09/19/25 Hospital Course Operations None Procedures None Summary of Care Provided Hospital Course: Greater than 30 minutes spent on discharge. Patient presents with shortness of breath and weakness. Patient was found to be significantly anemic with hemoglobin of 4.7. I been seen 2 days prior for spontaneous epistaxis that resolved spontaneously. Blood work was not performed but her blood work 2 days later showed a platelet count of 7000. Presumably it is felt that she may have had severe thrombocytopenia leading to that spontaneous epistaxis. The patient was transfused 3 units of packed red blood cells and 2 units of platelets while she was here. Hemoglobin has responded appropriately with hemoglobin that went up to 9.3 but currently at 8.8 and platelets peaked at 41,000 and are currently 25,000. No further bleeding. No need for further transfusions at this time. Case was discussed with Dr. Linares, of hematology, who felt that the symptoms may be methotrexate bone marrow suppression and recommended leucovorin, while inpatient 50 mg 4 times daily IV and then upon discharge 20 mg 4 times daily in the follow-up with hematology. Patient need to also have follow-up CBC to see how her counts are doing. Patient overall feels better after the transfusions. Weight / BMI Weight Weight: 61.643 kg Body Mass Index (BMI) 22.6 ABG / Lab / Microbiology Data 09/19/25 03:09 09/19/25 03:09 Laboratory: Laboratory Results - last 24 hr 09/18/25 12:04: WBC 2.4 L, RBC 3.16 L, Hgb 9.3 L, Hct 27.1 L, MCV 85.8, MCH 29.4, MCHC 34.3, RDW Std Deviation 49.1 H, RDW Coeff of Swapnil 15.9 H, Plt Count 40 L*, MPV 10.2, Immature Gran % (Auto) 0.400, Neut % (Auto) 49.0, Lymph % (Auto) 38.1, Edgar % (Auto) 12.1 H, Eos % (Auto) 0.4, Baso % (Auto) 0.0, Absolute Neuts (auto) 1.2 L, Absolute Lymphs (auto) 0.91, Nucleated RBC % 0, Differential Comment SCANNED, Platelet Estimate MKD 09/19/25 03:09: WBC 2.4 L, RBC 2.96 L, Hgb 8.8 L, Hct 25.6 L, MCV 86.5, MCH 29.7, MCHC 34.4, RDW Std Deviation 49.1 H, RDW Coeff of Swapnil 15.7 H, Plt Count 25 L*, MPV 11.3, Immature Gran % (Auto) 0.400, Neut % (Auto) 34.1 L, Lymph % (Auto) 50.6 H, Edgar % (Auto) 13.6 H, Eos % (Auto) 0.9, Baso % (Auto) 0.4, Absolute Neuts (auto) 0.8 L, Absolute Lymphs (auto) 1.19, Nucleated RBC % 0, Differential Comment SCANNED, Platelet Estimate MKD OCT, Sodium 135, Potassium 4.5, Chloride 103, Carbon Dioxide 22.5, Anion Gap 9, BUN 17, Creatinine 0.66 L, Estim Creat Clear Calc 42.90 L, Est GFR (MDRD) Non-Af 84, BUN/Creatinine Ratio 25.0 H, Glucose 105 H, Calcium 9.2 D/C Instructions DC O2, CPAP, BIPAP Needs Home O2 Discharge instructions: No Meaningful Use Info Meaningful Use Meaningful Use Diagnoses (Choose all that apply): None applicable Discharge Plan Admission Admit Date/Time: 09/17/25 14:44 Primary Reason for Your Visit: Pancytopenia Attending Provider: Luke Smith Primary Care Provider: Fitz Walters Instructions Additional Instructions / Restrictions: You had pancytopenia, which is counts that are low with your white blood cells, blood count and platelets. It is concerning that this may be related with methotrexate which has been held and you been started on medication called leucovorin. You will continue with leucovorin until you follow-up with medical writer. It is also very important that you do have some outpatient labs if you are unable to get into hematology soon to follow-up your primary care doctor so that you may have blood counts performed later this week or early next week. If you continue to feel weak and have more shortness of breath, notify your physician or return to the emergency room. Discharge Orders/Prescriptions Prescriptions: New leucovorin calcium 10 mg tablet 20 mg PO Q6H 30 Days Qty: 240 0RF Continued atorvastatin 10 mg tablet 10 mg PO DAILY metformin 500 mg tablet 500 mg PO BID ferrous sulfate 27 mg iron tablet 65 mg PO DAILY losartan 25 mg tablet 25 mg PO DAILY folic acid 1 mg tablet 1 mg PO BID dorzolamide-timolol 22.3-6.8 mg/mL drops 1 drp ophthalmic (eye) BID Rocklatan 0.02-0.005 % drops 1 drp ophthalmic (eye) [facility] cyanocobalamin (vitamin B-12) 1,000 mcg tablet 1,000 mcg PO DAILY Qty: 30 10RF Discontinued aspirin [Adult Low Dose Aspirin] 81 mg tablet,delayed release (DR/EC) 81 mg PO DAILY methotrexate sodium 2.5 mg tablet 15 mg PO QWEEK Rx Instructions: PT TAKES ON WEDNESDAYS mirabegron [Myrbetriq] 25 mg tablet extended release 24 hr 25 mg PO QHS Qty: 30 6RF Referrals / Follow Up: *[facility] [Provider Group] - Within 1 Week Fitz Walters MD [Primary Care Provider, Internal Medicine] - Within 1 Week Disposition Disposition (needs filled in before D/C Order can be placed): Home, Self Care Charges/Coding Visit Charges Inpatient E&M: 26281 Disch Hosp >30min
[2025-09-19 15:15] VITALS: BP 108/78; PULSE 75; RESP 15; TEMP 36.4; O2SAT 92
--- NOTE | 2025-09-19 17:05 | PHA.DC_ITS ---
Pharmacy [place] Med Reconciliation
--- NOTE | 2025-09-19 17:05 | PHA.DC.MR.R ---
Pharmacy [place] Med Reconciliation Pharmacy Service has performed discharge medication reconciliation for this patient. The patient's discharge medication list was reviewed for discrepancies and discrepancies were resolved. Medications at Discharge Home Medications atorvastatin 10 mg tablet 10 mg PO DAILY cholesterol 06/01/22 metformin 500 mg tablet 500 mg PO BID diabetes 06/01/22 ferrous sulfate 27 mg iron tablet 65 mg PO DAILY supplement 10/29/22 folic acid 1 mg tablet 1 mg PO BID supplement 10/29/22 losartan 25 mg tablet 25 mg PO DAILY blood pressure 10/29/22 dorzolamide 22.3 mg-timolol 6.8 mg/mL eye drops 1 drp ophthalmic (eye) BID eye health 05/10/25 netarsudil 0.02 %-latanoprost 0.005 % eye drops ([facility]) 1 drp ophthalmic (eye) [facility] eye health 05/10/25 cyanocobalamin (vitamin B-12) 1,000 mcg tablet 1,000 mcg PO DAILY vitamin #30 tabs 07/09/25 leucovorin calcium 10 mg tablet 20 mg (2 x 10 mg) PO Q6H 30 days #240 tabs 09/19/25
== END 2025-09-19 20:57 | disposition home or self-care (01) | DRG 810 ==
LOC: ED 13:05 → ICU 13:34 → MS3 09-18 18:23
PROVIDERS: Emergency Provider Emergency Medicine; PCP Internal Medicine
DX: D61.818 Other pancytopenia (principal); E11.39 Type 2 diabetes mellitus with other diabetic ophthalmic complication; M06.9 Rheumatoid arthritis, unspecified; I10 Essential (primary) hypertension; H40.9 Unspecified glaucoma; Z79.84 Long term (current) use of oral hypoglycemic drugs; Z87.891 Personal history of nicotine dependence; Z79.899 Other long term (current) drug therapy
CPT/HCPCS: 36415; 71045; 80048; 80053; 80204; 82607; 82728; 82746; 83540; 83550; 84443; 84484; 85025; 86850; 86900; 86901; 86965; 93005; 97161; 97166; 97535; 99282; 99285; P9016; P9035; A4216; J0640

== ENCOUNTER 2025-10-02 11:44 | Inpatient (IN) | payer MEDICARE, SELFPAY ==
[2025-10-02] VITALS (51 sets, daily range): BP systolic 102–170; BP diastolic 54–131; PULSE 70–109; RESP 15–29; TEMP 36.2–36.9; O2SAT 90–100; BMI 22.6; BMI 22.4
[2025-10-02] MEDS: 0.9% Normal Saline (500mL Bag) 500 ML 1000 ML IV (12:19)
[2025-10-02] MEDS: Mixture 30 ML Bottle TOPICAL (12:21)
[2025-10-02 12:33] LABS: Hematocrit 18.4 % (37-47); Hemoglobin 6.1 g/dL (12.0-15.0); Immature Granulocytes Count 0.010 X10^3/uL (0.0-0.0); Mean Corp Hgb Conc 33.2 g/dL (32-36); Mean Corpuscular Volume 88.5 fL (81-99); Mean Platelet Vol. 8.9 fl (6.2-12.0); NRBC Flagged by Analyzer 0 % (0-5); POSITIVE COUNT YES; POSITIVE MORPHOLOGY YES; RBC Distribution Width CV 13.6 % (11.6-14.6); RBC Distribution Width SD 43.8 fl (35.1-43.9); Red Blood Count 2.08 M/mm3 (4.2-5.4); White Blood Count 2.5 K/mm3 (4.4-11.0)
[2025-10-02 12:34] LABS: Differential Indicated SCAN CRITERIA MET; Platelet Count 7 K/mm3 (150-450)
[2025-10-02 12:44] LABS: Prothrombin Time (Protime)PT. 15.8 SECONDS (11.7-14.9)
[2025-10-02 13:02] LABS: AST(SGOT) 18 U/L (<=31); Alanine Aminotransfer ALT/SGPT 11 U/L (<=34); Albumin, Serum 4.1 g/dL (3.4-4.8); Alkaline Phosphatase 89 U/L (35-104); Anion Gap 10 (5-15); BUN 21 mg/dL (4-19); BUN/Creat Ratio 28.2 RATIO (10-20); Calcium,Total 9.4 mg/dL (7.6-11.0); Carbon Dioxide 21.7 mmol/L (21.0-32.0); Chloride 101 mmol/L (98-108); Differential Comment SCANNED; Estimated Creatinine Clearance 42.90 ml/min (50-250); Globulin 2.6 g/dL (2.2-4.2); Glucose 130 mg/dL (70-99); Potassium 4.9 mmol/L (3.3-5.1)
--- NOTE | 2025-10-02 13:03 | ED.RN ---
Critical Lactic Acid received from lab of 3.0. Dr. Rees notified.
[2025-10-02 16:25] LABS: Reflex Lactate? Y
--- NOTE | 2025-10-02 17:33 | EX.ED.DYSGE1 ---
HPI History of Present Illness Chief Complaint: Weakness Detail of Chief Complaint: Epistaxis, weakness, dyspnea with conversation and dyspnea with minimal act Informant: patient and family Onset/Context/Timing Onset: Today and Yesterday Context: Sudden Onset Timing: Continuous Quality: Patient had bleeding from the left naris the entire evening. Location: Left naris Current Severity: Mild Maximum Severity: Moderate Worsened by: Patient has history of thrombocytopenia and anemia she is on no anticoagula Relieved by: Nothing Associated Symptoms Associated Symptoms: Symptomatic anemia Narrative Narrative: Patient is a an 89-year-old woman. She presents because of epistaxis. She had bleeding throughout the night. She presents now because of conversational dyspnea, dyspnea with walking, and nosebleed. She was unaware that she had petechiae lower extremity exam family is not a good informant nor is the patient. She denies headache. She denies double vision, blurred vision loss of vision. Denies ringing or ears decreased hearing. Has trouble with speech or swallowing. She has no complaint of chest pressure, tightness, heaviness or pain with breathing. She denies cough or sputum production. She denies abdominal pain. She denies nausea, vomiting or diarrhea. Denies black or maroon-colored stool. She denies dysuria, frequency, urgency or hematuria. Prior similar symptoms: Yes Recent Illness/Hospitalization: Yes [facility] Medical History Campylobacter gastroenteritis Gastritis Enteritis Colitis Hypomagnesemia Acute metabolic encephalopathy Fever Dehydration Hyponatremia Nausea and vomiting Mild cognitive impairment Acute hyponatremia Cellulitis Cat bite of right lower leg with infection Rheumatoid arthritis Former tobacco use HTN (hypertension) HLD (hyperlipidemia) Irritable bowel syndrome (IBS) Hives High triglycerides Migraines Glaucoma Diabetes mellitus Cataracts, bilateral Arthritis Home Medications Medication Instructions Recorded Last Taken Type atorvastatin 10 mg tablet 10 mg PO QHS cholesterol 06/01/22 10/01/25 History metformin 500 mg tablet 500 mg PO BID diabetes 06/01/22 10/02/25 History ferrous sulfate 27 mg iron tablet 65 mg PO DAILY supplement 10/29/22 10/02/25 History folic acid 1 mg tablet 1 mg PO BID supplement 10/29/22 10/02/25 History losartan 25 mg tablet 25 mg PO DAILY blood pressure 10/29/22 10/02/25 History dorzolamide 22.3 mg-timolol 6.8 1 drp ophthalmic (eye) BID eye 05/10/25 10/02/25 History mg/mL eye drops health netarsudil 0.02 %-latanoprost 1 drp ophthalmic (eye) QHS eye 05/10/25 10/01/25 History 0.005 % eye drops (Rocklatan) health cyanocobalamin (vitamin B-12) 1,000 mcg PO DAILY vitamin #30 tabs 07/09/25 10/02/25 Rx 1,000 mcg tablet leucovorin calcium 10 mg tablet 20 mg (2 x 10 mg) PO Q6H ANEMIA 30 09/19/25 Unknown Rx days #240 tabs amoxicillin 500 mg tablet 500 mg PO TID #15 tabs 10/02/25 Unknown Rx Allergy/AdvReac Type Severity Reaction Status Date / Time Sulfa (Sulfonamide AdvReac Intermediate Hives Verified 10/02/25 11:46 Antibiotics) Family History Father Gallstones BPH (benign prostatic hyperplasia) Mother Alzheimer dementia Surgical History History of bilateral tubal ligation History of bladder repair surgery Social History household members: family Smoking Status: Former smoker how long ago did patient quit smoking: Smoked 40 years, started 19 until quit, ~ 1 ppd. alcohol intake: never substance use type: does not use caffeine: Yes Type: coffee Number of servings: 1 what type of physical activity do you participate in: none rancho/taoist: Sikh seatbelt use: always ROS ROS ED Constitutional Constitutional ED: Denies chills, fever(s), subjective, sweats or weight loss Eyes Eyes: Denies blurry vision, change in vision or diplopia ENT ENT ED: Reports other Details: Epistaxis left naris ; Denies ear pain, rhinorrhea or sore throat Cardiovascular Cardiovascular: Denies chest pain, orthopnea, palpitations, paroxysmal nocturnal dyspnea or racing heartbeat Respiratory/Chest Respiratory/Chest: Reports dyspnea and dyspnea on exertion; Denies cough, orthopnea or paroxysmal nocturnal dyspnea Gastrointestinal Gastrointestinal: Denies abdominal pain, constipation, diarrhea, melena or vomiting Musculoskeletal Musculoskeletal: Denies arthralgias, back pain or myalgias Integumentary Denies abscess, Abrasions or rash Neurologic Neurologic: Reports weakness; Denies headache(s) or paresthesias Hematologic/Lymphatic Hematologic/Lymphatic: Reports systems reviewed and no addt'l complaints, except as documented EXAM Physical Exam Const Vital Signs: 10/02/25 11:44 10/02/25 12:08 10/02/25 12:25 Temperature 97.2 F L Temperature Source Oral Pulse Rate 79 77 Respiratory Rate 18 20 H Respiratory Effort Normal Respiratory Pattern Normal Blood Pressure 119/57 L Blood Pressure Mean 77 Blood Pressure Source Blood Pressure Location Pulse Ox 91 92 Oxygen Delivery Method Room Air 10/02/25 12:30 10/02/25 12:45 10/02/25 13:00 Temperature Temperature Source Pulse Rate 77 78 89 Respiratory Rate 16 19 H 23 H Respiratory Effort Respiratory Pattern Blood Pressure 115/75 103/76 Blood Pressure Mean 88 81 Blood Pressure Source Blood Pressure Location Pulse Ox 90 Oxygen Delivery Method 10/02/25 13:15 10/02/25 13:30 10/02/25 13:48 Temperature Temperature Source Pulse Rate 81 79 82 Respiratory Rate 23 H 17 Respiratory Effort Respiratory Pattern Blood Pressure 132/100 H Blood Pressure Mean 112 Blood Pressure Source Blood Pressure Location Pulse Ox Oxygen Delivery Method 10/02/25 13:50 10/02/25 13:52 10/02/25 14:00 Temperature 97.7 F L Temperature Source Oral Pulse Rate 79 79 78 Respiratory Rate 18 17 20 H Respiratory Effort Respiratory Pattern Blood Pressure 124/106 H 134/100 H 124/64 H Blood Pressure Mean 114 111 82 Blood Pressure Source Monitor Blood Pressure Location Right Arm Pulse Ox 100 100 Oxygen Delivery Method Room Air 10/02/25 14:00 10/02/25 14:14 10/02/25 14:15 Temperature 97.9 F Temperature Source Oral Pulse Rate 78 77 76 Respiratory Rate 19 H 21 H 20 H Respiratory Effort Respiratory Pattern Blood Pressure 124/64 H 109/54 L 109/54 L Blood Pressure Mean 84 71 72 Blood Pressure Source Monitor Blood Pressure Location Pulse Ox 100 97 Oxygen Delivery Method Room Air 10/02/25 14:15 10/02/25 14:30 10/02/25 14:45 Temperature Temperature Source Pulse Rate 78 80 74 Respiratory Rate 19 H 18 20 H Respiratory Effort Respiratory Pattern Blood Pressure 102/64 Blood Pressure Mean 75 Blood Pressure Source Blood Pressure Location Pulse Ox 100 Oxygen Delivery Method 10/02/25 15:00 10/02/25 15:15 10/02/25 15:30 Temperature Temperature Source Pulse Rate 83 86 81 Respiratory Rate 18 17 21 H Respiratory Effort Respiratory Pattern Blood Pressure 107/71 122/60 H Blood Pressure Mean 83 79 Blood Pressure Source Blood Pressure Location Pulse Ox 100 Oxygen Delivery Method 10/02/25 15:45 10/02/25 16:00 10/02/25 16:15 Temperature Temperature Source Pulse Rate 74 81 79 Respiratory Rate 21 H 21 H 24 H Respiratory Effort Respiratory Pattern Blood Pressure 119/68 Blood Pressure Mean 83 Blood Pressure Source Blood Pressure Location Pulse Ox 100 100 100 Oxygen Delivery Method 10/02/25 16:30 10/02/25 16:31 10/02/25 16:45 Temperature Temperature Source Pulse Rate 99 83 84 Respiratory Rate 18 24 H 21 H Respiratory Effort Respiratory Pattern Blood Pressure 142/89 H Blood Pressure Mean 104 Blood Pressure Source Blood Pressure Location Pulse Ox 100 100 Oxygen Delivery Method 10/02/25 16:56 10/02/25 17:03 10/02/25 17:03 Temperature 98.1 F Temperature Source Oral Pulse Rate 80 87 90 Respiratory Rate 18 21 H 23 H Respiratory Effort Respiratory Pattern Blood Pressure 133/69 H 133/69 H Blood Pressure Mean 86 90 Blood Pressure Source Monitor Blood Pressure Location Right Arm Pulse Ox 100 100 Oxygen Delivery Method Room Air Positive well nourished and well developed Constitutional Narrative: Patient appears pale. She does have conversational dyspnea. General Appearance ED: well developed, NAD and pallor HEENT HEENT Narrative: Patient noted to have bleeding left nares over Griffin box plexus. There is a clot noted at this time. Uvula is midline. There is no deviation tongue or protrusion. There is no blood noted posterior pharynx. Eyes PERRL and EOMs intact bilaterally General Eye ED: Yes pale conjunctiva; Negative for scleral icterus Neck no lymphadenopathy, supple and no JVD Neck Narrative: Trachea is midline. Resp normal respiratory effort and clear to auscultation bilaterally Cardio regular rate, regular rhythm, S1 normal heart sound, S2 normal heart sound and no murmurs GI normal to inspection, nondistended, normoactive bowel sounds, non-tender, non-distended and no masses; Negative for hepatosplenomegaly Back/Spine no CVA tenderness Extremity General Extremety ED: Yes edema; Negative for tenderness General Extremity: edema Neuro oriented x3, CN's II-XII intact bilaterally and no sensory deficits noted Sensorium / Orientation: alert Motor Exam: strength 5/5 throughout Psych mental status grossly normal Skin no rashes or lesions noted, no wounds and No skin turgor normal General Skin Exam: pallor; Negative for elasticity normal or jaundice MDM MDM MDM Narrative Medical decision making narrative: Clinically patient is anemic. She does have erythema crease of the palms. Will obtain CBC to assess H&H as well as platelet count. Concern patient has thrombocytopenia since she has petechiae lower extremities. Patient's left naris was anesthetized using Maulik solution. A pack was placed on the left side. This controlled the bleeding. Patient been observed. Blood work was obtained to assess H&H, BUN to creatinine ratio, platelet count. Lab Data Attestation: I reviewed the patient's lab results. Lab results narrative: Patient has pancytopenia. H&H was 8.8 and 25.6 on September 19. H&H today is 6.1 and 18.4. This would explain her dyspnea with activity and conversational dyspnea. Platelet count is 7000. This would explain her petechiae. PT/INR is unremarkable. Labs: Laboratory Results - last 24 hr 10/02/25 10/02/25 12:20 16:38 WBC 2.5 L RBC 2.08 L Hgb 6.1 L Hct 18.4 L MCV 88.5 MCH 29.3 MCHC 33.2 RDW Std Deviation 43.8 RDW Coeff of Swapnil 13.6 Plt Count 7 L* MPV 8.9 Immature Gran % (Auto) 0.400 Neut % (Auto) 42.0 L Lymph % (Auto) 40.0 Sherman % (Auto) 16.8 H Eos % (Auto) 0.4 Baso % (Auto) 0.4 Absolute Neuts (auto) 1.1 L Absolute Lymphs (auto) 1.00 Nucleated RBC % 0 Differential Comment SCANNED Diff Path Review N/A Platelet Estimate MKD DEC PT 15.8 H INR 1.2 Sodium 133 Potassium 4.9 Chloride 101 Carbon Dioxide 21.7 Anion Gap 10 BUN 21 H Creatinine 0.75 Estim Creat Clear Calc 42.90 L Est GFR (MDRD) Non-Af 76 BUN/Creatinine Ratio 28.2 H Glucose 130 H Lactic Acid 3.0 H* 1.4 Calcium 9.4 Total Bilirubin 0.63 AST 18 ALT 11 Alkaline Phosphatase 89 Total Protein 6.7 Albumin 4.1 Globulin 2.6 Albumin/Globulin Ratio 1.6 Blood Type B POSITIVE Antibody Screen NEGATIVE Crossmatch See Detail EKG Initial EKG: Attestation: I personally reviewed and interpreted this EKG as follows: Interpretation: Sinus Rhythm (Rate is 80. The EKG was normal. OR interval is under 50 ms. Cures duration 68 ms. QT duration 354 ms. Chancellor normal. This was obtained to assess for any ischemia.) Prior: Unchanged Treatment and Re-Evaluation :: Patient was typed and crossed for 1 unit of blood. She also was ordered 1 pack of platelets. Patient's nosebleed was controlled with anterior pack on the left. This was placed by me. Reflex lactate is pending. If this remains elevated she will need admission. Will discuss case with evening physician. If lactate is normal patient can be treated as an outpatient to follow-up with ENT. She will need to be placed on antibiotics. She has allergy to sulfa. Therefore we will write for amoxicillin. Comments:: Repeat lactate is 1.4. This is normal. Plan is to discharge after patient receives platelets. Discharge Plan Triage Chief Complaint: Weakness ED Provider: Rafa Rees Dx/Rx/DC Orders Clinical Impression: Thrombocytopenia, Petechiae, Acute anterior epistaxis, Symptomatic anemia, Signs and symptoms of anemia, Neutropenia Instructions: Thrombocytopenia, ED Anemia, Type Not Specified (Adult), ED Epistaxis (Adult) Prescriptions: New amoxicillin 500 mg tablet 500 mg PO TID Qty: 15 0RF No Action atorvastatin 10 mg tablet 10 mg PO QHS metformin 500 mg tablet 500 mg PO BID ferrous sulfate 27 mg iron tablet 65 mg PO DAILY losartan 25 mg tablet 25 mg PO DAILY folic acid 1 mg tablet 1 mg PO BID leucovorin calcium 10 mg tablet 20 mg PO Q6H 30 Days Qty: 240 0RF dorzolamide-timolol 22.3-6.8 mg/mL drops 1 drp ophthalmic (eye) BID Rocklatan 0.02-0.005 % drops 1 drp ophthalmic (eye) QHS cyanocobalamin (vitamin B-12) 1,000 mcg tablet 1,000 mcg PO DAILY Qty: 30 10RF Primary Care Provider: Fitz Walters Referrals: Cal Willingham MD [Med Staff - Active Staff, Ear Nose Throat (ENT)] - 3-5 Days Fitz Walters MD [Primary Care Provider, Internal Medicine] - 1 Week Activity Restrictions/Additional Instructions: You will need to have a repeat blood count, CBC, by Dr. Fitz Walters in 5 to 7 days. Print Language: [place] Disposition Disposition: Home, Self Care
[2025-10-02 18:09] LABS: Mucous, Urine 0 SEEN /hpf (<or=2+); Red Blood Cells-Urine 0 SEEN /hpf (0-5); Squamous Epithelial Cells - UA 0 SEEN /hpf (5-10)
[2025-10-02 18:19] LABS: Color, Urine Yellow (Yellow); Glucose, Dipstick Normal (Normal); Ketone-Dipstick Negative (Negative); Leukocyte Esterase-Dipstick 500 /ul (Negative); Nitrite-Dipstick Positive (Negative); Occult Blood-Urine 50 /ul (Negative); Protein-Dipstick 30 mg/dl (Negative); Specific Gravity, Urine 1.015 (1.002-1.030); Urine Bilirubin Dipstick Negative (Negative)
--- NOTE | 2025-10-02 20:05 | PCM.HP.STD ---
HPI - General General Date of Admission: 10/02/25 Date of Service: 10/02/25 Chief Complaint: Epistaxis HPI Narrative YANN BELTRAN, is a 89 F who presented to emergency department at [facility] on 10/02/2025 due to severe epistaxis. Patient had a recent admission here from 09/17-09/19 for the same. At that time she was found to be pancytopenic and it was felt that this was may be related to methotrexate toxicity. The admitting physician did talk to [facility] hematology/oncology and they agreed and recommended stopping the methotrexate with outpatient follow-up. It does not yet appear she has had outpatient follow-up. Today she represented to the emergency department due to recurrence of epistaxis. She had been bleeding throughout the night prior to presentation and developed conversational dyspnea, dyspnea with exertion and ongoing epistaxis. Her bleeding has now stopped. She has a Rhino Rocket in place. No specific complaints at this time. Vital signs on presentation showed a temperature of 97.2, heart rate 79, respiratory 18, blood pressure was 119/57 and pulse ox was 91% on room air. CBC showed a pancytopenia with a white count of 2.5, hemoglobin was 6.1, platelet count was 7000. Coags PT 15.8 and INR of 1.2. CMP is overtly unremarkable. Lactic acid 3.0 with a repeat of 1.4. UA is consistent with infection. CXR showed no acute abnormality. Urine culture was sent. She was transfused 1 u PRBC and a 5 pack of platelets in the ED and the case was d/w hematology who will see the patient tomorrow in consult. [facility] Medical History Campylobacter gastroenteritis Gastritis Enteritis Colitis Hypomagnesemia Acute metabolic encephalopathy Fever Dehydration Hyponatremia Nausea and vomiting Mild cognitive impairment Acute hyponatremia Cellulitis Cat bite of right lower leg with infection Rheumatoid arthritis Former tobacco use HTN (hypertension) HLD (hyperlipidemia) Irritable bowel syndrome (IBS) Hives High triglycerides Migraines Glaucoma Diabetes mellitus Cataracts, bilateral Arthritis Home Medications Medication Instructions Recorded Last Taken Type atorvastatin 10 mg tablet 10 mg PO QHS cholesterol 06/01/22 10/01/25 History metformin 500 mg tablet 500 mg PO BID diabetes 06/01/22 10/02/25 History ferrous sulfate 27 mg iron tablet 65 mg PO DAILY supplement 10/29/22 10/02/25 History folic acid 1 mg tablet 1 mg PO BID supplement 10/29/22 10/02/25 History losartan 25 mg tablet 25 mg PO DAILY blood pressure 10/29/22 10/02/25 History dorzolamide 22.3 mg-timolol 6.8 1 drp ophthalmic (eye) BID eye 05/10/25 10/02/25 History mg/mL eye drops health netarsudil 0.02 %-latanoprost 1 drp ophthalmic (eye) QHS eye 05/10/25 10/01/25 History 0.005 % eye drops ([facility]) [facility] cyanocobalamin (vitamin B-12) 1,000 mcg PO DAILY vitamin #30 tabs 07/09/25 10/02/25 Rx 1,000 mcg tablet leucovorin calcium 10 mg tablet 20 mg (2 x 10 mg) PO Q6H ANEMIA 30 09/19/25 Unknown Rx days #240 tabs amoxicillin 500 mg tablet 500 mg PO TID #15 tabs 10/02/25 Unknown Rx methotrexate sodium 2.5 mg tablet 15 mg PO WE arthritis 10/02/25 Unknown History Allergy/AdvReac Type Severity Reaction Status Date / Time Sulfa (Sulfonamide AdvReac Intermediate Hives Verified 10/02/25 11:46 Antibiotics) Family History Father Gallstones BPH (benign prostatic hyperplasia) Mother Alzheimer dementia Surgical History History of bilateral tubal ligation History of bladder repair surgery Social History household members: family Smoking Status: Former smoker how long ago did patient quit smoking: Smoked 40 years, started 19 until quit, ~ 1 ppd. alcohol intake: never substance use type: does not use caffeine: Yes Type: coffee Number of servings: 1 what type of physical activity do you participate in: none rancho/latter day: Religious seatbelt use: always ROS Constitutional Constitutional: Reports fatigue, malaise and weakness; Denies anorexia, change in weight, chills, fever(s), night sweats or other Eyes Eyes: Denies blurry vision, change in eye color, change in vision, discharge from eye(s), double vision, erythema, eye pain, loss of vision or other ENT HEENT: Denies abnormal hearing, dysphagia, ear pain, epistaxis, headache(s), hearing loss, nasal congestion, nasal discharge, post nasal drip, sinus pressure, sore throat or other Cardiovascular Cardiovascular: Reports dyspnea on exertion; Denies chest pain, claudication, edema, lightheadedness, orthopnea, palpitations, paroxysmal nocturnal dyspnea, rapid heart rate, syncope or other Respiratory/Chest Respiratory/Chest: Reports shortness of breath with exertion; Denies cough, dyspnea, excessive phlegm production, hemoptysis, productive cough, shortness of breath at rest, wheezing or other Gastrointestinal Gastrointestinal: Denies abdominal pain, coffee ground emesis, constipation, diarrhea, dyspepsia, hematemesis, hematochezia, loose stools, melena, nausea, vomiting or other Genitourinary Genitourinary: Reports dysuria and urinary frequency; Denies burning urination, difficulty urinating, hematuria, nocturia, urinary hesitancy, urinary incontinence, urinary urgency or other Musculoskeletal Musculoskeletal: Reports joint pain and joint stiffness; Denies arthralgias, back pain, joint swelling, myalgias, neck pain or other Neurologic Neurologic: Denies abnormal gait, abnormal speech, confusion, disequilibrium, dizziness, focal weakness, headache(s), numbness, paresthesias, seizure-like activity, seizures, syncope, tingling, tremor(s) or other Psychiatric Psychiatric: Denies anxiety, depression, homicidal ideation, suicidal ideation or other Endocrine Endocrinology: Denies change in body appearance, cold intolerance, excessive sweating, heat intolerance, polydipsia, polyuria or other Hematologic/Lymphatic Hematologic/Lymphatic: Reports anemia, easy bleeding and easy bruising; Denies lymphadenopathy or other Allergic/Immunologic Allergic/Immunologic: Denies rhinitis, hives, eczemia, asthma or other Vital Signs Vital Signs Vital Signs: 10/02/25 11:44 10/02/25 12:08 10/02/25 12:25 Temperature 97.2 F L Temperature Source Oral Pulse Rate 79 77 Respiratory Rate 18 20 H Respiratory Effort Normal Respiratory Pattern Normal Blood Pressure 119/57 L Blood Pressure Mean 77 Blood Pressure Source Blood Pressure Location Pulse Ox 91 92 Oxygen Delivery Method Room Air 10/02/25 12:30 10/02/25 12:45 10/02/25 13:00 Temperature Temperature Source Pulse Rate 77 78 89 Respiratory Rate 16 19 H 23 H Respiratory Effort Respiratory Pattern Blood Pressure 115/75 103/76 Blood Pressure Mean 88 81 Blood Pressure Source Blood Pressure Location Pulse Ox 90 Oxygen Delivery Method 10/02/25 13:15 10/02/25 13:30 10/02/25 13:48 Temperature Temperature Source Pulse Rate 81 79 82 Respiratory Rate 23 H 17 Respiratory Effort Respiratory Pattern Blood Pressure 132/100 H Blood Pressure Mean 112 Blood Pressure Source Blood Pressure Location Pulse Ox Oxygen Delivery Method 10/02/25 13:50 10/02/25 13:52 10/02/25 14:00 Temperature 97.7 F L Temperature Source Oral Pulse Rate 79 79 78 Respiratory Rate 18 17 20 H Respiratory Effort Respiratory Pattern Blood Pressure 124/106 H 134/100 H 124/64 H Blood Pressure Mean 114 111 82 Blood Pressure Source Monitor Blood Pressure Location Right Arm Pulse Ox 100 100 Oxygen Delivery Method Room Air 10/02/25 14:00 10/02/25 14:14 10/02/25 14:15 Temperature 97.9 F Temperature Source Oral Pulse Rate 78 77 76 Respiratory Rate 19 H 21 H 20 H Respiratory Effort Respiratory Pattern Blood Pressure 124/64 H 109/54 L 109/54 L Blood Pressure Mean 84 71 72 Blood Pressure Source Monitor Blood Pressure Location Pulse Ox 100 97 Oxygen Delivery Method Room Air 10/02/25 14:15 10/02/25 14:30 10/02/25 14:45 Temperature Temperature Source Pulse Rate 78 80 74 Respiratory Rate 19 H 18 20 H Respiratory Effort Respiratory Pattern Blood Pressure 102/64 Blood Pressure Mean 75 Blood Pressure Source Blood Pressure Location Pulse Ox 100 Oxygen Delivery Method 10/02/25 15:00 10/02/25 15:15 10/02/25 15:30 Temperature Temperature Source Pulse Rate 83 86 81 Respiratory Rate 18 17 21 H Respiratory Effort Respiratory Pattern Blood Pressure 107/71 122/60 H Blood Pressure Mean 83 79 Blood Pressure Source Blood Pressure Location Pulse Ox 100 Oxygen Delivery Method 10/02/25 15:45 10/02/25 16:00 10/02/25 16:15 Temperature Temperature Source Pulse Rate 74 81 79 Respiratory Rate 21 H 21 H 24 H Respiratory Effort Respiratory Pattern Blood Pressure 119/68 Blood Pressure Mean 83 Blood Pressure Source Blood Pressure Location Pulse Ox 100 100 100 Oxygen Delivery Method 10/02/25 16:30 10/02/25 16:31 10/02/25 16:45 Temperature Temperature Source Pulse Rate 99 83 84 Respiratory Rate 18 24 H 21 H Respiratory Effort Respiratory Pattern Blood Pressure 142/89 H Blood Pressure Mean 104 Blood Pressure Source Blood Pressure Location Pulse Ox 100 100 Oxygen Delivery Method 10/02/25 16:56 10/02/25 17:03 10/02/25 17:03 Temperature 98.1 F Temperature Source Oral Pulse Rate 80 87 90 Respiratory Rate 18 21 H 23 H Respiratory Effort Respiratory Pattern Blood Pressure 133/69 H 133/69 H Blood Pressure Mean 86 90 Blood Pressure Source Monitor Blood Pressure Location Right Arm Pulse Ox 100 100 Oxygen Delivery Method Room Air 10/02/25 17:15 10/02/25 17:30 10/02/25 17:45 Temperature Temperature Source Pulse Rate 74 70 81 Respiratory Rate 17 20 H 22 H Respiratory Effort Respiratory Pattern Blood Pressure Blood Pressure Mean Blood Pressure Source Blood Pressure Location Pulse Ox 100 100 100 Oxygen Delivery Method 10/02/25 18:04 10/02/25 18:15 10/02/25 18:30 Temperature Temperature Source Pulse Rate 85 85 80 Respiratory Rate 21 H 21 H 15 Respiratory Effort Respiratory Pattern Blood Pressure Blood Pressure Mean Blood Pressure Source Blood Pressure Location Pulse Ox 100 100 98 Oxygen Delivery Method 10/02/25 18:39 10/02/25 18:39 10/02/25 18:43 Temperature 98.4 F 98.4 F Temperature Source Oral Oral Pulse Rate 84 76 77 Respiratory Rate 18 21 H 18 Respiratory Effort Respiratory Pattern Blood Pressure 129/72 H 129/72 H 129/72 H Blood Pressure Mean 91 91 91 Blood Pressure Source Blood Pressure Location Pulse Ox 100 100 100 Oxygen Delivery Method Room Air Room Air 10/02/25 18:45 10/02/25 18:57 10/02/25 18:58 Temperature 97.9 F Temperature Source Oral Pulse Rate 82 81 88 Respiratory Rate 24 H 21 H 19 H Respiratory Effort Respiratory Pattern Blood Pressure 125/85 H 125/85 H Blood Pressure Mean 95 98 Blood Pressure Source Monitor Blood Pressure Location Pulse Ox 99 100 100 Oxygen Delivery Method Room Air 10/02/25 19:00 10/02/25 19:15 10/02/25 19:30 Temperature Temperature Source Pulse Rate 109 H 89 82 Respiratory Rate 23 H 23 H 22 H Respiratory Effort Respiratory Pattern Blood Pressure 128/68 H Blood Pressure Mean 84 Blood Pressure Source Blood Pressure Location Pulse Ox 97 100 100 Oxygen Delivery Method 10/02/25 19:41 Temperature 97.8 F Temperature Source Oral Pulse Rate 79 Respiratory Rate 19 H Respiratory Effort Respiratory Pattern Blood Pressure 121/71 H Blood Pressure Mean 87 Blood Pressure Source Monitor Blood Pressure Location Pulse Ox 100 Oxygen Delivery Method Weight Weight: 61.6 kg Body Mass Index (BMI) 22.6 Physical Exam Const alert, oriented x3, no apparent distress and average body habitus Constitutional Narrative: Elderly, white female, sitting up in bed eating dinner, daughter at bedside, appears comfortable, nontoxic appearing General Appearance: cooperative HEENT normocephalic, head/scalp atraumatic and moist oral mucous membranes; Negative for hearing grossly normal bilaterally HEENT Narrative: moderate hearing loss, dentition is poor, no thrush, Rhinorocket in L nares with dried blood around B nares Eyes EOMs intact bilaterally; Negative for conjunctivae normal Eyes Narrative: pale conjunctiva B, no scleral icterus Neck supple Neck Narrative: trachea midline, no LAD Resp normal respiratory effort, no retractions, no use of accessory muscles and No clear to auscultation bilaterally Resp Narrative: diffusely diminished, few scattered wheezes end expiratory Auscultation: wheezes; Negative for crackles or rhonchi Cardio regular rate, regular rhythm, S1 normal heart sound, S2 normal heart sound, no murmurs, no rub, no gallops and no clicks GI normal to inspection, nondistended, normoactive bowel sounds, soft to palpation and non-tender Extremity no clubbing, cyanosis or edema Extremity Narrative: 2+ pedal pulses Skin no rashes or lesions noted, no wounds, skin turgor normal, no jaundice, No no petechiae and no mottling Skin Narrative: petechiae B UE and LE Neuro oriented x3, moves all extremities and no focal motor deficits Neuro Narrative: generalized weakness noted but no focal deficits Speech: speech normal Psych affect normal Psych Narrative: very pleasant, eye contact is good Results Lab / Micro Data 10/02/25 12:20 10/02/25 12:20 Labs: Laboratory Results - last 24 hr 10/02/25 12:20: WBC 2.5 L, RBC 2.08 L, Hgb 6.1 L, Hct 18.4 L, MCV 88.5, MCH 29.3, MCHC 33.2, RDW Std Deviation 43.8, RDW Coeff of Sw[place] 13.6, Plt Count 7 L*, MPV 8.9, Immature Gran % (Auto) 0.400, Neut % (Auto) 42.0 L, Lymph % (Auto) 40.0, [place] % (Auto) 16.8 H, Eos % (Auto) 0.4, Baso % (Auto) 0.4, Absolute Neuts (auto) 1.1 L, Absolute Lymphs (auto) 1.00, Nucleated RBC % 0, Differential Comment SCANNED, Diff Path Review N/A, Platelet Estimate MKD DEC, PT 15.8 H, INR 1.2, Sodium 133, Potassium 4.9, Chloride 101, Carbon Dioxide 21.7, Anion Gap 10, BUN 21 H, Creatinine 0.75, Estim Creat Clear Calc 42.90 L, Est GFR (MDRD) Non-Af 76, BUN/Creatinine Ratio 28.2 H, Glucose 130 H, Lactic Acid 3.0 H*, Calcium 9.4, Total Bilirubin 0.63, AST 18, ALT 11, Alkaline Phosphatase 89, Total Protein 6.7, Albumin 4.1, Globulin 2.6, Albumin/Globulin Ratio 1.6, Blood Type B POSITIVE, Antibody Screen NEGATIVE, Crossmatch See Detail 10/02/25 16:38: Lactic Acid 1.4 10/02/25 18:05: Urine Color Yellow, Urine Clarity Cloudy, Urine pH 6.0, Ur Specific [place] 1.015, Urine Protein 30 H, Urine Glucose (UA) Normal, Urine Ketones Negative, Urine Occult Blood 50 H, Urine Nitrite Positive H, Urine Bilirubin Negative, Urine Urobilinogen 1 H, Ur Leukocyte Esterase 500 H, Urine RBC 0 SEEN, Urine WBC >100 SEEN, Ur Squamous Epith Cells 0 SEEN, Urine Bacteria 0 SEEN, Urine Mucus 0 SEEN Assessment & Plan Assessment/Plan (1) Epistaxis: (2) Lactic acidosis: (3) Abnormal finding on urinalysis: (4) Generalized weakness: PLAN: Plan Epistaxis - resolved at the time of admission - Rhinorocket in place--> L nares - suspect manifestation of thrombocytopenia - continue to monitor closely - may need ENT after d/c for cautery Severe Pancytopenia - lab in 08/09 was WNL and first noted to be abnormal on 09/17/2025 in ED here when she presented for epistaxis - was felt to be related to methotrexate toxicity at last admission-->09/17-09/19 - Methotrexate has been on hold - doubt all a manifestation of ABLA from above - concerned about MFD/MDS - perismear ordered - check BMAB - transfuse 5 pack of plts and 2 U of blood - repeat counts in am - Continue leucovorin for now -Continue iron supplementation - check ESR/CRP - Consult Heme Suspected UTI - pt with dysuria and abnormal UA - culture sent and pending - start CTX 1 gm q 24 hrs--> previous cx reviewed and no noted resistance patterns Lactic acidosis -likely related to profound anemia 3.0-->1.4 on repeat -resolved quickly -no reason to follow further Generalized weakness - Likely related to pancytopenia with profound anemia - 2 units packed red blood cells pending - Should improve generalized weakness overall - PT/OT consultation - Case management/social work consultation for assistance with discharge planning in the event patient would need home health for placement History of gastritis - Patient had recent EGD on 07/18/2025 - Negative for H. pylori - Monitor clinically as patient takes nothing for this at this time Essential hypertension - Continue home losartan - As needed hydralazine for systolic blood pressure greater than 160 - Blood pressure control is essential as this will also help reduce epistaxis Hyperlipidemia/triglyceridemia - Continue home atorvastatin DM-2 - Patient on metformin will hold while hospitalized - SSI with Accu-Cheks as ordered - Regular diet as patient seems to be somewhat malnourished RA - Methotrexate on hold - Continue folic acid - outpt follow-up Glaucoma - Continue eyedrops History of SIADH - Sodium is currently stable - Trend with labs History of tobacco abuse - Remote next-no current use DVT prophylaxis - Hold chemoprophylaxis for now given severe thrombocytopenia and anemia - SCDs CODE STATUS - DNR CCA okay for short-term intubation per discussion with patient and daughter on admission Charges/Coding Visit Charges Inpatient E&M: 72101 Init Hosp L3
--- OUTSIDE RECORDS SUMMARY | 2025-10-02 21:18 | XMS RPT_ITS | CCD ---
Author Organization [facility] Care Team Providers Care Bass String Winder Name Role Phone Fitz Walters MD Primary [...] Fitz Walters MD Primary Care Provider Corin TURN LASTER.FLAGSETTER, Sandra M Unavailable Romeo RITCHIE, Dr. Byrnes Primary Care Provider Lizet RITCHIE, Dr. Dang Attending Provider Lizet RITCHIE, Dr. Dang Referring Provider Romeo RITCHIE, Dr. Byrnes Primary Care Provider Lizet RITCHIE, Dr. Dang Attending Provider Lizet RITCHIE, Dr. Dang Referring Provider Romeo RITCHIE, Dr. Byrnes Referring Provider Alondra RITCHIE, Dr. Schwarz Attending Provider Van MIGUEL, Dr. Manjarrez Referring Provider Van MIGUEL, Dr. Manjarrez Emergency Provider Bella RITCHIE, Dr. Misty Guerrero Attending Provider Bella RITCHIE, Dr. Misty uGerrero Admit Provider Bella RITCHIE, Dr. Misty Guerrero Other Provider Vernon MIGUEL, Dr. Zapata Attending Provider Vernon MIGUEL, Dr. Zapata Other Provider Romeo RITCHIE, Dr. Byrnes Primary Care Provider Lizet RITCHIE, Dr. Dang Attending Provider Lizet RITCHIE, Dr. Dang Referring Provider Dr. Josseline Araujo DO Referring Provider Nestor MIGUEL, Dr. Butler Emergency Provider de Nathanael MIGUEL, Dr. Rey Admit Provider Unavail able de Nathanael MIGUEL, Dr. Rey Attending Provider Unav ailable Dr. Luke Baez DO Emergency Provider de Nathanael MIGUEL, Dr. Rey Admit Provider Unavail able de Nathanael MIGUEL, Dr. Rey Other Provider Unavail able Bladimir RITCHIE, Dr. Salgado Other Provider Dr. Steve Alvarez DO Other Provider Kenny RITCHIE, Dr. Sanchez Other Provider [phone] Dr. Adrian Hanson DO Other Provider Bishnu NEWS COPY EDITOR-CMarbella Other Provider Gaurang NEWS COPY EDITOR-CLaurence Other Provider Catarina Schwarz Other Provider Kim MIGUEL, Dr. Wilson Attending Provider Gaurang NEWS COPY EDITOR-CLaurence Attending Provider Valentin MIGUEL, Dr. Campbell Attending Provider SANDRA COOMBS Attending Unavailable WALTERS, KAREN Primary Care Unavailable CORINSANDRA ARORA Referring Unavailable WALTERS, KAREN Primary Care Unavailable WALTERS, KAREN Attending Unavailable WALTERS, KAREN Primary Care Unavailable WALTERS, KAREN Referring Unavailable WALTERS, KAREN Primary Care Unavailable TESTANGELINA RAZA Attending Unavailable TESTRAANGELINA DEL ANGEL Referring Unavailable WALTERS, KAREN Primary Care Unavailable WALTERS, KAREN Primary Care Unavailable KENZIE ANAYA Attending Unavailable WALTERS, KAREN Primary Care Unavailable CAL SHELDON Attending Unavailable WALTERS, KAREN Referring Unavailable WALTERS, KAREN Primary Care Unavailable CORINSANDRA BARKER Attending Unavailable CORINSANDRA BARKER Referring Unavailable WALTERS, KAREN Primary Care Unavailable TESTANGELINA RAZA Attending Unavailable SELF Referring Unavailable WALTERS, KAREN Primary Care Unavailable Adrian Hanson Attending Unavailable Walters, Fitz Primary Care Unavailable Benny Junior Referring Unavailable VellanLaurence monique Attending Unavailable Laurence Hinds Referring Unavailable Walters, Fitz Primary Care Unavailable Candido Quiroga Consulting Unavailable Adrian Hanson Referring Unavailable Laurence Merlos Attending Unavailable Candido Quiroga Admitting Unavailable Walters, Fitz Primary Care Unavailable Damian Garrison Consulting Unavailable Steve Alvarez Consulting Unavailable Daniel Cox Consulting Unavailable Adrian Hanson Consulting Unavailable aMrbella Goetz Consulting Unavailable Laurence Merlos Consulting Unavailable Catarina Ruggiero Consulting Unavailable Benny Junior Consulting Unavailable Candido Quiroga Attending Unavailable Luke Baez Referring Unavailable Godman, Josseline Referring Unavailable White, Misty L Consulting Unavailable Walters, Fitz Primary Care Unavailable Bella Misty L Admitting Unavailable Benny Junior Attending Unavailable Candido Quiroga Consulting Unavailable Walters, Fitz Primary Care Unavailable Candido Quiroga Admitting Unavailable Benny Junior Attending Unavailable Damian Garrison Consulting Unavailable Steve Alvarez Consulting Unavailable Daniel Cox Consulting Unavailable Adrian Hanson Consulting Unavailable Marbella Goetz Consulting Unavailable Laurence Merlos Consulting Unavailable Catarina Ruggiero Consulting Unavailable Raymundolanki, Laurence Attending Unavailable Walters, Fitz Primary Care Unavailable Vellanki, Laurence Referring Unavailable Walters, Fitz Primary Care Unavailable Jessica Maharaj Attending Unavailable Candido Quiroga Referring Unavailable Kenzie Nathan Attending Unavailable Walters, Fitz Primary Care Unavailable Steve Alvarez Attending Unavailable Luke Smith Attending Unavailable Sarah Luke Consulting Unavailable Jopperi, Luke Admitting Unavailable Walters, Fitz Primary Care Unavailable Luke Smith Attending Unavailable Jopperi, Luke Consulting Unavailable Jopperi, Luke Admitting Unavailable Walters, Fitz Primary Care Unavailable Walters, Fitz Primary Care Unavailable Chong Cantu Attending Unavailable Walters, Fitz Referring Unavailable Godman, Josseline Referring Unavailable WhiteMisty Attending Unavailable Walters, Fitz Primary Care Unavailable Godman, Josseline Referring Unavailable White, Misty L Admitting Unavailable White, Misty L Consulting Unavailable Walters, Fitz Primary Care Unavailable Benny Junior Attending Unavailable Benny Junior Consulting Unavailable Benny Junior Attending Unavailable Vellanki, Laurence Attending Unavailable Vellanki, Laurence Referring Unavailable Walters, Fitz Primary Care Unavailable Jopperi, Luke Admitting Unavailable Jopperi, Luke Attending Unavailable Walters, Fitz Primary Care Unavailable Joe Banegas Attending Unavailable Vellanki, Laurence Attending Unavailable Vellanki, Laurence Referring Unavailable Walters, Fitz Primary Care Unavailable Allergies Allergy Classification Reported Allergen(s) Allergy Type Date of Onset Reaction(s) Facility Sulfur (1 source) Sulfur Drug Allergy 12-24-200 7 [facility] (20 sources) Sulfur; Translations: [SULFUR] Drug Allergy 7 [facility] (17 sources) Sulfonamides (Antibiotic); Translations: [Sulfa (Sulfonamide Antibiotics)] Propensity to adverse reactions 2 [facility] Medications Current Medications Medication Drug Class(es) Dates Sig (Normalized) Sig (Original) aspirin 81 mg delayed release oral tablet (20 sources) Platelet Aggregation Inhibitor, Nonsteroidal Anti-inflammatory Drug Start: 06-01-2022 Aspirin (Adult Low Dose Aspirin) 81 mg tablet,delayed release (DR/EC) Active 81 mg PO DAILY June 01, 2022 12:00am heart health Start: 08-10-2006 ASPIRIN 81 MG TAB Indications: Type II or unspecified type diabetes mellitus without mention of complication, not stated as uncontrolled Take one (1) tablet daily . 0 08/10/2006 Active Comment on above: Take one (1) tablet daily . atorvastatin 10 mg oral tablet (20 sources) HMG-CoA Reductase Inhibitor Start: 2 End: 5 take 1 tablet by mouth once daily atorvastatin (LIPITOR) 10 mg tablet Indications: Hyperlipidemia, unspecified hyperlipidemia type Take 1 tablet by mouth once daily. 90 tablet 3 02/05/2025 Active Comment on above: Take 1 tablet by annette once daily. cyanocobalamin, vitamin B-12, (VITAMIN B12 ORAL) (16 sources) take 1 tablet by mouth once daily cyanocobalamin, vitamin B-12, (VITAMIN B12 ORAL) Take 1 tablet by mouth once daily. Active cyanocobalamin, vitamin B-12, (VITAMIN B12 ORAL) Take by mouth. Active cyanocobalamin, vitamin B-12, (VITAMIN B12 ORAL) Take by mouth. 0 Active Comment on above: Take by mouth. dorzolamide 20 mg/ml / timolol 5 mg/ml ophthalmic solution (20 sources) Carbonic Anhydrase Inhibitor, beta-Adrenergic Shalonda Start: 05-10-2025 Dorzolamide-Timolol 22.3-6.8 mg/mL drops Active 1 NMA OPHTHALMIC TWICE A DAY May 10, 2025 12:00am eye health Start: 02-23-2023 take 1 drop(s) into the [...] mg PO DAILY October 29, 2022 1:00am supplement Start: 10-29-2022 take 65 mg by mouth [...] oral tablet (20 sources) Start: 10-29-2022 take 2 tablets by mouth once daily Folic Acid 1 mg tablet Active 2 mg PO DAILY October 29, 2022 1:00am supplement Start: 10-29-2022 take 1 tablet by mouth once da estrella Folic Acid 1 mg tablet Active 1 mg PO DAILY October 29, 2022 1:00am Comment on above: Take 2 mg by mouth o nce daily. latanoprost 0.05 mg/ml / netarsudil 0.2 mg/ml ophthalmic solution (14 sources) Prostaglandin Analog, Rho Kinase Inhibitor Start: 05-10-2025 Netarsudil-Latanoprost (Rocklatan) 0.02-0.005 % drops Active 1 NMA OPHTHALMIC AT BEDTIME May 10, 2025 12:00am eye health Start: 11-25-2024 take 1 drop(s) into the eye(s) once daily at bedtime ROCKLATAN 0.02-0.005 % ophthalmic solution Use 1 Drop in both eyes daily at bedtime. 11/25/2024 Active losartan potassium 25 mg oral tablet (20 sources) Angiotensin 2 Receptor Shalonda Start: 04-04-2025 take 1 tablet by mouth once daily for hypertension losartan (COZAAR) 25 mg tablet Indications: Essential hypertension Take 1 tablet by mouth once daily. For high blood pressure. 90 tablet 3 04/04/2025 Active Start: 01-19-2022 End: 04-17-2024 take 1 tablet by mouth once daily Losartan 25 mg table t Active 25 mg PO DAILY October 29, 2022 1:00am blood pressure Comment on above: Take 1 tablet by annette once daily. For high blood pressure. metFORMIN hydrochloride 500 mg oral tablet (20 sources) Biguanide Start: End: take 1 tablet by mouth twice daily at mealtime metFORMIN (GLUCOPHAGE) 500 mg tablet Indications: Type 2 diabetes, controlled, with peripheral neuropathy (HCC) Take 1 tablet by mouth two times a day with meals. 180 tablet 3 02/05/2025 Active Comment on above: Take 1 tablet by annette th twice daily with meals. Take 1 tablet by annette th two times a day with meals. methotrexate 2.5 mg oral tablet (20 sources) Folate Analog Metabolic Inhibitor Start: Methotrexate Sodium 2.5 mg tablet Active 15 mg PO EVERY WEEK October 29, 2022 1:00am PT TAKES ON WEDNESDAYS Start: 10-29-2022 take 1 tablet by annette th every week Methotrexate Sodium 2.5 mg tablet Active 2.5 mg PO EVERY WEEK October 29, 2022 1:00am Start: 10-31-2021 methotrexate 2 .5 mg tablet 6 tabs once weekly 10/31/2021 Active Comment on above: 6 tabs once weekly 24 hr mirabegron 25 mg extended release oral tablet (12 sources) beta3-Adrenergic Agonist Start: 04-17-2025 mirabegron (MYRBETRIQ) 25 mg Tb24 daily at bedtime. 04/17/2025 Active Start: 04-17-2025 take 1 tablet by annette th every twenty-four hours at bedtime Mirabegron (Myrbetriq) 25 mg tablet extended release 24 hr Active 25 mg PO AT BEDTIME 30 April 17, 2025 12:00am bladder nitrofurantoin, macrocrystals 25 mg / nitrofurantoin, monohydrate 75 mg oral capsule (4 sources) Nitrofuran Antibacterial Start: 05-22-2023 End: 05-29-2023 take 1 capsule by mouth twice daily [...] Comment on above: Take 1 capsule by [facility] twice daily with meals for 7 days. pantoprazole 40 mg delayed release oral tablet (4 sources) Proton Pump Inhibitor Start: take 1 tablet by mouth once daily pantoprazole DR (PROTONIX) 40 mg tablet Take 1 tablet by mouth once daily. 07/18/2025 Active sodium chloride 1000 mg oral tablet (4 sources) Start: sodium chloride soluble tablet 1 g Indications: Hyponatremia 1 g three times a day. 07/18/2025 Active Start: 07-18-20[address] [facility] three times daily Sodium Chloride 1,000 mg Tablet,Soluble Active 1000 mg PO THREE TIMES A DAY 90 0 July 18, 2025 12:00am tacrolimus 0.001 mg/mg topical ointment (20 sources) Calcineurin Inhibitor Immunosuppressant Start: 05-03-2014 tacrolimus (PROTOPIC) 0.1 % ointment Apply 1 application to affected area as needed. 05/03/2014 Active Comment on above: Apply 1 application to affected area as needed. Completed/Discontinued Medications Medication Drug Class(es) Dates Sig (Normalized) Sig (Original) amoxicillin 875 mg / clavulanate 125 mg oral tablet (5 sources) Penicillin-class Antibacterial Start: 05-10-2025 End: 05-12-2025 Amoxicillin-Pot Clavulanate 875-125 mg tablet Discontinued 1 {tbl} PO TWICE A DAY May 10, 2025 12:00am May 12, 2025 10:33am calcium carbonate 600 mg / cholecalciferol 125 [...] by annette twice daily. For bone health. cefdinir 300 mg oral capsule (5 sources) Cephalosporin Antibacterial Start: 05-12-2025 End: 07-13-2025 take 1 capsule by mouth twice daily Cefdinir 300 mg capsule Discontinued 300 mg PO TWICE A DAY 10 0 May 12, 2025 12:00am July 13, 2025 11:14pm doxycycline hyclate 100 mg oral capsule (4 [...] on above: Take 1 capsule by mo [facility] twice daily. glipiZIDE er 2.5 mg 24 hr extended release oral tablet (20 sources) Sulfonylurea Start: 01-19-2022 End: 05-10-2025 take 1 tablet by mouth once daily Glipizide 2.5 mg tablet extended release 24hr Discontinued 2.5 mg PO DAILY October 29, 2022 1:00am May 10, 2025 7:31pm Comment on above: Take 1 tablet by annette daily with breakfast. latanoprost 0.05 mg/ml ophthalmic solution (12 sources) [...] once daily. lisinopril 10 mg oral tablet (16 sources) Angiotensin Converting Enzyme Inhibitor Start: 06-01-20 End: 10-29-20 take 1 tablet by mouth once daily Lisinopril 10 mg tablet Discontinued 10 mg PO DAILY June 01, 2022 12:00am October 29, 2022 5:41pm metroNIDAZOLE 250 mg oral tablet (5 sources) Nitroimidazole Antimicrobial Start: 05-12-20 End: 07-13-20 take 1 tablet by mouth three times daily Metronidazole 250 mg tablet Discontinued 250 mg PO THREE TIMES A DAY 15 May 12, 2025 12:00am July 13, 2025 11:15pm solifenacin succinate 10 mg oral tablet (7 sources) Cholinergic Muscarinic Antagonist Start: 06-03-20 End: 07-09-20 take 1 tablet by mouth once daily [...] on above: Take 1 tablet by annette once daily. tamsulosin hydrochloride 0.4 mg oral capsule (20 sources) alpha-Adrenergic Shalonda Start: 3 End: take 1 capsule by mouth at bedtime Tamsulosin 0.4 mg capsule Discontinued 0.4 mg PO AT BEDTIME 30 7 February 02, 2023 12:00am February 16, 2023 [...] daily. vitamin b12 1 mg oral tablet (20 sources) Vitamin B12 Start: 02-02-2023 End: 07-09-2025 take 1 tablet by mouth once daily Cyanocobalamin (Vitamin B-12) 1,000 mcg tablet Discontinued 1000 ug PO DAILY 30 June 08, 2024 4:30pm July 09, 2025 12:54pm Problems Active Problems Problem Classification Problem Date Documented Da te Episodic/Chronic Acquired foot deformities (1 source) Hammer toe; Translations: [Other hammer toe(s) (acquired), right foot] Chronic Chronic ulcer of skin (2 sources) Pressure ulcer of sacral region, stage 1; Translations: [Pressure ulcer, lower back] Onset: 5 07-23-2025 Chronic Complications of surgical procedures or medical care (1 source) Drug therapy finding; Translations: [Unspecified adverse effect of drug or medicament, initial encounter] Episodic Deficiency and other anemia (2 sources) Other pancytopenia; Translations: [Other pancytopenia] Onset: 5 Chronic Deficiency and other anemia (16 sources) Anemia; Translations: [Anemia, unspecified] 06-01-2022 Episodic Deficiency and other anemia (2 sources) Anemia, unspecified; Translations: [Anemia, unspecified] Episodic Diabetes mellitus with complications (20 sources) Type 2 diabetes mellitus; Translations: [Type 2 diabetes mellitus with diabetic polyneuropathy] Onset: 0 Resolved: 3 09-11-2015 Chronic Diseases of white blood cells (5 sources) Leukocytosis; Translations: [Elevated white blood cell count, unspecified] 05-10-2025 Chronic Disorders of lipid metabolism (20 sources) Hyperlipidemia; Translations: [Hyperlipidemia, unspecified] Onset: 7 03-12-2016 Chronic Essential hypertension (20 sources) Essential hypertension; Translations: [Essential (primary) hypertension] Onset: 5 09-11-2015 Chronic Fever of unknown origin (5 sources) Fever; Translations: [Fever, unspecified] Onset: 5 07-14-2025 Episodic Fluid and electrolyte disorders (20 sources) Hyperkalemia; Translations: [Hyperkalemia] Onset: Episodic Gastritis and duodenitis (3 sources) Gastritis; Translations: [Gastritis, unspecified, without bleeding] Onset: 5 07-14-2025 Episodic Genitourinary symptoms and ill-defined conditions (20 sources) Urge incontinence of urine; Translations: [Urge incontinence] Onset: 6 Resolved: 5 06-16-2016 Chronic Genitourinary symptoms and ill-defined conditions (20 sources) Nocturia; Translations: [Nocturia] Onset: 6 03-12-2016 Episodic Glaucoma (10 sources) Glaucoma; Translations: [Unspecified glaucoma] Onset: 3 05-25-2024 Chronic Immunizations and screening for infectious disease (5 sources) Vaccination needed; Translations: [Encounter for immunization] Onset: Episodic Intestinal infection (4 sources) Infectious gastroenteritis; Translations: [Campylobacter enteritis] Onset: 5 07-14-2025 Episodic Malaise and fatigue (17 sources) Fatigue; Translations: [Other fatigue] 02-02-2023 Episodic Mycoses (20 sources) Onychomycosis due to dermatophyte ; Translations: [Tinea unguium] Onset: 1 09-07-2011 Episodic Nausea and vomiting (7 sources) Nausea and vomiting; Translations: [Nausea with vomiting, unspecified] Onset: 5 05-10-2025 Episodic Noninfectious gastroenteritis (5 sources) Colitis; Translations: [Noninfective gastroenteritis and colitis, unspecified] Onset: 5 07-14-2025 Episodic Nutritional deficiencies (20 sources) Vitamin D deficiency; Translations: [Vitamin D deficiency, unspecified] Onset: 1 03-27-2011 Chronic Osteoarthritis (20 sources) Degenerative joint disease involving multiple joints; Translations: [Polyosteoarthritis, unspecified] Onset: 4 Resolved: 3 03-12-2016 Chronic Other congenital anomalies (20 sources) Congenital pes planus; Translations: [Congenital pes planus, unspecified foot] Onset: 0 10-23-2010 Chronic Other connective tissue disease (5 sources) Pain of toe of right foot; Translations: [Pain in right toe(s)] Episodic Other connective tissue disease (5 sources) Pain of toe of left foot; Translations: [Pain in left toe(s)] Episodic Other connective tissue disease (2 sources) Dysfunction of posterior tibial tendon of right foot; Translations: [Posterior tibial tendinitis, right leg] Episodic Other connective tissue disease (2 sources) Muscle weakness; Translations: [Muscle weakness (generalized)] 07-23-2025 Episodic Other connective tissue disease (1 source) Pain in right toe(s); Translations: [Pain in toe of right foot] Onset: 5 Episodic Other connective tissue disease (1 source) Pain in left toe(s); Translations: [Pain in toe of left foot] Onset: 5 Episodic Other connective tissue disease (1 source) Muscle weakness (generalized); Translations: [Muscular weakness] Onset: 5 Episodic Other gastrointestinal disorders (1 source) H/O: gastrointestinal disease; Translations: [Personal history of other diseases of the digestive system] 07-23-2025 Episodic Other gastrointestinal disorders (1 source) Personal history of other diseases of the digestive system; Translations: [History of gastroenteritis] Onset: 5 Episodic Other hereditary and degenerative nervous system conditions (20 sources) Impaired cognition; Translations: [Mild cognitive impairment, so stated] 06-01-2022 Chronic Other hereditary and degenerative nervous system conditions (5 sources) Mild cognitive impairment, so stated; Translations: [Mild cognitive impairment, so stated] Onset: 5 Chronic Other inflammatory condition of skin (20 sources) Psoriasis; Translations: [Other psoriasis] 09-08-2005 Chronic Other inflammatory condition of skin (1 source) Other psoriatic arthropathy; Translations: [Other psoriatic arthropathy] Onset: 5 Chronic Other lower respiratory disease (1 source) Other forms of dyspnea; Translations: [ORTEGA (dyspnea on exertion)] Onset: 5 Episodic Other nervous system disorders (20 sources) Polyneuropathy; Translations: [Polyneuropathy, unspecified] 06-01-2022 Chronic Other nervous system disorders (8 sources) Polyneuropathy, unspecified; Translations: [Unspecified hereditary and idiopathic peripheral neuropathy] Chronic Other nervous system disorders (4 sources) Metabolic encephalopathy; Translations: [Metabolic encephalopathy] 07-14-2025 Chronic Other nervous system disorders (1 source) Metabolic encephalopathy; Translations: [Metabolic encephalopathy] Onset: Chronic Other nervous system disorders (20 sources) Abnormal gait; Translations: [Unsteadiness on feet] Episodic Other nervous system disorders (6 sources) Unspecified abnormalities of gait and mobility; Translations: [Abnormality of gait] Episodic Other nervous system disorders (1 source) H/O: brain disorder; Translations: [Personal history of other diseases of the nervous system and sense organs] 07-23-2025 Episodic Other nervous system disorders (1 source) Personal history of other diseases of the nervous system and sense organs; Translations: [History of encephalopathy] Onset: Episodic Other nutritional; endocrine; and metabolic disorders (15 sources) Hypercalcemia; Translations: [Hypercalcemia] Chronic Other nutritional; endocrine; and metabolic disorders (2 sources) Hypercalcemia; Translations: [Hypercalcemia] 02-16-2023 Chronic Other nutritional; endocrine; and metabolic disorders (3 sources) Hypomagnesemia; Translations: [Hypomagnesemia] 07-14-2025 Chronic Other nutritional; endocrine; and metabolic disorders (2 sources) Hypomagnesemia; Translations: [Hypomagnesemia] Onset: Chronic Other skin disorders (3 sources) Foot callus; Translations: [Corns and callosities] 01-13-2024 Episodic Other skin disorders (1 source) Corns and callosities; Translations: [Callus of foot] Onset: Episodic Other upper respiratory disease (1 source) Epistaxis; Translations: [Epistaxis] Onset: Episodic Residual codes; unclassified (2 sources) Altered mental status; Translations: [Altered mental status, unspecified] 07-13-2025 Episodic Residual codes; unclassified (1 source) Bilateral lower limb edema; Translations: [Localized edema] 07-23-2025 Episodic Residual codes; unclassified (1 source) Localized edema; Translations: [Edema of both legs] Onset: 5 Episodic Residual codes; unclassified (1 source) Altered mental status, unspecified; Translations: [Altered mental status, unspecified] Onset: 5 Episodic Retinal detachments; defects; vascular occlusion; and retinopathy (11 sources) Exudative age-related macular degeneration; Translations: [Exudative age-related macular degeneration, bilateral, with active choroidal neovascularization] Onset: 4 05-25-2024 Chronic Skin and subcutaneous tissue infections (20 sources) Cellulitis and abscess of toe; Translations: [Cellulitis of unspecified toe] Onset: 1 Resolved: 1 10-06-2011 Episodic Unclassified (1 source) Have your PCP recheck your sodium Unclassified (1 source) Hospital F/U Onset: 5 Urinary tract infections (2 sources) Acute cystitis; Translations: [Acute cystitis with hematuria] Onset: 5 Episodic Past or Other Problems Problem Classification Problem Date Documented Da te Episodic/Chronic Acquired foot deformities (20 sources) Acquired deformity of toe; Translations: [Other deformities of toe(s) (acquired), unspecified foot] Onset: 0 Resolved: 5 11-01-2013 Episodic Adjustment disorders (11 sources) 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ssed mood; Translations: [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ssed mood] Onset: 6 Resolved: 1 10-31-2021 Chronic E Codes: Natural/environment (1 source) Bitten by cat, initial encounter; Translations: [Bitten by cat, initial encounter] Onset: 5 Episodic Gastrointestinal hemorrhage (11 sources) Lower gastrointestinal hemorrhage; Translations: [Gastrointestinal hemorrhage, unspecified] Onset: 4 Resolved: 5 09-11-2015 Episodic Open wounds of extremities (12 sources) Cat bite - wound; Translations: [Open bite, right lower leg, initial encounter] Onset: 5 05-10-2025 Episodic Other connective tissue disease (11 sources) Pain in limb; Translations: [Pain in unspecified limb] Onset: 5 Resolved: 6 08-10-2006 Episodic Other connective tissue disease (11 sources) Nontraumatic rupture of extensor tendon of hand and wrist; Translations: [Spontaneous rupture of extensor tendons, unspecified hand] Onset: 5 Resolved: 6 08-10-2006 Episodic Other ear and sense organ disorders (11 sources) Tinnitus; Translations: [Tinnitus] Onset: 7 Resolved: 2 04-07-2012 Episodic Other nervous system disorders (11 sources) Neuropathy; Translations: [Polyneuropathy, unspecified] Onset: 0 Resolved: 5 09-11-2015 Chronic Results Test Name Value Interpretation Reference Range Facility L3300.3400on 09-21-2025 Methotrexate < 0.02 Low 0.02-5.00 [facility] Comment on above: Result Comment: Pote ntially Toxic Ranges: After 24hr >5.00 After 48hr >0.50 After 72hr >0.05 Detection Limit = 0.02 This test was developed and its performance characteristics determined by [facility]. It has not been cleared or approved by the Food and Drug Administration.Performed at: [address] [id number] Director: Panda Johnson MD, Phone: [phone] Performed By: #### L 3300.3400 ####[facility] [address] [place], [address] Basic Metabolic Profile (BMP )on 09-19-2025 BUN/CRE 25.0 RATIO High 10-20 [facility] Comment on above: Performed By: #### L 500.2500, L100.0100 ####[facility] [address] [place], [place], [address] Calcium [Mass/Vol] 9.2 mg/dL Normal 7.6-11.0 [facility] Comment on above: Performed By: #### L 500.2500, L100.0100 ####[facility] [address] [place], [address] Chloride [Moles/Vol] 103 mmol/L Normal 98-108 [facility] Comment on above: Performed By: #### L 500.2500, L100.0100 ####[facility] [address] [place], [address] CO2 [Moles/Vol] 22.5 mmol/L Normal 21.0-32.0 [facility] Comment on above: Performed By: #### L 500.2500, L100.0100 ####[facility] [address] [place], [address] Creatinine [Mass/Vol] 0.66 mg/dL Low 0.70-1.20 [facility] Comment on above: Performed By: #### L 500.2500, L100.0100 ####[facility] [address] [place], [address] ECRCL 42.90 ml/min Low 50-250 [facility] Comment on above: Performed By: #### L 500.2500, L100.0100 ####[facility] [address] [place], [address] GAP 9 Normal 5-15 [facility] Comment on above: Performed By: #### L 500.2500, L100.0100 ####[facility] [address] [place], [address] GFR/1.73 sq M.predicted among non-blacks MDRD (S/P/Bld) [Vol rate/Area] 84 mL/min/{1.73_m2} Normal >60 [facility] Comment on above: Result Comment: mL/m in/1.73m2 CKD-EPI Creatinine Equation (2020) Performed By: #### L 500.2500, L100.0100 ####[facility] [address] [place], [address] Glucose [Mass/Vol] 105 mg/dL High 70-99 [facility] Comment on above: Performed By: #### L 500.2500, L100.0100 ####[facility] [address] [place], [address] Potassium [Moles/Vol] 4.5 mmol/L Normal 3.3-5.1 [facility] Comment on above: Performed By: #### L 500.2500, L100.0100 ####[facility] [address] [place], [address] Sodium [Moles/Vol] 135 mmol/L Normal 133-145 [facility] Comment on above: Performed By: #### L 500.2500, L100.0100 ####[facility] [address] [place], [address] Urea nitrogen [Mass/Vol] 17 mg/dL Normal 4-19 [facility] Comment on above: Performed By: #### L 500.2500, L100.0100 ####[facility] [address] [place], [address] CBC W/Diff, Automatedon 11-0 PLT EST MKD DEC Normal [facility] Comment on above: Performed By: #### L 500.2500, L100.0100 ####[facility] [address] [place], [address] SMEAR COMMENT SCANNED Normal [facility] Comment on above: Result Comment: NEUT ROPENIA PRESENT Performed By: #### L 500.2500, L100.0100 ####[facility] [address] [place], [address] CBC W/Diff, Automatedon 11-0 PLT EST MKD DEC Normal [facility] Comment on above: Performed By: #### L 100.0100 ####[facility] [address] [place], [address] SMEAR COMMENT SCANNED Normal [facility] Comment on above: Performed By: #### L 100.0100 ####[facility] [address] [place], [address] Platelets (Bld) [#/Vol] 41 10*3/uL Invalid Interpretation Code 150-450 [facility] Comment on above: Result Comment: CRIT ICAL VALUE CALLED TO BOUBACAR STOKES09/18/25 0528 Claudia Floyd.RESULTS READ BACK BY SAME. Performed By: #### L 500.4050, L100.0100 ####[facility] [address] [place], [address] Absolute Lymph 0.99 X10 3/uL Normal 0.83-4.51 [facility] Comment on above: Performed By: #### L 500.4050, L100.0100 ####[facility] [address] [place], [address] Absolute Neut 1.3 X10 3/uL Low 2.0-7.7 [facility] Comment on above: Performed By: #### L 500.4050, L100.0100 ####[facility] [address] [place], [address] Basophils/100 WBC (Bld) 0.4 % Normal 0-1 [facility] Comment on above: Performed By: #### L 500.4050, L100.0100 ####[facility] [address] [place], [address] Eosinophils/100 WBC (Bld) 0.4 % Normal 0-5 [facility] Comment on above: Performed By: #### L 500.4050, L100.0100 ####[facility] [address] [place], [address] Erythrocyte distribution width (RBC) [Ratio] 15.6 % High 11.6-14.6 [facility] Comment on above: Performed By: #### L 500.4050, L100.0100 ####[facility] [address] [place], [address] Hematocrit (Bld) [Volume fraction] 23.7 % Low 37-47 [facility] Comment on above: Performed By: #### L 500.4050, L100.0100 ####[facility] [address] [place], [address] Hemoglobin (Bld) [Mass/Vol] 8.1 g/dL Low 12.0-15.0 [facility] Comment on above: Performed By: #### L 500.4050, L100.0100 ####[facility] [address] [place], [address] IG% 0.800 Normal 0.0-0.9 [facility] Comment on above: Result Comment: IG% - Immature Granulocytes (promyelocytes, myelocytes andmetamyelocytes) > 1% indicates that a LEFT SHIFT is Present. Performed By: #### L 500.4050, L100.0100 ####[facility] [address] [place], [address] Lymphocytes/100 WBC (Bld) 37.2 % Normal 19-41 [facility] Comment on above: Performed By: #### L 500.4050, L100.0100 ####[facility] [address] [place], [address] MCH (RBC) [Entitic mass] 29.0 pg Normal 27.0-32.0 [facility] Comment on above: Performed By: #### L 500.4050, L100.0100 ####[facility] [address] [place], [address] MCHC (RBC) [Mass/Vol] 34.2 g/dL Normal 32-36 [facility] Comment on above: Performed By: #### L 500.4050, L100.0100 ####[facility] [address] [place], [address] MCV (RBC) [Entitic vol] 84.9 fL Normal 81-99 [facility] Comment on above: Performed By: #### L 500.4050, L100.0100 ####[facility] [address] [place], [address] Monocytes/100 WBC (Bld) 12.4 % High 0-10 [facility] Comment on above: Performed By: #### L 500.4050, L100.0100 ####[facility] [address] [place], [address] Neutrophils/100 WBC (Bld) 48.8 % Normal 47-70 [facility] Comment on above: Performed By: #### L 500.4050, L100.0100 ####[facility] [address] [place], [address] Nucleated RBC (Bld) [#/Vol] 0 10*3/uL Normal 0-5 [facility] Comment on above: Performed By: #### L 500.4050, L100.0100 ####[facility] [address] [place], [address] Platelet mean volume (Bld) [Entitic vol] 8.8 fL Normal 6.2-12.0 [facility] Comment on above: Performed By: #### L 500.4050, L100.0100 ####[facility] [address] [place], [address] RBC (Bld) [#/Vol] 2.79 10*6/uL Low 4.2-5.4 [facility] Comment on above: Performed By: #### L 500.4050, L100.0100 ####[facility] [address] [place], [address] RDW SD 48.2 fl High 35.1-43.9 [facility] Comment on above: Performed By: #### L 500.4050, L100.0100 ####[facility] [address] [place], [address] WBC (Bld) [#/Vol] 2.7 10*3/uL Low 4.4-11.0 [facility] Comment on above: Performed By: #### L 500.4050, L100.0100 ####[facility] [address] [place], [address] Comprehensive Metabolic Prof ilon 09-18-2025 Albumin [Mass/Vol] 3.6 g/dL Normal 3.4-4.8 [facility] Comment on above: Performed By: #### L 500.4050, L100.0100 ####[facility] [address] [place], [address] Albumin/Globulin [Mass ratio] 1.8 {ratio} Normal 0.9-2.4 [facility] Comment on above: Performed By: #### L 500.4050, L100.0100 ####[facility] [address] [place], [address] ALK PHOS 75 U/L Normal 35-104 [facility] Comment on above: Performed By: #### L 500.4050, L100.0100 ####[facility] [address] [place], [address] ALT [Catalytic activity/Vol] 10 U/L Normal <=34 [facility] Comment on above: Performed By: #### L 500.4050, L100.0100 ####[facility] [address] [place], [address] AST [Catalytic activity/Vol] 15 U/L Normal <=31 [facility] Comment on above: Performed By: #### L 500.4050, L100.0100 ####[facility] [address] [place], [address] Bilirubin [Mass/Vol] 0.66 mg/dL Normal 0.00-1.30 [facility] Comment on above: Performed By: #### L 500.4050, L100.0100 ####[facility] [address] [place], [address] BUN/CRE 26.9 RATIO High 10-20 [facility] Comment on above: Performed By: #### L 500.4050, L100.0100 ####[facility] [address] [place], [address] Calcium [Mass/Vol] 8.8 mg/dL Normal 7.6-11.0 [facility] Comment on above: Performed By: #### L 500.4050, L100.0100 ####[facility] [address] [place], [address] Chloride [Moles/Vol] 102 mmol/L Normal 98-108 [facility] Comment on above: Performed By: #### L 500.4050, L100.0100 ####[facility] [address] [place], [address] CO2 [Moles/Vol] 23.3 mmol/L Normal 21.0-32.0 [facility] Comment on above: Performed By: #### L 500.4050, L100.0100 ####[facility] [address] [place], [address] Creatinine [Mass/Vol] 0.71 mg/dL Normal 0.70-1.20 [facility] Comment on above: Performed By: #### L 500.4050, L100.0100 ####[facility] [address] [place], [address] ECRCL 42.90 ml/min Low 50-250 [facility] Comment on above: Performed By: #### L 500.4050, L100.0100 ####[facility] [address] [place], [address] GAP 9 Normal 5-15 [facility] Comment on above: Performed By: #### L 500.4050, L100.0100 ####[facility] [address] [place], [address] GFR/1.73 sq M.predicted among non-blacks MDRD (S/P/Bld) [Vol rate/Area] 81 mL/min/{1.73_m2} Normal >60 [facility] Comment on above: Result Comment: mL/m in/1.73m2 CKD-EPI Creatinine Equation (2020) Performed By: #### L 500.4050, L100.0100 ####[facility] [address] [place], [address] Globulin (S) [Mass/Vol] 2.0 g/dL Low 2.2-4.2 [facility] Comment on above: Performed By: #### L 500.4050, L100.0100 ####[facility] [address] [place], [address] Glucose [Mass/Vol] 125 mg/dL High 70-99 [facility] Comment on above: Performed By: #### L 500.4050, L100.0100 ####[facility] [address] [place], [address] Potassium [Moles/Vol] 4.0 mmol/L Normal 3.3-5.1 [facility] Comment on above: Performed By: #### L 500.4050, L100.0100 ####[facility] [address] [place], [address] Sodium [Moles/Vol] 134 mmol/L Normal 133-145 [facility] Comment on above: Performed By: #### L 500.4050, L100.0100 ####[facility] [address] [place], [address] T PROT 5.7 g/dL Low 5.9-8.4 [facility] Comment on above: Performed By: #### L 500.4050, L100.0100 ####[facility] [address] [place], [address] Urea nitrogen [Mass/Vol] 19 mg/dL Normal 4-19 [facility] Comment on above: Performed By: #### L 500.4050, L100.0100 ####[facility] [address] [place], [address] 12 Lead EKGon 09-17-2025 12 Lead EKG Normal [facility] BPPHRon 09-17-2025 PPHR Normal [facility] Comment on above: Result Comment: [id number] AP PPHR PRSMD TRFSD 09/18/25 [id number] AP PPHR PRSMD TRFSD 09/17/25 2331 Performed By: #### B PPHR ####[facility] [address] [place], [address] BRCon 09-17-2025 RC Normal [facility] Comment on above: Result Comment: [id number] OP RC TRANSFUSED 09/17/25 [id number] OP RC TRANSFUSED 09/17/25 [id number] OP RC TRANSFUSED 09/17/25 1733 Performed By: #### B TS, BRC ####[facility] [address] [place], [address] Basic Metabolic Profile (BMP )on 09-17-2025 BUN/CRE 34.0 RATIO High 10-20 [facility] Comment on above: Performed By: #### L 500.2500, L100.0100, L501.4021 ####[facility] [address] [place], [address] Calcium [Mass/Vol] 9.7 mg/dL Normal 7.6-11.0 [facility] Comment on above: Performed By: #### L 500.2500, L100.0100, L501.4021 ####[facility] [address] [place], [address] Chloride [Moles/Vol] 102 mmol/L Normal 98-108 [facility] Comment on above: Performed By: #### L 500.2500, L100.0100, L501.4021 ####[facility] [address] [place], [address] CO2 [Moles/Vol] 21.2 mmol/L Normal 21.0-32.0 [facility] Comment on above: Performed By: #### L 500.2500, L100.0100, L501.4021 ####[facility] [address] [place], [address] Creatinine [Mass/Vol] 0.72 mg/dL Normal 0.70-1.20 [facility] Comment on above: Performed By: #### L 500.2500, L100.0100, L501.4021 ####[facility] [address] [place], [address] ECRCL 44.63 ml/min Low 50-250 [facility] Comment on above: Performed By: #### L 500.2500, L100.0100, L501.4021 ####[facility] [address] [place], [address] GAP 10 Normal 5-15 [facility] Comment on above: Performed By: #### L 500.2500, L100.0100, L501.4021 ####[facility] [address] [place], [address] GFR/1.73 sq M.predicted among non-blacks MDRD (S/P/Bld) [Vol rate/Area] 79 mL/min/{1.73_m2} Normal >60 [facility] Comment on above: Result Comment: mL/m in/1.73m2 CKD-EPI Creatinine Equation (2020) Performed By: #### L 500.2500, L100.0100, L501.4021 ####[facility] [address] [place], [address] Glucose [Mass/Vol] 108 mg/dL High 70-99 [facility] Comment on above: Performed By: #### L 500.2500, L100.0100, L501.4021 ####[facility] [address] [place], [address] Potassium [Moles/Vol] 4.8 mmol/L Normal 3.3-5.1 [facility] Comment on above: Performed By: #### L 500.2500, L100.0100, L501.4021 ####[facility] [address] [place], [address] Sodium [Moles/Vol] 133 mmol/L Normal 133-145 [facility] Comment on above: Performed By: #### L 500.2500, L100.0100, L501.4021 ####[facility] [address] [place], [address] Urea nitrogen [Mass/Vol] 25 mg/dL High 4-19 [facility] Comment on above: Performed By: #### L 500.2500, L100.0100, L501.4021 ####[facility] [address] [place], [address] CBC W/Diff, Automatedon 11-0 PLT EST MKD DEC Normal ADEQ [facility] Comment on above: Performed By: #### L 500.2500, L100.0100, L501.4021 ####[facility] [address] [place], [place], [address] SMEAR COMMENT COMMENT Normal [facility] Comment on above: Result Comment: ANEM IA.THROMBOCYTOPENIA. Performed By: #### L 500.2500, L100.0100, L501.4021 ####[facility] [address] [place], [address] CNOVon 09-17-2025 CNOV Office Visit ([facility]) MANAYANN Martha ([id number]) 1935 F Date Time Provider Department 09/17/25 10:30 AM CAL SHELDON During your visit today, we recorded the following information about you: Temperature Pulse Respiration Blood pressure 97.6 degrees 75/minute 18/minute 110/68 Weight 62 kg Cal Sheldon MD 09/17/2025 10:44 AM Signed [facility] Thomas Mana is a 89 year old female. Patient presents with: Shortness of Breath: Shortness of Breath and chest congestion x 3 days Patient presents with concern for having low oxygen. She has noticed a significant decrease in her duration on exertion over the last couple days. She went to the emergency room 2 days ago with a 3-hour left sided bloody nose. Her daughter gave her Afrin and the bleeding had stopped by the time of evaluation. She was able to ambulate into the ER using her walker at her baseline and since then has worsening dyspnea. She feels short of breath at rest and has difficulty walking between rooms now. She has had no return of bloody nose. She has a cough from some phlegm in her throat but otherwise denies any significant nasal congestion, rhinorrhea, chest congestion, or fever. She denies chest pain. She feels her heart race when she tries to exert herself. Review of Systems Objective BP 110/68 Pulse 75 Temp 36.4 ?C (97.6 ?F) (Tympanic) Resp (!) 148 Wt 62 kg (136 lb 11 oz) SpO2 98% BMI 25.20 kg/m? Physical Exam Constitutional: General: She is not in acute distress. Comments: Sitting in wheelchair HENT: Right Ear: Decreased hearing noted. There is impacted cerumen. Left Ear: Tympanic membrane and ear canal normal. Decreased hearing noted. Nose: Rhinorrhea (Sniffing some rhinorrhea, no active bleeding or identified ulcerations on exam) present. No congestion. Right Sinus: No maxillary sinus tenderness or frontal sinus tenderness. Left Sinus: No maxillary sinus tenderness or frontal sinus tenderness. Mouth/Throat: Mouth: Mucous membranes are moist. Pharynx: No oropharyngeal exudate or posterior oropharyngeal erythema. Eyes: Extraocular Movements: Extraocular movements intact. Conjunctiva/sclera: Conjunctivae normal. Pupils: Pupils are equal, round, and reactive to light. Cardiovascular: Rate and Rhythm: Normal rate and regular rhythm. Heart sounds: No murmur heard. Pulmonary: Effort: No respiratory distress (Slight conversational dyspnea). Breath sounds: No wheezing, rhonchi or rales. Musculoskeletal: Cervical back: Neck supple. Lymphadenopathy: Cervical: No cervical adenopathy. Neurological: Mental Status: She is alert. {ASSESSMENT/PLAN: 1. ORTEGA (dyspnea on exertion) - ICD9: 786.09, ICD10: R06.09 No obvious source of exertional dyspnea by history or exam. Patient directed to the emergency room for further evaluation. Her daughter will take her back to [facility]. Cal Sheldon MD Differential Diagnoses - Anemia - Acute coronary syndrome - CHF - Pulmonary embolism Procedures Allergies As of Date: 09/17/2025 Noted Allergy Reaction SULFUR 11/07/2007 4 - Hives Date Reviewed: 09/17/2025 Reviewed by: Maile Benavides LPN - Fully Assessed Reason for Visit: Shortness of Breath [227] Cmt: Shortness of Breath and chest congestion x 3 days Primary Visit Diagnosis:ORTEGA (dyspnea on exertion) [R06.09] Prescriptions as of 09/17/2025 - sodium chloride soluble tablet 1 g Take 1 tablet by mouth two times a day. - pantoprazole DR (PROTONIX) 40 mg tablet Take 1 tablet by mouth once daily. - mirabegron (MYRBETRIQ) 25 mg Tb24 daily at bedtime. - losartan (COZAAR) 25 mg tablet Take 1 tablet by mouth once daily. For high blood pressure. - atorvastatin (LIPITOR) 10 mg tablet Take 1 tablet by mouth once daily. - metFORMIN (GLUCOPHAGE) 500 mg tablet Take 1 tablet by mouth two times a day with meals. - ROCKLATAN 0.02-0.005 % ophthalmic solution Use 1 Drop in both eyes daily at bedtime. - cyanocobalamin, vitamin B-12, (VITAMIN B12 ORAL) Take 1 tablet by mouth once daily. - dorzolamide-timolol (COSOPT) 22.3-6.8 mg/mL ophthalmic solution Use 1 Drop in both eyes twice daily. - methotrexate 2.5 mg tablet 6 tabs [...] TAB Take one (1) tablet daily . Problem List As Of Date 09/17/2025 Noted Resolved Generalized osteoarthrosis [M15.9] 05/20/2004 Veronica (more content not included)... Normal [facility] Chest 1 View (Portable)on Chest 1 View (Portable) Normal [facility] Emergency Department Summary on 09-17-2025 Emergency Department Summary Normal [facility] Ferritinon 09-17-2025 Ferritin [Mass/Vol] 553 ng/mL High 22-378 [facility] Comment on above: Performed By: #### L 503.6042, L506.0200, L503.0106, L503.5350, L499.0042, L501.9520 ####[facility] [address] [place], [place], [id number] Folates,Serum (Folic Acid)on 09-17-2025 FOLATES,SERUM > 40.00 High 4.60-34.80 [facility] Comment on above: Order Comment: N Result Comment: Hemo lysis, Results will be affected, Requires Recollection. Performed By: #### L 503.6030, L506.0200, L503.0106, L503.6550, L499.0042, L501.9520 ####[facility] [address] [place], [address] H AND P Exam - Hospitaliston 09-17-2025 H&P Exam - Hospitalist Normal [facility] Iron+Iron Binding Capacityon 09-17-2025 IRON SATURATION TNP Normal 13-59 [facility] Comment on above: Result Comment: UNAB LE TO CALCULATE Performed By: #### L 503.6030, L506.0200, L503.0106, L503.6550, L499.0042, L501.9520 ####[facility] [address] [place], [address] TIBC TNP Normal 250-450 [facility] Comment on above: Result Comment: UNAB LE TO CALCULATE Performed By: #### L 503.6030, L506.0200, L503.0106, L503.6550, L499.0042, L501.9520 ####[facility] [address] [place], [address] L501.4021on 09-17-2025 Trop T High Sen 13 ng/L Normal <=14 [facility] Comment on above: Performed By: #### L 500.2500, L100.0100, L501.4021 ####[facility] [address] [place], [address] Thyroid Stim Hormone (TSH)on 09-17-2025 TSH 2.830 uIU/mL Normal 0.300-4.200 [facility] Comment on above: Performed By: #### L 503.6030, L506.0200, L503.0106, L503.6550, L499.0042, L501.9520 ####[facility] [address] [place], [address] Troponin T HS 2 HRon 025 Trop T High Sen 13 ng/L Normal <=14 [facility] Comment on above: Performed By: #### L 503.6030, L506.0200, L503.0106, L503.6550, L499.0042, L501.9520 ####[facility] [address] [place], [address] Troponin T HS 4 HRon 025 Trop T High Sen Normal <=14 [facility] Comment on above: Result Comment: Canc elled via OM: Ordered Performed By: #### L 499.0043 ####[facility] [address] [place], [address] Type AND Screenon 09-17-2025 Ab SCREEN GEL Negative Normal [facility] Comment on above: Order Comment: CMV N EG? NNumber of units to transfuse: 3Is the EBL >/= 1000ml in adults or >/= 12ml/kg in children?YReason for Ordering Blood: AcuteAre the blood/blood products to be transfused? YIs the patient having/had surgery? NWjemima Dhaliwal Performed By: #### B TS, BRC ####[facility] [address] [place], [address] Vitamin B12on 09-17-2025 Cobalamin (Vitamin B12) [Mass/Vol] 799 pg/mL Normal 180-914 [facility] Comment on above: Performed By: #### L 503.6030, L506.0200, L503.0106, L503.6550, L499.0042, L501.9520 ####[facility] [address] [place], [address] Emergency Department Summary on 09-15-2025 Emergency Department Summary Normal [facility] Bacteria Ur Culton 5 Bacteria identified Cx Nom (U) CULTURE, URINE: Mixed microbiota, including predominantly: ORGANISM ID: 1 50,000-<100,000 CFU/ml Klebsiella pneumoniae ORGANISM ID: 1 (KLEBSIELLA PNEUMONIAE) ANTIBIOTIC INTERPRETATION BRYANT STATUS REFERENCE RANGE Ampicillin R F Cefazolin S <=4 F Susceptible 0-16 , Intermediate <0 or >16 , Resistant >16 For uncomplicated urinary tract infections, cefazolin results can be used to predict susceptibility or resistance to cephalexin. Ceftriaxone S <=1 F Susceptible <=1 , Intermediate >1 , Resistant >=4 Cefepime S <=1 F Susceptible <=2 , Susceptible-Dose Dependent >2 , Resistant >=16 Ertapenem S <=0.5 F Susceptible <=0.5 , Intermediate >.5 , Resistant >1 Meropenem S <=0.25 F Susceptible <=1 , Intermediate >1 , Resistant >2 Ampicillin/Sulbact S 4 F Susceptible <=8 , Intermediate >8 , Resistant >16 Piperacillin/Tazobac S <=4 F Susceptible <16 , Susceptible-Dose Dependent >=16 , Resistant >=32 Gentamicin S <=1 F Susceptible <=2 , Intermediate >2 , Resistant >=8 Tobramycin S <=1 F Susceptible <4 , Intermediate >=4 , Resistant >=8 Trimeth sulfameth S <=20 F Susceptible <=40 , Resistant >40 Ciprofloxacin S <=0.25 F Susceptible <0.5 , Intermediate >=.5 , Resistant >=1 Nitrofurantoin I 64 F Susceptible <=32 , Intermediate >32 , Resistant >64 Abnormal [facility] Comment on above: Performed By: #### 6 30-4 ####[facility] LABCLIA [id number] [place] [id number] [place] CNOVon 09-07-2025 CNOV Office Visit (WOUCA) YANN ADAIR ([id number]) 1935 F Date Time Provider Department 09/07/25 1:45 PM KENZIE ANAYA During your visit today, we recorded the following information about you: Pulse Respiration Blood pressure Weight 78/minute 18/minute 131/77 62 kg Kenzie Anaya MD 09/07/2025 2:10 PM Addendum Urinary Tract Infection Adult You have been diagnosed with a basic urinary tract infection (UTI). This means it does not involve your kidneys or areas other than your bladder. A UTI is an infection in your bladder. Your doctor diagnosed it by testing your urine. UTIs usually causes burning when you urinate (pee) or urinating often. It might make you feel like you have to urinate even when you don't. UTI is usually treated with antibiotics and medicine to help with pain. It is very important that you fill your prescription and take all of the antibiotics as directed. If a urinary tract infection goes untreated for too long, it can become a kidney infection. For Women: To reduce the risk of getting another UTI: Always urinate before and after sexual intercourse. Always wipe from front to back after urinating or having a bowel movement. Do not wipe from back to front. Drink plenty of fluids. Try to drink cranberry or blueberry juice. These juices have a chemical that stops bacteria from sticking to the bladder. Return here or go to the nearest Emergency Department immediately if: You have a fever (temperature higher than 100.4?F / 38?C) or shaking chills. You feel nauseated (sick to your stomach) or vomit (throw up). You have pain in your side or back. You don't get better after taking all of your antibiotics. You have any new symptoms or concerns. You feel worse or do not improve. If you can't follow up with your doctor, or if at any time you feel you need to be rechecked or seen again, come back here or go to the nearest emergency department. Kenzie Anaya MD 09/07/2025 2:22 PM Signed [facility] Subjective Yann Adair is a 89 year old female. Patient presents with: Urinary Tract Infection: Burning with urination x3 days Pt is here with 3 day hx of dysuria freq and urgency no abd/flank pain no fever or chills no N/V Review of Systems Constitutional: Negative for chills, fatigue and fever. Gastrointestinal: Negative for abdominal pain, nausea and vomiting. Genitourinary: Positive for dysuria, frequency and urgency. Negative for flank pain and hematuria. Objective BP 131/77 Pulse 78 Resp 18 Wt 62 kg (136 lb 11 oz) SpO2 95% BMI 25.20 kg/m? Physical Exam Vitals and nursing note reviewed. Constitutional: Appearance: Normal appearance. She is not ill-appearing. Abdominal: General: Bowel sounds are normal. Palpations: Abdomen is soft. Tenderness: There is no abdominal tenderness. There is no right CVA tenderness, left CVA tenderness, guarding or rebound. Neurological: Mental Status: She is alert and oriented to person, place, and time. Psychiatric: Mood and Affect: Mood normal. Behavior: Behavior normal. Results for orders placed or performed in visit on 09/07/25 UA DIP, URINE (POC) Result Value Ref Range GLUCOSE UA (POCT) Negative Negative mg/dL BILIRUBIN UA (POCT) Negative Negative KETONE UA (POCT) Negative Negative mg/dL SPECIFIC GRAVITY UA (POCT) 1.015 1.005 - 1.030 HEMOGLOBIN/BLOOD UA (POCT) Moderate (A) Negative PH UA (POCT) 5.5 4.5 - 8.0 PROTEIN UA (POCT) Trace (A) Negative mg/dL UROBILINOGEN UA (POCT) 1.0 Normal E.U./dL NITRITE UA (POCT) Negative Negative LEUKOCYTES UA (POCT) Moderate (A) Negative COLOR UA (POCT) Yellow CLARITY UA (POCT) Cloudy {ASSESSMENT/PLAN: 1. Burning with urination - ICD9: 788.1, ICD10: R30.0 (primary diagnosis) - UA DIP, URINE (POC - BACTERIAL CULTURE, URINE 2. Acute cystitis without hematuria - ICD9: 595.0, ICD10: N30.00 Return here as needed await culture results - CEPHALEXIN 500 MG CAPSULE Kenzie Anaya MD History and Record Review External record(s) reviewed: prior outpatient record. Differential Diagnoses - uti is more likely for the following reason(s): suggested by HANDP and consistent with laboratory studies - pyelonephritis is less likely for the following reason(s): no fever no abd/flank pain, HANDP not suggestive Disposition The patient was discharged. Procedures Allergies As of Date: 09/07/2025 Noted Allergy Reaction SULFUR 11/07/2007 4 - Hives Date Reviewed: 09/07/2025 Reviewed by: Lynette Kennedy MA - Fully Assessed Reason for Visit: Urinary Tract Infection [4236] Cmt: Burning with urination x3 days Primary Visit Diagnosis:Burning with urination [R30.0] Other Visit Diagnosis:Acute cystitis without hematuria [N30.00] Order(s):UA DIP, URINE (POC) [[id number]] Order #: [id number] #:[id number] BACTERIAL CULTURE, U (more content not included)... Normal [facility] CNOVon 07-27-2025 CNOV Office Visit (PODIWS ) YANN ADAIR ([id number]) 1935 F Date Time Provider Department 07/27/25 2:45 PM ANGELINA FLEMING PODIWS During your visit today, we recorded the following information about you: Hilary Skaggs LPN 07/28/2025 8:25 AM Signed AMB ROOMING INTAKE FLOWSHEET DATA Patient presents with: Right Foot - Established Patient, Pain: Nail Care Left Foot - Established Patient, Pain: Nail Care Hilary SkaggsALMAS Angelina Fleming 07/27/2025 3:16 PM Signed Diabetes Foot Care Instructions When [...] or sore from your shoes, do not "pop" it. Apply a bandage and wear a different pair of shoes. Take Care of Your Toenails Cut toenails after bathing, when they are soft. Cut toenails straight across and smooth with a nail file. Avoid cutting into the corners of toes. Do not cut cuticles. If you have neuropathy (or decreased sensation in your feet) a general assignment reporter should always cut your toenails. Be Careful [...] your shoes are too tight. Perform the "footwear test" described below. Footwear Test Use this simple [...] Go to your health care provider or general assignment reporter to treat these conditions. Angelina Flemnig 07/28/2025 8:25 AM Signed Last saw pcp: 07/23/25 Subjective: Patient presents to clinic c/o painful toenails. They state that the nails are especially painful with shoe gear and pressure. Patient states that nails 1-5 b/l are painful. Patient admits to being diabetic. Patient has painful callus of left medial instep. No other pedal complaints at this time. Patient states no change in medications or medical history since last visit. Objective: Patient presents to clinic ambulating in sneakers Vasc: DP and PT pulses are f (more content not included)... Normal [facility] Basic metabolic 2000 panelon 07-23-2025 Anion gap [Moles/Vol] 12 mmol/L Normal 8-15 [facility] Comment on above: Order Comment: Speci men Type: BLOOD SPECIMENOrdering Facility: [facility] Address: [address] [place] [address] Performed By: #### 1 9123-9, 64442-8 ####[facility] LABCLIA [id number] [place] [address] [place] Calcium [Mass/Vol] 9.8 mg/dL Normal 8.5-10.2 [facility] Comment on above: Order Comment: Speci men Type: BLOOD SPECIMENOrdering Facility: [facility] Address: [address] [place] [id number] Performed By: #### 1 9123-9, 65361-7 ####[facility] LABIA [id number] [place] [id number] [place] Chloride [Moles/Vol] 99 mmol/L Normal 98-107 [facility] Comment on above: Order Comment: Speci men Type: BLOOD SPECIMENOrdering Facility: [facility] Address: [address] [place] [address] Performed By: #### 1 9123-9, 53050-9 ####[facility] LABCLIA [id number] [address] [address] [place] CO2 [Moles/Vol] 23 mmol/L Normal 22-30 [facility] Comment on above: Order Comment: Speci men Type: BLOOD SPECIMENOrdering Facility: [facility] Address: [address] [place] [id number] Performed By: #### 1 9123-9, 65279-0 ####[facility] LABCLIA [id number] [place] [id number] [place] Creatinine [Mass/Vol] 0.68 mg/dL Normal 0.58-0.96 [facility] Comment on above: Order Comment: Speci men Type: BLOOD SPECIMENOrdering Facility: [facility] Address: [address] [place] [address] Performed By: #### 1 9123-9, 50056-5 ####[facility] LABIA [id number] [place] [address] [place] eGFRcr SerPlBld CKD-EPI 2020 83 mL/min/1.73m??? Normal >=60 [facility] Comment on above: Order Comment: Speci men Type: BLOOD SPECIMENOrdering Facility: [facility] Address: [address] [place] [address] Result Comment: Zoila mated Glomerular Filtration Rate [...] accurately reflect actual GFR. Performed By: #### 1 9123-9, 83430-3 ####[facility] LABIA [id number] [place] [id number] [place] Glucose [Mass/Vol] 104 mg/dL High 74-99 [facility] Comment on above: Order Comment: Speci men Type: BLOOD SPECIMENOrdering Facility: [facility] Address: [address] [place] [address] Result Comment: The [place] [employer] Association (ADA) provides guidance for [...] Standards of Medical Care in Diabetes 2016, [place] [employer]. Diabetes Care. 2016.39(Suppl 1). Performed By: #### 1 9123-9, 80846-9 ####[facility] LABCLIA [id number] [address] [address] [place] Potassium [Moles/Vol] 4.7 mmol/L Normal 3.7-5.1 [facility] Comment on above: Order Comment: Speci men Type: BLOOD SPECIMENOrdering Facility: [facility] Address: [address] [place] [address] Performed By: #### 1 91239, 04367-6 ####[facility] LABIA [id number] [address] [address] [place] Sodium [Moles/Vol] 134 mmol/L Low 136-144 [facility] Comment on above: Order Comment: Kelleni sierra Type: BLOOD SPECIMENOrdering Facility: [facility] Address: [address] [place] [address] Performed By: #### 1 9123-9, 18228-1 ####[facility] LABIA [id number] [address] [address] [place] Urea nitrogen [Mass/Vol] 14 mg/dL Normal 7-21 [facility] Comment on above: Order Comment: Speci men Type: BLOOD SPECIMENOrdering Facility: [facility] Address: [address] [place] [address] Performed By: #### 1 9123-9, 87824-0 ####[facility] LABIA [id number] [address] [address] [place] CBC panel Auto (Bld)on 07-23 Erythrocyte distribution width (RBC) [Ratio] 13.8 % 11.5 - 15.0 % [facility] Hematocrit (Bld) [Volume fraction] 34.1 % Low 36.0 - 46.0 % [facility] Hemoglobin (Bld) [Mass/Vol] 10.9 g/dL Low 11.5 - 15.5 g/dL [facility] Interpretation and review of laboratory results Abnormal [facility] MCH (RBC) [Entitic mass] 32.0 pg 26. 0 - 34.0 pg [facility] MCHC (RBC) [Mass/Vol] 32.0 g/dL 30.5 - 36.0 g/dL [facility] MCV (RBC) [Entitic vol] 100.0 fL 80.0 - 100.0 fL [facility] Nucleated RBC (Bld) [#/Vol] NINF [facility] Platelet mean volume (Bld) [Entitic vol] 9.8 fL 9.0 - 12.7 fL [facility] Platelets (Bld) [#/Vol] 310 10*3/uL [facility] RBC (Bld) [#/Vol] 3.41 10*6/uL Low 3.90 - 5.2 0 m/uL [facility] WBC (Bld) [#/Vol] 5.56 10*3/uL [facility] Erythrocyte distribution width (RBC) [Ratio] 13.8 % Normal 11.5-15.0 [facility] Comment on above: Order Comment: Speci men Type: BLOOD SPECIMENOrdering Facility: [facility] Address: [address] [place] [address] Performed By: #### 5 8410-2 ####[facility] LABIA [id number] [address] [place] Hematocrit (Bld) [Volume fraction] 34.1 % Low 36.0-46.0 [facility] Comment on above: Order Comment: Speci men Type: BLOOD SPECIMENOrdering Facility: [facility] Address: [address] [place] [address] Performed By: #### 5 8410-2 ####[facility] LABCLIA [id number] [place] [address] [place] Hemoglobin (Bld) [Mass/Vol] 10.9 g/dL Low 11.5-15.5 [facility] Comment on above: Order Comment: Speci men Type: BLOOD SPECIMENOrdering Facility: [facility] Address: [address] [place] [address] Performed By: #### 5 8410-2 ####[facility] LABIA [id number] [address] [place] MCH (RBC) [Entitic mass] 32.0 pg Normal 26.0-34.0 [facility] Comment on above: Order Comment: Speci men Type: BLOOD SPECIMENOrdering Facility: [facility] Address: [address] [place] [address] Performed By: #### 5 8410-2 ####[facility] LABIA [id number] [address] [place] MCHC (RBC) [Mass/Vol] 32.0 g/dL Normal 30.5-36.0 [facility] Comment on above: Order Comment: Speci men Type: BLOOD SPECIMENOrdering Facility: [facility] Address: [address] [place] [address] Performed By: #### 5 8410-2 ####[facility] LABIA [id number] [place] [address] [place] MCV (RBC) [Entitic vol] 100.0 fL Normal 80.0-100.0 [facility] Comment on above: Order Comment: Speci men Type: BLOOD SPECIMENOrdering Facility: [facility] Address: [address] [place] [address] Performed By: #### 5 8410-2 ####[facility] LABIA [id number] [place] [address] [place] Nucleated RBC (Bld) [#/Vol] 10*3/uL Normal <0.01 [facility] Comment on above: Order Comment: Speci men Type: BLOOD SPECIMENOrdering Facility: [facility] Address: [address] [place] [address] Performed By: #### 5 8410-2 ####[facility] LABCLIA [id number] [address] [address] [place] Platelet mean volume (Bld) [Entitic vol] 9.8 fL Normal 9.0-12.7 [facility] Comment on above: Order Comment: Speci men Type: BLOOD SPECIMENOrdering Facility: [facility] Address: [address] [place] [address] Performed By: #### 5 8410-2 ####[facility] LABIA [id number] [place] [address] [place] Platelets (Bld) [#/Vol] 310 10*3/uL Normal 150-400 [facility] Comment on above: Order Comment: Speci men Type: BLOOD SPECIMENOrdering Facility: [facility] Address: [address] [place] [address] Performed By: #### 5 8410-2 ####[facility] LABIA [id number] [place] [address] [place] RBC (Bld) [#/Vol] 3.41 10*6/uL Low 3.90-5.20 [facility] Comment on above: Order Comment: Speci men Type: BLOOD SPECIMENOrdering Facility: [facility] Address: [address] [place] [address] Performed By: #### 5 8410-2 ####[facility] LABIA [id number] [place] [address] [place] WBC (Bld) [#/Vol] 5.56 10*3/uL Normal 3.70-11.00 [facility] Comment on above: Order Comment: Speci men Type: BLOOD SPECIMENOrdering Facility: [facility] Address: [address] [place] [address] Performed By: #### 5 8410-2 ####[facility] KHUSHI [id number] [address] [place] [place] [id number] [facility] CNOVon 07-23-2025 CNOV Office Visit (INTMWS ) YANN ADAIR ([id number]) 1935 F Date Time Provider Department 07/23/25 2:20 PM FITZ WALTERS INTMWS During your visit today, we recorded the following information about you: Temperature Pulse Blood pressure Weight 98.3 degrees 80/minute 114/70 63.2 kg Fitz Walters MD 07/23/2025 5:10 PM Signed Subjective Yann Thomas Mana is a 89 year old female here with her daughter. Patient presents with: Hospital Martha/U Yann was admitted 07/14 to 07/18/25 for acute gastroenteritis, Campylobacter infection, metabolic encephalopathy, hyponatremia, hypomagnesemia and general debility. She was treated with IV azithromycin. GI was consulted and EGD was done on 07/18/25 showing gastritis. Nephrology was consulted due to hyponatremia. CT of the abdomen and pelvis was consistent with enterocolitis. 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 She was better other than ankle edema. [facility] also called that she tested + for Blastocystis hominis in the stool OANDP. However, patient was asymptomatic at this time. The history is provided by medical records, the patient and a relative. Review of Systems Constitutional: Negative for fatigue and fever. Respiratory: Negative for shortness of breath. Cardiovascular: Positive for leg swelling. Negative for chest pain and palpitations. Gastrointestinal: Positive for constipation. Negative for abdominal pain, blood in stool, diarrhea, nausea and vomiting. Genitourinary: Negative for dysuria. Skin: Positive for wound. Neurological: Positive for weakness. 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 sodium chloride soluble tablet 1 g 1 g three times a day. mirabegron (MYRBETRIQ) 25 mg Tb24 daily at bedtime. losartan (COZAAR) 25 mg tablet Take 1 tablet by mouth once daily. For high blood pressure. atorvastatin (LIPITOR) 10 mg tablet Take 1 tablet by mouth once daily. metFORMIN (GLUCOPHAGE) 500 mg tablet Take 1 tablet by mouth two times a day with meals. ROCKLATAN 0.02-0.005 % ophthalmic solution Use 1 Drop in both eyes daily at bedtime. cyanocobalamin, vitamin B-12, (VITAMIN B12 ORAL) Take 1 tablet by mouth once daily. dorzolamide-timolol (COSOPT) 22.3-6.8 mg/mL ophthalmic solution Use 1 Drop in both eyes twice daily. methotrexate 2.5 mg tablet 6 tabs [...] facility-administered medications for this visit. Objective BP 114/70 (BP Site: Right Arm, BP Position: Sitting, BP Cuff Size: Large Adult) Pulse 80 Temp 36.8 ?C (98.3 ?F) (Left Tympanic) Wt 63.2 kg (139 lb 5.3 oz) BMI 25.69 kg/m? Physical Exam Constitutional: General: She is not in acute distress. HENT: Head: Normocephalic. Nose: No rhinorrhea. Eyes: General: No scleral icterus. Conjunctiva/sclera: Conjunctivae normal. Cardiovascular: Rate and Rhythm: Normal rate and regular rhythm. Heart sounds: No murmur heard. No gallop. Pulmonary: Effort: No respiratory distress. Breath sounds: No wheezing or rales. Abdominal: General: There is no distension. Palpations: Abdomen is soft. Tenderness: There is no abdominal tenderness. Musculoskeletal: Right lower le+ Pitting Edema present. Left lower le+ Pitting Edema present. Skin: Comments: 2-3 small areas of dried sacral decubiti. Neurological: General: No focal deficit present. Mental Status: She is alert. Motor: Weakness (legs weak.) present. Gait: Gait abnormal. Comments: Rollator dependent. ASSESSMENT/PLAN: 1. History of gastroenteritis - ICD9: V12.79, ICD10: Z87.19 (primary diagnosis) - Resolved. - COMPLETE BLOOD COUNT 2. Encounter for immunization - ICD9: V03.89, ICD10: Z23 - INFLUENZA VACCINE, PRSV FREE, AGE 65+ YR, HIGH DOSE, TRIVALENT (FLUZONE HIGH-DOSE) 3. History of encephalopathy - ICD9: V12.49, ICD10: Z86.69 - Resolved. 4. Hyponatremia - ICD9: 27 (more content not included)... [facility] (INTMWS) YANN ADAIR ([id number]) 1935 F Date Time Provider Department 07/23/25 FITZ WALTERS INTWS During your visit today, we recorded the following information about you: Evelyne Moura, KEREN 07/23/2025 8:57 AM Signed Marilia from [facility] Lab calls and reports that patient was seen at [facility] hospital. Patient had testing done on stool. Patient was positive for OVA parasite. Marilia is faxing over results to office. Patient has hospital follow up scheduled with Dr. Walters today. Evelyne Moura RN Allergies As of Date: 07/23/2025 Noted Allergy Reaction SULFUR 11/07/2007 4 - Hives Date Reviewed: 07/23/2025 Reviewed by: Alee Brown LPN - Fully Assessed Reason for Visit: Results [95] Prescriptions as of 07/23/2025 - pantoprazole DR (PROTONIX) 40 mg tablet Take 1 tablet by mouth once daily. - sodium chloride soluble tablet 1 g 1 g three times a day. - mirabegron (MYRBETRIQ) 25 mg Tb24 daily at bedtime. - losartan (COZAAR) 25 mg tablet Take 1 tablet by mouth once daily. For high blood pressure. - atorvastatin (LIPITOR) 10 mg tablet Take 1 tablet by mouth once daily. - metFORMIN (GLUCOPHAGE) 500 mg tablet Take 1 tablet by mouth two times a day with meals. - ROCKLATAN 0.02-0.005 % ophthalmic solution Use 1 Drop in both eyes daily at bedtime. - cyanocobalamin, vitamin B-12, (VITAMIN B12 ORAL) Take 1 tablet by mouth once daily. - dorzolamide-timolol (COSOPT) 22.3-6.8 mg/mL ophthalmic solution Use 1 Drop in both eyes twice daily. - methotrexate 2.5 mg tablet 6 tabs [...] of 04/10/2010: Problem List As Of Date 07/23/2025 Noted Resolved Generalized osteoarthrosis [M15.9] 05/20/2004 Essential [...] pes planus [Q66.50] 10/23/2010 Vitamin D deficiency [E55.9] 03/27/2011 Cellulitis and abscess of toe, unspecified [L03*09/07/2011 10/06/2011 Dermatophytosis of nail [B35.1] 09/07/2011 LGI bleed [K92.2] 10/24/2014 09/11/2015 Pes planus of both feet [M21.41, M21.42] 06/23/2015 06/23/2015 Arthritis, midfoot [M19.079] 06/23/2015 Nocturia [R35.1] 03/12/2016 Adjustment disorder with mixed anxiety and depr*03/12/2016 10/31/2021 Urge incontinence of urine [N39.41] 06/16/2016 Exudative age-related macular degeneration of b*2023 Glaucoma [H40.9] 02/23/2023 Encounter Status:Closed by EVELYNE MOURA on 07/23/25 Normal [facility] Magnesium SerPl-mCncon 07-23 Magnesium [Mass/Vol] 1.6 mg/dL Low 1.7-2.3 [facility] Comment on above: Order Comment: Speci men Type: BLOOD SPECIMENOrdering Facility: [facility] Address: [address] [place] [address] [place] [address] Performed By: #### 1 9123-9, 20379-3 ####[facility] LABCLIA [id number] [place] [address] [place] Ova and Parasites 8623on OP Normal [facility] Comment on above: Performed By: #### M 600.5000 ####[facility] [address] [place], [address] 12 Lead EKGon 07-18-2025 12 Lead EKG Normal [facility] Absolute lymphocyte countOrd ered By: Benny Junior on 07-18-2025 Lymphocytes Auto (Unsp spec) [#/Vol] 1.69 10*3/uL 0.83-4.51 [facility] Absolute neutrophil countOrd ered By: Benny Junior on 07-18-2025 Neutrophils (Bld) [#/Vol] 3.4 10*3/uL 2.0-7.7 [facility] Anion gap in Serum or Plasma Ordered By: Benny Junior on 07-18-2025 Anion gap [Moles/Vol] 8 mmol/L 5-15 [facility] Automated lymphocyte count a s percentage of total leukocytesOrdered By: Benny Junior on 07-18-2025 Lymphocytes/100 WBC Auto (Unsp spec) 26.6 % 19-41 [facility] BUN/creatinine ratioOrdered By: Benny Junior on 07-18-2025 Urea nitrogen/Creatinine [Mass ratio] 25.0 mg/mg High 10- [facility] Basic Metabolic Profile (BMP )on 07-18-2025 BUN/CRE 25.0 RATIO High 10- [facility] Comment on above: Performed By: #### L 500.2500, L100.0100 ####[facility] [address] [place], [address] Calcium [Mass/Vol] 9.3 mg/dL Normal 7.6-11.0 [facility] Comment on above: Performed By: #### L 500.2500, L100.0100 ####[facility] [address] [place], [address] Chloride [Moles/Vol] 100 mmol/L Normal 98-108 [facility] Comment on above: Performed By: #### L 500.2500, L100.0100 ####[facility] [address] [place], [address] CO2 [Moles/Vol] 24.1 mmol/L Normal 21.0-32.0 [facility] Comment on above: Performed By: #### L 500.2500, L100.0100 ####[facility] [address] [place], [address] Creatinine [Mass/Vol] 0.67 mg/dL Low 0.70-1.20 [facility] Comment on above: Performed By: #### L 500.2500, L100.0100 ####[facility] [address] [place], [address] ECRCL 44.63 ml/min Low 50-250 [facility] Comment on above: Performed By: #### L 500.2500, L100.0100 ####[facility] [address] [place], [address] GAP 8 Normal 5-15 [facility] Comment on above: Performed By: #### L 500.2500, L100.0100 ####[facility] [address] [place], [address] GFR/1.73 sq M.predicted among non-blacks MDRD (S/P/Bld) [Vol rate/Area] 84 mL/min/{1.73_m2} Normal >60 [facility] Comment on above: Result Comment: mL/m in/1.73m2 CKD-EPI Creatinine Equation (2020) Performed By: #### L 500.2500, L100.0100 ####[facility] [address] [place], [address] Glucose [Mass/Vol] 117 mg/dL High 70-99 [facility] Comment on above: Performed By: #### L 500.2500, L100.0100 ####[facility] [address] [place], [address] Potassium [Moles/Vol] 4.2 mmol/L Normal 3.3-5.1 [facility] Comment on above: Performed By: #### L 500.2500, L100.0100 ####[facility] [address] [place], [address] Sodium [Moles/Vol] 132 mmol/L Low 133-145 [facility] Comment on above: Performed By: #### L 500.2500, L100.0100 ####[facility] [address] [place], [address] Urea nitrogen [Mass/Vol] 17 mg/dL Normal 4-19 [facility] Comment on above: Performed By: #### L 500.2500, L100.0100 ####[facility] [address] [place], [address] Basophil percentageOrdered B y: Benny Taylorarikriss on 07-18-2025 Basophils/100 WBC (Bld) 0.2 % 0-1 [facility] Bedside Glucoseon 07-18-2025 FINGERSTICK GLU 99 mg/dL Normal 74-106 [facility] Comment on above: Result Comment: CARLOS ODONNELL OF PATIENT CARE PER NURSING PROTOCOL Performed By: #### L 501.080 ####[facility] [address] [place], [address] FINGERSTICK GLU 84 mg/dL Normal 74-106 [facility] Comment on above: Result Comment: CARLOS GUYENT OF PATIENT CARE PER NURSING PROTOCOL Performed By: #### L 501.080 ####[facility] [address] [place], [address] CBC W/Diff, Automatedon Absolute Lymph 1.69 X10 3/uL Normal 0.83-4.51 [facility] Comment on above: Performed By: #### L 500.2500, L100.0100 ####[facility] [address] [place], [address] Absolute Neut 3.4 X10 3/uL Normal 2.0-7.7 [facility] Comment on above: Performed By: #### L 500.2500, L100.0100 ####[facility] [address] [place], [address] Basophils/100 WBC (Bld) 0.2 % Normal 0-1 [facility] Comment on above: Performed By: #### L 500.2500, L100.0100 ####[facility] [address] [place], [address] Eosinophils/100 WBC (Bld) 1.4 % Normal 0-5 [facility] Comment on above: Performed By: #### L 500.2500, L100.0100 ####[facility] [address] [place], [address] Erythrocyte distribution width (RBC) [Ratio] 13.6 % Normal 11.6-14.6 [facility] Comment on above: Performed By: #### L 500.2500, L100.0100 ####[facility] [address] [place], [address] Hematocrit (Bld) [Volume fraction] 30.0 % Low 37-47 [facility] Comment on above: Performed By: #### L 500.2500, L100.0100 ####[facility] [address] [place], [address] Hemoglobin (Bld) [Mass/Vol] 10.0 g/dL Low 12.0-15.0 [facility] Comment on above: Performed By: #### L 500.2500, L100.0100 ####[facility] [address] [place], [address] IG% 0.500 Normal 0.0-0.9 [facility] Comment on above: Result Comment: IG% - Immature Granulocytes (promyelocytes, myelocytes andmetamyelocytes) > 1% indicates that a LEFT SHIFT is Present. Performed By: #### L 500.2500, L100.0100 ####[facility] [address] [place], [address] Lymphocytes/100 WBC (Bld) 26.6 % Normal 19-41 [facility] Comment on above: Performed By: #### L 500.2500, L100.0100 ####[facility] [address] [place], [address] MCH (RBC) [Entitic mass] 31.8 pg Normal 27.0-32.0 [facility] Comment on above: Performed By: #### L 500.2500, L100.0100 ####[facility] [address] [place], [address] MCHC (RBC) [Mass/Vol] 33.3 g/dL Normal 32-36 [facility] Comment on above: Performed By: #### L 500.2500, L100.0100 ####[facility] [address] [place], [address] MCV (RBC) [Entitic vol] 95.5 fL Normal 81-99 [facility] Comment on above: Performed By: #### L 500.2500, L100.0100 ####[facility] [address] [place], [address] Monocytes/100 WBC (Bld) 18.4 % High 0-10 [facility] Comment on above: Performed By: #### L 500.2500, L100.0100 ####[facility] [address] [place], [address] Neutrophils/100 WBC (Bld) 52.9 % Normal 47-70 [facility] Comment on above: Performed By: #### L 500.2500, L100.0100 ####[facility] [address] [place], [address] Nucleated RBC (Bld) [#/Vol] 0 10*3/uL Normal 0-5 [facility] Comment on above: Performed By: #### L 500.2500, L100.0100 ####[facility] [address] [place], [address] Platelet mean volume (Bld) [Entitic vol] 9.9 fL Normal 6.2-12.0 [facility] Comment on above: Performed By: #### L 500.2500, L100.0100 ####[facility] [address] [place], [address] Platelets (Bld) [#/Vol] 183 10*3/uL Normal 150-450 [facility] Comment on above: Performed By: #### L 500.2500, L100.0100 ####[facility] [address] [place], [address] RBC (Bld) [#/Vol] 3.14 10*6/uL Low 4.2-5.4 [facility] Comment on above: Performed By: #### L 500.2500, L100.0100 ####[facility] [address] [place], [address] RDW SD 46.3 fl High 35.1-43.9 [facility] Comment on above: Performed By: #### L 500.2500, L100.0100 ####[facility] [address] [place], [address] WBC (Bld) [#/Vol] 6.4 10*3/uL Normal 4.4-11.0 [facility] Comment on above: Performed By: #### L 500.2500, L100.0100 ####[facility] [address] [place], [address] Carbon dioxide, total [Moles /volume] in Central venous bloodOrdered By: Benny Junior on 07-18-2025 CO2 [Moles/Vol] 24.1 mmol/L 21.0-32.0 [facility] Chloride assayOrdered By: Shelley Junior on 07-18-2025 Chloride [Moles/Vol] 100 mmol/L 98-108 [facility] Discharge Instructionon 09-0 Discharge Instruction Normal [facility] EGD Reporton 07-18-2025 EGD Report Normal [facility] Electrocardiogram reportOrde red By: Kenzie Nathan on 07-18-2025 EKG study [facility] Cardiovascular Services [address] [place] [address] 12 Lead EKG 07/18/25 0604 MR#: [id number] Acct: [id number] Name: YANN ADAIR Rep #:[id number] : 1935 89 From: Kenzie tyson MD Attending Dr: Dr. Benny Junior, Status: ADM IN Ordering Dr: Benny Junior DO Date: 07/18/25 Location: [facility] Sex: F C Admitted: 07/14/25 Test Reason : AM EKG Blood Pressure : */* mmHG Vent. Rate : 69 BPM Atrial Rate : 69 BPM P-R Int : 152 ms QRS Dur : 80 ms QT Int : 382 ms P-R-T Axes : 27 18 12 degrees QTcB Int : 409 ms Sinus rhythm with Premature atrial complexes Otherwise normal ECG When compared with ECG of 14-Jul-2025 21:41, Sinus rhythm has replaced Atrial fibrillation Vent. rate has decreased by [address] no longer depressed in Anterior leads Nonspecific T wave abnormality no longer evident in Lateral leads Confirmed by Kenzie Nathan ([id number]), acquisition editor GILA TURNER ([id number]) on 07/18/2025 8:12:54 AM Referred By: Confirmed By: Kenzie Nathan 07/18/25 0813 Date _ Kenzie Nathan MD CC: Dr. Benny Junior, DO; Dr. Fitz Walters MD ~ Signed [facility] Other Phone: Eosinophil percentageOrdered By: Benny Junior on 07-18-2025 Eosinophils/100 WBC (Bld) 1.4 % 0-5 [facility] Erythrocyte distribution wid th ratioOrdered By: Benny Junior on 07-18-2025 Erythrocyte distribution width (RBC) [Ratio] 13.6 % 11.6-14.6 [facility] Erythrocyte distribution wid th standard deviationOrdered By: Benny Junior on 07-18-2025 Erythrocyte distribution width (RBC) [Ratio] 46.3 fl High 35.1-43.9 [facility] Glomerular filtration rate ( GFR) estimation/1.73 sq m using serum, plasma, or whole bOrdered By: Benny Junior on 07-18-2025 GFR/1.73 sq M.predicted among non-blacks MDRD (S/P/Bld) [Vol rate/Area] 84 mL/min/{1.73_m2} >60 [facility] Comment on above: mL/min/1.73m2 CKD-EP I Creatinine Equation (2020) [facility] de[facility]dered By: Benny Junior on 07-18-2025 Glucose [Mass/Vol] 99 mg/dL 74-106 [facility] Comment on above: MANAGEMENT OF PATIEN T CARE PER NURSING PROTOCOL Hematocrit Auto (Bld) [Volum e fraction]Ordered By: Benny Junior on 07-18-2025 Hematocrit (Bld) [Volume fraction] 30.0 % Low 37-47 [facility] Hemoglobin measurementOrdere d By: Benny Junior on 07-18-2025 Hemoglobin (Bld) [Mass/Vol] 10.0 g/dL Low 12.0-15.0 [facility] Immature granulocytes/100 WB C Auto (Bld)Ordered By: Benny Junior on 07-18-2025 Immature granulocytes/100 WBC (Bld) 0.500 % 0.0-0.9 [facility] Comment on above: IG% - Immature Granu locytes (promyelocytes, myelocytes and metamyelocytes) > 1% indicates that a LEFT SHIFT is Present. Immunohistochemical Stainson 07-18-2025 Immunohistochemical Stains Normal [facility] Comment on above: Performed By: #### P [facility] ####[facility] [address] [place], [address] MCV (mean corpuscular volume ) determinationOrdered By: Benny Junior on 07-18-2025 MCV (RBC) [Entitic vol] 95.5 fL 81-99 [facility] MR/CON.PCM.GIon 07-18-2025 MR/CON.PCM.GI Normal [facility] MR/OP.PROVATon 07-18-2025 MR/OP.PROVAT Normal [facility] MR/POSTOP.ANEon 07-18-2025 MR/POSTOP.ANE Normal [facility] MR/XNFDGJQD3ky 07-18-2025 MR/POSTOPAN2 Normal [facility] Mean corpuscular hemoglobin (MCH) determinationOrdered By: Benny Junior on 07-18-2025 MCH (RBC) [Entitic mass] 31.8 pg 27.0-32.0 [facility] Mean corpuscular hemoglobin concentration (MCHC) determinationOrdered By: Benny Junior on 07-18-2025 MCHC (RBC) [Mass/Vol] 33.3 g/dL 32-36 [facility] Mean platelet volume determi nationOrdered By: Benny Junior on 07-18-2025 Platelet mean volume (Bld) [Entitic vol] 9.9 fL 6.2-12.0 [facility] Monocyte percentageOrdered B y: Benny Junior on 07-18-2025 Monocytes/100 WBC (Bld) 18.4 % High 0-10 [facility] Neutrophil percentageOrdered By: Benny Junior on 07-18-2025 Neutrophils/100 WBC (Bld) 52.9 % 47-70 [facility] Nucleated red blood cell per centageOrdered By: Benny Junior on 07-18-2025 Nucleated RBC/100 WBC (Bld) [Ratio] 0 % 0-5 [facility] Platelet countOrdered By: Shelley Junior on 07-18-2025 Platelets (Bld) [#/Vol] 183 10*3/uL 150-450 [facility] Potassium measurement (mass/ volume)Ordered By: Benny Junior on 07-18-2025 Potassium (Unsp spec) [Mass/Vol] 4.2 mmol/L 3.3-5.1 [facility] RBC Auto (Bld) [#/Vol]Ordere d By: Benny Junior on 07-18-2025 RBC (Bld) [#/Vol] 3.14 10*6/uL Low 4.2-5.4 [facility] Serum creatinine measurement (mass/volume)Ordered By: Benny Junior on 07-18-2025 Creatinine [Mass/Vol] 0.67 mg/dL Low 0.70-1.20 [facility] Serum glucose measurement (m ass/volume)Ordered By: Benny Junior on 07-18-2025 Glucose [Mass/Vol] 117 mg/dL High 70-99 [facility] Serum or plasma calcium rhonda urement (mass/volume)Ordered By: Benny Junior on 07-18-2025 Calcium [Mass/Vol] 9.3 mg/dL 7.6-11.0 [facility] Serum or plasma urea nitroge n measurement (mass/volume)Ordered By: Benny Junior on 07-18-2025 Urea nitrogen [Mass/Vol] 17 mg/dL 4-19 [facility] Sodium levelOrdered By: Benny Junior on 07-18-2025 Sodium [Moles/Vol] 132 mmol/L Low 133-145 [facility] White blood cell (WBC) count Ordered By: Benny Junior on 07-18-2025 WBC (Bld) [#/Vol] 6.4 10*3/uL 4.4-11.0 [facility] Basic Metabolic Profile (BMP )on 07-17-2025 BUN/CRE 27.1 RATIO High 10-20 [facility] Comment on above: Performed By: #### L 500.2500 ####[facility] [address] [place], [address] Calcium [Mass/Vol] 9.2 mg/dL Normal 7.6-11.0 [facility] Comment on above: Performed By: #### L 500.2500 ####[facility] [address] [place], [address] Chloride [Moles/Vol] 99 mmol/L Normal 98-108 [facility] Comment on above: Performed By: #### L 500.2500 ####[facility] [address] [place], [address] CO2 [Moles/Vol] 24.9 mmol/L Normal 21.0-32.0 [facility] Comment on above: Performed By: #### L 500.2500 ####[facility] [address] [place], [address] Creatinine [Mass/Vol] 0.60 mg/dL Low 0.70-1.20 [facility] Comment on above: Performed By: #### L 500.2500 ####[facility] [address] [place], [address] ECRCL 44.63 ml/min Low 50-250 [facility] Comment on above: Performed By: #### L 500.2500 ####[facility] [address] [place], [address] GAP 8 Normal 5-15 [facility] Comment on above: Performed By: #### L 500.2500 ####[facility] [address] [place], [address] GFR/1.73 sq M.predicted among non-blacks MDRD (S/P/Bld) [Vol rate/Area] 86 mL/min/{1.73_m2} Normal >60 [facility] Comment on above: Result Comment: mL/m in/1.73m2 CKD-EPI Creatinine Equation (2020) Performed By: #### L 500.2500 ####[facility] [address] [place], [address] Glucose [Mass/Vol] 126 mg/dL High 70-99 [facility] Comment on above: Performed By: #### L 500.2500 ####[facility] [address] [place], [address] Potassium [Moles/Vol] 4.3 mmol/L Normal 3.3-5.1 [facility] Comment on above: Performed By: #### L 500.2500 ####[facility] [address] [place], [address] Sodium [Moles/Vol] 131 mmol/L Low 133-145 [facility] Comment on above: Performed By: #### L 500.2500 ####[facility] [address] [place], [address] Urea nitrogen [Mass/Vol] 16 mg/dL Normal 4-19 [facility] Comment on above: Performed By: #### L 500.2500 ####[facility] [address] [place], [address] Bedside Glucoseon 07-17-2025 FINGERSTICK GLU 138 mg/dL High 74-106 [facility] Comment on above: Result Comment: CARLOS GEMENT OF PATIENT CARE PER NURSING PROTOCOL Performed By: #### L 501.080 ####[facility] [address] [place], [address] FINGERSTICK GLU 115 mg/dL High 74-106 [facility] Comment on above: Result Comment: CARLOS GEMENT OF PATIENT CARE PER NURSING PROTOCOL Performed By: #### L 501.080 ####[facility] [address] [place], [address] FINGERSTICK GLU 75 mg/dL Normal 74-106 [facility] Comment on above: Result Comment: CARLOS GEMENT OF PATIENT CARE PER NURSING PROTOCOL Performed By: #### L 501.080 ####[facility] [address] [place], [address] FINGERSTICK GLU 113 mg/dL High 74-106 [facility] Comment on above: Result Comment: CARLOS ODONNELL OF PATIENT CARE PER NURSING PROTOCOL Performed By: #### L 501.080 ####[facility] [address] [place], [address] Brain without Contraston Brain without Contrast Normal [facility] Electrocardiogram reportOrde red By: Kenzie Nathan on 07-17-2025 EKG study [facility] Cardiovascular Services [address] [place] [address] 12 Lead EKG 07/14/25 2141 MR#: [id number] Acct: [id number] Name: YANN ADAIR Rep #:[id number] : 1935 89 From: Kenzie tyson MD Attending Dr: Dr. Benny Junior DO Status: ADM IN Ordering Dr: Candido Quiroga DO Date: 07/14/25 Location: [facility] Sex: F C Admitted: 07/14/25 Test Reason : TACHYCARDIA Blood Pressure : */* mmHG Vent. Rate : 127 BPM Atrial Rate : * BPM P-R Int : * ms QRS Dur : 80 ms QT Int : 314 ms P-R-T Axes : * -5 -65 degrees QTcB Int : 456 ms Atrial fibrillation with rapid ventricular response Nonspecific ST and T wave abnormality Abnormal ECG When compared with ECG of 13-Jul-2025 20:49, MANUAL COMPARISON REQUIRED DATA IS UNCONFIRMED Confirmed by Kenzie Nathan ([id number]), acquisition editor DHARA CONROY ([id number]) on 07/17/2025 11:13:33 AM Referred By: QUIROGA Confirmed By: Kenzie Nathan 07/17/25 1113 Date _ Kenzie Nathan MD CC: Dr. Candido Quiroga DO; Dr. Benny Junior DO; Dr. iFtz Walters MD~ Signed [facility] Other Phone: EKG study [facility] Cardiovascular Services [address] [place] [address] 12 Lead EKG 07/13/252048 MR#: [id number] Acct: [id number] Name: YANN ADAIR Rep #:[id number] : 1935 89 From: Kenzie tyson MD Attending Dr: Dr. Benny Junior DO Status: ADM IN Ordering Dr: Luke Baez DO Date: 07/13/25 Location: [facility] Sex: F C Admitted: 07/14/25 Test Reason : DYSRHYTHMIA Blood Pressure : */* mmHG Vent. Rate : 83 BPM Atrial Rate : 83 BPM P-R Int : 160 ms QRS Dur : 72 ms QT Int : 354 ms P-R-T Axes : 16 -7 -11 degrees QTcB Int : 415 ms Sinus rhythm with Premature atrial complexes with Aberrant conduction Low voltage QRS Borderline ECG Confirmed by Kenzie Nathan ([id number]), acquisition editor DHARA CONROY ([id number]) on 07/17/2025 10:57:43 AM Referred By: Confirmed By: Kenzie Nathan 07/17/251056 Date _ Kenzie Nathan MD CC: Dr. Luke Baez DO; Dr. Benny Junior DO; Dr. Fitz Walters MD ~ Signed [facility] Other Phone: Magnetic resonance imaging r eportOrdered By: Ottoniel Hollis on 07-17-2025 Study report [facility] Imaging Services [address] [place] [address] Brain without Contrast MR#: [id number] Acct: [id number] Name: YANN ADAIR Rep #: [id number] : 1935 F 89 From: Thien Hollis MD PCP: Dr. Fitz Walters MD Status: A DM IN Study:Brain without Contrast Date of Exam: 07/17/25 Exam# [id number] Ordering Dr: Benny Villegas DO PROCEDURE: MRI BRAIN WITHOUT CONTRAST 07/17/2025 REASON FOR EXAM: MENTAL STATUS CHANGE TECHNIQUE: Procedure Code: MRIBR Modality: MR Procedure: BRAIN WITHOUT CONTRAST Multiplanar and multisequential MRI of the brain was performed without contrast. COMPARISON: Brain MRI 06/12/2022, CT head 07/13/2025. FINDINGS: No regions of abnormal restricted diffusion to indicate recent infarct. No evidence of acute intracranial hemorrhage, extra-axial collection, mass-effect, or other acute abnormality. Moderate generalized brain parenchymal volume loss with associated ex vacuo ventricular enlargement. Minimal scattered foci of leukoaraiosis in the supratentorial white matter and within the olga lidia, less than typically expected for patient's age. Preserved major vascular flow voids. Absent sleetmute ocular lenses. Mild peripheral mucosal thickening in the paranasal sinuses. No mastoid effusions. Visualized skull base and calvarium are unremarkable in appearance. MRI/Brain without Contrast IMPRESSION: No acute intracranial abnormality; no acute infarct. Moderate generalized brain parenchymal volume loss, and minimal leukoaraiosis. Reading Location: [facility] CC: Dr. Benny Junior DO; Dr. 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, [address] Calcium [Mass/Vol] 8.9 mg/dL Normal 7.6-11.0 [facility] Comment on above: Performed By: #### L 100.0500, L500.2500 ####[facility] [address] [place], [address] Chloride [Moles/Vol] 103 mmol/L Normal 98-108 [facility] Comment on above: Performed By: #### L 100.0500, L500.2500 ####[facility] [address] [place], [address] CO2 [Moles/Vol] 21.9 mmol/L Normal 21.0-32.0 [facility] Comment on above: Performed By: #### L 100.0500, L500.2500 ####[facility] [address] [place], [address] Creatinine [Mass/Vol] 0.67 mg/dL Low 0.70-1.20 [facility] Comment on above: Performed By: #### L 100.0500, L500.2500 ####[facility] [address] [place], [address] ECRCL 44.63 ml/min Low 50-250 [facility] Comment on above: Performed By: #### L 100.0500, L500.2500 ####[facility] [address] [place], [address] GAP 8 Normal 5-15 [facility] Comment on above: Performed By: #### L 100.0500, L500.2500 ####[facility] [address] [place], [address] GFR/1.73 sq M.predicted among non-blacks MDRD (S/P/Bld) [Vol rate/Area] 84 mL/min/{1.73_m2} Normal >60 [facility] Comment on above: Result Comment: mL/m in/1.73m2 CKD-EPI Creatinine Equation (2020) Performed By: #### L 100.0500, L500.2500 ####[facility] [address] [place], [address] Glucose [Mass/Vol] 105 mg/dL High 70-99 [facility] Comment on above: Performed By: #### L 100.0500, L500.2500 ####[facility] [address] [place], [address] Potassium [Moles/Vol] 3.7 mmol/L Normal 3.3-5.1 [facility] Comment on above: Performed By: #### L 100.0500, L500.2500 ####[facility] [address] [place], [address] Sodium [Moles/Vol] 132 mmol/L Low 133-145 [facility] Comment on above: Performed By: #### L 100.0500, L500.2500 ####[facility] [address] [place], [address] Urea nitrogen [Mass/Vol] 16 mg/dL Normal 4-19 [facility] Comment on above: Performed By: #### L 100.0500, L500.2500 ####[facility] [address] [place], [address] Bedside Glucoseon 07-16-2025 FINGERSTICK GLU 121 mg/dL High 74-106 [facility] Comment on above: Result Comment: CARLOS GEMENT OF PATIENT CARE PER NURSING PROTOCOL Performed By: #### L 501.080 ####[facility] [address] [place], [address] FINGERSTICK GLU 94 mg/dL Normal 74-106 [facility] Comment on above: Result Comment: CARLOS GEMENT OF PATIENT CARE PER NURSING PROTOCOL Performed By: #### L 501.080 ####[facility] [address] [place], [address] FINGERSTICK GLU 146 mg/dL High 74-106 [facility] Comment on above: Result Comment: CARLOS GEMENT OF PATIENT CARE PER NURSING PROTOCOL Performed By: #### L 501.080 ####[facility] [address] [place], [address] FINGERSTICK GLU 100 mg/dL Normal 74-106 [facility] Comment on above: Result Comment: CARLOS GEMENT OF PATIENT CARE PER NURSING PROTOCOL Performed By: #### L 501.080 ####[facility] [address] [place], [address] CBC-Complete Blood Cnt No Di ffon 07-16-2025 Erythrocyte distribution width (RBC) [Ratio] 13.4 % Normal 11.6-14.6 [facility] Comment on above: Performed By: #### L 100.0500, L500.2500 ####[facility] [address] [place], [address] Hematocrit (Bld) [Volume fraction] 32.5 % Low 37-47 [facility] Comment on above: Performed By: #### L 100.0500, L500.2500 ####[facility] [address] [place], [address] Hemoglobin (Bld) [Mass/Vol] 10.6 g/dL Low 12.0-15.0 [facility] Comment on above: Performed By: #### L 100.0500, L500.2500 ####[facility] [address] [place], [address] MCH (RBC) [Entitic mass] 31.7 pg Normal 27.0-32.0 [facility] Comment on above: Performed By: #### L 100.0500, L500.2500 ####[facility] [address] [place], [address] MCHC (RBC) [Mass/Vol] 32.6 g/dL Normal 32-36 [facility] Comment on above: Performed By: #### L 100.0500, L500.2500 ####[facility] [address] [place], [address] MCV (RBC) [Entitic vol] 97.3 fL Normal 81-99 [facility] Comment on above: Performed By: #### L 100.0500, L500.2500 ####[facility] [address] [place], [address] Platelet mean volume (Bld) [Entitic vol] 9.7 fL Normal 6.2-12.0 [facility] Comment on above: Performed By: #### L 100.0500, L500.2500 ####[facility] [address] [place], [address] Platelets (Bld) [#/Vol] 173 10*3/uL Normal 150-450 [facility] Comment on above: Performed By: #### L 100.0500, L500.2500 ####[facility] [address] [place], [address] RBC (Bld) [#/Vol] 3.34 10*6/uL Low 4.2-5.4 [facility] Comment on above: Performed By: #### L 100.0500, L500.2500 ####[facility] [address] [place], [address] RDW SD 47.7 fl High 35.1-43.9 [facility] Comment on above: Performed By: #### L 100.0500, L500.2500 ####[facility] [address] [place], [address] WBC (Bld) [#/Vol] 4.5 10*3/uL Normal 4.4-11.0 [facility] Comment on above: Performed By: #### L 100.0500, L500.2500 ####[facility] [address] [place], [address] Basic Metabolic Profile (BMP )on 07-15-2025 BUN/CRE 24.4 RATIO High 10-20 [facility] Comment on above: Performed By: #### L 500.2500 ####[facility] [address] [place], [address] Calcium [Mass/Vol] 9.0 mg/dL Normal 7.6-11.0 [facility] Comment on above: Performed By: #### L 500.2500 ####[facility] [address] [place], [address] Chloride [Moles/Vol] 96 mmol/L Low 98-108 [facility] Comment on above: Performed By: #### L 500.2500 ####[facility] [address] [place], [address] CO2 [Moles/Vol] 21.5 mmol/L Normal 21.0-32.0 [facility] Comment on above: Performed By: #### L 500.2500 ####[facility] [address] [place], [address] Creatinine [Mass/Vol] 0.71 mg/dL Normal 0.70-1.20 [facility] Comment on above: Performed By: #### L 500.2500 ####[facility] [address] [place], [address] ECRCL 44.63 ml/min Low 50-250 [facility] Comment on above: Performed By: #### L 500.2500 ####[facility] [address] [place], [address] GAP 11 Normal 5-15 [facility] Comment on above: Performed By: #### L 500.2500 ####[facility] [address] [place], [address] GFR/1.73 sq M.predicted among non-blacks MDRD (S/P/Bld) [Vol rate/Area] 81 mL/min/{1.73_m2} Normal >60 [facility] Comment on above: Result Comment: mL/m in/1.73m2 CKD-EPI Creatinine Equation (2020) Performed By: #### L 500.2500 ####[facility] [address] [place], [address] Glucose [Mass/Vol] 137 mg/dL High 70-99 [facility] Comment on above: Performed By: #### L 500.2500 ####[facility] [address] [place], [address] Potassium [Moles/Vol] 4.1 mmol/L Normal 3.3-5.1 [facility] Comment on above: Performed By: #### L 500.2500 ####[facility] [address] [place], [address] Sodium [Moles/Vol] 128 mmol/L Low 133-145 [facility] Comment on above: Performed By: #### L 500.2500 ####[facility] [address] [place], [address] Urea nitrogen [Mass/Vol] 17 mg/dL Normal 4-19 [facility] Comment on above: Performed By: #### L 500.2500 ####[facility] [address] [place], [address] Bedside Glucoseon 07-15-2025 FINGERSTICK GLU 139 mg/dL High 74-106 [facility] Comment on above: Result Comment: CARLOS GEMENT OF PATIENT CARE PER NURSING PROTOCOL Performed By: #### L 501.080 ####[facility] [address] [place], [address] FINGERSTICK GLU 150 mg/dL High 74-106 [facility] Comment on above: Result Comment: CARLOS GEMENT OF PATIENT CARE PER NURSING PROTOCOL Performed By: #### L 501.080 ####[facility] [address] [place], [address] FINGERSTICK GLU 132 mg/dL High 74-106 [facility] Comment on above: Result Comment: CARLOS GEMENT OF PATIENT CARE PER NURSING PROTOCOL Performed By: #### L 501.080 ####[facility] [address] [place], [address] FINGERSTICK GLU 132 mg/dL High 74-106 [facility] Comment on above: Result Comment: CARLOS GEMENT OF PATIENT CARE PER NURSING PROTOCOL Performed By: #### L 501.080 ####[facility] [address] [place], [address] FINGERSTICK GLU 144 mg/dL High 74-106 [facility] Comment on above: Result Comment: CARLOS ODONNELL OF PATIENT CARE PER NURSING PROTOCOL Performed By: #### L 501.080 ####[facility] [address] [place], [address] CBC-Complete Blood Cnt No Di ffon 07-15-2025 Erythrocyte distribution width (RBC) [Ratio] 13.7 % Normal 11.6-14.6 [facility] Comment on above: Performed By: #### L 100.0500 ####[facility] [address] [place], [address] Hematocrit (Bld) [Volume fraction] 34.2 % Low 37-47 [facility] Comment on above: Performed By: #### L 100.0500 ####[facility] [address] [place], [address] Hemoglobin (Bld) [Mass/Vol] 11.3 g/dL Low 12.0-15.0 [facility] Comment on above: Performed By: #### L 100.0500 ####[facility] [address] [place], [address] MCH (RBC) [Entitic mass] 32.1 pg High 27.0-32.0 [facility] Comment on above: Performed By: #### L 100.0500 ####[facility] [address] [place], [address] MCHC (RBC) [Mass/Vol] 33.0 g/dL Normal 32-36 [facility] Comment on above: Performed By: #### L 100.0500 ####[facility] [address] [place], [address] MCV (RBC) [Entitic vol] 97.2 fL Normal 81-99 [facility] Comment on above: Performed By: #### L 100.0500 ####[facility] [address] [place], [address] Platelet mean volume (Bld) [Entitic vol] 9.9 fL Normal 6.2-12.0 [facility] Comment on above: Performed By: #### L 100.0500 ####[facility] [address] [place], [address] Platelets (Bld) [#/Vol] 184 10*3/uL Normal 150-450 [facility] Comment on above: Performed By: #### L 100.0500 ####[facility] [address] [place], [address] RBC (Bld) [#/Vol] 3.52 10*6/uL Low 4.2-5.4 [facility] Comment on above: Performed By: #### L 100.0500 ####[facility] [address] [place], [address] RDW SD 48.0 fl High 35.1-43.9 [facility] Comment on above: Performed By: #### L 100.0500 ####[facility] [address] [place], [address] WBC (Bld) [#/Vol] 4.3 10*3/uL Low 4.4-11.0 [facility] Comment on above: Performed By: #### L 100.0500 ####[facility] [address] [place], [address] Consultation - Nephrologyon 07-15-2025 Consultation - Nephrology Normal [facility] 12 Lead EKGon 07-14-2025 12 Lead EKG Normal [facility] Abdomen/Pelvis W IV Cont ONL Yon 07-14-2025 Abdomen/Pelvis W IV Cont ONLY Normal [facility] Alcohol, Blood (Medical)-Ser umon 07-14-2025 SERUM ETOH < 10.1 Normal <=10.0 [facility] Comment on above: Result Comment: This test is for medical purposes only. The legaldefinition of intoxication varies according to local law. Performed By: #### L 505.5000, L501.9100, L503.0106, L501.7300, L501.9520 ####[facility] [address] [place], [address] Basic Metabolic Profile (BMP )on 07-14-2025 BUN/CRE 27.6 RATIO High 10-20 [facility] Comment on above: Performed By: #### L 500.2500 ####[facility] [address] [place], [address] Calcium [Mass/Vol] 9.2 mg/dL Normal 7.6-11.0 [facility] Comment on above: Performed By: #### L 500.2500 ####[facility] [address] [place], [address] Chloride [Moles/Vol] 93 mmol/L Low 98-108 [facility] Comment on above: Performed By: #### L 500.2500 ####[facility] [address] [place], [address] CO2 [Moles/Vol] 18.3 mmol/L Low 21.0-32.0 [facility] Comment on above: Performed By: #### L 500.2500 ####[facility] [address] [place], [address] Creatinine [Mass/Vol] 0.70 mg/dL Normal 0.70-1.20 [facility] Comment on above: Performed By: #### L 500.2500 ####[facility] [address] [place], [address] ECRCL 44.63 ml/min Low 50-250 [facility] Comment on above: Performed By: #### L 500.2500 ####[facility] [address] [place], [address] GAP 14 Normal 5-15 [facility] Comment on above: Performed By: #### L 500.2500 ####[facility] [address] [place], [address] GFR/1.73 sq M.predicted among non-blacks MDRD (S/P/Bld) [Vol rate/Area] 83 mL/min/{1.73_m2} Normal >60 [facility] Comment on above: Result Comment: mL/m in/1.73m2 CKD-EPI Creatinine Equation (2020) Performed By: #### L 500.2500 ####[facility] [address] [place], [address] Glucose [Mass/Vol] 196 mg/dL High 70-99 [facility] Comment on above: Performed By: #### L 500.2500 ####[facility] [address] [place], [address] Potassium [Moles/Vol] 4.0 mmol/L Normal 3.3-5.1 [facility] Comment on above: Performed By: #### L 500.2500 ####[facility] [address] [place], [address] Sodium [Moles/Vol] 126 mmol/L Low 133-145 [facility] Comment on above: Performed By: #### L 500.2500 ####[facility] [address] [place], [address] Urea nitrogen [Mass/Vol] 19 mg/dL Normal 4-19 [facility] Comment on above: Performed By: #### L 500.2500 ####[facility] [address] [place], [address] Bedside Glucoseon 07-14-2025 FINGERSTICK GLU 143 mg/dL High 74-106 [facility] Comment on above: Result Comment: CARLOS GEMENT OF PATIENT CARE PER NURSING PROTOCOL Performed By: #### L 501.080 ####[facility] [address] [place], [address] FINGERSTICK GLU 156 mg/dL High 74-106 [facility] Comment on above: Result Comment: CARLOS GEMENT OF PATIENT CARE PER NURSING PROTOCOL Performed By: #### L 501.080 ####[facility] [address] [place], [address] FINGERSTICK GLU 175 mg/dL High 74-106 [facility] Comment on above: Result Comment: CARLOS GEMENT OF PATIENT CARE PER NURSING PROTOCOL Performed By: #### L 501.080 ####[facility] [address] [place], [address] FINGERSTICK GLU 161 mg/dL High -106 [facility] Comment on above: Result Comment: CARLOS GEMENT OF PATIENT CARE PER NURSING PROTOCOL Performed By: #### L 501.080 ####[facility] [address] [place], [address] Bilirubin, totalOrdered By: Candido Huffman on 07-14-2025 Bilirubin [Mass/Vol] 0.27 mg/dL 0.00-1.30 [facility] Blood manual differential co mment interpretation (narrative result)Ordered By: Candido Huffman on 07-14-2025 Manual differential comment Devendra (Bld) [Interp] SCANNED [facility] Comment on above: LYMPHOPENIA PRESENTL EFT SHIFT: BANDS PRESENT 2+ CBC W/Diff, Automatedon 06-17 SMEAR COMMENT SCANNED Normal [facility] Comment on above: Result Comment: LYMP HOPENIA PRESENTLEFT SHIFT: BANDS PRESENT 2+ Performed By: #### L 501.9985, L500.4050, L500.4100, L501.2300, L100.0100 ####[facility] [address] [place], [address] CDIFF (PCR)on 07-14-2025 CDIFF Is the patient receiving laxatives? N New/unexplained onset of 3 or more stools in past 24 hrs? Y Pending 027 027 NAP1-B1 Presumptive Negative *for epidemiolologic???use C. Diff PCR Negative- No toxigenic C. Diff Detected Normal [facility] Comment on above: Performed By: #### M 100.0605, M100.6796, M100.637 ####[facility] [address] [place], [address] Calculated very low density lipoprotein (VLDL) cholesterol measurementOrdered By: Candido Huffman on 07-14-2025 Calculated very low density lipoprotein (VLDL) cholesterol measurement 13 mg/dL 5-40 [facility] Clostridium difficile detect ion by polymerase chain reactionOrdered By: Candido Huffman on 07-14-2025 C. difficile DNA STACY+probe Ql (Unsp spec) [facility] Comprehensive Metabolic Prof ilon 07-14-2025 Albumin [Mass/Vol] 3.4 g/dL Normal 3.4-4.8 [facility] Comment on above: Performed By: #### L 501.9985, L500.4050, L500.4100, L501.2300, L100.0100 ####[facility] [address] [place], [address] Albumin/Globulin [Mass ratio] 1.3 {ratio} Normal 0.9-2.4 [facility] Comment on above: Performed By: #### L 501.9985, L500.4050, L500.4100, L501.2300, L100.0100 ####[facility] [address] [place], [address] ALK PHOS 61 U/L Normal 35-104 [facility] Comment on above: Performed By: #### L 501.9985, L500.4050, L500.4100, L501.2300, L100.0100 ####[facility] [address] [place], [address] ALT [Catalytic activity/Vol] 11 U/L Normal <=34 [facility] Comment on above: Performed By: #### L 501.9985, L500.4050, L500.4100, L501.2300, L100.0100 ####[facility] [address] [place], [address] AST [Catalytic activity/Vol] 20 U/L Normal <=31 [facility] Comment on above: Performed By: #### L 501.9985, L500.4050, L500.4100, L501.2300, L100.0100 ####[facility] [address] [place], [address] Bilirubin [Mass/Vol] 0.27 mg/dL Normal 0.00-1.30 [facility] Comment on above: Performed By: #### L 501.9985, L500.4050, L500.4100, L501.2300, L100.0100 ####[facility] [address] [place], [address] BUN/CRE 28.1 RATIO High 10-20 [facility] Comment on above: Performed By: #### L 501.9985, L500.4050, L500.4100, L501.2300, L100.0100 ####[facility] [address] [place], [address] Calcium [Mass/Vol] 8.8 mg/dL Normal 7.6-11.0 [facility] Comment on above: Performed By: #### L 501.9985, L500.4050, L500.4100, L501.2300, L100.0100 ####[facility] [address] [place], [address] Chloride [Moles/Vol] 95 mmol/L Low 98-108 [facility] Comment on above: Performed By: #### L 501.9985, L500.4050, L500.4100, L501.2300, L100.0100 ####[facility] [address] [place], [address] CO2 [Moles/Vol] 18.1 mmol/L Low 21.0-32.0 [facility] Comment on above: Performed By: #### L 501.9985, L500.4050, L500.4100, L501.2300, L100.0100 ####[facility] [address] [place], [address] Creatinine [Mass/Vol] 0.69 mg/dL Low 0.70-1.20 [facility] Comment on above: Performed By: #### L 501.9985, L500.4050, L500.4100, L501.2300, L100.0100 ####[facility] [address] [place], [address] ECRCL 44.63 ml/min Low 50-250 [facility] Comment on above: Performed By: #### L 501.9985, L500.4050, L500.4100, L501.2300, L100.0100 ####[facility] [address] [place], [address] GAP 14 Normal 5-15 [facility] Comment on above: Performed By: #### L 501.9985, L500.4050, L500.4100, L501.2300, L100.0100 ####[facility] [address] [place], [address] GFR/1.73 sq M.predicted among non-blacks MDRD (S/P/Bld) [Vol rate/Area] 83 mL/min/{1.73_m2} Normal >60 [facility] Comment on above: Result Comment: mL/m in/1.73m2 CKD-EPI Creatinine Equation (2020) Performed By: #### L 501.9985, L500.4050, L500.4100, L501.2300, L100.0100 ####[facility] [address] [place], [address] Globulin (S) [Mass/Vol] 2.6 g/dL Normal 2.2-4.2 [facility] Comment on above: Performed By: #### L 501.9985, L500.4050, L500.4100, L501.2300, L100.0100 ####[facility] [address] [place], [address] Glucose [Mass/Vol] 178 mg/dL High 70-99 [facility] Comment on above: Performed By: #### L 501.9985, L500.4050, L500.4100, L501.2300, L100.0100 ####[facility] [address] [place], [address] Potassium [Moles/Vol] 3.7 mmol/L Normal 3.3-5.1 [facility] Comment on above: Performed By: #### L 501.9985, L500.4050, L500.4100, L501.2300, L100.0100 ####[facility] [address] [place], [address] Sodium [Moles/Vol] 127 mmol/L Low 133-145 [facility] Comment on above: Performed By: #### L 501.9985, L500.4050, L500.4100, L501.2300, L100.0100 ####[facility] [address] [place], [address] T PROT 6.0 g/dL Normal 5.9-8.4 [facility] Comment on above: Performed By: #### L 501.9985, L500.4050, L500.4100, L501.2300, L100.0100 ####[facility] [address] [place], [address] Urea nitrogen [Mass/Vol] 20 mg/dL High 4-19 [facility] Comment on above: Performed By: #### L 501.9985, L500.4050, L500.4100, L501.2300, L100.0100 ####[facility] [address] [place], [address] ENTERIC PATHOGEN PANEL STOOL on 07-14-2025 EP PANEL Normal [facility] Comment on above: Performed By: #### M 100.0605, M100.6796, M100.637 ####[facility] [address] [place], [address] Folate [Mass/volume] in Seru m or PlasmaOrdered By: Candido Huffman on 07-14-2025 Folate [Mass/Vol] 16.20 ng/mL 4.60-34.80 [facility] Folates,Serum (Folic Acid)on 07-14-2025 FOLATES,SERUM 16.20 ng/mL Normal 4.60-34.80 [facility] Comment on above: Performed By: #### L 506.0200, L501.5200 ####[facility] [address] [place], [address] Hemoglobin A1con 07-14-2025 HbA1c (Bld) [Mass fraction] 5.7 % Normal <=5.6 [facility] Comment on above: Result Comment: Norm al < 5.7 % Prediabetic 5.7 - 6.4 % Diabetic >or= 6.5 % Please note range changes. Performed By: #### L 501.9985, L500.4050, L500.4100, L501.2300, L100.0100 ####[facility] [address] [place], [address] Hemoglobin A1c percentageOrd ered By: Candido Huffman on 07-14-2025 HbA1c (Bld) [Mass fraction] 5.7 % <5.7 [facility] Comment on above: Normal < 5.7 % Predi abetic 5.7 - 6.4 % Diabetic >or= 6.5 % Please note range changes. L509.6001on 07-14-2025 CORTISOL 13.90 ug/dL Normal 6.02-18.40 [facility] Comment on above: Performed By: #### L 509.6001 ####[facility] [address] [place], [address] LDL calc ser/plasOrdered By: Candido Huffman on 07-14-2025 Cholesterol in LDL [Mass/Vol] 46 mg/dL [facility] Comment on above: Kxkwtvoxku=179-941 m g/dL & Higher Pmva=905 mg/dL or greaterFriedwald Equation for LDL-C Laboratory - Chemistry and C hemistry - challengeOrdered By: Candido Huffman on 07-14-2025 AST [Catalytic activity/Vol] 20 U/L <32 [facility] Lactic Acidon 07-14-2025 Lactate [Moles/Vol] 1.4 mmol/L Normal 0.0-2.0 [facility] Comment on above: Performed By: #### L 503.6005 ####[facility] [address] [place], [place], [id number] Lactic acid measurementOrder ed By: Luke Baez on 07-14-2025 Lactate [Moles/Vol] 1.4 mmol/L 0.0-2.0 [facility] Lipid Profileon 07-14-2025 CHOL:HDL 2.44 Normal [facility] Comment on above: Performed By: #### L 501.9985, L500.4050, L500.4100, L501.2300, L100.0100 ####[facility] [address] [place], [place], [address] Cholesterol [Mass/Vol] 100 mg/dL Normal <=[address] [facility] Comment on above: Result Comment: Chol esterol level, Desirable <200 mg/dLBorderline high cholesterol 200-239 mg/dLHigh cholesterol >=240 mg/dLRecommendations of the NCEP Adult Treatment Panel for themission bay campusowing risk-cutoff thresholds for the [place] Americanpopulation. Performed By: #### L 501.9985, L500.4050, L500.4100, L501.2300, L100.0100 ####[facility] [address] [place], [address] Cholesterol in HDL [Mass/Vol] 41 mg/dL Normal [facility] Comment on above: Result Comment: Padmini onal Cholesterol Education Program (NCEP) guidelines:<40 mg/dL: Low HDL-cholesterol (major risk factor for CHD)>= 60 mg/dL: High HDL-cholesterol (negative risk factor forCHD)HDL-cholesterol is affected by a number of factors, e.g.smoking, exercise, hormones, sex and age. Performed By: #### L 501.9985, L500.4050, L500.4100, L501.2300, L100.0100 ####[facility] [address] [place], [address] Cholesterol in LDL [Mass/Vol] 46 mg/dL Normal [facility] Comment on above: Result Comment: Bord kqxmnx=537-573 mg/dL Higher Fkqr=333 mg/dL or greaterFriedwald Equation for LDL-C Performed By: #### L 501.9985, L500.4050, L500.4100, L501.2300, L100.0100 ####[facility] [address] [place], [address] Cholesterol in VLDL [Mass/Vol] 13 mg/dL Normal 5-40 [facility] Comment on above: Performed By: #### L 501.9985, L500.4050, L500.4100, L501.2300, L100.0100 ####[facility] [address] [place], [address] Triglyceride [Mass/Vol] 66 mg/dL Normal [facility] Comment on above: Result Comment: The drugs N-Acetylcysteine and Metamizole may falselydepress this assay.Normal range: <150 mg/dLBorderline High: 150-199 mg/dLHigh: 200-499 mg/dLVery High: >500 mg/dL Performed By: #### L 501.9985, L500.4050, L500.4100, L501.2300, L100.0100 ####[facility] [address] [place], [address] Magnesiumon 07-14-2025 Magnesium [Mass/Vol] 2.0 mg/dL Normal 1.5-2.2 [facility] Comment on above: Performed By: #### L 501.5200 ####[facility] [address] [place], [address] Magnesium [Mass/Vol] 1.1 mg/dL Low 1.5-2.2 [facility] Comment on above: Performed By: #### L 506.0200, L501.5200 ####[facility] [address] [place], [address] Magnesium measurement (mass/ volume)Ordered By: Candido Huffman on 07-14-2025 Magnesium (Unsp spec) [Mass/Vol] 2.0 mg/dL 1.5-2.2 [facility] Osmolality, Serumon 07-14-20 25 OSMOLALITY,SER 275 mOsm/KG Low 280-301 [facility] Comment on above: Performed By: #### L 505.5000, L501.9100, L503.0106, L501.7300, L501.9520 ####[facility] [address] [place], [address] Osmolality, Urineon 07-14-20 25 OSMOLALITY,UR 765 mOsm/KG Normal [facility] Comment on above: Result Comment: Norm al Urine Reference Ranges Random: 50 - 1200 mOsm/kg H20 depending on fluid intake Random: >850 mOsm/kg after 12 hour fluid restriction 24 hour: 300 - 900 mOsm/kg H2O Performed By: #### L 501.7400, L501.5500 ####[facility] [address] [place], [address] Phosphoruson 07-14-2025 Phosphate [Mass/Vol] 2.3 mg/dL Low 2.7-4.5 [facility] Comment on above: Performed By: #### L 501.9985, L500.4050, L500.4100, L501.2300, L100.0100 ####[facility] [address] [place], [address] RESPIRATORY PANEL MOLECULARo n 07-14-2025 RP PANEL Normal [facility] Comment on above: Performed By: #### M 100.638 ####[facility] [address] [facility] [place], [address] Respiratory pathogens detect ion panel by molecular detection methodOrdered By: Candido Huffman on 07-14-2025 Respiratory pathogens DNA and RNA panel STACY+probe (Resp) [facility] Screening total cholesterol/ high density lipoprotein (HDL) cholesterol ratioOrdered By: Candido Huffman on 07-14-2025 Cholesterol.total/Choles terol in HDL [Mass ratio] 2.44 {ratio} [facility] Serum globulin measurementOr dered By: Candido Huffman on 07-14-2025 Globulin (S) [Mass/Vol] 2.6 g/dL 2.2-4.2 [facility] Serum or plasma alanine meza otransferase (ALT) measurementOrdered By: Candido Huffman on 07-14-2025 ALT [Catalytic activity/Vol] 11 U/L <35 [facility] Serum or plasma albumin rhonda urement (mass/volume)Ordered By: Candido Huffman on 07-14-2025 Albumin [Mass/Vol] 3.4 g/dL 3.4-4.8 [facility] Serum or plasma albumin/glob ulin mass ratioOrdered By: Candido Huffman on 07-14-2025 Albumin/Globulin [Mass ratio] 1.3 {ratio} 0.9-2.4 [facility] Serum or plasma alkaline yosvany sphatase measurementOrdered By: Candido Huffman on 07-14-2025 ALP [Catalytic activity/Vol] 61 U/L 35-104 [facility] Serum or plasma cholesterol in HDL measurement (mass/volume)Ordered By: Candido Huffman on 07-14-2025 Cholesterol in HDL [Mass/Vol] 41 mg/dL >40 [facility] Comment on above: National Cholesterol Education Program (NCEP) guidelines:<40 mg/dL: Low HDL-cholesterol (major risk factor for CHD)>= 60 mg/dL: High HDL-cholesterol (negative risk factor for CHD)HDL-cholesterol is affected by a number of factors, e.g. smoking, exercise, hormones, sex and age. Serum or plasma cholesterol measurement (mass/volume)Ordered By: Candido Huffman on 07-14-2025 Cholesterol [Mass/Vol] 100 mg/dL <[address] [facility] Comment on above: Cholesterol level, D esirable <200 mg/dLBorderline high cholesterol 200-239 mg/dLHigh cholesterol >=240 mg/dLRecommendations of the NCEP Adult Treatment Panel for the following risk-cutoff thresholds for the [place] population. Serum or plasma cortisol savana surement (mass/volume)Ordered By: Steve Alvarez on 07-14-2025 Cortisol [Mass/Vol] 13.90 ug/dL 6.02-18.40 [facility] Serum or plasma ethanol rhonda urement (mass/volume)Ordered By: Candido Huffman on 07-14-2025 Ethanol [Mass/Vol] mg/dL <10.1 [facility] Comment on above: This test is for med ical purposes only. The legal definition of intoxication varies according to local law. Stool Lactoferrin/WBCon 06-17 WBCST Is the patient receiving laxatives? N New/unexplained onset of 3 or more stools in past 24 hrs? Y Normal Reference Range = Negative Fecal WBC Lactoferrin A Positive: Fecal WBC Lactoferrin present A Normal [facility] Comment on above: Performed By: #### M 100.0668, M100.7581, M100.343 ####[facility] [address] [place], [address] Stool lactoferrin detection by immunoassayOrdered By: Candido Huffman on 07-14-2025 Lactoferrin IA Ql (Stl) [facility] TSH DL <= 0.005 mIU/L QnOrde red By: Candido Huffman on 07-14-2025 TSH Qn 2.210 uIU/mL 0.300-4.200 [facility] Thyroid Stim Hormone (TSH)on 07-14-2025 TSH 2.210 uIU/mL Normal 0.300-4.200 [facility] Comment on above: Performed By: #### L 505.5000, L501.9100, L503.0106, L501.7300, L501.9520 ####[facility] [address] [place], [address] Total proteinOrdered By: Adalberto Huffman on 07-14-2025 Protein [Mass/Vol] 6.0 g/dL 5.9-8.4 [facility] Triglycerides measurementOrd ered By: Candido Huffman on 07-14-2025 Triglyceride [Mass/Vol] 66 mg/dL <199 [facility] Comment on above: The drugs N-Acetylcy steine and Metamizole may falsely depress this assay. Normal range: <150 mg/dLBorderline High: 150-199 mg/dLHigh: 200-499 mg/dLVery High: >500 mg/dL Troponin T HS 4 HRon 025 Trop T High Sen 13 ng/L Normal <=14 [facility] Comment on above: Performed By: #### L 499.0043 ####[facility] [address] [place], [place], [id number] Troponin T.cardiac [Mass/vol ume] in Serum or Plasma by High sensitivity methodOrdered By: Luke Baez on 07-14-2025 Troponin T.cardiac High sensitivity method [Mass/Vol] 13 ng/L <14 [facility] Urine Drug Screen (VISTA)on 07-14-2025 AMPHETAMINES Negative Normal <1000 ng/mL [facility] Comment on above: Performed By: #### L 505.5000, L501.9100, L503.0106, L501.7300, L501.9520 ####[facility] [address] [place], [address] BARBITIURATES Negative Normal < 200 ng/mL [facility] Comment on above: Performed By: #### L 505.5000, L501.9100, L503.0106, L501.7300, L501.9520 ####[facility] [address] [place], [place], [phone] BENZODIAZIPINE Negative Normal < 200 ng/mL [facility] Comment on above: Performed By: #### L 505.5000, L501.9100, L503.0106, L501.7300, L501.9520 ####[facility] [address] [place], [address] BUP Ur Drug Scr Negative Normal < 200 ng/mL [facility] Comment on above: Performed By: #### L 505.5000, L501.9100, L503.0106, L501.7300, L501.9520 ####[facility] [address] [place], [place], [phone] COCAINE Negative Normal < 300 ng/mL [facility] Comment on above: Performed By: #### L 505.5000, L501.9100, L503.0106, L501.7300, L501.9520 ####[facility] [address] [place], [place], [phone] Fentanyl Negative Normal <5 ng/mL [facility] Comment on above: Result Comment: CONF IRMATORY TESTING FOR ALL POSITIVE URINE DRUG SCREENRESULTS WILL ONLY BE SENT OUT UPON PHYSICIAN ORDER.Zachery Pro Urine Drug Screen methods provide only preliminaryanalytical test results. A more specific alternate chemicalmethod must be used in order to obtain a confirmedanalytical result. Gas chromatography/mass spectrometery(GC/MS) is the preferred confirmatory method. Clinicalconsideration and professional judgement should be appliedto any drug of abuse test result, particularly whenpreliminary positive results are used.Urine TCA testing must be ordered separately. Use testmnemonic: UTCA Performed By: #### L 505.5000, L501.9100, L503.0106, L501.7300, L501.9520 ####[facility] [address] [place], [address] METHADONE Negative Normal < 300 ng/mL [facility] Comment on above: Performed By: #### L 505.5000, L501.9100, L503.0106, L501.7300, L501.9520 ####[facility] [address] [place], [address] OPIATES Negative Normal < 300 ng/mL [facility] Comment on above: Performed By: #### L 505.5000, L501.9100, L503.0106, L501.7300, L501.9520 ####[facility] [address] [place], [address] OXYCODONE Negative Normal < 100 ng/mL [facility] Comment on above: Performed By: #### L 505.5000, L501.9100, L503.0106, L501.7300, L501.9520 ####[facility] [address] [place], [address] PCP Negative Normal < 25 ng/mL [facility] Comment on above: Performed By: #### L 505.5000, L501.9100, L503.0106, L501.7300, L501.9520 ####[facility] [address] [place], [address] THC Negative Normal < 50 ng/mL [facility] Comment on above: Performed By: #### L 505.5000, L501.9100, L503.0106, L501.7300, L501.9520 ####[facility] [address] [place], [address] Urine Sodiumon 08-30-2025 Sodium (U) [Moles/Vol] 131 mmol/L Normal Not Establ. [facility] Comment on above: Performed By: #### L 501.7400, L501.5500 ####[facility] [address] [place], [address] Vitamin B12on 07-14-2025 Cobalamin (Vitamin B12) [Mass/Vol] 588 pg/mL Normal 180-914 [facility] Comment on above: Performed By: #### L 505.5000, L501.9100, L503.0106, L501.7300, L501.9520 ####[facility] [address] [place], [address] Vitamin B12 ser/plasOrdered By: Candido Huffman on 07-14-2025 Cobalamin (Vitamin B12) [Mass/Vol] 588 pg/mL 180-914 [facility] 12 Lead EKGon 07-13-2025 12 Lead EKG Normal [facility] Absolute lymphocyte countOrd ered By: Luke Baez on 07-13-2025 Lymphocytes Auto (Unsp spec) [#/Vol] 0.41 10*3/uL Low 0.83-4.51 [facility] Absolute neutrophil countOrd ered By: Luke Baez on 07-13-2025 Neutrophils (Bld) [#/Vol] 5.1 10*3/uL 2.0-7.7 [facility] Activated partial thrombopla stin time (aPTT) in platelet poor plasma by coagulation aOrdered By: Luke Baez on 07-13-2025 aPTT Coag (PPP) [Time] 34.2 s 24.1-36.[address] [facility] Amphetamine detection with 1 000 ng/mL as cutoffOrdered By: Candido Huffman on 07-13-2025 Amphetamines Screen method >1000 ng/mL Ql (U) Negative < 200 ng/mL [facility] Anion gap in Serum or Plasma Ordered By: Luke Baez on 07-13-2025 Anion gap [Moles/Vol] 11 mmol/L 5-15 [facility] Automated lymphocyte count a s percentage of total leukocytesOrdered By: Luke Baez on 07-13-2025 Lymphocytes/100 WBC Auto (Unsp spec) 6.9 % Low 19-41 [facility] BUN/creatinine ratioOrdered By: Luke Baez on 07-13-2025 Urea nitrogen/Creatinine [Mass ratio] 27.8 mg/mg High 10-20 [facility] Basic Metabolic Profile (BMP )on 07-13-2025 BUN/CRE 27.8 RATIO High 10- [facility] Comment on above: Performed By: #### L 300.4310, L100.0100, L300.3900, L500.2500, L503.6005 ####[facility] [address] [place], [address] Calcium [Mass/Vol] 9.4 mg/dL Normal 7.6-11.0 [facility] Comment on above: Performed By: #### L 300.4310, L100.0100, L300.3900, L500.2500, L503.6005 ####[facility] [address] [place], [address] Chloride [Moles/Vol] 96 mmol/L Low 98-108 [facility] Comment on above: Performed By: #### L 300.4310, L100.0100, L300.3900, L500.2500, L503.6005 ####[facility] [address] [place], [address] CO2 [Moles/Vol] 21.5 mmol/L Normal 21.0-32.0 [facility] Comment on above: Performed By: #### L 300.4310, L100.0100, L300.3900, L500.2500, L503.6005 ####[facility] [address] [place], [address] Creatinine [Mass/Vol] 0.76 mg/dL Normal 0.70-1.20 [facility] Comment on above: Performed By: #### L 300.4310, L100.0100, L300.3900, L500.2500, L503.6005 ####[facility] [address] [place], [address] ECRCL 42.90 ml/min Low 50-250 [facility] Comment on above: Performed By: #### L 300.4310, L100.0100, L300.3900, L500.2500, L503.6005 ####[facility] [address] [place], [address] GAP 11 Normal 5-15 [facility] Comment on above: Performed By: #### L 300.4310, L100.0100, L300.3900, L500.2500, L503.6005 ####[facility] [address] [place], [address] GFR/1.73 sq M.predicted among non-blacks MDRD (S/P/Bld) [Vol rate/Area] 75 mL/min/{1.73_m2} Normal >60 [facility] Comment on above: Result Comment: mL/m in/1.73m2 CKD-EPI Creatinine Equation (2020) Performed By: #### L 300.4310, L100.0100, L300.3900, L500.2500, L503.6005 ####[facility] [address] [place], [address] Glucose [Mass/Vol] 175 mg/dL High 70-99 [facility] Comment on above: Performed By: #### L 300.4310, L100.0100, L300.3900, L500.2500, L503.6005 ####[facility] [address] [place], [address] Potassium [Moles/Vol] 4.2 mmol/L Normal 3.3-5.1 [facility] Comment on above: Performed By: #### L 300.4310, L100.0100, L300.3900, L500.2500, L503.6005 ####[facility] [address] [place], [address] Sodium [Moles/Vol] 128 mmol/L Low 133-145 [facility] Comment on above: Performed By: #### L 300.4310, L100.0100, L300.3900, L500.2500, L503.6005 ####[facility] [address] [place], [address] Urea nitrogen [Mass/Vol] 21 mg/dL High 4-19 [facility] Comment on above: Performed By: #### L 300.4310, L100.0100, L300.3900, L500.2500, L503.6005 ####[facility] [address] [place], [address] Basophil percentageOrdered B y: Luke Baez on 07-13-2025 Basophils/100 WBC (Bld) 0.2 % 0-1 [facility] Bilirubin Test strip Ql (U)O rdered By: Luke Baez on 07-13-2025 Bilirubin Ql (U) Negative Negative [facility] Brain/Head without Contrasto n 07-13-2025 Brain/Head without Contrast Normal [facility] CBC W/Diff, Automatedon 06-16 Absolute Lymph 0.41 X10 3/uL Low 0.83-4.51 [facility] Comment on above: Performed By: #### L 300.4310, L100.0100, L300.3900, L500.2500, L503.6005 ####[facility] [address] [place], [address] Absolute Neut 5.1 X10 3/uL Normal 2.0-7.7 [facility] Comment on above: Performed By: #### L 300.4310, L100.0100, L300.3900, L500.2500, L503.6005 ####[facility] [address] [place], [address] Basophils/100 WBC (Bld) 0.2 % Normal 0-1 [facility] Comment on above: Performed By: #### L 300.4310, L100.0100, L300.3900, L500.2500, L503.6005 ####[facility] [address] [place], [address] Eosinophils/100 WBC (Bld) 0.0 % Normal 0-5 [facility] Comment on above: Performed By: #### L 300.4310, L100.0100, L300.3900, L500.2500, L503.6005 ####[facility] [address] [place], [address] Erythrocyte distribution width (RBC) [Ratio] 13.3 % Normal 11.6-14.6 [facility] Comment on above: Performed By: #### L 300.4310, L100.0100, L300.3900, L500.2500, L503.6005 ####[facility] [address] [place], [address] Hematocrit (Bld) [Volume fraction] 35.5 % Low 37-47 [facility] Comment on above: Performed By: #### L 300.4310, L100.0100, L300.3900, L500.2500, L503.6005 ####[facility] [address] [place], [address] Hemoglobin (Bld) [Mass/Vol] 11.6 g/dL Low 12.0-15.0 [facility] Comment on above: Performed By: #### L 300.4310, L100.0100, L300.3900, L500.2500, L503.6005 ####[facility] [address] [place], [address] IG% 0.700 Normal 0.0-0.9 [facility] Comment on above: Result Comment: IG% - Immature Granulocytes (promyelocytes, myelocytes andmetamyelocytes) > 1% indicates that a LEFT SHIFT is Present. Performed By: #### L 300.4310, L100.0100, L300.3900, L500.2500, L503.6005 ####[facility] [address] [place], [address] Lymphocytes/100 WBC (Bld) 6.9 % Low 19-41 [facility] Comment on above: Performed By: #### L 300.4310, L100.0100, L300.3900, L500.2500, L503.6005 ####[facility] [address] [place], [address] MCH (RBC) [Entitic mass] 31.5 pg Normal 27.0-32.0 [facility] Comment on above: Performed By: #### L 300.4310, L100.0100, L300.3900, L500.2500, L503.6005 ####[facility] [address] [place], [address] MCHC (RBC) [Mass/Vol] 32.7 g/dL Normal 32-36 [facility] Comment on above: Performed By: #### L 300.4310, L100.0100, L300.3900, L500.2500, L503.6005 ####[facility] [address] [place], [address] MCV (RBC) [Entitic vol] 96.5 fL Normal 81-99 [facility] Comment on above: Performed By: #### L 300.4310, L100.0100, L300.3900, L500.2500, L503.6005 ####[facility] [address] [place], [address] Monocytes/100 WBC (Bld) 6.6 % Normal 0-10 [facility] Comment on above: Performed By: #### L 300.4310, L100.0100, L300.3900, L500.2500, L503.6005 ####[facility] [address] [place], [address] Neutrophils/100 WBC (Bld) 85.6 % High 47-70 [facility] Comment on above: Performed By: #### L 300.4310, L100.0100, L300.3900, L500.2500, L503.6005 ####[facility] [address] [place], [address] Nucleated RBC (Bld) [#/Vol] 0 10*3/uL Normal 0-5 [facility] Comment on above: Performed By: #### L 300.4310, L100.0100, L300.3900, L500.2500, L503.6005 ####[facility] [address] [place], [address] Platelet mean volume (Bld) [Entitic vol] 9.8 fL Normal 6.2-12.0 [facility] Comment on above: Performed By: #### L 300.4310, L100.0100, L300.3900, L500.2500, L503.6005 ####[facility] [address] [place], [address] Platelets (Bld) [#/Vol] 222 10*3/uL Normal 150-450 [facility] Comment on above: Performed By: #### L 300.4310, L100.0100, L300.3900, L500.2500, L503.6005 ####[facility] [address] [place], [address] RBC (Bld) [#/Vol] 3.68 10*6/uL Low 4.2-5.4 [facility] Comment on above: Performed By: #### L 300.4310, L100.0100, L300.3900, L500.2500, L503.6005 ####[facility] [address] [place], [address] RDW SD 47.1 fl High 35.1-43.9 [facility] Comment on above: Performed By: #### L 300.4310, L100.0100, L300.3900, L500.2500, L503.6005 ####[facility] [address] [place], [address] WBC (Bld) [#/Vol] 5.9 10*3/uL Normal 4.4-11.0 [facility] Comment on above: Performed By: #### L 300.4310, L100.0100, L300.3900, L500.2500, L503.6005 ####[facility] [address] [place], [address] Carbon dioxide, total [Moles /volume] in Central venous bloodOrdered By: Luke Baez on 07-13-2025 CO2 [Moles/Vol] 21.5 mmol/L 21.0-32.0 [facility] Chest PA and Lateralon 07-13 Chest PA and Lateral Normal [facility] Chloride assayOrdered By: Erik Baez on 07-13-2025 Chloride [Moles/Vol] 96 mmol/L Low 98-108 [facility] Emergency Department Summary on 07-13-2025 Emergency Department Summary Normal [facility] Eosinophil percentageOrdered By: Luke Baez on 07-13-2025 Eosinophils/100 WBC (Bld) 0.0 % 0-5 [facility] Erythrocyte distribution wid th ratioOrdered By: Luke Baez on 07-13-2025 Erythrocyte distribution width (RBC) [Ratio] 13.3 % 11.6-14.6 [facility] Erythrocyte distribution wid th standard deviationOrdered By: Luke Baez on 07-13-2025 Erythrocyte distribution width (RBC) [Ratio] 47.1 fl High 35.1-43.9 [facility] Glomerular filtration rate ( GFR) estimation/1.73 sq m using serum, plasma, or whole bOrdered By: Luke Baez on 07-13-2025 GFR/1.73 sq M.predicted among non-blacks MDRD (S/P/Bld) [Vol rate/Area] 75 mL/min/{1.73_m2} >60 [facility] Comment on above: mL/min/1.73m2 CKD-EP I Creatinine Equation (2020) H AND P Exam - [facility] 07-13-2025 H&P Exam - Hospitalist Normal [facility] Hematocrit Auto (Bld) [Volum e fraction]Ordered By: Luke Baez on 07-13-2025 Hematocrit (Bld) [Volume fraction] 35.5 % Low 37-47 [facility] Hemoglobin measurementOrdere d By: Luke Baez on 07-13-2025 Hemoglobin (Bld) [Mass/Vol] 11.6 g/dL Low 12.0-15.0 [facility] Hyaline casts LM.LPF (Urine sed) [#/Area]Ordered By: Luke Baez on 07-13-2025 Hyaline casts (Urine sed) [#/Area] 0 /[LPF] 0-5 [facility] Immature granulocytes/100 WB C Auto (Bld)Ordered By: Luke Baez on 07-13-2025 Immature granulocytes/100 WBC (Bld) 0.700 % 0.0-0.9 [facility] Comment on above: IG% - Immature Granu locytes (promyelocytes, myelocytes and metamyelocytes) > 1% indicates that a LEFT SHIFT is Present. International normalized rat io (INR) calculationOrdered By: Luke Baez on 07-13-2025 INR Coag (Bld) [Relative time] 1.0 {INR} [facility] Ketones Test strip Ql (U)Ord ered By: Luke Baez on 07-13-2025 Ketones Ql (U) 5 mg/dl High Negative [facility] L501.4021on 07-13-2025 Trop T High Sen 22 ng/L High <=14 [facility] Comment on above: Performed By: #### L 501.4023 ####[facility] [address] [place], [place], [address] Lactic Acidon 07-13-2025 Lactate [Moles/Vol] 2.0 mmol/L Normal 0.0-2.0 [facility] Comment on above: Order Comment: Y Result Comment: Crit ical Result(s) Called LSPARR at: 2106 by:JUAN??Results read back by same. Performed By: #### L 300.4310, L100.0100, L300.3900, L500.2500, L503.6005 ####[facility] [address] [place], [address] MCV (mean corpuscular volume ) determinationOrdered By: Luke Baez on 07-13-2025 MCV (RBC) [Entitic vol] 96.5 fL 81-99 [facility] Mean corpuscular hemoglobin (MCH) determinationOrdered By: Luke Baez on 07-13-2025 MCH (RBC) [Entitic mass] 31.5 pg 27.0-32.0 [facility] Mean corpuscular hemoglobin concentration (MCHC) determinationOrdered By: Luke Baez on 07-13-2025 MCHC (RBC) [Mass/Vol] 32.7 g/dL 32-36 [facility] Mean platelet volume determi nationOrdered By: Luke Baez on 07-13-2025 Platelet mean volume (Bld) [Entitic vol] 9.8 fL 6.2-12.0 [facility] Microscopic analysis of urin e for red blood cells (RBC)Ordered By: Luke Baez on 07-13-2025 Microscopic analysis of urine for red blood cells (RBC) 50-100 SEEN /hpf 0-5 [facility] Monocyte percentageOrdered B y: Luke Baez on 07-13-2025 Monocytes/100 WBC (Bld) 6.6 % 0-10 [facility] Mucus LM Ql (Urine sed)Order ed By: Luke Baez on 07-13-2025 Mucus Ql (Urine sed) 2+ /hpf [facility] Neutrophil percentageOrdered By: Luke Baez on 07-13-2025 Neutrophils/100 WBC (Bld) 85.6 % High 47-70 [facility] Nitrite Test strip Ql (U)Ord ered By: Luke Baez on 07-13-2025 Nitrite Ql (U) Negative Negative [facility] No Panel InformationOrdered By: Candido Huffman on 07-13-2025 Urine Buprenorphine Qualitative Negative < 200 ng/mL [facility] Urine Oxycodone Screen Negative < 100 ng/mL [facility] Nucleated red blood cell per centageOrdered By: Luke Baez on 07-13-2025 Nucleated RBC/100 WBC (Bld) [Ratio] 0 % 0-5 [facility] Osmolality urOrdered By: Almaz Alvarez on 07-13-2025 Osmolality (U) [Osmolality] 765 mOsm/KG >50 [facility] Comment on above: Normal Urine Referen ce Ranges Random: 50 - 1200 mOsm/kg H20 depending on fluid intake Random: >850 mOsm/kg after 12 hour fluid restriction 24 hour: ~300 - 900 mOsm/kg H2O Partial Thromboplast Timeon 07-13-2025 aPTT Coag (Bld) [Time] 34.2 s Normal 24.1-36.[address] [facility] Comment on above: Performed By: #### L 300.4310, L100.0100, L300.3900, L500.2500, L503.6005 ####[facility] [address] [place], [address] Platelet countOrdered By: Erik Baez on 07-13-2025 Platelets (Bld) [#/Vol] 222 10*3/uL 150-450 [facility] Potassium measurement (mass/ volume)Ordered By: Luke Baez on 07-13-2025 Potassium (Unsp spec) [Mass/Vol] 4.2 mmol/L 3.3-5.1 [facility] Protein Test strip Ql (U)Ord ered By: Luke Baez on 07-13-2025 Protein Ql (U) 30 mg/dl High Negative [facility] Prothrombin Time w/INRon INR Coag (PPP) [Relative time] 1.0 {INR} Normal [facility] Comment on above: Performed By: #### L 300.4310, L100.0100, L300.3900, L500.2500, L503.6005 ####[facility] [address] [place], [address] PT Coag (PPP) [Time] 13.6 s Normal 11.7-14.9 [facility] Comment on above: Performed By: #### L 300.4310, L100.0100, L300.3900, L500.2500, L503.6005 ####[facility] [address] [place], [address] Prothrombin timeOrdered By: Luke Baez on 07-13-2025 PT Coag (PPP) [Time] 13.6 s 11.7-14.9 [facility] Quantitative urine opiates m easurementOrdered By: Candido Huffman on 07-13-2025 Opiates Ql (U) Negative < 300 ng/mL [facility] RBC Auto (Bld) [#/Vol]Ordere d By: Luke Baez on 07-13-2025 RBC (Bld) [#/Vol] 3.68 10*6/uL Low 4.2-5.4 [facility] Screening urine fentanyl savana surementOrdered By: Candido Huffman on 07-13-2025 fentaNYL Screen Ql (U) Negative <5 ng/mL [facility] Comment on above: CONFIRMATORY TESTING FOR ALL POSITIVE URINE DRUG SCREENRESULTS WILL ONLY BE SENT OUT UPON PHYSICIAN ORDER. Zachery Pro Urine Drug Screen methods provide only preliminaryanalytical test results. A more specific alternate chemicalmethod must be used in order to obtain a confirmedanalytical result. Gas chromatography/mass spectrometery(GC/MS) is the preferred confirmatory method. Clinicalconsideration and professional judgement should be appliedto any drug of abuse test result, particularly whenpreliminary positive results are used. Urine TCA testing must be ordered separately. Use test mnemonic: INCA Serum creatinine measurement (mass/volume)Ordered By: Luke Baez on 07-13-2025 Creatinine [Mass/Vol] 0.76 mg/dL 0.70-1.20 [facility] Serum glucose measurement (m ass/volume)Ordered By: Luke Baez on 07-13-2025 Glucose [Mass/Vol] 175 mg/dL High 70-99 [facility] Serum or plasma calcium rhonda urement (mass/volume)Ordered By: Luke Baez on 07-13-2025 Calcium [Mass/Vol] 9.4 mg/dL 7.6-11.0 [facility] Serum or plasma urea nitroge n measurement (mass/volume)Ordered By: Luke Baez on 07-13-2025 Urea nitrogen [Mass/Vol] 21 mg/dL High 4-19 [facility] Sodium levelOrdered By: Luke Baez on 07-13-2025 Sodium [Moles/Vol] 128 mmol/L Low 133-145 [facility] Squamous epithelial cells de tection in urine sediment by light microscopyOrdered By: Luek Baez on 07-13-2025 Epithelial cells.squamous LM Ql (Urine sed) 0 SEEN /hpf 5-10 [facility] Troponin T HS 2 HRon 025 Trop T High Sen 11 ng/L Normal <=14 [facility] Comment on above: Performed By: #### L 499.0042 ####[facility] [address] [place], [place], [id number] Troponin T.cardiac [Mass/vol ume] in Serum or Plasma by High sensitivity methodOrdered By: Luke Baez on 07-13-2025 Troponin T.cardiac High sensitivity method [Mass/Vol] 11 ng/L <14 [facility] Troponin T.cardiac High sensitivity method [Mass/Vol] 22 ng/L High <14 [facility] Urinalysis, Completeon 07-13 BACTERIA 1+ /hpf Normal None Seen [facility] Comment on above: Order Comment: VERÓNICA TER SPECIMEN Performed By: #### L 400.0001 ####[facility] [address] [place], [place], [id number] CAST,HYALINE 0-5 SEEN Normal 0-5 [facility] Comment on above: Order Comment: VERÓNICA TER SPECIMEN Performed By: #### L 400.0001 ####[facility] [address] [place], [address] Mucus Ql (Urine sed) 2+ /hpf Normal [facility] Comment on above: Order Comment: VERÓNICA TER SPECIMEN Performed By: #### L 400.0001 ####[facility] [address] [place], [address] RBC 50-100 SEEN Normal 0-5 [facility] Comment on above: Order Comment: VERÓNICA TER SPECIMEN Performed By: #### L 400.0001 ####[facility] [address] [place], [address] WBC 0-5 SEEN Normal 0-5 [facility] Comment on above: Order Comment: VERÓNICA TER SPECIMEN Performed By: #### L 400.0001 ####[facility] [address] [place], [address] EPI,SQUAMOUS 0 SEEN Normal 5-10 [facility] Comment on above: Order Comment: VERÓNICA TER SPECIMEN Performed By: #### L 400.0001 ####[facility] [address] [place], [address] Urine benzodiazepine levelOr dered By: Candido Huffman on 07-13-2025 Benzodiazepines Ql (U) Negative < 200 ng/mL [facility] Urine clarityOrdered By: Giovanna Baez on 07-13-2025 Clarity (U) Clear Clear [facility] Urine cocaine levelOrdered B y: Candido Huffman on 07-13-2025 Cocaine Ql (U) Negative < 300 ng/mL [facility] Urine color determinationOrd ered By: Luke Baez on 07-13-2025 Color (U) Yellow Yellow [facility] Urine atpug-9-hisxgsetxjtzfl abinol (THC) measurementOrdered By: Candido Huffman on 07-13-2025 Cannabinoids Screen Ql (U) Negative < 50 ng/mL [facility] Urine glucose detectionOrder ed By: Luke Baez on 07-13-2025 Glucose Ql (U) Normal mg/dl Normal [facility] Urine leukocyte esterase det ection by dipstickOrdered By: Luke Baez on 07-13-2025 Leukocyte esterase Test strip Ql (U) Negative Negative [facility] Urine pHOrdered By: Luke hawley on 07-13-2025 pH (U) 5.0 [pH] 5.0 - 8.0 [facility] Urine phencyclidine (PCP) de tectionOrdered By: Candido Huffman on 07-13-2025 Phencyclidine Ql (U) Negative < 25 ng/mL [facility] Urine sediment bacteria coun t by microscopy (number/high power field)Ordered By: Luke Baez on 07-13-2025 Bacteria LM.HPF (Urine sed) [#/Area] 1 /[HPF] None Seen [facility] Urine sodium measurement (mo les/volume)Ordered By: Steve Alvarez on 07-13-2025 Sodium (U) [Moles/Vol] 131 mmol/L Not Establ. [facility] Urine specific gravity measu rementOrdered By: Luke Baez on 07-13-2025 Specific gravity (U) [Rel density] 1.020 1.002-1.030 [facility] Urine urobilinogen measureme ntOrdered By: Luke Baez on 07-13-2025 Urobilinogen Ql (U) Normal mg/dl Normal [facility] White blood cell (WBC) count Ordered By: Luke Baez on 07-13-2025 WBC (Bld) [#/Vol] 5.9 10*3/uL 4.4-11.0 [facility] White blood cell countOrdere d By: Luke Baez on 07-13-2025 White blood cell count 0-5 SEEN /hpf 0-5 [facility] Absolute lymphocyte countOrd ered By: Laurence Hinds on 07-03-2025 Lymphocytes Auto (Unsp spec) [#/Vol] 1.63 10*3/uL 0.83-4.51 [facility] Absolute neutrophil countOrd ered By: Laurence Hinds on 07-03-2025 Neutrophils (Bld) [#/Vol] 4.7 10*3/uL 2.0-7.7 [facility] Anion gap in Serum or Plasma Ordered By: Laurence Hinds on 07-03-2025 Anion gap [Moles/Vol] 12 mmol/L 5-15 [facility] Automated lymphocyte count a s percentage of total leukocytesOrdered By: Laurence Hinds on 07-03-2025 Lymphocytes/100 WBC Auto (Unsp spec) 21.9 % [facility] BUN/creatinine ratioOrdered By: Laurence Hinds on 07-03-2025 Urea nitrogen/Creatinine [Mass ratio] 30.4 mg/mg High 10- [facility] Basophil percentageOrdered B y: Laurence Hinds on 07-03-2025 Basophils/100 WBC (Bld) 0.3 % 0-1 [facility] Bilirubin, totalOrdered By: Laurenceshelley Hinds on 07-03-2025 Bilirubin [Mass/Vol] 0.41 mg/dL 0.00-1.30 [facility] CBC W/Diff, Automatedon 06-15 Absolute Lymph 1.63 X10 3/uL Normal 0.83-4.51 [facility] Comment on above: Performed By: #### L 500.4050, L100.0100 ####[facility] [address] [place], [address] Absolute Neut 4.7 X10 3/uL Normal 2.0-7.7 [facility] Comment on above: Performed By: #### L 500.4050, L100.0100 ####[facility] [address] [place], [address] Basophils/100 WBC (Bld) 0.3 % Normal 0-1 [facility] Comment on above: Performed By: #### L 500.4050, L100.0100 ####[facility] [address] [place], [address] Eosinophils/100 WBC (Bld) 1.5 % Normal 0-5 [facility] Comment on above: Performed By: #### L 500.4050, L100.0100 ####[facility] [address] [place], [address] Erythrocyte distribution width (RBC) [Ratio] 13.2 % Normal 11.6-14.6 [facility] Comment on above: Performed By: #### L 500.4050, L100.0100 ####[facility] [address] [place], [address] Hematocrit (Bld) [Volume fraction] 35.0 % Low 37-47 [facility] Comment on above: Performed By: #### L 500.4050, L100.0100 ####[facility] [address] [place], [address] Hemoglobin (Bld) [Mass/Vol] 11.3 g/dL Low 12.0-15.0 [facility] Comment on above: Performed By: #### L 500.4050, L100.0100 ####[facility] [address] [place], [address] IG% 0.300 Normal 0.0-0.9 [facility] Comment on above: Result Comment: IG% - Immature Granulocytes (promyelocytes, myelocytes andmetamyelocytes) > 1% indicates that a LEFT SHIFT is Present. Performed By: #### L 500.4050, L100.0100 ####[facility] [address] [place], [address] Lymphocytes/100 WBC (Bld) 21.9 % Normal 19-41 [facility] Comment on above: Performed By: #### L 500.4050, L100.0100 ####[facility] [address] [place], [address] MCH (RBC) [Entitic mass] 31.7 pg Normal 27.0-32.0 [facility] Comment on above: Performed By: #### L 500.4050, L100.0100 ####[facility] [address] [place], [address] MCHC (RBC) [Mass/Vol] 32.3 g/dL Normal 32-36 [facility] Comment on above: Performed By: #### L 500.4050, L100.0100 ####[facility] [address] [place], [address] MCV (RBC) [Entitic vol] 98.3 fL Normal 81-99 [facility] Comment on above: Performed By: #### L 500.4050, L100.0100 ####[facility] [address] [place], [address] Monocytes/100 WBC (Bld) 12.5 % High 0-10 [facility] Comment on above: Performed By: #### L 500.4050, L100.0100 ####[facility] [address] [place], [address] Neutrophils/100 WBC (Bld) 63.5 % Normal 47-70 [facility] Comment on above: Performed By: #### L 500.4050, L100.0100 ####[facility] [address] [place], [address] Nucleated RBC (Bld) [#/Vol] 0 10*3/uL Normal 0-5 [facility] Comment on above: Performed By: #### L 500.4050, L100.0100 ####[facility] [address] [place], [address] Platelet mean volume (Bld) [Entitic vol] 10.6 fL Normal 6.2-12.0 [facility] Comment on above: Performed By: #### L 500.4050, L100.0100 ####[facility] [address] [place], [address] Platelets (Bld) [#/Vol] 222 10*3/uL Normal 150-450 [facility] Comment on above: Performed By: #### L 500.4050, L100.0100 ####[facility] [address] [place], [address] RBC (Bld) [#/Vol] 3.56 10*6/uL Low 4.2-5.4 [facility] Comment on above: Performed By: #### L 500.4050, L100.0100 ####[facility] [address] [place], [address] RDW SD 47.0 fl High 35.1-43.9 [facility] Comment on above: Performed By: #### L 500.4050, L100.0100 ####[facility] [address] [place], [address] WBC (Bld) [#/Vol] 7.4 10*3/uL Normal 4.4-11.0 [facility] Comment on above: Performed By: #### L 500.4050, L100.0100 ####[facility] [address] [place], [address] Carbon dioxide, total [Moles /volume] in Central venous bloodOrdered By: Laurence Hinds on 07-03-2025 CO2 [Moles/Vol] 20.6 mmol/L Low 21.0-32.0 [facility] Chloride assayOrdered By: Evelin Hinds on 07-03-2025 Chloride [Moles/Vol] 98 mmol/L 98-108 [facility] Comprehensive Metabolic Prof ilon 07-03-2025 Albumin [Mass/Vol] 4.1 g/dL Normal 3.4-4.8 [facility] Comment on above: Performed By: #### L 500.4050, L100.0100 ####[facility] [address] [place], [address] Albumin/Globulin [Mass ratio] 1.4 {ratio} Normal 0.9-2.4 [facility] Comment on above: Performed By: #### L 500.4050, L100.0100 ####[facility] [address] [place], [address] ALK PHOS 76 U/L Normal 35-104 [facility] Comment on above: Performed By: #### L 500.4050, L100.0100 ####[facility] [address] [place], [address] ALT [Catalytic activity/Vol] 11 U/L Normal <=34 [facility] Comment on above: Performed By: #### L 500.4050, L100.0100 ####[facility] [address] [place], [address] AST [Catalytic activity/Vol] 17 U/L Normal <=31 [facility] Comment on above: Performed By: #### L 500.4050, L100.0100 ####[facility] [address] [place], [address] Bilirubin [Mass/Vol] 0.41 mg/dL Normal 0.00-1.30 [facility] Comment on above: Performed By: #### L 500.4050, L100.0100 ####[facility] [address] [place], [address] BUN/CRE 30.4 RATIO High 10-20 [facility] Comment on above: Performed By: #### L 500.4050, L100.0100 ####[facility] [address] [place], [address] Calcium [Mass/Vol] 10.1 mg/dL Normal 7.6-11.0 [facility] Comment on above: Performed By: #### L 500.4050, L100.0100 ####[facility] [address] [place], [address] Chloride [Moles/Vol] 98 mmol/L Normal 98-108 [facility] Comment on above: Performed By: #### L 500.4050, L100.0100 ####[facility] [address] [place], [address] CO2 [Moles/Vol] 20.6 mmol/L Low 21.0-32.0 [facility] Comment on above: Performed By: #### L 500.4050, L100.0100 ####[facility] [address] [place], [address] Creatinine [Mass/Vol] 0.70 mg/dL Normal 0.70-1.20 [facility] Comment on above: Performed By: #### L 500.4050, L100.0100 ####[facility] [address] [place], [address] GAP 12 Normal 5-15 [facility] Comment on above: Performed By: #### L 500.4050, L100.0100 ####[facility] [address] [place], [address] GFR/1.73 sq M.predicted among non-blacks MDRD (S/P/Bld) [Vol rate/Area] 82 mL/min/{1.73_m2} Normal >60 [facility] Comment on above: Result Comment: mL/m in/1.73m2 CKD-EPI Creatinine Equation (2020) Performed By: #### L 500.4050, L100.0100 ####[facility] [address] [place], [address] Globulin (S) [Mass/Vol] 2.9 g/dL Normal 2.2-4.2 [facility] Comment on above: Performed By: #### L 500.4050, L100.0100 ####[facility] [address] [place], [address] Glucose [Mass/Vol] 110 mg/dL High 70-99 [facility] Comment on above: Performed By: #### L 500.4050, L100.0100 ####[facility] [address] [place], [address] Potassium [Moles/Vol] 4.5 mmol/L Normal 3.3-5.1 [facility] Comment on above: Performed By: #### L 500.4050, L100.0100 ####[facility] [address] [place], [address] Sodium [Moles/Vol] 131 mmol/L Low 133-145 [facility] Comment on above: Performed By: #### L 500.4050, L100.0100 ####[facility] [address] [place], [address] T PROT 7.0 g/dL Normal 5.9-8.4 [facility] Comment on above: Performed By: #### L 500.4050, L100.0100 ####[facility] [address] [place], [address] Urea nitrogen [Mass/Vol] 21 mg/dL High 4-19 [facility] Comment on above: Performed By: #### L 500.4050, L100.0100 ####[facility] [address] [place], [address] Eosinophil percentageOrdered By: Laurence Hinds on 07-03-2025 Eosinophils/100 WBC (Bld) 1.5 % 0-5 [facility] Erythrocyte distribution wid th ratioOrdered By: Laurence Hinds on 07-03-2025 Erythrocyte distribution width (RBC) [Ratio] 13.2 % 11.6-14.6 [facility] Erythrocyte distribution wid th standard deviationOrdered By: Laurence Hinds on 07-03-2025 Erythrocyte distribution width (RBC) [Ratio] 47.0 fl High 35.1-43.9 [facility] Glomerular filtration rate ( GFR) estimation/1.73 sq m using serum, plasma, or whole bOrdered By: Laurence Hinds on 07-03-2025 GFR/1.73 sq M.predicted among non-blacks MDRD (S/P/Bld) [Vol rate/Area] 82 mL/min/{1.73_m2} >60 [facility] Comment on above: mL/min/1.73m2 CKD-EP I Creatinine Equation (2020) Hematocrit Auto (Bld) [Volum e fraction]Ordered By: Laurence Hinds on 07-03-2025 Hematocrit (Bld) [Volume fraction] 35.0 % Low 37-47 [facility] Hemoglobin measurementOrdere d By: Laurence Hinds on 07-03-2025 Hemoglobin (Bld) [Mass/Vol] 11.3 g/dL Low 12.0-15.0 [facility] Immature granulocytes/100 WB C Auto (Bld)Ordered By: Laurence Hinds on 07-03-2025 Immature granulocytes/100 WBC (Bld) 0.300 % 0.0-0.9 [facility] Comment on above: IG% - Immature Granu locytes (promyelocytes, myelocytes and metamyelocytes) > 1% indicates that a LEFT SHIFT is Present. Laboratory - Chemistry and C hemistry - challengeOrdered By: Laurence Hinds on 07-03-2025 AST [Catalytic activity/Vol] 17 U/L <32 [facility] MCV (mean corpuscular volume ) determinationOrdered By: Laurence Hinds on 07-03-2025 MCV (RBC) [Entitic vol] 98.3 fL 81-99 [facility] Mean corpuscular hemoglobin (MCH) determinationOrdered By: Laurence Hinds on 07-03-2025 MCH (RBC) [Entitic mass] 31.7 pg 27.0-32.0 [facility] Mean corpuscular hemoglobin concentration (MCHC) determinationOrdered By: Laurence Hinds on 07-03-2025 MCHC (RBC) [Mass/Vol] 32.3 g/dL 32-36 [facility] Mean platelet volume determi nationOrdered By: Laurence Hinds on 07-03-2025 Platelet mean volume (Bld) [Entitic vol] 10.6 fL 6.2-12.0 [facility] Monocyte percentageOrdered B y: Laurence Hinds on 07-03-2025 Monocytes/100 WBC (Bld) 12.5 % High 0-10 [facility] Neutrophil percentageOrdered By: Laurence Hinds on 07-03-2025 Neutrophils/100 WBC (Bld) 63.5 % 47-70 [facility] Nucleated red blood cell per centageOrdered By: Laurence Hinds on 07-03-2025 Nucleated RBC/100 WBC (Bld) [Ratio] 0 % 0-5 [facility] Platelet countOrdered By: Evelin Hinds on 07-03-2025 Platelets (Bld) [#/Vol] 222 10*3/uL 150-450 [facility] Potassium measurement (mass/ volume)Ordered By: Laurence Hinds on 07-03-2025 Potassium (Unsp spec) [Mass/Vol] 4.5 mmol/L 3.3-5.1 [facility] RBC Auto (Bld) [#/Vol]Ordere d By: Laurence Hinds on 07-03-2025 RBC (Bld) [#/Vol] 3.56 10*6/uL Low 4.2-5.4 [facility] Serum creatinine measurement (mass/volume)Ordered By: Laurence Hinds on 07-03-2025 Creatinine [Mass/Vol] 0.70 mg/dL 0.70-1.20 [facility] Serum globulin measurementOr dered By: Laurence Hinds on 07-03-2025 Globulin (S) [Mass/Vol] 2.9 g/dL 2.2-4.2 [facility] Serum glucose measurement (m ass/volume)Ordered By: Laurence Hinds on 07-03-2025 Glucose [Mass/Vol] 110 mg/dL High 70-99 [facility] Serum or plasma alanine meza otransferase (ALT) measurementOrdered By: Laurence Hinds on 07-03-2025 ALT [Catalytic activity/Vol] 11 U/L <35 [facility] Serum or plasma albumin rhonda urement (mass/volume)Ordered By: Laurence Hinds on 07-03-2025 Albumin [Mass/Vol] 4.1 g/dL 3.4-4.8 [facility] Serum or plasma albumin/glob ulin mass ratioOrdered By: Laurence Hinds on 07-03-2025 Albumin/Globulin [Mass ratio] 1.4 {ratio} 0.9-2.4 [facility] Serum or plasma alkaline yosvany sphatase measurementOrdered By: Laurence Hinds on 07-03-2025 ALP [Catalytic activity/Vol] 76 U/L 35-104 [facility] Serum or plasma calcium rhonda urement (mass/volume)Ordered By: Laurence Hinds on 07-03-2025 Calcium [Mass/Vol] 10.1 mg/dL 7.6-11.0 [facility] Serum or plasma urea nitroge n measurement (mass/volume)Ordered By: Laurence Hinds on 07-03-2025 Urea nitrogen [Mass/Vol] 21 mg/dL High 4-19 [facility] Sodium levelOrdered By: Lesa Hinds on 07-03-2025 Sodium [Moles/Vol] 131 mmol/L Low 133-145 [facility] Total proteinOrdered By: Sergio Hinds on 07-03-2025 Protein [Mass/Vol] 7.0 g/dL 5.9-8.4 [facility] White blood cell (WBC) count Ordered By: Laurence Hinds on 07-03-2025 WBC (Bld) [#/Vol] 7.4 10*3/uL 4.4-11.0 [facility] CNOVon 05-23-2025 CNOV Office Visit (INTMWS ) YANN ADAIR ([id number]) 1935 F Date Time Provider Department 05/23/25 3:00 PM SANDRA COOMBS INTMWS During your visit today, we recorded the following information about you: Temperature Pulse Respiration Blood pressure 97.2 degrees 68/minute 12/minute 114/72 Weight 63 kg Sandra Coombs, TURN LASTER.FLAGSETTER 05/23/2025 3:13 PM Signed We discussed your follow-up care for the cat bite on your right leg: - Your antibiotics (Cefdinir 300 mg twice daily and Metronidazole 250 mg three times daily) have been extended for an additional 5 days. Please continue taking them as prescribed. These have been sent to your preferred pharmacy, [facility]. - Begin using warm compresses on the affected area 2-3 times daily to help with swelling and drainage. You may soak a washcloth in warm water with dissolved Epsom salts and apply it to the area. Re-warm the washcloth as needed. - When sitting, elevate your leg to improve blood flow and reduce swelling. For example, you can place your leg on a chair while sitting at the kitchen table. - If the wound is seeping, you may use a Band-Aid or place a towel underneath to manage drainage. We discussed signs to monitor for infection: - If you develop fever, chills, flu-like symptoms, red streaking near the wound, or if the swelling worsens, please return to the emergency room immediately. Follow-up: - Please return to the office on Wednesday for a re-evaluation of your leg. If you have any questions or concerns before your next visit, please contact our office. Sandra Coombs, RO.FLAGSETTER 05/23/2025 3:29 PM Signed CC: Patient presents with: Hospital F/U: Cat bite right lower leg HPI Recording using [employer] software for draft documentation of the visit was discussed with the patient/authorized consumer sales representative; all questions welcomed and answered. Patient/authorized consumer sales representative agreed to proceed Yann Adair is a 89-year-old female presenting for follow-up after an ER visit and hospitalization due to a cat bite on the right leg. Yann was seen in the ER on 05/12 for right leg erythema following a cat bite that occurred the previous day. She initially presented to urgent care on the day of the bite and was prescribed Augmentin, but developed emesis after two doses. In the ER, her right calf was noted to be erythematous and warm. Laboratory results showed a WBC count of 14 and sodium level of 129, with the remainder of the labs being unremarkable. She was admitted for overnight observation and discharged on cefdinir 300 mg PO BID and metronidazole 250 mg PO TID for 5 days, with Augmentin being discontinued. It was suspected that the nausea and vomiting were due to the Augmentin rather than the cat bite. A few days after returning home, Yann experienced increased pain at the bite site, which was managed with Tylenol. The bite area was also noted to be "seeping" fluid. Yann applied antiseptic and used a Band-Aid to manage the drainage. The swelling, initially significant, has been improving. She completed the prescribed antibiotics without experiencing diarrhea or vomiting. She denies fever or chills. 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 Generalized osteoarthrosis, unspecified site Glaucoma 02/23/2023 Herpes zoster January2010 Left perianal, left genitalia Other psoriasis RUPT EXTEN TENDON HAND 10/05/2005 Tinnitus 07/20/2007 Type II or unspecified type diabetes mellitus without mention of complication, not stated as uncontrolled Unspecified essential hypertension URINARY INCONTINENCE, UNSPECIFIED 08/10/2006 PAST SURGICAL HISTORY Procedure Laterality Date COLONOSCOPY FLX DX W/COLLJ SPEC WHEN PFRMD 01/28/2005 Colonoscopy CYSTOURETHROSCOPY 05/2005 Cystoscopy PAST SURGICAL HISTORY OF Bilateral 2015 Cataract surgery right eye in June and left eye in July by Dr. Liang. SALPINGECTOMY 1970 bilateral, tubal preg. 1970s SLING OPER STRES INCONTINENCE 05/2005 Dr. Rodriguez ALLERGIES Sulfur MEDICATIONS mirabegron (MYRBETRIQ) 25 mg Tb24 daily at bedtime. losartan (COZAAR) 25 mg tablet Take 1 tablet by mouth once daily. For high blood pressure. atorvastatin (LIPITOR) 10 mg tablet Take 1 tablet by mouth once daily. metFORMIN (GLUCOPHAGE) 500 mg tablet Take 1 tablet by mouth two times a day with meals. ROCKLATAN 0.02-0.005 % ophthalmic solution Use 1 Drop in both eyes daily at bedtime. cyanocobalamin, vitamin B-12, (VITAMIN B12 ORAL) Take 1 tablet by mouth once daily. methotrexate 2.5 mg tablet 6 tabs once weekly ferrous sulfate 325 mg (65 mg iron) tablet Take 1 tablet by mouth daily with b (more content not included)... Normal [facility] HbA1c (Bld)on 05-23-2025 Average glucose Estimated from glycated hemoglobin (Bld) [Mass/Vol] 120 mg/dL Normal [facility] Comment on above: Order Comment: Speci men Type: BLOOD SPECIMENOrdering Facility: [facility] Address: [address] [place] [address] Result Comment: eAG: (Estimated average glucose) is a calculated value from HgbA1c and is consumer sales representative of the average blood glucose level in the last 2-3 month period. Performed By: #### 5 5454-3 ####[facility] LABCLIA [id number] [place] [address] [place] HbA1c (Bld) [Mass fraction] 5.8 % High 4.3-5.6 [facility] Comment on above: Order Comment: Speci men Type: BLOOD SPECIMENOrdering Facility: [facility] Address: [address] [place] [address] Result Comment: [place] Diabetes Association guidelines indicate that patients with HgbA1c in the range 5.7-6.4% are at increased risk for development of diabetes, and intervention by lifestyle modification may be beneficial. HgbA1c greater or equal to 6.5% is considered diagnostic of diabetes. Performed By: #### 5 5454-3 ####[facility] LABCLIA [id number] [place] Culture, Blood (WB)on 2024 CUB Blood cultures x2, f rom two different sites No growth in 5 days. Normal [facility] Comment on above: Performed By: #### M 200.1000 ####[facility] [address] [place], [place], [address] Urine Cultureon 05-13-2025 URC #1, 2 Below infectio n level. GNR lactose media coordinator [place] Count <1000 Mixed Gram Positive Organisms Mixed Gram Positive Organisms MIXC Mixed contaminants. Submit a new specimen if indicated. Normal [facility] Comment on above: Performed By: #### M 100.2200 ####[facility] [address] [place], [address] Bedside Glucoseon 05-12-2025 FINGERSTICK GLU 135 mg/dL High 74-106 [facility] Comment on above: Result Comment: CARLOS GEMENT OF PATIENT CARE PER NURSING PROTOCOL Performed By: #### L 501.080 ####[facility] [address] [facility] [address] FINGERSTICK GLU 171 mg/dL High 74-106 [facility] Comment on above: Result Comment: CARLOS GEMENT OF PATIENT CARE PER NURSING PROTOCOL Performed By: #### L 501.080 ####[facility] [address] [facility] [address] FINGERSTICK GLU 157 mg/dL High 74-106 [facility] Comment on above: Result Comment: CARLOS GEMENT OF PATIENT CARE PER NURSING PROTOCOL Performed By: #### L 501.080 ####[facility] [address] [facility] [address] Discharge Instructionon 04-16 Discharge Instruction Normal [facility] deOrdered By: Benny Junior on 05-12-2025 Glucose [Mass/Vol] 135 mg/dL High 74-106 [facility] Comment on above: MANAGEMENT OF PATIEN T CARE PER NURSING PROTOCOL Absolute lymphocyte countOrd ered By: Misty Blanco on 05-11-2025 Lymphocytes Auto (Unsp spec) [#/Vol] 1.12 10*3/uL 0.83-4.51 [facility] Absolute neutrophil countOrd ered By: Misty Bella on 05-11-2025 Neutrophils (Bld) [#/Vol] 7.5 10*3/uL 2.0-7.7 [facility] Anion gap in Serum or Plasma Ordered By: Misty Blanco on 05-11-2025 Anion gap [Moles/Vol] 11 mmol/L 5-15 [facility] Automated lymphocyte count a s percentage of total leukocytesOrdered By: Misty Blanco on 05-11-2025 Lymphocytes/100 WBC Auto (Unsp spec) 12.1 % Low 19-41 [facility] BUN/creatinine ratioOrdered By: Misty Blanco on 05-11-2025 Urea nitrogen/Creatinine [Mass ratio] 20.9 mg/mg High 10-20 [facility] Basophil percentageOrdered B y: Misty Blanco on 05-11-2025 Basophils/100 WBC (Bld) 0.2 % 0-1 [facility] Bedside Glucoseon 05-11-2025 FINGERSTICK GLU 153 mg/dL High 74-106 [facility] Comment on above: Result Comment: CARLOS GEMENT OF PATIENT CARE PER NURSING PROTOCOL Performed By: #### L 501.080 ####[facility] [address] [facility] [address] FINGERSTICK GLU 116 mg/dL High 74-106 [facility] Comment on above: Result Comment: CARLOS GEMENT OF PATIENT CARE PER NURSING PROTOCOL Performed By: #### L 501.080 ####[facility] [address] [place], [address] FINGERSTICK GLU 157 mg/dL High 74-106 [facility] Comment on above: Result Comment: CARLOS GEMENT OF PATIENT CARE PER NURSING PROTOCOL Performed By: #### L 501.080 ####[facility] [address] [place], [address] FINGERSTICK GLU 125 mg/dL High 74-106 [facility] Comment on above: Result Comment: CARLOS GEMENT OF PATIENT CARE PER NURSING PROTOCOL Performed By: #### L 501.080 ####[facility] [address] [place], [address] FINGERSTICK GLU 209 mg/dL High 74-106 [facility] Comment on above: Result Comment: CARLOS GEMENT OF PATIENT CARE PER NURSING PROTOCOL Performed By: #### L 501.080 ####[facility] [address] [place], [address] Bilirubin, totalOrdered By: Misty Blanco on 05-11-2025 Bilirubin [Mass/Vol] 0.66 mg/dL 0.00-1.30 [facility] CBC W/Diff, Automatedon 04-16 Absolute Lymph 1.12 X10 3/uL Normal 0.83-4.51 [facility] Comment on above: Performed By: #### L 100.0100, L500.4050 ####[facility] [address] [place], [address] Absolute Neut 7.5 X10 3/uL Normal 2.0-7.7 [facility] Comment on above: Performed By: #### L 100.0100, L500.4050 ####[facility] [address] [place], [address] Basophils/100 WBC (Bld) 0.2 % Normal 0-1 [facility] Comment on above: Performed By: #### L 100.0100, L500.4050 ####[facility] [address] [place], [address] Eosinophils/100 WBC (Bld) 0.5 % Normal 0-5 [facility] Comment on above: Performed By: #### L 100.0100, L500.4050 ####[facility] [address] [place], [address] Erythrocyte distribution width (RBC) [Ratio] 13.9 % Normal 11.6-14.6 [facility] Comment on above: Performed By: #### L 100.0100, L500.4050 ####[facility] [address] [place], [address] Hematocrit (Bld) [Volume fraction] 34.4 % Low 37-47 [facility] Comment on above: Performed By: #### L 100.0100, L500.4050 ####[facility] [address] [place], [address] Hemoglobin (Bld) [Mass/Vol] 10.9 g/dL Low 12.0-15.0 [facility] Comment on above: Performed By: #### L 100.0100, L500.4050 ####[facility] [address] [place], [address] IG% 0.500 Normal 0.0-0.9 [facility] Comment on above: Result Comment: IG% - Immature Granulocytes (promyelocytes, myelocytes andmetamyelocytes) > 1% indicates that a LEFT SHIFT is Present. Performed By: #### L 100.0100, L500.4050 ####[facility] [address] [place], [address] Lymphocytes/100 WBC (Bld) 12.1 % Low 19-41 [facility] Comment on above: Performed By: #### L 100.0100, L500.4050 ####[facility] [address] [place], [address] MCH (RBC) [Entitic mass] 31.2 pg Normal 27.0-32.0 [facility] Comment on above: Performed By: #### L 100.0100, L500.4050 ####[facility] [address] [place], [address] MCHC (RBC) [Mass/Vol] 31.7 g/dL Low 32-36 [facility] Comment on above: Performed By: #### L 100.0100, L500.4050 ####[facility] [address] [place], [address] MCV (RBC) [Entitic vol] 98.6 fL Normal 81-99 [facility] Comment on above: Performed By: #### L 100.0100, L500.4050 ####[facility] [address] [place], [address] Monocytes/100 WBC (Bld) 5.4 % Normal 0-10 [facility] Comment on above: Performed By: #### L 100.0100, L500.4050 ####[facility] [address] [place], [address] Neutrophils/100 WBC (Bld) 81.3 % High 47-70 [facility] Comment on above: Performed By: #### L 100.0100, L500.4050 ####[facility] [address] [place], [address] Nucleated RBC (Bld) [#/Vol] 0 10*3/uL Normal 0-5 [facility] Comment on above: Performed By: #### L 100.0100, L500.4050 ####[facility] [address] [place], [address] Platelet mean volume (Bld) [Entitic vol] 10.2 fL Normal 6.2-12.0 [facility] Comment on above: Performed By: #### L 100.0100, L500.4050 ####[facility] [address] [place], [address] Platelets (Bld) [#/Vol] 201 10*3/uL Normal 150-450 [facility] Comment on above: Performed By: #### L 100.0100, L500.4050 ####[facility] [address] [place], [address] RBC (Bld) [#/Vol] 3.49 10*6/uL Low 4.2-5.4 [facility] Comment on above: Performed By: #### L 100.0100, L500.4050 ####[facility] [address] [place], [address] RDW SD 48.8 fl High 35.1-43.9 [facility] Comment on above: Performed By: #### L 100.0100, L500.4050 ####[facility] [address] [place], [address] WBC (Bld) [#/Vol] 9.2 10*3/uL Normal 4.4-11.0 [facility] Comment on above: Performed By: #### L 100.0100, L500.4050 ####[facility] [address] [place], [address] Carbon dioxide, total [Moles /volume] in Central venous bloodOrdered By: Misty Blanco on 05-11-2025 CO2 [Moles/Vol] 22.7 mmol/L 21.0-32.0 [facility] Chloride assayOrdered By: Nancy Blanco on 05-11-2025 Chloride [Moles/Vol] 101 mmol/L 98-108 [facility] Comprehensive Metabolic Prof ilon 05-11-2025 Albumin [Mass/Vol] 3.7 g/dL Normal 3.4-4.8 [facility] Comment on above: Performed By: #### L 100.0100, L500.4050 ####[facility] [address] [place], [address] Albumin/Globulin [Mass ratio] 1.2 {ratio} Normal 0.9-2.4 [facility] Comment on above: Performed By: #### L 100.0100, L500.4050 ####[facility] [address] [place], [address] ALK PHOS 75 U/L Normal 35-104 [facility] Comment on above: Performed By: #### L 100.0100, L500.4050 ####[facility] [address] [place], [address] ALT [Catalytic activity/Vol] 13 U/L Normal <=34 [facility] Comment on above: Performed By: #### L 100.0100, L500.4050 ####[facility] [address] [place], [address] AST [Catalytic activity/Vol] 18 U/L Normal <=31 [facility] Comment on above: Performed By: #### L 100.0100, L500.4050 ####[facility] [address] [place], [address] Bilirubin [Mass/Vol] 0.66 mg/dL Normal 0.00-1.30 [facility] Comment on above: Performed By: #### L 100.0100, L500.4050 ####[facility] [address] [place], [address] BUN/CRE 20.9 RATIO High 10-20 [facility] Comment on above: Performed By: #### L 100.0100, L500.4050 ####[facility] [address] [place], [address] Calcium [Mass/Vol] 9.6 mg/dL Normal 7.6-11.0 [facility] Comment on above: Performed By: #### L 100.0100, L500.4050 ####[facility] [address] [place], [address] Chloride [Moles/Vol] 101 mmol/L Normal 98-108 [facility] Comment on above: Performed By: #### L 100.0100, L500.4050 ####[facility] [address] [place], [address] CO2 [Moles/Vol] 22.7 mmol/L Normal 21.0-32.0 [facility] Comment on above: Performed By: #### L 100.0100, L500.4050 ####[facility] [address] [place], [address] Creatinine [Mass/Vol] 0.71 mg/dL Normal 0.70-1.20 [facility] Comment on above: Performed By: #### L 100.0100, L500.4050 ####[facility] [address] [place], [address] ECRCL 42.90 ml/min Low 50-250 [facility] Comment on above: Performed By: #### L 100.0100, L500.4050 ####[facility] [address] [place], [address] GAP 11 Normal 5-15 [facility] Comment on above: Performed By: #### L 100.0100, L500.4050 ####[facility] [address] [place], [address] GFR/1.73 sq M.predicted among non-blacks MDRD (S/P/Bld) [Vol rate/Area] 81 mL/min/{1.73_m2} Normal >60 [facility] Comment on above: Result Comment: mL/m in/1.73m2 CKD-EPI Creatinine Equation (2020) Performed By: #### L 100.0100, L500.4050 ####[facility] [address] [place], [address] Globulin (S) [Mass/Vol] 3.1 g/dL Normal 2.2-4.2 [facility] Comment on above: Performed By: #### L 100.0100, L500.4050 ####[facility] [address] [place], [address] Glucose [Mass/Vol] 134 mg/dL High 70-99 [facility] Comment on above: Performed By: #### L 100.0100, L500.4050 ####[facility] [address] [place], [address] Potassium [Moles/Vol] 3.8 mmol/L Normal 3.3-5.1 [facility] Comment on above: Performed By: #### L 100.0100, L500.4050 ####[facility] [address] [place], [address] Sodium [Moles/Vol] 135 mmol/L Normal 133-145 [facility] Comment on above: Performed By: #### L 100.0100, L500.4050 ####[facility] [address] [place], [address] T PROT 6.8 g/dL Normal 5.9-8.4 [facility] Comment on above: Performed By: #### L 100.0100, L500.4050 ####[facility] [address] [place], [address] Urea nitrogen [Mass/Vol] 15 mg/dL Normal 4-19 [facility] Comment on above: Performed By: #### L 100.0100, L500.4050 ####[facility] [address] [place], [address] Eosinophil percentageOrdered By: Misty Blanco on 05-11-2025 Eosinophils/100 WBC (Bld) 0.5 % 0-5 [facility] Erythrocyte distribution wid th ratioOrdered By: Misty Blanco on 05-11-2025 Erythrocyte distribution width (RBC) [Ratio] 13.9 % 11.6-14.6 [facility] Erythrocyte distribution wid th standard deviationOrdered By: Misty Bella on 05-11-2025 Erythrocyte distribution width (RBC) [Ratio] 48.8 fl High 35.1-43.9 [facility] Glomerular filtration rate ( GFR) estimation/1.73 sq m using serum, plasma, or whole bOrdered By: Misty Blanco on 05-11-2025 GFR/1.73 sq M.predicted among non-blacks MDRD (S/P/Bld) [Vol rate/Area] 81 mL/min/{1.73_m2} >60 [facility] Comment on above: mL/min/1.73m2 CKD-EP I Creatinine Equation (2020) Hematocrit Auto (Bld) [Volum e fraction]Ordered By: Misty Blanco on 05-11-2025 Hematocrit (Bld) [Volume fraction] 34.4 % Low 37-47 [facility] Hemoglobin measurementOrdere d By: Misty Blanco on 05-11-2025 Hemoglobin (Bld) [Mass/Vol] 10.9 g/dL Low 12.0-15.0 [facility] Immature granulocytes/100 WB C Auto (Bld)Ordered By: Misty Blanco on 05-11-2025 Immature granulocytes/100 WBC (Bld) 0.500 % 0.0-0.9 [facility] Comment on above: IG% - Immature Granu locytes (promyelocytes, myelocytes and metamyelocytes) > 1% indicates that a LEFT SHIFT is Present. Laboratory - Chemistry and C hemistry - challengeOrdered By: Misty Blanco on 05-11-2025 AST [Catalytic activity/Vol] 18 U/L <32 [facility] MCV (mean corpuscular volume ) determinationOrdered By: Misty Bella on 05-11-2025 MCV (RBC) [Entitic vol] 98.6 fL 81-99 [facility] Mean corpuscular hemoglobin (MCH) determinationOrdered By: Misty Bella on 05-11-2025 MCH (RBC) [Entitic mass] 31.2 pg 27.0-32.0 [facility] Mean corpuscular hemoglobin concentration (MCHC) determinationOrdered By: Misty Blanco on 05-11-2025 MCHC (RBC) [Mass/Vol] 31.7 g/dL Low 32-36 [facility] Mean platelet volume determi nationOrdered By: Misty Bella on 05-11-2025 Platelet mean volume (Bld) [Entitic vol] 10.2 fL 6.2-12.0 [facility] Monocyte percentageOrdered B y: Misty Bella on 05-11-2025 Monocytes/100 WBC (Bld) 5.4 % 0-10 [facility] Neutrophil percentageOrdered By: Misty Bella on 05-11-2025 Neutrophils/100 WBC (Bld) 81.3 % High 47-70 [facility] Nucleated red blood cell per centageOrdered By: Misty Bella on 05-11-2025 Nucleated RBC/100 WBC (Bld) [Ratio] 0 % 0-5 [facility] Platelet countOrdered By: Nancy Blanco on 05-11-2025 Platelets (Bld) [#/Vol] 201 10*3/uL 150-450 [facility] Potassium measurement (mass/ volume)Ordered By: Misty Blanco on 05-11-2025 Potassium (Unsp spec) [Mass/Vol] 3.8 mmol/L 3.3-5.1 [facility] RBC Auto (Bld) [#/Vol]Ordere d By: Misty Blanco on 05-11-2025 RBC (Bld) [#/Vol] 3.49 10*6/uL Low 4.2-5.4 [facility] Serum creatinine measurement (mass/volume)Ordered By: Misty Blanco on 05-11-2025 Creatinine [Mass/Vol] 0.71 mg/dL 0.70-1.20 [facility] Serum globulin measurementOr dered By: Misty Blanco on 05-11-2025 Globulin (S) [Mass/Vol] 3.1 g/dL 2.2-4.2 [facility] Serum glucose measurement (m ass/volume)Ordered By: Misty Blanco on 05-11-2025 Glucose [Mass/Vol] 134 mg/dL High 70-99 [facility] Serum or plasma alanine meza otransferase (ALT) measurementOrdered By: Misty Blanco on 05-11-2025 ALT [Catalytic activity/Vol] 13 U/L <35 [facility] Serum or plasma albumin rhonda urement (mass/volume)Ordered By: Misty Blanco on 05-11-2025 Albumin [Mass/Vol] 3.7 g/dL 3.4-4.8 [facility] Serum or plasma albumin/glob ulin mass ratioOrdered By: Misty Blanco on 05-11-2025 Albumin/Globulin [Mass ratio] 1.2 {ratio} 0.9-2.4 [facility] Serum or plasma alkaline yosvany sphatase measurementOrdered By: Misty Blanco on 05-11-2025 ALP [Catalytic activity/Vol] 75 U/L 35-104 [facility] Serum or plasma calcium rhonda urement (mass/volume)Ordered By: Misty Blanco on 05-11-2025 Calcium [Mass/Vol] 9.6 mg/dL 7.6-11.0 [facility] Serum or plasma urea nitroge n measurement (mass/volume)Ordered By: Misty Blanco on 05-11-2025 Urea nitrogen [Mass/Vol] 15 mg/dL 4-19 [facility] Sodium levelOrdered By: Erickau mn Bella on 05-11-2025 Sodium [Moles/Vol] 135 mmol/L 133-145 [facility] Total proteinOrdered By: Ericka umn White on 05-11-2025 Protein [Mass/Vol] 6.8 g/dL 5.9-8.4 [facility] White blood cell (WBC) count Ordered By: Misty Blanco on 05-11-2025 WBC (Bld) [#/Vol] 9.2 10*3/uL 4.4-11.0 [facility] Absolute lymphocyte countOrd ered By: Josseline Araujo on 05-10-2025 Lymphocytes Auto (Unsp spec) [#/Vol] 0.74 10*3/uL Low 0.83-4.51 [facility] Absolute neutrophil countOrd ered By: Josseline Araujo on 05-10-2025 Neutrophils (Bld) [#/Vol] 13.2 10*3/uL High 2.0-7.7 [facility] Amorphous sediment detection in urine sediment by light microscopyOrdered By: Josseline Araujo on 05-10-2025 Amorphous sediment LM Ql (Urine sed) 1+ [facility] Anion gap in Serum or Plasma Ordered By: Josseline Araujo on 05-10-2025 Anion gap [Moles/Vol] 14 mmol/L 5-15 [facility] Automated lymphocyte count a s percentage of total leukocytesOrdered By: Josseline Araujo on 05-10-2025 Lymphocytes/100 WBC Auto (Unsp spec) 5.0 % Low 19-41 [facility] BUN/creatinine ratioOrdered By: Josseline Araujo on 05-10-2025 Urea nitrogen/Creatinine [Mass ratio] 22.7 mg/mg High 10-20 [facility] Basophil percentageOrdered B y: Josseline Araujo on 05-10-2025 Basophils/100 WBC (Bld) 0.1 % 0-1 [facility] Bilirubin Test strip Ql (U)O rdered By: Josseline Araujo on 05-10-2025 Bilirubin Ql (U) Negative Negative [facility] Bilirubin, totalOrdered By: Josseline Araujo on 05-10-2025 Bilirubin [Mass/Vol] 0.71 mg/dL 0.00-1.30 [facility] Blood cultureOrdered By: Fatimah Araujo on 05-10-2025 Bacteria identified Cx Nom (Bld) No growth in 5 days. [facility] Bacteria identified Cx Nom (Bld) No growth in 5 days. [facility] CBC W/Diff, Automatedon 06-2 -2024 Absolute Lymph 0.74 X10 3/uL Low 0.83-4.51 [facility] Comment on above: Performed By: #### L 501.6710, L100.0100, L500.4050, L503.6005 ####[facility] [address] [place], [address] Absolute Neut 13.2 X10 3/uL High 2.0-7.7 [facility] Comment on above: Performed By: #### L 501.6710, L100.0100, L500.4050, L503.6005 ####[facility] [address] [place], [address] Basophils/100 WBC (Bld) 0.1 % Normal 0-1 [facility] Comment on above: Performed By: #### L 501.6710, L100.0100, L500.4050, L503.6005 ####[facility] [address] [place], [address] Eosinophils/100 WBC (Bld) 0.1 % Normal 0-5 [facility] Comment on above: Performed By: #### L 501.6710, L100.0100, L500.4050, L503.6005 ####[facility] [address] [place], [address] Erythrocyte distribution width (RBC) [Ratio] 13.9 % Normal 11.6-14.6 [facility] Comment on above: Performed By: #### L 501.6710, L100.0100, L500.4050, L503.6005 ####[facility] [address] [place], [address] Hematocrit (Bld) [Volume fraction] 37.4 % Normal 37-47 [facility] Comment on above: Performed By: #### L 501.6710, L100.0100, L500.4050, L503.6005 ####[facility] [address] [place], [address] Hemoglobin (Bld) [Mass/Vol] 12.1 g/dL Normal 12.0-15.0 [facility] Comment on above: Performed By: #### L 501.6710, L100.0100, L500.4050, L503.6005 ####[facility] [address] [place], [address] IG% 0.600 Normal 0.0-0.9 [facility] Comment on above: Result Comment: IG% - Immature Granulocytes (promyelocytes, myelocytes andmetamyelocytes) > 1% indicates that a LEFT SHIFT is Present. Performed By: #### L 501.6710, L100.0100, L500.4050, L503.6005 ####[facility] [address] [place], [address] Lymphocytes/100 WBC (Bld) 5.0 % Low 19-41 [facility] Comment on above: Performed By: #### L 501.6710, L100.0100, L500.4050, L503.6005 ####[facility] [address] [place], [address] MCH (RBC) [Entitic mass] 31.7 pg Normal 27.0-32.0 [facility] Comment on above: Performed By: #### L 501.6710, L100.0100, L500.4050, L503.6005 ####[facility] [address] [place], [address] MCHC (RBC) [Mass/Vol] 32.4 g/dL Normal 32-36 [facility] Comment on above: Performed By: #### L 501.6710, L100.0100, L500.4050, L503.6005 ####[facility] [address] [place], [address] MCV (RBC) [Entitic vol] 97.9 fL Normal 81-99 [facility] Comment on above: Performed By: #### L 501.6710, L100.0100, L500.4050, L503.6005 ####[facility] [address] [place], [address] Monocytes/100 WBC (Bld) 5.4 % Normal 0-10 [facility] Comment on above: Performed By: #### L 501.6710, L100.0100, L500.4050, L503.6005 ####[facility] [address] [place], [address] Neutrophils/100 WBC (Bld) 88.8 % High 47-70 [facility] Comment on above: Performed By: #### L 501.6710, L100.0100, L500.4050, L503.6005 ####[facility] [address] [place], [address] Nucleated RBC (Bld) [#/Vol] 0 10*3/uL Normal 0-5 [facility] Comment on above: Performed By: #### L 501.6710, L100.0100, L500.4050, L503.6005 ####[facility] [address] [place], [address] Platelet mean volume (Bld) [Entitic vol] 10.1 fL Normal 6.2-12.0 [facility] Comment on above: Performed By: #### L 501.6710, L100.0100, L500.4050, L503.6005 ####[facility] [address] [place], [address] Platelets (Bld) [#/Vol] 226 10*3/uL Normal 150-450 [facility] Comment on above: Performed By: #### L 501.6710, L100.0100, L500.4050, L503.6005 ####[facility] [address] [place], [address] RBC (Bld) [#/Vol] 3.82 10*6/uL Low 4.2-5.4 [facility] Comment on above: Performed By: #### L 501.6710, L100.0100, L500.4050, L503.6005 ####[facility] [address] [place], [address] RDW SD 48.8 fl High 35.1-43.9 [facility] Comment on above: Performed By: #### L 501.6710, L100.0100, L500.4050, L503.6005 ####[facility] [address] [place], [address] WBC (Bld) [#/Vol] 14.9 10*3/uL High 4.4-11.0 [facility] Comment on above: Performed By: #### L 501.6710, L100.0100, L500.4050, L503.6005 ####[facility] [address] [place], [address] CRPon 05-10-2025 C-REACTIVE PROT 163.00 mg/L High 0.0-3.0 [facility] Comment on above: Performed By: #### L 501.6710, L100.0100, L500.4050, L503.6005 ####[facility] [address] [place], [address] Carbon dioxide, total [Moles /volume] in Central venous bloodOrdered By: Josseline Araujo on 05-10-2025 CO2 [Moles/Vol] 21.6 mmol/L 21.0-32.0 [facility] Chest PA and Lateralon 05-10 Chest PA and Lateral Normal [facility] Chloride assayOrdered By: Augustus Araujo on 05-10-2025 Chloride [Moles/Vol] 94 mmol/L Low 98-108 [facility] Comprehensive Metabolic Prof ilon 05-10-2025 Albumin [Mass/Vol] 4.2 g/dL Normal 3.4-4.8 [facility] Comment on above: Performed By: #### L 501.6710, L100.0100, L500.4050, L503.6005 ####[facility] [address] [place], [address] Albumin/Globulin [Mass ratio] 1.3 {ratio} Normal 0.9-2.4 [facility] Comment on above: Performed By: #### L 501.6710, L100.0100, L500.4050, L503.6005 ####[facility] [address] [place], [address] ALK PHOS 74 U/L Normal 35-104 [facility] Comment on above: Performed By: #### L 501.6710, L100.0100, L500.4050, L503.6005 ####[facility] [address] [place], [address] ALT [Catalytic activity/Vol] 14 U/L Normal <=34 [facility] Comment on above: Performed By: #### L 501.6710, L100.0100, L500.4050, L503.6005 ####[facility] [address] [place], [address] AST [Catalytic activity/Vol] 19 U/L Normal <=31 [facility] Comment on above: Performed By: #### L 501.6710, L100.0100, L500.4050, L503.6005 ####[facility] [address] [place], [address] Bilirubin [Mass/Vol] 0.71 mg/dL Normal 0.00-1.30 [facility] Comment on above: Performed By: #### L 501.6710, L100.0100, L500.4050, L503.6005 ####[facility] [address] [place], [address] BUN/CRE 22.7 RATIO High 10-20 [facility] Comment on above: Performed By: #### L 501.6710, L100.0100, L500.4050, L503.6005 ####[facility] [address] [place], [address] Calcium [Mass/Vol] 10.0 mg/dL Normal 7.6-11.0 [facility] Comment on above: Performed By: #### L 501.6710, L100.0100, L500.4050, L503.6005 ####[facility] [address] [place], [address] Chloride [Moles/Vol] 94 mmol/L Low 98-108 [facility] Comment on above: Performed By: #### L 501.6710, L100.0100, L500.4050, L503.6005 ####[facility] [address] [place], [address] CO2 [Moles/Vol] 21.6 mmol/L Normal 21.0-32.0 [facility] Comment on above: Performed By: #### L 501.6710, L100.0100, L500.4050, L503.6005 ####[facility] [address] [place], [address] Creatinine [Mass/Vol] 0.89 mg/dL Normal 0.70-1.20 [facility] Comment on above: Performed By: #### L 501.6710, L100.0100, L500.4050, L503.6005 ####[facility] [address] [place], [address] ECRCL 37.00 ml/min Low 50-250 [facility] Comment on above: Performed By: #### L 501.6710, L100.0100, L500.4050, L503.6005 ####[facility] [address] [place], [address] GAP 14 Normal 5-15 [facility] Comment on above: Performed By: #### L 501.6710, L100.0100, L500.4050, L503.6005 ####[facility] [address] [place], [address] GFR/1.73 sq M.predicted among non-blacks MDRD (S/P/Bld) [Vol rate/Area] 62 mL/min/{1.73_m2} Normal >60 [facility] Comment on above: Result Comment: mL/m in/1.73m2 CKD-EPI Creatinine Equation (2020) Performed By: #### L 501.6710, L100.0100, L500.4050, L503.6005 ####[facility] [address] [place], [address] Globulin (S) [Mass/Vol] 3.3 g/dL Normal 2.2-4.2 [facility] Comment on above: Performed By: #### L 501.6710, L100.0100, L500.4050, L503.6005 ####[facility] [address] [place], [address] Glucose [Mass/Vol] 201 mg/dL High 70-99 [facility] Comment on above: Performed By: #### L 501.6710, L100.0100, L500.4050, L503.6005 ####[facility] [address] [place], [address] Potassium [Moles/Vol] 4.2 mmol/L Normal 3.3-5.1 [facility] Comment on above: Performed By: #### L 501.6710, L100.0100, L500.4050, L503.6005 ####[facility] [address] [place], [address] Sodium [Moles/Vol] 129 mmol/L Low 133-145 [facility] Comment on above: Performed By: #### L 501.6710, L100.0100, L500.4050, L503.6005 ####[facility] [address] [place], [address] T PROT 7.5 g/dL Normal 5.9-8.4 [facility] Comment on above: Performed By: #### L 501.6710, L100.0100, L500.4050, L503.6005 ####[facility] [address] [place], [address] Urea nitrogen [Mass/Vol] 20 mg/dL High 4-19 [facility] Comment on above: Performed By: #### L 501.6710, L100.0100, L500.4050, L503.6005 ####[facility] [address] [place], [address] Emergency Department Summary on 05-10-2025 Emergency Department Summary Normal [facility] Eosinophil percentageOrdered By: Josseline Araujo on 05-10-2025 Eosinophils/100 WBC (Bld) 0.1 % 0-5 [facility] Erythrocyte distribution wid th ratioOrdered By: Josseline Araujo on 05-10-2025 Erythrocyte distribution width (RBC) [Ratio] 13.9 % 11.6-14.6 [facility] Erythrocyte distribution wid th standard deviationOrdered By: Josseline Araujo on 05-10-2025 Erythrocyte distribution width (RBC) [Ratio] 48.8 fl High 35.1-43.9 [facility] Glomerular filtration rate ( GFR) estimation/1.73 sq m using serum, plasma, or whole bOrdered By: Josseline Araujo on 05-10-2025 GFR/1.73 sq M.predicted among non-blacks MDRD (S/P/Bld) [Vol rate/Area] 62 mL/min/{1.73_m2} >60 [facility] Comment on above: mL/min/1.73m2 CKD-EP I Creatinine Equation (2020) H AND P Exam - Hospitaliston 05-10-2025 H&P Exam - Hospitalist Normal [facility] Hematocrit Auto (Bld) [Volum e fraction]Ordered By: Josseline Araujo on 05-10-2025 Hematocrit (Bld) [Volume fraction] 37.4 % 37-47 [facility] Hemoglobin measurementOrdere d By: Josseline Araujo on 05-10-2025 Hemoglobin (Bld) [Mass/Vol] 12.1 g/dL 12.0-15.0 [facility] Immature granulocytes/100 WB C Auto (Bld)Ordered By: Josseline Araujo on 05-10-2025 Immature granulocytes/100 WBC (Bld) 0.600 % 0.0-0.9 [facility] Comment on above: IG% - Immature Granu locytes (promyelocytes, myelocytes and metamyelocytes) > 1% indicates that a LEFT SHIFT is Present. Ketones Test strip Ql (U)Ord ered By: Josseline Araujo on 05-10-2025 Ketones Ql (U) 15 mg/dl High Negative [facility] Laboratory - Chemistry and C hemistry - challengeOrdered By: Josseline Araujo on 05-10-2025 AST [Catalytic activity/Vol] 19 U/L <32 [facility] Lactic acid measurementOrder ed By: Josseline Araujo on 05-10-2025 Lactate [Moles/Vol] 1.9 mmol/L Normal 0.0-2.0 [facility] Comment on above: Order Comment: Y Performed By: #### L 501.6791, L100.0100, L500.4050, L503.6008 ####[facility] [address] [place], [address] MCV (mean corpuscular volume ) determinationOrdered By: Josseline Araujo on 05-10-2025 MCV (RBC) [Entitic vol] 97.9 fL 81-99 [facility] Mean corpuscular hemoglobin (MCH) determinationOrdered By: Josseline Araujo on 05-10-2025 MCH (RBC) [Entitic mass] 31.7 pg 27.0-32.0 [facility] Mean corpuscular hemoglobin concentration (MCHC) determinationOrdered By: Josseline Araujo on 05-10-2025 MCHC (RBC) [Mass/Vol] 32.4 g/dL 32-36 [facility] Mean platelet volume determi nationOrdered By: Josseline Araujo on 05-10-2025 Platelet mean volume (Bld) [Entitic vol] 10.1 fL 6.2-12.0 [facility] Microscopic analysis of urin e for red blood cells (RBC)Ordered By: Josseline Araujo on 05-10-2025 Microscopic analysis of urine for red blood cells (RBC) 0-5 SEEN /hpf 0-5 [facility] Monocyte percentageOrdered B y: Josseline Araujo on 05-10-2025 Monocytes/100 WBC (Bld) 5.4 % 0-10 [facility] Mucus LM Ql (Urine sed)Order ed By: Josseline Araujo on 05-10-2025 Mucus Ql (Urine sed) 0 SEEN /hpf [facility] Neutrophil percentageOrdered By: Josseline Araujo on 05-10-2025 Neutrophils/100 WBC (Bld) 88.8 % High 47-70 [facility] Nitrite Test strip Ql (U)Ord ered By: Josseline Araujo on 05-10-2025 Nitrite Ql (U) Negative Negative [facility] Nucleated red blood cell per centageOrdered By: Josseline Araujo on 05-10-2025 Nucleated RBC/100 WBC (Bld) [Ratio] 0 % 0-5 [facility] Platelet countOrdered By: Augustus Araujo on 05-10-2025 Platelets (Bld) [#/Vol] 226 10*3/uL 150-450 [facility] Potassium measurement (mass/ volume)Ordered By: Josseline Araujo on 05-10-2025 Potassium (Unsp spec) [Mass/Vol] 4.2 mmol/L 3.3-5.1 [facility] Protein Test strip Ql (U)Ord ered By: Josseline Araujo on 05-10-2025 Protein Ql (U) 30 mg/dl High Negative [facility] RBC Auto (Bld) [#/Vol]Ordere d By: Josseline Araujo on 05-10-2025 RBC (Bld) [#/Vol] 3.82 10*6/uL Low 4.2-5.4 [facility] Serum creatinine measurement (mass/volume)Ordered By: Josseline Araujo on 05-10-2025 Creatinine [Mass/Vol] 0.89 mg/dL 0.70-1.20 [facility] Serum globulin measurementOr dered By: Josseline Araujo on 05-10-2025 Globulin (S) [Mass/Vol] 3.3 g/dL 2.2-4.2 [facility] Serum glucose measurement (m ass/volume)Ordered By: Josseline Araujo on 05-10-2025 Glucose [Mass/Vol] 201 mg/dL High 70-99 [facility] Serum or plasma C reactive p rotein measurement (mass/volume)Ordered By: Josseline Araujo on 05-10-2025 CRP [Mass/Vol] 163.00 mg/L High 0.0-3.0 [facility] Serum or plasma alanine meza otransferase (ALT) measurementOrdered By: Josseline Araujo on 05-10-2025 ALT [Catalytic activity/Vol] 14 U/L <35 [facility] Serum or plasma albumin rhonda urement (mass/volume)Ordered By: Josseline Araujo on 05-10-2025 Albumin [Mass/Vol] 4.2 g/dL 3.4-4.8 [facility] Serum or plasma albumin/glob ulin mass ratioOrdered By: Josseline Araujo on 05-10-2025 Albumin/Globulin [Mass ratio] 1.3 {ratio} 0.9-2.4 [facility] Serum or plasma alkaline yosvany sphatase measurementOrdered By: Josseline Araujo on 05-10-2025 ALP [Catalytic activity/Vol] 74 U/L 35-104 [facility] Serum or plasma calcium rhonda urement (mass/volume)Ordered By: Josseline Araujo on 05-10-2025 Calcium [Mass/Vol] 10.0 mg/dL 7.6-11.0 [facility] Serum or plasma urea nitroge n measurement (mass/volume)Ordered By: Josseline Araujo on 05-10-2025 Urea nitrogen [Mass/Vol] 20 mg/dL High 4-19 [facility] Sodium levelOrdered By: Nga Araujo on 05-10-2025 Sodium [Moles/Vol] 129 mmol/L Low 133-145 [facility] Squamous epithelial cells de tection in urine sediment by light microscopyOrdered By: Josseline Araujo on 05-10-2025 Epithelial cells.squamous LM Ql (Urine sed) 0-5 SEEN /hpf 5- [facility] Total proteinOrdered By: Fatimah Araujo on 05-10-2025 Protein [Mass/Vol] 7.5 g/dL 5.9-8.4 [facility] Urinalysis complete panel - Urineon 05-10-2025 Urinalysis complete panel (U) [facility] Urinalysis, Completeon 05-10 AMORPHOUS 1+ Normal [facility] Comment on above: Order Comment: CLEAN CATCH Performed By: #### L 400.0001 ####[facility] [address] [place], [address] BACTERIA 1+ /hpf Normal None Seen [facility] Comment on above: Order Comment: CLEAN CATCH Performed By: #### L 400.0001 ####[facility] [address] [place], [address] EPI,SQUAMOUS 0-5 SEEN Normal 5-10 [facility] Comment on above: Order Comment: CLEAN CATCH Performed By: #### L 400.0001 ####[facility] [address] [place], [address] RBC 0-5 SEEN Normal 0-5 [facility] Comment on above: Order Comment: CLEAN CATCH Performed By: #### L 400.0001 ####[facility] [address] [place], [address] WBC 25-50 SEEN Normal 0-5 [facility] Comment on above: Order Comment: CLEAN CATCH Performed By: #### L 400.0001 ####[facility] [address] [place], [address] BACTERIA 0 SEEN Normal None Seen [facility] Comment on above: Order Comment: COLLE CTOR TO SPECIFY Result Comment: This specimen has been REJECTED due to Laboratory criteria:Duplicate Order.NIGEL DAVISILLEN has been notified AND OKAYED CANCELLATION.05/10/251952 Emily Jamie Performed By: #### L 400.0001 ####[facility] [address] [place], [address] EPI,SQUAMOUS 0 SEEN Normal 5-10 [facility] Comment on above: Order Comment: COLLE CTOR TO SPECIFY Result Comment: This specimen has been REJECTED due to Laboratory criteria:Duplicate Order.NIGEL MILDERD has been notified AND OKAYED CANCELLATION.05/10/251952 Emily Jamie Performed By: #### L 400.0001 ####[facility] [address] [place], [address] Mucus Ql (Urine sed) 0 SEEN Normal [facility] Comment on above: Order Comment: CLEAN CATCH Performed By: #### L 400.0001 ####[facility] [address] [place], [address] Order Comment: MICHELLE CTDARA TO SPECIFY Result Comment: This specimen has been REJECTED due to Laboratory criteria:Duplicate Order.NIGEL DAVISILLEN has been notified AND OKAYED CANCELLATION.05/10/251952 Emily Jamie RBC 0 SEEN Normal 0-5 [facility] Comment on above: Order Comment: COLLE CTOR TO SPECIFY Result Comment: This specimen has been REJECTED due to Laboratory criteria:Duplicate Order.NIGELESTRELLA DAVISMILDRED has been notified AND OKAYED CANCELLATION.05/10/251952 Emily Jamie Performed By: #### L 400.0001 ####[facility] [address] [place], [address] WBC 0 SEEN Normal 0-5 [facility] Comment on above: Order Comment: COLLE CTOR TO SPECIFY Result Comment: This specimen has been REJECTED due to Laboratory criteria:Duplicate Order.NIGEL LEVY has been notified AND OKAYED CANCELLATION.05/10/251952 Emily Ayala Performed By: #### L 400.0001 ####[facility] [address] [place], [address] BILIRUBIN URINE Normal Negative [facility] Comment on above: Order Comment: COLLE CTOR TO SPECIFY Result Comment: This specimen has been REJECTED due to Laboratory criteria:Duplicate Order.NIGEL LEVY has been notified AND OKAYED CANCELLATION.05/10/251952 Emily Ayala Performed By: #### L 400.0001 ####[facility] [address] [place], [address] Clarity (U) Normal Clear [facility] Comment on above: Order Comment: COLLE CTOR TO SPECIFY Result Comment: This specimen has been REJECTED due to Laboratory criteria:Duplicate Order.NIGEL LEVY has been notified AND OKAYED CANCELLATION.05/10/251952 Emily Ayala Performed By: #### L 400.0001 ####[facility] [address] [place], [address] Color (U) Normal Yellow [facility] Comment on above: Order Comment: COLLE CTOR TO SPECIFY Result Comment: This specimen has been REJECTED due to Laboratory criteria:Duplicate Order.NIGEL LEVY has been notified AND OKAYED CANCELLATION.05/10/251952 Emily Ayala Performed By: #### L 400.0001 ####[facility] [address] [place], [address] GLUCOSE, UR Normal Normal [facility] Comment on above: Order Comment: COLLE CTOR TO SPECIFY Result Comment: This specimen has been REJECTED due to Laboratory criteria:Duplicate Order.NIGEL LEVY has been notified AND OKAYED CANCELLATION.05/10/251952 Emily Ayala Performed By: #### L 400.0001 ####[facility] [address] [place], [address] KETONE UR Normal Negative [facility] Comment on above: Order Comment: COLLE CTOR TO SPECIFY Result Comment: This specimen has been REJECTED due to Laboratory criteria:Duplicate Order.NIGEL DAVISILLEN has been notified AND OKAYED CANCELLATION.05/10/251952 Emily Ayala Performed By: #### L 400.0001 ####[facility] [address] [place], [address] LEUK ESTERASE Normal Negative [facility] Comment on above: Order Comment: COLLE CTOR TO SPECIFY Result Comment: This specimen has been REJECTED due to Laboratory criteria:Duplicate Order.NIGEL DAVISILLEN has been notified AND OKAYED CANCELLATION.05/10/251952 Emily Aayla Performed By: #### L 400.0001 ####[facility] [address] [place], [address] Nitrite Ql (U) Normal Negative [facility] Comment on above: Order Comment: COLLE CTOR TO SPECIFY Result Comment: This specimen has been REJECTED due to Laboratory criteria:Duplicate Order.NIGEL DAVISILLEN has been notified AND OKAYED CANCELLATION.05/10/251952 Emily Ayala Performed By: #### L 400.0001 ####[facility] [address] [facility] [address] OCCULT BLOOD-UR Normal Negative [facility] Comment on above: Order Comment: COLLE CTOR TO SPECIFY Result Comment: This specimen has been REJECTED due to Laboratory criteria:Duplicate Order.NIGEL DAVISILLEN has been notified AND OKAYED CANCELLATION.05/10/251952 Emily Ayala Performed By: #### L 400.0001 ####[facility] [address] [place], [place], [address](969) pH UR Normal 5.0 - 8.0 [facility] Comment on above: Order Comment: COLLE CTOR TO SPECIFY Result Comment: This specimen has been REJECTED due to Laboratory criteria:Duplicate Order.NIGEL LEVY has been notified AND OKAYED CANCELLATION.05/10/251952 Emily Jamie Performed By: #### L 400.0001 ####[facility] [address] [place], [address] PROT DIPSTX Normal Negative [facility] Comment on above: Order Comment: COLLE CTOR TO SPECIFY Result Comment: This specimen has been REJECTED due to Laboratory criteria:Duplicate Order.NIGEL LEVY has been notified AND OKAYED CANCELLATION.05/10/251952 Emily Jamie Performed By: #### L 400.0001 ####[facility] [address] [place], [address] SP.GR. DIPSTX Normal 1.002-1.030 [facility] Comment on above: Order Comment: COLLE CTOR TO SPECIFY Result Comment: This specimen has been REJECTED due to Laboratory criteria:Duplicate Order.NIGEL LEVY has been notified AND OKAYED CANCELLATION.05/10/251952 Emily Jamie Performed By: #### L 400.0001 ####[facility] [address] [place], [address] UR Preservative Normal [facility] Comment on above: Order Comment: COLLE CTOR TO SPECIFY Result Comment: This specimen has been REJECTED due to Laboratory criteria:Duplicate Order.NIGEL LEVY has been notified AND OKAYED CANCELLATION.05/10/251952 Emily Jamie Performed By: #### L 400.0001 ####[facility] [address] [place], [address] UROBILI Normal Normal [facility] Comment on above: Order Comment: COLLE CTOR TO SPECIFY Result Comment: This specimen has been REJECTED due to Laboratory criteria:Duplicate Order.NIGEL LEVY has been notified AND OKAYED CANCELLATION.05/10/251952 Emily Jamie Performed By: #### L 400.0001 ####[facility] [address] [place], [address] Urine clarityOrdered By: Fatimah Araujo on 05-10-2025 Clarity (U) Cloudy Clear [facility] Urine color determinationOrd ered By: Josseline Araujo on 05-10-2025 Color (U) Straw Yellow [facility] Urine cultureOrdered By: Fatimah Araujo on 05-10-2025 Bacteria identified Cx Nom (U) GNR lactose media coordinator Abnormal [facility] Bacteria identified Cx Nom (U) Positive Abnormal [facility] Urine glucose detectionOrder ed By: Josseline Araujo on 05-10-2025 Glucose Ql (U) 50 mg/dl High Normal [facility] Urine leukocyte esterase det ection by dipstickOrdered By: Josseline Araujo on 05-10-2025 Leukocyte esterase Test strip Ql (U) 500 /ul High Negative [facility] Urine pHOrdered By: Josseline mendoza on 05-10-2025 pH (U) 6.5 [pH] 5.0 - 8.0 [facility] Urine sediment bacteria coun t by microscopy (number/high power field)Ordered By: Josseline Araujo on 05-10-2025 Bacteria LM.HPF (Urine sed) [#/Area] 1 /[HPF] None Seen [facility] Urine specific gravity measu rementOrdered By: Josseline Araujo on 05-10-2025 Specific gravity (U) [Rel density] 1.015 1.002-1.030 [facility] Urine urobilinogen measureme ntOrdered By: Josseline Araujo on 05-10-2025 Urobilinogen Ql (U) 1 mg/dl High Normal [facility] White blood cell (WBC) count Ordered By: Josseline Araujo on 05-10-2025 WBC (Bld) [#/Vol] 14.9 10*3/uL High 4.4-11.0 [facility] White blood cell countOrdere d By: Josseline Araujo on 05-10-2025 White blood cell count 25-50 SEEN /hpf 0-5 [facility] Absolute lymphocyte countOrd ered By: Laurence Hinds on 04-17-2025 Lymphocytes Auto (Unsp spec) [#/Vol] 1.60 10*3/uL 0.83-4.51 [facility] Absolute neutrophil countOrd ered By: Laurence Hinds on 04-17-2025 Neutrophils (Bld) [#/Vol] 3.4 10*3/uL 2.0-7.7 [facility] Anion gap in Serum or Plasma Ordered By: Laurence Hinds on 04-17-2025 Anion gap [Moles/Vol] 11 mmol/L 5-15 [facility] Automated lymphocyte count a s percentage of total leukocytesOrdered By: Laurence Hinds on 04-17-2025 Lymphocytes/100 WBC Auto (Unsp spec) 27.9 % 19-41 [facility] BUN/creatinine ratioOrdered By: [facility] Lizet on 04-17-2025 Urea nitrogen/Creatinine [Mass ratio] 27.9 mg/mg High 10-20 [facility] Basophil percentageOrdered B y: Laurence Hinds on 04-17-2025 Basophils/100 WBC (Bld) 0.7 % 0-1 [facility] Bilirubin, totalOrdered By: Laurence Hinds on 04-17-2025 Bilirubin [Mass/Vol] 0.24 mg/dL 0.00-1.30 [facility] CBC W/Diff, Automatedon Absolute Lymph 1.60 X10 3/uL Normal 0.83-4.51 [facility] Comment on above: Performed By: #### L 100.0100, L500.4050 ####[facility] [address] [place], [address] Absolute Neut 3.4 X10 3/uL Normal 2.0-7.7 [facility] Comment on above: Performed By: #### L 100.0100, L500.4050 ####[facility] [address] [place], [address] Basophils/100 WBC (Bld) 0.7 % Normal 0-1 [facility] Comment on above: Performed By: #### L 100.0100, L500.4050 ####[facility] [address] [place], [address] Eosinophils/100 WBC (Bld) 2.6 % Normal 0-5 [facility] Comment on above: Performed By: #### L 100.0100, L500.4050 ####[facility] [address] [place], [address] Erythrocyte distribution width (RBC) [Ratio] 13.9 % Normal 11.6-14.6 [facility] Comment on above: Performed By: #### L 100.0100, L500.4050 ####[facility] [address] [place], [address] Hematocrit (Bld) [Volume fraction] 38.3 % Normal 37-47 [facility] Comment on above: Performed By: #### L 100.0100, L500.4050 ####[facility] [address] [place], [address] Hemoglobin (Bld) [Mass/Vol] 12.0 g/dL Normal 12.0-15.0 [facility] Comment on above: Performed By: #### L 100.0100, L500.4050 ####[facility] [address] [place], [address] IG% 0.200 Normal 0.0-0.9 [facility] Comment on above: Result Comment: IG% - Immature Granulocytes (promyelocytes, myelocytes andmetamyelocytes) > 1% indicates that a LEFT SHIFT is Present. Performed By: #### L 100.0100, L500.4050 ####[facility] [address] [place], [address] Lymphocytes/100 WBC (Bld) 27.9 % Normal 19-41 [facility] Comment on above: Performed By: #### L 100.0100, L500.4050 ####[facility] [address] [place], [address] MCH (RBC) [Entitic mass] 31.4 pg Normal 27.0-32.0 [facility] Comment on above: Performed By: #### L 100.0100, L500.4050 ####[facility] [address] [place], [address] MCHC (RBC) [Mass/Vol] 31.3 g/dL Low 32-36 [facility] Comment on above: Performed By: #### L 100.0100, L500.4050 ####[facility] [address] [place], [address] MCV (RBC) [Entitic vol] 100.3 fL High 81-99 [facility] Comment on above: Performed By: #### L 100.0100, L500.4050 ####[facility] [address] [place], [address] Monocytes/100 WBC (Bld) 10.1 % High 0-10 [facility] Comment on above: Performed By: #### L 100.0100, L500.4050 ####[facility] [address] [place], [address] Neutrophils/100 WBC (Bld) 58.5 % Normal 47-70 [facility] Comment on above: Performed By: #### L 100.0100, L500.4050 ####[facility] [address] [place], [address] Nucleated RBC (Bld) [#/Vol] 0 10*3/uL Normal 0-5 [facility] Comment on above: Performed By: #### L 100.0100, L500.4050 ####[facility] [address] [place], [address] Platelet mean volume (Bld) [Entitic vol] 10.5 fL Normal 6.2-12.0 [facility] Comment on above: Performed By: #### L 100.0100, L500.4050 ####[facility] [address] [place], [address] Platelets (Bld) [#/Vol] 250 10*3/uL Normal 150-450 [facility] Comment on above: Performed By: #### L 100.0100, L500.4050 ####[facility] [address] [place], [address] RBC (Bld) [#/Vol] 3.82 10*6/uL Low 4.2-5.4 [facility] Comment on above: Performed By: #### L 100.0100, L500.4050 ####[facility] [address] [place], [address] RDW SD 50.2 fl High 35.1-43.9 [facility] Comment on above: Performed By: #### L 100.0100, L500.4050 ####[facility] [address] [place], [address] WBC (Bld) [#/Vol] 5.7 10*3/uL Normal 4.4-11.0 [facility] Comment on above: Performed By: #### L 100.0100, L500.4050 ####[facility] [address] [place], [address] Carbon dioxide, total [Moles /volume] in Central venous bloodOrdered By: Laurence Hinds on 04-17-2025 CO2 [Moles/Vol] 21.9 mmol/L 21.0-32.0 [facility] Chloride assayOrdered By: Evelin Hinds on 04-17-2025 Chloride [Moles/Vol] 99 mmol/L 98-108 [facility] Comprehensive Metabolic Prof ilon 04-17-2025 Albumin [Mass/Vol] 4.0 g/dL Normal 3.4-4.8 [facility] Comment on above: Performed By: #### L 100.0100, L500.4050 ####[facility] [address] [place], [address] Albumin/Globulin [Mass ratio] 1.3 {ratio} Normal 0.9-2.4 [facility] Comment on above: Performed By: #### L 100.0100, L500.4050 ####[facility] [address] [place], [address] ALK PHOS 78 U/L Normal 35-104 [facility] Comment on above: Performed By: #### L 100.0100, L500.4050 ####[facility] [address] [place], [address] ALT [Catalytic activity/Vol] 12 U/L Normal <=34 [facility] Comment on above: Performed By: #### L 100.0100, L500.4050 ####[facility] [address] [place], [address] AST [Catalytic activity/Vol] 20 U/L Normal <=31 [facility] Comment on above: Performed By: #### L 100.0100, L500.4050 ####[facility] [address] [place], [address] Bilirubin [Mass/Vol] 0.24 mg/dL Normal 0.00-1.30 [facility] Comment on above: Performed By: #### L 100.0100, L500.4050 ####[facility] [address] [place], [address] BUN/CRE 27.9 RATIO High 10-20 [facility] Comment on above: Performed By: #### L 100.0100, L500.4050 ####[facility] [address] [place], [address] Calcium [Mass/Vol] 10.0 mg/dL Normal 7.6-11.0 [facility] Comment on above: Performed By: #### L 100.0100, L500.4050 ####[facility] [address] [place], [address] Chloride [Moles/Vol] 99 mmol/L Normal 98-108 [facility] Comment on above: Performed By: #### L 100.0100, L500.4050 ####[facility] [address] [place], [address] CO2 [Moles/Vol] 21.9 mmol/L Normal 21.0-32.0 [facility] Comment on above: Performed By: #### L 100.0100, L500.4050 ####[facility] [address] [place], [address] Creatinine [Mass/Vol] 0.79 mg/dL Normal 0.70-1.20 [facility] Comment on above: Performed By: #### L 100.0100, L500.4050 ####[facility] [address] [place], [address] GAP 11 Normal 5-15 [facility] Comment on above: Performed By: #### L 100.0100, L500.4050 ####[facility] [address] [place], [address] GFR/1.73 sq M.predicted among non-blacks MDRD (S/P/Bld) [Vol rate/Area] 71 mL/min/{1.73_m2} Normal >60 [facility] Comment on above: Result Comment: mL/m in/1.73m2 CKD-EPI Creatinine Equation (2020) Performed By: #### L 100.0100, L500.4050 ####[facility] [address] [place], [address] Globulin (S) [Mass/Vol] 3.2 g/dL Normal 2.2-4.2 [facility] Comment on above: Performed By: #### L 100.0100, L500.4050 ####[facility] [address] [place], [address] Glucose [Mass/Vol] 122 mg/dL High 70-99 [facility] Comment on above: Performed By: #### L 100.0100, L500.4050 ####[facility] [address] [place], [address] Potassium [Moles/Vol] 4.4 mmol/L Normal 3.3-5.1 [facility] Comment on above: Performed By: #### L 100.0100, L500.4050 ####[facility] [address] [place], [address] Sodium [Moles/Vol] 131 mmol/L Low 133-145 [facility] Comment on above: Performed By: #### L 100.0100, L500.4050 ####[facility] [address] [place], [address] T PROT 7.2 g/dL Normal 5.9-8.4 [facility] Comment on above: Performed By: #### L 100.0100, L500.4050 ####[facility] [address] [place], [address] Urea nitrogen [Mass/Vol] 22 mg/dL High 4-19 [facility] Comment on above: Performed By: #### L 100.0100, L500.4050 ####[facility] [address] [place], [address] Eosinophil percentageOrdered By: Laurence Hinds on 04-17-2025 Eosinophils/100 WBC (Bld) 2.6 % 0-5 [facility] Erythrocyte distribution wid th ratioOrdered By: Laurence Hinds on 04-17-2025 Erythrocyte distribution width (RBC) [Ratio] 13.9 % 11.6-14.6 [facility] Erythrocyte distribution wid th standard deviationOrdered By: Laurence Hinds on 04-17-2025 Erythrocyte distribution width (RBC) [Ratio] 50.2 fl High 35.1-43.9 [facility] Glomerular filtration rate ( GFR) estimation/1.73 sq m using serum, plasma, or whole bOrdered By: Laurence Hinds on 04-17-2025 GFR/1.73 sq M.predicted among non-blacks MDRD (S/P/Bld) [Vol rate/Area] 71 mL/min/{1.73_m2} >60 [facility] Comment on above: mL/min/1.73m2 CKD-EP I Creatinine Equation (2020) Hematocrit Auto (Bld) [Volum e fraction]Ordered By: Laurence Hinds on 04-17-2025 Hematocrit (Bld) [Volume fraction] 38.3 % 37-47 [facility] Hemoglobin measurementOrdere d By: Laurence Hinds on 04-17-2025 Hemoglobin (Bld) [Mass/Vol] 12.0 g/dL 12.0-15.0 [facility] Immature granulocytes/100 WB C Auto (Bld)Ordered By: Laurence Hinds on 04-17-2025 Immature granulocytes/100 WBC (Bld) 0.200 % 0.0-0.9 [facility] Comment on above: IG% - Immature Granu locytes (promyelocytes, myelocytes and metamyelocytes) > 1% indicates that a LEFT SHIFT is Present. Laboratory - Chemistry and C hemistry - challengeOrdered By: Laurence Hinds on 04-17-2025 AST [Catalytic activity/Vol] 20 U/L <32 [facility] MCV (mean corpuscular volume ) determinationOrdered By: Laurence Hinds on 04-17-2025 MCV (RBC) [Entitic vol] 100.3 fL High 81-99 [facility] Mean corpuscular hemoglobin (MCH) determinationOrdered By: Laurence Hinds on 04-17-2025 MCH (RBC) [Entitic mass] 31.4 pg 27.0-32.0 [facility] Mean corpuscular hemoglobin concentration (MCHC) determinationOrdered By: Laurence Hinds on 04-17-2025 MCHC (RBC) [Mass/Vol] 31.3 g/dL Low 32-36 [facility] Mean platelet volume determi nationOrdered By: Laurence Hinds on 04-17-2025 Platelet mean volume (Bld) [Entitic vol] 10.5 fL 6.2-12.0 [facility] Monocyte percentageOrdered B y: Laurence Hinds on 04-17-2025 Monocytes/100 WBC (Bld) 10.1 % High 0-10 [facility] Neurology Visit Reporton Neurology Visit Report Normal Wo [facility] Neutrophil percentageOrdered By: Laurence Hinds on 04-17-2025 Neutrophils/100 WBC (Bld) 58.5 % 47-70 [facility] Nucleated red blood cell per centageOrdered By: Laurence Hinds on 04-17-2025 Nucleated RBC/100 WBC (Bld) [Ratio] 0 % 0-5 [facility] Platelet countOrdered By: Evelin Hinds on 04-17-2025 Platelets (Bld) [#/Vol] 250 10*3/uL 150-450 [facility] Potassium measurement (mass/ volume)Ordered By: Laurence Hinds on 04-17-2025 Potassium (Unsp spec) [Mass/Vol] 4.4 mmol/L 3.3-5.1 [facility] RBC Auto (Bld) [#/Vol]Ordere d By: Laurence Hinds on 04-17-2025 RBC (Bld) [#/Vol] 3.82 10*6/uL Low 4.2-5.4 [facility] Serum creatinine measurement (mass/volume)Ordered By: Laurence Hinds on 04-17-2025 Creatinine [Mass/Vol] 0.79 mg/dL 0.70-1.20 [facility] Serum globulin measurementOr dered By: Laurence Hinds on 04-17-2025 Globulin (S) [Mass/Vol] 3.2 g/dL 2.2-4.2 [facility] Serum glucose measurement (m ass/volume)Ordered By: Laurence Hinds on 04-17-2025 Glucose [Mass/Vol] 122 mg/dL High 70-99 [facility] Serum or plasma alanine meza otransferase (ALT) measurementOrdered By: Laurence Hinds on 04-17-2025 ALT [Catalytic activity/Vol] 12 U/L <35 [facility] Serum or plasma albumin rhonda urement (mass/volume)Ordered By: Laurence Hinds on 04-17-2025 Albumin [Mass/Vol] 4.0 g/dL 3.4-4.8 [facility] Serum or plasma albumin/glob ulin mass ratioOrdered By: Laurence Hinds on 04-17-2025 Albumin/Globulin [Mass ratio] 1.3 {ratio} 0.9-2.4 [facility] Serum or plasma alkaline yosvany sphatase measurementOrdered By: Laurence Hinds on 04-17-2025 ALP [Catalytic activity/Vol] 78 U/L 35-104 [facility] Serum or plasma calcium rhonda urement (mass/volume)Ordered By: Laurence Hinds on 04-17-2025 Calcium [Mass/Vol] 10.0 mg/dL 7.6-11.0 [facility] Serum or plasma urea nitroge n measurement (mass/volume)Ordered By: Laurence Hinds on 04-17-2025 Urea nitrogen [Mass/Vol] 22 mg/dL High 4-19 [facility] Sodium levelOrdered By: Lesa Hinds on 04-17-2025 Sodium [Moles/Vol] 131 mmol/L Low 133-145 [facility] Total proteinOrdered By: Sergio Hinds on 04-17-2025 Protein [Mass/Vol] 7.2 g/dL 5.9-8.4 [facility] White blood cell (WBC) count Ordered By: Laurence Hinds on 04-17-2025 WBC (Bld) [#/Vol] 5.7 10*3/uL 4.4-11.0 [facility] Absolute lymphocyte countOrd ered By: Laurence Hinds on 01-19-2025 Lymphocytes Auto (Unsp spec) [#/Vol] 1.63 10*3/uL 0.83-4.51 [facility] Absolute neutrophil countOrd ered By: Laurence Hinds on 01-19-2025 Neutrophils (Bld) [#/Vol] 4.3 10*3/uL 2.0-7.7 [facility] Anion gap in Serum or Plasma Ordered By: Laurence Hinds on 01-19-2025 Anion gap [Moles/Vol] 11 mmol/L 5-15 [facility] Automated lymphocyte count a s percentage of total leukocytesOrdered By: Laurence Hinds on 01-19-2025 Lymphocytes/100 WBC Auto (Unsp spec) 23.7 % 19-41 [facility] BUN/creatinine ratioOrdered By: Laurence Hinds on 01-19-2025 Urea nitrogen/Creatinine [Mass ratio] 23.5 mg/mg High 10-20 [facility] Basophil percentageOrdered B y: Laurence Hinds on 01-19-2025 Basophils/100 WBC (Bld) 0.4 % 0-1 [facility] Bilirubin, totalOrdered By: Laurence Hinds on 01-19-2025 Bilirubin [Mass/Vol] 0.35 mg/dL 0.00-1.30 [facility] CBC W/Diff, Automatedon Absolute Lymph 1.63 X10 3/uL Normal 0.83-4.51 [facility] Comment on above: Performed By: #### L 500.4050, L100.0100 ####[facility] [address] [facility] [place], [address] Absolute Neut 4.3 X10 3/uL Normal 2.0-7.7 [facility] Comment on above: Performed By: #### L 500.4050, L100.0100 ####[facility] [address] [place], [address] Basophils/100 WBC (Bld) 0.4 % Normal 0-1 [facility] Comment on above: Performed By: #### L 500.4050, L100.0100 ####[facility] [address] [place], [address] Eosinophils/100 WBC (Bld) 1.7 % Normal 0-5 [facility] Comment on above: Performed By: #### L 500.4050, L100.0100 ####[facility] [address] [place], [address] Erythrocyte distribution width (RBC) [Ratio] 13.7 % Normal 11.6-14.6 [facility] Comment on above: Performed By: #### L 500.4050, L100.0100 ####[facility] [address] [place], [address] Hematocrit (Bld) [Volume fraction] 38.7 % Normal 37-47 [facility] Comment on above: Performed By: #### L 500.4050, L100.0100 ####[facility] [address] [place], [address] Hemoglobin (Bld) [Mass/Vol] 12.0 g/dL Normal 12.0-15.0 [facility] Comment on above: Performed By: #### L 500.4050, L100.0100 ####[facility] [address] [place], [address] IG% 0.400 Normal 0.0-0.9 [facility] Comment on above: Result Comment: IG% - Immature Granulocytes (promyelocytes, myelocytes andmetamyelocytes) > 1% indicates that a LEFT SHIFT is Present. Performed By: #### L 500.4050, L100.0100 ####[facility] [address] [place], [address] Lymphocytes/100 WBC (Bld) 23.7 % Normal 19-41 [facility] Comment on above: Performed By: #### L 500.4050, L100.0100 ####[facility] [address] [place], [address] MCH (RBC) [Entitic mass] 30.9 pg Normal 27.0-32.0 [facility] Comment on above: Performed By: #### L 500.4050, L100.0100 ####[facility] [address] [place], [address] MCHC (RBC) [Mass/Vol] 31.0 g/dL Low 32-36 [facility] Comment on above: Performed By: #### L 500.4050, L100.0100 ####[facility] [address] [place], [address] MCV (RBC) [Entitic vol] 99.7 fL High 81-99 [facility] Comment on above: Performed By: #### L 500.4050, L100.0100 ####[facility] [address] [place], [address] Monocytes/100 WBC (Bld) 10.8 % High 0-10 [facility] Comment on above: Performed By: #### L 500.4050, L100.0100 ####[facility] [address] [place], [address] Neutrophils/100 WBC (Bld) 63.0 % Normal 47-70 [facility] Comment on above: Performed By: #### L 500.4050, L100.0100 ####[facility] [address] [place], [address] Nucleated RBC (Bld) [#/Vol] 0 10*3/uL Normal 0-5 [facility] Comment on above: Performed By: #### L 500.4050, L100.0100 ####[facility] [address] [place], [address] Platelet mean volume (Bld) [Entitic vol] 10.5 fL Normal 6.2-12.0 [facility] Comment on above: Performed By: #### L 500.4050, L100.0100 ####[facility] [address] [place], [address] Platelets (Bld) [#/Vol] 294 10*3/uL Normal 150-450 [facility] Comment on above: Performed By: #### L 500.4050, L100.0100 ####[facility] [address] [place], [address] RBC (Bld) [#/Vol] 3.88 10*6/uL Low 4.2-5.4 [facility] Comment on above: Performed By: #### L 500.4050, L100.0100 ####[facility] [address] [place], [address] RDW SD 49.4 fl High 35.1-43.9 [facility] Comment on above: Performed By: #### L 500.4050, L100.0100 ####[facility] [address] [place], [address] WBC (Bld) [#/Vol] 6.9 10*3/uL Normal 4.4-11.0 [facility] Comment on above: Performed By: #### L 500.4050, L100.0100 ####[facility] [address] [place], [address] Carbon dioxide, total [Moles /volume] in Central venous bloodOrdered By: Laurence Hinds on 01-19-2025 CO2 [Moles/Vol] 23.6 mmol/L 21.0-32.0 [facility] Chloride assayOrdered By: Evelin Hinds on 01-19-2025 Chloride [Moles/Vol] 96 mmol/L Low 98-108 [facility] Comprehensive Metabolic Prof ilon 01-19-2025 Albumin [Mass/Vol] 4.1 g/dL Normal 3.4-4.8 [facility] Comment on above: Performed By: #### L 500.4050, L100.0100 ####[facility] [address] [place], [address] Albumin/Globulin [Mass ratio] 1.3 {ratio} Normal 0.9-2.4 [facility] Comment on above: Performed By: #### L 500.4050, L100.0100 ####[facility] [address] [place], [address] ALK PHOS 90 U/L Normal 35-104 [facility] Comment on above: Performed By: #### L 500.4050, L100.0100 ####[facility] [address] [place], [address] ALT [Catalytic activity/Vol] 10 U/L Normal <=34 [facility] Comment on above: Performed By: #### L 500.4050, L100.0100 ####[facility] [address] [place], [address] AST [Catalytic activity/Vol] 21 U/L Normal <=31 [facility] Comment on above: Performed By: #### L 500.4050, L100.0100 ####[facility] [address] [place], [address] Bilirubin [Mass/Vol] 0.35 mg/dL Normal 0.00-1.30 [facility] Comment on above: Performed By: #### L 500.4050, L100.0100 ####[facility] [address] [place], [address] BUN/CRE 23.5 RATIO High 10-20 [facility] Comment on above: Performed By: #### L 500.4050, L100.0100 ####[facility] [address] [place], [address] Calcium [Mass/Vol] 10.0 mg/dL Normal 7.6-11.0 [facility] Comment on above: Performed By: #### L 500.4050, L100.0100 ####[facility] [address] [place], [address] Chloride [Moles/Vol] 96 mmol/L Low 98-108 [facility] Comment on above: Performed By: #### L 500.4050, L100.0100 ####[facility] [address] [place], [address] CO2 [Moles/Vol] 23.6 mmol/L Normal 21.0-32.0 [facility] Comment on above: Performed By: #### L 500.4050, L100.0100 ####[facility] [address] [place], [address] Creatinine [Mass/Vol] 0.76 mg/dL Normal 0.70-1.20 [facility] Comment on above: Performed By: #### L 500.4050, L100.0100 ####[facility] [address] [place], [address] GAP 11 Normal 5-15 [facility] Comment on above: Performed By: #### L 500.4050, L100.0100 ####[facility] [address] [place], [address] GFR/1.73 sq M.predicted among non-blacks MDRD (S/P/Bld) [Vol rate/Area] 75 mL/min/{1.73_m2} Normal >60 [facility] Comment on above: Result Comment: mL/m in/1.73m2 CKD-EPI Creatinine Equation (2020) Performed By: #### L 500.4050, L100.0100 ####[facility] [address] [place], [address] Globulin (S) [Mass/Vol] 3.1 g/dL Normal 2.2-4.2 [facility] Comment on above: Performed By: #### L 500.4050, L100.0100 ####[facility] [address] [place], [address] Glucose [Mass/Vol] 110 mg/dL High 70-99 [facility] Comment on above: Performed By: #### L 500.4050, L100.0100 ####[facility] [address] [place], [address] Potassium [Moles/Vol] 4.2 mmol/L Normal 3.3-5.1 [facility] Comment on above: Performed By: #### L 500.4050, L100.0100 ####[facility] [address] [place], [address] Sodium [Moles/Vol] 131 mmol/L Low 133-145 [facility] Comment on above: Performed By: #### L 500.4050, L100.0100 ####[facility] [address] [place], [address] T PROT 7.2 g/dL Normal 5.9-8.4 [facility] Comment on above: Performed By: #### L 500.4050, L100.0100 ####[facility] [address] [place], [address] Urea nitrogen [Mass/Vol] 18 mg/dL Normal 4-19 [facility] Comment on above: Performed By: #### L 500.4050, L100.0100 ####[facility] [address] [place], [address] Eosinophil percentageOrdered By: Laurence Hinds on 01-19-2025 Eosinophils/100 WBC (Bld) 1.7 % 0-5 [facility] Erythrocyte distribution wid th ratioOrdered By: Laurence Hinds on 01-19-2025 Erythrocyte distribution width (RBC) [Ratio] 13.7 % 11.6-14.6 [facility] Erythrocyte distribution wid th standard deviationOrdered By: Laurence Hinds on 01-19-2025 Erythrocyte distribution width (RBC) [Entitic vol] 49.4 fL High 35.1-43.9 [facility] Erythrocyte distribution width (RBC) [Ratio] 49.4 fl High 35.1-43.9 [facility] GFR/1.73 sq M.predicted ortiz g non-blacks MDRD (S/P/Bld) [Vol rate/Area]Ordered By: Laurence Hinds on 01-19-2025 Estimated GFR (MDRD) Non-Af Amer 75 >60 [facility] Comment on above: mL/min/1.73m2 CKD-EP I Creatinine Equation (2020) Glomerular filtration rate ( GFR) estimation/1.73 sq m using serum, plasma, or whole bOrdered By: Laurence Hinds on 01-19-2025 GFR/1.73 sq M.predicted among non-blacks MDRD (S/P/Bld) [Vol rate/Area] 75 mL/min/{1.73_m2} >60 [facility] Comment on above: mL/min/1.73m2 CKD-EP I Creatinine Equation (2020) Hematocrit Auto (Bld) [Volum e fraction]Ordered By: Laurence Hinds on 01-19-2025 Hematocrit (Bld) [Volume fraction] 38.7 % 37-47 [facility] Hemoglobin measurementOrdere d By: Laurence Hinds on 01-19-2025 Hemoglobin (Bld) [Mass/Vol] 12.0 g/dL 12.0-15.0 [facility] Immature granulocytes/100 WB C Auto (Bld)Ordered By: Laurence Hinds on 01-19-2025 Immature granulocytes/100 WBC (Bld) 0.400 % 0.0-0.9 [facility] Comment on above: IG% - Immature Granu locytes (promyelocytes, myelocytes and metamyelocytes) > 1% indicates that a LEFT SHIFT is Present. Laboratory - Chemistry and C hemistry - challengeOrdered By: Laurence Hinds on 01-19-2025 AST [Catalytic activity/Vol] 21 U/L <32 [facility] Lymphocytes Auto (Unsp spec) [#/Vol]Ordered By: Laurence Hinds on 01-19-2025 Lymphocytes (Bld) [#/Vol] 1.63 10*3/uL 0.83-4.51 [facility] Lymphocytes/100 WBC Auto (Un sp spec)Ordered By: Laurence Hinds on 01-19-2025 Lymphocytes/100 WBC (Bld) 23.7 % 19-41 [facility] MCV (mean corpuscular volume ) determinationOrdered By: Laurence Hinds on 01-19-2025 MCV (RBC) [Entitic vol] 99.7 fL High 81-99 [facility] Mean corpuscular hemoglobin (MCH) determinationOrdered By: Laurence Hinds on 01-19-2025 MCH (RBC) [Entitic mass] 30.9 pg 27.0-32.0 [facility] Mean corpuscular hemoglobin concentration (MCHC) determinationOrdered By: Laurence Hinds on 01-19-2025 MCHC (RBC) [Mass/Vol] 31.0 g/dL Low 32-36 [facility] Mean platelet volume determi nationOrdered By: Laurence Hinds on 01-19-2025 Platelet mean volume (Bld) [Entitic vol] 10.5 fL 6.2-12.0 [facility] Monocyte percentageOrdered B y: Laurence Hinds on 01-19-2025 Monocytes/100 WBC (Bld) 10.8 % High 0-10 [facility] Neutrophil percentageOrdered By: Laurence Hinds on 01-19-2025 Neutrophils/100 WBC (Bld) 63.0 % 47-70 [facility] Nucleated red blood cell per centageOrdered By: Laurence Hinds on 01-19-2025 Nucleated RBC/100 WBC (Bld) [Ratio] 0 % 0-5 [facility] Platelet countOrdered By: Evelin Hinds on 01-19-2025 Platelets (Bld) [#/Vol] 294 10*3/uL 150-450 [facility] Potassium (Unsp spec) [Mass/ Vol]Ordered By: Laurence Hinds on 01-19-2025 Potassium [Moles/Vol] 4.2 mmol/L 3.3-5.1 [facility] Potassium measurement (mass/ volume)Ordered By: Laurence Hinds on 01-19-2025 Potassium (Unsp spec) [Mass/Vol] 4.2 mmol/L 3.3-5.1 [facility] RBC Auto (Bld) [#/Vol]Ordere d By: Laurence Hinds on 01-19-2025 RBC (Bld) [#/Vol] 3.88 10*6/uL Low 4.2-5.4 [facility] Serum creatinine measurement (mass/volume)Ordered By: Laurence Hinds on 01-19-2025 Creatinine [Mass/Vol] 0.76 mg/dL 0.70-1.20 [facility] Serum globulin measurementOr dered By: Laurence Hinds on 01-19-2025 Globulin (S) [Mass/Vol] 3.1 g/dL 2.2-4.2 [facility] Serum glucose measurement (m ass/volume)Ordered By: Laurence Hinds on 01-19-2025 Glucose [Mass/Vol] 110 mg/dL High 70-99 [facility] Serum or plasma alanine meza otransferase (ALT) measurementOrdered By: Laurence Hinds on 01-19-2025 ALT [Catalytic activity/Vol] 10 U/L <35 [facility] Serum or plasma albumin rhonda urement (mass/volume)Ordered By: Laurence Hinds on 01-19-2025 Albumin [Mass/Vol] 4.1 g/dL 3.4-4.8 [facility] Serum or plasma albumin/glob ulin mass ratioOrdered By: Laurence Hinds on 01-19-2025 Albumin/Globulin [Mass ratio] 1.3 {ratio} 0.9-2.4 [facility] Serum or plasma alkaline yosvany sphatase measurementOrdered By: Laurence Hinds on 01-19-2025 ALP [Catalytic activity/Vol] 90 U/L 35-104 [facility] Serum or plasma calcium rhonda urement (mass/volume)Ordered By: Laurence Hinds on 01-19-2025 Calcium [Mass/Vol] 10.0 mg/dL 7.6-11.0 [facility] Serum or plasma urea nitroge n measurement (mass/volume)Ordered By: Laurence Hinds on 01-19-2025 Urea nitrogen [Mass/Vol] 18 mg/dL 4-19 [facility] Sodium levelOrdered By: Lesa Hinds on 01-19-2025 Sodium [Moles/Vol] 131 mmol/L Low 133-145 [facility] Total proteinOrdered By: Sergio Hinds on 01-19-2025 Protein [Mass/Vol] 7.2 g/dL 5.9-8.4 [facility] White blood cell (WBC) count Ordered By: Laurence Lizet on 01-19-2025 WBC (Bld) [#/Vol] 6.9 10*3/uL 4.4-11.0 [facility] CNOVon 12-01-2024 CNOV Office Visit (PODIWS ) YANN ADAIR ([id number]) 1935 F Date Time Provider Department 12/01/24 1:40 PM ANGELINA FLEMING PODIWS During your visit today, we recorded [...] or sore from your shoes, do not "pop" it. Apply a bandage and wear a different pair of shoes. Take Care of Your Toenails Cut toenails after bathing, when they are soft. Cut toenails straight across and smooth with a nail file. Avoid cutting into the corners of toes. Do not cut cuticles. If you have neuropathy (or decreased sensation in your feet) a general assignment reporter should always cut your toenails. Be Careful [...] your shoes are too tight. Perform the "footwear test" described below. Footwear Test Use this simple [...] Go to your health care provider or general assignment reporter to treat these conditions. Angelina Fleming 12/01/2024 1:47 PM Signed Last saw pcp: [...] is warm (more content not included)... Normal [facility] CNOVon 11-27-2024 CNOV Office Visit (INTMWS ) YANN ADAIR ([id number]) 1935 F Date Time Provider Department 11/27/24 2:00 PM SANDRA COOMBS INTMWS During your visit today, we recorded the following information about you: Pulse Blood pressure Weight Height 72/minute 110/62 65.9 kg 1.568 m Sandra Coombs APRN.CNP 11/28/2024 11:38 AM Signed Yann Adair is a 89 year old [...] Walters MD as PCP - General Sandra Coombs APRN.CNP as Disc Inspector (Internal Medicine) Retinal specialist- [facility] Dr. Gould-neurologist Dr. Fleming-general assignment reporter Dr. Hinds-city planning teacher Medical/Family history review Reviewed and updated problem list, medical/surgical/family /social history, medications, and allergies. Opioid use review [...] 110/62 Pulse 72 Ht 156.8 cm (5' 1.75") Wt 65.9 kg (145 lb 4.5 oz) [...] 110/62 Pulse 72 Ht 156.8 cm (5' 1.75") Wt 65.9 kg (145 lb 4.5 oz) [...] YR, HIGH DOSE, TRIVALENT (FLUZONE HIGH-DOSE) - Swoopo-Talisma COVID-19 VACCINE AGE 12+ YR (COMIRNATY) Sandra Coombs APRN.Sandra Orourke, RO.JAIME 11/27/2024 2:13 PM Addendum Screening schedule The [...] 2. H (more content not included)... Normal [facility] Basic metabolic 2000 panelon 11-22-2024 Anion gap [Moles/Vol] 9 mmol/L Normal 8-15 [facility] Comment on above: Order Comment: Speci men Type: BLOOD SPECIMENOrdering Facility: [facility] Address: [address] [place] [address] Performed By: #### 2 4331-1, 63318-1 ####[facility] LABCLIA [id number] [place] [address] [place] Calcium [Mass/Vol] 10.3 mg/dL High 8.5-10.2 [facility] Comment on above: Order Comment: Speci men Type: BLOOD SPECIMENOrdering Facility: [facility] Address: [address] [place] [address] Performed By: #### 2 4331-, 54684-6 ####[facility] LABCLIA [id number] [place] [address] [place] Chloride [Moles/Vol] 99 mmol/L Normal 98-107 [facility] Comment on above: Order Comment: Speci men Type: BLOOD SPECIMENOrdering Facility: [facility] Address: [address] [place] [address] Performed By: #### 2 433-1, 93003-5 ####[facility] LABCLIA [id number] [place] [id number] [place] CO2 [Moles/Vol] 26 mmol/L Normal 22-30 [facility] Comment on above: Order Comment: Speci men Type: BLOOD SPECIMENOrdering Facility: [facility] Address: [address] [place] [address] Performed By: #### 2 433-1, 23292-3 ####[facility] LABCLIA [id number] [place] [address] [place] Creatinine [Mass/Vol] 0.78 mg/dL Normal 0.58-0.96 [facility] Comment on above: Order Comment: Maria Luisa esquivel Type: BLOOD SPECIMENOrdering Facility: [facility] Address: [address] [place] [address] Performed By: #### 2 4331-1, 65695-2 ####[facility] [id number] [place] [address] [place] Creatinine and Glomerular filtration rate.predicted panel (S/P/Bld) 73 mL/min/1.73m??? Normal >=60 [facility] Comment on above: Order Comment: Maria Luisa esquivel Type: BLOOD SPECIMENOrdering Facility: [facility] Address: [address] [place] [address] Result Comment: Zoila mated Glomerular Filtration Rate [...] reflect actual GFR. Performed By: #### 2 4331-1, 93445-4 ####[facility] LABIA [id number] [place] [address] [place] Glucose [Mass/Vol] 107 mg/dL High 74-99 [facility] Comment on above: Order Comment: Maria Luisa esquivel Type: BLOOD SPECIMENOrdering Facility: [facility] Address: [address] [place] [address] Result Comment: The [place] Diabetes Association (ADA) provides guidance for [...] Standards of Medical Care in Diabetes 2016, [place] Diabetes Association. Diabetes Care. 2016.39(Suppl 1). Performed By: #### 2 4331-1, 83804-2 ####[facility] LABCLIA [id number] [place] [address] [place] Potassium [Moles/Vol] 4.6 mmol/L Normal 3.7-5.1 [facility] Comment on above: Order Comment: Maria Luisa esquivel Type: BLOOD SPECIMENOrdering Facility: [facility] Address: [address] [place] [address] Performed By: #### 2 4331-1, 73091-1 ####[facility] LABCLIA [id number] [place] [address] [place] Sodium [Moles/Vol] 134 mmol/L Low 136-144 [facility] Comment on above: Order Comment: Maria Luisa esquivel Type: BLOOD SPECIMENOrdering Facility: [facility] Address: [address] [place] [address] Performed By: #### 2 4331-, 50276-2 ####[facility] LABCLIA [id number] [place] [address] [place] Urea nitrogen [Mass/Vol] 18 mg/dL Normal 7-21 [facility] Comment on above: Order Comment: Maria Luisa esquivel Type: BLOOD SPECIMENOrdering Facility: [facility] Address: [address] [place] [place] [address] Performed By: #### 2 4331-1, 81560-1 ####[facility] LABCLIA [id number] [place] [id number] [place] HbA1c (Bld)on 11-22-2024 Average glucose Estimated from glycated hemoglobin (Bld) [Mass/Vol] 105 mg/dL Normal [facility] Comment on above: Order Comment: Kelleni men Type: BLOOD SPECIMENOrdering Facility: [facility] Address: [address] [place] [address] Result Comment: eAG: (Estimated average glucose) is a calculated value from HgbA1c and is consumer sales representative of the average blood glucose level in the last 2-3 month period. Performed By: #### 5 5454-3 ####[facility] LABCLIA [id number] [place] [address] [place] HbA1c (Bld) [Mass fraction] 5.3 % Normal 4.3-5.6 [facility] Comment on above: Order Comment: Maria Luisa men Type: BLOOD SPECIMENOrdering Facility: [facility] Address: [address] [place] [address] Result Comment: [place] Diabetes Association guidelines indicate that patients with HgbA1c in the range 5.7-6.4% are at increased risk for development of diabetes, and intervention by lifestyle modification may be beneficial. HgbA1c greater or equal to 6.5% is considered diagnostic of diabetes. Performed By: #### 5 5454-3 ####[facility] LABCLIA [id number] [place] [address] [place] Lipid 1996 panelon 5 Cholesterol [Mass/Vol] 132 mg/dL Normal <200 [facility] Comment on above: Order Comment: Maria Luisa men Type: BLOOD SPECIMENOrdering Facility: [facility] Address: [address] [place] [place] [address] Result Comment: <200 mg/dL, Desirable 200-239 mg/dL, Borderline high >239 mg/dL, High Performed By: #### 2 4331-1, 02340-8 ####[facility] LABIA [id number] [address] [place] Cholesterol in HDL [Mass/Vol] 48 mg/dL Normal >39 [facility] Comment on above: Order Comment: Kelleni men Type: BLOOD SPECIMENOrdering Facility: [facility] Address: [address] [place] [address] Result Comment: 40-5 9 mg/dL, Acceptable >59 mg/dL, High: Negative risk factor for coronary heart disease <40 mg/dL, Low: Positive risk factor for coronary heart disease Performed By: #### 2 4331-1, 51788-6 ####[facility] LABCLIA [id number] [place] [address] [place] Cholesterol in LDL [Mass/Vol] 69 mg/dL Normal <100 [facility] Comment on above: Order Comment: Speci men Type: BLOOD SPECIMENOrdering Facility: [facility] Address: [address] [place] [address] Result Comment: <100 mg/dL, Optimal 100-129 mg/dL, Near optimal/above optimal 130-159 mg/dL, Borderline high 160-189 mg/dL, High >189 mg/dL, Very high Secondary prevention optimal LDL Cholesterol levels are recommended to be < 70 mg/dL Performed By: #### 2 4331-1, 82208-2 ####[facility] LABCLIA [id number] [place] [address] [place] Cholesterol in LDL/Cholesterol in HDL [Mass ratio] 1.44 {ratio} Normal <2.54 [facility] Comment on above: Order Comment: Speci men Type: BLOOD SPECIMENOrdering Facility: [facility] Address: [address] [place] [address] Result Comment: Abdelrahman day: 1. National Cholesterol Education Program ATP III Guideline At-A-Glance Quick Desk Reference: National Heart, Lung, and Blood Crawford. National Institutes of Health. 2001: NIH Publication No. 01-3305. 2. An International Atherosclerosis Society position paper: global recommendations for the management of dyslipidemia: executive summary, Atherosclerosis. 2014: 232(2):410-413. Performed By: #### 2 4331-1, 18875-8 ####[facility] LABCLIA [id number] [place] [address] [place] Cholesterol in VLDL [Mass/Vol] 15 mg/dL Normal <30 [facility] Comment on above: Order Comment: Speci men Type: BLOOD SPECIMENOrdering Facility: [facility] Address: [address] [address] Performed By: #### 2 4331-1, 17808-7 ####[facility] LABCLIA [id number] [address] [address] [place] Cholesterol non HDL [Mass/Vol] 84 mg/dL Normal <130 [facility] Comment on above: Order Comment: Speci men Type: BLOOD SPECIMENOrdering Facility: [facility] Address: [address] [place] [address] Result Comment: <130 mg/dL, Optimal 130-159 mg/dL, Near optimal/above optimal 160-189 mg/dL, Borderline high 190-219 mg/dL, High >219 mg/dL, Very high Secondary prevention optimal non HDL Cholesterol levels are recommended to be <100 mg/dL Performed By: #### 2 433-, 06318-3 ####[facility] LABCLIA [id number] [place] [address] [place] Cholesterol.total/Choles terol in HDL [Mass ratio] 2.75 {ratio} Normal <5.10 [facility] Comment on above: Order Comment: Speci men Type: BLOOD SPECIMENOrdering Facility: [facility] Address: [address] [place] [address] Performed By: #### 2 433-, 58794-3 ####[facility] LABCLIA [id number] [place] [id number] [place] FASTING TIME 12 hrs Normal [facility] Comment on above: Order Comment: Speci men Type: BLOOD SPECIMENOrdering Facility: [facility] Address: [address] [place] [address] Performed By: #### 2 4331-1, 58682-2 ####[facility] LABCLIA [id number] [place] [address] [place] Triglyceride [Mass/Vol] 77 mg/dL Normal <150 [facility] Comment on above: Order Comment: Speci men Type: BLOOD SPECIMENOrdering Facility: [facility] Address: [address] [place] [address] Result Comment: <150 mg/dL, Normal 150-199 mg/dL, Borderline high 200-499 mg/dL, High >499 mg/dL, Very high Performed By: #### 2 4331-1, 43891-3 ####[facility] LABCLIA [id number] [address] [place] [address] [place] Absolute neutrophil countOrd ered By: Laurence Hinds on 10-17-2024 Neutrophils (Bld) [#/Vol] 3.7 10*3/uL 2.0-7.7 [facility] Albumin to globulin ratioOrd ered By: Laurence Hinds on 10-17-2024 Albumin/Globulin [Mass ratio] 0.9 {ratio} 0.9-2.4 [facility] Basophil percentageOrdered B y: Laurence Hinds on 10-17-2024 Basophils/100 WBC (Bld) 0.6 % 0-1 [facility] Bilirubin, totalOrdered By: Laurence Hinds on 10-17-2024 Bilirubin [Mass/Vol] 0.50 mg/dL 0.20-1.00 [facility] Comment on above: For patients on eltr ombopag therapy, use of Dimension Mead TBIL is not recommended. Blood urea nitrogen (BUN)/cr eatinine ratioOrdered By: Laurence Hinds on 10-17-2024 Urea nitrogen/Creatinine [Mass ratio] 24.7 mg/mg High 10-20 [facility] CBC W/Diff, Automatedon Absolute Lymph 1.73 X10 3/uL Normal 0.83-4.51 [facility] Comment on above: Performed By: #### L 100.0100, L500.4050 ####[facility] [address] [place], [address] Absolute Neut 3.7 X10 3/uL Normal 2.0-7.7 [facility] Comment on above: Performed By: #### L 100.0100, L500.4050 ####[facility] [address] [place], [address] Basophils/100 WBC (Bld) 0.6 % Normal 0-1 [facility] Comment on above: Performed By: #### L 100.0100, L500.4050 ####[facility] [address] [place], [address] Eosinophils/100 WBC (Bld) 3.0 % Normal 0-5 [facility] Comment on above: Performed By: #### L 100.0100, L500.4050 ####[facility] [address] [place], [address] Erythrocyte distribution width (RBC) [Ratio] 13.6 % Normal 11.6-14.6 [facility] Comment on above: Performed By: #### L 100.0100, L500.4050 ####[facility] [address] [place], [address] Hematocrit (Bld) [Volume fraction] 39.6 % Normal 37-47 [facility] Comment on above: Performed By: #### L 100.0100, L500.4050 ####[facility] [address] [place], [address] Hemoglobin (Bld) [Mass/Vol] 12.0 g/dL Normal 12.0-15.0 [facility] Comment on above: Performed By: #### L 100.0100, L500.4050 ####[facility] [address] [place], [address] IG% 0.300 Normal 0.0-0.9 [facility] Comment on above: Result Comment: IG% - Immature Granulocytes (promyelocytes, myelocytes andmetamyelocytes) > 1% indicates that a LEFT SHIFT is Present. Performed By: #### L 100.0100, L500.4050 ####[facility] [address] [place], [address] Lymphocytes/100 WBC (Bld) 26.0 % Normal 19-41 [facility] Comment on above: Performed By: #### L 100.0100, L500.4050 ####[facility] [address] [place], [address] MCH (RBC) [Entitic mass] 29.9 pg Normal 27.0-32.0 [facility] Comment on above: Performed By: #### L 100.0100, L500.4050 ####[facility] [address] [place], [address] MCHC (RBC) [Mass/Vol] 30.3 g/dL Low 32-36 [facility] Comment on above: Performed By: #### L 100.0100, L500.4050 ####[facility] [address] [place], [address] MCV (RBC) [Entitic vol] 98.8 fL Normal 81-99 [facility] Comment on above: Performed By: #### L 100.0100, L500.4050 ####[facility] [address] [place], [address] Monocytes/100 WBC (Bld) 14.0 % High 0-10 [facility] Comment on above: Performed By: #### L 100.0100, L500.4050 ####[facility] [address] [place], [address] Neutrophils/100 WBC (Bld) 56.1 % Normal 47-70 [facility] Comment on above: Performed By: #### L 100.0100, L500.4050 ####[facility] [address] [place], [address] Nucleated RBC (Bld) [#/Vol] 0 10*3/uL Normal 0-5 [facility] Comment on above: Performed By: #### L 100.0100, L500.4050 ####[facility] [address] [place], [address] Platelet mean volume (Bld) [Entitic vol] 10.3 fL Normal 6.2-12.0 [facility] Comment on above: Performed By: #### L 100.0100, L500.4050 ####[facility] [address] [place], [address] Platelets (Bld) [#/Vol] 316 10*3/uL Normal 150-450 [facility] Comment on above: Performed By: #### L 100.0100, L500.4050 ####[facility] [address] [place], [address] RBC (Bld) [#/Vol] 4.01 10*6/uL Low 4.2-5.4 [facility] Comment on above: Performed By: #### L 100.0100, L500.4050 ####[facility] [address] [place], [address] RDW SD 48.4 fl High 35.1-43.9 [facility] Comment on above: Performed By: #### L 100.0100, L500.4050 ####[facility] [address] [place], [address] WBC (Bld) [#/Vol] 6.7 10*3/uL Normal 4.4-11.0 [facility] Comment on above: Performed By: #### L 100.0100, L500.4050 ####[facility] [address] [place], [address] Carbon dioxide measurementOr dered By: Laurence Hinds on 10-17-2024 CO2 [Moles/Vol] 26.0 mmol/L 21.0-32.0 [facility] Chloride measurementOrdered By: Laurence Hinds on 10-17-2024 Chloride [Moles/Vol] 97 mmol/L Low 98-107 [facility] Comprehensive Metabolic Prof ilon 10-17-2024 Albumin [Mass/Vol] 3.6 g/dL Normal 3.2-5.0 [facility] Comment on above: Performed By: #### L 100.0100, L500.4050 ####[facility] [address] [place], [address] Albumin/Globulin [Mass ratio] 0.9 {ratio} Normal 0.9-2.4 [facility] Comment on above: Performed By: #### L 100.0100, L500.4050 ####[facility] [address] [place], [address] ALK P 90 U/L Normal 45-117 [facility] Comment on above: Performed By: #### L 100.0100, L500.4050 ####[facility] [address] [place], [address] ALT [Catalytic activity/Vol] 19 U/L Normal 13-56 [facility] Comment on above: Performed By: #### L 100.0100, L500.4050 ####[facility] [address] [place], [address] AST [Catalytic activity/Vol] 13 U/L Low 15-37 [facility] Comment on above: Performed By: #### L 100.0100, L500.4050 ####[facility] [address] [place], [address] Bilirubin [Mass/Vol] 0.50 mg/dL Normal 0.20-1.00 [facility] Comment on above: Result Comment: For patients on eltrombopag therapy, use of Dimension Mead TBIL is not recommended. Performed By: #### L 100.0100, L500.4050 ####[facility] [address] [place], [address] BUN/CRE 24.7 RATIO High 10-20 [facility] Comment on above: Performed By: #### L 100.0100, L500.4050 ####[facility] [address] [place], [address] CA,Total 10.1 mg/dL Normal 8.5-10.1 [facility] Comment on above: Performed By: #### L 100.0100, L500.4050 ####[facility] [address] [place], [address] Chloride [Moles/Vol] 97 mmol/L Low 98-107 [facility] Comment on above: Performed By: #### L 100.0100, L500.4050 ####[facility] [address] [place], [address] CO2 [Moles/Vol] 26.0 mmol/L Normal 21.0-32.0 [facility] Comment on above: Performed By: #### L 100.0100, L500.4050 ####[facility] [address] [place], [address] Creatinine [Mass/Vol] 0.77 mg/dL Normal 0.55-1.02 [facility] Comment on above: Result Comment: The validity of the calculated GFR GFRAA in patients over70 years has not been determined. Clinical correlation isessential. Performed By: #### L 100.0100, L500.4050 ####[facility] [address] [place], [address] EST GFR - AA 91 mL/min Normal >60 [facility] Comment on above: Result Comment: Afri can [place] GFR Calc Performed By: #### L 100.0100, L500.4050 ####[facility] [address] [place], [address] GAP 7 Normal 5-15 [facility] Comment on above: Performed By: #### L 100.0100, L500.4050 ####[facility] [address] [place], [address] GFR/1.73 sq M.predicted among non-blacks MDRD (S/P/Bld) [Vol rate/Area] 75 mL/min/{1.73_m2} Normal >60 [facility] Comment on above: Result Comment: Non- GFR Calc Performed By: #### L 100.0100, L500.4050 ####[facility] [address] [place], [address] Globulin (S) [Mass/Vol] 4.2 g/dL Normal 2.2-4.2 [facility] Comment on above: Performed By: #### L 100.0100, L500.4050 ####[facility] [address] [place], [address] Glucose [Mass/Vol] 84 mg/dL Normal 74-106 [facility] Comment on above: Performed By: #### L 100.0100, L500.4050 ####[facility] [address] [place], [address] Potassium [Moles/Vol] 4.2 mmol/L Normal 3.5-5.1 [facility] Comment on above: Performed By: #### L 100.0100, L500.4050 ####[facility] [address] [place], [address] Sodium [Moles/Vol] 130 mmol/L Low 136-145 [facility] Comment on above: Performed By: #### L 100.0100, L500.4050 ####[facility] [address] [place], [address] T PROT 7.8 g/dL Normal 6.4-8.2 [facility] Comment on above: Performed By: #### L 100.0100, L500.4050 ####[facility] [address] [place], [place], [address] Urea nitrogen [Mass/Vol] 19 mg/dL High 7-18 [facility] Comment on above: Performed By: #### L 100.0100, L500.4050 ####[facility] [address] [place], [address] Eosinophil percentageOrdered By: Laurence Hinds on 10-17-2024 Eosinophils/100 WBC (Bld) 3.0 % 0-5 [facility] Erythrocyte distribution wid th ratioOrdered By: Laurence Hinds on 10-17-2024 Erythrocyte distribution width (RBC) [Ratio] 13.6 % 11.6-14.6 [facility] Erythrocyte distribution wid th standard deviationOrdered By: Laurence Hinds on 10-17-2024 Erythrocyte distribution width (RBC) [Entitic vol] 48.4 fL High 35.1-43.9 [facility] Estimated glomerular filtrat ion rate (GFR) AmericanOrdered By: Laurence Hinds on 10-17-2024 Estimated GFR (MDRD) Amer 91 mL/min >60 [facility] Comment on above: GFR Calc Glomerular filtration rate ( GFR) estimationOrdered By: Laurence Hinds on 10-17-2024 Estimated GFR (MDRD) Non-Af Amer 75 mL/min >60 [facility] Comment on above: Non- GFR Calc Glucose measurementOrdered B y: Laurence Hinds on 10-17-2024 Glucose [Mass/Vol] 84 mg/dL 74-106 [facility] Hematocrit Auto (Bld) [Volum e fraction]Ordered By: Laurence Hinds on 10-17-2024 Hematocrit (Bld) [Volume fraction] 39.6 % 37-47 [facility] Hemoglobin measurementOrdere d By: Laurence Hinds on 10-17-2024 Hemoglobin (Bld) [Mass/Vol] 12.0 g/dL 12.0-15.0 [facility] Immature granulocytes/100 WB C Auto (Bld)Ordered By: Laurence Hinds on 10-17-2024 Immature granulocytes/100 WBC (Bld) 0.300 % 0.0-0.9 [facility] Comment on above: IG% - Immature Granu locytes (promyelocytes, myelocytes and metamyelocytes) > 1% indicates that a LEFT SHIFT is Present. Laboratory - Chemistry and C hemistry - challengeOrdered By: Laurence Hinds on 10-17-2024 AST [Catalytic activity/Vol] 13 U/L Low 15-37 [facility] Lymphocytes Auto (Unsp spec) [#/Vol]Ordered By: Laurence Hinds on 10-17-2024 Lymphocytes (Bld) [#/Vol] 1.73 10*3/uL 0.83-4.51 [facility] Lymphocytes/100 WBC Auto (Un sp spec)Ordered By: Laurence Hinds on 10-17-2024 Lymphocytes/100 WBC (Bld) 26.0 % 19-41 [facility] MCV (mean corpuscular volume ) determinationOrdered By: Laurence Hinds on 10-17-2024 MCV (RBC) [Entitic vol] 98.8 fL 81-99 [facility] Mean corpuscular hemoglobin (MCH) determinationOrdered By: Laurence Hinds on 10-17-2024 MCH (RBC) [Entitic mass] 29.9 pg 27.0-32.0 [facility] Mean corpuscular hemoglobin concentration (MCHC) determinationOrdered By: Laurence Hinds on 10-17-2024 MCHC (RBC) [Mass/Vol] 30.3 g/dL Low 32-36 [facility] Mean platelet volume determi nationOrdered By: Laurence Hinds on 10-17-2024 Platelet mean volume (Bld) [Entitic vol] 10.3 fL 6.2-12.0 [facility] Monocyte percentageOrdered B y: Laurence Hinds on 10-17-2024 Monocytes/100 WBC (Bld) 14.0 % High 0-10 [facility] Neutrophil percentageOrdered By: Laurence Hinds on 10-17-2024 Neutrophils/100 WBC (Bld) 56.1 % 47-70 [facility] Nucleated red blood cell per centageOrdered By: Laurence Hinds on 10-17-2024 Nucleated RBC/100 WBC (Bld) [Ratio] 0 % 0-5 [facility] Platelet countOrdered By: Evelin Hinds on 10-17-2024 Platelets (Bld) [#/Vol] 316 10*3/uL 150-450 [facility] Potassium measurementOrdered By: Laurence Hinds on 10-17-2024 Potassium [Moles/Vol] 4.2 mmol/L 3.5-5.1 [facility] RBC Auto (Bld) [#/Vol]Ordere d By: Laurence Hinds on 10-17-2024 RBC (Bld) [#/Vol] 4.01 10*6/uL Low 4.2-5.4 [facility] Serum anion gap measurementO rdered By: Laurence Hinds on 10-17-2024 Anion gap [Moles/Vol] 7 mmol/L 5-15 [facility] Serum globulin measurementOr dered By: Laurence Hinds on 10-17-2024 Globulin (S) [Mass/Vol] 4.2 g/dL 2.2-4.2 [facility] Serum or plasma alanine meza otransferase (ALT) measurementOrdered By: Laurence Hinds on 10-17-2024 ALT [Catalytic activity/Vol] 19 U/L 13-56 [facility] Serum or plasma albumin rhonda urement (mass/volume)Ordered By: Laurence Hinds on 10-17-2024 Albumin [Mass/Vol] 3.6 g/dL 3.2-5.0 [facility] Serum or plasma alkaline yosvany sphatase measurementOrdered By: Laurence Hinds on 10-17-2024 ALP [Catalytic activity/Vol] 90 U/L 45-117 [facility] Serum or plasma calcium rhonda urement (mass/volume)Ordered By: Laurence Hinds on 10-17-2024 Calcium [Mass/Vol] 10.1 mg/dL 8.5-10.1 [facility] Serum or plasma creatinine m easurement (mass/volume)Ordered By: Laurence Hinds on 10-17-2024 Creatinine [Mass/Vol] 0.77 mg/dL 0.55-1.02 [facility] Comment on above: The validity of the calculated GFR & GFRAA in patients over 70 years has not been determined. Clinical correlation is essential. Serum or plasma urea nitroge n measurement (mass/volume)Ordered By: Laurence Hinds on 10-17-2024 Urea nitrogen [Mass/Vol] 19 mg/dL High 7-18 [facility] Sodium levelOrdered By: Lesa Hinds on 10-17-2024 Sodium [Moles/Vol] 130 mmol/L Low 136-145 [facility] Total proteinOrdered By: Sergio Hinds on 10-17-2024 Protein [Mass/Vol] 7.8 g/dL 6.4-8.2 [facility] White blood cell (WBC) count Ordered By: Laurence Hinds on 10-17-2024 WBC (Bld) [#/Vol] 6.7 10*3/uL 4.4-11.0 [facility] HEMOGLOBIN A1C (POC)on 05-25 HbA1c (Bld) [Mass fraction] 5.6 % 4.3 - 5.6 % [facility] Comment on above: Location:[facility], [address] [place] [address], [place], [address] Point of care (POC) Hemoglobin A1c (HGBA1C) [...] specific diabetes management situations: The POC device senior marketing associate provides a normal range of 4.2% to 6.5% for the HGBA1C POC test. However, the [place] [employer] guidelines indicate that patients [...] anemia) that alter red blood cell lifespan. [facility] Absolute lymphocyte countOrd ered By: Laurence Hinds on 01-20-2024 Lymphocytes Auto (Unsp spec) [#/Vol] 1.92 10*3/uL 0.83-4.51 [facility] Automated lymphocyte count a s percentage of total leukocytesOrdered By: Laurence Hinds on 01-20-2024 Lymphocytes/100 WBC Auto (Unsp spec) 27.6 % 19-41 [facility] Basophil percentageOrdered B y: Laurence Hinds on 01-20-2024 Basophils/100 WBC (Bld) 0.6 % 0-1 [facility] Bilirubin [Mass/Vol] 0.30 mg/dL 0.20-1.00 [facility] Comment on above: For patients on eltr ombopag therapy, use of Dimension [employer] TBIL is not recommended. Chloride [Moles/Vol] 101 mmol/L 98-107 [facility] Eosinophils/100 WBC (Bld) 2.2 % 0-5 [facility] Glucose [Mass/Vol] 96 mg/dL 74-106 [facility] Hemoglobin (Bld) [Mass/Vol] 12.2 g/dL 12.0-15.0 [facility] Monocytes/100 WBC (Bld) 12.5 % 0-10 [facility] Neutrophils (Bld) [#/Vol] 4.0 10*3/uL 2.0-7.7 [facility] Neutrophils/100 WBC (Bld) 56.8 % 47-70 [facility] Potassium [Moles/Vol] 4.0 mmol/L 3.5-5.1 [facility] Protein [Mass/Vol] 7.4 g/dL 6.4-8.2 [facility] Sodium [Moles/Vol] 135 mmol/L 136-145 [facility] WBC (Bld) [#/Vol] 7.0 10*3/uL 4.4-11.0 [facility] Determination of erythrocyte mean corpuscular volume (MCV)Ordered By: Laurence Hinds on 01-20-2024 MCV (RBC) [Entitic vol] 100.8 fL 81-99 [facility] Erythrocyte distribution wid th ratioOrdered By: [facility] on 01-20-2024 Erythrocyte distribution width (RBC) [Ratio] 13.2 % 11.6-14.6 [facility] Erythrocyte distribution wid th standard deviationOrdered By: [facility] on 01-20-2024 Erythrocyte distribution width (RBC) [Entitic vol] 48.4 fL 35.1-43.9 [facility] Hematocrit Auto (Bld) [Volum e fraction]Ordered By: [facility] Lizet on 01-20-2024 Hematocrit (Bld) [Volume fraction] 40.0 % 37-47 [facility] Immature granulocytes/100 WB C Auto (Bld)Or[facility]: [facility] 01-[facility]-2024 Immature granulocytes/100 WBC (Bld) 0.300 % 0.0-0.9 [facility] Comment on above: IG% - Immature Granu locytes (promyelocytes, myelocytes and metamyelocytes) > 1% indicates that a LEFT SHIFT is Present. Laboratory - Chemistry and C hemistry - challengeOrdered By: [facility] on 01-20-2024 Albumin/Globulin [Mass ratio] 1.0 {ratio} 0.9-2.4 [facility] ALP [Catalytic activity/Vol] 72 U/L 45-117 [facility] ALT [Catalytic activity/Vol] 22 U/L 13-56 [facility] CO2 [Moles/Vol] 28.0 mmol/L 21.0-32.0 [facility] Globulin (S) [Mass/Vol] 3.7 g/dL 2.2-4.2 [facility] Urea nitrogen/Creatinine [Mass ratio] 28.8 mg/mg 10-20 [facility] Laboratory - Hematology and Cell countsOrdered By: [facility] on 01-20-2024 MCH (RBC) [Entitic mass] 30.7 pg 27.0-32.0 [facility] MCHC (RBC) [Mass/Vol] 30.5 g/dL 32-36 [facility] Nucleated RBC/100 WBC (Bld) [Ratio] 0 % 0-5 [facility] Platelet mean volume (Bld) [Entitic vol] 10.5 fL 6.2-12.0 [facility] Platelets (Bld) [#/Vol] 270 10*3/uL 150-450 [facility] No Panel InformationOrdered By: Laurence Hinds on 01-20-2024 Estimated GFR (MDRD) Amer 83 mL/min >60 [facility] Comment on above: GFR Calc Estimated GFR (MDRD) Non-Af Amer 69 mL/min >60 [facility] Comment on above: Non- GFR Calc RBC Auto (Bld) [#/Vol]Ordere d By: Laurence Hinds on 01-20-2024 RBC (Bld) [#/Vol] 3.97 10*6/uL 4.2-5.4 [facility] Serum or plasma calcium rhonda urement (mass/volume)Ordered By: Laurence Hinds on 01-20-2024 Calcium [Mass/Vol] 9.9 mg/dL 8.5-10.1 [facility] Serum or plasma creatinine m easurement (mass/volume)Ordered By: Laurence Hinds on 01-20-2024 Creatinine [Mass/Vol] 0.83 mg/dL 0.55-1.02 [facility] Comment on above: The validity of the calculated GFR & GFRAA in patients over 70 years has not been determined. Clinical correlation is essential. Serum or plasma urea nitroge n measurement (mass/volume)Ordered By: Laurence Hinds on 01-20-2024 Urea nitrogen [Mass/Vol] 24 mg/dL 7-18 [facility] Thin prep Papanicolaou smear with manual screeningOrdered By: Laurence Hinds on 01-20-2024 Thin prep Papanicolaou smear with manual screening 3.7 g/dL 3.2-5.0 [facility] Thin prep Papanicolaou smear with manual screening 15 U/L 15-37 [facility] Thin prep Papanicolaou smear with manual screening 6 5-15 [facility] Absolute lymphocyte countOrd ered By: Laurence Hinds on 10-14-2023 Lymphocytes Auto (Unsp spec) [#/Vol] 1.79 10*3/uL 0.83-4.51 [facility] Basophil percentageOrdered B y: Laurence Hinds on 10-14-2023 Basophils/100 WBC (Bld) 0.5 % 0-1 [facility] Bilirubin [Mass/Vol] 0.40 mg/dL 0.20-1.00 [facility] Comment on above: For patients on eltr ombopag therapy, use of Dimension [employer] TBIL is not recommended. Chloride [Moles/Vol] 102 mmol/L 98-107 [facility] Eosinophils/100 WBC (Bld) 2.6 % 0-5 [facility] Glucose [Mass/Vol] 94 mg/dL 74-106 [facility] Neutrophils (Bld) [#/Vol] 4.8 10*3/uL 2.0-7.7 [facility] Neutrophils/100 WBC (Bld) 62.2 % 47-70 [facility] Potassium [Moles/Vol] 4.6 mmol/L 3.5-5.1 [facility] Protein [Mass/Vol] 7.6 g/dL 6.4-8.2 [facility] Sodium [Moles/Vol] 137 mmol/L 136-145 [facility] WBC (Bld) [#/Vol] 7.6 10*3/uL 4.4-11.0 [facility] Blood erythrocytes count (nu mber/volume)Ordered By: Laurence Hinds on 10-14-2023 RBC (Bld) [#/Vol] 4.07 10*6/uL 4.2-5.4 [facility] Blood hemoglobin measurement (mass/volume)Ordered By: Laurence Hinds on 10-14-2023 Hemoglobin (Bld) [Mass/Vol] 12.4 g/dL 12.0-15.0 [facility] Blood lymphocytes/100 leukoc ytesOrdered By: Laurence Hinds on 10-14-2023 Lymphocytes/100 WBC (Bld) 23.5 % 19-41 [facility] Blood monocytes/100 leukocyt esOrdered By: Laurence Hinds on 10-14-2023 Monocytes/100 WBC (Bld) 10.9 % 0-10 [facility] Blood platelet mean volumeOr dered By: Laurence Hinds on 10-14-2023 Platelet mean volume (Bld) [Entitic vol] 10.2 fL 6.2-12.0 [facility] Determination of erythrocyte mean corpuscular volume (MCV)Ordered By: Laurence Hinds on 10-14-2023 MCV (RBC) [Entitic vol] 99.5 fL 81-99 [facility] Hematocrit Auto (Bld) [Volum e fraction]Ordered By: Laurenceshelley Hinds on 10-14-2023 Hematocrit (Bld) [Volume fraction] 40.5 % 37-47 [facility] Laboratory - Chemistry and C hemistry - challengeOrdered By: Laurenceshelley Hinds on 10-14-2023 ALP [Catalytic activity/Vol] 74 U/L 45-117 [facility] ALT [Catalytic activity/Vol] 24 U/L 13-56 [facility] CO2 [Moles/Vol] 28.0 mmol/L 21.0-32.0 [facility] Globulin (S) [Mass/Vol] 3.9 g/dL 2.2-4.2 [facility] Urea nitrogen/Creatinine [Mass ratio] 25.9 mg/mg 10-20 [facility] Laboratory - Hematology and Cell countsOrdered By: Laurenceshelley Hinds on 10-14-2023 Erythrocyte distribution width (RBC) [Entitic vol] 51.2 fL 35.1-43.9 [facility] Erythrocyte distribution width (RBC) [Ratio] 14.1 % 11.6-14.6 [facility] Immature granulocytes/100 WBC (Bld) 0.300 % 0.0-0.9 [facility] Comment on above: IG% - Immature Granu locytes (promyelocytes, myelocytes and metamyelocytes) > 1% indicates that a LEFT SHIFT is Present. MCH (RBC) [Entitic mass] 30.5 pg 27.0-32.0 [facility] Nucleated RBC/100 WBC (Bld) [Ratio] 0 % 0-5 [facility] MCHC Auto (RBC) [Mass/Vol]Or dered By: Laurenceshelley Hinds on 10-14-2023 MCHC (RBC) [Mass/Vol] 30.6 g/dL 32-36 [facility] No Panel InformationOrdered By: Laurenceshelley Hinds on 10-14-2023 Estimated GFR (MDRD) Amer 86 mL/min >60 [facility] Comment on above: GFR Calc Estimated GFR (MDRD) Non-Af Amer 71 mL/min >60 [facility] Comment on above: Non- GFR Calc Platelets bldOrdered By: Sergio Hinds on 10-14-2023 Platelets (Bld) [#/Vol] 259 10*3/uL 150-450 [facility] Serum or plasma albumin rhonda urement (mass/volume)Ordered By: Laurence Hinds on 10-14-2023 Albumin [Mass/Vol] 3.7 g/dL 3.2-5.0 [facility] Serum or plasma albumin/glob ulin mass ratioOrdered By: Laurenceshelley Hinds on 10-14-2023 Albumin/Globulin [Mass ratio] 0.9 {ratio} 0.9-2.4 [facility] Serum or plasma calcium rhonda urement (mass/volume)Ordered By: Laurence Hinds on 10-14-2023 Calcium [Mass/Vol] 9.4 mg/dL 8.5-10.1 [facility] Serum or plasma creatinine m easurement (mass/volume)Ordered By: Laurence Hinds on 10-14-2023 Creatinine [Mass/Vol] 0.81 mg/dL 0.55-1.02 [facility] Comment on above: The validity of the calculated GFR & GFRAA in patients over 70 years has not been determined. Clinical correlation is essential. Serum or plasma urea nitroge n measurement (mass/volume)Ordered By: Laurence Hinds on 10-14-2023 Urea nitrogen [Mass/Vol] 21 mg/dL 7-18 [facility] Thin prep Papanicolaou smear with manual screeningOrdered By: Laurence Hinds on 10-14-2023 Thin prep Papanicolaou smear with manual screening 19 U/L 15-37 [facility] Thin prep Papanicolaou smear with manual screening 7 5-15 [facility] Absolute lymphocyte countOrd ered By: Laurence Hinds on 07-16-2023 Lymphocytes Auto (Unsp spec) [#/Vol] 1.94 10*3/uL 0.83-4.51 [facility] Basophil percentageOrdered B y: Laurence Hinds on 07-16-2023 Basophils/100 WBC (Bld) 0.8 % 0-1 [facility] Bilirubin [Mass/Vol] 0.40 mg/dL 0.20-1.00 [facility] Comment on above: For patients on eltr ombopag therapy, use of Dimension [employer] TBIL is not recommended. Chloride [Moles/Vol] 100 mmol/L 98-107 [facility] Eosinophils/100 WBC (Bld) 3.1 % 0-5 [facility] Glucose [Mass/Vol] 97 mg/dL 74-106 [facility] Neutrophils (Bld) [#/Vol] 3.5 10*3/uL 2.0-7.7 [facility] Neutrophils/100 WBC (Bld) 53.4 % 47-70 [facility] Potassium [Moles/Vol] 5.1 mmol/L 3.5-5.1 [facility] Protein [Mass/Vol] 7.9 g/dL 6.4-8.2 [facility] Sodium [Moles/Vol] 133 mmol/L 136-145 [facility] WBC (Bld) [#/Vol] 6.5 10*3/uL 4.4-11.0 [facility] Blood erythrocytes count (nu mber/volume)Ordered By: Laurence Hinds on 07-16-2023 RBC (Bld) [#/Vol] 4.30 10*6/uL 4.2-5.4 [facility] Blood hemoglobin measurement (mass/volume)Ordered By: Laurence Hinds on 07-16-2023 Hemoglobin (Bld) [Mass/Vol] 13.1 g/dL 12.0-15.0 [facility] Blood lymphocytes/100 leukoc ytesOrdered By: Laurence Hinds on 07-16-2023 Lymphocytes/100 WBC (Bld) 30.0 % 19-41 [facility] Blood monocytes/100 leukocyt esOrdered By: Laurence Hinds on 07-16-2023 Monocytes/100 WBC (Bld) 12.2 % 0-10 [facility] Blood platelet mean volumeOr dered By: Laurence Hinds on 07-16-2023 Platelet mean volume (Bld) [Entitic vol] 10.4 fL 6.2-12.0 [facility] Determination of erythrocyte mean corpuscular volume (MCV)Ordered By: Laurence Hinds on 07-16-2023 MCV (RBC) [Entitic vol] 100.0 fL 81-99 [facility] Hematocrit Auto (Bld) [Volum e fraction]Ordered By: Laurence Hinds on 07-16-2023 Hematocrit (Bld) [Volume fraction] 43.0 % 37-47 [facility] Laboratory - Chemistry and C hemistry - challengeOrdered By: Laurence Hinds on 07-16-2023 ALP [Catalytic activity/Vol] 86 U/L 45-117 [facility] ALT [Catalytic activity/Vol] 21 U/L 13-56 [facility] CO2 [Moles/Vol] 29.0 mmol/L 21.0-32.0 [facility] Globulin (S) [Mass/Vol] 4.0 g/dL 2.2-4.2 [facility] Urea nitrogen/Creatinine [Mass ratio] 25.3 mg/mg 10-20 [facility] Laboratory - Hematology and Cell countsOrdered By: Laurenceshelley Hinds on 07-16-2023 Erythrocyte distribution width (RBC) [Entitic vol] 47.9 fL 35.1-43.9 [facility] Erythrocyte distribution width (RBC) [Ratio] 13.0 % 11.6-14.6 [facility] Immature granulocytes/100 WBC (Bld) 0.500 % 0.0-0.9 [facility] Comment on above: IG% - Immature Granu locytes (promyelocytes, myelocytes and metamyelocytes) > 1% indicates that a LEFT SHIFT is Present. MCH (RBC) [Entitic mass] 30.5 pg 27.0-32.0 [facility] Nucleated RBC/100 WBC (Bld) [Ratio] 0 % 0-5 [facility] MCHC Auto (RBC) [Mass/Vol]Or dered By: Laurence Hinds on 07-16-2023 MCHC (RBC) [Mass/Vol] 30.5 g/dL 32-36 [facility] No Panel InformationOrdered By: Laurenceshelley Hinds on 07-16-2023 Estimated GFR (MDRD) Amer 89 mL/min >60 [facility] Comment on above: GFR Calc Estimated GFR (MDRD) Non-Af Amer 73 mL/min >60 [facility] Comment on above: Non- GFR Calc Platelets bldOrdered By: Sergio Hinds on 07-16-2023 Platelets (Bld) [#/Vol] 298 10*3/uL 150-450 [facility] Serum or plasma albumin rhonda urement (mass/volume)Ordered By: Laurence Hinds on 07-16-2023 Albumin [Mass/Vol] 3.9 g/dL 3.2-5.0 [facility] Serum or plasma albumin/glob ulin mass ratioOrdered By: Laurence Hinds on 07-16-2023 Albumin/Globulin [Mass ratio] 1.0 {ratio} 0.9-2.4 [facility] Serum or plasma calcium rhonda urement (mass/volume)Ordered By: Laurence Hinds on 07-16-2023 Calcium [Mass/Vol] 10.1 mg/dL 8.5-10.1 [facility] Serum or plasma creatinine m easurement (mass/volume)Ordered By: Laurence Hinds on 07-16-2023 Creatinine [Mass/Vol] 0.79 mg/dL 0.55-1.02 [facility] Comment on above: The validity of the calculated GFR & GFRAA in patients over 70 years has not been determined. Clinical correlation is essential. Serum or plasma urea nitroge n measurement (mass/volume)Ordered By: Laurence Hinds on 07-16-2023 Urea nitrogen [Mass/Vol] 20 mg/dL 7-18 [facility] Thin prep Papanicolaou smear with manual screeningOrdered By: Laurence Hinds on 07-16-2023 Thin prep Papanicolaou smear with manual screening 16 U/L 15-37 [facility] Thin prep Papanicolaou smear with manual screening 4 5-15 [facility] Albumin Elph [Mass/Vol]Order ed By: Chong Cantu on 06-08-2023 Albumin [Mass/Vol] 4.0 g/dL 2.9-4.4 [facility] Basophil percentageOrdered B y: Chong Cantu on 06-08-2023 Basophil percentage Comment . [facility] Comment on above: No monoclonality det ected.Performed at: - [facility] [id number] [place], [place] [id number] Director: Rodrigo Hawley PhD, Phone: [phone] Interpretation of serum or p lasma protein pattern by immunofixation (narrative resultOrdered By: Chong Cantu on 06-08-2023 Protein Fractions Immunofixation Devendra [Interp] See comment [facility] Comment on above: Result: Not Observed No Panel InformationOrdered By: Chong Cantu on 06-08-2023 Addendum Document Comment . [facility] Comment on above: Protein electrophore sis scan will follow via computer,mail, or lease administration supervisor delivery. Serum [id number] measu rement by electrophoresisOrdered By: Chong Cantu on 06-08-2023 Alpha 1 globulin Elph [Mass/Vol] 0.2 g/dL 0.0-0.4 [facility] Alpha 1 globulin Elph [Mass/Vol] 0.9 g/dL 0.4-1.0 [facility] Serum globulin measurement ( mass/volume)Ordered By: Chong Cantu on 06-08-2023 Globulin (S) [Mass/Vol] 3.1 g/dL 2.2-3.9 [facility] Serum or plasma IgA measurem ent (mass/volume)Ordered By: Chong Cantu on 06-08-2023 IgA [Mass/Vol] 204 mg/dL 64-422 [facility] Serum or plasma IgG measurem ent (mass/volume)Ordered By: Chong Cantu on 06-08-2023 IgG [Mass/Vol] 1225 mg/dL [id number] [facility] Serum or plasma IgM measurem ent (mass/volume)Ordered By: Chong Cantu on 06-08-2023 IgM [Mass/Vol] 120 mg/dL 26-217 [facility] Serum or plasma beta globuli n measurement by electrophoresis (mass/volume)Ordered By: Chong Cantu on 06-08-2023 Beta globulin Elph [Mass/Vol] 0.9 g/dL 0.7-1.3 [facility] Serum or plasma gamma globul in measurement by electrophoresis (mass/volume)Ordered By: Chong Cantu on 06-08-2023 Gamma globulin Elph [Mass/Vol] 1.2 g/dL 0.4-1.8 [facility] Serum or plasma immunoelectr ophoresis interpretation (nominal result)Ordered By: Chong Robmiguel ángel on 06-08-2023 Interpretation IEP [Interp] Comment . [facility] Comment on above: No monoclonality det ected. Thin prep Papanicolaou smear with manual screeningOrdered By: Chong Alondra on 06-08-2023 Thin prep Papanicolaou smear with manual screening 1.3 0.7-1.7 [facility] Total protein bloodOrdered B y: Chong Alondra on 06-08-2023 Protein [Mass/Vol] 7.1 g/dL 6.0-8.5 [facility] UA DIP, URINE (POC)on 2022 BILIRUBIN UA (POCT) Negative Negative [facility] CLARITY UA (POCT) Clear [facility] COLOR UA (POCT) Light yellow [facility] GLUCOSE UA (POCT) Negative Negative mg/dL [facility] HEMOGLOBIN/BLOOD UA (POCT) Small Abnormal Negative [facility] KETONE UA (POCT) Negative Negative mg/dL [facility] LEUKOCYTES UA (POCT) Small Abnormal Negative [facility] NITRITE UA (POCT) Negative Negative [facility] PH UA (POCT) 5.5 4.5 - 8.0 [facility] Protein Ql (U) Negative Negative mg/dL [facility] SPECIFIC GRAVITY UA (POCT) 1.015 1.005 - 1.030 [facility] UROBILINOGEN UA (POCT) 0.2 E.U./dL Radha l E.U./dL [facility] Absolute lymphocyte countOrd ered By: Dr. Hinds on 03-15-2023 Lymphocytes Auto (Unsp spec) [#/Vol] 1.76 10*3/uL 0.83-4.51 [facility] Basophil percentageOrdered B y: Dr. Hinds on 03-15-2023 Basophils/100 WBC (Bld) 0.7 % 0-1 [facility] Bilirubin [Mass/Vol] 0.30 mg/dL 0.20-1.00 [facility] Comment on above: For patients on eltr ombopag therapy, use of [employer] TBIL is not recommended. Chloride [Moles/Vol] 103 mmol/L 98-107 [facility] Eosinophils/100 WBC (Bld) 2.7 % 0-5 [facility] Glucose [Mass/Vol] 91 mg/dL 74-106 [facility] Neutrophils (Bld) [#/Vol] 2.9 10*3/uL 2.0-7.7 [facility] Neutrophils/100 WBC (Bld) 52.8 % 47-70 [facility] Potassium [Moles/Vol] 4.5 mmol/L 3.5-5.1 [facility] Protein [Mass/Vol] 7.2 g/dL 6.4-8.2 [facility] Sodium [Moles/Vol] 135 mmol/L 136-145 [facility] WBC (Bld) [#/Vol] 5.5 10*3/uL 4.4-11.0 [facility] Blood erythrocytes count (nu mber/volume)Ordered By: Dr. Hinds on 03-15-2023 RBC (Bld) [#/Vol] 3.97 10*6/uL 4.2-5.4 [facility] Blood hemoglobin measurement (mass/volume)Ordered By: Dr. Hinds on 03-15-2023 Hemoglobin (Bld) [Mass/Vol] 12.4 g/dL 12.0-15.0 [facility] Blood lymphocytes/100 leukoc ytesOrdered By: Dr. Hinds on 03-15-2023 Lymphocytes/100 WBC (Bld) 32.2 % 19-41 [facility] Blood monocytes/100 leukocyt esOrdered By: Dr. Hinds on 03-15-2023 Monocytes/100 WBC (Bld) 11.4 % 0-10 [facility] Blood platelet mean volumeOr dered By: Dr. Hinds on 03-15-2023 Platelet mean volume (Bld) [Entitic vol] 10.3 fL 6.2-12.0 [facility] Determination of erythrocyte mean corpuscular volume (MCV)Ordered By: Dr. Hinds on 03-15-2023 MCV (RBC) [Entitic vol] 101.0 fL 81-99 [facility] Hematocrit Auto (Bld) [Volum e fraction]Ordered By: Dr. Hinds on 03-15-2023 Hematocrit (Bld) [Volume fraction] 40.1 % 37-47 [facility] Laboratory - Chemistry and C hemistry - challengeOrdered By: Dr. Hinds on 03-15-2023 ALP [Catalytic activity/Vol] 84 U/L 45-117 [facility] ALT [Catalytic activity/Vol] 17 U/L 13-56 [facility] CO2 [Moles/Vol] 27.0 mmol/L 21.0-32.0 [facility] Globulin (S) [Mass/Vol] 3.7 g/dL 2.2-4.2 [facility] Urea nitrogen/Creatinine [Mass ratio] 24.4 mg/mg 10-20 [facility] Laboratory - Hematology and Cell countsOrdered By: Dr. Hinds on 03-15-2023 Erythrocyte distribution width (RBC) [Entitic vol] 49.8 fL 35.1-43.9 [facility] Erythrocyte distribution width (RBC) [Ratio] 13.6 % 11.6-14.6 [facility] Immature granulocytes/100 WBC (Bld) 0.200 % 0.0-0.9 [facility] Comment on above: IG% - Immature Granu locytes (promyelocytes, myelocytes and metamyelocytes) > 1% indicates that a LEFT SHIFT is Present. MCH (RBC) [Entitic mass] 31.2 pg 27.0-32.0 [facility] Nucleated RBC/100 WBC (Bld) [Ratio] 0 % 0-5 [facility] MCHC Auto (RBC) [Mass/Vol]Or dered By: Dr. Hinds on 03-15-2023 MCHC (RBC) [Mass/Vol] 30.9 g/dL 32-36 [facility] No Panel InformationOrdered By: Dr. Hinds on 03-15-2023 Estimated GFR (MDRD) Amer 96 mL/min >60 [facility] Comment on above: GFR Calc Estimated GFR (MDRD) Non-Af Amer 79 mL/min >60 [facility] Comment on above: Non- GFR Calc Platelets bldOrdered By: Dr. Hinds on 03-15-2023 Platelets (Bld) [#/Vol] 235 10*3/uL 150-450 [facility] Serum or plasma albumin rhonda urement (mass/volume)Ordered By: Dr. Hinds on 03-15-2023 Albumin [Mass/Vol] 3.5 g/dL 3.2-5.0 [facility] Serum or plasma albumin/glob ulin mass ratioOrdered By: Dr. Hinds on 03-15-2023 Albumin/Globulin [Mass ratio] 0.9 {ratio} 0.9-2.4 [facility] Serum or plasma calcium rhonda urement (mass/volume)Ordered By: Dr. Hinds on 03-15-2023 Calcium [Mass/Vol] 9.8 mg/dL 8.5-10.1 [facility] Serum or plasma creatinine m easurement (mass/volume)Ordered By: Dr. Hinds on 03-15-2023 Creatinine [Mass/Vol] 0.74 mg/dL 0.55-1.02 [facility] Comment on above: The validity of the calculated GFR & GFRAA in patients over 70 years has not been determined. Clinical correlation is essential. Serum or plasma urea nitroge n measurement (mass/volume)Ordered By: Dr. Hinds on 03-15-2023 Urea nitrogen [Mass/Vol] 18 mg/dL 7-18 [facility] Thin prep Papanicolaou smear with manual screeningOrdered By: Dr. Hinds on 03-15-2023 Thin prep Papanicolaou smear with manual screening 18 U/L 15-37 [facility] Thin prep Papanicolaou smear with manual screening 5 5-15 [facility] UA DIP, URINE (POC)on 2022 BILIRUBIN UA (POCT) Negative Negative [facility] CLARITY UA (POCT) Slightly Cloudy Cl [facility] COLOR UA (POCT) Yellow [facility] GLUCOSE UA (POCT) Negative Negative mg/dL [facility] HEMOGLOBIN/BLOOD UA (POCT) Moderate Abnormal Negative [facility] KETONE UA (POCT) Negative Negative [facility] LEUKOC[facility]TES UA (POCT) Small Abnormal Negative [facility] NITRITE UA (POCT) Negative Negative [facility] PH UA (POCT) 6.5 4.5 - 8.0 [facility] Protein Ql (U) Negative Negative mg/dL [facility] SPECIFIC GRAVITY UA (POCT) 1.015 1.005 - 1.030 [facility] UROBILINOGEN UA (POCT) 0.2 E.U./dL Radha l E.U./dL [facility] No Panel InformationOrdered By: Dr. Cantu on 02-02-2023 Free Lambda Light Chains, Quant 22.0 mg/L 5.7-26.3 [facility] Serum immunoglobulin kappa l ight chains/immunoglobulin lambda light chains mass ratioOrdered By: Dr. Cantu on 02-02-2023 Immunoglobulin light chains.kappa/Immunoglobu yaron light chains.lambda (S) [Mass ratio] 2.25 0.26-1.65 [facility] Comment on above: Performed at: [place] [id number] Director: Rodrigo Hawley PhD, Phone: [phone] Serum or plasma immunoglobul in kappa light chains measurement (mass/volume)Ordered By: Dr. Cantu on 02-02-2023 Immunoglobulin light chains.kappa [Mass/Vol] 49.4 mg/L 3.3-19.4 [facility] Absolute lymphocyte countOrd ered By: Dr. Hinds on 12-24-2022 Lymphocytes Auto (Unsp spec) [#/Vol] 1.80 10*3/uL 0.83-4.51 [facility] Basophil percentageOrdered B y: Dr. Hinds on 12-24-2022 Basophils/100 WBC (Bld) 0.6 % 0-1 [facility] Bilirubin [Mass/Vol] 0.40 mg/dL 0.20-1.00 [facility] Comment on above: For patients on eltr ombopag therapy, use of [employer] TBIL is not recommended. Chloride [Moles/Vol] 100 mmol/L 98-107 [facility] Eosinophils/100 WBC (Bld) 1.9 % 0-5 [facility] Glucose [Mass/Vol] 91 mg/dL 74-106 [facility] Neutrophils (Bld) [#/Vol] 3.6 10*3/uL 2.0-7.7 [facility] Neutrophils/100 WBC (Bld) 57.1 % 47-70 [facility] Potassium [Moles/Vol] 4.3 mmol/L 3.5-5.1 [facility] Protein [Mass/Vol] 7.5 g/dL 6.4-8.2 [facility] Sodium [Moles/Vol] 135 mmol/L 136-145 [facility] WBC (Bld) [#/Vol] 6.3 10*3/uL 4.4-11.0 [facility] Blood erythrocytes count (nu mber/volume)Ordered By: Dr. Hinds on 12-24-2022 RBC (Bld) [#/Vol] 4.12 10*6/uL 4.2-5.4 [facility] Blood hemoglobin measurement (mass/volume)Ordered By: Dr. Hinds on 12-24-2022 Hemoglobin (Bld) [Mass/Vol] 12.8 g/dL 12.0-15.0 [facility] Blood lymphocytes/100 leukoc ytesOrdered By: Dr. Hinds on 12-24-2022 Lymphocytes/100 WBC (Bld) 28.4 % 19-41 [facility] Blood monocytes/100 leukocyt esOrdered By: Dr. Hinds on 12-24-2022 Monocytes/100 WBC (Bld) 11.8 % 0-10 [facility] Blood platelet mean volumeOr dered By: Dr. Hinds on 12-24-2022 Platelet mean volume (Bld) [Entitic vol] 10.6 fL 6.2-12.0 [facility] Determination of erythrocyte mean corpuscular volume (MCV)Ordered By: Dr. Hinds on 12-24-2022 MCV (RBC) [Entitic vol] 100.5 fL 81-99 [facility] Hematocrit Auto (Bld) [Volum e fraction]Ordered By: Dr. Hinds on 12-24-2022 Hematocrit (Bld) [Volume fraction] 41.4 % 37-47 [facility] Laboratory - Chemistry and C hemistry - challengeOrdered By: Dr. iHnds on 12-24-2022 ALP [Catalytic activity/Vol] 86 U/L 45-117 [facility] ALT [Catalytic activity/Vol] 15 U/L 13-56 [facility] CO2 [Moles/Vol] 28.0 mmol/L 21.0-32.0 [facility] Globulin (S) [Mass/Vol] 3.7 g/dL 2.2-4.2 [facility] Urea nitrogen/Creatinine [Mass ratio] 28.3 mg/mg 10-20 [facility] Laboratory - Hematology and Cell countsOrdered By: Dr. Hinds on 12-24-2022 Erythrocyte distribution width (RBC) [Entitic vol] 46.7 fL 35.1-43.9 [facility] Erythrocyte distribution width (RBC) [Ratio] 12.7 % 11.6-14.6 [facility] Immature granulocytes/100 WBC (Bld) 0.200 % 0.0-0.9 [facility] Comment on above: IG% - Immature Granu locytes (promyelocytes, myelocytes and metamyelocytes) > 1% indicates that a LEFT SHIFT is Present. MCH (RBC) [Entitic mass] 31.1 pg 27.0-32.0 [facility] Nucleated RBC/100 WBC (Bld) [Ratio] 0 % 0-5 [facility] MCHC Auto (RBC) [Mass/Vol]Or dered By: Dr. Hinds on 12-24-2022 MCHC (RBC) [Mass/Vol] 30.9 g/dL 32-36 [facility] No Panel InformationOrdered By: Dr. Hinds on 12-24-2022 Estimated GFR (MDRD) Amer 86 mL/min >60 [facility] Comment on above: GFR Calc Estimated GFR (MDRD) Non-Af Amer 71 mL/min >60 [facility] Comment on above: Non- GFR Calc Platelets bldOrdered By: Dr. Hinds on 12-24-2022 Platelets (Bld) [#/Vol] 275 10*3/uL 150-450 [facility] Serum or plasma albumin rhonda urement (mass/volume)Ordered By: Dr. Hinds on 12-24-2022 Albumin [Mass/Vol] 3.8 g/dL 3.2-5.0 [facility] Serum or plasma albumin/glob ulin mass ratioOrdered By: Dr. Hinds on 12-24-2022 Albumin/Globulin [Mass ratio] 1.0 {ratio} 0.9-2.4 [facility] Serum or plasma calcium rhonda urement (mass/volume)Ordered By: Dr. Hinds on 12-24-2022 Calcium [Mass/Vol] 9.9 mg/dL 8.5-10.1 [facility] Serum or plasma creatinine m easurement (mass/volume)Ordered By: Dr. Hinds on 12-24-2022 Creatinine [Mass/Vol] 0.81 mg/dL 0.55-1.02 [facility] Comment on above: The validity of the calculated GFR & GFRAA in patients over 70 years has not been determined. Clinical correlation is essential. Serum or plasma urea nitroge n measurement (mass/volume)Ordered By: Dr. Hinds on 12-24-2022 Urea nitrogen [Mass/Vol] 23 mg/dL 7-18 [facility] Thin prep Papanicolaou smear with manual screeningOrdered By: Dr. Hinds on 12-24-2022 Thin prep Papanicolaou smear with manual screening 17 U/L 15-37 [facility] Thin prep Papanicolaou smear with manual screening 7 5-15 [facility] Absolute lymphocyte counton 08-24-2022 Lymphocytes Auto (Unsp spec) [#/Vol] 1.68 10*3/uL 0.83-4.51 [facility] Work Phone: Basophil percentageon 2021 Basophils/100 WBC (Bld) 0.4 % 0-1 [facility] Work Phone: [phone] Bilirubin [Mass/Vol] 0.40 mg/dL 0.20-1.00 [facility] Work Phone: Comment on above: For patients on eltr ombopag therapy, use of [employer] TBIL is not recommended. Chloride [Moles/Vol] 102 mmol/L 98-107 [facility] Work Phone: [phone] Eosinophils/100 WBC (Bld) 2.0 % 0-5 [facility] Work Phone: Glucose [Mass/Vol] 86 mg/dL 74-106 [facility] Work Phone: [phone] Neutrophils (Bld) [#/Vol] 2.9 10*3/uL 2.0-7.7 [facility] Work Phone: [phone] Neutrophils/100 WBC (Bld) 56.1 % 47-70 [facility] Work Phone: Potassium [Moles/Vol] 4.1 mmol/L 3.5-5.1 [facility] Work [facility]: Protein [Mass/Vol] 7.6 g/dL 6.4-8.2 [facility] Work [facility]: Sodium [Moles/Vol] 135 mmol/L 136-145 [facility] Work Phone: [phone] WBC (Bld) [#/Vol] 5.1 10*3/uL 4.4-11.0 [facility] Work Phone: Blood erythrocytes count (nu mber/volume)on 08-24-2022 RBC (Bld) [#/Vol] 3.71 10*6/uL 4.2-5.[facility]: [phone] Blood hemoglobin measurement (mass/volume)on 08-24-2022 Hemoglobin (Bld) [Mass/Vol] 11.6 g/dL 12.0-15.0 [facility] Work Phone: Blood lymphocytes/100 leukoc yteson 08-24-2022 Lymphocytes/100 WBC (Bld) 33.0 % 19-41 [facility] Work Phone: Blood monocytes/100 leukocyt eson 08-24-2022 Monocytes/100 WBC (Bld) 8.3 % 0-10 [facility] Work Phone: Blood platelet mean volumeon 08-24-2022 Platelet mean volume (Bld) [Entitic vol] 9.9 fL 6.2-12.0 [facility] Work Phone: Determination of erythrocyte mean corpuscular volume (MCV)on 08-24-2022 MCV (RBC) [Entitic vol] 101.9 fL 81-99 [facility] Work Phone: Hematocrit Auto (Bld) [Volum e fraction]on 08-24-2022 Hematocrit (Bld) [Volume fraction] 37.8 % 37-47 [facility] Work Phone: Laboratory - Chemistry and C hemistry - challengeon 08-24-2022 ALP [Catalytic activity/Vol] 82 U/L 45-117 [facility] Work Phone: ALT [Catalytic activity/Vol] 39 U/L 13-56 [facility] Work Phone: CO2 [Moles/Vol] 29.0 mmol/L 21.0-32.0 [facility] Work Phone: Globulin (S) [Mass/Vol] 3.9 g/dL 2.2-4.2 [facility] Work Phone: Urea nitrogen/Creatinine [Mass ratio] 23.6 mg/mg 10-20 [facility] Work Phone: Laboratory - Hematology and Cell countson 08-24-2022 Erythrocyte distribution width (RBC) [Entitic vol] 51.7 fL 35.1-43.9 [facility] Work Phone: Erythrocyte distribution width (RBC) [Ratio] 14.4 % 11.6-14.6 [facility] Work Phone: Immature granulocytes/100 WBC (Bld) 0.200 % 0.0-0.9 [facility] Work Phone: Comment on above: IG% - Immature Granu locytes (promyelocytes, myelocytes and metamyelocytes) > 1% indicates that a LEFT SHIFT is Present. MCH (RBC) [Entitic mass] 31.3 pg 27.0-32.0 [facility] Work Phone: Nucleated RBC/100 WBC (Bld) [Ratio] 0 % 0-5 [facility] Work Phone: MCHC Auto (RBC) [Mass/Vol]on 08-24-2022 MCHC (RBC) [Mass/Vol] 30.7 g/dL 32-36 [facility] Work Phone: No Panel Informationon 08-24 Estimated GFR (MDRD) Amer 99 mL/min >60 [facility] Work Phone: Comment on above: GFR Calc Estimated GFR (MDRD) Non-Af Amer 82 mL/min >60 [facility] Work Phone: Comment on above: Non- GFR Calc Platelets bldon 08-24-2022 Platelets (Bld) [#/Vol] 278 10*3/uL 150-450 [facility] Work Phone: Serum or plasma albumin rhonda urement (mass/volume)on 08-24-2022 Albumin [Mass/Vol] 3.7 g/dL 3.2-5.0 [facility] Work Phone: Serum or plasma albumin/glob ulin mass ratioon 08-24-2022 Albumin/Globulin [Mass ratio] 0.9 {ratio} 0.9-2.4 [facility] Work Phone: Serum or plasma calcium rhonda urement (mass/volume)on 08-24-2022 Calcium [Mass/Vol] 11.1 mg/dL 8.5-10.1 [facility] Work Phone: Serum or plasma creatinine m easurement (mass/volume)on 08-24-2022 Creatinine [Mass/Vol] 0.72 mg/dL 0.55-1.02 [facility] Work Phone: Comment on above: The validity of the calculated GFR & GFRAA in patients over 70 years has not been determined. Clinical correlation is essential. Serum or plasma urea nitroge n measurement (mass/volume)on 08-24-2022 Urea nitrogen [Mass/Vol] 17 mg/dL 7-18 [facility] Work Phone: Thin prep Papanicolaou smear with manual screeningon 08-24-2022 Thin prep Papanicolaou smear with manual screening 37 U/L 15-37 [facility] Work Phone: Thin prep Papanicolaou smear with manual screening 4 5-15 [facility] Work Phone: UA DIP, URINE (POC)on 2021 BILIRUBIN UA (POCT) Negative Negative [facility] CLARITY UA (POCT) Cloudy [facility] COLOR UA (POCT) Light yellow [facility] GLUCOSE UA (POCT) Negative Negative mg/dL [facility] HEMOGLOBIN/BLOOD UA (POCT) Small Abnormal Negative [facility] KETONE UA (POCT) Negative Negative mg/dL [facility] LEUKOCYTES UA (POCT) Moderate Abnormal Negative [facility] N[facility]A (POCT) Positive Abnormal Negative [facility] PH UA (POCT) 6.5 4.5 - 8.0 [facility] Protein Ql (U) Negative Negative mg/dL [facility] SPECIFIC GRAVITY UA (POCT) 1.020 1.005 - 1.030 [facility] UROBILINOGEN UA (POCT) 0.2 E.U./dL Radha l E.U./dL [facility] Iron measurement (mass/mass) on 06-01-2022 Iron (Unsp spec) [Mass/Mass] 58 ug/dL 50-170 [facility] Work Phone: Laboratory - Chemistry and C hemistry - challengeon 06-01-2022 Cobalamin (Vitamin B12) [Mass/Vol] 215 pg/mL 211-911 [facility] Work Phone: No Panel Informationon 06-01 Levetiracetam (Keppra) Level <1.0 ug/mL 10.0-40.0 [facility] Work Phone: Comment on above: Performed at: [facility] [address] [id number] Director: Panda Johnson MD, Phone: [phone] Thyroid Stimulating Hormone (TSH) 2.34 uIU/mL 0.358-3.74 [facility] Work Phone: Whole Blood Vitamin B1 Level 112.2 nmol/L 66.5-200.0 [facility] Work Phone: Serum or plasma calcitriol m easurement (mass/volume)on 06-01-2022 1,25-dihydroxyvitamin D3 [Mass/Vol] 61.5 pg/mL 24.8-81.5 [facility] Work Phone: Comment on above: Please note refere nce interval changePerformed at: - [facility] [id number] Director: Panda Johnson MD, Phone: [phone] Serum or plasma ferritin savana surement (mass/volume)on 06-01-2022 Ferritin [Mass/Vol] 67 ng/mL 8-[address] [facility] Work Phone: Serum or plasma folate measu rement (mass/volume)on 06-01-2022 Folate [Mass/Vol] ng/mL 3.1-55.4 [facility] Work Phone: Absolute lymphocyte counton 05-27-2022 Lymphocytes Auto (Unsp spec) [#/Vol] 1.43 10*3/uL 0.83-4.51 [facility] Work Phone: Basophil percentageon 2021 Basophils/100 WBC (Bld) 0.4 % 0-1 [facility] Work Phone: Bilirubin [Mass/Vol] 0.30 mg/dL 0.20-1.00 [facility] Work Phone: Comment on above: For patients on eltr ombopag therapy, use of [employer] TBIL is not recommended. Chloride [Moles/Vol] 101 mmol/L 98-107 [facility] Work Phone: Eosinophils/100 WBC (Bld) 2.2 % 0-5 [facility] Work Phone: Glucose [Mass/Vol] 81 mg/dL 74-106 [facility] Work Phone: Neutrophils (Bld) [#/Vol] 4.3 10*3/uL 2.0-7.7 [facility] Work Phone: Neutrophils/100 WBC (Bld) 64.0 % 47-70 [facility] Work Phone: Potassium [Moles/Vol] 4.4 mmol/L 3.5-5.1 [facility] Work Phone: Protein [Mass/Vol] 7.2 g/dL 6.4-8.2 [facility] Work Phone: Sodium [Moles/Vol] 133 mmol/L 136-145 [facility] Work Phone: WBC (Bld) [#/Vol] 6.8 10*3/uL 4.4-11.0 [facility] Work Phone: Blood erythrocytes count (nu mber/volume)on 05-27-2022 RBC (Bld) [#/Vol] 3.64 10*6/uL 4.2-5.4 [facility] Work [facility]: Blood hemoglobin measurement (mass/volume)on 05-27-2022 Hemoglobin (Bld) [Mass/Vol] 11.6 g/dL 12.0-15.0 [facility] Work Phone: Blood lymphocytes/100 leukoc yteson 05-27-2022 Lymphocytes/100 WBC (Bld) 21.1 % 19-41 [facility] Work Phone: Blood monocytes/100 leukocyt eson 05-27-2022 Monocytes/100 WBC (Bld) 12.0 % 0-10 [facility] Work Phone: Blood platelet mean volumeon 05-27-2022 Platelet mean volume (Bld) [Entitic vol] 10.2 fL 6.2-12.0 [facility] Work Phone: Determination of erythrocyte mean corpuscular volume (MCV)on 05-27-2022 MCV (RBC) [Entitic vol] 103.8 fL 81-99 [facility] Work Phone: Hematocrit Auto (Bld) [Volum e fraction]on 05-27-2022 Hematocrit (Bld) [Volume fraction] 37.8 % 37-47 [facility] Work Phone: Laboratory - Chemistry and C hemistry - challengeon 05-27-2022 ALP [Catalytic activity/Vol] 91 U/L 45-117 [facility] Work Phone: ALT [Catalytic activity/Vol] 17 U/L 13-56 [facility] Work Phone: CO2 [Moles/Vol] 28.0 mmol/L 21.0-32.0 [facility] Work Phone: Globulin (S) [Mass/Vol] 3.6 g/dL 2.2-4.2 [facility] Work Phone: Urea nitrogen/Creatinine [Mass ratio] 18.3 mg/mg 10-20 [facility] Work Phone: Laboratory - Hematology and Cell countson 05-27-2022 Erythrocyte distribution width (RBC) [Entitic vol] 51.5 fL 35.1-43.9 [facility] Work Phone: Erythrocyte distribution width (RBC) [Ratio] 13.4 % 11.6-14.6 [facility] Work Phone: Immature granulocytes/100 WBC (Bld) 0.300 % 0.0-0.9 [facility] Work Phone: Comment on above: IG% - Immature Granu locytes (promyelocytes, myelocytes and metamyelocytes) > 1% indicates that a LEFT SHIFT is Present. MCH (RBC) [Entitic mass] 31.9 pg 27.0-32.0 [facility] Work Phone: Nucleated RBC/100 WBC (Bld) [Ratio] 0 % 0-5 [facility] Work Phone: MCHC Auto (RBC) [Mass/Vol]on 05-27-2022 MCHC (RBC) [Mass/Vol] 30.7 g/dL 32-36 [facility] Work Phone: No Panel Informationon 05-27 Estimated GFR (MDRD) Amer 92 mL/min >60 [facility] Work Phone: Comment on above: GFR Calc Estimated GFR (MDRD) Non-Af Amer 76 mL/min >60 [facility] Work Phone: Comment on above: Non- GFR Calc Platelets bldon 05-27-2022 Platelets (Bld) [#/Vol] 255 10*3/uL 150-450 [facility] Work Phone: Serum or plasma albumin rhonda urement (mass/volume)on 05-27-2022 Albumin [Mass/Vol] 3.6 g/dL 3.2-5.0 [facility] Work Phone: Serum or plasma albumin/glob ulin mass ratioon 05-27-2022 Albumin/Globulin [Mass ratio] 1.0 {ratio} 0.9-2.4 [facility] Work Phone: Serum or plasma calcium rhonda urement (mass/volume)on 05-27-2022 Calcium [Mass/Vol] 9.7 mg/dL 8.5-10.1 [facility] Work Phone: Serum or plasma creatinine m easurement (mass/volume)on 05-27-2022 Creatinine [Mass/Vol] 0.76 mg/dL 0.55-1.02 [facility] Work Phone: Comment on above: The validity of the calculated GFR & GFRAA in patients over 70 years has not been determined. Clinical correlation is essential. Serum or plasma urea nitroge n measurement (mass/volume)on 05-27-2022 Urea nitrogen [Mass/Vol] 14 mg/dL 7-18 [facility] Work Phone: Thin prep Papanicolaou smear with manual screeningon 05-27-2022 Thin prep Papanicolaou smear with manual screening 14 U/L 15-37 [facility] Work Phone: Thin prep Papanicolaou smear with manual screening 4 5-15 [facility] Work Phone: Absolute lymphocyte counton 02-23-2022 Lymphocytes Auto (Unsp spec) [#/Vol] 1.94 10*3/uL 0.83-4.51 [facility] Work Phone: Basophil percentageon 2021 Basophils/100 WBC (Bld) 0.6 % 0-1 [facility] Work Phone: Bilirubin [Mass/Vol] 0.40 mg/dL 0.20-1.00 [facility] Work Phone: [phone] Comment on above: For patients on eltr ombopag therapy, use of [employer] TBIL is not recommended. Chloride [Moles/Vol] 101 mmol/L 98-107 [facility] Work Phone: Eosinophils/100 WBC (Bld) 2.2 % 0-5 [facility] Work Phone: Glucose [Mass/Vol] 86 mg/dL 74-106 [facility] Work Phone: Neutrophils (Bld) [#/Vol] 3.7 10*3/uL 2.0-7.7 [facility] Work Phone: [phone] Neutrophils/100 WBC (Bld) 57.0 % 47-70 [facility] Work Phone: [phone] Potassium [Moles/Vol] 4.4 mmol/L 3.5-5.1 [facility] Work Phone: [phone] Protein [Mass/Vol] 7.5 g/dL 6.4-8.2 [facility] Work Phone: Sodium [Moles/Vol] 135 mmol/L 136-145 [facility] Work Phone: WBC (Bld) [#/Vol] 6.5 10*3/uL 4.4-11.0 [facility] Work Phone: Blood erythrocytes count (nu mber/volume)on 02-23-2022 RBC (Bld) [#/Vol] 3.86 10*6/uL 4.2-5.4 [facility] Work Phone: [phone] Blood hemoglobin measurement (mass/volume)on 02-23-2022 Hemoglobin (Bld) [Mass/Vol] 11.8 g/dL 12.0-15.0 [facility] Work Phone: Blood lymphocytes/100 leukoc yteson 02-23-2022 Lymphocytes/100 WBC (Bld) 29.8 % 19-41 [facility] Work Phone: Blood monocytes/100 leukocyt eson 02-23-2022 Monocytes/100 WBC (Bld) 10.1 % 0-10 [facility] Work Phone: Blood platelet mean volumeon 02-23-2022 Platelet mean volume (Bld) [Entitic vol] 9.9 fL 6.2-12.0 [facility] Work Phone: Determination of erythrocyte mean corpuscular volume (MCV)on 02-23-2022 MCV (RBC) [Entitic vol] 97.4 fL 81-99 [facility] Work Phone: Hematocrit Auto (Bld) [Volum e fraction]on 02-23-2022 Hematocrit (Bld) [Volume fraction] 37.6 % 37-47 [facility] Work Phone: Laboratory - Chemistry and C hemistry - challengeon 02-23-2022 ALP [Catalytic activity/Vol] 76 U/L 45-117 [facility] Work Phone: ALT [Catalytic activity/Vol] 20 U/L 13-56 [facility] Work Phone: CO2 [Moles/Vol] 30.0 mmol/L 21.0-32.0 [facility] Work Phone: Globulin (S) [Mass/Vol] 3.8 g/dL 2.2-4.2 [facility] Work Phone: Urea nitrogen/Creatinine [Mass ratio] 28.4 mg/mg 10-20 [facility] Work Phone: Laboratory - Hematology and Cell countson 02-23-2022 Erythrocyte distribution width (RBC) [Entitic vol] 54.6 fL 35.1-43.9 [facility] Work Phone: Erythrocyte distribution width (RBC) [Ratio] 15.3 % 11.6-14.6 [facility] Work Phone: Immature granulocytes/100 WBC (Bld) 0.300 % 0.0-0.9 [facility] Work Phone: Comment on above: IG% - Immature Granu locytes (promyelocytes, myelocytes and metamyelocytes) > 1% indicates that a LEFT SHIFT is Present. MCH (RBC) [Entitic mass] 30.6 pg 27.0-32.0 [facility] Work Phone: Nucleated RBC/100 WBC (Bld) [Ratio] 0 % 0-5 [facility] Work Phone: MCHC Auto (RBC) [Mass/Vol]on 02-23-2022 MCHC (RBC) [Mass/Vol] 31.4 g/dL 32-36 [facility] Work Phone: No Panel Informationon 02-23 Estimated GFR (MDRD) Amer 91 mL/min >60 [facility] Work Phone: Comment on above: GFR Calc Estimated GFR (MDRD) Non-Af Amer 75 mL/min >60 [facility] Work Phone: Comment on above: Non- GFR Calc Platelets bldon 02-23-2022 Platelets (Bld) [#/Vol] 260 10*3/uL 150-450 [facility] Work Phone: Serum or plasma albumin rhonda urement (mass/volume)on 02-23-2022 Albumin [Mass/Vol] 3.7 g/dL 3.2-5.0 [facility] Work Phone: Serum or plasma albumin/glob ulin mass ratioon 02-23-2022 Albumin/Globulin [Mass ratio] 1.0 {ratio} 0.9-2.4 [facility] Work Phone: Serum or plasma calcium rhonda urement (mass/volume)on 02-23-2022 Calcium [Mass/Vol] 9.5 mg/dL 8.5-10.1 [facility] Work Phone: Serum or plasma creatinine m easurement (mass/volume)on 02-23-2022 Creatinine [Mass/Vol] 0.78 mg/dL 0.55-1.02 [facility] Work Phone: Comment on above: The validity of the calculated GFR & GFRAA in patients over 70 years has not been determined. Clinical correlation is essential. Serum or plasma urea nitroge n measurement (mass/volume)on 02-23-2022 Urea nitrogen [Mass/Vol] 22 mg/dL 7-18 [facility] Work Phone: Thin prep Papanicolaou smear with manual screeningon 02-23-2022 Thin prep Papanicolaou smear with manual screening 14 U/L 15-37 [facility] Work Phone: Thin prep Papanicolaou smear with manual screening 4 5-15 [facility] Work Phone: Vital Signs Date Time Vital Sign Value Performing Clinician Faci lity 07-23-2025 14:17-0400 Body mass index (BMI) [Ratio] 25.69 kg/m2 Fitz Walters MD Work Phone: [facility] 07-23-2025 14:17-0400 Body temperature 98.29 [degF] Fitz Walters MD Work Phone: [facility] 07-23-2025 14:17-0400 Body weight 63.2 kg Fitz Walters MD Work Phone: [facility] 07-23-2025 14:17-0400 Diastolic blood pressure 70 mm[Hg] Fitz Walters MD Work Phone: [facility] 07-23-2025 14:17-0400 Heart rate 80 /min Fitz Walters MD Work Phone: [facility] 07-23-2025 14:17-0400 Systolic blood pressure 114 mm[Hg] Fitz Walters MD Work Phone: [facility] 07-18-2025 17:00-0400 Body temperature 98.4 [degF] Dr. Fitz Walters MD Work Phone: [phone] [place] [address] 07-18-2025 17:00-0400 Diastolic blood pressure 62 mm[Hg] Dr. Fitz Walters MD Work Phone: [phone] [place] [address] 07-18-2025 17:00-0400 Heart rate 77 /min Dr. Fitz Walters MD Work Phone: [phone] [place] [address] 07-18-2025 17:00-0400 Respiratory rate 16 /min Dr. Fitz Walters MD Work Phone: [phone] [place] [address] 07-18-2025 17:00-0400 SaO2% (BldA) [Mass fraction] 94 % Dr. Fitz Walters MD Work Phone: [phone] [place] [address] 07-18-2025 17:00-0400 Systolic blood pressure 113 mm[Hg] Dr. Fitz Walters MD Work Phone: [phone] [place] [address] 07-18-2025 08:39-0400 Body height 167.[address] Fitz Walters MD Work Phone: 3(270)255-238111 [place] [address] 07-18-2025 08:39-0400 Body mass index (BMI) [Ratio] 22.8 kg/m2 Dr. Fitz Walters MD Work Phone: 1(694)434-831811 [place] [address] 07-18-2025 08:39-0400 Body weight 64.[address] Fitz Walters MD Work Phone: 2(365)264-644011 [place] [address] 07-14-2025 00:17-0400 Diastolic blood pressure 76 mm[Hg] Dr. Fitz Walters MD Work Phone: 3(141)871-292711 [place] [address] 07-14-2025 00:17-0400 Heart rate 104 /min Dr. Fitz Walters MD Work Phone: 0(435)201-976911 [place] [address] 07-14-2025 00:17-0400 Respiratory rate 18 /min Dr. Fitz Walters MD Work Phone: [facility] 07-14-2025 00:17-0400 SaO2% (BldA) [Mass fraction] 94 % Dr. Fitz Walters MD Work Phone: [facility] 07-14-2025 00:17-0400 Systolic blood pressure 121 mm[Hg] Dr. Fitz Walters MD Work Phone: 6(164)510-528919 [place] [address] 07-13-2025 23:12-0400 Body temperature 99.9 [degF] Dr. Fitz Walters MD Work Phone: 4(704)045-517119 [place] [address] 07-13-2025 19:38-0400 Body height 165.[address] Fitz Walters MD Work Phone: 7(165)136-072419 [place] [address] 07-13-2025 19:38-0400 Body mass index (BMI) [Ratio] 23.7 kg/m2 Dr. Fitz Walters MD Work Phone: 8(973)939-756219 [place] [address] 07-13-2025 19:38-0400 Body weight 64.[address] Fitz Walters MD Work Phone: 2(479)817-684819 [place] [address] 05-23-2025 14:53-0400 Body mass index (BMI) [Ratio] 25.61 kg/m2 Sandra Coombs APRN.FLAGSETTER Work Phone: [facility] 05-23-2025 14:53-0400 Body temperature 97.2 [degF] Sandra Coombs TURN LASTER.FLAGSETTER Work Phone: [facility] 05-23-2025 14:53-0400 Body weight 63 kg Sandra Coombs TURN LASTER.FLAGSETTER Work Phone: [facility] 05-23-2025 14:53-0400 Diastolic blood pressure 72 mm[Hg] Sandra Coomsb TURN LASTER.FLAGSETTER Work Phone: [facility] 05-23-2025 14:53-0400 Heart rate 68 /min Sandra Coombs TURN LASTER.FLAGSETTER Work Phone: [facility] 05-23-2025 14:53-0400 Respiratory rate 12 /min Sandra Corin TURN LASTER.FLAGSETTER Work Phone: [facility] 05-23-2025 14:53-0400 SaO2% (BldA) [Mass fraction] 94 % Sandrakarmen Coombs TURN LASTER.FLAGSETTER Work Phone: [facility] 05-23-2025 14:53-0400 Systolic blood pressure 114 mm[Hg] Snadra Coombs TURN LASTER.FLAGSETTER Work Phone: [facility] 05-12-2025 14:00-0400 Body temperature 98.6 [degF] Dr. Fitz Walters MD Work Phone: 0(262)225-501319 [place] [address] 05-12-2025 14:00-0400 Diastolic blood pressure 57 mm[Hg] Dr. Fitz Walters MD Work Phone: 2(044)327-059219 [place] [address] 05-12-2025 14:00-0400 Heart rate 76 /min Dr. Fitz Walters MD Work Phone: 4(974)416-618619 [place] [address] 05-12-2025 14:00-0400 Respiratory rate 14 /min Dr. Fitz Walters MD Work Phone: 7(612)880-652919 [place] [address] 05-12-2025 14:00-0400 SaO2% (BldA) [Mass fraction] 99 % Dr. Fitz Walters MD Work Phone: 6(944)412-173019 [place] [address] 05-12-2025 14:00-0400 Systolic blood pressure 129 mm[Hg] Dr. Fitz Walters MD Work Phone: 8(861)974-809519 [place] [address] 05-12-2025 06:00-0400 Body mass index (BMI) [Ratio] 24 kg/m2 Dr. Fitz Walters MD Work Phone: 9(945)788-875119 [place] [address] 05-12-2025 06:00-0400 Body weight 65.[address] Fitz Walters MD Work Phone: 7(729)228-363919 [place] [address] 05-10-2025 23:17-0400 Body height 165.[address] Fitz Walters MD Work Phone: 8(948)784-351511 [place] [address] 05-10-2025 22:00-0400 Body temperature 98.9 [degF] Dr. Fitz Walters MD Work Phone: 9(030)604-449111 [place] [address] 05-10-2025 22:00-0400 Diastolic blood pressure 78 mm[Hg] Dr. Fitz Walters MD Work Phone: 4(561)212-431311 [place] [address] 05-10-2025 22:00-0400 Heart rate 92 /min Dr. Fitz Walters MD Work Phone: 6(412)447-893111 [place] [address] 05-10-2025 22:00-0400 Respiratory rate 22 /min Dr. Fitz Walters MD Work Phone: 0(746)843-122411 [place] [address] 05-10-2025 22:00-0400 SaO2% (BldA) [Mass fraction] 100 % Dr. Fitz Walters MD Work Phone: 2(070)006-832511 [place] [address] 05-10-2025 22:00-0400 Systolic blood pressure 145 mm[Hg] Dr. Fitz Walters MD Work Phone: 3(193)481-543411 [place] [address] 05-10-2025 17:37-0400 Body height 162.[address] Fitz Walters MD Work Phone: 1(149)456-442211 [place] [address] 05-10-2025 17:37-0400 Body mass index (BMI) [Ratio] 23.8 kg/m2 Dr. Fitz Walters MD Work Phone: 0(046)124-791311 [place] [address] 05-10-2025 17:37-0400 Body weight 63.[address] Fitz Walters MD Work Phone: 8(712)035-976511 [place] [address] 04-17-2025 13:55-0400 Body temperature 97.8 [degF] Dr. Fitz Walters MD Work Phone: 6(696)248-618811 [place] [address] 04-17-2025 13:55-0400 Body weight 64.[address] Fitz Walters MD Work Phone: 0(458)623-612211 [place] [address] 04-17-2025 13:55-0400 Diastolic blood pressure 70 mm[Hg] Dr. Fitz Walters MD Work Phone: [facility] 04-17-2025 13:55-0400 Heart rate 80 /min Dr. Fitz Walters MD Work Phone: 6(730)596-072619 [place] [address] 04-17-2025 13:55-0400 Respiratory rate 17 /min Dr. Fitz Walters MD Work Phone: 4(841)336-339219 [place] [address] 04-17-2025 13:55-0400 SaO2% (BldA) [Mass fraction] 96 % Dr. Fitz Walters MD Work Phone: 4(578)441-570919 [place] [address] 04-17-2025 13:55-0400 Systolic blood pressure 122 mm[Hg] Dr. Fitz Walters MD Work Phone: 0(547)210-373919 [place] [address] 11-27-2024 13:35-0500 Body height 156.8 cm Sandra Coombs APRN.FLAGSETTER Work Phone: [facility] 11-27-2024 13:35-0500 Body mass index (BMI) [Ratio] 26.79 kg/m2 Sandra Coombs TURN LASTER.FLAGSETTER Work Phone: [facility] 11-27-2024 13:35-0500 Body weight 65.9 kg Sandra Coombs APRN.FLAGSETTER Work Phone: [facility] 11-27-2024 13:35-0500 Diastolic blood pressure 62 mm[Hg] Sandra Coombs TURN LASTER.FLAGSETTER Work Phone: [facility] 11-27-2024 13:35-0500 Heart rate 72 /min Sandra Coombs APRN.FLAGSETTER Work Phone: [facility] 11-27-2024 13:35-0500 SaO2% (BldA) [Mass fraction] 98 % Sandra Coombs APRN.FLAGSETTER Work Phone: [facility] 11-27-2024 13:35-0500 Systolic blood pressure 110 mm[Hg] Sandra Coombs APRN.CNP Work Phone: [facility] 05-25-2024 14:42-0400 Body mass index (BMI) [Ratio] 27.07 kg/m2 Fitz Walters MD Work Phone: [facility] 05-25-2024 14:42-0400 Body temperature 97.39 [degF] Fitz Walters MD Work Phone: [facility] 05-25-2024 14:42-0400 Body weight 67.13 kg Fitz Walters MD Work Phone: [facility] 05-25-2024 14:42-0400 Diastolic blood pressure 76 mm[Hg] Fitz Walters MD Work Phone: [facility] 05-25-2024 14:42-0400 Heart rate 72 /min Fitz Walters MD Work Phone: [facility] 05-25-2024 14:42-0400 Respiratory rate 20 /min Fitz Walters MD Work Phone: [facility] 05-25-2024 14:42-0400 Systolic blood pressure 126 mm[Hg] Fitz Walters MD Work Phone: [facility] 06-08-2023 13:43-0400 Body height 162.[address] Fitz Walters Work Phone: [facility] 06-08-2023 13:43-0400 Body mass index (BMI) [Ratio] 25.4 kg/m2 Dr. Fitz Walters Work Phone: [facility] 06-08-2023 13:43-0400 Body temperature 97.9 [degF] Dr. Fitz Walters Work Phone: [facility] 06-08-2023 13:43-0400 Body weight 67.[address] Fitz Walters Work Phone: [facility] 06-08-2023 13:43-0400 Diastolic blood pressure 78 mm[Hg] Dr. Fitz Walters Work Phone: [facility] 06-08-2023 13:43-0400 Heart rate 68 /min Dr. Fitz Walters Work Phone: [facility] 06-08-2023 13:43-0400 Respiratory rate 16 /min Dr. Fitz Walters Work Phone: [facility] 06-08-2023 13:43-0400 SaO2% (BldA) [Mass fraction] 99 % Dr. Fitz Walters Work Phone: [facility] 06-08-2023 13:43-0400 Systolic blood pressure 112 mm[Hg] Dr. Fitz Walters Work Phone: [facility] 05-17-2023 14:44-0400 Body weight 66.22 kg Fitz Walters MD Work Phone: [facility] 05-17-2023 14:44-0400 Diastolic blood pressure 68 mm[Hg] Fitz Walters MD Work Phone: [facility] 05-17-2023 14:44-0400 Heart rate 64 /min Fitz Walters MD Work Phone: [facility] 05-17-2023 14:44-0400 Respiratory rate 18 /min Fitz Walters MD Work Phone: [facility] 05-17-2023 14:44-0400 Systolic blood pressure 126 mm[Hg] Fitz Walters MD Work Phone: [facility] 03-08-2023 13:13-0400 Body height 162.[address] Fitz Walters Work Phone: [facility] 03-08-2023 13:13-0400 Body mass index (BMI) [Ratio] 24.9 kg/m2 Dr. Fitz Walters Work Phone: [facility] 03-08-2023 13:13-0400 Body temperature 98 [degF] Dr. Fitz Walters Work Phone: [facility] 03-08-2023 13:13-0400 Body weight 65.[address] Fitz Walters Work Phone: 0(026)738-861719 [place] [address] 03-08-2023 13:13-0400 Diastolic blood pressure 70 mm[Hg] Dr. Fitz Walters Work Phone: 2(254)175-512311 [place] [address] 03-08-2023 13:13-0400 Heart rate 61 /min Dr. Fitz Walters Work Phone: 2(063)939-878211 [place] [address] 03-08-2023 13:13-0400 Respiratory rate 17 /min Dr. Fitz Walters Work Phone: 7(156)708-949311 [place] [address] 03-08-2023 13:13-0400 SaO2% (BldA) [Mass fraction] 99 % Dr. Fitz Walters Work Phone: 0(500)460-287111 [place] [address] 03-08-2023 13:13-0400 Systolic blood pressure 128 mm[Hg] Dr. Fitz Walters Work Phone: 5(541)502-162511 [place] [address] 02-16-2023 15:18-0400 Body mass index (BMI) [Ratio] 24.5 kg/m2 Dr. Fitz Walters Work Phone: 7(105)105-697411 [place] [address] 02-16-2023 15:18-0400 Body temperature 98.2 [degF] Dr. Fitz Walters Work Phone: 7(184)236-252211 [place] [address] 02-16-2023 15:18-0400 Body weight 64.[address] Fitz Walters Work Phone: 3(563)676-044611 [place] [address] 02-16-2023 15:18-0400 Diastolic blood pressure 81 mm[Hg] Dr. Fitz Walters Work Phone: 9(149)774-556511 [place] [address] 02-16-2023 15:18-0400 Heart rate 67 /min Dr. Fitz Walters Work Phone: 8(454)634-059011 [place] [address] 02-16-2023 15:18-0400 Respiratory rate 20 /min Dr. Fitz Walters Work Phone: [facility] 02-16-2023 15:18-0400 SaO2% (BldA) [Mass fraction] 94 % Dr. Fitz Walters Work Phone: [facility] 02-16-2023 15:18-0400 Systolic blood pressure 129 mm[Hg] Dr. Fitz Walters Work Phone: [facility] 02-10-2023 11:54-0400 Body temperature 98.01 [degF] Milagros Avila TURN LASTER.FLAGSETTER Work Phone: [facility] 02-10-2023 11:54-0400 Body weight 64.14 kg Milagros Pound TURN LASTER.FLAGSETTER Work Phone: [facility] 02-10-2023 11:54-0400 Diastolic blood pressure 64 mm[Hg] Milagros Avila TURN LASTER.FLAGSETTER Work Phone: [facility] 02-10-2023 11:54-0400 Heart rate 65 /min Milagros Pound TURN LASTER.FLAGSETTER Work Phone: [facility] 02-10-2023 11:54-0400 Respiratory rate 18 /min Milagros Pound TURN LASTER.FLAGSETTER Work Phone: [facility] 02-10-2023 11:54-0400 SaO2% (BldA) [Mass fraction] 96 % Milagros Avila TURN LASTER.FLAGSETTER Work Phone: [facility] 02-10-2023 11:54-0400 Systolic blood pressure 128 mm[Hg] Milagros Pound TURN LASTER.FLAGSETTER Work Phone: [facility] 02-02-2023 15:18-0400 Body height 162.[address] Fitz Walters Work Phone: [facility] 02-02-2023 15:18-0400 Body mass index (BMI) [Ratio] 24.7 kg/m2 Dr. Fitz Walters Work Phone: [facility] 02-02-2023 15:18-0400 Body temperature 98 [degF] Dr. Fitz Walters Work Phone: [facility] 02-02-2023 15:18-0400 Body weight 65.[address] Fitz Walters Work Phone: [facility] 02-02-2023 15:18-0400 Diastolic blood pressure 80 mm[Hg] Dr. Fitz Walters Work Phone: [facility] 02-02-2023 15:18-0400 Heart rate 75 /min Dr. Fitz Walters Work Phone: 2(391)157-364619 [place] [address] 02-02-2023 15:18-0400 Respiratory rate 16 /min Dr. Fitz Walters Work Phone: 3(226)501-300019 [place] [address] 02-02-2023 15:18-0400 SaO2% (BldA) [Mass fraction] 98 % Dr. Fitz Walters Work Phone: 0(025)972-975319 [place] [address] 02-02-2023 15:18-0400 Systolic blood pressure 124 mm[Hg] Dr. Fitz Walters Work Phone: 3(446)351-765819 [place] [address] 11-10-2022 13:12-0500 Body height 159.4 cm Sandra Older TURN LASTER.FLAGSETTER Work Phone: [facility] 11-10-2022 13:12-0500 Body weight 64.41 kg Sandra Older TURN LASTER.FLAGSETTER Work Phone: [facility] 11-10-2022 13:12-0500 Diastolic blood pressure 79 mm[Hg] Sandra Older TURN LASTER.FLAGSETTER Work Phone: [facility] 11-10-2022 13:12-0500 Heart rate 81 /min Sandra Older TURN LASTER.FLAGSETTER Work Phone: [facility] 11-10-2022 13:12-0500 Respiratory rate 18 /min Sandra Older TURN LASTER.FLAGSETTER Work Phone: [facility] 11-10-2022 13:12-0500 Systolic blood pressure 123 mm[Hg] Sandra Older TURN LASTER.FLAGSETTER Work Phone: [facility] 07-09-2022 14:02-0400 Body temperature 96.8 [degF] Fitz Walters MD Work Phone: [facility] 07-09-2022 14:02-0400 Body weight 63.96 kg Fitz Walters MD Work Phone: [facility] 07-09-2022 14:02-0400 Diastolic blood pressure 73 mm[Hg] Fitz Walters MD Work Phone: [facility] 07-09-2022 14:02-0400 Heart rate 68 /min Fitz Walters MD Work Phone: [facility] 07-09-2022 14:02-0400 Respiratory rate 20 /min Fitz Walters MD Work Phone: [facility] 07-09-2022 14:02-0400 Systolic blood pressure 118 mm[Hg] Fitz Walters MD Work Phone: [facility] 06-01-2022 11:28-0400 Body height 162.[address] Fitz Walters Work Phone: [facility] Work Phone: 06-01-2022 11:28-0400 Diastolic blood pressure 81 mm[Hg] Dr. Fitz Walters Work Phone: [facility] Work Phone: 06-01-2022 11:28-0400 Respiratory rate 16 /min Dr. Fitz Walters Work Phone: [facility] Work Phone: 06-01-2022 11:28-0400 Systolic blood pressure 130 mm[Hg] Dr. Fitz Walters Work Phone: [facility] Work Phone: 06-01-2022 10:07-0400 Body mass index (BMI) [Ratio] 24.7 kg/m2 Dr. Fitz Walters Work Phone: [facility] Work Phone: 06-01-2022 10:07-0400 Body temperature 98.2 [degF] Dr. Fitz Walters Work Phone: [facility] Work Phone: 06-01-2022 10:07-0400 Body weight 65.[address] Fitz Walters Work Phone: [facility] Work Phone: 06-01-2022 10:07-0400 Heart rate 64 /min Dr. Fitz Walters Work Phone: [facility] Work Phone: 06-01-2022 10:07-0400 SaO2% (BldA) [Mass fraction] 97 % Dr. Fitz Walters Work Phone: [facility] Work Phone: 05-07-2022 13:41-0400 Body temperature 96.91 [degF] Fitz Walters MD Work Phone: [facility] 05-07-2022 13:41-0400 Body weight 65.32 kg Fitz Walters MD Work Phone: [facility] 05-07-2022 13:41-0400 Diastolic blood pressure 58 mm[Hg] Fitz Walters MD Work Phone: [facility] 05-07-2022 13:41-0400 Heart rate 68 /min Fitz Walters MD Work Phone: [facility] 05-07-2022 13:41-0400 Respiratory rate 12 /min Fitz Walters MD Work Phone: [facility] 05-07-2022 13:41-0400 Systolic blood pressure 110 mm[Hg] Fitz Walters MD Work Phone: [facility] Encounters Encounter Date Encounter Type Care Provider Facility Start: 09-17-2025 ambulatory Luke Smith Facility:[facility] Start: 09-17-2025 End: 09-19-2025 Evaluation and management of inpatient Luke Smith Facility:[facility] Start: 09-17-2025 ambulatory Luke Smith Facility:[facility] Start: 09-17-2025 End: 09-17-2025 ambulatory KAREN ROMEO Facility:[facility] Start: 09-15-2025 End: 09-15-2025 Emergency department patient visit Fitz Walters Facility:[facility] Start: 09-07-2025 End: 09-07-2025 ambulatory KAREN ROMEO Facility:[facility] Start: 07-27-2025 End: 07-27-2025 Patient encounter procedure Angelina Fleming Work Phone: Podiatry Comment on above: Onychomycosis (Prima ry Dx); Pain in toe of right foot; Pain in toe of left foot; Type 2 diabetes, controlled, with peripheral neuropathy (HCC); Callus of foot Start: 07-27-2025 End: 07-27-2025 ambulatory ANGELINA FLEMING Facility:[facility] Start: 07-23-2025 End: 07-23-2025 ambulatory FITZ WALTERS Facility:[facility] Start: 07-23-2025 End: 07-23-2025 Office outpatient visit 25 minutes Fitz Walters MD Work Phone: [facility] [place] Comment on above: History of gastroent eritis (Primary Dx); Encounter for immunization; History of encephalopathy; Hyponatremia; Hypomagnesemia; Essential hypertension; Edema of both legs; Pressure injury of sacral region, stage 1; Muscular weakness; Type 2 diabetes, controlled, with peripheral neuropathy (HCC); Blastocystis hominis Start: 07-23-2025 End: 07-23-2025 ambulatory FITZ WALTERS Facility:[facility] Start: 07-23-2025 End: 07-23-2025 Telephone encounter Fitz Walters MD Work Phone: [facility] [place] Comment on above: Results Start: 07-18-2025 ambulatory Adrian Hanson Facility :[facility] Start: 07-18-2025 Non-patient / Non-visit Adrian Price nd DO -[facility] Start: 07-18-2025 Non-patient / Non-visit Deonte Merlos NP-C -[facility] Start: 07-16-2025 Non-patient / [facility] Work Phone: Start: 07-15-2025 Non-patient / Non-visit [facility]. Harley [facility] Work Phone: Start: 07-14-2025 ambulatory Candido Murray ty:[facility] Start: 07-14-2025 Non-patient / Non-visit [facility]. Harley [facility] Work Phone: Start: 07-14-2025 ambulatory Candido Murray ty:[facility] Start: 07-14-2025 End: 07-18-2025 Evaluation and management of inpatient Dr. Candido Quiroga DO [facility] Work Phone: Start: 07-03-2025 End: 07-03-[address] Fitz Walters MD Work Phone: -[facility] Start: 07-03-2025 End: 07-03-[address] Laurence Hinds MD -Laboratory [place] Work Phone: Start: 07-03-2025 End: 07-03-2025 ambulatory Laurence Hinds Facility:[facility] Start: 05-28-2025 End: 07-28-2025 Follow-up encounter Sandra Coombs APRN.FLAGSETTER Work Phone: [facility] [place] Start: 05-23-2025 End: 05-23-2025 Office outpatient visit 25 minutes Sandra Coombs APRN.FLAGSETTER Work Phone: [facility] [place] Comment on above: Cellulitis of right lower extremity (Primary Dx); Cat bite of right lower leg, initial encounter Start: 05-23-2025 End: 05-23-2025 ambulatory SANDRA COOMBS Facility:[facility] Start: 05-12-2025 Non-patient / Non-visit Dr. Shelley Junior DO -[facility] Work Phone: Start: 05-11-2025 Non-patient / Non-visit Dr. Shelley Junior [facility] Work Phone: Start: 05-10-2025 End: 05-12-2025 Evaluation and management of inpatient Dr. Misty Blanco MD -[facility] 3 Work Phone: Start: 05-10-2025 ambulatory Josseline [facility] Facility: [facility] Start: 05-10-2025 Non-patient / Non-visit Dr. Nancy Blanco MD -[facility] Work Phone: Start: 04-17-2025 End: 04-17-[address] Chong Cantu MD -[facility] Work Phone: Start: 04-17-2025 End: 04-17-[address] Fitz Walters MD Work Phone: [facility] Work Phone: Start: 04-17-2025 End: 04-17-2025 ambulatory [facility] Facility:[facility] Start: 04-02-2025 End: 04-02-2025 Refill Sandra Coombs APRN.CNP Work Phone: [facility] [place] Comment on above: Refill Request Start: 02-05-2025 End: 02-05-2025 Refill Fitz Walters MD Work Phone: [facility] [place] Comment on above: Refill Request Start: 01-19-2025 End: 01-19-[address] Fitz Walters MD Work Phone: [facility] Work Phone: Start: 01-19-2025 End: 01-19-[address] Laurence Hinds MD -[facility] Work Phone: Start: 01-19-2025 End: 01-19-2025 ambulatory [facility] Facility:[facility] Start: 12-01-2024 End: 12-01-2024 ambulatory ANGELINA FLEMING Facility:[facility] Start: 12-01-2024 End: 12-01-2024 Patient encounter procedure Angelina Arnoldag Work Phone: Podiatry Comment on above: Onychomycosis (Prima ry Dx); Pain in toe of right foot; Pain in toe of left foot; Type 2 diabetes, controlled, with peripheral neuropathy (HCC); Callus of foot Start: 11-27-2024 End: 11-27-2024 ambulatory SANDRA COOMBS Facility:[facility] Start: 11-27-2024 End: 11-27-2024 Patient encounter procedure Sandra Coombs APRN.FLAGSETTER Work Phone: [facility] [place] Comment on above: Medicare annual well ness visit, subsequent (Primary Dx); Type 2 diabetes, controlled, with peripheral neuropathy (HCC); Essential hypertension; Hyperlipidemia, unspecified hyperlipidemia type; Encounter for immunization Start: 11-22-2024 End: 11-22-2024 ambulatory FITZ WALTERS Facility:[facility] Start: 10-17-2024 End: 10-17-[address] 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) Start: 04-17-2024 Refill Fitz ham MD Work Phone: [facility] [place] Comment on above: Refill Request Start: 02-24-2024 Refill Fitz ham MD Work Phone: [facility] [place] Comment on above: Refill Request Start: 02-18-2024 Refill Fitz ham MD Work Phone: [facility] [place] Comment on above: Refill Request Start: 01-20-2024 End: 01-20-2024 ambulatory [facility] Work Phone: Start: 01-20-2024 End: 01-20-2024 Patient encounter procedure [facility] Work Phone: Start: 01-13-2024 End: 01-13-2024 Patient encounter procedure Angelina Lonnie Work Phone: Podiatry Comment on above: Onychomycosis (Prima ry Dx); Pain in toe of right foot; Pain in toe of left foot; Type 2 diabetes, controlled, with peripheral neuropathy (HCC); Callus of foot Start: 01-03-2024 ambulatory Fitz ham MD Work Phone: [facility] [place] Comment on above: Epistaxis Start: 10-14-2023 End: 10-14-2023 Patient encounter procedure [facility] Work Phone: Start: 09-17-2023 End: 09-17-2023 Patient encounter procedure Angelina Lonnie Work Phone: Podiatry Comment on above: Onychomycosis (Prima ry Dx); Pain in toe of right foot; Pain in toe of left foot; Type 2 diabetes, controlled, with peripheral neuropathy (HCC) Start: 07-16-2023 End: 07-16-[address] Fitz Walters Work Phone: [facility] Work Phone: Start: 07-16-2023 End: 07-16-[address] Fitz Walters Work Phone: [facility] Work Phone: Start: 06-08-2023 End: 06-08-[address] Fitz Walters Work Phone: [facility] [facility] Work Phone: Start: 06-08-2023 End: 06-08-[address] Fitz Walters Work Phone: [facility] Work Phone: Start: 06-08-2023 End: 06-08-[address] Fitz Walters Work Phone: [facility] Neurology Work Phone: Start: 05-24-2023 Telephone encounter Fitz stephens MD Work Phone: [facility] [place] Comment on above: Results Start: 05-17-2023 End: 05-17-2023 Patient encounter procedure Fitz Walters MD Work Phone: [facility] [place] Comment on above: Type 2 diabetes, con trolled, with peripheral neuropathy (HCC) (Primary Dx); Essential hypertension; Dysuria; Generalized osteoarthrosis Start: 05-05-2023 Telephone encounter Fitz stephens MD Work Phone: [facility] [place] Comment on above: Orders Start: 04-14-2023 Refill Fitz ham MD Work Phone: [facility] [place] Comment on above: Refill Request Start: 03-15-2023 End: 03-15-[address] Fitz Walters Work Phone: [facility] Work Phone: Start: 03-15-2023 End: 03-15-[address] Fitz Walters Work Phone: [facility] Start: 03-08-2023 End: 03-08-[address] Fitz Walters Work Phone: [facility] Neurology Start: 02-16-2023 End: 02-16-[address] Fitz Walters Work Phone: [facility] Endocrinology Start: 02-12-2023 Telephone encounter Lisa Nellie Jackson APRN.FLAGSETTER Work Phone: [facility] Comment on above: Results Start: 02-10-2023 End: 02-10-2023 Patient encounter procedure Milagros Gramajo TURN LASTER.FLAGSETTER Work Phone: [facility] Comment on above: Urinary frequency (P rimary Dx); Acute cystitis with hematuria Start: 02-09-2023 Telephone encounter Fitz stephens MD Work Phone: [facility] [place] Comment on above: Patient Update Start: 02-03-2023 Refill Fitz ham MD Work Phone: [facility] Comment on above: Refill Request Start: 02-02-2023 End: 02-02-[address] Fitz Walters Work Phone: [facility] Work Phone: Start: 02-02-2023 End: 02-02-[address] Fitz Walters Work Phone: [facility] Start: 02-02-2023 End: 02-02-[address] Fitz Walters Work Phone: [facility] Neurology Start: 12-24-2022 End: 12-24-2022 ambulatory [facility] Work Phone: Start: 12-24-2022 End: 12-24-2022 Patient encounter procedure [facility] Start: 11-10-2022 End: 11-10-2022 Patient encounter procedure Sandra Mahoney APRN.FLAGSETTER Work Phone: [facility] [place] Comment on above: Medicare annual well ness visit, subsequent (Primary Dx); Encounter for immunization Start: 09-17-2022 Telephone encounter Fitz stephens MD Work Phone: [facility] [place] Comment on above: [facility] requesting records Start: 09-14-2022 Telephone encounter Sandra Older TURN LASTER.FLAGSETTER Work Phone: [facility] [place] Comment on above: Results Start: 08-28-2022 Telephone encounter Sandra Older TURN LASTER.FLAGSETTER Work Phone: [facility] [place] Comment on above: Results Start: 08-25-2022 Telephone encounter Fitz stephens MD Work Phone: [facility] [place] Comment on above: Results Start: 08-24-2022 End: 08-24-[address] Fitz Walters Work Phone: [facility] Work Phone: Start: 08-24-2022 End: 08-24-[address] Fitz Walters Work Phone: [facility] Start: 08-10-2022 Orders Only Angelina del angel Work Phone: Podiatry Comment on above: Type 2 diabetes, con trolled, with peripheral neuropathy (HCC) (Primary Dx); Posterior tibial tendon dysfunction (PTTD) of right lower extremity Start: 07-31-2022 End: 07-31-2022 Patient encounter procedure Angelina Fleming Work Phone: Podiatry Comment on above: Onychomycosis [...] Fitz stephens MD Work Phone: [facility] [place] Comment on above: urine culture result s Start: 07-09-2022 End: 07-09-2022 Patient encounter procedure Fitz Walters MD Work Phone: [facility] [place] Comment on above: Urge incontinence of urine (Primary Dx); Nocturia; Medication side effects; Dysuria; Need for COVID-19 vaccine Start: 07-08-2022 ambulatory Fitz ham MD Work Phone: [facility] [place] Comment on above: Medication Problem Start: 06-12-2022 End: 06-12-[address] Fitz Walters Work Phone: [facility] Start: 06-05-2022 Telephone encounter Fitz stephens MD Work Phone: [facility] [place] Comment on above: Insurance Authorizat ion Start: 06-03-2022 Refill Fitz ham MD Work Phone: [facility] [place] Comment on above: Refill Request Start: 06-01-2022 Telephone encounter Fitz stephens MD Work Phone: [facility] [place] Comment on above: patient information Start: 06-01-2022 End: 06-01-[address] Fitz Walters Work Phone: [facility] Start: 06-01-2022 End: 06-01-[address] Fitz Walters Work Phone: [facility] Neurology Start: 05-27-2022 End: 05-27-2022 Patient encounter procedure [facility] Start: 05-07-2022 End: 05-07-2022 Patient encounter procedure Fitz Walters MD Work Phone: [facility] [place] Comment on above: Type 2 diabetes, con trolled, with peripheral neuropathy (HCC) (Primary Dx); Unsteady gait; Urge incontinence of urine; Nocturia; Hyperkalemia Start: 04-15-2022 Refill Fitz ham MD Work Phone: [facility] [place] Comment on above: Prescription Refills Start: 03-17-2022 Telephone encounter Fitz stephens MD Work Phone: [facility] [place] Comment on above: Opened In Error Start: 03-11-2022 Telephone encounter Sandra Mahoney APRN.CNP Work Phone: [facility] [place] Comment on above: Patient Question Start: 02-23-2022 End: 02-23-2022 Patient encounter procedure [facility] [place] Procedures Date Procedure Procedure Detail Performing Clinician Start: 07-18-[address] Fitz peterson MD Work Phone: Start: 07-18-[address] Edward Walters MD Work Phone: Start: 07-17-2025 MRI of brain without contrast Dr. Fitz Walters MD Work Phone: Start: 07-14-[address] Andrez Walters MD Work Phone: Start: 07-14-[address] Fitz ham MD Work Phone: Start: 07-14-[address] Fitz Walters MD Work Phone: Start: 07-14-2025 Iadna-dna/rna gi pthgn multiplex probe tq 6-11 Dr. Fitz Walters MD Work Phone: Start: 07-14-2025 Serum inorganic phosphate measurement Dr. Fitz Walters MD Work Phone: Start: 07-14-2025 Osmolality measurement, serum Dr. Fitz Walters MD Work Phone: Start: 07-14-2025 Computed tomography of abdomen and pelvis with intravenous contrast Dr. Fitz Walters MD Work Phone: Start: 07-13-2025 Methadone measurement, urine Dr. Fitz Walters MD Work Phone: Start: 07-13-2025 Urnls dip stick/tablet reagent auto microscopy Dr. Fitz Walters MD Work Phone: Start: 07-13-2025 X-ray of chest, PA and lateral views Dr. Fitz Walters MD Work Phone: Start: 07-13-[address] Edward Walters MD Work Phone: Start: 07-13-2025 CT of head without contrast Dr. Fitz stephens MD Work Phone: Start: 05-11-[address] Edward Walters MD Work Phone: Start: 05-10-2025 Urnls dip stick/tablet reagent auto microscopy Dr. Fitz Walters MD Work Phone: Start: 05-10-2025 X-ray of chest, PA and lateral views Dr. Fitz Walters MD Work Phone: Start: 05-10-[address] Edward Walters MD Work Phone: Start: 05-10-[address] Fitz Walters MD Work Phone: Start: 05-10-[address] Fitz Walters MD Work Phone: Start: 11-27-2024 [employer] COVID-19 VACCINE AGE 12+ YR (COMIRNATY) Sandra Coombs TURN LASTER.FLAGSETTER Work Phone: Start: 05-25-2024 Hemoglobin A1c/Hemoglobin.total in Blood Fitz Walters MD Work Phone: Start: 05-25-2024 Adult depression screening assessment Sandra Corin TURN LASTER.FLAGSETTER Work Phone: Start: 05-17-2023 Urnls dip stick/tablet rgnt auto w/o microscopy Fitz Walters MD Work Phone: Start: 02-10-2023 Urnls dip stick/tablet rgnt auto w/o microscopy Ashley Dawkins TURN LASTER.FLAGSETTER Work Phone: Start: 11-10-2022 INFLUENZA SEASONAL QUADRIVALENT HIGH DOSE AGE 65+ Sandra Older TURN LASTER.FLAGSETTER Work Phone: Start: 11-10-2022 [employer] COVID-19 BIVALENT BOOSTER VACCINE, AGE 12+ YR Sandra Older TURN LASTER.FLAGSETTER Work Phone: Start: 07-09-2022 [employer] COVID-19 VACCINE, AGE 12+ YR (REYES TOP) Fitz Walters MD Work Phone: Start: 07-09-2022 Urnls dip stick/tablet rgnt auto w/o microscopy Fitz Walters MD Work Phone: Start: 06-12-2022 MRI of brain with contrast Dr. Fitz peterson Work Phone: Plan of Treatment Date Care Activity Detail Author Start: 02-06-2026 Glaucoma screening Dilated Retinal Exam [facility] Start: 11-28-2025 End: 11-28-2025 Patient encounter procedure 11/28/2025 1:00 PM EST Office Visit [facility] [place] [address] [place], [place] [id number] Sandra Coombs M, TURN LASTER.FLAGSETTER [address] [place] [id number] Medicare Wellness Exam [facility] [place] Comment on above: Medicare Wellness Exam Start: 11-27-2025 RSV Vaccine (1 - 1-dose 75+ series) RSV Vaccine (1 - 1-dose 75+ series) [facility] Comment on above: Postponed from 2010 (Declined at t his time) Start: 11-23-2025 Hemoglobin A1c [facility] Start: 11-22-2025 Hepatitis B surface antibody level LDL Cholesterol [facility] Start: 10-30-2025 End: 10-30-2025 Patient encounter procedure 10/30/2025 2:00 PM EST Office Visit Podiatry [address] [place], [place] [id number] Angelina Fleming [address] [place], [place] [id number] 3 month follow up nail care Podiatry Comment on above: 3 month follow up nail care Start: 09-12-2025 Urine microalbumin profile [facility] Comment on above: Postponed from 09/12/2015 (Postponed To Appropriate Date) Start: 08-13-2025 End: 08-13-2025 ambulatory 08/13/2025 2:00 PM EDT OT/PT/Speech Visit [facility] [address] [place] [address] Babatunde Granados PT Muscular weakness [M62.81] [facility] Comment on above: Muscular weakness [M62.81] Start: 08-03-2025 End: 08-03-2025 Patient encounter procedure 08/03/2025 2:00 PM EDT Office Visit Podiatry [address] [place] [address] Angelina Fleming [address] [place] [address] 3 month follow up nail care Podiatry Comment on above: 3 month follow up nail care Start: 07-27-2025 End: 07-27-2025 Patient encounter procedure 07/27/2025 3:40 PM EDT Office Visit Podiatry [address] [place] [address] Angelina Fleming [address] [place] [address] 3 month follow up nail care Podiatry Comment on above: 3 month follow up nail care Start: 07-23-2025 End: 10-22-2025 Basic metabolic 2000 panel - Serum or Plasma [facility] Work Phone: Comment on above: Expected: 07/23/2025, Expires: Start: 07-23-2025 End: 10-22-2025 Magnesium [Mass/volume] in Serum or Plasma [facility] Comment on above: Expected: 07/23/2025, Expires: Start: 07-23-2025 End: 10-22-2025 Microalbumin/Creatinine [Mass Ratio] in Urine ALBUMIN/CREATININE RATIO, URINE Lab Routine Type 2 diabetes, controlled, with peripheral neuropathy (HCC) Expected: 07/23/2025, Expires: 10/22/2025 [facility] Comment on above: Expected: 07/23/2025, Expires: Start: 07-18-2025 Patient discharge [facility] Start: 07-17-2025 [facility] Start: 07-17-2025 Referral to gastroenterology service [facility] Start: 07-16-2025 Influenza vaccination Influenza Vaccine (#1) [facility] Start: 07-15-2025 Speech therapy assessment [facility] Start: 07-15-2025 [facility] Start: 07-14-2025 Application of intermittent pneumatic compression device [facility] Start: 07-14-2025 Ova and Parasites Ova and Parasites [facility] Start: 07-14-2025 Referral to curtain cutter [facility] Start: 07-14-2025 Serum inorganic phosphate measurement [facility] Start: 07-14-2025 Following clinical pathway protocol [facility] Start: 07-14-2025 Aspiration precautions [facility] Start: 07-14-2025 Assessment of risk of venous thromboembolism [facility] Start: 07-14-2025 Care regimes management [facility] Start: 07-14-2025 Incentive spirometry [facility] Start: 07-14-2025 Insertion of catheter into peripheral vein [facility] Start: 07-14-2025 Measuring intake and output [facility] Start: 07-14-2025 Notification of physician [facility] Start: 07-14-2025 Osmolality measurement, serum [facility] Start: 07-14-2025 Osmolality of Urine [facility] Start: 07-14-2025 Oxygen therapy [facility] Start: 07-14-2025 Providing care according to standard [facility] Start: 07-14-2025 Provision of activity privileges [facility] Start: 07-14-2025 Referral to occupational therapist [facility] Start: 07-14-2025 Referral to service [facility] Start: 07-14-2025 Taking nasal swab [facility] Start: 07-14-2025 Thyroid stimulating hormone measurement [facility] Start: 07-14-2025 Vitamin B12 measurement [facility] Start: 07-14-2025 End: 07-14-2025 [facility] Start: 07-14-2025 Respiratory pathogens DNA and RNA panel - Respiratory specimen by STACY with probe detection [facility] Start: 07-14-2025 Verification routine [facility] Start: 07-14-2025 Admission procedure [facility] Start: 07-13-2025 Abdomen/Pelvis W IV Cont ONLY Abdomen/Pelvis W IV Cont ONLY [facility] Start: 07-13-2025 CT Abdomen and Pelvis W contrast IV [facility] Start: 07-13-2025 Brain/Head without Contrast Brain/Head without Contrast [facility] Start: 07-13-2025 Chest PA and Lateral Chest PA and Lateral [facility] Start: 07-13-2025 CT Unspecified body region WO contrast [facility] Start: 07-13-2025 Electrocardiographic procedure [facility] Start: 07-13-2025 XR Chest PA and Lateral [facility] Start: 07-13-2025 [facility] Start: 05-29-2025 End: 05-29-2025 Patient encounter procedure 05/29/2025 1:00 PM EDT Office Visit [facility] [place] [address] [place] [address] Sandra Coombs, TURN LASTER.FLAGSETTER [address] [place] [address] 6 month follow-up/ cat bite check right lower leg [facility] [place] Comment on above: 6 month follow-up/ cat bite check right lower leg Start: 05-27-2025 Covid-19 Vaccine (7 - Pfizer risk season) Covid-19 Vaccine (7 - Pfizer risk ) [facility] Start: 05-27-2025 End: 08-26-2025 Hemoglobin A1c in Blood HEMOGLOBIN A1C Lab Routine Type 2 diabetes, controlled, with peripheral neuropathy (HCC) Expected: 05/27/2025 (Approximate), Expires: 08/26/2025 [facility] Comment on above: Expected: 05/27/2025 (Approximate), Expi res: 08/26/2025 Start: 05-27-2025 End: 08-26-2025 Microalbumin/Creatinine [Mass Ratio] in Urine ALBUMIN/CREATININE RATIO, URINE Lab Routine Type 2 diabetes, controlled, with peripheral neuropathy (HCC) Expected: 05/27/2025 (Approximate), Expires: 08/26/2025 [facility] Work Phone: Comment on above: Expected: 05/27/2025 (Approximate), Expi res: 08/26/2025 Start: 05-25-2025 Anxiety Screening Anxiety Screening [facility] Start: 05-25-2025 Depression Screening Depression Screening [facility] Start: 05-24-2025 End: 05-24-2025 Patient encounter procedure 05/24/2025 3:20 PM EDT Office Visit [facility] [place] [address] [place], [place] [id number] Fitz Walters MD [address] [place], [place] [id number] 6 month follow-up [facility] [place] Comment on above: 6 month follow-up Start: 05-22-2025 Hemoglobin A1c measurement HbA1C [facility] Start: 05-12-2025 Patient discharge [facility] Start: 05-11-2025 [facility] Start: 05-10-2025 Following clinical pathway protocol [facility] Start: 05-10-2025 Assessment of risk of venous thromboembolism [facility] Start: 05-10-2025 Care regimes management [facility] Start: 05-10-2025 Elevation of affected extremity [facility] Start: 05-10-2025 Fall prevention [facility] Start: 05-10-2025 Incentive spirometry [facility] Start: 05-10-2025 Inhalation therapy procedure [facility] Start: 05-10-2025 Insertion of catheter into peripheral vein [facility] Start: 05-10-2025 Introduction of urinary catheter [facility] Start: 05-10-2025 Measuring intake and output [facility] Start: 05-10-2025 Notification of physician [facility] Start: 05-10-2025 Oxygen therapy [facility] Start: 05-10-2025 Providing care according to standard [facility] Start: 05-10-2025 Provision of activity privileges [facility] Start: 05-10-2025 Referral to occupational therapist [facility] Start: 05-10-2025 Referral to service [facility] Start: 05-10-2025 End: 05-10-2025 [facility] Start: 05-10-2025 Verification routine [facility] Start: 05-10-2025 End: 05-10-2025 [facility] Start: 05-10-2025 Hospital admission, emergency, from emergency room, medical nature [facility] Start: 05-10-2025 Admission procedure [facility] Start: 05-10-2025 [facility] Start: 05-10-2025 Bacteria identified in Blood by Culture Blood Culture [facility] Start: 05-10-2025 Bacteria identified in Urine by Culture Urine Culture [facility] Start: 05-10-2025 Urine culture [facility] Start: 03-02-2025 End: 03-02-2025 Patient encounter procedure Podiatry Comment on above: 3 month follow up nail care Start: 02-14-2025 Glaucoma screening Dilated Retinal Exam [facility] Start: 01-22-2025 Covid-19 Vaccine ( season) Covid-19 Vaccine ( season) [facility] Start: 01-12-2025 Diabetic foot examination Diabetic Foot Exam [facility] Start: 12-01-2024 End: 12-01-2024 Patient encounter procedure 12/01/2024 1:40 PM EST Office Visit Podiatry [address] [place] [address] Angelina Fleming [address] [address] [facility] F[facility]U Podiatry Comment on above: NAILCARE F/U Start: 11-27-2024 End: 11-27-2024 Patient encounter procedure 11/27/2024 2:00 PM EST Office Visit [facility] [place] [address] [place] [address] Sandra Coombs, TURN LASTER.FLAGSETTER [address] [place] [address] Annual Medicare Wellness/6 month follow-up [facility] [place] Comment on above: Annual Medicare Wellness/6 month follow- up Start: 11-25-2024 End: 02-24-2025 Basic metabolic 2000 panel - Serum or Plasma BASIC METABOLIC PANEL Lab Routine Type 2 diabetes, controlled, with peripheral neuropathy (HCC) Expected: 11/25/2024, Expires: 02/24/2025 [facility] Comment on above: Expected: 11/25/2024, Expires: Start: 11-25-2024 End: 02-24-2025 Hemoglobin A1c in Blood HEMOGLOBIN A1C Lab Routine Type 2 diabetes, controlled, with peripheral neuropathy (HCC) Expected: 11/25/2024, Expires: 02/24/2025 [facility] Comment on above: Expected: 11/25/2024, Expires: Start: 11-25-2024 Hemoglobin A1c measurement HbA1C [facility] Start: 11-25-2024 End: 02-24-2025 Lipid 1996 panel - Serum or Plasma LIPID PANEL BASIC Lab Routine Hyperlipidemia, unspecified hyperlipidemia type Expected: 11/25/2024, Expires: 02/24/2025 [facility] Comment on above: Expected: 11/25/2024, Expires: Start: 11-23-2024 Covid-19 Vaccine ( season) Covid-19 Vaccine ( season) [facility] Comment on above: Postponed from 11/16/2023 (Declined at t his time) Start: 11-23-2024 RSV Vaccine (1 - 1-dose 60+ series) RSV Vaccine (1 - 1-dose 60+ series) [facility] Comment on above: Postponed from 1995 (Declined at t his time) Start: 2024 Hepatitis B surface antibody level LDL Cholesterol [facility] Start: 09-17-2024 3 comp foot exam completed Diabetic Foot Exam [facility] Start: 09-17-2024 Diabetic foot examination Diabetic Foot Exam [facility] Start: 07-16-2024 Influenza vaccination Influenza Vaccine (#1) [facility] Start: 05-25-2024 End: 05-25-2024 Patient encounter procedure 05/25/2024 2:40 PM EDT Office Visit [facility] [place] [address] [place] [address] Fitz Walters MD [address] [place] [address] 6 month follow-up [facility] [place] Comment on above: 6 month follow-up Start: 05-25-2024 End: 08-24-2024 Microalbumin/Creatinine [Mass Ratio] in Urine ALBUMIN/CREATININE RATIO, URINE Lab Routine Type 2 diabetes, controlled, with peripheral neuropathy (HCC) Expected: 05/25/2024, Expires: 08/24/2024 [facility] Work Phone: Comment on above: Expected: 05/25/2024, Expires: Start: 05-19-2024 Hemoglobin A1c measurement HbA1C [facility] Start: 04-28-2024 End: 04-28-2024 Patient encounter procedure 04/28/2024 1:00 PM EDT Office Visit Podiatry [address] [place] [address] Angelina Fleming [address] [place] [address] 3 MONTH FOLLOW UP NAIL CARE Podiatry Comment on above: 3 MONTH FOLLOW UP NAIL CARE Start: 01-20-2024 Glaucoma screening Dilated Retinal Exam [facility] Start: 01-20-2024 Hepatitis C antibody, confirmatory test DILATED RETINAL EXAM [facility] Start: 11-17-2023 End: 01-17-2024 ALBUMIN/CREAT RATIO RND UR ALBUMIN/CREAT RATIO RND UR Lab Routine Type 2 diabetes, controlled, with peripheral neuropathy (HCC) Expected: 11/17/2023, Expires: 01/17/2024 [facility] Work Phone: Comment on above: Expected: 11/17/2023, Expires: Start: 11-17-2023 End: 01-17-2024 Comprehensive metabolic 2000 panel - Serum or Plasma COMP METABOLIC PANEL Lab Routine Type 2 diabetes, controlled, with peripheral neuropathy (HCC) Expected: 11/17/2023, Expires: 01/17/2024 [facility] Work Phone: Comment on above: Expected: 11/17/2023, Expires: Start: 11-17-2023 End: 01-17-2024 Hemoglobin A1c in Blood HGB A1C Lab Routine Type 2 diabetes, controlled, with peripheral neuropathy (HCC) Expected: 11/17/2023, Expires: 01/17/2024 [facility] Work Phone: Comment on above: Expected: 11/17/2023, Expires: Start: 11-17-2023 End: 01-17-2024 Lipid 1996 panel - Serum or Plasma LIPID PANEL BASIC Lab Routine Type 2 diabetes, controlled, with peripheral neuropathy (HCC) Expected: 11/17/2023, Expires: 01/17/2024 [facility] Work Phone: Comment on above: Expected: 11/17/2023, Expires: Start: 11-15-2023 Behavioral Health Screening Behavioral Health Screening [facility] Start: 11-13-2023 Hemoglobin A1c/Hemoglobin.total in Blood HBA1C [facility] Start: 10-29-2023 Hepatitis B screening URINE ALBUMIN:CREATININE RATIO [facility] Start: 10-29-2023 Hepatitis B surface antibody level LDL CHOLESTEROL [facility] Start: 07-29-2023 3 comp foot exam completed [facility] Start: 07-16-2023 Covid-19 Vaccine () Covid-19 Vaccine () [facility] Start: 07-16-2023 Influenza vaccination [facility] Start: 05-21-2023 Hepatitis C antibody, confirmatory test DILATED RETINAL EXAM [facility] Start: 05-05-2023 End: 07-05-2023 Hemoglobin A1c in Blood HGB A1C Lab Routine Type 2 diabetes, controlled, with peripheral neuropathy (HCC) Expected: 05/05/2023, Expires: 07/05/2023 [facility] Work Phone: Comment on above: Expected: 05/05/2023, Expires: 3 Start: 04-29-2023 Hemoglobin A1c/Hemoglobin.total in Blood HBA1C [facility] Start: 11-15-2022 ADVANCE DIRECTIVE DISCUSSION ADVANCE DIRECTIVE DISCUSSION [facility] Start: 11-15-2022 DEPRESSION ASSESSMENT DEPRESSION ASSESSMENT [facility] Start: 11-06-2022 End: 01-06-2023 ALBUMIN/CREAT RATIO RND UR ALBUMIN/CREAT RATIO RND UR Lab Routine Type 2 diabetes, controlled, with peripheral neuropathy (HCC) Expected: 11/06/2022, Expires: 01/06/2023 [facility] Work Phone: Comment on above: Expected: 11/06/2022, Expires: 3 Start: 11-06-2022 End: 01-06-2023 Comprehensive metabolic 2000 panel - Serum or Plasma COMP METABOLIC PANEL Lab Routine Type 2 diabetes, controlled, with peripheral neuropathy (HCC) Expected: 11/06/2022, Expires: 01/06/2023 [facility] Work Phone: Comment on above: Expected: 11/06/2022, Expires: 3 Start: 11-06-2022 End: 01-06-2023 Hemoglobin A1c in Blood HGB A1C Lab Routine Type 2 diabetes, controlled, with peripheral neuropathy (HCC) Expected: 11/06/2022, Expires: 01/06/2023 [facility] Work Phone: Comment on above: Expected: 11/06/2022, Expires: 3 Start: 11-06-2022 End: 01-06-2023 Lipid 1996 panel - Serum or Plasma LIPID PANEL BASIC Lab Routine Type 2 diabetes, controlled, with peripheral neuropathy (HCC) Expected: 11/06/2022, Expires: 01/06/2023 [facility] Work Phone: Comment on above: Expected: 11/06/2022, Expires: 3 Start: 10-31-2022 3 comp foot exam completed DIABETIC FOOT EXAM [facility] Start: 10-30-2022 Hemoglobin A1c/Hemoglobin.total in Blood HBA1C [facility] Start: 10-28-2022 Hepatitis B screening URINE ALBUMIN:CREATININE RATIO [facility] Start: 10-28-2022 Hepatitis B surface antibody level LDL CHOLESTEROL [facility] Start: 10-01-2022 COVID-19 VACCINE (4 - Booster for Pfizer series) COVID-19 VACCINE (4 - Booster for Pfizer series) [facility] Start: 09-03-2022 COVID-19 VACCINE (4 - Booster for Pfizer series) COVID-19 VACCINE (4 - Booster for Pfizer series) [facility] Start: 08-28-2022 End: 10-28-2022 25-hydroxyvitamin D3 [Mass/volume] in Serum or Plasma VITAMIN D 25 HYDROXY Lab Routine Hypercalcemia Expected: 08/28/2022, Expires: 10/28/2022 [facility] Work Phone: Comment on above: Expected: 08/28/2022, Expires: 2 Start: 08-28-2022 End: 10-28-2022 Calcium.ionized [Moles/volume] in Blood CALCIUM IONIZED BLOOD Lab Routine Hypercalcemia Expected: 08/28/2022, Expires: 10/28/2022 [facility] Work Phone: Comment on above: Expected: 08/28/2022, Expires: 2 Start: 08-28-2022 End: 10-28-2022 Parathyrin.intact [Mass/volume] in Serum or Plasma PTH INTACT BLD Lab Routine Hypercalcemia Expected: 08/28/2022, Expires: 10/28/2022 [facility] Work Phone: Comment on above: Expected: 08/28/2022, Expires: 2 Start: 08-25-2022 End: 10-25-2022 Calcium.ionized [Moles/volume] in Blood CALCIUM IONIZED BLOOD Lab Routine Hypercalcemia Expected: 08/25/2022, Expires: 10/25/2022 [facility] Work Phone: Comment on above: Expected: 08/25/2022, Expires: 2 Start: 08-25-2022 End: 10-25-2022 Parathyrin.intact [Mass/volume] in Serum or Plasma PTH INTACT BLD Lab Routine Hypercalcemia Expected: 08/25/2022, Expires: 10/25/2022 [facility] Work Phone: Comment on above: Expected: 08/25/2022, Expires: 2 Start: 07-16-2022 Influenza vaccination INFLUENZA (#1) [facility] Start: 07-01-2022 Hepatitis C antibody, confirmatory test DILATED RETINAL EXAM [facility] Start: 06-01-2022 Measurement of substance [facility] Work Phone: Start: 06-01-2022 Thiamine measurement [facility] Work Phone: Start: 06-01-2022 Vitamin D, 1,25-dihydroxy measurement [facility] Work Phone: Start: 04-28-2022 Hemoglobin A1c/Hemoglobin.total in Blood HBA1C [facility] Start: 11-15-2021 ADVANCE DIRECTIVE DISCUSSION ADVANCE DIRECTIVE DISCUSSION [facility] Start: 11-15-2021 DEPRESSION ASSESSMENT DEPRESSION ASSESSMENT [facility] Start: 04-24-2021 COVID-19 VACCINE (3 - Pfizer risk 4-dose series) [facility] Start: 04-24-2021 COVID-19 VACCINE (3 - Pfizer risk series) COVID-19 VACCINE (3 - Pfizer risk series) [facility] Start: 1995 Hepatitis B Vaccine (1 of 3 - Risk 3-dose series) Hepatitis B Vaccine (1 of 3 - Risk 3-dose series) [facility] Start: 1995 RSV Vaccine (1 - 1-dose 60+ series) RSV Vaccine (1 - 1-dose 60+ series) [facility] Alanine aminotransfe rase [Enzymatic activity/volume] in Serum or Plasma [facility] Alanine aminotransfe rase [Enzymatic activity/volume] in Serum or Plasma [facility] Albumin [Mass/volume ] in Serum or Plasma [facility] Albumin [Mass/volume ] in Serum or Plasma [facility] Alkaline phosphatase [Enzymatic activity/volume] in Serum or Plasma [facility] Alkaline phosphatase [Enzymatic activity/volume] in Serum or Plasma [facility] Amphetamines [Presen ce] in Urine by Screen method >1000 ng/mL [facility] Anion gap in Serum or Plasma [facility] Anion gap in Serum or Plasma [facility] Bacteria identified in Urine by Culture URINE CULTURE Microbiology Routine Dysuria 07/09/2022 4:03 PM EDT [facility] Work Phone: Bacteria identified in Urine by Culture URINE CULTURE Microbiology Routine Urinary frequency Ordered: 02/10/2023 [facility] Work Phone: Comment on above: Ordered: 02/10/2023 Bacteria identified in Urine by Culture URINE CULTURE Microbiology Routine Dysuria 05/17/2023 3:39 PM EDT [facility] Work Phone: Benzodiazepine measu rement, urine [facility] Bilirubin, total measurement [facility] Bilirubin, total measurement [facility] BUN/Creatinine ratio [facility] BUN/Creatinine ratio [facility] Calcium [Mass/volume ] in Serum or Plasma [facility] Calcium [Mass/volume ] in Serum or Plasma [facility] Carbon dioxide, tota l [Moles/volume] in Central venous blood [facility] Carbon dioxide, tota l [Moles/volume] in Central venous blood [facility] Cholesterol [Mass/vo lume] in Serum or Plasma [facility] Cholesterol in HDL [Mass/volume] in Serum or Plasma [facility] Cocaine measurement, urine W [facility] Creatinine [Mass/vol ume] in Serum or Plasma [facility] Creatinine [Mass/vol ume] in Serum or Plasma [facility] Erythrocyte mean cor puscular volume determination [facility] Erythrocyte mean cor puscular volume determination [facility] Ethanol [Mass/volume ] in Serum or Plasma [facility] fentaNYL [Presence] in Urine by Screen method [facility] Folate [Moles/volume ] in Serum or Plasma [facility] Glucose [Mass/volume ] in Serum or Plasma [facility] Glucose [Mass/volume ] in Serum or Plasma [facility] Hematocrit [Volume F raction] of Blood [facility] Hematocrit [Volume F raction] of Blood [facility] Hemoglobin [Mass/vol ume] in Blood [facility] Hemoglobin [Mass/vol ume] in Blood [facility] Hemoglobin A1c/Hemoglobin.total in Blood [facility] [place] and lambda light chains [facility] Work Phone: Leukocytes [#/volume ] in Blood [facility] Leukocytes [#/volume ] in Blood [facility] Low density lipoprot ein cholesterol measurement [facility] Magnesium measurement [facility] Mean corpuscular hem oglobin concentration determination [facility] Mean corpuscular hem oglobin concentration determination [facility] Mean corpuscular hem oglobin determination [facility] Mean corpuscular hem oglobin determination [facility] Measurement of renal function [facility] Measurement of renal function [facility] Measurement of substance [facility] Work Phone: Methadone measurement, urine [facility] MR Brain WO and W contrast IV [facility] Work Phone: Neutrophil count [facility] Neutrophil count [facility] Neutrophil percent differential count [facility] Neutrophil percent differential count [facility] Ova OR parasites identification [facility] Patient referral [facility] Work Phone: Phencyclidine [Prese nce] in Urine [facility] Platelets [#/volume] in Blood [facility] Platelets [#/volume] in Blood [facility] Potassium measurement [facility] Potassium measurement [facility] Red blood cell count [facility] Red blood cell count [facility] Red cell distributio n width determination [facility] Red cell distributio n width determination [facility] Serum chloride measurement [facility] Serum chloride measurement [facility] Sodium measurement [facility] Sodium measurement [facility] Thiamine measurement [facility] Work Phone: Total cholesterol:HD L ratio measurement [facility] Total protein measurement [facility] Total protein measurement [facility] Triglycerides measurement [facility] Urea nitrogen [Mass/ volume] in Serum or Plasma [facility] Urea nitrogen [Mass/ volume] in Serum or Plasma [facility] Urine cannabinoid measurement [facility] Urine opiate measurement [facility] Vitamin D, 1,25-dihy droxy measurement [facility] Work Phone: VLDL cholesterol measurement [facility] Immunizations Immunization Date Immunization Notes Care Provider [facility] 07-23-2025 influenza, high dose seasonal, preservative-free Fitz Walters MD Work Phone: [facility] 11-27-2024 COVID-19 vaccine, ag e 12+ yr (PFIZER-BIONTECH COMIRNATY) Sandra Coombs [employer] Work Phone: [facility] 11-27-2024 influenza, high dose seasonal, preservative-free Sandra Coombs [employer] Work Phone: [facility] 11-27-2024 influenza virus vaccine, unspecified formulation Sandra Coombs [employer] Work Phone: [facility] 09-21-2023 COVID-19 vaccine, ag e 12+ yr, bivalent (PFIZER-BIONTECH) Fitz Walters MD Work Phone: [facility] Work Phone: 09-21-2023 Influenza High-Dose Quadrivalent Dr. Fitz Walters MD Work Phone: [facility] 09-21-2023 influenza, high dose seasonal, preservative-free Fitz Walters MD Work Phone: [facility] Work Phone: 09-21-2023 Pfizer Covid-19 (Comirnaty) Dr. Fitz Walters MD Work Phone: [facility] 09-21-2023 influenza virus vaccine, unspecified formulation Fitz Walters MD Work Phone: [facility] 11-10-2022 COVID-19 booster vaccine, age 12+ yr, bivalent (PFIZER-BIONTECH) Sandra Older [employer] Work Phone: [facility] 11-10-2022 influenza, high-dose , quadrivalent vaccine (FLUZONE HIGH DOSE QUADRIVALENT) Sandra Older [employer] Work Phone: [facility] 11-10-2022 influenza virus vaccine, unspecified formulation Angelina Fleming Work Phone: [facility] 07-09-2022 Covid (Pfizer) Dr. Fitz peterson MD Work Phone: [facility] 07-09-2022 COVID-19 vaccine, ag e 12+ yr (PFIZER-BIONTECH - [facility]) Fitz Walters MD Work Phone: [facility] Work Phone: 09-29-2021 influenza, high-dose , quadrivalent vaccine (FLUZONE HIGH DOSE QUADRIVALENT) Sandra Older [employer] Work Phone: [facility] Work Phone: 03-27-2021 Covid (Pfizer) Dr. Fitz peterson MD Work Phone: [facility] 03-03-2021 Covid (Pfizer) Dr. Fitz peterson MD Work Phone: [facility] 07-31-2020 influenza, high-dose , quadrivalent vaccine (FLUZONE HIGH DOSE QUADRIVALENT) Sandra Older [employer] Work Phone: [facility] Work Phone: 06-29-2020 zoster vaccine recombinant Sandra Older [employer] Work Phone: [facility] Work Phone: 09-25-2019 zoster vaccine recombinant Sandra Older [employer] Work Phone: [facility] Work Phone: 09-13-2019 influenza, high dose seasonal, preservative-free Sandra Older [employer] Work Phone: [facility] Work Phone: 09-13-2019 pneumococcal polysaccharide vaccine, 23 valent Sandra Older [employer] Work Phone: [facility] Work Phone: 09-08-2018 influenza, high dose seasonal, preservative-free Sandra Older [employer] Work Phone: [facility] 10-28-2017 influenza, seasonal, injectable Sandra Older [employer] Work Phone: [facility] Work Phone: 10-28-2017 influenza, seasonal, injectable, preservative free Dr. Fitz Walters MD Work Phone: [facility] 10-20-2016 influenza, high dose seasonal, preservative-free Sandra Older [employer] Work Phone: [facility] 11-02-2015 pneumococcal conjuga te vaccine, 13 valent Sandra Older [employer] Work Phone: [facility] Work Phone: 10-08-2015 zoster vaccine, live Sandra Old er [employer] Work Phone: [facility] 09-11-2015 influenza, high dose seasonal, preservative-free Sandra Older [employer] Work Phone: [facility] 09-11-2015 tetanus and diphther ia toxoids, adsorbed, preservative free, for adult use (2 Lf of tetanus toxoid and 2 Lf of diphtheria toxoid) Dr. Fitz Walters MD Work Phone: [facility] 09-11-2015 tetanus and diphther ia toxoids, adsorbed, preservative free, for adult use (5 Lf of tetanus toxoid and 2 Lf of diphtheria toxoid) Sandra Older [employer] Work Phone: [facility] 09-04-2014 influenza, injectabl e, quadrivalent, preservative free Dr. Fitz Walters MD Work Phone: [facility] 09-04-2014 influenza, seasonal, injectable Sandra Older [employer] Work Phone: [facility] 11-01-2013 influenza virus vaccine, unspecified formulation Sandra Older [employer] Work Phone: [facility] 10-28-2012 influenza virus vaccine, unspecified formulation Sandra Older [employer] Work Phone: [facility] Work Phone: 10-06-2011 influenza virus vaccine, unspecified formulation Sandra Older [employer] Work Phone: [facility] Work Phone: 03-31-2011 tuberculin skin test ; purified protein derivative solution, intradermal Sandra Corin [employer] Work Phone: [facility] 09-25-2010 influenza virus vaccine, unspecified formulation Sandra Older [employer] Work Phone: [facility] Work Phone: 07-22-2010 tuberculin skin test ; purified protein derivative solution, intradermal Sandra Corin [employer] Work Phone: [facility] Work Phone: 10-08-2009 influenza virus vaccine, unspecified formulation Sandra Older [facility] [employer] Work Phone: [facility] Work Phone: 09-20-2007 influenza virus vaccine, unspecified formulation Sandra Older [employer] Work Phone: [facility] Work Phone: 09-08-2005 influenza virus vaccine, unspecified formulation Sandra Older [employer] Work Phone: [facility] Work Phone: Payers Date Payer Category Payer Self-pay [id number] 2006 Medicare [employer] THP [employer] MDCR HMO [id number] 2006-Present [phone] [place] [id number] [facility] [id number] 01-13-2006 Medicare [employer] MEDICARE THP SECURECARE MDCR O [id number] 01/13/2006-Present [phone] [place] [id number] [id number] 01-13-2006 Medicare (Managed Care) THP SECU RECARE MDCR O [id number] 01-13-2006 Medicare [id number] Unknown [id number] .2.462 Unknown [id number] 2.840.1.937970.3.579 .2.462 Unknown [id number] 2.840.1.439711.3.579 .2.462 Unknown [id number] 2.16840.1.778818.3.579 .2.462 Unknown [id number] 2.16840.1.216503.3.579 .2.462 Unknown [id number] 2.16840.1.065709.3.579 .2.462 Unknown [id number] 2.16840.1.900293.3.579 .2.462 Unknown [id number] 2.16840.1.745464.3.579 .2.462 Unknown [id number] 2.16.840.1.926713.3.579 .2.462 Unknown [id number] 2.16.840.1.284671.3.579 .2.462 Unknown [id number] 2.16.840.1.677341.3.579 .2.462 Unknown [id number] 2.16.840.1.098029.3.579 .2.462 Unknown [id number] 2.16.840.1.385944.3.579 .2.462 Unknown [id number] 2.840.1.464836.3.579 .2.462 Unknown [id number] 2.16840.1.268786.3.579 .2.462 Unknown [id number] 2.840.1.803471.3.579 .2.462 Unknown [id number] 2.840.1.969227.3.579 .2.462 Unknown [id number] 2.840.1.003091.3.579 .2.462 Unknown [id number] 2.840.1.264125.3.579 .2.462 Unknown [id number] 2.16840.1.960642.3.579 .2.462 Unknown [id number] 2.840.1.638247.3.579 .2.462 Unknown [id number] 2.840.1.315470.3.579 .2.462 Unknown [id number] 2.840.1.967381.3.579 .2.462 Unknown [id number] 2.840.1.455077.3.579 .2.462 Unknown [id number] 2.840.1.410310.3.579 .2.462 Social History Date Type Detail Facility Start: 05-11-2013 End: 11-27-2024 Tobacco smoking status [facility] Ex-smoker [facility] Work Phone: Start: 09-02-1975 End: 09-02-1990 History of tobacco use Current smoker [facility] Work Phone: Start: 01-29-2022 End: 11-27-2024 Alcohol intake Current non-drinker of alcohol (finding) [facility] Start: 05-11-2013 History SDOH Alcohol Comment Wine on few occasions a year. [facility] Start: 1935 Sex Assigned At Female [facility] Start: 04-27-2022 End: 07-31-2022 Exposure to SARS-CoV-2 (event) Not sure [facility] Work Phone: Start: 06-01-2022 End: 03-08-2023 Tobacco smoking status PRIS Unknown if ever smoked [facility] Start: 09-02-1975 End: 09-02-1990 History of tobacco use Cigarette Smoker [facility] Work Phone: Start: 05-11-2013 End: 05-17-2023 Cigarettes smoked current (pack per day) - Reported 1 [facility] Work Phone: Start: 05-11-2013 End: 11-27-2024 Tobacco use and exposure Smokeless tobacco non-user [facility] Work Phone: Start: 05-17-2023 End: 11-27-2024 Tobacco use panel [facility] Work Phone: Start: 10-16-2012 Adult Depression Screening Assessment 0 [facility] Work Phone: Start: 07-08-2020 Gender identity Identifies as female gender (finding) [facility] Start: 07-08-2020 Sexual orientation Heterosexual (fin ding) [facility] How often to you hav e a drink containing alcohol? Never [facility] Work Phone: Start: 12-01-2024 End: 05-23-2025 Alcoholic beverage intake Ex-drinker (finding) [facility] Start: 02-01-2025 Sex Female (finding) [facility] Medical Equipment Procedure Code Equipment Code Equipment Origin al Text Equipment Identifier Dates [id number], [id number] Start: 12-17-2021 Comment on above: Test blood sugar onc e daily. Dx: E11.42. Insulin: No. Test blood sugar(s) 1 times daily. Dx: Other DM Code E11.42 , Insulin: No Goals Date Patient Goal Desired Activity /State Functional Status Date Assessment Result Facility 07-18-2025 Functional status Bathroom Privilege [facility] Work Phone: 05-12-2025 Functional status Ambulates [facility] Work Phone: 05-11-2025 Functional status Tolerates Activity Well [facility] Work Phone: 06-05-2015 Are you deaf, or do you have serious difficulty hearing No 06/05/2015 2:35 PM Valerie Mckinney RN No [facility] 06-05-2015 Are you blind, or do you have serious difficulty seeing, even when wearing glasses No 06/05/2015 2:35 PM Valerie Mckinney RN [facility] 06-05-2015 Do you have serious difficulty walking or climbing stairs No 06/05/2015 2:35 PM Valerie Mckinney RN No [facility] 06-05-2015 Do you have difficul ty dressing or bathing No 06/05/2015 2:35 PM Valerie Mckinney RN [facility] 06-05-2015 Because of a physica l, mental, or emotional condition, do you have difficulty doing errands alone such as visiting a physician's office or shopping No 06/05/2015 2:35 PM Valerie Mckinney RN No [facility] Mental Status Date Assessment Result Facility 07-18-2025 Cognitive function Voice/Name [facility] Work Phone: 07-13-2025 Cognitive function Voice/Name [facility] Work Phone: 05-12-2025 Cognitive function Voice/Name [facility] Work Phone: 06-05-2015 Because of a physica l, mental, or emotional condition, do you have serious difficulty concentrating, remembering, or making decisions No 06/05/2015 2:35 PM Valerie Mckinney RN No [facility] Clinical Notes 03-12-2016 to 09-19-2025 Angelina Fleming - 07/27/2025 3:16 PM EDTSHilary brower LPN - 07/27/2025 2:40 PM EDTPatient Fitz Johnston MD - 07/23/2025 2:53 PM EDT Note Date & Type Note Facility 09-19-2025 Note [facility] 09-17-2025 Note HNO ID: [id number] Author: CAL SHELDON MD Service: ? Author Type: Physician Type: Progress Notes Filed: 09/17/2025 10:44 Note Text: URGENT CARE [facility] Yann Adair is a 89 year old female. Patient presents with: Shortness of Breath: Shortness of Breath and chest congestion x 3 days Patient presents with concern for having low oxygen. She has noticed a significant decrease in her duration on exertion over the last couple days. She went to the emergency room 2 days ago with a 3-hour left sided bloody nose. Her daughter gave her Afrin and the bleeding had stopped by the time of evaluation. She was able to ambulate into the ER using her walker at her baseline and since then has worsening dyspnea. She feels short of breath at rest and has difficulty walking between rooms now. She has had no return of bloody nose. She has a cough from some phlegm in her throat but otherwise denies any significant nasal congestion, rhinorrhea, chest congestion, or fever. She denies chest pain. She feels her heart race when she tries to exert herself. Review of Systems Objective BP 110/68 Pulse 75 Temp 36.4 ?C (97.6 ?F) (Tympanic) Resp (!) 148 Wt 62 kg (136 lb 11 oz) SpO2 98% BMI 25.20 kg/m? Physical Exam Constitutional: General: She is not in acute distress. Comments: Sitting in wheelchair HENT: Right Ear: Decreased hearing noted. There is impacted cerumen. Left Ear: Tympanic membrane and ear canal normal. Decreased hearing noted. Nose: Rhinorrhea (Sniffing some rhinorrhea, no active bleeding or identified ulcerations on exam) present. No congestion. Right Sinus: No maxillary sinus tenderness or frontal sinus tenderness. Left Sinus: No maxillary sinus tenderness or frontal sinus tenderness. Mouth/Throat: Mouth: Mucous membranes are moist. Pharynx: No oropharyngeal exudate or posterior oropharyngeal erythema. Eyes: Extraocular Movements: Extraocular movements intact. Conjunctiva/sclera: Conjunctivae normal. Pupils: Pupils are equal, round, and reactive to light. Cardiovascular: Rate and Rhythm: Normal rate and regular rhythm. Heart sounds: No murmur heard. Pulmonary: Effort: No respiratory distress (Slight conversational dyspnea). Breath sounds: No wheezing, rhonchi or rales. Musculoskeletal: Cervical back: Neck supple. Lymphadenopathy: Cervical: No cervical adenopathy. Neurological: Mental Status: She is alert. {ASSESSMENT/PLAN: 1. ORTEGA (dyspnea on exertion) - ICD9: 786.09, ICD10: R06.09 No obvious source of exertional dyspnea by history or exam. Patient directed to the emergency room for further evaluation. Her daughter will take her back to [facility]. Cal Sheldon MD Differential Diagnoses - Anemia - Acute coronary syndrome - CHF - Pulmonary embolism Procedures [facility] 09-07-2025 Note HNO ID: [id number] Author: KENZIE ANAYA MD Service: ? Author Type: Physician Type: Progress Notes Filed: 09/07/2025 14:22 Note Text: URGENT CARE DAVID Luther Adair is a 89 year old female. Patient presents with: Urinary Tract Infection: Burning with urination x3 days Pt is here with 3 day hx of dysuria freq and urgency no abd/flank pain no fever or chills no N/V Review of Systems Constitutional: Negative for chills, fatigue and fever. Gastrointestinal: Negative for abdominal pain, nausea and vomiting. Genitourinary: Positive for dysuria, frequency and urgency. Negative for flank pain and hematuria. Objective BP 131/77 Pulse 78 Resp 18 Wt 62 kg (136 lb 11 oz) SpO2 95% BMI 25.20 kg/m? Physical Exam Vitals and nursing note reviewed. Constitutional: Appearance: Normal appearance. She is not ill-appearing. Abdominal: General: Bowel sounds are normal. Palpations: Abdomen is soft. Tenderness: There is no abdominal tenderness. There is no right CVA tenderness, left CVA tenderness, guarding or rebound. Neurological: Mental Status: She is alert and oriented to person, place, and time. Psychiatric: Mood and Affect: Mood normal. Behavior: Behavior normal. Results for orders placed or performed in visit on 09/07/25 UA DIP, URINE (POC) Result Value Ref Range GLUCOSE UA (POCT) Negative Negative mg/dL BILIRUBIN UA (POCT) Negative Negative KETONE UA (POCT) Negative Negative mg/dL SPECIFIC GRAVITY UA (POCT) 1.015 1.005 - 1.030 HEMOGLOBIN/BLOOD UA (POCT) Moderate (A) Negative PH UA (POCT) 5.5 4.5 - 8.0 PROTEIN UA (POCT) Trace (A) Negative mg/dL UROBILINOGEN UA (POCT) 1.0 Normal E.U./dL NITRITE UA (POCT) Negative Negative LEUKOCYTES UA (POCT) Moderate (A) Negative COLOR UA (POCT) Yellow CLARITY UA (POCT) Cloudy {ASSESSMENT/PLAN: 1. Burning with urination - ICD9: 788.1, ICD10: R30.0 (primary diagnosis) - UA DIP, URINE (POC - BACTERIAL CULTURE, URINE 2. Acute cystitis without hematuria - ICD9: 595.0, ICD10: N30.00 Return here as needed await culture results - CEPHALEXIN 500 MG CAPSULE Kenzie Anaya MD History and Record Review External record(s) reviewed: prior outpatient record. Differential Diagnoses - uti is more likely for the following reason(s): suggested by HANDP and consistent with laboratory studies - pyelonephritis is less likely for the following reason(s): no fever no abd/flank pain, HANDP not suggestive Disposition The patient was discharged. Procedures [facility] 07-27-2025 Note HNO ID: [id number] Author: ANGELINA FLEMING, ? Service: ? Author Type: Physician Type: Progress Notes Filed: 07/28/2025 08:25 Note Text: Last saw pcp: 07/23/25 Subjective: Patient presents to clinic c/o painful toenails. They state that the nails are especially painful with shoe gear and pressure. Patient states that nails 1-5 b/l are painful. Patient admits to being diabetic. Patient has painful callus of left medial instep. No other pedal complaints at this time. Patient states no change in medications or medical history since last visit. Objective: Patient presents to clinic ambulating in sneakers Vasc: DP and PT pulses are faintly [...] growth is absent bilateral. There are callus ot left medial instep. no ulcerations, scars, verruca or other lesions noted. Ortho: Muscle strength is 5/5 for all pedal groups tested. Ankle joint DF is decreased with the knee extended with no pain or crepitus noted. 1st MPJ ROM is decreased bilateral. Flatfoot is noted to b/l feet Assessment: (B35.1) Onychomycosis (primary encounter diagnosis) (M79.674) Pain in toe of right foot (M79.675) Pain in toe of left foot (E11.42) Type 2 diabetes, controlled, with peripheral neuropathy (HCC) (L84) Callus of foot Plan: Patient was seen and evaluated. Nails 1-5 bilateral were debrided in length and thickness. Callus reduced to left foot with dremmel and 15 blade. Gel padding dispensed for callus. Patient was instructed on the continued importance of diabetic foot care along with proper diet and keeping their blood sugar under control to prevent complications. I stressed the importance of avoiding barefoot walking, wearing good shoes and inspection of feet. Patient is to RTC in 3-4 months. Angelina Fleming DPM [facility] 07-27-2025 History of Present illness Narrative Last saw pcp: 07/23/25 Subjective: Patient presents to clinic c/o painful toenails. They state that the nails are especially painful with shoe gear and pressure. Patient states that nails 1-5 b/l are painful. Patient admits to being diabetic. Patient has painful callus of left medial instep. No other pedal complaints at this time. Patient states no change in medications or medical history since last visit. Objective: Patient presents to clinic ambulating in [facility] Vasc: DP and PT pulses are faintly [...] growth is absent bilateral. There are callus ot left medial instep. no ulcerations, scars, verruca or other lesions noted. Ortho: Muscle strength is 5/5 for all pedal groups tested. Ankle joint DF is decreased with the knee extended with no pain or crepitus noted. 1st MPJ ROM is decreased bilateral. Flatfoot is noted to b/l feet Assessment: (B35.1) Onychomycosis (primary encounter diagnosis) (M79.674) Pain in toe of right foot (M79.675) Pain in toe of left foot (E11.42) Type 2 diabetes, controlled, with peripheral neuropathy (HCC) (L84) Callus of foot Plan: Patient was seen and evaluated. Nails 1-5 bilateral were debrided in length and thickness. Callus reduced to left foot with dremmel and 15 blade. Gel padding dispensed for callus. Patient was instructed on the continued importance of diabetic foot care along with proper diet and keeping their blood sugar under control to prevent complications. I stressed the importance of avoiding barefoot walking, wearing good shoes and inspection of feet. Patient is to RTC in 3-4 months. nAgelina Fleming DPM AMB ROOMING INTAKE FLOWSHEET DATA Patient presents with: Right Foot - Established Patient, Pain: Nail Care Left Foot - Established Patient, Pain: Nail Care Hilary Skaggs LPN documented in this encounter [facility] 09-12-2025 Instructions Angelina Fleming - 07/27/2025 3:16 PM EDT Diabetes Foot Care Instructions When [...] or sore from your shoes, do not "pop" it. Apply a bandage and wear a different pair of shoes. Take Care of Your Toenails Cut toenails after bathing, when they are soft. Cut toenails straight across and smooth with a nail file. Avoid cutting into the corners of toes. Do not cut cuticles. If you have neuropathy (or decreased sensation in your feet) a general assignment reporter should always cut your toenails. Be Careful [...] your shoes are too tight. Perform the "footwear test" described below. Footwear Test Use this simple [...] Go to your health care provider or general assignment reporter to treat these conditions. documented in this encounter [facility] 07-27-2025 Note HNO ID: [id number] Author: HILARY SKAGGS LPN Service: ? Author Type: Licensed Nurse Type: Progress Notes Filed: 07/28/2025 08:25 Note Text: AMB ROOMING INTAKE FLOWSHEET DATA Patient presents with: Right Foot - Established Patient, Pain: Nail Care Left Foot - Established Patient, Pain: Nail Care Hilary ALMAS Skaggs [facility] 07-23-2025 Note HNO ID: [id number] Author: FITZ WALTERS MD Service: ? Author Type: Physician Type: Progress Notes Filed: 07/23/2025 17:10 Note Text: Subjective Yann Adair is a 89 year old female here with her daughter. Patient presents with: Hospital F/U Yann was admitted 07/14 to 07/18/25 for acute gastroenteritis, Campylobacter infection, metabolic encephalopathy, hyponatremia, hypomagnesemia and general debility. She was treated with IV azithromycin. GI was consulted and EGD was done on 07/18/25 showing gastritis. Nephrology was consulted due to hyponatremia. CT of the abdomen and pelvis was consistent with enterocolitis. 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 She was better other than ankle edema. [facility] also called that she tested + for Blastocystis hominis in the stool OANDP. However, patient was asymptomatic at this time. The history is provided by medical records, the patient and a relative. Review of Systems Constitutional: Negative for fatigue and fever. Respiratory: Negative for shortness of breath. Cardiovascular: Positive for leg swelling. Negative for chest pain and palpitations. Gastrointestinal: Positive for constipation. Negative for abdominal pain, blood in stool, diarrhea, nausea and vomiting. Genitourinary: Negative for dysuria. Skin: Positive for wound. Neurological: Positive for weakness. 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 sodium chloride soluble tablet 1 g 1 g three times a day. mirabegron (MYRBETRIQ) 25 mg Tb24 daily at bedtime. losartan (COZAAR) 25 mg tablet Take 1 tablet by mouth once daily. For high blood pressure. atorvastatin (LIPITOR) 10 mg tablet Take 1 tablet by mouth once daily. metFORMIN (GLUCOPHAGE) 500 mg tablet Take 1 tablet by mouth two times a day with meals. ROCKLATAN 0.02-0.005 % ophthalmic solution Use 1 Drop in both eyes daily at bedtime. cyanocobalamin, vitamin B-12, (VITAMIN B12 ORAL) Take 1 tablet by mouth once daily. dorzolamide-timolol (COSOPT) 22.3-6.8 mg/mL ophthalmic solution Use 1 Drop in both eyes twice daily. methotrexate 2.5 mg tablet 6 tabs [...] facility-administered medications for this visit. Objective BP 114/70 (BP Site: Right Arm, BP Position: Sitting, BP Cuff Size: Large Adult) Pulse 80 Temp 36.8 ?C (98.3 ?F) (Left Tympanic) Wt 63.2 kg (139 lb 5.3 oz) BMI 25.69 kg/m? Physical Exam Constitutional: General: She is not in acute distress. HENT: Head: Normocephalic. Nose: No rhinorrhea. Eyes: General: No scleral icterus. Conjunctiva/sclera: Conjunctivae normal. Cardiovascular: Rate and Rhythm: Normal rate and regular rhythm. Heart sounds: No murmur heard. No gallop. Pulmonary: Effort: No respiratory distress. Breath sounds: No wheezing or rales. Abdominal: General: There is no distension. Palpations: Abdomen is soft. Tenderness: There is no abdominal tenderness. Musculoskeletal: Right lower le+ Pitting Edema present. Left lower le+ Pitting Edema present. Skin: Comments: 2-3 small areas of dried sacral decubiti. Neurological: General: No focal deficit present. Mental Status: She is alert. Motor: Weakness (legs weak.) present. Gait: Gait abnormal. Comments: Rollator dependent. ASSESSMENT/PLAN: 1. History of gastroenteritis - ICD9: V12.79, ICD10: Z87.19 (primary diagnosis) - Resolved. - COMPLETE BLOOD COUNT 2. Encounter for immunization - ICD9: V03.89, ICD10: Z23 - INFLUENZA VACCINE, PRSV FREE, AGE 65+ YR, HIGH DOSE, TRIVALENT (FLUZONE HIGH-DOSE) 3. History of encephalopathy - ICD9: V12.49, ICD10: Z86.69 - Resolved. 4. Hyponatremia - ICD9: 276.1, ICD10: E87.1 - Recheck and review need for sodium tablets. - SODIUM CHLORIDE 1,000 MG SOLUBLE TABLET. Take one(1) tablet three times daily. - BASIC METABOLIC PANEL 5. Hypomagnesemia - ICD9: 275.2, ICD10: E83.42 - Recheck. - MAGNESIUM 6. Essential hypertensio (more content not included)... [facility] 07-23-2025 History of Present illness Narrative Subjective Yann Adair is a 89 year old female here with her daughter. Patient presents with: [facility] F/U Yann was admitted 07/14 to 07/18/25 for acute gastroenteritis, Campylobacter infection, metabolic encephalopathy, hyponatremia, hypomagnesemia and general debility. She was treated with IV azithromycin. GI was consulted and EGD was done on 07/18/25 showing gastritis. Nephrology was consulted due to hyponatremia. CT of the abdomen and pelvis was consistent with enterocolitis. 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 She was better other than ankle edema. [facility] also called that she tested + for Blastocystis hominis in the stool O&P. However, patient was asymptomatic at this time. The history is provided by medical records, the patient and a relative. Review of Systems Constitutional: Negative for fatigue and fever. Respiratory: Negative for shortness of breath. Cardiovascular: Positive for leg swelling. Negative for chest pain and palpitations. Gastrointestinal: Positive for constipation. Negative for abdominal pain, blood in stool, diarrhea, nausea and vomiting. Genitourinary: Negative for dysuria. Skin: Positive for wound. Neurological: Positive for weakness. 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 sodium chloride soluble tablet 1 g 1 g three times a day. mirabegron (MYRBETRIQ) 25 mg Tb24 daily at bedtime. losartan (COZAAR) 25 mg tablet Take 1 tablet by mouth once daily. For high blood pressure. atorvastatin (LIPITOR) 10 mg tablet Take 1 tablet by mouth once daily. metFORMIN (GLUCOPHAGE) 500 mg tablet Take 1 tablet by mouth two times a day with meals. ROCKLATAN 0.02-0.005 % ophthalmic solution Use 1 Drop in both eyes daily at bedtime. cyanocobalamin, vitamin B-12, (VITAMIN B12 ORAL) Take 1 tablet by mouth once daily. dorzolamide-timolol (COSOPT) 22.3-6.8 mg/mL ophthalmic solution Use 1 Drop in both eyes twice daily. methotrexate 2.5 mg tablet 6 tabs [...] facility-administered medications for this visit. Objective BP 114/70 (BP Site: Right Arm, BP Position: Sitting, BP Cuff Size: Large Adult) Pulse 80 Temp 36.8 C (98.3 F) (Left Tympanic) Wt 63.2 kg (139 lb 5.3 oz) BMI 25.69 kg/m Physical Exam Constitutional: General: She is not in acute distress. HENT: Head: Normocephalic. Nose: No rhinorrhea. Eyes: General: No scleral icterus. Conjunctiva/sclera: Conjunctivae normal. Cardiovascular: Rate and Rhythm: Normal rate and regular rhythm. Heart sounds: No murmur heard. No gallop. Pulmonary: Effort: No respiratory distress. Breath sounds: No wheezing or rales. Abdominal: General: There is no distension. Palpations: Abdomen is soft. Tenderness: There is no abdominal tenderness. Musculoskeletal: Right lower le+ Pitting Edema present. Left lower le+ Pitting Edema present. Skin: Comments: 2-3 small areas of dried sacral decubiti. Neurological: General: No focal deficit present. Mental Status: She is alert. Motor: Weakness (legs weak.) present. Gait: Gait abnormal. Comments: Rollator dependent. ASSESSMENT/PLAN: 1. History of gastroenteritis - ICD9: V12.79, ICD10: Z87.19 (primary diagnosis) - Resolved. - COMPLETE BLOOD COUNT 2. Encounter for immunization - ICD9: V03.89, ICD10: Z23 - INFLUENZA VACCINE, PRSV FREE, AGE 65+ YR, HIGH DOSE, TRIVALENT (FLUZONE HIGH-DOSE) 3. History of encephalopathy - ICD9: V12.49, ICD10: Z86.69 - Resolved. 4. Hyponatremia - ICD9: 276.1, ICD10: E87.1 - Recheck and review need for sodium tablets. - SODIUM CHLORIDE 1,000 MG SOLUBLE TABLET. Take one(1) tablet three times daily. - BASIC METABOLIC PANEL 5. Hypomagnesemia - ICD9: 275.2, ICD10: E83.42 - Recheck. - MAGNESIUM 6. Essential hypertension - ICD9: 401.9, ICD10: I10 - Controlled - Continue current medications 7. Edema of both legs - ICD9: 782.3, ICD10: R60.0 - Likely from sodium tablets. Further recommendations with lab results. 8. Pressure injury of sacral region, stage 1 - ICD9: 707.03, 707.21, ICD10: L89.151 - Healed. Decubiti precautions. 9. Muscular weakness - ICD9: 728.87, ICD10: M62.81 - CONSULT TO PHYSICAL THERAPY 10. Type 2 diabetes, controlled, with peripheral neuropathy (HCC) - ICD9: 250.60, 357.2, ICD10: E11.42 - Controlled - Continue current medications - ALBUMIN/CREATININE RATIO, URINE 11. Blastocystis hominis - ICD9: 007.2, ICD10: A07.8 - Likely commensal. Symptoms resolved. No treatment recommended. Fitz Walters MD documented in this encounter [facility] 07-23-2025 Telephone encounter Note Marilia from [facility] Lab calls and reports that patient was seen at [facility]. Patient had testing done on stool. Patient was positive for OVA parasite. Marilia is faxing over results to office. Patient has hospital follow up scheduled with Dr. Walters today. Evelyne Moura RN [facility] 07-23-2025 Miscellaneous Notes Marilia from [facility] Lab calls and reports that patient was seen at [facility]. Patient had testing done on stool. Patient was positive for OVA parasite. Marilia is faxing over results to office. Patient has hospital follow up scheduled with Dr. Walters today. Evelyne Moura RN documented in this encounter [facility] 07-18-2025 Consult note [facility] 07-18-2025 Consult note Note Date/Time July 18, 2025 3:05pm [facility] Medical Records Department [address] [place] [id number] Counseling Note - Pharmacy 07/18/25 1503 MR#: [id number] Acct: [id number] Name: YANN ADAIR Rep #:[id number] : 1935 89 From: Matt hussein PCP: Dr. Fitz Walters MD Status:A DM IN Y Location: [place] [id number] has performed discharge medication counseling for this patient. The patient was counseled on the following discharge medications and changes in medications for homegoing review. - Pantoprazole, sodium chloride tablets The Reason for Use, instructions for use, and potential side effects were reviewed for all new medications. The patient's questions regarding all of their medications were answered. The patient was able to verbally demonstrate an understanding of their dischargemedications. - Medication information papers were left in her folder for her daughter. Medications at Discharge Home Medications aspirin 81 mg tablet,delayed release (Adult Low Dose Aspirin) 81 mg PO DAILY heart health 06/01/22 atorvastatin 10 mg tablet 10 mg PO DAILY cholesterol 06/01/22 metformin 500 mg tablet 500 mg PO BID diabetes 06/01/22 ferrous sulfate 27 mg iron tablet 65 mg PO DAILY supplement 10/29/22 folic acid 1 mg tablet 2 mg PO DAILY supplement 10/29/22 losartan 25 mg tablet 25 mg PO DAILY blood pressure 10/29/22 methotrexate sodium 2.5 mg tablet 15 mg PO QWEEK 10/29/22 mirabegron 25 mg tablet,extended release 24 hr (Myrbetriq) 25 mg PO QHS bladder #30 tabs 04/17/25 dorzolamide 22.3 mg-timolol 6.8 mg/mL eye drops 1 drp ophthalmic (eye) BID eye health 05/10/25 netarsudil 0.02 %-latanoprost 0.005 % eye drops (Rocklatan) 1 drp ophthalmic (eye) QHS eye health 05/10/25 cyanocobalamin (vitamin B-12) 1,000 mcg tablet 1,000 mcg PO DAILY vitamin #30 tabs 07/09/25 pantoprazole 40 mg tablet,delayed release (Protonix) 40 mg PO DAILY #30 tabs 07/18/25 sodium chloride 1,000 mg soluble tablet 1,000 mg PO TID #90 tabs 07/18/25 07/18/25 1505 <Electronically signed by Matt Stratton> Date _ Matt Waite Signature (if applicable): Date CC: ~ Signed [facility] Work Phone: 1(880) 272-322609-03-2025 Discharge summary Author Benny Junior [facility] Note Date/Time July 18, 2025 1:38pm [facility] Medical Records Department [address] [place] [address] Instructions for Home/Discharge Instructions 07/18/25 1321 MR#: [id number] Acct: [id number] Name: YANN ADAIR Rep #:[id number] : 1935 89 From: Benny Junior DO PCP: Dr. Fitz Walters MD Status:A DM IN Discharge Instructions DC O2, CPAP, BIPAP needs Home O2 Discharge instructions: No Dressing / Incision Discharge Activity: Return to Normal Activity Weight Bearing Status: Full weight bearing Follow Up Care Test Results: Test results from this visit will be discussed in further detail at your follow- up appointment, if applicable. Discharge Plan Admission Admit Date/Time: 07/14/25 00:52 Primary Reason for Your Visit: Gastroenteritis, low sodium Attending Provider: Benny Junior Primary Care Provider: Fitz Walters Consulting Providers: Candido Quiroga; Damian Garrison; Steve Alvarez; Daniel Cox; Adrian aHnson; Marbella Goetz; Laurence Merlos; Catarina Ruggiero Discharge Orders/Prescriptions Prescriptions: New sodium chloride 1,000 mg Tablet,Soluble 1,000 mg PO TID Qty: 90 0RF pantoprazole [Protonix] 40 mg tablet,delayed release (DR/EC) 40 mg PO DAILY Qty: 30 0RF Continued aspirin [Adult Low Dose Aspirin] 81 mg tablet,delayed release (DR/EC) 81 mg PO DAILY atorvastatin 10 mg tablet 10 mg PO DAILY metformin 500 mg tablet 500 mg PO BID ferrous sulfate 27 mg iron tablet 65 mg PO DAILY losartan 25 mg tablet 25 mg PO DAILY methotrexate sodium 2.5 mg tablet 15 mg PO QWEEK Rx Instructions: PT TAKES ON WEDNESDAYS folic acid 1 mg tablet 2 mg PO DAILY mirabegron [Myrbetriq] 25 mg tablet extended release 24 hr 25 mg PO QHS Qty: 30 6RF dorzolamide-timolol 22.3-6.8 mg/mL drops 1 drp ophthalmic (eye) BID Rocklatan 0.02-0.005 % drops 1 drp ophthalmic (eye) QHS cyanocobalamin (vitamin B-12) 1,000 mcg tablet 1,000 mcg PO DAILY Qty: 30 10RF Referrals / Follow Up: Fitz Walters MD [Primary Care Provider] - Within 2 Weeks (Have your PCP recheck your sodium) Disposition Disposition (needs filled in before D/C Order can be placed): Home, Self Care 07/18/25 4978<Electronically signed by Benny Junior DO>Benny Junior DO CC: NEWS COPY EDITORMustapha Goetz; NEWS COPY EDITOR-Nida Merlos; Dr. Steve Alvarez DO; Dr. Candido Quiroga DO; Dr. Damian Garrison MD; Dr. Daniel Cox MD; Dr. Fitz Walters MD; EVELIN Hebert; Adrian Hanson, ~ Signed [facility] Work Phone: 1(514) 862-135009-03-2025 Consult note [facility] Medical Records Department [address] [place] [id number] Counseling Note - Pharmacy 07/18/25 1503 MR#: [id number] Acct: [id number] Name: YANN ADAIR Rep #:[id number] : 1935 89 From: Matt hussein PCP: Dr. Fitz Walters MD Status:A DM IN Y Location: [place] [address] Pharmacy [facility] has performed discharge medication counseling for this patient. The patient was counseled on the following discharge medications and changes in medications for homegoing review. - Pantoprazole, sodium chloride tablets The Reason for Use, instructions for use, and potential side effects were reviewed for all new medications. The patient's questions regarding all of their medications were answered. The patient was able to verbally demonstrate an understanding of their dischargemedications. - Medication information papers were left in her folder for her daughter. Medications at Discharge Home Medications aspirin 81 mg tablet,delayed release (Adult Low Dose Aspirin) 81 mg PO DAILY heart health 06/01/22 atorvastatin 10 mg tablet 10 mg PO DAILY cholesterol 06/01/22 metformin 500 mg tablet 500 mg PO BID diabetes 06/01/22 ferrous sulfate 27 mg iron tablet 65 mg PO DAILY supplement 10/29/22 folic acid 1 mg tablet 2 mg PO DAILY supplement 10/29/22 losartan 25 mg tablet 25 mg PO DAILY blood pressure 10/29/22 methotrexate sodium 2.5 mg tablet 15 mg PO QWEEK 10/29/22 mirabegron 25 mg tablet,extended release 24 hr (Myrbetriq) 25 mg PO QHS bladder #30 tabs 04/17/25 dorzolamide 22.3 mg-timolol 6.8 mg/mL eye drops 1 drp ophthalmic (eye) BID eye health 05/10/25 netarsudil 0.02 %-latanoprost 0.005 % eye drops (Rocklatan) 1 drp ophthalmic (eye) QHS eye health 05/10/25 cyanocobalamin (vitamin B-12) 1,000 mcg tablet 1,000 mcg PO DAILY vitamin #30 tabs 07/09/25 pantoprazole 40 mg tablet,delayed release (Protonix) 40 mg PO DAILY #30 tabs 07/18/25 sodium chloride 1,000 mg soluble tablet 1,000 mg PO TID #90 tabs 07/18/25 07/18/25 1505 ebly> Date _ Matt Waite Signature (if applicable): Date CC: ~ Signed [facility]09-03-2025 Progress note Author Damian Garrison [facility] Note Date/Time July 18, 2025 1:04pm [facility] Medical Records Department [address] [place] [address] Progress Note - Nephrology 07/18/25 1303 MR#: [id number] Acct: [id number] Name: YANN ADAIR Rep #:[id number] : 1935 89 From: Damian george MD PCP: Dr. Fitz Walters MD Status:A DM IN Location: [facility] [id number] Subjective Subjective no new events Objective Data Objective Data Vital Signs: Vital Signs Temp Pulse Resp BP Pulse Ox O2 Del Method 98.2 F 74 16 120/72 95 Room Air 07/18/25 12:40 07/18/25 12:40 07/18/25 12:40 07/18/25 12:40 07/18/25 12:40 07/18/25 12:40 Oxygen Delivery Method Room Air Weight: 64.1 kg Body Mass Index (BMI) 22.8 Intake & Output: Intake and Output for Last 24 Hours 07/16/25 07/17/25 07/18/25 23:59 23:59 23:59 Intake Total 795 / 1295 1620 / 1620 Output Total 2175 / 2175 Balance -1380 / -880 1620 / 1620 -1 Lab / Micro Data 07/18/25 04:45 07/18/25 04:45 Labs: Laboratory Results - last 24 hr 07/17/25 16:38: POC Glucose 115 H 07/17/25 21:22: POC Glucose 138 H 07/18/25 04:45: WBC 6.4, RBC 3.14 L, Hgb 10.0 L, Hct 30.0 L, MCV 95.5, MCH 31.8,MCHC 33.3, RDW Std Deviation 46.3 H, RDW Coeff of Swapnil 13.6, Plt Count 183, MPV 9.9, Immature Gran % (Auto) 0.500, Neut % (Auto) 52.9, Lymph % (Auto) 26.6, Wells% (Auto) 18.4 H, Eos % (Auto) 1.4, Baso % (Auto) 0.2, Absolute Neuts (auto) 3.4,Absolute Lymphs (auto) 1.69, Nucleated RBC % 0, Sodium 132 L, Potassium 4.2, Chloride 100, Carbon Dioxide 24.1, Anion Gap 8, BUN 17, Creatinine 0.67 L, EstimCreat Clear Calc 44.63 L, Est GFR (MDRD) Non-Af 84, BUN/Creatinine Ratio 25.0 H,Glucose 117 H, Calcium 9.3 07/18/25 06:15: POC Glucose 84 07/18/25 10:25: POC Glucose 99 Micro: Microbiology 08/30/25 06:04 Stool Stool Lactoferrin - Final 07/14/25 06:04 Stool Enteric Bacteriology - Final Campylobacter species 07/14/25 06:04 Stool Clostridioides difficile (PCR) - Final 07/14/25 03:05 Mucosa - Nasopharyngeal Respiratory Panel (PCR) - Final Radiography Diagnostic Testing: Radiology Impression Brain MRI 07/17/25 15:24 IMPRESSION: No acute intracranial abnormality; no acute infarct. Moderate generalized brain parenchymal volume loss, and minimal leukoaraiosis. Reading Location: [facility] Physical Exam Narrative no obvious distress no pallor no icterus no JVD s1s2 no murmurs lungs clear abdomen soft no organomegaly no edema Assessment & Plan Assessment/Plan (1) Hyponatremia: PLAN: Urine sodium more than 20, urine osmolality more than 300. 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 On review of previous labs, she had borderline hyponatremia before. TSH and cortisol are okay.Currently on salt tablets. 1 g 3 times daily. Sodium is better around 131 and 132. Volume status looks okay. 07/18/25 1304 <Electronically signed by Damian Garrison MD> Cosigner Signature (if applicable): CC: ~ Signed [facility] Work Phone: 1(970) 291-848609-03-2025 Consult note Author Michelet Venturaawaja [facility] Note Date/Time July 18, 2025 5:28pm [facility] Medical Records Department [address] [place] [address] Anesthesia Postop Eval II 07/18/25 1245 MR#: [id number] Acct: [id number] Name: YANN ADAIR Rep #:[id number] : 1935 89 From: Michelet Worthy MD PCP: Dr. Fitz Walters MD Status:A DM IN Y Race: C Location: [place] [address] 4-1 Anesthesia Postop Eval I Sum Postop Eval Completion status Anesthesia document: Postop Eval 1 completed: Yes Anesthesia Postop Eval I Summary Anesthesia Postop Eval I Summary: Anesthesia Postop Eval I: Assessment Summary 3 Airway patent Yes 07/18/25 12:07 [email or web address] Spontaneous unlabored Yes 07/18/25 12:07 [email or web address] respirations Mental status Awake,Calm 07/18/25 12:07 [email or web address] nausea No 07/18/25 12:07 [email or web address] Vomiting No 07/18/25 12:07 [email or web address] Anesthesia Postop Eval I: Fluid Summary Crystalloid volume administer 300 07/18/25 12:07 [email or web address] (ml) Colloids volume administered ( ml) Blood Product volume administered (ml) Total IV fluid infused 300 07/18/25 12:07 [email or web address] Anesthesia Postop Eval I: Summary Notes Anesthesia Complication No 07/18/25 12:07 [email or web address] Anesthesia Complication Comment: Post-operative progress note Anesthesia: Postop Eval II Evaluation Mental status: Awake Pain Level: 0 nausea: No Vomiting: No Complications Anesthesia Complication: No 07/18/25 1245 <Electronically signed by Michelet Worthy MD> Date _ Michelet Worthy MD Cosigner Signature: Date CC: ~ Signed [facility] Work Phone: 1(673) 847-699509-03-2025 Consult note Author Pietro Cunha [facility] Note Date/Time July 18, 2025 12:07pm [facility] Medical Records Department [address] [place] [address] Anesthesia Postop Eval I 07/18/25 1206 MR#: [id number] Acct: [id number] Name: YANN ADAIR Rep #:[id number] : 1935 89 From: Pietro Cunha PCP: Dr. Fitz Walters MD Status:A DM IN Y Race: C Location: [address] Anesthesia: Postop Eval I Current Vital Signs Temperature: 97.3 F Pulse Rate: 87 Blood Pressure: 79/59 Respiratory Rate: 16 Pulse Ox: 97 Oxygen Delivery Method: Room Air Assessment Airway patent: Yes Spontaneous unlabored respirations: Yes Mental status: Awake and Calm nausea: No Vomiting: No Anesthesia Complication: No Fluid Hydration Crystalloid volume administer (ml): 300 Total IV fluid infused: 300 Progress Note Anesthesia document: Postop Eval 1 completed: Yes 07/18/25 1207 <Electronically signed by Pietro Cunha > Date _ Pietro Menjivarignerik Signature: Date CC: ~ Signed [facility] Work Phone: 1(210) 453-818609-03-2025 Hospital Discharge instructionsAdditional Instructions Date of Discharge: 07/18/25[facility] Work Phone: [phone]) 572-698109-03-2025 Discharge summary [facility] Medical Records Department [address] [place] [address] Instructions for Home/Discharge Instructions 07/18/25 1321 MR#: [id number] Acct: [id number] Name: YANN ADAIR Rep #:[id number] : 1935 89 From: Benny Junior DO PCP: Dr. Fitz Walters MD Status:A DM IN Discharge Instructions DC O2, CPAP, BIPAP needs Home O2 Discharge instructions: No Dressing / Incision Discharge Activity: Return to Normal Activity Weight Bearing Status: Full weight bearing Follow Up Care Test Results: Test results from this visit will be discussed in further detail at your follow- up appointment, if applicable. Discharge Plan Admission Admit Date/Time: 07/14/25 00:52 Primary Reason for Your Visit: Gastroenteritis, low sodium Attending Provider: Benny Junior Primary Care Provider: Fitz Walters Consulting Providers: Candido Quiroga; Damian Garrison; Steve Alvarez; Daniel Cox; Adrian Hanson; Marbella Goetz; Laurence Merlos; Catarina Ruggiero Discharge Orders/Prescriptions Prescriptions: New sodium chloride 1,000 mg Tablet,Soluble 1,000 mg PO TID Qty: 90 0RF pantoprazole [Protonix] 40 mg tablet,delayed release (DR/EC) 40 mg PO DAILY Qty: 30 0RF Continued aspirin [Adult Low Dose Aspirin] 81 mg tablet,delayed release (DR/EC) 81 mg PO DAILY atorvastatin 10 mg tablet 10 mg PO DAILY metformin 500 mg tablet 500 mg PO BID ferrous sulfate 27 mg iron tablet 65 mg PO DAILY losartan 25 mg tablet 25 mg PO DAILY methotrexate sodium 2.5 mg tablet 15 mg PO QWEEK Rx Instructions: PT TAKES ON WEDNESDAYS folic acid 1 mg tablet 2 mg PO DAILY mirabegron [Myrbetriq] 25 mg tablet extended release 24 hr 25 mg PO QHS Qty: 30 6RF dorzolamide-timolol 22.3-6.8 mg/mL drops 1 drp ophthalmic (eye) BID Rocklatan 0.02-0.005 % drops 1 drp ophthalmic (eye) QHS cyanocobalamin (vitamin B-12) 1,000 mcg tablet 1,000 mcg PO DAILY Qty: 30 10RF Referrals / Follow Up: Fitz Walters MD [Primary Care Provider] - Within 2 Weeks (Have your PCP recheck your sodium) Disposition Disposition (needs filled in before D/C Order can be placed): Home, Self Care 07/18/25 1338[facility] CC: NEWS COPY EDITOR-C Marbella Goetz; NEWS COPY EDITOR-C Laurence Merlos; Dr. Steve Alvarez DO; Dr. Candido Quiroga DO; Dr. Damian Garrison MD; Dr. Daniel Cox MD; Dr. Fitz Walters MD; EVELIN Hebert;Adrian Hanson DO ~ Signed [facility]09-03-2025 [facility]09-03-2025 Consult note Author Michelet Worthy [facility] Note Date/Time July 18, 2025 11:31am [facility] Medical Records Department [address] [place] [address] Pre-Anesthesia Evaluation 07/18/25 1121 MR#: [id number] Acct: [id number] Name: YANN ADAIR Rep #:[id number] : 1935 89 From: Michelet Worthy MD PCP: Dr. Fitz Walters MD Status:A DM IN Y Race: C Location: [place] [address] ASA Classification* ASA Classification ASA Classification: 3 (Hyponatremia, recent fall, mental status changes, CKD3) Assessment & Plan Anesthesia* Anesthesia Assessment Anesthesia Assessment: Discussed sedation and/or anesthesia options, risks, benefits, and alternatives with patient/parents/legal guardian/POA. Questions invited. The patient/parents/legal guardian/POA seems to understand and agrees to proceedwith anesthesia plan. Reviewed the physical assessment, medical history, allergy history and patient home medications list prior to surgery/procedure/anesthetic and documented any changes. Performed airway and anesthesia risk assessments. The patient upon my examination was A&Ox3, and had capacity to make her own medical decisions. The patient was able to articulate the procedure she was having, and why she was having it done. I believe there was a history of mental status changes previously, however the patient is of sound mind and reasoning today to proceed with this procedure. The opportunity for questions was invited;patient had no questions. Anesthesia Type Anesthesia Type: MAC History Source History Obtained from:: Patient and Chart Anesthesia Focused Assessment* Temperature: 97.7 F Pulse Rate: 73 Blood Pressure: 120/68 Respiratory Rate: 20 Pulse Ox: 100 Oxygen Delivery Method: Room Air Airway Assessment Mouth opens: >3 cm Mallampati Score: II Teeth Condition: Dentures Neck Range of motion (ROM): Full ROM Labs Anesthesia Preop lab: CBC WBC 6.4 K/mm3 (4.4-11.0) 07/18/25 04:45 07/18/25 RBC 3.14 M/mm3 (4.2-5.4) L 07/18/25 04:45 07/18/25 Hgb 10.0 g/dL (12.0-15.0) L 07/18/25 04:45 5 Hct 30.0 % (37-47) L 07/18/25 04:45 07/18/25 Plt Count 183 K/mm3 (150-450) 07/18/25 04:45 07/18/25 CHEMISTRY Potassium 4.2 mmol/L (3.3-5.1) 07/18/25 04:45 07/18/25 Sodium 132 mmol/L (133-145) L 07/18/25 04:45 07/18/25 Magnesium 2.0 mg/dL (1.5-2.2) 07/14/25 12:04 07/14/25 Phosphorus 2.3 mg/dL (2.7-4.5) L 07/14/25 04:26 07/14/25 BUN 17 mg/dL (4-19) 07/18/25 04:45 07/18/25 Creatinine 0.67 mg/dL (0.70-1.20) L 07/18/25 04:45 Glucose 117 mg/dL (70-99) H 07/18/25 04:45 07/18/25 POC Glucose 99 mg/dL (74-106) 07/18/25 10:25 07/18/25 TSH 2.210 uIU/mL (0.300-4.200) 07/14/25 01:34 08 COAG PT 13.6 SECONDS (11.7-14.9) 07/13/25 20:10 Pre-Assessment Diagnosis/Proposed Procedure Planned Operative Procedure(s): EGD Anesthesia History Anesthesia History - 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 When Was Last Pacemaker Check QUESTION #4 FULL TEXT: You/Your Family Experience fever (hyperthermia) with Anesthesia Last Oral Intake Last Oral intake: Last Oral Intake NPO since 00:00 07/18/25 08:39 Meds taken in AM with sips of water? Meds patient instructed to take am of surgery PONV PONV - senior business objects developer: PONV - senior business objects developer Female HX of Motion Sickness HX of N/V After Surgery Non-Smoker Duration of Surgery greater than 60 minutes Number of Risk Factors PONV Score Height & Weight Height & Weight: Anesthesia: Height & Weight Height 5 ft 6 in 07/18/25 08:39 Weight: 64.1 kg 07/18/25 08:39 Body Mass Index (BMI) 22.8 07/18/25 08:39 Respiratory Assessment Respiratory Assessment - senior business objects developer: Respiratory Tract Infection Hx - senior business objects developer Hx Respiratory Tract Infection No 07/18/25 08:32 STOP Sleep Apnea STOP Sleep Apnea - senior business objects developer: STOP Sleep Apnea - senior business objects developer Hx Hypertension Yes 07/14/25 10:30 Hx Sleep Apnea No 07/14/25 01:56 CPAP BIPAP Do you snore loudly (louder No 07/14/25 01:56 than talking or can be heard Do you often feel tired/ No 07/14/25 01:56 fatigued/ sleepy during daytime? Has anyone observed you stop No 07/14/25 01:56 breathing during sleep? STOP Results Negative 07/14/25 01:56 QUESTION #5 FULL TEXT : Do you snore loudly (louder than talking or can be heard through closed doors)? Tobacco Use History Tobacco Use History - senior business objects developer: Tobacco Use History - senior business objects developer Tobacco Use Smoking Status Former smoker 07/14/25 01:56 Hx Tobacco Use No 07/14/25 01:56 Years Smoking Packs Smoked per Day Smoking Cessation Date was No - quit smoking greater 07/14/25 01:56 within the last 15 years than 15 years ago Hx Smoking Cessation Date 05/10/70 07/14/25 01:56 Hx Smoking Cessation Counseling Hematologic Medial History Hematologic Hx - senior business objects developer: Hematologic Medical Hx - broommaker Hx of Blood Transfusion No 07/14/25 01:56 Hx of Transfusion in last 3 No 07/14/25 01:56 Months Date of Last Transfusion (if within last 3 months) Ever experience any problems No 07/14/25 01:56 with transfusion(s)? Specify any problems Hx of Preganancy in last 3 No 07/14/25 01:56 Months Nurse Filling Out Transfusion MGROVE 07/14/25 01:56 & Questions: Date: 07/14/25 07/14/25 01:56 Time: 01:58 07/14/25 01:56 Patient unable to answer at this time (ie. confused, unrespo /Reproduction History /Reproductive History - senior business objects developer: /Reproductive Hx- senior business objects developer Hx Now No 07/18/25 08:32 Gestational Age (in weeks): EDC: Hx Hx Para Hx Section SAB No 07/18/25 08:32 Active Medications Active Medications: Current Medications Generic Name Dose Route Start Last Admin Trade Name Freq PRN Reason Stop Dose Admin Acetaminophen 650 mg 07/14/25 01:38 07/17/25 14:24 Acetaminophen 325 Mg Tablet PO 650 mg Q6H PRN PRN Administration Pain 1-10 or Fever Aspirin 81 mg 07/14/25 08:00 07/17/25 09:21 Aspirin E.C. 81 Mg Tablet PO 81 mg BREAKFAST SHLOMO Administration Atorvastatin Calcium 10 mg 07/14/25 22:00 07/17/25 21:24 Atorvastatin Calcium 10 Mg Tablet PO 10 mg 2200 SHLOMO Administration Azithromycin 500 mg 07/17/25 10:00 07/17/25 09:22 Azithromycin 250 Mg Tablet PO 500 mg Q24 SHLOMO Administration Cyanocobalamin 1,000 mcg 07/14/25 10:00 07/17/25 09:22 Cyanocobalamin 500 Mcg Tablet PO 1,000 mcg DAILY SHLOMO Administration Dorzolamide/Timolol 1 drp 07/14/25 10:00 07/17/25 21:24 Dorzolamide Hcl/Timolol 10 Ml Bottle OPHTHALMIC 1 drp BID SHLOMO Administration Enoxaparin Sodium 30 mg 07/14/25 10:00 07/17/25 09:22 Enoxaparin 30 Mg/0.3 Ml Syringe SC 30 mg DAILY SHLOMO Administration Ferrous Sulfate 325 mg 07/14/25 08:00 07/17/25 09:21 Ferrous Sulfate 325 Mg Tablet PO 325 mg DAILYCM SHLOMO Administration Folic Acid 2 mg 07/14/25 08:00 07/17/25 09:21 Folic Acid 1 Mg Tablet PO 2 mg DAILYCM SHLOMO Administration Glucagon 1 mg 07/14/25 01:38 Glucagon 1 Mg/Ml Syringe IM X1 PRN HYPOGLYCEMIA Protocol Dextrose 250 mls @ 0 mls/hr 07/14/25 01:38 Dextrose 10%-Water IV .Q0M PRN HYPOGLYCEMIA Protocol As Directed Sodium Chloride 250 mls @ 15 mls/hr 07/14/25 01:39 IV .[id number] PRN Saline Flush Sodium Chloride 250 mls @ 15 mls/hr 07/14/25 01:39 IV .[id number] PRN Additional IVPB Infusion Insulin Human Lispro 0 unit 07/14/25 07:00 07/18/25 06:40 Insulin Lispro 100 Unit/Ml Insuln.Pen SC Not Given ACHS SHLOMO Protocol Latanoprost 1 drp 07/15/25 22:00 07/17/25 21:25 Latanoprost 0.005% 1 Bottle OPHTHALMIC 1 drp QHS SHLOMO Administration Loperamide HCl 2 mg 07/16/25 22:36 07/16/25 22:50 Loperamide 2 Mg Capsule PO 2 mg Q4H PRN PRN Administration DIARRHEA/LOOSE STOOLS Losartan Potassium 25 mg 07/14/25 10:00 07/17/25 09:21 Losartan Potassium 25 Mg Tablet PO 25 mg DAILY SHLOMO Administration Protocol Melatonin 3 mg 07/14/25 01:38 Melatonin 3 Mg Tablet PO QHS PRN PRN INSOMNIA Nutritional Formula (Lactose Free) 120 ml 07/14/25 08:00 07/17/25 18:17 Ensure Plus High Protein 120 Ml Liquid PO 120 ml TIDCM SHLOMO Administration Ondansetron HCl 4 mg 07/14/25 01:38 07/15/25 06:52 Ondansetron 4 Mg/2 Ml Vial IV 4 mg Q8H PRN PRN Administration NAUSEA/VOMITING Sodium Chloride 10 - 40 ml 07/14/25 01:39 07/17/25 21:33 0.9% Saline Lock 10 Ml Syringe IV 10 ml UD PRN Administration SALINE FLUSH Sodium Chloride 1 gm 07/14/25 16:00 07/18/25 05:29 Sodium Chloride 1 Gm Tablet PO Not Given TID SHLOMO PFSH Medical History Acute hyponatremia Cellulitis Cat bite of right lower leg with infection Rheumatoid arthritis Former tobacco use HTN (hypertension) HLD (hyperlipidemia) Irritable bowel syndrome (IBS) Hives High triglycerides Migraines Glaucoma Diabetes mellitus Cataracts, bilateral Arthritis Home Medications ?Medication ?Instructions ?Recorded ?Last Taken ?Type aspirin 81 mg tablet,delayed 81 mg PO DAILY 06/01/22 0 05/10/25 History release (Adult Low Dose Aspirin) atorvastatin 10 mg tablet 10 mg PO DAILY 06/01/2204/16 History metformin 500 mg tablet 500 mg PO BID 06/01/2205/10 History ferrous sulfate 27 mg iron tablet 65 mg PO DAILY 10/2905/10/25 History folic acid 1 mg tablet 2 mg PO DAILY 10/29/2205/10 History losartan 25 mg tablet 25 mg PO DAILY 10/29/2204/16 History methotrexate sodium 2.5 mg tablet 15 mg PO QWEEK 10/2905/09/25 History mirabegron 25 mg tablet,extended 25 mg PO QHS #30 tabs 04/17/25 05/09/25 Rx release 24 hr (Myrbetriq) dorzolamide 22.3 mg-timolol 6.8 1 drp ophthalmic (eye) BID 05/10/25 05/10/25 History mg/mL eye drops netarsudil 0.02 %-latanoprost 1 drp ophthalmic (eye) Q HS 05/10/25 05/09/25 History 0.005 % eye drops (Rocklatan) cyanocobalamin (vitamin B-12) 1,000 mcg PO DAILY #30 t abs 07/09/25 Unknown Rx 1,000 mcg tablet Allergy/AdvReac Type Severity Reaction Status Date / Time Sulfa (Sulfonamide AdvReac Intermediate Hives Verified 07/13/25 20:07 Antibiotics) Family History Father Gallstones BPH (benign prostatic hyperplasia) Mother Alzheimer dementia Surgical History History of bilateral tubal ligation History of bladder repair surgery Social History household members: family Smoking Status: Former smoker how long ago did patient quit smoking: Smoked 40 years, started 19 until quit, ~ 1 ppd. alcohol intake: never substance use type: does not use caffeine: Yes Type: coffee Number of servings: 1 what type of physical activity do you participate in: none rancho/temple: Jew seatbelt use: always Review of Systems (Anesthesia) ROS Narrative System reviewed and no additional complaints, except as documented. Physical Exam Const alert, oriented x3 and average body habitus Resp normal respiratory effort, normal air movement and clear to auscultation bilaterally Cardio regular rate, regular rhythm and no murmurs 07/18/25 1131 <Electronically signed by Michelet Worthy MD> Date _ Michelet Worthy MD Cosigner Signature: Date CC: ~ Signed [facility] Work Phone: 1(710) 668-824309-03-2025 Consult note Author Laurence Merlos [facility] Note Date/Time July 18, 2025 11:30am [facility] Medical Records Department [address] [place] [address] Consultation - GI 07/18/25 0953 MR#: [id number] Acct: [id number] Name: YANN ADAIR Rep #:[id number] : 1935 89 From: Laurence najera NEWS COPY EDITOR-C PCP: Dr. Fitz Walters MD Status:A DM IN Location: [place] [address] ADDENDUM by Adrian Hanson DO on 07/18/25 at 1130 Addendum Patient seen and examined and agree with above recommendations. 07/18/25 1130<Electronically signed by Adrian Hanson DO> Cosigner Signature (if applicable): cc: Dr. Fitz Walters MD ~* Signed HPI Consult Data Date of Consult: 07/18/25 HPI Narrative Reason for Consultation: nausea and vomiting HPI Narrative: YANN ADAIR, is a 89 F sitting up in chair at bedside, pleasant, [place], visually impaired - presently NPO - denies any pain, N/V, diarrhea - A&Ox3 - denies any bleeding - reports weight loss of 3lbs in past month - hungry - denies any emesis in 2 days - lives with daughter and son-in-law - denies dysphagia, odynophagia - dentures - reports good fit - reports eating slow - denies any prior EGD - h/o colon x2 negative per patient PFSH Medical History Acute hyponatremia Cellulitis Cat bite of right lower leg with infection Rheumatoid arthritis Former tobacco use HTN (hypertension) HLD (hyperlipidemia) Irritable bowel syndrome (IBS) Hives High triglycerides Migraines Glaucoma Diabetes mellitus Cataracts, bilateral Arthritis Home Medications ?Medication ?Instructions ?Recorded ?Last Taken ?Type aspirin 81 mg tablet,delayed 81 mg PO DAILY 06/01/22 0 05/10/25 History release (Adult Low Dose Aspirin) atorvastatin 10 mg tablet 10 mg PO DAILY 06/01/2204/16 History metformin 500 mg tablet 500 mg PO BID 06/01/2205/10 History ferrous sulfate 27 mg iron tablet 65 mg PO DAILY 10/2905/10/25 History folic acid 1 mg tablet 2 mg PO DAILY 10/29/2205/10 History losartan 25 mg tablet 25 mg PO DAILY 10/29/2204/16 History methotrexate sodium 2.5 mg tablet 15 mg PO QWEEK 10/2905/09/25 History mirabegron 25 mg tablet,extended 25 mg PO QHS #30 tabs 04/17/25 05/09/25 Rx release 24 hr (Myrbetriq) dorzolamide 22.3 mg-timolol 6.8 1 drp ophthalmic (eye) BID 05/10/25 05/10/25 History mg/mL eye drops netarsudil 0.02 %-latanoprost 1 drp ophthalmic (eye) Q HS 05/10/25 05/09/25 History 0.005 % eye drops (Rocklatan) cyanocobalamin (vitamin B-12) 1,000 mcg PO DAILY #30 t abs 07/09/25 Unknown Rx 1,000 mcg tablet Allergy/AdvReac Type Severity Reaction Status Date / Time Sulfa (Sulfonamide AdvReac Intermediate Hives Verified 07/13/25 20:07 Antibiotics) Family History Father Gallstones BPH (benign prostatic hyperplasia) Mother Alzheimer dementia Surgical History History of bilateral tubal ligation History of bladder repair surgery Social History household members: family Smoking Status: Former smoker how long ago did patient quit smoking: Smoked 40 years, started 19 until quit, ~ 1 ppd. alcohol intake: never substance use type: does not use caffeine: Yes Type: coffee Number of servings: 1 what type of physical activity do you participate in: none rancho/temple: Jew seatbelt use: always ROS Constitutional Constitutional: Reports as per HPI Eyes Eyes: Reports loss of vision Respiratory/Chest Respiratory/Chest: Denies dyspnea on exertion, mouth breathing, productive cough, shortness of breath at rest or shortness of breath with exertion Gastrointestinal Gastrointestinal: Reports as per HPI Musculoskeletal Musculoskeletal: Reports abnormal gait Physical Exam Narrative [place], upper and lower dentures Const no apparent distress General Appearance: well developed Orientation / Consciousness: oriented to person, oriented to place and oriented to time Eyes Eyes Narrative: Blind Sclera: sclera normal Neck full ROM General: normal visual inspection Resp Effort and Inspection: able to speak in complete sentences and symmetric chest movement Auscultation: clear to auscultation bilaterally Cardio regular rate and regular rhythm GI GI Narrative: ABD soft, non-tended, no distension, BS+x4 Extremity Extremity Narrative: 1+ LLE pedal edema Peripheral Pulses: Yes pulses 2+ throughout Skin Skin Narrative: healing abrasion with crusting noted on right knee, no erythema, warmth, or drainage noted Lab / Micro Data Attestation: I reviewed the patient's lab results. 07/18/25 04:45 07/18/25 04:45 Labs: Laboratory Results - last 24 hr 07/17/25 10:15: Sodium 131 L, Potassium 4.3, Chloride 99, Carbon Dioxide 24.9, Anion Gap 8, BUN 16, Creatinine 0.60 L, Estim Creat Clear Calc 44.63 L, Est GFR (MDRD) Non-Af 86, BUN/Creatinine Ratio 27.1 H, Glucose 126 H, Calcium 9.2 07/17/25 11:27: POC Glucose 75 07/17/25 16:38: POC Glucose 115 H 07/17/25 21:22: POC Glucose 138 H 07/18/25 04:45: WBC 6.4, RBC 3.14 L, Hgb 10.0 L, Hct 30.0 L, MCV 95.5, MCH 31.8,MCHC 33.3, RDW Std Deviation 46.3 H, RDW Coeff of Swapnil 13.6, Plt Count 183, MPV 9.9, Immature Gran % (Auto) 0.500, Neut % (Auto) 52.9, Lymph % (Auto) 26.6, Wells% (Auto) 18.4 H, Eos % (Auto) 1.4, Baso % (Auto) 0.2, Absolute Neuts (auto) 3.4,Absolute Lymphs (auto) 1.69, Nucleated RBC % 0, Sodium 132 L, Potassium 4.2, Chloride 100, Carbon Dioxide 24.1, Anion Gap 8, BUN 17, Creatinine 0.67 L, EstimCreat Clear Calc 44.63 L, Est GFR (MDRD) Non-Af 84, BUN/Creatinine Ratio 25.0 H,Glucose 117 H, Calcium 9.3 07/18/25 06:15: POC Glucose 84 Imaging Radiology Impression Brain MRI 07/17/25 15:24 IMPRESSION: No acute intracranial abnormality; no acute infarct. Moderate generalized brain parenchymal volume loss, and minimal leukoaraiosis. Reading Location: [facility] Assessment & Plan Assessment/Plan (1) Campylobacter gastroenteritis: (2) Nausea and vomiting: PLAN: Plan 89y/o female initially presented to the ED on 07/13/2025 after a fall with associated SOB and confusion. CT head was negative for acute intracranial process. CT A&P demonstrated diffuse gastric wall thickening suggestive of gastritis, fluid- filled colon likely secondary to colitis/enterocolitis, and mild SB thickening w/o evidence of perforation or pneumatosis. Stool testing waspositive for Campylobacter and lactoferrin, negative for C. Diff. On admission she was noted to have mild anemia with HGB 11.6, and today her HGB has mildly decreased to 10. Hyponatremia is improving (128 -> 132). She denies hematemesis,melena, or hematochezia. She reports a 3lb weight loss over the past month but endorses a good appetite, eats slowly, denies dysphagia and odynophagia. Upper and lower dentures, reporting good fit. She is afebrile, denies abdominal pain, bleeding, N/V. Last episode of emesis per patient was 2d ago, though her daughter remains concerned about N/V. Plan to proceed with EGD today to further evaluate gastric wall thickening seen on CT and r/o PUD, malignancy, or other structural pathology. No overt GIB noted; etiology of Hgb decline may be multifactoral including volume status and nutritional factors, but will evaluate further with EGD as planned. Continue azithromycin to complete a 7d course for Campylobacter enterocolitis. 07/18/25 1017 <Electronically signed by Laurence CUNNINGHAM> Cosigner Signature (if applicable): CC: Dr. Fitz Walters MD~ Signed [facility] Work Phone: [phone] 784-391509-03-[address] [facility] Medical Records Department [address] [place] [address] Progress Note - Nephrology 07/18/25 1303 MR#: [id number] Acct: [id number] Name: YANN ADAIR Rep #:[id number] : 1935 89 From: Damian george MD PCP: Dr. Fitz Walters MD Status:A DM IN Location: [place] [address] Subjective Subjective no new events Objective Data Objective Data Vital Signs: Vital Signs Temp Pulse Resp BP Pulse Ox O2 Del Method 98.2 F 74 16 120/72 95 Room Air 07/18/25 12:40 07/18/25 12:40 07/18/25 12:40 07/18/25 12:40 07/18/25 12:40 07/18/25 12:40 Oxygen Delivery Method Room Air Weight: 64.1 kg Body Mass Index (BMI) 22.8 Intake & Output: Intake and Output for Last 24 Hours 07/16/25 07/17/25 07/18/25 23:59 23:59 23:59 Intake Total 795 / 1295 1620 / 1620 Output Total 2175 / 2175 Balance -1380 / -880 1620 / 1620 -1 / -1 Lab / Micro Data 07/18/25 04:45 07/18/25 04:45 Labs: Laboratory Results - last 24 hr 07/17/25 16:38: POC Glucose 115 H 07/17/25 21:22: POC Glucose 138 H 07/18/25 04:45: WBC 6.4, RBC 3.14 L, Hgb 10.0 L, Hct 30.0 L, MCV 95.5, MCH 31.8,MCHC 33.3, RDW Std Deviation 46.3 H, RDW Coeff of Swapnil 13.6, Plt Count 183, MPV 9.9, Immature Gran % (Auto) 0.500, Neut % (Auto) 52.9, Lymph % (Auto) 26.6, Wells% (Auto) 18.4 H, Eos % (Auto) 1.4, Baso % (Auto) 0.2, Absolute Neuts (auto) 3.4,Absolute Lymphs (auto) 1.69, Nucleated RBC % 0, Sodium 132 L, Potassium 4.2, Chloride 100, Carbon Dioxide 24.1, Anion Gap 8, BUN 17, Creatinine 0.67 L, EstimCreat Clear Calc 44.63 L, Est GFR (MDRD) Non-Af 84, BUN/Creatinine Ratio 25.0 H,Glucose 117 H, Calcium 9.3 07/18/25 06:15: POC Glucose 84 07/18/25 10:25: POC Glucose 99 Micro: Microbiology 07/14/25 06:04 Stool Stool Lactoferrin - Final 07/14/25 06:04 Stool Enteric Bacteriology - Final Campylobacter species 07/14/25 06:04 Stool Clostridioides difficile (PCR) - Final 07/14/25 03:05 Mucosa - Nasopharyngeal Respiratory Panel (PCR) - Final Radiography Diagnostic Testing: Radiology Impression Brain MRI 07/17/25 15:24 IMPRESSION: No acute intracranial abnormality; no acute infarct. Moderate generalized brain parenchymal volume loss, and minimal leukoaraiosis. Reading Location: [facility] Physical Exam Narrative no obvious distress no pallor no icterus no JVD s1s2 no murmurs lungs clear abdomen soft no organomegaly no edema Assessment & Plan Assessment/Plan (1) Hyponatremia: PLAN: Urine sodium more than 20, urine osmolality more than 300. 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 Onreview of previous labs, she had borderline hyponatremia before. TSH and cortisol are okay.Currently on salt tablets. 1 g 3 times daily. Sodium is better around 131 and 132. Volume status looks okay. 07/18/25 1304 Cosigner Signature (if applicable): CC: ~ Signed [facility]09-03-2025 Consult note [facility] Medical Records Department [address] [place] [address] Anesthesia Postop Eval I 07/18/25 1206 MR#: [id number] Acct: [id number] Name: YANN ADAIR Rep #:[id number] : 1935 89 From: Pietro Cunha PCP: Dr. Fitz Walters MD Status:A DM IN Y Race: C Location: [place] [address] Anesthesia: Postop Eval I Current Vital Signs Temperature: 97.3 F Pulse Rate: 87 Blood Pressure: 79/59 Respiratory Rate: 16 Pulse Ox: 97 Oxygen Delivery Method: Room Air Assessment Airway patent: Yes Spontaneous unlabored respirations: Yes Mental status: Awake and Calm nausea: No Vomiting: No Anesthesia Complication: No Fluid Hydration Crystalloid volume administer (ml): 300 Total IV fluid infused: 300 Progress Note Anesthesia document: Postop Eval 1 completed: Yes 07/18/25 1207 > Date _ Pietro Waite Signature: Date CC: ~ Signed [facility]09-03-2025 Procedure note [facility] Medical Records Department [address] [place] [address] EGD Report MR#: [id number] Acct: [id number] Name: YANN ADAIR Rep #:[id number] : 1935 89 From: Adrian Hanson DO PCP: Dr. Fitz Walters MD Status:A DM IN Patient Name: Yann Adair Procedure Date: 07/18/2025 11:26 AM Date of : 1935 Age: 89 Procedure: Upper GI endoscopy Indications: Epigastric abdominal pain Providers: Adrian Hanson DO Medicines: Monitored Anesthesia Care Patient Profile: This is an 89 year old female. Refer to note in patient chart for documentation of history and physical. Patient has symptoms of acute nausea and acute vomiting. Complications: No immediate complications. Procedure: Pre-Anesthesia Assessment: - Prior to the procedure, a History and Physical was performed, and patient medications and allergies were reviewed. The patient is competent. The risks and benefits of the procedure and the sedation options and risks were discussed with the patient. All questions were answered and informed consent was obtained. Patient identification and proposed procedure were verified by the physician in the pre-procedure area. Mental Status Examination: alert and oriented. Airway Examination: normal oropharyngeal airway and neck mobility. Respiratory Examination: clear to auscultation. CV Examination: normal. Prophylactic Antibiotics: The patient does not require prophylactic antibiotics. Prior Anticoagulants: The patient has taken no anticoagulant or antiplatelet agents. ASA Grade Assessment: II - A patient with mild systemic disease. After reviewing the risks and benefits, the patient was deemed in satisfactory condition to undergo the procedure. The anesthesia plan was to use monitored anesthesia care (MAC). Immediately prior to administration of medications, the patient was re-assessed for adequacy to receive sedatives. The heart rate, respiratory rate, oxygen saturations, blood pressure, adequacy of pulmonary ventilation, and response to care were monitored throughout the procedure. The physical status of the patient was re-assessed after the procedure. After obtaining informed consent, the endoscope was passed under direct vision. Throughout the procedure, the patient's blood pressure, pulse, and oxygen saturations were monitored continuously. The gastroscope was introduced through the mouth, and advanced to the third part of the duodenum. Small bowel enteroscopy was deemed necessary. The upper GI endoscopy was accomplished without difficulty. The patient tolerated the procedure well. Scope In: 11:44:47 AM Scope Out: 11:48:12 AM Total Procedure Duration Time 0 hours 3 minutes 25 seconds Findings: LA Grade A (one or more mucosal breaks less than 5 mm, not extending between tops of 2 mucosal folds) esophagitis with no bleeding was found 35 to 38 cm from the incisors. Diffuse moderate inflammation characterized by congestion (edema), erythema and friability was found in the gastric body and in the gastric antrum. Biopsies were taken with a cold forceps for histology. Verification of patient identification for the specimen was done. Estimated blood loss was minimal. Biopsies were taken with a cold forceps for Helicobacter pylori testing. Verification of patient identification for the specimen was done. Estimated blood loss was minimal. No gross lesions were noted in the entire examined duodenum. Impression: - LA Grade A erosive esophagitis with no bleeding. - Acute gastritis. Biopsied. - No gross lesions in the entire examined duodenum. Recommendation: - Discharge patient to home. - Resume previous diet. - Continue present medications. - Await pathology results. Procedure Code(s): --- Professional --- 58924, Small intestinal endoscopy, enteroscopy beyond second portion of duodenum, not including ileum; with biopsy, single or multiple CPT copyright 2021 [employer]. All rights reserved. The codes documented in this report are preliminary and upon registered nurse fetal review may be revised to meet current compliance requirements. Adrian Hanson DO 07/18/2025 11:52:48 AM This report has been signed electronically. Number of Addenda: 0 Note Initiated On: 07/18/2025 11:26 AM 07/18/25 1153 Date _ Ardian Hanson DO Cosigner Signature: Date (if indicated) CC: Dr. Fitz Walters MD; Adrian Hanson DO ~ Date Dictated: 07/18/25 1126 Date Transcribed: Welding Pantograph Machine Operator: RF Signed [facility]09-03-2025 Procedure note [facility] Medical Records Department [address] [place] [address] Provation Physician Letter MR#: [id number] Acct: [id number] Name: YANN ADAIR Rep #:[id number] : 1935 89 From: Adrian Hanson DO PCP: Dr. Fitz Walters MD Status:A DM IN 07/18/2025 Fitz Walters [address] [place] [address] Re : Upper GI endoscopy procedure for Yann Adair Dear Dr. Walters This procedure was performed on Wednesday, July 18, 2025. My impressions and recommendations are as follows: Impressions : - LA Grade A erosive esophagitis with no bleeding. - Acute gastritis. Biopsied. - No gross lesions in the entire examined duodenum. Recommendations : - Discharge patient to home. - Resume previous diet. - Continue present medications. - Await pathology results. My findings are described in the full procedure note, which is enclosed. If I can be of further assistance, please feel free to contact me at . Sincerely, Adrian Hanson DO 07/18/2025 11:52:48 AM This report has been signed electronically. 07/18/25 1153 Date _ Adrian Hanson DO Cosigner Signature: Date (if indicated) CC: MARISA Goetz; MARISA Merlos; Dr. Steve Alvarez DO; Dr. Candido Quiroga DO; Dr. Damian Garrison MD; Dr. Benny Junior DO; Dr. Daniel Cox MD; Dr. Fitz Walters MD; EVELIN Hebert; Adrian Hanson DO ~ Date Dictated: 07/18/25 1126 Date Transcribed: Welding Pantograph Machine Operator: RF Signed [facility]09-03-2025 Consult note [facility] Medical Records Department [address] [place] [address] Pre-Anesthesia Evaluation 07/18/25 1121 MR#: [id number] Acct: [id number] Name: YANN ADAIR Rep #:[id number] : 1935 89 From: Michelet Worthy MD PCP: Dr. Fitz Walters MD Status:A DM IN Y Race: C Location: [place] [address] ASA Classification* ASA Classification ASA Classification: 3 (Hyponatremia, recent fall, mental status changes, CKD3) Assessment & Plan Anesthesia* Anesthesia Assessment Anesthesia Assessment: Discussed sedation and/or anesthesia options, risks, benefits, and alternatives with patient/parents/legal guardian/POA. Questions invited. The patient/parents/legal guardian/POA seems to understand and agrees to proceedwith anesthesia plan. Reviewed the physical assessment, medical history, allergy history and patient home medications list prior to surgery/procedure/anesthetic and documented any changes. Performed airway and anesthesia risk assessments. The patient upon my examination was A&Ox3, and had capacity to make her own medical decisions. The patient was able to articulate the procedure she was having, and why she was having it done. I believe there was a history of mental status changes previously, however the patient is of sound mindand reasoning today to proceed with this procedure. The opportunity for questions was invited;patient had no questions. Anesthesia Type Anesthesia Type: MAC History Source History Obtained from:: Patient and Chart Anesthesia Focused Assessment* Temperature: 97.7 F Pulse Rate: 73 Blood Pressure: 120/68 Respiratory Rate: 20 Pulse Ox: 100 Oxygen Delivery Method: Room Air Airway Assessment Mouth opens: >3 cm Mallampati Score: II Teeth Condition: Dentures Neck Range of motion (ROM): Full ROM Labs Anesthesia Preop lab: CBC WBC 6.4 K/mm3 (4.4-11.0) 07/18/25 04:45 07/18/25 RBC 3.14 M/mm3 (4.2-5.4) L 07/18/25 04:45 07/18/25 Hgb 10.0 g/dL (12.0-15.0) L 07/18/25 04:45 5 Hct 30.0 % (37-47) L 07/18/25 04:45 07/18/25 Plt Count 183 K/mm3 (150-450) 07/18/25 04:45 07/18/25 CHEMISTRY Potassium 4.2 mmol/L (3.3-5.1) 07/18/25 04:45 07/18/25 Sodium 132 mmol/L (133-145) L 07/18/25 04:45 07/18/25 Magnesium 2.0 mg/dL (1.5-2.2) 07/14/25 12:04 07/14/25 Phosphorus 2.3 mg/dL (2.7-4.5) L 07/14/25 04:26 07/14/25 BUN 17 mg/dL (4-19) 07/18/25 04:45 07/18/25 Creatinine 0.67 mg/dL (0.70-1.20) L 07/18/25 04:45 Glucose 117 mg/dL (70-99) H 07/18/25 04:45 07/18/25 POC Glucose 99 mg/dL (74-106) 07/18/25 10:25 07/18/25 TSH 2.210 uIU/mL (0.300-4.200) 07/14/25 01:34 06/17 COAG PT 13.6 SECONDS (11.7-14.9) 07/13/25 20:10 Pre-Assessment Diagnosis/Proposed Procedure Planned Operative Procedure(s): EGD Anesthesia History Anesthesia History - 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 When Was Last Pacemaker Check QUESTION #4 FULL TEXT: You/Your Family Experience fever (hyperthermia) with Anesthesia Last Oral Intake Last Oral intake: Last Oral Intake NPO since 00:00 07/18/25 08:39 Meds taken in AM with sips of water? Meds patient instructed to take am of surgery PONV PONV - senior business objects developer: PONV - senior business objects developer Female HX of Motion Sickness HX of N/V After Surgery Non-Smoker Duration of Surgery greater than 60 minutes Number of Risk Factors PONV Score Height & Weight Height & Weight: Anesthesia: Height & Weight Height 5 ft 6 in 07/18/25 08:39 Weight: 64.1 kg 07/18/25 08:39 Body Mass Index (BMI) 22.8 07/18/25 08:39 Respiratory Assessment Respiratory Assessment - senior business objects developer: Respiratory Tract Infection Hx - senior business objects developer Hx Respiratory Tract Infection No 07/18/25 08:32 STOP Sleep Apnea STOP Sleep Apnea - senior business objects developer: STOP Sleep Apnea - senior business objects developer Hx Hypertension Yes 07/14/25 10:30 Hx Sleep Apnea No 07/14/25 01:56 CPAP BIPAP Do you snore loudly (louder No 07/14/25 01:56 than talking or can be heard Do you often feel tired/ No 07/14/25 01:56 fatigued/ sleepy during daytime? Has anyone observed you stop No 07/14/25 01:56 breathing during sleep? STOP Results Negative 07/14/25 01:56 QUESTION #5 FULL TEXT : Do you snore loudly (louder than talking or can be heard through closeddoors)? Tobacco Use History Tobacco Use History - senior business objects developer: Tobacco Use History - senior business objects developer Tobacco Use Smoking Status Former smoker 07/14/25 01:56 Hx Tobacco Use No 07/14/25 01:56 Years Smoking Packs Smoked per Day Smoking Cessation Date was No - quit smoking greater 07/14/25 01:56 within the last 15 years than 15 years ago Hx Smoking Cessation Date 05/10/70 07/14/25 01:56 Hx Smoking Cessation Counseling Hematologic Medial History Hematologic Hx - senior business objects developer: Hematologic Medical Hx - broommaker Hx of Blood Transfusion No 07/14/25 01:56 Hx of Transfusion in last 3 No 07/14/25 01:56 Months Date of Last Transfusion (if within last 3 months) Ever experience any problems No 07/14/25 01:56 with transfusion(s)? Specify any problems Hx of Preganancy in last 3 No 07/14/25 01:56 Months Nurse Filling Out Transfusion MGROVE 07/14/25 01:56 & Questions: Date: 07/14/25 07/14/25 01:56 Time: 01:58 07/14/25 01:56 Patient unable to answer at this time (ie. confused, unrespo /Reproduction History /Reproductive History - senior business objects developer: /Reproductive Hx- senior business objects developer Hx Now No 07/18/25 08:32 Gestational Age (in weeks): EDC: Hx Hx Para Hx Section SAB No 07/18/25 08:32 Active Medications Active Medications: Current Medications Generic Name Dose Route Start Last Admin Trade Name Freq PRN Reason Stop Dose Admin Acetaminophen 650 mg 07/14/25 01:38 07/17/25 14:24 Acetaminophen 325 Mg Tablet PO 650 mg Q6H PRN PRN Administration Pain 1-10 or Fever Aspirin 81 mg 07/14/25 08:00 07/17/25 09:21 Aspirin E.C. 81 Mg Tablet PO 81 mg BREAKFAST SHLOMO Administration Atorvastatin Calcium 10 mg 07/14/25 22:00 07/17/25 21:24 Atorvastatin Calcium 10 Mg Tablet PO 10 mg 2200 SHLOMO Administration Azithromycin 500 mg 07/17/25 10:00 07/17/25 09:22 Azithromycin 250 Mg Tablet PO 500 mg Q24 SHLOMO Administration Cyanocobalamin 1,000 mcg 07/14/25 10:00 07/17/25 09:22 Cyanocobalamin 500 Mcg Tablet PO 1,000 mcg DAILY SHLOMO Administration Dorzolamide/Timolol 1 drp 07/14/25 10:00 07/17/25 21:24 Dorzolamide Hcl/Timolol 10 Ml Bottle OPHTHALMIC 1 drp BID SHLOMO Administration Enoxaparin Sodium 30 mg 07/14/25 10:00 07/17/25 09:22 Enoxaparin 30 Mg/0.3 Ml Syringe SC 30 mg DAILY SHLOMO Administration Ferrous Sulfate 325 mg 07/14/25 08:00 07/17/25 09:21 Ferrous Sulfate 325 Mg Tablet PO 325 mg DAILYCM SHLOMO Administration Folic Acid 2 mg 07/14/25 08:00 07/17/25 09:21 Folic Acid 1 Mg Tablet PO 2 mg DAILYCM SHLOMO Administration Glucagon 1 mg 07/14/25 01:38 Glucagon 1 Mg/Ml Syringe IM X1 PRN HYPOGLYCEMIA Protocol Dextrose 250 mls @ 0 mls/hr 07/14/25 01:38 Dextrose 10%-Water IV .Q0M PRN HYPOGLYCEMIA Protocol As Directed Sodium Chloride 250 mls @ 15 mls/hr 07/14/25 01:39 IV .[id number] PRN Saline Flush Sodium Chloride 250 mls @ 15 mls/hr 07/14/25 01:39 IV .[id number] PRN Additional IVPB Infusion Insulin Human Lispro 0 unit 07/14/25 07:00 07/18/25 06:40 Insulin Lispro 100 Unit/Ml Insuln.Pen SC Not Given ACHS SHLOMO Protocol Latanoprost 1 drp 07/15/25 22:00 07/17/25 21:25 Latanoprost 0.005% 1 Bottle OPHTHALMIC 1 drp QHS SHLOMO Administration Loperamide HCl 2 mg 07/16/25 22:36 07/16/25 22:50 Loperamide 2 Mg Capsule PO 2 mg Q4H PRN PRN Administration DIARRHEA/LOOSE STOOLS Losartan Potassium 25 mg 07/14/25 10:00 07/17/25 09:21 Losartan Potassium 25 Mg Tablet PO 25 mg DAILY SHLOMO Administration Protocol Melatonin 3 mg 07/14/25 01:38 Melatonin 3 Mg Tablet PO QHS PRN PRN INSOMNIA Nutritional Formula (Lactose Free) 120 ml 07/14/25 08:00 07/17/25 18:17 Ensure Plus High Protein 120 Ml Liquid PO 120 ml TIDCM SHLOMO Administration Ondansetron HCl 4 mg 07/14/25 01:38 07/15/25 06:52 Ondansetron 4 Mg/2 Ml Vial IV 4 mg Q8H PRN PRN Administration NAUSEA/VOMITING Sodium Chloride 10 - 40 ml 07/14/25 01:39 07/17/25 21:33 0.9% Saline Lock 10 Ml Syringe IV 10 ml UD PRN Administration SALINE FLUSH Sodium Chloride 1 gm 07/14/25 16:00 07/18/25 05:29 Sodium Chloride 1 Gm Tablet PO Not Given TID SHLOMO PFSH Medical History Acute hyponatremia Cellulitis Cat bite of right lower leg with infection Rheumatoid arthritis Former tobacco use HTN (hypertension) HLD (hyperlipidemia) Irritable bowel syndrome (IBS) Hives High triglycerides Migraines Glaucoma Diabetes mellitus Cataracts, bilateral Arthritis Home Medications ?Medication ?Instructions ?Recorded ?Last Taken ?Type aspirin 81 mg tablet,delayed 81 mg PO DAILY 06/01/22 0 05/10/25 History release (Adult Low Dose Aspirin) atorvastatin 10 mg tablet 10 mg PO DAILY 06/01/2204/16 History metformin 500 mg tablet 500 mg PO BID 06/01/2205/10 History ferrous sulfate 27 mg iron tablet 65 mg PO DAILY 10/2905/10/25 History folic acid 1 mg tablet 2 mg PO DAILY 10/29/2205/10 History losartan 25 mg tablet 25 mg PO DAILY 10/29/2204/16 History methotrexate sodium 2.5 mg tablet 15 mg PO QWEEK 10/2905/09/25 History mirabegron 25 mg tablet,extended 25 mg PO QHS #30 tabs 04/17/25 05/09/25 Rx release 24 hr (Myrbetriq) dorzolamide 22.3 mg-timolol 6.8 1 drp ophthalmic (eye) BID 05/10/25 05/10/25 History mg/mL eye drops netarsudil 0.02 %-latanoprost 1 drp ophthalmic (eye) Q HS 05/10/25 05/09/25 History 0.005 % eye drops (Rocklatan) cyanocobalamin (vitamin B-12) 1,000 mcg PO DAILY #30 t abs 07/09/25 Unknown Rx 1,000 mcg tablet Allergy/AdvReac Type Severity Reaction Status Date / Time Sulfa (Sulfonamide AdvReac Intermediate Hives Verified 07/13/25 20:07 Antibiotics) Family History Father Gallstones BPH (benign prostatic hyperplasia) Mother Alzheimer dementia Surgical History History of bilateral tubal ligation History of bladder repair surgery Social History household members: family Smoking Status: Former smoker how long ago did patient quit smoking: Smoked 40 years, started 19 until quit, ~ 1 ppd. alcohol intake: never substance use type: does not use caffeine: Yes Type: coffee Number of servings: 1 what type of physical activity do you participate in: none rancho/temple: Jew seatbelt use: always Review of Systems (Anesthesia) ROS Narrative System reviewed and no additional complaints, except as documented. Physical Exam Const alert, oriented x3 and average body habitus Resp normal respiratory effort, normal air movement and clear to auscultation bilaterally Cardio regular rate, regular rhythm and no murmurs 07/18/25 1131 MD> Date _ Michelet Worthy MD Cosigner Signature: Date CC: ~ Signed [facility]09-03-2025 Consult note [facility] Medical Records Department [address] [place] [address] Consultation - GI 07/18/25 0953 MR#: [id number] Acct: [id number] Name: YANN ADAIR Rep #:[id number] : 1935 89 From: Laurence najera NEWS COPY EDITOR-C PCP: Dr. Fitz Walters MD Status:A DM IN Location: [place] [address] ADDENDUM by Adrian Hanson DO on 07/18/25 at 1130 Addendum Patient seen and examined and agree with above recommendations. 07/18/25 1130 Cosigner Signature (if applicable): cc: Dr. Fitz Walters MD ~* Signed HPI Consult Data Date of Consult: 07/18/25 HPI Narrative Reason for Consultation: nausea and vomiting HPI Narrative: YANN ADAIR, is a 89 F sitting up in chair at bedside, pleasant, [place], visually impaired - presently NPO - denies any pain, N/V, diarrhea - A&Ox3 - denies any bleeding - reports weight loss of 3lbs in past month - hungry - denies any emesis in 2 days - lives with daughter and son-in-law - denies dysphagia, odynophagia - dentures - reports good fit - reports eating slow - denies any prior EGD - h/o colon x2 negative per patient PFSH Medical History Acute hyponatremia Cellulitis Cat bite of right lower leg with infection Rheumatoid arthritis Former tobacco use HTN (hypertension) HLD (hyperlipidemia) Irritable bowel syndrome (IBS) Hives High triglycerides Migraines Glaucoma Diabetes mellitus Cataracts, bilateral Arthritis Home Medications ?Medication ?Instructions ?Recorded ?Last Taken ?Type aspirin 81 mg tablet,delayed 81 mg PO DAILY 06/01/22 0 05/10/25 History release (Adult Low Dose Aspirin) atorvastatin 10 mg tablet 10 mg PO DAILY 06/01/2204/16 History metformin 500 mg tablet 500 mg PO BID 06/01/2205/10 History ferrous sulfate 27 mg iron tablet 65 mg PO DAILY 10/2905/10/25 History folic acid 1 mg tablet 2 mg PO DAILY 10/29/2205/10 History losartan 25 mg tablet 25 mg PO DAILY 10/29/2204/16 History methotrexate sodium 2.5 mg tablet 15 mg PO QWEEK 10/2905/09/25 History mirabegron 25 mg tablet,extended 25 mg PO QHS #30 tabs 04/17/25 05/09/25 Rx release 24 hr (Myrbetriq) dorzolamide 22.3 mg-timolol 6.8 1 drp ophthalmic (eye) BID 05/10/25 05/10/25 History mg/mL eye drops netarsudil 0.02 %-latanoprost 1 drp ophthalmic (eye) Q HS 05/10/25 05/09/25 History 0.005 % eye drops (Rocklatan) cyanocobalamin (vitamin B-12) 1,000 mcg PO DAILY #30 t abs 07/09/25 Unknown Rx 1,000 mcg tablet Allergy/AdvReac Type Severity Reaction Status Date / Time Sulfa (Sulfonamide AdvReac Intermediate Hives Verified 07/13/25 20:07 Antibiotics) Family History Father Gallstones BPH (benign prostatic hyperplasia) Mother Alzheimer dementia Surgical History History of bilateral tubal ligation History of bladder repair surgery Social History household members: family Smoking Status: Former smoker how long ago did patient quit smoking: Smoked 40 years, started 19 until quit, ~ 1 ppd. alcohol intake: never substance use type: does not use caffeine: Yes Type: coffee Number of servings: 1 what type of physical activity do you participate in: none rancho/temple: Jew seatbelt use: always ROS Constitutional Constitutional: Reports as per HPI Eyes Eyes: Reports loss of vision Respiratory/Chest Respiratory/Chest: Denies dyspnea on exertion, mouth breathing, productive cough, shortness of breath at rest or shortness of breath with exertion Gastrointestinal Gastrointestinal: Reports as per HPI Musculoskeletal Musculoskeletal: Reports abnormal gait Physical Exam Narrative [place], upper and lower dentures Const no apparent distress General Appearance: well developed Orientation / Consciousness: oriented to person, oriented to place and oriented to time Eyes Eyes Narrative: Blind Sclera: sclera normal Neck full ROM General: normal visual inspection Resp Effort and Inspection: able to speak in complete sentences and symmetric chest movement Auscultation: clear to auscultation bilaterally Cardio regular rate and regular rhythm GI GI Narrative: ABD soft, non-tended, no distension, BS+x4 Extremity Extremity Narrative: 1+ LLE pedal edema Peripheral Pulses: Yes pulses 2+ throughout Skin Skin Narrative: healing abrasion with crusting noted on right knee, no erythema, warmth, or drainage noted Lab / Micro Data Attestation: I reviewed the patient's lab results. 07/18/25 04:45 07/18/25 04:45 Labs: Laboratory Results - last 24 hr 07/17/25 10:15: Sodium 131 L, Potassium 4.3, Chloride 99, Carbon Dioxide 24.9, Anion Gap 8, BUN 16,Creatinine 0.60 L, Estim Creat Clear Calc 44.63 L, Est GFR (MDRD) Non-Af 86, BUN/Creatinine Ratio 27.1 H, Glucose 126 H, Calcium 9.2 07/17/25 11:27: POC Glucose 75 07/17/25 16:38: POC Glucose 115 H 07/17/25 21:22: POC Glucose 138 H 07/18/25 04:45: WBC 6.4, RBC 3.14 L, Hgb 10.0 L, Hct 30.0 L, MCV 95.5, MCH 31.8,MCHC 33.3, RDW Std Deviation 46.3 H, RDW Coeff of Swapnil 13.6, Plt Count 183, MPV 9.9, Immature Gran % (Auto) 0.500, Neut % (Auto) 52.9, Lymph % (Auto) 26.6, Wells% (Auto) 18.4 H, Eos % (Auto) 1.4, Baso % (Auto) 0.2, Absolute Neuts (auto) 3.4,Absolute Lymphs (auto) 1.69, Nucleated RBC % 0, Sodium 132 L, Potassium 4.2, Chloride 100, Carbon Dioxide 24.1, Anion Gap 8, BUN 17, Creatinine 0.67 L, EstimCreat Clear Calc 44.63 L, Est GFR (MDRD) Non-Af 84, BUN/Creatinine Ratio 25.0 H,Glucose 117 H, Calcium 9.3 07/18/25 06:15: POC Glucose 84 Imaging Radiology Impression Brain MRI 07/17/25 15:24 IMPRESSION: No acute intracranial abnormality; no acute infarct. Moderate generalized brain parenchymal volume loss, and minimal leukoaraiosis. Reading Location: [id number] Assessment & Plan Assessment/Plan (1) Campylobacter gastroenteritis: (2) Nausea and vomiting: PLAN: Plan 89y/o female initially presented to the ED on 07/13/2025 after a fall with associated SOB and confusion. CT head was negative for acute intracranial process. CT A&P demonstrated diffuse gastric wall thickening suggestive of gastritis, fluid-filled colon likely secondary to colitis/enterocolitis,and mild SB thickening w/o evidence of perforation or pneumatosis. Stool testing waspositive for Campylobacter and lactoferrin, negative for C. Diff. On admission she was noted to have mild anemia with HGB 11.6, and today her HGB has mildly decreased to 10. Hyponatremia is improving (128 -> 132). She denies hematemesis,melena, or hematochezia. She reports a 3lb weight loss over the past month but endorses a good appetite, eats slowly, denies dysphagia and odynophagia. Upper and lower dentures, reporting good fit. She is afebrile, denies abdominal pain, bleeding, N/V. Last episode of emesisper patient was 2d ago, though her daughter remains concerned about N/V. Plan to proceed with EGD today to further evaluate gastric wall thickening seen on CT and r/o PUD, malignancy, or other structural pathology. No overt GIB noted; etiology of Hgb decline may be multifactoral including volume status and nutritional factors, but will evaluate further with EGD as planned. Continue azithromycin to complete a 7d course for Campylobacter enterocolitis. 07/18/25 1017 Cosigner Signature (if applicable): CC: Dr. Fitz Walters MD~ Signed [facility]09-02-2025 Progress note Author Damian Garrison [facility] Note Date/Time July 17, 2025 12:10pm [facility] Medical Records Department [address] [place] [address] Progress Note - Nephrology 07/17/25 1209 MR#: [id number] Acct: [id number] Name: YANN ADAIR Rep #:[id number] : 1935 89 From: Damian george MD PCP: Dr. Fitz Walters MD Status:A DM IN Location: [place] [address] Subjective Subjective Denies any new complaints. Some nausea associated with salt tablets otherwise no GI issues. No diarrhea. No significant lower extremity edema. Objective Data Objective Data Vital Signs: Vital Signs Temp Pulse Resp BP Pulse Ox O2 Del Method 98.1 F 73 14 124/74 H 100 Room Air 07/17/25 09:15 07/17/25 09:15 07/17/25 09:15 07/17/25 09:15 07/17/25 09:15 07/17/25 09:15 Oxygen Delivery Method Room Air Weight: 64.3 kg Body Mass Index (BMI) 22.8 Intake & Output: Intake and Output for Last 24 Hours 07/15/25 07/16/25 07/17/25 23:59 23:59 23:59 Intake Total 655 / 855 795 / 1295 800 / 800 Output Total 2175 / 2175 Balance 655 / -20 -1380 / -880 800 / 800 Lab / Micro Data 07/16/25 06:52 07/17/25 10:15 Labs: Laboratory Results - last 24 hr 07/16/25 16:32: POC Glucose 94 07/16/25 20:33: POC Glucose 121 H 07/17/25 06:13: POC Glucose 113 H 07/17/25 10:15: Sodium 131 L, Potassium 4.3, Chloride 99, Carbon Dioxide 24.9, Anion Gap 8, BUN 16, Creatinine 0.60 L, Estim Creat Clear Calc 44.63 L, Est GFR (MDRD) Non-Af 86, BUN/Creatinine Ratio 27.1 H, Glucose 126 H, Calcium 9.2 07/17/25 11:27: POC Glucose 75 Micro: Microbiology 07/14/25 06:04 Stool Stool Lactoferrin - Final 07/14/25 06:04 Stool Enteric Bacteriology - Final Campylobacter species 07/14/25 06:04 Stool Clostridioides difficile (PCR) - Final 07/14/25 03:05 Mucosa - Nasopharyngeal Respiratory Panel (PCR) - Final Physical Exam Narrative no obvious distress no pallor no icterus no JVD s1s2 no murmurs lungs clear abdomen soft no organomegaly no edema Assessment & Plan Assessment/Plan (1) Hyponatremia: PLAN: Urine sodium more than 20, urine osmolality more than 300. 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 On review of previous labs, she had borderline hyponatremia before. TSH and cortisol are okay.Currently on salt tablets. 1 g 3 times daily. Sodium is better around 131 and 132. Volume status looks okay. She says there is some nausea associated with salt tablets. Only other option is urea, outpatient this may be expensive. If she continues to need salt tablets as outpatient, we will try to get those. 07/17/25 1210 <Electronically signed by Damian Garrison MD> Cosigner Signature (if applicable): CC: ~ Signed [facility] Work Phone: 1(607) 443-633009-02-[address] [facility] Medical Records Department [address] [place] [address] Progress Note - Nephrology 07/17/25 1209 MR#: [id number] Acct: [id number] Name: YANN ADAIR Rep #:[id number] : 1935 89 From: Damian george MD PCP: Dr. Fitz Walters MD Status:A DM IN Location: [place] [id number]- 1 Subjective Subjective Denies any new complaints. Some nausea associated with salt tablets otherwise no GI issues. No diarrhea. No significant lower extremity edema. Objective Data Objective Data Vital Signs: Vital Signs Temp Pulse Resp BP Pulse Ox O2 Del Method 98.1 F 73 14 124/74 H 100 Room Air 07/17/25 09:15 07/17/25 09:15 07/17/25 09:15 07/17/25 09:15 07/17/25 09:15 07/17/25 09:15 Oxygen Delivery Method Room Air Weight: 64.3 kg Body Mass Index (BMI) 22.8 Intake & Output: Intake and Output for Last 24 Hours 07/15/25 07/16/25 07/17/25 23:59 23:59 23:59 Intake Total 655 / 855 795 / 1295 800 / 800 Output Total 2175 / 2175 Balance 655 / -20 -1380 / -880 800 / 800 Lab / Micro Data 07/16/25 06:52 07/17/25 10:15 Labs: Laboratory Results - last 24 hr 07/16/25 16:32: POC Glucose 94 07/16/25 20:33: POC Glucose 121 H 07/17/25 06:13: POC Glucose 113 H 07/17/25 10:15: Sodium 131 L, Potassium 4.3, Chloride 99, Carbon Dioxide 24.9, Anion Gap 8, BUN 16,Creatinine 0.60 L, Estim Creat Clear Calc 44.63 L, Est GFR (MDRD) Non-Af 86, BUN/Creatinine Ratio 27.1 H, Glucose 126 H, Calcium 9.2 07/17/25 11:27: POC Glucose 75 Micro: Microbiology 07/14/25 06:04 Stool Stool Lactoferrin - Final 07/14/25 06:04 Stool Enteric Bacteriology - Final Campylobacter species 07/14/25 06:04 Stool Clostridioides difficile (PCR) - Final 07/14/25 03:05 Mucosa - Nasopharyngeal Respiratory Panel (PCR) - Final Physical Exam Narrative no obvious distress no pallor no icterus no JVD s1s2 no murmurs lungs clear abdomen soft no organomegaly no edema Assessment & Plan Assessment/Plan (1) Hyponatremia: PLAN: Urine sodium more than 20, urine osmolality more than 300. 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 Onreview of previous labs, she had borderline hyponatremia before. TSH and cortisol are okay.Currently on salt tablets. 1 g 3 times daily. Sodium is better around 131 and 132. Volume status looks okay.She says there is some nausea associated with salt tablets. Only other option is urea, outpatient this may be expensive. If she continues to need salt tablets as outpatient, we will try to get those. 07/17/25 1210 Cosigner Signature (if applicable): CC: ~ Signed [facility]09-02-2025 Progress note Author Marbella Goetz [facility] Note Date/Time July 16, 2025 10:44pm [facility] Medical Records Department [address] [place] [address] Progress Note - Hospitalist 07/16/252237 MR#: [id number] Acct: [id number] Name: SEHRYL ADAIRYANN Martha Rep #:[id number] : 1935 89 From: Marbella Marin PCP: Dr. Fitz Walters MD Status:A DM IN Location: [place] [address] Reason for Visit Chief Complaint: Fever and Confusion. Subjective Subjective Admitted with gastroenteritis, negative c.diff PCR, positive Campylobacter without fevers or bloody stools. Nursing reports several loose BMs since 1900 tonight, pt asking for anti-diarrheal. Objective Data Objective Data Vital Signs: Vital Signs Temp Pulse Resp BP Pulse Ox O2 Del Method 98.0 F 72 17 113/61 94 Room Air 07/16/25 17:02 07/16/25 17:02 07/16/25 17:02 07/16/25 17:02 07/16/25 17:02 07/16/25 11:13 Oxygen Delivery Method Room Air Weight: 140 lb 14.006 oz Body Mass Index (BMI) 22.7 Intake & Output: Intake and Output for Last 24 Hours 07/14/25 07/15/25 07/16/25 23:59 23:59 23:59 Intake Total 655 / 855 795 / 795 Output Total 217 / 217 Balance 655 / -20 -1380 / -1380 Lab / Micro Data 07/16/25 06:52 07/16/25 06:52 Labs: Laboratory Results - last 24 hr 07/16/25 06:29: POC Glucose 100 07/16/25 06:52: WBC 4.5, RBC 3.34 L, Hgb 10.6 L, Hct 32.5 L, MCV 97.3, MCH 31.7,MCHC 32.6, RDW Std Deviation 47.7 H, RDW Coeff of Swapnil 13.4, Plt Count 173, MPV 9.7, Sodium 132 L, Potassium 3.7, Chloride 103, Carbon Dioxide 21.9, Anion Gap 8, BUN 16, Creatinine 0.67 L, Estim Creat Clear Calc 44.63 L, Est GFR (MDRD) Non-Af 84, BUN/Creatinine Ratio 23.7 H, Glucose 105 H, Calcium 8.9 07/16/25 11:24: POC Glucose 146 H 07/16/25 16:32: POC Glucose 94 07/16/25 20:33: POC Glucose 121 H Micro: Microbiology 07/14/25 06:04 Stool Stool Lactoferrin - Final 07/14/25 06:04 Stool Enteric Bacteriology - Final Campylobacter species 07/14/25 06:04 Stool Clostridioides difficile (PCR) - Final 07/14/25 03:05 Mucosa - Nasopharyngeal Respiratory Panel (PCR) - Final Assessment & Plan Assessment/Plan (1) Campylobacter gastroenteritis: PLAN: * monitor for fevers and bloody stools * loperamide 2mg PO Q4h PRN loose stools * encourage PO fluids 07/16/254 <Electronically signed by Marbella CUNNINGHAM> Cosigner Signature (if applicable): CC: ~ Signed [facility] Work Phone: 1(940) 978-923509-01-[address] [facility] Medical Records Department [address] [place] [address] Progress Note - Hospitalist 07/16/252237 MR#: [id number] Acct: [id number] Name: YANN ADAIR Rep #:[id number] : 1935 89 From: Marbella Marin PCP: Dr. Fitz Walters MD Status:A DM IN Location: [place] [address] Reason for Visit Chief Complaint: Fever and Confusion. Subjective Subjective Admitted with gastroenteritis, negative c.diff PCR, positive Campylobacter without fevers or bloodystools. Nursing reports several loose BMs since 1900 tonight, pt asking for anti-diarrheal. Objective Data Objective Data Vital Signs: Vital Signs Temp Pulse Resp BP Pulse Ox O2 Del Method 98.0 F 72 17 113/61 94 Room Air 07/16/25 17:02 07/16/25 17:02 07/16/25 17:02 07/16/25 17:02 07/16/25 17:02 07/16/25 11:13 Oxygen Delivery Method Room Air Weight: 140 lb 14.006 oz Body Mass Index (BMI) 22.7 Intake & Output: Intake and Output for Last 24 Hours 07/14/25 07/15/25 07/16/25 23:59 23:59 23:59 Intake Total 655 / 855 795 / 795 Output Total 2175 / 217 Balance 655 / -20 -1380 / -1380 Lab / Micro Data 07/16/25 06:52 07/16/25 06:52 Labs: Laboratory Results - last 24 hr 07/16/25 06:29: POC Glucose 100 07/16/25 06:52: WBC 4.5, RBC 3.34 L, Hgb 10.6 L, Hct 32.5 L, MCV 97.3, MCH 31.7,MCHC 32.6, RDW Std Deviation 47.7 H, RDW Coeff of Swapnil 13.4, Plt Count 173, MPV 9.7, Sodium 132 L, Potassium 3.7, Chloride 103, Carbon Dioxide 21.9, Anion Gap 8, BUN 16, Creatinine 0.67 L, Estim Creat Clear Calc 44.63 L,Est GFR (MDRD) Non-Af 84, BUN/Creatinine Ratio 23.7 H, Glucose 105 H, Calcium 8.9 07/16/25 11:24: POC Glucose 146 H 07/16/25 16:32: POC Glucose 94 07/16/25 20:33: POC Glucose 121 H Micro: Microbiology 07/14/25 06:04 Stool Stool Lactoferrin - Final 07/14/25 06:04 Stool Enteric Bacteriology - Final Campylobacter species 07/14/25 06:04 Stool Clostridioides difficile (PCR) - Final 07/14/25 03:05 Mucosa - Nasopharyngeal Respiratory Panel (PCR) - Final Assessment & Plan Assessment/Plan (1) Campylobacter gastroenteritis: PLAN: * monitor for fevers and bloody stools * loperamide 2mg PO Q4h PRN loose stools * encourage PO fluids 07/16/25 2244 Cosigner Signature (if applicable): CC: ~ Signed [facility]09-01-2025 Progress note Author Benny Junior [facility] Note Date/Time July 16, 2025 4:45pm [facility] Medical Records Department [address] [place] [address] Progress Note - Hospitalist 07/16/25 1639 MR#: [id number] Acct: [id number] Name: YANN ADAIR Rep #:[id number] : 1935 89 From: Benny Junior DO PCP: Dr. Fitz Walters MD Status:A DM IN Location: [place] [address] Reason for Visit Chief Complaint: Fever and Confusion. Subjective Subjective Patient was seen and examined today, she does not appear to be in any distress. Patient's sodium today was 132. Objective Data Objective Data Vital Signs: Vital Signs Temp Pulse Resp BP Pulse Ox O2 Del Method 98.0 F 67 17 114/60 94 Room Air 07/16/25 11:13 07/16/25 11:13 07/16/25 11:13 07/16/25 11:13 07/16/25 11:13 07/16/25 11:13 Oxygen Delivery Method Room Air Weight: 63.9 kg Body Mass Index (BMI) 22.7 Intake & Output: Intake and Output for Last 24 Hours 07/14/25 07/15/25 07/16/25 23:59 23:59 23:59 Intake Total 655 / 855 795 / 795 Output Total 1775 / 1775 Balance 655 / -20 -980 / -980 Lab / Micro Data 07/16/25 06:52 07/16/25 06:52 Labs: Laboratory Results - last 24 hr 07/15/25 10:31: POC Glucose 132 H 07/15/25 16:59: POC Glucose 150 H 07/15/25 20:51: POC Glucose 139 H 07/16/25 06:29: POC Glucose 100 07/16/25 06:52: WBC 4.5, RBC 3.34 L, Hgb 10.6 L, Hct 32.5 L, MCV 97.3, MCH 31.7,MCHC 32.6, RDW Std Deviation 47.7 H, RDW Coeff of Swapnil 13.4, Plt Count 173, MPV 9.7, Sodium 132 L, Potassium 3.7, Chloride 103, Carbon Dioxide 21.9, Anion Gap 8, BUN 16, Creatinine 0.67 L, Estim Creat Clear Calc 44.63 L, Est GFR (MDRD) Non-Af 84, BUN/Creatinine Ratio 23.7 H, Glucose 105 H, Calcium 8.9 07/16/25 11:24: POC Glucose 146 H Micro: Microbiology 07/14/25 06:04 Stool Stool Lactoferrin - Final 07/14/25 06:04 Stool Enteric Bacteriology - Final Campylobacter species 07/14/25 06:04 Stool Clostridioides difficile (PCR) - Final 07/14/25 03:05 Mucosa - Nasopharyngeal Respiratory Panel (PCR) - Final Physical Exam Const alert, no apparent distress and healthy appearing General Appearance: cooperative, well kempt and well developed Orientation / Consciousness: awake, oriented to person and oriented to place HEENT normocephalic, head/scalp atraumatic and moist oral mucous membranes Eyes PERRL, EOMs intact bilaterally and conjunctivae normal Neck supple, no JVD, thyroid normal and no carotid bruits General: trachea midline Resp normal respiratory effort, no retractions, no use of accessory muscles and clearto auscultation bilaterally Auscultation: Negative for rales, rhonchi or wheezes Cardio regular rate, regular rhythm, S1 normal heart sound, S2 normal heart sound, no murmurs, no rub and no gallops GI normal to inspection, nondistended, normoactive bowel sounds, soft to palpation,non-tender and non-distended Extremity no clubbing, cyanosis or edema Skin no rashes or lesions noted General Skin Exam: no breakdown Neuro CN's II-XII intact bilaterally, moves all extremities, no focal motor deficits and no sensory deficits noted Sensorium / Orientation: awake, alert, oriented to person and oriented to place Speech: speech normal Psych affect normal Assessment & Plan Assessment/Plan (1) Campylobacter gastroenteritis: PLAN: Plan 1. 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-patient's sodium is almost corrected at this time, BMP will be repeated tomorrow #4 hypomagnesemia-corrected at this time #5 essential hypertension-patient will remain on her present medication #6 hyperlipidemia-patient is on a statin #7 generalized debility secondary to advanced age and multiple medical problems- PT and OT continue to work with the patient Total clinical time spent by myself addressing the patient's medical issues, reviewing all of her data, and collaborating with the patient's care team: 35 minutes Charges/Coding Visit Charges Inpatient E&M: 57285 Subs Hosp L2 07/16/25 1645 <Electronically signed by Benny Junior DO> Cosigner Signature (if applicable): CC: ~ Signed [facility] Work Phone: 1(930) 839-950109-01-[address] [facility] Medical Records Department [address] [place] [address] Progress Note - Hospitalist 07/16/25 1639 MR#: [id number] Acct: [id number] Name: YANN ADAIR Rep #:[id number] : 1935 89 From: Benny Junior DO PCP: Dr. Fitz Walters MD Status:A DM IN Location: [place] [address] Reason for Visit Chief Complaint: Fever and Confusion. Subjective Subjective Patient was seen and examined today, she does not appear to be in any distress. Patient's sodium today was 132. Objective Data Objective Data Vital Signs: Vital Signs Temp Pulse Resp BP Pulse Ox O2 Del Method 98.0 F 67 17 114/60 94 Room Air 07/16/25 11:13 07/16/25 11:13 07/16/25 11:13 07/16/25 11:13 07/16/25 11:13 07/16/25 11:13 Oxygen Delivery Method Room Air Weight: 63.9 kg Body Mass Index (BMI) 22.7 Intake & Output: Intake and Output for Last 24 Hours 07/14/25 07/15/25 07/16/25 23:59 23:59 23:59 Intake Total 655 / 855 795 / 795 Output Total 1775 / 1775 Balance 655 / -20 -980 / -980 Lab / Micro Data 07/16/25 06:52 07/16/25 06:52 Labs: Laboratory Results - last 24 hr 07/15/25 10:31: POC Glucose 132 H 07/15/25 16:59: POC Glucose 150 H 07/15/25 20:51: POC Glucose 139 H 07/16/25 06:29: POC Glucose 100 07/16/25 06:52: WBC 4.5, RBC 3.34 L, Hgb 10.6 L, Hct 32.5 L, MCV 97.3, MCH 31.7,MCHC 32.6, RDW Std Deviation 47.7 H, RDW Coeff of Swapnil 13.4, Plt Count 173, MPV 9.7, Sodium 132 L, Potassium 3.7, Chloride 103, Carbon Dioxide 21.9, Anion Gap 8, BUN 16, Creatinine 0.67 L, Estim Creat Clear Calc 44.63 L,Est GFR (MDRD) Non-Af 84, BUN/Creatinine Ratio 23.7 H, Glucose 105 H, Calcium 8.9 07/16/25 11:24: POC Glucose 146 H Micro: Microbiology 07/14/25 06:04 Stool Stool Lactoferrin - Final 07/14/25 06:04 Stool Enteric Bacteriology - Final Campylobacter species 07/14/25 06:04 Stool Clostridioides difficile (PCR) - Final 07/14/25 03:05 Mucosa - Nasopharyngeal Respiratory Panel (PCR) - Final Physical Exam Const alert, no apparent distress and healthy appearing General Appearance: cooperative, well kempt and well developed Orientation / Consciousness: awake, oriented to person and oriented to place HEENT normocephalic, head/scalp atraumatic and moist oral mucous membranes Eyes PERRL, EOMs intact bilaterally and conjunctivae normal Neck supple, no JVD, thyroid normal and no carotid bruits General: trachea midline Resp normal respiratory effort, no retractions, no use of accessory muscles and clearto auscultation bilaterally Auscultation: Negative for rales, rhonchi or wheezes Cardio regular rate, regular rhythm, S1 normal heart sound, S2 normal heart sound, no murmurs, no rub and no gallops GI normal to inspection, nondistended, normoactive bowel sounds, soft to palpation,non-tender and non-distended Extremity no clubbing, cyanosis or edema Skin no rashes or lesions noted General Skin Exam: no breakdown Neuro CN's II-XII intact bilaterally, moves all extremities, no focal motor deficits and no sensory deficits noted Sensorium / Orientation: awake, alert, oriented to person and oriented to place Speech: speech normal Psych affect normal Assessment & Plan Assessment/Plan (1) Campylobacter gastroenteritis: PLAN: Plan 1. 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-patient's sodium is almost corrected at this time, BMP will be repeated tomorrow #4 hypomagnesemia-corrected at this time #5 essential hypertension-patient will remain on her present medication #6 hyperlipidemia-patient is on a statin #7 generalized debility secondary to advanced age and multiple medical problems- PT and OT continue to work with the patient Total clinical time spent by myself addressing the patient's medical issues, reviewing all of her data, and collaborating with the patient's care team: 35 minutes Charges/Coding Visit Charges Inpatient E&M: 46194 Subs Hosp L2 07/16/25 1645 Cosigner Signature (if applicable): CC: ~ Signed [facility]08-31-2025 Consult note Author Damian Garrison [facility] Note Date/Time July 15, 2025 2: 40pm [facility] Medical Records Department [address] [place] [address] Consultation - Nephrology 07/15/25 1437 MR#: [id number] Acct: [id number] Name: YANN ADAIR Rep #:[id number] : 1935 89 From: Damian george MD PCP: Dr. Fitz Walters MD Status:A DM IN Location: [place] [id number] Assessment & Plan Assessment/Plan (1) Hyponatremia: PLAN: Urine sodium more than 20, urine osmolality more than 300. 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 On review of previous labs, she had borderline hyponatremia before. TSH and cortisol are okay. Add salt tablets for now. HPI Consult Data Date of Consult: 07/15/25 HPI Narrative Reason for Consultation: Hyponatremia HPI Narrative: YANN ADAIR, is a 89 F who presents to the hospital with weakness, diarrhea, confusion. Nephrology on consultation in view of hyponatremia. Sodium was around 125 on admission. So far diagnosed with Campylobacter enteritis. [facility] Medical History Acute hyponatremia Cellulitis Cat bite of right lower leg with infection Rheumatoid arthritis Former tobacco use HTN (hypertension) HLD (hyperlipidemia) Irritable bowel syndrome (IBS) Hives High triglycerides Migraines Glaucoma Diabetes mellitus Cataracts, bilateral Arthritis Home Medications ?Medication ?Instructions ?Recorded ?Last Taken ?Type aspirin 81 mg tablet,delayed 81 mg PO DAILY 06/01/22 0 05/10/25 History release (Adult Low Dose Aspirin) atorvastatin 10 mg tablet 10 mg PO DAILY 06/01/2204/16 History metformin 500 mg tablet 500 mg PO BID 06/01/2205/10 History ferrous sulfate 27 mg iron tablet 65 mg PO DAILY 10/2905/10/25 History folic acid 1 mg tablet 2 mg PO DAILY 10/29/2205/10 History losartan 25 mg tablet 25 mg PO DAILY 10/29/2204/16 History methotrexate sodium 2.5 mg tablet 15 mg PO QWEEK 10/2905/09/25 History mirabegron 25 mg tablet,extended 25 mg PO QHS #30 tabs 04/17/25 05/09/25 Rx release 24 hr (Myrbetriq) dorzolamide 22.3 mg-timolol 6.8 1 drp ophthalmic (eye) BID 05/10/25 05/10/25 History mg/mL eye drops netarsudil 0.02 %-latanoprost 1 drp ophthalmic (eye) Q HS 05/10/25 05/09/25 History 0.005 % eye drops (Rocklatan) cyanocobalamin (vitamin B-12) 1,000 mcg PO DAILY #30 t abs 07/09/25 Unknown Rx 1,000 mcg tablet Allergy/AdvReac Type Severity Reaction Status Date / Time Sulfa (Sulfonamide AdvReac Intermediate Hives Verified 07/13/25 20:07 Antibiotics) Family History Father Gallstones BPH (benign prostatic hyperplasia) Mother Alzheimer dementia Surgical History History of bilateral tubal ligation History of bladder repair surgery Social History household members: family Smoking Status: Former smoker how long ago did patient quit smoking: Smoked 40 years, started 19 until quit, ~ 1 ppd. alcohol intake: never substance use type: does not use caffeine: Yes Type: coffee Number of servings: 1 what type of physical activity do you participate in: none rancho/temple: Jew seatbelt use: always ROS ROS Narrative Negative except history Physical Exam Narrative Alert awake oriented x 3 no obvious distress no pallor no icterus no JVD s1s2 no murmurs lungs clear abdomen soft no organomegaly no edema Lab / Micro Data 07/15/25 05:35 07/15/25 05:35 Labs: Laboratory Results - last 24 hr 07/14/25 17:08: POC Glucose 156 H 07/14/25 21:11: POC Glucose 143 H 07/15/25 02:17: POC Glucose 144 H 07/15/25 05:35: WBC 4.3 L, RBC 3.52 L, Hgb 11.3 L, Hct 34.2 L, MCV 97.2, MCH 32.1 H, MCHC 33.0, RDW Std Deviation 48.0 H, RDW Coeff of Swapnil 13.7, Plt Count 184, MPV 9.9, Sodium 128 L, Potassium 4.1, Chloride 96 L, Carbon Dioxide 21.5, Anion Gap 11, BUN 17, Creatinine 0.71, Estim Creat Clear Calc 44.63 L, Est GFR (MDRD) Non-Af 81, BUN/Creatinine Ratio 24.4 H, Glucose 137 H, Calcium 9.0 07/15/25 06:04: POC Glucose 132 H 07/15/25 1440 <Electronically signed by Damian Garrison MD> Cosigner Signature (if applicable): CC: Dr. Fitz Walters MD~ Signed [facility] Work Phone: 1(286) 997-315108-31-[address] [facility] Medical Records Department [address] [place] [address] Consultation - Nephrology 07/15/25 1437 MR#: [id number] Acct: [id number] Name: YANN ADAIR Rep #:[id number] : 1935 89 From: Damian george MD PCP: Dr. Fitz Walters MD Status:A DM IN Location: [place] [address] Assessment & Plan Assessment/Plan (1) Hyponatremia: PLAN: Urine sodium more than 20, urine osmolality more than 300. 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 Onreview of previous labs, she had borderline hyponatremia before. TSH and cortisol are okay. Add salt tablets for now. HPI Consult Data Date of Consult: 07/15/25 HPI Narrative Reason for Consultation: Hyponatremia HPI Narrative: YANN ADAIR, is a 89 F who presents to the hospital with weakness, diarrhea, confusion. Nephrology on consultation in view of hyponatremia. Sodium was around 125 on admission. So far diagnosed withCampylobacter enteritis. [facility] Medical History Acute hyponatremia Cellulitis Cat bite of right lower leg with infection Rheumatoid arthritis Former tobacco use HTN (hypertension) HLD (hyperlipidemia) Irritable bowel syndrome (IBS) Hives High triglycerides Migraines Glaucoma Diabetes mellitus Cataracts, bilateral Arthritis Home Medications ?Medication ?Instructions ?Recorded ?Last Taken ?Type aspirin 81 mg tablet,delayed 81 mg PO DAILY 06/01/22 0 05/10/25 History release (Adult Low Dose Aspirin) atorvastatin 10 mg tablet 10 mg PO DAILY 06/01/22 06/2 05/09 History metformin 500 mg tablet 500 mg PO BID 06/01/2205/10 History ferrous sulfate 27 mg iron tablet 65 mg PO DAILY 10/2905/10/25 History folic acid 1 mg tablet 2 mg PO DAILY 10/29/2205/10 History losartan 25 mg tablet 25 mg PO DAILY 10/29/2204/16 History methotrexate sodium 2.5 mg tablet 15 mg PO QWEEK 10/2905/09/25 History mirabegron 25 mg tablet,extended 25 mg PO QHS #30 tabs 04/17/25 05/09/25 Rx release 24 hr (Myrbetriq) dorzolamide 22.3 mg-timolol 6.8 1 drp ophthalmic (eye) BID 05/10/25 05/10/25 History mg/mL eye drops netarsudil 0.02 %-latanoprost 1 drp ophthalmic (eye) Q HS 05/10/25 05/09/25 History 0.005 % eye drops (Rocklatan) cyanocobalamin (vitamin B-12) 1,000 mcg PO DAILY #30 t abs 07/09/25 Unknown Rx 1,000 mcg tablet Allergy/AdvReac Type Severity Reaction Status Date / Time Sulfa (Sulfonamide AdvReac Intermediate Hives Verified 07/13/25 20:07 Antibiotics) Family History Father Gallstones BPH (benign prostatic hyperplasia) Mother Alzheimer dementia Surgical History History of bilateral tubal ligation History of bladder repair surgery Social History household members: family Smoking Status: Former smoker how long ago did patient quit smoking: Smoked 40 years, started 19 until quit, ~ 1 ppd. alcohol intake: never substance use type: does not use caffeine: Yes Type: coffee Number of servings: 1 what type of physical activity do you participate in: none rancho/temple: Jew seatbelt use: always ROS ROS Narrative Negative except history Physical Exam Narrative Alert awake oriented x 3 no obvious distress no pallor no icterus no JVD s1s2 no murmurs lungs clear abdomen soft no organomegaly no edema Lab / Micro Data 07/15/25 05:35 07/15/25 05:35 Labs: Laboratory Results - last 24 hr 07/14/25 17:08: POC Glucose 156 H 07/14/25 21:11: POC Glucose 143 H 07/15/25 02:17: POC Glucose 144 H 07/15/25 05:35: WBC 4.3 L, RBC 3.52 L, Hgb 11.3 L, Hct 34.2 L, MCV 97.2, MCH 32.1 H, MCHC 33.0, RDWStd Deviation 48.0 H, RDW Coeff of Swapnil 13.7, Plt Count 184, MPV 9.9, Sodium 128 L, Potassium 4.1, Chloride 96 L, Carbon Dioxide 21.5, Anion Gap 11, BUN 17, Creatinine 0.71, Estim Creat Clear Calc 44.63 L, Est GFR (MDRD) Non-Af 81, BUN/Creatinine Ratio 24.4 H, Glucose 137 H, Calcium 9.0 07/15/25 06:04: POC Glucose 132 H 07/15/25 1440 Cosigner Signature (if applicable): CC: Dr. Fitz Walters MD~ Signed [facility]08-31-2025 Progress note Author Steve [facility] Note Date/Time July 15, 2025 11 :07am [facility] Medical Records Department [address] [place] [address] Progress Note - Hospitalist 07/15/25 0912 MR#: [id number] Acct: [id number] Name: YANN ADAIR Rep #:[id number] : 1935 89 From: Steve Barba [facility] PCP: Dr. Fitz Walters MD Status:A DM IN Location: [place] [id number]- [id number] Reason for Visit Chief Complaint: Fever and Confusion. Subjective Subjective Saw patient at bedside this morning. Patient appeared similar today to yesterday, was mildly fatigued appearing but otherwise sitting back comfortably in bed and in no acute distress. She again was alert to person and place but not time today. She was about to try to eat breakfast when I saw her; noted that she had some abdominal discomfort and dry heaving after eating crackers earlier this morning, but she was feeling hungry and wanted to try to eat breakfast. No other acute concerns this morning. Of note, discussed patient's care over the phone with her daughter late afternoon yesterday. Daughter noted that patient appeared slightly improved yesterday afternoon compared to on admission but was still more confused than her normal. She noted that the patient has had worsening diarrhea over the pastseveral days and decreased p.o. intake due to nausea and vomiting, so she was happy to hear that a GI bug had been isolated to explain this. Daughter did note she was concerned about a stroke for the patient. I noted that patient's CT brain on admit was normal and she has had no focal deficits, so her confusionis much more likely due to her active infection and hyponatremia. Noted that ifshe continues to be confused with improvement in hyponatremia and infectious symptoms, an MRI brain could always be considered for further evaluation. Objective Data Objective Data Vital Signs: Vital Signs Temp Pulse Resp BP Pulse Ox O2 Del Method 98.3 F 67 18 101/63 98 Room Air 07/15/25 02:07/15/25 02:07/15/25 02:25 07/15/25 02:25 07/15/25 02:07/15/25 02:32 Oxygen Delivery Method Room Air Weight: 62.913 kg Body Mass Index (BMI) 22.4 Intake & Output: Intake and Output for Last 24 Hours 07/13/25 07/14/25 07/15/25 23:59 23:59 23:59 Intake Total 1000 / 1000 100 / 100 Balance 1000 / 1000 100 / 100 Lab / Micro Data 07/15/25 05:35 07/15/25 05:35 Labs: Laboratory Results - last 24 hr 07/14/25 04:26: Cortisol AM Sample 13.90 07/14/25 11:05: POC Glucose 175 H 07/14/25 12:04: Sodium 126 L, Potassium 4.0, Chloride 93 L, Carbon Dioxide 18.3 L, Anion Gap 14, BUN 19, Creatinine 0.70, Estim Creat Clear Calc 44.63 L, Est GFR (MDRD) Non-Af 83, BUN/Creatinine Ratio 27.6 H, Glucose 196 H, Calcium 9.2, Magnesium 2.0 07/14/25 17:08: POC Glucose 156 H 07/14/25 21:11: POC Glucose 143 H 07/15/25 02:17: POC Glucose 144 H 07/15/25 05:35: WBC 4.3 L, RBC 3.52 L, Hgb 11.3 L, Hct 34.2 L, MCV 97.2, MCH 32.1 H, MCHC 33.0, RDW Std Deviation 48.0 H, RDW Coeff of Swapnil 13.7, Plt Count 184, MPV 9.9, Sodium 128 L, Potassium 4.1, Chloride 96 L, Carbon Dioxide 21.5, Anion Gap 11, BUN 17, Creatinine 0.71, Estim Creat Clear Calc 44.63 L, Est GFR (MDRD) Non-Af 81, BUN/Creatinine Ratio 24.4 H, Glucose 137 H, Calcium 9.0 07/15/25 06:04: POC Glucose 132 H Micro: Microbiology 07/14/25 06:04 Stool Stool Lactoferrin - Final 07/14/25 06:04 Stool Enteric Bacteriology - Final Campylobacter species 07/14/25 06:04 Stool Clostridioides difficile (PCR) - Final 07/14/25 03:05 Mucosa - Nasopharyngeal Respiratory Panel (PCR) - Final Physical Exam Const alert, no apparent distress and average body habitus Constitutional Narrative: Elderly female, pleasantly confused, alert and oriented to person and place but not time, mildly fatigued appearing but otherwise sitting back comfortably in bed and in no acute distress. Stable. General Appearance: cooperative and comfortable Orientation / Consciousness: confused HEENT normocephalic, head/scalp atraumatic, hearing grossly normal bilaterally, nasal mucous membranes and turbinates normal and moist oral mucous membranes Eyes PERRL, EOMs intact bilaterally and conjunctivae normal Neck full ROM Chest inspection of chest normal Resp normal respiratory effort, normal air movement, no use of accessory muscles and clear to auscultation bilaterally Cardio regular rate, regular rhythm, no murmurs and peripheral pulses 2+ throughout GI normal to inspection, nondistended, normoactive bowel sounds, soft to palpation,non-tender and non-distended Back/Spine normal ROM Extremity normal to inspection, full ROM and no pedal edema Skin no rashes or lesions noted Assessment & Plan Assessment/Plan (1) Campylobacter gastroenteritis: (2) Hyponatremia: PLAN: Plan Patient is an 89-year-old female who presented to [facility] ED on 07/13/2025 with low-grade fever and confusion. 1. Acute gastroenteritis due to Campylobacter infection ? Presented with nausea/vomiting/diarrhea and low-grade fever. Stool PCR positive for Campylobacter. CT abdomen pelvis showed diffuse thickening of the stomach suggestive of gastritis, and fluid-filled colon probably secondary to diarrhea/enterocolitis. No bloody stools noted. Hemoglobin stable at baseline around 11. Patient with no evidence of severe disease (blood stools, high fever, extraintestinal infectious symptoms), but given her age, treating with IVazithromycin and planning for 7- day course of antibiotics total. Given IV fluidresuscitation on admit but given concern for SIADH as below, holding on further IV fluids for now. Okay for regular diet as tolerated. 2. Acute metabolic encephalopathy in setting of mild cognitive impairment ? CT brain on admit unremarkable. Patient alert and oriented to person and place but not time since admission. She is pleasantly confused with conversation. Per family, she is more confused than her baseline at this point but suspect she may not be too far from baseline. May have some degree of confusion due to active infection and hyponatremia. Daughter noted concern for stroke but given no focal neurologic issues, have low concern for stroke at thistime. 3. Hyponatremia with concern for SIADH ? Nephrology consulted. Sodium 128 on admit. Given 1 L of IV normal saline on admit, with repeat sodium 127 on 07/14. Urine sodium high at 131 and urine osmolality high as well. TSH and a.m. cortisol normal. Highest concern is for some degree of SIADH. Sodium decreased to 126 on afternoon of 07/14. Held on further IV fluids and started 1500 mL fluid restriction. Most recent sodium 128on 07/15. Appreciate nephrology recommendations. 4. Hematuria ? Patient noted to have hematuria in the ED. UA showed 150 occult blood and 50- 100 RBCs. Importantly, hemoglobin stable at baseline, platelet count normal andno HALLIE noted so no concern for hemolytic uremic syndrome due Campylobacter infection at this time. Monitor. 5. Hypomagnesemia ? Magnesium 1.1 on admit. Presume secondary to GI losses. Repleted on admission. Chronic medical conditions: ? Hypertension/hyperlipidemia: Continue home aspirin, statin, losartan. ? Mild chronic iron deficiency anemia: Hemoglobin stable baseline around 11. Continue home iron supplement. ? Overactive bladder: Continue home mirabegron. ? Type 2 diabetes mellitus: A1c 5.7% on admit. Treating with sliding scale insulin with meals while inpatient. Hold home metformin. ? Glaucoma: Continue home eyedrops. ? RA: Stable, not in acute exacerbation. Holding methotrexate for now in setting of active infection; can likely resume on discharge. Total clinical time spent by myself addressing the patient's medical issues, reviewing all the data, and collaborating with patient's care team: 35 minutes. Charges/Coding Visit Charges Inpatient E&M: 95011 Subs Hosp L2 07/15/25 1107 <Electronically signed by Steve Alvarez DO> Cosigner Signature (if applicable): CC: ~ Signed [facility] Work Phone: 1(649) 429-630408-31-2025 Progress note [facility] Medical Records Department [address] [place] [address] Progress Note - Hospitalist 07/15/25911 MR#: [id number] Acct: [id number] Name: YANN ADAIR Rep #:[id number] : 1935 89 From: Steve williamson DO PCP: Dr. Fitz Walters MD Status:A DM IN Location: [place] [address] Reason for Visit Chief Complaint: Fever and Confusion. Subjective Subjective Saw patient at bedside this morning. Patient appeared similar today to yesterday, was mildly fatigued appearing but otherwise sitting back comfortably in bed and in no acute distress. She again was alert to person and place but not time today. She was about to try to eat breakfast when I saw her; noted that she had some abdominal discomfort and dry heaving after eating crackers earlier this morning, but she was feeling hungry and wanted to try to eat breakfast. No other acute concerns this morning. Of note, discussed patient's care over the phone with her daughter late afternoon yesterday. Daughter noted that patient appeared slightly improved yesterday afternoon compared to on admission but was still more confused than her normal. She noted that the patient has had worsening diarrhea over the pastseveral days and decreased p.o. intake due to nausea and vomiting, so she was happy to hear that a GI bug had been isolated to explain this. Daughter did note she was concerned about a stroke for the patient. I noted that patient's CT brain on admit was normal and she has had no focal deficits, so her confusionis much more likely due to her active infection and hyponatremia. Noted that eric continues to be confused with improvement in hyponatremia and infectious symptoms, an MRI brain could always be considered for further evaluation. Objective Data Objective Data Vital Signs: Vital Signs Temp Pulse Resp BP Pulse Ox O2 Del Method 98.3 F 67 18 101/63 98 Room Air 07/15/25 02:07/15/25 02:07/15/25 02:07/15/25 02:07/15/25 02:07/15/25 02:32 Oxygen Delivery Method Room Air Weight: 62.913 kg Body Mass Index (BMI) 22.4 Intake & Output: Intake and Output for Last 24 Hours 07/13/25 07/14/25 07/15/25 23:59 23:59 23:59 Intake Total 1000 / 1000 100 / 100 Balance 1000 / 1000 100 / 100 Lab / Micro Data 07/15/25 05:35 07/15/25 05:35 Labs: Laboratory Results - last 24 hr 07/14/25 04:26: Cortisol AM Sample 13.90 07/14/25 11:05: POC Glucose 175 H 07/14/25 12:04: Sodium 126 L, Potassium 4.0, Chloride 93 L, Carbon Dioxide 18.3 L, Anion Gap 14, BUN 19, Creatinine 0.70, Estim Creat Clear Calc 44.63 L, Est GFR (MDRD) Non-Af 83, BUN/Creatinine Ratio 27.6 H, Glucose 196 H, Calcium 9.2, Magnesium 2.0 07/14/25 17:08: POC Glucose 156 H 07/14/25 21:11: POC Glucose 143 H 07/15/25 02:17: POC Glucose 144 H 07/15/25 05:35: WBC 4.3 L, RBC 3.52 L, Hgb 11.3 L, Hct 34.2 L, MCV 97.2, MCH 32.1 H, MCHC 33.0, RDWStd Deviation 48.0 H, RDW Coeff of Swapnil 13.7, Plt Count 184, MPV 9.9, Sodium 128 L, Potassium 4.1, Chloride 96 L, Carbon Dioxide 21.5, Anion Gap 11, BUN 17, Creatinine 0.71, Estim Creat Clear Calc 44.63 L, Est GFR (MDRD) Non-Af 81, BUN/Creatinine Ratio 24.4 H, Glucose 137 H, Calcium 9.0 07/15/25 06:04: POC Glucose 132 H Micro: Microbiology 07/14/25 06:04 Stool Stool Lactoferrin - Final 07/14/25 06:04 Stool Enteric Bacteriology - Final Campylobacter species 07/14/25 06:04 Stool Clostridioides difficile (PCR) - Final 07/14/25 03:05 Mucosa - Nasopharyngeal Respiratory Panel (PCR) - Final Physical Exam Const alert, no apparent distress and average body habitus Constitutional Narrative: Elderly female, pleasantly confused, alert and oriented to person and place but not time, mildly fatigued appearing but otherwise sitting back comfortably in bed and in no acute distress. Stable. General Appearance: cooperative and comfortable Orientation / Consciousness: confused HEENT normocephalic, head/scalp atraumatic, hearing grossly normal bilaterally, nasal mucous membranes and turbinates normal and moist oral mucous membranes Eyes PERRL, EOMs intact bilaterally and conjunctivae normal Neck full ROM Chest inspection of chest normal Resp normal respiratory effort, normal air movement, no use of accessory muscles and clear to auscultation bilaterally Cardio regular rate, regular rhythm, no murmurs and peripheral pulses 2+ throughout GI normal to inspection, nondistended, normoactive bowel sounds, soft to palpation,non-tender and non-distended Back/Spine normal ROM Extremity normal to inspection, full ROM and no pedal edema Skin no rashes or lesions noted Assessment & Plan Assessment/Plan (1) Campylobacter gastroenteritis: (2) Hyponatremia: PLAN: Plan Patient is an 89-year-old female who presented to [facility] ED on 07/13/2025 with low-grade fever and confusion. 1. Acute gastroenteritis due to Campylobacter infection ? Presented with nausea/vomiting/diarrhea and low-grade fever. Stool PCR positive for Campylobacter. CT abdomen pelvis showed diffuse thickening of the stomach suggestive of gastritis, and fluid-filled colon probably secondary to diarrhea/enterocolitis. No bloody stools noted. Hemoglobin stable at baseline around 11. Patient with no evidence of severe disease (blood stools, high fever, extraintestinal infectious symptoms), but given her age, treating with IVazithromycin and planning for 7-day course of antibiotics total. Given IV fluidresuscitation on admit but given concern for SIADH as below, holding on further IV fluids for now. Okay for regular diet as tolerated. 2. Acute metabolic encephalopathy in setting of mild cognitive impairment ? CT brain on admit unremarkable. Patient alert and oriented to person and place but not time sinceadmission. She is pleasantly confused with conversation. Per family, she is more confused than her baseline at this point but suspect she may not be too far from baseline. May have some degree of confusion due to active infection and hyponatremia. Daughter noted concern for stroke but given no focal neurologic issues, have low concern for stroke at thistime. 3. Hyponatremia with concern for SIADH ? Nephrology consulted. Sodium 128 on admit. Given 1 L of IV normal saline on admit, with repeat sodium 127 on 07/14. Urine sodium high at 131 and urine osmolality high as well. TSH and a.m. cortisol normal. Highest concern is for some degree of SIADH. Sodium decreased to 126 on afternoon of 07/14. Held on further IV fluids and started 1500 mL fluid restriction. Most recent sodium 128on 07/15. Appreciate nephrology recommendations. 4. Hematuria ? Patient noted to have hematuria in the ED. UA showed 150 occult blood and 50- 100 RBCs. Importantly, hemoglobin stable at baseline, platelet count normal andno HALLIE noted so no concern for hemolytic uremic syndrome due Campylobacter infection at this time. Monitor. 5. Hypomagnesemia ? Magnesium 1.1 on admit. Presume secondary to GI losses. Repleted on admission. Chronic medical conditions: ? Hypertension/hyperlipidemia: Continue home aspirin, statin, losartan. ? Mild chronic iron deficiency anemia: Hemoglobin stable baseline around 11. Continue home iron supplement. ? Overactive bladder: Continue home mirabegron. ? Type 2 diabetes mellitus: A1c 5.7% on admit. Treating with sliding scale insulin with meals whileinpatient. Hold home metformin. ? Glaucoma: Continue home eyedrops. ? RA: Stable, not in acute exacerbation. Holding methotrexate for now in setting of active infection; can likely resume on discharge. Total clinical time spent by myself addressing the patient's medical issues, reviewing all the data, and collaborating with patient's care team: 35 minutes. Charges/Coding Visit Charges Inpatient E&M: 33897 Subs Hosp L2 07/15/25 1105 Cosigner Signature (if applicable): CC: ~ Signed [facility]08-30-2025 Progress note Author Steve Alvarez [facility] Note Date/Time July 14, 2025 1: 27pm [facility] Medical Records Department [address] [place] [address] Progress Note - Hospitalist 07/14/25919 MR#: [id number] Acct: [id number] Name: YANN ADAIR Rep #:[id number] : 1935 89 From: Steve williamson DO PCP: Dr. Fitz Walters MD Status:A DM IN Location: [place] [address] Reason for Visit Chief Complaint: Fever and Confusion. Subjective Subjective Saw patient at bedside this morning. Patient was fatigued appearing but was otherwise sitting back comfortably in bed. She knew her name and that she was at [facility], but she did not know the month or year. She denied any acute pain or discomfort currently. She denied having any bowel movement this morning. No other acute concerns currently. Objective Data Objective Data Vital Signs: Vital Signs Temp Pulse Resp BP Pulse Ox O2 Del Method 99.0 F 79 16 125/81 H 96 Room Air 07/14/25 06:30 07/14/25 06:30 07/14/25 06:30 07/14/25 06:30 07/14/25 06:30 07/14/25 06:30 Oxygen Delivery Method Room Air Weight: 63.9 kg Body Mass Index (BMI) 22.7 Intake & Output: Intake and Output for Last 24 Hours 07/12/25 07/13/25 07/14/25 23:59 23:59 23:59 Intake Total 1000 / 1000 420 / 420 Balance 1000 / 1000 420 / 420 Lab / Micro Data 07/14/25 04:26 07/14/25 04:26 Labs: Laboratory Results - last 24 hr 07/13/25 20:10: WBC 5.9, RBC 3.68 L, Hgb 11.6 L, Hct 35.5 L, MCV 96.5, MCH 31.5,MCHC 32.7, RDW Std Deviation 47.1 H, RDW Coeff of Swapnil 13.3, Plt Count 222, MPV 9.8, Immature Gran % (Auto) 0.700, Neut % (Auto) 85.6 H, Lymph % (Auto) 6.9 L, Wells % (Auto) 6.6, Eos % (Auto) 0.0, Baso % (Auto) 0.2, Absolute Neuts (auto) 5.1, Absolute Lymphs (auto) 0.41 L, Nucleated RBC % 0, PT 13.6, INR 1.0, APTT 34.2, Sodium 128 L, Potassium 4.2, Chloride 96 L, Carbon Dioxide 21.5, Anion Gap11, BUN 21 H, Creatinine 0.76, Estim Creat Clear Calc 42.90 L, Est GFR (MDRD) Non-Af 75, BUN/Creatinine Ratio 27.8 H, Glucose 175 H, Lactic Acid 2.0, Calcium 9.4, Troponin T High Sens 22 H 07/13/25 21:21: Urine Color Yellow, Urine Clarity Clear, Urine pH 5.0, Ur Specific [place] 1.020, Urine Protein 30 H, Urine Glucose (UA) Normal, Urine Ketones 5 H, Urine Occult Blood 150 H, Urine Nitrite Negative, Urine Bilirubin Negative, Urine Urobilinogen Normal, Ur Leukocyte Esterase Negative, Urine RBC 50-100 SEEN, Urine WBC 0-5 SEEN, Ur Squamous Epith Cells 0 SEEN, Urine Bacteria 1+, Hyaline Casts 0-5 SEEN, Urine Mucus 2+, Urine Osmolality 765, Ur Random Sodium 131, Urine Opiates Screen NEGATIVE, U Buprenorphine Qual NEGATIVE, Ur Oxycodone Screen NEGATIVE, Urine Methadone Screen NEGATIVE, Urine Fentanyl Screen NEGATIVE, Ur Barbiturates Screen NEGATIVE, Ur Phencyclidine Scrn NEGATIVE, Ur Amphetamines Screen NEGATIVE, U Benzodiazepines Scrn NEGATIVE, Urine Cocaine Screen NEGATIVE, U Cannabinoids Screen NEGATIVE 07/13/25 22:10: Troponin T Hi Sens 2 Hr 11 07/14/25 00:30: Lactic Acid 1.4, Magnesium 1.1 L, Troponin T Hi Sens 4Hr 13 07/14/25 01:34: Serum Osmolality 275 L, Vitamin B12 588, Serum Folate 16.20, TSH2.210, Ethyl Alcohol < 10.1 07/14/25 04:26: WBC 5.0, RBC 3.39 L, Hgb 10.8 L, Hct 32.9 L, MCV 97.1, MCH 31.9,MCHC 32.8, RDW Std Deviation 47.0 H, RDW Coeff of Swapnil 13.3, Plt Count 198, MPV 9.6, Immature Gran % (Auto) 0.600, Neut % (Auto) 78.4 H, Lymph % (Auto) 11.3 L, Wells % (Auto) 9.5, Eos % (Auto) 0.0, Baso % (Auto) 0.2, Absolute Neuts (auto) 3.9, Absolute Lymphs (auto) 0.56 L, Nucleated RBC % 0, Differential Comment SCANNED, Sodium 127 L, Potassium 3.7, Chloride 95 L, Carbon Dioxide 18.1 L, Anion Gap 14, BUN 20 H, Creatinine 0.69 L, Estim Creat Clear Calc 44.63 L, Est GFR (MDRD) Non-Af 83, BUN/Creatinine Ratio 28.1 H, Glucose 178 H, Hemoglobin A1c5.7, Calcium 8.8, Phosphorus 2.3 L, Total Bilirubin 0.27, AST 20, ALT 11, Alkaline Phosphatase 61, Total Protein 6.0, Albumin 3.4, Globulin 2.6, Albumin/Globulin Ratio 1.3, Triglycerides 66, Cholesterol 100, LDL Cholesterol, Calc 46, VLDL Cholesterol 13, HDL Cholesterol 41, Cholesterol/HDL Ratio 2.44 07/14/25 05:54: POC Glucose 161 H Micro: Microbiology 07/14/25 03:05 Mucosa - Nasopharyngeal Respiratory Panel (PCR) - Final 07/14/25 06:04 Stool Stool Lactoferrin - Final 07/14/25 06:04 Stool Clostridioides difficile (PCR) - Final Radiography Diagnostic Testing: Radiology Impression Brain CT 07/13/25 20:05 IMPRESSION: No acute intracranial abnormality. Reading Location: [facility] Chest X-Ray 07/13/25 20:35 IMPRESSION: No acute cardiopulmonary disease. Reading Location: [facility] Abdomen/Pelvis CT 07/14/25 00:00 IMPRESSION: Small sliding hiatal hernia. Diffuse thickening of the stomach suggestive of gastritis. Fluid-filled colon, probably secondary to diarrhea/enterocolitis. Scattered right renal simple cysts with the largest measuring 1.7 cm. Mild calcified atheromatous plaques of the aorta. Mild multifocal thickening of the small bowel suggestive of enteritis. No evidence of perforation or pneumatosis intestinalis. Cholelithiasis without acute cholecystitis. Osteopenia. Moderate diffuse spondylosis. Grade 1 anterolisthesis of L4 on L5. Reading Location: [place] [address] Physical Exam Const alert, no apparent distress and average body habitus Constitutional Narrative: Elderly female, pleasantly confused, alert and oriented to person and place but not time, mildly fatigued appearing but otherwise sitting back comfortably in bed and in no acute distress. General Appearance: cooperative and comfortable Orientation / Consciousness: confused HEENT normocephalic, head/scalp atraumatic, hearing grossly normal bilaterally, nasal mucous membranes and turbinates normal and moist oral mucous membranes Eyes PERRL, EOMs intact bilaterally and conjunctivae normal Neck full ROM Chest inspection of chest normal Resp normal respiratory effort, normal air movement, no use of accessory muscles and clear to auscultation bilaterally Cardio regular rate, regular rhythm, no murmurs and peripheral pulses 2+ throughout GI normal to inspection, nondistended, normoactive bowel sounds, soft to palpation,non-tender and non-distended Back/Spine normal ROM Extremity normal to inspection, full ROM and no pedal edema Skin no rashes or lesions noted Assessment & Plan Assessment/Plan (1) Campylobacter gastroenteritis: (2) Hyponatremia: PLAN: Plan Patient is an 89-year-old female who presented to [facility] ED on 07/13/2025 with low-grade fever and confusion. 1. Acute gastroenteritis due to Campylobacter infection ? Presented with nausea/vomiting/diarrhea and low-grade fever. Stool PCR positive for Campylobacter. CT abdomen pelvis showed diffuse thickening of the stomach suggestive of gastritis, and fluid-filled colon probably secondary to diarrhea/enterocolitis. No bloody stools noted. Hemoglobin stable at baseline around 11. Patient with no evidence of severe disease (blood stools, high fever, extraintestinal infectious symptoms), but given her age will treat with IV azithromycin and plan for 7-day course of antibiotics total. Given IV fluid resuscitation on admit but given concern for SIADH as below, holding on further IV fluids for now. Okay for regular diet as tolerated. 2. Acute metabolic encephalopathy in setting of mild cognitive impairment ? Patient alert and oriented to person and place but not time since admission. She is pleasantly confused with conversation. Per family, she is more confused than her baseline at this point but suspect she may not be too far from baseline. May have some degree of confusion due to active infection as above. Continue to monitor and avoid sedating medications as able. 3. Hyponatremia with concern for SIADH ? Nephrology consulted. Sodium 128 on admit. Given 1 L of IV normal saline on admit, with repeat sodium 127 on 07/14. Urine sodium high at 131 and urine osmolality high as well. TSH and a.m. cortisol normal. Highest concern is for some degree of SIADH. Will hold on further IV fluids at this time and start 1500 mL fluid restriction. Repeat BMP ordered for this afternoon. Appreciate nephrology recommendations. 4. Hematuria ? Patient noted to have hematuria in the ED. UA showed 150 occult blood and 50- 100 RBCs. Importantly, hemoglobin stable at baseline, platelet count normal andno HALLIE noted so no concern for hemolytic uremic syndrome due Campylobacter infection at this time. Monitor. 5. Hypomagnesemia ? Magnesium 1.1 on admit. Presume secondary to GI losses. Repleted on admission. Chronic medical conditions: ? Hypertension/hyperlipidemia: Continue home aspirin, statin, losartan. ? Mild chronic iron deficiency anemia: Hemoglobin stable baseline around 11. Continue home iron supplement. ? Overactive bladder: Continue home mirabegron. ? Type 2 diabetes mellitus: A1c 5.7% on admit. Treating with sliding scale insulin with meals while inpatient. Hold home metformin. ? Glaucoma: Continue home eyedrops. ? RA: Stable, not in acute exacerbation. Holding methotrexate for now in setting of active infection; can likely resume on discharge. Total clinical time spent by myself addressing the patient's medical issues, reviewing all the data, and collaborating with patient's care team: 35 minutes. Charges/Coding Visit Charges Inpatient E&M: 68015 Subs Hosp L2 07/14/25 1327 <Electronically signed by Steve Alvarez DO> Cosigner Signature (if applicable): CC: ~ Signed [facility] Work Phone: [phone] 397-646508-30-[address] [facility] Medical Records Department [address] [place] [address] Progress Note - Hospitalist 07/14/25 0920 MR#: [id number] Acct: [id number] Name: YANN ADAIR Rep #:[id number] : 1935 89 From: Steve williamson DO PCP: Dr. Fitz Walters MD Status:A DM IN Location: [place] [id number] Reason for Visit Chief Complaint: Fever and Confusion. Subjective Subjective Saw patient at bedside this morning. Patient was fatigued appearing but was otherwise sitting back comfortably in bed. She knew her name and that she was at [facility], but she did not know the month or year. She denied any acute pain or discomfort currently. She denied having any bowel movement this morning. No other acute concerns currently. Objective Data Objective Data Vital Signs: Vital Signs Temp Pulse Resp BP Pulse Ox O2 Del Method 99.0 F 79 16 125/81 H 96 Room Air 07/14/25 06:30 07/14/25 06:30 07/14/25 06:30 07/14/25 06:30 07/14/25 06:30 07/14/25 06:30 Oxygen Delivery Method Room Air Weight: 63.9 kg Body Mass Index (BMI) 22.7 Intake & Output: Intake and Output for Last 24 Hours 07/12/25 07/13/25 07/14/25 23:59 23:59 23:59 Intake Total 1000 / 1000 420 / 420 Balance 1000 / 1000 420 / 420 Lab / Micro Data 07/14/25 04:26 07/14/25 04:26 Labs: Laboratory Results - last 24 hr 07/13/25 20:10: WBC 5.9, RBC 3.68 L, Hgb 11.6 L, Hct 35.5 L, MCV 96.5, MCH 31.5,MCHC 32.7, RDW Std Deviation 47.1 H, RDW Coeff of Swapnil 13.3, Plt Count 222, MPV 9.8, Immature Gran % (Auto) 0.700, Neut % (Auto) 85.6 H, Lymph % (Auto) 6.9 L, Wells % (Auto) 6.6, Eos % (Auto) 0.0, Baso % (Auto) 0.2, Absolute Neuts (auto) 5.1, Absolute Lymphs (auto) 0.41 L, Nucleated RBC % 0, PT 13.6, INR 1.0, APTT 34.2,Sodium 128 L, Potassium 4.2, Chloride 96 L, Carbon Dioxide 21.5, Anion Gap11, BUN 21 H, Creatinine 0.76, Estim Creat Clear Calc 42.90 L, Est GFR (MDRD) Non-Af 75, BUN/Creatinine Ratio 27.8 H, Nypwspf993 H, Lactic Acid 2.0, Calcium 9.4, Troponin T High Sens 22 H 07/13/25 21:21: Urine Color Yellow, Urine Clarity Clear, Urine pH 5.0, Ur Specific [place] 1.020, Urine Protein 30 H, Urine Glucose (UA) Normal, Urine Ketones 5 H, Urine Occult Blood 150 H, Urine Nitrite Negative, Urine Bilirubin Negative, Urine Urobilinogen Normal, Ur Leukocyte Esterase Negative, Urine RBC 50-100 SEEN, Urine WBC 0-5 SEEN, Ur Squamous Epith Cells 0 SEEN, Urine Bacteria 1+, Hyaline Casts 0-5 SEEN, Urine Mucus 2+, Urine Osmolality 765, Ur Random Sodium 131, Urine Opiates Screen NEGATIVE, U Buprenorphine Qual NEGATIVE, Ur Oxycodone Screen NEGATIVE, Urine Methadone Screen NEGATIVE, Urine Fentanyl Screen NEGATIVE, Ur Barbiturates Screen NEGATIVE, Ur Phencyclidine Scrn NEGATIVE, Ur Amphetamines Screen NEGATIVE, U Benzodiazepines Scrn NEGATIVE, Urine Cocaine Screen NEGATIVE, U Cannabinoids Screen NEGATIVE 07/13/25 22:10: Troponin T Hi Sens 2 Hr 11 07/14/25 00:30: Lactic Acid 1.4, Magnesium 1.1 L, Troponin T Hi Sens 4Hr 13 07/14/25 01:34: Serum Osmolality 275 L, Vitamin B12 588, Serum Folate 16.20, TSH2.210, Ethyl Alcohol < 10.1 07/14/25 04:26: WBC 5.0, RBC 3.39 L, Hgb 10.8 L, Hct 32.9 L, MCV 97.1, MCH 31.9,MCHC 32.8, RDW Std Deviation 47.0 H, RDW Coeff of Swapnil 13.3, Plt Count 198, MPV 9.6, Immature Gran % (Auto) 0.600, Neut % (Auto) 78.4 H, Lymph % (Auto) 11.3 L, Wells % (Auto) 9.5, Eos % (Auto) 0.0, Baso % (Auto) 0.2, Absolute Neuts (auto) 3.9, Absolute Lymphs (auto) 0.56 L, Nucleated RBC % 0, Differential Comment SCANNED, Sodium 127 L, Potassium 3.7, Chloride 95 L, Carbon Dioxide 18.1 L, Anion Gap 14, BUN 20 H, Creatinine 0.69 L, Estim Creat Clear Calc 44.63 L, Est GFR (MDRD) Non-Af 83, BUN/Creatinine Ratio 28.1 H, Glucose 178 H, Hemoglobin A1c5.7, Calcium 8.8, Phosphorus 2.3 L, Total Bilirubin 0.27, AST 20, ALT 11, Alkaline Phosphatase 61, Total Protein 6.0, Albumin 3.4, Globulin 2.6, Albumin/Globulin Ratio 1.3, Triglycerides 66, Cholesterol 100, LDL Cholesterol, Calc 46, VLDL Cholesterol 13, HDL Cholesterol 41, Cholesterol/HDL Ratio 2.44 07/14/25 05:54: POC Glucose 161 H Micro: Microbiology 07/14/25 03:05 Mucosa - Nasopharyngeal Respiratory Panel (PCR) - Final 07/14/25 06:04 Stool Stool Lactoferrin - Final 07/14/25 06:04 Stool Clostridioides difficile (PCR) - Final Radiography Diagnostic Testing: Radiology Impression Brain CT 07/13/25 20:05 IMPRESSION: No acute intracranial abnormality. Reading Location: [facility] Chest X-Ray 07/13/25 20:35 IMPRESSION: No acute cardiopulmonary disease. Reading Location: [facility] Abdomen/Pelvis CT 07/14/25 00:00 IMPRESSION: Small sliding hiatal hernia. Diffuse thickening of the stomach suggestive of gastritis. Fluid-filled colon, probably secondary to diarrhea/enterocolitis. Scattered right renal simple cysts with the largest measuring 1.7 cm. Mild calcified atheromatous plaques of the aorta. Mild multifocal thickening of the small bowel suggestive of enteritis. No evidence of perforation or pneumatosis intestinalis. Cholelithiasis without acute cholecystitis. Osteopenia. Moderate diffuse spondylosis. Grade 1 anterolisthesis of L4 on L5. Reading Location: [place] [address] Physical Exam Const alert, no apparent distress and average body habitus Constitutional Narrative: Elderly female, pleasantly confused, alert and oriented to person and place but not time, mildly fatigued appearing but otherwise sitting back comfortably in bed and in no acute distress. General Appearance: cooperative and comfortable Orientation / Consciousness: confused HEENT normocephalic, head/scalp atraumatic, hearing grossly normal bilaterally, nasal mucous membranes and turbinates normal and moist oral mucous membranes Eyes PERRL, EOMs intact bilaterally and conjunctivae normal Neck full ROM Chest inspection of chest normal Resp normal respiratory effort, normal air movement, no use of accessory muscles and clear to auscultation bilaterally Cardio regular rate, regular rhythm, no murmurs and peripheral pulses 2+ throughout GI normal to inspection, nondistended, normoactive bowel sounds, soft to palpation,non-tender and non-distended Back/Spine normal ROM Extremity normal to inspection, full ROM and no pedal edema Skin no rashes or lesions noted Assessment & Plan Assessment/Plan (1) Campylobacter gastroenteritis: (2) Hyponatremia: PLAN: Plan Patient is an 89-year-old female who presented to [facility] ED on 07/13/2025 with low-grade fever and confusion. 1. Acute gastroenteritis due to Campylobacter infection ? Presented with nausea/vomiting/diarrhea and low-grade fever. Stool PCR positive for Campylobacter. CT abdomen pelvis showed diffuse thickening of the stomach suggestive of gastritis, and fluid-filled colon probably secondary to diarrhea/enterocolitis. No bloody stools noted. Hemoglobin stable at baseline around 11. Patient with no evidence of severe disease (blood stools, high fever, extraintestinal infectious symptoms), but given her age will treat with IV azithromycin and plan for 7-day course of antibiotics total. Given IV fluid resuscitation on admit but given concern for SIADH as below, holding on further IV fluids for now. Okay for regular diet as tolerated. 2. Acute metabolic encephalopathy in setting of mild cognitive impairment ? Patient alert and oriented to person and place but not time since admission. She is pleasantly confused with conversation. Per family, she is more confused than her baseline at this point but suspect she may not be too far from baseline. May have some degree of confusion due to active infection as above. Continue to monitor and avoid sedating medications as able. 3. Hyponatremia with concern for SIADH ? Nephrology consulted. Sodium 128 on admit. Given 1 L of IV normal saline on admit, with repeat sodium 127 on 07/14. Urine sodium high at 131 and urine osmolality high as well. TSH and a.m. cortisol normal. Highest concern is for some degree of SIADH. Will hold on further IV fluids at this time andstart 1500 mL fluid restriction. Repeat BMP ordered for this afternoon. Appreciate nephrology recommendations. 4. Hematuria ? Patient noted to have hematuria in the ED. UA showed 150 occult blood and 50- 100 RBCs. Importantly, hemoglobin stable at baseline, platelet count normal andno HALLIE noted so no concern for hemolytic uremic syndrome due Campylobacter infection at this time. Monitor. 5. Hypomagnesemia ? Magnesium 1.1 on admit. Presume secondary to GI losses. Repleted on admission. Chronic medical conditions: ? Hypertension/hyperlipidemia: Continue home aspirin, statin, losartan. ? Mild chronic iron deficiency anemia: Hemoglobin stable baseline around 11. Continue home iron supplement. ? Overactive bladder: Continue home mirabegron. ? Type 2 diabetes mellitus: A1c 5.7% on admit. Treating with sliding scale insulin with meals whileinpatient. Hold home metformin. ? Glaucoma: Continue home eyedrops. ? RA: Stable, not in acute exacerbation. Holding methotrexate for now in setting of active infection; can likely resume on discharge. Total clinical time spent by myself addressing the patient's medical issues, reviewing all the data, and collaborating with patient's care team: 35 minutes. Charges/Coding Visit Charges Inpatient E&M: 99601 Subs Hosp L2 07/14/25 1327 Cosigner Signature (if applicable): CC: ~ Signed [facility]08-30-2025 History and physical note Author Candido Huffman [facility] Note Date/Time July 14, 2025 5: 27am [facility] Medical Records Department [address] [place] [address] H&P Exam - Hospitalist 07/13/25 8428 MR#: [id number] Acct: [id number] Name: HIEU ADAIRN Martha Rep #:[id number] : 1935 89 From: Candido Gannon DO PCP: Dr. Fitz Walters MD Status:A DM IN Location: [facility] [id number] HPI - General General Date of Admission: 07/14/25 Date of Service: 07/13/25 Chief Complaint: Fever and Confusion. HPI Narrative YANN ADAIR, is a 89 F with a past medical history of essential hypertension; on losartan, hyperlipidemia; on atorvastatin, history of hypertriglyceridemia, former tobacco abuse, DM-2; of unknown control on metformin twice daily, diabetic neuropathy, chronic mild cognitive impairment, RA; on methotrexate weekly, LUIS E; on ferrous sulfate, glaucoma; on dorzolamide-timolol ophthalmic drops twice daily plus rocklatan eyedrops at bedtime, OAB; s/p bladder repair surgery on mirabegron, IBS, migraine headaches, history of cellulitis, OA and history of recent admission here from May 10, 2025 to May 12, 2025 for treatment of fatigue, nausea and vomiting following a cat bite with Right calf cellulitis mild hyponatremia of 129 who presents to [facility] ER complaining of fever and confusion. Ms. Adair is not a fully reliable historian at this time but she reports her symptoms began earlier today with the abrupt-onset of confusion and shortness ofbreath with subsequent fall due to generalized weakness. The patient's family members informed the ER physician that she has become progressively more confused throughout the day and fell a few hours prior to arrival. The patient admits to shortness of breath and nonproductive cough in addition to nausea and vomiting of bilious emesis after her fall. Her family informed the ER physicianthat she was only dry heaving. Family did not notice any focal neurologic weakness. In the ER she was noted to have a CT of the abdomen and pelvis this admission revealed fluid-filled colon probably secondary to Diarrhea/Enterocolitis with mild multifocal thickening of small bowel suggestiveof Enteritis and diffuse thickening of the stomach suggestive of Gastritis with Low-grade Fever of 99.9 ?F present on admission in addition to laboratory evidence of mild Hyponatremia of 128 mmol/L plus Dehydration; with BUN/creatinine ratio of 28.1 present on admission with corresponding CXR that revealed no acute cardiopulmonary disease and head CT without contrast that revealed no acute intracranial abnormality with UA that revealed evidence of colonization and mild hematuria but no acute infection complicated by clinical evidence of Acute Metabolic Encephalopathy in the setting of previously known Chronic Mild Cognitive Impairment she was admitted to the PCU for ongoing care for status is expected to extend beyond 2 midnights. [facility] Medical History Acute hyponatremia Cellulitis Cat bite of right lower leg with infection Rheumatoid arthritis Former tobacco use HTN (hypertension) HLD (hyperlipidemia) Irritable bowel syndrome (IBS) Hives High triglycerides Migraines Glaucoma Diabetes mellitus Cataracts, bilateral Arthritis Home Medications ?Medication ?Instructions ?Recorded ?Last Taken ?Type aspirin 81 mg tablet,delayed 81 mg PO DAILY 06/01/22 0 05/10/25 History release (Adult Low Dose Aspirin) atorvastatin 10 mg tablet 10 mg PO DAILY 06/01/2204/16 History metformin 500 mg tablet 500 mg PO BID 06/01/2205/10 History ferrous sulfate 27 mg iron tablet 65 mg PO DAILY 10/2905/10/25 History folic acid 1 mg tablet 2 mg PO DAILY 10/29/2205/10 History losartan 25 mg tablet 25 mg PO DAILY 10/29/2204/16 History methotrexate sodium 2.5 mg tablet 15 mg PO QWEEK 10/2905/09/25 History mirabegron 25 mg tablet,extended 25 mg PO QHS #30 tabs 04/17/25 05/09/25 Rx release 24 hr (Myrbetriq) dorzolamide 22.3 mg-timolol 6.8 1 drp ophthalmic (eye) BID 05/10/25 05/10/25 History mg/mL eye drops netarsudil 0.02 %-latanoprost 1 drp ophthalmic (eye) Q HS 05/10/25 05/09/25 History 0.005 % eye drops (Rocklatan) cyanocobalamin (vitamin B-12) 1,000 mcg PO DAILY #30 t abs 07/09/25 Unknown Rx 1,000 mcg tablet Allergy/AdvReac Type Severity Reaction Status Date / Time Sulfa (Sulfonamide AdvReac Intermediate Hives Verified 07/13/25 20:07 Antibiotics) Family History Father Gallstones BPH (benign prostatic hyperplasia) Mother Alzheimer dementia Surgical History History of bilateral tubal ligation History of bladder repair surgery Social History household members: family Smoking Status: Former smoker how long ago did patient quit smoking: Smoked 40 years, started 19 until quit, ~ 1 ppd. alcohol intake: never substance use type: does not use caffeine: Yes Type: coffee Number of servings: 1 what type of physical activity do you participate in: none rancho/temple: Jew seatbelt use: always ROS ROS Narrative Review of Systems: Constitutional: Patient noted to have low-grade fever in ER as noted in HPI. She denies chills. Eyes: Patient denies change in vision or discharge from eyes. ENT: Patient denies runny nose, sore throat or ear pain. Resp: Patient admits to shortness of breath and nonproductive cough as per HPI. CV: Patient denies chest pain, palpitations, heart racing or lower extremity edema. GI: Patient admits to nausea and vomiting with bilious emesis but she denies diarrhea or constipation. : Patient denies dysuria or hematuria. MSK: Patient admits to generalized weakness as per HPI. Skin: Patient denies rash, abscess, wounds or jaundice. Psych: Patient denies symptoms of uncontrolled aggression or anxiety. Neuro: Patient is obviously confused but she denies headache, paresthesias or focal neurologic weakness. Allergy: Patient denies lip swelling, tongue swelling or urticaria. Hematology: Patient denies easy bleeding or easy bruisability. Endocrinology: Patient denies polyuria, polydipsia, polyphagia or heat/cold intolerance. 14 point ROS otherwise negative except for positives noted above in HPI. Vital Signs Vital Signs Vital Signs: 07/13/25 19:38 07/13/25 20:05 07/13/25 20:46 Temperature 99.9 F H 99.7 F H 98.8 F Temperature Source Oral Oral Oral Pulse Rate 96 99 93 Respiratory Rate 22 H 26 H 16 Blood Pressure 115/92 H 116/68 127/83 H Blood Pressure Mean 99 84 97 Pulse Ox 95 95 94 Oxygen Delivery Method Room Air Room Air Room Air 07/13/25 21:00 07/13/25 22:10 07/13/25 23:12 Temperature 9.4 F L 99.9 F H 99.9 F H Temperature Source Oral Oral Pulse Rate 88 87 107 H Respiratory Rate 14 20 H 18 Blood Pressure 111/89 H 111/82 H 106/86 H Blood Pressure Mean 96 91 92 Pulse Ox 97 97 97 Oxygen Delivery Method Room Air Room Air Weight Weight: 142 lb 10.225 oz Body Mass Index (BMI) 23.7 Physical Exam Const alert, no apparent distress and average body habitus Constitutional Narrative: Patient is pleasantly confused. General Appearance: cooperative Orientation / Consciousness: confused HEENT normocephalic, head/scalp atraumatic, hearing grossly normal bilaterally and moist oral mucous membranes Eyes PERRL, EOMs intact bilaterally and conjunctivae normal Neck no lymphadenopathy, supple and no JVD Resp normal respiratory effort, no retractions, no use of accessory muscles and clearto auscultation bilaterally Cardio regular rate and regular rhythm GI normal to inspection, nondistended, normoactive bowel sounds, soft to palpation,non-tender and non-distended Extremity normal to inspection, full ROM and no clubbing, cyanosis or edema Skin Skin Narrative: Patient has evidence of rash, abscess, wounds or jaundice. Neuro CN's II-XII intact bilaterally, moves all extremities and no focal motor deficits Sensorium / Orientation: awake, alert, oriented to person and oriented to place Speech: speech normal Psych affect normal Results Medical Records Data Attestation: I reviewed the patient's medical records Lab / Micro Data Attestation: I reviewed the patient's lab results. 07/13/25 20:10 07/13/25 20:10 Labs: Laboratory Results - last 24 hr 07/13/25 20:10: WBC 5.9, RBC 3.68 L, Hgb 11.6 L, Hct 35.5 L, MCV 96.5, MCH 31.5,MCHC 32.7, RDW Std Deviation 47.1 H, RDW Coeff of Swapnil 13.3, Plt Count 222, MPV 9.8, Immature Gran % (Auto) 0.700, Neut % (Auto) 85.6 H, Lymph % (Auto) 6.9 L, Wells % (Auto) 6.6, Eos % (Auto) 0.0, Baso % (Auto) 0.2, Absolute Neuts (auto) 5.1, Absolute Lymphs (auto) 0.41 L, Nucleated RBC % 0, PT 13.6, INR 1.0, APTT 34.2, Sodium 128 L, Potassium 4.2, Chloride 96 L, Carbon Dioxide 21.5, Anion Gap11, BUN 21 H, Creatinine 0.76, Estim Creat Clear Calc 42.90 L, Est GFR (MDRD) Non-Af 75, BUN/Creatinine Ratio 27.8 H, Glucose 175 H, Lactic Acid 2.0, Calcium 9.4, Troponin T High Sens 22 H 07/13/25 21:21: Urine Color Yellow, Urine Clarity Clear, Urine pH 5.0, Ur Specific [place] 1.020, Urine Protein 30 H, Urine Glucose (UA) Normal, Urine Ketones 5 H, Urine Occult Blood 150 H, Urine Nitrite Negative, Urine Bilirubin Negative, Urine Urobilinogen Normal, Ur Leukocyte Esterase Negative, Urine RBC 50-100 SEEN, Urine WBC 0-5 SEEN, Ur Squamous Epith Cells 0 SEEN, Urine Bacteria 1+, Hyaline Casts 0-5 SEEN, Urine Mucus 2+ 07/13/25 22:10: Troponin T Hi Sens 2 Hr 11 Imaging Radiology Impression Brain CT 07/13/25 20:05 IMPRESSION: No acute intracranial abnormality. Reading Location: [id number] Chest X-Ray 07/13/25 20:35 IMPRESSION: No acute cardiopulmonary disease. Reading Location: [id number] Imaging Services [address] [place] [id number] Abdomen/Pelvis W IV Cont ONLY MR#: [id number] Acct: [id number] Name: YANN ADAIR Rep #: [id number] : 1935 F 89 From: Melo Lechuga MD PCP: Dr. Fitz Walters MD Status: ADM IN Study: Abdomen/Pelvis W IV Cont ONLY Date of Exam: 07/14/25 Exam# [id number] Ordering Dr: Luke Baez DO PROCEDURE: ABDOMEN/PELVIS W IV CONT ONLY 07/14/2025 REASON FOR EXAM: HEMATURIA TECHNIQUE: Procedure Code: CTABDPELIV Modality: CT Procedure: ABDOMEN/PELVIS W IV CONT ONLY Coronal and Sagittal reconstruction series were provided. CONTRAST: Isovue-350 VOLUME: 100 mL One or more dose reduction techniques were used (e.g., Automated exposure control, adjustment of the mA and/or kV according to patient size, use of iterative reconstruction technique. RADIATION DOSE SUMMARY: CTDlvol: 13.9 mGy DLP: 701 mGycm COMPARISON: None. FINDINGS: Small sliding hiatal hernia. Diffuse thickening of the stomach suggestive of gastritis. Fluid-filled colon, probably secondary to diarrhea/enterocolitis. Scattered right renal simple cysts with the largest measuring 1.7 cm. Mild calcified atheromatous plaques of the aorta. Mild multifocal thickening of the small bowel suggestive of enteritis. No evidence of perforation or pneumatosis intestinalis. Cholelithiasis without acute cholecystitis. Osteopenia. Moderate diffuse spondylosis. Grade 1 anterolisthesis of L4 on L5. Bilateral fat containing inguinal hernias without incarceration. The visualized lung bases are unremarkable. Normal liver. Normal extrahepatic biliary system. Normal spleen. Normal pancreas. Normal bilateral adrenal glands. Normal size of the right kidney. There is no right renal mass. There are no right renal calculi. There is no right hydronephrosis. Normal visualized right ureter. Normal size of the left kidney. There is no left renal mass. There are no leftrenal calculi. There is no left hydronephrosis. Normal visualized left ureter. The appendix is visualized and appears normal. There is no demonstrated peritoneal fluid. Mild calcified atheromatous plaques of the abdominal aorta. Normal inferior vena cava. Normal retroperitoneum. Normal urinary bladder. There is no pelvic mass lesion or lymphadenopathy. There is no pelvic fluid. CT/Abdomen/Pelvis W IV Cont ONLY IMPRESSION: Small sliding hiatal hernia. Diffuse thickening of the stomach suggestive of gastritis. Fluid-filled colon, probably secondary to diarrhea/enterocolitis. Scattered right renal simple cysts with the largest measuring 1.7 cm. Mild calcified atheromatous plaques of the aorta. Mild multifocal thickening of the small bowel suggestive of enteritis. No evidence of perforation or pneumatosis intestinalis. Cholelithiasis without acute cholecystitis. Osteopenia. Moderate diffuse spondylosis. Grade 1 anterolisthesis of L4 on L5. Reading Location: [place] [address] CC: Dr. Luke Baez DO; Dr. 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 Hyponatremia of 128 mmol/L present on admission - Admit to PCU. Continue NSIVF began in ER and recheck serum sodium in a.m. to follow trend. Check urine and serum osmolality. Urine specific gravity of 1.02 in normal range present onadmission. 2. Hypomagnesemia of 1.1 mg/dL present on admission complicating #1 - Give supplemental magnesium sulfate 2g IV once and then recheck level to confirm repletion. 3. Dehydration; with BUN/creatinine ratio of 28.1 present on admission compounding #1 & #2 - Gently volume resuscitate and then recheck renal indices in a.m. to ensure improvement. 4. CT of the abdomen and pelvis this admission revealed fluid-filled colon probably secondary to Diarrhea/Enterocolitis with mild multifocal thickening of small bowel suggestive of Enteritis and diffuse thickening of the stomach suggestive of Gastritis with Low-grade fever of 99.9 ?F present on admission likely causing #1 - #3 - Check stool studies, place on enteric precautions, start IV pantoprazole and treat supportively. Give acetaminophen as needed for pain or fever. 5. Acute Metabolic Encephalopathy in the setting of previously known Chronic Mild Cognitive Impairment due to #1 - #4 - Minimize BAKER PIE-active medications in aneffort to allow sensorium to clear. Check TSH, B12, Folate, UDS and CLARI to evaluate for potentially reversible causes of confusion. 6. Recent admission here from May 10, 2025 to May 12, 2025 for treatment of fatigue, nausea and vomiting following a cat bite with Right calf cellulitis mild hyponatremia of 129 - Noted. 7. Essential hypertension; on losartan - Continue present therapy. 8. Hyperlipidemia; on atorvastatin with history of hypertriglyceridemia - Resume statin and check Lipid Profile. 9. Former tobacco abuse - Noted. 10. DM-2; of unknown control on metformin twice daily with diabetic neuropathy - ADA diet with FSBS q. AC/HS plus SSI. Check HgbA1c to objectively evaluate quality of diabetic control. 11. RA; on methotrexate weekly - Hold methotrexate until source of potential infection identified and neutralized. 12. LUIS E; on ferrous sulfate; on ferrous sulfate - Stable with hemoglobin of 11.6 g/dL and MCV of 96.5 fL present on admission. 13. Glaucoma; on dorzolamide-timolol ophthalmic drops twice daily plus rocklatan eyedrops at bedtime - Maintain present treatment. 14. OAB; s/p bladder repair surgery on mirabegron - Continue mirabegron as before. 15. IBS - Stable. 16. Migraine headaches - Stable no complaints related to this issue at this time. 17. OA - Give acetaminophen prn for pain or fever as outlined in #4. 18. DVT prophylaxis - Enoxaparin 30 mg sq daily plus SCD's. Total time: Approximately (but not less than) 75 minutes. Charges/Coding Visit Charges Inpatient E&M: 91060 Init Hosp L3 07/14/25 2901 <Electronically signed by Candido Quiroga DO> Cosigner Signature (if applicable): CC: Dr. Candido Quiroga DO; Dr. Fitz Walters MD~ Signed [facility] Work Phone: [phone] [facility] Medical Records Department [address] [place] [address] H&P Exam - Hospitalist 07/13/25 4395 MR#: [id number] Acct: [id number] Name: YANN ADAIR Rep #:[id number] : 1935 89 From: Candido Gannon DO PCP: Dr. Fitz Walters MD Status:A DM IN [id number] - General General Date of Admission: 07/14/25 Date of Service: 07/13/25 Chief Complaint: Fever and Confusion. HPI Narrative YANN ADAIR, is a 89 F with a past medical history of essential hypertension; on losartan, hyperlipidemia; on atorvastatin, history of hypertriglyceridemia, former tobacco abuse, DM-2; of unknown control on metformin twice daily, diabetic neuropathy, chronic mild cognitive impairment, RA; on methotrexate weekly, LUIS E; on ferrous sulfate, glaucoma; on dorzolamide-timolol ophthalmic drops twice daily plus rocklatan eyedrops at bedtime, OAB; s/p bladder repair surgery on mirabegron, IBS, migraineheadaches, history of cellulitis, OA and history of recent admission here from May 10, 2025 to May 12, 2025 for treatment of fatigue, nausea and vomiting following a cat bite with Right calf cellulitis mild hyponatremia of 129 who presents to [facility] ER complaining of fever andconfusion. Ms. Adair is not a fully reliable historian at this time but she reports her symptoms began earlier today with the abrupt-onset of confusion and shortness ofbreath with subsequent fall due to generalized weakness. The patient's family members informed the ER physician that she has become progressively more confused throughout the day and fell a few hours prior to arrival. The patient admits to shortness of breath and nonproductive cough in addition to nausea and vomiting of bilious emesis after her fall. Her family informed the ER physicianthat she was only dry heaving. Family did not notice any focal neurologic weakness. In the ER she was noted to have a CT of the abdomen and pelvis this admission revealed fluid-filled colon probably secondary to Diarrhea/Enterocolitis with mild multifocalthickening of small bowel suggestiveof Enteritis and diffuse thickening of the stomach suggestive of Gastritis with Low-grade Fever of 99.9 ?F present on admission in addition to laboratory evidence of mild Hyponatremia of 128 mmol/L plus Dehydration; with BUN/creatinine ratio of 28.1 present on admission with corresponding CXR that revealed no acute cardiopulmonary disease and head CT without contrast that revealed no acute intracranial abnormality with UA that revealed evidence of colonization and mild hematuria but no acute infection complicated by clinical evidence of Acute Metabolic Encephalopathy in the setting of previously known Chronic Mild Cognitive Impairment she was admitted to the PCU for ongoing care for status is expected to extend beyond 2 midnights. [facility] History Acute hyponatremia Cellulitis Cat bite of right lower leg with infection Rheumatoid arthritis Former tobacco use HTN (hypertension) HLD (hyperlipidemia) Irritable bowel syndrome (IBS) Hives High triglycerides Migraines Glaucoma Diabetes mellitus Cataracts, bilateral Arthritis Home Medications ?Medication ?Instructions ?Recorded ?Last Taken ?Type aspirin 81 mg tablet,delayed 81 mg PO DAILY 06/01/22 0 05/10/25 History release (Adult Low Dose Aspirin) atorvastatin 10 mg tablet 10 mg PO DAILY 06/01/2204/16 History metformin 500 mg tablet 500 mg PO BID 06/01/2205/10 History ferrous sulfate 27 mg iron tablet 65 mg PO DAILY 10/2905/10/25 History folic acid 1 mg tablet 2 mg PO DAILY 10/29/2205/10 History losartan 25 mg tablet 25 mg PO DAILY 10/29/2204/16 History methotrexate sodium 2.5 mg tablet 15 mg PO QWEEK 10/2905/09/25 History mirabegron 25 mg tablet,extended 25 mg PO QHS #30 tabs 04/17/25 05/09/25 Rx release 24 hr (Myrbetriq) dorzolamide 22.3 mg-timolol 6.8 1 drp ophthalmic (eye) BID 05/10/25 05/10/25 History mg/mL eye drops netarsudil 0.02 %-latanoprost 1 drp ophthalmic (eye) Q HS 05/10/25 05/09/25 History 0.005 % eye drops (Rocklatan) cyanocobalamin (vitamin B-12) 1,000 mcg PO DAILY #30 t abs 07/09/25 Unknown Rx 1,000 mcg tablet Allergy/AdvReac Type Severity Reaction Status Date / Time Sulfa (Sulfonamide AdvReac Intermediate Hives Verified 07/13/25 20:07 Antibiotics) Family History Father Gallstones BPH (benign prostatic hyperplasia) Mother Alzheimer dementia Surgical History History of bilateral tubal ligation History of bladder repair surgery Social History household members: family Smoking Status: Former smoker how long ago did patient quit smoking: Smoked 40 years, started 19 until quit, ~ 1 ppd. alcohol intake: never substance use type: does not use caffeine: Yes Type: coffee Number of servings: 1 what type of physical activity do you participate in: none rancho/temple: Jew seatbelt use: always ROS ROS Narrative Review of Systems: Constitutional: Patient noted to have low-grade fever in ER as noted in HPI. She denies chills. Eyes: Patient denies change in vision or discharge from eyes. ENT: Patient denies runny nose, sore throat or ear pain. Resp: Patient admits to shortness of breath and nonproductive cough as per HPI. CV: Patient denies chest pain, palpitations, heart racing or lower extremity edema. GI: Patient admits to nausea and vomiting with bilious emesis but she denies diarrhea or constipation. : Patient denies dysuria or hematuria. MSK: Patient admits to generalized weakness as per HPI. Skin: Patient denies rash, abscess, wounds or jaundice. Psych: Patient denies symptoms of uncontrolled aggression or anxiety. Neuro: Patient is obviously confused but she denies headache, paresthesias or focal neurologic weakness. Allergy: Patient denies lip swelling, tongue swelling or urticaria. Hematology: Patient denies easy bleeding or easy bruisability. Endocrinology: Patient denies polyuria, polydipsia, polyphagia or heat/cold intolerance. 14 point ROS otherwise negative except for positives noted above in HPI. Vital Signs Vital Signs Vital Signs: 07/13/25 19:38 07/13/25 20:05 07/13/25 20:46 Temperature 99.9 F H 99.7 F H 98.8 F Temperature Source Oral Oral Oral Pulse Rate 96 99 93 Respiratory Rate 22 H 26 H 16 Blood Pressure 115/92 H 116/68 127/83 H Blood Pressure Mean 99 84 97 Pulse Ox 95 95 94 Oxygen Delivery Method Room Air Room Air Room Air 07/13/25 21:00 07/13/25 22:10 07/13/25 23:12 Temperature 9.4 F L 99.9 F H 99.9 F H Temperature Source Oral Oral Pulse Rate 88 87 107 H Respiratory Rate 14 20 H 18 Blood Pressure 111/89 H 111/82 H 106/86 H Blood Pressure Mean 96 91 92 Pulse Ox 97 97 97 Oxygen Delivery Method Room Air Room Air Weight Weight: 142 lb 10.225 oz Body Mass Index (BMI) 23.7 Physical Exam Const alert, no apparent distress and average body habitus Constitutional Narrative: Patient is pleasantly confused. General Appearance: cooperative Orientation / Consciousness: confused HEENT normocephalic, head/scalp atraumatic, hearing grossly normal bilaterally and moist oral mucous membranes Eyes PERRL, EOMs intact bilaterally and conjunctivae normal Neck no lymphadenopathy, supple and no JVD Resp normal respiratory effort, no retractions, no use of accessory muscles and clearto auscultation bilaterally Cardio regular rate and regular rhythm GI normal to inspection, nondistended, normoactive bowel sounds, soft to palpation,non-tender and non-distended Extremity normal to inspection, full ROM and no clubbing, cyanosis or edema Skin Skin Narrative: Patient has evidence of rash, abscess, wounds or jaundice. Neuro CN's II-XII intact bilaterally, moves all extremities and no focal motor deficits Sensorium / Orientation: awake, alert, oriented to person and oriented to place Speech: speech normal Psych affect normal Results Medical Records Data Attestation: I reviewed the patient's medical records Lab / Micro Data Attestation: I reviewed the patient's lab results. 07/13/25 20:10 07/13/25 20:10 Labs: Laboratory Results - last 24 hr 07/13/25 20:10: WBC 5.9, RBC 3.68 L, Hgb 11.6 L, Hct 35.5 L, MCV 96.5, MCH 31.5,MCHC 32.7, RDW Std Deviation 47.1 H, RDW Coeff of Swapnil 13.3, Plt Count 222, MPV 9.8, Immature Gran % (Auto) 0.700, Neut % (Auto) 85.6 H, Lymph % (Auto) 6.9 L, Wells % (Auto) 6.6, Eos % (Auto) 0.0, Baso % (Auto) 0.2, Absolute Neuts (auto) 5.1, Absolute Lymphs (auto) 0.41 L, Nucleated RBC % 0, PT 13.6, INR 1.0, APTT 34.2,Sodium 128 L, Potassium 4.2, Chloride 96 L, Carbon Dioxide 21.5, Anion Gap11, BUN 21 H, Creatinine 0.76, Estim Creat Clear Calc 42.90 L, Est GFR (MDRD) Non-Af 75, BUN/Creatinine Ratio 27.8 H, [id number] H, Lactic Acid 2.0, Calcium 9.4, Troponin T High Sens 22 H 07/13/25 21:21: Urine Color Yellow, Urine Clarity Clear, Urine pH 5.0, Ur Specific [place] 1.020, Urine Protein 30 H, Urine Glucose (UA) Normal, Urine Ketones 5 H, Urine Occult Blood 150 H, Urine Nitrite Negative, Urine Bilirubin Negative, Urine Urobilinogen Normal, Ur Leukocyte Esterase Negative, Urine RBC 50-100 SEEN, Urine WBC 0-5 SEEN, Ur Squamous Epith Cells 0 SEEN, Urine Bacteria 1+, Hyaline Casts 0-5 SEEN, Urine Mucus 2+ 07/13/25 22:10: Troponin T Hi Sens 2 Hr 11 Imaging Radiology Impression Brain CT 07/13/25 20:05 IMPRESSION: No acute intracranial abnormality. Reading Location: [id number] Chest X-Ray 07/13/25 20:35 IMPRESSION: No acute cardiopulmonary disease. Reading Location: [facility] Imaging Services [address] [place] [address] Abdomen/Pelvis W IV Cont ONLY MR#: [id number] Acct: [id number] Name: YANN ADAIR Rep #: [id number] : 1935 F 89 From: Melo Lechuga MD PCP: Dr. Fitz Walters MD Status: ADM IN Study: Abdomen/Pelvis W IV Cont ONLY Date of Exam: 07/14/25 Exam# [id number] Ordering Dr: Luke Baez DO PROCEDURE: ABDOMEN/PELVIS W IV CONT ONLY 07/14/2025 REASON FOR EXAM: HEMATURIA TECHNIQUE: Procedure Code: CTABDPELIV Modality: CT Procedure: ABDOMEN/PELVIS W IV CONT ONLY Coronal and Sagittal reconstruction series were provided. CONTRAST: Isovue-350 VOLUME: 100 mL One or more dose reduction techniques were used (e.g., Automated exposure control, adjustment of the mA and/or kV according to patient size, use of iterative reconstruction technique. RADIATION DOSE SUMMARY: CTDlvol: 13.9 mGy DLP: 701 mGycm COMPARISON: None. FINDINGS: Small sliding hiatal hernia. Diffuse thickening of the stomach suggestive of gastritis. Fluid-filled colon, probably secondary to diarrhea/enterocolitis. Scattered right renal simple cysts with the largest measuring 1.7 cm. Mild calcified atheromatous plaques of the aorta. Mild multifocal thickening of the small bowel suggestive of enteritis. No evidence of perforation or pneumatosis intestinalis. Cholelithiasis without acute cholecystitis. Osteopenia. Moderate diffuse spondylosis. Grade 1 anterolisthesis of L4 on L5. Bilateral fat containing inguinal hernias without incarceration. The visualized lung bases are unremarkable. Normal liver. Normal extrahepatic biliary system. Normal spleen. Normal pancreas. Normal bilateral adrenal glands. Normal size of the right kidney. There is no right renal mass. There are no right renal calculi. There is no right hydronephrosis. Normal visualized right ureter. Normal size of the left kidney. There is no left renal mass. There are no leftrenal calculi. There is no left hydronephrosis. Normal visualized left ureter. The appendix is visualized and appears normal. There is no demonstrated peritoneal fluid. Mild calcified atheromatous plaques of the abdominal aorta. Normal inferior vena cava. Normal retroperitoneum. Normal urinary bladder. There is no pelvic mass lesion or lymphadenopathy. There is no pelvic fluid. CT/Abdomen/Pelvis W IV Cont ONLY IMPRESSION: Small sliding hiatal hernia. Diffuse thickening of the stomach suggestive of gastritis. Fluid-filled colon, probably secondary to diarrhea/enterocolitis. Scattered right renal simple cysts with the largest measuring 1.7 cm. Mild calcified atheromatous plaques of the aorta. Mild multifocal thickening of the small bowel suggestive of enteritis. No evidence of perforation or pneumatosis intestinalis. Cholelithiasis without acute cholecystitis. Osteopenia. Moderate diffuse spondylosis. Grade 1 anterolisthesis of L4 on L5. Reading Location: [place] [address] CC: Dr. Luke Baez DO; Dr. 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 Hyponatremia of 128 mmol/L present on admission - Admit to PCU. Continue NSIVF began in ER and recheck serum sodium in a.m. to follow trend. Check urine and serum osmolality. Urine specific gravity of 1.02 in normal range present onadmission. 2. Hypomagnesemia of 1.1 mg/dL present on admission complicating #1 - Give supplemental magnesium sulfate 2g IV once and then recheck level to confirm repletion. 3. Dehydration; with BUN/creatinine ratio of 28.1 present on admission compounding #1 & #2 - Gently volume resuscitate and then recheck renal indices in a.m. to ensure improvement. 4. CT of the abdomen and pelvis this admission revealed fluid-filled colon probably secondary to Diarrhea/Enterocolitis with mild multifocal thickening of small bowel suggestive of Enteritis and diffuse thickening of the stomach suggestive of Gastritis with Low-grade fever of 99.9 ?F present on admission likely causing #1 - #3 - Check stool studies, place on enteric precautions, start IV pantoprazole and treat supportively. Give acetaminophen as needed for pain or fever. 5. Acute Metabolic Encephalopathy in the setting of previously known Chronic Mild Cognitive Impairment due to #1 - #4 - Minimize BAKER PIE-active medications in aneffort to allow sensorium to clear. Check TSH, B12, Folate, UDS and CLARI to evaluate for potentially reversible causes of confusion. 6. Recent admission here from May 10, 2025 to May 12, 2025 for treatment of fatigue, nausea and vomiting following a cat bite with Right calf cellulitis mild hyponatremia of 129 - Noted. 7. Essential hypertension; on losartan - Continue present therapy. 8. Hyperlipidemia; on atorvastatin with history of hypertriglyceridemia - Resume statin and check Lipid Profile. 9. Former tobacco abuse - Noted. 10. DM-2; of unknown control on metformin twice daily with diabetic neuropathy - ADA diet with FSBSq. AC/HS plus SSI. Check HgbA1c to objectively evaluate quality of diabetic control. 11. RA; on methotrexate weekly - Hold methotrexate until source of potential infection identified and neutralized. 12. LUIS E; on ferrous sulfate; on ferrous sulfate - Stable with hemoglobin of 11.6 g/dL and MCV of 96.5 fL present on admission. 13. Glaucoma; on dorzolamide-timolol ophthalmic drops twice daily plus rocklatan eyedrops at bedtime - Maintain present treatment. 14. OAB; s/p bladder repair surgery on mirabegron - Continue mirabegron as before. 15. IBS - Stable. 16. Migraine headaches - Stable no complaints related to this issue at this time. 17. OA - Give acetaminophen prn for pain or fever as outlined in #4. 18. DVT prophylaxis - Enoxaparin 30 mg sq daily plus SCD's. Total time: Approximately (but not less than) 75 minutes. Charges/Coding Visit Charges Inpatient E&M: 58250 Init Hosp L3 07/14/25 0949 Cosigner Signature (if applicable): CC: Dr. Candido Quiroga DO; Dr. Fitz Walters MD~ Signed [facility]08-30-2025 Discharge summary Author Luke aBez [facility] Note Date/Time July 13, 2025 11 :46pm [facility] Medical Records Department [address] [place] [address] Emergency Department Summary 07/13/25 MR#: [id number] Acct: [id number] Name: YANN ADAIR Rep #:[id number] : 1935 89 From: Luke Rojas PCP: Dr. Fitz Walters MD Status:R EG ER Location: ED HPI History of Present Illness Chief Complaint: Alt LOC Informant: patient and family Onset/Context/Timing Onset: Today Context: Gradual Onset Timing: Continuous Quality: Confusion Location: Generalized Worsened by: Nothing Relieved by: Nothing Narrative Narrative: Patient presents with confusion, shortness of breath, and a fall that began today. Family states that the patient started becoming more confused today. Family states patient fell a few hours prior to arrival. Patient admits to someshortness of breath and cough. Patient admits to some nausea and vomiting afterthe fall. Family states it was dry heaves. Family states patient was confused on the month and day. Family states that there was a calendar in front of her when they were asking her those questions. Patient denies any fevers or chills. Patient denies any chest pain. Family also noted the patient was having a tremor of her lower jaw. Family states this is not new today. Family does not notice any focal weakness. [facility] Medical History Acute hyponatremia Cellulitis Cat bite of right lower leg with infection Rheumatoid arthritis Former tobacco use HTN (hypertension) HLD (hyperlipidemia) Irritable bowel syndrome (IBS) Hives High triglycerides Migraines Glaucoma Diabetes mellitus Cataracts, bilateral Arthritis Home Medications ?Medication ?Instructions ?Recorded ?Last Taken ?Type aspirin 81 mg tablet,delayed 81 mg PO DAILY 06/01/22 0 05/10/25 History release (Adult Low Dose Aspirin) atorvastatin 10 mg tablet 10 mg PO DAILY 06/01/2204/16 History metformin 500 mg tablet 500 mg PO BID 06/01/2205/10 History ferrous sulfate 27 mg iron tablet 65 mg PO DAILY 10/2905/10/25 History folic acid 1 mg tablet 2 mg PO DAILY 10/29/2205/10 History losartan 25 mg tablet 25 mg PO DAILY 10/29/22 06/05/09 History methotrexate sodium 2.5 mg tablet 15 mg PO QWEEK 10/2905/09/25 History mirabegron 25 mg tablet,extended 25 mg PO QHS #30 tabs 04/17/25 05/09/25 Rx release 24 hr (Myrbetriq) dorzolamide 22.3 mg-timolol 6.8 1 drp ophthalmic (eye) BID 05/10/25 05/10/25 History mg/mL eye drops netarsudil 0.02 %-latanoprost 1 drp ophthalmic (eye) Q HS 05/10/25 05/09/25 History 0.005 % eye drops (Rocklatan) cyanocobalamin (vitamin B-12) 1,000 mcg PO DAILY #30 t abs 07/09/25 Unknown Rx 1,000 mcg tablet Allergy/AdvReac Type Severity Reaction Status Date / Time Sulfa (Sulfonamide AdvReac Intermediate Hives Verified 07/13/25 20:07 Antibiotics) Family History (Updated 05/10/25 @ 20:[address] Misty Blanco MD) Father Gallstones BPH (benign prostatic hyperplasia) Mother Alzheimer dementia Surgical History History of bilateral tubal ligation History of bladder repair surgery Social History household members: family Smoking Status: Former smoker how long ago did patient quit smoking: Smoked 40 years, started 19 until quit, ~ 1 ppd. alcohol intake: never substance use type: does not use caffeine: Yes Type: coffee Number of servings: 1 what type of physical activity do you participate in: none rancho/temple: Jew seatbelt use: always ROS ROS ED Constitutional Constitutional ED: Denies chills or fever(s) Eyes Eyes: Denies blurry vision or change in vision ENT ENT ED: Reports rhinorrhea; Denies sore throat Cardiovascular Cardiovascular: Denies chest pain or palpitations Respiratory/Chest Respiratory/Chest: Reports cough and dyspnea Gastrointestinal Gastrointestinal: Reports nausea and vomiting Genitourinary Genitourinary ED: Denies dysuria or hematuria Musculoskeletal Musculoskeletal: Denies back pain or neck pain Integumentary Denies abscess or rash Neurologic Neurologic: Reports weakness; Denies headache(s) Allergic/Immunologic Allergic/Immunologic ED: Denies mouth swelling or urticaria EXAM Physical Exam Const Vital Signs: 07/13/25 19:38 07/13/25 20:05 07/13/25 20:46 Temperature 99.9 F H 99.7 F H 98.8 F Temperature Source Oral Oral Oral Pulse Rate 96 99 93 Respiratory Rate 22 H 26 H 16 Blood Pressure 115/92 H 116/68 127/83 H Blood Pressure Mean 99 84 97 Pulse Ox 95 95 94 Oxygen Delivery Method Room Air Room Air Room Air 07/13/25 21:00 07/13/25 22:10 07/13/25 23:12 Temperature 9.4 F L 99.9 F H 99.9 F H Temperature Source Oral Oral Pulse Rate 88 87 107 H Respiratory Rate 14 20 H 18 Blood Pressure 111/89 H 111/82 H 106/86 H Blood Pressure Mean 96 91 92 Pulse Ox 97 97 97 Oxygen Delivery Method Room Air Room Air Positive well nourished and well developed General Appearance ED: well developed and NAD HEENT Reports moist mucous membranes Neck supple and no JVD Resp normal respiratory effort and clear to auscultation bilaterally Cardio regular rate and regular rhythm GI non-tender and non-distended Palpation: soft Neuro CN's II-XII intact bilaterally Sensorium / Orientation: alert and orientation impaired Motor Exam: strength 5/5 throughout MDM MDM MDM Narrative Medical decision making narrative: Differential diagnosis includes urinary tract infection, pneumonia, bronchitis, electrolyte abnormality, dehydration, stroke, intracranial bleeding, cardiac dysrhythmia, cardiac ischemia, and dementia. EKG will be obtained to assess forcardiac dysrhythmia and cardiac ischemia. Chest x-ray will be obtained to assess for pneumonia or bronchitis. CT scan of the brain will be obtained to assess for intracranial bleeding and stroke. CBC will be obtained to assess forleukocytosis and anemia. Basic metabolic profile will be obtained to assess forelectrolyte abnormality and renal function. High-sensitivity troponin will be obtained to assess for cardiac ischemia. 2-hour repeat high-sensitivity troponin will be obtained to assess for ongoing cardiac ischemia. Urinalysis will be obtained to assess for urinary tract infection. Lab Data Attestation: I reviewed the patient's lab results. Lab results narrative: CBC was reviewed. There is a mild anemia with a hemoglobin of 11.6 and hematocrit 35.5. The remainder is within normal limits. PT with INR and PTT were reviewed and were within normal limits. Basic metabolic profile was reviewed. Sodium was slightly low at 128 and chloride was 96. BUN was slightlyelevated at 21. Glucose was mildly elevated at 175. The remainder is within normal limits. Serum lactate was reviewed and was 2.0. High-sensitivity troponin was reviewed and was 22. 2-hour repeat high-sensitivity troponin was reviewed and was 11. Urinalysis was reviewed. Occult blood was 150 with 50-100red blood cells. Leukocyte esterase was negative. There are 0-5 white blood cells and 1+ bacteria. Labs: Laboratory Results - last 24 hr 07/13/25 07/13/25 07/13/25 20:10 21:21 22:10 WBC 5.9 RBC 3.68 L Hgb 11.6 L Hct 35.5 L MCV 96.5 MCH 31.5 MCHC 32.7 RDW Std Deviation 47.1 H RDW Coeff of Swapnil 13.3 Plt Count 222 MPV 9.8 Immature Gran % (Auto) 0.700 Neut % (Auto) 85.6 H Lymph % (Auto) 6.9 L Wells % (Auto) 6.6 Eos % (Auto) 0.0 Baso % (Auto) 0.2 Absolute Neuts (auto) 5.1 Absolute Lymphs (auto) 0.41 L Nucleated RBC % 0 PT 13.6 INR 1.0 APTT 34.2 Sodium 128 L Potassium 4.2 Chloride 96 L Carbon Dioxide 21.5 Anion Gap 11 BUN 21 H Creatinine 0.76 Estim Creat Clear Calc 42.90 L Est GFR (MDRD) Non-Af 75 BUN/Creatinine Ratio 27.8 H Glucose 175 H Lactic Acid 2.0 Calcium 9.4 Troponin T High Sens 22 H Troponin T Hi Sens 2 Hr 11 Urine Color Yellow Urine Clarity Clear Urine pH 5.0 Ur Specific [place] 1.020 Urine Protein 30 H Urine Glucose (UA) Normal Urine Ketones 5 H Urine Occult Blood 150 H Urine Nitrite Negative Urine Bilirubin Negative Urine Urobilinogen Normal Ur Leukocyte Esterase Negative Urine RBC 50-100 SEEN Urine WBC 0-5 SEEN Ur Squamous Epith Cells 0 SEEN Urine Bacteria 1+ Hyaline Casts 0-5 SEEN Urine Mucus 2+ Radiography Diagnostic Testing: Clinical Impression(s) from Imaging Studies Brain CT 07/13/25 20:05 IMPRESSION: No acute intracranial abnormality. Reading Location: [facility] Chest X-Ray 07/13/25 20:35 IMPRESSION: No acute cardiopulmonary disease. Reading Location: [facility] CT scan of the brain was obtained. There is no acute intracranial abnormality. This was interpreted by the radiologist and was also independently reviewed by myself. PA and lateral chest x-ray was obtained. There are 2 views. On my independent interpretation, lung shin are clear. There is normal cardiac silhouette. Bony thorax is normal. There is no acute process noted. Radiologist also interpreted the x-ray and agrees. EKG Initial EKG: Attestation: I personally reviewed and interpreted this EKG as follows: Interpretation: Sinus Rhythm (With occasional PACs 83) and No Acute InjuryPattern Comments: EKG was obtained. On my independent interpretation, it showed anormal sinus rhythm with occasional PACs with a rate of 83. UT interval, QRS interval, and QTc intervals were all normal. [place] was normal. There are no acute ST or T wave changes. Prior EKG tracings: available for review Prior: Unchanged (05/10/2025) Management Discussion w/another healthcare provider: Hospitalist Treatment and Re-Evaluation :: Patient was given IV fluids. Urine culture was ordered. Patient was still confused. Patient knew she was at [facility]. Patient does not know the year or month. Family states this is a change in her mental status. Because ofthis, will discuss case with the hospitalist for admission for mental status change. He recommended obtaining CT scan of the abdomen pelvis due to the hematuria. This was ordered. He will admit the patient to his service. Familyunderstands and is agreeable with the plan. All questions were answered. Discharge Plan Triage Chief Complaint: Alt LOC ED Provider: Luke Baez Dx/Rx/DC Orders Clinical Impression: Altered mental status, Hyponatremia, Anemia Prescriptions: No Action aspirin [Adult Low Dose Aspirin] 81 mg tablet,delayed release (DR/EC) 81 mg PO DAILY atorvastatin 10 mg tablet 10 mg PO DAILY metformin 500 mg tablet 500 mg PO BID ferrous sulfate 27 mg iron tablet 65 mg PO DAILY losartan 25 mg tablet 25 mg PO DAILY methotrexate sodium 2.5 mg tablet 15 mg PO QWEEK Rx Instructions: PT TAKES ON WEDNESDAYS folic acid 1 mg tablet 2 mg PO DAILY mirabegron [Myrbetriq] 25 mg tablet extended release 24 hr 25 mg PO QHS Qty: 30 6RF dorzolamide-timolol 22.3-6.8 mg/mL drops 1 drp ophthalmic (eye) BID Rocklatan 0.02-0.005 % drops 1 drp ophthalmic (eye) QHS cyanocobalamin (vitamin B-12) 1,000 mcg tablet 1,000 mcg PO DAILY Qty: 30 10RF Primary Care Provider: Fitz Walters Referrals: Fitz Walters MD [Primary Care Provider] - Print Language: Kyrgyz Disposition Disposition: Home, Self Care What to do if you have Problems For any increased pain, shortness of breath, bleeding, nausea or vomiting, chestpain, or any unexpected problems, contact your Primary Care Provider. Call [facility] ([phone]) or report to the closest Emergency Room. Call 911 if necessary. 07/13/252345 <Electronically signed by Luke Baez DO> Cosigner Signature (if applicable): CC: Dr. Fitz Walters MD ~ Signed [facility] Work Phone: [phone] Radiology Diagnostic study note [facility] Imaging Services [address] [place] [address] [id number] Abdomen/Pelvis W IV Cont ONLY MR#: [id number] Acct: [id number] Name: YANN ADAIR Rep #: [id number] : 1935 F 89 From: Yu Lechuga MD PCP: Dr. Fitz Walters MD Status: A DM IN Study:Abdomen/Pelvis W IV Cont ONLY Date of E xam: 07/14/25 Exam# [id number] Ordering Dr: Luke Baez DO PROCEDURE: ABDOMEN/PELVIS W IV CONT ONLY 07/14/2025 REASON FOR EXAM: HEMATURIA TECHNIQUE: Procedure Code: [id number] Modality: CT Procedure: ABDOMEN/PELVIS W IV CONT ONLY Coronal and Sagittal reconstruction series were provided. CONTRAST: Isovue-350 VOLUME: 100 mL One or more dose reduction techniques were used (e.g., Automated exposure control, adjustment of the mA and/or kV according to patient size, use of iterative reconstruction technique. RADIATION DOSE SUMMARY: CTDlvol: 13.9 mGy DLP: 701 mGycm COMPARISON: None. FINDINGS: Small sliding hiatal hernia. Diffuse thickening of the stomach suggestive of gastritis. Fluid-filled colon, probably secondary to diarrhea/enterocolitis. Scattered right renal simple cysts with the largest measuring 1.7 cm. Mild calcified atheromatous plaques of the aorta. Mild multifocal thickening of the small bowel suggestive of enteritis. No evidence of perforation or pneumatosis intestinalis. Cholelithiasis without acute cholecystitis. Osteopenia. Moderate diffuse spondylosis. Grade 1 anterolisthesis of L4 on L5. Bilateral fat containing inguinal hernias without incarceration. The visualized lung bases are unremarkable. Normal liver. Normal extrahepatic biliary system. Normal spleen. Normal pancreas. Normal bilateral adrenal glands. Normal size of the right kidney. There is no right renal mass. There are no right renal calculi. There is no right hydronephrosis. Normal visualized right ureter. Normal size of the left kidney. There is no left renal mass. There are no leftrenal calculi. There is no left hydronephrosis. Normal visualized left ureter. The appendix is visualized and appears normal. There is no demonstrated peritoneal fluid. Mild calcified atheromatous plaques of the abdominal aorta. Normal inferior vena cava. Normal retroperitoneum. Normal urinary bladder. There is no pelvic mass lesion or lymphadenopathy. There is no pelvic fluid. CT/Abdomen/Pelvis W IV Cont ONLY IMPRESSION: Small sliding hiatal hernia. Diffuse thickening of the stomach suggestive of gastritis. Fluid-filled colon, probably secondary to diarrhea/enterocolitis. Scattered right renal simple cysts with the largest measuring 1.7 cm. Mild calcified atheromatous plaques of the aorta. Mild multifocal thickening of the small bowel suggestive of enteritis. No evidence of perforation or pneumatosis intestinalis. Cholelithiasis without acute cholecystitis. Osteopenia. Moderate diffuse spondylosis. Grade 1 anterolisthesis of L4 on L5. [facility] CC: Dr. Luke Baez, DO; Dr. 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 Medical Records Department [address] [place] [address] Emergency Department Summary 07/13/25 MR#: [id number] Acct: [id number] Name: YANN ADAIR Rep #:[id number] : 1935 89 From: Luke Rojas PCP: Dr. Fitz Walters MD Status:R EG ER Location: ED HPI History of Present Illness Chief Complaint: Alt LOC Informant: patient and family Onset/Context/Timing Onset: Today Context: Gradual Onset Timing: Continuous Quality: Confusion Location: Generalized Worsened by: Nothing Relieved by: Nothing Narrative Narrative: Patient presents with confusion, shortness of breath, and a fall that began today. Family states that the patient started becoming more confused today. Family states patient fell a few hours prior toarrival. Patient admits to someshortness of breath and cough. Patient admits to some nausea and vomiting afterthe fall. Family states it was dry heaves. Family states patient was confused on the month and day. Family states that there was a calendar in front of her when they were asking her those questions. Patient denies any fevers or chills. Patient denies any chest pain. Family also noted the patient was having a tremor of her lower jaw. Family states this is not new today. Family does not notice any focal weakness. [facility] Medical History Acute hyponatremia Cellulitis Cat bite of right lower leg with infection Rheumatoid arthritis Former tobacco use HTN (hypertension) HLD (hyperlipidemia) Irritable bowel syndrome (IBS) Hives High triglycerides Migraines Glaucoma Diabetes mellitus Cataracts, bilateral Arthritis Home Medications ?Medication ?Instructions ?Recorded ?Last Taken ?Type aspirin 81 mg tablet,delayed 81 mg PO DAILY 06/01/22 0 05/10/25 History release (Adult Low Dose Aspirin) atorvastatin 10 mg tablet 10 mg PO DAILY 06/01/2204/16 History metformin 500 mg tablet 500 mg PO BID 06/01/2205/10 History ferrous sulfate 27 mg iron tablet 65 mg PO DAILY 10/2905/10/25 History folic acid 1 mg tablet 2 mg PO DAILY 10/29/2205/10 History losartan 25 mg tablet 25 mg PO DAILY 10/29/2204/16 History methotrexate sodium 2.5 mg tablet 15 mg PO QWEEK 10/2905/09/25 History mirabegron 25 mg tablet,extended 25 mg PO QHS #30 tabs 04/17/25 05/09/25 Rx release 24 hr (Myrbetriq) dorzolamide 22.3 mg-timolol 6.8 1 drp ophthalmic (eye) BID 05/10/25 05/10/25 History mg/mL eye drops netarsudil 0.02 %-latanoprost 1 drp ophthalmic (eye) Q HS 05/10/25 05/09/25 History 0.005 % eye drops (Rocklatan) cyanocobalamin (vitamin B-12) 1,000 mcg PO DAILY #30 t abs 07/09/25 Unknown Rx 1,000 mcg tablet Allergy/AdvReac Type Severity Reaction Status Date / Time Sulfa (Sulfonamide AdvReac Intermediate Hives Verified 07/13/25 20:07 Antibiotics) Family History (Updated 05/10/25 @ 20:[address] Misty Blanco MD) Father Gallstones BPH (benign prostatic hyperplasia) Mother Alzheimer dementia Surgical History History of bilateral tubal ligation History of bladder repair surgery Social History household members: family Smoking Status: Former smoker how long ago did patient quit smoking: Smoked 40 years, started 19 until quit, ~ 1 ppd. alcohol intake: never substance use type: does not use caffeine: Yes Type: coffee Number of servings: 1 what type of physical activity do you participate in: none rancho/temple: Jew seatbelt use: always ROS ROS ED Constitutional Constitutional ED: Denies chills or fever(s) Eyes Eyes: Denies blurry vision or change in vision ENT ENT ED: Reports rhinorrhea; Denies sore throat Cardiovascular Cardiovascular: Denies chest pain or palpitations Respiratory/Chest Respiratory/Chest: Reports cough and dyspnea Gastrointestinal Gastrointestinal: Reports nausea and vomiting Genitourinary Genitourinary ED: Denies dysuria or hematuria Musculoskeletal Musculoskeletal: Denies back pain or neck pain Integumentary Denies abscess or rash Neurologic Neurologic: Reports weakness; Denies headache(s) Allergic/Immunologic Allergic/Immunologic ED: Denies mouth swelling or urticaria EXAM Physical Exam Const Vital Signs: 07/13/25 19:38 07/13/25 20:05 07/13/25 20:46 Temperature 99.9 F H 99.7 F H 98.8 F Temperature Source Oral Oral Oral Pulse Rate 96 99 93 Respiratory Rate 22 H 26 H 16 Blood Pressure 115/92 H 116/68 127/83 H Blood Pressure Mean 99 84 97 Pulse Ox 95 95 94 Oxygen Delivery Method Room Air Room Air Room Air 07/13/25 21:00 07/13/25 22:10 07/13/25 23:12 Temperature 9.4 F L 99.9 F H 99.9 F H Temperature Source Oral Oral Pulse Rate 88 87 107 H Respiratory Rate 14 20 H 18 Blood Pressure 111/89 H 111/82 H 106/86 H Blood Pressure Mean 96 91 92 Pulse Ox 97 97 97 Oxygen Delivery Method Room Air Room Air Positive well nourished and well developed General Appearance ED: well developed and NAD HEENT Reports moist mucous membranes Neck supple and no JVD Resp normal respiratory effort and clear to auscultation bilaterally Cardio regular rate and regular rhythm GI non-tender and non-distended Palpation: soft Neuro CN's II-XII intact bilaterally Sensorium / Orientation: alert and orientation impaired Motor Exam: strength 5/5 throughout MDM MDM MDM Narrative Medical decision making narrative: Differential diagnosis includes urinary tract infection, pneumonia, bronchitis, electrolyte abnormality, dehydration, stroke, intracranial bleeding, cardiac dysrhythmia, cardiac ischemia, and dementia. EKG will be obtained to assess forcardiac dysrhythmia and cardiac ischemia. Chest x-ray will be obtained to assess for pneumonia or bronchitis. CT scan of the brain will be obtained to assess for intracranial bleeding and stroke. CBC will be obtained to assess forleukocytosis and anemia. Basic metabolic profile will be obtained to assess forelectrolyte abnormality and renal function. High-sensitivity troponin will be obtained to assess for cardiac ischemia. 2-hour repeat high-sensitivity troponin will be obtained to assess for ongoing cardiac ischemia. Urinalysis will be obtained to assess for urinary tract infection. Lab Data Attestation: I reviewed the patient's lab results. Lab results narrative: CBC was reviewed. There is a mild anemia with a hemoglobin of 11.6 and hematocrit 35.5. The remainder is within normal limits. PT with INR and PTT were reviewed and were within normal limits. Basic metabolic profile was reviewed. Sodium was slightly low at 128 and chloride was 96. BUN was slightlyelevated at 21. Glucose was mildly elevated at 175. The remainder is within normal limits. Serum lactate was reviewed and was 2.0. High-sensitivity troponin was reviewed and was 22. 2-hour repeat high-sensitivity troponin was reviewed and was 11. Urinalysis was reviewed. Occult blood was 150 with 50-100red blood cells. Leukocyte esterase was negative. There are 0-5 white blood cells and 1+ bacteria. Labs: Laboratory Results - last 24 hr 07/13/25 07/13/25 07/13/25 20:10 21:21 22:10 WBC 5.9 RBC 3.68 L Hgb 11.6 L Hct 35.5 L MCV 96.5 MCH 31.5 MCHC 32.7 RDW Std Deviation 47.1 H RDW Coeff of Swapnil 13.3 Plt Count 222 MPV 9.8 Immature Gran % (Auto) 0.700 Neut % (Auto) 85.6 H Lymph % (Auto) 6.9 L Wells % (Auto) 6.6 Eos % (Auto) 0.0 Baso % (Auto) 0.2 Absolute Neuts (auto) 5.1 Absolute Lymphs (auto) 0.41 L Nucleated RBC % 0 PT 13.6 INR 1.0 APTT 34.2 Sodium 128 L Potassium 4.2 Chloride 96 L Carbon Dioxide 21.5 Anion Gap 11 BUN 21 H Creatinine 0.76 Estim Creat Clear Calc 42.90 L Est GFR (MDRD) Non-Af 75 BUN/Creatinine Ratio 27.8 H Glucose 175 H Lactic Acid 2.0 Calcium 9.4 Troponin T High Sens 22 H Troponin T Hi Sens 2 Hr 11 Urine Color Yellow Urine Clarity Clear Urine pH 5.0 Ur Specific [place] 1.020 Urine Protein 30 H Urine Glucose (UA) Normal Urine Ketones 5 H Urine Occult Blood 150 H Urine Nitrite Negative Urine Bilirubin Negative Urine Urobilinogen Normal Ur Leukocyte Esterase Negative Urine RBC 50-100 SEEN Urine WBC 0-5 SEEN Ur Squamous Epith Cells 0 SEEN Urine Bacteria 1+ Hyaline Casts 0-5 SEEN Urine Mucus 2+ Radiography Diagnostic Testing: Clinical Impression(s) from Imaging Studies Brain CT 07/13/25 20:05 IMPRESSION: No acute intracranial abnormality. Reading Location: [facility] Chest X-Ray 07/13/25 20:35 IMPRESSION: No acute cardiopulmonary disease. Reading Location: [facility] CT scan of the brain was obtained. There is no acute intracranial abnormality. This was interpretedby the radiologist and was also independently reviewed by myself. PA and lateral chest x-ray was obtained. There are 2 views. On my independent interpretation, lung shin are clear. There is normal cardiac silhouette. Bony thorax is normal. There is no acute process noted. Radiologist also interpreted the x-ray and agrees. EKG Initial EKG: Attestation: I personally reviewed and interpreted this EKG as follows: Interpretation: Sinus Rhythm (With occasional PACs 83) and No Acute InjuryPattern Comments: EKG was obtained. On my independent interpretation, it showed anormal sinus rhythm with occasional PACs with a rate of 83. UT interval, QRS interval, and QTc intervals were all normal. Axiswas normal. There are no acute ST or T wave changes. Prior EKG tracings: available for review Prior: Unchanged (05/10/2025) Management Discussion w/another healthcare provider: Hospitalist Treatment and Re-Evaluation :: Patient was given IV fluids. Urine culture was ordered. Patient was still confused. Patient knew she was at [facility]. Patient does not know the year or month. Family states this is a change in her mental status. Because ofthis, will discuss case with the hospitalist for admission for mentalstatus change. He recommended obtaining CT scan of the abdomen pelvis due to the hematuria. This was ordered. He will admit the patient to his service. Familyunderstands and is agreeable with the plan. All questions were answered. Discharge Plan Triage Chief Complaint: Alt LOC ED Provider: Luke Baez Dx/Rx/DC Orders Clinical Impression: Altered mental status, Hyponatremia, Anemia Prescriptions: No Action aspirin [Adult Low Dose Aspirin] 81 mg tablet,delayed release (DR/EC) 81 mg PO DAILY atorvastatin 10 mg tablet 10 mg PO DAILY metformin 500 mg tablet 500 mg PO BID ferrous sulfate 27 mg iron tablet 65 mg PO DAILY losartan 25 mg tablet 25 mg PO DAILY methotrexate sodium 2.5 mg tablet 15 mg PO QWEEK Rx Instructions: PT TAKES ON WEDNESDAYS folic acid 1 mg tablet 2 mg PO DAILY mirabegron [Myrbetriq] 25 mg tablet extended release 24 hr 25 mg PO QHS Qty: 30 6RF dorzolamide-timolol 22.3-6.8 mg/mL drops 1 drp ophthalmic (eye) BID Rocklatan 0.02-0.005 % drops 1 drp ophthalmic (eye) QHS cyanocobalamin (vitamin B-12) 1,000 mcg tablet 1,000 mcg PO DAILY Qty: 30 10RF Primary Care Provider: Fitz Walters Referrals: Fitz Walters MD [Primary Care Provider] - Print Language: Kyrgyz Disposition Disposition: Home, Self Care What to do if you have Problems For any increased pain, shortness of breath, bleeding, nausea or vomiting, chestpain, or any unexpected problems, contact your Primary Care Provider. Call [facility] ([phone]) or report tothe closest Emergency Room. Call 911 if necessary. 07/13/25 7216 Cosigner Signature (if applicable): CC: Dr. Fitz Walters MD ~ Signed [facility]08-29-2025 Radiology Diagnostic study note [facility] Imaging Services [address] [place] [address] Chest PA and Lateral MR#: [id number] Acct: [id number] Name: MANAYANN Rep #: [id number] : 1935 F 89 From: Thien Hollis MD PCP: Dr. Fitz Walters MD Status: R EG ER Study:Chest PA and Lateral Date of Exam: 07/13/25 Exam# [id number] Ordering Dr: Luke Baez DO PROCEDURE: CHEST PA AND LATERAL 07/13/2025 REASON FOR EXAM: WEAKNESS TECHNIQUE: Procedure Code: RADCXR Modality: DX Procedure: CHEST PA AND LATERAL COMPARISON: 05/10/2025 FINDINGS: Lungs/Pleura: No focal consolidation, pneumothorax or pleural effusion. Probable subcentimeter calcified granuloma in the lateral right mid lung zone. Heart/Mediastinum: Within normal limits. Tortuous and calcified thoracic aorta. Bones/Soft tissues: Degenerative changes of the spine and bilateral shoulders. RAD/Chest PA and Lateral IMPRESSION: No acute cardiopulmonary disease. Reading Location: [id number] CC: Dr. Luke Baez DO; Dr. Fitz Walters MD ~ Welding Pantograph Machine Operator: Signed [facility]08-29-2025 Radiology Diagnostic study note [facility] Imaging Services [address] [place], [place] [id number] Brain/Head without Contrast MR#: [id number] Acct: [id number] Name: YANN ADAIR Rep #: [id number] : 1935 F 89 From: Thien Hollis MD PCP: Dr. Fitz Walters MD Status: R EG ER Study:Brain/Head without Contrast Date of Exa m: 07/13/25 Exam# [id number] Ordering Dr: Luke Baez DO PROCEDURE: CT BRAIN/HEAD WITHOUT CONTRAST 07/13/2025 REASON FOR EXAM: WEAKNESS, FALL TECHNIQUE: Procedure Code: CTBR Modality: CT Procedure: BRAIN/HEAD WITHOUT CONTRAST Coronal and Sagittal reconstruction series were provided. One or more dose reduction techniques were used (e.g., Automated exposure control, adjustment of the mA and/or kV according to patient size, use of iterative reconstruction technique. RADIATION DOSE SUMMARY: CTDlvol: 44.99 mGy DLP: 796.11 mGycm COMPARISON: Brain MRI 06/12/2022. FINDINGS: No acute intracranial hemorrhage, extra-axial collection, mass effect or evidence of acute infarct. Moderate generalized brain parenchymal volume loss, and mild chronic microangiopathic changes. Absent sleetmute ocular lenses. Atherosclerotic calcification along the carotid siphons. Intact skull base and calvarium. No mastoid effusions. Mild peripheral mucosal thickening in the bilateral maxillary sinuses. Right dominik bullosa and mild left nasal septum deviation. CT/Brain/Head without Contrast IMPRESSION: No acute intracranial abnormality. Reading Location: [id number] CC: Dr. Luke Baez DO; Dr. Fitz Walters MD ~ Welding Pantograph Machine Operator: Signed [facility]08-29-2025 Discharge summary Author Luke Baez [facility] Note Date/Time July 13, 2025 11 :46pm [facility] Medical Records Department [address] [place] [address] Emergency Department Summary 07/13/25 MR#: [id number] Acct: [id number] Name: YANN ADAIR Rep #:[id number] : 1935 89 From: Luke Rojas PCP: Dr. Fitz Walters MD Status:R EG ER Location: ED HPI History of Present Illness Chief Complaint: Alt LOC Informant: patient and family Onset/Context/Timing Onset: Today Context: Gradual Onset Timing: Continuous Quality: Confusion Location: Generalized Worsened by: Nothing Relieved by: Nothing Narrative Narrative: Patient presents with confusion, shortness of breath, and a fall that began today. Family states that the patient started becoming more confused today. Family states patient fell a few hours prior to arrival. Patient admits to someshortness of breath and cough. Patient admits to some nausea and vomiting afterthe fall. Family states it was dry heaves. Family states patient was confused on the month and day. Family states that there was a calendar in front of her when they were asking her those questions. Patient denies any fevers or chills. Patient denies any chest pain. Family also noted the patient was having a tremor of her lower jaw. Family states this is not new today. Family does not notice any focal weakness. [facility] Medical History Acute hyponatremia Cellulitis Cat bite of right lower leg with infection Rheumatoid arthritis Former tobacco use HTN (hypertension) HLD (hyperlipidemia) Irritable bowel syndrome (IBS) Hives High triglycerides Migraines Glaucoma Diabetes mellitus Cataracts, bilateral Arthritis Home Medications ?Medication ?Instructions ?Recorded ?Last Taken ?Type aspirin 81 mg tablet,delayed 81 mg PO DAILY 06/01/22 0 05/10/25 History release (Adult Low Dose Aspirin) atorvastatin 10 mg tablet 10 mg PO DAILY 06/01/2204/16 History metformin 500 mg tablet 500 mg PO BID 06/01/2205/10 History ferrous sulfate 27 mg iron tablet 65 mg PO DAILY 10/2905/10/25 History folic acid 1 mg tablet 2 mg PO DAILY 10/29/2205/10 History losartan 25 mg tablet 25 mg PO DAILY 10/29/2204/16 History methotrexate sodium 2.5 mg tablet 15 mg PO QWEEK 10/2905/09/25 History mirabegron 25 mg tablet,extended 25 mg PO QHS #30 tabs 04/17/25 05/09/25 Rx release 24 hr (Myrbetriq) dorzolamide 22.3 mg-timolol 6.8 1 drp ophthalmic (eye) BID 05/10/25 05/10/25 History mg/mL eye drops netarsudil 0.02 %-latanoprost 1 drp ophthalmic (eye) Q HS 05/10/25 05/09/25 History 0.005 % eye drops (Rocklatan) cyanocobalamin (vitamin B-12) 1,000 mcg PO DAILY #30 t abs 07/09/25 Unknown Rx 1,000 mcg tablet Allergy/AdvReac Type Severity Reaction Status Date / Time Sulfa (Sulfonamide AdvReac Intermediate Hives Verified 07/13/25 20:07 Antibiotics) Family History (Updated 05/10/25 @ 20:[address] Misty Blanco MD) Father Gallstones BPH (benign prostatic hyperplasia) Mother Alzheimer dementia Surgical History History of bilateral tubal ligation History of bladder repair surgery Social History household members: family Smoking Status: Former smoker how long ago did patient quit smoking: Smoked 40 years, started 19 until quit, ~ 1 ppd. alcohol intake: never substance use type: does not use caffeine: Yes Type: coffee Number of servings: 1 what type of physical activity do you participate in: none rancho/temple: Jew seatbelt use: always ROS ROS ED Constitutional Constitutional ED: Denies chills or fever(s) Eyes Eyes: Denies blurry vision or change in vision ENT ENT ED: Reports rhinorrhea; Denies sore throat Cardiovascular Cardiovascular: Denies chest pain or palpitations Respiratory/Chest Respiratory/Chest: Reports cough and dyspnea Gastrointestinal Gastrointestinal: Reports nausea and vomiting Genitourinary Genitourinary ED: Denies dysuria or hematuria Musculoskeletal Musculoskeletal: Denies back pain or neck pain Integumentary Denies abscess or rash Neurologic Neurologic: Reports weakness; Denies headache(s) Allergic/Immunologic Allergic/Immunologic ED: Denies mouth swelling or urticaria EXAM Physical Exam Const Vital Signs: 07/13/25 19:38 07/13/25 20:05 07/13/25 20:46 Temperature 99.9 F H 99.7 F H 98.8 F Temperature Source Oral Oral Oral Pulse Rate 96 99 93 Respiratory Rate 22 H 26 H 16 Blood Pressure 115/92 H 116/68 127/83 H Blood Pressure Mean 99 84 97 Pulse Ox 95 95 94 Oxygen Delivery Method Room Air Room Air Room Air 07/13/25 21:00 07/13/25 22:10 07/13/25 23:12 Temperature 9.4 F L 99.9 F H 99.9 F H Temperature Source Oral Oral Pulse Rate 88 87 107 H Respiratory Rate 14 20 H 18 Blood Pressure 111/89 H 111/82 H 106/86 H Blood Pressure Mean 96 91 92 Pulse Ox 97 97 97 Oxygen Delivery Method Room Air Room Air Positive well nourished and well developed General Appearance ED: well developed and NAD HEENT Reports moist mucous membranes Neck supple and no JVD Resp normal respiratory effort and clear to auscultation bilaterally Cardio regular rate and regular rhythm GI non-tender and non-distended Palpation: soft Neuro CN's II-XII intact bilaterally Sensorium / Orientation: alert and orientation impaired Motor Exam: strength 5/5 throughout MDM MDM MDM Narrative Medical decision making narrative: Differential diagnosis includes urinary tract infection, pneumonia, bronchitis, electrolyte abnormality, dehydration, stroke, intracranial bleeding, cardiac dysrhythmia, cardiac ischemia, and dementia. EKG will be obtained to assess forcardiac dysrhythmia and cardiac ischemia. Chest x-ray will be obtained to assess for pneumonia or bronchitis. CT scan of the brain will be obtained to assess for intracranial bleeding and stroke. CBC will be obtained to assess forleukocytosis and anemia. Basic metabolic profile will be obtained to assess forelectrolyte abnormality and renal function. High-sensitivity troponin will be obtained to assess for cardiac ischemia. 2-hour repeat high-sensitivity troponin will be obtained to assess for ongoing cardiac ischemia. Urinalysis will be obtained to assess for urinary tract infection. Lab Data Attestation: I reviewed the patient's lab results. Lab results narrative: CBC was reviewed. There is a mild anemia with a hemoglobin of 11.6 and hematocrit 35.5. The remainder is within normal limits. PT with INR and PTT were reviewed and were within normal limits. Basic metabolic profile was reviewed. Sodium was slightly low at 128 and chloride was 96. BUN was slightlyelevated at 21. Glucose was mildly elevated at 175. The remainder is within normal limits. Serum lactate was reviewed and was 2.0. High-sensitivity troponin was reviewed and was 22. 2-hour repeat high-sensitivity troponin was reviewed and was 11. Urinalysis was reviewed. Occult blood was 150 with 50-100red blood cells. Leukocyte esterase was negative. There are 0-5 white blood cells and 1+ bacteria. Labs: Laboratory Results - last 24 hr 07/13/25 07/13/25 07/13/25 20:10 21:21 22:10 WBC 5.9 RBC 3.68 L Hgb 11.6 L Hct 35.5 L MCV 96.5 MCH 31.5 MCHC 32.7 RDW Std Deviation 47.1 H RDW Coeff of Swapnil 13.3 Plt Count 222 MPV 9.8 Immature Gran % (Auto) 0.700 Neut % (Auto) 85.6 H Lymph % (Auto) 6.9 L Wells % (Auto) 6.6 Eos % (Auto) 0.0 Baso % (Auto) 0.2 Absolute Neuts (auto) 5.1 Absolute Lymphs (auto) 0.41 L Nucleated RBC % 0 PT 13.6 INR 1.0 APTT 34.2 Sodium 128 L Potassium 4.2 Chloride 96 L Carbon Dioxide 21.5 Anion Gap 11 BUN 21 H Creatinine 0.76 Estim Creat Clear Calc 42.90 L Est GFR (MDRD) Non-Af 75 BUN/Creatinine Ratio 27.8 H Glucose 175 H Lactic Acid 2.0 Calcium 9.4 Troponin T High Sens 22 H Troponin T Hi Sens 2 Hr 11 Urine Color Yellow Urine Clarity Clear Urine pH 5.0 Ur Specific [place] 1.020 Urine Protein 30 H Urine Glucose (UA) Normal Urine Ketones 5 H Urine Occult Blood 150 H Urine Nitrite Negative Urine Bilirubin Negative Urine Urobilinogen Normal Ur Leukocyte Esterase Negative Urine RBC 50-100 SEEN Urine WBC 0-5 SEEN Ur Squamous Epith Cells 0 SEEN Urine Bacteria 1+ Hyaline Casts 0-5 SEEN Urine Mucus 2+ Radiography Diagnostic Testing: Clinical Impression(s) from Imaging Studies Brain CT 07/13/25 20:05 IMPRESSION: No acute intracranial abnormality. Reading Location: [facility] Chest X-Ray 07/13/25 20:35 IMPRESSION: No acute cardiopulmonary disease. Reading Location: [facility] CT scan of the brain was obtained. There is no acute intracranial abnormality. This was interpreted by the radiologist and was also independently reviewed by myself. PA and lateral chest x-ray was obtained. There are 2 views. On my independent interpretation, lung shin are clear. There is normal cardiac silhouette. Bony thorax is normal. There is no acute process noted. Radiologist also interpreted the x-ray and agrees. EKG Initial EKG: Attestation: I personally reviewed and interpreted this EKG as follows: Interpretation: Sinus Rhythm (With occasional PACs 83) and No Acute InjuryPattern Comments: EKG was obtained. On my independent interpretation, it showed anormal sinus rhythm with occasional PACs with a rate of 83. UT interval, QRS interval, and QTc intervals were all normal. [place] was normal. There are no acute ST or T wave changes. Prior EKG tracings: available for review Prior: Unchanged (05/10/2025) Management Discussion w/another healthcare provider: Hospitalist Treatment and Re-Evaluation :: Patient was given IV fluids. Urine culture was ordered. Patient was still confused. Patient knew she was at [facility]. Patient does not know the year or month. Family states this is a change in her mental status. Because ofthis, will discuss case with the hospitalist for admission for mental status change. He recommended obtaining CT scan of the abdomen pelvis due to the hematuria. This was ordered. He will admit the patient to his service. Familyunderstands and is agreeable with the plan. All questions were answered. Discharge Plan Triage Chief Complaint: Alt LOC ED Provider: Luke Baez Dx/Rx/DC Orders Clinical Impression: Altered mental status, Hyponatremia, Anemia Prescriptions: No Action aspirin [Adult Low Dose Aspirin] 81 mg tablet,delayed release (DR/EC) 81 mg PO DAILY atorvastatin 10 mg tablet 10 mg PO DAILY metformin 500 mg tablet 500 mg PO BID ferrous sulfate 27 mg iron tablet 65 mg PO DAILY losartan 25 mg tablet 25 mg PO DAILY methotrexate sodium 2.5 mg tablet 15 mg PO QWEEK Rx Instructions: PT TAKES ON WEDNESDAYS folic acid 1 mg tablet 2 mg PO DAILY mirabegron [Myrbetriq] 25 mg tablet extended release 24 hr 25 mg PO QHS Qty: 30 6RF dorzolamide-timolol 22.3-6.8 mg/mL drops 1 drp ophthalmic (eye) BID Rocklatan 0.02-0.005 % drops 1 drp ophthalmic (eye) QHS cyanocobalamin (vitamin B-12) 1,000 mcg tablet 1,000 mcg PO DAILY Qty: 30 10RF Primary Care Provider: Fitz Walters Referrals: Fitz Walters MD [Primary Care Provider] - Print Language: Kyrgyz Disposition Disposition: Home, Self Care What to do if you have Problems For any increased pain, shortness of breath, bleeding, nausea or vomiting, chestpain, or any unexpected problems, contact your Primary Care Provider. Call [facility] ([phone]) or report to the closest Emergency Room. Call 911 if necessary. 07/13/25 5636 <Electronically signed by Luke Baez DO> Cosigner Signature (if applicable): CC: Dr. Fitz Walters MD ~ Signed [facility] Work Phone: [phone]) 313-824507-09-2025 NoteHNO ID: [id number] Author: SANDRA COOMBS APRN.FLAGSETTER Service: ? Author Type: Nurse Practitioner Type: Progress Notes Filed: 05/23/2025 15:29 Note Text: CC: Patient presents with: Hospital F/U: Cat bite right lower leg HPI Recording using ambient TestCred software for draft documentation of the visit was discussed with the patient/authorized consumer sales representative; all questions welcomed and answered. Patient/authorized consumer sales representative agreed to proceed Yann Adair is a 89-year-old female presenting for follow-up after an ER visit and hospitalization due to a cat bite on the right leg. Yann was seen in the ER on 05/12 for right leg erythema following a cat bite that occurred the previous day. She initially presented to urgent care on the day of the bite and was prescribed Augmentin, but developed emesis after two doses. In the ER, her right calf was noted to be erythematous and warm. Laboratory results showed a WBC count of 14 and sodium level of 129, with the remainder of the labs being unremarkable. She was admitted for overnight observation and discharged on cefdinir 300 mg PO BID and metronidazole 250 mg PO TID for 5 days, with Augmentin being discontinued. It was suspected that the nausea and vomiting were due to the Augmentin rather than the cat bite. A few days after returning home, Yann experienced increased pain at the bite site, which was managed with Tylenol. The bite area was also noted to be "seeping" fluid. Yann applied antiseptic and used a Band-Aid to manage the drainage. The swelling, initially significant, has been improving. She completed the prescribed antibiotics without experiencing diarrhea or vomiting. She denies fever or chills. 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 Generalized osteoarthrosis, unspecified site Glaucoma 02/23/2023 Herpes zoster January2010 Left perianal, left genitalia Other psoriasis RUPT EXTEN TENDON HAND 10/05/2005 Tinnitus 07/20/2007 Type II or unspecified type diabetes mellitus without mention of complication, not stated as uncontrolled Unspecified essential hypertension URINARY INCONTINENCE, UNSPECIFIED 08/10/2006 PAST SURGICAL HISTORY Procedure Laterality Date COLONOSCOPY FLX DX W/COLLJ SPEC WHEN PFRMD 01/28/2005 Colonoscopy CYSTOURETHROSCOPY 05/2005 Cystoscopy PAST SURGICAL HISTORY OF Bilateral 2015 Cataract surgery right eye in June and left eye in July by Dr. Liang. SALPINGECTOMY 1970 bilateral, tubal preg. 1970s SLING OPER STRES INCONTINENCE 05/2005 Dr. Rodriguez ALLERGIES Sulfur MEDICATIONS mirabegron (MYRBETRIQ) 25 mg Tb24 daily at bedtime. losartan (COZAAR) 25 mg tablet Take 1 tablet by mouth once daily. For high blood pressure. atorvastatin (LIPITOR) 10 mg tablet Take 1 tablet by mouth once daily. metFORMIN (GLUCOPHAGE) 500 mg tablet Take 1 tablet by mouth two times a day with meals. ROCKLATAN 0.02-0.005 % ophthalmic solution Use 1 Drop in both eyes daily at bedtime. cyanocobalamin, vitamin B-12, (VITAMIN B12 ORAL) Take 1 tablet by mouth once daily. methotrexate 2.5 mg tablet 6 tabs once weekly ferrous sulfate 325 mg (65 mg iron) tablet Take 1 tablet by mouth daily with breakfast. Lancets (UrjanetTOUCH ULTRASOFT LANCETS) lancets Test blood sugar(s) 1 [...] TAB Take one (1) tablet daily . cefdinir (OMNICEF) 300 mg capsule Take 1 capsule by mouth two times a day for 5 days. metroNIDAZOLE (FLAGYL) 250 mg tablet Take 1 tablet by mouth three times a day for 5 days. dorzolamide-timolol (COSOPT) 22.3-6.8 mg/mL ophthalmic solution Use 1 Drop in both eyes twice daily. FAMILY HISTORY Problem Relation Age of Onset Alzheimer's Disease Mother Diabetes Father Diabetes Sister Cancer Sister uterine cancer other (NEUROPATHY) Sister Cancer Other Skin, bladder Diabetes Daughter Social History Tobacco Use Smoking status: Former Current packs/day: 0.00 Average packs/day: 1 pack/day for 15.0 years (15.0 ttl pk-yrs) Types: Cigarettes Start date: 09/02/1975 Quit date: 09/02/1990 Years since quittin.7 Smokeless tobacco: Never Vaping Use Vaping status: Never Used Substance Use Topics Alcohol use: Not Currently Drug use: Never BP 114/72 Pulse 68 Temp 36.2 ?C (97.2 ?F) (Temporal) Resp 12 Wt 63 kg (138 lb 14.2 oz) SpO2 94% BMI 25.61 kg/m? Physical Exam Vitals reviewed. Constitutional: Genera (more content not included)...[facility]07-09-2025 History of Present illness Narrative* Sandra Coombs, TURN LASTER.FLAGSETTER - 05/23/2025 3:23 PM EDT Images from the original note were not included. CC: Patient presents with: Hospital F/U: Cat bite right lower leg HPI Recording using ambient TestCred software for draft documentation of the visit was discussed with the patient/authorized consumer sales representative; all questions welcomed and answered. Patient/authorized consumer sales representative agreed to proceed Yann Adair is a 89-year-old female presenting for follow-up after an ER visit and hospitalization due to a cat bite on the right leg. Yann was seen in the ER on 05/12 for right leg erythema following a cat bite that occurred the previous day. She initially presented to urgent care on the day of the bite and was prescribed Augmentin, but developed emesis after two doses. In the ER, her right calf was noted to be erythematous and warm. Laboratory results showed a WBC count of 14 and sodium level of 129, with the remainder of the labs being unremarkable. She was admitted for overnight observation and discharged on cefdinir 300 mg PO BID and metronidazole 250 mg PO TID for 5 days, with Augmentin being discontinued. It was suspected that the nausea and vomiting were due to the Augmentin rather than the cat bite. A few days after returning home, Yann experienced increased pain at the bite site, which was managed with Tylenol. The bite area was also noted to be "seeping" fluid. Yann applied antiseptic and used a Band-Aid to manage the drainage. The swelling, initially significant, has been improving. She completed the prescribed antibiotics without experiencing diarrhea or vomiting. She denies fever or chills. 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 Generalized osteoarthrosis, unspecified site Glaucoma 02/23/2023 Herpes zoster January2010 Left perianal, left genitalia Other psoriasis RUPT EXTEN TENDON HAND 10/05/2005 Tinnitus 07/20/2007 Type II or unspecified type diabetes mellitus without mention of complication, not stated as uncontrolled Unspecified essential hypertension URINARY INCONTINENCE, UNSPECIFIED 08/10/2006 PAST SURGICAL HISTORY Procedure Laterality Date COLONOSCOPY FLX DX W/COLLJ SPEC WHEN PFRMD 01/28/2005 Colonoscopy CYSTOURETHROSCOPY 05/2005 Cystoscopy PAST SURGICAL HISTORY OF Bilateral 2015 Cataract surgery right eye in June and left eye in July by Dr. Liang. SALPINGECTOMY 1970 bilateral, tubal preg. 1970s SLING OPER STRES INCONTINENCE 05/2005 Dr. Rodriguez ALLERGIES Sulfur MEDICATIONS mirabegron (MYRBETRIQ) 25 mg Tb24 daily at bedtime. losartan (COZAAR) 25 mg tablet Take 1 tablet by mouth once daily. For high blood pressure. atorvastatin (LIPITOR) 10 mg tablet Take 1 tablet by mouth once daily. metFORMIN (GLUCOPHAGE) 500 mg tablet Take 1 tablet by mouth two times a day with meals. ROCKLATAN 0.02-0.005 % ophthalmic solution Use 1 Drop in both eyes daily at bedtime. cyanocobalamin, vitamin B-12, (VITAMIN B12 ORAL) Take 1 tablet by mouth once daily. methotrexate 2.5 mg tablet 6 [...] TAB Take one (1) tablet daily . cefdinir (OMNICEF) 300 mg capsule Take 1 capsule by mouth two times a day for 5 days. metroNIDAZOLE (FLAGYL) 250 mg tablet Take 1 tablet by mouth three times a day for 5 days. dorzolamide-timolol (COSOPT) 22.3-6.8 mg/mL ophthalmic solution Use 1 Drop in both eyes twice daily. FAMILY HISTORY Problem Relation Age of Onset Alzheimer's Disease Mother Diabetes Father Diabetes Sister Cancer Sister uterine cancer other (NEUROPATHY) Sister Cancer Other Skin, bladder Diabetes Daughter Social History Tobacco Use Smoking status: Former Current packs/day: 0.00 Average packs/day: 1 pack/day for 15.0 years (15.0 ttl pk-yrs) Types: Cigarettes Start date: 09/02/1975 Quit date: 09/02/1990 Years since quittin.7 Smokeless tobacco: Never Vaping Use Vaping status: Never Used Substance Use Topics Alcohol use: Not Currently Drug use: Never BP 114/72 Pulse 68 Temp 36.2 C (97.2 F) (Temporal) Resp 12 Wt 63 kg (138 lb 14.2 oz) [id number]% BMI 25.61 kg/m Physical Exam Vitals reviewed. Constitutional: General: She is not in acute distress. Appearance: Normal appearance. She is not ill-appearing or toxic-appearing. Musculoskeletal: Right lower le+ Pitting Edema present. Right foot: Normal capillary refill. Normal pulse. Legs: Neurological: Mental Status: She is alert. I have reviewed the patient s records from [facility] including diagnostic testing performed, their discharge medications, and my assessment and plan with the patient and any family members present at todays visit. Labs: (05/12) - CBC: - WBC: 14 10 / L (elevated) - Serum Electrolytes: - Sodium: 129 mmol/L (hyponatremia) - Remainder unremarkable Assessment/Plan 1. Cellulitis of right lower extremity (L03.115) Cat bite of right lower leg, initial encounter (S81.541A) Initial cat bite on right lower leg led to cellulitis, treated with Augmentin but caused nausea andvomiting. Hospitalized for observation with WBC count of 14 and sodium 129. Discharged on cefdinir 300 mg PO BID and metronidazole 250 mg TID for 5 days. Current exam shows improvement in swelling, but a blistered area with drainage remains. No adverse reactions to current antibiotics. - Extended cefdinir 300 mg PO BID and metronidazole 250 mg TID for an additional 5 days. - Recommended warm compresses 2-3 times daily, using Epsom salt in warm water to aid drainage and reduce inflammation. - Advised elevating the leg when sitting to improve circulation. - Scheduled follow-up appointment on Wednesday to reassess the wound. - Instructed to monitor for fever, chills, red streaking, or worsening symptoms and to return to the ER if these occur. - Prescriptions sent to [facility] pharmacy. Prescription instructions reviewed with patient as applicable. Potential red flag symptoms discussed with the patient. Reviewed appropriate action plan to take if red flag symptoms occur. Patient agreeable to treatment plan. Sandra Coombs APRN.CNP documented in this encounterProm[facility] Instructions* Patient Instructions* Sandra Coombs APRN.CNP - 05/23/2025 3:13 PM EDT We discussed your follow-up care for the cat bite on your right leg: - Your antibiotics (Cefdinir 300 mg twice daily and Metronidazole 250 mg three times daily) have been extended for an additional 5 days. Please continue taking them as prescribed. These have been sent to your preferred pharmacy, [facility]. - Begin using warm compresses on the affected area 2-3 times daily to help with swelling and drainage. You may soak a washcloth in warm water with dissolved Epsom salts and apply it to the area. Re-warm the washcloth as needed. - When sitting, elevate your leg to improve blood flow and reduce swelling. For example, you can place your leg on a chair while sitting at the kitchen table. - If the wound is seeping, you may use a Band-Aid or place a towel underneath to manage drainage. We discussed signs to monitor for infection: - If you develop fever, chills, flu-like symptoms, red streaking near the wound, or if the swellingworsens, please return to the emergency room immediately. Follow-up: - Please return to the office on Wednesday for a re-evaluation of your leg. If you have any questions or concerns before your next visit, please contact our office. documented in this encounterPromed[facility]06-28-2025 Hospital Discharge instructionsAdditional Instructions Date of Dis[facility]: [facility] Phone: 1(683) 972-851006-28-2025 Discharge summary Author Benny Junior [facility] Note Date/Time May 12, 2025 10:[address] [facility] Medical Records Department [facility] [place] [address] [place] [address] Instructions for Home/Discharge Instructions 05/12/25 1032 MR#: [id number] Acct: [id number] Name: YANN ADAIR Rep #:[id number] : 1935 89 From: Benny Junior DO PCP: Dr. Fitz Walters MD Status:A DM IN Discharge Instructions Diet Discharge Diet: No restrictions DC O2, CPAP, BIPAP needs Home O2 Discharge instructions: No Dressing / Incision Discharge Activity: Return to Normal Activity Weight Bearing Status: Full weight bearing Follow Up Care Test Results: Test results from this visit will be discussed in further detail at your follow- up appointment, if applicable. Discharge Plan Admission Admit Date/Time: 05/10/25 19:18 Primary Reason for Your Visit: Cellulitis secondary to cat bite Attending Provider: Benny Junior Primary Care Provider: Fitz Walters Consulting Providers: Misty Blanco Discharge Orders/Prescriptions Prescriptions: New cefdinir 300 mg capsule 300 mg PO BID Qty: 10 0RF metronidazole 250 mg tablet 250 mg PO TID Qty: 15 0RF Continued aspirin [Adult Low Dose Aspirin] 81 mg tablet,delayed release (DR/EC) 81 mg PO DAILY atorvastatin 10 mg tablet 10 mg PO DAILY metformin 500 mg tablet 500 mg PO BID ferrous sulfate 27 mg iron tablet 65 mg PO DAILY losartan 25 mg tablet 25 mg PO DAILY methotrexate sodium 2.5 mg tablet 15 mg PO QWEEK Rx Instructions: PT TAKES ON WEDNESDAYS folic acid 1 mg tablet 2 mg PO DAILY mirabegron [Myrbetriq] 25 mg tablet extended release 24 hr 25 mg PO QHS Qty: 30 6RF dorzolamide-timolol 22.3-6.8 mg/mL drops 1 drp ophthalmic (eye) BID [place] 0.02-0.005 % drops 1 drp ophthalmic (eye) QHS cyanocobalamin (vitamin B-12) 1,000 mcg tablet 1,000 mcg PO DAILY Qty: 30 10RF Discontinued amoxicillin-pot clavulanate 875-125 mg tablet 1 tab PO BID Patient Comments: PT TOOK TODAY, BUT THIS MADE HER SICK. Referrals / Follow Up: Fitz Walters MD [Primary Care Provider] - In 1 Week Disposition Disposition (needs filled in before D/C Order can be placed): Home, Self Care 05/12/25 1036<Electronically signed by Benny Junior DO>Benny Junior DO CC: Dr. Misty Blanco MD; Dr. Fitz Walters MD ~ Signed [facility] Work Phone: 1(196) 271-351006-28-2025 Discharge summary [facility] Medical Records Department [address] [place] [address] Instructions for Home/Discharge Instructions 05/12/25 1032 MR#: [id number] Acct: [id number] Name: YANN ADAIR Rep #:[id number] : 1935 89 From: Benny Junior DO PCP: Dr. Fitz Walters MD Status:A DM IN Discharge Instructions Diet Discharge Diet: No restrictions DC O2, CPAP, BIPAP needs Home O2 Discharge instructions: No Dressing / Incision Discharge Activity: Return to Normal Activity Weight Bearing Status: Full weight bearing Follow Up Care Test Results: Test results from this visit will be discussed in further detail at your follow- up appointment, if applicable. Discharge Plan Admission Admit Date/Time: 05/10/25 19:18 Primary Reason for Your Visit: Cellulitis secondary to cat bite Attending Provider: Benny Junior Primary Care Provider: Fitz Walters Consulting Providers: Misty Blanco Discharge Orders/Prescriptions Prescriptions: New cefdinir 300 mg capsule 300 mg PO BID Qty: 10 0RF metronidazole 250 mg tablet 250 mg PO TID Qty: 15 0RF Continued aspirin [Adult Low Dose Aspirin] 81 mg tablet,delayed release (DR/EC) 81 mg PO DAILY atorvastatin 10 mg tablet 10 mg PO DAILY metformin 500 mg tablet 500 mg PO BID ferrous sulfate 27 mg iron tablet 65 mg PO DAILY losartan 25 mg tablet 25 mg PO DAILY methotrexate sodium 2.5 mg tablet 15 mg PO QWEEK Rx Instructions: PT TAKES ON WEDNESDAYS folic acid 1 mg tablet 2 mg PO DAILY mirabegron [Myrbetriq] 25 mg tablet extended release 24 hr 25 mg PO QHS Qty: 30 6RF dorzolamide-timolol 22.3-6.8 mg/mL drops 1 drp ophthalmic (eye) BID [place] 0.02-0.005 % drops 1 drp ophthalmic (eye) QHS cyanocobalamin (vitamin B-12) 1,000 mcg tablet 1,000 mcg PO DAILY Qty: 30 10RF Discontinued amoxicillin-pot clavulanate 875-125 mg tablet 1 tab PO BID Patient Comments: PT TOOK TODAY, BUT THIS MADE HER SICK. Referrals / Follow Up: Fitz Walters MD [Primary Care Provider] - In 1 Week Disposition Disposition (needs filled in before D/C Order can be placed): Home, Self Care 05/12/25 1036Benny Junior DO CC: Dr. Misty Blanco MD; Dr. Fitz Walters MD ~ Signed [facility]06-28-[facility] Progress note Author Benny [facility] Note Date/Time May 11, 2025 6:[address] [facility] Medical Records Department [address] [facility] [place] [address] Progress Note - Hospitalist 05/11/251813 MR#: [id number] Acct: [id number] Name: YANN ADAIR Rep #:[id number] : 1935 89 From: Benny Junior DO PCP: Dr. Fitz Walters MD Status:A DM IN [id number] Reason for Visit Reason for Visit: Diagnoses Cellulitis, unspecified (05/10/25) Local infection of the skin and subcutaneous tissue, unspecified (05/10/25) Open bite, right lower leg, initial encounter (05/10/25) Bitten by cat, initial encounter (05/10/25) Subjective Subjective Patient was seen and examined today, her right leg has faint redness today and it is warm to the touch, patient does not appear to be in any distress. Objective Data Objective Data Vital Signs: Vital Signs Temp Pulse Resp BP Pulse Ox O2 Del Method 98.4 F 79 18 127/65 H 95 Room Air 05/11/25 14:49 05/11/25 14:49 05/11/25 14:49 05/11/25 14:49 05/11/25 14:49 05/11/25 14:49 Oxygen Delivery Method Room Air Weight: 65.317 kg Body Mass Index (BMI) 23.9 Intake & Output: Intake and Output for Last 24 Hours 05/09/25 05/10/25 05/11/25 23:59 23:59 23:59 Intake Total 50 50 901.67 / 901.67 Output Total 1000 / 1000 Balance 50 / 50 -98.33 / -98.33 Lab / Micro Data 05/11/25 05:29 05/11/25 05:29 Labs: Laboratory Results - last 24 hr 05/10/25 17:45: WBC 14.9 H, RBC 3.82 L, Hgb 12.1, Hct 37.4, MCV 97.9, MCH 31.7, MCHC 32.4, RDW Std Deviation 48.8 H, RDW Coeff of Swapnil 13.9, Plt Count 226, MPV 10.1, Immature Gran % (Auto) 0.600, Neut % (Auto) 88.8 H, Lymph % (Auto) 5.0 L, Wells % (Auto) 5.4, Eos % (Auto) 0.1, Baso % (Auto) 0.1, Absolute Neuts (auto) 13.2 H, Absolute Lymphs (auto) 0.74 L, Nucleated RBC % 0, Sodium 129 L, Potassium 4.2, Chloride 94 L, Carbon Dioxide 21.6, Anion Gap 14, BUN 20 H, Creatinine 0.89, Estim Creat Clear Calc 37.00 L, Est GFR (MDRD) Non-Af 62, BUN/Creatinine Ratio 22.7 H, Glucose 201 H, Calcium 10.0, Total Bilirubin 0.71, AST 19, ALT 14, Alkaline Phosphatase 74, C-React Prot Ext Range 163.00 H, Total Protein 7.5, Albumin 4.2, Globulin 3.3, Albumin/Globulin Ratio 1.3 05/10/25 18:20: Lactic Acid 1.9 05/10/25 19:25: Urine Color Straw 05/10/25 19:25: Urine Color Cancelled, Urine Clarity Cloudy 05/10/25 19:25: Urine Clarity Cancelled, Urine pH 6.5 05/10/25 19:25: Urine pH Cancelled, Ur Specific [place] 1.015 05/10/25 19:25: Ur Specific [place] Cancelled, U Specif Grav (Refrac) Cancelled,Urine Protein 30 H 05/10/25 19:25: Urine Protein Cancelled, Urine Glucose (UA) 50 H 05/10/25 19:25: Urine Glucose (UA) Cancelled, Urine Ketones 15 H 05/10/25 19:25: Urine Ketones Cancelled, Urine Occult Blood 150 H 05/10/25 19:25: Urine Occult Blood Cancelled, Urine Nitrite Negative 05/10/25 19:25: Urine Nitrite Cancelled, Urine Bilirubin Negative 05/10/25 19:25: Urine Bilirubin Cancelled, Urine Urobilinogen 1 H 05/10/25 19:25: Urine Urobilinogen Cancelled, Ur Leukocyte Esterase 500 H 05/10/25 19:25: Ur Leukocyte Esterase Cancelled, Urine RBC 0-5 SEEN 05/10/25 19:25: Urine RBC Cancelled, Urine WBC 25-50 SEEN 05/10/25 19:25: Urine WBC Cancelled, Ur Squamous Epith Cells 0-5 SEEN 05/10/25 19:25: Ur Squamous Epith Cells Cancelled, Ur Transition Epith Cell Cancelled, Ur Renal Epithelial Cell Cancelled, Calcium Oxalate Crystal Cancelled, Uric Acid Crystals Cancelled, Triple Phos Crystals Cancelled, Other Crystals Cancelled, Amorphous Sediment 1+ 05/10/25 19:25: Amorphous Sediment Cancelled, Urine Bacteria 1+ 05/10/25 19:25: Urine Bacteria Cancelled, Hyaline Casts Cancelled, Fine GranularCasts Cancelled, Coarse Granular Casts Cancelled, Waxy Casts Cancelled, RBC Casts Cancelled, WBC Casts Cancelled, Urine Mucus 0 SEEN 05/10/25 19:25: Urine Mucus Cancelled, Urine Trichomonas Cancelled, Urine Yeast Cancelled 05/11/25 00:54: POC Glucose 209 H 05/11/25 05:29: WBC 9.2, RBC 3.49 L, Hgb 10.9 L, Hct 34.4 L, MCV 98.6, MCH 31.2,MCHC 31.7 L, RDW Std Deviation 48.8 H, RDW Coeff of Swapnil 13.9, Plt Count 201, MPV10.2, Immature Gran % (Auto) 0.500, Neut % (Auto) 81.3 H, Lymph % (Auto) 12.1 L,Wells % (Auto) 5.4, Eos % (Auto) 0.5, Baso % (Auto) 0.2, Absolute Neuts (auto) 7.5, Absolute Lymphs (auto) 1.12, Nucleated RBC % 0, Sodium 135, Potassium 3.8, Chloride 101, Carbon Dioxide 22.7, Anion Gap 11, BUN 15, Creatinine 0.71, Estim Creat Clear Calc 42.90 L, Est GFR (MDRD) Non-Af 81, BUN/Creatinine Ratio 20.9 H,Glucose 134 H, Calcium 9.6, Total Bilirubin 0.66, AST 18, ALT 13, Alkaline Phosphatase 75, Total Protein 6.8, Albumin 3.7, Globulin 3.1, Albumin/Globulin Ratio 1.2 05/11/25 06:21: POC Glucose 125 H 05/11/25 11:35: POC Glucose 157 H 05/11/25 16:27: POC Glucose 116 H Radiography Diagnostic Testing: Radiology Impression Chest X-Ray 05/10/25 18:45 IMPRESSION: No acute cardiopulmonary process. Reading Location: [facility] Rhythm Strip Rhythm Strip: Sinus Rhythm Rate: 86 Ectopy: None Physical Exam Const alert and no apparent distress General Appearance: cooperative, well kempt and well developed Orientation / Consciousness: awake, oriented to person and oriented to place HEENT normocephalic, head/scalp atraumatic and moist oral mucous membranes Eyes PERRL, EOMs intact bilaterally and conjunctivae normal Neck supple, no JVD, thyroid normal and no carotid bruits General: trachea midline Resp normal respiratory effort, no retractions, no use of accessory muscles and clearto auscultation bilaterally Auscultation: Negative for rales, rhonchi or wheezes Cardio regular rate, regular rhythm, S1 normal heart sound, S2 normal heart sound, no murmurs, no rub and no gallops GI normal to inspection, nondistended, normoactive bowel sounds, soft to palpation,non-tender and non-distended Extremity no clubbing, cyanosis or edema Skin Skin Narrative: There is redness noted over the patient's right leg in the area of the right knee and just below the right knee and above the right knee. This area is warm to the touch also Neuro CN's II-XII intact bilaterally, moves all extremities, no focal motor deficits and no sensory deficits noted Sensorium / Orientation: awake, alert, oriented to person and oriented to place Speech: speech normal Psych affect normal Assessment & Plan Assessment/Plan (1) Cat bite of right lower leg with infection: PLAN: Plan 1. Cellulitis of the right leg secondary to cat bite-this area appears improvedover the appearance on admission according to what was written in the medical record. Continue Unasyn #2 nausea and vomiting-I suspect this may have been due to the Augmentin she wasgiven for her cat bite infection, patient does not appear nauseous at this time,she is on an 1800-calorie ADA diet #3 chronic cognitive impairment-complicates care, management, recovery, and prognosis #4 type 2 diabetes-patient is on sliding scale insulin and fingerstick blood sugars. #5 hyponatremia-corrected at this time #6 essential hypertension-patient is on losartan Total clinical time spent by myself addressing the patient's medical issues, reviewing all of her data, and collaborating with the patient's care team: 35 minutes Charges/Coding Visit Charges Inpatient E&M: 24660 Subs Hosp L2 05/11/25 1820 <Electronically signed by Benny Junior DO> Cosigner Signature (if applicable): CC: ~ Signed [facility] Work Phone: 1(554) 246-244906-27-[address] [facility] Medical Records Department [address] [place] [address] Progress Note - Hospitalist 05/11/254 MR#: [id number] Acct: [id number] Name: YANN ADAIR Rep #:[id number] : 1935 89 From: Benny Junior DO PCP: Dr. Fitz Walters MD Status:A DM IN Location: [facility] [id number] Reason for Visit Reason for Visit: Diagnoses Cellulitis, unspecified (05/10/25) Local infection of the skin and subcutaneous tissue, unspecified (05/10/25) Open bite, right lower leg, initial encounter (05/10/25) Bitten by cat, initial encounter (05/10/25) Subjective Subjective Patient was seen and examined today, her right leg has faint redness today and it is warm to the touch, patient does not appear to be in any distress. Objective Data Objective Data Vital Signs: Vital Signs Temp Pulse Resp BP Pulse Ox O2 Del Method 98.4 F 79 18 127/65 H 95 Room Air 05/11/25 14:49 05/11/25 14:49 05/11/25 14:49 05/11/25 14:49 05/11/25 14:49 05/11/25 14:49 Oxygen Delivery Method Room Air Weight: 65.317 kg Body Mass Index (BMI) 23.9 Intake & Output: Intake and Output for Last 24 Hours 05/09/25 05/10/25 05/11/25 23:59 23:59 23:59 Intake Total 50 / 50 901.67 / 901.67 Output Total 1000 / 1000 Balance 50 / 50 -98.33 / -98.33 Lab / Micro Data 05/11/25 05:29 05/11/25 05:29 Labs: Laboratory Results - last 24 hr 05/10/25 17:45: WBC 14.9 H, RBC 3.82 L, Hgb 12.1, Hct 37.4, MCV 97.9, MCH 31.7, MCHC 32.4, RDW Std Deviation 48.8 H, RDW Coeff of Swapnil 13.9, Plt Count 226, MPV 10.1, Immature Gran % (Auto) 0.600, Neut% (Auto) 88.8 H, Lymph % (Auto) 5.0 L, Wells % (Auto) 5.4, Eos % (Auto) 0.1, Baso % (Auto) 0.1, Absolute Neuts (auto) 13.2 H, Absolute Lymphs (auto) 0.74 L, Nucleated RBC % 0, Sodium 129 L, Potassium 4.2, Chloride 94 L, Carbon Dioxide 21.6, Anion Gap 14, BUN 20 H, Creatinine 0.89, Estim Creat Clear Calc 37.00 L, Est GFR (MDRD) Non-Af 62, BUN/Creatinine Ratio 22.7 H, Glucose 201 H, Calcium 10.0, Total Bilirubin 0.71, AST 19, ALT 14, Alkaline Phosphatase 74, C-React Prot Ext Range 163.00 H, Total Protein 7.5, Albumin 4.2, Globulin 3.3, Albumin/Globulin Ratio 1.3 05/10/25 18:20: Lactic Acid 1.9 05/10/25 19:25: Urine Color Straw 05/10/25 19:25: Urine Color Cancelled, Urine Clarity Cloudy 05/10/25 19:25: Urine Clarity Cancelled, Urine pH 6.5 05/10/25 19:25: Urine pH Cancelled, Ur Specific [place] 1.015 05/10/25 19:25: Ur Specific [place] Cancelled, U Specif Grav (Refrac) Cancelled,Urine Protein 30 H 05/10/25 19:25: Urine Protein Cancelled, Urine Glucose (UA) 50 H 05/10/25 19:25: Urine Glucose (UA) Cancelled, Urine Ketones 15 H 05/10/25 19:25: Urine Ketones Cancelled, Urine Occult Blood 150 H 05/10/25 19:25: Urine Occult Blood Cancelled, Urine Nitrite Negative 05/10/25 19:25: Urine Nitrite Cancelled, Urine Bilirubin Negative 05/10/25 19:25: Urine Bilirubin Cancelled, Urine Urobilinogen 1 H 05/10/25 19:25: Urine Urobilinogen Cancelled, Ur Leukocyte Esterase 500 H 05/10/25 19:25: Ur Leukocyte Esterase Cancelled, Urine RBC 0-5 SEEN 05/10/25 19:25: Urine RBC Cancelled, Urine WBC 25-50 SEEN 05/10/25 19:25: Urine WBC Cancelled, Ur Squamous Epith Cells 0-5 SEEN 05/10/25 19:25: Ur Squamous Epith Cells Cancelled, Ur Transition Epith Cell Cancelled, Ur Renal Epithelial Cell Cancelled, Calcium Oxalate Crystal Cancelled, Uric Acid Crystals Cancelled, Triple PhosCrystals Cancelled, Other Crystals Cancelled, Amorphous Sediment 1+ 05/10/25 19:25: Amorphous Sediment Cancelled, Urine Bacteria 1+ 05/10/25 19:25: Urine Bacteria Cancelled, Hyaline Casts Cancelled, Fine GranularCasts Cancelled, Coarse Granular Casts Cancelled, Waxy Casts Cancelled, RBC Casts Cancelled, WBC Casts Cancelled, UrineMucus 0 SEEN 05/10/25 19:25: Urine Mucus Cancelled, Urine Trichomonas Cancelled, Urine Yeast Cancelled 05/11/25 00:54: POC Glucose 209 H 05/11/25 05:29: WBC 9.2, RBC 3.49 L, Hgb 10.9 L, Hct 34.4 L, MCV 98.6, MCH 31.2,MCHC 31.7 L, RDW Std Deviation 48.8 H, RDW Coeff of Swapnil 13.9, Plt Count 201, MPV10.2, Immature Gran % (Auto) 0.500, Neut % (Auto) 81.3 H, Lymph % (Auto) 12.1 L,Wells % (Auto) 5.4, Eos % (Auto) 0.5, Baso % (Auto) 0.2, Absolute Neuts (auto) 7.5, Absolute Lymphs (auto) 1.12, Nucleated RBC % 0, Sodium 135, Potassium 3.8, Chloride 101, Carbon Dioxide 22.7, Anion Gap 11, BUN 15, Creatinine 0.71, Estim Creat Clear Calc 42.90 L, Est GFR (MDRD) Non-Af 81, BUN/Creatinine Ratio 20.9 H,Glucose 134 H, Calcium 9.6, Total Bilirubin 0.66, AST 18, ALT 13, Alkaline Phosphatase 75, Total Protein 6.8, Albumin 3.7, Globulin 3.1, Albumin/Globulin Ratio 1.2 05/11/25 06:21: POC Glucose 125 H 05/11/25 11:35: POC Glucose 157 H 05/11/25 16:27: POC Glucose 116 H Radiography Diagnostic Testing: Radiology Impression Chest X-Ray 05/10/25 18:45 IMPRESSION: No acute cardiopulmonary process. Reading Location: [facility] Rhythm Strip Rhythm Strip: Sinus Rhythm Rate: 86 Ectopy: None Physical Exam Const alert and no apparent distress General Appearance: cooperative, well kempt and well developed Orientation / Consciousness: awake, oriented to person and oriented to place HEENT normocephalic, head/scalp atraumatic and moist oral mucous membranes Eyes PERRL, EOMs intact bilaterally and conjunctivae normal Neck supple, no JVD, thyroid normal and no carotid bruits General: trachea midline Resp normal respiratory effort, no retractions, no use of accessory muscles and clearto auscultation bilaterally Auscultation: Negative for rales, rhonchi or wheezes Cardio regular rate, regular rhythm, S1 normal heart sound, S2 normal heart sound, no murmurs, no rub and no gallops GI normal to inspection, nondistended, normoactive bowel sounds, soft to palpation,non-tender and non-distended Extremity no clubbing, cyanosis or edema Skin Skin Narrative: There is redness noted over the patient's right leg in the area of the right knee and just below the right knee and above the right knee. This area is warm to the touch also Neuro CN's II-XII intact bilaterally, moves all extremities, no focal motor deficits and no sensory deficits noted Sensorium / Orientation: awake, alert, oriented to person and oriented to place Speech: speech normal Psych affect normal Assessment & Plan Assessment/Plan (1) Cat bite of right lower leg with infection: PLAN: Plan 1. Cellulitis of the right leg secondary to cat bite-this area appears improvedover the appearance on admission according to what was written in the medical record. Continue Unasyn #2 nausea and vomiting-I suspect this may have been due to the Augmentin she wasgiven for her cat bite infection, patient does not appear nauseous at this time,she is on an 1800-calorie ADA diet #3 chronic cognitive impairment-complicates care, management, recovery, and prognosis #4 type 2 diabetes-patient is on sliding scale insulin and fingerstick blood sugars. #5 hyponatremia-corrected at this time #6 essential hypertension-patient is on losartan Total clinical time spent by myself addressing the patient's medical issues, reviewing all of her data, and collaborating with the patient's care team: 35 minutes Charges/Coding Visit Charges Inpatient E&M: 50921 Subs Hosp L2 05/11/25 1820 Cosigner Signature (if applicable): CC: ~ Signed [facility]06-26-2025 History and physical note Author Misty Blanco [facility] Note Date/Time May 10, 2025 8:04 pm [facility] Medical Records Department [address] [place] [address] H&P Exam - Hospitalist 05/10/251916 MR#: [id number] Acct: [id number] Name: YANN ADAIR Rep #:[id number] : 1935 89 From: Misty Blanco MD PCP: Dr. Fitz Walters MD Status:R EG ER Location: ED HPI - General General Date of Service: 05/10/25 Chief Complaint: Worsening cat bite appearance, N/V HPI Narrative The patient is an 89 y/o F w/ PMHx: Glaucoma of unclear type, IBS, HTN, HLD, Diabetes mellitus type II with chronic neuropathy, Chronic Fe deficiency anemia,RA, Former tobacco use, Chronic cognitive impairment who presents to the [facility] ED on 05/10/25 with history of fatigue, malaise, recent onset of nausea and emesis following a cat bite that occurred the day prior noted to be an outdoor cat and unfortunately she had stepped on its tail prompting her to scratch and bite her to the right calf with urgent care evaluation placed on Augmentin with administration of 2 doses however she since then she has been having issues withnausea and emesis unable to even to keep her medications down with worsening redness to the right calf but no streaking and no fevers or chills eventually prompting ED evaluation. Patient had also of note in her kitchen and became very weak and fatigued when she was throwing up lowering her self to the ground with no loss of consciousness or head trauma. She notes the RLE has become more uncomfortable primarily with ambulation, aching, 3-4/10 in severity with notableincreased swelling. Workup in the ED included T98.5, heart rate 96, BP 108/44, respiratory rate 16, 99% on room air with most recent repeat vitals T90.5, heart90, BP 120/61, respiratory rate 16, 100% on room air, CBC with WBC 14.9, hemoglobin 12.1, platelet 226 with left shift and lymphopenia, CMP with sodium 129, chloride 94, BUN/creat 20/0.9, GFR 62, glucose 201, lactic acid 1.9, hepatic profile not marked appearing, CRP 163, chest x-ray with no acute cardiopulmonary findings. In the ED patient ministered maintenance IV fluids, Unasyn 1500 g IV x 1, tetanus update. [facility] Medical History (Updated 05/10/25 @ 19:[address] Misty Blanco MD) Rheumatoid arthritis Former tobacco use HTN (hypertension) HLD (hyperlipidemia) Irritable bowel syndrome (IBS) Hives High triglycerides Migraines Glaucoma Diabetes mellitus Cataracts, bilateral Arthritis Home Medications ?Medication ?Instructions ?Recorded ?Last Taken ?Type aspirin 81 mg tablet,delayed 81 mg PO DAILY 06/01/22 0 05/10/25 History release (Adult Low Dose Aspirin) atorvastatin 10 mg tablet 10 mg PO DAILY 06/01/22/05/09 History metformin 500 mg tablet 500 mg PO BID 06/01/2205/10 History ferrous sulfate 27 mg iron tablet 65 mg PO DAILY 10/2905/10/25 History folic acid 1 mg tablet 2 mg PO DAILY 10/29/2205/10 History losartan 25 mg tablet 25 mg PO DAILY 10/29/22/05/09 History methotrexate sodium 2.5 mg tablet 15 mg PO QWEEK 10/2905/09/25 History cyanocobalamin (vitamin B-12) 1,000 mcg PO DAILY #30 t abs 06/08/24 05/10/25 Rx 1,000 mcg tablet mirabegron 25 mg tablet,extended 25 mg PO QHS #30 tabs 04/17/25 05/09/25 Rx release 24 hr (Myrbetriq) amoxicillin 875 mg-potassium 1 tab PO BID 05/10/25 History clavulanate 125 mg tablet dorzolamide 22.3 mg-timolol 6.8 1 drp ophthalmic (eye) BID 05/10/25 05/10/25 History mg/mL eye drops netarsudil 0.02 %-latanoprost 1 drp ophthalmic (eye) Q HS 05/10/25 05/09/25 History 0.005 % eye drops (Rocklatan) Allergy/AdvReac Type Severity Reaction Status Date / Time Sulfa (Sulfonamide AdvReac Intermediate Hives Verified 05/10/25 17:38 Antibiotics) Family History (Updated 05/10/25 @ 20:[address] Misty Blanco MD) Father Gallstones BPH (benign prostatic hyperplasia) Mother Alzheimer dementia Surgical History (Updated 05/10/25 @ 19:[address] Misty Blanco MD) History of bilateral tubal ligation History of bladder repair surgery Social History (Updated 05/10/25 @ 19:[address] Misty Blanco MD) household members: family Smoking Status: Former smoker how long ago did patient quit smoking: Smoked 40 years, started 19 until quit, ~ 1 ppd. alcohol intake: never substance use type: does not use caffeine: Yes Type: coffee Number of servings: 1 what type of physical activity do you participate in: none rancho/temple: Jew seatbelt use: always ROS ROS Narrative Admission Review of Systems: CONSTITUTIONAL: No weight loss, fever, chills, + weakness or fatigue. HEENT: Eyes: No visual loss, blurred vision, double vision or yellow sclerae. Ears, Nose, Throat: No hearing loss, sneezing, congestion, runny nose or sore throat. SKIN: No rash or itching, lesions except + significant right lower extremity catbites with erythema with no induration or drainage, associated right lower extremity swelling, occasional stage ecchymoses, abrasion. CARDIOVASCULAR: No chest pain, chest pressure or chest discomfort, palpitations,edema, orthopnea, syncopal events. RESPIRATORY: No shortness of breath, cough or sputum, wheezing, hemoptysis. GASTROINTESTINAL: + anorexia, nausea, vomiting, chronic IBS history. No persistent diarrhea, abdominal pain, melena, BRBPR. GENITOURINARY: No dysuria, frequency, urgency or retention. NEUROLOGICAL: + General debility/weakness. No headache, dizziness, syncope, paralysis, ataxia, numbness or tingling in the extremities, focal weakness, change in bowel or bladder control, seizure. MUSCULOSKELETAL: + muscle, back pain, joint pain or stiffness. HEMATOLOGIC: + Chronic anemia, easy bleeding/bruising. LYMPHATICS: No enlarged nodes. No history of splenectomy. PSYCHIATRIC: No history of depression or anxiety. ENDOCRINOLOGIC: No reports of sweating, cold or heat intolerance. No polyuria orpolydipsia. ALLERGIES: + History of hives. Vital Signs Vital Signs Vital Signs: 05/10/25 17:37 05/10/25 17:43 05/10/25 18:43 Temperature 98.5 F 98.5 F 98.5 F Temperature Source Oral Oral Oral Pulse Rate 96 95 90 Respiratory Rate 16 19 H 16 Blood Pressure 108/44 L 108/44 L 128/61 H Blood Pressure Mean 65 65 83 Pulse Ox 99 96 100 Oxygen Delivery Method Room Air Room Air Room Air Weight Weight: 139 lb Body Mass Index (BMI) 23.8 Physical Exam Narrative Physical Examination: General: Awake, alert, oriented x 3, significantly hard of hearing but is longerstanding closely patient appropriately understanding, currently given she is offher right lower extremity and not ambulating denies any severe pain. Skin: Normal color, normal turgor, no icterus, no cyanosis except notable right lower extremity various cat bites with no induration or specific drainage but notable erythema around the bites as well as significant swelling primarily to the right foot/ankle up to the proximal calf, occasional very stage ecchymoses, abrasion. HEENT: AT/NC, EOMI, PERRLA, mildly dry MM, no carotid bruits or JVD noted. Lungs: Mildly diminished, greater bases, poor effort, no rales, ronchi or wheezing. Heart: Regular rate and rhythm; no gallop, rub audible. Abdomen: Soft, NTTP, ND, mildly hyperactive BS, no HSM. Extremities: No cyanosis, no clubbing, noted right lower extremity swelling withassociated cat bite, see skin. Neurological: Patient awake, alert, oriented as noted, hard of hearing, cognitive function decreased baseline with underlying cognitive impairment but currently baseline intact per family; pupils equally reactive to light and accommodation, cranial nerves grossly normal, moving all 4 extremities, no focaldeficits, strength moderately to severely globally decreased Psychiatric: Affect appears fatigued otherwise normal, no acute evidence of depressive or anxiety feelings. Results Lab / Micro Data 05/10/25 17:45 05/10/25 17:45 Labs: Laboratory Results - last 24 hr 05/10/25 17:45: WBC 14.9 H, RBC 3.82 L, Hgb 12.1, Hct 37.4, MCV 97.9, MCH 31.7, MCHC 32.4, RDW Std Deviation 48.8 H, RDW Coeff of Swapnil 13.9, Plt Count 226, MPV 10.1, Immature Gran % (Auto) 0.600, Neut % (Auto) 88.8 H, Lymph % (Auto) 5.0 L, Wells % (Auto) 5.4, Eos % (Auto) 0.1, Baso % (Auto) 0.1, Absolute Neuts (auto) 13.2 H, Absolute Lymphs (auto) 0.74 L, Nucleated RBC % 0, Sodium 129 L, Potassium 4.2, Chloride 94 L, Carbon Dioxide 21.6, Anion Gap 14, BUN 20 H, Creatinine 0.89, Estim Creat Clear Calc 37.00 L, Est GFR (MDRD) Non-Af 62, BUN/Creatinine Ratio 22.7 H, Glucose 201 H, Calcium 10.0, Total Bilirubin 0.71, AST 19, ALT 14, Alkaline Phosphatase 74, C-React Prot Ext Range 163.00 H, Total Protein 7.5, Albumin 4.2, Globulin 3.3, Albumin/Globulin Ratio 1.3 05/10/25 18:20: Lactic Acid 1.9 Rhythm Strip Rhythm Strip: Sinus Rhythm Rate: 86 Ectopy: None Imaging Radiology Impression Chest X-Ray 05/10/25 18:45 IMPRESSION: No acute cardiopulmonary process. Reading Location: [facility] Assessment & Plan Assessment/Plan (1) Cellulitis: (2) Cat bite of right lower leg with infection: PLAN: Plan The patient is an 89 y/o F w/ PMHx: Glaucoma of unclear type, IBS, HTN, HLD, Diabetes mellitus type II with chronic neuropathy, Chronic Fe deficiency anemia,RA, Former tobacco use, Chronic cognitive impairment who presents to the [facility] ED on 05/10/25 with history of fatigue, malaise, recent onset of nausea and emesis following a cat bite that occurred the day prior noted to be an outdoor cat and unfortunately she had stepped on its tail prompting her to scratch and bite her to the right calf with urgent care evaluation placed on Augmentin with administration of 2 doses however she since then she has been having issues withnausea and emesis unable to even to keep her medications down with worsening redness to the right calf but no streaking and no fevers or chills eventually prompting ED evaluation. #1. Intractable nausea, emesis, debility with adult failure to thrive secondaryto acutely infected feline bite with right lower extremity cellulitis, several Bite wounds with no obvious current abscess, failed outpatient antibiotic therapies: Will admit to [facility] given stable vital signs, maintain on IV Unasyn, wound RN consulted, continue dry dressings to the region, plan repeat CBC in AM,continue affected extremity elevation above heart when seated and in bed, monitor erythema outline with VS checks, low threshold to obtain duplex US to assure no DVT concurrently if persistent swelling despite treatment of infectionas noted. Will maintain on clear liquids with Accu-Cheks every 6 hours until patient has resolution of nausea and there is no episodes of emesis with IV PPI. PT/OT/case management consulted for discharge planning. #2. Acute hyponatremia, hypochloremia, suspected hypovolemic presentation givenGI losses as noted associate with #1: Admission sodium 129, chloride 94, will continue judicious hydration and repeat CMP in AM. #3. Possible Chronic Kidney Disease Stage III, unclear subtype however no comparisons thus uncertain: Admission BUN/Cr 20/0.89, GFR 37, baseline renal function unknown, will repeat CMP in a.m. to further elucidate. #4. Chronic cognitive impairments: Possibly confounded also by significant hearing deficits, living with family and per their report doing rather well until current presentation, will maintain on fall precautions, PT/OT/case management consult for discharge planning. #5. #2. Diabetes mellitus type II with chronic neuropathy: Hold oral home regimen, given intractable nausea and emesis with #1 will temporarily maintain on clears, while on clears will maintain every 6 hours accu checks w/ ISS. Willtransition diet once clinically improving. #6. Rheumatoid arthritis: Following with rheumatology in [facility], on methotrexate with folic acid supplementation, will temporarily hold while inpatient, encourage continued follow-up outpatient with rheumatology as previously arranged. #7. Chronic iron deficiency anemia: Admission CBC with hemoglobin 12.1, MCV 97.9, baseline hemoglobin primarily 11-12, stable, will continue to trend CBC, continue iron supplementation. #8. Glaucoma, unclear type: Will continue patient home eyedrop regimen. #9. Hypertension: Continue home regimen including losartan with hold parametersas needed, PRN hydralazine. #10. Hyperlipidemia: Will continue patient on statin therapy. #11. Former tobacco use: Encourage continued tobacco cessation. #12. DVT prophylaxis: Lovenox. #13. CODE status: Patient MATTIE is her daughter who is present and living will is currently in place. Discussed CODE status at length including difference between FULL code, DNR-CCA and DNR-CC status. Following discussions about the differences in these status, requested DNR CCA with allowance of short-term intubation. Discussed several different scenarios to assure DNR-CCA allowance of short-term intubation status and confirmed. Advanced Care Planning Face to Face Time: 16 minutes. Charges/Coding Visit Charges Inpatient E&M: 44948 Init Hosp L3 Procedures Hospitalists Procedures: 55559 Advncd Care Plan 30 Min 05/10/252003 <Electronically signed by Misty Blanco MD> Cosigner Signature (if applicable): CC: Dr. Misty Blanco MD; Dr. Fitz Walters MD~ Signed [facility] Work Phone: [phone] History and physical note Author Misty Blanco [facility] Note Date/Time May 10, 2025 8:[address] [facility] Medical Records Department [address] [place] [address] H&P Exam - Hospitalist 05/10/251916 MR#: [id number] Acct: [id number] Name: YANN ADAIR Rep #:[id number] : 1935 89 From: Misty Blanco MD PCP: Dr. Fitz Walters MD Status:R EG ER Location: ED HPI - General General Date of Service: 05/10/25 Chief Complaint: Worsening cat bite appearance, N/V HPI Narrative The patient is an 89 y/o F w/ PMHx: Glaucoma of unclear type, IBS, HTN, HLD, Diabetes mellitus type II with chronic neuropathy, Chronic Fe deficiency anemia,RA, Former tobacco use, Chronic cognitive impairment who presents to the [facility] ED on 05/10/25 with history of fatigue, malaise, recent onset of nausea and emesis following a cat bite that occurred the day prior noted to be an outdoor cat and unfortunately she had stepped on its tail prompting her to scratch and bite her to the right calf with urgent care evaluation placed on Augmentin with administration of 2 doses however she since then she has been having issues withnausea and emesis unable to even to keep her medications down with worsening redness to the right calf but no streaking and no fevers or chills eventually prompting ED evaluation. Patient had also of note in her kitchen and became very weak and fatigued when she was throwing up lowering her self to the ground with no loss of consciousness or head trauma. She notes the RLE has become more uncomfortable primarily with ambulation, aching, 3-4/10 in severity with notableincreased swelling. Workup in the ED included T98.5, heart rate 96, BP 108/44, respiratory rate 16, 99% on room air with most recent repeat vitals T90.5, heart90, BP 120/61, respiratory rate 16, 100% on room air, CBC with WBC 14.9, hemoglobin 12.1, platelet 226 with left shift and lymphopenia, CMP with sodium 129, chloride 94, BUN/creat 20/0.9, GFR 62, glucose 201, lactic acid 1.9, hepatic profile not marked appearing, CRP 163, chest x-ray with no acute cardiopulmonary findings. In the ED patient ministered maintenance IV fluids, Unasyn 1500 g IV x 1, tetanus update. [facility] Medical History (Updated 05/10/25 @ 19:[address] Misty Blanco MD) Rheumatoid arthritis Former tobacco use HTN (hypertension) HLD (hyperlipidemia) Irritable bowel syndrome (IBS) Hives High triglycerides Migraines Glaucoma Diabetes mellitus Cataracts, bilateral Arthritis Home Medications ?Medication ?Instructions ?Recorded ?Last Taken ?Type aspirin 81 mg tablet,delayed 81 mg PO DAILY 06/01/22 0 05/10/25 History release (Adult Low Dose Aspirin) atorvastatin 10 mg tablet 10 mg PO DAILY 06/01/2204/16 History metformin 500 mg tablet 500 mg PO BID 06/01/2205/10 History ferrous sulfate 27 mg iron tablet 65 mg PO DAILY 10/2905/10/25 History folic acid 1 mg tablet 2 mg PO DAILY 10/29/2205/10 History losartan 25 mg tablet 25 mg PO DAILY 10/29/2204/16 History methotrexate sodium 2.5 mg tablet 15 mg PO QWEEK 10/2905/09/25 History cyanocobalamin (vitamin B-12) 1,000 mcg PO DAILY #30 t abs 06/08/24 05/10/25 Rx 1,000 mcg tablet mirabegron 25 mg tablet,extended 25 mg PO QHS #30 tabs 04/17/25 05/09/25 Rx release 24 hr (Myrbetriq) amoxicillin 875 mg-potassium 1 tab PO BID 05/10/25 History clavulanate 125 mg tablet dorzolamide 22.3 mg-timolol 6.8 1 drp ophthalmic (eye) BID 05/10/25 05/10/25 History mg/mL eye drops netarsudil 0.02 %-latanoprost 1 drp ophthalmic (eye) Q HS 05/10/25 05/09/25 History 0.005 % eye drops (Rocklatan) Allergy/AdvReac Type Severity Reaction Status Date / Time Sulfa (Sulfonamide AdvReac Intermediate Hives Verified 05/10/25 17:38 Antibiotics) Family History (Updated 05/10/25 @ 20:[address] Misty Blanco MD) Father Gallstones BPH (benign prostatic hyperplasia) Mother Alzheimer dementia Surgical History (Updated 05/10/25 @ 19:[address] Misty Blanco MD) History of bilateral tubal ligation History of bladder repair surgery Social History (Updated 05/10/25 @ 19:[address] Misty Blanco MD) household members: family Smoking Status: Former smoker how long ago did patient quit smoking: Smoked 40 years, started 19 until quit, ~ 1 ppd. alcohol intake: never substance use type: does not use caffeine: Yes Type: coffee Number of servings: 1 what type of physical activity do you participate in: none rancho/temple: Jew seatbelt use: always ROS ROS Narrative Admission Review of Systems: CONSTITUTIONAL: No weight loss, fever, chills, + weakness or fatigue. HEENT: Eyes: No visual loss, blurred vision, double vision or yellow sclerae. Ears, Nose, Throat: No hearing loss, sneezing, congestion, runny nose or sore throat. SKIN: No rash or itching, lesions except + significant right lower extremity catbites with erythema with no induration or drainage, associated right lower extremity swelling, occasional stage ecchymoses, abrasion. CARDIOVASCULAR: No chest pain, chest pressure or chest discomfort, palpitations,edema, orthopnea, syncopal events. RESPIRATORY: No shortness of breath, cough or sputum, wheezing, hemoptysis. GASTROINTESTINAL: + anorexia, nausea, vomiting, chronic IBS history. No persistent diarrhea, abdominal pain, melena, BRBPR. GENITOURINARY: No dysuria, frequency, urgency or retention. NEUROLOGICAL: + General debility/weakness. No headache, dizziness, syncope, paralysis, ataxia, numbness or tingling in the extremities, focal weakness, change in bowel or bladder control, seizure. MUSCULOSKELETAL: + muscle, back pain, joint pain or stiffness. HEMATOLOGIC: + Chronic anemia, easy bleeding/bruising. LYMPHATICS: No enlarged nodes. No history of splenectomy. PSYCHIATRIC: No history of depression or anxiety. ENDOCRINOLOGIC: No reports of sweating, cold or heat intolerance. No polyuria orpolydipsia. ALLERGIES: + History of hives. Vital Signs Vital Signs Vital Signs: 05/10/25 17:37 05/10/25 17:43 05/10/25 18:43 Temperature 98.5 F 98.5 F 98.5 F Temperature Source Oral Oral Oral Pulse Rate 96 95 90 Respiratory Rate 16 19 H 16 Blood Pressure 108/44 L 108/44 L 128/61 H Blood Pressure Mean 65 65 83 Pulse Ox 99 96 100 Oxygen Delivery Method Room Air Room Air Room Air Weight Weight: 139 lb Body Mass Index (BMI) 23.8 Physical Exam Narrative Physical Examination: General: Awake, alert, oriented x 3, significantly hard of hearing but is longerstanding closely patient appropriately understanding, currently given she is offher right lower extremity and not ambulating denies any severe pain. Skin: Normal color, normal turgor, no icterus, no cyanosis except notable right lower extremity various cat bites with no induration or specific drainage but notable erythema around the bites as well as significant swelling primarily to the right foot/ankle up to the proximal calf, occasional very stage ecchymoses, abrasion. HEENT: AT/NC, EOMI, PERRLA, mildly dry MM, no carotid bruits or JVD noted. Lungs: Mildly diminished, greater bases, poor effort, no rales, ronchi or wheezing. Heart: Regular rate and rhythm; no gallop, rub audible. Abdomen: Soft, NTTP, ND, mildly hyperactive BS, no HSM. Extremities: No cyanosis, no clubbing, noted right lower extremity swelling withassociated cat bite, see skin. Neurological: Patient awake, alert, oriented as noted, hard of hearing, cognitive function decreased baseline with underlying cognitive impairment but currently baseline intact per family; pupils equally reactive to light and accommodation, cranial nerves grossly normal, moving all 4 extremities, no focaldeficits, strength moderately to severely globally decreased Psychiatric: Affect appears fatigued otherwise normal, no acute evidence of depressive or anxiety feelings. Results Lab / Micro Data 05/10/25 17:45 05/10/25 17:45 Labs: Laboratory Results - last 24 hr 05/10/25 17:45: WBC 14.9 H, RBC 3.82 L, Hgb 12.1, Hct 37.4, MCV 97.9, MCH 31.7, MCHC 32.4, RDW Std Deviation 48.8 H, RDW Coeff of Swapnil 13.9, Plt Count 226, MPV 10.1, Immature Gran % (Auto) 0.600, Neut % (Auto) 88.8 H, Lymph % (Auto) 5.0 L, Wells % (Auto) 5.4, Eos % (Auto) 0.1, Baso % (Auto) 0.1, Absolute Neuts (auto) 13.2 H, Absolute Lymphs (auto) 0.74 L, Nucleated RBC % 0, Sodium 129 L, Potassium 4.2, Chloride 94 L, Carbon Dioxide 21.6, Anion Gap 14, BUN 20 H, Creatinine 0.89, Estim Creat Clear Calc 37.00 L, Est GFR (MDRD) Non-Af 62, BUN/Creatinine Ratio 22.7 H, Glucose 201 H, Calcium 10.0, Total Bilirubin 0.71, AST 19, ALT 14, Alkaline Phosphatase 74, C-React Prot Ext Range 163.00 H, Total Protein 7.5, Albumin 4.2, Globulin 3.3, Albumin/Globulin Ratio 1.3 05/10/25 18:20: Lactic Acid 1.9 Rhythm Strip Rhythm Strip: Sinus Rhythm Rate: 86 Ectopy: None Imaging Radiology Impression Chest X-Ray 05/10/25 18:45 IMPRESSION: No acute cardiopulmonary process. Reading Location: [facility] Assessment & Plan Assessment/Plan (1) Cellulitis: (2) Cat bite of right lower leg with infection: PLAN: Plan The patient is an 89 y/o F w/ PMHx: Glaucoma of unclear type, IBS, HTN, HLD, Diabetes mellitus type II with chronic neuropathy, Chronic Fe deficiency anemia,RA, Former tobacco use, Chronic cognitive impairment who presents to the [facility] ED on 05/10/25 with history of fatigue, malaise, recent onset of nausea and emesis following a cat bite that occurred the day prior noted to be an outdoor cat and unfortunately she had stepped on its tail prompting her to scratch and bite her to the right calf with urgent care evaluation placed on Augmentin with administration of 2 doses however she since then she has been having issues withnausea and emesis unable to even to keep her medications down with worsening redness to the right calf but no streaking and no fevers or chills eventually prompting ED evaluation. #1. Intractable nausea, emesis, debility with adult failure to thrive secondaryto acutely infected feline bite with right lower extremity cellulitis, several Bite wounds with no obvious current abscess, failed outpatient antibiotic therapies: Will admit to MS given stable vital signs, maintain on IV Unasyn, wound RN consulted, continue dry dressings to the region, plan repeat CBC in AM,continue affected extremity elevation above heart when seated and in bed, monitor erythema outline with VS checks, low threshold to obtain duplex US to assure no DVT concurrently if persistent swelling despite treatment of infectionas noted. Will maintain on clear liquids with Accu-Cheks every 6 hours until patient has resolution of nausea and there is no episodes of emesis with IV PPI. PT/OT/case management consulted for discharge planning. #2. Acute hyponatremia, hypochloremia, suspected hypovolemic presentation givenGI losses as noted associate with #1: Admission sodium 129, chloride 94, will continue judicious hydration and repeat CMP in AM. #3. Possible Chronic Kidney Disease Stage III, unclear subtype however no comparisons thus uncertain: Admission BUN/Cr 20/0.89, GFR 37, baseline renal function unknown, will repeat CMP in a.m. to further elucidate. #4. Chronic cognitive impairments: Possibly confounded also by significant hearing deficits, living with family and per their report doing rather well until current presentation, will maintain on fall precautions, PT/OT/case management consult for discharge planning. #5. #2. Diabetes mellitus type II with chronic neuropathy: Hold oral home regimen, given intractable nausea and emesis with #1 will temporarily maintain on clears, while on clears will maintain every 6 hours accu checks w/ ISS. Willtransition diet once clinically improving. #6. Rheumatoid arthritis: Following with rheumatology in [facility], on methotrexate with folic acid supplementation, will temporarily hold while inpatient, encourage continued follow-up outpatient with rheumatology as previously arranged. #7. Chronic iron deficiency anemia: Admission CBC with hemoglobin 12.1, MCV 97.9, baseline hemoglobin primarily 11-12, stable, will continue to trend CBC, continue iron supplementation. #8. Glaucoma, unclear type: Will continue patient home eyedrop regimen. #9. Hypertension: Continue home regimen including losartan with hold parametersas needed, PRN hydralazine. #10. Hyperlipidemia: Will continue patient on statin therapy. #11. Former tobacco use: Encourage continued tobacco cessation. #12. DVT prophylaxis: Lovenox. #13. CODE status: Patient HCPROMIE is her daughter who is present and living will is currently in place. Discussed CODE status at length including difference between FULL code, DNR-CCA and DNR-CC status. Following discussions about the differences in these status, requested DNR CCA with allowance of short-term intubation. Discussed several different scenarios to assure DNR-CCA allowance of short-term intubation status and confirmed. Advanced Care Planning Face to Face Time: 16 minutes. Charges/Coding Visit Charges Inpatient E&M: 00727 Init Hosp L3 Procedures Hospitalists Procedures: 37071 Advncd Care Plan 30 Min 05/10/252003 <Electronically signed by Misty Blanco MD> Cosigner Signature (if applicable): CC: Dr. Misty Blanco MD; Dr. Fitz Walters MD~ Signed [facility] Work Phone: [phone] 724-133706-26-2025 Discharge summary Author [facility] Note Date/Time May 10, 2025 7:[address] [facility] Medical Records Department [address] [place] [address] Emergency Department Summary 05/10/25 MR#: [id number] Acct: [id number] Name: YANN ADAIR Rep #:[id number] : 1935 89 From: Josseline Rojas PCP: Dr. Fitz Walters MD Status:R EG ER Location: ED HPI History of Present Illness Chief Complaint: Bite Informant: patient and family Narrative Narrative: Patient is an 89-year-old female with a history of mild cognitive impairment andpolyneuropathy presenting with family for nausea, vomiting, weakness in the setting of a cat bite that occurred yesterday. They have an outdoor cat and thepatient accidentally stepped on the cat's tail yesterday. The cat bit and scratched her right leg (bite wounds of the right calf). They went to urgent care and she was started on Augmentin. She took 2 doses but has been vomiting. She is not able to keep it down. She is having worsening redness and no streaking going up the leg. No report of any fevers. She currently denies any abdominal pain. She was at home alone (does live with family members who are atthe bedside) when she threw up and then lowered her self to the ground in the kitchen. Family states she was on the ground for at least an hour. Patient states that she did not hit her head. Patient is acting appropriately and does not any signs of head trauma. She is on methotrexate weekly and does have a history of diabetes as well. States that she is been having her regular bowel movements. Denies any urinary symptoms. No other complaints or concerns at this time. ROS [facility] ED Constitutional Constitutional ED: Denies chills or fever(s) Respiratory/Chest Respiratory/Chest: Reports dyspnea and other Details: Patient has chronic shortness of breath and there is on exertion, unchanged ; Denies cough Gastrointestinal Gastrointestinal: Reports nausea and vomiting; Denies abdominal pain or diarrhea Genitourinary Genitourinary ED: Denies dysuria Musculoskeletal Musculoskeletal: Reports other Details: Right calf and lower leg pain ; Denies arthralgias Integumentary Reports Abrasions, rash and other Details: Cat bite to the left lower leg Psychiatric Psychiatric: Denies anxiety Hematologic/Lymphatic Hematologic/Lymphatic: Denies easy bleeding or easy bruising [facility] Medical History Hypercalcemia Vision problem Irritable bowel syndrome (IBS) Hives High triglycerides High cholesterol History of high blood pressure Migraines Headache Glaucoma Diabetes mellitus Cataracts, bilateral Arthritis Home Medications ?Medication ?Instructions ?Recorded ?Last Taken ?Type aspirin 81 mg tablet,delayed 81 mg PO DAILY 06/01/22 U nknown History release (Adult Low Dose Aspirin) atorvastatin 10 mg tablet 10 mg PO QHS 06/01/22 Unknow n History metformin 500 mg tablet 500 mg PO BID 06/01/22 Unkno wn History ferrous sulfate 27 mg iron tablet 65 mg PO DAILY 10/29 Unknown History folic acid 1 mg tablet 1 mg PO DAILY 10/29/22 Unkno wn History glipizide 2.5 mg tablet, extended 2.5 mg PO DAILY 10/15 04/05 Unknown History release 24 hr losartan 25 mg tablet 25 mg PO DAILY 10/29/22 Unkn own History methotrexate sodium 2.5 mg tablet 2.5 mg PO QWEEK 10/15 04/05 Unknown History cyanocobalamin (vitamin B-12) 1,000 mcg PO DAILY #30 t abs 06/08/24 Unknown Rx 1,000 mcg tablet mirabegron 25 mg tablet,extended 25 mg PO QHS #30 tabs 04/17/25 Unknown Rx release 24 hr (Myrbetriq) Allergy/AdvReac Type Severity Reaction Status Date / Time Sulfa (Sulfonamide AdvReac Intermediate Hives Verified 05/10/25 17:38 Antibiotics) Family History Father Gallstones Surgical History History of bladder repair surgery Social History Smoking Status: Former smoker alcohol intake: never substance use type: does not use caffeine: Yes Type: coffee Number of servings: 1 what type of physical activity do you participate in: none rancho/temple: Jew seatbelt use: always EXAM Physical Exam Const Vital Signs: 05/10/25 17:37 05/10/25 17:43 05/10/25 18:43 Temperature 98.5 F 98.5 F 98.5 F Temperature Source Oral Oral Oral Pulse Rate 96 95 90 Respiratory Rate 16 19 H 16 Blood Pressure 108/44 L 108/44 L 128/61 H Blood Pressure Mean 65 65 83 Pulse Ox 99 96 100 Oxygen Delivery Method Room Air Room Air Room Air Positive well nourished and well developed General Appearance ED: well developed and NAD HEENT Reports moist mucous membranes Neck full ROM Resp normal respiratory effort and clear to auscultation bilaterally Cardio regular rate, regular rhythm and no murmurs Cardio Narrative: 2+ DP pulses, 2+ radial pulses GI non-tender and non-distended Inspection: Negative for abdominal distention Auscultation: normoactive bowel sounds Palpation: soft; Negative for tender Extremity Extremity Narrative: Nonpitting edema of the right lower extremity with associated erythema centered around the mid calf. She has what appears to be 4 puncture wounds on the posterior right calf consistent with a cat bite. No associated fluctuance. In addition she has some scattered skin tears consistent with cat scratches. Thereis lymphangitic streaking of skin of the anterior aspect of the leg just past the knee. No associated crepitus. No pain on proportion or significant tenderness. Compartments are soft. Neuro oriented x3 Sensorium / Orientation: alert Motor Exam: muscle tone normal throughout Psych mental status grossly normal and thought process normal Skin Skin Narrative: Scattered abrasions and cat bite with surrounding erythema, warmth and lymphangitic streaking to the right lower leg consistent with an infected cat bite. No area of fluctuance or purulence appreciated MDM MDM MDM Narrative Medical decision making narrative: Patient evaluated for nausea and vomiting after being started on Augmentin for cat bite to her right lower leg. Patient appears to have cellulitis secondary to this on exam with associated lymphangitic streaking. Sepsis workup obtained. In addition she was on the ground for at least an hour or so differential is also include rhabdomyolysis. She is not currently having nausea, vomiting or abdominal pain. Low suspicion for acute pancreatitis or acute biliary pathologybut will obtain belly labs. Sepsis workup is obtained. Patient is a leukocytosis of 14.9. Hemoglobin is normal. CMP shows a mild hyponatremia witha sodium of 129, normal anion gap, normal BUN and creatinine and normal liver enzymes. Lactate is normal at 1.9. She has a significantly elevated CRP of 163. Chest x-ray viewed by myself as well as radiology due to her report of shortnessof breath is negative. The shortness of breath is more chronic. I do not appreciate crepitus and low suspicion for necrotizing fasciitis of the leg. This is highly consistent with infection I do not think this is a PE/DVT. Patient is on IV Unasyn. Is given gentle IV fluids. Cultures are pending. Will discuss admission with hospitalist. Tetanus is also ordered. Patient is hyponatremic and start on gentle IV fluids in the emergency room. History & Record Review Discussion w/independent historian: Patient and Family Lab Data Attestation: I reviewed the patient's lab results. Labs: Laboratory Results - last 24 hr 05/10/25 05/10/25 17:45 18:20 WBC 14.9 H RBC 3.82 L Hgb 12.1 Hct 37.4 MCV 97.9 MCH 31.7 MCHC 32.4 RDW Std Deviation 48.8 H RDW Coeff of Swapnil 13.9 Plt Count 226 MPV 10.1 Immature Gran % (Auto) 0.600 Neut % (Auto) 88.8 H Lymph % (Auto) 5.0 L Wells % (Auto) 5.4 Eos % (Auto) 0.1 Baso % (Auto) 0.1 Absolute Neuts (auto) 13.2 H Absolute Lymphs (auto) 0.74 L Nucleated RBC % 0 Sodium 129 L Potassium 4.2 Chloride 94 L Carbon Dioxide 21.6 Anion Gap 14 BUN 20 H Creatinine 0.89 Estim Creat Clear Calc 37.00 L Est GFR (MDRD) Non-Af 62 BUN/Creatinine Ratio 22.7 H Glucose 201 H Lactic Acid 1.9 Calcium 10.0 Total Bilirubin 0.71 AST 19 ALT 14 Alkaline Phosphatase 74 C-React Prot Ext Range 163.00 H Total Protein 7.5 Albumin 4.2 Globulin 3.3 Albumin/Globulin Ratio 1.3 Radiography Chest X-Ray - ED: 2 View, Read by ED Physician, Read by Radiologist and No AcuteDisease Diagnostic Testing: Clinical Impression(s) from Imaging Studies Chest X-Ray 05/10/25 18:45 IMPRESSION: No acute cardiopulmonary process. Reading Location: [facility] Rhythm Strip Rhythm Strip: Sinus Rhythm Rate: 86 Ectopy: None EKG Initial EKG: Attestation: I personally reviewed and interpreted this EKG as follows: Interpretation: Sinus Rhythm Comments: Normal sinus rhythm at a rate of 86 bpm Normal axis Normal intervals Normal ST segments Management Discussion w/another healthcare provider: Hospitalist Discharge Plan Triage Chief Complaint: Bite Other Complaint: Nausea/Vomiting ED Provider: Josseline Araujo Dx/Rx/DC Orders Clinical Impression: Cat bite of right lower leg with infection, Fatigue, Cellulitis, Nausea and vomiting, Leukocytosis, Acute hyponatremia Prescriptions: No Action aspirin [Adult Low Dose Aspirin] 81 mg tablet,delayed release (DR/EC) 81 mg PO DAILY atorvastatin 10 mg tablet 10 mg PO QHS metformin 500 mg tablet 500 mg PO BID ferrous sulfate 27 mg iron tablet 65 mg PO DAILY losartan 25 mg tablet 25 mg PO DAILY methotrexate sodium 2.5 mg tablet 2.5 mg PO QWEEK glipizide 2.5 mg tablet extended release 24hr 2.5 mg PO DAILY folic acid 1 mg tablet 1 mg PO DAILY mirabegron [Myrbetriq] 25 mg tablet extended release 24 hr 25 mg PO QHS Qty: 30 6RF cyanocobalamin (vitamin B-12) 1,000 mcg tablet 1,000 mcg PO DAILY Qty: 30 10RF Primary Care Provider: Fitz Walters Referrals: Fitz Walters MD [Primary Care Provider] - Print Language: Kyrgyz Disposition Disposition: Acute Care Hospital [facility] What to do if you have Problems For any increased pain, shortness of breath, bleeding, nausea or vomiting, chestpain, or any unexpected problems, contact your Primary Care Provider. Call [facility] ([phone]) or report to the closest Emergency Room. Call 911 if necessary. 05/10/251924 <Electronically signed by Josseline Araujo DO> Cosigner Signature (if applicable): CC: Dr. Fitz Walters MD ~ Signed [facility] Work Phone: [phone] 113-846706-26-2025 History and physical note [facility] Medical Records Department [address] [place] [address] H&P Exam - Hospitalist 05/10/251916 MR#: [id number] Acct: [id number] Name: YANN ADAIR Rep #:[id number] : 1935 89 From: Misty Blanco MD PCP: Dr. Fitz Walters MD Status:R EG ER Location: ED HPI - General General Date of Service: 05/10/25 Chief Complaint: Worsening cat bite appearance, N/V HPI Narrative The patient is an 89 y/o F w/ PMHx: Glaucoma of unclear type, IBS, HTN, HLD, Diabetes mellitus typeII with chronic neuropathy, Chronic Fe deficiency anemia,RA, Former tobacco use, Chronic cognitive impairment who presents to the [facility] ED on 05/10/25 with history of fatigue, malaise, recent onset of nausea and emesis following a cat bite that occurred the day prior noted to be an outdoor cat and unfortunately she had stepped on its tail prompting her to scratch and bite her to the right calf with urgent care evaluation placed on Augmentin with administration of 2 doses however she since then shehas been having issues withnausea and emesis unable to even to keep her medications down with worsening redness to the right calf but no streaking and no fevers or chills eventually prompting ED evaluation. Patient had also of note in her kitchen and became very weak and fatigued when she was throwing up lowering her self to the ground with no loss of consciousness or head trauma. She notes the RLE has become more uncomfortable primarily with ambulation, aching, 3-4/10 in severity with notableincreased swelling. Workup in the ED included T98.5, heart rate 96, BP 108/44, respiratory rate 16, 99% on room air with most recent repeat vitals T90.5, heart90, BP 120/61, respiratory rate 16, 100% on room air, CBC with WBC 14.9, hemoglobin 12.1, platelet 226 with left shift and lymphopenia, CMP with sodium 129, chloride 94, BUN/creat 20/0.9, GFR 62, glucose 201, lactic acid 1.9, hepatic profile not marked appearing, CRP 163, chest x-ray with no acute cardiopulmonary findings. In the ED patientministered maintenance IV fluids, Unasyn 1500 g IV x 1, tetanus update. [facility] Medical History (Updated 05/10/25 @ 19:[address] Misty Blanco MD) Rheumatoid arthritis Former tobacco use HTN (hypertension) HLD (hyperlipidemia) Irritable bowel syndrome (IBS) Hives High triglycerides Migraines Glaucoma Diabetes mellitus Cataracts, bilateral Arthritis Home Medications ?Medication ?Instructions ?Recorded ?Last Taken ?Type aspirin 81 mg tablet,delayed 81 mg PO DAILY 06/01/22 0 05/10/25 History release (Adult Low Dose Aspirin) atorvastatin 10 mg tablet 10 mg PO DAILY 06/01/2204/16 History metformin 500 mg tablet 500 mg PO BID 06/01/2205/10 History ferrous sulfate 27 mg iron tablet 65 mg PO DAILY 10/2905/10/25 History folic acid 1 mg tablet 2 mg PO DAILY 10/29/2205/10 History losartan 25 mg tablet 25 mg PO DAILY 10/29/2204/16 History methotrexate sodium 2.5 mg tablet 15 mg PO QWEEK 10/2905/09/25 History cyanocobalamin (vitamin B-12) 1,000 mcg PO DAILY #30 t abs 06/08/24 05/10/25 Rx 1,000 mcg tablet mirabegron 25 mg tablet,extended 25 mg PO QHS #30 tabs 04/17/25 05/09/25 Rx release 24 hr (Myrbetriq) amoxicillin 875 mg-potassium 1 tab PO BID 05/10/25 History clavulanate 125 mg tablet dorzolamide 22.3 mg-timolol 6.8 1 drp ophthalmic (eye) BID 05/10/25 05/10/25 History mg/mL eye drops netarsudil 0.02 %-latanoprost 1 drp ophthalmic (eye) Q HS 05/10/25 05/09/25 History 0.005 % eye drops (Rocklatan) Allergy/AdvReac Type Severity Reaction Status Date / Time Sulfa (Sulfonamide AdvReac Intermediate Hives Verified 05/10/25 17:38 Antibiotics) Family History (Updated 05/10/25 @ 20:[address] Misty Blanco MD) Father Gallstones BPH (benign prostatic hyperplasia) Mother Alzheimer dementia Surgical History (Updated 05/10/25 @ 19:[address] Misty Blanco MD) History of bilateral tubal ligation History of bladder repair surgery Social History (Updated 05/10/25 @ 19:[address] Misty Blanco MD) household members: family Smoking Status: Former smoker how long ago did patient quit smoking: Smoked 40 years, started 19 until quit, ~ 1 ppd. alcohol intake: never substance use type: does not use caffeine: Yes Type: coffee Number of servings: 1 what type of physical activity do you participate in: none rancho/temple: Jew seatbelt use: always ROS ROS Narrative Admission Review of Systems: CONSTITUTIONAL: No weight loss, fever, chills, + weakness or fatigue. HEENT: Eyes: No visual loss, blurred vision, double vision or yellow sclerae. Ears, Nose, Throat: No hearing loss, sneezing, congestion, runny nose or sore throat. SKIN: No rash or itching, lesions except + significant right lower extremity catbites with erythemawith no induration or drainage, associated right lower extremity swelling, occasional stage ecchymoses, abrasion. CARDIOVASCULAR: No chest pain, chest pressure or chest discomfort, palpitations,edema, orthopnea, syncopal events. RESPIRATORY: No shortness of breath, cough or sputum, wheezing, hemoptysis. GASTROINTESTINAL: + anorexia, nausea, vomiting, chronic IBS history. No persistent diarrhea, abdominal pain, melena, BRBPR. GENITOURINARY: No dysuria, frequency, urgency or retention. NEUROLOGICAL: + General debility/weakness. No headache, dizziness, syncope, paralysis, ataxia, numbness or tingling in the extremities, focal weakness, change in bowel or bladder control, seizure. MUSCULOSKELETAL: + muscle, back pain, joint pain or stiffness. HEMATOLOGIC: + Chronic anemia, easy bleeding/bruising. LYMPHATICS: No enlarged nodes. No history of splenectomy. PSYCHIATRIC: No history of depression or anxiety. ENDOCRINOLOGIC: No reports of sweating, cold or heat intolerance. No polyuria orpolydipsia. ALLERGIES: + History of hives. Vital Signs Vital Signs Vital Signs: 05/10/25 17:37 05/10/25 17:43 05/10/25 18:43 Temperature 98.5 F 98.5 F 98.5 F Temperature Source Oral Oral Oral Pulse Rate 96 95 90 Respiratory Rate 16 19 H 16 Blood Pressure 108/44 L 108/44 L 128/61 H Blood Pressure Mean 65 65 83 Pulse Ox 99 96 100 Oxygen Delivery Method Room Air Room Air Room Air Weight Weight: 139 lb Body Mass Index (BMI) 23.8 Physical Exam Narrative Physical Examination: General: Awake, alert, oriented x 3, significantly hard of hearing but is longerstanding closely patient appropriately understanding, currently given she is offher right lower extremity and not ambulating denies any severe pain. Skin: Normal color, normal turgor, no icterus, no cyanosis except notable right lower extremity various cat bites with no induration or specific drainage but notable erythema around the bites as wellas significant swelling primarily to the right foot/ankle up to the proximal calf, occasional very stage ecchymoses, abrasion. HEENT: AT/NC, EOMI, PERRLA, mildly dry MM, no carotid bruits or JVD noted. Lungs: Mildly diminished, greater bases, poor effort, no rales, ronchi or wheezing. Heart: Regular rate and rhythm; no gallop, rub audible. Abdomen: Soft, NTTP, ND, mildly hyperactive BS, no HSM. Extremities: No cyanosis, no clubbing, noted right lower extremity swelling withassociated cat bite, see skin. Neurological: Patient awake, alert, oriented as noted, hard of hearing, cognitive function decreased baseline with underlying cognitive impairment but currently baseline intact per family; pupils equally reactive to light and accommodation, cranial nerves grossly normal, moving all 4 extremities, no focaldeficits, strength moderately to severely globally decreased Psychiatric: Affect appears fatigued otherwise normal, no acute evidence of depressive or anxiety feelings. Results Lab / Micro Data 05/10/25 17:45 05/10/25 17:45 Labs: Laboratory Results - last 24 hr 05/10/25 17:45: WBC 14.9 H, RBC 3.82 L, Hgb 12.1, Hct 37.4, MCV 97.9, MCH 31.7, MCHC 32.4, RDW Std Deviation 48.8 H, RDW Coeff of Swapnil 13.9, Plt Count 226, MPV 10.1, Immature Gran % (Auto) 0.600, Neut% (Auto) 88.8 H, Lymph % (Auto) 5.0 L, Wells % (Auto) 5.4, Eos % (Auto) 0.1, Baso % (Auto) 0.1, Absolute Neuts (auto) 13.2 H, Absolute Lymphs (auto) 0.74 L, Nucleated RBC % 0, Sodium 129 L, Potassium 4.2, Chloride 94 L, Carbon Dioxide 21.6, Anion Gap 14, BUN 20 H, Creatinine 0.89, Estim Creat Clear Calc 37.00 L, Est GFR (MDRD) Non-Af 62, BUN/Creatinine Ratio 22.7 H, Glucose 201 H, Calcium 10.0, Total Bilirubin 0.71, AST 19, ALT 14, Alkaline Phosphatase 74, C-React Prot Ext Range 163.00 H, Total Protein 7.5, Albumin 4.2, Globulin 3.3, Albumin/Globulin Ratio 1.3 05/10/25 18:20: Lactic Acid 1.9 Rhythm Strip Rhythm Strip: Sinus Rhythm Rate: 86 Ectopy: None Imaging Radiology Impression Chest X-Ray 05/10/25 18:45 IMPRESSION: No acute cardiopulmonary process. Reading Location: [id number] Assessment & Plan Assessment/Plan (1) Cellulitis: (2) Cat bite of right lower leg with infection: PLAN: Plan The patient is an 89 y/o F w/ PMHx: Glaucoma of unclear type, IBS, HTN, HLD, Diabetes mellitus typeII with chronic neuropathy, Chronic Fe deficiency anemia,RA, Former tobacco use, Chronic cognitive impairment who presents to the [facility] ED on 05/10/25 with history of fatigue, malaise, recent onset of nausea and emesis following a cat bite that occurred the day prior noted to be an outdoor cat and unfortunately she had stepped on its tail prompting her to scratch and bite her to the right calf with urgent care evaluation placed on Augmentin with administration of 2 doses however she since then shehas been having issues withnausea and emesis unable to even to keep her medications down with worsening redness to the right calf but no streaking and no fevers or chills eventually prompting ED evaluation. #1. Intractable nausea, emesis, debility with adult failure to thrive secondaryto acutely infected feline bite with right lower extremity cellulitis, several Bite wounds with no obvious current abscess, failed outpatient antibiotic therapies: Will admit to [facility] given stable vital signs, maintain on IV Unasyn, wound RN consulted, continue dry dressings to the region, plan repeat CBC in AM,continue affected extremity elevation above heart when seated and in bed, monitor erythema outline with VS checks, low threshold to obtain duplex US to assure no DVT concurrently if persistent swelling despite treatment of infectionas noted. Will maintain on clear liquids with Accu-Cheks every 6 hours until patient has resolution of nausea and there is no episodes of emesis with IV PPI. PT/OT/case management consulted for discharge planning. #2. Acute hyponatremia, hypochloremia, suspected hypovolemic presentation givenGI losses as noted associate with #1: Admission sodium 129, chloride 94, will continue judicious hydration and repeat CMP in AM. #3. Possible Chronic Kidney Disease Stage III, unclear subtype however no comparisons thus uncertain: Admission BUN/Cr 20/0.89, GFR 37, baseline renal function unknown, will repeat CMP in a.m. to further elucidate. #4. Chronic cognitive impairments: Possibly confounded also by significant hearing deficits, livingwith family and per their report doing rather well until current presentation, will maintain on fall precautions, PT/OT/case management consult for discharge planning. #5. #2. Diabetes mellitus type II with chronic neuropathy: Hold oral home regimen, given intractable nausea and emesis with #1 will temporarily maintain on clears, while on clears will maintain every6 hours accu checks w/ ISS. Willtransition diet once clinically improving. #6. Rheumatoid arthritis: Following with rheumatology in [facility], on methotrexate with folic acid supplementation, will temporarily hold while inpatient, encourage continued follow-up outpatient with rheumatology as previously arranged. #7. Chronic iron deficiency anemia: Admission CBC with hemoglobin 12.1, MCV 97.9, baseline hemoglobin primarily 11-12, stable, will continue to trend CBC, continue iron supplementation. #8. Glaucoma, unclear type: Will continue patient home eyedrop regimen. #9. Hypertension: Continue home regimen including losartan with hold parametersas needed, PRN hydralazine. #10. Hyperlipidemia: Will continue patient on statin therapy. #11. Former tobacco use: Encourage continued tobacco cessation. #12. DVT prophylaxis: Lovenox. #13. CODE status: Patient MATTIE is her daughter who is present and living will is currently in place. Discussed CODE status at length including difference between FULL code, DNR-CCA and DNR-CC status. Following discussions about the differences in these status, requested DNR CCA with allowance of short-term intubation. Discussed several different scenarios to assure DNR-CCA allowance of short-term intubation status and confirmed. Advanced Care Planning Face to Face Time: 16 minutes. Charges/Coding Visit Charges Inpatient E&M: 69893 Init Hosp L3 Procedures Hospitalists Procedures: 75589 Advncd Care Plan 30 Min 05/10/252003 Cosigner Signature (if applicable): CC: Dr. Misty Blanco MD; Dr. Fitz Walters MD~ Signed [facility]06-26-2025 Discharge summary [facility] Medical Records Department [address] [place] [address] Emergency Department Summary 05/10/25 MR#: [id number] Acct: [id number] Name: YANN ADAIR Rep #:[id number] : 1935 89 From: Josseline Rojas PCP: Dr. Fitz Walters MD Status:R EG ER Location: ED HPI History of Present Illness Chief Complaint: Bite Informant: patient and family Narrative Narrative: Patient is an 89-year-old female with a history of mild cognitive impairment andpolyneuropathy presenting with family for nausea, vomiting, weakness in the setting of a cat bite that occurred yesterday. They have an outdoor cat and thepatient accidentally stepped on the cat's tail yesterday. The cat bit and scratched her right leg (bite wounds of the right calf). They went to urgent care and she was started on Augmentin. She took 2 doses but has been vomiting. She is not able to keep it down. She is having worsening redness and no streaking going up the leg. No report of any fevers. She currently denies any abdominal pain. She was at home alone (does live with family members who are atthe bedside) when she threw up and then lowered her self to the ground in the kitchen. Family states she was on the ground for at least an hour. Patient states that she did not hit her head. Patient is acting appropriately and does not any signs of head trauma. She is on methotrexate weekly and does havea history of diabetes as well. States that she is been having her regular bowel movements. Denies any urinary symptoms. No other complaints or concerns at this time. ROS [facility] ED Constitutional Constitutional ED: Denies chills or fever(s) Respiratory/Chest Respiratory/Chest: Reports dyspnea and other Details: Patient has chronic shortness of breath and there is on exertion, unchanged ; Denies cough Gastrointestinal Gastrointestinal: Reports nausea and vomiting; Denies abdominal pain or diarrhea Genitourinary Genitourinary ED: Denies dysuria Musculoskeletal Musculoskeletal: Reports other Details: Right calf and lower leg pain ; Denies arthralgias Integumentary Reports Abrasions, rash and other Details: Cat bite to the left lower leg Psychiatric Psychiatric: Denies anxiety Hematologic/Lymphatic Hematologic/Lymphatic: Denies easy bleeding or easy bruising [facility] Medical History Hypercalcemia Vision problem Irritable bowel syndrome (IBS) Hives High triglycerides High cholesterol History of high blood pressure Migraines Headache Glaucoma Diabetes mellitus Cataracts, bilateral Arthritis Home Medications ?Medication ?Instructions ?Recorded ?Last Taken ?Type aspirin 81 mg tablet,delayed 81 mg PO DAILY 06/01/22 U nknown History release (Adult Low Dose Aspirin) atorvastatin 10 mg tablet 10 mg PO QHS 06/01/22 Unknow n History metformin 500 mg tablet 500 mg PO BID 06/01/22 Unkno wn History ferrous sulfate 27 mg iron tablet 65 mg PO DAILY 10/29 Unknown History folic acid 1 mg tablet 1 mg PO DAILY 10/29/22 Unkno wn History glipizide 2.5 mg tablet, extended 2.5 mg PO DAILY 10/15 04/05 Unknown History release 24 hr losartan 25 mg tablet 25 mg PO DAILY 10/29/22 Unkn own History methotrexate sodium 2.5 mg tablet 2.5 mg PO QWEEK 10/15 04/05 Unknown History cyanocobalamin (vitamin B-12) 1,000 mcg PO DAILY #30 t abs 06/08/24 Unknown Rx 1,000 mcg tablet mirabegron 25 mg tablet,extended 25 mg PO QHS #30 tabs 04/17/25 Unknown Rx release 24 hr (Myrbetriq) Allergy/AdvReac Type Severity Reaction Status Date / Time Sulfa (Sulfonamide AdvReac Intermediate Hives Verified 05/10/25 17:38 Antibiotics) Family History Father Gallstones Surgical History History of bladder repair surgery Social History Smoking Status: Former smoker alcohol intake: never substance use type: does not use caffeine: Yes Type: coffee Number of servings: 1 what type of physical activity do you participate in: none rancho/temple: Jew seatbelt use: always EXAM Physical Exam Const Vital Signs: 05/10/25 17:37 05/10/25 17:43 05/10/25 18:43 Temperature 98.5 F 98.5 F 98.5 F Temperature Source Oral Oral Oral Pulse Rate 96 95 90 Respiratory Rate 16 19 H 16 Blood Pressure 108/44 L 108/44 L 128/61 H Blood Pressure Mean 65 65 83 Pulse Ox 99 96 100 Oxygen Delivery Method Room Air Room Air Room Air Positive well nourished and well developed General Appearance ED: well developed and NAD HEENT Reports moist mucous membranes Neck full ROM Resp normal respiratory effort and clear to auscultation bilaterally Cardio regular rate, regular rhythm and no murmurs Cardio Narrative: 2+ DP pulses, 2+ radial pulses GI non-tender and non-distended Inspection: Negative for abdominal distention Auscultation: normoactive bowel sounds Palpation: soft; Negative for tender Extremity Extremity Narrative: Nonpitting edema of the right lower extremity with associated erythema centered around the mid calf. She has what appears to be 4 puncture wounds on the posterior right calf consistent with a cat bite. No associated fluctuance. In addition she has some scattered skin tears consistent with cat scratches. Thereis lymphangitic streaking of skin of the anterior aspect of the leg just past the knee. No associated crepitus. No pain on proportion or significant tenderness. Compartments are soft. Neuro oriented x3 Sensorium / Orientation: alert Motor Exam: muscle tone normal throughout Psych mental status grossly normal and thought process normal Skin Skin Narrative: Scattered abrasions and cat bite with surrounding erythema, warmth and lymphangitic streaking to the right lower leg consistent with an infected cat bite. No area of fluctuance or purulence appreciated MDM MDM MDM Narrative Medical decision making narrative: Patient evaluated for nausea and vomiting after being started on Augmentin for cat bite to her right lower leg. Patient appears to have cellulitis secondary to this on exam with associated lymphangitic streaking. Sepsis workup obtained. In addition she was on the ground for at least an hour or so differential is also include rhabdomyolysis. She is not currently having nausea, vomiting or abdominal pain. Low suspicion for acute pancreatitis or acute biliary pathologybut will obtain belly labs. Sepsis workup is obtained. Patient is a leukocytosis of 14.9. Hemoglobin is normal. CMP shows a mild hyponatremia witha sodium of 129, normal anion gap, normal BUN and creatinine and normal liver enzymes. Lactate is normal at 1.9. She has a significantly elevated CRP of 163. Chest x-ray viewed by myself as well as radiology due to her report of shortnessof breath is negative. The shortness of breath is more chronic. I do not appreciate crepitus and low suspicion for necrotizing fasciitis of the leg. This is highly consistent with infection I do not think this is a PE/DVT. Patient is on IV Unasyn. Is given gentle IV fluids. Cultures are pending. Will discuss admission with hospitalist. Tetanus is also ordered. Patient is hyponatremic and start on gentle IV fluids in the emergency room. History & Record Review Discussion w/independent historian: Patient and Family Lab Data Attestation: I reviewed the patient's lab results. Labs: Laboratory Results - last 24 hr 05/10/25 05/10/25 17:45 18:20 WBC 14.9 H RBC 3.82 L Hgb 12.1 Hct 37.4 MCV 97.9 MCH 31.7 MCHC 32.4 RDW Std Deviation 48.8 H RDW Coeff of Swapnil 13.9 Plt Count 226 MPV 10.1 Immature Gran % (Auto) 0.600 Neut % (Auto) 88.8 H Lymph % (Auto) 5.0 L Wells % (Auto) 5.4 Eos % (Auto) 0.1 Baso % (Auto) 0.1 Absolute Neuts (auto) 13.2 H Absolute Lymphs (auto) 0.74 L Nucleated RBC % 0 Sodium 129 L Potassium 4.2 Chloride 94 L Carbon Dioxide 21.6 Anion Gap 14 BUN 20 H Creatinine 0.89 Estim Creat Clear Calc 37.00 L Est GFR (MDRD) Non-Af 62 BUN/Creatinine Ratio 22.7 H Glucose 201 H Lactic Acid 1.9 Calcium 10.0 Total Bilirubin 0.71 AST 19 ALT 14 Alkaline Phosphatase 74 C-React Prot Ext Range 163.00 H Total Protein 7.5 Albumin 4.2 Globulin 3.3 Albumin/Globulin Ratio 1.3 Radiography Chest X-Ray - ED: 2 View, Read by ED Physician, Read by Radiologist and No AcuteDisease Diagnostic Testing: Clinical Impression(s) from Imaging Studies Chest X-Ray 05/10/25 18:45 IMPRESSION: No acute cardiopulmonary process. Reading Location: [facility] Rhythm Strip Rhythm Strip: Sinus Rhythm Rate: 86 Ectopy: None EKG Initial EKG: Attestation: I personally reviewed and interpreted this EKG as follows: Interpretation: Sinus Rhythm Comments: Normal sinus rhythm at a rate of 86 bpm Normal axis Normal intervals Normal ST segments Management Discussion w/another healthcare provider: Hospitalist Discharge Plan Triage Chief Complaint: Bite Other Complaint: Nausea/Vomiting ED Provider: Josselien Araujo Dx/Rx/DC Orders Clinical Impression: Cat bite of right lower leg with infection, Fatigue, Cellulitis, Nausea and vomiting, Leukocytosis,Acute hyponatremia Prescriptions: No Action aspirin [Adult Low Dose Aspirin] 81 mg tablet,delayed release (DR/EC) 81 mg PO DAILY atorvastatin 10 mg tablet 10 mg PO QHS metformin 500 mg tablet 500 mg PO BID ferrous sulfate 27 mg iron tablet 65 mg PO DAILY losartan 25 mg tablet 25 mg PO DAILY methotrexate sodium 2.5 mg tablet 2.5 mg PO QWEEK glipizide 2.5 mg tablet extended release 24hr 2.5 mg PO DAILY folic acid 1 mg tablet 1 mg PO DAILY mirabegron [Myrbetriq] 25 mg tablet extended release 24 hr 25 mg PO QHS Qty: 30 6RF cyanocobalamin (vitamin B-12) 1,000 mcg tablet 1,000 mcg PO DAILY Qty: 30 10RF Primary Care Provider: Fitz Walters Referrals: Fitz Walters MD [Primary Care Provider] - Print Language: Kyrgyz Disposition Disposition: Acute Care Hospital [facility] What to do if you have Problems For any increased pain, shortness of breath, bleeding, nausea or vomiting, chestpain, or any unexpected problems, contact your Primary Care Provider. Call [facility] ([phone]) or report tothe closest Emergency Room. Call 911 if necessary. 05/10/251924 Cosigner Signature (if applicable): CC: Dr. Fitz Walters MD ~ Signed [facility]06-26-2025 Radiology Diagnostic study note [facility] Imaging Services [address] [place] [address] Chest PA and Lateral MR#: [id number] Acct: [id number] Name: YANN ADAIR Rep #: [id number] : 1935 F 89 From: Karina Marquez MD PCP: Dr. Fitz Walters MD Status: R ER Study:Chest PA and Lateral Date of Exam: 05/10/25 Exam# [id number] Ordering Dr: Nida Araujo DO EXAM: XR Chest, 2 Views CLINICAL INDICATION: WEAKNESS TECHNIQUE: Frontal and lateral views of the chest. COMPARISON: No relevant prior studies available. FINDINGS: LUNGS AND PLEURAL SPACES: Unremarkable. No consolidation. No pneumothorax. HEART: Unremarkable. No cardiomegaly. MEDIASTINUM: Unremarkable. Normal mediastinal contour. BONES/JOINTS: Unremarkable. No acute fracture. RAD/Chest PA and Lateral IMPRESSION: No acute cardiopulmonary process. Reading Location: [id number] CC: Dr. Josseline Araujo DO; Dr. Fitz Walters MD ~ Welding Pantograph Machine Operator: Signed [facility]06-03-2025 Evaluation note* Diagnosis Onset Date Resolution Status Admit Date Abnormality of gait and mobility chr onic April 17, 2025 1:52pm Mild cognitive impairment chronic April 17, 2025 1:52pm Polyneuropathy chronic April 17, 2025 1:52pm Urinary frequency chronic April 1:52pm [facility] Work Phone: 1(883) 239-445206-03-2025 Evaluation note* Diagnosis Onset Date Resolution Status Admit Date Abnormality of gait and mobility chr onic April 17, 2025 1:52pm Mild cognitive impairment chronic April 17, 2025 1:52pm Polyneuropathy chronic April 17, 2025 1:52pm Urinary frequency chronic April 1:52pm Acute hyponatremia acute April 162024 7:18pm Cat bite of right lower leg with infection acute May 10, 2025 7:18pm Cellulitis acute May 10 7:18pm [facility] Work Phone: 1(459) 863-483206-03-2025 Evaluation note* Diagnosis Onset Date Resolution Status Admit Date Abnormality of gait and mobility chr onic April 17, 2025 1:52pm Mild cognitive impairment chronic April 17, 2025 1:52pm Polyneuropathy chronic April 17, 2025 1:52pm Urinary frequency chronic April 1:52pm Acute hyponatremia inactive April 162024 7:18pm Cat bite of right lower leg with infection inactive May 10, 2025 7:18pm Cellulitis inactive May 10 7:18pm [facility] Work Phone: 1(807) 456-592506-03-2025 Evaluation note* Diagnosis Onset Date Resolution Status Admit Date Abnormality of gait and mobility chronic April 17, 2025 1 :52pm Mild cognitive impairment chronic April 17, 2025 1:52pm Polyneuropathy chronic April 17, 2025 1:52pm Urinary frequency chronic April 1:52pm Acute hyponatremia inactive April 162024 7:18pm Cat bite of right lower leg with infection inactive May 10, 2025 7:18pm Cellulitis inactive May 10 7:18pm Acute metabolic encephalopathy acute July 14, 2025 1:06am Dehydration acute July 14, 2025 1:06am Fever acute July 14, 2 025 1:06am Hyponatremia acute July 14, 2025 1:06am Mild cognitive impairment chronic July 14, 2025 1:06am [facility] Work Phone: 1(728) 320-754606-03-2025 Evaluation note* Diagnosis Onset Date Resolution Status Admit Date Abnormality of gait and mobility chr onic April 17, 2025 1:52pm Mild cognitive impairment chronic April 17, 2025 1:52pm Polyneuropathy chronic April 17, 2025 1:52pm Urinary frequency chronic April 1:52pm Acute hyponatremia inactive April 162024 7:18pm Cat bite of right lower leg with infection inactive May 10, 2025 7:18pm Cellulitis inactive May 10 7:18pm Acute metabolic encephalopathy acute July 14, 2025 12:52am Campylobacter gastroenteritis acute July 14, 2025 12:52am Colitis acute July 14, 2 025 12:52am Dehydration acute July 14, 2025 12:52am Enteritis acute July 14, 2 025 12:52am Fever acute July 14, 025 12:52am Gastritis acute July 14, 2 025 12:52am Hypomagnesemia acute June 12:52am Hyponatremia acute July 14, 2025 12:52am Nausea and vomiting acute Aug2024 12:52am Mild cognitive impairment chronic July 14, 2025 12:52am [facility] Work Phone: 1(517) 782-895905-19-2025 Telephone encounter Note* Telephone Encounter - Alee Brown LPN - 04/02/2025 12:37 PM EDT Patient notified, she has refills remaining for Atorvastatin (Lipitor), written 01/16/2025 at /[place]. Alee Brown LPN [facility]05-19-2025 Miscellaneous Notes* Telephone Encounter - Alee Brown LPN - 04/02/2025 12:37 PM EDT Patient notified, she has refills remaining for Atorvastatin (Lipitor), written 01/16/2025 at [facility]/[place]. Alee Brown LPN documented in this encounterPromedica [facility]03-24-[facility]25 Telephone encounter Note * Telephone Encounter - [place] Yany Matamoros - 02/05/2025 9:14 AM EDT [...] times a day with meals. Yany Segovia [facility] February 05, 2025 9:14 AM [facility]03-24-2025 Miscellaneous Notes* Telephone Encounter - [place] Yany Matamoros - 02/05/2025 9:14 AM EDT [...] two times a day with meals. Yany Matamoros February 05, 2025 9:14 AM documented in this encounterPromedica Flower [facility]01-17-2025 NoteHNO ID: [id number] Author: ANGELINA FLEMING, ? Service: ? Author Type: Physician Type: [...] is to RTC in 3-4 months. Angelina Fleming [facility]01-17-2025 History of Present illness Narrative* Angelina Fleming - 12/01/2024 1:31 PM EST Last saw [...] is to RTC in 3-4 months. Angelina Fleming DPM * Bernice Eason LPN - 12/01/2024 1:20 PM EST Patient presents with: Right Foot - Established Patient, Pain: Nail Care Left Foot - Established Patient, Pain: Nail Care Bernice Eason LPN documented in this encounterPromedica Flower Hospital01-17-2025 Instructions* Patient Instructions* Angelina Fleming - 12/01/2024 1:31 PM EST Diabetes Foot [...] or sore from your shoes, do not "pop" it. Apply a bandage and wear a differentpair of shoes. Take Care of Your Toenails Cut toenails after bathing, when they are soft. Cut toenails straight across and smooth with a nail file. Avoid cutting into the corners of toes. Do not cut cuticles. If you have neuropathy (or decreased sensation in your feet) a general assignment reporter should always cut your toenails. Be Careful [...] your shoes are too tight. Perform the "footwear test" described below. Footwear Test Use this simple [...] Go to your health care provider or general assignment reporter to treat these conditions. documented in this encounterPromedica Flower Hospital01-17-2025 NoteHNO ID: [id number] Author: BERNICE EASON LPN Service: ? Author Type: LICENSED NURSE Type: Progress Notes Filed: 12/01/2024 13:47 Note Text: Patient presents with: Right Foot - Established Patient, Pain: Nail Care Left Foot - Established Patient, Pain: Nail Care [facility] Instructions* Patient Instructions* Sandra Coombs, RO.FLAGSETTER - 11/27/2024 2:05 PM EST Screening schedule [...] review all the medicines you take, even [id number] medicines. As you get older, the way [...] have certain medical conditions. documented in this encounterPromedica Flower Hospital01-13-2025 NoteHNO ID: [id number] Author: SANDRA COOMBS APRN.CNP Service: ? Author Type: Nurse Practitioner [...] Walters MD as PCP - General Sandra Coombs APRN.JAIME as Disc Inspector (Internal Medicine) Retinal specialist- [facility] Dr. Gould-neurologist Dr. Fleming-general assignment reporter Dr. Hinds-city planning teacher Medical/Family history review Reviewed and updated problem [...] 110/62 Pulse 72 Ht 156.8 cm (5' 1.75") Wt 65.9 kg (145 lb 4.5 oz) [...] 110/62 Pulse 72 Ht 156.8 cm (5' 1.75") Wt 65.9 kg (145 lb 4.5 oz) [...] YR, HIGH DOSE, TRIVALENT (FLUZONE HIGH-DOSE) - Roomlr COVID-19 VACCINE AGE 12+ YR (COMIRNATY) Sandra Coombs APRN.[facility]01-13-2025 History of Present illness Narrative* Sandra Coombs APRN.FLAGSETTER - 11/27/2024 1:59 PM EST Images from [...] Walters MD as PCP - General Sandra Coombs APRN.JAIME as Disc Inspector (Internal Medicine) Retinal specialist- [facility] Dr. Gould-neurologist Dr. Fleming-general assignment reporter Dr. Hinds-city planning teacher Medical/Family history review Reviewed and updated problem [...] 110/62 Pulse 72 Ht 156.8 cm (5' 1.75") Wt 65.9 kg (145 lb 4.5 oz) [...] 110/62 Pulse 72 Ht 156.8 cm (5' 1.75") Wt 65.9 kg (145 lb 4.5 oz) [...] YR, HIGH DOSE, TRIVALENT (FLUZONE HIGH-DOSE) - Swoopo-Talisma COVID-19 VACCINE AGE 12+ YR (COMIRNATY) Sandra Coombs APRN.FLAGSETTER documented in this encounterPromedica Flower Hospital07-11-2024 History of Present illness Narrative* Fitz Walters MD - 05/25/2024 2:57 PM EDT This note was created using [employer]. Subjective Yann Adair is a 88 year [...] tablet by mouth daily with breakfast. Lancets (UrjanetTOUCH ULTRASOFT LANCETS) lancets Test blood sugar(s) 1 [...] medications. Fitz Walters MD documented in this encounterPromedica Flower Hospital06-03-2024 Telephone encounter Note * Telephone Encounter - [...] Please advise. Thank you. Karolina Smith LPN. [facility]06-03-2024 Miscellaneous Notes* Telephone Encounter - Karolina Smith [...] you. Karolina Smith LPN. documented in this encounterPromedica Flower Hospital04-11-2024 Miscellaneous Notes* Telephone Encounter - Alee Brown [...] notify patient. Shavon Flannery documented in this encounterPromedica Flower Hospital04-05-2024 Miscellaneous Notes* Telephone Encounter - Linda Roque [...] Thank you. Linda Roque. documented in this encounterPromedica Flower Hospital02-29-2024 History of Present illness Narrative* Angelina Fleming - 01/13/2024 2:11 PM EST Last saw [...] Objective: Patient presents to clinic ambulating in [facility] Vasc: DP and PT pulses are faintly [...] is to RTC in 3-4 months. Angelina Fleming DPM documented in this encounterPromedica Flower Hospital02-19-2024 Miscellaneous Notes* Telephone Encounter - Beverley Nick [...] day 9. OTHER SYMPTOMS:Denies light-headedness Protocols used: [id number] documented in this encounterPromedica Flower Hospital11-03-2023 History of Present illness Narrative* Angelina Fleming - 09/17/2023 2:42 PM EDT Last saw [...] to left foot was filed down with dorothy Roca with good supportive shoes for flatfoot Patient was instructed on the continued importance of diabetic foot care along with proper diet andkeeping their blood sugar under control to prevent complications. Patient is to RTC in 3-4 months. Angelina Fleming DPM * SHELLEY Sousa Laurie - 09/17/2023 2:09 PM EDT AMB ROOMING INTAKE FLOWSHEET DATA Nail care. No specific issues. Diabetic foot check. documented in this encounterPromedica Flower Hospital11-03-2023 Instructions* Patient Instructions* Angelina Fleming - 09/17/2023 2:42 PM EDT Diabetes Foot [...] or sore from your shoes, do not "pop" it. Apply a bandage and wear a differentpair of shoes. Take Care of Your Toenails Cut toenails after bathing, when they are soft. Cut toenails straight across and smooth with a nail file. Avoid cutting into the corners of toes. Do not cut cuticles. If you have neuropathy (or decreased sensation in your feet) a general assignment reporter should always cut your toenails. Be Careful [...] your shoes are too tight. Perform the "footwear test" described below. Footwear Test Use this simple [...] Go to your health care provider or general assignment reporter to treat these conditions. documented in this encounterPromedica Flower Hospital07-10-2023 Miscellaneous Notes* Telephone Encounter - Alee Brown [...] 7 days sent. Fluids. documented in this encounterPromedica Flower Hospital07-03-2023 Instructions* Patient Instructions* Fitz Walters MD - 05/17/2023 3:37 PM EDT WE WILL CALL WITH URINE CULTURE RESULTS IN 2-3 DAYS. FASTING BLOOD WORK IN 6 MONTHS. documented in this encounterPromedica Flower Hospital07-03-2023 History of Present illness Narrative* Fitz Walters MD - 05/17/2023 3:16 PM EDT This note was created using [employer]. Subjective Yann Adair is a 87 year [...] parking. Fitz Walters MD documented in this encounterPromedica Flower Hospital06-21-2023 Miscellaneous Notes* Telephone Encounter - Dhara Jimenez RN - 05/05/2023 12:52 PM EDT Pt called and is notified of providers instructions. Pt voices understanding. Dhara Jimenez RN * Telephone Encounter - Angela Saucedo Pss - 05/05/2023 10:15 AM EDT Patient calling askng if she needs labs drawn prior to May 17 office visit. Please advise and call patient. documented in this encounterPromedica Flower Hospital05-31-2023 Miscellaneous Notes* Telephone Encounter - Alee Maya Stephanie COBURN - 04/14/2023 11:41 AM EDT Patient has [...] patient. Eli Cornell Pss documented in this encounterPromedica Flower Hospital03-31-2023 Miscellaneous Notes* Telephone Encounter - Lynette Kennedy [...] resolved. Lisa Wilson CNP documented in this encounterPromedica Flower Hospital03-29-2023 History of Present illness Narrative* Milagros Gramajo APRN.CNP - 02/10/2023 12:02 PM EDT This note was created using [employer]. Subjective Yann Adair is a 87 year [...] Level: 3 - Low documented in this encounterPromedica Flower Hospital03-28-2023 Miscellaneous Notes* Telephone Encounter - Sandra Mahoney APRN.CNP - 02/09/2023 3:01 PM EDT Noted and agree Sandra Mahoney APRN.CNP * Telephone Encounter - Evelyne Moura RN - 02/09/2023 2:07 PM EDT Patient [...] to be evaluated. Patient voiced understanding. Evelyne Moura RN documented in this encounterPromedica Flower Hospital03-22-2023 Miscellaneous Notes* Telephone Encounter - Felecia Cruz LPN - 02/03/2023 3:44 PM EDT Pt last seen 11/10/22. Next appt with pcp in April. * Telephone Encounter - [facility] - 02/03/2023 1:01 PM EDT Patient has been identified by name and date of : Yes Requested Prescriptions Pending Prescriptions Disp Refills metFORMIN (GLUCOPHAGE) 500 mg tablet 180 tablet 3 Sig: Take 1 tablet by mouth twice daily with meals. RX INSTRUCTIONS: Patient aware RX will be sent to pharmacy. No need to notify patient. [facility] documented in this encounterPromedica Flower [facility]12-27-2022 History of Present illness Narrative* Sandra Older, TURN LASTER.FLAGSETTER - 11/10/2022 1:19 PM EST Yann Adair is a 86 year old female here for a Medicare Subsequent Annual Wellness Visit Health Risk Assessment In general, health is: Very good Concerns with balance:Not at all Concerns with teeth or dentures:Not at all Concerns with sexual function:na [place] anxious, stressed, angry, irritable, lonely, isolated, or [...] Walters MD as PCP - General Dr. Fleming- Podiatry Outside specialists seen: Neurologist- Dr. Cantu Research Tech- Dr. Hinds Weatherization Coordinator- Dr. Liban Leiva Water Resource Consultant- Dr. Finley Medical/Family history review Reviewed and [...] 123/79 Pulse 81 Resp 18 Ht 5' 2.75" (1.59m) Wt 142 lb (64.4kg) BMI 25.35 [...] at this time. - Patient was counseled [id number] by myself (the billing provider) for the [...] 65+ Sandra Mahoney APRN.CNP documented in this encounterPromedica Flower Hospital12-27-2022 Instructions* Patient Instructions* Sandra Mahoney APRN.CNP - [...] review all the medicines you take, even nxxn-pvw-musushy medicines. As you get older, the way [...] have certain medical conditions. documented in this encounterPromedica Flower Hospital11-03-2022 Miscellaneous Notes* Telephone Encounter - Ne Shen LPN - 09/17/2022 2:53 PM EDT Gail from [facility] calling asking for copy of patients bone density be faxed to [phone]. Printed from 04/2013 and faxed as requested. documented in this encounterPromedica Flower Hospital11-01-2022 Miscellaneous Notes* Telephone Encounter - Liban Wu Ma - 09/15/2022 1:11 PM EDT Patient notified, verbalized understanding and transferred to [facility] [employer]. * Telephone Encounter - Liban Wu Ma - 09/14/2022 11:45 AM EDT Left message to call office. 09/14/2022 11:45 AM * Telephone Encounter - Sandra Mahoney APRN.CNP - 09/14/2022 8:45 AM EDT Calcium is still elevated, patient needs to see endocrinology Sandra Mahoney APRN.CNP documented in this encounterPromedica Flower Hospital10-14-2022 Miscellaneous Notes* Telephone Encounter - Liban Wu Ma - 08/28/2022 2:52 PM EDT Patient notified, verbalized understanding. * Telephone Encounter - Sandra Mahoney APRN.CNP - 08/28/2022 2:15 PM EDT Please let the patient know the lab test showed minimal elevation. Recommend rechecking in a coupleweeks and if it is still elevated will refer her to healthcare corporate account director. In the meantime make sure she is not taking any calcium supplements. She does not need to limit the calcium in her diet however. Sandra Mahoney APRN.CNP documented in this encounterPromedica Flower Hospital10-11-2022 Miscellaneous Notes* Telephone Encounter - Marlene Austin [...] 1:44 PM EDT Lab results printed from [facility], given to NEWS COPY EDITOR. Alee Brown LPN * Telephone Encounter - Sandra Mahoney APRN.CNP - 08/25/2022 12:35 PM EDT Please get lab results from [facility] Sandra Mahoney APRN.CNP * Telephone Encounter - Evelyne Moura RN - 08/25/2022 9:53 AM EDT Patient calls and states that she had labs done at Dr. Hinds's office yesterday. Patient states that she was told that her calcium was 11. Patient states that she was suppose to call PCP in regards to this. Please review and advise, Evelyne Moura RN documented in this encounterPromedica Flower Hospital09-16-2022 History of Present illness Narrative* Angelina Fleming - 07/31/2022 1:27 PM EDT Last saw [...] is to RTC in 3-4 months. Angelina Fleming DPM * Hilary Skaggs LPN - 07/31/2022 1:06 PM EDT AMB ROOMING INTAKE FLOWSHEET DATA Risk Screening Do you have concerns about personal safety or safety in the home?: No Patient presents with: Left Foot - Established Patient, Follow Up, Diabetic Foot Care Right Foot - Established Patient, Follow Up, Diabetic Foot Care Hilary Skaggs LPN documented in this encounterPromedica Flower Hospital09-16-2022 Instructions* Patient Instructions* Angelina Fleming - 07/31/2022 1:27 PM EDT Diabetes Foot [...] or sore from your shoes, do not "pop" it. Apply a bandage and wear a differentpair of shoes. Take Care of Your Toenails Cut toenails after bathing, when they are soft. Cut toenails straight across and smooth with a nail file. Avoid cutting into the corners of toes. Do not cut cuticles. If you have neuropathy (or decreased sensation in your feet) a general assignment reporter should always cut your toenails. Be Careful [...] your shoes are too tight. Perform the "footwear test" described below. Footwear Test Use this simple [...] Go to your health care provider or general assignment reporter to treat these conditions. documented in this encounterPromedica Flower Hospital09-01-2022 Miscellaneous Notes* Telephone Encounter - Miley Paredes [...] Walters MD * Telephone Encounter - Evelyne Moura, RN - 07/16/2022 1:09 PM EDT Patient calls and is asking about her urine culture results. [facility]. Please review and advise, Evelyne Moura RN documented in this encounterPromedica Flower Hospital08-25-2022 Instructions* Patient Instructions* Fitz Walters MD - 07/09/2022 2:56 PM EDT STOP VESICARE. URINE CULTURE SENT AND WILL DETERMINE IF ANTIBIOTIC IS NEEDED. documented in this encounterPromedica Flower Hospital08-25-2022 History of Present illness Narrative* Fitz Walters MD - 07/09/2022 2:23 PM EDT This note was created using Tango Card. Subjective Yann Adair is a 86 year [...] TOP) Fitz Walters MD documented in this encounterPromedica Flower Hospital08-24-2022 Miscellaneous Notes* Telephone Encounter - Dhara Jimenez [...] feet and forgetful attimes. 5. SEVERITY: Mild-states "it's not that bad". Does not want to go to ER. 6. : no Protocols used: Medication Question [id number] documented in this encounterPromedica Flower Hospital07-23-2022 Miscellaneous Notes* Telephone Encounter - Felecia Cruz LPN - 06/06/2022 8:42 AM EDT Images from the original note were not included. Prior authorization approved Payer: [employer] [phone] CaseId:[id number];Status:Approved;Review Type:Prior Auth;Coverage Start Date:05/22/2022;Coverage End Date:06/05/2023; Approval Details Authorized from May 22, 2022 to June 05, 2023 Pharmacy notified. * Telephone Encounter - Felecia Cruz LPN - 06/05/2022 2:41 PM EDT Electronic PA completed for solifenacin. documented in this encounterPromedica Flower Hospital07-20-2022 Miscellaneous Notes* Telephone Encounter - Alee Brown [...] to pharmacy Shavon Flannery documented in this encounterPromedica Flower Hospital07-18-2022 Miscellaneous Notes* Telephone Encounter - Ptasy Guthrie LPN - 06/01/2022 10:25 AM EDT Summer with [facility] calls to request pt's last OV notes to confirm why pt is requesting an appt with their office. OV notes faxed to: [phone] as requested. Patsy Guthrie LPN documented in this encounterPromedica Flower Hospital06-23-2022 History of Present illness Narrative* Fitz Walters MD - 05/07/2022 2:06 PM EDT This note was created using Tango [employer]. Subjective Yann Adair is a 86 year [...] normal. Fitz Walters MD documented in this encounterPromedica Flower Hospital06-01-2022 Miscellaneous Notes* Telephone Encounter - Alee Brown LPN - 04/15/2022 1:00 PM EDT Spoke to Patient, meds were escripted to [facility], 01/19/2022 for 1 year. Patient will check with pharmacy. Alee Brown LPN * Telephone Encounter - Eli Matamoros - 04/15/2022 11:30 AM EDT Patient has [...] to the pharmacy. Please call patient at: [phone]. Eli Matamoros documented in this encounterPromedica Flower Hospital04-27-2022 Miscellaneous Notes* Telephone Encounter - Liban Wu Ma - 03/11/2022 2:21 PM EDT Patient notified. Verbalized understanding. Liban Wu Ma * Telephone Encounter - Sandra Mahoney APRN.CNP - 03/11/2022 1:59 PM EDT She can try Tylenol or NSAID. If the pain doesn't improve with this or worsens she will need to be evaluated Sandra Mahoney APRN.CNP * Telephone Encounter - Ne Shen LPN [...] hip, leg. Please advise documented in this encounterPromedica Flower Hospital04-28-2016 History of Past illness Narrative* Problem Noted [...] of this encounter (statuses as of 03/11/2022) [facility] of Past illness Narrative* Problem Noted [...] of this encounter (statuses as of 03/17/2022) [facility] illness Narrative* Problem Noted [...] of this encounter (statuses as of 04/15/2022) [facility] Past illness Narrative* Problem Noted [...] of this encounter (statuses as of 05/07/2022) [facility] Narrative* Problem Noted [...] of this encounter (statuses as of 06/01/2022) [facility] illness Narrative* Problem Noted [...] of this encounter (statuses as of 06/03/2022) [facility] Narrative* Problem Noted [...] of this encounter (statuses as of 06/06/2022) [facility] Narrative* Problem Noted [...] of this encounter (statuses as of 07/08/2022) [facility] Narrative* Problem Noted [...] of this encounter (statuses as of 07/09/2022) [facility] Narrative* Problem Noted [...] of this encounter (statuses as of 07/16/2022) [facility] Narrative* Problem Noted [...] of this encounter (statuses as of 07/31/2022) [facility] Narrative* Problem Noted [...] of this encounter (statuses as of 08/10/2022) [facility] Narrative* Problem Noted [...] of this encounter (statuses as of 08/25/2022) [facility] Narrative* Problem Noted [...] of this encounter (statuses as of 08/28/2022) [facility] Narrative* Problem Noted [...] of this encounter (statuses as of 09/15/2022) [facility] Narrative* Problem Noted [...] of this encounter (statuses as of 09/17/2022) [facility] Narrative* Problem Noted [...] of this encounter (statuses as of 11/16/2022) [facility] Narrative* Problem Noted [...] of this encounter (statuses as of 02/04/2023) [facility] Narrative* Problem Noted [...] of this encounter (statuses as of 02/09/2023) [facility] Narrative* Problem Noted [...] of this encounter (statuses as of 02/10/2023) [facility] N[facility]ative* Problem Noted [...] of this encounter (statuses as of 02/12/2023) [facility] Narrative* Problem Noted [...] of this encounter (statuses as of 04/14/2023) [facility] Narrative* Problem Noted [...] of this encounter (statuses as of 05/05/2023) [facility] N[facility]ative* Problem Noted [...] of this encounter (statuses as of 05/18/2023) [facility] N[facility]ative* Problem Noted Date Diagnosed Date Resolved Date Adjustment disorder with mix ed anxiety and depressed mood 03/12/2016 10/31/2021 Pes planus of both feet 06/23/201507/2015 LGI bleed 10/24/2014 09/11/2015 Cellulitis and abscess [...] of this encounter (statuses as of 05/25/2023) [facility] Narrative* Problem Noted Date Diagnosed Date Resolved Date Adjustment disorder with mix ed anxiety and depressed mood 03/12/2016 10/31/2021 Pes planus of both feet 06/23/201507/2015 LGI bleed 10/24/2014 09/11/2015 Cellulitis and abscess [...] of this encounter (statuses as of 09/18/2023) [facility] Narrative* Problem Noted Date Diagnosed Date Resolved Date Adjustment disorder with mix ed anxiety and depressed mood 03/12/2016 10/31/2021 Pes planus of both feet 06/23/201507/2015 LGI bleed 10/24/2014 09/11/2015 Cellulitis and abscess [...] of this encounter (statuses as of 01/03/2024) [facility] N[facility]ative* Problem Noted Date Diagnosed Date Resolved Date Adjustment disorder with mix ed anxiety and depressed mood 03/12/2016 10/31/2021 Pes planus of both feet 06/23/201507/2015 LGI bleed 10/24/2014 09/11/2015 Cellulitis and abscess [...] of this encounter (statuses as of 01/14/2024) [facility] Narrative* Problem Noted Date Diagnosed Date Resolved Date Adjustment disorder with mix ed anxiety and depressed mood 03/12/2016 10/31/2021 Pes planus of both feet 06/23/201507/2015 LGI bleed 10/24/2014 09/11/2015 Cellulitis and abscess [...] of this encounter (statuses as of 02/19/2024) [facility] Narrative* Problem Noted [...] of this encounter (statuses as of 02/25/2024) [facility] note* Diagnosis Type 2 diabetes, controlled, with peripheral neuropathy (HCC) Type II or unspecified type diabetes mellitus with neurological manifestations, not stated as uncontrolled Essential hypertension Unspecified essential hypertension Hyperlipidemia, unspecified hyperlipidemia type documented in this encounter [facility] note* Diagnosis Type 2 diabetes, controlled, with peripheral neuropathy (HCC)- Primary Type II or unspecified type diabetes mellitus with neurological manifestations, not stated as uncontrolled Unsteady gait Abnormality of gait Urge incontinence of urine Urge incontinence Nocturia Hyperkalemia Hyperpotassemia documented in this encounter [facility] noteNo assessment information availableWSelect [facility] Work Phone: Evaluation note* Diagnosis Onset Date Resolution Status Abnormality of gait and mobility chronic Anemia chronic Mild cognitive impairment ch ronic Polyneuropathy chronic Vitamin d deficiency chronic Neuropathy noneactive [facility] Work Phone: Evaluation note* Diagnosis Urge incontinence of urine Urge incontinence Nocturia documented in this encounter [facility] note* Diagnosis Urge incontinence of urine- Primary Urge incontinence Nocturia Medication side effects Unspecified adverse effect of unspecified drug, medicinal and biological substance Dysuria Need for COVID-19 vaccine documented in this encounter [facility] note* Diagnosis Hyperlipidemia, unspecified hyperlipidemia type Dysuria documented in this encounter [facility] note* Diagnosis Onychomycosis- Primary Dermatophytosis of nail [...] of both feet documented in this encounter [facility]* Diagnosis Type 2 diabetes, controlled, with peripheral neuropathy (HCC)- Primary Type II or unspecified type diabetes mellitus with neurological manifestations, not stated as uncontrolled Posterior tibial tendon dysfunction (PTTD) of right lower extremity documented in this encounter [facility]* Diagnosis Hypercalcemia- Primary documented in this encounter [facility]* Diagnosis Hypercalcemia- Primary documented in this encounter [facility]* Diagnosis Hypercalcemia- Primary [facility]* Diagnosis Medicare annual wellness visit, subsequent- Primary Routine general medical examination at a health care facility Encounter for immunization Need for other specified prophylactic vaccination against single bacterial disease documented in this encounter [facility]* Diagnosis Type 2 diabetes, controlled, with peripheral neuropathy (HCC) Type II or unspecified type diabetes mellitus with neurological manifestations, not stated as uncontrolled documented in this encounter [facility]* Diagnosis Onset Date Resolution Status Fatigue acute Abnormality of gait and mobility chronic Mild cognitive impairment ch ronic Polyneuropathy chronic Urinary frequency chronic [facility] Work Phone: Evaluation note* Diagnosis Urinary frequency- Primary Acute cystitis with hematuria Acute cystitis documented in this encounter [facility]* Diagnosis Onset Date Resolution Status Fatigue acute Abnormality of gait and mobility chronic Mild cognitive impairment ch ronic Polyneuropathy chronic Urinary frequency chronic Hypercalcemia acute Fatigue acute [facility] Work Phone: Evaluation note* Diagnosis Type 2 diabetes, controlled, with peripheral neuropathy (HCC) Type II or unspecified type diabetes mellitus with neurological manifestations, not stated as uncontrolled Essential hypertension Unspecified essential hypertension documented in this encounter [facility]* Diagnosis Type 2 diabetes, controlled, with peripheral neuropathy (HCC)- Primary Type II or unspecified type diabetes mellitus with neurological manifestations, not stated as uncontrolled documented in this encounter [facility]* Diagnosis Type 2 diabetes, controlled, with peripheral neuropathy (HCC)- Primary Type II or unspecified type diabetes mellitus with neurological manifestations, not stated as uncontrolled Essential hypertension Unspecified essential hypertension Dysuria Generalized osteoarthrosis Generalized osteoarthrosis, unspecified site documented in this encounter [facility]* Diagnosis Onset Date Resolution Status Hypercalcemia acute Fatigue acute Abnormality of gait and mobility chronic Polyneuropathy chronic [facility] Work Phone: Evaluation note* Diagnosis Onset Date Resolution Status Abnormality of gait and mobility chronic Polyneuropathy [facility] Work Phone: Evaluation note* Diagnosis Onychomycosis- Primary Dermatophytosis of nail Pain in toe of right foot Pain in limb Pain in toe of left foot Pain in limb Type 2 diabetes, controlled, with peripheral neuropathy (HCC) Type II or unspecified type diabetes mellitus with neurological manifestations, not stated as uncontrolled [facility] Onychomycosis- Primary Dermatophytosis of nail Pain in toe of right foot Pain in limb Pain in toe of left foot Pain in limb Type 2 diabetes, controlled, with peripheral neuropathy (HCC) Type II or unspecified type diabetes mellitus with neurological manifestations, not stated as uncontrolled Callus of foot Corns and callosities [facility]* Diagnosis Type 2 diabetes, controlled, with peripheral neuropathy (HCC) Type II or unspecified type diabetes mellitus with neurological manifestations, not stated as uncontrolled [facility]* Diagnosis Hyperlipidemia, unspecified hyperlipidemia type [facility]* Diagnosis Essential hypertension Unspecified essential hypertension Type 2 diabetes, controlled, with peripheral neuropathy (HCC) Type II or unspecified type diabetes mellitus with neurological manifestations, not stated as uncontrolled [facility] Diagnosis Type 2 diabetes, controlled, with peripheral neuropathy (HCC)- Primary Type II or unspecified type diabetes mellitus with neurological manifestations, not stated as uncontrolled Essential hypertension Unspecified essential hypertension Hyperlipidemia, unspecified hyperlipidemia type 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) [facility]* Diagnosis Medicare annual wellness visit, subsequent- [...] single bacterial disease documented in this encounter [facility]* Diagnosis Onychomycosis- Primary Dermatophytosis of nail Pain in toe of right foot Pain in limb Pain in toe of left foot Pain in limb Type 2 diabetes, controlled, with peripheral neuropathy (HCC) Type II or unspecified type diabetes mellitus with neurological manifestations, not stated as uncontrolled Callus of foot Corns and callosities documented in this encounter [facility]* Diagnosis Hyperlipidemia, unspecified hyperlipidemia type Type 2 diabetes, controlled, with peripheral neuropathy (HCC) Type II or unspecified type diabetes mellitus with neurological manifestations, not stated as uncontrolled documented in this encounter [facility] note* Diagnosis Hyperlipidemia, unspecified hyperlipidemia type documented in this encounter [facility] note* Diagnosis Onset Date Resolution Status Admit Date Abnormality of gait and mobility chr onic April 17, 2025 1:52pm Mild cognitive impairment chronic April 17, 2025 1:52pm Polyneuropathy chronic April 17, 2025 1:52pm [facility] Work Phone: Evaluation note* Diagnosis Cellulitis of right lower extremity- Primary Cellulitis and abscess of leg, except foot Cat bite of right lower leg, initial encounter documented in this encounter [facility] note* Diagnosis History of gastroenteritis- Primary Personal history of other diseases of digestive system Encounter for immunization Need for other specified prophylactic vaccination against single bacterial disease History of encephalopathy Personal history of other disorders of nervous system and sense organs Hyponatremia Hyposmolality and/or hyponatremia Hypomagnesemia Disorders of magnesium metabolism Essential hypertension Unspecified essential hypertension Edema of both legs Edema Pressure injury of sacral region, stage 1 Muscular weakness Muscle weakness (generalized) Type 2 diabetes, controlled, with peripheral neuropathy (HCC) Type II or unspecified type diabetes mellitus with neurological manifestations, not stated as uncontrolled Blastocystis hominis Coccidiosis documented in this encounter [facility] note* Diagnosis Onychomycosis- Primary Dermatophytosis of nail Pain in toe of right foot Pain in limb Pain in toe of left foot Pain in limb Type 2 diabetes, controlled, with peripheral neuropathy (HCC) Type II or unspecified type diabetes mellitus with neurological manifestations, not stated as uncontrolled Callus of foot Corns and callosities documented in this encounter [facility] (narrative)No reason for referral information availableWSelect [facility] Work Phone: Advance Directives No Advanced Directives Records FoundDocuments on File Type Date Recorded Patient Baker Pie Expl anation Advance Directive(s) 01/09/2015 10:48 AM Advance Directive(s) 01/09/2015 10:52 AM Documents on File Type Date Recorded Patient Baker Pie Expl anation Advance Directive(s) 01/09/2015 10:48 AM Advance Directive(s) 01/09/2015 10:52 AM Documents on File Type Date Recorded Patient Baker Pie Expl anation Advance Directive(s) 01/09/2015 10:52 AM Advance Directive(s) 01/09/2015 10:48 AM Advance Directive Response Recorded Date/ Time Do you have a Healthcare Power of Replacer? Yes May 10, 2025 5:43pm Advance Directive Response Recorded Date/ Time Do you have a Healthcare Power of Replacer? Yes May 10, 2025 11:11pm Advance Directive Response Recorded Date/ Time Do you have a Healthcare Power of Replacer? Yes July 13, 2025 8:07pm Name of Medical Power of Replacer lefty roche July 13, 2025 8:07pm Do you have a Healthcare Power of Replacer? Yes May 10, 2025 11:11pm Advance Directive Response Recorded Date/ Time Do you have a Healthcare Power of Replacer? Yes July 14, 2025 1:56am Name of Medical Power of Replacer lefty roche July 13, 2025 8:07pm Do you have a Healthcare Power of Replacer? Yes May 10, 2025 11:11pm Documents on File Type Date Recorded Patient Baker Pie Expl anation Advance Directive(s) 01/09/2015 10:52 AM [...] 1:52pm Polyneuropathy April 17, 2025 1:52p m Chief Complaint Admit Date PAIN- COPY PCP January 19, 2025 12:4 7pm 1 Y FU April 17, 2025 1:52p m CAT SCRATCH May 10, 2025 7:17 pm INFECTED FELINE BITE, INTRACTABLE N/V Ju ne 2024 7:18pm Reason for Visit Admit Date Abnormality of gait and mobility April 1:52pm Mild cognitive impairment April 17, 2025 1:52pm Polyneuropathy April 17, 2025 1:52p m Urinary frequency April 17, 2025 1:52p m Acute hyponatremia May 10, 2025 7:18 pm Cat bite of right lower leg with infecti on May 10, 2025 7:18pm Cellulitis May 10, 2025 7:18 pm Chief Complaint Admit Date PAIN- COPY PCP January 19, 2025 12:4 7pm 1 Y FU April 17, 2025 1:52p m CAT SCRATCH May 10, 2025 7:17 pm INFECTED FELINE BITE, INTRACTABLE N/V Ju ne 2024 7:18pm INFECTED FELINE BITE, INTRACTABLE N/V Ju ne 2024 6:14pm Chief Complaint Admit Date 1 Y FU April 17, 2025 1:52p m CAT SCRATCH May 10, 2025 7:17 pm INFECTED FELINE BITE, INTRACTABLE N/V Ju ne 2024 7:18pm INFECTED FELINE BITE, INTRACTABLE N/V Ju ne 2024 6:14pm INFECTED FELINE BITE, INTRACTABLE N/V Ju ne 2024 10:36am PAIN- COPY PCP July 03, 2025 12 :34pm Chief Complaint Admit Date 1 Y FU April 17, 2025 1:52p m CAT SCRATCH May 10, 2025 7:17 pm INFECTED FELINE BITE, INTRACTABLE N/V Ju 2024 7:18pm INFECTED FELINE BITE, INTRACTABLE N/V Ju ne 2024 6:14pm INFECTED FELINE BITE, INTRACTABLE N/V Ju ne 2024 10:36am PAIN- COPY PCP July 03, 2025 12 :34pm alt loc July 14, 2025 1: 06am Reason for Visit Admit Date Abnormality of gait and mobility April 1:52pm Mild cognitive impairment April 17, 2025 1:52pm Polyneuropathy April 17, 2025 1:52p m Urinary frequency April 17, 2025 1:52p m Acute hyponatremia May 10, 2025 7:18 pm Cat bite of right lower leg with infecti on May 10, 2025 7:18pm Cellulitis May 10, 2025 7:18 pm Acute metabolic encephalopathy July 142024 1:06am Dehydration July 14, 2025 1: 06am Fever July 14, 2025 1: 06am Hyponatremia July 14, 2025 1: 06am Mild cognitive impairment July 14, 025 1:06am Chief Complaint Admit Date 1 Y April 17, 2025 1:52p m CAT SCRATCH May 10, 2025 7:17 pm INFECTED FELINE BITE, INTRACTABLE N/V Ju 2024 7:18pm INFECTED FELINE BITE, INTRACTABLE N/V Ju 2024 6:14pm INFECTED FELINE BITE, INTRACTABLE N/V Ju 2024 10:36am PAIN- COPY PCP July 03, 2025 12 :34pm HYPONATREMIA DEHYDRATION LOW GRADE FEVER & ACUTE July 14, 2025 12:52am HYPONATREMIA DEHYDRATION LOW GRADE FEVER & ACUTE July 14, 2025 9:20am HYPONATREMIA DEHYDRATION LOW GRADE FEVER & ACUTE July 15, 2025 9:12am HYPONATREMIA DEHYDRATION LOW GRADE FEVER & ACUTE July 16, 2025 4:39pm HYPONATREMIA DEHYDRATION LOW GRADE FEVER & ACUTE July 18, 2025 9:53am Reason for Visit Admit Date Abnormality of gait and mobility April 1:52pm Mild cognitive impairment April 17, 2025 1:52pm Polyneuropathy April 17, 2025 1:52p m Urinary frequency April 17, 2025 1:52p m Acute hyponatremia May 10, 2025 7:18 pm Cat bite of right lower leg with infecti on May 10, 2025 7:18pm Cellulitis May 10, 2025 7:18 pm Acute metabolic encephalopathy July 142024 12:52am Campylobacter gastroenteritis June 12:52am Colitis July 14, 2025 12 :52am Dehydration July 14, 2025 12 :52am Enteritis July 14, 2025 12 :52am Fever July 14, 2025 12 :52am Gastritis July 14, 2025 12 :52am Hypomagnesemia July 14, 2025 12 :52am Hyponatremia July 14, 2025 12 :52am Nausea and vomiting July 14, 2025 12 :52am Mild cognitive impairment July 14, 025 12:52am Reason for Referral Specialty Diagnoses / Procedures Referred By Contac t Referred To Contact Endocrinology Diagnoses Hypercalcemia Procedures CONSULT TO ENDOCRINOLOGY OFFICE/OUTPATIENT [facility] 60-74 MINUTES Older, RO Flores.[employer] [place] [address] Referral ID Status Reason Start Date Expiration Date Visits Requested Visits Authorized [id number] Authorized PCP Requested Referral 09/14/2023 1 1 Family History No Family History Records Found Relationship Condition Age at Onset Recorded Date/T irineo father Multiple gallstones Unknown Benign prostatic hyperplasia Unknown mother Alzheimer's dementia Unknown Summary Purpose Additional Source Comments Source Comments (unrecognize d section and content) In the event this informatio n is protected by the Federal Confidentiality of Alcohol and Drug Abuse Patient Records regulations: The Federal rules restrict any use of the information to criminally investigate or prosecute any alcohol or drug abuse patient.[facility] the event this information is protected by the Federal Confidentiality of Alcohol and Drug Abuse Patient Records regulations: The Federal rules restrict any use of the information to criminally investigate or prosecute any alcohol or drug abuse patient.[facility]In the event this information is protected by the Federal Confidentiality of Alcohol and Drug Abuse Patient Records regulations: The Federal rules restrict any use of the information to criminally investigate or prosecute any alcohol or drug abuse patient.[facility]In the event this information is protected by the Federal Confidentiality of Alcohol and Drug Abuse Patient Records regulations: The Federal rules restrict any use of the information to criminally investigate or prosecute any alcohol or drug abuse patient.[facility]In the event this information is protected by the Federal Confidentiality of Alcohol and Drug Abuse Patient Records regulations: The Federal rules restrict any use of the information to criminally investigate or prosecute any alcohol or drug abuse patient.[facility]In the event this information is protected by the Federal Confidentiality of Alcohol and Drug Abuse Patient Records regulations: The Federal rules restrict any use of the information to criminally investigate or prosecute any alcohol or drug abuse patient.[facility] HospitalIn the event this information is protected by the Federal Confidentiality of Alcohol and Drug Abuse Patient Records regulations: The Federal rules restrict any use of the information to criminally investigate or prosecute any alcohol or drug abuse patient.[facility] HospitalIn the event this information is protected by the Federal Confidentiality of Alcohol and Drug Abuse Patient Records regulations: The Federal rules restrict any use of the information to criminally investigate or prosecute any alcohol or drug abuse patient.[facility] HospitalIn the event this information is protected by the Federal Confidentiality of Alcohol and Drug Abuse Patient Records regulations: The Federal rules restrict any use of the information to criminally investigate or prosecute any alcohol or drug abuse patient.[facility]In the event this information is protected by the Federal Confidentiality of Alcohol and Drug Abuse Patient Records regulations: The Federal rules restrict any use of the information to criminally investigate or prosecute any alcohol or drug abuse patient.[facility] HospitalIn the event this information is protected by the Federal Confidentiality of Alcohol and Drug Abuse Patient Records regulations: The Federal rules restrict any use of the information to criminally investigate or prosecute any alcohol or drug abuse patient.[facility] HospitalIn the event this information is protected by the Federal Confidentiality of Alcohol and Drug Abuse Patient Records regulations: The Federal rules restrict any use of the information to criminally investigate or prosecute any alcohol or drug abuse patient.[facility] HospitalIn the event this information is protected by the Federal Confidentiality of Alcohol and Drug Abuse Patient Records regulations: The Federal rules restrict any use of the information to criminally investigate or prosecute any alcohol or drug abuse patient.[facility] HospitalIn the event this information is protected by the Federal Confidentiality of Alcohol and Drug Abuse Patient Records regulations: The Federal rules restrict any use of the information to criminally investigate or prosecute any alcohol or drug abuse patient.[facility] HospitalIn the event this information is protected by the Federal Confidentiality of Alcohol and Drug Abuse Patient Records regulations: The Federal rules restrict any use of the information to criminally investigate or prosecute any alcohol or drug abuse patient.[facility] HospitalIn the event this information is protected by the Federal Confidentiality of Alcohol and Drug Abuse Patient Records regulations: The Federal rules restrict any use of the information to criminally investigate or prosecute any alcohol or drug abuse patient.[facility] HospitalIn the event this information is protected by the Federal Confidentiality of Alcohol and Drug Abuse Patient Records regulations: The Federal rules restrict any use of the information to criminally investigate or prosecute any alcohol or drug abuse patient.[facility] HospitalIn the event this information is protected by the Federal Confidentiality of Alcohol and Drug Abuse Patient Records regulations: The Federal rules restrict any use of the information to criminally investigate or prosecute any alcohol or drug abuse patient.[facility] HospitalIn the event this information is protected by the Federal Confidentiality of Alcohol and Drug Abuse Patient Records regulations: The Federal rules restrict any use of the information to criminally investigate or prosecute any alcohol or drug abuse patient.[facility] HospitalIn the event this information is protected by the Federal Confidentiality of Alcohol and Drug Abuse Patient Records regulations: The Federal rules restrict any use of the information to criminally investigate or prosecute any alcohol or drug abuse patient.[facility] HospitalIn the event this information is protected by the Federal Confidentiality of Alcohol and Drug Abuse Patient Records regulations: The Federal rules restrict any use of the information to criminally investigate or prosecute any alcohol or drug abuse patient.[facility] HospitalIn the event this information is protected by the Federal Confidentiality of Alcohol and Drug Abuse Patient Records regulations: The Federal rules restrict any use of the information to criminally investigate or prosecute any alcohol or drug abuse patient.[facility] HospitalIn the event this information is protected by the Federal Confidentiality of Alcohol and Drug Abuse Patient Records regulations: The Federal rules restrict any use of the information to criminally investigate or prosecute any alcohol or drug abuse patient.[facility] HospitalIn the event this information is protected by the Federal Confidentiality of Alcohol and Drug Abuse Patient Records regulations: The Federal rules restrict any use of the information to criminally investigate or prosecute any alcohol or drug abuse patient.[facility] HospitalIn the event this information is protected by the Federal Confidentiality of Alcohol and Drug Abuse Patient Records regulations: The Federal rules restrict any use of the information to criminally investigate or prosecute any alcohol or drug abuse patient.[facility] HospitalIn the event this information is protected by the Federal Confidentiality of Alcohol and Drug Abuse Patient Records regulations: The Federal rules restrict any use of the information to criminally investigate or prosecute any alcohol or drug abuse patient.[facility] HospitalIn the event this information is protected by the Federal Confidentiality of Alcohol and Drug Abuse Patient Records regulations: The Federal rules restrict any use of the information to criminally investigate or prosecute any alcohol or drug abuse patient.[facility] HospitalIn the event this information is protected by the Federal Confidentiality of Alcohol and Drug Abuse Patient Records regulations: The Federal rules restrict any use of the information to criminally investigate or prosecute any alcohol or drug abuse patient.[facility] HospitalIn the event this information is protected by the Federal Confidentiality of Alcohol and Drug Abuse Patient Records regulations: The Federal rules restrict any use of the information to criminally investigate or prosecute any alcohol or drug abuse patient.[facility] HospitalIn the event this information is protected by the Federal Confidentiality of Alcohol and Drug Abuse Patient Records regulations: The Federal rules restrict any use of the information to criminally investigate or prosecute any alcohol or drug abuse patient.[facility] HospitalIn the event this information is protected by the Federal Confidentiality of Alcohol and Drug Abuse Patient Records regulations: The Federal rules restrict any use of the information to criminally investigate or prosecute any alcohol or drug abuse patient.[facility] HospitalIn the event this information is protected by the Federal Confidentiality of Alcohol and Drug Abuse Patient Records regulations: The Federal rules restrict any use of the information to criminally investigate or prosecute any alcohol or drug abuse patient.[facility] HospitalIn the event this information is protected by the Federal Confidentiality of Alcohol and Drug Abuse Patient Records regulations: The Federal rules restrict any use of the information to criminally investigate or prosecute any alcohol or drug abuse patient.[facility] HospitalIn the event this information is protected by the Federal Confidentiality of Alcohol and Drug Abuse Patient Records regulations: The Federal rules restrict any use of the information to criminally investigate or prosecute any alcohol or drug abuse patient.[facility] HospitalIn the event this information is protected by the Federal Confidentiality of Alcohol and Drug Abuse Patient Records regulations: The Federal rules restrict any use of the information to criminally investigate or prosecute any alcohol or drug abuse patient.[facility] HospitalIn the event this information is protected by the Federal Confidentiality of Alcohol and Drug Abuse Patient Records regulations: The Federal rules restrict any use of the information to criminally investigate or prosecute any alcohol or drug abuse patient.[facility] HospitalIn the event this information is protected by the Federal Confidentiality of Alcohol and Drug Abuse Patient Records regulations: The Federal rules restrict any use of the information to criminally investigate or prosecute any alcohol or drug abuse patient.[facility] HospitalIn the event this information is protected by the Federal Confidentiality of Alcohol and Drug Abuse Patient Records regulations: The Federal rules restrict any use of the information to criminally investigate or prosecute any alcohol or drug abuse patient.[facility] HospitalIn the event this information is protected by the Federal Confidentiality of Alcohol and Drug Abuse Patient Records regulations: The Federal rules restrict any use of the information to criminally investigate or prosecute any alcohol or drug abuse patient.[facility] HospitalIn the event this information is protected by the Federal Confidentiality of Alcohol and Drug Abuse Patient Records regulations: The Federal rules restrict any use of the information to criminally investigate or prosecute any alcohol or drug abuse patient.[facility] HospitalIn the event this information is protected by the Federal Confidentiality of Alcohol and Drug Abuse Patient Records regulations: The Federal rules restrict any use of the information to criminally investigate or prosecute any alcohol or drug abuse patient.[facility] Reason for Visit (unrecogniz ed section and [...] Comments Results Reason Comments Results Reason Comments [facility] requesting rec ords Reason Comments Medicare Wellness Exam Specialty Diagnoses / Procedures Referred By Contac t Referred To Contact Internal Medicine / INTERNAL MEDICINE Diagnoses Follow-up exam, 3-6 months since previous exam Annual Medicare Wellness w/6 month follow-up Procedures OFFICE/OUTPATIENT ESTABLISHED MOD MDM 30-39 MIN 4C EST WELL Fitz Walters MD [address] [place] [address] Sandra Mahoney APRN.CNP [address] [place] [address] Referral ID Status Reason Start Date Expiration Date V isits Requested Visits Authorized [id number] Authorized 11/10/2022 02/08/2023 3 3 Reason Comments [...] Specialty Diagnoses / Procedures Referred By Lucille t Referred To Contact Internal Medicine / INTERNAL MEDICINE Diagnoses Follow-up exam, 3-6 months since previous exam Annual Medicare Wellness/6 month follow-up Procedures OFFICE/OUTPATIENT ESTABLISHED HIGH MDM 40 MIN 4C EST WELL Sandra Coombs, TURN LASTER.[employer] [address] [place] [address] Sandra Coombs, T[employer] LASTER.[employer] [address] [place] [address] Referral ID Status Reason Start Date Expiration Date V isits Requested Visits Authorized [id number] Authorized 11/14/2024 11/14/2025 99 99 Reason Comments Established Patient Nail Care Pain Nail Care Reason Onset Date Comments Refill Request 02/05/2025 Reason Onset Date Comments Refill Request 04/02/2025 Reason Comments Hospital F/U Cat bite right lower leg Reason Comments Hospital F/U Care Teams (unrecognized sec tion and content) Bass String Winder Relationship Specialty Start Date End Date Fitz Walters MD [address] [place], [place] [id number] PCP - General 09/08/02 Bass String Winder Relationship Specialty Start Date End Date Fitz Walters MD [address] [place], [place] [id number] PCP - General 09/08/02 Bass String Winder Relationship Specialty Start Date End Date Fitz Walters MD [address] [place], [place] [id number] PCP - General 09/08/02 Bass String Winder Relationship Specialty Start Date End Date Fitz Walters MD [address] [facility] [place] [address] PCP - General 09/08/02 Bass String Winder Relationship Specialty Start Date End Date Fitz Walters MD [address] [facility] [place] [address] PCP - General 09/08/02 Bass String Winder Relationship Specialty Start Date End Date Fitz Walters MD [address] [facility] [place] [address] PCP - General 09/08/02 Bass String Winder Relationship Specialty Start Date End Date Fitz Walters MD [address] [facility] [place] [address] PCP - General 09/08/02 Bass String Winder Relationship Specialty Start Date End Date Fitz Walters MD [address] [facility] [place] [address] PCP - General 09/08/02 Bass String Winder Relationship Specialty Start Date End Date Fitz Walters MD [address] [facility] [place] [address] PCP - General 09/08/02 Bass String Winder Relationship Specialty Start Date End Date Fitz Walters MD [address] [facility] [place] [address] PCP - General 09/08/02 Bass String Winder Relationship Specialty Start Date End Date Fitz Walters MD [address] [facility] [place] [address] PCP - General 09/08/02 Bass String Winder Relationship Specialty Start Date End Date Fitz Walters MD [address] [facility] [place] [address] PCP - General 09/08/02 Team Status: Active [...] Cantu MD Attending Provider, Referring Provider Active Bass String Winder Relationship Specialty Start Date End Date Fitz Walters MD [address] [place] [address] PCP - General 09/08/02 Team Status: Inactive Member Role Status Dates Dr. Fitz Walters MD Primary Care Provider, Refer ring Provider Active Dr. Liban Leiva MD Attending Provider Active Bass String Winder Relationship Specialty Start Date End Date Fitz Walters MD [address] [place] [address] PCP - General 09/08/02 Bass String Winder Relationship Specialty Start Date End Date Fitz Walters MD [address] [place] [address] PCP - General 09/08/02 Bass String Winder Relationship Specialty Start Date End Date Fitz Walters MD [address] [place] [address] PCP - General 09/08/02 Bass String Winder Relationship Specialty Start Date End Date Fitz Walters MD [address] [place] [address] PCP - General 09/08/02 Bass String Winder Relationship Specialty Start Date End Date Fitz Walters MD [address] [place] [address] PCP - General 09/08/02 Bass String Winder Relationship Specialty Start Date End Date Fitz Walters MD [address] [place] [address] PCP - General 09/08/02 Team Status: Inactive Member Role Status Dates Dr. Fitz Walters MD Primary Care Provider Active Dr. Laurence Hinds MD Attending Provider Active Bass String Winder Relationship Specialty Start Date End Date Fitz Walters MD [address] [place] [address] PCP - General 09/08/02 Bass String Winder Relationship Specialty Start Date End Date Fitz Walters MD [address] [place] [address] PCP - General 09/08/02 Bass String Winder Relationship Specialty Start Date End Date Fitz Walters MD [address] [place] [address] PCP - General 09/08/02 Bass String Winder Relationship Specialty Start Date End Date Fitz Walters MD [address] [place] [address] PCP - General 09/08/02 Sandra Coombs, T[employer] LASTER.[employer]TER [address] [place] [address] Disc Inspector Internal Medicine 10/23/24 Bass String Winder Relationship Specialty Start Date End Date Fitz Walters MD [address] [place] [address] PCP - General 09/08/02 Sandra Coombs, T[employer] LASTER.[employer]TER [address] [facility], [place] [address] [facility] Internal Medicine 10/23/24 Bass String Winder Relationship Specialty Start Date End Date Fitz Walters MD [address] [place], [place] [id number] PCP - General 09/08/02 Sandra Coombs, TURN LASTER.[employer]SETTER [address] [place], [place] [address] [facility] Internal Medicine 10/23/24 Team Status: Inactive Member [...] January 19, 2025 End: January 19, 2025 Bass String Winder Relationship Specialty Start Date End Date Fitz Walters MD [address] [facility], [place] [id number] PCP - General 09/08/02 Sandra Coombs, TURN LASTER.[employer]SETTER [address] [facility], [place] [address] [facility] Internal Medicine 10/23/24 Team Status: Active Member [...] 2025 End: April 17, 2025 Dr. Laurence Hidns MD Attending Provider Active Start: April 17, [...] Referring Provider Active Start: April 17, 2025 Team Status: Active Member Role Status Dates Dr. Fitz Walters MD Primary Care Provider Active Start: May 10, 2025 Dr. Josseline Araujo DO Referring Provider Active Start: May 10, 2025 Dr. Josseline Araujo DO Emergency Provider Active Start: May 10, 2025 Dr. Misty Blanco MD Attending Provider Active Start: May 10, 2025 Team Status: Active Member Role Status Dates Dr. Fitz Walters MD Primary Care Provider Active Start: May 10, 2025 Dr. Josseline Araujo DO Referring Provider Active Start: May 10, 2025 Dr. Josseline Araujo DO Emergency Provider Active Start: May 10, 2025 Dr. Misty Blanco MD Admit Provider Active St art: May 10, 2025 Dr. Misty Blanco MD Attending Provider Active Start: May 10, 2025 Team Status: Active Member Role/Relationship Status Dates Dr. Fitz Walters MD Primary Care Provider Active Team Status: Inactive Member Role/Relationship Status Dates Dr. Fitz Walters MD Primary Care Provider Active Start: January 19, 2025 End: January 19, 2025 Dr. Laurence Hinds MD Attending Provider Active Start: January 19, 2025 End: January 19, 2025 Dr. Laurence Hinds MD Referring Provider Active Start: January 19, 2025 End: January 19, 2025 Team Status: Inactive Member Role/Relationship Status Dates Dr. Fitz Walters MD Primary Care Provider Active Start: April 17, 2025 End: April 17, 2025 Dr. Fitz Walters MD Referring Provider Active Start: April 17, 2025 End: April 17, 2025 Dr. Chong Cantu MD Attending Provider Active Start: April 17, 2025 End: April 17, 2025 Team Status: Inactive Member Role/Relationship Status Dates Dr. Fitz Walters MD Primary Care Provider Active Start: April 17, 2025 End: April 17, 2025 Dr. Laurence Hinds MD Attending Provider Active Start: April 17, 2025 End: April 17, 2025 Dr. Laurence Hinds MD Referring Provider Active Start: April 17, 2025 End: April 17, 2025 Team Status: Active Member Role/Relationship Status Dates Dr. Fitz Walters MD Primary Care Provider Active Start: May 10, 2025 Dr. Josseline Araujo DO Referring Provider Active Start: May 10, 2025 Dr. Josseline Araujo DO Emergency Provider Active Start: May 10, 2025 Dr. Misty Blanco MD Attending Provider Active Start: May 10, 2025 Team Status: Inactive Member Role/Relationship Status Dates Dr. Fitz Walters MD Primary Care Provider Active Start: May 10, 2025 End: May 12, 2025 Dr. Josseline Araujo DO Referring Provider Active Start: May 10, 2025 End: May 12, 2025 Dr. Josseline Araujo DO Emergency Provider Active Start: May 10, 2025 End: May 12, 2025 Dr. iMsty Balnco MD Admit Provider Active St art: May 10, 2025 End: May 12, 2025 Dr. Misty Blanco MD Other Provider Active St art: May 10, 2025 End: May 12, 2025 Dr. Benny Junior DO Attending Provider Active Start: May 10, 2025 End: May 12, 2025 Team Status: Active Member Role/Relationship Status Dates Dr. Fitz Walters MD Primary Care Provider Active Start: May 11, 2025 Dr. Josseline Araujo DO Referring Provider Active Start: May 11, 2025 Dr. Josseline Araujo DO Emergency Provider Active Start: May 11, 2025 Dr. Misty Blanco MD Admit Provider Active St art: May 11, 2025 Dr. Misty Blanco MD Other Provider Active St art: May 11, 2025 Dr. Benny Junior DO Attending Provider Active Start: May 11, 2025 Dr. Benny Junior DO Other Provider Active S tart: May 11, 2025 Bass String Winder Relationship Specialty Start Date End Date Fitz Walters MD [address] [place] [address] PCP - General 09/08/02 Sandra Coombs, [employer] [address] [place] [address] Disc Inspector Internal Medicine 10/23/24 Team Status: Inactive Member Role/Relationship Status Dates Dr. Fitz Walters MD Primary Care Provider Active Start: April 17, 2025 End: April 17, 2025 Dr. Fitz Walters MD Referring Provider Active Start: April 17, 2025 End: April 17, 2025 Dr. Chong Cantu MD Attending Provider Active Start: April 17, 2025 End: April 17, 2025 Team Status: Inactive Member Role/Relationship Status Dates Dr. Fitz Walters MD Primary Care Provider Active Start: April 17, 2025 End: April 17, 2025 Dr. Laurence Hinds MD Attending Provider Active Start: April 17, 2025 End: April 17, 2025 Dr. Laurence Hinds MD Referring Provider Active Start: April 17, 2025 End: April 17, 2025 Team Status: Active Member Role/Relationship Status Dates Dr. Fitz Walters MD Primary Care Provider Active Start: May 10, 2025 Dr. Josseline Araujo DO Emergency Provider Active Start: May 10, 2025 Dr. Misty Blanco MD Attending Provider Active Start: May 10, 2025 Team Status: Inactive Member Role/Relationship Status Dates Dr. Fitz Walters MD Primary Care Provider Active Start: May 10, 2025 End: May 12, 2025 Dr. Josseline Araujo DO Referring Provider Active Start: May 10, 2025 End: May 12, 2025 Dr. Josseline Araujo DO Emergency Provider Active Start: May 10, 2025 End: May 12, 2025 Dr. Misty Blanco MD Admit Provider Active St art: May 10, 2025 End: May 12, 2025 Dr. Misty Blanco MD Other Provider Active St art: May 10, 2025 End: May 12, 2025 Dr. Benny Junior DO Attending Provider Active Start: May 10, 2025 End: May 12, 2025 Team Status: Active Member Role/Relationship Status Dates Dr. Fitz Walters MD Primary Care Provider Active Start: May 11, 2025 Dr. Josseline Araujo DO Emergency Provider Active Start: May 11, 2025 Dr. Misty Blanco MD Admit Provider Active St art: May 11, 2025 Dr. Misty Blanco MD Other Provider Active St art: May 11, 2025 Dr. Benny Junior DO Attending Provider Active Start: May 11, 2025 Dr. Benny Junior DO Other Provider Active S tart: May 11, 2025 Team Status: Active Member Role/Relationship Status Dates Dr. Fitz Walters MD Primary Care Provider Active Start: May 12, 2025 Dr. Josseline Araujo DO Emergency Provider Active Start: May 12, 2025 Dr. Misty Blanco MD Admit Provider Active St art: May 12, 2025 Dr. Misty Blanco MD Other Provider Active St art: May 12, 2025 Dr. Benny Junior DO Attending Provider Active Start: May 12, 2025 Dr. Benny Junior DO Other Provider Active S tart: May 12, 2025 Team Status: Inactive Member Role/Relationship Status Dates Dr. Fitz Walters MD Primary Care Provider Active Start: July 03, 2025 End: July 03, 2025 Dr. Laurence Hinds MD Attending Provider Active Start: July 03, 2025 End: July 03, 2025 Dr. Laurence Hinds MD Referring Provider Active Start: July 03, 2025 End: July 03, 2025 Team Status: Active Member Role/Relationship Status Dates Dr. Fitz Walters MD Primary Care Provider Active Start: July 14, 2025 Dr. Luke Baez , Emergency Provider Active Start: July 14, 2025 Dr. Candido Quiroga , Admit Provider Active Start: July 14, 2025 Dr. Candido Quiroga DO Attending Provider Active Start: July 14, 2025 Team Status: Inactive Member Role/Relationship Status Dates Dr. Fitz Wlaters MD Primary Care Provider Active Start: July 14, 2025 End: July 18, 2025 Dr. Luke Baez , Emergency Provider Active Start: July 14, 2025 End: July 18, 2025 Dr. Candido Quiroga DO Admit Provider Active Start: July 14, 2025 End: July 18, 2025 Dr. Candido Quiroga DO Other Provider Active Start: July 14, 2025 End: July 18, 2025 Dr. Damian Garrison MD Other Provider Active Start: July 14, 2025 End: July 18, 2025 Dr. Benny Junior DO Attending Provider Active Start: July 14, 2025 End: July 18, 2025 Dr. Steve Alvarez DO Other Provider Active Start: July 14, 2025 End: July 18, 2025 Dr. Daniel Cox MD Other Provider Active Sta rt: July 14, 2025 End: July 18, 2025 Dr. Adrian Hanson DO Other Provider Active St art: July 14, 2025 End: July 18, 2025 MARISA Crowder Other Provider Active Start : July 14, 2025 End: July 18, 2025 MARISA Kern Other Provider Active St art: July 14, 2025 End: July 18, 2025 EVELIN Hebert Other Provider Active Star t: July 14, 2025 End: July 18, 2025 Team Status: Active Member Role/Relationship Status Dates Dr. Fitz Walters MD Primary Care Provider Active Start: July 14, 2025 Dr. Luke Baez , DO Emergency Provider Active Start: July 14, 2025 Dr. Candido Quiroga , DO Admit Provider Active Start: July 14, 2025 Dr. Candido Quiroga , DO Other Provider Active Start: July 14, 2025 Dr. Steve Alvarez , DO Attending Provider Active Start: July 14, 2025 Dr. Steve Alvarez , DO Other Provider Active Start: July 14, 2025 Team Status: Active Member Role/Relationship Status Dates Dr. Fitz Walters MD Primary Care Provider Active Start: July 15, 2025 Dr. Luke Baez , DO Emergency Provider Active Start: July 15, 2025 Dr. Candido Quiroga , DO Admit Provider Active Start: July 15, 2025 Dr. Candido Quiroga , DO Other Provider Active Start: July 15, 2025 Dr. Steve Alvarez , DO Attending Provider Active Start: July 15, 2025 Dr. Steve Alvarez , DO Other Provider Active Start: July 15, 2025 Dr. Damian Garrison MD Other Provider Active Start: July 15, 2025 Team Status: Active Member Role/Relationship Status Dates Dr. Fitz Walters MD Primary Care Provider Active Start: July 16, 2025 Dr. Luke Baez , DO Emergency Provider Active Start: July 16, 2025 Dr. Candido Quiroga , DO Admit Provider Active Start: July 16, 2025 Dr. Candido Quiroga , DO Other Provider Active Start: July 16, 2025 Dr. Damian Garrison MD Other Provider Active Start: July 16, 2025 Dr. Benny Junior , Attending Provider Active Start: July 16, 2025 Dr. Benny Junior , DO Other Provider Active S tart: July 16, 2025 Dr. Steve Alvarez , DO Other Provider Active Start: July 16, 2025 Team Status: Active Member Role/Relationship Status Dates Dr. Fitz Walters MD Primary Care Provider Active Start: July 18, 2025 Dr. Luke Baez , DO Emergency Provider Active Start: July 18, 2025 Dr. Candido Quiroga , DO Admit Provider Active Start: July 18, 2025 Dr. Candido Quiroga , DO Other Provider Active Start: July 18, 2025 Dr. Damian Garrison MD Other Provider Active Start: July 18, 2025 Dr. Benny Junior , DO Other Provider Active S tart: July 18, 2025 Dr. Steve Alvarez , DO Other Provider Active Start: July 18, 2025 Dr. Daniel Cox MD Other Provider Active Sta rt: July 18, 2025 Dr. Adrian Hanson , DO Other Provider Active St art: July 18, 2025 MARY CrowderC Other Provider Active Start : July 18, 2025 MARISA Kern Attending Provider Active Start: July 18, 2025 MARISA Kern Other Provider Active St art: July 18, 2025 EVELIN Hebert Other Provider Active Star t: July 18, 2025 Team Status: Active Member Role/Relationship Status Dates Dr. Fitz Walters MD Primary Care Provider Active Start: July 18, 2025 Dr. Adrian aHnson , DO Attending Provider Active Start: July 18, 2025 Bass String Winder Relationship Specialty Start Date End Date Fitz Walters MD [address] [place] [address] PCP - General 09/08/02 Sandra Coombs, [employer] [address] [place] [address] Disc Inspector Internal Medicine 10/23/24 Bass String Winder Relationship Specialty Start Date End Date Fitz Walters MD [address] [place] [address] PCP - General 09/08/02 Sandra Coombs, T[employer] [address] [place] [address] Disc Inspector Internal Medicine 10/23/24 Bass String Winder Relationship Specialty Start Date End Date Fitz Walters MD [address] [place] [address] PCP - General 09/08/02 Sandra Coombs, RO.FLAGSETTER [address] [place], [place] [address] Disc Inspector Internal Medicine 10/23/24 Bass String Winder Relationship Specialty Start Date End Date Fitz Walters MD [address] [place], [place] [id number] PCP - General 09/08/02 Sandra Coombs, RO.[employer] [address] [place], [place] [id number] Disc Inspector Internal Medicine 10/23/24 Goals (unrecognized section and content) Goals may [...] ized section and content) DATE CREATED AUTHOR 09/17/2025 [facility] DATE CREATED AUTHOR AUTHOR'S ORGANIZ ATION 09/27/2025 [facility] FOR RECORDS PERTAINING TO PATIENTS WHO [...] BE BASED ON THE PRIMARY CLINICAL RECORDS. [employer] provides no warranty or guarantee of the accuracy or completeness of information in this document.
[2025-10-02 22:19] LABS: CRP 3.25 mg/L (0.0-3.0)
[2025-10-02] MEDS: 0.9% Saline Lock 10 ML Syringe IV (22:26)
[2025-10-02] MEDS: 0.9% Normal Saline (250mL Bag) 250 ML 15 ML IV (22:26)
[2025-10-02] MEDS: Dorzolamide HCL/Timolol 10 ml Bottle 1 DRP EACH EYE (22:53)
[2025-10-02] MEDS: leucovorin 15 MG Tablet 20 MG PO (22:59)
[2025-10-03] VITALS (13 sets, daily range): BP systolic 94–164; BP diastolic 64–98; PULSE 76–90; RESP 18–22; TEMP 36.6–37.1; O2SAT 91–99; BMI 22.4; BMI 22.6
[2025-10-03] MEDS: MELATONIN 10 MG TABLET PO (00:21)
--- NOTE | 2025-10-03 06:09 | NURSING ---
left msg for dtr to request current medication list, and levocorvin & rocklatan from home.
[2025-10-03] MEDS: leucovorin 15 MG Tablet 20 MG PO (06:22)
[2025-10-03 07:25] LABS: Hematocrit 26.6 % (37-47); Hemoglobin 9.1 g/dL (12.0-15.0); Immature Granulocytes Count 0.010 X10^3/uL (0.0-0.0); Mean Corp Hgb Conc 34.2 g/dL (32-36); Mean Corpuscular Volume 84.7 fL (81-99); Mean Platelet Vol. 10.1 fl (6.2-12.0); NRBC Flagged by Analyzer 0 % (0-5); POSITIVE COUNT YES; RBC Distribution Width CV 13.9 % (11.6-14.6); RBC Distribution Width SD 43.1 fl (35.1-43.9); Red Blood Count 3.14 M/mm3 (4.2-5.4); White Blood Count 3.0 K/mm3 (4.4-11.0)
[2025-10-03 07:30] LABS: Platelet Count 5 K/mm3 (150-450)
[2025-10-03 08:14] LABS: AST(SGOT) 17 U/L (<=31); Alanine Aminotransfer ALT/SGPT 11 U/L (<=34); Albumin, Serum 3.8 g/dL (3.4-4.8); Alkaline Phosphatase 84 U/L (35-104); Anion Gap 8 (5-15); BUN 19 mg/dL (4-19); BUN/Creat Ratio 26.8 RATIO (10-20); Calcium,Total 9.4 mg/dL (7.6-11.0); Carbon Dioxide 22.0 mmol/L (21.0-32.0); Chloride 102 mmol/L (98-108); Estimated Creatinine Clearance 42.90 ml/min (50-250); Globulin 2.5 g/dL (2.2-4.2); Glucose 129 mg/dL (70-99); Magnesium 1.5 mg/dL (1.5-2.2); Potassium 4.4 mmol/L (3.3-5.1)
[2025-10-03] MEDS: Dorzolamide HCL/Timolol 10 ml Bottle 1 DRP EACH EYE ×2 (09:58→22:19)
[2025-10-03] MEDS: leucovorin 15 MG Tablet PO ×2 (14:18→17:51)
--- NOTE | 2025-10-03 14:29 | CHAPLAIN ---
Type of Pastoral Visit _x__ Initial Visit ___ Follow-up Visit ___ On-call Visit ___ General Patient Visit ___ Spiritual Assessment ___ Family Conference ___ Bereavement ___ Rapid Response ___ Code Blue ___ Other (describe below) Pastoral Care Referral From _x__ Patient ___ Family ___ Nurse ___ Physician ___ Freelance Digital Project Manager ___ Shirt Bander ___ Other (describe below) Sacrament/Intervention _x__ Active listening ___ Anointing ___ Methodist ___ Bereavement ___ Communion ___ Anahi exploration ___ ___ Life review _x__ Prayer ___ Reconciliation ___ Sacrament of Sick _x__ Supportive presence ___ Wedding ___ Other (describe below) Pastoral Comments patient has been seen before and her health issues are reviewed; pt is given assurance of a welcome and of good care; pt receives that and agrees; pt says "this is just because I am getting older I guess"; pt is offered care and she says that "a prayer is the best thing one can do"; prayer is given
[2025-10-03] MEDS: Albuterol 2.5 MG/3 ML VIAL.NEB. INHALATION (17:22)
--- NOTE | 2025-10-03 17:54 | PN.HOSP_ITS ---
Reason for Visit Chief Complaint: Epistaxis Subjective Subjective Nasal packing left nare, reports if she tries to blow the other side of her nose she will have occasionally a little bit of bleeding, denies any other bleeding, does report some shortness of breath still and feeling somewhat generally unwell despite packed red blood cell transfusion Objective Data Objective Data Vital Signs: Vital Signs Temp Pulse Resp BP Pulse Ox O2 Del Method 98.2 F 86 20 H 112/98 H 91 Room Air 10/03/25 16:53 10/03/25 17:23 10/03/25 17:23 10/03/25 16:53 10/03/25 16:53 10/03/25 16:53 Oxygen Delivery Method Room Air Weight: 61.3 kg Body Mass Index (BMI) 22.4 Intake & Output: Intake and Output for Last 24 Hours 10/01/25 10/02/25 10/03/25 23:59 23:59 23:59 Intake Total 1305 / 1305 1314.75 / 1314.75 Output Total 1400 / 1400 Balance 1305 / 905 -85.25 / -85.25 Lab / Micro Data 10/03/25 07:09 10/03/25 07:09 Labs: Laboratory Results - last 24 hr 10/02/25 12:20: Diff Path Review March, ESR 5, C-React Prot Ext Range 3.25 H, Crossmatch See Detail 10/02/25 12:20: Crossmatch See Detail 10/02/25 18:05: Urine Color Yellow, Urine Clarity Cloudy, Urine pH 6.0, Ur Specific [place] 1.015, Urine Protein 30 H, Urine Glucose (UA) Normal, Urine Ketones Negative, Urine Occult Blood 50 H, Urine Nitrite Positive H, Urine Bilirubin Negative, Urine Urobilinogen 1 H, Ur Leukocyte Esterase 500 H, Urine RBC 0 SEEN, Urine WBC >100 SEEN, Ur Squamous Epith Cells 0 SEEN, Urine Bacteria 0 SEEN, Urine Mucus 0 SEEN 10/02/25 22:13: POC Glucose 133 H 10/03/25 05:31: WBC Cancelled, Corrected WBC Cancelled, RBC Cancelled, Hgb Cancelled, Hct Cancelled, MCV Cancelled, MCH Cancelled, MCHC Cancelled, RDW Std Deviation Cancelled, RDW Coeff of Swapnil Cancelled, Plt Count Cancelled, MPV Cancelled, Immature Gran % (Auto) Cancelled, Neut % (Auto) Cancelled, Lymph % (Auto) Cancelled, [place] % (Auto) Cancelled, Eos % (Auto) Cancelled, Baso % (Auto) Cancelled, Absolute Neuts (auto) Cancelled, Absolute Lymphs (auto) Cancelled, Total Counted Cancelled, Neutrophils % (Manual) Cancelled, Band Neutrophils % Cancelled, Lymphocytes % (Manual) Cancelled, Monocytes % (Manual) Cancelled, Eosinophils % (Manual) Cancelled, Basophils % (Manual) Cancelled, Metamyelocytes % Cancelled, Myelocytes % Cancelled, Promyelocytes % Cancelled, Blast Cells % Cancelled, Plasma Cell % (Manual) Cancelled, Other Cells % Cancelled, Nucleated RBC % Cancelled, Nucleated RBCs/100 WBC Cancelled, Differential Comment Cancelled, Diff Path Review Cancelled, Hypersegmented Neuts Cancelled, Atypical Lymphocytes Cancelled, Reactive Lymphocytes Cancelled, Smudge Cells Cancelled, Toxic Granulation Cancelled, Toxic Vacuolation Cancelled, Dohle Bodies Cancelled, Kelsey Rods Cancelled, Platelet Estimate Cancelled, Plt Morphology Comment Cancelled, RBC Morphology Cancelled 10/03/25 05:31: RBC Morphology Cancelled, Polychromasia Cancelled, Hypochromasia Cancelled, Basophilic Stippling Cancelled, Anisocytosis Cancelled, Microcytosis Cancelled, Macrocytosis Cancelled, Spherocytes Cancelled, Sickle Cells Cancelled, Target Cells Cancelled, Tear Drop Cells Cancelled, Ovalocytes Cancelled, Stomatocytes Cancelled, [place] Bodies Cancelled, [place] Cells Cancelled, Bite Cells Cancelled, Crenated Cell Cancelled, Acanthocytes (Spur) Cancelled, Rouleaux Cancelled, Schistocytes Cancelled, Sodium Cancelled, Potassium Cancelled, Chloride Cancelled, Carbon Dioxide Cancelled, Anion Gap Cancelled, BUN Cancelled, Creatinine Cancelled, Estim Creat Clear Calc Cancelled, Est GFR (MDRD) Non-Af Cancelled, BUN/Creatinine Ratio Cancelled, Glucose Cancelled, Calcium Cancelled, Phosphorus Cancelled, Magnesium Cancelled, Total Bilirubin Cancelled, AST Cancelled, ALT Cancelled, Alkaline Phosphatase Cancelled, Total Protein Cancelled, Albumin Cancelled, Globulin Cancelled, Albumin/Globulin Ratio Cancelled 10/03/25 06:30: POC Glucose 125 H 10/03/25 07:09: WBC 3.0 L, RBC 3.14 L, Hgb 9.1 L, Hct 26.6 L, MCV 84.7, MCH 29.0, MCHC 34.2, RDW Std Deviation 43.1, RDW Coeff of Swapnil 13.9, Plt Count 5 L*, MPV 10.1, Immature Gran % (Auto) 0.300, Neut % (Auto) 52.0, Lymph % (Auto) 32.7, [place] % (Auto) 14.3 H, Eos % (Auto) 0.7, Baso % (Auto) 0.0, Absolute Neuts (auto) 1.6 L, Absolute Lymphs (auto) 0.98, Nucleated RBC % 0, Sodium 132 L, Potassium 4.4, Chloride 102, Carbon Dioxide 22.0, Anion Gap 8, BUN 19, Creatinine 0.69 L, Estim Creat Clear Calc 42.90 L, Est GFR (MDRD) Non-Af 83, BUN/Creatinine Ratio 26.8 H, Glucose 129 H, Calcium 9.4, Phosphorus 3.0, Magnesium 1.5, Total Bilirubin 0.97, AST 17, ALT 11, Alkaline Phosphatase 84, Total Protein 6.2, Albumin 3.8, Globulin 2.5, Albumin/Globulin Ratio 1.5 10/03/25 11:46: POC Glucose 122 H 10/03/25 16:16: POC Glucose 176 H Micro: Microbiology 10/02/25 18:05 Urine, Clean Catch Urine Culture - Preliminary GNR lactose asic design engineer Physical Exam Narrative General: Alert, appears tired HEENT: Atraumatic, has packing in left nare Eyes: Anicteric, normal conjunctiva, extraocular movements grossly intact Neck: Supple Respiratory: Somewhat diminished bilaterally Cardiovascular: Regular rate and rhythm GI: Soft, nontender, nondistended Extremities: No significant peripheral pitting edema Musculoskeletal: Moving all extremities Neuro: No overt focal neurological deficits Skin: Some petechiae Psych: Cooperative Assessment & Plan Assessment/Plan (1) Epistaxis: (2) Abnormal finding on urinalysis: (3) Generalized weakness: PLAN: Plan # Pancytopenia - Patient presented yesterday to the ED with a white count of 2.5, hemoglobin of 6.1 and a platelet count of 7, earlier in the month had a white count of 2.4, hemoglobin 8.8 and a platelet count of 25 - In the ED she was given platelets and 2 units packed red blood cells, this a.m. hemoglobin 9.1 but platelet count 5 - Hematology consulted, discussed with them, flow cytometry and bone marrow biopsy recommended, orders placed for these, recommended to transfuse platelets if platelets are below 5 or if patient bleeding, given platelets are at 5 and she still had some oozing around her packing more platelets were ordered, repeat in the a.m. - Further management pending workup # Epistaxis - Rhino Rocket placed in left nare - Will keep in place for now, a.m. platelets 5 - Depending on how long patient needs admitted may depend on need for ENT involvement if platelets remain low and patient has further bleeding - At this time however will keep in place and monitor # Suspected UTI - Dysuria and abnormal UA - Preliminary culture growing gram-negative rods greater than 100,000 - Continue Rocephin #Type 2 diabetes mellitus -Glucose checks and sliding scale insulin #Hypertension - Losartan continued # History of RA - Methotrexate on hold on an outpatient basis due to concern that this may have led to some of the blood dyscrasias - Patient is on leucovorin, this has been continued #DVT ppx: SCDs Shirin Saucedo MD Charges/Coding Visit Charges Inpatient E&M: 07551 Subs Hosp L2
[2025-10-03] MEDS: 0.9% Saline Lock 10 ML Syringe IV (20:27)
[2025-10-03] MEDS: NETARSUDIL MESYLAT/LATANOPROST 2.5 ML DROPS 1 DRP OPHTHALMIC (22:19)
[2025-10-04] VITALS (11 sets, daily range): BP systolic 95–143; BP diastolic 65–96; PULSE 70–121; RESP 16–19; TEMP 36.3–36.9; O2SAT 93–97
[2025-10-04 06:44] LABS: Hematocrit 27.6 % (37-47); Hemoglobin 9.3 g/dL (12.0-15.0); Immature Granulocytes Count 0.040 X10^3/uL (0.0-0.0); Mean Corp Hgb Conc 33.7 g/dL (32-36); Mean Corpuscular Volume 83.6 fL (81-99); Mean Platelet Vol. 9.1 fl (6.2-12.0); NRBC Flagged by Analyzer 0 % (0-5); POSITIVE COUNT YES; RBC Distribution Width CV 13.7 % (11.6-14.6); RBC Distribution Width SD 42.2 fl (35.1-43.9); Red Blood Count 3.30 M/mm3 (4.2-5.4); White Blood Count 5.0 K/mm3 (4.4-11.0)
[2025-10-04 06:45] LABS: Differential Indicated SCAN CRITERIA MET
[2025-10-04 07:03] LABS: Anion Gap 10 (5-15); BUN 12 mg/dL (4-19); BUN/Creat Ratio 19.6 RATIO (10-20); Calcium,Total 9.5 mg/dL (7.6-11.0); Carbon Dioxide 22.9 mmol/L (21.0-32.0); Chloride 96 mmol/L (98-108); Estimated Creatinine Clearance 42.90 ml/min (50-250); Glucose 169 mg/dL (70-99); Potassium 4.1 mmol/L (3.3-5.1)
[2025-10-04 07:12] LABS: Differential Comment SCANNED
[2025-10-04 07:17] LABS: Platelet Count 3 K/mm3 (150-450)
[2025-10-04] MEDS: 0.9% Saline Lock 10 ML Syringe IV (10:27)
[2025-10-04] MEDS: Dorzolamide HCL/Timolol 10 ml Bottle 1 DRP EACH EYE ×2 (10:33→21:00)
--- NOTE | 2025-10-04 16:07 | PN.HOSP_ITS ---
Reason for Visit Chief Complaint: Epistaxis Subjective Subjective Evaluated patient with family members at bedside, her daughter who is also her power of foil stamp operator and her son-in-law. Patient feels about the same, denying any shortness of breath, slightly bothered by the Rhino Rocket in her left nare. Objective Data Objective Data Vital Signs: Vital Signs Temp Pulse Resp BP Pulse Ox O2 Del Method 98 F 81 19 H 141/66 H 93 Room Air 10/04/25 12:05 10/04/25 12:05 10/04/25 12:05 10/04/25 12:05 10/04/25 12:05 10/04/25 14:45 Oxygen Delivery Method Room Air Weight: 61.8 kg Body Mass Index (BMI) 22.6 Intake & Output: Intake and Output for Last 24 Hours 10/02/25 10/03/25 10/04/25 23:59 23:59 23:59 Intake Total 1305 / 1305 1914.75 / 1914.75 411 / 411 Output Total 1400 / 2150 2450 / 2450 Balance 1305 / 905 514.75 / -235.25 -2039 / -2039 Lab / Micro Data 10/04/25 05:36 10/04/25 05:36 Labs: Laboratory Results - last 24 hr 10/03/25 16:16: POC Glucose 176 H 10/03/25 22:23: POC Glucose 135 H 10/04/25 05:36: WBC 5.0, RBC 3.30 L, Hgb 9.3 L, Hct 27.6 L, MCV 83.6, MCH 28.2, MCHC 33.7, RDW Std Deviation 42.2, RDW Coeff of Swapnil 13.7, Plt Count 3 L*, MPV 9.1, Immature Gran % (Auto) 0.800, Neut % (Auto) 66.6, Lymph % (Auto) 18.9 L, M marc % (Auto) 13.3 H, Eos % (Auto) 0.2, Baso % (Auto) 0.2, Absolute Neuts (auto) 3.3, Absolute Lymphs (auto) 0.94, Nucleated RBC % 0, Differential Comment SCANNED, Sodium 129 L, Potassium 4.1, Chloride 96 L, Carbon Dioxide 22.9, Anion Gap 10, BUN 12, Creatinine 0.61 L, Estim Creat Clear Calc 42.90 L, Est GFR (MDRD) Non-Af 85, BUN/Creatinine Ratio 19.6, Glucose 169 H, Calcium 9.5 10/04/25 06:40: POC Glucose 176 H 10/04/25 12:24: POC Glucose 205 H Micro: Microbiology 10/02/25 18:05 Urine, Clean Catch Urine Culture - Final Klebsiella pneumoniae sp pneum Physical Exam Narrative General: Alert, no acute distress HEENT: Atraumatic, has packing in left nare Eyes: Anicteric, normal conjunctiva, extraocular movements grossly intact Neck: Supple Respiratory: No overt wheezes or rhonchi, no acute respiratory distress Cardiovascular: Regular rate and rhythm GI: Soft, nontender, nondistended Extremities: No significant peripheral pitting edema Musculoskeletal: Moving all extremities Neuro: No overt focal neurological deficits Psych: Cooperative Assessment & Plan Assessment/Plan (1) Epistaxis: (2) Abnormal finding on urinalysis: (3) Generalized weakness: PLAN: Plan # Pancytopenia - Patient presented yesterday to the ED with a white count of 2.5, hemoglobin of 6.1 and a platelet count of 7, earlier in the month had a white count of 2.4, hemoglobin 8.8 and a platelet count of 25 - In the ED she was given platelets and 2 units packed red blood cells, this a.m. hemoglobin 9.1 but platelet count 5 - Hematology consulted, discussed with them, flow cytometry and bone marrow biopsy recommended, orders placed for these, recommended to transfuse platelets if platelets are below 5 or if patient bleeding, given platelets are at 5 and she still had some oozing around her packing more platelets were ordered, repeat in the a.m. - Further management pending workup -10/04: White count 5 today, hemoglobin 9.3, platelets of 3. Further platelet transfusion ordered. Bone marrow biopsy scheduled for the a.m., will type and hold platelets to be given before the bone marrow biopsy. Discussed this and the reason for this at length with patient and family members at bedside and they verbalized their understanding. Discussed the low platelet count and the implications of that and that there are increased risks of bleeding with procedures but that this is the next step if we are pursuing the diagnosis and management. Did discuss the option of palliative measures and treating patient symptomatically while not pursuing further testing and diagnosis however patient and her family members would like to proceed with bone marrow biopsy. Discussed that flow cytometry was already sent off. Further recommendations pending additional workup. Discussed hematology that bone marrow biopsy would be tomorrow. # Epistaxis - Rhino Rocket placed in left nare - Will keep in place for now, a.m. platelets 5 - Depending on how long patient needs admitted may depend on need for ENT involvement if platelets remain low and patient has further bleeding - At this time however will keep in place and monitor -10/04: Platelets further decreased today, pending a.m. labs and clinical status we may need ENT consult due to concerns the patient will have bleeding when the nasal packing is removed but it cannot stay in for a prolonged period of time EITHER due to infection concerns # Suspected UTI–confirmed Klebsiella UTI - Dysuria and abnormal UA - Preliminary culture growing gram-negative rods greater than 100,000 - Continue Rocephin -10/04: Klebsiella pneumonia UTI, changed to Keflex with stop date #Type 2 diabetes mellitus -Glucose checks and sliding scale insulin -10/04: Glucose 205 this afternoon, patient refusing sliding scale insulin and overall glucoses have been in the 100s, given she is refusing this and she has very low platelets would like to minimize sticks if possible, will DC for now and monitor BMP glucoses or glucoses as needed #Hypertension - Losartan continued -10/04: Blood pressure variable, will continue present medications and monitor # History of RA - Methotrexate on hold on an outpatient basis due to concern that this may have led to some of the blood dyscrasias - Patient is on leucovorin, this has been continued -10/04: Continue leucovorin and holding methotrexate #DVT ppx: SCDs Shirin Saucedo MD Charges/Coding Visit Charges Inpatient E&M: 83841 Subs Hosp L2
--- NOTE | 2025-10-04 16:54 | ONC.CONSULT ---
Assessment & Plan Assessment/Plan (1) Pancytopenia: Status: Acute Code(s): D61.818 - Other pancytopenia Plan: R/O Methotrexate induced bone marrow failure. Suggest Bone marrow aspiration and biopsy. Will follow after the results are available. 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 Suggest trying IVIG 1g/kg daily x 2 days which will increase PLT quickly. Will also try Solumedrol 1g daily x2 days. HPI Consult Data Date of Service:: 10/04/25 PCP / Referring Provider: Dr. Fitz Walters MD Attending: Dr. Shirin Saucedo MD Chief Complaint Chief Complaint: Asked to see patient for pancytopenia. History of Present Illness History of Present Illness: 89-year-old woman with history of rheumatoid arthritis, she was on treatment with methotrexate till she was found to have pancytopenia somewhere in the attic pocked of September so it was discontinued. She was admitted on 10/02/2025 with epistaxis and had left nostril was packed. She had pancytopenia so was given packed RBC and platelets in the ER and admitted to the hospital.. 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?: Yes [facility] Medical History Campylobacter gastroenteritis Gastritis Enteritis Colitis Hypomagnesemia Acute metabolic encephalopathy Fever Dehydration Hyponatremia Nausea and vomiting Mild cognitive impairment Acute hyponatremia Cellulitis Cat bite of right lower leg with infection Rheumatoid arthritis Former tobacco use HTN (hypertension) HLD (hyperlipidemia) Irritable bowel syndrome (IBS) Hives High triglycerides Migraines Glaucoma Diabetes mellitus Cataracts, bilateral Arthritis Home Medications Medication Instructions Recorded Last Taken Type atorvastatin 10 mg tablet 10 mg PO QHS cholesterol 06/01/22 10/01/25 History metformin 500 mg tablet 500 mg PO BID diabetes 06/01/22 10/02/25 History ferrous sulfate 27 mg iron tablet 65 mg PO DAILY supplement 10/29/22 10/02/25 History folic acid 1 mg tablet 1 mg PO BID supplement 10/29/22 10/02/25 History losartan 25 mg tablet 25 mg PO DAILY blood pressure 10/29/22 10/02/25 History dorzolamide 22.3 mg-timolol 6.8 1 drp ophthalmic (eye) BID eye 05/10/25 10/02/25 History mg/mL eye drops health netarsudil 0.02 %-latanoprost 1 drp ophthalmic (eye) QHS eye 05/10/25 10/01/25 History 0.005 % eye drops (Rocklatan) health cyanocobalamin (vitamin B-12) 1,000 mcg PO DAILY vitamin #30 tabs 07/09/25 10/02/25 Rx 1,000 mcg tablet leucovorin calcium 10 mg tablet 20 mg (2 x 10 mg) PO Q6H ANEMIA 30 09/19/25 Unknown Rx days #240 tabs amoxicillin 500 mg tablet 500 mg PO TID #15 tabs 10/02/25 Unknown Rx methotrexate sodium 2.5 mg tablet 15 mg PO WE arthritis 10/02/25 Unknown History Allergy/AdvReac Type Severity Reaction Status Date / Time Sulfa (Sulfonamide AdvReac Intermediate Hives Verified 10/02/25 11:46 Antibiotics) Family History Father Gallstones BPH (benign prostatic hyperplasia) Mother Alzheimer dementia Surgical History History of bilateral tubal ligation History of bladder repair surgery Social History household members: family Smoking Status: Former smoker how long ago did patient quit smoking: Smoked 40 years, started 19 until quit, ~ 1 ppd. 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 seatbelt use: always ROS ENT HEENT: Denies dysphagia or hoarseness Cardiovascular Cardiovascular: Denies chest pain Respiratory/Chest Respiratory/Chest: Denies chest tightness or cough Gastrointestinal Gastrointestinal: Denies abdominal pain Genitourinary Genitourinary: Denies dysuria Musculoskeletal Musculoskeletal: Denies muscle weakness Integumentary Integumentary: Denies rash Neurologic Neurologic: Denies dizziness, focal weakness or headache(s) Psychiatric Psychiatric: Denies anxiety or depression Endocrine Endocrinology: Denies flushing or heat intolerance Hematologic/Lymphatic Hematologic/Lymphatic: Denies lymphadenopathy Physical Exam Const alert, oriented x3 and no apparent distress HEENT normocephalic Eyes PERRL, EOMs intact bilaterally and conjunctivae normal Neck no lymphadenopathy Lymph Lymphatic: no lymphadenopathy noted Resp clear to auscultation bilaterally Cardio regular rate, regular rhythm, S1 normal heart sound, S2 normal heart sound and no murmurs Extremity no clubbing, cyanosis or edema Skin no rashes or lesions noted Neuro CN's II-XII intact bilaterally and moves all extremities Psych mental status grossly normal Psych Narrative: hard of hearing, Vital Signs Temperature 98 F 10/04/25 12:05 Temperature Source Oral 10/04/25 12:05 Pulse Rate 81 10/04/25 12:05 Respiratory Rate 19 H 10/04/25 12:05 Respiratory Effort Normal, Non-Labored 10/04/25 14:45 Respiratory Depth Normal 10/04/25 14:45 Respiratory Pattern Normal 10/04/25 14:45 Blood Pressure 141/66 H 10/04/25 12:05 Blood Pressure Mean 91 10/04/25 12:05 Blood Pressure Source Monitor 10/04/25 12:05 Blood Pressure Position Sitting 10/04/25 12:05 Blood Pressure Location Left Arm 10/04/25 12:05 Pulse Ox 93 10/04/25 12:05 Oxygen Delivery Method Room Air 10/04/25 14:45 Laboratory Results - last 24 hr 10/03/25 22:23: POC Glucose 135 H 10/04/25 05:36: WBC 5.0, RBC 3.30 L, Hgb 9.3 L, Hct 27.6 L, MCV 83.6, MCH 28.2, MCHC 33.7, RDW Std Deviation 42.2, RDW Coeff of Swapnil 13.7, Plt Count 3 L*, MPV 9.1, Immature Gran % (Auto) 0.800, Neut % (Auto) 66.6, Lymph % (Auto) 18.9 L, Pine % (Auto) 13.3 H, Eos % (Auto) 0.2, Baso % (Auto) 0.2, Absolute Neuts (auto) 3.3, Absolute Lymphs (auto) 0.94, Nucleated RBC % 0, Differential Comment SCANNED, Sodium 129 L, Potassium 4.1, Chloride 96 L, Carbon Dioxide 22.9, Anion Gap 10, BUN 12, Creatinine 0.61 L, Estim Creat Clear Calc 42.90 L, Est GFR (MDRD) Non-Af 85, BUN/Creatinine Ratio 19.6, Glucose 169 H, Calcium 9.5 10/04/25 06:40: POC Glucose 176 H 10/04/25 12:24: POC Glucose 205 H Microbiology 10/02/25 18:05 Urine, Clean Catch Urine Culture - Final Klebsiella pneumoniae sp pneum
[2025-10-04] MEDS: MethylPREDNISolone Sod Succ 1,000 MG in 0.9% Normal Saline (100mL Bag) 100 ML 100 MG IV (17:21)
[2025-10-04] MEDS: Immune Globulin 5 GM 5 GM/50 ML VIAL IV (18:52)
[2025-10-04] MEDS: Immune Globulin 10 gm 10 GM/100 ML VIAL IV (19:37)
[2025-10-04] MEDS: Immune Globulin 20 gm 20 GM/200 ML VIAL IV ×2 (20:44→22:13)
[2025-10-04] MEDS: MELATONIN 10 MG TABLET PO (21:00)
[2025-10-04] MEDS: NETARSUDIL MESYLAT/LATANOPROST 2.5 ML DROPS 1 DRP OPHTHALMIC (21:01)
[2025-10-05] VITALS (19 sets, daily range): BP systolic 100–157; BP diastolic 48–103; PULSE 72–95; RESP 15–25; TEMP 36.3–36.5; O2SAT 95–100; BMI 22.5
[2025-10-05 04:31] LABS: Hematocrit 26.7 % (37-47); Hemoglobin 9.1 g/dL (12.0-15.0); Immature Granulocytes Count 0.020 X10^3/uL (0.0-0.0); Mean Corp Hgb Conc 34.1 g/dL (32-36); Mean Corpuscular Volume 84.5 fL (81-99); Mean Platelet Vol. 13.9 fl (6.2-12.0); NRBC Flagged by Analyzer 0 % (0-5); POSITIVE COUNT YES; POSITIVE DIFFERENTIAL YES; POSITIVE MORPHOLOGY YES; RBC Distribution Width CV 13.7 % (11.6-14.6); RBC Distribution Width SD 42.2 fl (35.1-43.9); Red Blood Count 3.16 M/mm3 (4.2-5.4); White Blood Count 3.2 K/mm3 (4.4-11.0)
[2025-10-05 04:41] LABS: Differential Indicated SCAN CRITERIA MET; Platelet Count 5 K/mm3 (150-450)
[2025-10-05 05:15] LABS: Anion Gap 9 (5-15); BUN 17 mg/dL (4-19); BUN/Creat Ratio 21.2 RATIO (10-20); Calcium,Total 9.3 mg/dL (7.6-11.0); Carbon Dioxide 20.5 mmol/L (21.0-32.0); Chloride 96 mmol/L (98-108); Estimated Creatinine Clearance 42.90 ml/min (50-250); Glucose 287 mg/dL (70-99); Potassium 4.4 mmol/L (3.3-5.1)
[2025-10-05 06:12] LABS: Differential Comment SCANNED
[2025-10-05 08:54] LABS: Osmolality, Serum 293 mOsm/KG (280-301)
--- NOTE | 2025-10-05 09:00 | CT_ITS ---
PROCEDURE: BIOPSY/INJ OR NEEDLE PLACEMENT 10/05/2025 REASON FOR EXAM: RULE OUT ACUTE LEUKEMIA OR MDS TECHNIQUE: Procedure Code: CTBX Modality: CT Procedure: CT-guided left iliac bone marrow biopsy. One or more dose reduction techniques were used (e.g., Automated exposure control, adjustment of the mA and/or kV according to patient size, use of iterative reconstruction technique. RADIATION DOSE SUMMARY: DLP: 407.51 mGycm COMPARISON: None. FINDINGS: Conscious sedation was employed for this procedure, with start time of 1012 hours and stop time of 1027 hours. Intravenous administration of a total of 1 mg Versed was employed. Procedure: Following informed consent, an using standard sterile technique, a CT-guided left iliac bone marrow biopsy was performed. 2% lidocaine local anesthesia was followed by a small skin thony and then placement of a 10 cm BD Trek 11 gauge core biopsy system into the left iliac bone via a posterior oblique approach. Approximately 5 mL bone marrow fluid in a standard syringe and 5 mL bone mineral fluid in a heparinized syringe were then obtained. A core biopsy specimen was then obtained, followed by removal of the device. Hemostasis was then achieved. No complication was encountered, and the patient left the department in good condition without significant complaint. CT/Biopsy/Inj or Needle Placement IMPRESSION: Successful left iliac bone marrow biopsy. Laboratory results pending. Reading Location: [place] [address]
[2025-10-05] MEDS: 0.9% Normal Saline (250mL Bag) 250 ML 15 ML IV (10:00)
[2025-10-05] MEDS: Midazolam 2 MG/2 ML Syringe IV (10:12)
[2025-10-05] MEDS: Lidocaine 2% (20 ml mdv) 20 ML Vial INFILT (10:16)
[2025-10-05 11:45] LABS: Pathology Sent to OSU SEE PATHOLOGY REPORT
[2025-10-05] MEDS: Dorzolamide HCL/Timolol 10 ml Bottle 1 DRP EACH EYE ×2 (11:52→20:55)
[2025-10-05] MEDS: MethylPREDNISolone Sod Succ 1,000 MG in 0.9% Normal Saline (100mL Bag) 100 ML 100 MG IV (12:12)
[2025-10-05] MEDS: Immune Globulin 5 GM 5 GM/50 ML VIAL IV (13:53)
--- NOTE | 2025-10-05 14:09 | CASEMGMT ---
Tertiary Insurance review for hospitals In-network with [employer] insurance if transfer is recommended is as follows: [facility], [facility], [place], [facility], , [place], [facility], and [place]. Joy Mcfarland, Discharge Planning Asst.
[2025-10-05 14:23] LABS: Creatinine, Urine (random) 77.70 mg/dL (28.00-217.00); Urea Nitrogen, Urine 738 mg/dL (NO RANGE EST.)
[2025-10-05] MEDS: Immune Globulin 10 gm 10 GM/100 ML VIAL IV (14:50)
[2025-10-05 15:29] LABS: Osmolality, Urine 664 mOsm/KG
[2025-10-05] MEDS: Immune Globulin 20 gm 20 GM/200 ML VIAL IV ×2 (16:13→17:45)
[2025-10-05 16:40] LABS: Hematocrit 24.7 % (37-47); Hemoglobin 8.4 g/dL (12.0-15.0); Immature Granulocytes Count 0.020 X10^3/uL (0.0-0.0); Mean Corp Hgb Conc 34.0 g/dL (32-36); Mean Corpuscular Volume 84.9 fL (81-99); Mean Platelet Vol. 13.0 fl (6.2-12.0); NRBC Flagged by Analyzer 0 % (0-5); POSITIVE COUNT YES; POSITIVE DIFFERENTIAL YES; RBC Distribution Width CV 13.7 % (11.6-14.6); RBC Distribution Width SD 42.6 fl (35.1-43.9); Red Blood Count 2.91 M/mm3 (4.2-5.4); White Blood Count 3.6 K/mm3 (4.4-11.0)
[2025-10-05 17:07] LABS: Platelet Count 9 K/mm3 (150-450)
--- NOTE | 2025-10-05 17:20 | PN.HOSP_ITS ---
Reason for Visit Chief Complaint: Epistaxis Subjective Subjective Patient evaluated with family members at bedside, feels like she has a little phlegm in her throat but does not necessarily have any other new or acute complaints Objective Data Objective Data Vital Signs: Vital Signs Temp Pulse Resp BP Pulse Ox O2 Del Method 97.5 F L 85 18 114/85 H 96 Room Air 10/05/25 11:36 10/05/25 15:42 10/05/25 15:42 10/05/25 15:42 10/05/25 15:42 10/05/25 15:42 Oxygen Delivery Method Room Air Weight: 61.4 kg Body Mass Index (BMI) 22.5 Intake & Output: Intake and Output for Last 24 Hours 10/03/25 10/04/25 10/05/25 23:59 23:59 23:59 Intake Total 1914.75 / 1914.75 1377.00 / 1377.00 414.67 / 414.67 Output Total 1400 / 2150 2450 / 2450 Balance 514.75 / -235.25 -1073.00 / -1073.00 414.67 / 414.67 Lab / Micro Data 10/05/25 15:59 10/05/25 04:01 Labs: Laboratory Results - last 24 hr 10/05/25 04:01: WBC 3.2 L, RBC 3.16 L, Hgb 9.1 L, Hct 26.7 L, MCV 84.5, MCH 28.8, MCHC 34.1, RDW Std Deviation 42.2, RDW Coeff of Swapnil 13.7, Plt Count 5 L*, MPV 13.9 H, Immature Gran % (Auto) 0.600, Neut % (Auto) 76.5 H, Lymph % (Auto) 16.3 L, Phillips % (Auto) 6.6, Eos % (Auto) 0.0, Baso % (Auto) 0.0, Absolute Neuts (auto) 2.5, Absolute Lymphs (auto) 0.52 L, Nucleated RBC % 0, Differential Comment SCANNED, Atypical Lymphocytes 1+, Sodium 126 L, Potassium 4.4, Chloride 96 L, Carbon Dioxide 20.5 L, Anion Gap 9, BUN 17, Creatinine 0.78, Estim Creat Clear Calc 42.90 L, Est GFR (MDRD) Non-Af 73, BUN/Creatinine Ratio 21.2 H, G lucose 287 H, Serum Osmolality 293, Calcium 9.3 10/05/25 12:15: POC Glucose 217 H 10/05/25 13:46: Urine Osmolality 664, Ur Random Sodium 44, Urine Creatinine 77.70, Urine Potassium 54.6, Urine Chloride < 20, Urine Urea Nitrogen 738 10/05/25 15:59: WBC 3.6 L, RBC 2.91 L, Hgb 8.4 L, Hct 24.7 L, MCV 84.9, MCH 28.9, MCHC 34.0, RDW Std Deviation 42.6, RDW Coeff of Swapnil 13.7, Plt Count 9 L*, MPV 13.0 H, Immature Gran % (Auto) 0.600, Neut % (Auto) 78.2 H, Lymph % (Auto) 12.3 L, Phillips % (Auto) 8.9, Eos % (Auto) 0.0, Baso % (Auto) 0.0, Absolute Neuts (auto) 2.8, Absolute Lymphs (auto) 0.44 L, Nucleated RBC % 0 10/05/25 16:08: POC Glucose 250 H Micro: Microbiology 10/02/25 18:05 Urine, Clean Catch Urine Culture - Final Klebsiella pneumoniae sp pneum Radiography Diagnostic Testing: Radiology Impression Biopsy CT 10/05/25 09:00 IMPRESSION: Successful left iliac bone marrow biopsy. Laboratory results pending. Reading Location: [place] [id number] Physical Exam Narrative General: Alert, no acute distress HEENT: Atraumatic, has packing in left nare Eyes: Anicteric, normal conjunctiva, extraocular movements grossly intact Neck: Supple Respiratory: No overt wheezes or rhonchi, no acute respiratory distress, occasionally clears phlegm Cardiovascular: Regular rate and rhythm GI: Soft, nontender, nondistended Extremities: No significant peripheral pitting edema Musculoskeletal: Moving all extremities Neuro: No overt focal neurological deficits Psych: Cooperative Assessment & Plan Assessment/Plan (1) Epistaxis: (2) Abnormal finding on urinalysis: (3) Generalized weakness: PLAN: Plan # Pancytopenia - Patient presented yesterday to the ED with a white count of 2.5, hemoglobin of 6.1 and a platelet count of 7, earlier in the month had a white count of 2.4, hemoglobin 8.8 and a platelet count of 25 - In the ED she was given platelets and 2 units packed red blood cells, this a.m. hemoglobin 9.1 but platelet count 5 - Hematology consulted, discussed with them, flow cytometry and bone marrow biopsy recommended, orders placed for these, recommended to transfuse platelets if platelets are below 5 or if patient bleeding, given platelets are at 5 and she still had some oozing around her packing more platelets were ordered, repeat in the a.m. - Further management pending workup -10/04: White count 5 today, hemoglobin 9.3, platelets of 3. Further platelet transfusion ordered. Bone marrow biopsy scheduled for the a.m., will type and hold platelets to be given before the bone marrow biopsy. Discussed this and the reason for this at length with patient and family members at bedside and they verbalized their understanding. Discussed the low platelet count and the implications of that and that there are increased risks of bleeding with procedures but that this is the next step if we are pursuing the diagnosis and management. Did discuss the option of palliative measures and treating patient symptomatically while not pursuing further testing and diagnosis however patient and her family members would like to proceed with bone marrow biopsy. Discussed that flow cytometry was already sent off. Further recommendations pending additional workup. Discussed hematology that bone marrow biopsy would be tomorrow. -10/05: Patient status post bone marrow biopsy and tolerated this well, this a.m. platelet count 5 which is the first positive trend since presentation. She received 2 doses of IVIG and 2 doses of high-dose methylprednisone after I discussed with Dr. De La Rosa yesterday. Awaiting further results # Epistaxis - Rhino Rocket placed in left nare - Will keep in place for now, a.m. platelets 5 - Depending on how long patient needs admitted may depend on need for ENT involvement if platelets remain low and patient has further bleeding - At this time however will keep in place and monitor -10/04: Platelets further decreased today, pending a.m. labs and clinical status we may need ENT consult due to concerns the patient will have bleeding when the nasal packing is removed but it cannot stay in for a prolonged period of time EITHER due to infection concerns -10/05: Discussed with ENT on-call, given patient's low platelet count there is concerned that removing the packing would lead to significant bleeding and that even intervention in the OR here would not be able to correct this, it was recommended to keep this current packing in until platelets are at least 20. After discussion, it was recommended that patient be transferred to a tertiary facility due to her risk of bleeding with her low platelets. Repeated labs and platelet count which increased to 9. Discussed recommendation with patient and she said she would like me to speak with her daughter. Discussed with her daughter who is her medical power of prosecuting attorney and who the patient deferred decision to. Discussed that transfer can be initiated tonight and the rationale behind this. They would like to avoid transfer if at all possible given limitations with mobility and distance patient would need to be transferred. Discussed risks of bleeding, including spontaneous bleeding, with potential limited interventions at our facility if she remained here and she verbalized her understanding. Did discuss that platelets up trended further today but are still very low and in a range that could mean spontaneous bleeding, will see a.m. platelets, if they continue to uptrend can revisit staying in our facility versus transfer. If platelets decrease or do not improve would likely need to move forward with initiating transfer tomorrow, patient's daughter agreeable. Again reiterated for completeness sake the recommendation and the risks of staying (like life-threatening bleeding with minimal intervention options) versus transfer and she does understand these. If possible patient would likely benefit remaining in our facility with family nearby and may decrease chances of delirium compared to transfer to a new place entirely however based on a.m. labs if it is necessary to transfer patient for her own health and wellbeing will do so # Suspected UTI–confirmed Klebsiella UTI - Dysuria and abnormal UA - Preliminary culture growing gram-negative rods greater than 100,000 - Continue Rocephin -10/04: Klebsiella pneumonia UTI, changed to Keflex with stop date -10/05: Continue present management #Type 2 diabetes mellitus -Glucose checks and sliding scale insulin -10/04: Glucose 205 this afternoon, patient refusing sliding scale insulin and overall glucoses have been in the 100s, given she is refusing this and she has very low platelets would like to minimize sticks if possible, will DC for now and monitor BMP glucoses or glucoses as needed -10/05: Has had uptrending glucose due to patient receiving steroids, glucose checks reinitiated with sliding scale insulin # Hyponatremia -10/05: Sodium 132 on presentation, yesterday 129, day 126 however when corrected for glucose which is elevated now that she had steroids this actually corrects to 129, will continue to monitor #Hypertension - Losartan continued -10/04: Blood pressure variable, will continue present medications and monitor -10/05: Most recent BP 114/85, will continue current management # History of RA - Methotrexate on hold on an outpatient basis due to concern that this may have led to some of the blood dyscrasias - Patient is on leucovorin, this has been continued -10/04: Continue leucovorin and holding methotrexate -10/05: Continue present management, will need to follow-up outpatient for further management on discharge #DVT ppx: SCDs Shirin Saucedo MD Charges/Coding Visit Charges Inpatient E&M: 38914 Subs Hosp L2
[2025-10-05] MEDS: MELATONIN 10 MG TABLET PO (21:03)
[2025-10-05] MEDS: 0.9% Saline Lock 10 ML Syringe IV (21:05)
[2025-10-05] MEDS: NETARSUDIL MESYLAT/LATANOPROST 2.5 ML DROPS 1 DRP OPHTHALMIC (22:48)
[2025-10-06] MEDS: 0.9% Saline Lock 10 ML Syringe IV (02:00)
[2025-10-06 02:23] VITALS: BP 117/72; PULSE 71; RESP 19; TEMP 36.3; O2SAT 99
[2025-10-06 02:24] VITALS: O2SAT 99
[2025-10-06 05:46] LABS: Hematocrit 22.6 % (37-47); Hemoglobin 7.6 g/dL (12.0-15.0); Immature Granulocytes Count 0.020 X10^3/uL (0.0-0.0); Mean Corp Hgb Conc 33.6 g/dL (32-36); Mean Corpuscular Volume 84.6 fL (81-99); NRBC Flagged by Analyzer 0 % (0-5); POSITIVE COUNT YES; POSITIVE DIFFERENTIAL YES; RBC Distribution Width CV 13.8 % (11.6-14.6); RBC Distribution Width SD 42.7 fl (35.1-43.9); Red Blood Count 2.67 M/mm3 (4.2-5.4); White Blood Count 4.3 K/mm3 (4.4-11.0)
[2025-10-06 05:53] LABS: Platelet Count 6 K/mm3 (150-450)
[2025-10-06 06:00] VITALS: BMI 22.6
[2025-10-06 06:03] LABS: Anion Gap 8 (5-15); BUN 28 mg/dL (4-19); BUN/Creat Ratio 35.3 RATIO (10-20); Calcium,Total 9.2 mg/dL (7.6-11.0); Carbon Dioxide 21.0 mmol/L (21.0-32.0); Chloride 97 mmol/L (98-108); Estimated Creatinine Clearance 42.90 ml/min (50-250); Glucose 226 mg/dL (70-99); Potassium 4.4 mmol/L (3.3-5.1)
[2025-10-06 08:30] VITALS: BP 142/63; PULSE 79; RESP 16; TEMP 36.8; O2SAT 94
[2025-10-06] MEDS: Dorzolamide HCL/Timolol 10 ml Bottle 1 DRP EACH EYE ×2 (09:15→20:39)
[2025-10-06 14:20] VITALS: BP 119/59; PULSE 91; RESP 16; TEMP 36.7; O2SAT 98
--- NOTE | 2025-10-06 17:57 | PN.HOSP_ITS ---
Reason for Visit Chief Complaint: Epistaxis Subjective Subjective Pt feeling about the same today, did have some nausea earlier but it improved with medication and hasn't recurred, no abd pain or other new or acute complaints Objective Data Objective Data Vital Signs: Vital Signs Temp Pulse Resp BP Pulse Ox O2 Del Method 98.0 F 91 16 119/59 L 98 Room Air 10/06/25 14:20 10/06/25 14:20 10/06/25 14:20 10/06/25 14:20 10/06/25 14:20 10/06/25 14:20 Oxygen Delivery Method Room Air Weight: 61.8 kg Body Mass Index (BMI) 22.6 Intake & Output: Intake and Output for Last 24 Hours 10/04/25 10/05/25 10/06/25 23:59 23:59 23:59 Intake Total 1377.00 / 1377.00 979.25 / 979.25 150 / 150 Output Total 2450 / 2450 Balance -1073.00 / -1073.00 979.25 / 979.25 150 / 150 Lab / Micro Data 10/06/25 05:10 10/06/25 05:10 Labs: Laboratory Results - last 24 hr 10/05/25 21:03: POC Glucose 341 H 10/06/25 05:10: WBC 4.3 L, RBC 2.67 L, Hgb 7.6 L, Hct 22.6 L, MCV 84.6, MCH 28.5, MCHC 33.6, RDW Std Deviation 42.7, RDW Coeff of Swapnil 13.8, Plt Count 6 L*, MPV TNP, Immature Gran % (Auto) 0.500, Neut % (Auto) 77.2 H, Lymph % (Auto) 12.9 L, [place] % (Auto) 9.4, Eos % (Auto) 0.0, Baso % (Auto) 0.0, Absolute Neuts (auto) 3.3, Absolute Lymphs (auto) 0.55 L, Nucleated RBC % 0, Sodium 126 L, Potassium 4.4, Chloride 97 L, Carbon Dioxide 21.0, Anion Gap 8, BUN 28 H, Creatinine 0.80, Estim Creat Clear Calc 42.90 L, Est GFR (MDRD) Non-Af 70, BUN/Creatinine Ratio 35.3 H, Glucose 226 H, Calcium 9.2 10/06/25 06:58: POC Glucose 204 H 10/06/25 11:34: POC Glucose 227 H 10/06/25 16:27: POC Glucose 202 H Micro: Microbiology 10/02/25 18:05 Urine, Clean Catch Urine Culture - Final Klebsiella pneumoniae sp pneum Physical Exam Narrative General: Alert, no acute distress HEENT: Atraumatic, has packing in left nare Eyes: Anicteric, normal conjunctiva, extraocular movements grossly intact Neck: Supple Respiratory: No overt wheezes or rhonchi, no acute respiratory distress Cardiovascular: Regular rate and rhythm GI: Soft, nontender, nondistended Extremities: No significant peripheral pitting edema Musculoskeletal: Moving all extremities Neuro: No overt focal neurological deficits Psych: Cooperative Assessment & Plan Assessment/Plan (1) Epistaxis: (2) Abnormal finding on urinalysis: (3) Generalized weakness: PLAN: Plan # Pancytopenia - Patient presented yesterday to the ED with a white count of 2.5, hemoglobin of 6.1 and a platelet count of 7, earlier in the month had a white count of 2.4, hemoglobin 8.8 and a platelet count of 25 - In the ED she was given platelets and 2 units packed red blood cells, this a.m. hemoglobin 9.1 but platelet count 5 - Hematology consulted, discussed with them, flow cytometry and bone marrow biopsy recommended, orders placed for these, recommended to transfuse platelets if platelets are below 5 or if patient bleeding, given platelets are at 5 and she still had some oozing around her packing more platelets were ordered, repeat in the a.m. - Further management pending workup -10/04: White count 5 today, hemoglobin 9.3, platelets of 3. Further platelet transfusion ordered. Bone marrow biopsy scheduled for the a.m., will type and hold platelets to be given before the bone marrow biopsy. Discussed this and the reason for this at length with patient and family members at bedside and they verbalized their understanding. Discussed the low platelet count and the implications of that and that there are increased risks of bleeding with procedures but that this is the next step if we are pursuing the diagnosis and management. Did discuss the option of palliative measures and treating patient symptomatically while not pursuing further testing and diagnosis however patient and her family members would like to proceed with bone marrow biopsy. Discussed that flow cytometry was already sent off. Further recommendations pending additional workup. Discussed hematology that bone marrow biopsy would be tomorrow. -10/05: Patient status post bone marrow biopsy and tolerated this well, this a.m. platelet count 5 which is the first positive trend since presentation. She received 2 doses of IVIG and 2 doses of high-dose methylprednisone after I discussed with Dr. De La Rosa yesterday. Awaiting further results -10/06: Platelet count decreased back to 6, discussed with patient with her daughter the recommendation for transfer. [facility] did not answer multiple phone calls, [facility] said that they do not currently have any beds, family did want me to inquire about transfer to , unfortunately unable to transfer to their preferred however next closest is [facility], pt was accepted by Dr. Gama, hospitalist, and is awaiting transfer # Epistaxis - Rhino Rocket placed in left nare - Will keep in place for now, a.m. platelets 5 - Depending on how long patient needs admitted may depend on need for ENT involvement if platelets remain low and patient has further bleeding - At this time however will keep in place and monitor -10/04: Platelets further decreased today, pending a.m. labs and clinical status we may need ENT consult due to concerns the patient will have bleeding when the nasal packing is removed but it cannot stay in for a prolonged period of time EITHER due to infection concerns -10/05: Discussed with ENT on-call, given patient's low platelet count there is concerned that removing the packing would lead to significant bleeding and that even intervention in the OR here would not be able to correct this, it was recommended to keep this current packing in until platelets are at least 20. After discussion, it was recommended that patient be transferred to a tertiary facility due to her risk of bleeding with her low platelets. Repeated labs and platelet count which increased to 9. Discussed recommendation with patient and she said she would like me to speak with her daughter. Discussed with her daughter who is her medical power of transactional attorney and who the patient deferred decision to. Discussed that transfer can be initiated tonight and the rationale behind this. They would like to avoid transfer if at all possible given limitations with mobility and distance patient would need to be transferred. Discussed risks of bleeding, including spontaneous bleeding, with potential limited interventions at our facility if she remained here and she verbalized her understanding. Did discuss that platelets up trended further today but are still very low and in a range that could mean spontaneous bleeding, will see a.m. platelets, if they continue to uptrend can revisit staying in our facility versus transfer. If platelets decrease or do not improve would likely need to move forward with initiating transfer tomorrow, patient's daughter agreeable. Again reiterated for completeness sake the recommendation and the risks of staying (like life-threatening bleeding with minimal intervention options) versus transfer and she does understand these. If possible patient would likely benefit remaining in our facility with family nearby and may decrease chances of delirium compared to transfer to a new place entirely however based on a.m. labs if it is necessary to transfer patient for her own health and wellbeing will do so -10/06: Continue to leave and packing, patient be transferred # Suspected UTI–confirmed Klebsiella UTI - Dysuria and abnormal UA - Preliminary culture growing gram-negative rods greater than 100,000 - Continue Rocephin -10/04: Klebsiella pneumonia UTI, changed to Keflex with stop date -10/05: Continue present management -10/06: Does not presently report any symptoms, continue Keflex #Type 2 diabetes mellitus -Glucose checks and sliding scale insulin -10/04: Glucose 205 this afternoon, patient refusing sliding scale insulin and overall glucoses have been in the 100s, given she is refusing this and she has very low platelets would like to minimize sticks if possible, will DC for now and monitor BMP glucoses or glucoses as needed -10/05: Has had uptrending glucose due to patient receiving steroids, glucose checks reinitiated with sliding scale insulin -10/06: Glucose 202, should start coming down on that patient longer on steroids, continue present management # Hyponatremia -10/05: Sodium 132 on presentation, yesterday 129, day 126 however when corrected for glucose which is elevated now that she had steroids this actually corrects to 129, will continue to monitor -10/06: Unchanged #Hypertension - Losartan continued -10/04: Blood pressure variable, will continue present medications and monitor -10/05: Most recent BP 114/85, will continue current management -10/06: Blood pressure still stable, no new process Chronic medical problems and/or problems not being actively addressed during today's encounter: # History of RA - Methotrexate on hold on an outpatient basis due to concern that this may have led to some of the blood dyscrasias - Patient is on leucovorin, this has been continued -10/04: Continue leucovorin and holding methotrexate -10/05: Continue present management, will need to follow-up outpatient for further management on discharge #DVT ppx: SCDs Shirin Saucedo MD Time spent in the patient's overall evaluation,decision-making process, review of diagnostic data, adjustment of management, discussion with other providers, nursing nursing and ancillary staff involved in patient's care documentation, 53 Minutes Charges/Coding Visit Charges Inpatient E&M: 82777 Subs Hosp L3
--- NOTE | 2025-10-06 20:11 | NURSING ---
Pt daughter, Elzbieta updated at this time with bed assignment at [facility] [address] Room 6661. Transport arranged and pickup time estimated at 0000. Questions answered.
[2025-10-06] MEDS: NETARSUDIL MESYLAT/LATANOPROST 2.5 ML DROPS 1 DRP OPHTHALMIC (20:39)
[2025-10-06 21:00] VITALS: BP 137/59; PULSE 77; RESP 18; TEMP 36.3; O2SAT 96
--- NOTE | 2025-10-07 16:46 | DS.PCM_ITS ---
Providers Date of Admission: 10/02/25 Date of Discharge: 10/06/25 Primary Care Physician: Dr. Fitz Walters MD Consultations 10/03/25 09:16 Consult: Oncology/Hematology Routine Consulting Provider: [facility] ([facility]) Reason for Consult: pancytopenia EMERGENT Consult: No Notified: Yes Date Notified: 10/02/25 Time Notified: 20:16 Method of Notification: ED Physician Initiated 10/05/25 13:16 Consult: ENT Routine Consulting Provider: Ed Jimenez Reason for Consult: epistaxis, packing day 4, platelets 5 EMERGENT Consult: No MD Notified: Yes Date Notified: 10/05/25 Time Notified: 13:25 Method of Notification: Verbal Reason For Visit: ACUTE PANCYTOPENIA Diagnosis Discharge Diagnosis (1) Epistaxis: Status: Acute Code(s): R04.0 - Epistaxis (2) Abnormal finding on urinalysis: Status: Acute Code(s): R82.90 - Unspecified abnormal findings in urine (3) Generalized weakness: Status: Acute Code(s): R53.1 - Weakness Plan # Pancytopenia - Patient presented yesterday to the ED with a white count of 2.5, hemoglobin of 6.1 and a platelet count of 7, earlier in the month had a white count of 2.4, hemoglobin 8.8 and a platelet count of 25 - In the ED she was given platelets and 2 units packed red blood cells, this a.m. hemoglobin 9.1 but platelet count 5 - Hematology consulted, discussed with them, flow cytometry and bone marrow biopsy recommended, orders placed for these, recommended to transfuse platelets if platelets are below 5 or if patient bleeding, given platelets are at 5 and she still had some oozing around her packing more platelets were ordered, repeat in the a.m. - Further management pending workup -10/04: White count 5 today, hemoglobin 9.3, platelets of 3. Further platelet transfusion ordered. Bone marrow biopsy scheduled for the a.m., will type and hold platelets to be given before the bone marrow biopsy. Discussed this and the reason for this at length with patient and family members at bedside and they verbalized their understanding. Discussed the low platelet count and the implications of that and that there are increased risks of bleeding with procedures but that this is the next step if we are pursuing the diagnosis and management. Did discuss the option of palliative measures and treating patient symptomatically while not pursuing further testing and diagnosis however patient and her family members would like to proceed with bone marrow biopsy. Discussed that flow cytometry was already sent off. Further recommendations pending additional workup. Discussed hematology that bone marrow biopsy would be tomorrow. -10/05: Patient status post bone marrow biopsy and tolerated this well, this a.m. platelet count 5 which is the first positive trend since presentation. She received 2 doses of IVIG and 2 doses of high-dose methylprednisone after I discussed with Dr. De La Rosa yesterday. Awaiting further results -10/06: Platelet count decreased back to 6, discussed with patient with her daughter the recommendation for transfer. [facility] did not answer multiple phone calls, [facility] said that they do not currently have any beds, family did want me to inquire about transfer to , unfortunately unable to transfer to their preferred however next closest is [facility], pt was accepted by Dr. Gama, hospitalist, and is awaiting transfer # Epistaxis - Rhino Rocket placed in left nare - Will keep in place for now, a.m. platelets 5 - Depending on how long patient needs admitted may depend on need for ENT involvement if platelets remain low and patient has further bleeding - At this time however will keep in place and monitor -10/04: Platelets further decreased today, pending a.m. labs and clinical status we may need ENT consult due to concerns the patient will have bleeding when the nasal packing is removed but it cannot stay in for a prolonged period of time EITHER due to infection concerns -10/05: Discussed with ENT on-call, given patient's low platelet count there is concerned that removing the packing would lead to significant bleeding and that even intervention in the OR here would not be able to correct this, it was recommended to keep this current packing in until platelets are at least 20. After discussion, it was recommended that patient be transferred to a tertiary facility due to her risk of bleeding with her low platelets. Repeated labs and platelet count which increased to 9. Discussed recommendation with patient and she said she would like me to speak with her daughter. Discussed with her daughter who is her medical power of hot blaster and who the patient deferred decision to. Discussed that transfer can be initiated tonight and the rationale behind this. They would like to avoid transfer if at all possible given limitations with mobility and distance patient would need to be transferred. Discussed risks of bleeding, including spontaneous bleeding, with potential limited interventions at our facility if she remained here and she verbalized her understanding. Did discuss that platelets up trended further today but are still very low and in a range that could mean spontaneous bleeding, will see a.m. platelets, if they continue to uptrend can revisit staying in our facility versus transfer. If platelets decrease or do not improve would likely need to move forward with initiating transfer tomorrow, patient's daughter agreeable. Again reiterated for completeness sake the recommendation and the risks of staying (like life-threatening bleeding with minimal intervention options) versus transfer and she does understand these. If possible patient would likely benefit remaining in our facility with family nearby and may decrease chances of delirium compared to transfer to a new place entirely however based on a.m. labs if it is necessary to transfer patient for her own health and wellbeing will do so -10/06: Continue to leave and packing, patient be transferred # Suspected UTI–confirmed Klebsiella UTI - Dysuria and abnormal UA - Preliminary culture growing gram-negative rods greater than 100,000 - Continue Rocephin -10/04: Klebsiella pneumonia UTI, changed to Keflex with stop date -10/05: Continue present management -10/06: Does not presently report any symptoms, continue Keflex #Type 2 diabetes mellitus -Glucose checks and sliding scale insulin -10/04: Glucose 205 this afternoon, patient refusing sliding scale insulin and overall glucoses have been in the 100s, given she is refusing this and she has very low platelets would like to minimize sticks if possible, will DC for now and monitor BMP glucoses or glucoses as needed -10/05: Has had uptrending glucose due to patient receiving steroids, glucose checks reinitiated with sliding scale insulin -10/06: Glucose 202, should start coming down on that patient longer on steroids, continue present management # Hyponatremia -10/05: Sodium 132 on presentation, yesterday 129, day 126 however when corrected for glucose which is elevated now that she had steroids this actually corrects to 129, will continue to monitor -10/06: Unchanged #Hypertension - Losartan continued -10/04: Blood pressure variable, will continue present medications and monitor -10/05: Most recent BP 114/85, will continue current management -10/06: Blood pressure still stable, no new process Chronic medical problems and/or problems not being actively addressed during today's encounter: # History of RA - Methotrexate on hold on an outpatient basis due to concern that this may have led to some of the blood dyscrasias - Patient is on leucovorin, this has been continued -10/04: Continue leucovorin and holding methotrexate -10/05: Continue present management, will need to follow-up outpatient for further management on discharge #DVT ppx: SCDs Shirin Saucedo MD Time spent in the patient's overall evaluation,decision-making process, review of diagnostic data, adjustment of management, discussion with other providers, nursing nursing and ancillary staff involved in patient's care documentation, 53 Minutes Medications at Discharge Home Medications atorvastatin 10 mg tablet 10 mg PO QHS cholesterol 06/01/22 metformin 500 mg tablet 500 mg PO BID diabetes 06/01/22 ferrous sulfate 27 mg iron tablet 65 mg PO DAILY supplement 10/29/22 folic acid 1 mg tablet 1 mg PO BID supplement 10/29/22 losartan 25 mg tablet 25 mg PO DAILY blood pressure 10/29/22 dorzolamide 22.3 mg-timolol 6.8 mg/mL eye drops 1 drp ophthalmic (eye) BID eye health 05/10/25 netarsudil 0.02 %-latanoprost 0.005 % [facility] 1 drp ophthalmic (eye) QHS eye health 05/10/25 cyanocobalamin (vitamin B-12) 1,000 mcg tablet 1,000 mcg PO DAILY vitamin #30 tabs 07/09/25 leucovorin calcium 10 mg tablet 20 mg (2 x 10 mg) PO Q6H ANEMIA 30 days #240 tabs 09/19/25 amoxicillin 500 mg tablet 500 mg PO TID #15 tabs 10/02/25 methotrexate sodium 2.5 mg tablet 15 mg PO WE arthritis 10/02/25 Weight / BMI Weight Weight: 61.8 kg Body Mass Index (BMI) 22.6 ABG / Lab / Microbiology Data 10/06/25 05:10 10/06/25 05:10 Laboratory: Laboratory Results - last 24 hr 10/06/25 16:27: POC Glucose 202 H 10/06/25 19:43: POC Glucose 159 H Microbiology: Microbiology 10/02/25 18:05 Urine, Clean Catch Urine Culture - Final Klebsiella pneumoniae sp pneum Discharge Plan Admission Admit Date/Time: 10/02/25 21:02 Attending Provider: Shirin Saucedo Primary Care Provider: Fitz Walters Consulting Providers: Melissa Hooper; Candido Chang; Colt De La Rosa; Adam Blevins; Michael Linares; Ras Hall; Kelvin Marsh; Yoel Tierney; Felice Bearden; Kym Hu NP; Ed Jimenez Instructions Patient Instructions: Thrombocytopenia, RAD RN Bone Marrow Aspiration and Biopsy, ED Anemia, Type Not Specified (Adult), ED Epistaxis (Adult), RAD RN Procedural Sedation Additional Instructions / Restrictions: You will need to have a repeat blood count, CBC, by Dr. Fitz Walters in 5 to 7 days. Discharge Orders/Prescriptions Prescriptions: New amoxicillin 500 mg tablet 500 mg PO TID Qty: 15 0RF No Action atorvastatin 10 mg tablet 10 mg PO QHS metformin 500 mg tablet 500 mg PO BID ferrous sulfate 27 mg iron tablet 65 mg PO DAILY losartan 25 mg tablet 25 mg PO DAILY folic acid 1 mg tablet 1 mg PO BID leucovorin calcium 10 mg tablet 20 mg PO Q6H 30 Days Qty: 240 0RF dorzolamide-timolol 22.3-6.8 mg/mL drops 1 drp ophthalmic (eye) BID Rock[place] 0.02-0.005 % drops 1 drp ophthalmic (eye) QHS methotrexate sodium 2.5 mg tablet 15 mg PO WE cyanocobalamin (vitamin B-12) 1,000 mcg tablet 1,000 mcg PO DAILY Qty: 30 10RF Referrals / Follow Up: Cal Willingham MD [Med Staff - Active Staff, Ear Nose Throat (ENT)] - 3-5 Days Fitz Walters MD [Primary Care Provider, Internal Medicine] - 1 Week Disposition Disposition (needs filled in before D/C Order can be placed): [facility]
--- NOTE | 2025-10-07 16:46 | PCM.DC.SUM ---
Providers Date of Admission: 10/02/25 Date of Discharge: 10/06/25 Primary Care Physician: Dr. Fitz Walters MD Consultations 10/03/25 09:16 Consult: Oncology/Hematology Routine Consulting Provider: [facility] ([facility]) Reason for Consult: pancytopenia EMERGENT Consult: No MD Notified: Yes Date Notified: 10/02/25 Time Notified: 20:16 Method of Notification: ED Physician Initiated 10/05/25 13:16 Consult: ENT Routine Consulting Provider: Ed Jimenez Reason for Consult: epistaxis, packing day 4, platelets 5 EMERGENT Consult: No MD Notified: Yes Date Notified: 10/05/25 Time Notified: 13:25 Method of Notification: Verbal Reason For Visit: ACUTE PANCYTOPENIA Diagnosis Discharge Diagnosis (1) Epistaxis: Status: Acute Code(s): R04.0 - Epistaxis (2) Abnormal finding on urinalysis: Status: Acute Code(s): R82.90 - Unspecified abnormal findings in urine (3) Generalized weakness: Status: Acute Code(s): R53.1 - Weakness (4) Pancytopenia: Status: Acute Code(s): D61.818 - Other pancytopenia Plan # Pancytopenia # Epistaxis #Klebsiella UTI #Type 2 diabetes mellitus # Hyponatremia #Hypertension # History of RA Medications at Discharge Home Medications atorvastatin 10 mg tablet 10 mg PO QHS cholesterol 06/01/22 metformin 500 mg tablet 500 mg PO BID diabetes 06/01/22 ferrous sulfate 27 mg iron tablet 65 mg PO DAILY supplement 10/29/22 folic acid 1 mg tablet 1 mg PO BID supplement 10/29/22 losartan 25 mg tablet 25 mg PO DAILY blood pressure 10/29/22 dorzolamide 22.3 mg-timolol 6.8 mg/mL eye drops 1 drp ophthalmic (eye) BID eye health 05/10/25 netarsudil 0.02 %-latanoprost 0.005 % [facility] 1 drp ophthalmic (eye) QHS eye health 05/10/25 cyanocobalamin (vitamin B-12) 1,000 mcg tablet 1,000 mcg PO DAILY vitamin #30 tabs 07/09/25 leucovorin calcium 10 mg tablet 20 mg (2 x 10 mg) PO Q6H ANEMIA 30 days #240 tabs 09/19/25 amoxicillin 500 mg tablet 500 mg PO TID #15 tabs 10/02/25 methotrexate sodium 2.5 mg tablet 15 mg PO WE arthritis 10/02/25 Hospital Course Summary of Care Provided Minutes Spent on Discharge: 42 Hospital Course: 89-year-old female with RA, recently found pancytopenia, diabetes, hypertension presented to [facility] ED 10/02/2025 due to a nosebleed. Rhino Rocket was placed but given a platelet count of 7 hospitalist contacted for admission. In the ED she also required 2 needs packed red blood cells due to a hemoglobin of 6.1. Hematology consulted and flow cytometry and bone marrow biopsy ordered. Platelets remained low, discussed with oncology and Karo tried to give IVIG and steroids to see if this helped, did not seem to impact platelet count. Discussed with ENT on-call due to her continued nasal packing due to her nosebleed and further planning given platelets remain low. They advise given patient's complex nature with unclear underlying etiology of thrombocytopenia and lack of improvement even with platelet transfusion that patient be transferred to a tertiary care facility. Patient and family in agreement. Patient discharged to [facility] on 10/06/2025. Physical Exam Narrative General: Alert, no acute distress HEENT: Atraumatic, has packing in left nare Eyes: Anicteric, normal conjunctiva, extraocular movements grossly intact Neck: Supple Respiratory: No overt wheezes or rhonchi, no acute respiratory distress Cardiovascular: Regular rate and rhythm GI: Soft, nontender, nondistended Extremities: No significant peripheral pitting edema Musculoskeletal: Moving all extremities Neuro: No overt focal neurological deficits Psych: Cooperative Weight / BMI Weight Weight: 61.8 kg Body Mass Index (BMI) 22.6 ABG / Lab / Microbiology Data 10/06/25 05:10 10/06/25 05:10 Laboratory: Laboratory Results - last 24 hr 10/06/25 19:43: POC Glucose 159 H Microbiology: Microbiology 10/02/25 18:05 Urine, Clean Catch Urine Culture - Final Klebsiella pneumoniae sp pneum D/C Instructions DC O2, CPAP, BIPAP Needs Home O2 Discharge instructions: No Meaningful Use Info Meaningful Use Meaningful Use Diagnoses (Choose all that apply): None applicable Discharge Plan Admission Admit Date/Time: 10/02/25 21:02 Attending Provider: Shirin Saucedo Primary Care Provider: Fitz Walters Consulting Providers: Melissa Hooper; Candido Chang; Colt De La Rosa; Adam Blevins; Michael Linares; Ras Hall; Kelvin Marsh; Yoel Tierney; Felice Bearden; Kym Hu [employer]IN APPLICATION SPECIALIST; Ed Jimenez Instructions Patient Instructions: Thrombocytopenia, RAD RN Bone Marrow Aspiration and Biopsy, ED Anemia, Type Not Specified (Adult), ED Epistaxis (Adult), RAD RN Procedural Sedation Additional Instructions / Restrictions: You will need to have a repeat blood count, CBC, by Dr. Fitz Walters in 5 to 7 days. Discharge Orders/Prescriptions Prescriptions: New amoxicillin 500 mg tablet 500 mg PO TID Qty: 15 0RF No Action atorvastatin 10 mg tablet 10 mg PO QHS metformin 500 mg tablet 500 mg PO BID ferrous sulfate 27 mg iron tablet 65 mg PO DAILY losartan 25 mg tablet 25 mg PO DAILY folic acid 1 mg tablet 1 mg PO BID leucovorin calcium 10 mg tablet 20 mg PO Q6H 30 Days Qty: 240 0RF dorzolamide-timolol 22.3-6.8 mg/mL drops 1 drp ophthalmic (eye) BID Rocklatan 0.02-0.005 % drops 1 drp ophthalmic (eye) QHS methotrexate sodium 2.5 mg tablet 15 mg PO WE cyanocobalamin (vitamin B-12) 1,000 mcg tablet 1,000 mcg PO DAILY Qty: 30 10RF Referrals / Follow Up: Cal Willingham MD [Med Staff - Active Staff, Ear Nose Throat (ENT)] - 3-5 Days Fitz Walters MD [Primary Care Provider, Internal Medicine] - 1 Week Disposition Disposition (needs filled in before D/C Order can be placed): Acute Care Hospital Charges/Coding Visit Charges Inpatient E&M: 54897 Disch Hosp >30min
[2025-10-09 08:43] LABS: Bone Marrow Aspiraton SEE PATHOLOGY REPORT
== END 2025-10-06 22:39 | disposition short-term general hospital (02) | DRG 809 ==
LOC: ED 20:02 → PCU 21:14
PROVIDERS: Admitting Provider Internal Medicine; Emergency Provider Emergency Medicine; PCP Internal Medicine; Visit Provider Internal Medicine
DX: D61.810 Antineoplastic chemotherapy induced pancytopenia (principal); E87.1 Hypo-osmolality and hyponatremia; C92.00 Acute myeloblastic leukemia, not having achieved remission; D69.3 Immune thrombocytopenic purpura; E87.21 Acute metabolic acidosis; N39.0 Urinary tract infection, site not specified; B96.1 Klebsiella pneumoniae [K. pneumoniae] as the cause of diseases classified elsewhere; Z66 Do not resuscitate; E11.9 Type 2 diabetes mellitus without complications; M06.9 Rheumatoid arthritis, unspecified; I10 Essential (primary) hypertension; E78.5 Hyperlipidemia, unspecified; E78.1 Pure hyperglyceridemia; R04.0 Epistaxis; Z79.84 Long term (current) use of oral hypoglycemic drugs; Z79.899 Other long term (current) drug therapy; Z86.39 Personal history of other endocrine, nutritional and metabolic disease; Z87.891 Personal history of nicotine dependence
CPT/HCPCS: 36415; 77012; 80048; 80053; 81001; 82436; 82570; 82962; 83605; 83735; 83930; 83935; 84100; 84133; 84300; 84540; 85025; 85610; 85652; 86140; 86850; 86900; 86901; 86965; 87077; 87086; 87088; 87186; 93005; 94640; 94668; 97110; 97116; 97162; 97166; 97530; 97535; 99156; 99252; 99285; P9016; P9035; A4216; G0463; J1568; J2405; J2919